=== PATIENT | male | born 1965 | race African-American/Black ===

== ENCOUNTER 2017-08-16 21:39 | Emergency (ER) | payer OTHER ==
--- OUTSIDE RECORDS SUMMARY | 2017-08-16 21:41 | XMS REPORT | Clinical Summary ---
:1965 Author Organization [facility] Address [address] [place] [id number] Phone Care Team Providers Name Role Phone Unavailable Primary Care Provider Unavailable Allergies No Known Allergies Current Medications Not on file Active Problems Not on file Family History Medical History Relation Name Comments Hypertension Father Heart disease Mother Hypertension Mother Diabetes Sister Relation Name Status Comments Father Mother Sister Social History Tobacco Use Types Packs/Day Years Used Date Current Some Day Smoker Alcohol Use Drinks/Week oz/Week Comments No Sex Assigned at Date Recorded Not on file Last Filed Vital Signs Not on file Plan of Treatment Not on file Results Not on fileafter 08/15/2016
--- OUTSIDE RECORDS SUMMARY | 2017-08-16 21:41 | XMS REPORT | Clinical Summary ---
:1965 Author Organization [facility] Address [address] [place] [address] Care Team Providers Name Role Phone Juan Klein MD Primary Care Provider Allergies Not on File Current Medications Not on file Active Problems Not on file Encounters Date Type Specialty Care Team Description 04/23/2017 Lab Lab Juan Klein MD Kidney replaced by transplant ( Primary Dx); Anemia of chronic renal failure, unspecified CKD stage; Hypermagnesemia; Proteinuria, unspecified type; Essential hypertension, malignant; Chronic kidney disease, stage III (moderate); Disorder of phosphorus metabolism 04/23/2017 Abstract Transplant Pat Ferrera RN 2017 Documentation Transplant Nae Posey Kidney Follow-up ( [facility] 20 year TRF ) 12/18/2016 Lab Lab Juan Klein MD Chronic kidney disease, stage III (moderate) (Primary Dx); Essential hypertension, malignant; Proteinuria; Disorder of phosphorus metabolism; Familial lipoprotein deficiency; Hyperkalemia; Kidney replaced by transplant after 08/15/2016 Social History Tobacco Use Types Packs/Day Years Used Date Never Assessed Sex Assigned at Date Recorded Not on file Last Filed Vital Signs Not on file Plan of Treatment Health Maintenance Due Date Last Done Comments COLONOSCOPY 02/28/2016 SHINGRIX VACCINE (#1) 02/28/2016 INFLUENZA VACCINE 11/11/2017 Results Urinalysis screen and microscopy, with reflex to culture (04/23/2017 9:26 AM) Only the most recent of2 resultswithin the time period is included. Component Value Ref Range Specimen site Clean catch Color, UA Straw Appearance, UA Clear Specific gravity, UA 1.023 1.001 - 1.035 pH, UA 6.0 5.0 - 8.5 Protein, UA 3+ (A) Negative Glucose, UA Negative Negative Ketones, UA Negative Negative Bilirubin, UA Negative Negative Blood, UA Moderate (A) Negative Nitrite, UA Negative Negative Urobilinogen, UA <2.0 <2.0 Leukocyte esterase, UA Negative Negative Epithelial cells, UA <1 /HPF WBC, UA 1 0 - 1 /HPF RBC, UA 23 (H) 0 - 1 /HPF Bacteria, UA Few None seen Yeast, UA Few (A) Yeast with pseudohyphae, UA None seen Specimen Performing Laboratory Urine [facility] OF [facility]OMIC MEDICINE [address] [place] [id number] Estimated GFR (04/23/2017 9:26 AM)Only the most recent of2 resultswithin the time period is included. Component Value Ref Range GFR Non Af Amer 79 mL/min/1.73 m2 GFR Af Amer >90 mL/min/1.73 m2 Comment: Chronic kidney disease: <60 mL/min/1.73m2 Kidney failure: <15 mL/min/1.73m2 The estimated GFR is calculated from the IDMS-traceable Modification of Diet in Renal Disease Equation. The accuracy of the calculation is poor when the creatinine is normal. Calculated values >90 mL/min/1.73m2 are not reported. This equation has not been validated in children (<18 years), women, the elderly (>70 years), or ethnic groups other than Caucasians and Americans. Specimen Performing Laboratory Plasma specimen [facility] [address] [address] Cyclosporine A level (04/23/2017 9:26 AM)Only the most recent of2 resultswithin the time period is included. Component Value Ref Range Cyclosporine <30 ng/mL Comment: Unless administered by continuous IV drip, collect a purple top tube just before the next dose. Therapeutic range of approximately 100-500 varies mainly with type of transplant, use of other immunosuppressive agents, and evidence of toxicity or rejection. Test performed using [employer] chemiluminescent microparticle immunoassay for Cyclosporine on the BRAILLE TEACHER i System. Specimen Performing Laboratory Blood [facility] OF PATHOLOG[facility] GENOMIC MEDICINE [address] [place] [id number] Protein, urine, random (04/23/2017 9:26 AM)Only the most recent of2 resultswithin the time period is included. Component Value Ref Range Protein, urine random 201 mg/dL Specimen Performing Laboratory Urine [facility] [address] [place] [address] Creatinine level, urine, random (04/23/2017 9:26 AM)Only the most recent of2 resultswithin the time period is included. Component Value Ref Range Creatinine, urine, random 158 mg/dL Specimen Performing Laboratory Urine [facility] GENOMIC [facility]ICINE [address] [place] [address] CBC with platelet and differential (04/23/2017 9:26 AM)Only the most recent of2 resultswithin the time period is included. Component Value Ref Range WBC 9.75 4.50 - 11.00 k/uL RBC 4.57 4.40 - 6.00 m/uL HGB 14.3 14.0 - 18.0 g/dL HCT 42.7 41.0 - 51.0 % MCV 93.4 82.0 - 100.0 fL MCH 31.3 27.0 - 34.0 pg MCHC 33.5 31.0 - 37.0 g/dL RDW - SD 41.2 37.0 - 55.0 fL MPV 9.0 8.8 - 13.2 fL Platelet count 240 150 - 400 k/uL Nucleated RBC 0.00 /100 WBC Neutrophils 58.6 39.0 - 69.0 % Lymphocytes 29.5 25.0 - 45.0 % Monocytes 7.8 0.0 - 10.0 % Eosinophils 3.2 0.0 - 5.0 % Basophils 0.7 0.0 - 1.0 % Immature granulocytes 0.2Comment: "Immature granulocytes" 0.0 - 1.0 % (promyelocytes, myelocytes, metamyelocytes) Specimen Performing Laboratory Blood [facility] PATH[facility] GENOM[facility] MEDICINE [address] [place] [id number] Urine culture (04/23/2017 9:26 AM)Only the most recent of2 resultswithin the time period is included. Component Value Ref Range Urine culture SEE COMMENTComment: Bacteriuria screen negative. Specimen Performing Laboratory [facility]OM[facility]INE [address] [place] [address] Uric acid level (04/23/2017 9:26 AM)Only the most recent of2 resultswithin the time period is included. Component Value Ref Range Uric acid 6.7 3.4 - 7.0 mg/dL Specimen Performing Laboratory Plasma specimen [facility] DEPART[facility] PATHOLOGY AND [address] [address] Phosphorus level (04/23/2017 9:26 AM)Only the most recent of2 resultswithin the time period is included. Component Value Ref Range Phosphorus 2.1 (L) 2.4 - 4.5 mg/dL Specimen Performing Laboratory Plasma specimen [facility] DEPART[facility] PATHOLOGY [address] [address] Magnesium level (04/23/2017 9:26 AM)Only the most recent of2 resultswithin the time period is included. Component Value Ref Range Magnesium 2.0 1.6 - 2.6 mg/dL Specimen Performing Laboratory Plasma specimen [facility] PATHOLOGY [address] [address] LDH (04/23/2017 9:26 AM)Only the most recent of2 resultswithin the time period is included. Component Value Ref Range LDH 163 87 - 225 U/L Specimen Performing Laboratory Plasma specimen [facility]PART[facility] PATHOLOGY [address] [address] Comprehensive metabolic panel (04/23/2017 9:26 AM)Only the most recent of2 resultswithin the time period is included. Component Value Ref Range Sodium 140 135 - 148 mEq/L Potassium 4.2 3.5 - 5.0 mEq/L Chloride 101 98 - 112 mEq/L CO2 28 24 - 31 mEq/L Anion gap 11 7 - 15 mEq/L Comment: Starting from July , anion gap calculation no longer incorporates potassium. Please note the change. BUN 17 6 - 20 mg/dL Creatinine 1.0 0.7 - 1.2 mg/dL Glucose 96 65 - 99 mg/dL Calcium 9.5 8.3 - 10.2 mg/dL Protein 7.2 6.3 - 8.3 g/dL Comment: 4.6-7.0 g/dL 1 week 4.4-7.6 g/dL 7 months-1year5.1-7.3 g/dL 1-2 years5.6-7.5 g/dL >3 years6.0-8.0 g/dL 18-150 6.3-8.3 g/dL Albumin 3.7 3.5 - 5.0 g/dL A/G ratio 1.1 0.7 - 3.8 Alkaline phosphatase 60 40 - 129 U/L AST 26 10 - 50 U/L ALT 25 5 - 50 U/L Total bilirubin <0.2 0.0 - 1.2 mg/dL Specimen Performing Laboratory Plasma specimen [facility] OF PATHOLOG[facility] GENOMIC MEDICINE [address] [place] [address] after 08/15/2016 Insurance Payer Benefit Plan / Group Subscriber ID Type Phone Address [employer] [facility] xxxxxxxxx [facility] Home: [id number] [phone] [address]
[2017-08-16 22:58] LABS: Protime INR 0.92
[2017-08-16 23:02] LABS: Absolute Monocytes 0.8 K/uL (0.1-1.3); Absolute Neutrophil 7.1 K/uL (1.8-8.0); Basophils % 0.7 % (0-1.3); Eosinophils % 3.7 % (0-4.4); Hematocrit 41.2 % (39.6-49.0); Lymphocytes % 26.1 % (15.3-44.8); MCH 31.3 pg (27.0-35.0); MCV 92.1 fL (80-100); MPV 7.8 fL (7.6-11.3); RBC Red Blood Cell Count 4.48 M/uL (4.33-5.43)
[2017-08-16 23:07] LABS: Bicarbonate 28 mEq/L (21-31); Glucose Level 101 mg/dL (65-120); Potassium 3.6 mEq/L (3.6-5.0); Sodium Level 141 mEq/L (135-145)
[2017-08-16 23:13] LABS: ALT/SGPT 17 IU/L (10-60); AST/SGOT 17 IU/L (10-42); Albumin 3.9 g/dL (3.2-5.5); Alkaline Phosphatase 63 IU/L (42-121); BUN Blood Urea Nitrogen 16 mg/dL (6-20); Bilirubin Direct < 0.1 mg/dL (0-0.2); Bilirubin Total 0.2 mg/dL (0.3-1.2); Creatine Phosphokinase 99 IU/L (22-269); Magnesium 1.8 mg/dL (1.8-2.5); Protein, Total 7.5 g/dL (6.0-8.3)
[2017-08-16 23:15] LABS: CKMB Creatine Kinase MB 1.8 ng/ml (0.3-4.0)
[2017-08-17] MEDS ORDERED: KETOROLAC 30 MG/ML INJ ONE (00:15)
[2017-08-17 01:35] LABS: Urine Blood 2+ (NEG); Urine Glucose NEGATIVE (NEG); Urine Protein 3+ (NEG); Urine Specific Gravity >1.030 (1.005-1.030); Urine pH 5.5 (5.0-7.0)
--- NOTE | 2017-08-17 02:04 | EDPHYS ---
Physician Documentation [facility] Name: Shoaib Freitas Jr Age: 52 yrs Sex: Male : 1965 Arrival Date: 08/16/2017 Time: 21:40 Bed 8 Private MD: ED Physician Santiago Key HPI: 08/16 22:13 This 52 yrs old Black Male presents to ER via Ambulatory with complaints of Chest Pain. ma2 22:13 The patient or guardian reports chest pain that is located primarily in the anterior ma2 chest wall, left. Onset: gradually, 2 week(s) ago. The pain does not radiate. Associated signs and symptoms: Pertinent negatives: abdominal pain, diaphoresis, lower extremity pain. Duration:. The patient has experienced similar episodes in the past. constant chest pain x 2 weeks left sided, had kidney transplant many years ago no other medical problem, smoker with no other health issue . Historical: - Allergies: 21:51 No Known Allergies; aj - Home Meds: 21:51 diltiazem HCl 240 mg Oral cpER 1 cap once daily for Hypertension [Active]; prednisone 5 aj mg Oral tab once daily [Active]; valsartan 40 mg Oral tab 1 tab once daily for Hypertension [Active]; - PMHx: 21:51 Hypertension; kidney transplant; aj - PSHx: 21:51 kidney transplant; aj - Immunization history:: Adult Immunizations up to date. - Social history:: Smoking status: Patient uses tobacco products, smokes one-half pack cigarettes per day, Smoking status: Patient uses Patient/guardian denies using alcohol, street drugs, IV drugs, The patient lives with family, . - Family history:: not pertinent. ROS: 22:13 Constitutional: Negative for fever, chills, and weight loss. ma2 22:13 Cardiovascular: Positive for chest pain. 22:13 All other systems are negative. Exam: 22:13 Constitutional: This is a well developed, well nourished patient who is awake, alert, ma2 and in no acute distress. Head/Face: Normocephalic, atraumatic. Cardiovascular: Regular rate and rhythm with a normal S1 and S2. No gallops, murmurs, or rubs. Normal PMI, no JVD. No pulse deficits. Respiratory: Lungs have equal breath sounds bilaterally, clear to auscultation and percussion. No rales, rhonchi or wheezes noted. No increased work of breathing, no retractions or nasal flaring. Abdomen/GI: Soft, non-tender, with normal bowel sounds. No distension or tympany. No guarding or rebound. No evidence of tenderness throughout. Psych: Awake, alert, with orientation to person, place and time. Behavior, mood, and affect are within normal limits. Vital Signs: 21:51 BP 140 / 94; Pulse 82; Resp 19; Temp 98.3; Pulse Ox 98% on R/A; Weight 93.89 kg; Height aj 5 ft. 11 in. (180.34 cm); 22:06 BP 129 / 86; Pulse 81; Resp 16; Temp 98.3; Pulse Ox 99% on R/A; ak1 23:59 BP 123 / 86; Pulse 68; Resp 16; Pulse Ox 99% on R/A; ak1 08/17 01:32 BP 121 / 97; Pulse 65; Resp 17 S; Pulse Ox 99% on R/A; mt 08/16 21:51 Body Mass Index 28.87 (93.89 kg, 180.34 cm) aj MDM: 08/16 22:13 Differential diagnosis: abnormal EKG, acute myocardial infarction, acute pericarditis, ma2 coronary artery disease costochondritis, gastroesophageal reflux disease (GERD), Meron-Harrington syndrome, stable angina, unstable angina. 22:16 Patient medically screened. [facility] 08/17 02:01 HEART Score: History: Slightly Suspicious (0), ECG: Normal (0), Age: > 45 and < 65 ma2 years (1), Risk Factors: 1 or 2 risk factors (1), Troponin: < or = 1 x Normal Limit (0), Total Score =. SHELLIE Risk Score: not applicable. Data reviewed: vital signs, nurses notes, EMS record, lab test result(s), EKG, radiologic studies. Counseling: I had a detailed discussion with the patient and/or guardian regarding: the historical points, exam findings, and any diagnostic results supporting the discharge/admit diagnosis, the presence of at least one elevated blood pressure reading (>120/80) during this emergency department visit, the need for outpatient follow up. Medical screen evaluation completed. EMTALA emergency medical condition absent. ED course: low risk CP, trop negative x 2 he will f.u with pcp in 1 day for further eval chest pain is atypical and been constant for 2 weeks . 08/16 22:11 Order name: Basic Metabolic Panel; Complete Time: 00:09 [facility] 08/16 22:11 Order name: BNP; Complete Time: 00:09 [facility] 08/16 22:11 Order name: CBC with Diff; Complete Time: 00:09 [facility] 08/16 22:11 Order name: Ckmb; Complete Time: 00:09 [facility] 08/16 22:11 Order name: CPK; Complete Time: 00:09 [facility] 08/16 22:11 Order name: LFT's; Complete Time: 00:09 [facility] 08/16 22:11 Order name: Magnesium; Complete Time: 00:09 [facility] 08/16 22:11 Order name: PT-INR; Complete Time: 00:09 [facility] 08/16 22:11 Order name: Ptt, Activated; Complete Time: 00:09 [facility] 08/16 22:11 Order name: Troponin (emerg Dept Use Only); Complete Time: 00:09 [facility] 08/16 22:11 Order name: XRAY Chest (1 view) [facility] 08/16 23:58 Order name: Urine Dipstick--Ancillary (enter results); Complete Time: 01:41 [facility] 08/17 00:04 Order name: Troponin (emerg Dept Use Only); Complete Time: 02:01 [facility] 08/16 22:11 Order name: EKG; Complete Time: 22:12 [facility] 08/16 22:11 Order name: Cardiac monitoring; Complete Time: 22:18 [facility] 08/16 22:11 Order name: EKG - Nurse/Tech; Complete Time: 22:18 [facility] 08/16 22:11 Order name: IV Saline Lock; Complete Time: 22:44 [facility] 08/16 22:11 Order name: Labs collected and sent; Complete Time: 22:44 [facility] 08/16 22:11 Order name: O2 Per Protocol; Complete Time: 22:20 [facility] 08/16 22:11 Order name: O2 Sat Monitoring; Complete Time: 22:20 [facility] 08/16 22:11 Order name: Urine Dipstick-Ancillary (obtain specimen); Complete Time: 23:52 ma2 Administered Medications: 00:19 Drug: TORadol 30 mg Route: IVP; Site: left hand; ak1 00:21 Follow up: Response: No adverse reaction ak1 Disposition: 08/17/17 02:02 Discharged to Home. Impression: Chest pain, unspecified. - Condition is Stable. - Discharge Instructions: Nonspecific Chest Pain. - Prescriptions for Tylenol- Codeine #3 300-30 mg Oral Tablet - take 2 tablet by ORAL route every 6 hours As needed; 30 tablet. - Medication Reconciliation Form, Thank You Letter, Antibiotic Education, Prescription Opioid Use form. - Follow up: Private Physician; When: Tomorrow; Reason: Continuance of care. - Problem is new. - Symptoms are unchanged. Signatures: Dispatcher [employer] EDManda Castillo RN Brenda Mckeon RN RN ak1 Santiago Key MD MD ma2 Corrections: (The following items were deleted from the chart) 02:21 02:02 08/17/2017 02:02 Discharged to Home. Impression: Chest pain, unspecified. ak1 Condition is Stable. Forms are Medication Reconciliation Form, Thank You Letter, Antibiotic Education, Prescription Opioid Use. Follow up: Private Physician; When: Tomorrow; Reason: Continuance of care. Problem is new. Symptoms are unchanged. ma2
--- NOTE | 2017-08-17 02:04 | ER ---
Nurse's Notes [facility] Name: Shoaib Freitas Jr Age: 52 yrs Sex: Male : 1965 Arrival Date: 08/16/2017 Time: 21:40 Bed 8 Private MD: Diagnosis: Chest pain, unspecified Presentation: 08/16 21:50 Presenting complaint: Patient states: Intermittent sternal chest pain for 2 weeks. aj Transition of care: patient was not received from another setting of care. Onset of symptoms was August 05, 2017. Initial Sepsis Screen: Does the patient meet any 2 criteria? No. Patient's initial sepsis screen is negative. Does the patient have a suspected source of infection? No. Patient's initial sepsis screen is negative. Care prior to arrival: None. 21:50 Method Of Arrival: Ambulatory aj 21:50 Acuity: COBY 3 aj Triage Assessment: 21:51 General: Appears in no apparent distress. comfortable, Behavior is calm, cooperative, aj appropriate for age. Pain: Complains of pain in chest. Neuro: Level of Consciousness is awake, alert, obeys commands, Oriented to person, place, time, situation, Appropriate for age. Cardiovascular: Reports chest pain, Capillary refill < 3 seconds in bilateral fingers Patient's skin is warm and dry. Chest pain episodes are intermittent. Respiratory: Airway is patent Respiratory effort is even, unlabored, Respiratory pattern is regular, symmetrical. Derm: Skin is intact, is healthy with good turgor, Skin is pink, warm \T\ dry. normal. Historical: - Allergies: 21:51 No Known Allergies; aj - Home Meds: 21:51 diltiazem HCl 240 mg Oral cpER 1 cap once daily for Hypertension [Active]; prednisone 5 aj mg Oral tab once daily [Active]; valsartan 40 mg Oral tab 1 tab once daily for Hypertension [Active]; - PMHx: 21:51 Hypertension; kidney transplant; aj - PSHx: 21:51 kidney transplant; aj - Immunization history:: Adult Immunizations up to date. - Social history:: Smoking status: Patient uses tobacco products, smokes one-half pack cigarettes per day, Smoking status: Patient uses Patient/guardian denies using alcohol, street drugs, IV drugs, The patient lives with family, . - Family history:: not pertinent. Screenin:06 Abuse screen: Denies threats or abuse. Denies injuries from another. Nutritional ak1 screening: No deficits noted. Tuberculosis screening: No symptoms or risk factors identified. Fall Risk None identified. Assessment: 22:05 Reassessment: Patient appears in no apparent distress at this time. Patient and/or ak1 family updated on plan of care and expected duration. Pain level reassessed. Patient is alert, oriented x 3, equal unlabored respirations, skin warm/dry/pink. General: Appears in no apparent distress. Behavior is calm, cooperative, pt on phone when walking to ER8. Pain: Complains of pain in back and chest Pain does not radiate. 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 Neuro: No deficits noted. Cardiovascular: Heart tones S1 S2 present Capillary refill < 3 seconds Patient's skin is warm and dry. 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 Respiratory: No deficits noted. GI: No signs and/or symptoms were reported involving the gastrointestinal system. : No signs and/or symptoms were reported regarding the genitourinary system. EENT: No signs and/or symptoms were reported regarding the EENT system. Derm: No signs and/or symptoms reported regarding the dermatologic system. 23:30 Reassessment: Patient appears in no apparent distress at this time. Patient and/or ak1 family updated on plan of care and expected duration. Pain level reassessed. Patient is alert, oriented x 3, equal unlabored respirations, skin warm/dry/pink. 08/17 01:00 Reassessment: Patient appears in no apparent distress at this time. No changes from ak1 previously documented assessment. Patient and/or family updated on plan of care and expected duration. Pain level reassessed. Patient is alert, oriented x 3, equal unlabored respirations, skin warm/dry/pink. 02:16 Reassessment: Patient appears in no apparent distress at this time. No changes from ak1 previously documented assessment. Patient and/or family updated on plan of care and expected duration. Pain level reassessed. Patient is alert, oriented x 3, equal unlabored respirations, skin warm/dry/pink. Vital Signs: 08/16 21:51 BP 140 / 94; Pulse 82; Resp 19; Temp 98.3; Pulse Ox 98% on R/A; Weight 93.89 kg; Height aj 5 ft. 11 in. (180.34 cm); 22:06 BP 129 / 86; Pulse 81; Resp 16; Temp 98.3; Pulse Ox 99% on R/A; ak1 23:59 BP 123 / 86; Pulse 68; Resp 16; Pulse Ox 99% on R/A; ak1 08/17 01:32 BP 121 / 97; Pulse 65; Resp 17 S; Pulse Ox 99% on R/A; mt 08/16 21:51 Body Mass Index 28.87 (93.89 kg, 180.34 cm) ED Course: 08/16 21:40 Patient arrived in ED. ds1 21:45 Santiago Key MD is Attending Physician. ma2 21:51 Triage completed. aj 21:51 Arm band placed on left wrist. Patient placed in an exam room. aj 22:04 Brenda Medina, RN is Primary Nurse. ak1 22:07 Patient has correct armband on for positive identification. Bed in low position. Call ak1 light in reach. Side rails up X 1. Adult w/ patient. library monitor on. Pulse ox on. NIBP on. 22:07 Patient maintains SpO2 saturation greater than 95% on room air. ak1 22:19 EKG done, by ED staff, reviewed by Santiago Key MD. cb2 22:45 Initial lab(s) drawn, by me, sent to lab. Inserted saline lock: 22 gauge in left hand, cb2 using aseptic technique. Blood collected. Missed attempt(s): 20 gauge in right antecubital area. Bleeding controlled, band aid applied, catheter tip intact. 22:46 XRAY Chest (1 view) In Process Unspecified. EDMS 08/17 00:23 Door closed. Lights dimmed. Warm blanket given. PO fluids given. ak1 02:17 No provider procedures requiring assistance completed. ak1 02:21 IV discontinued, intact, bleeding controlled, No redness/swelling at site. Pressure ak1 dressing applied. Administered Medications: 00:19 Drug: TORadol 30 mg Route: IVP; Site: left hand; ak1 00:21 Follow up: Response: No adverse reaction ak1 Outcome: 02:02 Discharge ordered by . ma2 02:17 Discharged to home ambulatory, with family. ak1 02:17 Condition: stable 02:17 Discharge instructions given to patient, Instructed on discharge instructions, follow up and referral plans. no drinking with medication, no driving heavy equipment, medication usage, Demonstrated understanding of instructions, follow-up care, medications, Prescriptions given X 1. 02:21 Patient left the ED. ak1 Signatures: Dispatcher [employer] Manda Hurtado, Holli Cohn RN1 Brenda Medina RN RN ak1 Raghavendra [place] Santiago Jimenez MD MD ma2
[2017-08-17 02:25] VITALS: TEMP 98.3
[2017-08-17 02:26] VITALS: O2SAT 99
[2017-08-17 02:28] VITALS: BP 121/97
--- NOTE | 2017-08-17 06:54 | EKG ---
Test Date: 2017-08-16 Test Time: 22:14:48 Operational Risk Consultant: SOFIA MEASUREMENT RESULTS: Intervals: Rate: 75 TX: 164 QRSD: 102 QT: 372 QTc: 415 [place]: P: 41 TX: 164 QRS: 12 T: 30 INTERPRETIVE STATEMENTS: Normal sinus rhythm Normal ECG Compared to ECG 06/04/2017 16:13:33 No significant changes Electronically Signed On 08-17-17 06:53:38 CDT by Snudar Roa
--- NOTE | 2017-08-17 08:02 | RAD REPORT ---
EXAM DESCRIPTION: [place] Single View08/16/2017 10:47 pm CLINICAL HISTORY: Chest pain COMPARISON: December 2016 FINDINGS: The lungs appear clear of acute infiltrate. The heart is borderline enlarged IMPRESSION: No acute abnormalities displayed
== END 2017-08-17 02:21 | disposition home or self-care (01) ==
LOC: ER 21:39
DX: R07.9 Chest pain, unspecified (principal); I10 Essential (primary) hypertension; F17.210 Nicotine dependence, cigarettes, uncomplicated; Z94.0 Kidney transplant status
CPT/HCPCS: 36415; 71045; 80048; 80076; 81003; 82550; 82553; 83735; 83880; 84484; 85025; 85610; 85730; 93005; 96374; 99285

== ENCOUNTER 2017-10-16 12:21 | Emergency (ER) | payer OTHER ==
--- OUTSIDE RECORDS SUMMARY | 2017-10-16 12:23 | XMS REPORT | Clinical Summary ---
:1965 Author Organization [facility] Address [address] [place] [id number] Phone Care Team Providers Name Role Phone [...] Not on file Results Not on fileafter 10/15/2016
--- OUTSIDE RECORDS SUMMARY | 2017-10-16 12:23 | XMS REPORT | Clinical Summary ---
:1965 Author Organization [facility] Address [address] [place] [address] Care Team Providers Name Role Phone Juan Klein MD Primary Care Provider Allergies Not on File Current Medications Not on file Active Problems Not on file Encounters Date Type Specialty Care Team Description 09/28/2017 Lab Juan Zuniga MD Kidney replaced by transplant ( Primary Dx); Anemia of chronic renal failure, unspecified CKD stage; Hypermagnesemia; Proteinuria, unspecified type; Essential hypertension, malignant; Chronic kidney disease, stage III (moderate); Disorder of phosphorus metabolism 04/23/2017 Lab Juan Zuniga MD Kidney replaced by transplant ( Primary Dx); Anemia of chronic renal failure, unspecified CKD stage; Hypermagnesemia; Proteinuria, unspecified type; Essential hypertension, malignant; Chronic kidney disease, stage III (moderate); Disorder of phosphorus metabolism 04/23/2017 Abstract Transplant Pat Ferrera RN 2017 Documentation Transplant [facility] Kidney Follow-up ( [facility] 20 year TRF ) 12/18/2016 Lab Juan Zuniga MD Chronic kidney disease, stage III (moderate) (Primary Dx); Essential hypertension, malignant; Proteinuria; Disorder of phosphorus metabolism; Familial lipoprotein deficiency; Hyperkalemia; Kidney replaced by transplant after 10/15/2016 Social History Tobacco Use Types Packs/Day Years Used Date Never Assessed Sex Assigned at Date Recorded Not on file Last Filed Vital Signs Not on file Plan of Treatment Health Maintenance Due Date Last Done Comments COLON CANCER SCREENING 02/28/2016 SHINGRIX VACCINE (#1) 02/28/2016 INFLUENZA VACCINE 11/11/2017 Procedures Procedure Name Priority Date/Time Associated Comments Diagnosis ESTIMATED GFR Routine 09/28/2017 8:05 Results for this AM CDT procedure are in the results section. FK506 LEVEL Routine 09/28/2017 8:05 Kidney replaced by Results for this AM CDT transplant procedure are in Anemia of chronic the results renal failure, section. unspecified CKD stage Hypermagnesemia Proteinuria, unspecified type Essential hypertension, malignant Chronic kidney disease, stage III (moderate) Disorder of phosphorus metabolism COMPREHENSIVE Routine 09/28/2017 8:05 Kidney replaced by Results for this METABOLIC PANEL AM CDT transplant procedure are in Anemia of chronic the results renal failure, section. unspecified CKD stage Hypermagnesemia Proteinuria, unspecified type Essential hypertension, malignant Chronic kidney disease, stage III (moderate) Disorder of phosphorus metabolism PROTEIN, URINE, RANDOM Routine 09/28/2017 8:05 Kidney replaced by Results for this AM CDT transplant procedure are in Anemia of chronic the results renal failure, section. unspecified CKD stage Hypermagnesemia Proteinuria, unspecified type Essential hypertension, malignant Chronic kidney disease, stage III (moderate) Disorder of phosphorus metabolism CREATININE LEVEL, Routine 09/28/2017 8:05 Kidney replaced by Results for this URINE, RANDOM AM CDT transplant procedure are in Anemia of chronic the results renal failure, section. unspecified CKD stage Hypermagnesemia Proteinuria, unspecified type Essential hypertension, malignant Chronic kidney disease, stage III (moderate) Disorder of phosphorus metabolism URINALYSIS SCREEN AND Routine 09/28/2017 8:05 Kidney replaced by Results for this MICROSCOPY, WITH AM CDT transplant procedure are in REFLEX TO CULTURE Anemia of chronic the results renal failure, section. unspecified CKD stage Hypermagnesemia Proteinuria, unspecified type Essential hypertension, malignant Chronic kidney disease, stage III (moderate) Disorder of phosphorus metabolism LDH Routine 09/28/2017 8:05 Kidney replaced by Results for this AM CDT transplant procedure are in Anemia of chronic the results renal failure, section. unspecified CKD stage Hypermagnesemia Proteinuria, unspecified type Essential hypertension, malignant Chronic kidney disease, stage III (moderate) Disorder of phosphorus metabolism URIC ACID LEVEL Routine 09/28/2017 8:05 Kidney replaced by Results for this AM CDT transplant procedure are in Anemia of chronic the results renal failure, section. unspecified CKD stage Hypermagnesemia Proteinuria, unspecified type Essential hypertension, malignant Chronic kidney disease, stage III (moderate) Disorder of phosphorus metabolism PHOSPHORUS LEVEL Routine 09/28/2017 8:05 Kidney replaced by Results for this AM CDT transplant procedure are in Anemia of chronic the results renal failure, section. unspecified CKD stage Hypermagnesemia Proteinuria, unspecified type Essential hypertension, malignant Chronic kidney disease, stage III (moderate) Disorder of phosphorus metabolism MAGNESIUM LEVEL Routine 09/28/2017 8:05 Kidney replaced by Results for this AM CDT transplant procedure are in Anemia of chronic the results renal failure, section. unspecified CKD stage Hypermagnesemia Proteinuria, unspecified type Essential hypertension, malignant Chronic kidney disease, stage III (moderate) Disorder of phosphorus metabolism HC COMPLETE BLD COUNT Routine 09/28/2017 8:05 Kidney replaced by Results for this W/AUTO DIFF AM CDT transplant procedure are in Anemia of chronic the results renal failure, section. unspecified CKD stage Hypermagnesemia Proteinuria, unspecified type Essential hypertension, malignant Chronic kidney disease, stage III (moderate) Disorder of phosphorus metabolism URINE CULTURE Routine 09/28/2017 8:05 Results for this AM CDT procedure are in the results section. ESTIMATED GFR Routine 04/23/2017 9:26 Results for this AM CAN CUTTER procedure are in the results section. CYCLOSPORINE A LEVEL Routine 04/23/2017 9:26 Kidney replaced by Results for this AM CAN CUTTER transplant procedure are in Anemia of chronic the results renal failure, section. unspecified CKD stage Hypermagnesemia Proteinuria, unspecified type Essential hypertension, malignant Chronic kidney disease, stage III (moderate) Disorder of phosphorus metabolism PROTEIN, URINE, RANDOM Routine 04/23/2017 9:26 Kidney replaced by Results for this AM CAN CUTTER transplant procedure are in Anemia of chronic the results renal failure, section. unspecified CKD stage Hypermagnesemia Proteinuria, unspecified type Essential hypertension, malignant Chronic kidney disease, stage III (moderate) Disorder of phosphorus metabolism CREATININE LEVEL, Routine 04/23/2017 9:26 Kidney replaced by Results for this URINE, RANDOM AM CAN CUTTER transplant procedure are in Anemia of chronic the results renal failure, section. unspecified CKD stage Hypermagnesemia Proteinuria, unspecified type Essential hypertension, malignant Chronic kidney disease, stage III (moderate) Disorder of phosphorus metabolism URINALYSIS SCREEN AND Routine 04/23/2017 9:26 Kidney replaced by Results for this MICROSCOPY, WITH AM CAN CUTTER transplant procedure are in REFLEX TO CULTURE Anemia of chronic the results renal failure, section. unspecified CKD stage Hypermagnesemia Proteinuria, unspecified type Essential hypertension, malignant Chronic kidney disease, stage III (moderate) Disorder of phosphorus metabolism LDH Routine 04/23/2017 9:26 Kidney replaced by Results for this AM CAN CUTTER transplant procedure are in Anemia of chronic the results renal failure, section. unspecified CKD stage Hypermagnesemia Proteinuria, unspecified type Essential hypertension, malignant Chronic kidney disease, stage III (moderate) Disorder of phosphorus metabolism URIC ACID LEVEL Routine 04/23/2017 9:26 Kidney replaced by Results for this AM CAN CUTTER transplant procedure are in Anemia of chronic the results renal failure, section. unspecified CKD stage Hypermagnesemia Proteinuria, unspecified type Essential hypertension, malignant Chronic kidney disease, stage III (moderate) Disorder of phosphorus metabolism PHOSPHORUS LEVEL Routine 04/23/2017 9:26 Kidney replaced by Results for this AM CAN CUTTER transplant procedure are in Anemia of chronic the results renal failure, section. unspecified CKD stage Hypermagnesemia Proteinuria, unspecified type Essential hypertension, malignant Chronic kidney disease, stage III (moderate) Disorder of phosphorus metabolism MAGNESIUM LEVEL Routine 04/23/2017 9:26 Kidney replaced by Results for this AM CAN CUTTER transplant procedure are in Anemia of chronic the results renal failure, section. unspecified CKD stage Hypermagnesemia Proteinuria, unspecified type Essential hypertension, malignant Chronic kidney disease, stage III (moderate) Disorder of phosphorus metabolism COMPREHENSIVE Routine 04/23/2017 9:26 Kidney replaced by Results for this METABOLIC PANEL AM CAN CUTTER transplant procedure are in Anemia of chronic the results renal failure, section. unspecified CKD stage Hypermagnesemia Proteinuria, unspecified type Essential hypertension, malignant Chronic kidney disease, stage III (moderate) Disorder of phosphorus metabolism HC COMPLETE BLD COUNT Routine 04/23/2017 9:26 Kidney replaced by Results for this W/AUTO DIFF AM CAN CUTTER transplant procedure are in Anemia of chronic the results renal failure, section. unspecified CKD stage Hypermagnesemia Proteinuria, unspecified type Essential hypertension, malignant Chronic kidney disease, stage III (moderate) Disorder of phosphorus metabolism URINE CULTURE Routine 04/23/2017 9:26 Results for this AM CAN CUTTER procedure are in the results section. ESTIMATED GFR Routine 12/18/2016 7:56 Results for this AM CDT procedure are in the results section. CYCLOSPORINE A LEVEL Routine 12/18/2016 7:56 Chronic kidney Results for this AM CDT disease, stage III procedure are in (moderate) the results Essential section. 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 hypertension, malignant Proteinuria Disorder of phosphorus metabolism Familial lipoprotein deficiency Hyperkalemia Kidney replaced by transplant URINALYSIS SCREEN AND Routine 12/18/2016 7:56 Chronic kidney Results for this MICROSCOPY, WITH AM CDT disease, stage III procedure are in REFLEX TO CULTURE (moderate) the results Essential section. hypertension, malignant Proteinuria Disorder of phosphorus metabolism Familial lipoprotein deficiency Hyperkalemia Kidney replaced by transplant LDH Routine 12/18/2016 7:56 Chronic kidney Results for this AM CDT disease, stage III procedure are in (moderate) the results Essential section. hypertension, malignant Proteinuria Disorder of phosphorus metabolism Familial lipoprotein deficiency Hyperkalemia Kidney replaced by transplant URIC ACID LEVEL Routine 12/18/2016 7:56 Chronic kidney Results for this AM CDT disease, stage III procedure are in (moderate) the results Essential section. hypertension, malignant Proteinuria Disorder of phosphorus metabolism Familial lipoprotein deficiency Hyperkalemia Kidney replaced by transplant PHOSPHORUS LEVEL Routine 12/18/2016 7:56 Chronic kidney Results for this AM CDT disease, stage III procedure are in (moderate) the results Essential section. hypertension, malignant Proteinuria Disorder of phosphorus metabolism Familial lipoprotein deficiency Hyperkalemia Kidney replaced by transplant MAGNESIUM LEVEL Routine 12/18/2016 7:56 Chronic kidney Results for this AM CDT disease, stage III procedure are in (moderate) the results Essential section. hypertension, malignant Proteinuria Disorder of phosphorus metabolism Familial lipoprotein deficiency Hyperkalemia Kidney replaced by transplant COMPREHENSIVE Routine 12/18/2016 7:56 Chronic kidney Results for this METABOLIC PANEL AM CDT disease, stage III procedure are in (moderate) the results Essential section. hypertension, malignant Proteinuria Disorder of phosphorus metabolism Familial lipoprotein deficiency Hyperkalemia Kidney replaced by transplant HC COMPLETE BLD COUNT Routine 12/18/2016 7:56 Chronic kidney Results for this W/AUTO DIFF AM CDT disease, stage III procedure are in (moderate) the results Essential section. hypertension, malignant Proteinuria Disorder of phosphorus metabolism Familial lipoprotein deficiency Hyperkalemia Kidney replaced by transplant URINE CULTURE Routine 12/18/2016 7:56 Results for this AM CDT procedure are in the results section. after 10/15/2016 Results Urinalysis screen and microscopy, with reflex to culture (09/28/2017 8:05 AM) Only the most recent of3 resultswithin the time period is included. Specimen site Clean catch [facility]OLOG[facility] GENOMIC MEDICINE Color, UA Yellow [facility] Appearance, UA Clear [facility] GENOMIC MEDICINE Specific gravity, UA 1.019 1.001 - 1.035 [facility] GENOMIC MEDICINE pH, UA 6.0 5.0 - 8.5 [facility] GENOMIC MEDICINE Protein, UA 3+ (A) Negative [facility] GENOM[facility] MEDICINE Glucose, UA Negative Negative [facility] GENOMIC MEDICINE Ketones, UA Negative Negative [facility]IC[facility] Bilirubin, UA Negative Negative [facility]IC[facility] Blood, UA Moderate (A) Negative [facility] Nitrite, UA Negative Negative [facility]IC[facility] Urobilinogen, UA 4.0 (A) <2.0 [facility]IC[facility] Leukocyte esterase, UA Negative Negative [facility] Epithelial cells, UA <1 /HPF [facility]IC[facility] WBC, UA 3 (H) 0 - 1 /HPF [facility]IC[facility] RBC, UA 61 (H) 0 - 5 /HPF [facility]OM[facility]IC[facility] Bacteria, UA Few None seen [facility]IC[facility] Yeast, UA Few (A) [facility] Yeast with pseudohyphae, UA None seen [facility]IC[facility] Hyaline casts, UA 3 /LPF [facility] GENOMIC MEDICINE Specimen Urine Performing Organization Address City/State/Zipcode Phone Number [facility] OF PATHOLOGY AND [address] [place] [address] [employer] [facility] Estimated GFR (09/28/2017 8:05 AM)Only the most recent of3 resultswithin the time period is included. GFR Non Af Amer 70 mL/min/1.73 m2 [facility] GENOMIC MEDICINE GFR Af Amer 85 mL/min/1.73 m2 [facility] DEPARTMENT OF Comment: PATHOLOGY AND GENOMIC Chronic kidney disease: <60 mL/min/1.73m2 MEDICINE Kidney failure: <15 mL/min/1.73m2 The estimated GFR is calculated from the IDMS-traceable Modification of Diet in Renal Disease Equation. The accuracy of the calculation is poor when the creatinine is normal. Calculated values >90 mL/min/1.73m2 are not reported. This equation has not been validated in children (<18 years), women, the elderly (>70 years), or ethnic groups other than Caucasians and Americans. Specimen Plasma specimen Performing Organization Address [facility] [place] Phone Number [facility] PATHOLOGY AND [address] [place] [address] FK506 level (09/28/2017 8:05 AM) FK506 level <2.0 ng/mL [facility] PATHOLOGY Comment: AND [employer] MEDICINE Therapeutic range 5-20 ng/mL for 12 hour trough. The range varies depending on the organ transplanted, time after transplantation and co-administered immunosuppressant therapies. Please use clinical judgment to interpret test result. Test performed using [employer] chemiluminescent microparticle immunoassay for Tacrolimus on the [employer] i System. Specimen Blood Performing Organization Address [facility] [place] Phone Number [facility] OF PATHOLOGY AND [address] [place] [address] Protein, urine, random (09/28/2017 8:05 AM)Only the most recent of3 resultswithin the time period is included. Protein, urine random 187 mg/dL [facility]PART[facility] OF PATHOLOGY AND [facility] MEDICINE Specimen Urine Performing Organization Address [facility] Phone Number [facility]Y AND [address] [place] [address] Creatinine level, urine, random (09/28/2017 8:05 AM)Only the most recent of3 resultswithin the time period is included. Creatinine, urine, random 184 mg/dL [facility] OF PATHOLOGY AND [facility] MEDICINE Specimen Urine Performing Organization Address [facility] [place] Phone Number [facility] OF PATHOLOGY AND [address] [place] [address] CBC with platelet and differential (09/28/2017 8:05 AM)Only the most recent of3 resultswithin the time period is included. WBC 9.46 4.50 - 11.00 k/uL [facility] GENOMIC MEDIC[facility] RBC 4.28 (L) 4.40 - 6.00 m/uL [facility] GENOMIC MEDICINE HGB 13.2 (L) 14.0 - 18.0 g/dL [facility] GENOMIC MEDICINE HCT 38.7 (L) 41.0 - 51.0 % [facility] GENOMIC MEDICINE MCV 90.4 82.0 - 100.0 fL [facility] GENOMIC MEDICINE MCH 30.8 27.0 - 34.0 pg [facility]OLOGY AND GENOMIC MEDICINE MCHC 34.1 31.0 - 37.0 g/dL [facility] PATHOLOGY AND GENOMIC MEDICINE RDW - SD 38.5 37.0 - 55.0 fL [facility]OLOGY AND GENOMIC MEDICINE MPV 9.3 8.8 - 13.2 fL [facility] AND GENOMIC MEDICINE Platelet count 267 150 - 400 k/uL [facility] AND GENOMIC MEDICINE Nucleated RBC 0.00 /100 WBC [facility]OLOGY AND GENOMIC MEDICINE Neutrophils 57.7 39.0 - 69.0 % [facility] GENOMIC MEDICINE Lymphocytes 29.1 25.0 - 45.0 % [facility]OLOGY [facility] GENOMIC MEDICINE Monocytes 7.8 0.0 - 10.0 % [facility] GENOMIC MEDICINE Eosinophils 4.2 0.0 - 5.0 % [facility] GENOMIC MEDICINE Basophils 1.0 0.0 - 1.0 % [facility] GENOMIC MEDICINE Immature granulocytes 0.2Comment: 0.0 - 1.0 % [facility] DEPART[facility] OF "Immature PATHOLOGY AND GENOMIC granulocytes" MEDICINE (promyelocytes, myelocytes, metamyelocytes) Specimen Blood Performing Organization Address City/[facility]/Zipcode Phone Number [facility]PARTMENT OF PATHOLOGY AND [address] [place] [phone] [employer] [facility] Urine culture (09/28/2017 8:05 AM)Only the most recent of3 resultswithin the time period is included. Urine culture SEE COMMENTComment: Bacteriuria [facility] DEPART[facility] OF PATHOLOGY screen negative. AND GENOMIC MEDICINE Performing Organization Address City/[facility]/Zipcode Phone Number [facility] DEPARTMENT OF PATHOLOGY AND [address] [place] [phone] GENOMIC MEDICINE Uric acid level (09/28/2017 8:05 AM)Only the most recent of3 resultswithin the time period is included. Uric acid 5.6 3.4 - 7.0 mg/dL [facility] OF PATHOLOGY AND GENOMIC MEDICINE Specimen Plasma specimen Performing Organization Address [facility] [place] Phone Number [facility] DEPARTMENT OF PATHOLOGY AND [address] [place] [address] GENOMIC MEDICINE Phosphorus level (09/28/2017 8:05 AM)Only the most recent of3 resultswithin the time period is included. Phosphorus 1.9 (L) 2.4 - 4.5 mg/dL [facility] OF PATHOLOGY AND GENOMIC MEDICINE Specimen Plasma specimen Performing Organization Address [facility] [place] Phone Number [facility] OF PATHOLOGY AND [address] [place] [address] Magnesium level (09/28/2017 8:05 AM)Only the most recent of3 resultswithin the time period is included. Magnesium 2.0 1.6 - 2.6 mg/dL [facility] OF PATHOLOGY AND GENOMIC MEDICINE Specimen Plasma specimen Performing Organization Address [facility] [place] Phone Number [facility] OF PATHOLOGY AND [address] [place] [address] MEDICINE LDH (09/28/2017 8:05 AM)Only the most recent of3 resultswithin the time period is included. LDH 185 87 - 225 U/L [facility] OF PATHOLOGY AND GENOMIC MEDICINE Specimen Plasma specimen Performing Organization Address [facility] [place] Phone Number [facility] OF PATHOLOGY AND [address] [place] [address] Comprehensive metabolic panel (09/28/2017 8:05 AM)Only the most recent of3 resultswithin the time period is included. Sodium 141 135 - 148 mEq/L [facility] PATHOLOGY AND GENOMIC MEDICINE Potassium 3.8 3.5 - 5.0 mEq/L [facility] PATHOLOGY AND GENOMIC MEDICINE Chloride 105 98 - 112 mEq/L [facility] OF PATHOLOGY AND GENOMIC MEDICINE CO2 27 24 - 31 mEq/L [facility] PATHOLOGY AND GENOMIC MEDICINE Anion gap 9@ANIO 7 - 15 mEq/L [facility] OF PATHOLOGY AND GENOMIC MEDICINE BUN 15 6 - 20 mg/dL [facility] PATHOLOGY AND GENOMIC MEDICINE Creatinine 1.1 0.7 - 1.2 mg/dL [facility] PATHOLOGY AND GENOMIC MEDICINE Glucose 94 65 - 99 mg/dL [facility] OF PATHOLOGY AND GENOMIC MEDICINE Calcium 10.2 8.3 - 10.2 mg/dL [facility] OF PATHOLOGY AND GENOMIC MEDICINE Protein 7.1 6.3 - 8.3 g/dL [facility] DEPARTMENT OF Comment: PATHOLOGY AND GENOMIC 4.6-7.0 g/dL MEDICINE 1 week 4.4-7.6 g/dL 7 months-1year5.1-7.3 g/dL 1-2 years5.6-7.5 g/dL >3 years6.0-8.0 g/dL 18-150 6.3-8.3 g/dL Albumin 3.3 (L) 3.5 - 5.0 g/dL [facility] OF PATHOLOGY AND GENOMIC MEDICINE A/G ratio 0.9 0.7 - 3.8 [facility] OF PATHOLOGY AND GENOMIC MEDICINE Alkaline phosphatase 63 40 - 129 U/L [facility] OF PATHOLOGY AND GENOMIC MEDICINE AST 20 10 - 50 U/L [facility] DEPARTMENT OF PATHOLOGY AND GENOMIC MEDICINE ALT 14 5 - 50 U/L [facility] OF PATHOLOGY AND GENOMIC MEDICINE Total bilirubin 0.4 0.0 - 1.2 mg/dL [facility] OF PATHOLOGY AND GENOMIC MEDICINE Specimen Plasma specimen Performing Organization Address City/[facility] Phone Number [facility]PART[facility] OF PATHOLOGY AND [address] [place] [address] Cyclosporine A level (04/23/2017 9:26 AM)Only the most recent of2 resultswithin the time period is included. Cyclosporine <30 ng/mL [facility]PARTMENT OF PATHOLOGY Comment: AND GENOMIC MEDICINE Unless administered by continuous IV drip, collect a purple top tube just before the next dose. Therapeutic range of approximately 100-500 varies mainly with type of transplant, use of other immunosuppressive agents, and evidence of toxicity or rejection. Test performed using [employer] chemiluminescent microparticle immunoassay for Cyclosporine on the [employer] i System. Specimen Blood Performing Organization Address City/State/Zipcode Phone Number [facility]PARTMENT OF PATHOLOGY AND [address] [id number] [employer] [facility] after 10/15/2016 Insurance Payer Benefit Plan / Group Subscriber ID Type Phone Address [facility] [employer] [facility] xxxxxxxxx O [phone] [facility] [address] [place] [address]
[2017-10-16] MEDS ORDERED: KETOROLAC 30 MG/ML INJ ONE (13:22)
[2017-10-16] MEDS ORDERED: HYDROCODONE/APAP 7.5/325 MG TAB ONE (13:40)
--- NOTE | 2017-10-16 13:51 | RAD REPORT ---
EXAM DESCRIPTION: RAD - Chest Single View - 10/16/2017 1:38 pm CLINICAL HISTORY: Back pain, smoking history, hypertension COMPARISON: August 16 TECHNIQUE: AP portable chest image was obtained 1334 hours . FINDINGS: No mass, consolidation or failure finding. Lung markings are similar to the comparison. He art and vasculature are normal. No measurable pleural effusion and no pneumothorax. No gross bony abn ormality seen. No acute aortic findings suspected. IMPRESSION: No acute cardiopulmonary process. No significant interval change.
--- NOTE | 2017-10-16 13:59 | EDPHYS ---
Physician Documentation [facility] Name: Shoaib Freitas Jr Age: 52 yrs Sex: Male : 1965 Arrival Date: 10/16/2017 Time: 12:24 Bed 26 Private MD: out of town, doctor ED Physician Sebas Stephenson HPI: 10/16 13:56 This 52 yrs old Black Male presents to ER via Ambulatory with complaints of Back Pain. jr8 13:56 The patient presents with pain that is acute. The symptoms are located in the left jr8 scapular area, right scapular area, left subscapular area, right subscapular area, left mid back and right mid back. Onset: The symptoms/episode began/occurred gradually, 1 week(s) ago. The pain does not radiate. Associated signs and symptoms: The patient has no apparent associated signs or symptoms. The problem was sustained from unknown cause. Modifying factors: The patient symptoms are alleviated by nothing, the patient symptoms are aggravated by movement. Severity of symptoms: At their worst the symptoms were mild, in the emergency department the symptoms are unchanged. The patient has not experienced similar symptoms in the past. The patient has not recently seen a physician. Stated that he does a lot of repetitive motion at work. Historical: - Allergies: 12:31 No Known Allergies; aj - Home Meds: 12:31 diltiazem HCl 240 mg Oral cpER 1 cap once daily for Hypertension [Active]; prednisone 5 aj mg Oral tab once daily [Active]; valsartan 40 mg Oral tab 1 tab once daily for Hypertension [Active]; - PMHx: 12:31 Hypertension; kidney transplant; aj - PSHx: 12:31 kidney transplant; aj - Immunization history:: Adult Immunizations up to date. - Social history:: Smoking status: Patient uses tobacco products, smokes one-half pack cigarettes per day. - Ebola Screening: : Patient negative for fever greater than or equal to 101.5 degrees Fahrenheit, and additional compatible Ebola Virus Disease symptoms Patient denies exposure to infectious person Patient denies travel to an Ebola-affected area in the 21 days before illness onset No symptoms or risks identified at this time. ROS: 13:56 Eyes: Negative for injury, pain, redness, and discharge, ENT: Negative for injury, jr8 pain, and discharge, Neck: Negative for injury, pain, and swelling, Cardiovascular: Negative for chest pain, palpitations, and edema, Respiratory: Negative for shortness of breath, cough, wheezing, and pleuritic chest pain, Abdomen/GI: Negative for abdominal pain, nausea, vomiting, diarrhea, and constipation, MS/Extremity: Negative for injury and deformity, Skin: Negative for injury, rash, and discoloration, Neuro: Negative for headache, weakness, numbness, tingling, and seizure. 13:56 Back: Positive for pain at rest, pain with movement, of the left scapular area, right scapular area, left subscapular area, right subscapular area, left mid back and right mid back. Exam: 13:56 Eyes: Pupils equal round and reactive to light, extra-ocular motions intact. Lids and jr8 lashes normal. Conjunctiva and sclera are non-icteric and not injected. Cornea within normal limits. Periorbital areas with no swelling, redness, or edema. ENT: Nares patent. No nasal discharge, no septal abnormalities noted. Tympanic membranes are normal and external auditory canals are clear. Oropharynx with no redness, swelling, or masses, exudates, or evidence of obstruction, uvula midline. Mucous membranes moist. Neck: Trachea midline, no thyromegaly or masses palpated, and no cervical lymphadenopathy. Supple, full range of motion without nuchal rigidity, or vertebral point tenderness. No Meningismus. Cardiovascular: Regular rate and rhythm with a normal S1 and S2. No gallops, murmurs, or rubs. Normal PMI, no JVD. No pulse deficits. Respiratory: Lungs have equal breath sounds bilaterally, clear to auscultation and percussion. No rales, rhonchi or wheezes noted. No increased work of breathing, no retractions or nasal flaring. Abdomen/GI: Soft, non-tender, with normal bowel sounds. No distension or tympany. No guarding or rebound. No evidence of tenderness throughout. Skin: Warm, dry with normal turgor. Normal color with no rashes, no lesions, and no evidence of cellulitis. MS/ Extremity: Pulses equal, no cyanosis. Neurovascular intact. Full, normal range of motion. Neuro: Awake and alert, GCS 15, oriented to person, place, time, and situation. Cranial nerves II-XII grossly intact. Motor strength 5/5 in all extremities. Sensory grossly intact. Cerebellar exam normal. Normal gait. 13:56 Back: pain, that is mild, of the left scapular area, right scapular area, left subscapular area, right subscapular area, left mid back and right mid back, ROM is painful, normal spinal alignment noted, vertebral tenderness, is not appreciated, muscle spasm, is appreciated in the left mid back and right mid back. Vital Signs: 12:31 BP 145 / 88; Pulse 68; Resp 20; Temp 98.4; Pulse Ox 99% on R/A; Weight 99.79 kg; Height aj 5 ft. 11 in. (180.34 cm); 13:40 BP 122 / 77; Pulse 74; Resp 16; Temp 98.3; Pulse Ox 99% on R/A; Pain 7/10; ch 12:31 Body Mass Index 30.68 (99.79 kg, 180.34 cm) aj MDM: 12:55 Patient medically screened. jr8 13:56 Data reviewed: vital signs, nurses notes, radiologic studies, plain films, and as a jr8 result, I will discharge patient. Data interpreted: Pulse oximetry: on room air is 99 %. Interpretation: normal. Counseling: I had a detailed discussion with the patient and/or guardian regarding: the historical points, exam findings, and any diagnostic results supporting the discharge/admit diagnosis, lab results, radiology results, the need for outpatient follow up, a family practitioner, to return to the emergency department if symptoms worsen or persist or if there are any questions or concerns that arise at home. 10/16 13:06 Order name: XRAY Chest (1 view); Complete Time: 13:56 jr8 Administered Medications: 13:36 Not Given (Physician Discretion): TORadol 60 mg IM once jr8 13:47 Drug: [place] (7.5 mg-325 mg) 1 tabs Route: PO; ch 14:07 Follow up: Response: No adverse reaction; Pain is decreased ch Disposition: 15:29 Co-signature as Attending Physician, Sebas Stephenson MD. rn Disposition: 10/16/17 13:59 Discharged to Home. Impression: Muscle spasm of back. - Condition is Stable. - Discharge Instructions: Back Exercises, [id number], Heat Therapy. - Prescriptions for Cyclobenzaprine 10 mg Oral Tablet - take 1 tablet by ORAL route every 8 hours As needed; 30 tablet. Tramadol 50 mg Oral Tablet - take 1 tablet by ORAL route every 8 hours as needed; 12 tablet. - Work release form, Medication Reconciliation Form, Thank You Letter, Antibiotic Education, Prescription Opioid Use form. - Follow up: Private Physician; When: 1 week; Reason: Recheck today's complaints, Continuance of care, Re-evaluation by your physician. - Problem is new. - Symptoms have improved. Signatures: Dispatcher [employer] EDMN Mihaela Panchal RN RN ch Myers, Amanda, RN RN aj Nieto, Roman, MD MD rn Roszak, Josh, PA PA jr8 Corrections: (The following items were deleted from the chart) 14:10 13:59 10/16/2017 13:59 Discharged to Home. Impression: Muscle spasm of back. Condition ch is Stable. Forms are Medication Reconciliation Form, Thank You Letter, Antibiotic Education, Prescription Opioid Use. Follow up: Private Physician; When: 1 week; Reason: Recheck today's complaints, Continuance of care, Re-evaluation by your physician. Problem is new. Symptoms have improved. jr8
--- NOTE | 2017-10-16 13:59 | ER ---
Nurse's Notes [facility] Name: Shoaib Freitas Jr Age: 52 yrs Sex: Male : 1965 Arrival Date: 10/16/2017 Time: 12:24 Bed 26 Private MD: out of town, doctor Diagnosis: Muscle spasm of back Presentation: 10/16 12:30 Presenting complaint: Patient states: Upper back pain for 1 month. Patient reports pain aj is worse at work. Transition of care: patient was not received from another setting of care. Onset of symptoms was September 17, 2017. Risk Assessment: Do you want to hurt yourself or someone else? Patient reports no desire to harm self or others. Initial Sepsis Screen: Does the patient meet any 2 criteria? No. Patient's initial sepsis screen is negative. Does the patient have a suspected source of infection? No. Patient's initial sepsis screen is negative. Care prior to arrival: None. 12:30 Method Of Arrival: Ambulatory aj 12:30 Acuity: COBY 4 aj Triage Assessment: 12:31 General: Appears in no apparent distress. comfortable, Behavior is calm, cooperative, aj appropriate for age. Pain: Complains of pain in left scapular area, right scapular area, left subscapular area and right subscapular area. Neuro: Level of Consciousness is awake, alert, obeys commands, Oriented to person, place, time, situation, Appropriate for age. Respiratory: Airway is compromised Respiratory effort is even, unlabored, Respiratory pattern is regular, symmetrical. Derm: Skin is intact, is healthy with good turgor, Skin is pink, warm \T\ dry. normal. Musculoskeletal: Circulation, motion, and sensation intact. Range of motion: Reports pain in left scapular area, right scapular area, left subscapular area and right subscapular area. Historical: - Allergies: 12:31 No Known Allergies; aj - Home Meds: 12:31 diltiazem HCl 240 mg Oral cpER 1 cap once daily for Hypertension [Active]; prednisone 5 aj mg Oral tab once daily [Active]; valsartan 40 mg Oral tab 1 tab once daily for Hypertension [Active]; - PMHx: 12:31 Hypertension; kidney transplant; aj - PSHx: 12:31 kidney transplant; aj - Immunization history:: Adult Immunizations up to date. - Social history:: Smoking status: Patient uses tobacco products, smokes one-half pack cigarettes per day. - Ebola Screening: : Patient negative for fever greater than or equal to 101.5 degrees Fahrenheit, and additional compatible Ebola Virus Disease symptoms Patient denies exposure to infectious person Patient denies travel to an Ebola-affected area in the 21 days before illness onset No symptoms or risks identified at this time. Screenin:40 Abuse screen: Denies threats or abuse. Denies injuries from another. Nutritional ch screening: No deficits noted. Tuberculosis screening: No symptoms or risk factors identified. Fall Risk None identified. Assessment: 13:40 General: Appears in no apparent distress. comfortable, Behavior is calm, cooperative, ch appropriate for age. Neuro: Level of Consciousness is awake, alert, obeys commands, Oriented to person, place, time, situation. Cardiovascular: Heart tones S1 S2 present. Respiratory: Airway is patent Respiratory effort is even, unlabored, Breath sounds are clear bilaterally. GI: No signs and/or symptoms were reported involving the gastrointestinal system. Derm: Skin is intact, Skin is dry, Skin is normal. 14:09 Reassessment: Patient appears in no apparent distress at this time. Patient and/or ch family updated on plan of care and expected duration. Pain level reassessed. Patient is alert, oriented x 3, equal unlabored respirations, skin warm/dry/pink. Vital Signs: 12:31 BP 145 / 88; Pulse 68; Resp 20; Temp 98.4; Pulse Ox 99% on R/A; Weight 99.79 kg; Height aj 5 ft. 11 in. (180.34 cm); 13:40 BP 122 / 77; Pulse 74; Resp 16; Temp 98.3; Pulse Ox 99% on R/A; Pain 7/10; ch 12:31 Body Mass Index 30.68 (99.79 kg, 180.34 cm) aj ED Course: 12:24 Patient arrived in ED. mr 12:24 out of town, doctor is Private Physician. mr 12:30 Triage completed. aj 12:31 Arm band placed on left wrist. Patient placed in waiting room, Patient notified of wait aj time. 12:55 Brenton Brothers PA is PHCP. jr8 12:55 Sebas Stephenson MD is Attending Physician. jr8 12:59 Mihaela Panchal, RN is Primary Nurse. 13:35 X-ray completed. Portable x-ray completed in exam room. Patient tolerated procedure jb2 well. 13:36 XRAY Chest (1 view) In Process Unspecified. EDMS 13:40 No apparent distress. ch 13:40 Patient has correct armband on for positive identification. Placed in gown. Bed in low ch position. Call light in reach. Side rails up X 1. Adult w/ patient. Pulse ox on. NIBP on. 13:40 No provider procedures requiring assistance completed. ch 14:09 Patient did not have IV access during this emergency room visit. ch Administered Medications: 13:36 Not Given (Physician Discretion): TORadol 60 mg IM once jr8 13:47 Drug: [place] (7.5 mg-325 mg) 1 tabs Route: PO; ch 14:07 Follow up: Response: No adverse reaction; Pain is decreased ch Outcome: 13:59 Discharge ordered by . jr8 14:09 Discharged to home ambulatory, with family. 14:09 Condition: stable 14:09 Discharge instructions given to patient, family, Instructed on discharge instructions, follow up and referral plans. medication usage, Demonstrated understanding of instructions, follow-up care, medications, Prescriptions given X 2. 14:10 Patient left the ED. Signatures: Dispatcher [employer] EDMS Mihaela Panchal RN RN ch Myers, Amanda, RN RN aj Rivera, Maria mr Kumar, Jason jb2 Brenton Brothers PA PA jr8
[2017-10-16 14:14] VITALS: O2SAT 99
[2017-10-16 14:15] VITALS: BP 122/77; TEMP 98.3
== END 2017-10-16 14:10 | disposition home or self-care (01) ==
LOC: ER 12:21
DX: M62.830 Muscle spasm of back (principal); I10 Essential (primary) hypertension; F17.210 Nicotine dependence, cigarettes, uncomplicated; Z94.0 Kidney transplant status
CPT/HCPCS: 71045; 99284

== ENCOUNTER 2017-11-07 07:07 | Emergency (ER) | payer OTHER ==
--- OUTSIDE RECORDS SUMMARY | 2017-11-07 07:09 | XMS REPORT | Clinical Summary ---
:1965 Author Organization [facility] Address [address] [place] [id number] Phone Care Team Providers Name Role Phone [...] Not on file Results Not on fileafter 11/06/2016
[2017-11-07 08:45] LABS: Absolute Monocytes 1.1 K/uL (0.1-1.3); Absolute Neutrophil 4.1 K/uL (1.8-8.0); Basophils % 1.1 % (0-1.3); Eosinophils % 3.6 % (0-4.4); Lymphocytes % 26.9 % (15.3-44.8); MCH 31.6 pg (27.0-35.0); MCV 92.3 fL (80-100); MPV 7.4 fL (7.6-11.3); Monocytes % 15.1 % (3.3-12.3); RBC Red Blood Cell Count 4.66 M/uL (4.33-5.43)
[2017-11-07 09:01] LABS: ALT/SGPT 23 U/L (12-78); AST/SGOT 17 U/L (15-37); Albumin 3.5 g/dL (3.4-5.0); Alkaline Phosphatase 75 U/L (45-117); BUN Blood Urea Nitrogen 25 mg/dL (7-18); Bicarbonate 31 mmol/L (21-32); Bilirubin Direct < 0.1 mg/dL (0-0.2); Bilirubin Total 0.3 mg/dL (0.2-1.0); Glucose Level 103 mg/dL (74-106); Magnesium 2.3 mg/dL (1.8-2.4); NT PRO-BNP 34 pg/mL (<125); Potassium 3.7 mmol/L (3.5-5.1); Protein, Total 7.7 g/dL (6.4-8.2); Sodium Level 142 mmol/L (136-145)
[2017-11-07 09:26] LABS: Protime INR 0.94
[2017-11-07 10:07] LABS: Blood Morphology Comment NOT SEEN (NOT SEEN); Platelet Estimate ADEQ; Urine White Blood Cell Casts OK
[2017-11-07] MEDS ORDERED: MORPHINE 4 MG/ML SYR ONE (10:30)
[2017-11-07] MEDS ORDERED: ONDANSETRON 4 MG/2 ML VIAL ONE (10:30)
--- NOTE | 2017-11-07 11:42 | RAD REPORT ---
EXAM DESCRIPTION: RAD - Chest Single View - 11/07/2017 8:58 am CLINICAL HISTORY: CHEST PAIN Chest pain. COMPARISON: Chest Single View dated 10/16/2017; Chest Single View dated 08/16/2017; Chest Single View da dirk 06/04/2017; Chest Single View dated 05/20/2016 FINDINGS: Portable technique limits examination quality. The lungs are grossly clear. The heart is normal in size. No displaced fractures. IMPRESSION: No acute intrathoracic process suspected.
--- NOTE | 2017-11-07 12:43 | ER ---
Nurse's Notes [facility] Name: Shoaib Freitas Jr Age: 52 yrs Sex: Male : 1965 Arrival Date: 11/07/2017 Time: 07:14 Bed 5 Private MD: Diagnosis: Chest pain, unspecified Presentation: 11/07 07:22 Presenting complaint: Patient states: abd pain, N/V x 3 days. Transition of care: ss patient was not received from another setting of care. Onset of symptoms was November 03, 2017. Risk Assessment: Do you want to hurt yourself or someone else? Patient reports no desire to harm self or others. Initial Sepsis Screen: Does the patient meet any 2 criteria? No. Patient's initial sepsis screen is negative. Does the patient have a suspected source of infection? No. Patient's initial sepsis screen is negative. Care prior to arrival: None. 07:22 Method Of Arrival: Ambulatory ss 07:22 Acuity: COBY 3 ss Historical: - Allergies: 07:24 No Known Allergies; ss - PMHx: 07:24 Hypertension; ss - PSHx: 07:24 kidney transplant; ss - Immunization history:: Adult Immunizations up to date. - Social history:: Smoking status: Patient uses tobacco products, smokes one-half pack cigarettes per day. - Ebola Screening: : Patient denies exposure to infectious person Patient denies travel to an Ebola-affected area in the 21 days before illness onset. Screenin:44 Abuse screen: Denies threats or abuse. Denies injuries from another. Nutritional jl7 screening: No deficits noted. Tuberculosis screening: No symptoms or risk factors identified. Fall Risk IV access (20 points). Total Pacheco Fall Scale indicates No Risk (0-24 pts). Assessment: 07:30 General: Appears in no apparent distress. uncomfortable, Behavior is calm, cooperative. jl7 Pain: Complains of pain in xyphoid area and mid-sternal area Pain does not radiate. Pain currently is 9 out of 10 on a pain scale. Quality of pain is described as "It's just pain." Pain began 2-3 days ago. Is continuous. Neuro: Level of Consciousness is awake, alert, obeys commands, Oriented to person, place, time, situation. Cardiovascular: Heart tones S1 S2 present Patient's skin is warm and dry. Respiratory: Airway is patent Respiratory effort is even, unlabored, Respiratory pattern is regular, symmetrical, Breath sounds are clear bilaterally. GI: Abdomen is round non-distended, Last BM at 07:20. Bowel sounds present X 4 quads. Abd is soft and non tender in right upper quadrant, left upper quadrant, right lower quadrant and left lower quadrant Abdomen is tender to palpation in epigastric area. : No signs and/or symptoms were reported regarding the genitourinary system. EENT: No signs and/or symptoms were reported regarding the EENT system. Derm: Skin is dry, Skin is normal, Skin temperature is warm. Musculoskeletal: No signs and/or symptoms reported regarding the musculoskeletal system. 08:30 Reassessment: No changes from previously documented assessment. Patient and/or family jl7 updated on plan of care and expected duration. Pain level reassessed. Patient is alert, oriented x 3, equal unlabored respirations, skin warm/dry/pink. 09:30 Reassessment: Patient and/or family updated on plan of care and expected duration. Pain jl7 level reassessed. Patient is alert, oriented x 3, equal unlabored respirations, skin warm/dry/pink. 10:30 Reassessment: Patient and/or family updated on plan of care and expected duration. Pain jl7 level reassessed. Patient is alert, oriented x 3, equal unlabored respirations, skin warm/dry/pink. 11:24 Reassessment: Patient appears in no apparent distress at this time. Patient and/or ph family updated on plan of care and expected duration. Pain level reassessed. Patient is alert, oriented x 3, equal unlabored respirations, skin warm/dry/pink. Pt resting quietly, awaiting results repeat cardiac enzymes, VSS. 12:30 Reassessment: Patient and/or family updated on plan of care and expected duration. Pain jl7 level reassessed. Patient is alert, oriented x 3, equal unlabored respirations, skin warm/dry/pink. Patient states feeling better. Vital Signs: 07:24 BP 130 / 92; Pulse 76; Resp 16; Temp 98.2(O); Pulse Ox 99% ; Height 5 ft. 11 in. ss (180.34 cm); Pain 8/10; 07:44 BP 130 / 92; Pulse 74; Resp 18 S; Pulse Ox 100% on R/A; Pain 9/10; jl7 09:34 BP 121 / 86; Pulse 69; Resp 16; Pulse Ox 98% on R/A; ph 11:25 BP 121 / 79; Pulse 71; Resp 16; Pulse Ox 99% on R/A; ph 12:00 BP 123 / 76; Pulse 68; Resp 18; Pulse Ox 99% ; jl7 13:00 BP 114 / 72; Pulse 68; Resp 16; Pulse Ox 100% ; jl7 ED Course: 07:14 Patient arrived in ED. jb7 07:17 Panfilo Peter MD is Attending Physician. kdr 07:23 Triage completed. ss 07:24 Arm band placed on right wrist. ss 07:28 Thalia Velasquez, PRINCESS is Primary Nurse. jl7 07:44 Patient has correct armband on for positive identification. Placed in gown. Bed in low jl7 position. Call light in reach. Side rails up X 1. case monitor on. Pulse ox on. NIBP on. Warm blanket given. 07:44 Patient maintains SpO2 saturation greater than 95% on room air. jl7 07:47 EKG done, by ED staff, reviewed by Panfilo Peter MD. em1 07:58 Missed attempt(s): 22 gauge in left antecubital area. jl7 08:00 Missed attempt(s): 22 gauge in left forearm. Bleeding controlled, band aid applied, jl7 catheter tip intact. 08:15 Missed attempt(s): 22 gauge in right forearm. Bleeding controlled, band aid applied, jl7 catheter tip intact. 08:22 X-ray completed. Portable x-ray completed in exam room. Patient tolerated procedure kw well. 08:25 Missed attempt(s): 22 gauge in right antecubital area. jl7 08:58 XRAY Chest (1 view) In Process Unspecified. EDMS 10:59 Inserted saline lock: 22 gauge in right antecubital area, using aseptic technique. ss Blood collected. 11:14 Troponin (emerg Dept Use Only): At 3 hours Sent. jl7 13:30 No provider procedures requiring assistance completed. IV discontinued, intact, jl7 bleeding controlled, No redness/swelling at site. Pressure dressing applied. Administered Medications: 10:55 Drug: Zofran 4 mg Route: IVP; Site: right antecubital; jl7 11:25 Follow up: Response: No adverse reaction jl7 10:58 Drug: morphine 4 mg Route: IVP; Site: right antecubital; jl7 11:28 Follow up: Response: No adverse reaction; Pain is decreased jl7 Outcome: 12:43 Discharge ordered by . kdr 13:30 Discharged to home ambulatory. jl7 13:30 Condition: stable 13:30 Discharge instructions given to patient, Instructed on discharge instructions, follow up and referral plans. medication usage, Demonstrated understanding of instructions, follow-up care, medications, Prescriptions given X 1. 14:07 Patient left the ED. jl7 Signatures: Dispatcher [employer] EDMS Panfilo Peter MD MD kdr Martinez, Eric em1 Tere Powell, RN RN Leni Nolan Patricia, RN RN ph Leal, Jahala, RN RN jl7 Cl Godoy7
--- NOTE | 2017-11-07 12:44 | EDPHYS ---
Physician Documentation [facility] Name: Shoaib Freitas Jr Age: 52 yrs Sex: Male : 1965 Arrival Date: 11/07/2017 Time: 07:14 Bed 5 Private MD: ED Physician Panfilo Peter HPI: 11/07 07:54 This 52 yrs old Black Male presents to ER via Ambulatory with complaints of kdr chest/.Abdominal Pain. 07:54 The patient or guardian reports chest pain that is located primarily in the substernal kdr area. Onset: gradually, 4 day(s) ago. The pain does not radiate. Associated signs and symptoms: Pertinent positives: nausea, Pertinent negatives: cough, diaphoresis, dizziness, headache, lower extremity pain, lower extremity swelling, lightheadedness, near syncope, palpitations, recent travel, shortness of breath, syncope, vomiting. The chest pain is described as aching, burning, a pressure. Duration: The patient or guardian reports multiple episodes, that are intermittent, that wax and wane, with no pattern, Returned this morning and worse today but similar to his last visit. Modifying factors: The symptoms are alleviated by nothing. the symptoms are aggravated by nothing. Severity of pain: At its worst the pain was severe a 9 / 10 in the emergency department the pain is a 9 / 10. The patient has experienced similar episodes in the past, several times. Historical: - Allergies: 07:24 No Known Allergies; ss - PMHx: 07:24 Hypertension; ss - PSHx: 07:24 kidney transplant; ss - Immunization history:: Adult Immunizations up to date. - Social history:: Smoking status: Patient uses tobacco products, smokes one-half pack cigarettes per day. - Ebola Screening: : Patient denies exposure to infectious person Patient denies travel to an Ebola-affected area in the 21 days before illness onset. ROS: 07:54 Constitutional: Negative for fever, chills, and weight loss, Eyes: Negative for injury, kdr pain, redness, and discharge, ENT: Negative for injury, pain, and discharge, Neck: Negative for injury, pain, and swelling, Respiratory: Negative for shortness of breath, cough, wheezing, and pleuritic chest pain, Abdomen/GI: Negative for abdominal pain, nausea, vomiting, diarrhea, and constipation, Back: Negative for injury and pain, : Negative for injury, bleeding, discharge, and swelling, MS/Extremity: Negative for injury and deformity, Skin: Negative for injury, rash, and discoloration, Neuro: Negative for headache, weakness, numbness, tingling, and seizure activity. Psych: Negative for depression, anxiety, suicide ideation, homicidal ideation, and hallucinations, Allergy/Immunology: Negative for hives, rash, and allergies, Endocrine: Negative for neck swelling, polydipsia, polyuria, polyphagia, and marked weight changes, Hematologic/Lymphatic: Negative for swollen nodes, abnormal bleeding, and unusual bruising. 07:54 Cardiovascular: Positive for chest pain, Negative for edema, orthopnea, palpitations, paroxysmal nocturnal dyspnea, acute changes. Exam: 07:54 Constitutional: This is a well developed, well nourished patient who is awake, alert, kdr and in no acute distress. Head/Face: Normocephalic, atraumatic. Eyes: Pupils equal round and reactive to light, extra-ocular motions intact. Lids and lashes normal. Conjunctiva and sclera are non-icteric and not injected. Cornea within normal limits. Periorbital areas with no swelling, redness, or edema. Neck: Trachea midline, no thyromegaly or masses palpated, and no cervical lymphadenopathy. Supple, full range of motion without nuchal rigidity, or vertebral point tenderness. No Meningismus. Chest/axilla: Normal chest wall appearance and motion. Nontender with no deformity. No lesions are appreciated. Cardiovascular: Regular rate and rhythm with a normal S1 and S2. No gallops, murmurs, or rubs. Normal PMI, no JVD. No pulse deficits. Respiratory: Lungs have equal breath sounds bilaterally, clear to auscultation and percussion. No rales, rhonchi or wheezes noted. No increased work of breathing, no retractions or nasal flaring. Abdomen/GI: Soft, non-tender, with normal bowel sounds. No distension or tympany. No guarding or rebound. No evidence of tenderness throughout. Back: No spinal tenderness. No costovertebral tenderness. Full range of motion. Skin: Warm, dry with normal turgor. Normal color with no rashes, no lesions, and no evidence of cellulitis. MS/ Extremity: Pulses equal, no cyanosis. Neurovascular intact. Full, normal range of motion. Neuro: Awake and alert, GCS 15, oriented to person, place, time, and situation. Cranial nerves II-XII grossly intact. Motor strength 5/5 in all extremities. Sensory grossly intact. Cerebellar exam normal. Normal gait. Psych: Awake, alert, with orientation to person, place and time. Behavior, mood, and affect are within normal limits. Vital Signs: 07:24 BP 130 / 92; Pulse 76; Resp 16; Temp 98.2(O); Pulse Ox 99% ; Height 5 ft. 11 in. ss (180.34 cm); Pain 8/10; 07:44 BP 130 / 92; Pulse 74; Resp 18 S; Pulse Ox 100% on R/A; Pain 9/10; jl7 09:34 BP 121 / 86; Pulse 69; Resp 16; Pulse Ox 98% on R/A; ph 11:25 BP 121 / 79; Pulse 71; Resp 16; Pulse Ox 99% on R/A; ph 12:00 BP 123 / 76; Pulse 68; Resp 18; Pulse Ox 99% ; jl7 13:00 BP 114 / 72; Pulse 68; Resp 16; Pulse Ox 100% ; jl7 MDM: 07:54 HEART Score: History: Slightly Suspicious (0), ECG: Normal (0), Age: > 45 and < 65 kdr years (1), Risk Factors: 1 or 2 risk factors (1), [Hypertension] Troponin: < or = 1 x Normal Limit (0), Total Score =. SHELLIE Risk Score: 1 - Recent [<24hrs] Severe Angina, TOTAL SCORE = 1. Data reviewed: vital signs, nurses notes, lab test result(s), EKG, radiologic studies. Counseling: I had a detailed discussion with the patient and/or guardian regarding: the historical points, exam findings, and any diagnostic results supporting the discharge/admit diagnosis, lab results, radiology results. 12:[address] [facility] 11/07 07:25 Order name: Basic Metabolic Panel; Complete Time: 09:49 [facility] 11/07 07:25 Order name: CBC with Diff; Complete Time: 12:26 kdr 11/07 07:25 Order name: LFT's; Complete Time: 09:49 [facility] 11/07 07:25 Order name: Magnesium; Complete Time: 09:49 [facility] 11/07 07:25 Order name: NT PRO-BNP; Complete Time: 09:49 kdr 11/07 07:25 Order name: PT-INR; Complete Time: 09:49 kdr 11/07 07:25 Order name: Ptt, Activated; Complete Time: 09:49 kdr 11/07 07:25 Order name: Troponin (emerg Dept Use Only); Complete Time: 09:49 kdr 11/07 07:25 Order name: XRAY Chest (1 view); Complete Time: 12:26 kdr 11/07 07:40 Order name: Lipase; Complete Time: 09:49 kdr 11/07 09:16 Order name: CBC Smear Scan; Complete Time: 12:26 EDMS 11/07 09:57 Order name: Troponin (emerg Dept Use Only): At 3 hours; Complete Time: 12:26 kdr 11/07 07:25 Order name: EKG; Complete Time: 07:25 kdr 11/07 07:25 Order name: Cardiac monitoring; Complete Time: 08:05 kdr 11/07 07:25 Order name: EKG - Nurse/Tech; Complete Time: 07:47 kdr 11/07 07:25 Order name: IV Saline Lock; Complete Time: 11:02 kdr 11/07 07:25 Order name: Labs collected and sent; Complete Time: 10:40 kdr 11/07 07:25 Order name: O2 Per Protocol; Complete Time: 08:05 kdr 11/07 07:25 Order name: O2 Sat Monitoring; Complete Time: 08:05 kdr Administered Medications: 10:55 Drug: Zofran 4 mg Route: IVP; Site: right antecubital; 7 11:25 Follow up: Response: No adverse reaction [facility] 10:58 Drug: morphine 4 mg Route: IVP; Site: right antecubital; 7 11:28 Follow up: Response: No adverse reaction; Pain is decreased jl7 Disposition: 11/07/17 12:43 Discharged to Home. Impression: Chest pain, unspecified. - Condition is Stable. - Discharge Instructions: Chest Wall Pain, [id number], Abdominal Pain, Adult, [id number], Nonspecific Chest Pain, [id number]. - Prescriptions for Tramadol 50 mg Oral Tablet - take 1 tablet by ORAL route every 8 hours as needed; 12 tablet. - Medication Reconciliation Form, Thank You Letter, Work release form, SBAR form form. - Follow up: Private Physician; When: 2 - 3 days; Reason: If symptoms return, Further diagnostic work-up, Recheck today's complaints, Continuance of care, Re-evaluation by your physician. - Problem is an acute exacerbation. - Symptoms have improved. Signatures: Dispatcher [employer] EDMS Panfilo Peter MD MD kdr Maeve Mcclendon, RECEPTION CLERK-C RECEPTION CLERK-Csnw Tere Powell RN RN ss Thalia Velasquez RN RN jl7 Corrections: (The following items were deleted from the chart) 14:07 12:43 11/07/2017 12:43 Discharged to Home. Impression: Chest pain, unspecified. jl7 Condition is Stable. Forms are Medication Reconciliation Form, Thank You Letter, Antibiotic Education, Prescription Opioid Use. Follow up: Private Physician; When: 2 - 3 days; Reason: If symptoms return, Further diagnostic work-up, Recheck today's complaints, Continuance of care, Re-evaluation by your physician. Problem is an acute exacerbation. Symptoms have improved. kdr
[2017-11-07 14:29] VITALS: TEMP 98.2
[2017-11-07 14:34] VITALS: BP 114/72; O2SAT 100
--- NOTE | 2017-11-08 09:35 | EKG ---
Test Date: 2017-11-07 Test Time: 07:22:50 [employer] Molder: TERRELL MEASUREMENT RESULTS: Intervals: Rate: 77 OK: 146 QRSD: 98 QT: 380 QTc: 430 Gail: P: 42 OK: 146 QRS: 11 T: 18 INTERPRETIVE STATEMENTS: Normal sinus rhythm Normal ECG Compared to ECG 08/16/2017 22:14:48 No significant changes Electronically Signed On 11-08-17 09:34:13 CDT by Karson Thomas
== END 2017-11-07 14:07 | disposition home or self-care (01) ==
LOC: ER 07:07
DX: R07.9 Chest pain, unspecified (principal); I10 Essential (primary) hypertension; F17.210 Nicotine dependence, cigarettes, uncomplicated
CPT/HCPCS: 36415; 71045; 80048; 80076; 83690; 83735; 83880; 84484 ×2; 85025; 85610; 85730; 93005; J2405; 96374; 96375; 99285

== ENCOUNTER 2017-12-04 14:44 | Inpatient (IN) | payer OTHER ==
--- OUTSIDE RECORDS SUMMARY | 2017-12-04 15:52 | XMS REPORT | Clinical Summary ---
:1965 Author Organization [facility] Address [address] [place] [address] Care Team Providers Name Role Phone Juan [...] Documentation Transplant Nae Posey Kidney Follow-up ( [facility] 20 year TRF ) 12/18/2016 Lab Juan Zuniga MD Chronic kidney disease, stage III (moderate) (Primary Dx); Essential hypertension, malignant; Proteinuria; Disorder of phosphorus metabolism; Familial lipoprotein deficiency; Hyperkalemia; Kidney replaced by transplant after 12/03/2016 Social History Tobacco Use Types Packs/Day Years [...] Routine 04/23/2017 9:26 Results for this AM CENTRIFUGE OPERATOR procedure are in the results section. CYCLOSPORINE A LEVEL Routine 04/23/2017 9:26 Kidney replaced by Results for this AM CENTRIFUGE OPERATOR transplant procedure are in Anemia of chronic the results renal failure, section. unspecified CKD stage Hypermagnesemia Proteinuria, unspecified type Essential hypertension, malignant Chronic kidney disease, stage III (moderate) Disorder of phosphorus metabolism PROTEIN, URINE, RANDOM Routine 04/23/2017 9:26 Kidney replaced by Results for this AM CENTRIFUGE OPERATOR transplant procedure are in Anemia of chronic the results renal failure, section. unspecified CKD stage Hypermagnesemia Proteinuria, unspecified type Essential hypertension, malignant Chronic kidney disease, stage III (moderate) Disorder of phosphorus metabolism CREATININE LEVEL, Routine 04/23/2017 9:26 Kidney replaced by Results for this URINE, RANDOM AM CENTRIFUGE OPERATOR transplant procedure are in Anemia of chronic the results renal failure, section. unspecified CKD stage Hypermagnesemia Proteinuria, unspecified type Essential hypertension, malignant Chronic kidney disease, stage III (moderate) Disorder of phosphorus metabolism URINALYSIS SCREEN AND Routine 04/23/2017 9:26 Kidney replaced by Results for this MICROSCOPY, WITH AM CENTRIFUGE OPERATOR transplant procedure are in REFLEX TO CULTURE Anemia of chronic the results renal failure, section. unspecified CKD stage Hypermagnesemia Proteinuria, unspecified type Essential hypertension, malignant Chronic kidney disease, stage III (moderate) Disorder of phosphorus metabolism LDH Routine 04/23/2017 9:26 Kidney replaced by Results for this AM CENTRIFUGE OPERATOR transplant procedure are in Anemia of chronic the results renal failure, section. unspecified CKD stage Hypermagnesemia Proteinuria, unspecified type Essential hypertension, malignant Chronic kidney disease, stage III (moderate) Disorder of phosphorus metabolism URIC ACID LEVEL Routine 04/23/2017 9:26 Kidney replaced by Results for this AM CENTRIFUGE OPERATOR transplant procedure are in Anemia of chronic the results renal failure, section. unspecified CKD stage Hypermagnesemia Proteinuria, unspecified type Essential hypertension, malignant Chronic kidney disease, stage III (moderate) Disorder of phosphorus metabolism PHOSPHORUS LEVEL Routine 04/23/2017 9:26 Kidney replaced by Results for this AM CENTRIFUGE OPERATOR transplant procedure are in Anemia of chronic the results renal failure, section. unspecified CKD stage Hypermagnesemia Proteinuria, unspecified type Essential hypertension, malignant Chronic kidney disease, stage III (moderate) Disorder of phosphorus metabolism MAGNESIUM LEVEL Routine 04/23/2017 9:26 Kidney replaced by Results for this AM CENTRIFUGE OPERATOR transplant procedure are in Anemia of chronic the results renal failure, section. unspecified CKD stage Hypermagnesemia Proteinuria, unspecified type Essential hypertension, malignant Chronic kidney disease, stage III (moderate) Disorder of phosphorus metabolism COMPREHENSIVE Routine 04/23/2017 9:26 Kidney replaced by Results for this METABOLIC PANEL AM CENTRIFUGE OPERATOR transplant procedure are in Anemia of chronic the results renal failure, section. unspecified CKD stage Hypermagnesemia Proteinuria, unspecified type Essential hypertension, malignant Chronic kidney disease, stage III (moderate) Disorder of phosphorus metabolism HC COMPLETE BLD COUNT Routine 04/23/2017 9:26 Kidney replaced by Results for this W/AUTO DIFF AM CENTRIFUGE OPERATOR transplant procedure are in Anemia of chronic the results renal failure, section. unspecified CKD stage Hypermagnesemia Proteinuria, unspecified type Essential hypertension, malignant Chronic kidney disease, stage III (moderate) Disorder of phosphorus metabolism URINE CULTURE Routine 04/23/2017 9:26 Results for this AM CENTRIFUGE OPERATOR procedure are in the results section. ESTIMATED [...] procedure are in the results section. after 12/03/2016 Results Urinalysis screen and microscopy, with reflex to culture (09/28/2017 8:05 AM) Only the most recent of3 resultswithin the time period is included. Specimen site Clean catch [facility] DEPARTMENT OF PATHOLOGY AND GENOMIC MEDICINE Color, UA Yellow [facility] DEPARTMENT OF PATHOLOGY AND GENOMIC MEDICINE Appearance, UA Clear [facility] DEPARTMENT OF PATHOLOGY AND GENOMIC MEDICINE Specific gravity, UA 1.019 1.001 - 1.035 [facility] DEPARTMENT OF PATHOLOGY AND GENOMIC MEDICINE pH, UA 6.0 5.0 - 8.5 [facility] DEPARTMENT OF PATHOLOGY AND GENOMIC MEDICINE Protein, UA 3+ (A) Negative [facility] DEPARTMENT OF PATHOLOGY AND GENOMIC MEDICINE Glucose, UA Negative Negative [facility] DEPARTMENT OF PATHOLOGY AND GENOMIC MEDICINE Ketones, UA Negative Negative [facility] DEPARTMENT OF PATHOLOGY AND GENOMIC MEDICINE Bilirubin, UA Negative Negative [facility] DEPARTMENT OF PATHOLOGY AND GENOMIC MEDICINE Blood, UA Moderate (A) Negative [facility] DEPARTMENT OF PATHOLOGY AND GENOMIC MEDICINE Nitrite, UA Negative Negative [facility] DEPARTMENT OF PATHOLOGY AND GENOMIC MEDICINE Urobilinogen, UA 4.0 (A) <2.0 [facility] DEPARTMENT OF PATHOLOGY AND GENOMIC MEDICINE Leukocyte esterase, UA Negative Negative [facility] DEPARTMENT OF PATHOLOGY AND GENOMIC MEDICINE Epithelial cells, UA <1 /HPF [facility] DEPARTMENT OF PATHOLOGY AND GENOMIC MEDICINE WBC, UA 3 (H) 0 - 1 /HPF [facility] DEPARTMENT OF PATHOLOGY AND GENOMIC MEDICINE RBC, UA 61 (H) 0 - 5 /HPF [facility] DEPARTMENT OF PATHOLOGY AND GENOMIC MEDICINE Bacteria, UA Few None seen [facility] DEPARTMENT OF PATHOLOGY AND GENOMIC MEDICINE Yeast, UA Few (A) [facility] DEPARTMENT OF PATHOLOGY AND GENOMIC MEDICINE Yeast with pseudohyphae, UA None seen [facility] DEPARTMENT OF PATHOLOGY AND GENOMIC MEDICINE Hyaline casts, UA 3 /LPF [facility] DEPARTMENT OF PATHOLOGY AND GENOMIC MEDICINE Specimen Urine Performing Organization Address City/State/Zipcode Phone Number [facility] DEPARTMENT OF PATHOLOGY AND [address] [place] [address] [employer] [facility] Estimated GFR (09/28/2017 8:05 AM)Only the most recent of3 resultswithin the time period is included. GFR Non Af Amer 70 mL/min/1.73 m2 [facility] DEPARTMENT OF PATHOLOGY AND GENOMIC MEDICINE GFR Af Amer 85 mL/min/1.73 m2 [facility] DEPARTMENT OF Comment: PATHOLOGY AND GENOMIC Chronic [...] Americans. Specimen Plasma specimen Performing Organization Address [facility] Phone Number [facility] DEPARTMENT OF PATHOLOGY AND [address] [place] [address] FK506 level (09/28/2017 8:05 AM) FK506 level <2.0 ng/mL [facility] DEPARTMENT OF PATHOLOGY Comment: AND [employer] MEDICINE Therapeutic range 5-20 ng/mL for 12 hour trough. The range varies depending on the organ transplanted, time after transplantation and co-administered immunosuppressant therapies. Please use clinical judgment to interpret test result. Test performed using [employer] Assistant chemiluminescent microparticle immunoassay for Tacrolimus on the [employer] TECH[employer] i System. Specimen Blood Performing Organization Address [facility] Phone Number [facility] DEPARTMENT OF PATHOLOGY AND [address] [place] [address] Protein, urine, random (09/28/2017 8:05 AM)Only the most recent of3 resultswithin the time period is included. Protein, urine random 187 mg/dL [facility] DEPARTMENT OF PATHOLOGY AND [facility] MEDICINE Specimen Urine Performing Organization Address [facility] Phone Number [facility] DEPARTMENT OF PATHOLOGY AND [address] [place] [address] Creatinine level, urine, random (09/28/2017 8:05 AM)Only the most recent of3 resultswithin the time period is included. Creatinine, urine, random 184 mg/dL [facility] DEPARTMENT OF PATHOLOGY AND [facility] MEDICINE Specimen Urine Performing Organization Address [facility] Phone Number [facility] DEPARTMENT OF PATHOLOGY AND [address] [place] [address] CBC with platelet and differential (09/28/2017 8:05 AM)Only the most recent of3 resultswithin the time period is included. WBC 9.46 4.50 - 11.00 k/uL [facility] DEPARTMENT OF PATHOLOGY AND GENOMIC MEDICINE RBC 4.28 (L) 4.40 - 6.00 m/uL [facility] DEPARTMENT OF PATHOLOGY AND GENOMIC MEDICINE HGB 13.2 (L) 14.0 - 18.0 g/dL [facility] DEPARTMENT OF PATHOLOGY AND GENOMIC MEDICINE HCT 38.7 (L) 41.0 - 51.0 % [facility] DEPARTMENT OF PATHOLOGY AND GENOMIC MEDICINE MCV 90.4 82.0 - 100.0 fL [facility] DEPARTMENT OF PATHOLOGY AND GENOMIC MEDICINE MCH 30.8 27.0 - 34.0 pg [facility] DEPARTMENT OF PATHOLOGY AND GENOMIC MEDICINE MCHC 34.1 31.0 - 37.0 g/dL [facility] DEPARTMENT OF PATHOLOGY AND GENOMIC MEDICINE RDW - SD 38.5 37.0 - 55.0 fL [facility] DEPARTMENT OF PATHOLOGY AND GENOMIC MEDICINE MPV 9.3 8.8 - 13.2 fL [facility] DEPARTMENT OF PATHOLOGY AND GENOMIC MEDICINE Platelet count 267 150 - 400 k/uL [facility] DEPARTMENT OF PATHOLOGY AND GENOMIC MEDICINE Nucleated RBC 0.00 /100 WBC [facility] DEPARTMENT OF PATHOLOGY AND GENOMIC MEDICINE Neutrophils 57.7 39.0 - 69.0 % [facility] DEPARTMENT OF PATHOLOGY AND GENOMIC MEDICINE Lymphocytes 29.1 25.0 - 45.0 % [facility] DEPARTMENT OF PATHOLOGY AND GENOMIC MEDICINE Monocytes 7.8 0.0 - 10.0 % [facility] DEPARTMENT OF PATHOLOGY AND GENOMIC MEDICINE Eosinophils 4.2 0.0 - 5.0 % [facility] DEPARTMENT OF PATHOLOGY AND GENOMIC MEDICINE Basophils 1.0 0.0 - 1.0 % [facility] DEPARTMENT OF PATHOLOGY AND GENOMIC MEDICINE Immature granulocytes 0.2Comment: 0.0 - 1.0 % [facility] DEPARTMENT OF "Immature PATHOLOGY AND GENOMIC granulocytes" MEDICINE (promyelocytes, myelocytes, metamyelocytes) Specimen Blood Performing Organization Address City/[facility]/Zipcode Phone Number [facility] DEPARTMENT OF PATHOLOGY AND [address] [place] [id number] [employer] [facility] Urine culture (09/28/2017 8:05 AM)Only the most recent of3 resultswithin the time period is included. Urine culture SEE COMMENTComment: Bacteriuria [facility] DEPARTMENT OF PATHOLOGY screen negative. AND GENOMIC MEDICINE Performing Organization Address City/[facility]/Zipcode Phone Number [facility] DEPARTMENT OF PATHOLOGY AND [address] [place] [phone] GENOMIC MEDICINE Uric acid level (09/28/2017 8:05 AM)Only the most recent of3 resultswithin the time period is included. Uric acid 5.6 3.4 - 7.0 mg/dL [facility] DEPARTMENT OF PATHOLOGY AND GENOMIC MEDICINE Specimen Plasma specimen Performing Organization Address [facility] Phone Number [facility] DEPARTMENT OF PATHOLOGY AND [address] [place] [address] GENOMIC MEDICINE Phosphorus level (09/28/2017 8:05 AM)Only the most recent of3 resultswithin the time period is included. Phosphorus 1.9 (L) 2.4 - 4.5 mg/dL [facility] DEPARTMENT OF PATHOLOGY AND GENOMIC MEDICINE Specimen Plasma specimen Performing Organization Address [facility] Phone Number [facility] DEPARTMENT OF PATHOLOGY AND [address] [place] [address] Magnesium level (09/28/2017 8:05 AM)Only the most recent of3 resultswithin the time period is included. Magnesium 2.0 1.6 - 2.6 mg/dL [facility] DEPARTMENT OF PATHOLOGY AND GENOMIC MEDICINE Specimen Plasma specimen Performing Organization Address [facility] Phone Number [facility] DEPARTMENT OF PATHOLOGY AND [address] [place] [address] MEDICINE LDH (09/28/2017 8:05 AM)Only the most recent of3 resultswithin the time period is included. LDH 185 87 - 225 U/L [facility] DEPARTMENT OF PATHOLOGY AND GENOMIC MEDICINE Specimen Plasma specimen Performing Organization Address [facility] Phone Number [facility] DEPARTMENT OF PATHOLOGY AND [address] [place] [address] Comprehensive metabolic panel (09/28/2017 8:05 AM)Only the most recent of3 resultswithin the time period is included. Sodium 141 135 - 148 mEq/L [facility] DEPARTMENT OF PATHOLOGY AND GENOMIC MEDICINE Potassium 3.8 3.5 - 5.0 mEq/L [facility] DEPARTMENT OF PATHOLOGY AND GENOMIC MEDICINE Chloride 105 98 - 112 mEq/L [facility] DEPARTMENT OF PATHOLOGY AND GENOMIC MEDICINE CO2 27 24 - 31 mEq/L [facility] DEPARTMENT OF PATHOLOGY AND GENOMIC MEDICINE Anion gap 9@ANIO 7 - 15 mEq/L [facility] DEPARTMENT OF PATHOLOGY AND GENOMIC MEDICINE BUN 15 6 - 20 mg/dL [facility] DEPARTMENT OF PATHOLOGY AND GENOMIC MEDICINE Creatinine 1.1 0.7 - 1.2 mg/dL [facility] DEPARTMENT OF PATHOLOGY AND GENOMIC MEDICINE Glucose 94 65 - 99 mg/dL [facility] DEPARTMENT OF PATHOLOGY AND GENOMIC MEDICINE Calcium 10.2 8.3 - 10.2 mg/dL [facility] DEPARTMENT OF PATHOLOGY AND GENOMIC MEDICINE Protein 7.1 6.3 - 8.3 g/dL [facility] DEPARTMENT OF Comment: PATHOLOGY AND GENOMIC 4.6-7.0 g/dL MEDICINE 1 week 4.4-7.6 g/dL 7 months-1year5.1-7.3 g/dL 1-2 years5.6-7.5 g/dL >3 years6.0-8.0 g/dL 18-150 6.3-8.3 g/dL Albumin 3.3 (L) 3.5 - 5.0 g/dL [facility] DEPARTMENT OF PATHOLOGY AND GENOMIC MEDICINE A/G ratio 0.9 0.7 - 3.8 [facility] DEPARTMENT OF PATHOLOGY AND GENOMIC MEDICINE Alkaline phosphatase 63 40 - 129 U/L [facility] DEPARTMENT OF PATHOLOGY AND GENOMIC MEDICINE AST 20 10 - 50 U/L [facility] DEPARTMENT OF PATHOLOGY AND GENOMIC MEDICINE ALT 14 5 - 50 U/L [facility] DEPARTMENT OF PATHOLOGY AND GENOMIC MEDICINE Total bilirubin 0.4 0.0 - 1.2 mg/dL [facility] DEPARTMENT OF PATHOLOGY AND GENOMIC MEDICINE Specimen Plasma specimen Performing Organization Address City/[facility] Phone Number [facility] DEPARTMENT OF PATHOLOGY AND [address] [place] [address] Cyclosporine A level (04/23/2017 9:26 AM)Only the most recent of2 resultswithin the time period is included. Cyclosporine <30 ng/mL [facility] DEPARTMENT OF PATHOLOGY Comment: AND [employer] MEDICINE Unless administered by continuous IV drip, collect a purple top tube just before the next dose. Therapeutic range of approximately 100-500 varies mainly with type of transplant, use of other immunosuppressive agents, and evidence of toxicity or rejection. Test performed using [employer] chemiluminescent microparticle immunoassay for Cyclosporine on the [employer] i System. Specimen Blood Performing Organization Address City/State/Zipcode Phone Number [facility] DEPARTMENT OF PATHOLOGY AND [address] [phone] [employer] [facility] after 12/03/2016 Insurance Payer Benefit Plan / Group Subscriber ID Type Phone Address [facility] [employer] [facility] xxxxxxxxx O [phone] [facility] [address] [place] [address]
--- OUTSIDE RECORDS SUMMARY | 2017-12-04 15:52 | XMS REPORT | Clinical Summary ---
:1965 Author Organization [facility] Address [address] [place] [phone] Phone Care Team Providers Name Role Phone [...] Not on file Results Not on fileafter 12/03/2016
[2017-12-04 15:53] LABS: Absolute Lymphocytes (CBC) 1.8 K/uL (0.7-4.9); Absolute Monocytes 0.7 K/uL (0.1-1.3); Absolute Neutrophil 10.7 K/uL (1.8-8.0); Basophils % 0.2 % (0-1.3); Eosinophils % 0.1 % (0-4.4); Hematocrit 37.8 % (39.6-49.0); Lymphocytes % 13.8 % (15.3-44.8); MCH 31.1 pg (27.0-35.0); MCV 92.2 fL (80-100); MPV 7.6 fL (7.6-11.3); Monocytes % 4.9 % (3.3-12.3)
[2017-12-04] MEDS ORDERED: ONDANSETRON 4 MG (ODT) TAB ONE (15:54)
[2017-12-04 15:57] LABS: Protime INR 0.95
--- NOTE | 2017-12-04 15:59 | RAD REPORT ---
EXAM DESCRIPTION: RAD - Chest Single View - 12/04/2017 3:53 pm CLINICAL HISTORY: N/V Chest pain. COMPARISON: Chest Single View dated 11/07/2017; Chest Single View dated 10/16/2017; Chest Single View d ated 08/16/2017; Chest Single View dated 06/04/2017 FINDINGS: Portable technique limits examination quality. The lungs are grossly clear. The heart is normal in size. No displaced fractures. IMPRESSION: No acute intrathoracic process suspected.
[2017-12-04 16:03] LABS: Albumin 3.7 g/dL (3.4-5.0); Bilirubin Direct 0.1 mg/dL (0-0.2); Bilirubin Total 0.4 mg/dL (0.2-1.0); Magnesium 2.2 mg/dL (1.8-2.4); Potassium 3.6 mmol/L (3.5-5.1); Protein, Total 8.1 g/dL (6.4-8.2)
[2017-12-04] MEDS ORDERED: PROMETHAZINE 25 MG/ML VIAL ONE (16:14)
[2017-12-04] MEDS ORDERED: MORPHINE 4 MG/ML SYR ONE ×2 (16:15→19:37)
[2017-12-04] MEDS ORDERED: PANTOPRAZOLE 40 MG INJ ONE (16:15)
[2017-12-04] MEDS ORDERED: NA CHLORIDE 0.9% 1,000 ML ONE ×2 (16:15→19:38)
[2017-12-04 16:17] LABS: Blood Morphology Comment NOT SEEN (NOT SEEN); Platelet Estimate ADEQ; Urine White Blood Cell Casts OK
[2017-12-04] MEDS ORDERED: NA CHLORIDE 0.9% 50 ML IV ONE (16:17)
--- NOTE | 2017-12-04 17:51 | RAD REPORT ---
EXAM DESCRIPTION: CT - Stone Protocol - 12/04/2017 4:23 pm CLINICAL HISTORY: Flank pain. N/V, mid back pain COMPARISON: Abdomen Pelvis Wo Contrast dated 09/06/2016 TECHNIQUE: Axial images were obtained without oral or IV contrast. Lack of contrast limits solid org an and vascular assessment. The [id number] spans the entirety of the system partially obscuring uppermost abdomen and lung bases. Coronal reformatted images were obtained and reviewed. All CT scans are performed using dose optimization technique as appropriate and may include automated exposure control or mA/KV adjustment according to patient size. FINDINGS: The lower lung billingsley are clear. Multiple stones are present in the gallbladder. Moderate inflammatory change is seen in the region of the gastric antrum with several enlarged lymph nodes in the perigastric fat, the largest measuring 1 0-11 mm. Lack of oral and contrast limits assessment in the region. Imaged portions of the liver and spleen show no suspicious findings on non-contrast imaging. The panc reas and adrenal glands are normal. No pathologic lymphadenopathy in the abdomen or pelvis. Both eek kidneys are highly atrophic. Left lower quadrant transplant kidney is noted there is subt le fat stranding surrounding the transplant kidney ureter as well as around the margin of the transpl ant kidney, however, this finding was also present on the comparative study. No bowel obstruction, free air, free fluid or abscess. Normal appendix noted. No significant bony abnormality. IMPRESSION: Perigastric inflammatory changes and lymphadenopathy noted in the region of the gastric antrum. The concern would be for a gastric malignancy in this location. Upper endoscopy is recommende d for further workup. Cholelithiasis. Left lower quadrant transplant kidney with mild perinephric and periureteric fat stranding could nick joaquina inflammation/infection, although a similar appearance was was present on the prior study as well . Urinalysis correlation may be of value.
--- NOTE | 2017-12-04 17:52 | RAD REPORT ---
EXAM DESCRIPTION: US - Abdomen Exam Limited - 12/04/2017 4:44 pm CLINICAL HISTORY: upper abdomen pain COMPARISON: Abdomen Exam Complete dated 09/16/2016 FINDINGS: The gallbladder demonstrates extensive shadowing gallstones. No pericholecystic fluid or g allbladder wall thickening. The common bile duct is upper limit of normal measuring 6 mm. The liver demonstrates no findings of intrahepatic biliary dilatation. IMPRESSION: Extensive cholelithiasis. Upper limit of normal CBD.
--- NOTE | 2017-12-04 18:29 | EDPHYS ---
Physician Documentation [facility] Name: Shoaib Freitas Jr Age: 52 yrs Sex: Male : 1965 Arrival Date: 12/04/2017 Time: 14:48 Bed 5 Private MD: ED Physician Sudeep Rodriguez HPI: 12/04 15:20 This 52 yrs old Black Male presents to ER via Wheelchair with complaints of Back Pain, cp Vomiting. 15:20 The patient presents with pain that is acute, with no known mechanism of injury. The cp symptoms are located in the mid back area. Onset: The symptoms/episode began/occurred this morning. 15:20 Associated signs and symptoms: Pertinent negatives: constipation, fever, weakness, cp diarrhea, GI bleed. 15:20 Severity of symptoms: in the emergency department the symptoms are unchanged, despite cp home interventions. Historical: - Allergies: 15:06 No Known Allergies; sv - Home Meds: 15:06 diltiazem HCl 240 mg Oral cpER 1 cap once daily for Hypertension [Active]; prednisone 5 sv mg Oral tab once daily [Active]; valsartan 40 mg Oral tab 1 tab once daily for Hypertension [Active]; - PMHx: 15:06 Hypertension; kidney transplant; sv - PSHx: 15:06 kidney transplant; sv - Immunization history:: Adult Immunizations up to date. - Social history:: Smoking status: Patient uses tobacco products, quit 2-3 weeks ago. - Ebola Screening: : No symptoms or risks identified at this time. ROS: 15:25 Constitutional: Positive for poor PO intake, Negative for body aches, chills, fever. cp 15:25 Eyes: Negative for injury, pain, redness, and discharge. cp 15:25 ENT: Negative for drainage from ear(s), ear pain, sore throat, difficulty swallowing, cp difficulty handling secretions. 15:25 Cardiovascular: Negative for chest pain, edema, palpitations. 15:25 Respiratory: Negative for cough, shortness of breath, wheezing. 15:25 Abdomen/GI: Positive for abdominal pain, nausea and vomiting, Negative for diarrhea, constipation, hematemesis, black/tarry stool, rectal bleeding. 15:25 Back: Positive for pain at rest, pain with movement, of the mid back area. 15:25 : Negative for urinary symptoms. 15:25 Skin: Negative for cellulitis, rash. 15:25 Neuro: Negative for altered mental status, dizziness, headache, loss of consciousness, syncope, near syncope, weakness. 15:25 All other systems are negative. Exam: 15:30 Constitutional: The patient appears in no acute distress, alert, awake, cp non-diaphoretic, well developed, well nourished, uncomfortable. 15:30 Head/Face: Normocephalic, atraumatic. Eyes: Pupils equal round and reactive to light, cp extra-ocular motions intact. Lids and lashes normal. Conjunctiva and sclera are non-icteric and not injected. Cornea within normal limits. Periorbital areas with no swelling, redness, or edema. ENT: Nares patent. No nasal discharge, no septal abnormalities noted. Tympanic membranes are normal and external auditory canals are clear. Oropharynx with no redness, swelling, or masses, exudates, or evidence of obstruction, uvula midline. Mucous membranes moist. Neck: Trachea midline, no thyromegaly or masses palpated, and no cervical lymphadenopathy. Supple, full range of motion without nuchal rigidity, or vertebral point tenderness. No Meningismus. Chest/axilla: Normal chest wall appearance and motion. Nontender with no deformity. No lesions are appreciated. 15:30 Cardiovascular: Rate: normal, Rhythm: regular, Edema: is not appreciated, JVD: is not appreciated. 15:30 Respiratory: the patient does not display signs of respiratory distress, Respirations: normal, no use of accessory muscles, no retractions, no splinting, no tachypnea, labored breathing, is not present, Breath sounds: are clear throughout, no decreased breath sounds, no stridor, no wheezing. 15:30 Abdomen/GI: Inspection: abdomen appears normal, Bowel sounds: active, all quadrants, Palpation: soft, in all quadrants, moderate abdominal tenderness, in the right upper quadrant and left upper quadrant, rebound tenderness, is not appreciated, voluntary guarding, is elicited in the right upper quadrant and left upper quadrant. 15:30 Back: pain, that is moderate, of the mid back area. 15:30 Skin: cellulitis, is not appreciated, no rash present. 15:30 Neuro: Orientation: to person, place \T\ time. Mentation: lucid, able to follow commands, Cerebellar function: is grossly normal, Motor: moves all fours, strength is normal, Sensation: no obvious gross deficits. 15:31 ECG was reviewed by the Attending Physician. Vital Signs: 15:06 BP 137 / 90; Pulse 72; Resp 18; Temp 99; Pulse Ox 97% ; Weight 90.72 kg; Height 5 ft. sv 11 in. (180.34 cm); Pain 8/10; 16:00 BP 127 / 87; Pulse 78; Resp 18; Pulse Ox 99% on R/A; ph 17:00 BP 139 / 86; Pulse 76; Resp 16; Pulse Ox 98% on R/A; ph 18:00 BP 118 / 87; Pulse 75; Resp 18; Pulse Ox 98% on R/A; ph 19:30 BP 143 / 89; Pulse 90; Resp 16; Pulse Ox 97% ; bp 21:00 BP 133 / 90; Pulse 70; Resp 14; Pulse Ox 95% ; bp 15:06 Body Mass Index 27.89 (90.72 kg, 180.34 cm) sv MDM: 15:10 Patient medically screened. cp 16:00 Differential diagnosis: Abdominal Aortic Aneurysm Cholelithiasis Peptic Ulcer cp Perforated Ulcer Ureterolithiasis. 18:25 Data reviewed: vital signs, nurses notes, lab test result(s), EKG, radiologic studies, cp CT scan, ultrasound. 18:27 Physician consultation: Sudeep Klein MD was called at 18:27, was contacted at 18:27, regarding consult, patient's condition, would like admission per Dr. Trisha Hammond MD. 12/04 15:19 Order name: Basic Metabolic Panel; Complete Time: 16:04 cp 12/04 17:28 Interpretation: Normal except: GFR 86. 12/04 15:19 Order name: CBC with Diff; Complete Time: 17:27 cp 12/04 17:28 Interpretation: Normal except: WBC 13.2; RBC 4.10; HGB 12.7; HCT 37.8; VIVIAN% 81.0; LYM% cp 13.8; NEUT A 10.7. 12/04 15:19 Order name: CPK; Complete Time: 16:04 cp 12/04 15:19 Order name: LFT's; Complete Time: 16:04 cp 12/04 17:28 Interpretation: Normal except: GLOB 4.4; A/G 0.8. 12/04 15:19 Order name: Magnesium; Complete Time: 16:04 cp 12/04 15:19 Order name: PT-INR; Complete Time: 16:04 cp 12/04 15:19 Order name: Ptt, Activated; Complete Time: 16:04 cp 12/04 15:19 Order name: Troponin (emerg Dept Use Only); Complete Time: 16:04 cp 12/04 15:19 Order name: Lipase; Complete Time: 16:04 cp 12/04 16:04 Interpretation: Abnormal: LIP 1384. cp 12/04 16:17 Order name: CBC Smear Scan; Complete Time: 17:27 EDMS 12/04 18:35 Order name: CBC with Automated Diff EDCA 12/04 18:35 Order name: CBC with Automated Diff EDCA 12/04 18:35 Order name: Comprehensive Metabolic Panel EDCA 12/04 18:35 Order name: Comprehensive Metabolic Panel EDCA 12/04 15:19 Order name: XRAY Chest (1 view); Complete Time: 16:04 cp 12/04 16:04 Order name: CT Stone Protocol; Complete Time: 18:08 cp 12/04 16:05 Order name: US Abdomen Limited; Complete Time: 18:08 cp 12/04 18:35 Order name: Blood Culture EDCA 12/04 18:38 Order name: Urinalysis W/Microscopic EDCA 12/04 15:19 Order name: EKG; Complete Time: 15:20 cp 12/04 15:19 Order name: Cardiac monitoring; Complete Time: 15:22 cp 12/04 15:19 Order name: EKG - Nurse/Tech; Complete Time: 15:22 cp 12/04 15:19 Order name: IV Saline Lock; Complete Time: 16:08 cp 12/04 15:19 Order name: Labs collected and sent; Complete Time: 16:08 cp 12/04 15:19 Order name: O2 Per Protocol; Complete Time: 15:22 cp 12/04 15:19 Order name: O2 Sat Monitoring; Complete Time: 15:23 cp 12/04 17:27 Order name: NPO; Complete Time: 19:00 cp 12/04 18:35 Order name: CONS Physician Consult EDCA 12/04 18:35 Order name: NPO EDMS EC:31 Rate is 73 beats/min. Rhythm is regular. MA interval is normal. QRS interval is normal. cp QT interval is normal. Interpreted by me. Reviewed by me. Administered Medications: 15:52 Drug: Zofran 4 mg Route: PO; ph 19:00 Follow up: Response: Pain is decreased bp 16:58 Drug: ProTONIX 40 mg Route: IVP; Site: right antecubital; ph 19:01 Follow up: Response: No adverse reaction bp 19:20 Follow up: Response: No adverse reaction ph 16:58 Drug: Phenergan 25 mg Route: IVP; Site: right antecubital; ph 19:01 Follow up: Response: Pain is decreased bp 19:20 Follow up: Response: No adverse reaction ph 16:58 Drug: morphine 2 mg Route: IVP; Site: right antecubital; ph 19:01 Follow up: Response: Pain is decreased bp 16:59 Drug: NS 0.9% 500 ml Route: IV; Rate: bolus; Site: right antecubital; ph 19:18 Follow up: Response: No adverse reaction; IV Status: Completed infusion ph 17:30 Drug: NS 0.9% 1000 ml Route: IV; Rate: 100 ml/hr; Site: right antecubital; ph 19:19 Follow up: Response: No adverse reaction; IV Status: Infusion continued upon admission ph 19:00 Drug: morphine 4 mg Route: IVP; Site: right antecubital; bp 19:45 Follow up: Response: Pain is decreased bp 19:00 Drug: Zofran 4 mg Route: IVP; Site: right antecubital; bp 19:45 Follow up: Response: Nausea is decreased bp 19:00 Drug: Rocephin - (cefTRIAXone) 1 grams Route: IVPB; Infused Over: 30 mins; Site: right bp antecubital; 19:30 Follow up: IV Status: Completed infusion; IV Intake: 50ml bp 19:00 Drug: metroNIDAZOLE 500 mg Volume: 100 ml; Route: IVPB; Infused Over: 30 mins; Site: bp right antecubital; 20:00 Follow up: IV Status: Completed infusion; IV Intake: 100ml bp 19:00 Drug: NS 0.9% 1000 ml Route: IV; Rate: 1 bolus; Site: right antecubital; bp 20:58 Follow up: IV Status: Completed infusion bp 19:49 Not Given (Duplicate Order): Zofran 4 mg IVP once; over 2 minutes bp Disposition: 12/05 08:35 Co-signature as Attending Physician, Sudeep Rodriguez MD I agree with the assessment and wa plan of care. Disposition: 12/04/17 18:29 Hospitalization ordered by Trisha Hammond for Inpatient Admission. Preliminary diagnosis are Cholelithiasis, Acute pancreatitis. - Bed requested for Telemetry/MedSurg (Inpatient). - Status is Inpatient Admission. bp - Condition is Stable. - Problem is new. - Symptoms have improved. UTI on Admission? No Signatures: Dispatcher [employer] EDMS Yana Mnan, RN RN Sara Dumont RN RN ph Anjelica, Vidal, PA PA Sudeep Ribeiro MD MD wa Peltier, Brian, RN RN Trista Cobos mb4 Corrections: (The following items were deleted from the chart) 12/04 18:56 18:29 Hospitalization Ordered by Trisha Hammond MD for Inpatient Admission. Preliminary mb4 diagnosis is Cholelithiasis; Acute pancreatitis. Bed requested for Telemetry/MedSurg (Inpatient). Status is Inpatient Admission. Condition is Stable. Problem is new. Symptoms have improved. UTI on Admission? No. cp 21:11 18:56 12/04/2017 18:29 Hospitalization Ordered by Trisha Hammond MD for Inpatient bp Admission. Preliminary diagnosis is Cholelithiasis; Acute pancreatitis. Bed requested for Telemetry/MedSurg (Inpatient). Status is Inpatient Admission. Condition is Stable. Problem is new. Symptoms have improved. UTI on Admission? No. mb4
--- NOTE | 2017-12-04 18:29 | ER ---
Nurse's Notes [facility] Name: Shoaib Freitas Jr Age: 52 yrs Sex: Male : 1965 Arrival Date: 12/04/2017 Time: 14:48 Bed 5 Private MD: Diagnosis: Cholelithiasis;Acute pancreatitis Presentation: 12/04 15:04 Presenting complaint: Patient states: upper back pain and vomiting since today. sv Transition of care: patient was not received from another setting of care. Onset of symptoms was December 04, 2017. Care prior to arrival: None. 15:04 Method Of Arrival: Wheelchair sv 15:04 Acuity: COBY 3 sv 15:54 Risk Assessment: Do you want to hurt yourself or someone else? Patient reports no ph desire to harm self or others. Initial Sepsis Screen: Does the patient meet any 2 criteria? No. Patient's initial sepsis screen is negative. Does the patient have a suspected source of infection? No. Patient's initial sepsis screen is negative. Historical: - Allergies: 15:06 No Known Allergies; sv - Home Meds: 15:06 diltiazem HCl 240 mg Oral cpER 1 cap once daily for Hypertension [Active]; prednisone 5 sv mg Oral tab once daily [Active]; valsartan 40 mg Oral tab 1 tab once daily for Hypertension [Active]; - PMHx: 15:06 Hypertension; kidney transplant; sv - PSHx: 15:06 kidney transplant; sv - Immunization history:: Adult Immunizations up to date. - Social history:: Smoking status: Patient uses tobacco products, quit 2-3 weeks ago. - Ebola Screening: : No symptoms or risks identified at this time. Screenin:52 Abuse screen: Denies threats or abuse. Denies injuries from another. Nutritional ph screening: No deficits noted. Tuberculosis screening: No symptoms or risk factors identified. Fall Risk None identified. Assessment: 15:15 General: Appears in no apparent distress. uncomfortable, ill, Behavior is calm, ph cooperative, appropriate for age, Denies fever. 15:15 Pain: Complains of pain in left scapular area, right scapular area, left subscapular ph area, right subscapular area and thoracic area. Neuro: Level of Consciousness is awake, alert, obeys commands, Oriented to person, place, time, situation. Cardiovascular: Reports nausea, vomiting, Denies chest pain, shortness of breath, Capillary refill < 3 seconds in bilateral fingers Patient's skin is warm and dry. Respiratory: Airway is patent Respiratory effort is even, unlabored, Respiratory pattern is regular, symmetrical. GI: Abdomen is flat, non-distended, Bowel sounds present X 4 quads. Abd is soft and non tender X 4 quads. Reports nausea, vomiting, since this morning Patient currently denies abdominal pain, diarrhea. : No signs and/or symptoms were reported regarding the genitourinary system. Derm: Skin is intact, is healthy with good turgor, Skin is pink, warm \T\ dry. Musculoskeletal: Circulation, motion, and sensation intact. Range of motion: intact in all extremities. 15:51 Reassessment: Patient appears in no apparent distress at this time. Patient and/or ph family updated on plan of care and expected duration. Pain level reassessed. Patient is alert, oriented x 3, equal unlabored respirations, skin warm/dry/pink. Pt actively vomiting at this time, unable to obtain peripheral IV, PO antiemetic administered, see MAR, will attempt US guided IV. 19:00 Reassessment: RECD REPORT FROM RAMIRO SÁNCHEZ. 52YO BM P/W BACK PAIN AND VOMITING, ADMIT IN bp PROCESS. VS STABLE ON MONITOR. Vital Signs: 15:06 BP 137 / 90; Pulse 72; Resp 18; Temp 99; Pulse Ox 97% ; Weight 90.72 kg; Height 5 ft. sv 11 in. (180.34 cm); Pain 8/10; 16:00 BP 127 / 87; Pulse 78; Resp 18; Pulse Ox 99% on R/A; ph 17:00 BP 139 / 86; Pulse 76; Resp 16; Pulse Ox 98% on R/A; ph 18:00 BP 118 / 87; Pulse 75; Resp 18; Pulse Ox 98% on R/A; ph 19:30 BP 143 / 89; Pulse 90; Resp 16; Pulse Ox 97% ; bp 21:00 BP 133 / 90; Pulse 70; Resp 14; Pulse Ox 95% ; bp 15:06 Body Mass Index 27.89 (90.72 kg, 180.34 cm) sv ED Course: 14:48 Patient arrived in ED. as 15:05 Triage completed. sv 15:06 Arm band placed on right wrist. sv 15:10 Vidal Dejesus PA is PHCP. cp 15:10 Sudeep Rodriguez MD is Attending Physician. cp 15:19 Sara Dumont, PRINCESS is Primary Nurse. ph 15:34 EKG done, by photo tech. reviewed by Vidal SALOMON. sm3 15:39 X-ray completed. Portable x-ray completed in exam room. Patient tolerated procedure mh1 well. 15:53 XRAY Chest (1 view) In Process Unspecified. EDMS 15:53 Patient has correct armband on for positive identification. Placed in gown. Bed in low ph position. Call light in reach. Side rails up X 1. Pulse ox on. NIBP on. Warm blanket given. Pillow given. 16:07 Accessed peripheral vein via ultrasound, utilizing dynamic ultrasound technique using la1 18G Sureflo IV catheter per hospital protocol. 16:22 CT completed. Patient tolerated procedure well. Patient moved to CT. Patient moved back mw3 from CT. 16:23 CT Stone Protocol In Process Unspecified. EDMS 16:44 US Abdomen Limited In Process Unspecified. EDMS 18:28 Trisha Hammond MD is Hospitalizing Provider. cp 20:52 No provider procedures requiring assistance completed. Patient admitted, IV remains in fc place. Administered Medications: 15:52 Drug: Zofran 4 mg Route: PO; ph 19:00 Follow up: Response: Pain is decreased bp 16:58 Drug: ProTONIX 40 mg Route: IVP; Site: right antecubital; ph 19:01 Follow up: Response: No adverse reaction bp 19:20 Follow up: Response: No adverse reaction ph 16:58 Drug: Phenergan 25 mg Route: IVP; Site: right antecubital; ph 19:01 Follow up: Response: Pain is decreased bp 19:20 Follow up: Response: No adverse reaction ph 16:58 Drug: morphine 2 mg Route: IVP; Site: right antecubital; ph 19:01 Follow up: Response: Pain is decreased bp 16:59 Drug: NS 0.9% 500 ml Route: IV; Rate: bolus; Site: right antecubital; ph 19:18 Follow up: Response: No adverse reaction; IV Status: Completed infusion ph 17:30 Drug: NS 0.9% 1000 ml Route: IV; Rate: 100 ml/hr; Site: right antecubital; ph 19:19 Follow up: Response: No adverse reaction; IV Status: Infusion continued upon admission ph 19:00 Drug: morphine 4 mg Route: IVP; Site: right antecubital; bp 19:45 Follow up: Response: Pain is decreased bp 19:00 Drug: Zofran 4 mg Route: IVP; Site: right antecubital; bp 19:45 Follow up: Response: Nausea is decreased bp 19:00 Drug: Rocephin - (cefTRIAXone) 1 grams Route: IVPB; Infused Over: 30 mins; Site: right bp antecubital; 19:30 Follow up: IV Status: Completed infusion; IV Intake: 50ml bp 19:00 Drug: metroNIDAZOLE 500 mg Volume: 100 ml; Route: IVPB; Infused Over: 30 mins; Site: bp right antecubital; 20:00 Follow up: IV Status: Completed infusion; IV Intake: 100ml bp 19:00 Drug: NS 0.9% 1000 ml Route: IV; Rate: 1 bolus; Site: right antecubital; bp 20:58 Follow up: IV Status: Completed infusion bp 19:49 Not Given (Duplicate Order): Zofran 4 mg IVP once; over 2 minutes bp Intake: 19:30 IV: 50ml; Total: 50ml. bp 20:00 IV: 100ml; Total: 150ml. bp Outcome: 18:29 Decision to Hospitalize by Provider. cp 20:52 Admitted to Tele accompanied by [facility], via stretcher, room 411, with chart, Other report fc called to Zabrina SÁNCHEZ 20:52 Condition: good 20:52 Discharge instructions given to patient, family, Instructed on the need for admit, Demonstrated understanding of instructions. 21:11 Patient left the ED. bp Signatures: Dispatcher [employer] EDMS Yana Mann RN RN sv Harvey, Martha 1 Mary Samayoa RN RN fc Martinez, Amelia as Attema, Lee RN RN Sara Wilson RN RN ph Vidal Dejesus PA PA cp Mic Cardozo RN RN bp Claudia Roe 3 Xiomara Ramirez mw3 Corrections: (The following items were deleted from the chart) 15:40 15:35 Patient moved to radiology via wheelchair. [place] [id number] 15:40 15:35 Note: PT REFUSED W/C FOR TRANSPORT, HE AMBULATED TO X RAY DEPT. [place] [id number] 15:35 X-ray completed. Patient tolerated procedure well. [place] [id number] 15:35 Patient moved back from radiology. [place] [id number]
[2017-12-04] MEDS ORDERED: ACETAMINOPHEN 500 MG TAB PO PRN (18:31)
[2017-12-04] MEDS ORDERED: ONDANSETRON 4 MG/2 ML VIAL IV PRN (18:31)
[2017-12-04] MEDS ORDERED: SODIUM CHLORIDE 0.9% 10ML INJ IV PRN (18:35)
[2017-12-04] MEDS: METRONIDAZOLE 500mg IVPB 500 MG/100 ML BAG IV SCH (19:00)
[2017-12-04] MEDS ORDERED: ONDANSETRON 4 MG/2 ML VIAL ONE (19:37)
[2017-12-04] MEDS ORDERED: CEFTRIAXONE/SWI 1gm 1 GM/10 ML SYR ONE (19:37)
[2017-12-04] MEDS ORDERED: METRONIDAZOLE 500mg IVPB 500 MG/100 ML BAG IV ONE (19:37)
--- NOTE | 2017-12-04 19:50 | P.HP ---
Certification for Inpatient Patient admitted to: Inpatient With expected LOS: >2 Midnights Practitioner: I am a practitioner with admitting privileges, knowledge of patient current condition, hospital course, and medical plan of care. Services: Services provided to patient in accordance with Admission requirements found in Title 42 Section 412.3 of the Code of Federal Regulations Patient History Date of Service: 12/04/17 Reason for admission: Acute pancreatitis History of Present Illness: Mr Freitas is a 52-year-old man with history of hypertension, kidney transplant , who came to the ER complaining of back pain associated with nausea vomiting. He symptoms started today, he denied any diarrhea, fever or chills. He has had this kind of pain in the past. In ER workup lab work remarkable for leukocytosis 13.2 K, lipase 1382. CT abdomen and pelvis shows cholelithiasis, Perigastric inflammatory changes and lymphadenopathy noted in the region of the gastric antrum. This is concerning for a gastric malignancy in this location. 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 - Family History Mother -: Hypertension, Diabetes Father -: Hypertension, Diabetes - Social History Smoking Status: Former smoker Alcohol use: Yes CD- Drugs: No Caffeine use: Yes Place of Residence: Home Review of Systems 10-point ROS is otherwise unremarkable Physical Examination - Physical Exam General: Alert, In no apparent distress HEENT: Atraumatic, PERRLA, Mucous membr. moist/pink, EOMI, Sclerae nonicteric Neck: Supple, 2+ carotid pulse no bruit, No LAD, Without JVD or thyroid abnormality Respiratory: Clear to auscultation bilaterally, Normal air movement Cardiovascular: Regular rate/rhythm, Normal S1 S2 Gastrointestinal: Normal bowel sounds, Tenderness (LUQ, and eigastrium) Musculoskeletal: No tenderness Integumentary: No rashes Neurological: Normal speech, Normal strength at 5/5 x4 extr, Normal tone, Normal affect Lymphatics: No axilla or inguinal lymphadenopathy - Studies Laboratory Data (last 24 hrs) 12/04/17 15:37: PT 11.2, INR 0.95, APTT 18.2 L 12/04/17 15:37: WBC 13.2 H, Hgb 12.7 L, Hct 37.8 L, Plt Count 343 12/04/17 15:37: Sodium 139, Potassium 3.6, BUN 11, Creatinine 1.10, Glucose 103 , Magnesium 2.2, Total Bilirubin 0.4, AST 19, ALT 31, Alkaline Phosphatase 67, Lipase 1384 H Assessment and Plan - Problems (Diagnosis) (1) Pyelonephritis of transplanted kidney Current Visit: Yes Status: Acute (2) History of renal transplantation Current Visit: No Status: Chronic (3) Pancreatitis Current Visit: Yes Status: Acute Qualifiers: Chronicity: acute Pancreatitis type: unspecified pancreatitis type Acute pancreatitis complication: no infection or necrosis Qualified Code(s): K85.90 - Acute pancreatitis without necrosis or infection, unspecified (4) Cholelithiasis Current Visit: No Status: Acute Qualifiers: Cholelithiasis location: gallbladder Cholecystitis acuity: unspecified acuity Biliary obstruction: without biliary obstruction - Plan 1. Acute pancreatitis: The patient has cholelithiasis, therefore stone pancreatitis is with differential diagnosis. However, CT abdomen and pelvis showed normal pancreas. The study also showed perigastric inflammatory signs with lymphadenopathy which are concerning for malignancy. More workup is needed. In the meantime continue empiric antibiotic treatment, IV fluid, bowel rest. Will consult GI specialist for evaluation recommendation. 2. History of kidney transplant: CT scan also shows mild perinephric and periureteric fat stranding that could indicate inflammation/infection, although a similar appearance was was present on the prior study as well. UA is still pending. He will receive empiric antibiotic treatment to treat potential infection. - Advance Directives Does patient have a Living Will: No Does patient have a Durable POA for Healthcare: No - Code Status/Comfort Care Code Status Assessed: Yes Code Status: Full Code
[2017-12-04 21:22] LABS: Urine Appearance CLEAR; Urine Bilirubin NEGATIVE (NEG); Urine Blood 3+ (NEG); Urine Color YELLOW; Urine Glucose NEGATIVE (NEG); Urine Protein 3+ (NEG); Urine Specific Gravity 1.025 (1.005-1.030); Urine pH 6.5 (5.0-7.0)
[2017-12-04 21:24] VITALS: BMI 26.8
[2017-12-04 21:33] LABS: Urine Bacteria <20 /HPF (NONE SEEN); Urine Culture Reflex Order NOT NEEDED; Urine RBC >50 /HPF (NONE SEEN)
[2017-12-04 21:34] LABS: Urine Mucus SLIGHT /HPF (NONE SEEN)
[2017-12-04] MEDS: CIPROFLOXACIN 400mg IV 400 MG/200 ML BAG IV SCH (21:46)
[2017-12-04] MEDS: D5.45NS W/KCL 20MEQ 1,000 ML IV SCH (21:46)
[2017-12-04] MEDS: PANTOPRAZOLE 40 MG INJ IVP SCH (21:46)
[2017-12-04] MEDS: D50W 25 GM/50 ML SYRINGE IV ONE ×2 (21:47→21:49)
[2017-12-04] MEDS: MORPHINE 4 MG/ML SYR IV PRN (23:20)
[2017-12-05] MEDS: METRONIDAZOLE 500mg IVPB 500 MG/100 ML BAG IV SCH ×3 (01:26→16:14)
[2017-12-05] MEDS: MORPHINE 4 MG/ML SYR IV PRN ×5 (03:32→20:10)
[2017-12-05] MEDS: D5.45NS W/KCL 20MEQ 1,000 ML IV SCH ×2 (05:15→15:00)
[2017-12-05 05:36] LABS: Absolute Lymphocytes (CBC) 3.5 K/uL (0.7-4.9); Absolute Monocytes 1.2 K/uL (0.1-1.3); Absolute Neutrophil 6.6 K/uL (1.8-8.0); Basophils % 0.2 % (0-1.3); Eosinophils % 1.2 % (0-4.4); Hematocrit 35.4 % (39.6-49.0); Lymphocytes % 30.8 % (15.3-44.8); MCH 32.9 pg (27.0-35.0); MCV 94.5 fL (80-100); MPV 8.3 fL (7.6-11.3); Monocytes % 10.4 % (3.3-12.3); RBC Red Blood Cell Count 3.75 M/uL (4.33-5.43)
[2017-12-05 05:55] LABS: Blood Morphology Comment NOT SEEN (NOT SEEN); Platelet Estimate ADEQ; Urine White Blood Cell Casts OK
[2017-12-05 06:12] LABS: ALT/SGPT 23 U/L (12-78); AST/SGOT 18 U/L (15-37); Alkaline Phosphatase 57 U/L (45-117); BUN Blood Urea Nitrogen 11 mg/dL (7-18); Bicarbonate 26 mmol/L (21-32); Bilirubin Total 0.3 mg/dL (0.2-1.0); Glucose Level 84 mg/dL (74-106); Potassium 3.7 mmol/L (3.5-5.1); Protein, Total 6.9 g/dL (6.4-8.2); Sodium Level 141 mmol/L (136-145)
[2017-12-05] MEDS ORDERED: KCL 20 MEQ/100 mL IVPB 20 MEQ/100 ML BAG IV SCH (07:00)
--- NOTE | 2017-12-05 08:33 | EKG ---
Test Date: 2017-12-04 Test Time: 15:28:07 Bag Worker: TAMMIE MEASUREMENT RESULTS: Intervals: Rate: 73 WV: 134 QRSD: 94 QT: 394 QTc: 434 [place]: P: 21 WV: 134 QRS: 13 T: 25 INTERPRETIVE STATEMENTS: Normal sinus rhythm Normal ECG Compared to ECG 11/07/2017 07:22:50 No significant changes Electronically Signed On 12-05-17 08:32:50 CDT by Karson Thomas
[2017-12-05] MEDS: CIPROFLOXACIN 400mg IV 400 MG/200 ML BAG IV SCH ×2 (08:54→20:11)
[2017-12-05] MEDS: PANTOPRAZOLE 40 MG INJ IVP SCH ×2 (08:55→20:10)
[2017-12-05] MEDS ORDERED: PROPOFOL 200 MG/20 ML VIAL IV ONE (13:29)
[2017-12-05] MEDS ORDERED: Ringers Lactate 1,000 ML IV ONE (13:33)
--- NOTE | 2017-12-05 14:34 | ENDO RPT ---
[address], [address] EGD PROCEDURE REPORT EXAM DATE: 12/05/2017 PATIENT NAME: Shoaib Freitas MR#: [id number] BIRTHDATE: 1965 ATTENDING: Sudeep Klein Dr STATUS: inpatient FOOD AND DRUG INSPECTOR: Cris Lyn RN and Alondra Posada RN INDICATIONS: The patient is a 52 yr old Male here for an EGD due to abdominal pain, nausea and vomiting, abnormal CT abdomen revealing possible gastric mass, and weight loss PROCEDURE PERFORMED: EGD with biopsy MEDICATIONS: Per Anesthesia. TOPICAL ANESTHETIC: none CONSENT: The patient understands the risks and benefits of the procedure and understands that these risks include, but are not limited to: sedation, allergic reaction, infection, perforation and/or bleeding. Alternative means of evaluation and treatment include, among others: physical exam, x-rays, and/or surgical intervention. The patient elects to proceed with this endoscopic procedure. DESCRIPTION OF PROCEDURE: During intra-op preparation period all mechanical medical equipment was checked for proper function. Hand hygiene and appropriate measures for infection prevention was taken. Procedure, possible complications, and alternatives including but not limited to the possibility of bleeding, perforation, tear, infection, sepsis, need for surgery, need for blood transfusion, and anesthesia related complications were explained to the patient. After the risks, benefits and alternatives of the procedure were thoroughly explained, Informed consent was verified, confirmed and timeout was successfully executed by the treatment team. The patient was placed in the left lateral position. The patient was anesthetized with topical anesthesia. Through the anesthetized oropharyngeal area, the scope was passed without any difficulty. The [id number] ([id number]) endoscope was introduced through the mouth and advanced to the descending duodenum. Retroflexed views revealed a small hiatal hernia. The gastroscope was then slowly withdrawn and removed. A Schatzki's ring was found in the lower esophagus. A small hiatal hernia was found A 2 mm ulcer was found in the antrum. Multiple biopsies were obtained and sent to pathology. A large 1 cm ulcer was found at the pylorus. ADVERSE EVENTS: There were no complications. IMPRESSIONS: 1. Schatzki's ring in the lower esophagus (no history of dysphagia) 2. Small hiatal hernia 3. 2 mm clean-based ulcer in the pre-pyloric antrum pyloric channel RECOMMENDATIONS: 1. await biopsy results 2. acid suppression therapy REPEAT EXAM: Return in 3 month(s) for EGD. Sudeep Klein Dr eSigned: Sudeep Klein Dr 12/05/2017 2:25 PM cc: CPT CODES: ICD9 CODES: PATIENT NAME: Shoaib Freitas MR#: [id number]
--- NOTE | 2017-12-05 18:09 | PN ---
Subjective: Currently, the patient is lying in bed. He looks comfortable. He is n.p.o. for EGD. H e is hungry. Have no chest pain, but he does have some upper abdominal pain and distention. No naus ea or vomiting this morning. Review of Systems: Otherwise, as below. Objective: Vital Signs: Blood pressure is 123/71, respiratory rate 17, pulse of 57, temperature 97. 2. General: The patient is alert, oriented x3. Does not look in any distress. HEENT: Atraumatic, normocephalic. PERRLA. Oral mucosa is moist. Neck: Supple. No JVD. No carotid bruits. Chest: Clear to auscultation. Good air entry. Heart: Regular rate and rhythm. S1, S2 normal. No gallop or murmur. Abdomen: Tender in the left upper quadrant and epigastric area. Active bowel sounds. No guarding o r rebound. Extremities: No clubbing. No cyanosis. No edema. No calf tenderness. Neurologic: Grossly intact. Cranial nerves exam 2 through 12 intact. Normal sensation. Normal ref lexes. Normal muscle strength. Laboratory Data: Labs showed CBC were normal except for white blood cells 11.4, hemoglobin 12.3, krista telet 258. Chemistry within normal including LFTs. Glucose slightly elevated at 161. UA was negati ve. So far, blood cultures, pending, negative. Assessment And Plan: 1.This is a 52-year-old gentleman admitted with a back pain, nausea, vomiting, and abdominal distent ion. Ultrasound consistent with cholelithiasis, evidence of pancreatitis on labs, CT, but a question able change in the gastric area with lymphadenopathy. The patient is going to have Esophagogastroduo denoscopy today and biopsy hopefully. Continue supportive care. We will resume diet after Esophagog astroduodenoscopy is done. The patient is empirically on Cipro and Flagyl at this point. 2.History of CT showed questionable perinephric and periureteric fat stranding concerning for infection inflammation. UA was done, was negative. The patient on empiric antibiotics. Contin ue. 3.Intractable nausea, vomiting, and pain. 4.No deep vein thrombosis prophylaxis as I am worried the patient may need . 5.Symptomatic treatment for pain. 6.Hypertension. Continue losartan. JAVI/ASHLEY Voice ID: [id number] Report ID: [id number]
--- NOTE | 2017-12-05 19:14 | CON ---
Date of Consultation: 12/05/2017 History Of Present Illness: The patient is a 52-year-old male, who presented to [facility] due to abdominal pain with nausea, vomiting. The patient states that he is in his usual state of health until approximately 2 to 3 days ago, started having some abdominal pain, radiating to his b ack and nausea, vomiting. He was found to have a white count elevated at 13.2, lipase of 1332. CT o f abdomen and pelvis revealed cholelithiasis, however, there was no pancreatitis noted. Surprisingly , the patient had perigastric inflammatory changes with lymphadenopathy in the region of the gastric antrum, suspicious for cancer. EGD recommended for evaluation. The patient denies any type of upper abdominal pain, but he did have nausea, vomiting, pain predominantly in the right and left lower pankaj drant. He has lost approximately 10 pounds over the past 3 weeks. The patient states he has been shaver ving this pain off and on over the past year with some nausea, vomiting, especially after he eats. Past Medical History: Significant for hypertension, end-stage renal disease, status post kidney mosley splant 17 years ago, tobacco abuse in the past. Social History: The patient is engaged for second , has 2 children. His daughter is alive an d well. Son 2 years ago in a drive-by shooting by accident. 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 Family History: Father is alive at 84 with diabetes, hypertension. Mother of congestive heart failure and chronic kidney disease. Sister of breast cancer 2 years ago in 2016. Review of Systems: The patient had left lower quadrant pain, nausea, vomiting of yellow bilious material, 10-pound weigh t loss over the past 3 weeks, some back pain, right and left lower quadrant pain. He denies any cl na, hematochezia, hematemesis, coffee-ground emesis, hematuria, dysuria, polydipsia, chest pain, shor tness of breath, seizure, syncope, depression, anxiety. Physical Examination: Vital Signs: The patient is 5 feet, 11 inches, 102 pounds, BMI 26.1 kg/m2. He has a temperature 97 degrees Fahrenheit, pulse 61, respirations 16, blood pressure 135/79, O2 saturation 100%. General: He is well-nourished, well-developed male, lying in bed, no acute distress. HEENT: Normocephalic, atraumatic. Anicteric. Pupils equal, round, and reactive to light. Extraocu lar movements are intact. Oropharynx is clear. Neck: Supple. No masses. Respirations: Clear to auscultation bilaterally. Cardiac: Regular rate and rhythm. No gallops or rubs. Abdomen: Positive bowel sounds. Soft, nontender, nondistended. No hepatosplenomegaly. Extremities: No clubbing, cyanosis, or edema. 2+ pulses. Neuro: Alert and oriented x3. Grossly nonfocal. 5/5 motor strength and light touch. Data: The patient has a white count 11.4, down from 13.2 yesterday; hemoglobin of 12.3; hematocrit 3 5.4; MCV of 95; platelet count 258; polys of 57, down from 81% yesterday; lymphocytes 31%; monocytes 10%; eosinophils 1%. PT of 11.2, INR of 1.0, PTT of 18.2. The patient has sodium 141, potassium 3.7 , chloride 109, bicarb 26, BUN of 11, creatinine of 1.0, glucose 84, calcium 9.1, total bilirubin of 0.3, AST of 18, ALT of 23, alkaline phosphatase 57, total protein 6.9, albumin 3.0. Lipase yesterday was 1384 with AST and ALT normal at 19 and 31 respectively, alkaline phosphatase normal yesterday at 67, total bilirubin normal yesterday at 0.4. UA revealed 2+ ketones, 3+ blood, greater than 50 rbc' s in the blood, less than 5 white blood cells, 4 squamous epithelial cells, less than 20 bacteria, 3+ protein. Report, ultrasound of abdomen reveals extensive cholelithiasis. Common bile duct is omaira l at 6 mm. No pericholecystic fluid. No gallbladder wall thickening. CT of the abdomen and pelvis was negative for pancreatitis, however, did show perigastric inflammatory changes and lymphadenopathy in the gastric antrum area indicative of possibly cancer of the gastric antrum. Also, there was jordan e left lower quadrant transplant kidney with mild perinephric and periureteric fat stranding may nick joaquina inflammation, infection of the genitourinary system, correlation with urinalysis recommended. Impression: 1.Possible gastric cancer. CT of the abdomen and pelvis revealed perigastric inflammatory changes a nd increased lymphadenopathy, nearby. The patient also has a 10-pound weight loss over the past 3 we eks. We will need to investigate with EGD. The patient also reports nausea, vomiting yellow fluid, but no fevers, chills. No melena, hematochezia, hematemesis, coffee-ground emesis. 2.Possible gallstone pancreatitis. The patient has multiple gallstones noted on ultrasound of abdom en and on CT. However, the patient has no pancreatitis noted on CT scan. His lipase being 1382, I b elieve. His abdominal pain is predominantly lower right and left lower quadrant and nausea and vomit ing. 3.Probable genitourinary infection with stranding around the kidneys noted on CT scan. UA is somewh at equivocal, however, no blood and white cells noted. Other as per above. Recommendation: 1.Proceed with EGD. 2.Check MRCP. 3.Monitor labs. 4.Continue IV fluids, IV antibiotics. WAN/ASHLEY Voice ID: [id number] Report ID: [id number]
[2017-12-06] MEDS: MORPHINE 4 MG/ML SYR IV PRN ×6 (00:12→22:55)
[2017-12-06] MEDS: METRONIDAZOLE 500mg IVPB 500 MG/100 ML BAG IV SCH ×3 (01:53→18:25)
[2017-12-06 05:56] LABS: Potassium 3.9 mmol/L (3.5-5.1)
[2017-12-06] MEDS ORDERED: POTASSIUM CL SA 10 MEQ TAB PO ONE (06:25)
[2017-12-06] MEDS: PANTOPRAZOLE 40 MG INJ IVP SCH ×2 (08:28→21:36)
[2017-12-06] MEDS: CIPROFLOXACIN 400mg IV 400 MG/200 ML BAG IV SCH ×2 (08:28→21:35)
[2017-12-06] MEDS: DILTIAZEM HCL 120 MG SR CAP PO SCH ×2 (08:28→21:38)
[2017-12-06] MEDS: predniSONE 5 MG TAB PO SCH (08:28)
[2017-12-06] MEDS: VALSARTAN 80 MG TAB PO SCH (08:29)
[2017-12-06] MEDS ORDERED: HOME MED 1 EA UNK (Diltiazem Hcl [Diltiazem 24hr Er] 240 MG) PO SCH (09:00)
[2017-12-06] MEDS ORDERED: VALSARTAN 40 MG TAB PO SCH (09:00)
--- NOTE | 2017-12-06 10:47 | P.PN ---
Subjective Date of Service: 12/06/17 Chief Complaint: N/V, wt loss, abn CT abd/pel, large ulcer, gallstone pancreatitis Subjective: Improving (Feels better. No abdominal pain / N / V. Wants to eat regular food.) Review of Systems 10-point ROS is otherwise unremarkable Gastrointestinal: Nausea (none today.) Physical Examination - Vital Signs Temperature: 97.4 F Blood Pressure: 117/69 Pulse: 59 Respirations: 18 Pulse Ox (%): 100 - Physical Exam General: Alert, In no apparent distress, Oriented x3, Cooperative HEENT: Atraumatic, Normocephalic, PERRLA, EOMI Neck: Supple Respiratory: Normal air movement Gastrointestinal: Soft and benign, No tenderness, No rebound, No guarding Neurological: Normal speech, Normal strength at 5/5 x4 extr Assessment And Plan - Current Problems (Diagnosis) (1) Gallstone pancreatitis Current Visit: Yes Status: Acute Comment: Normal amylase / lipase now. No abdominal pain. Now N/V resolved. Would benefit from lap sarahy to prevent recurrence of pancreatitis, but has marked perigastric inflammation from pyloric ulcer on CT. (2) Nausea & vomiting Current Visit: Yes Status: Acute (3) Ulcer of pyloric antrum Current Visit: Yes Status: Acute Comment: Should continue PPI bid for 3 months and then repeat EGD with biopsies of large ulcer if still present. (4) Abnormal CT of the abdomen Current Visit: Yes Status: Acute (5) Cholelithiasis Current Visit: No Status: Acute Qualifiers: Cholelithiasis location: gallbladder Cholecystitis acuity: unspecified acuity Biliary obstruction: without biliary obstruction - Plan REC: 1) continue PPI bid for 3 months and then repeat EGD with biopsies of large ulcer if still present 2) check gastrin level 3) check MRCP 4) surgery consult to assess possibility of lap sarahy for gallstone pancreatitis , in setting of perigastric inflammation noted on CT
--- NOTE | 2017-12-06 18:07 | PN ---
Subjective: Currently, the patient is lying in bed. He is hungry. He wants to eat. Have no chest pain, no abdominal pain. No nausea, no vomiting. He had EGD yesterday and he is waiting to be seen by the surgeon to decide if he is going to have cholecystectomy or not. Objective: Vital Signs: Blood pressure is 117/69, respiratory rate 18, pulse 59, temperature 97.4. General: The patient is alert and oriented x3. Does not look in any distress. HEENT: Atraumatic, normocephalic. PERRLA. Oral mucosa is moist. Neck: Supple. No JVD. No carotid bruits. Chest: Clear to auscultation. Good air entry. Heart: Regular rate and rhythm. S1, S2 normal. No gallop or murmur. Abdomen: Soft with minimal tenderness in the left epigastric area and left upper quadrant. There is no guarding or rebound. Extremities: No clubbing, cyanosis, or edema. No calf tenderness. Neurologic: Grossly intact. Laboratory Data: Today showed CBC with white blood cells 7.4, hemoglobin 12.3, platelet 258. Chemistry within normal. EGD done yesterday showed large gastric ulcer. Assessment And Plan: 1. Large gastric ulcer, status post EGD. The patient on PPI, continue. Pathology is still pending. 2. Questionable pancreatitis gallstone-induced most likely normal amylase and lipase. Surgical consult for GI to consider cholecystectomy pending. 3. Nausea, vomiting resolved. 4. Adenopathy on CT abd, I would be great if we can get biopsy form these nodes when the patient is getting cholecystectomy to make sure they are inflammatory and not malignant. 5. Hypertension. Continue losartan. Well controlled. 6. Symptomatic treatment for pain. 7. Continue empiric antibiotic with Flagyl and Cipro if pt is going to have surgery, otherwise we could DC JAVI/ASHLEY Voice ID: [id number] Report ID: [id number] MTDSharla
--- NOTE | 2017-12-06 21:07 | CON ---
Date of Consultation: 12/06/2017 History Of Present Illness: Mr. Freitas is a 52-year-old patient, seen by the medical service and a recruiting operations consultant service due to gastric tumor and pancreatitis. The patient has a history of kidne y trauma about 20 years ago with chronic abdominal pain. The patient found to have an initial GI eval uation, a possibility of gastric malignancy. At the same time, the patient found to have gallstones and a surgical consult was obtained. Past Medical History: Include renal transplant, hypertension. Social Habits: The patient drinks, he say occasionally. Family History: Includes hypertension and diabetes. Allergies: NONE. Review of Systems: Constitutional: Denies any fever. Gastrointestinal: The patient has on and off epigastric pain better right now. Currently nontender. Respiratory: Denies any shortness of breath. Genitourinary: Denies any dysuria, hematuria. The patient has history of kidney transplant. He cai s not remember his immunosuppressive medication. The patient is awake and alert. HEENT: Pupils anicteric. Neck: Supple. Chest: Clear. Abdomen: Soft and depressible. No guarding or rebound. No peritoneal signs. No Faulkner signs. Laboratory Data: Blood work shows WBC count of 11.4, hemoglobin of 12.3, INR 0.95. LFTs were in nor mal limits. Assessment: A 52-year-old patient with gastric tumor and on endoscopy apparently the patient also fo und a tumor, cannot rule out cancer with some inflammation and lymphadenopathy around the area. From the surgical standpoint, even though he has stones in that area, right now, does not seem to be the cause of that. MRCP is pending to see if there is any stone in the common bile duct. If that is the case, then ERCP might be done and then hold the gallbladder surgery until the stomach pathology is c larified since may need to be addressed first. in the meantime pending the GI clearance. If he gets discharged, I will encourage him to go to a med center, specifically renal transplant [facility] where they cannot just help him with a stomach cancer but also watch the kidneys during that. RAVI/ASHLEY Voice ID: [id number] Report ID: [id number]
[2017-12-07] MEDS: METRONIDAZOLE 500mg IVPB 500 MG/100 ML BAG IV SCH ×3 (00:36→16:37)
[2017-12-07] MEDS: MORPHINE 4 MG/ML SYR IV PRN ×3 (04:29→12:51)
[2017-12-07 07:27] LABS: BUN Blood Urea Nitrogen 10 mg/dL (7-18); Bicarbonate 29 mmol/L (21-32); Glucose Level 86 mg/dL (74-106); Magnesium 2.2 mg/dL (1.8-2.4); Potassium 3.7 mmol/L (3.5-5.1); Sodium Level 140 mmol/L (136-145)
--- NOTE | 2017-12-07 08:40 | RAD REPORT ---
EXAM DESCRIPTION: MRI - Cholangiogram - 12/07/2017 8:27 am CLINICAL HISTORY: Abdominal pain, multi stone cholelithiasis COMPARISON: Ultrasound December 04 TECHNIQUE: Axial and coronal T2 weighted images were obtained. Coronal static and reformatted T2 has te fat saturation sequences obtained. Maximum intensity projection 3D rotational images generated and reviewed. FINDINGS: Gallbladder is packed with variable sized gallstones. Gallbladder wall does not appear thi ckened or edematous on MR CT criteria. Pancreatic duct is not dilated. No intrahepatic or extrahepatic biliary tree dilatation identified. C ommon bile duct is 6-7 mm in size. No duct stone, stricture IMPRESSION: No duct stone or biliary tree dilatation. Gallbladder packed with multiple small gallstones.
[2017-12-07] MEDS: PANTOPRAZOLE 40 MG INJ IVP SCH ×2 (09:00→20:40)
[2017-12-07] MEDS: CIPROFLOXACIN 400mg IV 400 MG/200 ML BAG IV SCH ×2 (09:00→20:29)
[2017-12-07] MEDS: VALSARTAN 80 MG TAB PO SCH ×2 (09:00→10:56)
[2017-12-07] MEDS: DILTIAZEM HCL 120 MG SR CAP PO SCH ×3 (09:00→20:30)
[2017-12-07] MEDS: predniSONE 5 MG TAB PO SCH (10:57)
[2017-12-07] MEDS: HYDROCODONE/APAP 5/325 MG TAB PO PRN (17:44)
--- NOTE | 2017-12-07 21:19 | PN ---
Date of Progress Note: 12/07/2017 Subjective: The patient is seen and examined. Chart reviewed and case discussed with Dr. Cramer. The patient denies any abdominal pain, nausea, or vomiting. Review of Systems: Negative except as above. Medications: List reviewed. Physical Examination: Vital Signs: Temperature 97, heart rate 71, blood pressure 148/89, respirations 18, O2 of 100% on ro om air. General: Awake, alert, oriented x3, not in any acute distress. CV: S1, S2. No murmurs. Respiratory: Moving air well bilaterally. No wheezing. Gastrointestinal: Abdomen is soft, nontender, nondistended. Positive bowel sounds. Extremities: No clubbing, cyanosis, edema. No calf tenderness. Neurologic: Nonfocal. Laboratory Data: Sodium 140, potassium 3.7, chloride 106, CO2 of 29, BUN 10, creatinine 1, glucose 8 6, calcium 9.1, magnesium 2.2. WBC pending. Blood cultures, no growth to date. Endoscopy, surgical specimen, pathology pending. MRCP shows no duct stone or biliary tree dilatation. Gallbladder pack ed with multiple gallstones. Assessment: A 52-year-old male with: 1.Acute abdominal pain secondary to gastric ulcer. 2.Large gastric ulcer status post esophagogastroduodenoscopy, pathology pending. We will continue o n PPI. Will need to be discharged on PPI b.i.d. for at least 3 months and have repeat esophagogastro duodenoscopy. 3.Questionable gallstone pancreatitis. Dr. Cramer feels that cholecystectomy will be down the brissa e by his transplant doctors after his inflammation has improved. 4.Intractable nausea and vomiting, resolved. 5.Adenopathy. The patient needs a biopsy to rule out malignancy. We will discuss with Gastrointest inal and Interventional Radiology for possible lymph node biopsy. 6.Essential hypertension, stable. 7.Gastrointestinal and deep venous thrombosis prophylaxis. Plan: Continue antibiotic therapy. Plan lymph node biopsy. Otherwise, patient needs to follow up w ith his transplant doctors and have biopsy done through them at the [facility]. Follow up on gastrin level and path report. SA/MODL Voice ID: [id number] Report ID: [id number]
--- NOTE | 2017-12-07 22:43 | PN ---
Date of Progress Note: 12/07/2017 Diagnoses: Pancreatitis, cholelithiasis, gastric tumor. Subjective: A 52-year-old patient, comes to us with gastric tumor, cholelithiasis, and pancreatitis, common bile duct seems to be clear, judging by the MRCP. The patient is improving and no pain at th is moment. Review of Systems: Ten points otherwise unremarkable. Objective: General: The patient is awake, alert, in no distress. HEENT: Pupils are equal and reactive, anicteric. Neck: Supple. Chest: Clear. Abdomen: Soft and depressible. No guarding, rebound, or peritoneal signs. No Faulkner signs. Extremities: Good capillary refill. Blood Work: Shows WBC count of 11.4, that was from 2 days ago, and also today potassium 3.7, with cr eatinine is 1.0. Last time we checked the LFTs were normal. MRCP done 12/07/2017 shows no duct ston e or biliary tree dilatation, multiple gallstones. Assessment And Plan: This is a 52-year-old patient with multiple problems of pancreatitis, gallstone s, although no common bile duct stones, and also a gastric tumor. He has had endoscopy and biopsies were sent by the GI doctor. I believe, we have to address that issue first. Whenever that issue is addressed and the pancreatitis is addressed, then eventually we can do elective cholecystectomy for the gallstones. RAVI/ASHLEY Voice ID: [id number] Report ID: [id number]
[2017-12-08] MEDS: METRONIDAZOLE 500mg IVPB 500 MG/100 ML BAG IV SCH ×3 (00:37→18:16)
[2017-12-08] MEDS: HYDROCODONE/APAP 5/325 MG TAB PO PRN ×4 (00:37→18:21)
[2017-12-08 04:16] LABS: Absolute Lymphocytes (CBC) 2.6 K/uL (0.7-4.9); Absolute Monocytes 0.9 K/uL (0.1-1.3); Absolute Neutrophil 5.9 K/uL (1.8-8.0); Basophils % 0.6 % (0-1.3); Hematocrit 32.8 % (39.6-49.0); Lymphocytes % 26.1 % (15.3-44.8); MCH 31.2 pg (27.0-35.0); MCV 91.4 fL (80-100); MPV 7.8 fL (7.6-11.3); Monocytes % 9.3 % (3.3-12.3); RBC Red Blood Cell Count 3.59 M/uL (4.33-5.43)
[2017-12-08 04:38] LABS: Bilirubin Total 0.2 mg/dL (0.2-1.0); Potassium 3.8 mmol/L (3.5-5.1); Protein, Total 6.7 g/dL (6.4-8.2)
[2017-12-08] MEDS ORDERED: POTASSIUM CL SA 10 MEQ TAB PO ONE (09:00)
[2017-12-08] MEDS: PANTOPRAZOLE 40 MG INJ IVP SCH ×2 (09:50→21:30)
[2017-12-08] MEDS: VALSARTAN 80 MG TAB PO SCH (09:51)
[2017-12-08] MEDS: DILTIAZEM HCL 120 MG SR CAP PO SCH ×2 (09:51→21:30)
[2017-12-08] MEDS: predniSONE 5 MG TAB PO SCH (09:53)
[2017-12-08] MEDS: CIPROFLOXACIN 400mg IV 400 MG/200 ML BAG IV SCH ×2 (10:00→21:30)
--- NOTE | 2017-12-08 21:05 | PN ---
Date of Progress Note: 12/08/2017 History Of Present Illness: The patient was seen and examined. Chart was reviewed and case discusse d with RN and Dr. Cramer as well as Dr. Klein. Dr. Klein and Dr. Cramer recommend cholecystect sherwin, unable to be done at this facility. The patient is a transplant patient. We will initiate mosley sfer to a facility where his transplant team is available. Review of Systems: Negative except as above. Medications: List reviewed. Physical Examination: Vital Signs: Temperature 97.8, heart rate 73, blood pressure 119/82, respirations 18, O2 of 99% on r oom air. General: Awake, alert, oriented x3, not in acute distress. CV: S1, S2. No murmurs. Regular rate and rhythm. Peripheral pulses present. Respiratory: Moving air well bilaterally. No wheezing. Gastrointestinal: Abdomen is soft, nontender, nondistended. Positive bowel sounds. Extremities: No clubbing, cyanosis, edema. Neurologic: Nonfocal. Laboratory Data: Sodium 139, potassium 3.8, chloride 104, CO2 of 29, BUN 17, creatinine 1.2, glucose 101, calcium 8.9, albumin 3. Gastrin level pending. WBC 9.9, H and H of 11.2 and 32.8, platelets 3 06, neutrophils 60%. Blood cultures, Gram stain shows gram-positive cocci in clusters. No growth to date. Assessment: A 52-year-old male with: 1.Acute abdominal pain secondary to gastric ulcer. 2.Large gastric ulcer, status post esophagogastroduodenoscopy. Pathology specimen did not show any malignancy, shows [id number] chronic active gastritis. No Helicobacter pylori organisms iden tified. We will continue PPI b.i.d. Repeat EGD in 3 months. 3.Probable gallstone pancreatitis, resolved. 4.Cholecystitis. The patient recommended to have cholecystectomy; however, unable to be done at [facility] facility. Recommend transfer to a facility where patient has his transplant doctors. 5.Intractable nausea and vomiting, resolved. 6.Adenopathy. Unable to do CT-guided biopsy in the gastric region to obtain biopsy of the lymph nod es, may be due to gastritis; however, malignancy is a possibility. 7.Essential hypertension. 8.Gastrointestinal and deep venous thrombosis prophylaxis addressed. 9.Status post kidney transplant. Plan: We will attempt to transfer the patient. SA/MODL Voice ID: [id number] Report ID: [id number]
[2017-12-09] MEDS: HYDROCODONE/APAP 5/325 MG TAB PO PRN ×3 (00:02→12:24)
[2017-12-09] MEDS: METRONIDAZOLE 500mg IVPB 500 MG/100 ML BAG IV SCH ×2 (00:03→09:34)
[2017-12-09 09:16] VITALS: O2SAT 99
[2017-12-09] MEDS: DILTIAZEM HCL 120 MG SR CAP PO SCH (09:31)
[2017-12-09] MEDS: VALSARTAN 80 MG TAB PO SCH (09:32)
[2017-12-09] MEDS: predniSONE 5 MG TAB PO SCH (09:32)
[2017-12-09] MEDS: CIPROFLOXACIN 400mg IV 400 MG/200 ML BAG IV SCH (09:33)
[2017-12-09] MEDS: PANTOPRAZOLE 40 MG INJ IVP SCH (09:33)
[2017-12-09 13:07] VITALS: BP 116/76; TEMP 98
--- NOTE | 2017-12-10 06:14 | DS ---
Date of Discharge: 12/09/2017 Consultants: Dr. Klein with GI and Dr. Cramer with General Surgery. Procedures: On 12/08/2017, EGD with findings of small hiatal hernia, Schatzki ring in the lower esop hagus, 2 mm clean based ulcer in the prepyloric antrum. Admitting Diagnoses: 1.Acute pancreatitis. 2.Acute cholecystitis without biliary obstruction. 3.History of renal transplantation. 4.Essential hypertension. Discharge Diagnoses: 1.Acute abdominal pain secondary to gastric ulcer. 2.Large gastric ulcer. Pathology specimen negative for Helicobacter pylori and malignancy. 3.Gallstone pancreatitis, resolved. 4.Acute cholecystitis. 5.Intractable nausea and vomiting, resolved. 6.Gastric adenopathy. 7.Essential hypertension. 8.Status post kidney transplant. Hospital Course: The patient is a 52-year-old male with history of hypertension and transplanted kid linus, comes in with abdominal pain. He was found to have acute cholecystitis and acute pancreatitis s econdary to gallstone. The patient was seen by GI, Dr. Klein, and was taken for EGD. The patient w as found to have large gastric ulcer. Continued on IV PPI therapy. Pathology specimen did not show any Helicobacter pylori organisms. There was no malignancy identified. CT scan did show significant lymphadenopathy which was unable to be biopsied. Interventional Radiology was unable to use CT guid ance due to the colon being in the way and Dr. Cramer recommended surgical technician to do biopsy and further workup to rule out malignancy. The patient understands that this lymph node enlargement could be from a malignancy and needs to see a specialist. Dr. Jesús Dodge's office was contacted regarding the patient and the patient's permission, and the patient will be recommended to follow up there. Face sheet was faxed over to the facility for Dr. Dodge's office to contact the patient. Dr. Dodge's information was also given to the patient for followup purposes. The patient did well overall. He responded well to antibiotics and IV fluids. His pain was resolved. His labs improved. He was then cleared for discharge. Condition: Stable. Activity: No driving or operating heavy machinery while on narcotics. Followup: Follow up with primary care physician in 2 to 3 days. Follow up with [facility], Dr. Klein in 2 to 4 weeks. The patient will need repeat EGD in 3 months to reassess ulcer. Follow up with Dr. Amelie Dodge in [place] for gastric lymph node biopsy. Follow up with Dr. Cramer as recommended. R eturn to ER for worsening condition. Diet: [employer] diet. No fried or fatty foods. Medications: As per medication reconciliation list. Total time spent discharging the patient was 42 minutes. Physical Examination: General: Awake, alert, oriented, no acute distress. CV: S1, S2. No murmurs. Respiratory: Moving air well bilaterally. Abdomen: Soft, nontender, nondistended. Positive bowel sounds. Extremities: No clubbing, cyanosis, edema. Neurologic: Nonfocal. SA/MODL Voice ID: [id number] Report ID: [id number]
== END 2017-12-09 16:42 | disposition home or self-care (01) | DRG 383 ==
LOC: ER 14:44 → ERHOLD 18:40 → 4TH 20:01
PROVIDERS: ADMIT Family Medicine; ATTEND Family Medicine
PROC: 0DB78ZX Excision of Stomach, Pylorus, Via Natural or Artificial Opening Endoscopic, Diagnostic (ICD-10-PCS; principal; 2017-12-05 13:30)
DX: K25.9 Gastric ulcer, unspecified as acute or chronic, without hemorrhage or perforation (principal); K85.10 Biliary acute pancreatitis without necrosis or infection; Z94.0 Kidney transplant status; K80.00 Calculus of gallbladder with acute cholecystitis without obstruction; I10 Essential (primary) hypertension; R59.0 Localized enlarged lymph nodes; Z87.891 Personal history of nicotine dependence; K44.9 Diaphragmatic hernia without obstruction or gangrene; K22.2 Esophageal obstruction; Z79.52 Long term (current) use of systemic steroids
CPT/HCPCS: 36415; 71045; 74176; 74181; 76377; 76705; 80048; 80053; 80076; 81001; 82550; 82941; 82962; 83690; 83735; 84484; 85025; 85610; 85730; 87040; 87205; 88305; 88312; 93005; 94760; 96361; 96365; 96368; 96375; 99285; C9113; J0696; J0744; J2405; J2550; J7030; J7512

== ENCOUNTER 2018-01-13 08:11 | Emergency (ER) | payer OTHER ==
--- OUTSIDE RECORDS SUMMARY | 2018-01-13 08:13 | XMS REPORT | Clinical Summary ---
:1965 Author Organization [facility] Address [address] [place] [address] Care Team Providers Name Role Phone Juan Klein MD Primary Care Provider Allergies Not on File Current Medications Not on file Active Problems Not on file Encounters Date Type Specialty Care Team Description 01/11/2018 Lab Juan Zuniga MD Kidney replaced by transplant ( Primary Dx); Anemia of chronic renal failure, unspecified CKD stage; Hypermagnesemia; Proteinuria, unspecified type; Essential hypertension, malignant; Chronic kidney disease, stage III (moderate) (HCC); Disorder of phosphorus metabolism 12/08/2017 Intake Access N/A 09/28/2017 Juan Walker MD Kidney replaced by transplant ( Primary [...] Documentation Transplant [facility]ney Follow-up ( [facility] 20 year TRF ) after 01/12/2017 Social History Tobacco Use Types Packs/Day Years Used Date Never Assessed Sex Assigned at Date Recorded Not on file Last Filed Vital Signs Not on file Plan of Treatment Health Maintenance Due Date Last Done Comments COLON CANCER SCREENING 02/28/2016 SHINGRIX VACCINE (#1) 02/28/2016 INFLUENZA VACCINE 11/11/2017 Procedures Procedure Name Priority Date/Time Associated Comments Diagnosis ESTIMATED GFR Routine 01/11/2018 9:40 Results for this AM CDT procedure are in the results section. CYCLOSPORINE A LEVEL Routine 01/11/2018 9:40 Kidney replaced by Results for this AM CDT transplant procedure are in Anemia of chronic the results renal failure, section. unspecified CKD stage Hypermagnesemia Proteinuria, unspecified type Essential hypertension, malignant Chronic kidney disease, stage III (moderate) (HCC) Disorder of phosphorus metabolism COMPREHENSIVE Routine 01/11/2018 9:40 Kidney replaced by Results for this METABOLIC PANEL AM CDT transplant procedure are in Anemia of chronic the results renal failure, section. unspecified CKD stage Hypermagnesemia Proteinuria, unspecified type Essential hypertension, malignant Chronic kidney disease, stage III (moderate) (HCC) Disorder of phosphorus metabolism CREATININE LEVEL, Routine 01/11/2018 9:40 Kidney replaced by Results for this URINE, RANDOM AM CDT transplant procedure are in Anemia of chronic the results renal failure, section. unspecified CKD stage Hypermagnesemia Proteinuria, unspecified type Essential hypertension, malignant Chronic kidney disease, stage III (moderate) (HCC) Disorder of phosphorus metabolism PROTEIN, URINE, RANDOM Routine 01/11/2018 9:40 Kidney replaced by Results for this AM CDT transplant procedure are in Anemia of chronic the results renal failure, section. unspecified CKD stage Hypermagnesemia Proteinuria, unspecified type Essential hypertension, malignant Chronic kidney disease, stage III (moderate) (HCC) Disorder of phosphorus metabolism URINALYSIS SCREEN AND Routine 01/11/2018 9:40 Kidney replaced by Results for this MICROSCOPY, WITH AM CDT transplant procedure are in REFLEX TO CULTURE Anemia of chronic the results renal failure, section. unspecified CKD stage Hypermagnesemia Proteinuria, unspecified type Essential hypertension, malignant Chronic kidney disease, stage III (moderate) (HCC) Disorder of phosphorus metabolism LDH Routine 01/11/2018 9:40 Kidney replaced by Results for this AM CDT transplant procedure are in Anemia of chronic the results renal failure, section. unspecified CKD stage Hypermagnesemia Proteinuria, unspecified type Essential hypertension, malignant Chronic kidney disease, stage III (moderate) (HCC) Disorder of phosphorus metabolism URIC ACID LEVEL Routine 01/11/2018 9:40 Kidney replaced by Results for this AM CDT transplant procedure are in Anemia of chronic the results renal failure, section. unspecified CKD stage Hypermagnesemia Proteinuria, unspecified type Essential hypertension, malignant Chronic kidney disease, stage III (moderate) (HCC) Disorder of phosphorus metabolism PHOSPHORUS LEVEL Routine 01/11/2018 9:40 Kidney replaced by Results for this AM CDT transplant procedure are in Anemia of chronic the results renal failure, section. unspecified CKD stage Hypermagnesemia Proteinuria, unspecified type Essential hypertension, malignant Chronic kidney disease, stage III (moderate) (HCC) Disorder of phosphorus metabolism MAGNESIUM LEVEL Routine 01/11/2018 9:40 Kidney replaced by Results for this AM CDT transplant procedure are in Anemia of chronic the results renal failure, section. unspecified CKD stage Hypermagnesemia Proteinuria, unspecified type Essential hypertension, malignant Chronic kidney disease, stage III (moderate) (HCC) Disorder of phosphorus metabolism HC COMPLETE BLD COUNT Routine 01/11/2018 9:40 Kidney replaced by Results for this W/AUTO DIFF AM CDT transplant procedure are in Anemia of chronic the results renal failure, section. unspecified CKD stage Hypermagnesemia Proteinuria, unspecified type Essential hypertension, malignant Chronic kidney disease, stage III (moderate) (HCC) Disorder of phosphorus metabolism URINE CULTURE Routine 01/11/2018 9:40 Results for this AM CDT procedure are in the results section. ZZESTIMATED GFR Routine 09/28/2017 8:05 Results for this [...] CDT procedure are in the results section. ZZESTIMATED GFR Routine 04/23/2017 9:26 Results for this AM RADIATION SAFETY OFFICER procedure are in the results section. CYCLOSPORINE A LEVEL Routine 04/23/2017 9:26 Kidney replaced by Results for this AM RADIATION SAFETY OFFICER transplant procedure are in Anemia of chronic the results renal failure, section. unspecified CKD stage Hypermagnesemia Proteinuria, unspecified type Essential hypertension, malignant Chronic kidney disease, stage III (moderate) Disorder of phosphorus metabolism PROTEIN, URINE, RANDOM Routine 04/23/2017 9:26 Kidney replaced by Results for this AM RADIATION SAFETY OFFICER transplant procedure are in Anemia of chronic the results renal failure, section. unspecified CKD stage Hypermagnesemia Proteinuria, unspecified type Essential hypertension, malignant Chronic kidney disease, stage III (moderate) Disorder of phosphorus metabolism CREATININE LEVEL, Routine 04/23/2017 9:26 Kidney replaced by Results for this URINE, RANDOM AM RADIATION SAFETY OFFICER transplant procedure are in Anemia of chronic the results renal failure, section. unspecified CKD stage Hypermagnesemia Proteinuria, unspecified type Essential hypertension, malignant Chronic kidney disease, stage III (moderate) Disorder of phosphorus metabolism URINALYSIS SCREEN AND Routine 04/23/2017 9:26 Kidney replaced by Results for this MICROSCOPY, WITH AM RADIATION SAFETY OFFICER transplant procedure are in REFLEX TO CULTURE Anemia of chronic the results renal failure, section. unspecified CKD stage Hypermagnesemia Proteinuria, unspecified type Essential hypertension, malignant Chronic kidney disease, stage III (moderate) Disorder of phosphorus metabolism LDH Routine 04/23/2017 9:26 Kidney replaced by Results for this AM RADIATION SAFETY OFFICER transplant procedure are in Anemia of chronic the results renal failure, section. unspecified CKD stage Hypermagnesemia Proteinuria, unspecified type Essential hypertension, malignant Chronic kidney disease, stage III (moderate) Disorder of phosphorus metabolism URIC ACID LEVEL Routine 04/23/2017 9:26 Kidney replaced by Results for this AM RADIATION SAFETY OFFICER transplant procedure are in Anemia of chronic the results renal failure, section. unspecified CKD stage Hypermagnesemia Proteinuria, unspecified type Essential hypertension, malignant Chronic kidney disease, stage III (moderate) Disorder of phosphorus metabolism PHOSPHORUS LEVEL Routine 04/23/2017 9:26 Kidney replaced by Results for this AM RADIATION SAFETY OFFICER transplant procedure are in Anemia of chronic the results renal failure, section. unspecified CKD stage Hypermagnesemia Proteinuria, unspecified type Essential hypertension, malignant Chronic kidney disease, stage III (moderate) Disorder of phosphorus metabolism MAGNESIUM LEVEL Routine 04/23/2017 9:26 Kidney replaced by Results for this AM RADIATION SAFETY OFFICER transplant procedure are in Anemia of chronic the results renal failure, section. unspecified CKD stage Hypermagnesemia Proteinuria, unspecified type Essential hypertension, malignant Chronic kidney disease, stage III (moderate) Disorder of phosphorus metabolism COMPREHENSIVE Routine 04/23/2017 9:26 Kidney replaced by Results for this METABOLIC PANEL AM RADIATION SAFETY OFFICER transplant procedure are in Anemia of chronic the results renal failure, section. unspecified CKD stage Hypermagnesemia Proteinuria, unspecified type Essential hypertension, malignant Chronic kidney disease, stage III (moderate) Disorder of phosphorus metabolism HC COMPLETE BLD COUNT Routine 04/23/2017 9:26 Kidney replaced by Results for this W/AUTO DIFF AM RADIATION SAFETY OFFICER transplant procedure are in Anemia of chronic the results renal failure, section. unspecified CKD stage Hypermagnesemia Proteinuria, unspecified type Essential hypertension, malignant Chronic kidney disease, stage III (moderate) Disorder of phosphorus metabolism URINE CULTURE Routine 04/23/2017 9:26 Results for this AM RADIATION SAFETY OFFICER procedure are in the results section. after 01/12/2017 Results Urinalysis screen and microscopy, with reflex to culture (01/11/2018 9:40 AM) Only the most recent of3 resultswithin the time period is included. Specimen site Clean catch [facility] DEPARTMENT OF PATHOLOGY AND GENOMIC MEDICINE Color, UA Yellow [facility] DEPARTMENT OF PATHOLOGY AND GENOMIC MEDICINE Appearance, UA Clear [facility] DEPARTMENT OF PATHOLOGY AND GENOMIC MEDICINE Specific gravity, UA 1.019 1.001 - 1.035 [facility] DEPARTMENT OF PATHOLOGY AND GENOMIC MEDICINE pH, UA 6.0 5.0 - 8.5 [facility] DEPARTMENT OF PATHOLOGY AND GENOMIC MEDICINE Protein, UA 3+ (A) Negative [facility] DEPARTMENT OF PATHOLOGY AND GENOMIC MEDICINE Glucose, UA Negative Negative [facility] DEPARTMENT OF PATHOLOGY AND GENOMIC MEDICINE Ketones, UA Negative Negative [facility] DEPARTMENT OF PATHOLOGY AND GENOMIC MEDICINE Bilirubin, UA Negative Negative [facility] DEPARTMENT OF PATHOLOGY AND GENOMIC MEDICINE Blood, UA Moderate (A) Negative [facility] DEPARTMENT OF PATHOLOGY AND GENOMIC MEDICINE Nitrite, UA Negative Negative [facility] DEPARTMENT OF PATHOLOGY AND GENOMIC MEDICINE Urobilinogen, UA 2.0 (A) <2.0 [facility] DEPARTMENT OF PATHOLOGY AND GENOMIC MEDICINE Leukocyte esterase, UA Negative Negative [facility] DEPARTMENT OF PATHOLOGY AND GENOMIC MEDICINE WBC, UA <1 0 - 1 /HPF [facility] DEPARTMENT OF PATHOLOGY AND GENOMIC MEDICINE RBC, UA 55 (H) 0 - 5 /HPF [facility] DEPARTMENT OF PATHOLOGY AND GENOMIC MEDICINE Bacteria, UA Few None seen [facility] DEPARTMENT OF PATHOLOGY AND GENOMIC MEDICINE Yeast, UA None seen [facility] DEPARTMENT OF PATHOLOGY AND GENOMIC MEDICINE Yeast with pseudohyphae, UA None seen [facility] DEPARTMENT OF PATHOLOGY AND GENOMIC MEDICINE Hyaline casts, UA 5 /LPF [facility] DEPARTMENT OF PATHOLOGY AND GENOMIC MEDICINE Specimen Urine Performing Organization Address City/[facility] Phone [facility] DEPARTMENT OF PATHOLOGY AND [address] [place] [phone] GENOMIC [facility] Estimated GFR (01/11/2018 9:40 AM) Estimated GFR >=90 mL/min/1.73 m2 [facility] DEPARTMENT OF Comment: PATHOLOGY AND GENOMIC CatergoryUnitsInterpretation MEDICINE G1 >=90 Normal or high G2 60-89Mildly decreased [id number] to moderately decreased [id number] to severely decreased G4 15-29Severely decreased G5 <15Kidney failure The eGFR was calculated using the Chronic Kidney Disease Epidemiology Collaboration (CKD-EPI) equation. Interpretation is based on recommendations of the National Kidney Foundation-Kidney Disease Outcomes Quality Initiative (NKF-KDOQI) published in 2014. Specimen Plasma specimen Performing Organization Address City/[facility] Centercode Phone Number [facility] DEPARTMENT OF PATHOLOGY AND [address] [place] [phone] [employer] [facility] Cyclosporine A level (01/11/2018 9:40 AM)Only the most recent of2 resultswithin the time period is included. Cyclosporine <30 ng/mL [facility] DEPARTMENT OF PATHOLOGY Comment: AND [employer]) MEDICINE Unless administered by continuous IV drip, collect a purple top tube just before the next dose. Therapeutic range of approximately 100-500 varies mainly with type of transplant, use of other immunosuppressive agents, and evidence of toxicity or rejection. Test performed using [employer] Cardiac Nurse Practitioner chemiluminescent microparticle immunoassay for Cyclosporine on the [employer]ILLI[employer] TABLE REPAIR[employer] i System. Specimen Blood Performing Organization Address City/[facility]/Zipcode Phone Number [facility] DEPARTMENT OF PATHOLOGY AND [address] [place] [phone] [employer]) [facility] Protein, urine, random (01/11/2018 9:40 AM)Only the most recent of3 resultswithin the time period is included. Protein, urine random 200 mg/dL [facility] DEPARTMENT OF PATHOLOGY AND GENOMIC MEDICINE Specimen Urine Performing Organization Address City/[facility]/Zipcode Phone Number [facility] DEPARTMENT OF PATHOLOGY AND [address] [place] [phone] [employer] MEDICINE Creatinine level, urine, random (01/11/2018 9:40 AM)Only the most recent of3 resultswithin the time period is included. Creatinine, urine, random 216 mg/dL [facility] DEPARTMENT OF PATHOLOGY AND GENOMIC MEDICINE Specimen Urine Performing Organization Address City/State/Zipcode Phone Number [facility] DEPARTMENT OF PATHOLOGY AND [address] [place] [address] [facility] MEDICINE CBC with platelet and differential (01/11/2018 9:40 AM)Only the most recent of3 resultswithin the time period is included. WBC 8.62 4.50 - 11.00 k/uL [facility] DEPARTMENT OF PATHOLOGY AND GENOMIC MEDICINE RBC 4.12 (L) 4.40 - 6.00 m/uL [facility] DEPARTMENT OF PATHOLOGY AND GENOMIC MEDICINE HGB 12.7 (L) 14.0 - 18.0 g/dL [facility] DEPARTMENT OF PATHOLOGY AND GENOMIC MEDICINE HCT 37.5 (L) 41.0 - 51.0 % [facility] DEPARTMENT OF PATHOLOGY AND GENOMIC MEDICINE MCV 91.0 82.0 - 100.0 fL [facility] DEPARTMENT OF PATHOLOGY AND GENOMIC MEDICINE MCH 30.8 27.0 - 34.0 pg [facility] DEPARTMENT OF PATHOLOGY AND GENOMIC MEDICINE MCHC 33.9 31.0 - 37.0 g/dL [facility] DEPARTMENT OF PATHOLOGY AND GENOMIC MEDICINE RDW - SD 39.3 37.0 - 55.0 fL [facility] DEPARTMENT OF PATHOLOGY AND GENOMIC MEDICINE MPV 9.0 8.8 - 13.2 fL [facility] DEPARTMENT OF PATHOLOGY AND GENOMIC MEDICINE Platelet count 357 150 - 400 k/uL [facility] DEPARTMENT OF PATHOLOGY AND GENOMIC MEDICINE Nucleated RBC 0.00 /100 WBC [facility] DEPARTMENT OF PATHOLOGY AND GENOMIC MEDICINE Neutrophils 59.1 39.0 - 69.0 % [facility] DEPARTMENT OF PATHOLOGY AND GENOMIC MEDICINE Lymphocytes 29.8 25.0 - 45.0 % [facility] DEPARTMENT OF PATHOLOGY AND GENOMIC MEDICINE Monocytes 7.4 0.0 - 10.0 % [facility] DEPARTMENT OF PATHOLOGY AND GENOMIC MEDICINE Eosinophils 2.7 0.0 - 5.0 % [facility] DEPARTMENT OF PATHOLOGY AND GENOMIC MEDICINE Basophils 0.8 0.0 - 1.0 % [facility] DEPARTMENT OF PATHOLOGY AND GENOMIC MEDICINE Immature granulocytes 0.2Comment: 0.0 - 1.0 % [facility] DEPARTMENT OF "Immature PATHOLOGY AND GENOMIC granulocytes" MEDICINE (promyelocytes, myelocytes, metamyelocytes) Specimen Blood Performing Organization Address [facility] Phone Number [facility] DEPARTMENT OF PATHOLOGY AND [address] [place] [address] Urine culture (01/11/2018 9:40 AM)Only the most recent of3 resultswithin the time period is included. Urine culture SEE COMMENTComment: Bacteriuria [facility] DEPARTMENT OF PATHOLOGY screen negative. AND GENOMIC MEDICINE Performing Organization Address [facility] Phone Number [facility] DEPARTMENT OF PATHOLOGY AND [address] [place] [address] Uric acid level (01/11/2018 9:40 AM)Only the most recent of3 resultswithin the time period is included. Uric acid 5.7 3.4 - 7.0 mg/dL [facility] DEPARTMENT OF PATHOLOGY AND GENOMIC MEDICINE Specimen Plasma specimen Performing Organization Address [facility] Phone Number [facility] DEPARTMENT OF PATHOLOGY AND [address] [place] [address] Phosphorus level (01/11/2018 9:40 AM)Only the most recent of3 resultswithin the time period is included. Phosphorus 2.2 (L) 2.4 - 4.5 mg/dL [facility] DEPARTMENT OF PATHOLOGY AND GENOMIC MEDICINE Specimen Plasma specimen Performing Organization Address [facility] Number [facility] DEPARTMENT OF PATHOLOGY AND [address] [place] [address] Magnesium level (01/11/2018 9:40 AM)Only the most recent of3 resultswithin the time period is included. Magnesium 2.2 1.6 - 2.6 mg/dL [facility] DEPARTMENT OF PATHOLOGY AND GENOMIC MEDICINE Specimen Plasma specimen Performing Organization Address [facility] Phone Number [facility] DEPARTMENT OF PATHOLOGY AND [address] [place] [address] LDH (01/11/2018 9:40 AM)Only the most recent of3 resultswithin the time period is included. LDH 160 87 - 225 U/L [facility] DEPARTMENT OF PATHOLOGY AND GENOMIC MEDICINE Specimen Plasma specimen Performing Organization Address [facility] Phone Number [facility] DEPARTMENT OF PATHOLOGY AND [address] [place] [address] Comprehensive metabolic panel (01/11/2018 9:40 AM)Only the most recent of3 resultswithin the time period is included. Sodium 139 135 - 148 mEq/L [facility] DEPARTMENT OF PATHOLOGY AND GENOMIC MEDICINE Potassium 4.1 3.5 - 5.0 mEq/L [facility] DEPARTMENT OF PATHOLOGY AND GENOMIC MEDICINE Chloride 102 98 - 112 mEq/L [facility] DEPARTMENT OF PATHOLOGY AND GENOMIC MEDICINE CO2 26 24 - 31 mEq/L [facility] DEPARTMENT OF PATHOLOGY AND GENOMIC MEDICINE Anion gap 11@ANIO 7 - 15 mEq/L [facility] DEPARTMENT OF PATHOLOGY AND GENOMIC MEDICINE BUN 11 6 - 20 mg/dL [facility] DEPARTMENT OF PATHOLOGY AND GENOMIC MEDICINE Creatinine 1.00 0.70 - 1.20 mg/dL [facility] DEPARTMENT OF PATHOLOGY AND GENOMIC MEDICINE Glucose 93 65 - 99 mg/dL [facility] DEPARTMENT OF PATHOLOGY AND GENOMIC MEDICINE Calcium 9.7 8.3 - 10.2 mg/dL [facility] DEPARTMENT OF PATHOLOGY AND GENOMIC MEDICINE Protein 7.4 6.3 - 8.3 g/dL [facility] DEPARTMENT OF Comment: PATHOLOGY AND GENOMIC [place] 4.6-7.0 g/dL MEDICINE 1 week 4.4-7.6 g/dL 7 months-1year5.1-7.3 g/dL 1-2 years5.6-7.5 g/dL >3 years6.0-8.0 g/dL 18-150 6.3-8.3 g/dL Albumin 3.4 (L) 3.5 - 5.0 g/dL [facility] DEPARTMENT OF PATHOLOGY AND GENOMIC MEDICINE A/G ratio 0.8 0.7 - 3.8 [facility] DEPARTMENT OF PATHOLOGY AND GENOMIC MEDICINE Alkaline phosphatase 66 40 - 129 U/L [facility] DEPARTMENT OF PATHOLOGY AND GENOMIC MEDICINE AST 21 10 - 50 U/L [facility] DEPARTMENT OF PATHOLOGY AND GENOMIC MEDICINE ALT 18 5 - 50 U/L [facility] DEPARTMENT OF PATHOLOGY AND GENOMIC MEDICINE Total bilirubin 0.3 0.0 - 1.2 mg/dL [facility] DEPARTMENT OF PATHOLOGY AND GENOMIC MEDICINE Specimen Plasma specimen Performing Organization Address City/State/Zipcode Phone Number [facility] DEPARTMENT OF PATHOLOGY AND [address] [place] [address] [employer]) [facility] Estimated GFR (09/28/2017 8:05 AM)Only the most recent of2 resultswithin the time period is included. GFR Non Af Amer 70 mL/min/1.73 m2 [facility] DEPARTMENT OF PATHOLOGY AND GENOMIC MEDICINE GFR Af Amer 85 mL/min/1.73 m2 [facility] DEPARTMENT OF Comment: PATHOLOGY AND GENOMIC Chronic [...] Americans. Specimen Plasma specimen Performing Organization Address City/State/Zipcode Phone Number [facility] DEPARTMENT OF PATHOLOGY AND [address] [place] [address] [employer] FK506 level (09/28/2017 8:05 AM) FK506 level <2.0 ng/mL [facility] DEPARTMENT OF PATHOLOGY Comment: AND [employer]) MEDICINE Therapeutic range 5-20 ng/mL for 12 hour trough. The range varies depending on the organ transplanted, time after transplantation and co-administered immunosuppressant therapies. Please use clinical judgment to interpret test result. Test performed using [employer] Cardiac Nurse Practitioner chemiluminescent microparticle immunoassay for Tacrolimus on the [employer]ILLI[employer] TABLE REPAIRER i System. Specimen Blood Performing Organization Address City/[facility]/Zipcode Phone Number [facility] DEPARTMENT OF PATHOLOGY AND [address] [place] [address] [employer] after 01/12/2017 Insurance Payer Benefit Plan / Group Subscriber ID Type Phone Address MEDICARE MEDICARE PART A AND B xxxxxxxxxx Medicare [place], [place]
[2018-01-13] MEDS ORDERED: NA CHLORIDE 0.9% 1,000 ML ONE (09:38)
[2018-01-13 09:47] LABS: Urine Blood 3+ (NEG); Urine Glucose NEGATIVE (NEG); Urine Protein 3+ (NEG); Urine Specific Gravity >1.030 (1.005-1.030); Urine pH 5.5 (5.0-7.0)
--- NOTE | 2018-01-13 10:01 | RAD REPORT ---
EXAM DESCRIPTION: RAD - Chest Single View - 01/13/2018 9:38 am CLINICAL HISTORY: Abdominal pain, abdominal distention, cough COMPARISON: December 04 TECHNIQUE: AP portable chest image was obtained [id number] hours . FINDINGS: No mass, consolidation or failure. Lung markings are mildly prominent but not substantiall y different. A minimal interstitial edema or infiltrate could be masked by the mild underlying inters titial pattern. Heart and vasculature are normal. No measurable pleural effusion and no pneumothorax. No gross bony abnormality seen. No acute aortic findings suspected. IMPRESSION: No focal infiltrate, mass or failure. Mild prominence of the lung markings not substantially different from comparison.
[2018-01-13] MEDS ORDERED: ONDANSETRON 4 MG/2 ML VIAL ONE (10:16)
[2018-01-13 10:21] LABS: Hematocrit 40.1 % (39.6-49.0); MCV 90.4 fL (80-100); MPV 7.7 fL (7.6-11.3); RBC Red Blood Cell Count 4.44 M/uL (4.33-5.43)
[2018-01-13 10:24] LABS: Protime INR 0.93
--- NOTE | 2018-01-13 10:44 | RAD REPORT ---
EXAM DESCRIPTION: CT - Abdomen Pelvis Wo Contrast - 01/13/2018 10:35 am CLINICAL HISTORY: Abdominal pain with nausea for 3 days COMPARISON: November 2017 TECHNIQUE: Computed axial tomography of the abdomen and pelvis was obtained. IV was not requested. O ral contrast was given. Coronal reconstructions performed. All CT scans are performed using dose optimization technique as appropriate and may include automated exposure control or mA/KV adjustment according to patient size. FINDINGS: The evaluation of solid organs and vessels is limited secondary to the lack of contrast a dministration. The liver, spleen, pancreas, and adrenals appear grossly normal. Bilateral atrophic kidneys are present with a small left renal cyst. Transplant kidney is present wit hin the left lower abdomen/pelvis. Mild stranding is seen within the adjacent fat. Hydronephrosis is not present. The appendix is normal. There is no evidence of diverticulitis. Multiple gallstones are seen. The gallbladder wall is not thickened. Small right inguinal hernia contains fat The stranding adjacent to the distal stomach has resolved. Small perigastric lymph node is unchanged IMPRESSION: Cholelithiasis without evidence cholecystitis Stranding adjacent to the transplant kidney is a nonspecific finding but can associated with inflamma tion
--- NOTE | 2018-01-13 10:45 | EKG ---
Test Date: 2018-01-13 Test Time: 09:23:43 Primary Care Provider: JANE MEASUREMENT RESULTS: Intervals: Rate: 66 NC: 144 QRSD: 96 QT: 398 QTc: 417 [place]: P: 52 NC: 144 QRS: 45 T: 23 INTERPRETIVE STATEMENTS: Normal sinus rhythm Normal ECG Compared to ECG 12/04/2017 15:28:07 No significant changes Electronically Signed On 01-13-18 10:44:30 CDT by Karson Thomas
[2018-01-13 10:48] LABS: ALT/SGPT 22 U/L (12-78); AST/SGOT 18 U/L (15-37); Albumin 3.4 g/dL (3.4-5.0); Alkaline Phosphatase 71 U/L (45-117); BUN Blood Urea Nitrogen 11 mg/dL (7-18); Bicarbonate 27 mmol/L (21-32); Bilirubin Direct < 0.1 mg/dL (0-0.2); Bilirubin Total 0.3 mg/dL (0.2-1.0); Glucose Level 85 mg/dL (74-106); Lipase 195 U/L (73-393); Magnesium 2.3 mg/dL (1.8-2.4); NT PRO-BNP 61 pg/mL (<125); Potassium 4.1 mmol/L (3.5-5.1); Protein, Total 7.7 g/dL (6.4-8.2); Sodium Level 137 mmol/L (136-145); Troponin (Emerg Dept Use Only) < 0.02 ng/mL (0.0-0.045)
--- NOTE | 2018-01-13 11:10 | EDPHYS ---
Physician Documentation [facility] Name: Shoaib Freitas Jr Age: 52 yrs Sex: Male : 1965 Arrival Date: 01/13/2018 Time: 08:15 Bed 15 Private MD: out of town, doctor ED Physician Vidal Sandra HPI: 01/13 08:27 This 52 yrs old Black Male presents to ER via Ambulatory with complaints of Abdominal zachery Pain, Nausea. 08:27 The patient presents to the emergency department with nausea, that is mild. Onset: The zachery symptoms/episode began/occurred 3 day(s) ago. Possible causes: unknown. The symptoms are aggravated by nothing. The symptoms are alleviated by nothing. Associated signs and symptoms: The patient has no apparent associated signs or symptoms. Severity of symptoms: At their worst the symptoms were mild moderate. 08:28 The patient presents with abdominal pain in the lower abdomen. Onset: The zachery symptoms/episode began/occurred 3 day(s) ago. The symptoms do not radiate. Historical: - Allergies: 08:27 No Known Allergies; ss - Home Meds: 12:07 diltiazem HCl 240 mg Oral cpER 1 cap once daily for Hypertension [Active]; prednisone 5 bp mg Oral tab once daily [Active]; valsartan 40 mg Oral tab 1 tab once daily for Hypertension [Active]; - PMHx: 08:27 Hypertension; Pancreatitis; gall stones; ss - PSHx: 08:27 kidney transplant; ss - Immunization history:: Adult Immunizations up to date. - Social history:: Smoking status: Patient uses tobacco products, quit smoking three weeks ago. - Ebola Screening: : Patient denies exposure to infectious person Patient denies travel to an Ebola-affected area in the 21 days before illness onset. - Family history:: not pertinent. ROS: 08:28 Constitutional: Negative for fever, chills, and weight loss, Eyes: Negative for injury, zachery pain, redness, and discharge, ENT: Negative for injury, pain, and discharge, Neck: Negative for injury, pain, and swelling, Cardiovascular: Negative for chest pain, palpitations, and edema, Respiratory: Negative for shortness of breath, cough, wheezing, and pleuritic chest pain, Back: Negative for injury and pain, : Negative for injury, bleeding, discharge, and swelling, MS/Extremity: Negative for injury and deformity, Skin: Negative for injury, rash, and discoloration, Neuro: Negative for headache, weakness, numbness, tingling, and seizure, Psych: Negative for depression, anxiety, suicide ideation, homicidal ideation, and hallucinations, Allergy/Immunology: Negative for hives, rash, and allergies, Endocrine: Negative for neck swelling, polydipsia, polyuria, polyphagia, and marked weight changes, Hematologic/Lymphatic: Negative for swollen nodes, abnormal bleeding, and unusual bruising. 08:28 Abdomen/GI: Positive for abdominal pain, nausea, of the right lower quadrant and left lower quadrant. Exam: 08:28 Constitutional: This is a well developed, well nourished patient who is awake, alert, zachery and in no acute distress. Head/Face: Normocephalic, atraumatic. Eyes: Pupils equal round and reactive to light, extra-ocular motions intact. Lids and lashes normal. Conjunctiva and sclera are non-icteric and not injected. Cornea within normal limits. Periorbital areas with no swelling, redness, or edema. ENT: Nares patent. No nasal discharge, no septal abnormalities noted. Tympanic membranes are normal and external auditory canals are clear. Oropharynx with no redness, swelling, or masses, exudates, or evidence of obstruction, uvula midline. Mucous membranes moist. Neck: Trachea midline, no thyromegaly or masses palpated, and no cervical lymphadenopathy. Supple, full range of motion without nuchal rigidity, or vertebral point tenderness. No Meningismus. Chest/axilla: Normal chest wall appearance and motion. Nontender with no deformity. No lesions are appreciated. Cardiovascular: Regular rate and rhythm with a normal S1 and S2. No gallops, murmurs, or rubs. Normal PMI, no JVD. No pulse deficits. Respiratory: Lungs have equal breath sounds bilaterally, clear to auscultation and percussion. No rales, rhonchi or wheezes noted. No increased work of breathing, no retractions or nasal flaring. Back: No spinal tenderness. No costovertebral tenderness. Full range of motion. Male : Normal genitalia with no discharge or lesions. Skin: Warm, dry with normal turgor. Normal color with no rashes, no lesions, and no evidence of cellulitis. MS/ Extremity: Pulses equal, no cyanosis. Neurovascular intact. Full, normal range of motion. Neuro: Awake and alert, GCS 15, oriented to person, place, time, and situation. Cranial nerves II-XII grossly intact. Motor strength 5/5 in all extremities. Sensory grossly intact. Cerebellar exam normal. Normal gait. Psych: Awake, alert, with orientation to person, place and time. Behavior, mood, and affect are within normal limits. 08:28 Abdomen/GI: Inspection: abdomen appears normal, Bowel sounds: normal, Palpation: mild abdominal tenderness, in the suprapubic area, right lower quadrant and left lower quadrant. Vital Signs: 08:27 BP 130 / 88; Pulse 77; Resp 16; Temp 98.1; Pulse Ox 97% on R/A; Weight 88.9 kg; Height ss 5 ft. 11 in. (180.34 cm); Pain 8/10; 10:15 BP 120 / 83; Pulse 64; Resp 16; Pulse Ox 100% ; bp 11:05 BP 126 / 84; Pulse 66; Resp 14; Pulse Ox 99% ; bp 08:27 Body Mass Index 27.34 (88.90 kg, 180.34 cm) MDM: 08:17 Patient medically screened. zachery 08:29 Data reviewed: vital signs, nurses notes, lab test result(s), EKG, radiologic studies, [facility] CT scan, plain films. 01/13 08:27 Order name: Basic Metabolic Panel; Complete Time: 11:03 [facility] 01/13 08:27 Order name: CBC with Diff zachery 01/13 08:27 Order name: LFT's; Complete Time: 11:03 zachery 01/13 08:27 Order name: Magnesium; Complete Time: 11:03 zachery 01/13 08:27 Order name: NT PRO-BNP; Complete Time: 11:03 [facility] 01/13 08:27 Order name: PT-INR; Complete Time: 10:46 [facility] 01/13 08:27 Order name: Troponin (emerg Dept Use Only); Complete Time: 11:03 zachery 01/13 08:27 Order name: XRAY Chest (1 view); Complete Time: 10:37 [facility] 01/13 08:27 Order name: Lipase; Complete Time: 11:03 [facility] 01/13 08:27 Order name: CT Abd/Pelvis - Without Cont: no iv, oral only; Complete Time: 10:46 [facility] 01/13 08:27 Order name: Urine Culture [facility] 01/13 09:03 Order name: Urine Dipstick--Ancillary (enter results); Complete Time: 10:37 01/13 11:06 Order name: Manual Differential EDMS 01/13 08:27 Order name: EKG; Complete Time: 08:28 [facility] 01/13 08:27 Order name: Cardiac monitoring; Complete Time: 09:13 [facility] 01/13 08:27 Order name: EKG - Nurse/Tech; Complete Time: 09:22 [facility] 01/13 08:27 Order name: IV Saline Lock; Complete Time: 09:29 [facility] 01/13 08:27 Order name: Labs collected and sent; Complete Time: 10:27 [facility] 01/13 08:27 Order name: O2 Per Protocol; Complete Time: 09:13 [facility] 01/13 08:27 Order name: O2 Sat Monitoring; Complete Time: 09:13 [facility] 01/13 08:27 Order name: Urine Dipstick-Ancillary (obtain specimen); Complete Time: 09:13 [facility] 01/13 09:15 Order name: Labs - recollect needed; Complete Time: 09:22 01/13 09:44 Order name: Labs - recollect needed; Complete Time: 10:20 bd Administered Medications: 10:20 Drug: NS 0.9% 500 ml Route: IV; Rate: bolus; Site: left jugular; bp 11:42 Follow up: IV Status: Completed infusion; IV Intake: 500ml bp 10:20 Drug: NS 0.9% 1000 ml Route: IV; Rate: 125 ml/hr; Site: left jugular; bp 11:43 Follow up: IV Status: Completed infusion; IV Intake: 250ml bp 10:20 Drug: Zofran 4 mg Route: IVP; Site: left jugular; bp 10:31 Follow up: Response: Nausea is decreased bp 11:10 Drug: Rocephin - (cefTRIAXone) 1 grams Route: IVPB; Infused Over: 30 mins; Site: left bp jugular; 11:42 Follow up: IV Status: Completed infusion; IV Intake: 100ml bp Disposition: 01/13/18 11:09 Discharged to Home. Impression: Abdominal tenderness, Nausea, Cholelithiasis. - Condition is Stable. - Discharge Instructions: Abdominal Pain, Adult, Nausea, Adult, Cholelithiasis, Cholelithiasis, [id number], Abdominal Pain, Adult, [id number], Nausea, Adult, [id number]. - Prescriptions for Cipro 250 mg Oral Tablet - take 1 tablet by ORAL route every 12 hours; 10 tablet. Zofran 4 mg Oral Tablet - take 1 tablet by ORAL route every 12 hours As needed; 20 tablet. promethazine 25 mg Oral Tablet - take 1 tablet by ORAL route every 6 hours As needed; 12 tablet. - Medication Reconciliation Form, Thank You Letter, Antibiotic Education, Prescription Opioid Use form. - Follow up: Private Physician; When: 2 - 3 days; Reason: Recheck today's complaints, Continuance of care, Re-evaluation by your physician. - Problem is new. - Symptoms have improved. Signatures: Dispatcher [employer] EDMS Simona Dixon Corey, MD MD cha Smirch, Shelby RN RN ss Mic Cardozo RN RN bp Corrections: (The following items were deleted from the chart) 12:09 11:09 01/13/2018 11:09 Discharged to Home. Impression: Abdominal tenderness; Nausea; bp Cholelithiasis. Condition is Stable. Forms are Medication Reconciliation Form, Thank You Letter, Antibiotic Education, Prescription Opioid Use. Follow up: Private Physician; When: 2 - 3 days; Reason: Recheck today's complaints, Continuance of care, Re-evaluation by your physician. Problem is new. Symptoms have improved. zachery
--- NOTE | 2018-01-13 11:10 | ER ---
Nurse's Notes [facility] Name: Shoaib Freitas Jr Age: 52 yrs Sex: Male : 1965 Arrival Date: 01/13/2018 Time: 08:15 Bed 15 Private MD: out of town, doctor Diagnosis: Abdominal tenderness;Nausea;Cholelithiasis Presentation: 01/13 08:23 Presenting complaint: Patient states: ABD PAIN AND NAUSEA X 3 DAYS. Pt reports that ss these symptoms have been ongoing and was told that he needs his gallbladder out in three months. Transition of care: patient was not received from another setting of care. Onset of symptoms was January 10, 2018. Risk Assessment: Do you want to hurt yourself or someone else? Patient reports no desire to harm self or others. Initial Sepsis Screen: Does the patient meet any 2 criteria? No. Patient's initial sepsis screen is negative. Does the patient have a suspected source of infection? No. Patient's initial sepsis screen is negative. Care prior to arrival: None. 08:23 Method Of Arrival: Ambulatory ss 08:23 Acuity: COBY 3 ss Historical: - Allergies: 08:27 No Known Allergies; ss - Home Meds: 12:07 diltiazem HCl 240 mg Oral cpER 1 cap once daily for Hypertension [Active]; prednisone 5 bp mg Oral tab once daily [Active]; valsartan 40 mg Oral tab 1 tab once daily for Hypertension [Active]; - PMHx: 08:27 Hypertension; Pancreatitis; gall stones; ss - PSHx: 08:27 kidney transplant; ss - Immunization history:: Adult Immunizations up to date. - Social history:: Smoking status: Patient uses tobacco products, quit smoking three weeks ago. - Ebola Screening: : Patient denies exposure to infectious person Patient denies travel to an Ebola-affected area in the 21 days before illness onset. - Family history:: not pertinent. Screenin:30 Abuse screen: Denies threats or abuse. Denies injuries from another. Nutritional bp screening: No deficits noted. Tuberculosis screening: No symptoms or risk factors identified. Fall Risk None identified. Assessment: 08:30 General: Appears in no apparent distress. comfortable, Behavior is calm, cooperative, bp appropriate for age. Pain: Complains of pain in abdomen. Neuro: Level of Consciousness is awake, alert, obeys commands, Oriented to person, place, time, situation, Appropriate for age. Cardiovascular: Rhythm is sinus rhythm. Respiratory: Airway is patent Respiratory effort is even, unlabored, Respiratory pattern is regular, symmetrical. GI: Bowel sounds present X 4 quads. Abd is soft X 4 quads Abdomen is tender to palpation in right lower quadrant and left lower quadrant. GI: Reports nausea. : No signs and/or symptoms were reported regarding the genitourinary system. EENT: No deficits noted. Derm: No deficits noted. Musculoskeletal: Circulation, motion, and sensation intact. Range of motion: intact in all extremities. 09:00 Reassessment: PO CONTRAST COMPLETED, CT NOTIFIED. bp 10:15 Reassessment: PIV AND LABS OBTAINED, MD AWARE. CT PENDING. bp 11:23 Reassessment: D/C ON HOLD FOR IVF AND ABX INFUSION. bp 12:07 Reassessment: PT D/C HOME AMBULATORY WITH FAMILY, DX WITH CHOLELITHIASIS. bp Vital Signs: 08:27 BP 130 / 88; Pulse 77; Resp 16; Temp 98.1; Pulse Ox 97% on R/A; Weight 88.9 kg; Height ss 5 ft. 11 in. (180.34 cm); Pain 8/10; 10:15 BP 120 / 83; Pulse 64; Resp 16; Pulse Ox 100% ; bp 11:05 BP 126 / 84; Pulse 66; Resp 14; Pulse Ox 99% ; bp 08:27 Body Mass Index 27.34 (88.90 kg, 180.34 cm) ED Course: 08:15 Patient arrived in ED. mr 08:15 out of town, doctor is Private Physician. mr 08:16 Mic Cardozo, PRINCESS is Primary Nurse. bp 08:17 Vidal Sandra MD is Attending Physician. zachery 08:25 Triage completed. ss 08:27 Arm band placed on right wrist. ss 08:30 Patient has correct armband on for positive identification. Bed in low position. Call bp light in reach. Side rails up X2. Adult w/ patient. 08:40 Urine collected: clean catch specimen, cloudy. bp 08:47 Radiology exam delayed due to IV insertion attempt and/or patient not having ls3 appropriate IV at this time. 09:03 Note: finished contrast for cat scan at 0900. [email or web address] 09:29 Inserted saline lock: 24 gauge in left upper arm, using aseptic technique. bp 09:35 X-ray completed. Portable x-ray completed in exam room. Patient tolerated procedure ka well. 09:36 XRAY Chest (1 view) In Process Unspecified. EDMS 09:40 EKG done, by mri ct tech. reviewed by Vidal Sandra MD. at1 10:20 Inserted saline lock: 20 gauge in left EJ, using aseptic technique. Blood collected. IV bp discontinued, intact, bleeding controlled, No redness/swelling at site. Pressure dressing applied. 10:[address] vr 10:35 CT Abd/Pelvis - Without Cont: no iv, oral only In Process Unspecified. EDMS 10:35 CT completed. Patient tolerated procedure well. Patient moved back from CT. vr 12:05 No provider procedures requiring assistance completed. IV discontinued, intact, bp bleeding controlled, No redness/swelling at site. Pressure dressing applied. Administered Medications: 10:20 Drug: NS 0.9% 500 ml Route: IV; Rate: bolus; Site: left jugular; bp 11:42 Follow up: IV Status: Completed infusion; IV Intake: 500ml bp 10:20 Drug: NS 0.9% 1000 ml Route: IV; Rate: 125 ml/hr; Site: left jugular; bp 11:43 Follow up: IV Status: Completed infusion; IV Intake: 250ml bp 10:20 Drug: Zofran 4 mg Route: IVP; Site: left jugular; bp 10:31 Follow up: Response: Nausea is decreased bp 11:10 Drug: Rocephin - (cefTRIAXone) 1 grams Route: IVPB; Infused Over: 30 mins; Site: left bp jugular; 11:42 Follow up: IV Status: Completed infusion; IV Intake: 100ml bp Intake: 11:42 IV: 100ml; Total: 100ml. bp 11:42 IV: 500ml; Total: 600ml. bp 11:43 IV: 250ml; Total: 850ml. bp Outcome: 11:09 Discharge ordered by . zachery 12:08 Discharged to home ambulatory, with family. bp 12:08 Condition: stable 12:08 Discharge instructions given to patient, Instructed on discharge instructions, follow up and referral plans. medication usage, Demonstrated understanding of instructions, follow-up care, medications, Prescriptions given X 3. 12:09 Patient left the ED. bp Signatures: Dispatcher [employer] Vidal Washington MD MD zachery Pires, Eufemia mr Andre, Tere, RN RN ss Robert, Manda Conde, personnel monitor EKG Tat1 Chantale Church Brian, PRINCESS RN bp Heard, Violeta perez6 Brandon Burrell 3
[2018-01-13] MEDS ORDERED: CEFTRIAXONE 1000 MG/VIAL ONE (11:22)
[2018-01-13] MEDS ORDERED: NA CHLORIDE 0.9% 100 ML IV ONE (11:22)
[2018-01-13 12:09] LABS: Platelet Estimate ADEQ
[2018-01-13 12:10] LABS: Blood Morphology Comment NOT SEEN (NOT SEEN)
[2018-01-13 12:13] VITALS: TEMP 98.1
[2018-01-13 12:16] VITALS: BP 126/84; O2SAT 99
== END 2018-01-13 12:09 | disposition home or self-care (01) ==
LOC: ER 08:11
DX: K80.20 Calculus of gallbladder without cholecystitis without obstruction (principal); R11.0 Nausea; I10 Essential (primary) hypertension; Z72.0 Tobacco use; Z94.0 Kidney transplant status
CPT/HCPCS: 36415; 71045; 74176; 80048; 80076; 81003; 83690; 83735; 83880; 84484; 85025; 85610; 87086; 87088; 93005; J2405; J7030

== ENCOUNTER 2018-04-25 06:40 | Emergency (ER) | payer OTHER ==
--- OUTSIDE RECORDS SUMMARY | 2018-04-25 06:45 | XMS REPORT | Clinical Summary ---
:1965 Author Organization [facility] Address [address] [place] [address] Care Team Providers Name Role Phone Juan Klein MD Primary Care Provider Allergies No Known Allergies Medications Medication Sig Dispensed Refills Start Date End Date Status pantoprazole Take 40 mg by 0 Active (PROTONIX) 40 MG EC mouth 2 (two) tablet times a day. promethazine Take 50 mg by 0 Active (PHENERGAN) 50 MG mouth every 12 tablet (twelve) hours as needed for nausea or vomiting. diltiazem CD Take 240 mg by 0 Active (CardIZEM CD) 240 mouth daily. MG 24 hr capsule mycophenolate Take 500 mg by 0 Active (CELLCEPT) 500 mg mouth 2 (two) tablet times a day. valsartan (DIOVAN) Take 40 mg by 0 Active 40 MG tablet mouth daily. ciprofloxacin HCl Take 250 mg by 0 01/13/2018 (CIPRO) 250 MG mouth every 12 8 tablet (twelve) hours. For 5 days 01/13/18-01/18 traMADol (ULTRAM) Take 50 mg by 0 Discontinued 50 mg tablet mouth every 12 8 (twelve) hours as needed for moderate pain. cycloSPORINE Take 25 mg by 0 Discontinued modified (NEORAL) mouth 2 (two) 8 25 MG capsule times a day. cycloSPORINE Take 1 capsule 60 capsule 0 01/18/2018 modified (NEORAL) (100 mg total) 8 100 MG capsule by mouth 2 (two) times a day for 30 days. predniSONE Take 1 tablet 30 tablet 0 01/19/2018 (DELTASONE) 5 mg (5 mg total) 8 tablet by mouth daily for 30 days. traMADol (ULTRAM) Take 1 tablet 30 tablet 0 01/18/2018 50 mg tablet (50 mg total) 8 by mouth every 6 (six) hours as needed for moderate pain for up to 7 days. Active Problems Problem Noted Date Kidney transplant recipient 01/18/2018 Right upper quadrant abdominal pain 01/18/2018 Disorder of liver 01/16/2018 Cholelithiasis 01/15/2018 Encounters Date Type Specialty Care Team Description 01/16/2018 Anesthesia Event General Surgery Rica Dumont MD 01/16/2018 Surgery General Surgery Cindy Diamond LAPAROSCOPIC MD [place] CHOLECYSTECTOMY AND INTRAOPERATIVE CHOLANGIOGRAM 01/16/2018 Documentation Nephrology Daniela Chou MD 01/15/2018 - Hospital Encounter General Surgery Antonieta Mark-Hang Biliary calculus of other site without obstruction (Primary Dx); 01/19/2018 MD Raghavendra Calculus of gallbladder with acute cholecystitis without obstruction Lety Paez MD 01/11/2018 Lab Lab Juan Klein Kidney replaced by transplant (Primary Dx ); MD Satish Anemia of chronic renal failure, unspecified CKD stage; Hypermagnesemia; Proteinuria, unspecified type; Essential hypertension, malignant; Chronic kidney disease, stage III (moderate) (HCC); Disorder of phosphorus metabolism 12/08/2017 Intake Access N/A 09/28/2017 Lab Lab Juan Klein Kidney replaced by transplant (Primary Dx ); MD Satish Anemia of chronic renal failure, unspecified CKD stage; Hypermagnesemia; Proteinuria, unspecified type; Essential hypertension, malignant; Chronic kidney disease, stage III (moderate); Disorder of phosphorus metabolism after 04/24/2017 Social History Tobacco Use Types Packs/Day Years Used Date Former Smoker Smokeless Tobacco: Never Used Comments: "Quit 2-3 months ago" Alcohol Use Drinks/Week oz/Week Comments No Sex Assigned at Date Recorded Not on file Job Start Date Occupation Industry Not on file Not on file Not on file Travel History Travel Start Travel End No recent travel history available. Last Filed Vital Signs Vital Sign Reading Time Taken Blood Pressure 139/77 01/19/2018 7:20 AM CDT Pulse 79 01/19/2018 7:20 AM CDT Temperature 36.5 C (97.7 F) 01/19/2018 7:20 AM CDT Respiratory Rate 17 01/19/2018 7:20 AM CDT Oxygen Saturation 96% 01/19/2018 7:20 AM CDT Inhaled Oxygen Concentration - - Weight - - Height 180.3 cm (5' 11") 01/18/2018 11:00 AM CDT Body Mass Index - - Plan of Treatment Health Maintenance Due Date Last Done Comments COLON CANCER SCREENING 02/28/2016 SHINGLES VACCINES (1 of 2) 02/28/2016 INFLUENZA VACCINE 11/11/2017 Procedures Procedure Name Priority Date/Time Associated Comments Diagnosis ESTIMATED GFR Routine 01/19/2018 4:00 Results for this AM CDT procedure are in the results section. PHOSPHORUS LEVEL Routine 01/19/2018 4:00 Results for this AM CDT procedure are in the results section. MAGNESIUM LEVEL Routine 01/19/2018 4:00 Results for this AM CDT procedure are in the results section. BASIC METABOLIC PANEL Routine 01/19/2018 4:00 Results for this AM CDT procedure are in the results section. HC COMPLETE BLD COUNT Routine 01/18/2018 4:30 Results for this W/AUTO DIFF AM CDT procedure are in the results section. ESTIMATED GFR Routine 01/18/2018 4:00 Results for this AM CDT procedure are in the results section. BASIC METABOLIC PANEL Routine 01/18/2018 4:00 Results for this AM CDT procedure are in the results section. HC COMPLETE BLD COUNT Routine 01/17/2018 4:10 Results for this W/AUTO DIFF AM CDT procedure are in the results section. ESTIMATED GFR Routine 01/17/2018 4:00 Results for this AM CDT procedure are in the results section. BASIC METABOLIC PANEL Routine 01/17/2018 4:00 Results for this AM CDT procedure are in the results section. OR FL < 1 HOUR Routine 01/16/2018 3:20 Results for this PM CDT procedure are in the results section. ME AN ELECTIVE Routine 01/16/2018 2:08 ENDOTRACHEAL AIRWAY PM CDT Procedure Note - Ethan Beckman CRNA - 01/16/2018 2:08 PM CDT Airway Date/Time: 01/16/2018 1:41 AM Performed by: ETHAN BECKMAN Authorized by: RICA DUMONT Location: OR Urgency: Elective Performed by: resident/INFORMATION SERVICES ASSISTANT/AA Preoxygenated with 100% O2: Yes C-spine Precautions Maintained Throughout: Yes Mask Ventilation: Easy mask Final Airway Type: Endotracheal airway Final Endotracheal Airway: ETT Cuffed: Yes Technique Used: Direct laryngoscopy Devices/Methods Used in Placement: Intubating stylet Insertion Site: Oral Blade Type: Tariq Laryngoscope Blade/Videolaryngoscope Blade Size: 2 ETT Size (mm): 7.5 Cuff at minimum occlusion pressure: Yes Measured from: Lips ETT to Lips (cm): 22 Placement Verified by: CO2 detection, direct visualization and equal breath sounds Laryngoscopic view: Grade I - full view of glottis Rapid Sequence Induction (RSI): No Modified RSI: No Number of Attempts at Approach: 1 Patient has very bad teeth upper and lower. Teeth protection used for the intubation, post intubated patient teeth remain unchanged. CHOLECYSTECTOMY, 01/16/2018 Cholecystitis with LAPAROSCOPIC 10:00 AM CDT cholelithiasis Kidney transplant status, cadaveric Immunosuppression due to drug therapy GERD (gastroesophageal reflux disease) HTN (hypertension) SURGICAL PATHOLOGY Routine 01/16/2018 Results for REQUEST 8:46 AM CDT this procedure are in the results section. CYCLOSPORINE A LEVEL Routine 01/16/2018 Results for 6:00 AM CDT this procedure are in the results section. CBC WITH PLATELET Routine 01/16/2018 Results for AND DIFFERENTIAL 5:00 AM CDT this procedure are in the results section. ESTIMATED GFR Routine 01/16/2018 Results for 4:00 AM CDT this procedure are in the results section. COMPREHENSIVE Routine 01/16/2018 Results for METABOLIC PANEL 4:00 AM CDT this procedure are in the results section. PHOSPHORUS LEVEL Routine 01/16/2018 Results for 4:00 AM CDT this procedure are in the results section. MAGNESIUM LEVEL Routine 01/16/2018 Results for 4:00 AM CDT this procedure are in the results section. URINALYSIS, Routine 01/15/2018 Results for AUTOMATED WITH 6:50 PM CDT this MICROSCOPY procedure are in the results section. XR THORACIC SPINE 2 STAT 01/15/2018 Results for VW 6:08 PM CDT this procedure are in the results section. US RENAL STAT 01/15/2018 Results for 4:19 PM CDT this procedure are in the results section. US RENAL TRANSPLANT STAT 01/15/2018 Results for DOPPLER 4:12 PM CDT this procedure are in the results section. XR CHEST 1 VW STAT 01/15/2018 Results for PORTABLE 11:46 AM CDT this procedure are in the results section. LIPASE LEVEL Routine 01/15/2018 Results for 11:21 AM CDT this procedure are in the results section. ESTIMATED GFR Routine 01/15/2018 Results for 11:21 AM CDT this procedure are in the results section. B NATRIURETIC Routine 01/15/2018 Results for PEPTIDE 11:21 AM CDT this procedure are in the results section. TROPONIN Routine 01/15/2018 Results for 11:21 AM CDT this procedure are in the results section. COMPREHENSIVE Routine 01/15/2018 Results for METABOLIC PANEL 11:21 AM CDT this procedure are in the results section. PARTIAL Routine 01/15/2018 Results for THROMBOPLASTIN TIME 11:21 AM CDT this (PTT) procedure are in the results section. PROTHROMBIN TIME Routine 01/15/2018 Results for WITH INR 11:21 AM CDT this procedure are in the results section. HC COMPLETE BLD Routine 01/15/2018 Results for COUNT W/AUTO DIFF 11:21 AM CDT this procedure are in the results section. US GALLBLADDER STAT 01/15/2018 Results for 11:14 AM CDT this procedure are in the results section. ECG 12-LEAD STAT 01/15/2018 Results for 9:36 AM CDT this procedure are in the results section. ESTIMATED GFR Routine 01/11/2018 Results for 9:40 AM CDT this procedure are in the results section. CYCLOSPORINE A LEVEL Routine 01/11/2018 Kidney replaced by transplant Results for 9:40 AM CDT Anemia of chronic renal this failure, unspecified CKD stage procedure Hypermagnesemia are in the Proteinuria, unspecified type results Essential hypertension, section. malignant Chronic kidney disease, stage III (moderate) (HCC) Disorder of phosphorus metabolism COMPREHENSIVE Routine 01/11/2018 Kidney replaced by transplant Results for METABOLIC PANEL 9:40 AM CDT Anemia of chronic renal this failure, unspecified CKD stage procedure Hypermagnesemia are in the Proteinuria, unspecified type results Essential hypertension, section. malignant Chronic kidney disease, stage III (moderate) (HCC) Disorder of phosphorus metabolism CREATININE LEVEL, Routine 01/11/2018 Kidney replaced by transplant Results for URINE, RANDOM 9:40 AM CDT Anemia of chronic renal this failure, unspecified CKD stage procedure Hypermagnesemia are in the Proteinuria, unspecified type results Essential hypertension, section. malignant Chronic kidney disease, stage III (moderate) (HCC) Disorder of phosphorus metabolism PROTEIN, URINE, Routine 01/11/2018 Kidney replaced by transplant Results for RANDOM 9:40 AM CDT Anemia of chronic renal this failure, unspecified CKD stage procedure Hypermagnesemia are in the Proteinuria, unspecified type results Essential hypertension, section. malignant Chronic kidney disease, stage III (moderate) (HCC) Disorder of phosphorus metabolism URINALYSIS SCREEN Routine 01/11/2018 Kidney replaced by transplant Results for AND MICROSCOPY, WITH 9:40 AM CDT Anemia of chronic renal this REFLEX TO CULTURE failure, unspecified CKD stage procedure Hypermagnesemia are in the Proteinuria, unspecified type results Essential hypertension, section. malignant Chronic kidney disease, stage III (moderate) (HCC) Disorder of phosphorus metabolism LDH Routine 01/11/2018 Kidney replaced by transplant Results for 9:40 AM CDT Anemia of chronic renal this failure, unspecified CKD stage procedure Hypermagnesemia are in the Proteinuria, unspecified type results Essential hypertension, section. malignant Chronic kidney disease, stage III (moderate) (HCC) Disorder of phosphorus metabolism URIC ACID LEVEL Routine 01/11/2018 Kidney replaced by transplant Results for 9:40 AM CDT Anemia of chronic renal this failure, unspecified CKD stage procedure Hypermagnesemia are in the Proteinuria, unspecified type results Essential hypertension, section. malignant Chronic kidney disease, stage III (moderate) (HCC) Disorder of phosphorus metabolism PHOSPHORUS LEVEL Routine 01/11/2018 Kidney replaced by transplant Results for 9:40 AM CDT Anemia of chronic renal this failure, unspecified CKD stage procedure Hypermagnesemia are in the Proteinuria, unspecified type results Essential hypertension, section. malignant Chronic kidney disease, stage III (moderate) (HCC) Disorder of phosphorus metabolism MAGNESIUM LEVEL Routine 01/11/2018 Kidney replaced by transplant Results for 9:40 AM CDT Anemia of chronic renal this failure, unspecified CKD stage procedure Hypermagnesemia are in the Proteinuria, unspecified type results Essential hypertension, section. malignant Chronic kidney disease, stage III (moderate) (HCC) Disorder of phosphorus metabolism HC COMPLETE BLD Routine 01/11/2018 Kidney replaced by transplant Results for COUNT W/AUTO DIFF 9:40 AM CDT Anemia of chronic renal this failure, unspecified CKD stage procedure Hypermagnesemia are in the Proteinuria, unspecified type results Essential hypertension, section. malignant Chronic kidney disease, stage III (moderate) (HCC) Disorder of phosphorus metabolism URINE CULTURE Routine 01/11/2018 Results for 9:40 AM CDT this procedure are in the results section. ZZESTIMATED GFR Routine 09/28/2017 Results for 8:05 AM CDT this procedure are in the results section. FK506 LEVEL Routine 09/28/2017 Kidney replaced by transplant Results for 8:05 AM CDT Anemia of chronic renal this failure, unspecified CKD stage procedure Hypermagnesemia are in the Proteinuria, unspecified type results Essential hypertension, section. malignant Chronic kidney disease, stage III (moderate) Disorder of phosphorus metabolism COMPREHENSIVE Routine 09/28/2017 Kidney replaced by transplant Results for METABOLIC PANEL 8:05 AM CDT Anemia of chronic renal this failure, unspecified CKD stage procedure Hypermagnesemia are in the Proteinuria, unspecified type results Essential hypertension, section. malignant Chronic kidney disease, stage III (moderate) Disorder of phosphorus metabolism PROTEIN, URINE, Routine 09/28/2017 Kidney replaced by transplant Results for RANDOM 8:05 AM CDT Anemia of chronic renal this failure, unspecified CKD stage procedure Hypermagnesemia are in the Proteinuria, unspecified type results Essential hypertension, section. malignant Chronic kidney disease, stage III (moderate) Disorder of phosphorus metabolism CREATININE LEVEL, Routine 09/28/2017 Kidney replaced by transplant Results for URINE, RANDOM 8:05 AM CDT Anemia of chronic renal this failure, unspecified CKD stage procedure Hypermagnesemia are in the Proteinuria, unspecified type results Essential hypertension, section. malignant Chronic kidney disease, stage III (moderate) Disorder of phosphorus metabolism URINALYSIS SCREEN Routine 09/28/2017 Kidney replaced by transplant Results for AND MICROSCOPY, WITH 8:05 AM CDT Anemia of chronic renal this REFLEX TO CULTURE failure, unspecified CKD stage procedure Hypermagnesemia are in the Proteinuria, unspecified type results Essential hypertension, section. malignant Chronic kidney disease, stage III (moderate) Disorder of phosphorus metabolism LDH Routine 09/28/2017 Kidney replaced by transplant Results for 8:05 AM CDT Anemia of chronic renal this failure, unspecified CKD stage procedure Hypermagnesemia are in the Proteinuria, unspecified type results Essential hypertension, section. malignant Chronic kidney disease, stage III (moderate) Disorder of phosphorus metabolism URIC ACID LEVEL Routine 09/28/2017 Kidney replaced by transplant Results for 8:05 AM CDT Anemia of chronic renal this failure, unspecified CKD stage procedure Hypermagnesemia are in the Proteinuria, unspecified type results Essential hypertension, section. malignant Chronic kidney disease, stage III (moderate) Disorder of phosphorus metabolism PHOSPHORUS LEVEL Routine 09/28/2017 Kidney replaced by transplant Results for 8:05 AM CDT Anemia of chronic renal this failure, unspecified CKD stage procedure Hypermagnesemia are in the Proteinuria, unspecified type results Essential hypertension, section. malignant Chronic kidney disease, stage III (moderate) Disorder of phosphorus metabolism MAGNESIUM LEVEL Routine 09/28/2017 Kidney replaced by transplant Results for 8:05 AM CDT Anemia of chronic renal this failure, unspecified CKD stage procedure Hypermagnesemia are in the Proteinuria, unspecified type results Essential hypertension, section. malignant Chronic kidney disease, stage III (moderate) Disorder of phosphorus metabolism HC COMPLETE BLD Routine 09/28/2017 Kidney replaced by transplant Results for COUNT W/AUTO DIFF 8:05 AM CDT Anemia of chronic renal this failure, unspecified CKD stage procedure Hypermagnesemia are in the Proteinuria, unspecified type results Essential hypertension, section. malignant Chronic kidney disease, stage III (moderate) Disorder of phosphorus metabolism URINE CULTURE Routine 09/28/2017 Results for 8:05 AM CDT this procedure are in the results section. after 04/24/2017 Results Estimated GFR (01/19/2018 4:00 AM CDT)Only the most recent of6 resultswithin the time period is included. Estimated GFR >=90 mL/min/1.73 m2 [facility] DEPARTMENT OF Comment: PATHOLOGY AND GENOMIC CatergoryUnitsInterpretation MEDICINE G1 >=90 Normal or high G2 60-89Mildly decreased [id number] to moderately decreased P1d68-49Rwrmiickld to severely decreased G4 15-29Severely decreased G5 <15Kidney failure The eGFR was calculated using the Chronic Kidney Disease Epidemiology Collaboration (CKD-EPI) equation. Interpretation is based on recommendations of the National Kidney Foundation-Kidney Disease Outcomes Quality Initiative (NKF-KDOQI) published in 2014. Specimen Plasma specimen Performing Organization Address City/State/Zipcode Phone Number [facility] DEPARTMENT OF PATHOLOGY AND [address] [place] [address] [facility] Phosphorus level (01/19/2018 4:00 AM CDT)Only the most recent of4 resultswithin the time period is included. Phosphorus 3.0 2.4 - 4.5 mg/dL [facility] DEPARTMENT OF PATHOLOGY AND GENOMIC MEDICINE Specimen Plasma specimen Performing Organization Address City/[facility] Phone Number [facility] DEPARTMENT OF PATHOLOGY AND [address] [place] [address] Magnesium level (01/19/2018 4:00 AM CDT)Only the most recent of4 resultswithin the time period is included. Magnesium 1.6 1.6 - 2.6 mg/dL [facility] DEPARTMENT OF PATHOLOGY AND GENOMIC MEDICINE Specimen Plasma specimen Performing Organization Address City/[facility] Phone Number [facility] DEPARTMENT OF PATHOLOGY AND [address] [place] [address] Basic metabolic panel (01/19/2018 4:00 AM CDT)Only the most recent of3 resultswithin the time period is included. Sodium 137 135 - 148 mEq/L [facility] DEPARTMENT OF PATHOLOGY AND GENOMIC MEDICINE Potassium 3.8 3.5 - 5.0 mEq/L [facility] DEPARTMENT OF PATHOLOGY AND GENOMIC MEDICINE Chloride 101 98 - 112 mEq/L [facility] DEPARTMENT OF PATHOLOGY AND GENOMIC MEDICINE CO2 27 24 - 31 mEq/L [facility] DEPARTMENT OF PATHOLOGY AND GENOMIC MEDICINE Anion gap 9@ANIO 7 - 15 mEq/L [facility] DEPARTMENT OF PATHOLOGY AND GENOMIC MEDICINE BUN 14 6 - 20 mg/dL [facility] DEPARTMENT OF PATHOLOGY AND GENOMIC MEDICINE Creatinine 1.03 0.70 - 1.20 mg/dL [facility] DEPARTMENT OF PATHOLOGY AND GENOMIC MEDICINE Glucose 91 65 - 99 mg/dL [facility] DEPARTMENT OF PATHOLOGY AND GENOMIC MEDICINE Calcium 9.6 8.3 - 10.2 mg/dL [facility] DEPARTMENT OF PATHOLOGY AND GENOMIC MEDICINE Specimen Plasma specimen Performing Organization Address [facility] Phone Number [facility] DEPARTMENT OF PATHOLOGY AND [address] [place] [address] CBC with platelet and differential (01/18/2018 4:30 AM CDT)Only the most recent of6 resultswithin the time period is included. WBC 10.97 4.50 - 11.00 k/uL [facility] DEPARTMENT OF PATHOLOGY AND GENOMIC MEDICINE RBC 3.73 (L) 4.40 - 6.00 m/uL [facility] DEPARTMENT OF PATHOLOGY AND GENOMIC MEDICINE HGB 11.3 (L) 14.0 - 18.0 g/dL [facility] DEPARTMENT OF PATHOLOGY AND GENOMIC MEDICINE HCT 34.3 (L) 41.0 - 51.0 % [facility] DEPARTMENT OF PATHOLOGY AND GENOMIC MEDICINE MCV 92.0 82.0 - 100.0 fL [facility] DEPARTMENT OF PATHOLOGY AND GENOMIC MEDICINE MCH 30.3 27.0 - 34.0 pg [facility] DEPARTMENT OF PATHOLOGY AND GENOMIC MEDICINE MCHC 32.9 31.0 - 37.0 g/dL [facility] DEPARTMENT OF PATHOLOGY AND GENOMIC MEDICINE RDW - SD 39.8 37.0 - 55.0 fL [facility] DEPARTMENT OF PATHOLOGY AND GENOMIC MEDICINE MPV 9.2 8.8 - 13.2 fL [facility] DEPARTMENT OF PATHOLOGY AND GENOMIC MEDICINE Platelet count 260 150 - 400 k/uL [facility] DEPARTMENT OF PATHOLOGY AND GENOMIC MEDICINE Nucleated RBC 0.00 /100 WBC [facility] DEPARTMENT OF PATHOLOGY AND GENOMIC MEDICINE Neutrophils 65.1 39.0 - 69.0 % [facility] DEPARTMENT OF PATHOLOGY AND GENOMIC MEDICINE Lymphocytes 24.0 (L) 25.0 - 45.0 % [facility] DEPARTMENT OF PATHOLOGY AND GENOMIC MEDICINE Monocytes 9.4 0.0 - 10.0 % [facility] DEPARTMENT OF PATHOLOGY AND GENOMIC MEDICINE Eosinophils 0.7 0.0 - 5.0 % [facility] DEPARTMENT OF PATHOLOGY AND GENOMIC MEDICINE Basophils 0.5 0.0 - 1.0 % [facility] DEPARTMENT OF PATHOLOGY AND GENOMIC MEDICINE Immature granulocytes 0.3Comment: 0.0 - 1.0 % [facility] DEPARTMENT OF "Immature PATHOLOGY AND GENOMIC granulocytes" MEDICINE (promyelocytes, myelocytes, metamyelocytes) Specimen Blood Performing Organization Address City/State/Zipcode Phone Number [facility] DEPARTMENT OF PATHOLOGY AND [address] [place] [address] GENOMIC MEDICINE OR [place] < 1 Hour (01/16/2018 3:20 PM CDT) Narrative Performed At IMPRESSION: C-arm fluoroscopy under one hour was provided in the OR for RADIANT the referring physician. A radiologist was not present during the procedure. Refer to the Operative report issued by the performing provider for procedure details. Location: [id number] Procedure: CHOLANGIOGRAM Start: 1445 End: 1515 Fluoro Time: 9S Dose: 6.58 mGy Tech: [id number] Procedure Note Interface, Radiology Results Incoming - 01/18/2018 12:05 PM CDT IMPRESSION: C-arm fluoroscopy under one hour was provided in the OR for the referring physician. A radiologist was not present during the procedure. Refer to the Operative report issued by the performing provider for procedure details. Location: [id number] Procedure: CHOLANGIOGRAM Start: 1445 End: 1515 Fluoro Time: 9S Dose: 6.58 mGy Tech: [id number] Performing Organization Address City/[facility]/Zipcode Phone Number [facility] [address] [place] [phone] Surgical pathology request (01/16/2018 8:46 AM CDT) [facility] DEPARTMENT OF PATHOLOGY AND GENOMIC MEDICINE Surgical pathology report See link below for PDF [facility] DEPARTMENT OF Lab Report PATHOLOGY AND GENOMIC MEDICINE Result status This is Final Report [facility] DEPARTMENT OF for [id number] PATHOLOGY AND GENOMIC MEDICINE Performing Organization Address [facility] Phone Number [facility] DEPARTMENT OF PATHOLOGY AND [address] [place] [id number] [facility] Cyclosporine A level (01/16/2018 6:00 AM CDT)Only the most recent of2 resultswithin the time period is included. Cyclosporine 45 ng/mL [facility] DEPARTMENT OF PATHOLOGY Comment: AND [facility] Unless administered by continuous IV drip, collect a purple top tube just before the next dose. Therapeutic range of approximately 100-500 varies mainly with type of transplant, use of other immunosuppressive agents, and evidence of toxicity or rejection. Test performed using [employer] Desk Clerk chemiluminescent microparticle immunoassay for Cyclosporine on the FURNACE HAND i System. Specimen Blood Performing Organization Address [facility] Phone Number [facility] DEPARTMENT OF PATHOLOGY AND [address] [place] [id number] [facility] Comprehensive metabolic panel (01/16/2018 4:00 AM CDT)Only the most recent of4 resultswithin the time period is included. Sodium 137 135 - 148 mEq/L [facility] DEPARTMENT OF PATHOLOGY AND GENOMIC MEDICINE Potassium 4.0 3.5 - 5.0 mEq/L [facility] DEPARTMENT OF PATHOLOGY AND GENOMIC MEDICINE Chloride 101 98 - 112 mEq/L [facility] DEPARTMENT OF PATHOLOGY AND GENOMIC MEDICINE CO2 25 24 - 31 mEq/L [facility] DEPARTMENT OF PATHOLOGY AND GENOMIC MEDICINE Anion gap 11@ANIO 7 - 15 mEq/L [facility] DEPARTMENT OF PATHOLOGY AND GENOMIC MEDICINE BUN 18 6 - 20 mg/dL [facility] DEPARTMENT OF PATHOLOGY AND GENOMIC MEDICINE Creatinine 1.12 0.70 - 1.20 mg/dL [facility] DEPARTMENT OF PATHOLOGY AND GENOMIC MEDICINE Glucose 80 65 - 99 mg/dL [facility] DEPARTMENT OF PATHOLOGY AND GENOMIC MEDICINE Calcium 10.0 8.3 - 10.2 mg/dL [facility] DEPARTMENT OF PATHOLOGY AND GENOMIC MEDICINE Protein 7.2 6.3 - 8.3 g/dL [facility] DEPARTMENT OF Comment: PATHOLOGY AND GENOMIC 4.6-7.0 g/dL MEDICINE 1 week 4.4-7.6 g/dL 7 months-1year5.1-7.3 g/dL 1-2 years5.6-7.5 g/dL >3 years6.0-8.0 g/dL 18-150 6.3-8.3 g/dL Albumin 3.1 (L) 3.5 - 5.0 g/dL [facility] DEPARTMENT OF PATHOLOGY AND GENOMIC MEDICINE A/G ratio 0.8 0.7 - 3.8 [facility] DEPARTMENT OF PATHOLOGY AND GENOMIC MEDICINE Alkaline phosphatase 60 40 - 129 U/L [facility] DEPARTMENT OF PATHOLOGY AND GENOMIC MEDICINE AST 19 10 - 50 U/L [facility] DEPARTMENT OF PATHOLOGY AND GENOMIC MEDICINE ALT 13 5 - 50 U/L [facility] DEPARTMENT OF PATHOLOGY AND GENOMIC MEDICINE Total bilirubin 0.6 0.0 - 1.2 mg/dL [facility] DEPARTMENT OF PATHOLOGY AND GENOMIC MEDICINE Specimen Plasma specimen Performing Organization Address City/State/[facility] Phone Number [facility] DEPARTMENT OF PATHOLOGY AND [address] [place] [address] MEDICINE Urinalysis, automated with microscopy (01/15/2018 6:50 PM CDT) Color, UA Yellow [facility] DEPARTMENT OF PATHOLOGY AND GENOMIC MEDICINE Appearance, UA Clear [facility] DEPARTMENT OF PATHOLOGY AND GENOMIC MEDICINE Specific gravity, UA 1.028 1.001 - 1.035 [facility] DEPARTMENT OF PATHOLOGY AND GENOMIC MEDICINE pH, UA 5.0 5.0 - 8.5 [facility] DEPARTMENT OF PATHOLOGY AND GENOMIC MEDICINE Protein, UA 3+ (A) Negative [facility] DEPARTMENT OF PATHOLOGY AND GENOMIC MEDICINE Glucose, UA Negative Negative [facility] DEPARTMENT OF PATHOLOGY AND GENOMIC MEDICINE Ketones, UA 2+ (A) Negative [facility] DEPARTMENT OF PATHOLOGY AND GENOMIC MEDICINE Bilirubin, UA Negative Negative [facility] DEPARTMENT OF PATHOLOGY AND GENOMIC MEDICINE Blood, UA Large (A) Negative [facility] DEPARTMENT OF PATHOLOGY AND GENOMIC MEDICINE Nitrite, UA Negative Negative [facility] DEPARTMENT OF PATHOLOGY AND GENOMIC MEDICINE Urobilinogen, UA <2.0 <2.0 [facility] DEPARTMENT OF PATHOLOGY AND GENOMIC MEDICINE Leukocyte esterase, UA Negative Negative [facility] DEPARTMENT OF PATHOLOGY AND GENOMIC MEDICINE Epithelial cells, UA 1 /HPF [facility] DEPARTMENT OF PATHOLOGY AND GENOMIC MEDICINE WBC, UA 2 (H) 0 - 1 /HPF [facility] DEPARTMENT OF PATHOLOGY AND GENOMIC MEDICINE RBC, UA 2 0 - 5 /HPF [facility] DEPARTMENT OF PATHOLOGY AND GENOMIC MEDICINE Bacteria, UA Few None seen [facility] DEPARTMENT OF PATHOLOGY AND GENOMIC MEDICINE Hyaline casts, UA 7 /LPF [facility] DEPARTMENT OF PATHOLOGY AND GENOMIC MEDICINE Yeast, UA None seen [facility] DEPARTMENT OF PATHOLOGY AND GENOMIC MEDICINE Yeast with pseudohyphae, UA None seen [facility] DEPARTMENT OF PATHOLOGY AND GENOMIC MEDICINE Specimen Urine - Urine, catheter Performing Organization Address [facility] Phone Number [facility] DEPARTMENT OF PATHOLOGY AND [address] [place] [address] GENOMIC MEDICINE XR Thoracic Spine 2 Vw (01/15/2018 6:08 PM CDT) Narrative Performed At EXAMINATION:XR THORACIC SPINE 2 VW [facility] CLINICAL HISTORY:Mid-back T-spine paininitial exam, upper back pains COMPARISON:08/19/2014 thoracic radiograph FINDINGS: 2 views of the thoracic spine were obtained. Vertebral bodies are normal in height. No vertebral fracture. Degenerative changes. Alignment is normal. Soft tissues are normal. IMPRESSION: No acute osseous abnormality of the thoracic spine. [facility]-[id number] Procedure Note Hm Interface, Radiology Results Incoming - 01/15/2018 6:15 PM CDT EXAMINATION: XR THORACIC SPINE 2 VW CLINICAL HISTORY: Mid-back T-spine pain initial exam, upper back pains COMPARISON: 08/19/2014 thoracic radiograph FINDINGS: 2 views of the thoracic spine were obtained. Vertebral bodies are normal in height. No vertebral fracture. Degenerative changes. Alignment is normal. Soft tissues are normal. IMPRESSION: No acute osseous abnormality of the thoracic spine. [facility]-[id number] Performing Organization Address [facility] Phone Number [facility] [address] [place] [address] US Renal (01/15/2018 4:19 PM CDT) Narrative Performed At EXAMINATION:US RENAL, US RENAL TRANSPLANT DOPPLER [facility] CLINICAL HISTORY:Hematuriarenal parenchymal cause suspected, patient has hematuriawe need renal US of the kidney Tx to RO mass and also renal [facility] [place] kidneys to rule out mass TECHNIQUE: Sonographic images of both [place] kidneys and the left iliac fossa renal transplant were obtained as well has grayscale, color Doppler, and waveform analysis of the renal transplant vessels. COMPARISON:None. FINDINGS: Right kidney: The right kidney is severely atrophic and increased in echogenicity. There is no evidence of mass, calculi, or hydronephrosis. The right kidney measures 6.7 x 2.9 x 2.0 cm. Left kidney: The left kidney is severely atrophic and increased in echogenicity. There is a 1.3 x 1.5 x 1.2 cm cyst in the lower pole. There are no calculi. There is no evidence of hydronephrosis. The left kidney measures 7.8 x 3.3 x 2.5 cm. A left iliac fossa renal transplant is present and measures 13.3 x 6.2 x 6.9 cm. Renal echogenicity is normal. There is no evidence of mass, calculi, or hydronephrosis. Renal Doppler evaluation demonstrates normal systolic upstrokes with good end diastolic flow. Resistive indices are in the 0.53-0.71 range. Normal venous waveform is noted. The urinary bladder is unremarkable. IMPRESSION: Changes consistent with end-stage renal disease. Small cyst lower pole [place] left kidney. Unremarkable left iliac fossa renal transplant with normal renal Doppler examination. [facility]-[id number] Procedure Note [facility], Radiology Results Incoming - 01/15/2018 4:36 PM CDT EXAMINATION: US RENAL, US RENAL TRANSPLANT DOPPLER CLINICAL HISTORY: Hematuria renal parenchymal cause suspected, patient has hematuria we need renal US of the kidney Tx to RO mass and also renal [facility] [place] kidneys to rule out mass TECHNIQUE: Sonographic images of both [place] kidneys and the left iliac fossa renal transplant were obtained as well has grayscale, color Doppler, and waveform analysis of the renal transplant vessels. COMPARISON: None. FINDINGS: Right kidney: The right kidney is severely atrophic and increased in echogenicity. There is no evidence of mass, calculi, or hydronephrosis. The right kidney measures 6.7 x 2.9 x 2.0 cm. Left kidney: The left kidney is severely atrophic and increased in echogenicity. There is a 1.3 x 1.5 x 1.2 cm cyst in the lower pole. There are no calculi. There is no evidence of hydronephrosis. The left kidney measures 7.8 x 3.3 x 2.5 cm. A left iliac fossa renal transplant is present and measures 13.3 x 6.2 x 6.9 cm. Renal echogenicity is normal. There is no evidence of mass, calculi, or hydronephrosis. Renal Doppler evaluation demonstrates normal systolic upstrokes with good end diastolic flow. Resistive indices are in the 0.53-0.71 range. Normal venous waveform is noted. The urinary bladder is unremarkable. IMPRESSION: Changes consistent with end-stage renal disease. Small cyst lower pole [place] left kidney. Unremarkable left iliac fossa renal transplant with normal renal Doppler examination. [id number] Performing Organization Address City/State/Zipcode Phone Number [facility] [address] [place] [address] US Renal Transplant Doppler (01/15/2018 4:12 PM CDT) Narrative Performed At EXAMINATION:US RENAL, US RENAL TRANSPLANT DOPPLER [facility] CLINICAL HISTORY:Hematuriarenal parenchymal cause suspected, patient has hematuriawe need renal US of the kidney Tx to RO mass and also renal [facility] [place] kidneys to rule out mass TECHNIQUE: Sonographic images of both [place] kidneys and the left iliac fossa renal transplant were obtained as well has grayscale, color Doppler, and waveform analysis of the renal transplant vessels. COMPARISON:None. FINDINGS: Right kidney: The right kidney is severely atrophic and increased in echogenicity. There is no evidence of mass, calculi, or hydronephrosis. The right kidney measures 6.7 x 2.9 x 2.0 cm. Left kidney: The left kidney is severely atrophic and increased in echogenicity. There is a 1.3 x 1.5 x 1.2 cm cyst in the lower pole. There are no calculi. There is no evidence of hydronephrosis. The left kidney measures 7.8 x 3.3 x 2.5 cm. A left iliac fossa renal transplant is present and measures 13.3 x 6.2 x 6.9 cm. Renal echogenicity is normal. There is no evidence of mass, calculi, or hydronephrosis. Renal Doppler evaluation demonstrates normal systolic upstrokes with good end diastolic flow. Resistive indices are in the 0.53-0.71 range. Normal venous waveform is noted. The urinary bladder is unremarkable. IMPRESSION: Changes consistent with end-stage renal disease. Small cyst lower pole [place] left kidney. Unremarkable left iliac fossa renal transplant with normal renal Doppler examination. [facility]-[id number] Procedure Note Interface, Radiology Results Incoming - 01/15/2018 4:36 PM CDT EXAMINATION: US RENAL, US RENAL TRANSPLANT DOPPLER CLINICAL HISTORY: Hematuria renal parenchymal cause suspected, patient has hematuria we need renal US of the kidney Tx to RO mass and also renal [facility] [place] kidneys to rule out mass TECHNIQUE: Sonographic images of both [place] kidneys and the left iliac fossa renal transplant were obtained as well has grayscale, color Doppler, and waveform analysis of the renal transplant vessels. COMPARISON: None. FINDINGS: Right kidney: The right kidney is severely atrophic and increased in echogenicity. There is no evidence of mass, calculi, or hydronephrosis. The right kidney measures 6.7 x 2.9 x 2.0 cm. Left kidney: The left kidney is severely atrophic and increased in echogenicity. There is a 1.3 x 1.5 x 1.2 cm cyst in the lower pole. There are no calculi. There is no evidence of hydronephrosis. The left kidney measures 7.8 x 3.3 x 2.5 cm. A left iliac fossa renal transplant is present and measures 13.3 x 6.2 x 6.9 cm. Renal echogenicity is normal. There is no evidence of mass, calculi, or hydronephrosis. Renal Doppler evaluation demonstrates normal systolic upstrokes with good end diastolic flow. Resistive indices are in the 0.53-0.71 range. Normal venous waveform is noted. The urinary bladder is unremarkable. IMPRESSION: Changes consistent with end-stage renal disease. Small cyst lower pole [place] left kidney. Unremarkable left iliac fossa renal transplant with normal renal Doppler examination. [id number] Performing Organization Address City/State/Zipcode Phone Number [facility] [address] [place] [address] XR Chest 1 Vw Portable (01/15/2018 11:46 AM CDT) Narrative Performed At EXAMINATION:XR CHEST 1 VW PORTABLE [facility] CLINICAL HISTORY:Chest Pain COMPARISON:None. IMPRESSION: The lungs and pleural spaces are clear.The cardiomediastinal silhouette is within normal limits.There is no significant skeletal finding. [facility]-[id number] Procedure Note Interface, Radiology Results Incoming - 01/15/2018 11:52 AM CDT EXAMINATION: XR CHEST 1 VW PORTABLE CLINICAL HISTORY: Chest Pain COMPARISON: None. IMPRESSION: The lungs and pleural spaces are clear. The cardiomediastinal silhouette is within normal limits. There is no significant skeletal finding. [facility]-[id number] Performing Organization Address City/[facility]/Zipcode Phone Number [address] [address] Troponin (01/15/2018 11:21 AM CDT) Troponin <0.30 0.00 - 0.30 ng/mL [facility] DEPARTMENT OF PATHOLOGY Comment: AND [facility]ICINE 0.30 - 1.49 ng/mlMay indicate increased risk of acute coronary syndrome. >=1.5 ng/mlConsistent with acute myocardial infarction. The diagnostic value of a single normal or non-diagnostic result is questionable.Serial samples at 2-6 hour intervals are required to rule out acute myocardial injury. Specimen Plasma specimen Performing Organization Address [facility] Phone Number [facility] DEPARTMENT OF PATHOLOGY AND [address] [place] [phone] [facility] Partial thromboplastin time, activated (01/15/2018 11:21 AM CDT) PTT 28.1 23.0 - 36.0 sec [facility] DEPARTMENT OF PATHOLOGY Comment: AND [facility] PTT therapeutic range for unfractionated heparin is 61.0-112.0 seconds which corresponds to Anti-Xa 0.3-0.7 U/ml. Specimen Blood Performing Organization Address [facility] Phone Number [facility] DEPARTMENT OF PATHOLOGY AND [address] [place] [address] [facility] Prothrombin time with INR (01/15/2018 11:21 AM CDT) Prothrombin time 13.8 12.0 - 15.0 sec [facility] DEPARTMENT OF PATHOLOGY AND GENOMIC MEDICINE INR 1.0 [facility] DEPARTMENT OF Comment: PATHOLOGY AND GENOMIC The International Normalized Ratio (INR) is a therapeutic MEDICINE monitoring tool for patients who are stable on oral anticoagulant therapy. An INR of 2.0-3.0 is suggested for deep vein thrombosis/pulmonary embolism. Specimen Blood Performing Organization Address [facility] Phone Number [facility] DEPARTMENT OF PATHOLOGY AND [address] [place] [address] [facility] B natriuretic peptide (01/15/2018 11:21 AM CDT) BNP 4 0 - 100 pg/mL [facility] DEPARTMENT OF PATHOLOGY AND [facility] Specimen Blood Performing Organization Address [facility]/Zipcode Phone Number [facility] DEPARTMENT OF PATHOLOGY AND [address] [place], [place] [phone] [place] [address] MEDICINE Lipase level (01/15/2018 11:21 AM CDT) Lipase 25 13 - 60 U/L [facility] DEPARTMENT OF PATHOLOGY AND GENOMIC [facility] Specimen Plasma specimen Performing Organization Address [facility] Phone Number [facility] DEPARTMENT OF PATHOLOGY AND [address] [place], [place] [id number] [place] [address] US Gallbladder (01/15/2018 11:14 AM CDT) Narrative Performed At EXAMINATION:US GALLBLADDER [facility] CLINICAL HISTORY:Cholelithiasis COMPARISON:None. FINDINGS: Gallbladder: Gallbladder contains multiple stones. There is no wall thickening or pericholecystic fluid. CBD:5 mm , within normal limits. Portal vein: The portal vein demonstrates normal hepatopetal flow. The portal vein measures 7 mm. IMPRESSION: Cholelithiasis without sonographic evidence of cholecystitis. [facility]-[id number] Procedure Note Hm Interface, Radiology Results Incoming - 01/15/2018 11:22 AM CDT EXAMINATION: US GALLBLADDER CLINICAL HISTORY: Cholelithiasis COMPARISON: None. FINDINGS: Gallbladder: Gallbladder contains multiple stones. There is no wall thickening or pericholecystic fluid. CBD: 5 mm , within normal limits. Portal vein: The portal vein demonstrates normal hepatopetal flow. The portal vein measures 7 mm. IMPRESSION: Cholelithiasis without sonographic evidence of cholecystitis. [facility]-[id number] Performing Organization Address [facility] Phone Number [facility] [address] [place] [address] ECG 12 lead (01/15/2018 9:36 AM CDT) Ventricular rate 82 H MUSE Atrial rate 82 [facility] MUSE ME interval 142 [facility] MUSE QRSD interval 88 [facility] MUSE QT interval 368 [facility] MUSE QTC interval 429 [facility] MUSE P axis 1 75 [facility] MUSE QRS axis 1 34 HM MUSE T wave axis 56 [facility] MUSE EKG impression Normal sinus rhythm-Normal ECG-In automated [facility] MUSE comparison with ECG of 10-OCT-2013 18:49,-No significant change was found- Performing Organization Address [facility] Phone Number [facility] MUSE [address] [place] [address] Urinalysis screen and microscopy, with reflex to culture (01/11/2018 9:40 AM CDT)Only the most recent of2 resultswithin the time period is included. Specimen site Clean catch [facility] DEPARTMENT OF PATHOLOGY AND GENOMIC MEDICINE Color, UA Yellow [facility] DEPARTMENT OF PATHOLOGY AND GENOMIC MEDICINE Appearance, UA Clear [facility] DEPARTMENT OF PATHOLOGY AND GENOMIC MEDICINE Specific gravity, UA 1.019 1.001 - 1.035 [facility] DEPARTMENT OF PATHOLOGY AND GENOMIC MEDICINE pH, UA 6.0 5.0 - 8.5 [facility] DEPARTMENT OF PATHOLOGY AND GENOMIC MEDICINE Protein, UA 3+ (A) Negative [facility] DEPARTMENT OF PATHOLOGY AND GENOMIC MEDICINE Glucose, UA Negative Negative [facility] DEPARTMENT OF PATHOLOGY AND GENOMIC MEDICINE Ketones, UA Negative Negative [facility] DEPARTMENT OF PATHOLOGY AND GENOMIC MEDICINE Bilirubin, UA Negative Negative [facility] DEPARTMENT OF PATHOLOGY AND GENOMIC MEDICINE Blood, UA Moderate (A) Negative [facility] DEPARTMENT OF PATHOLOGY AND GENOMIC MEDICINE Nitrite, UA Negative Negative [facility] DEPARTMENT OF PATHOLOGY AND GENOMIC MEDICINE Urobilinogen, UA 2.0 (A) <2.0 [facility] DEPARTMENT OF PATHOLOGY AND GENOMIC MEDICINE Leukocyte esterase, UA Negative Negative [facility] DEPARTMENT OF PATHOLOGY AND GENOMIC MEDICINE WBC, UA <1 0 - 1 /HPF [facility] DEPARTMENT OF PATHOLOGY AND GENOMIC MEDICINE RBC, UA 55 (H) 0 - 5 /HPF [facility] DEPARTMENT OF PATHOLOGY AND GENOMIC MEDICINE Bacteria, UA Few None seen [facility] DEPARTMENT OF PATHOLOGY AND GENOMIC MEDICINE Yeast, UA None seen [facility] DEPARTMENT OF PATHOLOGY AND GENOMIC MEDICINE Yeast with pseudohyphae, UA None seen [facility] DEPARTMENT OF PATHOLOGY AND GENOMIC MEDICINE Hyaline casts, UA 5 /LPF [facility] DEPARTMENT OF PATHOLOGY AND GENOMIC MEDICINE Specimen Urine Performing Organization Address City/[facility] Phone Number [facility] DEPARTMENT OF PATHOLOGY AND [address] [place] [address] [facility] Protein, urine, random (01/11/2018 9:40 AM CDT)Only the most recent of2 resultswithin the time period is included. Protein, urine random 200 mg/dL [facility] DEPARTMENT OF PATHOLOGY AND GENOMIC MEDICINE Specimen Urine Performing Organization Address City/[facility] Phone Number [facility] DEPARTMENT PATHOLOGY AND [address] [place] [address] [facility] Creatinine level, urine, random (01/11/2018 9:40 AM CDT)Only the most recent of2 resultswithin the time period is included. Creatinine, urine, random 216 mg/dL [facility] DEPARTMENT OF PATHOLOGY AND GENOMIC MEDICINE Specimen Urine Performing Organization Address City/[facility] Phone Number [facility] DEPARTMENT OF PATHOLOGY AND [address] [place] [address] Urine culture (01/11/2018 9:40 AM CDT)Only the most recent of2 resultswithin the time period is included. Urine culture SEE COMMENTComment: Bacteriuria [facility] DEPARTMENT OF PATHOLOGY screen negative. AND GENOMIC MEDICINE Performing Organization Address [facility] Phone Number [facility] DEPARTMENT OF PATHOLOGY AND [address] [place] [address] Uric acid level (01/11/2018 9:40 AM CDT)Only the most recent of2 resultswithin the time period is included. Uric acid 5.7 3.4 - 7.0 mg/dL [facility] DEPARTMENT OF PATHOLOGY AND GENOMIC MEDICINE Specimen Plasma specimen Performing Organization Address [facility] Phone Number [facility] DEPARTMENT OF PATHOLOGY AND [address] [place] [address] MEDICINE LDH (01/11/2018 9:40 AM CDT)Only the most recent of2 resultswithin the time period is included. LDH 160 87 - 225 U/L [facility] DEPARTMENT OF PATHOLOGY AND GENOMIC MEDICINE Specimen Plasma specimen Performing Organization Address [facility] Phone Number [facility] DEPARTMENT OF PATHOLOGY AND [address] [place] [address] Estimated GFR (09/28/2017 8:05 AM CDT) GFR Non Af Amer 70 mL/min/1.73 m2 [facility] DEPARTMENT OF PATHOLOGY AND GENOMIC MEDICINE GFR Af Amer 85 mL/min/1.73 m2 [facility] DEPARTMENT OF Comment: PATHOLOGY AND [...] specimen Performing Organization Address City/State/Zipcode Phone Number [facility] DEPARTMENT OF PATHOLOGY AND [address] [place] [address] [employer] FK506 level (09/28/2017 8:05 AM CDT) FK506 level <2.0 ng/mL [facility] DEPARTMENT OF PATHOLOGY Comment: AND GENOMIC MEDICINE Therapeutic range 5-20 ng/mL for 12 hour trough. The range varies depending on the organ transplanted, time after transplantation and co-administered immunosuppressant therapies. Please use clinical judgment to interpret test result. Test performed using [employer] Floor Desk Clerk chemiluminescent microparticle immunoassay for Tacrolimus on the FURNACE HAND i System. Specimen Blood Performing Organization Address City/[facility] Phone Number [facility] DEPARTMENT OF PATHOLOGY AND [address] [place] [address] [employer] after 04/24/2017 Insurance Payer Benefit Plan / Group Subscriber ID Type Phone Address MEDICARE MEDICARE PART A AND B xxxxxxxxxx Medicare [place], [place]
--- OUTSIDE RECORDS SUMMARY | 2018-04-25 06:45 | XMS REPORT | Clinical Summary ---
:1965 Author Organization [facility] Address [address] [place] [id number] Care Team Providers Name Role Phone Terrence Green MD Primary Care Provider Allergies No Known Allergies Medications Not on file Active Problems Not [...] travel history available. Last Filed Vital Signs Not on file Plan of Treatment Not on file Results Not on fileafter 04/24/2017 Insurance Payer Benefit Plan / Group Subscriber ID Type Phone Address [employer] [facility]
[2018-04-25] MEDS ORDERED: DICYCLOMINE HCL 10 MG CAP ONE (07:50)
[2018-04-25] MEDS ORDERED: NA CHLORIDE 0.9% 500 ML ONE (07:51)
[2018-04-25] MEDS ORDERED: ONDANSETRON 4 MG/2 ML VIAL ONE (07:51)
[2018-04-25 08:25] LABS: Absolute Lymphocytes (CBC) 2.3 K/uL (0.7-4.9); Absolute Monocytes 0.7 K/uL (0.1-1.3); Absolute Neutrophil 4.8 K/uL (1.8-8.0); Basophils % 1.2 % (0-1.3); Eosinophils % 5.2 % (0-4.4); Hematocrit 39.7 % (39.6-49.0); Lymphocytes % 27.2 % (15.3-44.8); MPV 7.7 fL (7.6-11.3); Monocytes % 8.5 % (3.3-12.3); RBC Red Blood Cell Count 4.36 M/uL (4.33-5.43)
[2018-04-25 08:39] LABS: ALT/SGPT 22 U/L (12-78); AST/SGOT 15 U/L (15-37); Albumin 3.1 g/dL (3.4-5.0); Alkaline Phosphatase 79 U/L (45-117); BUN Blood Urea Nitrogen 16 mg/dL (7-18); Bicarbonate 26 mmol/L (21-32); Bilirubin Direct < 0.1 mg/dL (0-0.2); Bilirubin Total 0.3 mg/dL (0.2-1.0); Glucose Level 92 mg/dL (74-106); Lipase 201 U/L (73-393); Protein, Total 6.8 g/dL (6.4-8.2); Sodium Level 142 mmol/L (136-145)
--- NOTE | 2018-04-25 09:16 | RAD REPORT ---
EXAM DESCRIPTION: CT - Abdomen Pelvis Wo Contrast - 04/25/2018 8:50 am CLINICAL HISTORY: Abdominal pain. no contrast;Abd pain COMPARISON: Abdomen Pelvis Wo Contrast dated 01/13/2018; Stone Protocol dated 12/04/2017 TECHNIQUE: CT imaging of the abdomen and pelvis was performed without contrast. Solid organ, bowel a nd vascular assessment is limited due to lack of IV and oral contrast. All CT scans are performed using dose optimization technique as appropriate and may include automated exposure control or mA/KV adjustment according to patient size. FINDINGS: The lower lung [place] are clear.Cholecystectomy clips. The liver, spleen, pancreas, adrenal glands are within normal limits for a limited non-contrast exami nation.Atrophic [place] kidneys with a left lower quadrant transplant kidney noted. No bowel obstruction, free air, free fluid or abscess. Moderate stool is present in the colon. The ap pendix is normal. The osseous structures are within normal limits. IMPRESSION: No acute intra-abdominal or pelvic findings. A limited non-contrast examination was performed as detailed.
--- NOTE | 2018-04-25 09:26 | ER ---
Nurse's Notes [facility] Name: Shoaib Freitas Jr Age: 53 yrs Sex: Male : 1965 Arrival Date: 04/25/2018 Time: 06:43 Bed 15 Private MD: Diagnosis: Generalized abdominal pain Presentation: 04/25 06:49 Presenting complaint: Patient states: I have been having nausea, abdominal pain and jb4 back pain that has lasted a week. 06:49 Transition of care: patient was not received from another setting of care. Onset of jb4 symptoms was April 18, 2018. Risk Assessment: Do you want to hurt yourself or someone else? Patient reports no desire to harm self or others. Initial Sepsis Screen: Does the patient meet any 2 criteria? No. Patient's initial sepsis screen is negative. Does the patient have a suspected source of infection? No. Patient's initial sepsis screen is negative. Care prior to arrival: None. 06:49 Method Of Arrival: Ambulatory jb4 06:49 Acuity: COBY 3 jb4 Triage Assessment: 06:49 General: Appears in no apparent distress. comfortable, Behavior is calm, cooperative, jb4 appropriate for age. Pain: Complains of pain in back and abdomen Pain does not radiate. Pain currently is 7 out of 10 on a pain scale. GI: Abdomen is round non-distended, Abd is soft X 4 quads Abdomen is tender to palpation X 4 quads. Reports lower abdominal pain, upper abdominal pain, nausea. Historical: - Allergies: 06:49 No Known Allergies; jb4 - Home Meds: 06:49 diltiazem HCl 240 mg Oral cpER 1 cap once daily for Hypertension [Active]; prednisone 5 jb4 mg Oral tab once daily [Active]; valsartan 40 mg Oral tab 1 tab once daily for Hypertension [Active]; - PMHx: 06:49 Gall Stones; Hypertension; Pancreatitis; jb4 - PSHx: 06:49 kidney transplant; Cholecystectomy; jb4 - Immunization history:: Adult Immunizations up to date, Flu vaccine is not up to date. - Social history:: Smoking status: Patient/guardian denies using tobacco, but has a distant history of tobacco abuse, Patient uses alcohol. - Ebola Screening: : No symptoms or risks identified at this time. Screenin:00 Abuse screen: Denies threats or abuse. Nutritional screening: No deficits noted. rb1 Tuberculosis screening: No symptoms or risk factors identified. Fall Risk None identified. Assessment: 07:00 General: Appears in no apparent distress. comfortable, Behavior is calm, cooperative, rb1 Denies fever. Pain: Complains of pain in abdomen Pain radiates to back Pain currently is 7 out of 10 on a pain scale. Neuro: Level of Consciousness is awake, alert, obeys commands, Oriented to person, place, time, situation. Cardiovascular: Capillary refill < 3 seconds is brisk in bilateral fingers. Respiratory: Airway is patent Respiratory effort is even, unlabored, Respiratory pattern is regular, symmetrical. GI: Bowel sounds present X 4 quads. : No signs and/or symptoms were reported regarding the genitourinary system. Derm: Skin is dry, Skin is normal, Skin temperature is warm. Musculoskeletal: Range of motion: intact in all extremities. 08:00 Reassessment: Patient appears in no apparent distress at this time. No changes from rb1 previously documented assessment. at bedside. 09:00 Reassessment: Patient appears in no apparent distress at this time. Patient and/or rb1 family updated on plan of care and expected duration. Pain level reassessed. Patient is alert, oriented x 3, equal unlabored respirations, skin warm/dry/pink. Vital Signs: 06:49 BP 140 / 98; Pulse 77; Resp 18; Temp 99.7(O); Pulse Ox 100% on R/A; Weight 89.81 kg jb4 (R); Height 5 ft. 11 in. (180.34 cm) (R); 07:00 BP 134 / 85; Pulse 68; Resp 17; Temp 98.1(TE); Pulse Ox 100% on R/A; Weight 88.45 kg rb1 (R); Height 5 ft. 11 in. (180.34 cm) (R); Pain 7/10; 08:00 BP 119 / 84; Pulse 67; Resp 18; Pulse Ox 99% on R/A; rb1 09:00 BP 141 / 98; Pulse 65; Resp 17; Pulse Ox 100% on R/A; Pain 5/10; rb1 09:30 BP 144 / 98; Pulse 67; Resp 17; Pulse Ox 100% on R/A; rb1 07:00 Body Mass Index 27.20 (88.45 kg, 180.34 cm) [facility] ED Course: 06:43 Patient arrived in ED. es 06:49 Latesha Zhao FNP-C [facility]. kb 06:49 Sebas Stephenson MD is Attending Physician. kb 06:49 Arm band placed on right wrist. jb4 06:58 Lefty Silva, RN is Primary Nurse. jb4 07:00 Patient has correct armband on for positive identification. Bed in low position. Call rb1 light in reach. Side rails up X 1. Pulse ox on. NIBP on. 07:06 Triage completed. jb4 08:08 Missed attempt(s): 22 gauge in right hand. Bleeding controlled, band aid applied, dh3 catheter tip intact. 08:10 Initial lab(s) drawn, by me, sent to lab. Inserted saline lock: 24 gauge in left hand, dh3 using aseptic technique. Blood collected. 08:[address] via wheelchair. bq 08:48 CT completed. Patient tolerated procedure well. bq 08:50 Patient moved back from CT. bq 08:50 CT Abd/Pelvis - Without Cont In Process Unspecified. EDMS 09:46 No provider procedures requiring assistance completed. IV discontinued, intact, rb1 bleeding controlled, No redness/swelling at site. Pressure dressing applied. Administered Medications: 07:54 Drug: Bentyl 20 mg Route: PO; rb1 08:20 Follow up: Response: No adverse reaction rb1 08:13 Drug: NS 0.9% 500 ml Route: IV; Rate: bolus; Site: left hand; rb1 08:45 Follow up: IV Status: Completed infusion rb1 08:13 Drug: Zofran 4 mg Route: IVP; Site: left hand; rb1 08:30 Follow up: Response: No adverse reaction; Nausea is decreased rb1 Outcome: 09:25 Discharge ordered by . kb 09:46 Patient left the ED. rb1 09:46 Discharged to home ambulatory, with family. rb1 09:46 Condition: stable 09:46 Discharge instructions given to patient, Instructed on discharge instructions, follow up and referral plans. medication usage, Demonstrated understanding of instructions, follow-up care, medications, Prescriptions given X 2. Signatures: Dispatcher [employer] EDME Latesha Zhao FNP-C EXPENSE CLERK-CkDayanara Chase es Joeyilty, Daisy bq Valerie Shepherd RN RN rb1 Lefty Silva, RN RN jb4 Carine Johnson 3
--- NOTE | 2018-04-25 09:26 | EDPHYS ---
Physician Documentation [facility] Name: Shoaib Freitas Jr Age: 53 yrs Sex: Male : 1965 Arrival Date: 04/25/2018 Time: 06:43 Bed 15 Private MD: ED Physician Sebas Stephenson HPI: 04/25 06:58 This 53 yrs old Black Male presents to ER via Unassigned with complaints of Abdominal kb Pain, Nausea, Back Pain. 06:58 The patient presents with abdominal pain in the upper abdomen. Onset: The kb symptoms/episode began/occurred 1 week(s) ago. The symptoms do not radiate. Associated signs and symptoms: Pertinent positives: nausea, vomiting, and diarrhea. The symptoms are described as constant. Modifying factors: The symptoms are alleviated by nothing, the symptoms are aggravated by nothing. Severity of pain: At its worst the pain was mild moderate in the emergency department the pain is unchanged. The patient has not experienced similar symptoms in the past. The patient has not recently seen a physician. Pt reports abd pain that started a week ago. States he vomited twice over the week and had an episode of diarrhea 2 days ago. Reports intermittent back pain as well. . Historical: - Allergies: 06:49 No Known Allergies; jb4 - Home Meds: 06:49 diltiazem HCl 240 mg Oral cpER 1 cap once daily for Hypertension [Active]; prednisone 5 jb4 mg Oral tab once daily [Active]; valsartan 40 mg Oral tab 1 tab once daily for Hypertension [Active]; - PMHx: 06:49 Gall Stones; Hypertension; Pancreatitis; jb4 - PSHx: 06:49 kidney transplant; Cholecystectomy; jb4 - Immunization history:: Adult Immunizations up to date, Flu vaccine is not up to date. - Social history:: Smoking status: Patient/guardian denies using tobacco, but has a distant history of tobacco abuse, Patient uses alcohol. - Ebola Screening: : No symptoms or risks identified at this time. ROS: 06:58 Constitutional: Negative for fever, chills, and weight loss, ENT: Negative for injury, kb pain, and discharge, Neck: Negative for injury, pain, and swelling, Cardiovascular: Negative for chest pain, palpitations, and edema, Respiratory: Negative for shortness of breath, cough, wheezing, and pleuritic chest pain, Back: Negative for injury and pain, : Negative for injury, bleeding, discharge, and swelling, MS/Extremity: Negative for injury and deformity, Skin: Negative for injury, rash, and discoloration, Neuro: Negative for headache, weakness, numbness, tingling, and seizure. 06:58 Abdomen/GI: Positive for abdominal pain, nausea, vomiting, and diarrhea, Negative for constipation, abdominal cramps, abdominal distension, anorexia. Exam: 06:58 Constitutional: This is a well developed, well nourished patient who is awake, alert, kb and in no acute distress. Head/Face: Normocephalic, atraumatic. ENT: Nares patent. No nasal discharge, no septal abnormalities noted. Tympanic membranes are normal and external auditory canals are clear. Oropharynx with no redness, swelling, or masses, exudates, or evidence of obstruction, uvula midline. Mucous membranes moist. Neck: Trachea midline, no thyromegaly or masses palpated, and no cervical lymphadenopathy. Supple, full range of motion without nuchal rigidity, or vertebral point tenderness. No Meningismus. Chest/axilla: Normal chest wall appearance and motion. Nontender with no deformity. No lesions are appreciated. Cardiovascular: Regular rate and rhythm with a normal S1 and S2. No gallops, murmurs, or rubs. Normal PMI, no JVD. No pulse deficits. Respiratory: Lungs have equal breath sounds bilaterally, clear to auscultation and percussion. No rales, rhonchi or wheezes noted. No increased work of breathing, no retractions or nasal flaring. Skin: Warm, dry with normal turgor. Normal color with no rashes, no lesions, and no evidence of cellulitis. MS/ Extremity: Pulses equal, no cyanosis. Neurovascular intact. Full, normal range of motion. Neuro: Awake and alert, GCS 15, oriented to person, place, time, and situation. Cranial nerves II-XII grossly intact. Motor strength 5/5 in all extremities. Sensory grossly intact. Cerebellar exam normal. Normal gait. 06:58 Abdomen/GI: Inspection: abdomen appears normal, Bowel sounds: normal, in all quadrants, Palpation: soft, in all quadrants, mild abdominal tenderness, in all quadrants. Vital Signs: 06:49 BP 140 / 98; Pulse 77; Resp 18; Temp 99.7(O); Pulse Ox 100% on R/A; Weight 89.81 kg jb4 (R); Height 5 ft. 11 in. (180.34 cm) (R); 07:00 BP 134 / 85; Pulse 68; Resp 17; Temp 98.1(TE); Pulse Ox 100% on R/A; Weight 88.45 kg rb1 (R); Height 5 ft. 11 in. (180.34 cm) (R); Pain 7/10; 08:00 BP 119 / 84; Pulse 67; Resp 18; Pulse Ox 99% on R/A; rb1 09:00 BP 141 / 98; Pulse 65; Resp 17; Pulse Ox 100% on R/A; Pain 5/10; rb1 09:30 BP 144 / 98; Pulse 67; Resp 17; Pulse Ox 100% on R/A; rb1 07:00 Body Mass Index 27.20 (88.45 kg, 180.34 cm) rb1 MDM: 06:49 Patient medically screened. kb 07:03 Data reviewed: vital signs, nurses notes. Data interpreted: Pulse oximetry: on room air kb is 100 %. Interpretation: normal. 09:24 Counseling: I had a detailed discussion with the patient and/or guardian regarding: the kb historical points, exam findings, and any diagnostic results supporting the discharge/admit diagnosis, lab results, radiology results, the need for outpatient follow up, a family practitioner, to return to the emergency department if symptoms worsen or persist or if there are any questions or concerns that arise at home. 04/25 07:36 Order name: Basic Metabolic Panel; Complete Time: 08:48 kb 04/25 07:36 Order name: CBC with Diff; Complete Time: 08:34 kb 04/25 07:36 Order name: Hepatic Function; Complete Time: 08:48 kb 04/25 07:36 Order name: Lipase; Complete Time: 08:48 kb 04/25 08:35 Order name: CT Abd/Pelvis - Without Cont; Complete Time: 09:22 kb 04/25 07:36 Order name: IV Saline Lock; Complete Time: 08:14 kb 04/25 07:36 Order name: Labs collected and sent; Complete Time: 08:14 kb Administered Medications: 07:54 Drug: Bentyl 20 mg Route: PO; rb1 08:20 Follow up: Response: No adverse reaction rb1 08:13 Drug: NS 0.9% 500 ml Route: IV; Rate: bolus; Site: left hand; rb1 08:45 Follow up: IV Status: Completed infusion rb1 08:13 Drug: Zofran 4 mg Route: IVP; Site: left hand; rb1 08:30 Follow up: Response: No adverse reaction; Nausea is decreased rb1 Disposition: 04/26 01:27 Co-signature as Attending Physician, Sebas Stephenson MD. rn Disposition: 04/25/18 09:25 Discharged to Home. Impression: Generalized abdominal pain. - Condition is Stable. - Discharge Instructions: Abdominal Pain, Adult, [id number]. - Prescriptions for Bentyl 20 mg Oral Tablet - take 1 tablet by ORAL route every 6 hours As needed; 20 tablet. Zofran 4 mg Oral Tablet - take 1 tablet by ORAL route every 12 hours As needed; 20 tablet. - Medication Reconciliation Form, Thank You Letter, Antibiotic Education, Prescription Opioid Use, Work release form form. - Follow up: Emergency Department; When: As needed; Reason: Worsening of condition. Follow up: Private Physician; When: 2 - 3 days; Reason: Recheck today's complaints, Continuance of care, Re-evaluation by your physician. Signatures: Dispatcher [employer] EDHI Latesha Zhao, SYSTEMS SUPPORT SPECIALIST-C SYSTEMS SUPPORT SPECIALIST-Ckb Sebas Stephenson MD MD rn Valerie Shepherd RN RN Lefty Gomez RN RN jb4 Corrections: (The following items were deleted from the chart) 04/25 09:46 09:25 04/25/2018 09:25 Discharged to Home. Impression: Generalized abdominal pain. rb1 Condition is Stable. Forms are Medication Reconciliation Form, Thank You Letter, Antibiotic Education, Prescription Opioid Use. Follow up: Emergency Department; When: As needed; Reason: Worsening of condition. Follow up: Private Physician; When: 2 - 3 days; Reason: Recheck today's complaints, Continuance of care, Re-evaluation by your physician. kb
[2018-04-25 09:52] VITALS: TEMP 98.1
[2018-04-25 09:53] VITALS: BP 119/84; O2SAT 99
== END 2018-04-25 09:46 | disposition home or self-care (01) ==
LOC: ER 06:40
DX: R10.84 Generalized abdominal pain (principal); R11.2 Nausea with vomiting, unspecified; I10 Essential (primary) hypertension; Z94.0 Kidney transplant status
CPT/HCPCS: 36415; 74176; 80048; 80076; 83690; 85025; 96361; 96374; 99284; J2405

== ENCOUNTER 2018-05-23 14:07 | Emergency (ER) | payer OTHER ==
--- OUTSIDE RECORDS SUMMARY | 2018-05-23 14:49 | XMS REPORT | Clinical Summary ---
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 after 05/22/2017 Results Estimated GFR (01/19/2018 4:00 AM CDT)Only the most recent of6 resultswithin the time period is included. Estimated GFR >=90 mL/min/1.73 m2 [facility] DEPARTMENT OF Comment: PATHOLOGY AND GENOMIC CatergoryUnitsInterpretation MEDICINE G1 >=90 Normal or high G2 60-89Mildly decreased [id number] to moderately decreased W4b57-10Ibjgmttdwc to severely decreased G4 15-29Severely decreased G5 <15Kidney failure The eGFR was calculated using the Chronic Kidney Disease Epidemiology Collaboration (CKD-EPI) equation. Interpretation is based on recommendations of the National Kidney Foundation-Kidney Disease Outcomes Quality Initiative (NKF-KDOQI) published in 2014. Specimen Plasma specimen Performing Organization Address City/State/Zipcode Phone Number [facility] DEPARTMENT OF PATHOLOGY AND [address] [place] [address] [employer] MEDICINE Phosphorus level (01/19/2018 4:00 AM CDT)Only the most recent of4 resultswithin the time period is included. Phosphorus 3.0 2.4 - 4.5 mg/dL [facility] DEPARTMENT OF PATHOLOGY AND GENOMIC MEDICINE Specimen Plasma specimen Performing Organization Address City/[facility] Phone Number [facility] DEPARTMENT OF PATHOLOGY AND [address] [place] [address] Magnesium level (01/19/2018 4:00 AM CDT)Only the most recent of4 resultswithin the time period is included. Magnesium 1.6 1.6 - 2.6 mg/dL [facility] DEPARTMENT OF PATHOLOGY AND GENOMIC MEDICINE Specimen Plasma specimen Performing Organization Address City/[facility] Phone Number [facility] DEPARTMENT OF PATHOLOGY AND [address] [place] [address] Basic metabolic panel (01/19/2018 4:00 AM CDT)Only the most recent of3 resultswithin the time period is included. Sodium 137 135 - 148 mEq/L [facility] DEPARTMENT OF PATHOLOGY AND GENOMIC MEDICINE Potassium 3.8 3.5 - 5.0 mEq/L [facility] DEPARTMENT OF PATHOLOGY AND GENOMIC MEDICINE Chloride 101 98 - 112 mEq/L [facility] DEPARTMENT OF PATHOLOGY AND GENOMIC MEDICINE CO2 27 24 - 31 mEq/L [facility] DEPARTMENT OF PATHOLOGY AND GENOMIC MEDICINE Anion gap 9@ANIO 7 - 15 mEq/L [facility] DEPARTMENT OF PATHOLOGY AND GENOMIC MEDICINE BUN 14 6 - 20 mg/dL [facility] DEPARTMENT OF PATHOLOGY AND GENOMIC MEDICINE Creatinine 1.03 0.70 - 1.20 mg/dL [facility] DEPARTMENT OF PATHOLOGY AND GENOMIC MEDICINE Glucose 91 65 - 99 mg/dL [facility] DEPARTMENT OF PATHOLOGY AND GENOMIC MEDICINE Calcium 9.6 8.3 - 10.2 mg/dL [facility] DEPARTMENT OF PATHOLOGY AND GENOMIC MEDICINE Specimen Plasma specimen Performing Organization Address [facility] Phone Number [facility] DEPARTMENT OF PATHOLOGY AND [address] [place] [address] CBC with platelet and differential (01/18/2018 4:30 AM CDT)Only the most recent of6 resultswithin the time period is included. WBC 10.97 4.50 - 11.00 k/uL [facility] DEPARTMENT OF PATHOLOGY AND GENOMIC MEDICINE RBC 3.73 (L) 4.40 - 6.00 m/uL [facility] DEPARTMENT OF PATHOLOGY AND GENOMIC MEDICINE HGB 11.3 (L) 14.0 - 18.0 g/dL [facility] DEPARTMENT OF PATHOLOGY AND GENOMIC MEDICINE HCT 34.3 (L) 41.0 - 51.0 % [facility] DEPARTMENT OF PATHOLOGY AND GENOMIC MEDICINE MCV 92.0 82.0 - 100.0 fL [facility] DEPARTMENT OF PATHOLOGY AND GENOMIC MEDICINE MCH 30.3 27.0 - 34.0 pg [facility] DEPARTMENT OF PATHOLOGY AND GENOMIC MEDICINE MCHC 32.9 31.0 - 37.0 g/dL [facility] DEPARTMENT OF PATHOLOGY AND GENOMIC MEDICINE RDW - SD 39.8 37.0 - 55.0 fL [facility] DEPARTMENT OF PATHOLOGY AND GENOMIC MEDICINE MPV 9.2 8.8 - 13.2 fL [facility] DEPARTMENT OF PATHOLOGY AND GENOMIC MEDICINE Platelet count 260 150 - 400 k/uL [facility] DEPARTMENT OF PATHOLOGY AND GENOMIC MEDICINE Nucleated RBC 0.00 /100 WBC [facility] DEPARTMENT OF PATHOLOGY AND GENOMIC MEDICINE Neutrophils 65.1 39.0 - 69.0 % [facility] DEPARTMENT OF PATHOLOGY AND GENOMIC MEDICINE Lymphocytes 24.0 (L) 25.0 - 45.0 % [facility] DEPARTMENT OF PATHOLOGY AND GENOMIC MEDICINE Monocytes 9.4 0.0 - 10.0 % [facility] DEPARTMENT OF PATHOLOGY AND GENOMIC MEDICINE Eosinophils 0.7 0.0 - 5.0 % [facility] DEPARTMENT OF PATHOLOGY AND GENOMIC MEDICINE Basophils 0.5 0.0 - 1.0 % [facility] DEPARTMENT OF PATHOLOGY AND GENOMIC MEDICINE Immature granulocytes 0.3Comment: 0.0 - 1.0 % [facility] DEPARTMENT OF "Immature PATHOLOGY AND GENOMIC granulocytes" MEDICINE (promyelocytes, myelocytes, metamyelocytes) Specimen Blood Performing Organization Address City/State/Zipcode Phone Number [facility] DEPARTMENT OF PATHOLOGY AND [address] [place] [address] GENOMIC MEDICINE OR [place] < 1 Hour [...] mGy Tech: [id number] Performing Organization Address City/[facility]/Zipcode Phone Number [facility] [address] [place] [phone] Surgical pathology request (01/16/2018 8:46 AM CDT) [facility] DEPARTMENT OF PATHOLOGY AND GENOMIC MEDICINE Surgical pathology report See link below for PDF [facility] DEPARTMENT OF Lab Report PATHOLOGY AND GENOMIC MEDICINE Result status This is Final Report [facility] DEPARTMENT OF for [id number] PATHOLOGY AND GENOMIC MEDICINE Performing Organization Address [facility]comt Phone Number [facility] DEPARTMENT OF PATHOLOGY AND [address] [place] [phone] [employer] Cyclosporine A level (01/16/2018 6:00 AM CDT)Only the most recent of2 resultswithin the time period is included. Cyclosporine 45 ng/mL [facility] DEPARTMENT OF PATHOLOGY Comment: AND [employer] MEDICINE Unless administered by continuous IV drip, collect a purple top tube just before the next dose. Therapeutic range of approximately 100-500 varies mainly with type of transplant, use of other immunosuppressive agents, and evidence of toxicity or rejection. Test performed using [employer] chemiluminescent microparticle immunoassay for Cyclosporine on the CITY [employer]ESS[employer] i System. Specimen Blood Performing Organization Address [facility] Phone Number [facility] DEPARTMENT OF PATHOLOGY AND [address] [place] [phone] [employer] MEDICINE Comprehensive metabolic panel (01/16/2018 4:00 AM CDT)Only the most recent of4 resultswithin the time period is included. Sodium 137 135 - 148 mEq/L [facility] DEPARTMENT OF PATHOLOGY AND GENOMIC MEDICINE Potassium 4.0 3.5 - 5.0 mEq/L [facility] DEPARTMENT OF PATHOLOGY AND GENOMIC MEDICINE Chloride 101 98 - 112 mEq/L [facility] DEPARTMENT OF PATHOLOGY AND GENOMIC MEDICINE CO2 25 24 - 31 mEq/L [facility] DEPARTMENT OF PATHOLOGY AND GENOMIC MEDICINE Anion gap 11@ANIO 7 - 15 mEq/L [facility] DEPARTMENT OF PATHOLOGY AND GENOMIC MEDICINE BUN 18 6 - 20 mg/dL [facility] DEPARTMENT OF PATHOLOGY AND GENOMIC MEDICINE Creatinine 1.12 0.70 - 1.20 mg/dL [facility] DEPARTMENT OF PATHOLOGY AND GENOMIC MEDICINE Glucose 80 65 - 99 mg/dL [facility] DEPARTMENT OF PATHOLOGY AND GENOMIC MEDICINE Calcium 10.0 8.3 - 10.2 mg/dL [facility] DEPARTMENT OF PATHOLOGY AND GENOMIC MEDICINE Protein 7.2 6.3 - 8.3 g/dL [facility] DEPARTMENT OF Comment: PATHOLOGY AND GENOMIC 4.6-7.0 g/dL MEDICINE 1 week 4.4-7.6 g/dL 7 months-1year5.1-7.3 g/dL 1-2 years5.6-7.5 g/dL >3 years6.0-8.0 g/dL 18-150 6.3-8.3 g/dL Albumin 3.1 (L) 3.5 - 5.0 g/dL [facility] DEPARTMENT OF PATHOLOGY AND GENOMIC MEDICINE A/G ratio 0.8 0.7 - 3.8 [facility] DEPARTMENT OF PATHOLOGY AND GENOMIC MEDICINE Alkaline phosphatase 60 40 - 129 U/L [facility] DEPARTMENT OF PATHOLOGY AND GENOMIC MEDICINE AST 19 10 - 50 U/L [facility] DEPARTMENT OF PATHOLOGY AND GENOMIC MEDICINE ALT 13 5 - 50 U/L [facility] DEPARTMENT OF PATHOLOGY AND GENOMIC MEDICINE Total bilirubin 0.6 0.0 - 1.2 mg/dL [facility] DEPARTMENT OF PATHOLOGY AND GENOMIC MEDICINE Specimen Plasma specimen Performing Organization Address City/State/[facility] Phone Number [facility] DEPARTMENT OF PATHOLOGY AND [address] [place] [address] MEDICINE Urinalysis, automated with microscopy (01/15/2018 6:50 PM CDT) Color, UA Yellow [facility] DEPARTMENT OF PATHOLOGY AND GENOMIC MEDICINE Appearance, UA Clear [facility] DEPARTMENT OF PATHOLOGY AND GENOMIC MEDICINE Specific gravity, UA 1.028 1.001 - 1.035 [facility] DEPARTMENT OF PATHOLOGY AND GENOMIC MEDICINE pH, UA 5.0 5.0 - 8.5 [facility] DEPARTMENT OF PATHOLOGY AND GENOMIC MEDICINE Protein, UA 3+ (A) Negative [facility] DEPARTMENT OF PATHOLOGY AND GENOMIC MEDICINE Glucose, UA Negative Negative [facility] DEPARTMENT OF PATHOLOGY AND GENOMIC MEDICINE Ketones, UA 2+ (A) Negative [facility] DEPARTMENT OF PATHOLOGY AND GENOMIC MEDICINE Bilirubin, UA Negative Negative [facility] DEPARTMENT OF PATHOLOGY AND GENOMIC MEDICINE Blood, UA Large (A) Negative [facility] DEPARTMENT OF PATHOLOGY AND GENOMIC MEDICINE Nitrite, UA Negative Negative [facility] DEPARTMENT OF PATHOLOGY AND GENOMIC MEDICINE Urobilinogen, UA <2.0 <2.0 [facility] DEPARTMENT OF PATHOLOGY AND GENOMIC MEDICINE Leukocyte esterase, UA Negative Negative [facility] DEPARTMENT OF PATHOLOGY AND GENOMIC MEDICINE Epithelial cells, UA 1 /HPF [facility] DEPARTMENT OF PATHOLOGY AND GENOMIC MEDICINE WBC, UA 2 (H) 0 - 1 /HPF [facility] DEPARTMENT OF PATHOLOGY AND GENOMIC MEDICINE RBC, UA 2 0 - 5 /HPF [facility] DEPARTMENT OF PATHOLOGY AND GENOMIC MEDICINE Bacteria, UA Few None seen [facility] DEPARTMENT OF PATHOLOGY AND GENOMIC MEDICINE Hyaline casts, UA 7 /LPF [facility] DEPARTMENT OF PATHOLOGY AND GENOMIC MEDICINE Yeast, UA None seen [facility] DEPARTMENT OF PATHOLOGY AND GENOMIC MEDICINE Yeast with pseudohyphae, UA None seen [facility] DEPARTMENT OF PATHOLOGY AND GENOMIC MEDICINE Specimen Urine - Urine, catheter Performing Organization Address [facility] Centercode Phone Number [facility] DEPARTMENT OF PATHOLOGY AND [address] [place] [address] GENOMIC MEDICINE XR Thoracic Spine 2 Vw [...] acute osseous abnormality of the thoracic spine. [id number] Procedure Note Hm Interface, Radiology Results Incoming [...] acute osseous abnormality of the thoracic spine. [id number] Performing Organization Address [facility] Centercode Phone Number [facility] [address] [place] [address] [place] Renal (01/15/2018 4:19 PM CDT) Narrative Performed At EXAMINATION:US RENAL, US RENAL TRANSPLANT DOPPLER [facility] CLINICAL HISTORY:Hematuriarenal parenchymal cause suspected, patient has hematuriawe need renal US of the kidney Tx to RO mass and also renal [facility] [place] kidneys to rule out mass TECHNIQUE: Sonographic images of both [place] kidneys and the left iliac fossa renal [...] end-stage renal disease. Small cyst lower pole [place] left kidney. Unremarkable left iliac fossa renal transplant with normal renal Doppler examination. [id number] Procedure Note [facility], Radiology Results Incoming - 01/15/2018 4:36 PM CDT EXAMINATION: US RENAL, US RENAL TRANSPLANT DOPPLER CLINICAL HISTORY: Hematuria renal parenchymal cause suspected, patient has hematuria we need renal US of the kidney Tx to RO mass and also renal [facility] [place] kidneys to rule out mass TECHNIQUE: Sonographic images of both [place] kidneys and the left iliac fossa renal [...] end-stage renal disease. Small cyst lower pole [place] left kidney. Unremarkable left iliac fossa renal transplant with normal renal Doppler examination. [id number] Performing Organization Address City/State/Zipcode Phone Number [facility] [address] [place] [address] [place] Renal Transplant Doppler (01/15/2018 4:12 PM CDT) Narrative Performed At EXAMINATION:US RENAL, US RENAL TRANSPLANT DOPPLER [facility] CLINICAL HISTORY:Hematuriarenal parenchymal cause suspected, patient has hematuriawe need renal US of the kidney Tx to RO mass and also renal [facility] [place] kidneys to rule out mass TECHNIQUE: Sonographic images of both [place] kidneys and the left iliac fossa renal [...] end-stage renal disease. Small cyst lower pole [place] left kidney. Unremarkable left iliac fossa renal transplant with normal renal Doppler examination. [id number] Procedure Note Interface, Radiology Results Incoming - 01/15/2018 4:36 PM CDT EXAMINATION: US RENAL, US RENAL TRANSPLANT DOPPLER CLINICAL HISTORY: Hematuria renal parenchymal cause suspected, patient has hematuria we need renal US of the kidney Tx to RO mass and also renal [facility] [place] kidneys to rule out mass TECHNIQUE: Sonographic images of both [place] kidneys and the left iliac fossa renal [...] end-stage renal disease. Small cyst lower pole [place] left kidney. Unremarkable left iliac fossa renal transplant with normal renal Doppler examination. [id number] Performing Organization Address City/State/Zipcode Phone Number [facility] [address] [place] [address] XR Chest 1 Vw Portable (01/15/2018 11:46 AM CDT) Narrative Performed At EXAMINATION:XR CHEST 1 VW PORTABLE [facility] CLINICAL HISTORY:Chest Pain COMPARISON:None. IMPRESSION: The lungs and pleural spaces are clear.The cardiomediastinal silhouette is within normal limits.There is no significant skeletal finding. [id number] Procedure Note Interface, Radiology Results Incoming - 01/15/2018 11:52 AM CDT EXAMINATION: XR CHEST 1 VW PORTABLE CLINICAL HISTORY: Chest Pain COMPARISON: None. IMPRESSION: The lungs and pleural spaces are clear. The cardiomediastinal silhouette is within normal limits. There is no significant skeletal finding. [id number] Performing Organization Address City/[facility]/Zipcode Phone Number [address] [address] Troponin (01/15/2018 11:21 AM CDT) Troponin <0.30 0.00 - 0.30 ng/mL [facility] DEPARTMENT OF PATHOLOGY Comment: AND [employer] MEDICINE 0.30 - 1.49 ng/mlMay indicate increased risk of acute coronary syndrome. >=1.5 ng/mlConsistent with acute myocardial infarction. The diagnostic value of a single normal or non-diagnostic result is questionable.Serial samples at 2-6 hour intervals are required to rule out acute myocardial injury. Specimen Plasma specimen Performing Organization Address [facility] Phone Number [facility] DEPARTMENT OF PATHOLOGY AND [address] [place] [address] [facility] Partial thromboplastin time, activated (01/15/2018 11:21 AM CDT) PTT 28.1 23.0 - 36.0 sec [facility] DEPARTMENT OF PATHOLOGY Comment: AND [employer] [facility] PTT therapeutic range for unfractionated heparin is 61.0-112.0 seconds which corresponds to Anti-Xa 0.3-0.7 U/ml. Specimen Blood Performing Organization Address [facility] Phone Number [facility] DEPARTMENT OF PATHOLOGY AND [address] [place] [phone] [facility] Prothrombin time with INR (01/15/2018 11:21 AM CDT) Prothrombin time 13.8 12.0 - 15.0 sec [facility] DEPARTMENT OF PATHOLOGY AND GENOMIC MEDICINE INR 1.0 [facility] DEPARTMENT OF Comment: PATHOLOGY AND GENOMIC The International Normalized Ratio (INR) is a therapeutic MEDICINE monitoring tool for patients who are stable on oral anticoagulant therapy. An INR of 2.0-3.0 is suggested for deep vein thrombosis/pulmonary embolism. Specimen Blood Performing Organization Address [facility]t Phone Number [facility] DEPARTMENT OF PATHOLOGY AND [address] [place] [phone] [facility] B natriuretic peptide (01/15/2018 11:21 AM CDT) BNP 4 0 - 100 pg/mL [facility] DEPARTMENT OF PATHOLOGY AND [employer] MEDICINE Specimen Blood Performing Organization Address [facility]/Zipcode Phone Number [facility] DEPARTMENT OF PATHOLOGY AND [address], [place] [phone] [place] [address] MEDICINE Lipase level (01/15/2018 11:21 AM CDT) Lipase 25 13 - 60 U/L [facility] DEPARTMENT OF PATHOLOGY AND GENOMIC [facility] Specimen Plasma specimen Performing Organization Address [facility] Phone Number [facility] DEPARTMENT OF PATHOLOGY AND [address], [place] [phone] [place] [address] [place] Gallbladder (01/15/2018 11:14 AM CDT) Narrative Performed At EXAMINATION:US GALLBLADDER [facility] CLINICAL HISTORY:Cholelithiasis COMPARISON:None. FINDINGS: Gallbladder: Gallbladder contains multiple stones. There is no wall thickening or pericholecystic fluid. CBD:5 mm , within normal limits. Portal vein: The portal vein demonstrates normal hepatopetal flow. The portal vein measures 7 mm. IMPRESSION: Cholelithiasis without sonographic evidence of cholecystitis. [id number] Procedure Note Hm Interface, Radiology Results Incoming - 01/15/2018 11:22 AM CDT EXAMINATION: US GALLBLADDER CLINICAL HISTORY: Cholelithiasis COMPARISON: None. FINDINGS: Gallbladder: Gallbladder contains multiple stones. There is no wall thickening or pericholecystic fluid. CBD: 5 mm , within normal limits. Portal vein: The portal vein demonstrates normal hepatopetal flow. The portal vein measures 7 mm. IMPRESSION: Cholelithiasis without sonographic evidence of cholecystitis. [id number] Performing Organization Address [facility] Phone Number [facility] [address] [place] [address] ECG 12 lead (01/15/2018 9:36 AM CDT) Ventricular rate 82 H MUSE Atrial rate 82 [facility] M[facility] VT interval 142 [facility] M[facility] QRSD interval 88 [facility] M[facility] QT interval 368 [facility] QTC interval 429 [facility] M[facility] P axis 1 75 [facility] M[facility] QRS axis 1 34 [facility] MUSE T wave axis 56 [facility] M[facility] EKG impression Normal sinus rhythm-Normal ECG-In automated [facility] M[facility] comparison with ECG of 10-OCT-2013 18:49,-No significant change was found- Performing Organization Address [facility] Centercode Phone Number [facility] [address] [place] [address] Urinalysis screen and microscopy, with reflex to culture (01/11/2018 9:40 AM CDT)Only the most recent of2 resultswithin the time period is included. Specimen site Clean catch [facility] DEPARTMENT OF PATHOLOGY AND GENOMIC MEDICINE Color, UA Yellow [facility] DEPARTMENT OF PATHOLOGY AND GENOMIC MEDICINE Appearance, UA Clear [facility] DEPARTMENT OF PATHOLOGY AND GENOMIC MEDICINE Specific gravity, UA 1.019 1.001 - 1.035 [facility] DEPARTMENT OF PATHOLOGY AND GENOMIC MEDICINE pH, UA 6.0 5.0 - 8.5 [facility] DEPARTMENT OF PATHOLOGY AND GENOMIC MEDICINE Protein, UA 3+ (A) Negative [facility] DEPARTMENT OF PATHOLOGY AND GENOMIC MEDICINE Glucose, UA Negative Negative [facility] DEPARTMENT OF PATHOLOGY AND GENOMIC MEDICINE Ketones, UA Negative Negative [facility] DEPARTMENT OF PATHOLOGY AND GENOMIC MEDICINE Bilirubin, UA Negative Negative [facility] DEPARTMENT OF PATHOLOGY AND GENOMIC MEDICINE Blood, UA Moderate (A) Negative [facility] DEPARTMENT OF PATHOLOGY AND GENOMIC MEDICINE Nitrite, UA Negative Negative [facility] DEPARTMENT OF PATHOLOGY AND GENOMIC MEDICINE Urobilinogen, UA 2.0 (A) <2.0 [facility] DEPARTMENT OF PATHOLOGY AND GENOMIC MEDICINE Leukocyte esterase, UA Negative Negative [facility] DEPARTMENT OF PATHOLOGY AND GENOMIC MEDICINE WBC, UA <1 0 - 1 /HPF [facility] DEPARTMENT OF PATHOLOGY AND GENOMIC MEDICINE RBC, UA 55 (H) 0 - 5 /HPF [facility] DEPARTMENT OF PATHOLOGY AND GENOMIC MEDICINE Bacteria, UA Few None seen [facility] DEPARTMENT OF PATHOLOGY AND GENOMIC MEDICINE Yeast, UA None seen [facility] DEPARTMENT OF PATHOLOGY AND GENOMIC MEDICINE Yeast with pseudohyphae, UA None seen [facility] DEPARTMENT OF PATHOLOGY AND GENOMIC MEDICINE Hyaline casts, UA 5 /LPF [facility] DEPARTMENT OF PATHOLOGY AND GENOMIC MEDICINE Specimen Urine Performing Organization Address City/[facility] Centercode Phone Number [facility] DEPARTMENT OF PATHOLOGY AND [address] [place] [phone] [employer] MEDICINE Protein, urine, random (01/11/2018 9:40 AM CDT)Only the most recent of2 resultswithin the time period is included. Protein, urine random 200 mg/dL [facility] DEPARTMENT OF PATHOLOGY AND GENOMIC MEDICINE Specimen Urine Performing Organization Address City/[facility] Cent[facility]ode Phone Number [facility] DEPARTMENT PATHOLOGY AND [address] [place] [phone] [facility] Creatinine level, urine, random (01/11/2018 9:40 AM CDT)Only the most recent of2 resultswithin the time period is included. Creatinine, urine, random 216 mg/dL [facility] DEPARTMENT OF PATHOLOGY AND GENOMIC MEDICINE Specimen Urine Performing Organization Address City/[facility] Cent[facility]ode Phone Number [facility] DEPARTMENT OF PATHOLOGY AND [address] [place] [address] Urine culture (01/11/2018 9:40 AM CDT)Only the most recent of2 resultswithin the time period is included. Urine culture SEE COMMENTComment: Bacteriuria [facility] DEPARTMENT OF PATHOLOGY screen negative. AND GENOMIC MEDICINE Performing Organization Address [facility] Phone Number [facility] DEPARTMENT OF PATHOLOGY AND [address] [place] [address] Uric acid level (01/11/2018 9:40 AM CDT)Only the most recent of2 resultswithin the time period is included. Uric acid 5.7 3.4 - 7.0 mg/dL [facility] DEPARTMENT OF PATHOLOGY AND GENOMIC MEDICINE Specimen Plasma specimen Performing Organization Address [facility] Phone Number [facility] DEPARTMENT OF PATHOLOGY AND [address] [place] [address] MEDICINE LDH (01/11/2018 9:40 AM CDT)Only the most recent of2 resultswithin the time period is included. LDH 160 87 - 225 U/L [facility] DEPARTMENT OF PATHOLOGY AND GENOMIC MEDICINE Specimen Plasma specimen Performing Organization Address [facility] Phone Number [facility] DEPARTMENT OF PATHOLOGY AND [address] [place] [address] Estimated GFR (09/28/2017 8:05 AM CDT) GFR Non Af Amer 70 mL/min/1.73 m2 [facility] DEPARTMENT OF PATHOLOGY AND GENOMIC MEDICINE GFR Af Amer 85 mL/min/1.73 m2 [facility] DEPARTMENT OF Comment: PATHOLOGY AND GENOMIC Chronic [...] specimen Performing Organization Address City/State/Zipcode Phone Number [facility] DEPARTMENT OF PATHOLOGY AND [address] [place] [address] [employer] FK506 level (09/28/2017 8:05 AM CDT) FK506 level <2.0 ng/mL [facility] DEPARTMENT OF PATHOLOGY Comment: AND GENOMIC MEDICINE Therapeutic range 5-20 ng/mL for 12 hour trough. The range varies depending on the organ transplanted, time after transplantation and co-administered immunosuppressant therapies. Please use clinical judgment to interpret test result. Test performed using [employer] chemiluminescent microparticle immunoassay for Tacrolimus on the CITY ASSESSOR i System. Specimen Blood Performing Organization Address City[facility] Phone Number [facility] DEPARTMENT OF PATHOLOGY AND [address] [place] [address] [employer] after 05/22/2017 Insurance Payer Benefit Plan / Group Subscriber ID Type Phone Address MEDICARE MEDICARE PART A AND B xxxxxxxxxx Medicare [place], [place]
--- OUTSIDE RECORDS SUMMARY | 2018-05-23 14:49 | XMS REPORT | Clinical Summary ---
:1965 Author Organization [facility] Address [address] [place] [id number] Care Team Providers Name Role Phone Terrence [...] Not on file Results Not on fileafter 05/22/2017 Insurance Payer Benefit Plan / Group Subscriber ID Type Phone Address [employer] [facility]
--- NOTE | 2018-05-23 16:15 | RAD REPORT ---
EXAM DESCRIPTION: RAD - Chest Pa And Lat (2 Views) - 05/23/2018 3:53 pm CLINICAL HISTORY: Cough, abdominal pain COMPARISON: January 2018 TECHNIQUE: PA and lateral views of the chest were obtained. FINDINGS: The lungs are clear of a focal lung parenchymal process. Prominent interstitial pattern is similar to comparison. Heart size is normal and central vasculature is within normal limits. No p leural effusion or pneumothorax seen. No acute bony finding noted. No aortic abnormality. IMPRESSION: No acute cardiopulmonary process. Prominent interstitial pattern is similar to January 2018 comparison.
[2018-05-23 17:59] LABS: Absolute Lymphocytes (CBC) 2.8 K/uL (0.7-4.9); Absolute Monocytes 0.7 K/uL (0.1-1.3); Absolute Neutrophil 4.2 K/uL (1.8-8.0); Basophils % 0.9 % (0-1.3); Eosinophils % 5.3 % (0-4.4); Hematocrit 39.5 % (39.6-49.0); Lymphocytes % 34.1 % (15.3-44.8); MPV 7.4 fL (7.6-11.3); Monocytes % 8.4 % (3.3-12.3); RBC Red Blood Cell Count 4.26 M/uL (4.33-5.43)
[2018-05-23 18:00] LABS: Protime INR 0.96
[2018-05-23 18:17] LABS: ALT/SGPT 21 U/L (12-78); AST/SGOT 18 U/L (15-37); Albumin 3.4 g/dL (3.4-5.0); Alkaline Phosphatase 71 U/L (45-117); BUN Blood Urea Nitrogen 15 mg/dL (7-18); Bicarbonate 32 mmol/L (21-32); Bilirubin Direct 0.1 mg/dL (0-0.2); Bilirubin Total 0.5 mg/dL (0.2-1.0); Glucose Level 115 mg/dL (74-106); Magnesium 2.2 mg/dL (1.8-2.4); NT PRO-BNP 68 pg/mL (<125); Potassium 3.5 mmol/L (3.5-5.1); Protein, Total 6.9 g/dL (6.4-8.2); Sodium Level 140 mmol/L (136-145); Troponin (Emerg Dept Use Only) < 0.02 ng/mL (0.0-0.045)
[2018-05-23] MEDS ORDERED: TRAMADOL HCL 50 MG TAB ONE (18:57)
--- NOTE | 2018-05-23 19:56 | ER ---
Nurse's Notes [facility] Name: Shoaib Freitas Jr Age: 53 yrs Sex: Male : 1965 Arrival Date: 05/23/2018 Time: 14:10 Bed 24 Private MD: out of town, doctor Diagnosis: Chest pain, unspecified;Generalized abdominal pain Presentation: 05/23 14:33 Presenting complaint: Patient states: Upper abdominal pain, left upper chest pain, hb upper back pain, and nonproductive cough x 3 days. Transition of care: patient was not received from another setting of care. Onset of symptoms was May 20, 2018. Risk Assessment: Do you want to hurt yourself or someone else? Patient reports no desire to harm self or others. Care prior to arrival: None. 14:33 Method Of Arrival: Ambulatory hb 14:33 Acuity: COBY 3 hb 19:57 Initial Sepsis Screen: Does the patient meet any 2 criteria? No. Patient's initial la1 sepsis screen is negative. Does the patient have a suspected source of infection? No. Patient's initial sepsis screen is negative. Historical: - Allergies: 14:35 No Known Allergies; hb - PMHx: 18:10 Gall Stones; Hypertension; Pancreatitis; kidney transplant; history of dialysis; la1 - Immunization history:: Adult Immunizations up to date. - Social history:: Smoking status: Patient/guardian denies using tobacco. - Ebola Screening: : No symptoms or risks identified at this time. Screenin:09 Abuse screen: Denies threats or abuse. Abuse screen: Denies threats or abuse. la1 Nutritional screening: On. Tuberculosis screening: No symptoms or risk factors identified. Fall Risk None identified. Assessment: 18:09 General: Appears in no apparent distress. Behavior is calm, cooperative. Pain: la1 Complains of pain in left low back, right low back and chest. Neuro: Level of Consciousness is awake, alert, obeys commands, Oriented to person, place, time, situation. Cardiovascular: Capillary refill < 3 seconds Patient's skin is warm and dry. Respiratory: Airway is patent Respiratory effort is even, unlabored, Respiratory pattern is regular, symmetrical, Breath sounds are clear bilaterally. GI: Abdomen is round non-distended, Bowel sounds present X 4 quads. Abd is soft X 4 quads. : No signs and/or symptoms were reported regarding the genitourinary system. 19:19 Reassessment: Patient appears in no apparent distress at this time. No changes from la1 previously documented assessment. Patient and/or family updated on plan of care and expected duration. Pain level reassessed. Patient is alert, oriented x 3, equal unlabored respirations, skin warm/dry/pink. Vital Signs: 14:34 BP 138 / 100; Pulse 79; Resp 16; Temp 98.4; Pulse Ox 100% on R/A; Pain 8/10; hb 19:43 BP 145 / 98; Pulse 63; Resp 16; Temp 97.7; Pulse Ox 100% ; lt1 ED Course: 14:10 Patient arrived in ED. sb2 14:11 out of town, doctor is Private Physician. sb2 14:34 Triage completed. hb 14:34 Arm band placed on. hb 15:47 X-ray completed. Portable x-ray completed in exam room. Patient tolerated procedure sg4 well. 15:51 Chest Pa And Lat (2 Views) XRAY In Process Unspecified. EDMS 16:37 Ltaesha Zhao F[facility]-C [facility]. kb 16:37 Sebas Stephenson MD is Attending Physician. kb 16:57 Vincenzo Zapata RN is Primary Nurse. la1 18:10 Bed in low position. Call light in reach. la1 18:10 Inserted saline lock: 18 gauge in left antecubital area, using aseptic technique. Blood la1 collected. 19:56 No provider procedures requiring assistance completed. IV discontinued, intact, la1 bleeding controlled, No redness/swelling at site. Pressure dressing applied. Administered Medications: 18:51 Drug: traMADol 50 mg Route: PO; la1 19:21 Follow up: Response: No adverse reaction; Pain is decreased la1 Outcome: 19:56 Discharge ordered by . kb 19:57 Discharged to home ambulatory. la1 19:57 Condition: stable 19:57 Discharge instructions given to patient, Instructed on discharge instructions, follow up and referral plans. medication usage, Demonstrated understanding of instructions, follow-up care, medications. 20:20 Patient left the ED. la1 Signatures: Dispatcher [employer] EDDC Latesha Zhao FNP-C FNP-Vincnezo Gaston RN RN la1 Annie Mcintyre RN RN Deepali Jordan sb2 Clarisse Heard sg4 Petersen, Tamiko lt1
--- NOTE | 2018-05-23 19:56 | EDPHYS ---
Physician Documentation [facility] Name: Shoaib Freitas Jr Age: 53 yrs Sex: Male : 1965 Arrival Date: 05/23/2018 Time: 14:10 Bed 24 Private MD: out of town, doctor ED Physician Sebas Stephenson HPI: 05/23 18:00 This 53 yrs old Black Male presents to ER via Ambulatory with complaints of Painful kb Cough, Abdominal Pain. 18:00 The patient or guardian reports cough, that is intermittent, described as moderate, kb with no sputum. Onset: The symptoms/episode began/occurred 7 day(s) ago. Severity of symptoms: At their worst the symptoms were moderate, in the emergency department the symptoms are unchanged. Modifying factors: The symptoms are alleviated by nothing, the symptoms are aggravated by nothing. Associated signs and symptoms: Pertinent positives: chest pain, Pertinent negatives: diarrhea, ear ache, fever, nausea, rhinorrhea, sore throat, vomiting. The patient has not experienced similar symptoms in the past. The patient has not recently seen a physician. Pt reports abd pain, chest pain, back pain and cough since [place]ing from [place] 7 [place] ago. Historical: - Allergies: 14:35 No Known Allergies; hb - PMHx: 18:10 Gall Stones; Hypertension; Pancreatitis; kidney transplant; history of dialysis; la1 - Immunization history:: Adult Immunizations up to date. - Social history:: Smoking status: Patient/guardian denies using tobacco. - Ebola Screening: : No symptoms or risks identified at this time. ROS: 17:59 Constitutional: Negative for fever, chills, and weight loss, ENT: Negative for injury, kb pain, and discharge, Neck: Negative for injury, pain, and swelling, Back: Negative for injury and pain, : Negative for injury, bleeding, discharge, and swelling, MS/Extremity: Negative for injury and deformity, Skin: Negative for injury, rash, and discoloration, Neuro: Negative for headache, weakness, numbness, tingling, and seizure. 17:59 Cardiovascular: Positive for chest pain, Negative for edema, orthopnea, palpitations, paroxysmal nocturnal dyspnea. 17:59 Respiratory: Positive for cough, Negative for dyspnea on exertion, hemoptysis, orthopnea, pleurisy, shortness of breath, sputum production, wheezing. 17:59 Abdomen/GI: Positive for abdominal pain, Negative for nausea, vomiting, and diarrhea, constipation, abdominal cramps, abdominal distension, anorexia. Exam: 17:59 Constitutional: This is a well developed, well nourished patient who is awake, alert, kb and in no acute distress. Head/Face: Normocephalic, atraumatic. ENT: Nares patent. No nasal discharge, no septal abnormalities noted. Tympanic membranes are normal and external auditory canals are clear. Oropharynx with no redness, swelling, or masses, exudates, or evidence of obstruction, uvula midline. Mucous membranes moist. Neck: Trachea midline, no thyromegaly or masses palpated, and no cervical lymphadenopathy. Supple, full range of motion without nuchal rigidity, or vertebral point tenderness. No Meningismus. Chest/axilla: Normal chest wall appearance and motion. Nontender with no deformity. No lesions are appreciated. Cardiovascular: Regular rate and rhythm with a normal S1 and S2. No gallops, murmurs, or rubs. Normal PMI, no JVD. No pulse deficits. Respiratory: Lungs have equal breath sounds bilaterally, clear to auscultation and percussion. No rales, rhonchi or wheezes noted. No increased work of breathing, no retractions or nasal flaring. Abdomen/GI: Soft, non-tender, with normal bowel sounds. No distension or tympany. No guarding or rebound. No evidence of tenderness throughout. Skin: Warm, dry with normal turgor. Normal color with no rashes, no lesions, and no evidence of cellulitis. MS/ Extremity: Pulses equal, no cyanosis. Neurovascular intact. Full, normal range of motion. Neuro: Awake and alert, GCS 15, oriented to person, place, time, and situation. Cranial nerves II-XII grossly intact. Motor strength 5/5 in all extremities. Sensory grossly intact. Cerebellar exam normal. Normal gait. Vital Signs: 14:34 BP 138 / 100; Pulse 79; Resp 16; Temp 98.4; Pulse Ox 100% on R/A; Pain 8/10; hb 19:43 BP 145 / 98; Pulse 63; Resp 16; Temp 97.7; Pulse Ox 100% ; lt1 MDM: 16:37 Patient medically screened. kb 17:59 Data reviewed: vital signs, nurses notes. Data interpreted: Pulse oximetry: on room air kb is 100 %. Interpretation: normal. 19:55 Counseling: I had a detailed discussion with the patient and/or guardian regarding: the kb historical points, exam findings, and any diagnostic results supporting the discharge/admit diagnosis, lab results, radiology results, the need for outpatient follow up, a family practitioner, to return to the emergency department if symptoms worsen or persist or if there are any questions or concerns that arise at home. 05/23 16:54 Order name: Basic Metabolic Panel; Complete Time: 18:22 kb 05/23 16:54 Order name: CBC with Diff; Complete Time: 18:03 kb 05/23 16:54 Order name: LFT's; Complete Time: 18:22 kb 05/23 16:54 Order name: Magnesium; Complete Time: 18:22 kb 05/23 16:54 Order name: NT PRO-BNP; Complete Time: 18:22 kb 05/23 16:54 Order name: PT-INR; Complete Time: 18:03 kb 05/23 15:24 Order name: Chest Pa And Lat (2 Views) XRAY; Complete Time: 16:37 snw 05/23 15:24 Order name: EKG; Complete Time: 15:26 snw 05/23 15:24 Order name: EKG - Nurse/Tech; Complete Time: 18:11 snw 05/23 16:54 Order name: Troponin (emerg Dept Use Only); Complete Time: 18:22 kb 05/23 16:54 Order name: Cardiac monitoring; Complete Time: 18:11 kb 05/23 19:21 Order name: Troponin (emerg Dept Use Only); Complete Time: 19:55 la1 05/23 19:26 Order name: EKG; Complete Time: 19:27 kb 05/23 16:54 Order name: IV Saline Lock; Complete Time: 18:11 kb 05/23 16:54 Order name: Labs collected and sent; Complete Time: 18:11 kb 05/23 16:54 Order name: O2 Per Protocol; Complete Time: 18:11 kb 05/23 16:54 Order name: O2 Sat Monitoring; Complete Time: 18:11 kb 05/23 19:26 Order name: EKG - Nurse/Tech; Complete Time: 19:55 kb Administered Medications: 18:51 Drug: traMADol 50 mg Route: PO; la1 19:21 Follow up: Response: No adverse reaction; Pain is decreased la1 Disposition: 05/23/18 19:56 Discharged to Home. Impression: Chest pain, unspecified, Generalized abdominal pain. - Condition is Stable. - Discharge Instructions: Abdominal Pain, Adult, [id number], Nonspecific Chest Pain, [id number]. - Prescriptions for Tramadol 50 mg Oral Tablet - take 1 tablet by ORAL route every 8 hours as needed; 12 tablet. - Work release form, Medication Reconciliation Form, Thank You Letter, Antibiotic Education, Prescription Opioid Use form. - Follow up: Emergency Department; When: As needed; Reason: Worsening of condition. Follow up: Private Physician; When: 2 - 3 days; Reason: Recheck today's complaints, Continuance of care, Re-evaluation by your physician. Addendum: 05/25/2018 07:10 Co-signature as Attending Physician, Sebas Stephenson MD. r n Signatures: Dispatcher [employer] EDMS Latesha Zhao, TECHNICAL WRITING LEAD/MGR-C TECHNICAL WRITING LEAD/MGR-Ckb Maeve Mcclendon FNP-C TECHNICAL WRITING LEAD/MGR-Csnw Sebas Stephenson MD MD rn Attema, Lee, RN RN la1 Annie Mcintyre RN RN Corrections: (The following items were deleted from the chart) 05/23 20:20 19:56 05/23/2018 19:56 Discharged to Home. Impression: Chest pain, unspecified; la1 Generalized abdominal pain. Condition is Stable. Forms are Medication Reconciliation Form, Thank You Letter, Antibiotic Education, Prescription Opioid Use. Follow up: Emergency Department; When: As needed; Reason: Worsening of condition. Follow up: Private Physician; When: 2 - 3 days; Reason: Recheck today's complaints, Continuance of care, Re-evaluation by your physician. kb
[2018-05-23 20:43] VITALS: O2SAT 100
[2018-05-23 20:45] VITALS: BP 145/98; TEMP 97.7
--- NOTE | 2018-05-24 07:21 | EKG ---
Test Date: 2018-05-23 Test Time: 19:35:39 Power Superintendent: LMT MEASUREMENT RESULTS: Intervals: Rate: 64 MO: 142 QRSD: 110 QT: 408 QTc: 420 [place]: P: 43 MO: 142 QRS: 30 T: 37 INTERPRETIVE STATEMENTS: Normal sinus rhythm Normal ECG Compared to ECG 05/23/2018 16:42:43 No significant changes Electronically Signed On 05-24-18 07:20:38 SYNOPTIC METEOROLOGIST by Karson Thomas
--- NOTE | 2018-05-24 07:21 | EKG ---
Test Date: 2018-05-23 Test Time: 16:42:43 Ticket Collector: LAXMIT MEASUREMENT RESULTS: Intervals: Rate: 66 [place]: 146 QRSD: 114 QT: 412 QTc: 431 [place]: P: 37 [place]: 146 QRS: 43 T: 46 INTERPRETIVE STATEMENTS: Normal sinus rhythm Normal ECG Compared to ECG 01/13/2018 09:23:43 No significant changes Electronically Signed On 05-24-18 07:20:48 MARINE FITTER by Karson Thomas
== END 2018-05-23 20:20 | disposition home or self-care (01) ==
LOC: ER 14:07
DX: R07.9 Chest pain, unspecified (principal); R10.84 Generalized abdominal pain; Z94.0 Kidney transplant status
CPT/HCPCS: 36415; 71046; 80048; 80076; 83735; 83880; 84484; 85025; 85610; 93005; 99284

== ENCOUNTER 2018-09-15 03:42 | Emergency (ER) | payer OTHER ==
--- OUTSIDE RECORDS SUMMARY | 2018-09-15 03:46 | XMS REPORT | Clinical Summary ---
:1965 Author Organization [facility] Address [address] [place] [address] Care Team Providers Name Role Phone Juan [...] Encounters Date Type Specialty Care Team Description 07/19/2018 Lab Lab Usha Stone Kidney replaced by transplant (Primary Dx); MD Jean Paul Anemia of chronic renal failure, unspecified CKD stage; Hypermagnesemia; Proteinuria, unspecified type; Chronic kidney disease, stage III (moderate) (HCC); Disorder of phosphorus metabolism 07/12/2018 Lab Lab Usha Stone Canceled (Scheduling MD Jean Paul Error) 01/16/2018 Anesthesia Event General Surgery Dominick Dumont MD 01/16/2018 Surgery General Surgery Cindy Diamond MD CHOLECYSTECTOMY AND INTRAOPERATIVE CHOLANGIOGRAM 01/16/2018 Documentation Nephrology Daniela Chou MD 01/15/2018 - Hospital Encounter General Surgery Antonieta Mark-Te Biliary calculus of other site without obstruction [...] III (moderate); Disorder of phosphorus metabolism after 09/14/2017 Social History Tobacco Use Types Packs/Day Years [...] Comments COLON CANCER SCREENING 02/28/2016 SHINGLES VACCINES (#1) 02/28/2016 INFLUENZA VACCINE 11/11/2018 Procedures Procedure Name Priority Date/Time Associated Comments Diagnosis ESTIMATED GFR Routine 07/19/2018 9:00 Results for this AM CDT procedure are in the results section. CYCLOSPORINE LEVEL, Routine 07/19/2018 9:00 Kidney replaced by Results for this RANDOM AM CDT transplant procedure are in Anemia of chronic the results renal failure, section. unspecified CKD stage Hypermagnesemia Proteinuria, unspecified type Chronic kidney disease, stage III (moderate) (HCC) Disorder of phosphorus metabolism COMPREHENSIVE Routine 07/19/2018 9:00 Kidney replaced by Results for this METABOLIC PANEL AM CDT transplant procedure are in Anemia of chronic the results renal failure, section. unspecified CKD stage Hypermagnesemia Proteinuria, unspecified type Chronic kidney disease, stage III (moderate) (HCC) Disorder of phosphorus metabolism CREATININE LEVEL, Routine 07/19/2018 9:00 Kidney replaced by Results for this URINE, RANDOM AM CDT transplant procedure are in Anemia of chronic the results renal failure, section. unspecified CKD stage Hypermagnesemia Proteinuria, unspecified type Chronic kidney disease, stage III (moderate) (HCC) Disorder of phosphorus metabolism PROTEIN, URINE, RANDOM Routine 07/19/2018 9:00 Kidney replaced by Results for this AM CDT transplant procedure are in Anemia of chronic the results renal failure, section. unspecified CKD stage Hypermagnesemia Proteinuria, unspecified type Chronic kidney disease, stage III (moderate) (HCC) Disorder of phosphorus metabolism URINALYSIS SCREEN AND Routine 07/19/2018 9:00 Kidney replaced by Results for this MICROSCOPY, WITH AM CDT transplant procedure are in REFLEX TO CULTURE Anemia of chronic the results renal failure, section. unspecified CKD stage Hypermagnesemia Proteinuria, unspecified type Chronic kidney disease, stage III (moderate) (HCC) Disorder of phosphorus metabolism LDH Routine 07/19/2018 9:00 Kidney replaced by Results for this AM CDT transplant procedure are in Anemia of chronic the results renal failure, section. unspecified CKD stage Hypermagnesemia Proteinuria, unspecified type Chronic kidney disease, stage III (moderate) (HCC) Disorder of phosphorus metabolism URIC ACID LEVEL Routine 07/19/2018 9:00 Kidney replaced by Results for this AM CDT transplant procedure are in Anemia of chronic the results renal failure, section. unspecified CKD stage Hypermagnesemia Proteinuria, unspecified type Chronic kidney disease, stage III (moderate) (HCC) Disorder of phosphorus metabolism PHOSPHORUS LEVEL Routine 07/19/2018 9:00 Kidney replaced by Results for this AM CDT transplant procedure are in Anemia of chronic the results renal failure, section. unspecified CKD stage Hypermagnesemia Proteinuria, unspecified type Chronic kidney disease, stage III (moderate) (HCC) Disorder of phosphorus metabolism MAGNESIUM LEVEL Routine 07/19/2018 9:00 Kidney replaced by Results for this AM CDT transplant procedure are in Anemia of chronic the results renal failure, section. unspecified CKD stage Hypermagnesemia Proteinuria, unspecified type Chronic kidney disease, stage III (moderate) (HCC) Disorder of phosphorus metabolism HC COMPLETE BLD COUNT Routine 07/19/2018 9:00 Kidney replaced by Results for this W/AUTO DIFF AM CDT transplant procedure are in Anemia of chronic the results renal failure, section. unspecified CKD stage Hypermagnesemia Proteinuria, unspecified type Chronic kidney disease, stage III (moderate) (HCC) Disorder of phosphorus metabolism URINE CULTURE Routine 07/19/2018 9:00 Results for this AM CDT procedure are in the results section. ESTIMATED GFR Routine 01/19/2018 4:00 Results for [...] CDT procedure are in the results section. ND AN ELECTIVE Routine 01/16/2018 2:08 ENDOTRACHEAL AIRWAY PM CDT Procedure Note - Ethan Beckman CRNA - 01/16/2018 2:08 PM CDT Airway Date/Time: 01/16/2018 1:41 AM Performed by: ETHAN BECKMAN Authorized by: DOMINICK DUMONT Location: OR Urgency: Elective Performed by: resident/SPORTS MARKETING COORDINATOR/AA Preoxygenated with 100% O2: Yes C-spine Precautions [...] procedure are in the results section. CYCLOSPORINE LEVEL, Routine 01/16/2018 Results for RANDOM 6:00 AM CDT this procedure are in [...] procedure are in the results section. CYCLOSPORINE LEVEL, Routine 01/11/2018 Kidney replaced by transplant [...] procedure are in the results section. FK506 TACROLIMUS Routine 09/28/2017 Kidney replaced by transplant Results for LEVEL, RANDOM 8:05 AM CDT Anemia of chronic [...] procedure are in the results section. after 09/14/2017 Results Urinalysis screen and microscopy, with reflex to culture (07/19/2018 9:00 AM CDT)Only the most recent of3 resultswithin the time period is included. Specimen site Clean catch Color, UA Yellow Appearance, UA Clear Specific gravity, 1.021 1.001 - 1.035 [facility] pH, UA 5.0 5.0 - 8.5 Protein, UA 2+ (A) Negative Glucose, UA Negative Negative Ketones, UA Negative Negative Bilirubin, UA Negative Negative Blood, UA Moderate (A) Negative Nitrite, UA Negative Negative Urobilinogen, UA <2.0 <2.0 Leukocyte esterase, Negative Negative [facility] WBC, UA 1 0 - 1 /HPF RBC, UA 2 0 - 5 /HPF Bacteria, UA Few None seen Yeast, UA None seen Yeast with None seen [facility] pseudohyphae, [facility] Hyaline casts, UA 4 /LPF Specimen Urine Performing Organization Address City/State/Zipcode Phone Number [facility] DEPARTMENT OF PATHOLOGY AND [address] [place] [phone] [facility]OMIC MEDICINE [address] [address] Estimated GFR (07/19/2018 9:00 AM CDT)Only the most recent of7 resultswithin the time period is included. Estimated GFR 82 mL/min/1.73 [facility] Comment: m2 HOSPITAL CatergoryUnitsInterpretation G1 >=90 Normal or high G2 60-89Mildly decreased A6h12-50Hzxyql to moderately decreased G7g60-48Obcowfuzdt to severely decreased G4 15-29Severely decreased G5 <15Kidney failure The eGFR was calculated using the Chronic Kidney Disease Epidemiology Collaboration (CKD-EPI) equation. Interpretation is based on recommendations of the National Kidney Foundation-Kidney Disease Outcomes Quality Initiative (NKF-KDOQI) published in 2014. Specimen Plasma specimen Performing Organization Address City/[facility] Phone Number [facility] DEPARTMENT OF PATHOLOGY AND [address] [place] [phone] Cyclosporine level, random (07/19/2018 9:00 AM CDT)Only the most recent of3 resultswithin the time period is included. Cyclosporine 418 ng/mL [facility] Comment: HOSPITAL Unless administered by continuous IV drip, collect a purple top tube just before the next dose. Therapeutic range of approximately 100-500 varies mainly with type of transplant, use of other immunosuppressive agents, and evidence of toxicity or rejection. Test performed using [employer] chemiluminescent microparticle immunoassay for Cyclosporine on the MANUFACTURER AGENT i System. Specimen Blood Performing Organization Address [facility] Phone Number [facility] DEPARTMENT OF PATHOLOGY AND [address] [place] [phone] Protein, urine, random (07/19/2018 9:00 AM CDT)Only the most recent of3 resultswithin the time period is included. Protein, urine random 181 mg/dL Specimen Urine Performing Organization Address [facility] Phone Number [facility] DEPARTMENT OF PATHOLOGY AND [address] [place] [id number] [place] [phone] Creatinine level, urine, random (07/19/2018 9:00 AM CDT)Only the most recent of3 resultswithin the time period is included. Creatinine, urine, 197 mg/dL [facility] Specimen Urine Performing Organization Address [facility]/Zipcode Phone Number [facility] DEPARTMENT OF PATHOLOGY AND [address] [place] [phone] CBC with platelet and differential (07/19/2018 9:00 AM CDT)Only the most recent of7 resultswithin the time period is included. WBC 9.62 4.50 - 11.00 [facility] k/uL HOSPITAL RBC 4.42 4.40 - 6.00 [facility] m/uL HOSPITAL HGB 14.0 14.0 - 18.0 [facility] g/dL [facility] HCT 42.4 41.0 - 51.0 % MCV 95.9 82.0 - 100.0 [facility] MCH 31.7 27.0 - 34.0 pg MCHC 33.0 31.0 - 37.0 [facility] g/dL [facility] RDW - SD 41.3 37.0 - 55.0 fL MPV 9.3 8.8 - 13.2 fL Platelet count 284 150 - 400 k/uL Nucleated RBC 0.00 /100 WBC Neutrophils 57.6 39.0 - 69.0 % Lymphocytes 28.9 25.0 - 45.0 % Monocytes 8.9 0.0 - 10.0 % Eosinophils 3.4 0.0 - 5.0 % Basophils 0.8 0.0 - 1.0 % Immature granulocytes 0.4Comment: 0.0 - 1.0 % [facility] "[facility] granulocytes" (promyelocytes , myelocytes, metamyelocytes ) Specimen Blood Performing Organization Address City/[facility]ode Phone Number [facility] DEPARTMENT OF PATHOLOGY AND [address] [place] [phone] Urine culture (07/19/2018 9:00 AM CDT)Only the most recent of3 resultswithin the time period is included. Urine culture SEE COMMENTComment: [facility] Bacteriuria screen HOSPITAL negative. Specimen Performing Organization Address City/[facility]ode Phone Number [facility] DEPARTMENT OF PATHOLOGY AND [address] [place] [phone] Uric acid level (07/19/2018 9:00 AM CDT)Only the most recent of3 resultswithin the time period is included. Uric acid 6.1 3.4 - 7.0 mg/dL Specimen Plasma specimen Performing Organization Address City/[facility] Phone Number [facility] DEPARTMENT OF PATHOLOGY AND [address] [place] [phone] [place] [phone] Phosphorus level (07/19/2018 9:00 AM CDT)Only the most recent of5 resultswithin the time period is included. Phosphorus 2.1 (L) 2.4 - 4.5 mg/dL Specimen Plasma specimen Performing Organization Address City/[facility] Phone Number [facility] DEPARTMENT OF PATHOLOGY AND [address] [place] [phone] Magnesium level (07/19/2018 9:00 AM CDT)Only the most recent of5 resultswithin the time period is included. Magnesium 1.8 1.6 - 2.6 mg/dL Specimen Plasma specimen Performing Organization Address [facility] Phone Number [facility] DEPARTMENT OF PATHOLOGY AND [address] [place] [phone] LDH (07/19/2018 9:00 AM CDT)Only the most recent of3 resultswithin the time period is included. LDH 160 87 - 225 U/L Specimen Plasma specimen Performing Organization Address [facility] Phone Number [facility] DEPARTMENT OF PATHOLOGY AND [address] [place] [address] Comprehensive metabolic panel (07/19/2018 9:00 AM CDT)Only the most recent of5 resultswithin the time period is included. Sodium 138 135 - 148 [facility] mEq/L [facility] Potassium 4.3 3.5 - 5.0 [facility] mEq/L [facility] Chloride 103 98 - 112 mEq/L CO2 26 24 - 31 mEq/L Anion gap 9@ANIO 7 - 15 mEq/L BUN 15 6 - 20 mg/dL Creatinine 1.18 0.70 - 1.20 [facility] mg/dL [facility] Glucose 106 (H) 65 - 99 mg/dL Calcium 10.2 8.3 - 10.2 [facility] mg/dL HOSPITAL Protein 7.6 6.3 - 8.3 g/dL [facility] Comment: HOSPITAL [place] 4.6-7.0 g/dL 1 week 4.4-7.6 g/dL 7 months-1year5.1-7.3 g/dL 1-2 years5.6-7.5 g/dL >3 years6.0-8.0 g/dL 18-150 6.3-8.3 g/dL Albumin 3.6 3.5 - 5.0 g/dL A/G ratio 0.9 0.7 - 3.8 Alkaline phosphatase 84 40 - 129 U/L AST 21 10 - 50 U/L ALT 24 5 - 50 U/L Total bilirubin 0.5 0.0 - 1.2 [facility] mg/dL [facility] Specimen Plasma specimen Performing Organization Address City/[facility] Phone Number [facility] DEPARTMENT OF PATHOLOGY AND [address] [place] [address] Basic metabolic panel (01/19/2018 4:00 AM CDT)Only the most recent of3 resultswithin the time period is included. Sodium 137 135 - 148 mEq/L [facility] DEPARTMENT OF PATHOLOGY AND GENOMIC MEDICINE Potassium 3.8 3.5 - 5.0 mEq/L [facility] DEPARTMENT OF PATHOLOGY AND GENOMIC MEDICINE Chloride 101 98 - 112 mEq/L [facility] DEPARTMENT OF PATHOLOGY AND GENOMIC MEDICINE CO2 27 24 - 31 mEq/L [facility] DEPARTMENT OF PATHOLOGY AND GENOMIC MEDICINE Anion gap 9@ANIO 7 - 15 mEq/L [facility] DEPARTMENT OF PATHOLOGY AND GENOMIC MEDICINE BUN 14 6 - 20 mg/dL [facility] DEPARTMENT OF PATHOLOGY AND GENOMIC MEDICINE Creatinine 1.03 0.70 - 1.20 mg/dL [facility] DEPARTMENT OF PATHOLOGY AND GENOMIC MEDICINE Glucose 91 65 - 99 mg/dL [facility] DEPARTMENT OF PATHOLOGY AND GENOMIC MEDICINE Calcium 9.6 8.3 - 10.2 mg/dL [facility] DEPARTMENT OF PATHOLOGY AND GENOMIC MEDICINE Specimen Plasma specimen Performing Organization Address City/[facility] Phone Number [facility] DEPARTMENT OF PATHOLOGY AND [address] [place] [address] [place] < 1 Hour (01/16/2018 3:20 PM CDT) Specimen Narrative Performed At IMPRESSION: C-arm fluoroscopy under one hour was provided in the OR for [facility] the referring physician. A radiologist was not present during the procedure. Refer to the Operative report issued by the performing provider for procedure details. Location: D[facility]01 Procedure: CHOLANGIOGRAM Start: 1445 End: 1515 Fluoro Time: 9S Dose: 6.58 mGy Tech: [id number] Procedure Note Hm Interface, Radiology Results Incoming - 01/18/2018 12:05 [...] mGy Tech: [id number] Performing Organization Address City/[facility] [place] [address] Surgical pathology request (01/16/2018 8:46 AM CDT) [facility] DEPARTMENT OF PATHOLOGY AND GENOMIC MEDICINE Surgical pathology See link below [facility] DEPARTMENT OF report for PDF Lab PATHOLOGY AND Report GENOMIC MEDICINE Result status This is Final [facility] DEPARTMENT OF Report for PATHOLOGY AND [id number] GENOMIC MEDICINE Specimen Performing Organization Address City/[facility] Phone Number [facility] DEPARTMENT OF PATHOLOGY AND [address] [place] [address] GENOMIC MEDICINE Urinalysis, automated with microscopy (01/15/2018 6:50 PM CDT) Color, UA Yellow [facility] DEPARTMENT OF PATHOLOGY AND GENOMIC MEDICINE Appearance, UA Clear [facility] DEPARTMENT OF PATHOLOGY AND GENOMIC MEDICINE Specific gravity, UA 1.028 1.001 - 1.035 [facility] DEPARTMENT OF PATHOLOGY AND GENOMIC MEDICINE pH, UA 5.0 5.0 - 8.5 [facility] DEPARTMENT OF PATHOLOGY AND GENOMIC MEDICINE Protein, UA 3+ (A) Negative [facility] DEPARTMENT OF PATHOLOGY AND GENOMIC MEDICINE Glucose, UA Negative Negative [facility] DEPARTMENT OF PATHOLOGY AND GENOMIC MEDICINE Ketones, UA 2+ (A) Negative [facility] DEPARTMENT OF PATHOLOGY AND GENOMIC MEDICINE Bilirubin, UA Negative Negative [facility] DEPARTMENT OF PATHOLOGY AND GENOMIC MEDICINE Blood, UA Large (A) Negative [facility] DEPARTMENT OF PATHOLOGY AND GENOMIC MEDICINE Nitrite, UA Negative Negative [facility] DEPARTMENT OF PATHOLOGY AND GENOMIC MEDICINE Urobilinogen, UA <2.0 <2.0 [facility] DEPARTMENT OF PATHOLOGY AND GENOMIC MEDICINE Leukocyte esterase, Negative Negative [facility] DEPARTMENT OF UA PATHOLOGY AND GENOMIC MEDICINE Epithelial cells, UA 1 /HPF [facility] DEPARTMENT OF PATHOLOGY AND GENOMIC MEDICINE WBC, UA 2 (H) 0 - 1 /HPF [facility] DEPARTMENT OF PATHOLOGY AND GENOMIC MEDICINE RBC, UA 2 0 - 5 /HPF [facility] DEPARTMENT OF PATHOLOGY AND GENOMIC MEDICINE Bacteria, UA Few None seen [facility] DEPARTMENT OF PATHOLOGY AND GENOMIC MEDICINE Hyaline casts, UA 7 /LPF [facility] DEPARTMENT OF PATHOLOGY AND GENOMIC MEDICINE Yeast, UA None seen [facility] DEPARTMENT OF PATHOLOGY AND GENOMIC MEDICINE Yeast with None seen [facility] DEPARTMENT OF pseudohyphae, UA PATHOLOGY AND GENOMIC MEDICINE Specimen Urine - Urine, catheter Performing Organization Address [facility] Phone Number [facility] DEPARTMENT OF PATHOLOGY AND [address] [place] [phone] GENOMIC MEDICINE XR Thoracic Spine 2 Vw (01/15/2018 6:08 PM CDT) Specimen Narrative Performed At EXAMINATION:XR THORACIC SPINE 2 VW [facility] CLINICAL HISTORY:Mid-back T-spine paininitial exam, upper back pains COMPARISON:08/19/2014 thoracic radiograph FINDINGS: 2 views of the thoracic spine were obtained. Vertebral bodies are normal in height. No vertebral fracture. Degenerative changes. Alignment is normal. Soft tissues are normal. IMPRESSION: No acute osseous abnormality of the thoracic spine. [facility]-[id number] Procedure Note Hm Interface, Radiology Results Incoming [...] acute osseous abnormality of the thoracic spine. [facility]-[id number] Performing Organization Address [facility] Centercode Phone Number [facility] [address] [place] [address] US Renal (01/15/2018 4:19 PM CDT) Specimen Narrative Performed At EXAMINATION:US RENAL, US RENAL [facility] CLINICAL HISTORY:Hematuriarenal parenchymal cause suspected, patient has hematuriawe need renal US of the kidney Tx to RO mass and also renal [facility] [place] kidneys to rule out mass TECHNIQUE: Sonographic images of both [place] kidneys and the left iliac fossa renal [...] end-stage renal disease. Small cyst lower pole [place] left kidney. Unremarkable left iliac fossa renal transplant with normal renal Doppler examination. [facility]-[id number] Procedure Note Interface, Radiology Results Incoming - 01/15/2018 4:36 PM CDT EXAMINATION: US RENAL, US RENAL TRANSPLANT DOPPLER CLINICAL HISTORY: Hematuria renal parenchymal cause suspected, patient has hematuria we need renal US of the kidney Tx to RO mass and also renal [facility] [place] kidneys to rule out mass TECHNIQUE: Sonographic images of both [place] kidneys and the left iliac fossa renal [...] end-stage renal disease. Small cyst lower pole [place] left kidney. Unremarkable left iliac fossa renal transplant with normal renal Doppler examination. [facility]-[id number] Performing Organization Address City/State/Zipcode Phone Number [facility] [address] [place] [address] [place] Renal Transplant Doppler (01/15/2018 4:12 PM CDT) Specimen Narrative Performed At EXAMINATION:US RENAL, US RENAL TRANSPLANT DOPPLER [facility] CLINICAL HISTORY:Hematuriarenal parenchymal cause suspected, patient has hematuriawe need renal US of the kidney Tx to RO mass and also renal [facility] [place] kidneys to rule out mass TECHNIQUE: Sonographic images of both [place] kidneys and the left iliac fossa renal [...] end-stage renal disease. Small cyst lower pole [place] left kidney. Unremarkable left iliac fossa renal transplant with normal renal Doppler examination. [facility]-[id number] Procedure Note Hm Interface, Radiology Results Incoming - 01/15/2018 4:36 PM CDT EXAMINATION: US RENAL, US RENAL TRANSPLANT DOPPLER CLINICAL HISTORY: Hematuria renal parenchymal cause suspected, patient has hematuria we need renal US of the kidney Tx to RO mass and also renal [facility] [place] kidneys to rule out mass TECHNIQUE: Sonographic images of both [place] kidneys and the left iliac fossa renal [...] end-stage renal disease. Small cyst lower pole [place] left kidney. Unremarkable left iliac fossa renal transplant with normal renal Doppler examination. [facility]-[id number] Performing Organization Address City/State/Zipcode Phone Number [facility] [address] [place] [address] XR Chest 1 Vw Portable (01/15/2018 11:46 AM CDT) Specimen Narrative Performed At EXAMINATION:XR CHEST 1 VW PORTABLE [facility] CLINICAL HISTORY:Chest Pain COMPARISON:None. IMPRESSION: The lungs and pleural spaces are clear.The cardiomediastinal silhouette is within normal limits.There is no significant skeletal finding. [facility]-[id number] Procedure Note Hm Interface, Radiology Results Incoming - 01/15/2018 11:52 AM CDT EXAMINATION: XR CHEST 1 VW PORTABLE CLINICAL HISTORY: Chest Pain COMPARISON: None. IMPRESSION: The lungs and pleural spaces are clear. The cardiomediastinal silhouette is within normal limits. There is no significant skeletal finding. [facility]-[id number] Performing Organization Address City/State/Zipcode Phone Number [facility] [address] [place] [address] Troponin (01/15/2018 11:21 AM CDT) Pathologist [facility] Troponin <0.30 0.00 - 0.30 [facility] DEPARTMENT OF Comment: ng/mL PATHOLOGY AND 0.30 - 1.49 ng/mlMay indicate increased risk of acute GENOMIC MEDICINE coronary syndrome. >=1.5 ng/mlConsistent with acute myocardial infarction. The diagnostic value of a single normal or non-diagnostic result is questionable.Serial samples at 2-6 hour intervals are required to rule out acute myocardial injury. Specimen Plasma specimen Performing Organization Address [facility] Phone Number [facility] DEPARTMENT OF PATHOLOGY AND [address] [place] [phone] [facility] MEDICINE Partial thromboplastin time, activated (01/15/2018 11:21 AM CDT) Pathologist [facility] PTT 28.1 23.0 - 36.0 [facility] DEPARTMENT OF Comment: sec PATHOLOGY AND PTT therapeutic range for unfractionated heparin is GENOMIC MEDICINE 61.0-112.0 seconds which corresponds to Anti-Xa 0.3-0.7 U/ml. Specimen Blood Performing Organization Address [facility]ode Phone Number [facility] DEPARTMENT OF PATHOLOGY AND [address] [place] [phone] [facility] MEDICINE Prothrombin time with INR (01/15/2018 11:21 AM CDT) Pathologist [facility] Prothrombin time 13.8 12.0 - 15.0 [facility] DEPARTMENT OF sec PATHOLOGY AND GENOMIC MEDICINE INR 1.0 [facility] DEPARTMENT OF Comment: PATHOLOGY AND The International Normalized Ratio (INR) is a therapeutic GENOMIC MEDICINE monitoring tool for patients who are stable on oral anticoagulant therapy. An INR of 2.0-3.0 is suggested for deep vein thrombosis/pulmonary embolism. Specimen Blood Performing Organization Address City/[facility]/Zipcode Phone Number [facility] DEPARTMENT OF PATHOLOGY AND [address] [place] [address] B natriuretic peptide (01/15/2018 11:21 AM CDT) Pathologist [facility] BNP 4 0 - 100 pg/mL [facility] DEPARTMENT OF PATHOLOGY AND GENOMIC MEDICINE Specimen Blood Performing Organization Address [facility]ode Phone Number [facility] DEPARTMENT OF PATHOLOGY AND [address] [place] [address] Lipase level (01/15/2018 11:21 AM CDT) Lipase 25 13 - 60 U/L [facility] DEPARTMENT OF PATHOLOGY AND [facility] Specimen Plasma specimen Performing Organization Address [facility]one Phone Number [facility] DEPARTMENT OF PATHOLOGY AND [address] [place] [address] US Gallbladder (01/15/2018 11:14 AM CDT) Specimen Narrative Performed At EXAMINATION:US GALLBLADDER [facility] CLINICAL HISTORY:Cholelithiasis COMPARISON:None. FINDINGS: Gallbladder: Gallbladder contains multiple stones. There is no wall thickening or pericholecystic fluid. CBD:5 mm , within normal limits. Portal vein: The portal vein demonstrates normal hepatopetal flow. The portal vein measures 7 mm. IMPRESSION: Cholelithiasis without sonographic evidence of cholecystitis. [facility]-[id number] Procedure Note Interface, Radiology Results Incoming - 01/15/2018 11:22 AM CDT EXAMINATION: US GALLBLADDER CLINICAL HISTORY: Cholelithiasis COMPARISON: None. FINDINGS: Gallbladder: Gallbladder contains multiple stones. There is no wall thickening or pericholecystic fluid. CBD: 5 mm , within normal limits. Portal vein: The portal vein demonstrates normal hepatopetal flow. The portal vein measures 7 mm. IMPRESSION: Cholelithiasis without sonographic evidence of cholecystitis. [facility]-[id number] Performing Organization Address [facility]/Zipcode Phone Number [place] [phone] ECG 12 lead (01/15/2018 9:36 AM CDT) Ventricular rate 82 [facility] Atrial rate 82 [facility] ND interval 142 [facility] QRSD interval 88 [facility] QT interval 368 [facility] QTC interval 429 [facility] P axis 1 75 [facility] MUSE QRS axis 1 34 [facility] MUSE T wave axis 56 [facility] EKG impression Normal sinus [facility] M[facility] rhythm-Normal ECG-In automated comparison with ECG of 10-OCT-2013 18:49,-No significant change was found- Specimen Performing Organization Address City/[facility]ode Phone Number [facility] MUSE [address] [place] [phone] Estimated GFR (09/28/2017 8:05 AM CDT) GFR Non Af Amer 70 mL/min/1.73 [facility] DEPARTMENT OF m2 PATHOLOGY AND GENOMIC MEDICINE GFR Af Amer 85 mL/min/1.73 [facility] DEPARTMENT OF Comment: m2 PATHOLOGY AND Chronic kidney disease: <60 mL/min/1.73m2 GENOMIC MEDICINE Kidney failure: <15 mL/min/1.73m2 The estimated [...] Americans. Specimen Plasma specimen Performing Organization Address City/[facility]ode Phone Number [facility] DEPARTMENT OF PATHOLOGY AND [address] [place] [phone] GENOMIC MEDICINE FK506 level (09/28/2017 8:05 AM CDT) FK506 level <2.0 ng/mL [facility] DEPARTMENT OF Comment: PATHOLOGY AND Therapeutic range 5-20 ng/mL for 12 hour trough. The range GENOMIC MEDICINE varies depending on the organ transplanted, time after transplantation and co-administered immunosuppressant therapies. Please use clinical judgment to interpret test result. Test performed using [employer] chemiluminescent microparticle immunoassay for Tacrolimus on the [employer] i System. Specimen Blood Performing Organization Address City/State/Zipcode Phone Number [facility] DEPARTMENT OF PATHOLOGY AND [address] [place] [phone] GENOMIC MEDICINE after 09/14/2017 Insurance Payer Benefit Plan / Subscriber ID Effective Dates Phone Address Type Group MEDICARE MEDICARE PART A xxxxxxxxxxx 1993-Present [place], [place] Medicare AND B
--- OUTSIDE RECORDS SUMMARY | 2018-09-15 03:46 | XMS REPORT | Clinical Summary ---
:1965 Author Organization [facility] Address [address] [place] [id number] Care Team Providers Name Role Phone Terrence [...] Not on file Results Not on fileafter 09/14/2017 Insurance Payer Benefit Plan / Group Subscriber ID Type Phone Address [employer] [facility] x[facility]
[2018-09-15] MEDS ORDERED: FENTANYL CITR 100 MCG/2 ML ONE (04:16)
[2018-09-15] MEDS ORDERED: ONDANSETRON 4 MG/2 ML VIAL ONE (04:16)
[2018-09-15] MEDS ORDERED: NA CHLORIDE 0.9% 1,000 ML ONE (04:16)
[2018-09-15 04:41] LABS: Absolute Lymphocytes (CBC) 1.9 K/uL (0.7-4.9); Absolute Monocytes 0.6 K/uL (0.1-1.3); Absolute Neutrophil 5.6 K/uL (1.8-8.0); Basophils % 0.6 % (0-1.3); Eosinophils % 2.1 % (0-4.4); MPV 7.4 fL (7.6-11.3); Monocytes % 7.6 % (3.3-12.3); RBC Red Blood Cell Count 4.41 M/uL (4.33-5.43)
[2018-09-15 04:57] LABS: Albumin 3.5 g/dL (3.4-5.0); Bilirubin Direct 0.1 mg/dL (0-0.2); Bilirubin Total 0.5 mg/dL (0.2-1.0); Potassium 3.5 mmol/L (3.5-5.1); Protein, Total 7.5 g/dL (6.4-8.2)
--- NOTE | 2018-09-15 05:28 | ER ---
Nurse's Notes [facility] Name: Shoaib Freitas Jr Age: 53 yrs Sex: Male : 1965 Arrival Date: 09/15/2018 Time: 03:42 Bed 6 Private MD: Diagnosis: Vomiting;Generalized abdominal pain Presentation: 09/15 03:53 Presenting complaint: Patient states: he has been having abdominal pain for 2 to 3 days bb with vomiting which is getting worse tonight he was having trouble sleeping due to the pain, pt denies diarrhea and had a normal bowel movement last night. Transition of care: patient was not received from another setting of care. Onset of symptoms was September 12, 2018. Risk Assessment: Do you want to hurt yourself or someone else? Patient reports no desire to harm self or others. Initial Sepsis Screen: Does the patient meet any 2 criteria? No. Patient's initial sepsis screen is negative. Does the patient have a suspected source of infection? No. Patient's initial sepsis screen is negative. Care prior to arrival: None. 03:53 Method Of Arrival: Ambulatory bb 03:53 Acuity: COBY 3 bb Historical: - Allergies: 03:56 No Known Allergies; bb - Home Meds: 03:56 diltiazem HCl 240 mg Oral cpER 1 cap once daily for Hypertension [Active]; prednisone 5 bb mg Oral tab once daily [Active]; valsartan 40 mg Oral tab 1 tab once daily for Hypertension [Active]; - PMHx: 03:56 Gall Stones; history of dialysis; Hypertension; kidney transplant; Pancreatitis; kidney bb transplant; - PSHx: 03:56 Cholecystectomy; kidney transplant; bb - Immunization history:: Adult Immunizations up to date. - Social history:: Smoking status: Patient/guardian denies using tobacco. - Ebola Screening: : No symptoms or risks identified at this time. Screenin:26 Abuse screen: Denies threats or abuse. Denies injuries from another. Nutritional rr5 screening: No deficits noted. Tuberculosis screening: No symptoms or risk factors identified. Fall Risk IV access (20 points). Total Pacheco Fall Scale indicates No Risk (0-24 pts). Assessment: 04:00 General: Appears in no apparent distress. uncomfortable, Behavior is calm, cooperative, rr5 appropriate for age. Pain: Complains of pain in abdomen Pain does not radiate. Pain currently is 7 out of 10 on a pain scale. Quality of pain is described as aching, Pain began gradually, Is intermittent. 04:00 Neuro: Level of Consciousness is awake, alert, obeys commands, Oriented to person, rr5 place, time, situation, Appropriate for age. Cardiovascular: Capillary refill < 3 seconds Patient's skin is warm and dry. Respiratory: Airway is patent Respiratory effort is even, unlabored, Respiratory pattern is regular, symmetrical. GI: Abdomen is round Bowel sounds present X 4 quads. Abd is soft Reports lower abdominal pain, upper abdominal pain, nausea, vomiting. : No signs and/or symptoms were reported regarding the genitourinary system. EENT: No signs and/or symptoms were reported regarding the EENT system. Derm: No signs and/or symptoms reported regarding the dermatologic system. Musculoskeletal: Capillary refill < 3 seconds, Range of motion: intact in all extremities. 05:00 Reassessment: Patient appears in no apparent distress at this time. awaiting for urine rr5 specimen. Patient states symptoms have improved. 05:50 Reassessment: Patient appears in no apparent distress at this time. Patient is alert, rr5 oriented x 3, equal unlabored respirations, skin warm/dry/pink. discharge instruction given and explained without complaints made. Vital Signs: 03:56 BP 146 / 95; Pulse 92; Resp 18 S; Temp 98.3(O); Pulse Ox 99% on R/A; Weight 88.45 kg bb (R); Height 5 ft. 11 in. (180.34 cm) (R); Pain 7/10; 05:00 BP 129 / 82; Pulse 85; Resp 17; Pulse Ox 99% ; rr5 05:00 Pain 5/10; rr5 05:53 BP 129 / 84; Pulse 80; Resp 17; Temp 98.4; Pulse Ox 99% on R/A; rr5 05:53 Pain 5/10; rr5 03:56 Body Mass Index 27.20 (88.45 kg, 180.34 cm) ED Course: 03:42 Patient arrived in ED. am2 03:53 Edwin Acharya MD is Attending Physician. gs 03:55 Triage completed. bb 03:56 Arm band placed on Patient placed in an exam room, on a stretcher, on pulse oximetry. jackson Family accompanied patient. 03:58 Morgan Miguel, RN is Primary Nurse. rr5 04:00 Patient has correct armband on for positive identification. Placed in gown. Bed in low rr5 position. Call light in reach. Side rails up X2. Pulse ox on. NIBP on. 04:20 Initial lab(s) drawn, by me, sent to lab. Inserted saline lock: 20 gauge in right rr5 forearm, using aseptic technique. Blood collected. 05:20 Urine collected: clean catch specimen, clear, Amount Voided: 250mL. rr5 05:54 No provider procedures requiring assistance completed. IV discontinued, intact, rr5 bleeding controlled, No redness/swelling at site. Pressure dressing applied. Administered Medications: 04:20 Drug: NS 0.9% 1000 ml Route: IV; Rate: 1 bolus; Site: right forearm; rr5 05:50 Follow up: Response: No adverse reaction; IV Status: Completed infusion; IV Intake: rr5 1000ml 04:21 Drug: Zofran 4 mg Route: IVP; Site: right forearm; rr5 05:20 Follow up: Response: No adverse reaction rr5 04:23 Drug: fentaNYL (PF) 50 mcg Route: IVP; Site: right forearm; rr5 05:20 Follow up: Response: No adverse reaction rr5 Intake: 05:50 IV: 1000ml; Total: 1000ml. rr5 Outcome: 05:27 Discharge ordered by . 05:54 Discharged to home ambulatory. rr5 05:54 Condition: stable 05:54 Discharge instructions given to patient, Instructed on discharge instructions, follow up and referral plans. medication usage, Demonstrated understanding of instructions, follow-up care, medications, Prescriptions given X 1. 05:56 Patient left the ED. rr5 Signatures: Shikha Young RN RN Manda Esqueda am2 Edwin Acharya MD MD Morgan Miguel, RN RN rr5
--- NOTE | 2018-09-15 05:29 | EDPHYS ---
Physician Documentation [facility] Name: Shoaib Freitas Jr Age: 53 yrs Sex: Male : 1965 Arrival Date: 09/15/2018 Time: 03:42 Bed 6 Private MD: ED Physician Edwin Acharya HPI: 09/15 05:22 This 53 yrs old Black Male presents to ER via Ambulatory with complaints of Abdominal gs Pain, Back Pain. 05:23 The patient presents to the emergency department with vomiting. Onset: The gs symptoms/episode began/occurred gradually, 2 day(s) ago. Possible causes: unknown. The symptoms are aggravated by nothing. The symptoms are alleviated by nothing. Associated signs and symptoms: Pertinent negatives: anorexia, constipation, diarrhea. Severity of symptoms: At their worst the symptoms were moderate in the emergency department the symptoms have improved markedly. The patient has experienced similar episodes in the past, a few times. Historical: - Allergies: 03:56 No Known Allergies; bb - Home Meds: 03:56 diltiazem HCl 240 mg Oral cpER 1 cap once daily for Hypertension [Active]; prednisone 5 bb mg Oral tab once daily [Active]; valsartan 40 mg Oral tab 1 tab once daily for Hypertension [Active]; - PMHx: 03:56 Gall Stones; history of dialysis; Hypertension; kidney transplant; Pancreatitis; kidney bb transplant; - PSHx: 03:56 Cholecystectomy; kidney transplant; bb - Immunization history:: Adult Immunizations up to date. - Social history:: Smoking status: Patient/guardian denies using tobacco. - Ebola Screening: : No symptoms or risks identified at this time. ROS: 05:23 All other systems are negative. gs Exam: 05:23 Head/Face: Normocephalic, atraumatic. Eyes: Pupils equal round and reactive to light, gs extra-ocular motions intact. Lids and lashes normal. Conjunctiva and sclera are non-icteric and not injected. Cornea within normal limits. Periorbital areas with no swelling, redness, or edema. ENT: Nares patent. No nasal discharge, no septal abnormalities noted. Tympanic membranes are normal and external auditory canals are clear. Oropharynx with no redness, swelling, or masses, exudates, or evidence of obstruction, uvula midline. Mucous membranes moist. Neck: Trachea midline, no thyromegaly or masses palpated, and no cervical lymphadenopathy. Supple, full range of motion without nuchal rigidity, or vertebral point tenderness. No Meningismus. Chest/axilla: Normal chest wall appearance and motion. Nontender with no deformity. No lesions are appreciated. Cardiovascular: Regular rate and rhythm with a normal S1 and S2. No gallops, murmurs, or rubs. Normal PMI, no JVD. No pulse deficits. Respiratory: Lungs have equal breath sounds bilaterally, clear to auscultation and percussion. No rales, rhonchi or wheezes noted. No increased work of breathing, no retractions or nasal flaring. Abdomen/GI: Soft, non-tender, with normal bowel sounds. No distension or tympany. No guarding or rebound. No evidence of tenderness throughout. Back: No spinal tenderness. No costovertebral tenderness. Full range of motion. Skin: Warm, dry with normal turgor. Normal color with no rashes, no lesions, and no evidence of cellulitis. MS/ Extremity: Pulses equal, no cyanosis. Neurovascular intact. Full, normal range of motion. Neuro: Awake and alert, GCS 15, oriented to person, place, time, and situation. Cranial nerves II-XII grossly intact. Motor strength 5/5 in all extremities. Sensory grossly intact. Cerebellar exam normal. Normal gait. 05:23 Constitutional: The patient appears alert, awake. Vital Signs: 03:56 BP 146 / 95; Pulse 92; Resp 18 S; Temp 98.3(O); Pulse Ox 99% on R/A; Weight 88.45 kg bb (R); Height 5 ft. 11 in. (180.34 cm) (R); Pain 7/10; 05:00 BP 129 / 82; Pulse 85; Resp 17; Pulse Ox 99% ; rr5 05:00 Pain 5/10; rr5 05:53 BP 129 / 84; Pulse 80; Resp 17; Temp 98.4; Pulse Ox 99% on R/A; rr5 05:53 Pain 5/10; rr5 03:56 Body Mass Index 27.20 (88.45 kg, 180.34 cm) bb MDM: 03:55 Patient medically screened. 05:23 Differential diagnosis: gastritis, pancreatitis, gastroenteritis. Data reviewed: vital gs signs, nurses notes, old medical records, lab test result(s), radiologic studies. Counseling: I had a detailed discussion with the patient and/or guardian regarding: the historical points, exam findings, and any diagnostic results supporting the discharge/admit diagnosis, the need for outpatient follow up. Response to treatment: the patient's symptoms have markedly improved after treatment, the patient's condition has returned to base line, patient is well hydrated. and as a result, I will discharge patient. 09/15 03:57 Order name: Basic Metabolic Panel; Complete Time: 05:02 gs 09/15 03:57 Order name: CBC with Diff; Complete Time: 05:16 gs 09/15 03:57 Order name: Hepatic Function; Complete Time: 05:02 gs 09/15 03:57 Order name: Lipase; Complete Time: 05:02 gs 09/15 04:55 Order name: Urine Microscopic Only; Complete Time: 05:48 gs 09/15 03:57 Order name: IV Saline Lock; Complete Time: 04:24 gs 09/15 03:57 Order name: Labs collected and sent; Complete Time: 04:24 gs 09/15 04:55 Order name: Urine Dipstick-Ancillary (obtain specimen); Complete Time: 05:19 gs Administered Medications: 04:20 Drug: NS 0.9% 1000 ml Route: IV; Rate: 1 bolus; Site: right forearm; rr5 05:50 Follow up: Response: No adverse reaction; IV Status: Completed infusion; IV Intake: rr5 1000ml 04:21 Drug: Zofran 4 mg Route: IVP; Site: right forearm; rr5 05:20 Follow up: Response: No adverse reaction rr5 04:23 Drug: fentaNYL (PF) 50 mcg Route: IVP; Site: right forearm; rr5 05:20 Follow up: Response: No adverse reaction rr5 Disposition: 09/15/18 05:27 Discharged to Home. Impression: Vomiting, Generalized abdominal pain. - Condition is Stable. - Prescriptions for Zofran 4 mg Oral Tablet - take 1 tablet by ORAL route every 12 hours As needed; 6 tablet. - Medication Reconciliation Form, Thank You Letter, Antibiotic Education, Prescription Opioid Use form. - Follow up: Private Physician; When: 2 - 3 days; Reason: Re-evaluation by your physician. Signatures: Dispatcher [facility] Shikha Gray, RN RN bb Edwin Acharya MD MD gs Morgan Miguel RN RN rr5 Corrections: (The following items were deleted from the chart) 05:56 05:27 09/15/2018 05:27 Discharged to Home. Impression: Vomiting; Generalized abdominal rr5 pain. Condition is Stable. Forms are Medication Reconciliation Form, Thank You Letter, Antibiotic Education, Prescription Opioid Use. Follow up: Private Physician; When: 2 - 3 days; Reason: Re-evaluation by your physician. gs
[2018-09-15 05:47] LABS: Urine Bacteria <20 /HPF (NONE SEEN)
[2018-09-15 05:48] LABS: Urine Culture Reflex Order NOT NEEDED
[2018-09-15 06:02] VITALS: O2SAT 99
[2018-09-15 06:04] VITALS: BP 129/84; TEMP 98.4
== END 2018-09-15 05:56 | disposition home or self-care (01) ==
LOC: ER 03:42
DX: R11.10 Vomiting, unspecified (principal); I10 Essential (primary) hypertension; Z94.0 Kidney transplant status
CPT/HCPCS: 96361; 85025; 80048; 36415; 80076; 81015; 83690; 96375; 96374; 99284; J3010; J7030; J2405

== ENCOUNTER 2018-11-11 15:01 | Emergency (ER) | payer OTHER ==
--- OUTSIDE RECORDS SUMMARY | 2018-11-11 15:04 | XMS REPORT | Clinical Summary ---
:1965 Author Organization [facility] Address [address] [place] [address] Care Team Providers Name Role Phone Juan [...] of phosphorus metabolism 12/08/2017 Intake Access N/A after 11/10/2017 Social History Tobacco Use Types Packs/Day Years [...] Maintenance Due Date Last Done Comments COLONOSCOPY SCREENING 02/28/2016 SHINGLES VACCINES (#1) 02/28/2016 INFLUENZA [...] CDT procedure are in the results section. [place] AN ELECTIVE Routine 01/16/2018 2:08 ENDOTRACHEAL AIRWAY PM CDT Procedure Note - Ethan Beckman CRNA - 01/16/2018 2:08 PM CDT Airway Date/Time: 01/16/2018 1:41 AM Performed by: ETHAN BECKMAN Authorized by: DOMINICK DUMONT Location: OR Urgency: Elective Performed by: resident/SENIOR DEVOPS ENGINEER/AA Preoxygenated with 100% O2: Yes C-spine Precautions [...] procedure are in the results section. after 11/10/2017 Results Urinalysis screen and microscopy, with reflex to culture (07/19/2018 9:00 AM CDT)Only the most recent of2 resultswithin the time period is included. Specimen site Clean catch [facility] Color, UA Yellow [facility] Appearance, UA Clear [facility] Specific gravity, 1.021 1.001 - 1.035 [facility] pH, UA 5.0 5.0 - 8.5 [facility] Protein, UA 2+ (A) Negative [facility] Glucose, UA Negative Negative [facility] Ketones, UA Negative Negative [facility] Bilirubin, UA Negative Negative [facility] Blood, UA Moderate (A) Negative [facility] Nitrite, UA Negative Negative [facility] Urobilinogen, UA <2.0 <2.0 [facility] Leukocyte esterase, Negative Negative [facility] WBC, UA 1 0 - 1 /HPF [facility] RBC, UA 2 0 - 5 /HPF [facility] Bacteria, UA Few None seen [facility] Yeast, UA None seen [facility] Yeast with None seen [facility] pseudohyphae, [facility] Hyaline casts, UA 4 /LPF [facility] Specimen Urine Performing Organization Address City/State/Zipcode Phone Number [facility] DEPARTMENT OF PATHOLOGY AND [address] [place] [phone] [place] [phone] Estimated GFR (07/19/2018 9:00 AM CDT)Only the most recent of7 resultswithin the time period is included. Pathologist [facility] Estimated GFR 82 mL/min/1.73 [facility] Comment: [address] CatergoryUnitsInterpretation G1 >=90 Normal or high G2 60-89Mildly decreased [id number] to moderately decreased [id number] to severely decreased G4 15-29Severely decreased G5 <15Kidney failure The eGFR was calculated using the Chronic Kidney Disease Epidemiology Collaboration (CKD-EPI) equation. Interpretation is based on recommendations of the National Kidney Foundation-Kidney Disease Outcomes Quality Initiative (NKF-KDOQI) published in 2014. Specimen Plasma specimen Performing Organization Address City/State/Zipcode Phone Number [facility] DEPARTMENT OF PATHOLOGY AND [address] [place] [phone] Cyclosporine level, random (07/19/2018 9:00 AM CDT)Only the most recent of3 resultswithin the time period is included. [facility] Cyclosporine 418 ng/mL [facility] Comment: HOSPITAL Unless administered by continuous IV drip, collect a purple top tube just before the next dose. Therapeutic range of approximately 100-500 varies mainly with type of transplant, use of other immunosuppressive agents, and evidence of toxicity or rejection. Test performed using [employer] chemiluminescent microparticle immunoassay for Cyclosporine on the [employer] i System. Specimen Blood Performing Organization Address City/State/Zipcode Phone Number [facility] DEPARTMENT OF PATHOLOGY AND [address] [place] [address] Protein, urine, random (07/19/2018 9:00 AM CDT)Only the most recent of2 resultswithin the time period is included. Pathologist [facility] Protein, urine random 181 mg/dL [facility] Specimen Urine Performing Organization Address City/[facility] Phone Number [facility] DEPARTMENT OF PATHOLOGY AND [address] [place] [phone] [address] Creatinine level, urine, random (07/19/2018 9:00 AM CDT)Only the most recent of2 resultswithin the time period is included. Creatinine, urine, 197 mg/dL [facility] HOSPITAL Specimen Urine Performing Organization Address [facility] Phone Number [facility] DEPARTMENT OF PATHOLOGY AND [address] [place] [phone] [address] CBC with platelet and differential (07/19/2018 9:00 AM CDT)Only the most recent of6 resultswithin the time period is included. WBC 9.62 4.50 - 11.00 [facility] k/uL [facility] RBC 4.42 4.40 - 6.00 [facility] m/uL [facility] HGB 14.0 14.0 - 18.0 [facility] g/dL [facility] HCT 42.4 41.0 - 51.0 % [facility] MCV 95.9 82.0 - 100.0 [facility] MCH 31.7 27.0 - 34.0 pg [facility] MCHC 33.0 31.0 - 37.0 [facility] RDW - SD 41.3 37.0 - 55.0 fL [facility] MPV 9.3 8.8 - 13.2 fL [facility] Platelet count 284 150 - 400 k/uL [facility] Nucleated RBC 0.00 /100 WBC [facility] Neutrophils 57.6 39.0 - 69.0 % [facility] Lymphocytes 28.9 25.0 - 45.0 % [facility] Monocytes 8.9 0.0 - 10.0 % [facility] Eosinophils 3.4 0.0 - 5.0 % [facility] Basophils 0.8 0.0 - 1.0 % [facility] Immature granulocytes 0.4Comment: 0.0 - 1.0 % [facility] "Immature HOSPITAL granulocytes" (promyelocytes , myelocytes, metamyelocytes ) Specimen Blood Performing Organization Address [facility] Cent[facility]ode Phone Number [facility] DEPARTMENT OF PATHOLOGY AND [address] [place] [phone] [place] [phone] Urine culture (07/19/2018 9:00 AM CDT)Only the most recent of2 resultswithin the time period is included. Urine culture SEE COMMENTComment: [facility] Bacteriuria screen HOSPITAL negative. Specimen Performing Organization Address [facility] Cent[facility]ode Phone Number [facility] DEPARTMENT OF PATHOLOGY AND [address] [place] [address] Uric acid level (07/19/2018 9:00 AM CDT)Only the most recent of2 resultswithin the time period is included. Uric acid 6.1 3.4 - 7.0 mg/dL [facility] Specimen Plasma specimen Performing Organization Address [facility] Phone Number [facility] DEPARTMENT OF PATHOLOGY AND [address] [place] [address] Phosphorus level (07/19/2018 9:00 AM CDT)Only the most recent of4 resultswithin the time period is included. Phosphorus 2.1 (L) 2.4 - 4.5 mg/dL [facility] Specimen Plasma specimen Performing Organization Address [facility] Phone Number [facility] DEPARTMENT OF PATHOLOGY AND [address] [place] [address] Magnesium level (07/19/2018 9:00 AM CDT)Only the most recent of4 resultswithin the time period is included. Magnesium 1.8 1.6 - 2.6 mg/dL [facility] Specimen Plasma specimen Performing Organization Address [facility]ode Phone Number [facility] DEPARTMENT OF PATHOLOGY AND [address] [place] [phone] [place] [address] LDH (07/19/2018 9:00 AM CDT)Only the most recent of2 resultswithin the time period is included. LDH 160 87 - 225 U/L [facility] Specimen Plasma specimen Performing Organization Address City/State/Zipcode Phone Number [facility] DEPARTMENT OF PATHOLOGY AND [address] [place] [phone] [place] [address] Comprehensive metabolic panel (07/19/2018 9:00 AM CDT)Only the most recent of4 resultswithin the time period is included. Sodium 138 135 - 148 [facility] mEq/L [facility] Potassium 4.3 3.5 - 5.0 [facility] mEq/L [facility] Chloride 103 98 - 112 mEq/L [facility] CO2 26 24 - 31 mEq/L [facility] Anion gap 9@ANIO 7 - 15 mEq/L [facility] BUN 15 6 - 20 mg/dL [facility] Creatinine 1.18 0.70 - 1.20 [facility] mg/dL [facility] Glucose 106 (H) 65 - 99 mg/dL [facility] Calcium 10.2 8.3 - 10.2 [facility] mg/dL [facility] Protein 7.6 6.3 - 8.3 g/dL [facility] Comment: HOSPITAL [place] 4.6-7.0 g/dL 1 week 4.4-7.6 g/dL 7 months-1year5.1-7.3 g/dL 1-2 years5.6-7.5 g/dL >3 years6.0-8.0 g/dL 18-150 6.3-8.3 g/dL Albumin 3.6 3.5 - 5.0 g/dL [facility] A/G ratio 0.9 0.7 - 3.8 [facility] Alkaline phosphatase 84 40 - 129 U/L [facility] AST 21 10 - 50 U/L [facility] ALT 24 5 - 50 U/L [facility] Total bilirubin 0.5 0.0 - 1.2 [facility] mg/dL [facility] Specimen Plasma specimen Performing Organization Address City/State/Zipcode Phone Number [facility] DEPARTMENT OF PATHOLOGY AND [address] [place] [address] [address] Basic metabolic panel (01/19/2018 4:00 AM CDT)Only the most recent of3 resultswithin the time period is included. Sodium 137 135 - 148 mEq/L [facility] DEPARTMENT OF PATHOLOGY AND GENOMIC MEDICINE Potassium 3.8 3.5 - 5.0 mEq/L [facility] DEPARTMENT OF PATHOLOGY AND GENOMIC MEDICINE Chloride 101 98 - 112 mEq/L [facility] DEPARTMENT OF PATHOLOGY AND GENOMIC MEDICINE CO2 27 24 - 31 mEq/L [facility] DEPARTMENT OF PATHOLOGY AND GENOMIC MEDICINE Anion gap 9@ANIO 7 - 15 mEq/L [facility] DEPARTMENT OF PATHOLOGY AND GENOMIC MEDICINE BUN 14 6 - 20 mg/dL [facility] DEPARTMENT OF PATHOLOGY AND GENOMIC MEDICINE Creatinine 1.03 0.70 - 1.20 mg/dL [facility] DEPARTMENT OF PATHOLOGY AND GENOMIC MEDICINE Glucose 91 65 - 99 mg/dL [facility] DEPARTMENT OF PATHOLOGY AND GENOMIC MEDICINE Calcium 9.6 8.3 - 10.2 mg/dL [facility] DEPARTMENT OF PATHOLOGY AND GENOMIC MEDICINE Specimen Plasma specimen Performing Organization Address [facility] Phone Number [facility] DEPARTMENT OF PATHOLOGY AND [address] [place] [address] [facility] MEDICINE [place] < 1 Hour (01/16/2018 [...] mGy Tech: [id number] Performing Organization Address City/[facility] Phone Number [facility] [address] [place] [address] Surgical pathology request (01/16/2018 8:46 AM CDT) [facility] DEPARTMENT OF PATHOLOGY AND GENOMIC MEDICINE Surgical pathology See link below [facility] DEPARTMENT OF report for PDF Lab PATHOLOGY AND Report GENOMIC MEDICINE Result status This is Final [facility] DEPARTMENT OF Report for PATHOLOGY AND [id number] GENOMIC MEDICINE Specimen Performing Organization Address City/[facility] Phone Number [facility] DEPARTMENT OF PATHOLOGY AND [address] [place] [address] GENOMIC MEDICINE Urinalysis, automated with microscopy (01/15/2018 6:50 PM CDT) Color, UA Yellow [facility] DEPARTMENT OF PATHOLOGY AND GENOMIC MEDICINE Appearance, UA Clear [facility] DEPARTMENT OF PATHOLOGY AND GENOMIC MEDICINE Specific gravity, UA 1.028 1.001 - 1.035 [facility] DEPARTMENT OF PATHOLOGY AND GENOMIC MEDICINE pH, UA 5.0 5.0 - 8.5 [facility] DEPARTMENT OF PATHOLOGY AND GENOMIC MEDICINE Protein, UA 3+ (A) Negative [facility] DEPARTMENT OF PATHOLOGY AND GENOMIC MEDICINE Glucose, UA Negative Negative [facility] DEPARTMENT OF PATHOLOGY AND GENOMIC MEDICINE Ketones, UA 2+ (A) Negative [facility] DEPARTMENT OF PATHOLOGY AND GENOMIC MEDICINE Bilirubin, UA Negative Negative [facility] DEPARTMENT OF PATHOLOGY AND GENOMIC MEDICINE Blood, UA Large (A) Negative [facility] DEPARTMENT OF PATHOLOGY AND GENOMIC MEDICINE Nitrite, UA Negative Negative [facility] DEPARTMENT OF PATHOLOGY AND GENOMIC MEDICINE Urobilinogen, UA <2.0 <2.0 [facility] DEPARTMENT OF PATHOLOGY AND GENOMIC MEDICINE Leukocyte esterase, Negative Negative [facility] DEPARTMENT OF UA PATHOLOGY AND GENOMIC MEDICINE Epithelial cells, UA 1 /HPF [facility] DEPARTMENT OF PATHOLOGY AND GENOMIC MEDICINE WBC, UA 2 (H) 0 - 1 /HPF [facility] DEPARTMENT OF PATHOLOGY AND GENOMIC MEDICINE RBC, UA 2 0 - 5 /HPF [facility] DEPARTMENT OF PATHOLOGY AND GENOMIC MEDICINE Bacteria, UA Few None seen [facility] DEPARTMENT OF PATHOLOGY AND GENOMIC MEDICINE Hyaline casts, UA 7 /LPF [facility] DEPARTMENT OF PATHOLOGY AND GENOMIC MEDICINE Yeast, UA None seen [facility] DEPARTMENT OF PATHOLOGY AND GENOMIC MEDICINE Yeast with None seen [facility] DEPARTMENT OF pseudohyphae, UA PATHOLOGY AND GENOMIC MEDICINE Specimen Urine - Urine, catheter Performing Organization Address City/[facility]/Zipcode Phone Number [facility] DEPARTMENT OF PATHOLOGY AND [address] [place] [address] GENOMIC MEDICINE XR Thoracic Spine 2 Vw [...] acute osseous abnormality of the thoracic spine. [facility]-[id number] Procedure Note Hm Interface, Radiology Results Incoming [...] acute osseous abnormality of the thoracic spine. [facility]-[id number] Performing Organization Address City/State/Zipcode Phone Number [facility] [address] [place] [address] [place] Renal (01/15/2018 4:19 PM CDT) Specimen Narrative Performed At EXAMINATION:US RENAL, US RENAL TRANSPLANT DOPPLER [facility] CLINICAL HISTORY:Hematuriarenal parenchymal cause suspected, patient has hematuriawe need renal US of the kidney Tx to RO mass and also renal [facility] [place] kidneys to rule out mass TECHNIQUE: Sonographic images of both [place] kidneys and the left iliac fossa [...] end-stage renal disease. Small cyst lower pole [place] left kidney. Unremarkable left iliac fossa renal transplant with normal renal Doppler examination. [facility]-[id number] Procedure Note Hm Interface, Radiology Results Incoming - 01/15/2018 4:36 PM CDT EXAMINATION: US RENAL, US RENAL TRANSPLANT DOPPLER CLINICAL HISTORY: Hematuria renal parenchymal cause suspected, patient has hematuria we need renal US of the kidney Tx to RO mass and also renal [facility] [place] kidneys to rule out mass TECHNIQUE: Sonographic images of both [place] kidneys and the left iliac fossa [...] end-stage renal disease. Small cyst lower pole [place] left kidney. Unremarkable left iliac fossa renal transplant with normal renal Doppler examination. [facility]-[id number] Performing Organization Address City/State/Zipcode Phone Number [facility] [address] [place] [address] [place] Renal Transplant Doppler (01/15/2018 4:12 PM CDT) Specimen Narrative Performed At EXAMINATION:US RENAL, US [facility]NAL [facility]ICAL H[facility]:Hematuriarenal parenchymal cause suspected, patient has hematuriawe need renal US of the kidney Tx to RO mass and also renal [facility] [place] [facility] [place] kidneys to rule out mass TECHNIQUE: Sonographic images of both [place] kidneys and the left iliac fossa [...] end-stage renal disease. Small cyst lower pole [place] left kidney. Unremarkable left iliac fossa renal transplant with normal renal Doppler examination. [facility]-[id number] Procedure Note [facility], Radiology Results Incoming - 01/15/2018 4:36 PM CDT EXAMINATION: US RENAL, US RENAL TRANSPLANT DOPPLER CLINICAL HISTORY: Hematuria renal parenchymal cause suspected, patient has hematuria we need renal US of the kidney Tx to RO mass and also renal [facility] [place] kidneys to rule out mass TECHNIQUE: Sonographic images of both [place] kidneys and the left iliac fossa [...] end-stage renal disease. Small cyst lower pole [place] left kidney. Unremarkable left iliac fossa renal transplant with normal renal Doppler examination. [facility]-[id number] Performing Organization Address [facility] Phone Number [facility] [address] [place] [address] XR Chest 1 Vw Portable (01/15/2018 11:46 AM CDT) Specimen Narrative Performed At EXAMINATION:XR CHEST 1 VW PORTABLE [facility] CLINICAL HISTORY:Chest Pain COMPARISON:None. IMPRESSION: The lungs and pleural spaces are clear.The cardiomediastinal silhouette is within normal limits.There is no significant skeletal finding. [facility]-[id number] Procedure Note Interface, Radiology Results Incoming - 01/15/2018 11:52 AM CDT EXAMINATION: XR CHEST 1 VW PORTABLE CLINICAL HISTORY: Chest Pain COMPARISON: None. IMPRESSION: The lungs and pleural spaces are clear. The cardiomediastinal silhouette is within normal limits. There is no significant skeletal finding. [facility]-[id number] Performing Organization Address [facility] Phone Number [facility] [address] [place] [address] Troponin (01/15/2018 11:21 AM CDT) Troponin <0.30 0.00 - 0.30 [facility] DEPARTMENT OF Comment: ng/mL PATHOLOGY AND 0.30 - 1.49 ng/mlMay indicate increased risk of acute GENOMIC MEDICINE coronary syndrome. >=1.5 ng/mlConsistent with acute myocardial infarction. The diagnostic value of a single normal or non-diagnostic result is questionable.Serial samples at 2-6 hour intervals are required to rule out acute myocardial injury. Specimen Plasma specimen Performing Organization Address [facility]/Zipcode Phone Number [facility] DEPARTMENT OF PATHOLOGY AND [address] [place] [address] Partial thromboplastin time, activated (01/15/2018 11:21 AM CDT) Pathologist [facility] PTT 28.1 23.0 - 36.0 [facility] DEPARTMENT OF Comment: sec PATHOLOGY AND PTT therapeutic range for unfractionated heparin is [facility] 61.0-112.0 seconds which corresponds to Anti-Xa 0.3-0.7 U/ml. Specimen Blood Performing Organization Address [facility] Centercode Phone Number [facility] DEPARTMENT OF PATHOLOGY AND [address] [place] [address] Prothrombin time with INR (01/15/2018 11:21 AM CDT) [facility] Prothrombin time 13.8 12.0 - 15.0 [facility] DEPARTMENT OF sec PATHOLOGY AND [facility] MEDICINE INR 1.0 [facility] DEPARTMENT OF Comment: PATHOLOGY AND The International Normalized Ratio (INR) is a therapeutic GENOMIC MEDICINE monitoring tool for patients who are stable on oral anticoagulant therapy. An INR of 2.0-3.0 is suggested for deep vein thrombosis/pulmonary embolism. Specimen Blood Performing Organization Address [facility] Phone Number [facility] DEPARTMENT OF PATHOLOGY AND [address] [place] [address] B natriuretic peptide (01/15/2018 11:21 AM CDT) Pathologist [facility] BNP 4 0 - 100 pg/mL [facility] DEPARTMENT OF PATHOLOGY AND GENOMIC MEDICINE Specimen Blood Performing Organization Address [facility] Phone Number [facility] DEPARTMENT OF PATHOLOGY AND [address] [place] [address] Lipase level (01/15/2018 11:21 AM CDT) Lipase 25 13 - 60 U/L [facility] DEPARTMENT OF PATHOLOGY AND GENOMIC MEDICINE Specimen Plasma specimen Performing Organization Address [facility] Phone Number [facility] DEPARTMENT OF PATHOLOGY AND [address] [place] [address] [place] Gallbladder (01/15/2018 11:14 AM CDT) Specimen Narrative Performed At EXAMINATION:US GALLBLADDER [facility] CLINICAL HISTORY:Cholelithiasis COMPARISON:None. FINDINGS: Gallbladder: Gallbladder contains multiple stones. There is no wall thickening or pericholecystic fluid. CBD:5 mm , within normal limits. Portal vein: The portal vein demonstrates normal hepatopetal flow. The portal vein measures 7 mm. IMPRESSION: Cholelithiasis without sonographic evidence of cholecystitis. [facility]-[id number] Procedure Note Hm Interface, Radiology Results Incoming - 01/15/2018 11:22 AM CDT EXAMINATION: US GALLBLADDER CLINICAL HISTORY: Cholelithiasis COMPARISON: None. FINDINGS: Gallbladder: Gallbladder contains multiple stones. There is no wall thickening or pericholecystic fluid. CBD: 5 mm , within normal limits. Portal vein: The portal vein demonstrates normal hepatopetal flow. The portal vein measures 7 mm. IMPRESSION: Cholelithiasis without sonographic evidence of cholecystitis. [facility]-[id number] Performing Organization Address City/[facility] Phone Number [facility] [address] [place] [address] ECG 12 lead (01/15/2018 9:36 AM CDT) Ventricular rate 82 [facility] Atrial rate 82 [facility] [place] interval 142 [facility] QRSD interval 88 [facility] QT interval 368 [facility] QTC interval 429 [facility] P axis 1 75 [facility] QRS axis 1 34 [facility] T wave axis 56 [facility] EKG impression Normal sinus [facility] MUSE rhythm-Normal ECG-In automated comparison with ECG of 10-OCT-2013 18:49,-No significant change was found- Specimen Performing Organization Address City/[facility] Phone Number [facility] MUSE [address] [place] [address] after 11/10/2017 Insurance Payer Benefit Plan / Subscriber ID Effective Dates Phone Address Type Group MEDICARE MEDICARE PART A xxxxxxxxxxx 1993-Present [place], [place] Medicare AND B
--- OUTSIDE RECORDS SUMMARY | 2018-11-11 15:05 | XMS REPORT | Clinical Summary ---
:1965 Author Organization [facility] Address [address] [place] [address] Care Team Providers Name Role Phone Terrence [...] Not on file Results Not on fileafter 11/10/2017 Insurance Payer Benefit Plan / Group Subscriber ID Type Phone Address [employer] [facility]
--- NOTE | 2018-11-11 17:56 | ER ---
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 Transition of care: patient was not received from another setting of care. Onset of symptoms was October 2018. Risk Assessment: Do you want to hurt yourself or someone else? Patient reports no desire to harm self or others. Initial Sepsis Screen: Does the patient meet any 2 criteria? No. Patient's initial sepsis screen is negative. Does the patient have a suspected source of infection? No. Patient's initial sepsis screen is negative. Care prior to arrival: None. 15:11 Method Of Arrival: Ambulatory aa5 15:11 Acuity: COBY 5 aa5 Historical: - Allergies: 15:13 No Known Allergies; aa5 - PMHx: 15:13 Gall Stones; history of dialysis; Hypertension; Pancreatitis; aa5 - PSHx: 15:13 Cholecystectomy; kidney transplant; aa5 - Immunization history:: Adult Immunizations unknown. - Social history:: Smoking status: Patient/guardian denies using tobacco. - Ebola Screening: : No symptoms or risks identified at this time. Screenin:46 Abuse screen: Denies threats or abuse. Denies injuries from another. Nutritional ss screening: No deficits noted. Tuberculosis screening: Never had TB. Fall Risk None identified. Assessment: 17:15 General: Appears in no apparent distress. comfortable, Behavior is calm, cooperative. ss Pain: Denies pain. Neuro: Level of Consciousness is awake, alert, obeys commands, Oriented to person, place, time, situation. Cardiovascular: Capillary refill < 3 seconds is brisk in bilateral Patient's skin is warm and dry. Respiratory: Airway is patent Respiratory effort is even, unlabored, Respiratory pattern is regular, symmetrical. EENT: Oral mucosa is moist. Derm: Skin is intact, is healthy with good turgor, Skin is dry, Skin is pink, warm \\T\\ dry. normal. Derm: dry, flaking skin noted to bilateral hands. Patient reports this has been going on for 2 weeks. Musculoskeletal: Circulation, motion, and sensation intact. Range of motion: intact in all extremities, Swelling absent. 17:46 Reassessment: Awaiting for provider to see patient. Patient is content at this time. ss Warm blanket given for comfort, watching TV on his cellphone. Vital Signs: 15:14 BP 144 / 89; Pulse 78; Resp 16 S; Temp 98.5(O); Pulse Ox 97% on R/A; Pain 0/10; aa5 15:14 Weight 94.35 kg (M); aa5 ED Course: 15:03 Patient arrived in ED. as 15:11 Arm band placed on. aa5 15:12 Triage completed. aa5 17:46 Patient has correct armband on for positive identification. Bed in low position. Call ss light in reach. 17:46 No provider procedures requiring assistance completed. Patient did not have IV access ss during this emergency room visit. 17:50 Latesha Zhao FNP-C [facility]. kb 17:50 Panfilo Peter MD is Attending Physician. kb 18:09 Tere Powell, PRINCESS is Primary Nurse. ss Administered Medications: No medications were administered Outcome: 17:55 Discharge ordered by MD. kb 18:09 Discharged to home ambulatory. ss 18:09 Condition: good 18:09 Discharge instructions given to patient, Instructed on discharge instructions, follow up and referral plans. medication usage, Demonstrated understanding of instructions, follow-up care, medications, Prescriptions given X 1. 18:11 Patient left the ED. ss Signatures: Latesha Zhao FNP-C FNP-Ckb Martinez, Amelia as Calderon, Audri, RN RN [facility] Tere Powell, PRINCESS RN ss
--- NOTE | 2018-11-11 17:56 | EDPHYS ---
Physician Documentation [facility] Name: Shoaib Freitas Jr Age: 53 yrs Sex: Male : 1965 Arrival Date: 11/11/2018 Time: 15:03 Bed Treatment Private MD: ED Physician Panfilo Peter HPI: 11/12 02:37 This 53 yrs old Black Male presents to ER via Ambulatory with complaints of Rash. kb 02:37 The patient's rash thought to be caused by an unknown cause. The rash is located on the kb right hand and left hand. The rash can be described as crusted. 02:38 Onset: The symptoms/episode began/occurred 2 week(s) ago. Associated signs and kb symptoms: Pertinent positives: itching. Severity of symptoms: At their worst the symptoms were moderate in the emergency department the symptoms are unchanged. The patient has not experienced similar symptoms in the past. The patient has not recently seen a physician. Pt reports he developed a rash between all of his fingers about 2 weeks ago. Reports itching and skin peeling. Historical: - Allergies: 11/11 15:13 No Known Allergies; aa5 - PMHx: 15:13 Gall Stones; history of dialysis; Hypertension; Pancreatitis; aa5 - PSHx: 15:13 Cholecystectomy; kidney transplant; aa5 - Immunization history:: Adult Immunizations unknown. - Social history:: Smoking status: Patient/guardian denies using tobacco. - Ebola Screening: : No symptoms or risks identified at this time. ROS: 11/12 02:38 Constitutional: Negative for fever, chills, and weight loss, ENT: Negative for injury, kb pain, and discharge, Neck: Negative for injury, pain, and swelling, Cardiovascular: Negative for chest pain, palpitations, and edema, Respiratory: Negative for shortness of breath, cough, wheezing, and pleuritic chest pain, Abdomen/GI: Negative for abdominal pain, nausea, vomiting, diarrhea, and constipation, Back: Negative for injury and pain, MS/Extremity: Negative for injury and deformity, Neuro: Negative for headache, weakness, numbness, tingling, and seizure. Skin: Positive for rash, of the left hand and right hand. Exam: 02:38 Constitutional: This is a well developed, well nourished patient who is awake, alert, kb and in no acute distress. Head/Face: Normocephalic, atraumatic. ENT: Nares patent. No nasal discharge, no septal abnormalities noted. Tympanic membranes are normal and external auditory canals are clear. Oropharynx with no redness, swelling, or masses, exudates, or evidence of obstruction, uvula midline. Mucous membranes moist. Neck: Trachea midline, no thyromegaly or masses palpated, and no cervical lymphadenopathy. Supple, full range of motion without nuchal rigidity, or vertebral point tenderness. No Meningismus. Chest/axilla: Normal chest wall appearance and motion. Nontender with no deformity. No lesions are appreciated. Cardiovascular: Regular rate and rhythm with a normal S1 and S2. No gallops, murmurs, or rubs. Normal PMI, no JVD. No pulse deficits. Respiratory: Lungs have equal breath sounds bilaterally, clear to auscultation and percussion. No rales, rhonchi or wheezes noted. No increased work of breathing, no retractions or nasal flaring. Abdomen/GI: Soft, non-tender, with normal bowel sounds. No distension or tympany. No guarding or rebound. No evidence of tenderness throughout. MS/ Extremity: Pulses equal, no cyanosis. Neurovascular intact. Full, normal range of motion. Neuro: Awake and alert, GCS 15, oriented to person, place, time, and situation. Cranial nerves II-XII grossly intact. Motor strength 5/5 in all extremities. Sensory grossly intact. Cerebellar exam normal. Normal gait. 02:38 Skin: rash a moderate rash is noted, consistent with tinea manuum, on the left hand and right hand. Vital Signs: 11/11 15:14 BP 144 / 89; Pulse 78; Resp 16 S; Temp 98.5(O); Pulse Ox 97% on R/A; Pain 0/10; aa5 15:14 Weight 94.35 kg (M); aa5 MDM: 17:50 Patient medically screened. kb 11/12 02:38 Data reviewed: vital signs, nurses notes. Data interpreted: Pulse oximetry: on room air kb is 97 %. Interpretation: normal. Counseling: I had a detailed discussion with the patient and/or guardian regarding: the historical points, exam findings, and any diagnostic results supporting the discharge/admit diagnosis, the need for outpatient follow up, a family practitioner, to return to the emergency department if symptoms worsen or persist or if there are any questions or concerns that arise at home. Administered Medications: No medications were administered Disposition: 11/11/18 17:55 Discharged to Home. Impression: Tinea manuum. - Condition is Stable. - Discharge Instructions: Athlete's Foot, [id number]. - Prescriptions for Clotrimazole 1 % Topical Cream - Apply to affected area 1 application by TOPICAL route every 12 hours; 15 gram. - Medication Reconciliation Form, Thank You Letter, Antibiotic Education, Prescription Opioid Use form. - Follow up: Emergency Department; When: As needed; Reason: Worsening of condition. Follow up: Private Physician; When: 2 - 3 days; Reason: Recheck today's complaints, Continuance of care, Re-evaluation by your physician. Addendum: 11/15/2018 08:42 Co-signature as Attending Physician, Panfilo Peter MD I agree with the assessment and k dr plan of care. Signatures: Latesha Zhao, ASPHALT MIXING MACHINE OPERATOR-C ASPHALT MIXING MACHINE OPERATOR-Ckb Panfilo Peter MD MD [facility] Chantell Agrawal, RN RN aa5 Tere Powell RN RN ss Corrections: (The following items were deleted from the chart) 11/11 18:11 17:55 11/11/2018 17:55 Discharged to Home. Impression: Tinea manuum. Condition is ss Stable. Forms are Medication Reconciliation Form, Thank You Letter, Antibiotic Education, Prescription Opioid Use. Follow up: Emergency Department; When: As needed; Reason: Worsening of condition. Follow up: Private Physician; When: 2 - 3 days; Reason: Recheck today's complaints, Continuance of care, Re-evaluation by your physician. kb
[2018-11-11 19:00] VITALS: BP 144/89; TEMP 98.5; O2SAT 97
== END 2018-11-11 18:11 | disposition home or self-care (01) ==
LOC: ER 15:01
DX: B35.2 Tinea manuum (principal); I10 Essential (primary) hypertension; Z94.0 Kidney transplant status
CPT/HCPCS: 99282

== ENCOUNTER 2018-11-15 11:08 | Emergency (ER) | payer OTHER ==
--- OUTSIDE RECORDS SUMMARY | 2018-11-15 11:11 | XMS REPORT | Clinical Summary ---
:1965 Author Organization [facility] Address [address] [place] [address] Care Team Providers Name Role Phone Juan [...] phosphorus metabolism 12/08/2017 Intake Access N/A after 11/14/2017 Social History Tobacco Use Types Packs/Day Years [...] CDT procedure are in the results section. AR AN ELECTIVE Routine 01/16/2018 2:08 ENDOTRACHEAL AIRWAY PM CDT Procedure Note - Ethan Beckman CRNA - 01/16/2018 2:08 PM CDT Airway Date/Time: 01/16/2018 1:41 AM Performed by: ETHAN BECKMAN Authorized by: DOMINICK DUMONT Location: OR Urgency: Elective Performed by: resident/CUSHION PADDER/AA Preoxygenated with 100% O2: Yes C-spine Precautions [...] procedure are in the results section. after 11/14/2017 Results Urinalysis screen and microscopy, with reflex to culture (07/19/2018 9:00 AM CDT)Only the most recent of2 resultswithin the time period is included. Specimen site Clean catch [facility] Color, UA Yellow [facility] Appearance, UA Clear [facility] Specific gravity, 1.021 1.001 - 1.035 [facility] pH, UA 5.0 5.0 - 8.5 [facility] Protein, UA 2+ (A) Negative [facility] Glucose, UA Negative Negative [facility] Ketones, UA Negative Negative [facility] Bilirubin, UA Negative Negative [facility] Blood, UA Moderate (A) Negative [facility] Nitrite, UA Negative Negative [facility] Urobilinogen, UA <2.0 <2.0 [facility] Leukocyte esterase, Negative Negative [facility] WBC, UA 1 0 - 1 /HPF [facility] RBC, UA 2 0 - 5 /HPF [facility] Bacteria, UA Few None seen [facility] Yeast, UA None seen [facility] Yeast with None seen [facility] pseudohyphae, [facility] Hyaline casts, UA 4 /LPF [facility] Specimen Urine Performing Organization Address City/State/Zipcode Phone Number [facility]OLOG[facility] AND [address] [place] [phone] [place] [phone] Estimated GFR (07/19/2018 9:00 AM CDT)Only the most recent of7 resultswithin the time period is included. Pathologist [facility] Estimated GFR 82 mL/min/1.73 [facility] Comment: [address] CatergoryUnitsInterpretation G1 >=90 Normal or high G2 60-89Mildly decreased [id number] to moderately decreased [id number] to severely decreased G4 15-29Severely decreased G5 <15Kidney failure The eGFR was calculated using the Chronic Kidney Disease Epidemiology Collaboration (CKD-EPI) equation. Interpretation is based on recommendations of the National Kidney Foundation-Kidney Disease Outcomes Quality Initiative (NKF-KDOQI) published in 2014. Specimen Plasma specimen Performing Organization Address City/State/Zipcode Phone Number [facility]OLOG[facility] AND [address] [place] [address] Cyclosporine level, random (07/19/2018 9:00 AM CDT)Only the most recent of3 resultswithin the time period is included. [facility] Cyclosporine 418 ng/mL [facility] Comment: HOSPITAL Unless administered by continuous IV drip, collect a purple top tube just before the next dose. Therapeutic range of approximately 100-500 varies mainly with type of transplant, use of other immunosuppressive agents, and evidence of toxicity or rejection. Test performed using [employer] chemiluminescent microparticle immunoassay for Cyclosporine on the BIN PACKER i System. Specimen Blood Performing Organization Address City/State/Zipcode Phone Number [facility] PATHOLOGY AND [address] [place] [address] Protein, urine, random (07/19/2018 9:00 AM CDT)Only the most recent of2 resultswithin the time period is included. Pathologist [facility] Protein, urine random 181 mg/dL [facility] Specimen Urine Performing Organization Address City/[facility] Phone Number [facility]OLOG[facility] AND [address] [place] [phone] [address] Creatinine level, urine, random (07/19/2018 9:00 AM CDT)Only the most recent of2 resultswithin the time period is included. Creatinine, urine, 197 mg/dL [facility] HOSPITAL Specimen Urine Performing Organization Address [facility] Phone Number [facility] AND [address] [place] [phone] [address] CBC with platelet and differential (07/19/2018 9:00 AM CDT)Only the most recent of6 resultswithin the time period is included. WBC 9.62 4.50 - 11.00 [facility] k/uL [facility] RBC 4.42 4.40 - 6.00 [facility] m/uL [facility] HGB 14.0 14.0 - 18.0 [facility] g/dL [facility] HCT 42.4 41.0 - 51.0 % [facility] MCV 95.9 82.0 - 100.0 [facility] MCH 31.7 27.0 - 34.0 pg [facility] MCHC 33.0 31.0 - 37.0 [facility] RDW - SD 41.3 37.0 - 55.0 fL [facility] MPV 9.3 8.8 - 13.2 fL [facility] Platelet count 284 150 - 400 k/uL [facility] Nucleated RBC 0.00 /100 WBC [facility] Neutrophils 57.6 39.0 - 69.0 % [facility] Lymphocytes 28.9 25.0 - 45.0 % [facility] Monocytes 8.9 0.0 - 10.0 % [facility] Eosinophils 3.4 0.0 - 5.0 % [facility] Basophils 0.8 0.0 - 1.0 % [facility] Immature granulocytes 0.4Comment: 0.0 - 1.0 % [facility] "Immature HOSPITAL granulocytes" (promyelocytes , myelocytes, metamyelocytes ) Specimen Blood Performing Organization Address [facility] Phone Number [facility] AND [address] [place] [phone] [place] [phone] Urine culture (07/19/2018 9:00 AM CDT)Only the most recent of2 resultswithin the time period is included. Urine culture SEE COMMENTComment: [facility] Bacteriuria screen HOSPITAL negative. Specimen Performing Organization Address [facility] Phone Number [facility] AND [address] [place] [address] Uric acid level (07/19/2018 9:00 AM CDT)Only the most recent of2 resultswithin the time period is included. Uric acid 6.1 3.4 - 7.0 mg/dL [facility] Specimen Plasma specimen Performing Organization Address [facility] Phone Number [facility] AND [address] [place] [address] Phosphorus level (07/19/2018 9:00 AM CDT)Only the most recent of4 resultswithin the time period is included. Phosphorus 2.1 (L) 2.4 - 4.5 mg/dL [facility] Specimen Plasma specimen Performing Organization Address [facility] Phone Number [facility] AND [address] [place] [address] Magnesium level (07/19/2018 9:00 AM CDT)Only the most recent of4 resultswithin the time period is included. Magnesium 1.8 1.6 - 2.6 mg/dL [facility] Specimen Plasma specimen Performing Organization Address [facility] Phone Number [facility] AND [address] [place] [phone] [place] [address] LDH (07/19/2018 9:00 AM CDT)Only the most recent of2 resultswithin the time period is included. LDH 160 87 - 225 U/L [facility] Specimen Plasma specimen Performing Organization Address City/State/Zipcode Phone Number [facility]OLOGY AND [address] [place] [phone] [place] [address] Comprehensive metabolic panel (07/19/2018 9:00 AM CDT)Only the most recent of4 resultswithin the time period is included. Sodium 138 135 - 148 [facility] mEq/L [facility] Potassium 4.3 3.5 - 5.0 [facility] mEq/L [facility] Chloride 103 98 - 112 mEq/L [facility] CO2 26 24 - 31 mEq/L [facility] Anion gap 9@ANIO 7 - 15 mEq/L [facility] BUN 15 6 - 20 mg/dL [facility] Creatinine 1.18 0.70 - 1.20 [facility] mg/dL [facility] Glucose 106 (H) 65 - 99 mg/dL [facility] Calcium 10.2 8.3 - 10.2 [facility] mg/dL [facility] Protein 7.6 6.3 - 8.3 g/dL [facility] Comment: HOSPITAL [place] 4.6-7.0 g/dL 1 week 4.4-7.6 g/dL 7 months-1year5.1-7.3 g/dL 1-2 years5.6-7.5 g/dL >3 years6.0-8.0 g/dL 18-150 6.3-8.3 g/dL Albumin 3.6 3.5 - 5.0 g/dL [facility] A/G ratio 0.9 0.7 - 3.8 [facility] Alkaline phosphatase 84 40 - 129 U/L [facility] AST 21 10 - 50 U/L [facility] ALT 24 5 - 50 U/L [facility] Total bilirubin 0.5 0.0 - 1.2 [facility] mg/dL [facility] Specimen Plasma specimen Performing Organization Address City/State/Zipcode Phone Number [facility] PATHOLOGY AND [address] [place] [address] [address] Basic metabolic panel (01/19/2018 4:00 AM CDT)Only the most recent of3 resultswithin the time period is included. Sodium 137 135 - 148 mEq/L [facility]OLOGY AND [facility]IC [facility]ICINE Potassium 3.8 3.5 - 5.0 mEq/L [facility]OLOG[facility] Chloride 101 98 - 112 mEq/L [facility] CO2 27 24 - 31 mEq/L [facility] Anion gap 9@ANIO 7 - 15 mEq/L [facility]OLOG[facility] AND [facility] BUN 14 6 - 20 mg/dL [facility]IC[facility] Creatinine 1.03 0.70 - 1.20 mg/dL [facility]OLOG[facility]ICINE Glucose 91 65 - 99 mg/dL [facility]OLOGY AND [facility]ICINE Calcium 9.6 8.3 - 10.2 mg/dL [facility]OLOGY AND GENOMIC MEDICINE Specimen Plasma specimen Performing Organization Address [facility] Phone Number [facility]OLOGY AND [address] [place] [address] [facility] MEDICINE [place] < 1 Hour (01/16/2018 [...] mGy Tech: [id number] Performing Organization Address City/[facility] Phone Number [facility] [address] [place] [address] Surgical pathology request (01/16/2018 8:46 AM CDT) [facility] PATHOLOGY AND GENOMIC MEDICINE Surgical pathology See link below [facility] OF report for PDF Lab PATHOLOGY AND Report GENOMIC MEDICINE Result status This is Final [facility] Report for PATHOLOGY AND [id number] GENOMIC MEDICINE Specimen Performing Organization Address City/[facility] Phone Number [facility] OF PATHOLOGY AND [address] [place] [address] GENOMIC MEDICINE Urinalysis, automated with microscopy (01/15/2018 6:50 PM CDT) Color, UA Yellow [facility]OLOGY AND [facility] MEDICINE Appearance, UA Clear [facility] PATHOLOGY AND GENOMIC MEDICINE Specific gravity, UA 1.028 1.001 - 1.035 [facility]OLOG[facility]IC[facility] pH, UA 5.0 5.0 - 8.5 [facility] PATHOLOGY AND [facility]ICINE Protein, UA 3+ (A) Negative [facility] PATHOLOGY AND [facility] MEDICINE Glucose, UA Negative Negative [facility]OLOGY AND [facility]ICINE Ketones, UA 2+ (A) Negative [facility] PATHOLOGY AND [facility] MEDICINE Bilirubin, UA Negative Negative [facility] PATHOLOGY AND [facility] MEDICINE Blood, UA Large (A) Negative [facility] PATHOLOGY AND [facility] MEDICINE Nitrite, UA Negative Negative [facility] PATHOLOGY AND [facility] MEDICINE Urobilinogen, UA <2.0 <2.0 [facility] PATHOLOGY AND [facility]ICINE Leukocyte esterase, Negative Negative [facility] OF UA PATHOLOGY AND GENOMIC MEDICINE Epithelial cells, UA 1 /HPF [facility]OLOG[facility] AND [facility] MEDICINE WBC, UA 2 (H) 0 - 1 /HPF [facility] PATHOLOGY AND [facility]IC MEDICINE RBC, UA 2 0 - 5 /HPF [facility]OLOGY AND [facility] MEDICINE Bacteria, UA Few None seen [facility]OLOGY AND [facility] MEDICINE Hyaline casts, UA 7 /LPF [facility]OLOG[facility] AND [facility] MEDICINE Yeast, UA None seen [facility] PATHOLOGY AND GENOMIC MEDICINE Yeast with None seen [facility] OF pseudohyphae, [facility] PATHOLOGY AND GENOMIC MEDICINE Specimen Urine - Urine, catheter Performing Organization Address City/[facility]/Zipcode Phone Number [facility]PARTMENT OF PATHOLOGY AND [address] [place] [address] GENOMIC MEDICINE XR Thoracic Spine 2 Vw [...] acute osseous abnormality of the thoracic spine. [id number] Procedure Note Hm Interface, Radiology Results Incoming [...] acute osseous abnormality of the thoracic spine. [id number] Performing Organization Address City/State/Zipcode Phone Number [facility] [address] [place] [address] US Renal (01/15/2018 4:19 PM CDT) Specimen Narrative Performed At EXAMINATION:US RENAL, US RENAL TRANSPLANT DOPPLER [facility] CLINICAL HISTORY:Hematuriarenal parenchymal cause suspected, patient has hematuriawe need renal US of the kidney Tx to RO mass and also renal [facility] [place] kidneys to rule out mass TECHNIQUE: Sonographic images of both benton kidneys and the left iliac fossa renal [...] end-stage renal disease. Small cyst lower pole benton left kidney. Unremarkable left iliac fossa renal transplant with normal renal Doppler examination. [id number] Procedure Note Hm Interface, Radiology Results Incoming - 01/15/2018 4:36 PM CDT EXAMINATION: US RENAL, US RENAL TRANSPLANT DOPPLER CLINICAL HISTORY: Hematuria renal parenchymal cause suspected, patient has hematuria we need renal US of the kidney Tx to RO mass and also renal [facility] [place] kidneys to rule out mass TECHNIQUE: Sonographic images of both benton kidneys and the left iliac fossa renal [...] end-stage renal disease. Small cyst lower pole benton left kidney. Unremarkable left iliac fossa renal transplant with normal renal Doppler examination. [id number] Performing Organization Address City/State/Zipcode Phone Number [facility] [address] [place] [address] US Renal Transplant Doppler (01/15/2018 4:12 PM CDT) Specimen Narrative Performed At EXAMINATION:US RENAL, US [facility] CLINICAL HISTORY:Hematuriarenal parenchymal cause suspected, patient has hematuriawe need renal US of the kidney Tx to RO mass and also renal [facility] [place] kidneys to rule out mass TECHNIQUE: Sonographic images of both benton kidneys and the left iliac fossa renal [...] end-stage renal disease. Small cyst lower pole benton left kidney. Unremarkable left iliac fossa renal transplant with normal renal Doppler examination. [id number] Procedure Note [facility], Radiology Results Incoming - 01/15/2018 4:36 PM CDT EXAMINATION: US RENAL, US RENAL TRANSPLANT DOPPLER CLINICAL HISTORY: Hematuria renal parenchymal cause suspected, patient has hematuria we need renal US of the kidney Tx to RO mass and also renal [facility] [place] kidneys to rule out mass TECHNIQUE: Sonographic images of both benton kidneys and the left iliac fossa renal [...] end-stage renal disease. Small cyst lower pole benton left kidney. Unremarkable left iliac fossa renal transplant with normal renal Doppler examination. [id number] Performing Organization Address [facility] Phone Number [facility] [address] [place] [address] XR Chest 1 Vw Portable (01/15/2018 11:46 AM CDT) Specimen Narrative Performed At EXAMINATION:XR CHEST 1 VW PORTABLE [facility] CLINICAL HISTORY:Chest Pain COMPARISON:None. IMPRESSION: The lungs and pleural spaces are clear.The cardiomediastinal silhouette is within normal limits.There is no significant skeletal finding. [id number] Procedure Note Interface, Radiology Results Incoming - 01/15/2018 11:52 AM CDT EXAMINATION: XR CHEST 1 VW PORTABLE CLINICAL HISTORY: Chest Pain COMPARISON: None. IMPRESSION: The lungs and pleural spaces are clear. The cardiomediastinal silhouette is within normal limits. There is no significant skeletal finding. [id number] Performing Organization Address [facility] Phone Number [employer] [facility] [address] [place] [address] Troponin (01/15/2018 11:21 AM CDT) Troponin <0.30 0.00 - 0.30 [facility] Comment: ng/mL PATHOLOGY AND 0.30 - 1.49 ng/mlMay indicate increased risk of acute GENOMIC MEDICINE coronary syndrome. >=1.5 ng/mlConsistent with acute myocardial infarction. The diagnostic value of a single normal or non-diagnostic result is questionable.Serial samples at 2-6 hour intervals are required to rule out acute myocardial injury. Specimen Plasma specimen Performing Organization Address [facility]/Zipcode Phone Number [facility] PATHOLOGY AND [address] [place] [address] Partial thromboplastin time, activated (01/15/2018 11:21 AM CDT) Pathologist [facility] PTT 28.1 23.0 - 36.0 [facility] Comment: sec PATHOLOGY AND PTT therapeutic range for unfractionated heparin is [facility] 61.0-112.0 seconds which corresponds to Anti-Xa 0.3-0.7 U/ml. Specimen Blood Performing Organization Address [facility] Phone Number [facility]OLOGY AND [address] [place] [address] Prothrombin time with INR (01/15/2018 11:21 AM CDT) [facility] Prothrombin time 13.8 12.0 - 15.0 [facility] OF sec PATHOLOGY AND [facility] MEDICINE INR 1.0 [facility] Comment: PATHOLOGY AND The International Normalized Ratio (INR) is a therapeutic GENOMIC MEDICINE monitoring tool for patients who are stable on oral anticoagulant therapy. An INR of 2.0-3.0 is suggested for deep vein thrombosis/pulmonary embolism. Specimen Blood Performing Organization Address [facility] Phone Number [facility] PATHOLOGY AND [address] [place] [address] B natriuretic peptide (01/15/2018 11:21 AM CDT) Pathologist [facility] BNP 4 0 - 100 pg/mL [facility] PATHOLOGY AND GENOMIC MEDICINE Specimen Blood Performing Organization Address [facility] Phone Number [facility] OF PATHOLOGY AND [address] [place] [address] Lipase level (01/15/2018 11:21 AM CDT) Lipase 25 13 - 60 U/L [facility] OF PATHOLOGY AND GENOMIC MEDICINE Specimen Plasma specimen Performing Organization Address [facility] Phone Number [facility] PATHOLOGY AND [address] [place] [address] US Gallbladder (01/15/2018 11:14 AM CDT) Specimen Narrative Performed At EXAMINATION:US GALLBLADDER [facility] CLINICAL HISTORY:Cholelithiasis COMPARISON:None. FINDINGS: Gallbladder: Gallbladder contains multiple stones. There is no wall thickening or pericholecystic fluid. CBD:5 mm , within normal limits. Portal vein: The portal vein demonstrates normal hepatopetal flow. The portal vein measures 7 mm. IMPRESSION: Cholelithiasis without sonographic evidence of cholecystitis. [id number] Procedure Note Hm Interface, Radiology Results Incoming - 01/15/2018 11:22 AM CDT EXAMINATION: US GALLBLADDER CLINICAL HISTORY: Cholelithiasis COMPARISON: None. FINDINGS: Gallbladder: Gallbladder contains multiple stones. There is no wall thickening or pericholecystic fluid. CBD: 5 mm , within normal limits. Portal vein: The portal vein demonstrates normal hepatopetal flow. The portal vein measures 7 mm. IMPRESSION: Cholelithiasis without sonographic evidence of cholecystitis. [id number] Performing Organization Address City/[facility] Phone Number [facility] [address] [place] [address] ECG 12 lead (01/15/2018 9:36 AM CDT) Ventricular rate 82 [facility] Atrial rate 82 [facility] AR interval 142 [facility] QRSD interval 88 [facility] QT interval 368 [facility] QTC interval 429 [facility] P axis 1 75 [facility] QRS axis 1 34 [facility] T wave axis 56 [facility] EKG impression Normal sinus [facility] rhythm-Normal ECG-In automated comparison with ECG of 10-OCT-2013 18:49,-No significant change was found- Specimen Performing Organization Address City/[facility] Phone Number [facility] [address] [place] [address] after 11/14/2017 Insurance Payer Benefit Plan / Subscriber ID Effective Dates Phone Address Type Group MEDICARE MEDICARE PART A xxxxxxxxxxx 1993-Present [place], [place] Medicare AND B
--- OUTSIDE RECORDS SUMMARY | 2018-11-15 11:11 | XMS REPORT | Clinical Summary ---
:1965 Author Organization [facility] Address [address] [place] [address] Care Team Providers Name Role Phone Terrence [...] Not on file Results Not on fileafter 11/14/2017 Insurance Payer Benefit Plan / Group Subscriber ID Type Phone Address [employer] [facility]
[2018-11-15 11:52] LABS: Protime INR 0.96
[2018-11-15] MEDS ORDERED: ASPIRIN 81 MG CHEWABLE TABLET ONE (12:00)
[2018-11-15] MEDS ORDERED: MORPHINE 4 MG/ML SYR ONE (12:01)
[2018-11-15] MEDS ORDERED: ONDANSETRON 4 MG/2 ML VIAL ONE (12:01)
[2018-11-15 12:06] LABS: Absolute Lymphocytes (CBC) 2.4 K/uL (0.7-4.9); Basophils % 0.6 % (0-1.3); Hematocrit 36.5 % (39.6-49.0); Lymphocytes % 27.5 % (15.3-44.8); RBC Red Blood Cell Count 3.87 M/uL (4.33-5.43)
[2018-11-15 12:16] LABS: ALT/SGPT 28 U/L (12-78); AST/SGOT 21 U/L (15-37); Albumin 3.4 g/dL (3.4-5.0); Alkaline Phosphatase 72 U/L (45-117); BUN Blood Urea Nitrogen 14 mg/dL (7-18); Bicarbonate 25 mmol/L (21-32); Bilirubin Direct < 0.1 mg/dL (0-0.2); Bilirubin Total 0.4 mg/dL (0.2-1.0); Glucose Level 139 mg/dL (74-106); Magnesium 1.9 mg/dL (1.8-2.4); NT PRO-BNP 265 pg/mL (<125); Potassium 3.5 mmol/L (3.5-5.1); Protein, Total 7.1 g/dL (6.4-8.2); Sodium Level 141 mmol/L (136-145); Troponin (Emerg Dept Use Only) < 0.02 ng/mL (0.0-0.045)
--- NOTE | 2018-11-15 12:56 | RAD REPORT ---
EXAM DESCRIPTION: CT - Angio Aorta For Dissection - 11/15/2018 12:40 pm CLINICAL HISTORY: Stabbing chest pain in the upper back, vomiting, history kidney transplant and pr ior cholecystectomy COMPARISON: Chest films same date TECHNIQUE: Dynamically enhanced 3 mm thick images of the chest, abdomen, and upper pelvis were obtai geovany during administration of approximately 100mL Isovue 370 IV contrast. Sagittal and coronal reconst ruction images were generated using MIP and reviewed. Exam utilizes a protocol to evaluate entire cou rse of the aorta. All CT scans are performed using dose optimization technique as appropriate and may include automated exposure control or mA/KV adjustment according to patient size. FINDINGS: No dissection or aortic aneurysm seen. Ascending aorta is 3.0 centimeter in diameter. Aort a is 2.3 cm at the arch and 2.4 cm in the mid descending thoracic aorta. No periaortic fluid, mass or acute finding seen. Pulmonary arteries opacify normally. No cardiomegaly or pericardial effusion. No mass or infiltrate in the lung parenchyma. No pleural thickening, pleural effusion or pneumothorax . No abnormal mediastinal or hilar mass or lymphadenopathy seen. No chest wall mass or abnormal axillar y lymphadenopathy. Celiac and superior mesenteric arteries are normal. Contrast does opacify small [place] renal artery's . There is faint contrast opacification of the atrophic [place] kidneys. Renal artery supplying the le ft pelvic transplant kidney is fully opacified. Transplant kidney shows normal parenchymal opacificat ion. Inferior mesenteric artery is patent Solid abdominal viscera and bowel show no significant findi ngs. No mass or abnormal lymphadenopathy. No free air, free fluid or inflammatory stranding. No uri nary bladder abnormality. Prostate gland and seminal vesicles are normal range. Fat extends into the origin of the right inguinal canal. There is laxity along the left lateral abdom inal wall but no focal defect confirmed. Bony degenerative changes are present in the thoracic and lumbar spine. No compression fracture or pa thologic bone process. IMPRESSION: Negative CT scan of the aorta for acute or significant finding. No mass, lymphadenopathy or acute chest finding. No abnormality seen that would explain the patient's pain pattern. CT abdomen and pelvis imaging, as detailed above, also without acute or suspicious finding. No other significant findings on chest, abdomen and upper pelvis examination.
--- NOTE | 2018-11-15 13:02 | RAD REPORT ---
EXAM DESCRIPTION: [facility] Single View11/15/2018 12:09 pm CLINICAL HISTORY: Chest pain COMPARISON: May 2018 FINDINGS: The lungs appear clear of acute infiltrate. The heart is normal size IMPRESSION: No acute abnormalities displayed
--- NOTE | 2018-11-15 14:36 | ER ---
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 Transition of care: patient was not received from another setting of care. Onset of symptoms was November 15, 2018. Risk Assessment: Do you want to hurt yourself or someone else? Patient reports no desire to harm self or others. Initial Sepsis Screen: Does the patient meet any 2 criteria? No. Patient's initial sepsis screen is negative. Does the patient have a suspected source of infection? No. Patient's initial sepsis screen is negative. Care prior to arrival: None. 11:17 Method Of Arrival: Ambulatory 11:17 Acuity: COBY 3 hj Triage Assessment: 11:20 General: Appears in no apparent distress. uncomfortable, Behavior is calm, cooperative, hj appropriate for age. Pain: Complains of pain in chest Pain radiates to back Pain currently is 8 out of 10 on a pain scale. EENT: No signs and/or symptoms were reported regarding the EENT system. Neuro: Level of Consciousness is awake, alert, obeys commands, Oriented to person, place, time, situation, Appropriate for age. Cardiovascular: Reports chest pain. Respiratory: Airway is patent Respiratory effort is even, unlabored, Respiratory pattern is regular, symmetrical. GI: No signs and/or symptoms were reported involving the gastrointestinal system. : No signs and/or symptoms were reported regarding the genitourinary system. Derm: No signs and/or symptoms reported regarding the dermatologic system. Musculoskeletal: No signs and/or symptoms reported regarding the musculoskeletal system. Historical: - Allergies: 11:20 No Known Allergies; hj - Home Meds: 11:20 prednisone 5 mg Oral tab once daily [Active]; diltiazem HCl 240 mg Oral cpER 1 cap once hj daily for Hypertension [Active]; valsartan 40 mg Oral tab 1 tab once daily for Hypertension [Active]; - PMHx: 11:20 Gall Stones; history of dialysis; Hypertension; kidney transplant; Pancreatitis; hj - PSHx: 11:20 Cholecystectomy; kidney transplant; hj - Immunization history:: Adult Immunizations not up to date. - Social history:: Smoking status: Patient/guardian denies using tobacco, Patient/guardian denies using alcohol. - Ebola Screening: : Patient negative for fever greater than or equal to 101.5 degrees Fahrenheit, and additional compatible Ebola Virus Disease symptoms Patient denies exposure to infectious person Patient denies travel to an Ebola-affected area in the 21 days before illness onset. Screenin:20 Abuse screen: Denies threats or abuse. Denies injuries from another. Nutritional hj screening: No deficits noted. Tuberculosis screening: No symptoms or risk factors identified. Fall Risk None identified. Assessment: 11:22 Pain: Pain began aw week. hj 11:22 Reassessment: see triage for assessment;. hj 13:24 Reassessment: Patient and/or family updated on plan of care and expected duration. Pain hj level reassessed. Patient is alert, oriented x 3, equal unlabored respirations, skin warm/dry/pink. Patient states feeling better. Patient states symptoms have improved. 14:59 Reassessment: PT D/C HOME AMBULATORY, DX WITH NON-CARDIAC CP. bp Vital Signs: 11:22 BP 161 / 95; Pulse 87; Resp 18; Temp 98.9(TE); Pulse Ox 96% on R/A; Weight 94.35 kg; hj Height 5 ft. 11 in. (180.34 cm); Pain 8/10; 12:30 BP 160 / 92; Pulse 84; Resp 18; Pulse Ox 99% on R/A; hj 13:22 BP 155 / 90; Pulse 85; Resp 18; Pulse Ox 100% on R/A; hj 15:00 BP 140 / 93; Pulse 58; Resp 15; Temp 98; Pulse Ox 97% ; bp 11:22 Body Mass Index 29.01 (94.35 kg, 180.34 cm) ED Course: 11:12 Patient arrived in ED. mr 11:14 Johnie Mansfield, RN is Primary Nurse. hj 11:18 Triage completed. hj 11:21 Arm band placed on right wrist. hj 11:21 Patient has correct armband on for positive identification. Placed in gown. Bed in low hj position. Call light in reach. Side rails up X 1. delinquency counselor on. Pulse ox on. NIBP on. 11:22 Patient maintains SpO2 saturation greater than 95% on room air. hj 11:27 Panfilo Peter MD is Attending Physician. kdr 11:29 EKG done, by composite bond technician. reviewed by Sudeep Rodriguez MD. at1 11:35 Initial lab(s) drawn, by ok, sent to lab. Inserted saline lock: 22 gauge in right upper hj arm, using aseptic technique. Blood collected. 12:14 XRAY Chest (1 view) In Process Unspecified. EDMS 12:41 CT Aorta for Dissection In Process Unspecified. EDMS 12:55 Brenton Brothers PA is PHCP. jr8 13:53 Troponin (emerg Dept Use Only): Draw 2 hours after initial draw Sent. hj 14:35 Karson Thomas MD is Referral Physician. jr8 15:01 No provider procedures requiring assistance completed. IV discontinued, intact, bp bleeding controlled, No redness/swelling at site. Pressure dressing applied. Administered Medications: 11:50 Drug: morphine 4 mg Route: IVP; Site: right upper arm; hj 12:32 Follow up: Response: No adverse reaction; Pain is decreased hj 11:50 Drug: Zofran 4 mg Route: IVP; Site: right upper arm; hj 12:32 Follow up: Response: No adverse reaction hj 12:05 Not Given (Patient Refused; MD aware): Aspirin Chewable Tablet 324 mg PO once; 81 mg hj tablets x 4 14:45 Drug: TORadol - Ketorolac 15 mg Route: IVP; Site: right upper arm; hj 14:51 Follow up: Response: No adverse reaction hj Outcome: 14:36 Discharge ordered by . jr8 15:00 Discharged to home ambulatory. bp 15:00 Condition: stable 15:00 Discharge instructions given to patient, Instructed on discharge instructions, follow up and referral plans. medication usage, Demonstrated understanding of instructions, follow-up care, medications, Prescriptions given X 1. 15:01 Patient left the ED. bp Signatures: Dispatcher [employer] EDLA Panfilo Peter MD MD kdr Rivera, Eufemia mr Brenton Brothers PA PA jr8 Manda Espinal, cleaning attendant EKG Tat1 Johnie Mansfield, RN RN hj Mic Cardozo, RN RN bp
--- NOTE | 2018-11-15 14:37 | EDPHYS ---
Physician Documentation [facility] Name: Shoaib Freitas Jr Age: 53 yrs Sex: Male : 1965 Arrival Date: 11/15/2018 Time: 11:12 Bed 16 Private MD: ED Physician Panfilo Peter HPI: 11/15 12:28 This 53 yrs old Black Male presents to ER via Ambulatory with complaints of Chest Pain. kdr 12:28 The patient or guardian reports chest pain that is located primarily in the substernal kdr area, anterior chest wall, bilaterally. Onset: suddenly, 1 week(s) ago. The pain radiates to back. Associated signs and symptoms: Pertinent positives: nausea, Pertinent negatives: abdominal pain, cough, diaphoresis, dizziness, lower extremity pain, lower extremity swelling, lightheadedness, near syncope, palpitations, shortness of breath, syncope, vomiting. The chest pain is described as aching, sharp, stabbing. Duration: The patient or guardian reports multiple episodes, that are intermittent, that wax and wane, with no pattern. Modifying factors: The symptoms are alleviated by nothing. the symptoms are aggravated by nothing. Severity of pain: At its worst the pain was mild in the emergency department the pain has improved mildly. The patient has not experienced similar symptoms in the past. The patient has not recently seen a physician. Historical: - Allergies: 11:20 No Known Allergies; hj - Home Meds: 11:20 prednisone 5 mg Oral tab once daily [Active]; diltiazem HCl 240 mg Oral cpER 1 cap once hj daily for Hypertension [Active]; valsartan 40 mg Oral tab 1 tab once daily for Hypertension [Active]; - PMHx: 11:20 Gall Stones; history of dialysis; Hypertension; kidney transplant; Pancreatitis; hj - PSHx: 11:20 Cholecystectomy; kidney transplant; hj - Immunization history:: Adult Immunizations not up to date. - Social history:: Smoking status: Patient/guardian denies using tobacco, Patient/guardian denies using alcohol. - Ebola Screening: : Patient negative for fever greater than or equal to 101.5 degrees Fahrenheit, and additional compatible Ebola Virus Disease symptoms Patient denies exposure to infectious person Patient denies travel to an Ebola-affected area in the 21 days before illness onset. ROS: 12:28 Constitutional: Negative for fever, chills, and weight loss, Eyes: Negative for injury, kdr pain, redness, and discharge, ENT: Negative for injury, pain, and discharge, Neck: Negative for injury, pain, and swelling, Respiratory: Negative for shortness of breath, cough, wheezing, and pleuritic chest pain, Abdomen/GI: Negative for abdominal pain, nausea, vomiting, diarrhea, and constipation, Back: Negative for injury and pain, : Negative for injury, bleeding, discharge, and swelling, MS/Extremity: Negative for injury and deformity, Skin: Negative for injury, rash, and discoloration, Neuro: Negative for headache, weakness, numbness, tingling, and seizure activity. Psych: Negative for depression, anxiety, suicide ideation, homicidal ideation, and hallucinations, Allergy/Immunology: Negative for hives, rash, and allergies, Endocrine: Negative for neck swelling, polydipsia, polyuria, polyphagia, and marked weight changes, Hematologic/Lymphatic: Negative for swollen nodes, abnormal bleeding, and unusual bruising. 12:28 Cardiovascular: Positive for chest pain, of the anterior aspect of right upper chest, anterior aspect of left upper chest, mid-sternal area, right breast and left breast, Negative for edema, orthopnea, palpitations, paroxysmal nocturnal dyspnea, acute changes. Exam: 12:28 Constitutional: This is a well developed, well nourished patient who is awake, alert, kdr and in no acute distress. Head/Face: Normocephalic, atraumatic. Eyes: Pupils equal round and reactive to light, extra-ocular motions intact. Lids and lashes normal. Conjunctiva and sclera are non-icteric and not injected. Cornea within normal limits. Periorbital areas with no swelling, redness, or edema. Neck: Trachea midline, no thyromegaly or masses palpated, and no cervical lymphadenopathy. Supple, full range of motion without nuchal rigidity, or vertebral point tenderness. No Meningismus. Chest/axilla: Normal chest wall appearance and motion. Nontender with no deformity. No lesions are appreciated. Cardiovascular: Regular rate and rhythm with a normal S1 and S2. No gallops, murmurs, or rubs. Normal PMI, no JVD. No pulse deficits. Respiratory: Lungs have equal breath sounds bilaterally, clear to auscultation and percussion. No rales, rhonchi or wheezes noted. No increased work of breathing, no retractions or nasal flaring. Abdomen/GI: Soft, non-tender, with normal bowel sounds. No distension or tympany. No guarding or rebound. No evidence of tenderness throughout. Back: No spinal tenderness. No costovertebral tenderness. Full range of motion. Skin: Warm, dry with normal turgor. Normal color with no rashes, no lesions, and no evidence of cellulitis. MS/ Extremity: Pulses equal, no cyanosis. Neurovascular intact. Full, normal range of motion. Neuro: Awake and alert, GCS 15, oriented to person, place, time, and situation. Cranial nerves II-XII grossly intact. Motor strength 5/5 in all extremities. Sensory grossly intact. Cerebellar exam normal. Normal gait. Psych: Awake, alert, with orientation to person, place and time. Behavior, mood, and affect are within normal limits. Vital Signs: 11:22 BP 161 / 95; Pulse 87; Resp 18; Temp 98.9(TE); Pulse Ox 96% on R/A; Weight 94.35 kg; hj Height 5 ft. 11 in. (180.34 cm); Pain 8/10; 12:30 BP 160 / 92; Pulse 84; Resp 18; Pulse Ox 99% on R/A; hj 13:22 BP 155 / 90; Pulse 85; Resp 18; Pulse Ox 100% on R/A; hj 15:00 BP 140 / 93; Pulse 58; Resp 15; Temp 98; Pulse Ox 97% ; bp 11:22 Body Mass Index 29.01 (94.35 kg, 180.34 cm) MDM: 12:28 HEART Score: History: Slightly Suspicious (0), ECG: Normal (0), Age: > 45 and < 65 kdr years (1), Risk Factors: 1 or 2 risk factors (1), Troponin: < or = 1 x Normal Limit (0), Total Score = 2. The patient was not given aspirin in the Emergency Department. Aspirin not given, patient refused. SHELLIE Risk Score: TOTAL SCORE = 0. Data reviewed: vital signs, nurses notes, lab test result(s), EKG, radiologic studies. 12:56 Patient medically screened. jr8 14:01 Data interpreted: Pulse oximetry: on room air is 100 %. Interpretation: normal. jr8 Counseling: I had a detailed discussion with the patient and/or guardian regarding: the historical points, exam findings, and any diagnostic results supporting the discharge/admit diagnosis, lab results, radiology results, the need for outpatient follow up, a employment specialist/program manager, to return to the emergency department if symptoms worsen or persist or if there are any questions or concerns that arise at home. 14:35 ED course: Patient improving. Reexamined patient. Patient has identical reproducible jr8 back pain and chest pain upon palpation. Second trop negative. Pain less likely to be cardiac in nature. Will send home to f/u with Cardiology. If worse knows to come back. 11/15 11:28 Order name: Basic Metabolic Panel; Complete Time: 12:27 kdr 11/15 11:28 Order name: CBC with Diff; Complete Time: 12:27 kdr 11/15 11:28 Order name: LFT's; Complete Time: 12:27 kdr 11/15 11:28 Order name: Magnesium; Complete Time: 12:27 kdr 11/15 11:28 Order name: NT PRO-BNP; Complete Time: 12:27 kdr 11/15 11:28 Order name: PT-INR; Complete Time: 12:27 kdr 11/15 11:28 Order name: Troponin (emerg Dept Use Only); Complete Time: 12:27 kdr 11/15 11:28 Order name: XRAY Chest (1 view); Complete Time: 13:05 kdr 11/15 11:50 Order name: CT Aorta for Dissection; Complete Time: 13:05 kdr 11/15 12:28 Order name: Troponin (emerg Dept Use Only): Draw 2 hours after initial draw; Complete kdr Time: 14:35 11/15 11:28 Order name: EKG; Complete Time: 11:30 kdr 11/15 11:28 Order name: Cardiac monitoring; Complete Time: 11:38 kdr 11/15 11:28 Order name: EKG - Nurse/Tech; Complete Time: 11:38 kdr 11/15 11:28 Order name: IV Saline Lock; Complete Time: 11:38 kdr 11/15 11:28 Order name: Labs collected and sent; Complete Time: 11:38 kdr 11/15 11:28 Order name: O2 Per Protocol; Complete Time: 11:39 kdr 11/15 11:28 Order name: O2 Sat Monitoring; Complete Time: 11:39 kdr Administered Medications: 11:50 Drug: morphine 4 mg Route: IVP; Site: right upper arm; hj 12:32 Follow up: Response: No adverse reaction; Pain is decreased hj 11:50 Drug: Zofran 4 mg Route: IVP; Site: right upper arm; hj 12:32 Follow up: Response: No adverse reaction hj 12:05 Not Given (Patient Refused; MD aware): Aspirin Chewable Tablet 324 mg PO once; 81 mg hj tablets x 4 14:45 Drug: TORadol - Ketorolac 15 mg Route: IVP; Site: right upper arm; hj 14:51 Follow up: Response: No adverse reaction Disposition: 11/16 07:22 Co-signature as Attending Physician, Panfilo Peter MD I agree with the assessment and [facility] plan of care. Disposition: 11/15/18 14:36 Discharged to Home. Impression: Chest pain, unspecified. - Condition is Stable. - Discharge Instructions: Nonspecific Chest Pain. - Prescriptions for Tylenol- Codeine #3 300-30 mg Oral Tablet - take 2 tablets by ORAL route every 6 hours As needed; 12 tablet. - Medication Reconciliation Form, Thank You Letter, Antibiotic Education, Prescription Opioid Use form. - Follow up: Karson Thomas MD; When: 1 - 2 days; Reason: Recheck today's complaints, Continuance of care, Re-evaluation by your physician. - Problem is new. - Symptoms have improved. Signatures: Dispatcher [employer] EDMS Panfilo Peter MD MD [facility] Brenton Brothers PA PA jr8 Johnie Mansfield RN RN Mic Cardozo RN RN bp Corrections: (The following items were deleted from the chart) 11/15 14:47 14:35 ED course: Patient currently without chest pain. Second trop negative. Will send jr8 home to f/u with Cardiology. If worse knows to come back . jr8 15:01 14:36 11/15/2018 14:36 Discharged to Home. Impression: Chest pain, unspecified. bp Condition is Stable. Forms are Medication Reconciliation Form, Thank You Letter, Antibiotic Education, Prescription Opioid Use. Follow up: Karson Thomas; When: 1 - 2 days; Reason: Recheck today's complaints, Continuance of care, Re-evaluation by your physician. Problem is new. Symptoms have improved. jr8
[2018-11-15] MEDS ORDERED: KETOROLAC 30 MG/ML INJ ONE (14:50)
[2018-11-15 15:49] VITALS: BP 140/93; TEMP 98; O2SAT 97
--- NOTE | 2018-11-16 07:38 | EKG ---
Test Date: 2018-11-15 Test Time: 11:21:03 Tin Assorter: JANE MEASUREMENT RESULTS: Intervals: Rate: 83 OH: 154 QRSD: 102 QT: 364 QTc: 427 [place]: P: 58 OH: 154 QRS: 26 T: 41 INTERPRETIVE STATEMENTS: Normal sinus rhythm Normal ECG Compared to ECG 05/23/2018 19:35:39 No significant changes Electronically Signed On 11-16-18 07:37:28 CDT by Karson Thomas
== END 2018-11-15 15:01 | disposition home or self-care (01) ==
LOC: ER 11:08
DX: R07.9 Chest pain, unspecified (principal); I10 Essential (primary) hypertension; Z94.0 Kidney transplant status
CPT/HCPCS: 93005; 85025; 80048; 36415; 83735; 85610; 80076; 84484 ×2; 83880; 71275; 74175; 71045; 96375; 96374; 99285; Q9967; J2405

== ENCOUNTER 2018-11-26 16:29 | Inpatient (IN) | payer OTHER ==
--- OUTSIDE RECORDS SUMMARY | 2018-11-26 16:32 | XMS REPORT | Clinical Summary ---
:1965 Author Organization [facility] Address [address] [place] [id number] Care Team Providers Name Role Phone Terrence [...] Not on file Results Not on fileafter 11/25/2017 Insurance Payer Benefit Plan / Group Subscriber ID Type Phone Address [employer] [facility] xxxxxxxxx
--- OUTSIDE RECORDS SUMMARY | 2018-11-26 16:32 | XMS REPORT | Clinical Summary ---
:1965 Author Organization [facility] Address [address] [place] [address] Care Team Providers Name Role Phone Juan [...] phosphorus metabolism 12/08/2017 Intake Access N/A after 11/25/2017 Social History Tobacco Use Types Packs/Day Years [...] CDT procedure are in the results section. 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 after 11/25/2017 Results Urinalysis screen and microscopy, with reflex to culture (07/19/2018 9:00 AM CDT)Only the most recent of2 resultswithin the time period is included. Specimen site Clean catch [facility] Color, UA Yellow [facility] Appearance, UA Clear [facility] Specific gravity, 1.021 1.001 - 1.035 [facility] pH, UA 5.0 5.0 - 8.5 [facility] Protein, UA 2+ (A) Negative [facility] Glucose, UA Negative Negative [facility] Ketones, UA Negative Negative [facility] Bilirubin, UA Negative Negative [facility] Blood, UA Moderate (A) Negative [facility] Nitrite, UA Negative Negative [facility] Urobilinogen, UA <2.0 <2.0 [facility] Leukocyte esterase, Negative Negative [facility] WBC, UA 1 0 - 1 /HPF [facility] RBC, UA 2 0 - 5 /HPF [facility] Bacteria, UA Few None seen [facility] Yeast, UA None seen [facility] Yeast with None seen [facility] pseudohyphae, [facility] Hyaline casts, UA 4 /LPF [facility] Specimen Urine Performing Organization Address City/State/Zipcode Phone Number [facility] DEPARTMENT OF PATHOLOGY AND [address] [place] [phone] [place] [phone] Estimated GFR (07/19/2018 9:00 AM CDT)Only the most recent of7 resultswithin the time period is included. Pathologist [facility] Estimated GFR 82 mL/min/1.73 [facility] Comment: [address] CatergoryUnitsInterpretation G1 >=90 Normal or high G2 60-89Mildly decreased [id number] to moderately decreased R1b75-92Dtflmgdtic to severely decreased G4 15-29Severely decreased G5 <15Kidney failure The eGFR was calculated using the Chronic Kidney Disease Epidemiology Collaboration (CKD-EPI) equation. Interpretation is based on recommendations of the National Kidney Foundation-Kidney Disease Outcomes Quality Initiative (NKF-KDOQI) published in 2014. Specimen Plasma specimen Performing Organization Address City/State/Zipcode Phone Number [facility] DEPARTMENT OF PATHOLOGY AND [address] [place] [phone] Cyclosporine level, random (07/19/2018 9:00 AM CDT)Only the most recent of3 resultswithin the time period is included. [facility] Cyclosporine 418 ng/mL [facility] Comment: HOSPITAL Unless administered by continuous IV drip, collect a purple top tube just before the next dose. Therapeutic range of approximately 100-500 varies mainly with type of transplant, use of other immunosuppressive agents, and evidence of toxicity or rejection. Test performed using [employer] Technician chemiluminescent microparticle immunoassay for Cyclosporine on the EXPLORATION MANAGER i System. Specimen Blood Performing Organization Address City/State/Zipcode Phone Number [facility] DEPARTMENT OF PATHOLOGY AND [address] [place] [phone] Protein, urine, random (07/19/2018 9:00 AM CDT)Only the most recent of2 resultswithin the time period is included. Pathologist [facility] Protein, urine random 181 mg/dL [facility] Specimen Urine Performing Organization Address City/[facility] Phone Number [facility] DEPARTMENT OF PATHOLOGY AND [address] [place] [address] [address] Creatinine level, urine, random (07/19/2018 9:00 AM CDT)Only the most recent of2 resultswithin the time period is included. Creatinine, urine, 197 mg/dL [facility] Specimen Urine Performing Organization Address [facility] Cent[facility] Phone Number [facility] DEPARTMENT OF PATHOLOGY AND [address] [place] [address] [address] CBC with platelet and differential (07/19/2018 9:00 AM CDT)Only the most recent of6 resultswithin the time period is included. WBC 9.62 4.50 - 11.00 [facility] k/uL [facility] RBC 4.42 4.40 - 6.00 [facility] m/uL [facility] HGB 14.0 14.0 - 18.0 [facility] g/dL [facility] HCT 42.4 41.0 - 51.0 % [facility] MCV 95.9 82.0 - 100.0 [facility] MCH 31.7 27.0 - 34.0 pg [facility] MCHC 33.0 31.0 - 37.0 [facility] - SD 41.3 37.0 - 55.0 fL [facility] MPV 9.3 8.8 - 13.2 fL [facility] Platelet count 284 150 - 400 k/uL [facility] Nucleated RBC 0.00 /100 WBC [facility] Neutrophils 57.6 39.0 - 69.0 % [facility] Lymphocytes 28.9 25.0 - 45.0 % [facility] Monocytes 8.9 0.0 - 10.0 % [facility] Eosinophils 3.4 0.0 - 5.0 % [facility] Basophils 0.8 0.0 - 1.0 % [facility] Immature granulocytes 0.4Comment: 0.0 - 1.0 % [facility] "Immature HOSPITAL granulocytes" (promyelocytes , myelocytes, metamyelocytes ) Specimen Blood Performing Organization Address [facility] Centercode Phone Number [facility] DEPARTMENT OF PATHOLOGY AND [address] [place] [phone] [place] [phone] Urine culture (07/19/2018 9:00 AM CDT)Only the most recent of2 resultswithin the time period is included. Urine culture SEE COMMENTComment: [facility] Bacteriuria screen HOSPITAL negative. Specimen Performing Organization Address [facility] Centercode Phone Number [facility] DEPARTMENT OF PATHOLOGY AND [address] [place] [phone] Uric acid level (07/19/2018 9:00 AM CDT)Only the most recent of2 resultswithin the time period is included. Uric acid 6.1 3.4 - 7.0 mg/dL [facility] Specimen Plasma specimen Performing Organization Address [facility] Phone Number [facility] DEPARTMENT OF PATHOLOGY AND [address] [place] [phone] Phosphorus level (07/19/2018 9:00 AM CDT)Only the most recent of4 resultswithin the time period is included. Phosphorus 2.1 (L) 2.4 - 4.5 mg/dL [facility] Specimen Plasma specimen Performing Organization Address [facility] Phone Number [facility] DEPARTMENT OF PATHOLOGY AND [address] [place] [phone] Magnesium level (07/19/2018 9:00 AM CDT)Only the most recent of4 resultswithin the time period is included. Magnesium 1.8 1.6 - 2.6 mg/dL [facility] Specimen Plasma specimen Performing Organization Address [facility] Centercode Phone Number [facility] DEPARTMENT OF PATHOLOGY AND [address] [place] [phone] [place] [phone] LDH (07/19/2018 9:00 AM CDT)Only the most recent of2 resultswithin the time period is included. LDH 160 87 - 225 U/L [facility] Specimen Plasma specimen Performing Organization Address City/State/Zipcode Phone Number [facility] DEPARTMENT OF PATHOLOGY AND [address] [place] [phone] [place] [phone] Comprehensive metabolic panel (07/19/2018 9:00 AM CDT)Only the most recent of4 resultswithin the time period is included. Sodium 138 135 - 148 [facility] mEq/L [facility] Potassium 4.3 3.5 - 5.0 [facility] mEq/L [facility] Chloride 103 98 - 112 mEq/L [facility] CO2 26 24 - 31 mEq/L [facility] Anion gap 9@ANIO 7 - 15 mEq/L [facility] BUN 15 6 - 20 mg/dL [facility] Creatinine 1.18 0.70 - 1.20 [facility] mg/dL [facility] Glucose 106 (H) 65 - 99 mg/dL [facility] Calcium 10.2 8.3 - 10.2 [facility] mg/dL [facility] Protein 7.6 6.3 - 8.3 g/dL [facility] Comment: HOSPITAL [place] 4.6-7.0 g/dL 1 week 4.4-7.6 g/dL 7 months-1year5.1-7.3 g/dL 1-2 years5.6-7.5 g/dL >3 years6.0-8.0 g/dL 18-150 6.3-8.3 g/dL Albumin 3.6 3.5 - 5.0 g/dL [facility] A/G ratio 0.9 0.7 - 3.8 [facility] Alkaline phosphatase 84 40 - 129 U/L [facility] AST 21 10 - 50 U/L [facility] ALT 24 5 - 50 U/L [facility] Total bilirubin 0.5 0.0 - 1.2 [facility] mg/dL [facility] Specimen Plasma specimen Performing Organization Address City/State/Zipcode Phone Number [facility] DEPARTMENT OF PATHOLOGY AND [address] [place] [address] [address] Basic metabolic panel (01/19/2018 4:00 AM CDT)Only the most recent of3 resultswithin the time period is included. Sodium 137 135 - 148 mEq/L [facility] DEPARTMENT OF PATHOLOGY AND GENOMIC MEDICINE Potassium 3.8 3.5 - 5.0 mEq/L [facility] DEPARTMENT OF PATHOLOGY AND GENOMIC MEDICINE Chloride 101 98 - 112 mEq/L [facility] DEPARTMENT OF PATHOLOGY AND GENOMIC MEDICINE CO2 27 24 - 31 mEq/L [facility] DEPARTMENT OF PATHOLOGY AND GENOMIC MEDICINE Anion gap 9@ANIO 7 - 15 mEq/L [facility] DEPARTMENT OF PATHOLOGY AND GENOMIC MEDICINE BUN 14 6 - 20 mg/dL [facility] DEPARTMENT OF PATHOLOGY AND GENOMIC MEDICINE Creatinine 1.03 0.70 - 1.20 mg/dL [facility] DEPARTMENT OF PATHOLOGY AND GENOMIC MEDICINE Glucose 91 65 - 99 mg/dL [facility] DEPARTMENT OF PATHOLOGY AND GENOMIC MEDICINE Calcium 9.6 8.3 - 10.2 mg/dL [facility] DEPARTMENT OF PATHOLOGY AND GENOMIC MEDICINE Specimen Plasma specimen Performing Organization Address [facility] Phone Number [facility] DEPARTMENT OF PATHOLOGY AND [address] [place] [phone] [facility] MEDICINE [place] < 1 Hour (01/16/2018 [...] mGy Tech: [id number] Performing Organization Address City/[facility] Phone Number [facility] [address] [place] [address] Surgical pathology request (01/16/2018 8:46 AM CDT) [facility] DEPARTMENT OF PATHOLOGY AND GENOMIC MEDICINE Surgical pathology See link below [facility] DEPARTMENT OF report for PDF Lab PATHOLOGY AND Report GENOMIC MEDICINE Result status This is Final [facility] DEPARTMENT OF Report for PATHOLOGY AND [id number] GENOMIC MEDICINE Specimen Performing Organization Address City/[facility] Phone Number [facility] DEPARTMENT OF PATHOLOGY AND [address] [place] [address] GENOMIC MEDICINE Urinalysis, automated with microscopy (01/15/2018 6:50 PM CDT) Color, UA Yellow [facility] DEPARTMENT OF PATHOLOGY AND GENOMIC MEDICINE Appearance, UA Clear [facility] DEPARTMENT OF PATHOLOGY AND GENOMIC MEDICINE Specific gravity, UA 1.028 1.001 - 1.035 [facility] DEPARTMENT OF PATHOLOGY AND GENOMIC MEDICINE pH, UA 5.0 5.0 - 8.5 [facility] DEPARTMENT OF PATHOLOGY AND GENOMIC MEDICINE Protein, UA 3+ (A) Negative [facility] DEPARTMENT OF PATHOLOGY AND GENOMIC MEDICINE Glucose, UA Negative Negative [facility] DEPARTMENT OF PATHOLOGY AND GENOMIC MEDICINE Ketones, UA 2+ (A) Negative [facility] DEPARTMENT OF PATHOLOGY AND GENOMIC MEDICINE Bilirubin, UA Negative Negative [facility] DEPARTMENT OF PATHOLOGY AND GENOMIC MEDICINE Blood, UA Large (A) Negative [facility] DEPARTMENT OF PATHOLOGY AND GENOMIC MEDICINE Nitrite, UA Negative Negative [facility] DEPARTMENT OF PATHOLOGY AND GENOMIC MEDICINE Urobilinogen, UA <2.0 <2.0 [facility] DEPARTMENT OF PATHOLOGY AND GENOMIC MEDICINE Leukocyte esterase, Negative Negative [facility] DEPARTMENT OF UA PATHOLOGY AND GENOMIC MEDICINE Epithelial cells, UA 1 /HPF [facility] DEPARTMENT OF PATHOLOGY AND GENOMIC MEDICINE WBC, UA 2 (H) 0 - 1 /HPF [facility] DEPARTMENT OF PATHOLOGY AND GENOMIC MEDICINE RBC, UA 2 0 - 5 /HPF [facility] DEPARTMENT OF PATHOLOGY AND GENOMIC MEDICINE Bacteria, UA Few None seen [facility] DEPARTMENT OF PATHOLOGY AND GENOMIC MEDICINE Hyaline casts, UA 7 /LPF [facility] DEPARTMENT OF PATHOLOGY AND GENOMIC MEDICINE Yeast, UA None seen [facility] DEPARTMENT OF PATHOLOGY AND GENOMIC MEDICINE Yeast with None seen [facility] DEPARTMENT OF pseudohyphae, UA PATHOLOGY AND GENOMIC MEDICINE Specimen Urine - Urine, catheter Performing Organization Address City/[facility]/Zipcode Phone Number [facility] DEPARTMENT OF PATHOLOGY AND [address] [place] [address] GENOMIC MEDICINE XR Thoracic Spine 2 Vw [...] acute osseous abnormality of the thoracic spine. [facility]-[id number] Procedure Note Hm Interface, Radiology Results Incoming [...] acute osseous abnormality of the thoracic spine. [facility]-[id number] Performing Organization Address City/State/Zipcode Phone Number [facility] [address] [place] [address] [place] Renal (01/15/2018 4:19 PM CDT) Specimen Narrative Performed At EXAMINATION:US RENAL, US RENAL TRANSPLANT DOPPLER [facility] CLINICAL HISTORY:Hematuriarenal parenchymal cause suspected, patient has hematuriawe need renal US of the kidney Tx to RO mass and also renal [facility] [place] [place] kidneys to rule out mass TECHNIQUE: Sonographic images of both [place] kidneys and the left iliac fossa renal [...] end-stage renal disease. Small cyst lower pole [place] left kidney. Unremarkable left iliac fossa renal transplant with normal renal Doppler examination. [facility]-[id number] Procedure Note Hm Interface, Radiology Results Incoming - 01/15/2018 4:36 PM CDT EXAMINATION: US RENAL, US RENAL TRANSPLANT DOPPLER CLINICAL HISTORY: Hematuria renal parenchymal cause suspected, patient has hematuria we need renal US of the kidney Tx to RO mass and also renal [facility] [place] [place] kidneys to rule out mass TECHNIQUE: Sonographic images of both [place] kidneys and the left iliac fossa renal [...] end-stage renal disease. Small cyst lower pole [place] left kidney. Unremarkable left iliac fossa renal transplant with normal renal Doppler examination. [facility]-[id number] Performing Organization Address City/State/Zipcode Phone Number [facility] [address] [place] [address] [place] Renal Transplant Doppler (01/15/2018 4:12 PM CDT) Specimen Narrative Performed At EXAMINATION:US RENAL, US RENAL TRANSPLANT DOPPLER [facility] CLINICAL HISTORY:Hematuriarenal parenchymal cause suspected, patient has hematuriawe need renal US of the kidney Tx to RO mass and also renal [facility] [place] kidneys to rule out mass TECHNIQUE: Sonographic images of both [place] kidneys and the left iliac fossa renal [...] end-stage renal disease. Small cyst lower pole [place] left kidney. Unremarkable left iliac fossa renal transplant with normal renal Doppler examination. [facility]-[id number] Procedure Note [facility], Radiology Results Incoming - 01/15/2018 4:36 PM CDT EXAMINATION: US RENAL, US RENAL TRANSPLANT DOPPLER CLINICAL HISTORY: Hematuria renal parenchymal cause suspected, patient has hematuria we need renal US of the kidney Tx to RO mass and also renal [facility] [place] kidneys to rule out mass TECHNIQUE: Sonographic images of both [place] kidneys and the left iliac fossa renal [...] end-stage renal disease. Small cyst lower pole [place] left kidney. Unremarkable left iliac fossa renal transplant with normal renal Doppler examination. [id number] Performing Organization Address [facility] Phone Number [facility] [address] [place] [address] XR Chest 1 Vw Portable (01/15/2018 11:46 AM CDT) Specimen Narrative Performed At EXAMINATION:XR CHEST 1 VW PORTABLE [facility] CLINICAL HISTORY:Chest Pain COMPARISON:None. IMPRESSION: The lungs and pleural spaces are clear.The cardiomediastinal silhouette is within normal limits.There is no significant skeletal finding. [facility]-[id number] Procedure Note Interface, Radiology Results Incoming - 01/15/2018 11:52 AM CDT EXAMINATION: XR CHEST 1 VW PORTABLE CLINICAL HISTORY: Chest Pain COMPARISON: None. IMPRESSION: The lungs and pleural spaces are clear. The cardiomediastinal silhouette is within normal limits. There is no significant skeletal finding. [facility]-[id number] Performing Organization Address [facility] Phone Number [facility] [address] [place] [address] Troponin (01/15/2018 11:21 AM CDT) Troponin <0.30 0.00 - 0.30 [facility] DEPARTMENT OF Comment: ng/mL PATHOLOGY AND 0.30 - 1.49 ng/mlMay indicate increased risk of acute GENOMIC MEDICINE coronary syndrome. >=1.5 ng/mlConsistent with acute myocardial infarction. The diagnostic value of a single normal or non-diagnostic result is questionable.Serial samples at 2-6 hour intervals are required to rule out acute myocardial injury. Specimen Plasma specimen Performing Organization Address [facility]/Zipcode Phone Number [facility] DEPARTMENT OF PATHOLOGY AND [address] [place] [address] Partial thromboplastin time, activated (01/15/2018 11:21 AM CDT) Pathologist [facility] PTT 28.1 23.0 - 36.0 [facility] DEPARTMENT OF Comment: sec PATHOLOGY AND PTT therapeutic range for unfractionated heparin is [facility] 61.0-112.0 seconds which corresponds to Anti-Xa 0.3-0.7 U/ml. Specimen Blood Performing Organization Address [facility] Centercode Phone Number [facility] DEPARTMENT OF PATHOLOGY AND [address] [place] [address] Prothrombin time with INR (01/15/2018 11:21 AM CDT) [facility] Prothrombin time 13.8 12.0 - 15.0 [facility] DEPARTMENT OF sec PATHOLOGY AND [facility] MEDICINE INR 1.0 [facility] DEPARTMENT OF Comment: PATHOLOGY AND The International Normalized Ratio (INR) is a therapeutic GENOMIC MEDICINE monitoring tool for patients who are stable on oral anticoagulant therapy. An INR of 2.0-3.0 is suggested for deep vein thrombosis/pulmonary embolism. Specimen Blood Performing Organization Address [facility] Phone Number [facility] DEPARTMENT OF PATHOLOGY AND [address] [place] [address] B natriuretic peptide (01/15/2018 11:21 AM CDT) Pathologist [facility] BNP 4 0 - 100 pg/mL [facility] DEPARTMENT OF PATHOLOGY AND GENOMIC MEDICINE Specimen Blood Performing Organization Address [facility] Phone Number [facility] DEPARTMENT OF PATHOLOGY AND [address] [place] [address] Lipase level (01/15/2018 11:21 AM CDT) Lipase 25 13 - 60 U/L [facility] DEPARTMENT OF PATHOLOGY AND GENOMIC MEDICINE Specimen Plasma specimen Performing Organization Address [facility] Cent[facility]ode Phone Number [facility] DEPARTMENT OF PATHOLOGY AND [address] [place] [address] [place] Gallbladder (01/15/2018 11:14 AM CDT) Specimen Narrative Performed At EXAMINATION:US GALLBLADDER [facility] CLINICAL HISTORY:Cholelithiasis COMPARISON:None. FINDINGS: Gallbladder: Gallbladder contains multiple stones. There is no wall thickening or pericholecystic fluid. CBD:5 mm , within normal limits. Portal vein: The portal vein demonstrates normal hepatopetal flow. The portal vein measures 7 mm. IMPRESSION: Cholelithiasis without sonographic evidence of cholecystitis. [facility]-[id number] Procedure Note Hm Interface, Radiology Results Incoming - 01/15/2018 11:22 AM CDT EXAMINATION: US GALLBLADDER CLINICAL HISTORY: Cholelithiasis COMPARISON: None. FINDINGS: Gallbladder: Gallbladder contains multiple stones. There is no wall thickening or pericholecystic fluid. CBD: 5 mm , within normal limits. Portal vein: The portal vein demonstrates normal hepatopetal flow. The portal vein measures 7 mm. IMPRESSION: Cholelithiasis without sonographic evidence of cholecystitis. [facility]-[id number] Performing Organization Address City/[facility] Phone Number [facility] [address] [place] [address] ECG 12 lead (01/15/2018 9:36 AM CDT) Ventricular rate 82 [facility] Atrial rate 82 [facility] OK interval 142 [facility] QRSD interval 88 [facility] QT interval 368 [facility] QTC interval 429 [facility] P axis 1 75 [facility] QRS axis 1 34 [facility] T wave axis 56 [facility] MUSE EKG impression Normal sinus [facility] MUSE rhythm-Normal ECG-In automated comparison with ECG of 10-OCT-2013 18:49,-No significant change was found- Specimen Performing Organization Address [facility] Phone Number [facility] [id number] [place] [address] after 11/25/2017 Insurance Payer Benefit Plan / Subscriber ID Effective Dates Phone Address Type Group MEDICARE MEDICARE PART A xxxxxxxxxxx 1993-Present [place], [place] Medicare AND B
--- NOTE | 2018-11-26 17:14 | RAD REPORT ---
EXAM DESCRIPTION: US - Extremity Venous Uni Ltd - 11/26/2018 5:03 pm CLINICAL HISTORY: Pain;Swelling Leg swelling and edema. COMPARISON: Extremity Venous Uni Ltd dated 05/20/2016 FINDINGS: Right lower extremity venous system was interrogated with Doppler technique. Normal flow, compressibility and augmentation was noted. There is no DVT present. IMPRESSION: No evidence of right lower extremity deep venous thrombosis.
[2018-11-26] MEDS ORDERED: NA CHLORIDE 0.9% 2,000 ML ONE (17:17)
[2018-11-26] MEDS ORDERED: FENTANYL CITR 100 MCG/2 ML ONE (17:17)
[2018-11-26 17:49] LABS: Absolute Lymphocytes (CBC) 1.9 K/uL (0.7-4.9); Basophils % 0.6 % (0-1.3); Lymphocytes % 15.6 % (15.3-44.8); MPV 7.8 fL (7.6-11.3); RBC Red Blood Cell Count 3.75 M/uL (4.33-5.43)
[2018-11-26 17:56] LABS: Protime INR 1.01
[2018-11-26 18:04] LABS: Potassium 3.5 mmol/L (3.5-5.1)
--- NOTE | 2018-11-26 18:33 | ER ---
Nurse's Notes [facility] Name: Shoaib Freitas Jr Age: 53 yrs Sex: Male : 1965 Arrival Date: 11/26/2018 Time: 16:31 Bed 20 Private MD: Diagnosis: Cellulitis of the right lower leg Presentation: 11/26 16:34 Presenting complaint: Patient states: Right leg redness and swelling for 2-3 days. la1 Transition of care: patient was not received from another setting of care. Onset of symptoms was November 26, 2018. Risk Assessment: Do you want to hurt yourself or someone else? Patient reports no desire to harm self or others. Initial Sepsis Screen: Does the patient meet any 2 criteria? No. Patient's initial sepsis screen is negative. Does the patient have a suspected source of infection? No. Patient's initial sepsis screen is negative. Care prior to arrival: None. 16:34 Method Of Arrival: Ambulatory la1 16:34 Acuity: COBY 3 la1 Historical: - Allergies: 16:35 No Known Allergies; la1 - PMHx: 16:35 Gall Stones; history of dialysis; Hypertension; kidney transplant; Pancreatitis; la1 - Immunization history:: Adult Immunizations up to date. - Social history:: Smoking status: Patient/guardian denies using tobacco. - Ebola Screening: : No symptoms or risks identified at this time. Screenin:40 Abuse screen: Denies threats or abuse. Nutritional screening: No deficits noted. em Tuberculosis screening: No symptoms or risk factors identified. Fall Risk None identified. Assessment: 16:40 General: Appears in no apparent distress. comfortable, Behavior is calm, cooperative, em Denies fever. Pain: Complains of pain in right leg Pain currently is 7 out of 10 on a pain scale. Neuro: Level of Consciousness is awake, alert, obeys commands, Oriented to person, place, time, situation. Cardiovascular: Capillary refill < 3 seconds Patient's skin is warm and dry. Respiratory: Airway is patent Respiratory effort is even, unlabored, Respiratory pattern is regular, symmetrical, Denies shortness of breath. Derm: Skin is intact, is healthy with good turgor, Skin is pink, warm \T\ dry. redness noted to right macias and calf. Musculoskeletal: Capillary refill < 3 seconds, Range of motion: intact in all extremities, Swelling present in right calf and right macias. 17:49 Reassessment: Patient appears in no apparent distress at this time. Patient and/or em family updated on plan of care and expected duration. Pain level reassessed. Patient is alert, oriented x 3, equal unlabored respirations, skin warm/dry/pink. 18:49 Reassessment: attempted to give report, manager critical care unit reports nurses are doing rounds but em will call ER as soon as they are available. 19:08 General: Appears in no apparent distress. comfortable, Behavior is calm, cooperative, rr5 appropriate for age. Pain: Complains of pain in right leg Pain does not radiate. Pain Quality of pain is described as aching, Pain began gradually, Is intermittent. Neuro: Level of Consciousness is awake, alert, obeys commands, Oriented to person, place, time, situation, Appropriate for age. Cardiovascular: Capillary refill < 3 seconds Patient's skin is warm and dry. Respiratory: Airway is patent Respiratory effort is even, unlabored, Respiratory pattern is regular, symmetrical. GI: No signs and/or symptoms were reported involving the gastrointestinal system. : No signs and/or symptoms were reported regarding the genitourinary system. EENT: No signs and/or symptoms were reported regarding the EENT system. Derm: Skin is intact, Skin is pink, warm \T\ dry. Musculoskeletal: Circulation, motion, and sensation intact. Capillary refill < 3 seconds, Swelling present in right leg. 19:50 Reassessment: complaints of upset stomach. ED provider with order made and carried out. rr5 pain score 8/10. 20:00 Reassessment: Patient appears in no apparent distress at this time. Patient is alert, rr5 oriented x 3, equal unlabored respirations, skin warm/dry/pink. transfer to medical surgical department. Vital Signs: 16:35 BP 123 / 79; Pulse 99; Resp 16; Temp 99.6; Pulse Ox 98% on R/A; Weight 93.89 kg; Height la1 5 ft. 11 in. (180.34 cm); 17:49 BP 138 / 76; Pulse 81; Resp 18; Pulse Ox 100% on R/A; Pain 7/10; em 18:47 BP 135 / 78; Pulse 75; Resp 18; Temp 99.0(O); Pulse Ox 100% on R/A; Pain 7/10; em 19:05 BP 151 / 80; Pulse 73; Resp 19; Temp 98.8; Pulse Ox 99% on R/A; rr5 19:46 BP 136 / 76; Pulse 73; Resp 18; Temp 98.7; Pulse Ox 99% ; rr5 16:35 Body Mass Index 28.87 (93.89 kg, 180.34 cm) la1 ED Course: 16:31 Patient arrived in ED. as 16:35 Triage completed. la1 16:35 Arm band placed on right wrist. la1 16:38 Frankie Gonzalez LVN is Primary Nurse. em 16:38 Vidal Dejesus PA is PHCP. cp 16:38 Sebas Stephenson MD is Attending Physician. cp 16:40 Patient has correct armband on for positive identification. Placed in gown. Bed in low em position. 17:03 US Extremity Venous Unilateral Ltd In Process Unspecified. EDMS 17:35 Inserted saline lock: 22 gauge in left antecubital area, using aseptic technique. Blood em collected. 17:35 Initial lab(s) drawn, by me, sent to lab. First set of blood cultures drawn by me. em 17:43 EKG done, by collections technician. reviewed by Vidal SALOMON. 3 18:06 PHCP role handed off by Vidal Dejesus PA [facility] 18:06 Nestor Hilliard PA is PHCP. [facility] 18:32 Mushtaq Linares MD is Hospitalizing Provider. [facility] 20:05 No provider procedures requiring assistance completed. rr5 20:05 Patient admitted, IV remains in place. intact, No redness/swelling at site. rr5 Administered Medications: 17:40 Drug: fentaNYL (PF) 25 mcg Route: IVP; Site: left antecubital; iw 17:41 Drug: NS 0.9% 1000 ml Route: IV; Rate: 1000 ml/hr; Site: left antecubital; em 19:50 Follow up: Response: No adverse reaction; IV Status: Completed infusion; IV Intake: rr5 1000ml 18:45 Drug: Zosyn 3.375 grams Route: IVPB; Infused Over: 60 mins; Site: left antecubital; em 19:50 Follow up: Response: No adverse reaction; IV Status: Completed infusion; IV Intake: rr5 100ml 19:50 Drug: vancoMYCIN 1 grams Route: IVPB; Infused Over: 2 hrs; Site: left antecubital; rr5 20:06 Follow up: Response: Other; IV Status: Infusion continued upon admission; administered rr5 at admission 20:00 Drug: Pepcid 20 mg Route: IVP; Site: left antecubital; rr5 20:07 Follow up: Response: Other; administered on admission rr5 Intake: 19:50 IV: 1000ml; Total: 1000ml. rr5 19:50 IV: 100ml; Total: 1100ml. rr5 Outcome: 18:32 Decision to Hospitalize by Provider. advid 20:05 Admitted to Med/surg accompanied by tech, via stretcher, room 205, with chart, Report rr5 called to [place] 20:05 Condition: stable 20:05 Instructed on the need for admit. rr5 20:08 Patient left the ED. rr5 Signatures: Dispatcher [employer] EDMS Nestor Hilliard PA PA [facility] Frankie Gonzalez, HOSE BUILDER HOSE BUILDER Angelina Saldana as Arely Borrego, Vincenzo Garcia RN, RN RN la1 Vidal Dejesus PA PA Claudia Salinas 3 Morgan Miguel, RN RN rr5 Corrections: (The following items were deleted from the chart) 16:35 16:35 BP 123 / 79; Pulse 99bpm; Resp 16bpm; Pulse Ox 98% RA; Temp 99.6F; 93.89 kg; la1 Height 5 ft. 11 in.; BMI: 28.8; la1
[2018-11-26] MEDS ORDERED: PIPER/TAZO/NS 3.375gm 3.375 GM/100 ML BAG ONE (18:34)
--- NOTE | 2018-11-26 18:34 | EDPHYS ---
Physician Documentation [facility] Name: Shoaib Freitas Jr Age: 53 yrs Sex: Male : 1965 Arrival Date: 11/26/2018 Time: 16:31 Bed 20 Private MD: ED Physician Sebas Stephenson HPI: 11/26 16:46 This 53 yrs old Black Male presents to ER via Ambulatory with complaints of Leg cp Swelling. 16:46 The patient presents with pain, that is acute, swelling, tenderness. The complaints cp affect the right lower leg. Onset: The symptoms/episode began/occurred 2 day(s) ago. Historical: - Allergies: 16:35 No Known Allergies; la1 - PMHx: 16:35 Gall Stones; history of dialysis; Hypertension; kidney transplant; Pancreatitis; la1 - Immunization history:: Adult Immunizations up to date. - Social history:: Smoking status: Patient/guardian denies using tobacco. - Ebola Screening: : No symptoms or risks identified at this time. ROS: 17:00 Constitutional: Negative for body aches, chills, fever, poor PO intake. cp 17:00 Eyes: Negative for injury, pain, redness, and discharge. cp 17:00 ENT: Negative for drainage from ear(s), ear pain, sore throat, difficulty swallowing, difficulty handling secretions. 17:00 Cardiovascular: Negative for chest pain, palpitations. 17:00 Respiratory: Negative for cough, shortness of breath, wheezing. 17:00 Abdomen/GI: Negative for abdominal pain, nausea, vomiting, and diarrhea. 17:00 MS/extremity: Positive for pain, swelling, tenderness, warmth, of the right lower leg, Negative for injury or acute deformity, decreased range of motion. 17:00 Neuro: Negative for altered mental status, headache, weakness. 17:00 All other systems are negative. Exam: 17:05 Constitutional: The patient appears in no acute distress, alert, awake, cp non-diaphoretic, non-toxic, well developed, well nourished, afebrile 17:05 Head/Face: Normocephalic, atraumatic. cp 17:05 Eyes: Periorbital structures: appear normal, Conjunctiva: normal, no exudate, no injection, Sclera: no appreciated abnormality, Lids and lashes: appear normal, bilaterally. 17:05 ENT: External ear(s): are unremarkable, Nose: is normal, Mouth: Lips: moist, Oral mucosa: pink and intact, moist, Posterior pharynx: is normal, airway is patent, no erythema, no exudate. 17:05 Neck: ROM/movement: is normal, is supple, without pain, no range of motions limitations, no nuchal rigidity. 17:05 Chest/axilla: Inspection: normal, Palpation: is normal, no crepitus, no tenderness. 17:05 Cardiovascular: Rate: normal, Rhythm: regular, JVD: is not appreciated. 17:05 Respiratory: the patient does not display signs of respiratory distress, Respirations: normal, no use of accessory muscles, no retractions, no splinting, no tachypnea, labored breathing, is not present, Breath sounds: are clear throughout, no decreased breath sounds, no stridor, no wheezing. 17:05 Abdomen/GI: Exam negative for discomfort, distension, guarding, Inspection: abdomen appears normal. 17:05 Back: pain, is absent, ROM is normal. 17:05 Musculoskeletal/extremity: Exam is negative for decreased range of motion, deformity, injury. 17:05 Skin: cellulitis, that is moderate, on the right lower leg. 17:05 Neuro: Orientation: to person, place \T\ time. Mentation: is normal. 17:38 ECG was reviewed by the Attending Physician. cp Vital Signs: 16:35 BP 123 / 79; Pulse 99; Resp 16; Temp 99.6; Pulse Ox 98% on R/A; Weight 93.89 kg; Height la1 5 ft. 11 in. (180.34 cm); 17:49 BP 138 / 76; Pulse 81; Resp 18; Pulse Ox 100% on R/A; Pain 7/10; em 18:47 BP 135 / 78; Pulse 75; Resp 18; Temp 99.0(O); Pulse Ox 100% on R/A; Pain 7/10; em 19:05 BP 151 / 80; Pulse 73; Resp 19; Temp 98.8; Pulse Ox 99% on R/A; rr5 19:46 BP 136 / 76; Pulse 73; Resp 18; Temp 98.7; Pulse Ox 99% ; rr5 16:35 Body Mass Index 28.87 (93.89 kg, 180.34 cm) la1 MDM: 16:43 Patient medically screened. 18:30 Data reviewed: vital signs, nurses notes. Counseling: I had a detailed discussion with david the patient and/or guardian regarding: the historical points, exam findings, and any diagnostic results supporting the discharge/admit diagnosis, lab results, radiology results, the need for outpatient follow up, to return to the emergency department if symptoms worsen or persist or if there are any questions or concerns that arise at home. ED course: I discussed the patient with Dr. Linares whom accepted admission. Patient admitted due to being immunocompromised. . 11/26 17:08 Order name: Basic Metabolic Panel 11/26 17:08 Order name: Blood Culture Adult (2) 11/26 17:08 Order name: CBC with Diff; Complete Time: 17:54 11/26 17:54 Interpretation: Normal except: WBC 12.5; RBC 3.75; HGB 12.0; HCT 36.0; NEUT A 9.2. 11/26 17:08 Order name: Lactate; Complete Time: 18:09 11/26 17:08 Order name: Procalcitonin; Complete Time: 18:17 11/26 17:08 Order name: Protime (+inr); Complete Time: 18:07 11/26 17:08 Order name: Ptt, Activated; Complete Time: 18:07 11/26 17:10 Order name: Basic Metabolic Panel; Complete Time: 18:07 EDUT 11/26 17:10 Order name: Blood Culture EDUT 11/26 17:13 Order name: CRP; Complete Time: 18:09 11/26 17:13 Order name: Sed Rate; Complete Time: 18:16 11/26 17:13 Order name: Urine Microscopic Only 11/26 18:43 Order name: Basic Metabolic Panel [facility] 11/26 18:43 Order name: Basic Metabolic Panel EDUT 11/26 16:45 Order name: US Extremity Venous Unilateral Ltd; Complete Time: 17:16 11/26 17:16 Interpretation: Report reviewed. 11/26 17:08 Order name: Accucheck; Complete Time: 17:14 11/26 17:08 Order name: Cardiac monitoring; Complete Time: 17:14 11/26 17:08 Order name: EKG - Nurse/Tech; Complete Time: 17:15 cp 11/26 17:08 Order name: IV Saline Lock - Large Bore; Complete Time: 17:15 cp 11/26 17:21 Order name: EKG Electrocardiogram; Complete Time: 17:43 EDMS 11/26 18:43 Order name: CONS Pharmacy Consult EDUT 11/26 18:43 Order name: Clear Liquid EDUT 11/26 18:43 Order name: CBC with Automated Diff EDUT 11/26 20:00 Order name: Urine Dipstick--Ancillary (enter results) mw2 11/26 17:08 Order name: Labs collected and sent; Complete Time: 17:15 cp 11/26 17:08 Order name: O2 Per Protocol; Complete Time: 17:14 cp 11/26 17:08 Order name: O2 Sat Monitoring; Complete Time: 17:14 cp EC:38 Rate is 82 beats/min. Rhythm is regular. TX interval is normal. QRS interval is normal. cp QT interval is normal. T waves are Flattened in lead III. Interpreted by me. Reviewed by me. Administered Medications: 17:40 Drug: fentaNYL (PF) 25 mcg Route: IVP; Site: left antecubital; iw 17:41 Drug: NS 0.9% 1000 ml Route: IV; Rate: 1000 ml/hr; Site: left antecubital; em 19:50 Follow up: Response: No adverse reaction; IV Status: Completed infusion; IV Intake: rr5 1000ml 18:45 Drug: Zosyn 3.375 grams Route: IVPB; Infused Over: 60 mins; Site: left antecubital; em 19:50 Follow up: Response: No adverse reaction; IV Status: Completed infusion; IV Intake: rr5 100ml 19:50 Drug: vancoMYCIN 1 grams Route: IVPB; Infused Over: 2 hrs; Site: left antecubital; rr5 20:06 Follow up: Response: Other; IV Status: Infusion continued upon admission; administered rr5 at admission 20:00 Drug: Pepcid 20 mg Route: IVP; Site: left antecubital; rr5 20:07 Follow up: Response: Other; administered on admission rr5 Disposition: 11/26/18 18:32 Hospitalization ordered by Mushtaq Linares for Inpatient Admission. Preliminary diagnosis is Cellulitis of the right lower leg. - Bed requested for Telemetry/MedSurg (Inpatient). - Status is Inpatient Admission. rr5 - Condition is Stable. - Problem is new. - Symptoms are unchanged. UTI on Admission? No Addendum: 11/29/2018 07:19 Co-signature as Attending Physician, Sebas Stephenson MD. r n Signatures: Dispatcher [employer] EDUT Kaye Aguilera RN RN dw Mickail, Joel, PA PA félix Gonzalez, Frankie, GENERAL HANDLING SUPERVISOR GENERAL HANDLING SUPERVISOR em Arely Borrego RN RN iw Nieto, Roman, MD MD rn Attema, Lee, RN RN la1 Vidal Dejesus PA PA cp Roque, Raymond, RN RN rr5 Corrections: (The following items were deleted from the chart) 11/26 18:42 18:32 Hospitalization Ordered by Mushtaq Linares MD for Inpatient Admission. Preliminary dw diagnosis is Cellulitis of the right lower leg. Bed requested for Telemetry/MedSurg (Inpatient). Status is Inpatient Admission. Condition is Stable. Problem is new. Symptoms are unchanged. UTI on Admission? No. [facility] 20:08 18:42 11/26/2018 18:32 Hospitalization Ordered by Mushtaq Linares MD for Inpatient rr5 Admission. Preliminary diagnosis is Cellulitis of the right lower leg. Bed requested for Telemetry/MedSurg (Inpatient). Status is Inpatient Admission. Condition is Stable. Problem is new. Symptoms are unchanged. UTI on Admission? No. dw
[2018-11-26] MEDS ORDERED: ACETAMINOPHEN 500 MG TAB PO PRN (18:36)
[2018-11-26] MEDS ORDERED: ONDANSETRON 4 MG/2 ML VIAL IV PRN (18:36)
[2018-11-26] MEDS ORDERED: VANCOMYCIN/NS 1 gm 1 GM/250 ML BAG IVPB SCH (18:45)
[2018-11-26] MEDS: NA CHLORIDE 0.9% 1,000 ML IV SCH (19:00)
[2018-11-26] MEDS ORDERED: FAMOTIDINE 20 MG/2 ML VIAL IV ONE (19:50)
[2018-11-26 20:07] LABS: Urine Blood 2+ (NEG); Urine Glucose NEGATIVE (NEG); Urine Protein 3+ (NEG); Urine Specific Gravity >1.030 (1.005-1.030); Urine pH 5.5 (5.0-7.0)
[2018-11-26 20:15] LABS: Urine Bacteria <20 /HPF (NONE SEEN); Urine Culture Reflex Order NOT NEEDED
[2018-11-26] MEDS: VANCOMYCIN 1.75 GM in NA CHLORIDE 0.9% 500 ML IVPB SCH (20:30)
[2018-11-26 20:41] VITALS: BMI 32.3
[2018-11-26] MEDS: HYDROCODONE/APAP 5/325 MG TAB PO PRN (21:08)
[2018-11-26] MEDS ORDERED: PIPERACIL/TAZO 3.375 GM VIAL IV ONE (23:39)
[2018-11-26] MEDS ORDERED: NA CHLORIDE 0.9% 100 ML ONE (23:44)
[2018-11-27] MEDS: HYDROCODONE/APAP 5/325 MG TAB PO PRN ×6 (00:43→22:12)
[2018-11-27] MEDS ORDERED: PIPER/TAZO/NS 3.375gm 3.375 GM/100 ML BAG IVPB SCH (01:00)
[2018-11-27] MEDS: NA CHLORIDE 0.9% 1,000 ML IV SCH ×2 (01:51→05:00)
[2018-11-27 06:04] LABS: Absolute Lymphocytes (CBC) 1.5 K/uL (0.7-4.9); Basophils % 0.5 % (0-1.3); Hematocrit 32.8 % (39.6-49.0); Lymphocytes % 21.4 % (15.3-44.8); MPV 7.7 fL (7.6-11.3)
[2018-11-27 06:20] LABS: Potassium 3.6 mmol/L (3.5-5.1)
[2018-11-27] MEDS: PIPER/TAZO/NS 3.375gm 3.375 GM/100 ML BAG IVPB SCH ×2 (09:06→18:06)
--- NOTE | 2018-11-27 09:06 | P.HP ---
Certification for Inpatient Patient admitted to: Observation With expected LOS: <2 Midnights Patient will require the following post-hospital care: None Practitioner: I am a practitioner with admitting privileges, knowledge of patient current condition, hospital course, and medical plan of care. Services: Services provided to patient in accordance with Admission requirements found in Title 42 Section 412.3 of the Code of Federal Regulations Patient History Date of Service: 11/26/18 Reason for admission: Right lower extremity cellulitis History of Present Illness: Patient is a 53-year-old gentleman who came to hospital with cellulitis of the right lower extremity. He noticed some pain in the right leg for the last couple of days. He started having some erythema and edema which generally worsen. Came to the ER for further evaluation. In the emergency room he was started on antibiotics. He will be admitted for observation of his right lower extremity cellulitis. Allergies No Known Allergies Allergy (Verified 11/26/18 20:44) Home Medications: Mycophenolate Mofetil [Cellcept] 500 mg PO DAILY 11/26/18 cycloSPORINE [Sandimmune] 25 mg PO BID 11/26/18 cycloSPORINE [Sandimmune] 100 mg PO BID 11/26/18 dilTIAZem HCl [Diltiazem 24Hr ER (LA)] 240 mg PO DAILY 11/26/18 - Past Medical/Surgical History Has patient received pneumonia vaccine in the past: No Diabetic: No -: History of renal transplant-17 years ago -: Hypertension -: Tobacco abuse -: pancreatitis -: kidney transplant 17 yrs ago -: cholecystectomy Psychosocial/ Personal History: He is engaged, has 2 children, 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 - Family History Mother Medical History: Hypertension, Diabetes Father Medical History: Hypertension, Diabetes - Social History Smoking Status: Never smoker Alcohol use: Yes CD- Drugs: No Caffeine use: Yes Place of Residence: Home Review of Systems 10-point ROS is otherwise unremarkable Physical Examination - Vital Signs Temperature: 97.7 F Blood Pressure: 136/74 Pulse: 68 Respirations: 18 Pulse Ox (%): 96 - Physical Exam General: Alert, In no apparent distress, Oriented x3 HEENT: Atraumatic, PERRLA, Mucous membr. moist/pink, EOMI, Sclerae nonicteric Neck: Supple, 2+ carotid pulse no bruit, No LAD, Without JVD or thyroid abnormality Respiratory: Clear to auscultation bilaterally, Normal air movement Cardiovascular: Regular rate/rhythm, Normal S1 S2, No murmurs Gastrointestinal: Normal bowel sounds, No tenderness Musculoskeletal: No clubbing, No swelling, No tenderness Integumentary: Tenderness/swelling, Erythema, Warmth Neurological: Normal gait, Normal speech, Normal strength at 5/5 x4 extr, Normal tone, Sensation intact, Cranial nerves 3-12 intact, Normal affect Lymphatics: No axilla or inguinal lymphadenopathy - Studies Laboratory Data (last 24 hrs) 11/26/18 17:35: PT 11.9, INR 1.01, APTT 30.8 11/26/18 17:35: WBC 12.5 H D, Hgb 12.0 L, Hct 36.0 L, Plt Count 243 11/26/18 17:35: Sodium 140, Potassium 3.5, BUN 21 H, Creatinine 1.41 H, Glucose 113 H Assessment & Plan - Problems (Diagnosis) (1) Cellulitis of leg, right Onset Date: 12/03/15 Current Visit: No Status: Acute (2) Hypertension Onset Date: 12/03/15 Current Visit: No Status: Chronic Qualifiers: Hypertension type: essential hypertension (3) Tobacco abuse Current Visit: No Status: Chronic - Plan 1. Continue with IV antibiotic 2. Gentle IV hydration 3. Monitor CBC 4. Strict blood sugar monitoring 5. Pain control 6. GI and DVT prophylaxis Discharge Plan: Home Plan to discharge in: 48 Hours - Advance Directives Does patient have a Living Will: No Does patient have a Durable POA for Healthcare: No - Code Status/Comfort Care Code Status Assessed: Yes Code Status: Full Code Critical Care: No Time Spent Managing PTS Care (In Minutes): 45
--- NOTE | 2018-11-27 09:09 | EKG ---
Test Date: 2018-11-26 Test Time: 17:29:46 Material Manager: TAMMIE MEASUREMENT RESULTS: Intervals: Rate: 82 DE: 148 QRSD: 96 QT: 372 QTc: 434 [place]: P: 49 DE: 148 QRS: 21 T: 15 INTERPRETIVE STATEMENTS: Normal sinus rhythm Normal ECG Compared to ECG 11/15/2018 11:21:03 No significant changes Electronically Signed On 11-27-18 09:07:52 CDT by Sundar Roa
--- NOTE | 2018-11-27 09:59 | P.PN ---
Subjective Date of Service: 11/27/18 Chief Complaint: Read leg cellulitis Subjective: Improving (Patient is improving admitted with right-sided cellulitis is still has difficulty ambulating complaining of discomfort) Review of Systems General: Weakness Musculoskeletal: As per HPI, Unremarkable Physical Examination - Vital Signs Temperature: 97.7 F Blood Pressure: 136/74 Pulse: 68 Respirations: 18 Pulse Ox (%): 96 - Physical Exam General: Alert, In no apparent distress, Oriented x3 Neck: Supple Respiratory: Clear to auscultation bilaterally Cardiovascular: No edema, Normal S1 S2 Integumentary: Other (Patient has an 80 of cellulitis in his right lower extremity you he seems to be improving) - Studies Laboratory Data (last 24 hrs) 11/26/18 17:35: PT 11.9, INR 1.01, APTT 30.8 11/26/18 17:35: WBC 12.5 H D, Hgb 12.0 L, Hct 36.0 L, Plt Count 243 11/26/18 17:35: Sodium 140, Potassium 3.5, BUN 21 H, Creatinine 1.41 H, Glucose 113 H Assessment & Plan - Problems (Diagnosis) (1) Cellulitis of right lower extremity Onset Date: 05/21/16 Current Visit: No Status: Acute Plan: Patient is 53 years of age admitted with right leg cellulitis is on IV antibiotics laboratory data all reviewed cultures are pending history of kidney transplant vital signs stable white count declining the of cellulitis is improving possible discharge tomorrow Discharge Plan: Home Plan to discharge in: 24 Hours
[2018-11-27] MEDS: VANCOMYCIN 1.75 GM in NA CHLORIDE 0.9% 500 ML IVPB SCH (14:10)
[2018-11-27] MEDS: DILTIAZEM HCL 120 MG SR CAP PO SCH (14:12)
[2018-11-27] MEDS: CYCLOSPORINE 25 MG PO SCH (21:00)
[2018-11-27] MEDS: CYCLOSPORINE 100 MG PO SCH (21:00)
[2018-11-28] MEDS: PIPER/TAZO/NS 3.375gm 3.375 GM/100 ML BAG IVPB SCH ×2 (02:22→08:51)
[2018-11-28] MEDS: HYDROCODONE/APAP 5/325 MG TAB PO PRN ×3 (05:34→13:41)
[2018-11-28 06:19] LABS: Absolute Lymphocytes (CBC) 2.5 K/uL (0.7-4.9); Hematocrit 29.7 % (39.6-49.0); Lymphocytes % 31.7 % (15.3-44.8); MPV 8.3 fL (7.6-11.3); RBC Red Blood Cell Count 3.02 M/uL (4.33-5.43)
[2018-11-28] MEDS: VANCOMYCIN 1.75 GM in NA CHLORIDE 0.9% 500 ML IVPB SCH (06:20)
[2018-11-28 06:32] LABS: Potassium 4.2 mmol/L (3.5-5.1)
[2018-11-28 07:58] VITALS: O2SAT 97
[2018-11-28] MEDS: DILTIAZEM HCL 120 MG SR CAP PO SCH (08:50)
[2018-11-28] MEDS ORDERED: HOME MED 1 EA UNK (Mycophenolate Mofetil [Cellcept] 500 MG) PO SCH (09:00)
[2018-11-28] MEDS ORDERED: DILTIAZEM HCL 240 MG PO SCH (09:00)
[2018-11-28] MEDS: CYCLOSPORINE 25 MG PO SCH (09:00)
[2018-11-28] MEDS: CYCLOSPORINE 100 MG PO SCH (09:00)
[2018-11-28 09:45] LABS: Blood Morphology Comment NOT SEEN (NOT SEEN); Platelet Estimate ADEQ; Urine White Blood Cell Casts OK
[2018-11-28 10:25] VITALS: BP 136/74; TEMP 97.7
--- NOTE | 2018-11-28 10:30 | P.DS ---
Admission Date: 11/26/18 (Hospitalist) Discharge Date: 11/28/18 Disposition: ROUTINE DISCHARGE Discharge Condition: FAIR Reason for Admission: Read leg cellulitis - Problems (1) Cellulitis of right lower extremity Onset Date: 05/21/16 Current Visit: No Status: Acute Brief History of Present Illness: Patient is 53 years of age a renal transplant admitted with a cellulitis Hospital Course: Was treated with IV Zosyn did well at the time of discharge patient was ambulating still complaining of pain is taking some pain medications he was able to ambulate vital signs all stable alert oriented cooperative chest clear abdomen soft cellulitis appeared to be decreasing cultures so far negative patient to be discharged home on levofloxacin for wide narcotics due to potential interaction to follow up with his primary care physician in a week Vital Signs/Physical Exam: Temp Pulse Resp BP Pulse Ox 97.7 F 68 18 136/74 96 11/28/18 10:25 11/28/18 10:25 11/28/18 10:25 11/28/18 10:25 11/28/18 10:25 Laboratory Data at Discharge: WBC 7.8 K/uL (4.3-10.9) 11/28/18 05:26 Hgb 10.3 g/dL (13.6-17.9) L 11/28/18 05:26 Hct 29.7 % (39.6-49.0) L 11/28/18 05:26 Plt Count 260 K/uL (152-406) 11/28/18 05:26 PT 11.9 SECONDS (9.5-12.5) 11/26/18 17:35 INR 1.01 11/26/18 17:35 APTT 30.8 SECONDS (24.3-36.9) 11/26/18 17:35 Sodium 142 mmol/L (136-145) 11/28/18 05:26 Potassium 4.2 mmol/L (3.5-5.1) 11/28/18 05:26 BUN 12 mg/dL (7-18) 11/28/18 05:26 Creatinine 1.19 mg/dL (0.55-1.3) 11/28/18 05:26 Glucose 90 mg/dL (74-106) 11/28/18 05:26 Home Medications: Mycophenolate Mofetil [Cellcept] 500 mg PO DAILY 11/26/18 cycloSPORINE [Sandimmune] 25 mg PO BID 11/26/18 cycloSPORINE [Sandimmune] 100 mg PO BID 11/26/18 dilTIAZem HCl [Diltiazem 24Hr ER (LA)] 240 mg PO DAILY 11/26/18 Levofloxacin [Levaquin] 500 mg PO DAILY #7 tablet 11/28/18 New Medications: Levofloxacin [Levaquin] 500 mg PO DAILY #7 tablet Patient Discharge Instructions: Patient to use [id number] Tylenol due to interaction with all narcotics with his kidney medications Diet: Regular Activity: Ad miguel angel
== END 2018-11-28 13:42 | disposition home or self-care (01) | DRG 603 ==
LOC: ER 16:29 → ERHOLD 18:34 → 2ND 19:50
PROVIDERS: ADMIT Family Medicine; ATTEND Hospitalist
DX: L03.115 Cellulitis of right lower limb (principal); Z94.0 Kidney transplant status; I10 Essential (primary) hypertension; F17.210 Nicotine dependence, cigarettes, uncomplicated
CPT/HCPCS: 36415; 80048; 81003; 81015; 83605; 84145; 85025; 85610; 85652; 85730; 86140; 87040; 93005; 93971; 96361; 96365; 96367; 96375; 99285; J2405; J2543; J3010; J7030

== ENCOUNTER 2018-12-08 13:33 | Emergency (ER) | payer OTHER ==
--- OUTSIDE RECORDS SUMMARY | 2018-12-08 13:47 | XMS REPORT | Clinical Summary ---
:1965 Author Organization [facility] Address [address] [place] [id number] Care Team Providers Name Role Phone Terrence [...] Not on file Results Not on fileafter 12/07/2017 Insurance Payer Benefit Plan / Group Subscriber ID Type Phone Address [employer] [facility]
--- OUTSIDE RECORDS SUMMARY | 2018-12-08 13:47 | XMS REPORT | Clinical Summary ---
:1965 Author Organization [facility] Address [address] [place] [address] Care Team Providers Name Role Phone Juan Klein MD Primary Care Provider Allergies No Known Allergies Medications Medication Sig Dispensed Refills Start Date End Date Status pantoprazole Take 40 mg by 0 Active (PROTONIX) 40 MG mouth 2 (two) EC tablet times a day. promethazine Take 50 mg by 0 Active (PHENERGAN) 50 MG mouth every tablet 12 (twelve) hours as needed for nausea or vomiting. diltiazem CD Take 240 mg 0 Active (CardIZEM CD) 240 by mouth MG 24 hr capsule daily. mycophenolate Take 500 mg 0 Active (CELLCEPT) 500 mg by mouth 2 tablet (two) times a day. valsartan (DIOVAN) Take 40 mg by 0 Active 40 MG tablet mouth daily. ciprofloxacin HCl Take 250 mg 0 01/13/2018 (CIPRO) 250 MG by mouth 8 tablet every 12 (twelve) hours. For 5 days 01/13/18- 11/28 traMADol (ULTRAM) Take 50 mg by 0 Discontinued 50 mg tablet mouth every 8 (Stop Taking at 12 (twelve) Discharge) hours as needed for moderate pain. cycloSPORINE Take 25 mg by 0 Discontinued modified (NEORAL) mouth 2 (two) 8 25 MG capsule times a day. cycloSPORINE Take 1 60 capsule 0 01/18/2018 modified (NEORAL) capsule (100 8 100 MG capsule mg total) by mouth 2 (two) times a day [...] phosphorus metabolism 12/08/2017 Intake Access N/A after 12/07/2017 Social History Tobacco Use Types Packs/Day Years [...] Vital Signs Vital Sign Reading Time Taken Comments Blood Pressure 139/77 01/19/2018 7:20 AM CDT [...] CDT procedure are in the results section. IA AN ELECTIVE Routine 01/16/2018 2:08 ENDOTRACHEAL AIRWAY PM CDT Procedure Note - Jaylin Beckman CRNA - 01/16/2018 2:08 PM CDT Airway Date/Time: 01/16/2018 1:41 AM Performed by: JAYLIN BECKMAN Authorized by: DOMINICK DUMONT Location: OR Urgency: Elective Performed by: resident/LUSTER REPAIRER/AA Preoxygenated with 100% O2: Yes C-spine Precautions [...] remain unchanged. CHOLECYSTECTOMY, 01/16/2018 Cholecystitis with LAPAROSCOPIC 1:33 PM CDT cholelithiasis Kidney transplant status, cadaveric Immunosuppression [...] procedure are in the results section. after 12/07/2017 Results Urinalysis screen and microscopy, with reflex to culture (07/19/2018 9:00 AM CDT)Only the most recent of2 resultswithin the time period is included. Specimen site Clean catch [facility] Color, UA Yellow [facility] Appearance, UA Clear [facility] Specific gravity, 1.021 1.001 - 1.035 [facility] pH, UA 5.0 5.0 - 8.5 [facility] Protein, UA 2+ (A) Negative [facility] Glucose, UA Negative Negative [facility] Ketones, UA Negative Negative [facility] Bilirubin, UA Negative Negative [facility] Blood, UA Moderate (A) Negative [facility] Nitrite, UA Negative Negative [facility] Urobilinogen, UA <2.0 <2.0 [facility] Leukocyte esterase, Negative Negative [facility] WBC, UA 1 0 - 1 /HPF [facility] RBC, UA 2 0 - 5 /HPF [facility] Bacteria, UA Few None seen [facility] Yeast, UA None seen [facility] Yeast with None seen [facility] pseudohyphae, [facility] Hyaline casts, UA 4 /LPF [facility] Specimen Urine Performing Organization Address City/State/Zipcode Phone Number [facility] DEPARTMENT OF PATHOLOGY AND [address] [place] [phone] [place] [address] Estimated GFR (07/19/2018 9:00 AM CDT)Only the most recent of7 resultswithin the time period is included. Pathologist [facility] Estimated GFR 82 mL/min/1.73 [facility] Comment: [address] CatergoryUnitsInterpretation G1 >=90 Normal or high G2 60-89Mildly decreased M2z83-22Uydmow to moderately decreased [id number] to severely decreased G4 15-29Severely decreased G5 <15Kidney failure The eGFR was calculated using the Chronic Kidney Disease Epidemiology Collaboration (CKD-EPI) equation. Interpretation is based on recommendations of the National Kidney Foundation-Kidney Disease Outcomes Quality Initiative (NKF-KDOQI) published in 2014. Specimen Plasma specimen Performing Organization Address City/[facility]/Zipcode Phone Number [facility] DEPARTMENT OF PATHOLOGY AND [address] [place] [address] Cyclosporine level, random (07/19/2018 9:00 AM CDT)Only the most recent of3 resultswithin the time period is included. [facility] Cyclosporine 418 ng/mL [facility] Comment: HOSPITAL Unless administered by continuous IV drip, collect a purple top tube just before the next dose. Therapeutic range of approximately 100-500 varies mainly with type of transplant, use of other immunosuppressive agents, and evidence of toxicity or rejection. Test performed using [employer] chemiluminescent microparticle immunoassay for Cyclosporine on the [employer] i System. Specimen Blood Performing Organization Address City/State/Zipcode Phone Number [facility] DEPARTMENT OF PATHOLOGY AND [address] [place] [address] Protein, urine, random (07/19/2018 9:00 AM CDT)Only the most recent of2 resultswithin the time period is included. Pathologist [facility] Protein, urine random 181 mg/dL [facility] Specimen Urine Performing Organization Address City/[facility]/Zipcode Phone Number [facility] DEPARTMENT OF PATHOLOGY AND [address] [place] [address] [place] [id number] [place] [address] Creatinine level, urine, random (07/19/2018 9:00 AM CDT)Only the most recent of2 resultswithin the time period is included. Creatinine, urine, 197 mg/dL [facility] Specimen Urine Performing Organization Address City/[facility]/Zipcode Phone Number [facility] DEPARTMENT OF PATHOLOGY AND [address] [place] [address] [address] CBC with platelet and differential (07/19/2018 9:00 AM CDT)Only the most recent of6 resultswithin the time period is included. WBC 9.62 4.50 - 11.00 [facility] k/uL HOSPITAL RBC 4.42 4.40 - 6.00 [facility] m/[facility] HGB 14.0 14.0 - 18.0 [facility] g/dL [facility] HCT 42.4 41.0 - 51.0 % [facility] MCV 95.9 82.0 - 100.0 [facility] MCH 31.7 27.0 - 34.0 pg [facility] MCHC 33.0 31.0 - 37.0 [facility] gdL [facility] RDW - SD 41.3 37.0 - 55.0 fL [facility] MPV 9.3 8.8 - 13.2 fL [facility] Platelet count 284 150 - 400 k/uL [facility] Nucleated RBC 0.00 /100 WBC [facility] Neutrophils 57.6 39.0 - 69.0 % [facility] Lymphocytes 28.9 25.0 - 45.0 % [facility] Monocytes 8.9 0.0 - 10.0 % [facility] Eosinophils 3.4 0.0 - 5.0 % [facility] Basophils 0.8 0.0 - 1.0 % [facility] Immature granulocytes 0.4Comment: 0.0 - 1.0 % [facility] "Immature HOSPITAL granulocytes" (promyelocytes , myelocytes, metamyelocytes ) Specimen Blood Performing Organization Address [facility] Facility[facility] Phone Number [facility] DEPARTMENT OF PATHOLOGY AND [address] [place] [phone] [place] [phone] Urine culture (07/19/2018 9:00 AM CDT)Only the most recent of2 resultswithin the time period is included. Urine culture SEE COMMENTComment: [facility] Bacteriuria screen HOSPITAL negative. Specimen Performing Organization Address [facility] Facility[facility] Phone Number [facility] DEPARTMENT OF PATHOLOGY AND [address] [place] [phone] [place] [address] Uric acid level (07/19/2018 9:00 AM CDT)Only the most recent of2 resultswithin the time period is included. Uric acid 6.1 3.4 - 7.0 mg/dL [facility] Specimen Plasma specimen Performing Organization Address [facility] Phone Number [facility] DEPARTMENT OF PATHOLOGY AND [address] [place] [address] Phosphorus level (07/19/2018 9:00 AM CDT)Only the most recent of4 resultswithin the time period is included. Phosphorus 2.1 (L) 2.4 - 4.5 mg/dL [facility] Specimen Plasma specimen Performing Organization Address [facility] Phone Number [facility] DEPARTMENT OF PATHOLOGY AND [address] [place] [phone] [place] [address] Magnesium level (07/19/2018 9:00 AM CDT)Only the most recent of4 resultswithin the time period is included. Magnesium 1.8 1.6 - 2.6 mg/dL [facility] Specimen Plasma specimen Performing Organization Address [facility] Facility[facility] Phone Number [facility] DEPARTMENT OF PATHOLOGY AND [address] [place] [phone] [place] [address] LDH (07/19/2018 9:00 AM CDT)Only the most recent of2 resultswithin the time period is included. LDH 160 87 - 225 U/L [facility] Specimen Plasma specimen Performing Organization Address City/[facility]/Zipcode Phone Number [facility] DEPARTMENT OF PATHOLOGY AND [address] [place] [phone] [place] [address] Comprehensive metabolic panel (07/19/2018 9:00 AM CDT)Only the most recent of4 resultswithin the time period is included. Sodium 138 135 - 148 [facility] mEq/L [facility] Potassium 4.3 3.5 - 5.0 [facility] mEq/L [facility] Chloride 103 98 - 112 mEq/L [facility] CO2 26 24 - 31 mEq/L [facility] Anion gap 9@ANIO 7 - 15 mEq/L [facility] BUN 15 6 - 20 mg/dL [facility] Creatinine 1.18 0.70 - 1.20 [facility] mg/dL [facility] Glucose 106 (H) 65 - 99 mg/dL [facility] Calcium 10.2 8.3 - 10.2 [facility] mg/dL [facility] Protein 7.6 6.3 - 8.3 g/dL [facility] Comment: HOSPITAL [place] 4.6-7.0 g/dL 1 week 4.4-7.6 g/dL 7 months-1year5.1-7.3 g/dL 1-2 years5.6-7.5 g/dL >3 years6.0-8.0 g/dL 18-150 6.3-8.3 g/dL Albumin 3.6 3.5 - 5.0 g/dL [facility] A/G ratio 0.9 0.7 - 3.8 [facility] Alkaline phosphatase 84 40 - 129 U/L [facility] AST 21 10 - 50 U/L [facility] ALT 24 5 - 50 U/L [facility] Total bilirubin 0.5 0.0 - 1.2 [facility] mg/dL [facility] Specimen Plasma specimen Performing Organization Address City/[facility]/Zipcode Phone Number [facility] DEPARTMENT OF PATHOLOGY AND [address] [place] [address] [address] Basic metabolic panel (01/19/2018 4:00 AM CDT)Only the most recent of3 resultswithin the time period is included. Sodium 137 135 - 148 mEq/L [facility] DEPARTMENT OF PATHOLOGY AND GENOMIC MEDICINE Potassium 3.8 3.5 - 5.0 mEq/L [facility] DEPARTMENT OF PATHOLOGY AND GENOMIC MEDICINE Chloride 101 98 - 112 mEq/L [facility] DEPARTMENT OF PATHOLOGY AND GENOMIC MEDICINE CO2 27 24 - 31 mEq/L [facility] DEPARTMENT OF PATHOLOGY AND GENOMIC MEDICINE Anion gap 9@ANIO 7 - 15 mEq/L [facility] DEPARTMENT OF PATHOLOGY AND GENOMIC MEDICINE BUN 14 6 - 20 mg/dL [facility] DEPARTMENT OF PATHOLOGY AND GENOMIC MEDICINE Creatinine 1.03 0.70 - 1.20 mg/dL [facility] DEPARTMENT OF PATHOLOGY AND GENOMIC MEDICINE Glucose 91 65 - 99 mg/dL [facility] DEPARTMENT OF PATHOLOGY AND GENOMIC MEDICINE Calcium 9.6 8.3 - 10.2 mg/dL [facility] DEPARTMENT OF PATHOLOGY AND GENOMIC MEDICINE Specimen Plasma specimen Performing Organization Address City/[facility] Phone Number [facility] DEPARTMENT PATHOLOGY AND [address] [place] [address] [employer] MEDICINE [place] < 1 Hour (01/16/2018 [...] mGy Tech: [id number] Performing Organization Address City/[facility] Facility[facility] Phone Number [facility] [address] [place] [address] Surgical pathology request (01/16/2018 8:46 AM CDT) [facility] DEPARTMENT OF PATHOLOGY AND GENOMIC MEDICINE Surgical pathology See link below [facility] DEPARTMENT OF report for PDF Lab PATHOLOGY AND Report GENOMIC MEDICINE Result status This is Final [facility] DEPARTMENT OF Report for PATHOLOGY AND [id number] GENOMIC MEDICINE Specimen Performing Organization Address City/[facility] Facility[facility]d Phone Number [facility] DEPARTMENT OF PATHOLOGY AND [address] [place] [phone] GENOMIC MEDICINE Urinalysis, automated with microscopy (01/15/2018 6:50 PM CDT) Color, UA Yellow [facility] DEPARTMENT OF PATHOLOGY AND GENOMIC MEDICINE Appearance, UA Clear [facility] DEPARTMENT OF PATHOLOGY AND GENOMIC MEDICINE Specific gravity, UA 1.028 1.001 - 1.035 [facility] DEPARTMENT OF PATHOLOGY AND GENOMIC MEDICINE pH, UA 5.0 5.0 - 8.5 [facility] DEPARTMENT OF PATHOLOGY AND GENOMIC MEDICINE Protein, UA 3+ (A) Negative [facility] DEPARTMENT OF PATHOLOGY AND GENOMIC MEDICINE Glucose, UA Negative Negative [facility] DEPARTMENT OF PATHOLOGY AND GENOMIC MEDICINE Ketones, UA 2+ (A) Negative [facility] DEPARTMENT OF PATHOLOGY AND GENOMIC MEDICINE Bilirubin, UA Negative Negative [facility] DEPARTMENT OF PATHOLOGY AND GENOMIC MEDICINE Blood, UA Large (A) Negative [facility] DEPARTMENT OF PATHOLOGY AND GENOMIC MEDICINE Nitrite, UA Negative Negative [facility] DEPARTMENT OF PATHOLOGY AND GENOMIC MEDICINE Urobilinogen, UA <2.0 <2.0 [facility] DEPARTMENT OF PATHOLOGY AND GENOMIC MEDICINE Leukocyte esterase, Negative Negative [facility] DEPARTMENT OF UA PATHOLOGY AND GENOMIC MEDICINE Epithelial cells, UA 1 /HPF [facility] DEPARTMENT OF PATHOLOGY AND GENOMIC MEDICINE WBC, UA 2 (H) 0 - 1 /HPF [facility] DEPARTMENT OF PATHOLOGY AND GENOMIC MEDICINE RBC, UA 2 0 - 5 /HPF [facility] DEPARTMENT OF PATHOLOGY AND GENOMIC MEDICINE Bacteria, UA Few None seen [facility] DEPARTMENT OF PATHOLOGY AND GENOMIC MEDICINE Hyaline casts, UA 7 /LPF [facility] DEPARTMENT OF PATHOLOGY AND GENOMIC MEDICINE Yeast, UA None seen [facility] DEPARTMENT OF PATHOLOGY AND GENOMIC MEDICINE Yeast with None seen [facility] DEPARTMENT OF pseudohyphae, UA PATHOLOGY AND GENOMIC MEDICINE Specimen Urine - Urine, catheter Performing Organization Address City/[facility] Phone Number [facility] DEPARTMENT OF PATHOLOGY AND [address] [place] [address] GENOMIC MEDICINE XR Thoracic Spine 2 Vw [...] acute osseous abnormality of the thoracic spine. [facility]-[id number] Procedure Note Hm Interface, Radiology Results Incoming [...] acute osseous abnormality of the thoracic spine. [facility]-[id number] Performing Organization Address City/State/Zipcode Phone Number [facility] [address] [place] [address] US Renal (01/15/2018 4:19 PM CDT) Specimen Narrative Performed At EXAMINATION:US RENAL, US RENAL TRANSPLANT DOPPLER [facility] CLINICAL HISTORY:Hematuriarenal parenchymal cause suspected, patient has hematuriawe need renal US of the kidney Tx to RO mass and also renal [facility] [place] kidneys to rule out mass TECHNIQUE: Sonographic images of both [place] kidneys and the left iliac fossa renal [...] end-stage renal disease. Small cyst lower pole [place] left kidney. Unremarkable left iliac fossa renal transplant with normal renal Doppler examination. [facility]-[id number] Procedure Note Hm Interface, Radiology Results Incoming - 01/15/2018 4:36 PM CDT EXAMINATION: US RENAL, US RENAL TRANSPLANT DOPPLER CLINICAL HISTORY: Hematuria renal parenchymal cause suspected, patient has hematuria we need renal US of the kidney Tx to RO mass and also renal [facility] [place] kidneys to rule out mass TECHNIQUE: Sonographic images of both [place] kidneys and the left iliac fossa renal [...] end-stage renal disease. Small cyst lower pole [place] left kidney. Unremarkable left iliac fossa renal transplant with normal renal Doppler examination. [facility]-[id number] Performing Organization Address City/State/Zipcode Phone Number [facility] [address] [place] [address] US Renal Transplant Doppler (01/15/2018 4:12 PM CDT) Specimen Narrative Performed At EXAMINATION:US RENAL, US RENAL TRANSPLANT DOPPLER [facility] CLINICAL HISTORY:Hematuriarenal parenchymal cause suspected, patient has hematuriawe need renal US of the kidney Tx to RO mass and also renal [place] kidneys to rule out mass TECHNIQUE: Sonographic images of both [place] kidneys and the left iliac fossa renal [...] end-stage renal disease. Small cyst lower pole [place] left kidney. Unremarkable left iliac fossa renal transplant with normal renal Doppler examination. [facility]-[id number] Procedure Note [facility], Radiology Results Incoming - 01/15/2018 4:36 PM CDT EXAMINATION: US RENAL, US RENAL TRANSPLANT DOPPLER CLINICAL HISTORY: Hematuria renal parenchymal cause suspected, patient has hematuria we need renal US of the kidney Tx to RO mass and also renal [place] kidneys to rule out mass TECHNIQUE: Sonographic images of both [place] kidneys and the left iliac fossa renal [...] end-stage renal disease. Small cyst lower pole [place] left kidney. Unremarkable left iliac fossa renal transplant with normal renal Doppler examination. [facility]-[id number] Performing Organization Address [facility] Facility[facility] Phone Number [facility] [address] [place] [address] XR Chest 1 Vw Portable (01/15/2018 11:46 AM CDT) Specimen Narrative Performed At EXAMINATION:XR CHEST 1 VW PORTABLE [facility] CLINICAL HISTORY:Chest Pain COMPARISON:None. IMPRESSION: The lungs and pleural spaces are clear.The cardiomediastinal silhouette is within normal limits.There is no significant skeletal finding. [facility]-[id number] Procedure Note Hm Interface, Radiology Results Incoming - 01/15/2018 11:52 AM CDT EXAMINATION: XR CHEST 1 VW PORTABLE CLINICAL HISTORY: Chest Pain COMPARISON: None. IMPRESSION: The lungs and pleural spaces are clear. The cardiomediastinal silhouette is within normal limits. There is no significant skeletal finding. [facility]-[id number] Performing Organization Address [facility] Phone Number [facility] [address] [place] [address] Troponin (01/15/2018 11:21 AM CDT) Troponin <0.30 0.00 - 0.30 [facility] DEPARTMENT OF Comment: ng/mL PATHOLOGY AND 0.30 - 1.49 ng/mlMay indicate increased risk of acute GENOMIC MEDICINE coronary syndrome. >=1.5 ng/mlConsistent with acute myocardial infarction. The diagnostic value of a single normal or non-diagnostic result is questionable.Serial samples at 2-6 hour intervals are required to rule out acute myocardial injury. Specimen Plasma specimen Performing Organization Address [facility] Facility[facility] Phone Number [facility] DEPARTMENT OF PATHOLOGY AND [address] [place] [address] Partial thromboplastin time, activated (01/15/2018 11:21 AM CDT) PTT 28.1 23.0 - 36.0 [facility] DEPARTMENT OF Comment: sec PATHOLOGY AND PTT therapeutic range for unfractionated heparin is [facility] 61.0-112.0 seconds which corresponds to Anti-Xa 0.3-0.7 U/ml. Specimen Blood Performing Organization Address City/[facility]/Zipcode Phone Number [facility] DEPARTMENT OF PATHOLOGY AND [address] [place] [address] Prothrombin time with INR (01/15/2018 11:21 AM CDT) Pathologist [facility] Prothrombin time 13.8 12.0 - 15.0 [facility] DEPARTMENT OF sec PATHOLOGY AND [facility] INR 1.0 [facility] DEPARTMENT OF Comment: PATHOLOGY AND The International Normalized Ratio (INR) is a therapeutic [facility] monitoring tool for patients who are stable on oral anticoagulant therapy. An INR of 2.0-3.0 is suggested for deep vein thrombosis/pulmonary embolism. Specimen Blood Performing Organization Address City/[facility] Phone Number [facility] DEPARTMENT OF PATHOLOGY AND [address] [place] [address] B natriuretic peptide (01/15/2018 11:21 AM CDT) BNP 4 0 - 100 pg/mL [facility] DEPARTMENT OF PATHOLOGY AND GENOMIC MEDICINE Specimen Blood Performing Organization Address [facility] Phone Number [facility] DEPARTMENT OF PATHOLOGY AND [address] [place] [address] Lipase level (01/15/2018 11:21 AM CDT) Lipase 25 13 - 60 U/L [facility] DEPARTMENT OF PATHOLOGY AND GENOMIC MEDICINE Specimen Plasma specimen Performing Organization Address City/[facility]/Zipcode Phone Number [facility] DEPARTMENT OF PATHOLOGY AND [address] [place] [address] US Gallbladder (01/15/2018 11:14 AM CDT) Specimen Narrative Performed At EXAMINATION:US GALLBLADDER [facility] CLINICAL HISTORY:Cholelithiasis COMPARISON:None. FINDINGS: Gallbladder: Gallbladder contains multiple stones. There is no wall thickening or pericholecystic fluid. CBD:5 mm , within normal limits. Portal vein: The portal vein demonstrates normal hepatopetal flow. The portal vein measures 7 mm. IMPRESSION: Cholelithiasis without sonographic evidence of cholecystitis. [facility]-[id number] Procedure Note Hm Interface, Radiology Results Incoming - 01/15/2018 11:22 AM CDT EXAMINATION: US GALLBLADDER CLINICAL HISTORY: Cholelithiasis COMPARISON: None. FINDINGS: Gallbladder: Gallbladder contains multiple stones. There is no wall thickening or pericholecystic fluid. CBD: 5 mm , within normal limits. Portal vein: The portal vein demonstrates normal hepatopetal flow. The portal vein measures 7 mm. IMPRESSION: Cholelithiasis without sonographic evidence of cholecystitis. [facility]-[id number] Performing Organization Address [facility] Phone Number [facility] [address] [place] [id number] ECG 12 lead (01/15/2018 9:36 AM CDT) Ventricular rate 82 [facility] Atrial rate 82 [facility] IA interval 142 [facility] QRSD interval 88 [facility] QT interval 368 [facility] QTC interval 429 [facility] P axis 1 75 [facility] QRS axis 1 34 [facility] T wave axis 56 [facility] EKG impression Normal sinus [facility] MUSE rhythm-Normal ECG-In automated comparison with ECG of 10-OCT-2013 18:49,-No significant change was found- Specimen Performing Organization Address City/[facility] Phone Number [facility] [address] [place] [address] after 12/07/2017 Insurance Payer Benefit Plan / Subscriber ID Effective Dates Phone Address Type Group MEDICARE MEDICARE PART A xxxxxxxxxxx 1993-Present [place], [place] Medicare [place] ([place] [address]
[2018-12-08] MEDS ORDERED: HYDROCODONE/APAP 7.5/325 MG TAB ONE (14:26)
--- NOTE | 2018-12-08 14:33 | ER ---
Nurse's Notes [facility] Name: Shoaib Freitas Jr Age: 53 yrs Sex: Male : 1965 Arrival Date: 12/08/2018 Time: 13:35 Bed 13 Private MD: Diagnosis: Cellulitis of right lower limb Presentation: 12/08 13:38 Presenting complaint: Patient states: "I was seen here for leg cellulitis about 2 weeks aa5 ago and I finished the antibiotics and it's not better". Transition of care: patient was not received from another setting of care. Onset of symptoms was November 2018. Risk Assessment: Do you want to hurt yourself or someone else? Patient reports no desire to harm self or others. Initial Sepsis Screen: Does the patient meet any 2 criteria? No. Patient's initial sepsis screen is negative. Does the patient have a suspected source of infection? No. Patient's initial sepsis screen is negative. Care prior to arrival: None. 13:38 Acuity: COBY 3 aa5 13:38 Method Of Arrival: Ambulatory aa5 Historical: - Allergies: 13:40 No Known Allergies; aa5 - PMHx: 13:40 Gall Stones; history of dialysis; Hypertension; kidney transplant; Pancreatitis; aa5 - PSHx: 13:40 Cholecystectomy; Kidney transplant; aa5 - Immunization history:: Adult Immunizations unknown. - Social history:: Smoking status: Patient/guardian denies using tobacco. - Ebola Screening: : No symptoms or risks identified at this time. Screenin:47 Abuse screen: Denies threats or abuse. Denies injuries from another. Nutritional hb screening: No deficits noted. Tuberculosis screening: No symptoms or risk factors identified. Fall Risk None identified. Assessment: 14:00 General: Appears in no apparent distress. Behavior is calm, cooperative. Pain: Pain hb currently is 8 out of 10 on a pain scale. Neuro: Level of Consciousness is awake, alert, obeys commands, Oriented to person, place, time, situation. Cardiovascular: Capillary refill < 3 seconds Patient's skin is warm and dry. Respiratory: Airway is patent Respiratory effort is even, unlabored, Respiratory pattern is regular, symmetrical. GI: No signs and/or symptoms were reported involving the gastrointestinal system. : No signs and/or symptoms were reported regarding the genitourinary system. EENT: No signs and/or symptoms were reported regarding the EENT system. Derm: mild redness and swelling noted to right macias and calf. Musculoskeletal: No signs and/or symptoms reported regarding the musculoskeletal system. 15:00 Reassessment: Patient appears in no apparent distress at this time. Patient and/or hb family updated on plan of care and expected duration. Pain level reassessed. Patient is alert, oriented x 3, equal unlabored respirations, skin warm/dry/pink. Vital Signs: 13:41 BP 139 / 88; Pulse 86; Resp 16 S; Temp 98.6(O); Pulse Ox 97% on R/A; Weight 93.89 kg aa5 (R); Height 5 ft. 11 in. (180.34 cm) (R); Pain 8/10; 13:41 Body Mass Index 28.87 (93.89 kg, 180.34 cm) aa5 ED Course: 13:35 Patient arrived in ED. aa5 13:38 Arm band placed on. aa5 13:39 Triage completed. aa5 13:42 Maeve Mcclendon FNP-C is [facility]. snw 13:42 Santiago Key MD is Attending Physician. snw 13:43 Annie Mcintyre, RN is Primary Nurse. hb 13:47 Patient has correct armband on for positive identification. Bed in low position. Call hb light in reach. Side rails up X 1. 15:04 No provider procedures requiring assistance completed. Patient did not have IV access hb during this emergency room visit. Administered Medications: 14:29 Drug: [place] (7.5 mg-325 mg) 1 tabs Route: PO; hb 15:15 Follow up: Response: No adverse reaction; RASS: Alert and Calm (0) hb Outcome: 14:32 Discharge ordered by . snw 15:04 Discharged to home ambulatory. hb 15:04 Condition: stable 15:04 Discharge instructions given to patient, Instructed on discharge instructions, follow up and referral plans. medication usage, Demonstrated understanding of instructions, follow-up care, medications, Prescriptions given X 1. 15:05 Patient left the ED. hb Signatures: Maeve Mcclendon FNP-C FNP-Chantell Leblanc RN RN [facility] Annie Mcintyre RN RN hb Corrections: (The following items were deleted from the chart) 13:42 13:41 BP 139 / 88; Pulse 86bpm; Resp 16bpm; Spontaneous; Pulse Ox 97% RA; Temp 98.6F aa5 Oral; aa5
--- NOTE | 2018-12-08 14:33 | EDPHYS ---
Physician Documentation [facility] Name: Shoaib Freitas Jr Age: 53 yrs Sex: Male : 1965 Arrival Date: 12/08/2018 Time: 13:35 Bed 13 Private MD: ED Physician Santiago Key HPI: 12/08 15:01 This 53 yrs old Black Male presents to ER via Ambulatory with complaints of Leg snw Swelling. 15:01 The patient presents with pain, swelling. The complaints affect the lateral aspect of snw right calf and right macias. Onset: The symptoms/episode began/occurred 2 week(s) ago, and improved and then post working all day, area became more tender and swollen. Associated signs and symptoms: The patient has no apparent associated signs or symptoms. Severity of symptoms: At their worst the symptoms were moderate. The patient has experienced similar episodes in the past. as noted, hospitalized for cellulitis, rec'd Vanc. Outpt rx for levaquin finished. area had improved but worsened post standing all day at work. Historical: - Allergies: 13:40 No Known Allergies; aa5 - PMHx: 13:40 Gall Stones; history of dialysis; Hypertension; kidney transplant; Pancreatitis; aa5 - PSHx: 13:40 Cholecystectomy; Kidney transplant; aa5 - Immunization history:: Adult Immunizations unknown. - Social history:: Smoking status: Patient/guardian denies using tobacco. - Ebola Screening: : No symptoms or risks identified at this time. ROS: 15:00 Constitutional: Negative for fever, chills, and weight loss, Eyes: Negative for injury, snw pain, redness, and discharge, ENT: Negative for injury, pain, and discharge, Neck: Negative for injury, pain, and swelling, Cardiovascular: Negative for chest pain, palpitations, and edema, Respiratory: Negative for shortness of breath, cough, wheezing, and pleuritic chest pain, Abdomen/GI: Negative for abdominal pain, nausea, vomiting, diarrhea, and constipation, Back: Negative for injury and pain, : Negative for injury, bleeding, discharge, and swelling, Skin: Negative for injury, rash, and discoloration, Neuro: Negative for headache, weakness, numbness, tingling, and seizure. 15:00 MS/extremity: Positive for swelling, tenderness, warmth, of the right macias and lateral aspect of right calf. Exam: 14:58 Constitutional: This is a well developed, well nourished patient who is awake, alert, snw and in no acute distress. Head/Face: Normocephalic, atraumatic. Eyes: Pupils equal round and reactive to light, extra-ocular motions intact. Lids and lashes normal. Conjunctiva and sclera are non-icteric and not injected. Cornea within normal limits. Periorbital areas with no swelling, redness, or edema. ENT: Nares patent. No nasal discharge, no septal abnormalities noted. Tympanic membranes are normal and external auditory canals are clear. Oropharynx with no redness, swelling, or masses, exudates, or evidence of obstruction, uvula midline. Mucous membranes moist. Neck: Trachea midline, no thyromegaly or masses palpated, and no cervical lymphadenopathy. Supple, full range of motion without nuchal rigidity, or vertebral point tenderness. No Meningismus. Chest/axilla: Normal chest wall appearance and motion. Nontender with no deformity. No lesions are appreciated. Cardiovascular: Regular rate and rhythm with a normal S1 and S2. No gallops, murmurs, or rubs. Normal PMI, no JVD. No pulse deficits. Respiratory: Lungs have equal breath sounds bilaterally, clear to auscultation and percussion. No rales, rhonchi or wheezes noted. No increased work of breathing, no retractions or nasal flaring. Abdomen/GI: Soft, non-tender, with normal bowel sounds. No distension or tympany. No guarding or rebound. No evidence of tenderness throughout. Back: No spinal tenderness. No costovertebral tenderness. Full range of motion. Neuro: Awake and alert, GCS 15, oriented to person, place, time, and situation. Cranial nerves II-XII grossly intact. Motor strength 5/5 in all extremities. Sensory grossly intact. Cerebellar exam normal. Normal gait. Psych: Awake, alert, with orientation to person, place and time. Behavior, mood, and affect are within normal limits. 14:58 Skin: Appearance: normal except for affected area, swelling, noted on the lateral aspect of right calf and right macias, that are moderate, cellulitis, that is mild, well demarcated, on the lateral aspect of right calf and right macias. Vital Signs: 13:41 BP 139 / 88; Pulse 86; Resp 16 S; Temp 98.6(O); Pulse Ox 97% on R/A; Weight 93.89 kg aa5 (R); Height 5 ft. 11 in. (180.34 cm) (R); Pain 8/10; 13:41 Body Mass Index 28.87 (93.89 kg, 180.34 cm) aa5 MDM: 13:44 Patient medically screened. snw 14:59 Data reviewed: vital signs, nurses notes. Data interpreted: Pulse oximetry: on room air snw is 97 %. Interpretation: normal. Counseling: I had a detailed discussion with the patient and/or guardian regarding: the historical points, exam findings, and any diagnostic results supporting the discharge/admit diagnosis, the presence of at least one elevated blood pressure reading (>120/80) during this emergency department visit, the need for outpatient follow up, for definitive care, to return to the emergency department if symptoms worsen or persist or if there are any questions or concerns that arise at home. Special discussion: I have referred the patient to see his PCP for further evaluation of high blood pressure. I discussed in detail with the patient the higher chance of wound infection based on his presenting history. Based on the history and exam findings, there is no indication for further emergent testing or inpatient evaluation. I discussed with the patient/guardian the need to see the primary care provider for further evaluation of the symptoms. Administered Medications: 14:29 Drug: [place] (7.5 mg-325 mg) 1 tabs Route: PO; hb 15:15 Follow up: Response: No adverse reaction; RASS: Alert and Calm (0) hb Disposition: 12/08/18 14:32 Discharged to Home. Impression: Cellulitis of right lower limb. - Condition is Stable. - Discharge Instructions: Cellulitis, Adult, Heat Therapy. - Prescriptions for Doxycycline Hyclate 100 mg Oral Tablet - take 1 tablet by ORAL route every 12 hours; 20 tablet. - Medication Reconciliation Form, Thank You Letter, Antibiotic Education, Prescription Opioid Use, Work release form form. - Follow up: Private Physician; When: 2 - 3 days; Reason: Recheck today's complaints, Continuance of care, Re-evaluation by your physician. Follow up: Emergency Department; When: As needed; Reason: Worsening of condition. - Notes: Elevate lower extremity as much and as often as possible Signatures: Maeve Mcclendon, CULVERT INSTALLER-C CULVERT INSTALLER-Csnw Chantell Agrawal, RN RN aa5 Annie Mcintyre, RN RN Corrections: (The following items were deleted from the chart) 15:05 14:32 12/08/2018 14:32 Discharged to Home. Impression: Cellulitis of right lower limb. hb Condition is Stable. Forms are Medication Reconciliation Form, Thank You Letter, Antibiotic Education, Prescription Opioid Use. Follow up: Private Physician; When: 2 - 3 days; Reason: Recheck today's complaints, Continuance of care, Re-evaluation by your physician. Follow up: Emergency Department; When: As needed; Reason: Worsening of condition. snw
[2018-12-08 15:52] VITALS: BP 139/88; TEMP 98.6; O2SAT 97
== END 2018-12-08 15:05 | disposition home or self-care (01) ==
LOC: ER 13:33
DX: L03.115 Cellulitis of right lower limb (principal); I10 Essential (primary) hypertension; Z94.0 Kidney transplant status
CPT/HCPCS: 99283

== ENCOUNTER 2019-02-03 08:38 | Emergency (ER) | payer OTHER ==
[2019-02-03] MEDS ORDERED: CEPHALEXIN 250 MG CAP ONE (09:17)
--- NOTE | 2019-02-03 09:18 | EDPHYS ---
Physician Documentation [facility] Name: Shoaib Freitas Jr Age: 53 yrs Sex: Male : 1965 Arrival Date: 02/03/2019 Time: 08:40 Bed 16 Private MD: Jerome Yu ED Physician Panfilo Peter HPI: 02/03 09:12 This 53 yrs old Black Male presents to ER via Ambulatory with complaints of Hand kdr Problem. 09:12 The patient or guardian reports Tenderness, swelling and rash/scaling of skin with an kdr open wound on the palm of the left hand. 09:31 The complaints affect the left hand diffusely, right hand diffusely. Context: The kdr problem was sustained at home, resulted from Likely moist hands - he states it has been going on for months. Onset: The symptoms/episode began/occurred gradually, 2 month(s) ago. Modifying factors: The symptoms are alleviated by nothing, the symptoms are aggravated by The wound on his palm is made worse by movement of his hand. Severity of symptoms: At their worst the symptoms were mild, in the emergency department the symptoms are unchanged. The patient has not experienced similar symptoms in the past. The patient has not recently seen a physician. Historical: - Allergies: 08:44 No Known Allergies; rb1 - Home Meds: 08:44 diltiazem HCl 240 mg Oral cpER 1 cap once daily for Hypertension [Active]; prednisone 5 rb1 mg Oral tab once daily [Active]; valsartan 40 mg Oral tab 1 tab once daily for Hypertension [Active]; - PMHx: 08:44 Gall Stones; history of dialysis; Hypertension; kidney transplant; Pancreatitis; rb1 - PSHx: 08:44 Cholecystectomy; Kidney transplant; rb1 - Immunization history:: Adult Immunizations up to date. - Social history:: Smoking status: Patient/guardian denies using tobacco. - Ebola Screening: : Patient negative for fever greater than or equal to 101.5 degrees Fahrenheit, and additional compatible Ebola Virus Disease symptoms. ROS: 09:31 Constitutional: Negative for fever, chills, and weight loss, Eyes: Negative for injury, kdr pain, redness, and discharge, Neck: Negative for injury, pain, and swelling, Cardiovascular: Negative for chest pain, palpitations, and edema, Respiratory: Negative for shortness of breath, cough, wheezing, and pleuritic chest pain, Abdomen/GI: Negative for abdominal pain, nausea, vomiting, diarrhea, and constipation, Back: Negative for injury and pain, : Negative for injury, bleeding, discharge, and swelling, MS/Extremity: Negative for injury and deformity, Neuro: Negative for headache, weakness, numbness, tingling, and seizure activity. Psych: Negative for depression, anxiety, suicide ideation, homicidal ideation, and hallucinations, Allergy/Immunology: Negative for hives, rash, and allergies, Endocrine: Negative for neck swelling, polydipsia, polyuria, polyphagia, and marked weight changes, Hematologic/Lymphatic: Negative for swollen nodes, abnormal bleeding, and unusual bruising. 09:31 Skin: Positive for cellulitis, rash, diffusely, Over both hands. open wound to palm of left hand with surrounding erythema. Exam: 09:31 Constitutional: This is a well developed, well nourished patient who is awake, alert, kdr and in no acute distress. 09:31 Musculoskeletal/extremity: Both hands have a minor to mild desquamation diffusely. There is an open wound on the palm of the left hand. He is otherwise stable and without problem. Vital Signs: 08:44 BP 142 / 80; Pulse 92; Resp 17; Temp 97.8(TE); Pulse Ox 96% on R/A; Weight 103.42 kg rb1 (R); Height 5 ft. 11 in. (180.34 cm) (R); Pain 7/10; 09:26 BP 136 / 80; Pulse 82; Resp 19; Pulse Ox 99% on R/A; rb1 08:44 Body Mass Index 31.80 (103.42 kg, 180.34 cm) rb1 MDM: 09:16 Patient medically screened. kdr 09:31 Data reviewed: vital signs, nurses notes, lab test result(s), radiologic studies. kdr Counseling: I had a detailed discussion with the patient and/or guardian regarding: the historical points, exam findings, and any diagnostic results supporting the discharge/admit diagnosis, the need for outpatient follow up. Administered Medications: 09:20 Drug: KeFLEX 500 mg Route: PO; rb1 09:40 Follow up: Response: No adverse reaction rb1 09:25 Drug: Tylenol 1000 mg Route: PO; rb1 09:40 Follow up: Response: No adverse reaction rb1 Disposition: 02/03/19 09:16 Discharged to Home. Impression: Cellulitis of left upper limb - Hand, Bilateral Hand Fungal Infection. - Condition is Stable. - Discharge Instructions: Cellulitis, Adult, [facility]nd[facility]. - Prescriptions for Clotrimazole 1 % Topical Cream - Apply to affected area 1 application by TOPICAL route every 12 hours for 7 days Apply to both hands twice a day; 15 gram. Keflex 500 mg Oral Capsule - take 1 capsule by ORAL route every 6 hours for 10 days; 40 capsule. Tramadol 50 mg Oral Tablet - take 1 tablet by ORAL route every 8 hours as needed; 12 tablet. - Medication Reconciliation Form, Thank You Letter, Antibiotic Education, Work release form form. - Follow up: Jerome Yu MD; When: 2 - 3 days; Reason: If symptoms return, Further diagnostic work-up, Recheck today's complaints, Continuance of care, Re-evaluation by your physician. - Problem is new. - Symptoms have improved. - Notes: Keep your hands dry as much as possible and avoid weaing ruberized gloves as much as possible until hands are completely healed. Signatures: Panfilo Peter MD MD kdr Valerie Shepherd RN RN rb1 Corrections: (The following items were deleted from the chart) 09:42 09:16 02/03/2019 09:16 Discharged to Home. Impression: Cellulitis of left upper limb - rb1 Hand; Bilateral Hand Fungal Infection. Condition is Stable. Forms are Medication Reconciliation Form, Thank You Letter, Antibiotic Education, Prescription Opioid Use. Follow up: Jerome Yu; When: 2 - 3 days; Reason: If symptoms return, Further diagnostic work-up, Recheck today's complaints, Continuance of care, Re-evaluation by your physician. Problem is new. Symptoms have improved. kdr
--- NOTE | 2019-02-03 09:18 | ER ---
Nurse's Notes [facility] Name: Shoaib Freitas Jr Age: 53 yrs Sex: Male : 1965 Arrival Date: 02/03/2019 Time: 08:40 Bed 16 Private MD: Jerome Yu Diagnosis: Cellulitis of left upper limb-Hand;Bilateral Hand Fungal Infection Presentation: 02/03 08:44 Onset of symptoms is unknown. rb1 08:51 Presenting complaint: Patient states: Hands are swollen, itching, hurting and peeling. 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 Transition of care: patient was not received from another setting of care. Risk Assessment: Do you want to hurt yourself or someone else? Patient reports no desire to harm self or others. Initial Sepsis Screen: Does the patient meet any 2 criteria? No. Patient's initial sepsis screen is negative. Does the patient have a suspected source of infection? No. Patient's initial sepsis screen is negative. Care prior to arrival: None. 08:51 Method Of Arrival: Ambulatory [facility] 08:51 Acuity: COBY 4 rb1 Triage Assessment: 08:44 General: Appears in no apparent distress. comfortable, Behavior is calm, cooperative, rb1 Denies fever, feeling ill. Pain: Complains of pain in right hand and left hand Pain currently is 7 out of 10 on a pain scale. Neuro: Level of Consciousness is awake, alert, obeys commands, Oriented to person, place, time, situation. Cardiovascular: Capillary refill < 3 seconds is brisk in bilateral fingers. Respiratory: Airway is patent Respiratory effort is even, unlabored, Respiratory pattern is regular, symmetrical. GI: No signs and/or symptoms were reported involving the gastrointestinal system. : No signs and/or symptoms were reported regarding the genitourinary system. Derm: bilateral hands are swollen, peeling, itching, and hurting. Musculoskeletal: Range of motion: intact in all extremities. Historical: - Allergies: 08:44 No Known Allergies; rb1 - Home Meds: 08:44 diltiazem HCl 240 mg Oral cpER 1 cap once daily for Hypertension [Active]; prednisone 5 rb1 mg Oral tab once daily [Active]; valsartan 40 mg Oral tab 1 tab once daily for Hypertension [Active]; - PMHx: 08:44 Gall Stones; history of dialysis; Hypertension; kidney transplant; Pancreatitis; rb1 - PSHx: 08:44 Cholecystectomy; Kidney transplant; rb1 - Immunization history:: Adult Immunizations up to date. - Social history:: Smoking status: Patient/guardian denies using tobacco. - Ebola Screening: : Patient negative for fever greater than or equal to 101.5 degrees Fahrenheit, and additional compatible Ebola Virus Disease symptoms. Screenin:44 Abuse screen: Denies threats or abuse. Nutritional screening: No deficits noted. rb1 Tuberculosis screening: No symptoms or risk factors identified. Fall Risk None identified. Assessment: 08:44 General: See triage assessment. rb1 08:44 General: Pt. reports this has been going on for months. rb1 09:26 Reassessment: Patient appears in no apparent distress at this time. No changes from rb1 previously documented assessment. Vital Signs: 08:44 BP 142 / 80; Pulse 92; Resp 17; Temp 97.8(TE); Pulse Ox 96% on R/A; Weight 103.42 kg rb1 (R); Height 5 ft. 11 in. (180.34 cm) (R); Pain 7/10; 09:26 BP 136 / 80; Pulse 82; Resp 19; Pulse Ox 99% on R/A; rb1 08:44 Body Mass Index 31.80 (103.42 kg, 180.34 cm) rb1 ED Course: 08:40 Patient arrived in ED. ag5 08:41 Jerome Yu MD is Private Physician. ag5 08:44 Valerie Shepherd, RN is Primary Nurse. rb1 08:44 Panfilo Peter MD is Attending Physician. kdr 08:44 Arm band placed on right wrist. rb1 08:44 Patient has correct armband on for positive identification. Bed in low position. Call rb1 light in reach. Side rails up X 1. Pulse ox on. NIBP on. 08:52 Triage completed. rb1 09:14 Jerome Yu MD is Referral Physician. kdr 09:42 No provider procedures requiring assistance completed. Patient did not have IV access rb1 during this emergency room visit. Administered Medications: 09:20 Drug: KeFLEX 500 mg Route: PO; rb1 09:40 Follow up: Response: No adverse reaction rb1 09:25 Drug: Tylenol 1000 mg Route: PO; rb1 09:40 Follow up: Response: No adverse reaction rb1 Outcome: 09:16 Discharge ordered by . kdr 09:42 Patient left the ED. rb1 09:42 Discharged to home ambulatory. rb1 09:42 Condition: stable 09:42 Discharge instructions given to patient, Instructed on discharge instructions, follow up and referral plans. medication usage, Demonstrated understanding of instructions, follow-up care, medications, Prescriptions given X 3. Signatures: Panfilo Peter MD MD kdr Valerie Shepherd RN RN rb1 [place] Russell ag5 Corrections: (The following items were deleted from the chart) 08:57 08:51 Presenting complaint: Patient states: Hands are swollen, itching, hurting and rb1 peeling. rb1
[2019-02-03] MEDS ORDERED: ACETAMINOPHEN 500 MG TAB ONE (09:22)
[2019-02-03 09:59] VITALS: TEMP 97.8
[2019-02-03 10:00] VITALS: BP 136/80; O2SAT 99
== END 2019-02-03 09:42 | disposition home or self-care (01) ==
LOC: ER 08:38
DX: L03.114 Cellulitis of left upper limb (principal); L03.113 Cellulitis of right upper limb; B35.2 Tinea manuum; I10 Essential (primary) hypertension; Z94.0 Kidney transplant status
CPT/HCPCS: 99283

== ENCOUNTER 2019-03-16 13:29 | Emergency (ER) | payer OTHER ==
[2019-03-16] MEDS ORDERED: ONDANSETRON 4 MG (ODT) TAB ONE ×2 (14:40→14:48)
[2019-03-16] MEDS ORDERED: HYDROCODONE/APAP 10/325 TAB ONE (14:40)
--- NOTE | 2019-03-16 14:58 | RAD REPORT ---
EXAM DESCRIPTION: CT - Abdomen Pelvis Wo Contrast - 03/16/2019 2:42 pm CLINICAL HISTORY: Abdominal pain diarrhea COMPARISON: November 2018 TECHNIQUE: Computed axial tomography of the abdomen and pelvis was obtained. IV and oral contrast we re not requested. All CT scans are performed using dose optimization technique as appropriate and may include automated exposure control or mA/KV adjustment according to patient size. FINDINGS: The evaluation of solid organs, vessels and bowel is limited secondary to the lack of con trast administration. The liver, spleen, pancreas, and adrenals appear grossly normal. [place] kidneys are very small. A transplant kidney is present within the left pelvis/lower abdomen. T here is no hydronephrosis. A renal calculus is not seen. . Mild stranding is present within the perir enal fat The appendix is normal. There is no evidence of diverticulitis. IMPRESSION: Mild stranding within the perirenal fat adjacent to the transplant kidney. This is a non specific finding but can indicate inflammation
[2019-03-16 15:14] LABS: Absolute Lymphocytes (CBC) 2.3 K/uL (0.7-4.9); Basophils % 0.7 % (0-1.3); Hematocrit 37.8 % (39.6-49.0); Lymphocytes % 25.7 % (15.3-44.8); MPV 7.6 fL (7.6-11.3); RBC Red Blood Cell Count 4.05 M/uL (4.33-5.43)
[2019-03-16 15:46] LABS: Urine Blood 2+ (NEG); Urine Glucose NEGATIVE (NEG); Urine Protein 3+ (NEG); Urine Specific Gravity >1.030 (1.005-1.030); Urine pH 5.5 (5.0-7.0)
[2019-03-16 15:47] LABS: Urine Bacteria <20 /HPF (NONE SEEN); Urine Culture Reflex Order NOT NEEDED
[2019-03-16 16:09] LABS: Albumin 3.7 g/dL (3.4-5.0); Bilirubin Total 0.4 mg/dL (0.2-1.0); Potassium 3.8 mmol/L (3.5-5.1); Protein, Total 7.3 g/dL (6.4-8.2)
--- NOTE | 2019-03-16 16:32 | EDPHYS ---
Physician Documentation [facility] Name: Shoaib Freitas Jr Age: 54 yrs Sex: Male : 1965 Arrival Date: 03/16/2019 Time: 13:32 Bed 20 Private MD: Jerome Yu ED Physician Charles Cobian HPI: 03/16 16:03 This 54 yrs old Black Male presents to ER via Ambulatory with complaints of Back Pain, ps1 Abdominal Pain. 16:03 patient works at [employer] and has encountered sick people in the community. He states ps1 that he has had nonspecific back pain and GI upset with diarrhea with epigastric cramping. He has a history of renal transplant 25 years ago 2/2 hypertension. On cellcept. No medications other than tylenol. Onset was 2 days ago. . Historical: - Allergies: 13:37 No Known Allergies; hb - Home Meds: 13:37 diltiazem HCl 240 mg Oral cpER 1 cap once daily for Hypertension [Active]; prednisone 5 hb mg Oral tab once daily [Active]; valsartan 40 mg Oral tab 1 tab once daily for Hypertension [Active]; - PMHx: 13:37 history of dialysis; Gall Stones; Hypertension; kidney transplant; Pancreatitis; hb - PSHx: 13:37 Cholecystectomy; Kidney transplant; hb - Immunization history:: Adult Immunizations up to date. - Social history:: Smoking status: Patient/guardian denies using tobacco. - Ebola Screening: : No symptoms or risks identified at this time. ROS: 16:05 Constitutional: Negative for fever, chills, and weight loss, Eyes: Negative for injury, ps1 pain, redness, and discharge, Cardiovascular: Negative for chest pain, palpitations, and edema, Respiratory: Negative for shortness of breath, cough, wheezing, and pleuritic chest pain, MS/Extremity: Negative for injury and deformity, Skin: Negative for injury, rash, and discoloration, Neuro: Negative for headache, weakness, numbness, tingling, and seizure. 16:05 Abdomen/GI: Positive for abdominal pain. 16:05 Abdomen/GI: Positive for diarrhea. 16:05 Back: Positive for of the left subscapular area and right subscapular area. Exam: 16:05 Constitutional: This is a well developed, well nourished patient who is awake, alert, ps1 and in no acute distress. Head/Face: Normocephalic, atraumatic. Eyes: Pupils equal round and reactive to light, extra-ocular motions intact. Lids and lashes normal. Conjunctiva and sclera are non-icteric and not injected. Chest/axilla: Normal chest wall appearance and motion. Nontender with no deformity. No lesions are appreciated. Cardiovascular: Regular rate and rhythm. No gallops, murmurs, or rubs. Normal PMI, no JVD. No pulse deficits. Respiratory: Lungs have equal breath sounds bilaterally, clear to auscultation and percussion. No rales, rhonchi or wheezes noted. No increased work of breathing, no retractions or nasal flaring. Skin: Warm, dry with normal turgor. Normal color with no rashes, no lesions, and no evidence of cellulitis. 16:05 Abdomen/GI: Inspection: abdomen appears normal, scar(s), are noted in the left lower quadrant, Bowel sounds: normal, Palpation: abdomen is soft and non-tender. Vital Signs: 13:37 BP 153 / 97; Pulse 75; Resp 16; Temp 98.5; Pulse Ox 97% on R/A; Weight 93.89 kg; Height hb 5 ft. 11 in. (180.34 cm); Pain 7/10; 15:54 BP 156 / 99; Pulse 70; Resp 16; Pulse Ox 100% ; bp 17:17 BP 150 / 93; Pulse 64; Resp 17; Temp 98.5; Pulse Ox 98% ; bp 13:37 Body Mass Index 28.87 (93.89 kg, 180.34 cm) hb MDM: 14:26 Patient medically screened. ps1 16:05 Data reviewed: vital signs, nurses notes, lab test result(s), radiologic studies, and ps1 as a result, I will discharge patient. Counseling: I had a detailed discussion with the patient and/or guardian regarding: the historical points, exam findings, and any diagnostic results supporting the discharge/admit diagnosis, lab results, radiology results, the need for outpatient follow up, to return to the emergency department if symptoms worsen or persist or if there are any questions or concerns that arise at home. 03/16 14:28 Order name: CBC with Diff; Complete Time: 15:26 ps1 03/16 14:28 Order name: CMP; Complete Time: 16:32 ps1 03/16 14:28 Order name: Flu; Complete Time: 16:32 ps1 03/16 14:28 Order name: CT Abd/Pelvis - Without Contrast; Complete Time: 15:06 ps1 03/16 14:56 Order name: Urine Microscopic Only; Complete Time: 16:03 dh3 03/16 15:00 Order name: Urine Dipstick--Ancillary (enter results); Complete Time: 16:03 bd 03/16 14:28 Order name: Urine Dipstick-Ancillary (obtain specimen); Complete Time: 14:50 ps1 Administered Medications: 14:49 Drug: [place] 10 mg-325 mg 1 tabs Route: PO; bp 15:55 Follow up: Response: Pain is decreased bp 14:49 Drug: Zofran 4 mg Route: PO; bp 15:55 Follow up: Response: Nausea is decreased bp Disposition: 03/16/19 16:31 Discharged to Home. Impression: Epigastric pain, Thoracic back pain, Microscopic hematuria. - Condition is Stable. - Prescriptions for Bentyl 10 mg Oral Capsule - take 1 capsule by ORAL route every 6 hours As needed; 40 capsule. Carafate 1 gram Oral Tablet - take 1 tablet by ORAL route 1-2 times daily take on an empty stomach, beginning on waking and last dose at bedtime; 100 tablet. Zofran 4 mg Oral Tablet - take 1 tablet by ORAL route every 12 hours As needed; 20 tablet. - Work release form, Medication Reconciliation Form, Thank You Letter, Antibiotic Education, Prescription Opioid Use form. - Follow up: Jerome Yu MD; When: As needed; Reason: Further diagnostic work-up, Recheck today's complaints, Continuance of care, Re-evaluation by your physician. Follow up: Emergency Department; When: As needed; Reason: Worsening of condition. - Problem is new. - Symptoms are unchanged. Signatures: Dispatcher [employer] EDUT Tere Powell RN RN ss Baxter, Heather, RN RN hb Peltier, Brian, RN RN Charles Reddy MD MD ps1 Corrections: (The following items were deleted from the chart) 16:20 16:03 patient works at [employer] and has encountered sick people in the community. He ps1 states that he has had nonspecific back pain and GI upset with diarrhea. He has a history of renal transplant 25 years ago 2/2 hypertension. On cellcept. No medications other than tylenol. Onset was 2 days ago. . ps1 16:31 16:31 03/16/2019 16:31 Discharged to Home. Impression: Epigastric pain; Thoracic back ps1 pain. Condition is Stable. Forms are Medication Reconciliation Form, Thank You Letter, Antibiotic Education, Prescription Opioid Use. Follow up: Jerome Yu; When: As needed; Reason: Further diagnostic work-up, Recheck today's complaints, Continuance of care, Re-evaluation by your physician. Follow up: Emergency Department; When: As needed; Reason: Worsening of condition. ps1 16:33 16:31 03/16/2019 16:31 Discharged to Home. Impression: Epigastric pain; Thoracic back ps1 pain. Condition is Stable. Forms are Medication Reconciliation Form, Thank You Letter, Antibiotic Education, Prescription Opioid Use. Follow up: Jerome Yu; When: As needed; Reason: Further diagnostic work-up, Recheck today's complaints, Continuance of care, Re-evaluation by your physician. Follow up: Emergency Department; When: As needed; Reason: Worsening of condition. Problem is new. Symptoms are unchanged. ps1 17:15 16:33 03/16/2019 16:31 Discharged to Home. Impression: Epigastric pain; Thoracic back ss pain; Microscopic hematuria. Condition is Stable. Prescriptions for Bentyl 10 mg Oral Capsule - take 1 capsule by ORAL route every 6 hours As needed; 40 capsule, Carafate 1 gram Oral Tablet - take 1 tablet by ORAL route 1-2 times daily take on an empty stomach, beginning on waking and last dose at bedtime; 100 tablet, Zofran 4 mg Oral Tablet - take 1 tablet by ORAL route every 12 hours As needed; 20 tablet. and Forms are Medication Reconciliation Form, Thank You Letter, Antibiotic Education, Prescription Opioid Use. Follow up: Jerome Yu; When: As needed; Reason: Further diagnostic work-up, Recheck today's complaints, Continuance of care, Re-evaluation by your physician. Follow up: Emergency Department; When: As needed; Reason: Worsening of condition. Problem is new. Symptoms are unchanged. ps1
--- NOTE | 2019-03-16 16:32 | ER ---
Nurse's Notes [facility] Name: Shoaib Freitas Jr Age: 54 yrs Sex: Male : 1965 Arrival Date: 03/16/2019 Time: 13:32 Bed 20 Private MD: Jerome Yu Diagnosis: Epigastric pain;Thoracic back pain;Microscopic hematuria Presentation: 03/16 13:35 Presenting complaint: Epigastric pain that radiates to mid back and nausea z 3 days, hb diarrhea since this morning. Denies fever. Transition of care: patient was not received from another setting of care. Onset of symptoms was March 13, 2019. Risk Assessment: Do you want to hurt yourself or someone else? Patient reports no desire to harm self or others. Initial Sepsis Screen: Does the patient meet any 2 criteria? No. Patient's initial sepsis screen is negative. Does the patient have a suspected source of infection? No. Patient's initial sepsis screen is negative. Care prior to arrival: None. 13:35 Method Of Arrival: Ambulatory hb 13:35 Acuity: COBY 3 hb Triage Assessment: 13:50 General: Appears in no apparent distress. comfortable, Behavior is calm, cooperative, bp appropriate for age. Pain: Complains of pain in abdomen. EENT: No deficits noted. Neuro: No deficits noted. Cardiovascular: No deficits noted. Respiratory: No deficits noted. GI: Reports upper abdominal pain, nausea. : No signs and/or symptoms were reported regarding the genitourinary system. Derm: No deficits noted. Musculoskeletal: Circulation, motion, and sensation intact. Range of motion: intact in all extremities. Historical: - Allergies: 13:37 No Known Allergies; hb - Home Meds: 13:37 diltiazem HCl 240 mg Oral cpER 1 cap once daily for Hypertension [Active]; prednisone 5 hb mg Oral tab once daily [Active]; valsartan 40 mg Oral tab 1 tab once daily for Hypertension [Active]; - PMHx: 13:37 history of dialysis; Gall Stones; Hypertension; kidney transplant; Pancreatitis; hb - PSHx: 13:37 Cholecystectomy; Kidney transplant; hb - Immunization history:: Adult Immunizations up to date. - Social history:: Smoking status: Patient/guardian denies using tobacco. - Ebola Screening: : No symptoms or risks identified at this time. Screenin:32 Abuse screen: Denies threats or abuse. Denies injuries from another. Nutritional bp screening: No deficits noted. Tuberculosis screening: No symptoms or risk factors identified. Fall Risk None identified. Assessment: 13:50 General: SEE TRIAGE NOTE. Neuro: Level of Consciousness is awake, alert, obeys bp commands, Oriented to person, place, time, situation, Appropriate for age. 15:03 Reassessment: PIV DEFERRED. LAB SPECIMEN OBTAINED BY PHLEBOTOMY. bp 17:19 Reassessment: PT D/C HOME AMBULATORY WITH FAMILY, DX WITH EPIGASTRIC PAIN. bp Vital Signs: 13:37 BP 153 / 97; Pulse 75; Resp 16; Temp 98.5; Pulse Ox 97% on R/A; Weight 93.89 kg; Height hb 5 ft. 11 in. (180.34 cm); Pain 7/10; 15:54 BP 156 / 99; Pulse 70; Resp 16; Pulse Ox 100% ; bp 17:17 BP 150 / 93; Pulse 64; Resp 17; Temp 98.5; Pulse Ox 98% ; bp 13:37 Body Mass Index 28.87 (93.89 kg, 180.34 cm) hb ED Course: 13:32 Patient arrived in ED. mr 13:33 Jerome Yu MD is Private Physician. mr 13:36 Triage completed. hb 13:37 Arm band placed on. hb 14:13 Mic Cardozo, RN is Primary Nurse. bp 14:14 Charles Cobian MD is Attending Physician. ps1 14:32 Patient has correct armband on for positive identification. Bed in low position. Call bp light in reach. Side rails up X2. 14:42 CT Abd/Pelvis - Without Contrast In Process Unspecified. EDMS 14:56 Urine collected: clean catch specimen, clear. dh3 16:30 Jerome Yu MD is Referral Physician. ps1 17:13 No provider procedures requiring assistance completed. Patient did not have IV access ss during this emergency room visit. Administered Medications: 14:49 Drug: [place] 10 mg-325 mg 1 tabs Route: PO; bp 15:55 Follow up: Response: Pain is decreased bp 14:49 Drug: Zofran 4 mg Route: PO; bp 15:55 Follow up: Response: Nausea is decreased bp Outcome: 16:31 Discharge ordered by . ps1 17:13 Discharged to home ambulatory, with family. ss 17:13 Condition: good 17:13 Discharge instructions given to patient, family, Instructed on discharge instructions, follow up and referral plans. medication usage, Demonstrated understanding of instructions, follow-up care, medications, Prescriptions given X 3. 17:15 Patient left the ED. ss Signatures: Dispatcher [employer] EDWI Eufemia Pires mr Tere Powell RN RN ss Annie Mcintyre RN RN Carine Johnson [facility] Mic Cardozo RN RN bp Singer, Phillip, MD MD ps1
[2019-03-16 18:32] VITALS: TEMP 98.5
[2019-03-16 18:34] VITALS: BP 156/99; O2SAT 100
== END 2019-03-16 17:15 | disposition home or self-care (01) ==
LOC: ER 13:29
DX: M54.6 Pain in thoracic spine (principal); R31.29 Other microscopic hematuria; I10 Essential (primary) hypertension
CPT/HCPCS: 36415; 74176; 80053; 81003; 81015; 85025; 87804; 99284

== ENCOUNTER 2019-03-29 07:33 | Emergency (ER) | payer OTHER ==
--- NOTE | 2019-03-29 08:57 | RAD REPORT ---
EXAM DESCRIPTION: CT - Abdomen Pelvis Wo Contrast - 03/29/2019 8:42 am CLINICAL HISTORY: Abdominal pain COMPARISON: March 16, 2019 TECHNIQUE: Computed axial tomography of the abdomen and pelvis was obtained. IV and oral contrast we re not requested. All CT scans are performed using dose optimization technique as appropriate and may include automated exposure control or mA/KV adjustment according to patient size. FINDINGS: The evaluation of solid organs, vessels and bowel is limited secondary to the lack of con trast administration. Stranding is present adjacent to proximal duodenum/pancreatic neck. Remainder of the pancreas is unre markable Cholecystectomy The liver, spleen, and adrenals appear grossly normal. [place] kidneys are very small. Transplant kidney within the left pelvis/ lower abdomen. Perirenal str anding is again demonstrated. No hydronephrosis. No renal calculus. The appendix is normal. There is no evidence of diverticulitis. IMPRESSION: Stranding adjacent to the proximal duodenum/pancreatic neck may indicate duodenitis or p ancreatitis Stranding adjacent to the transplant kidney is nonspecific but can indicate inflammation
--- NOTE | 2019-03-29 09:10 | RAD REPORT ---
EXAM DESCRIPTION: [place] Single View03/29/2019 8:25 am CLINICAL HISTORY: Abdominal pain COMPARISON: November 2018 FINDINGS: The lungs appear clear of acute infiltrate. The heart is normal size IMPRESSION: No acute abnormalities displayed
[2019-03-29 09:21] LABS: Absolute Lymphocytes (CBC) 1.9 K/uL (0.7-4.9); Basophils % 0.5 % (0-1.3); Hematocrit 41.2 % (39.6-49.0); Lymphocytes % 17.7 % (15.3-44.8); MPV 7.9 fL (7.6-11.3); RBC Red Blood Cell Count 4.26 M/uL (4.33-5.43)
[2019-03-29 09:22] LABS: Albumin 3.7 g/dL (3.4-5.0); Bilirubin Direct 0.1 mg/dL (0-0.2); Bilirubin Total 0.4 mg/dL (0.2-1.0); Potassium 4.3 mmol/L (3.5-5.1)
[2019-03-29] MEDS ORDERED: ONDANSETRON 4 MG (ODT) TAB ONE (09:30)
[2019-03-29] MEDS ORDERED: HYDROCODONE/APAP 10/325 TAB ONE (09:30)
[2019-03-29] MEDS ORDERED: PANTOPRAZOLE 40MG TABLET PO ONE (09:31)
--- NOTE | 2019-03-29 09:31 | EDPHYS ---
Physician Documentation [facility] Name: Shoaib Freitas Jr Age: 54 yrs Sex: Male : 1965 Arrival Date: 03/29/2019 Time: 07:34 Bed 24 Private MD: Jerome Yu ED Physician Santiago Key HPI: 03/29 08:48 This 54 yrs old Black Male presents to ER via Ambulatory with complaints of Abdominal kb Pain, Back Pain. 08:48 The patient presents with abdominal pain that is diffuse. Onset: The symptoms/episode kb began/occurred 2 week(s) ago. The symptoms do not radiate. Associated signs and symptoms: Pertinent positives: nausea. The symptoms are described as constant. Modifying factors: The symptoms are alleviated by nothing, the symptoms are aggravated by nothing. Severity of pain: At its worst the pain was moderate in the emergency department the pain is unchanged. The patient has not experienced similar symptoms in the past. The patient has been recently seen at the [facility] Emergency Department, a couple of weeks ago, for similar complaints. Pt reports nausea, abd pain and upper back pain for 2 weeks. Was seen for this at the beginning of onset and told there was nothing wrong, but to come back if the symptoms got worse and they have. Historical: - Allergies: 07:45 No Known Allergies; em - PMHx: 07:45 Gall Stones; history of dialysis; Hypertension; kidney transplant; Pancreatitis; em - PSHx: 07:45 Kidney transplant; Cholecystectomy; em - Immunization history:: Last tetanus immunization: not immunized. - Social history:: Smoking status: Patient/guardian denies using tobacco. - Ebola Screening: : Patient negative for fever greater than or equal to 101.5 degrees Fahrenheit, and additional compatible Ebola Virus Disease symptoms Patient denies exposure to infectious person Patient denies travel to an Ebola-affected area in the 21 days before illness onset No symptoms or risks identified at this time. ROS: 08:47 Constitutional: Negative for fever, chills, and weight loss, ENT: Negative for injury, kb pain, and discharge, Neck: Negative for injury, pain, and swelling, Cardiovascular: Negative for chest pain, palpitations, and edema, Respiratory: Negative for shortness of breath, cough, wheezing, and pleuritic chest pain, : Negative for injury, bleeding, discharge, and swelling, MS/Extremity: Negative for injury and deformity, Skin: Negative for injury, rash, and discoloration, Neuro: Negative for headache, weakness, numbness, tingling, and seizure. 08:47 Abdomen/GI: Positive for abdominal pain, nausea. 08:47 Back: Positive for pain at rest, pain with movement, of the left trapezius, right trapezius, left scapular area, right scapular area, left subscapular area, right subscapular area and thoracic area. Exam: 08:47 Constitutional: This is a well developed, well nourished patient who is awake, alert, kb and in no acute distress. Head/Face: Normocephalic, atraumatic. ENT: Nares patent. No nasal discharge, no septal abnormalities noted. Tympanic membranes are normal and external auditory canals are clear. Oropharynx with no redness, swelling, or masses, exudates, or evidence of obstruction, uvula midline. Mucous membranes moist. Neck: Trachea midline, no thyromegaly or masses palpated, and no cervical lymphadenopathy. Supple, full range of motion without nuchal rigidity, or vertebral point tenderness. No Meningismus. Chest/axilla: Normal chest wall appearance and motion. Nontender with no deformity. No lesions are appreciated. Cardiovascular: Regular rate and rhythm with a normal S1 and S2. No gallops, murmurs, or rubs. Normal PMI, no JVD. No pulse deficits. Respiratory: Lungs have equal breath sounds bilaterally, clear to auscultation and percussion. No rales, rhonchi or wheezes noted. No increased work of breathing, no retractions or nasal flaring. Skin: Warm, dry with normal turgor. Normal color with no rashes, no lesions, and no evidence of cellulitis. MS/ Extremity: Pulses equal, no cyanosis. Neurovascular intact. Full, normal range of motion. Neuro: Awake and alert, GCS 15, oriented to person, place, time, and situation. Cranial nerves II-XII grossly intact. Motor strength 5/5 in all extremities. Sensory grossly intact. Cerebellar exam normal. Normal gait. 08:47 Abdomen/GI: Inspection: abdomen appears normal, Bowel sounds: normal, in all quadrants, Palpation: soft, in all quadrants, moderate abdominal tenderness, in all quadrants. 08:47 Back: pain, that is moderate, of the left trapezius, right trapezius, left scapular area, right scapular area, left subscapular area, right subscapular area and thoracic area, ROM is normal, painless, normal spinal alignment noted. Vital Signs: 07:45 BP 131 / 85; Pulse 87; Resp 18; Temp 97.9; Pulse Ox 100% on R/A; Weight 94.35 kg; em Height 5 ft. 11 in. (180.34 cm); Pain 8/10; 09:22 BP 142 / 95; Pulse 75; Resp 18; Pulse Ox 97% on R/A; Pain 8/10; em 07:45 Body Mass Index 29.01 (94.35 kg, 180.34 cm) em MDM: 07:42 Patient medically screened. kb 08:47 Data reviewed: vital signs, nurses notes. Data interpreted: Pulse oximetry: on room air kb is 100 %. Interpretation: normal. 09:30 Counseling: I had a detailed discussion with the patient and/or guardian regarding: the kb historical points, exam findings, and any diagnostic results supporting the discharge/admit diagnosis, lab results, radiology results, the need for outpatient follow up, a mangle tender, to return to the emergency department if symptoms worsen or persist or if there are any questions or concerns that arise at home. 03/29 07:49 Order name: Basic Metabolic Panel 03/29 07:49 Order name: CBC with Diff 03/29 07:49 Order name: Hepatic Function 03/29 07:49 Order name: Lipase 03/29 09:23 Order name: Basic Metabolic Panel; Complete Time: 09:24 EDMS 03/29 09:23 Order name: Liver (Hepatic) Function; Complete Time: 09:24 EDMS 03/29 07:49 Order name: Chest Single View XRAY 03/29 07:49 Order name: CT Abd/Pelvis - Without Contrast 03/29 08:58 Order name: CT; Complete Time: 08:58 EDMS 03/29 09:11 Order name: RAD; Complete Time: 09:12 EDMS 03/29 09:23 Order name: Lipase; Complete Time: 09:24 EDMS 03/29 09:27 Order name: CBC with Automated Diff; Complete Time: 09:59 EDMS 03/29 09:58 Order name: Manual Differential; Complete Time: 09:59 EDMA 03/29 07:49 Order name: Labs collected and sent; Complete Time: 08:43 kb Administered Medications: 09:32 Drug: Zofran 4 mg Route: PO; em 09:45 Follow up: Response: No adverse reaction; Nausea is decreased em 09:49 Drug: ProTONIX 40 mg Route: PO; em 09:55 Follow up: Response: Medication administered at discharge. em 09:49 Drug: [place] 10 mg-325 mg 1 tabs Route: PO; em 09:56 Follow up: Response: Medication administered at discharge. em 09:49 Drug: Cipro 500 mg Route: PO; em 09:56 Follow up: Response: Medication administered at discharge. em 09:49 Drug: Flagyl 500 mg Route: PO; em 09:56 Follow up: Response: Medication administered at discharge. em Disposition: 17:22 Co-signature as Attending Physician, Santiago Key MD. ma2 Disposition: 03/29/19 09:30 Discharged to Home. Impression: Duodenitis. - Condition is Stable. - Discharge Instructions: Duodenitis. - Prescriptions for Cipro 500 mg Oral Tablet - take 1 tablet by ORAL route every 12 hours for 10 days; 20 tablet. Flagyl 500 mg Oral Tablet - take 1 tablet by ORAL route every 8 hours for 10 days; 30 tablet. Protonix 40 mg Oral Tablet - take 1 tablet by ORAL route once daily; 30 tablet. Zofran 4 mg Oral Tablet - take 1 tablet by ORAL route every 6 hours As needed; 20 tablet. Tramadol 50 mg Oral Tablet - take 1 tablet by ORAL route every 8 hours as needed; 12 tablet. - Medication Reconciliation Form, Thank You Letter, Antibiotic Education, Prescription Opioid Use, Work release form, Family Work Release form. - Follow up: Emergency Department; When: As needed; Reason: Worsening of condition. Follow up: Private Physician; When: 2 - 3 days; Reason: Recheck today's complaints, Continuance of care, Re-evaluation by your physician. Signatures: Dispatcher [employer] EDMA Latesha Zhao, TANMAY FILTER TANK TENDER HELPER HEAD-Frankie Calvert, GLASS FORMING ENGINEER GLASS FORMING ENGINEER em Santiago Key MD MD ma2 Corrections: (The following items were deleted from the chart) 09:50 07:49 IV Saline Lock ordered. kb em 10:09 09:30 03/29/2019 09:30 Discharged to Home. Impression: Duodenitis. Condition is Stable. em Forms are Medication Reconciliation Form, Thank You Letter, Antibiotic Education, Prescription Opioid Use. Follow up: Emergency Department; When: As needed; Reason: Worsening of condition. Follow up: Private Physician; When: 2 - 3 days; Reason: Recheck today's complaints, Continuance of care, Re-evaluation by your physician. kb
--- NOTE | 2019-03-29 09:31 | ER ---
Nurse's Notes [facility] Name: Shoaib Freitas Jr Age: 54 yrs Sex: Male : 1965 Arrival Date: 03/29/2019 Time: 07:34 Bed 24 Private MD: Jerome Yu Diagnosis: Duodenitis Presentation: 03/29 07:42 Presenting complaint: Patient states: reports abdominal pain for 2 weeks, nausea and em diarrhea, was here about 2 weeks ago and told to come back if her didn't get better, denies fever, also reports mid/upper back pain, rates pain 8/10. Transition of care: patient was not received from another setting of care. Onset of symptoms was March 16, 2019. Risk Assessment: Do you want to hurt yourself or someone else? Patient reports no desire to harm self or others. Initial Sepsis Screen: Does the patient meet any 2 criteria? No. Patient's initial sepsis screen is negative. Does the patient have a suspected source of infection? No. Patient's initial sepsis screen is negative. Care prior to arrival: None. 07:42 Method Of Arrival: Ambulatory em 07:47 Acuity: COBY 3 ss Historical: - Allergies: 07:45 No Known Allergies; em - PMHx: 07:45 Gall Stones; history of dialysis; Hypertension; kidney transplant; Pancreatitis; em - PSHx: 07:45 Kidney transplant; Cholecystectomy; em - Immunization history:: Last tetanus immunization: not immunized. - Social history:: Smoking status: Patient/guardian denies using tobacco. - Ebola Screening: : Patient negative for fever greater than or equal to 101.5 degrees Fahrenheit, and additional compatible Ebola Virus Disease symptoms Patient denies exposure to infectious person Patient denies travel to an Ebola-affected area in the 21 days before illness onset No symptoms or risks identified at this time. Screenin:46 Abuse screen: Denies threats or abuse. Nutritional screening: No deficits noted. em Tuberculosis screening: No symptoms or risk factors identified. Fall Risk None identified. Assessment: 07:48 General: Appears in no apparent distress. comfortable, Behavior is calm, cooperative, em appropriate for age, Denies fever. Pain: Complains of pain in thoracic area, lumbar area and abdomen Pain currently is 8 out of 10 on a pain scale. Neuro: Level of Consciousness is awake, alert, obeys commands, Oriented to person, place, time, situation, Appropriate for age. Cardiovascular: Capillary refill < 3 seconds Patient's skin is warm and dry. Respiratory: Airway is patent Respiratory effort is even, unlabored, Respiratory pattern is regular, symmetrical. GI: Abdomen is flat, Bowel sounds present X 4 quads. Abd is soft X 4 quads Reports diarrhea, nausea, Patient currently denies vomiting. Derm: Skin is intact, is healthy with good turgor, Skin is pink, warm \T\ dry. Musculoskeletal: Capillary refill < 3 seconds, Range of motion: intact in all extremities. 07:50 General: The previous assessment is accurate. Call light remains within reach.. ss 08:15 Reassessment: unable to obtain at IV at this time, charge nurse provider notified. em 09:20 Reassessment: request something for nausea and pain, provider notified. em Vital Signs: 07:45 BP 131 / 85; Pulse 87; Resp 18; Temp 97.9; Pulse Ox 100% on R/A; Weight 94.35 kg; em Height 5 ft. 11 in. (180.34 cm); Pain 8/10; 09:22 BP 142 / 95; Pulse 75; Resp 18; Pulse Ox 97% on R/A; Pain 8/10; em 07:45 Body Mass Index 29.01 (94.35 kg, 180.34 cm) em ED Course: 07:34 Patient arrived in ED. am2 07:34 Jerome Yu MD is Private Physician. am2 07:42 Frankie Gonzalez LVN is Primary Nurse. em 07:42 Latesha Zhao FNP-C is [facility]. kb 07:42 Phoenix Mandujano MD is Attending Physician. kb 07:43 Santiago Key MD is Attending Physician. kb 07:45 Arm band placed on. em 07:46 Patient has correct armband on for positive identification. Placed in gown. Bed in low em position. Call light in reach. Side rails up X2. Pulse ox on. NIBP on. 07:47 Triage completed. ss 07:56 Missed attempt(s): 22 gauge in right antecubital area. kj1 08:17 Missed attempt(s): 22 gauge in left antecubital area. Bleeding controlled, band aid em applied, catheter tip intact. 10:08 No provider procedures requiring assistance completed. Patient did not have IV access em during this emergency room visit. Administered Medications: 09:32 Drug: Zofran 4 mg Route: PO; em 09:45 Follow up: Response: No adverse reaction; Nausea is decreased em 09:49 Drug: ProTONIX 40 mg Route: PO; em 09:55 Follow up: Response: Medication administered at discharge. em 09:49 Drug: [place] 10 mg-325 mg 1 tabs Route: PO; em 09:56 Follow up: Response: Medication administered at discharge. em 09:49 Drug: Cipro 500 mg Route: PO; em 09:56 Follow up: Response: Medication administered at discharge. em 09:49 Drug: Flagyl 500 mg Route: PO; em 09:56 Follow up: Response: Medication administered at discharge. em Outcome: 09:30 Discharge ordered by . kb 10:08 Discharged to home ambulatory, with family. em 10:08 Condition: good 10:08 Discharge instructions given to patient, family, Instructed on discharge instructions, follow up and referral plans. medication usage, Demonstrated understanding of instructions, follow-up care, medications, Prescriptions given X 5 10:09 Patient left the ED. em Signatures: Latesha Zhao, TANMAY HEEL BLACKER-Frankie Calvert, MAIL CLERK MAIL CLERK em Tere Powell RN RN Manda Jett am2 Belkys Zhao kj1 Corrections: (The following items were deleted from the chart) 07:50 07:48 GI: Abdomen is flat, Bowel sounds present X 4 quads. Abd is soft X 4 quads em em
[2019-03-29] MEDS ORDERED: CIPROFLOXACIN HCL 500 MG TAB ONE (09:32)
[2019-03-29] MEDS ORDERED: metroNIDAZOLE 500 MG TABLET ONE (09:32)
[2019-03-29 09:58] LABS: Blood Morphology Comment NOT SEEN (NOT SEEN); Platelet Estimate ADEQ
[2019-03-29 10:38] VITALS: TEMP 97.9
[2019-03-29 10:39] VITALS: BP 142/95; O2SAT 97
== END 2019-03-29 10:09 | disposition home or self-care (01) ==
LOC: ER 07:33
DX: K29.80 Duodenitis without bleeding (principal); I10 Essential (primary) hypertension; Z94.0 Kidney transplant status
CPT/HCPCS: 36415; 71045; 74176; 80048; 80076; 83690; 85025; 99283

== ENCOUNTER 2019-05-31 12:49 | Emergency (ER) | payer OTHER ==
[2019-05-31] MEDS ORDERED: NA CHLORIDE 0.9% 1,000 ML ONE (14:06)
[2019-05-31] MEDS ORDERED: MORPHINE 4 MG/ML SYR ONE (14:06)
[2019-05-31] MEDS ORDERED: ONDANSETRON 4 MG/2 ML VIAL ONE (14:06)
[2019-05-31 14:32] LABS: Absolute Lymphocytes (CBC) 1.5 K/uL (0.7-4.9); Basophils % 0.6 % (0-1.3); Hematocrit 41.4 % (39.6-49.0); Lymphocytes % 22.8 % (15.3-44.8); MPV 7.3 fL (7.6-11.3); RBC Red Blood Cell Count 4.34 M/uL (4.33-5.43)
[2019-05-31 14:49] LABS: ALT/SGPT 74 U/L (12-78); AST/SGOT 38 U/L (15-37); Albumin 3.2 g/dL (3.4-5.0); Alkaline Phosphatase 88 U/L (45-117); BUN Blood Urea Nitrogen 19 mg/dL (7-18); Bicarbonate 26 mmol/L (21-32); Bilirubin Direct < 0.1 mg/dL (0-0.2); Bilirubin Total 0.3 mg/dL (0.2-1.0); Glucose Level 118 mg/dL (74-106); Lipase 167 U/L (73-393); Potassium 3.8 mmol/L (3.5-5.1); Protein, Total 7.1 g/dL (6.4-8.2); Sodium Level 139 mmol/L (136-145)
--- NOTE | 2019-05-31 15:24 | EKG ---
Test Date: 2019-05-31 Test Time: 13:22:58 Landing Gear Mechanic: ISMAEL MEASUREMENT RESULTS: Intervals: Rate: 86 DC: 128 QRSD: 94 QT: 368 QTc: 440 [place]: P: 49 DC: 128 QRS: 15 T: -14 INTERPRETIVE STATEMENTS: Sinus rhythm with occasional premature ventricular complexes Possible Inferior infarct, age undetermined Abnormal ECG Compared to ECG 11/26/2018 17:29:46 Ventricular premature complex(es) now present Myocardial infarct finding now present Electronically Signed On 05-31-19 15:23:56 PRINCIPAL LAW CLERK by Sundar Roa
--- NOTE | 2019-05-31 15:40 | RAD REPORT ---
EXAM DESCRIPTION: CT - Abdomen Pelvis W Contrast - 05/31/2019 3:16 pm CLINICAL HISTORY: ABD PAIN COMPARISON: No comparisons TECHNIQUE: Biphasic, helical CT imaging of the abdomen and pelvis was performed following 100 ml non -ionic IV contrast. No oral contrast was given. All CT scans are performed using dose optimization technique as appropriate and may include automated exposure control or mA/KV adjustment according to patient size. FINDINGS: No suspicious findings in the lung bases. Liver attenuation is borderline to mildly fatty infiltrated. No focal liver lesion. Spleen and pancre as show no suspicious findings cholecystectomy clips are present. No biliary tree dilatation beyond n ormal for post cholecystectomy status. [place] kidneys are severely atrophic. No acute component seen. Patient has transplanted kidney in the left lower abdomen and upper pelvis. Transplant kidney enhances normally. No pyelonephritis. No hydr onephrosis or obstructing calculus. There is a mild amount of congestion or edema in the perinephric fat. No renal vein thrombus. No arterial abnormality evident. No bladder abnormalities. No adrenal ab normalities. No prostate gland or seminal vesicle abnormalities. Stomach is filled with fluid but not dilated. No gastric wall thickening or mass. Multiple distended to borderline dilated small bowel loops from proximal jejunum to proximal ileum. There is a smooth tr ansition at the proximal to mid ileum level. No obstructing mass. No appendicitis findings. No acute colon process seen. Diverticulosis is minimal. No free air, free fluid or pneumatosis. No other areas of stranding or edema in the fatty tissues. N o mass or bulky lymphadenopathy. Small fat only right inguinal hernia present. No suspicious bony findings. IMPRESSION: Multiple distended to borderline dilated small bowel loops from proximal jejunum to prox imal ileum. No abrupt transition or obstructing mass. This is favored to be a prominent enteritis. St omach is not distended. Transplant kidney enhances normally. No pyelonephritis, obstructing process or acute renal parenchyma l process. There is a nonspecific congestion or edema in the perinephric fat. Borderline to mildly fatty infiltrated liver. Gallbladder is absent.
--- NOTE | 2019-05-31 16:07 | EDPHYS ---
Physician Documentation [facility] Name: Shoaib Freitas Jr Age: 54 yrs Sex: Male : 1965 Arrival Date: 05/31/2019 Time: 12:52 Bed 26 Private MD: ED Physician Sebas Stephenson HPI: 05/31 14:38 This 54 yrs old Black Male presents to ER via Ambulatory with complaints of Pain All rn Over, Dizziness, diarrhea. 14:38 The patient presents with dizziness, lightheadedness. Onset: The symptoms/episode rn began/occurred today. Context: occurred at home, occurred while the patient was standing. Modifying factors: The symptoms are alleviated by nothing, the symptoms are aggravated by standing up. Severity of symptoms: At their worst the symptoms were mild in the emergency department the symptoms are unchanged. The patient has not experienced similar symptoms in the past. The patient has not recently seen a physician. Reports 3 days of non-bloody diarrhea, no fever/chills. + intermittent upper and left sided abd pain. reports generalized weakness worse with standing. No syncope. Reports had short episode of chest pain but wasn't sure if from nausea/reflux. No current chest pain. . Historical: - Allergies: 13:17 No Known Allergies; ca1 - Home Meds: 13:17 diltiazem HCl 240 mg Oral cpER 1 cap once daily for Hypertension [Active]; prednisone 5 ca1 mg Oral tab once daily [Active]; valsartan 40 mg Oral tab 1 tab once daily for Hypertension [Active]; - PMHx: 13:17 Gall Stones; history of dialysis; Hypertension; kidney transplant; Pancreatitis; ca1 - PSHx: 13:17 Kidney transplant; Cholecystectomy; ca1 - Immunization history:: Adult Immunizations not up to date, Flu vaccine is not up to date. - Coronavirus screen:: The patient has NOT traveled to [place] in the past 14 days. The patient has NOT had contact with known/suspected case of Coronavirus?. - Social history:: Smoking status: Patient/guardian denies using tobacco, Stopped _ months ago 6. - Family history:: not pertinent. - Ebola Screening: : Patient negative for fever greater than or equal to 101.5 degrees Fahrenheit, and additional compatible Ebola Virus Disease symptoms Patient denies exposure to infectious person Patient denies travel to an Ebola-affected area in the 21 days before illness onset No symptoms or risks identified at this time. - Hospitalizations: : No recent hospitalization is reported. ROS: 14:40 Constitutional: Negative for fever, chills, and weight loss, Eyes: Negative for injury, rn pain, redness, and discharge, Neck: Negative for injury, pain, and swelling, Cardiovascular: Negative for palpitations, and edema, Respiratory: Negative for shortness of breath, cough, wheezing, and pleuritic chest pain, Abdomen/GI: Negative for vomiting, and constipation, MS/Extremity: Negative for injury and deformity, Skin: Negative for injury, rash, and discoloration, Neuro: Negative for headache, numbness, tingling, and seizure. Exam: 14:40 Constitutional: This is a well developed, well nourished patient who is awake, alert, rn and in no acute distress. Sitting upright with legs crossed Head/Face: Normocephalic, atraumatic. ENT: MMM Cardiovascular: Regular rate and rhythm. No pulse deficits. Respiratory: No increased work of breathing, no retractions or nasal flaring. Abdomen/GI: soft, mild epigastric and LLQ tenderness, no rebound MS/ Extremity: Pulses equal, no cyanosis. Neurovascular intact. Full, normal range of motion. Equal circumference. Neuro: Awake and alert, GCS 15, oriented to person, place, time, and situation. Cranial nerves II-XII grossly intact. Motor strength 5/5 in all extremities. Sensory grossly intact. Vital Signs: 13:17 BP 109 / 78; Pulse 85; Resp 16 S; Temp 98.7(O); Pulse Ox 97% on R/A; Weight 101.6 kg ca1 (R); Height 5 ft. 11 in. (180.34 cm) (R); Pain 8/10; 14:30 BP 136 / 70; Pulse 72; Resp 14; Temp 98.4(O); Pulse Ox 98% on R/A; Pain 3/10; ls4 16:06 BP 139 / 99; Pulse 71; Resp 18; Temp 98.4; Pulse Ox 98% on R/A; Pain 3/10; ls4 13:17 Body Mass Index 31.24 (101.60 kg, 180.34 cm) ca1 MDM: 13:41 Patient medically screened. rn 16:05 Differential diagnosis: hypovolemia, idiopathic dizziness, ileus, enteritis, colitis. rn Data reviewed: vital signs, nurses notes, lab test result(s), radiologic studies, CT scan, and as a result, I will discharge patient. Counseling: I had a detailed discussion with the patient and/or guardian regarding: the historical points, exam findings, and any diagnostic results supporting the discharge/admit diagnosis, lab results, radiology results, the need for further work-up and treatment in the hospital. 16:06 Response to treatment: the patient's symptoms have mildly improved after treatment, and rn as a result, I will discharge patient. Special discussion: Based on the patient's Hx, exam, and Dx evaluation, there is no indication for emergent surgery or inpatient Tx. It is understood by the patient/guardian that if the Sx's persist or worsen they need to return immediately for re-evaluation. I discussed with the patient/guardian in detail that at this point there is no indication for admission to the hospital. It is understood, however, that if the symptoms persist or worsen the patient needs to return immediately for re-evaluation. 05/31 13:53 Order name: CBC with Diff rn 05/31 13:54 Order name: Flu rn 05/31 13:54 Order name: CT Abd/Pelvis - IV Contrast Only 05/31 14:40 Order name: CBC with Automated Diff; Complete Time: 16:02 [facility] 05/31 14:46 Order name: Influenza Screen (A [facility] 05/31 14:51 Order name: Basic Metabolic Panel; Complete Time: 16: [facility] 05/31 14:51 Order name: Liver (Hepatic) Function; Complete Time: 16: [facility] 05/31 14:51 Order name: Lipase; Complete Time: 16:02 [facility] 05/31 14:51 Order name: Creatinine (Radiology Only); Complete Time: 16:02 [facility] 05/31 16:27 Order name: CT; Complete Time: 16:29 [facility] 05/31 13:53 Order name: IV Saline Lock; Complete Time: 14:17 rn 05/31 13:53 Order name: Labs collected and sent; Complete Time: 14:17 rn 05/31 13:53 Order name: EKG; Complete Time: 14:31 rn 05/31 13:53 Order name: EKG - Nurse/Tech; Complete Time: 14:18 rn Administered Medications: 14:17 Drug: morphine 4 mg Route: IVP; Site: left forearm; ls4 16:04 Follow up: Response: No adverse reaction; Marked relief of symptoms ls4 14:17 Drug: Zofran 4 mg Route: IVP; Site: left forearm; ls4 16:04 Follow up: Response: No adverse reaction; Marked relief of symptoms ls4 14:17 Drug: NS 0.9% 1000 ml Route: IV; Rate: 1000 ml; Site: left forearm; ls4 16:03 Follow up: IV Status: Completed infusion; IV Intake: 1000ml ls4 16:16 Drug: LoMOTIL 2 tabs Route: PO; ls4 16:37 Follow up: Response: No adverse reaction ls4 Disposition: 05/31/19 16:06 Discharged to Home. Impression: Diarrhea, unspecified, Enteritis. - Condition is Stable. - Discharge Instructions: Diarrhea, Adult, Viral Gastroenteritis, Adult. - Prescriptions for Zofran ODT 4 mg Oral tablet,disintegrating - place 1 tablet by TRANSLINGUAL route every 8 hours As needed; 20 tablet. Ultram 50 mg Oral Tablet - take 1 tablet by ORAL route every 6 hours As needed; 15 tablet. - Medication Reconciliation Form, Thank You Letter, Antibiotic Education, Prescription Opioid Use form. - Follow up: Private Physician; When: As needed; Reason: Recheck today's complaints, Re-evaluation by your physician. - Problem is new. - Symptoms have improved. Signatures: Dispatcher [employer] EDMS Sebas Stephenson MD MD rn Stewart, Lisa, RN RN 4 Rose Armando RN RN ca1 Corrections: (The following items were deleted from the chart) 16:39 16:06 05/31/2019 16:06 Discharged to Home. Impression: Diarrhea, unspecified; ls4 Enteritis. Condition is Stable. Discharge Instructions: Diarrhea, Adult, Viral Gastroenteritis, Adult. Prescriptions for Zofran ODT 4 mg Oral tablet,disintegrating - place 1 tablet by TRANSLINGUAL route every 8 hours As needed; 20 tablet. and Forms are Medication Reconciliation Form, Thank You Letter, Antibiotic Education, Prescription Opioid Use. Follow up: Private Physician; When: As needed; Reason: Recheck today's complaints, Re-evaluation by your physician. Problem is new. Symptoms have improved. rn
--- NOTE | 2019-05-31 16:07 | ER ---
Nurse's Notes [facility] Name: Shoaib Freitas Jr Age: 54 yrs Sex: Male : 1965 Arrival Date: 05/31/2019 Time: 12:52 Bed 26 Private MD: Diagnosis: Diarrhea, unspecified;Enteritis Presentation: 05/31 13:14 Presenting complaint: Patient states: Pain all over for about 2 days. Diarrhea since ca1 yesterday. Denies fever and congestion. Cough since yesterday, reports nausea. Chest pain x 3 days, dizziness yesterday. Transition of care: patient was not received from another setting of care. Onset of symptoms was May 31, 2019. Risk Assessment: Do you want to hurt yourself or someone else? Patient reports no desire to harm self or others. Initial Sepsis Screen: Does the patient meet any 2 criteria? No. Patient's initial sepsis screen is negative. Does the patient have a suspected source of infection? No. Patient's initial sepsis screen is negative. Care prior to arrival: None. 13:14 Method Of Arrival: Ambulatory ca1 13:14 Acuity: COBY 3 ca1 Triage Assessment: 13:25 General: Appears in no apparent distress. comfortable, Behavior is calm, cooperative, ca1 appropriate for age. Cardiovascular: Rhythm is sinus rhythm. 14:47 Pain: Complains of pain in "all over". Neuro: No deficits noted. Respiratory: No ls4 deficits noted. GI: No deficits noted. : No deficits noted. Derm: No deficits noted. Musculoskeletal: No deficits noted. Historical: - Allergies: 13:17 No Known Allergies; ca1 - Home Meds: 13:17 diltiazem HCl 240 mg Oral cpER 1 cap once daily for Hypertension [Active]; prednisone 5 ca1 mg Oral tab once daily [Active]; valsartan 40 mg Oral tab 1 tab once daily for Hypertension [Active]; - PMHx: 13:17 Gall Stones; history of dialysis; Hypertension; kidney transplant; Pancreatitis; ca1 - PSHx: 13:17 Kidney transplant; Cholecystectomy; ca1 - Immunization history:: Adult Immunizations not up to date, Flu vaccine is not up to date. - Coronavirus screen:: The patient has NOT traveled to [place] in the past 14 days. The patient has NOT had contact with known/suspected case of Coronavirus?. - Social history:: Smoking status: Patient/guardian denies using tobacco, Stopped _ months ago 6. - Family history:: not pertinent. - Ebola Screening: : Patient negative for fever greater than or equal to 101.5 degrees Fahrenheit, and additional compatible Ebola Virus Disease symptoms Patient denies exposure to infectious person Patient denies travel to an Ebola-affected area in the 21 days before illness onset No symptoms or risks identified at this time. - Hospitalizations: : No recent hospitalization is reported. Screenin:47 Abuse screen: Denies threats or abuse. Denies injuries from another. Nutritional ls4 screening: No deficits noted. Tuberculosis screening: No symptoms or risk factors identified. Fall Risk None identified. Assessment: 14:00 Reassessment: Patient appears in no apparent distress at this time. Patient and/or ls4 family updated on plan of care and expected duration. Pain level reassessed. Patient is alert, oriented x 3, equal unlabored respirations, skin warm/dry/pink. 15:00 Reassessment: Patient appears in no apparent distress at this time. Patient and/or ls4 family updated on plan of care and expected duration. Pain level reassessed. Patient is alert, oriented x 3, equal unlabored respirations, skin warm/dry/pink. 16:08 General: Appears in no apparent distress. Behavior is calm, cooperative. Neuro: No ls4 deficits noted. Cardiovascular: No deficits noted. Respiratory: No deficits noted. GI: Bowel sounds present X 4 quads. Abd is soft and non tender X 4 quads. : No deficits noted. Derm: No deficits noted. Musculoskeletal: No deficits noted. Vital Signs: 13:17 BP 109 / 78; Pulse 85; Resp 16 S; Temp 98.7(O); Pulse Ox 97% on R/A; Weight 101.6 kg ca1 (R); Height 5 ft. 11 in. (180.34 cm) (R); Pain 8/10; 14:30 BP 136 / 70; Pulse 72; Resp 14; Temp 98.4(O); Pulse Ox 98% on R/A; Pain 3/10; ls4 16:06 BP 139 / 99; Pulse 71; Resp 18; Temp 98.4; Pulse Ox 98% on R/A; Pain 3/10; ls4 13:17 Body Mass Index 31.24 (101.60 kg, 180.34 cm) ca1 ED Course: 12:52 Patient arrived in ED. rg4 13:16 Triage completed. ca1 13:17 Arm band placed on right wrist. ca1 13:24 EKG completed in triage. Results shown to MD. ca1 13:41 Sebas Stephenson MD is Attending Physician. rn 13:55 Dolores Mas, RN is Primary Nurse. ls4 14:15 No provider procedures requiring assistance completed. Inserted saline lock: 20 gauge ls4 in left forearm, using aseptic technique. Blood collected. 14:15 Initial lab(s) drawn, by me, sent to lab. EKG done, by ED staff, reviewed by Sebas Stephenson MD Flu and/or RSV swab sent to lab. Patient maintains SpO2 saturation greater than 95% on room air. 14:47 Patient has correct armband on for positive identification. surveillance system monitor on. Pulse ls4 ox on. NIBP on. Verbal reassurance given. 16:38 IV discontinued, intact, bleeding controlled, No redness/swelling at site. Pressure ls4 dressing applied. Administered Medications: 14:17 Drug: morphine 4 mg Route: IVP; Site: left forearm; ls4 16:04 Follow up: Response: No adverse reaction; Marked relief of symptoms ls4 14:17 Drug: Zofran 4 mg Route: IVP; Site: left forearm; ls4 16:04 Follow up: Response: No adverse reaction; Marked relief of symptoms ls4 14:17 Drug: NS 0.9% 1000 ml Route: IV; Rate: 1000 ml; Site: left forearm; ls4 16:03 Follow up: IV Status: Completed infusion; IV Intake: 1000ml ls4 16:16 Drug: LoMOTIL 2 tabs Route: PO; ls4 16:37 Follow up: Response: No adverse reaction ls4 Intake: 16:03 IV: 1000ml; Total: 1000ml. ls4 Outcome: 16:06 Discharge ordered by . rn 16:38 Discharged to home ambulatory, with family. ls4 16:38 Condition: stable 16:38 Discharge instructions given to patient, family, Instructed on discharge instructions, follow up and referral plans. medication usage, safety practices, Demonstrated understanding of instructions, follow-up care, medications, Prescriptions given X 1. 16:39 Patient left the ED. ls4 Signatures: Sebas Stephenson MD MD rn Garcia, Rubi rg4 Dolores Mas RN RN ls4 Rose Armando RN RN ca1 Corrections: (The following items were deleted from the chart) 13:14 Presenting complaint: Patient states: Pain all over for about 2 days. ca1 Constipation since yesterday. Denies fever and congestion. Cough since yesterday, reports nausea. ca1 13:20 13:14 Presenting complaint: Patient states: Pain all over for about 2 days. ca1 Constipation since yesterday. Denies fever and congestion. Cough since yesterday, reports nausea. Chest pain x 3 days, dizziness yesterday. ca1 06/01 01:45 05/31 16:38 Reassessment: Patient appears in no apparent distress at this time. Patient ls4 and/or family updated on plan of care and expected duration. Pain level reassessed. Patient is alert, oriented x 3, equal unlabored respirations, skin warm/dry/pink. ls4
[2019-05-31] MEDS ORDERED: DIPHENOX/ATROP SULF 1 TAB PO ONE (16:15)
[2019-05-31 16:49] VITALS: BP 139/99; TEMP 98.4; O2SAT 98
== END 2019-05-31 16:39 | disposition home or self-care (01) ==
LOC: ER 12:49
DX: K52.9 Noninfective gastroenteritis and colitis, unspecified (principal); I10 Essential (primary) hypertension; Z94.0 Kidney transplant status
CPT/HCPCS: 96361; 93005; 85025; 80048; 36415; 80076; 83690; 87804 ×2; 74177; 96375; 96374; 99285; J7030; J2405

== ENCOUNTER 2019-06-24 13:26 | Emergency (ER) | payer OTHER ==
[2019-06-24] MEDS ORDERED: MORPHINE 4 MG/ML SYR ONE (14:08)
[2019-06-24] MEDS ORDERED: NA CHLORIDE 0.9% 500 ML ONE (14:08)
[2019-06-24] MEDS ORDERED: PROMETHAZINE INJ 25 MG/ML AMP ONE (14:08)
--- NOTE | 2019-06-24 14:37 | RAD REPORT ---
EXAM DESCRIPTION: RAD - Chest Single View - 06/24/2019 2:27 pm CLINICAL HISTORY: CHEST PAIN COMPARISON: Portable chest March 2019 TECHNIQUE: AP portable chest image was obtained 06/24/2019 2:27 pm . FINDINGS: Lungs are clear. Heart and vasculature are normal. No measurable pleural effusion and no p neumothorax. No acute bony abnormality seen. No acute aortic findings suspected. IMPRESSION: No acute cardiopulmonary process. No significant change from comparison.
[2019-06-24 14:45] LABS: Absolute Lymphocytes (CBC) 2.4 K/uL (0.7-4.9); Basophils % 0.4 % (0-1.3); Hematocrit 45.4 % (39.6-49.0); Lymphocytes % 18.3 % (15.3-44.8); MPV 7.5 fL (7.6-11.3)
[2019-06-24 14:51] LABS: Protime INR 0.96
[2019-06-24 15:05] LABS: ALT/SGPT 37 U/L (12-78); AST/SGOT 20 U/L (15-37); Albumin 3.9 g/dL (3.4-5.0); Alkaline Phosphatase 75 U/L (45-117); BUN Blood Urea Nitrogen 13 mg/dL (7-18); Bicarbonate 26 mmol/L (21-32); Bilirubin Direct < 0.1 mg/dL (0-0.2); Bilirubin Total 0.5 mg/dL (0.2-1.0); Glucose Level 105 mg/dL (74-106); Lipase 198 U/L (73-393); Magnesium 2.2 mg/dL (1.8-2.4); NT PRO-BNP 195 pg/mL (<125); Potassium 3.7 mmol/L (3.5-5.1); Protein, Total 8.3 g/dL (6.4-8.2); Sodium Level 138 mmol/L (136-145); Troponin (Emerg Dept Use Only) < 0.02 ng/mL (0.0-0.045)
--- NOTE | 2019-06-24 16:02 | RAD REPORT ---
EXAM DESCRIPTION: CT - Abdomen Pelvis W Contrast - 06/24/2019 3:41 pm CLINICAL HISTORY: Abdominal pain COMPARISON: May 2019 TECHNIQUE: Computed axial tomography of the abdomen pelvis was obtained. 100 cc Isovue-300 was admin istered intravenously. Oral contrast was not requested which limits evaluation of bowel. All CT scans are performed using dose optimization technique as appropriate and may include automated exposure control or mA/KV adjustment according to patient size. FINDINGS: [place] kidneys are small. Transplant kidney left lower quadrant/left pelvis. No hydronephr osis. Stranding within the perirenal fat. Cholecystectomy Liver, spleen, pancreas and adrenals are unremarkable No ascites. Normal appendix Small right inguinal hernia contains fat IMPRESSION: Stranding adjacent to the transplant kidney is nonspecific but can indicate inflammation
--- NOTE | 2019-06-24 16:27 | EDPHYS ---
Physician Documentation [facility] Name: Shoaib Freitas Jr Age: 54 yrs Sex: Male : 1965 Arrival Date: 06/24/2019 Time: 13:29 Bed 8 Private MD: ED Physician Panfilo Peter HPI: 06/23 15:26 This 54 yrs old Black Male presents to ER via Ambulatory with complaints of Chest Pain, la1 Back Pain, Abdominal Pain. 15:26 Onset: The symptoms/episode began/occurred 3 day(s) ago. Associated signs and symptoms: la1 Pertinent positives: vomiting. Modifying factors: The patient symptoms are alleviated by nothing, the patient symptoms are aggravated by nothing. The patient has experienced similar episodes in the past. Historical: - Allergies: 14:46 No Known Allergies; sv - PMHx: 14:46 Gall Stones; history of dialysis; Hypertension; kidney transplant; Pancreatitis; sv - PSHx: 14:46 Kidney transplant; Cholecystectomy; sv - Immunization history:: Adult Immunizations unknown. - Social history:: Smoking status: unknown. ROS: 15:28 Constitutional: Negative for fever, chills, and weight loss, Eyes: Negative for injury, la1 pain, redness, and discharge, ENT: Negative for injury, pain, and discharge, Neck: Negative for injury, pain, and swelling, Cardiovascular: Negative for chest pain, palpitations, and edema, Respiratory: Negative for shortness of breath, cough, wheezing, and pleuritic chest pain. 15:28 Back: Negative for injury and pain, : Negative for injury, bleeding, discharge, and swelling, MS/Extremity: Negative for injury and deformity, Skin: Negative for injury, rash, and discoloration, Neuro: Negative for headache, weakness, numbness, tingling, and seizure. 15:28 Abdomen/GI: Positive for abdominal pain, nausea and vomiting. Exam: 15:28 Constitutional: This is a well developed, well nourished patient who is awake, alert, la1 and in no acute distress. Head/Face: Normocephalic, atraumatic. Eyes: Pupils equal round and reactive to light, extra-ocular motions intact ENT: Mucous membranes moist. Neck: Trachea midline Cardiovascular: Regular rate and rhythm with a normal S1 and S2. No gallops, murmurs, or rubs. Normal PMI, no JVD. No pulse deficits. Respiratory: Lungs have equal breath sounds bilaterally, clear to auscultation 15:28 Male : Normal genitalia with no discharge or lesions. MS/ Extremity: Pulses equal, no cyanosis. Neurovascular intact. Full, normal range of motion. 15:28 Abdomen/GI: Inspection: obese Bowel sounds: normal, in all quadrants, Palpation: soft, in all quadrants, mild abdominal tenderness, in the right upper quadrant and left upper quadrant, Indicators: McBurney's point is not tender, Faulkner's sign is negative, Rovsing's sign is negative, Obturator sign is negative, Psoas sign is negative. Vital Signs: 13:41 BP 133 / 94; Pulse 76; Resp 18; Temp 98.3; Pulse Ox 98% on R/A; Weight 101.6 kg; Height dm5 5 ft. 11 in. (180.34 cm) (R); 14:33 BP 141 / 98; Pulse 75; Resp 18; Pulse Ox 98% ; sv 16:16 BP 148 / 95; Pulse 65; Resp 18; Pulse Ox 99% ; sv 13:41 Body Mass Index 31.24 (101.60 kg, 180.34 cm) dm5 MDM: 13:52 Patient medically screened. la1 16:24 Data reviewed: vital signs, nurses notes, lab test result(s), radiologic studies, I la1 have discussed the patient's presentation/case with the attending Emergency Department Physician; and as a result, I will discharge patient. Data interpreted: Pulse oximetry: on is 100 %. Interpretation: normal. Counseling: I had a detailed discussion with the patient and/or guardian regarding: the historical points, exam findings, and any diagnostic results supporting the discharge/admit diagnosis, lab results, radiology results, the need for outpatient follow up, a family practitioner, to return to the emergency department if symptoms worsen or persist or if there are any questions or concerns that arise at home. Medication response: Phenergan partially relieved the patient's nausea. Response to treatment: the patient's symptoms have mildly improved after treatment, patient is well hydrated. and as a result, I will discharge patient. Special discussion: Based on the patient's Hx, exam, and Dx evaluation, there is no indication for emergent surgery or inpatient Tx. It is understood by the patient/guardian that if the Sx's persist or worsen they need to return immediately for re-evaluation. 06/23 13:59 Order name: Basic Metabolic Panel; Complete Time: 15:22 06/23 13:59 Order name: CBC with Diff; Complete Time: 15:22 06/23 13:59 Order name: LFT's; Complete Time: 15:22 06/23 13:59 Order name: Magnesium; Complete Time: 15:22 06/23 13:59 Order name: NT PRO-BNP; Complete Time: 15:22 06/23 13:59 Order name: PT-INR; Complete Time: 15:22 06/23 13:59 Order name: Troponin (emerg Dept Use Only); Complete Time: 15:22 06/23 13:59 Order name: XRAY Chest (1 view); Complete Time: 15:22 06/23 13:59 Order name: Lipase; Complete Time: 15:22 06/23 13:59 Order name: Flu; Complete Time: 15:22 06/23 13:59 Order name: CT Abd/Pelvis - IV Contrast Only 06/23 13:59 Order name: EKG; Complete Time: 14:02 06/23 13:59 Order name: Cardiac monitoring; Complete Time: 15:31 06/23 13:59 Order name: EKG - Nurse/Tech; Complete Time: 15:49 06/23 13:59 Order name: IV Saline Lock; Complete Time: 15:32 06/23 13:59 Order name: Labs collected and sent; Complete Time: 15:32 06/23 13:59 Order name: O2 Per Protocol; Complete Time: 15:32 06/23 13:59 Order name: O2 Sat Monitoring; Complete Time: 15:32 la1 EC:28 Rate is 72 beats/min. Rhythm is regular. QRS [place] is Normal. MD interval is normal at la1 142 msec. QRS interval is normal. QT interval is normal. No Q waves. T waves are Normal. No ST changes noted. Clinical impression: Normal ECG. Interpreted by me. Reviewed by me. Administered Medications: 14:30 Drug: NS 0.9% 500 ml Route: IV; Rate: bolus; Site: left upper arm; jl7 15:10 Follow up: Response: No adverse reaction; IV Status: Completed infusion; IV Intake: jl7 500ml 14:31 Drug: Phenergan 12.5 mg Route: IVP; Site: left upper arm; jl7 15:00 Follow up: Response: No adverse reaction; Nausea is decreased jl7 14:35 Drug: morphine 4 mg Route: IVP; Site: left upper arm; jl7 15:00 Follow up: Response: No adverse reaction; Pain is decreased jl7 16:40 Not Given (Other Intervention Used): Zofran (Ondansetron) 4 mg IVP once; over 2 minutes jl7 16:40 Drug: Zofran (Ondansetron) 4 mg Route: PO; jl7 16:40 Follow up: Response: Medication administered at discharge. jl7 Disposition: 18:05 Co-signature as Attending Physician, Panfilo Peter MD I agree with the assessment and kdr plan of care. Disposition: 06/24/19 16:25 Discharged to Home. Impression: Abdominal and pelvic pain, Nausea and vomiting. - Condition is Stable. - Discharge Instructions: Abdominal Pain, Adult, Nausea and Vomiting, Adult. - Prescriptions for Bentyl 20 mg Oral Tablet - take 1 tablet by ORAL route every 6 hours As needed; 20 tablet. Zofran 4 mg Oral Tablet - take 1 tablet by ORAL route every 12 hours As needed; 6 tablet. Tramadol 50 mg Oral Tablet - take 1 tablet by ORAL route every 8 hours as needed; 12 tablet. - Medication Reconciliation Form, Thank You Letter, Prescription Opioid Use form. - Follow up: Private Physician; When: 2 - 3 days; Reason: Recheck today's complaints, Re-evaluation by your physician. - Problem is new. - Symptoms have improved. Signatures: Dispatcher [employer] EDMS Briseida Davies RN RN dm5 Yana Mann RN RN sv Rittger, Kevin, MD MD kdr Attema, Lee, SEAN-C TABLE SETTER-Cla1 Thalia Velasquez RN RN jl7 Corrections: (The following items were deleted from the chart) 16:13 16:12 Urine Dipstick-Ancillary ordered. dm5 dm5 16:42 16:25 06/24/2019 16:25 Discharged to Home. Impression: Abdominal and pelvic pain; jl7 Nausea and vomiting. Condition is Stable. Forms are Medication Reconciliation Form, Thank You Letter, Antibiotic Education, Prescription Opioid Use. Follow up: Private Physician; When: 2 - 3 days; Reason: Recheck today's complaints, Re-evaluation by your physician. Problem is new. Symptoms have improved. la1
--- NOTE | 2019-06-24 16:27 | ER ---
Nurse's Notes [facility] Name: Shoaib Freitas Jr Age: 54 yrs Sex: Male : 1965 Arrival Date: 06/24/2019 Time: 13:29 Bed 8 Private MD: Diagnosis: Abdominal and pelvic pain;Nausea and vomiting Presentation: 06/23 13:41 Chief complaint: Patient states: chest pain, abd pain and back pain for 1 week, threw dm5 up stomach acid since last night and this morning. 3-4 times in the last 24 hours. Coronavirus screen: The patient has NOT traveled to a country currently being monitored by the [facility] within the last 14 days. Proceed with normal triage procedures. The patient has NOT had contact with any known and/or suspected case of coronavirus. Proceed with normal triage procedures. Ebola Screen: Patient negative for fever greater than or equal to 101.5 degrees Fahrenheit, and additional compatible Ebola Virus Disease symptoms Patient denies exposure to infectious person. Patient denies travel to an Ebola-affected area in the 21 days before illness onset. No symptoms or risks identified at this time. Initial Sepsis Screen: Does the patient meet any 2 criteria? No. Patient's initial sepsis screen is negative. Does the patient have a suspected source of infection? No. Patient's initial sepsis screen is negative. Risk Assessment: Do you want to hurt yourself or someone else? Patient reports no desire to harm self or others. 13:41 Method Of Arrival: Ambulatory dm5 13:41 Acuity: COBY 3 dm5 Historical: - Allergies: 14:46 No Known Allergies; sv - PMHx: 14:46 Gall Stones; history of dialysis; Hypertension; kidney transplant; Pancreatitis; sv - PSHx: 14:46 Kidney transplant; Cholecystectomy; sv - Immunization history:: Adult Immunizations unknown. - Social history:: Smoking status: unknown. Screenin:35 Abuse screen: Denies threats or abuse. Denies injuries from another. Nutritional jl7 screening: No deficits noted. Tuberculosis screening: No symptoms or risk factors identified. Fall Risk IV access (20 points). Assessment: 14:20 General: Appears in no apparent distress. uncomfortable, ill, Behavior is cooperative, jl7 anxious. Pain: Complains of pain in left upper quadrant and right upper quadrant Pain does not radiate. Pain currently is 8 out of 10 on a pain scale. Quality of pain is described as Pain began 1 day ago. Is continuous. Neuro: Level of Consciousness is awake, alert, obeys commands, Oriented to person, place, time, situation. Cardiovascular: Patient's skin is warm and dry. Respiratory: Airway is patent Respiratory effort is even, unlabored, Respiratory pattern is regular, symmetrical. GI: Abdomen is round non-distended, Reports nausea, vomiting. Derm: Skin is pink, warm \T\ dry. 15:30 Reassessment: Patient appears in no apparent distress at this time. No changes from jl7 previously documented assessment. Patient and/or family updated on plan of care and expected duration. Pain level reassessed. Patient is alert, oriented x 3, equal unlabored respirations, skin warm/dry/pink. Vital Signs: 13:41 BP 133 / 94; Pulse 76; Resp 18; Temp 98.3; Pulse Ox 98% on R/A; Weight 101.6 kg; Height dm5 5 ft. 11 in. (180.34 cm) (R); 14:33 BP 141 / 98; Pulse 75; Resp 18; Pulse Ox 98% ; sv 16:16 BP 148 / 95; Pulse 65; Resp 18; Pulse Ox 99% ; sv 13:41 Body Mass Index 31.24 (101.60 kg, 180.34 cm) dm5 ED Course: 13:29 Patient arrived in ED. mr 13:44 Triage completed. dm5 13:52 Vincenzo Zapata FNP-C is [facility]. la1 13:52 Panfilo Peter MD is Attending Physician. la1 13:58 Thalia Velasquez RN is Primary Nurse. jl7 14:20 Patient has correct armband on for positive identification. sorting supervisor on. Pulse jl7 ox on. NIBP on. Warm blanket given. 14:25 Missed attempt(s): 22 gauge in right antecubital area. Bleeding controlled, band aid jl7 applied, catheter tip intact. Patient maintains SpO2 saturation greater than 95% on room air. 14:28 XRAY Chest (1 view) In Process Unspecified. EDMS 14:30 Initial lab(s) drawn, by me, by EMS personnel. Inserted saline lock: 22 gauge in left jl7 upper arm, using aseptic technique. Blood collected. 15:03 EKG done, by farm equipment service technician. reviewed by Vincenzo DONATO. tc 15:35 Arm band placed on right wrist. jl7 15:43 CT Abd/Pelvis - IV Contrast Only In Process Unspecified. EDMS 16:42 No provider procedures requiring assistance completed. IV discontinued, intact, jl7 bleeding controlled, Pressure dressing applied, IV was infiltrated when CT contrast was infused, pts left upper arm is swollen, pt denies pain. Administered Medications: 14:30 Drug: NS 0.9% 500 ml Route: IV; Rate: bolus; Site: left upper arm; jl7 15:10 Follow up: Response: No adverse reaction; IV Status: Completed infusion; IV Intake: jl7 500ml 14:31 Drug: Phenergan 12.5 mg Route: IVP; Site: left upper arm; jl7 15:00 Follow up: Response: No adverse reaction; Nausea is decreased jl7 14:35 Drug: morphine 4 mg Route: IVP; Site: left upper arm; jl7 15:00 Follow up: Response: No adverse reaction; Pain is decreased jl7 16:40 Not Given (Other Intervention Used): Zofran (Ondansetron) 4 mg IVP once; over 2 minutes jl7 16:40 Drug: Zofran (Ondansetron) 4 mg Route: PO; jl7 16:40 Follow up: Response: Medication administered at discharge. jl7 Intake: 15:10 IV: 500ml; Total: 500ml. jl7 Outcome: 16:25 Discharge ordered by . la1 16:42 Discharged to home ambulatory. jl7 16:42 Condition: stable 16:42 Discharge instructions given to patient, Instructed on discharge instructions, follow up and referral plans. medication usage, Demonstrated understanding of instructions, follow-up care, medications, Prescriptions given X 3. 16:42 Patient left the ED. jl7 Signatures: Dispatcher [employer] EDMS Briseida Davies, RN RN Yana Morton, RN PRINCESS Pires, Ligia Medina, mechanic helper EKG Ttc Vincenzo Zapata, BRONZE PLATER-C BRONZE PLATER-Cla1 Thalia Velasquez, RN PRINCESS jl7
[2019-06-24] MEDS ORDERED: ONDANSETRON 4 MG/2 ML VIAL ONE (16:34)
[2019-06-24] MEDS ORDERED: ONDANSETRON 4 MG (ODT) TAB ONE (16:40)
[2019-06-24 16:56] VITALS: TEMP 98.3
[2019-06-24 16:59] VITALS: BP 148/95; O2SAT 99
--- NOTE | 2019-06-25 08:29 | EKG ---
Test Date: 2019-06-24 Test Time: 14:55:40 Customer Relations Representative: TRACIE MEASUREMENT RESULTS: Intervals: Rate: 72 MT: 142 QRSD: 94 QT: 386 QTc: 422 [place]: P: 21 MT: 142 QRS: 3 T: 35 INTERPRETIVE STATEMENTS: Normal sinus rhythm Normal ECG Compared to ECG 05/31/2019 13:22:58 Ventricular premature complex(es) no longer present Myocardial infarct finding no longer present Electronically Signed On 06-25-19 08:27:53 CDT by Sundar Roa
== END 2019-06-24 16:42 | disposition home or self-care (01) ==
LOC: ER 13:26
DX: R11.2 Nausea with vomiting, unspecified (principal); I10 Essential (primary) hypertension; Z94.0 Kidney transplant status
CPT/HCPCS: 96361; 93005; 85025; 80048; 36415; 83735; 85610; 80076; 84484; 83690; 83880; 87804 ×2; 74177; 71045; 96375; 96374; 99285; Q9967; J2550; J7040; J2405

== ENCOUNTER 2019-07-27 19:16 | Emergency (ER) | payer OTHER ==
[2019-07-27] MEDS ORDERED: HYDROCODONE/APAP 7.5/325 MG TAB ONE (19:44)
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
--- NOTE | 2019-07-27 20:11 | ER ---
Nurse's Notes [facility] Name: Shoaib Freitas Jr Age: 54 yrs Sex: Male : 1965 Arrival Date: 07/27/2019 Time: 19:17 Bed 13 Private MD: Diagnosis: Contusion of right hand;Kidney transplant status Presentation: 07/26 19:25 Chief complaint: Patient states: Punched a wall 3 days ago. Right hand pain and ll1 swelling since. Coronavirus screen: Proceed with normal triage. Patient denies a cough. Patient denies shortness of breath or difficulty breathing. Patient denies measured and/or subjective temperature greater than 100.4F prior to today's visit. Patient denies travel on a cruise ship or to a country the [facility] currently lists as an affected area. Patient denies contact with known and/or suspected case of COVID-19. Ebola Screen: Patient denies travel to an Ebola-affected area in the 21 days before illness onset. Initial Sepsis Screen: Does the patient meet any 2 criteria? No. Patient's initial sepsis screen is negative. Risk Assessment: Do you want to hurt yourself or someone else? Patient reports no desire to harm self or others. Onset of symptoms was July 24, 2019. 19:25 Method Of Arrival: Ambulatory ll1 19:25 Acuity: COBY 4 ll1 Historical: - Allergies: 19:27 No Known Allergies; ll1 - PMHx: 19:27 Gall Stones; Hypertension; kidney transplant; history of dialysis; Pancreatitis; ll1 - PSHx: 19:27 Cholecystectomy; ll1 - Immunization history:: Flu vaccine is not up to date. - Social history:: Smoking status: Patient/guardian denies using tobacco, the patient reports quitting approximately 2 years ago, Patient uses alcohol, weekly. admits to "couple of beers" a day. Patient/guardian denies using street drugs. - Family history:: not pertinent. Screenin:28 Abuse screen: Denies threats or abuse. Nutritional screening: No deficits noted. jb4 Tuberculosis screening: No symptoms or risk factors identified. Fall Risk None identified. Assessment: 19:28 General: Appears in no apparent distress. comfortable, Behavior is calm, cooperative, jb4 appropriate for age. Pain: Complains of pain in right hand Pain does not radiate. Pain currently is 9 out of 10 on a pain scale. Pain began 2-3 days ago. Neuro: Level of Consciousness is awake, alert, obeys commands, Oriented to person, place, time, situation. Cardiovascular: Patient's skin is warm and dry. Respiratory: Airway is patent Respiratory effort is even, unlabored, Respiratory pattern is regular, symmetrical. GI: No signs and/or symptoms were reported involving the gastrointestinal system. : No signs and/or symptoms were reported regarding the genitourinary system. EENT: No signs and/or symptoms were reported regarding the EENT system. Derm: Skin is intact, Skin is dry, Skin is normal, Skin temperature is warm. Musculoskeletal: Circulation, motion, and sensation intact. Range of motion: intact in MCP of right thumb limited in MCP of right index finger, MCP of right middle finger, MCP of right ring finger and MCP of right little finger. 20:40 Reassessment: Patient appears in no apparent distress at this time. Patient and/or jb4 family updated on plan of care and expected duration. Pain level reassessed. Patient is alert, oriented x 3, equal unlabored respirations, skin warm/dry/pink. PT verbalized understanding of d/c and follow up instructions. Denies questions or concerns. Ambulated out of ED with steady gait. Patient states feeling better. Vital Signs: 19:25 BP 168 / 96; Pulse 89; Resp 18; Temp 98.7; Pulse Ox 96% ; Pain 9/10; ll1 20:30 BP 151 / 96; Pulse 86; Resp 16; Pulse Ox 100% on R/A; jb4 ED Course: 19:17 Patient arrived in ED. cl3 19:19 Vidal Sandra MD is Attending Physician. [facility] 19:21 Lefty Silva, RN is Primary Nurse. jb4 19:26 Triage completed. ll1 19:28 Arm band placed on Patient placed in an exam room, on a stretcher. ll1 19:28 Patient has correct armband on for positive identification. Bed in low position. Call jb4 light in reach. Side rails up X 1. Pulse ox on. NIBP on. 19:48 Hand Right 3 View XRAY In Process Unspecified. EDMS 20:09 Darek Harris MD is Referral Physician. [email or web address] 20:34 Velcro wrist splint applied to right wrist. jp3 20:40 No provider procedures requiring assistance completed. Patient did not have IV access jb4 during this emergency room visit. Administered Medications: 19:42 Drug: Prather (7.5 mg-325 mg) 1 tabs {Note: rass score 0.} Route: PO; jb4 20:30 Follow up: Response: No adverse reaction; Pain is decreased; RASS: Alert and Calm (0) jb4 Outcome: 20:10 Discharge ordered by MD. bingham 20:40 Discharged to home ambulatory, with family. jb4 20:40 Condition: stable 20:40 Discharge instructions given to patient, Instructed on discharge instructions, follow up and referral plans. medication usage, Demonstrated understanding of instructions, follow-up care, medications, Prescriptions given X 1. 20:41 Patient left the ED. jb4 Signatures: Dispatcher [employer] EDMS Vidal Sandra MD MD cha Bryson, James, RN RN jb4 Padilla Hall jp3 Grecia Ruiz3 Paxton Ruiz RN RN ll1
[2019-07-27 20:47] VITALS: BP 168/96; TEMP 98.7; O2SAT 96
--- NOTE | 2019-07-27 20:53 | RAD REPORT ---
EXAM DESCRIPTION: RAD - Hand Right 3 View - 07/27/2019 7:47 pm CLINICAL HISTORY: Pain;Swelling COMPARISON: No comparisons FINDINGS: Moderate soft tissue swelling is seen along the dorsum of the hand. No acute fracture or d islocation evident.
== END 2019-07-27 20:41 | disposition home or self-care (01) ==
LOC: ER 19:16
DX: S60.221A Contusion of right hand, initial encounter (principal); W22.8XXA Striking against or struck by other objects, initial encounter; Z94.0 Kidney transplant status; Z87.891 Personal history of nicotine dependence
CPT/HCPCS: 99284

== ENCOUNTER 2019-08-30 16:12 | Emergency (ER) | payer OTHER ==
--- OUTSIDE RECORDS SUMMARY | 2019-08-30 16:15 | XMS REPORT | Clinical Summary ---
:1965 Author Organization [facility] Address [address] [place] [address] Care Team Providers Name Role Phone Satish Klein MD Primary Care Provider Allergies No Known Allergies Medications Medication Sig Dispensed Refills Start Date End Date Status pantoprazole (PROTONIX) Take 40 mg by 0 Active 40 MG EC tablet mouth 2 (two) times a day. promethazine (PHENERGAN) Take 50 mg by 0 Active 50 MG tablet mouth every 12 (twelve) hours as needed for nausea or vomiting. diltiazem CD (CardIZEM Take 240 mg by 0 Active CD) 240 MG 24 hr capsule mouth daily. mycophenolate (CELLCEPT) Take 500 mg by 0 Active 500 mg tablet mouth 2 (two) times a day. valsartan (DIOVAN) 40 MG Take 40 mg by 0 Active tablet mouth daily. Active Problems Problem Noted Date Kidney transplant recipient 01/18/2018 Right upper quadrant abdominal pain 01/18/2018 Disorder of liver 01/16/2018 Cholelithiasis 01/15/2018 Encounters Date Type Specialty Care Team Description 07/04/2019 Lab Lab Usha Stone MD [facility] transplant status (Primary Dx); Anemia in chron ic kidney disease (CODE); Hypermagnesemia ; Proteinuria, un specified; Essential (prim francisco) hypertension; Chronic kidney disease, stage 3 (moderate) (HCC); Disorder of mariela sphorus metabolism, unspecified 07/04/2019 Travel 03/02/2019 Lab Lab Juan Klein MD Kidney replaced by transplant (Primary Dx); Essential hyper tension, malignant; Proteinuria, un specified type; Anemia of chron ic renal failure, unspecified CKD stage; Disorder of mariela sphorus metabolism; Hypermagnesemia ; Chronic kidney disease, stage III (moderate) (HCC) 02/21/2019 Lab Lab Juan Klein MD Kidney replaced by transplant (Primary Dx); Anemia of chron ic renal failure, unspecified CKD stage; Hypermagnesemia ; Proteinuria, un specified type; Essential hyper tension, malignant; Chronic kidney disease, stage III (moderate) (HCC); Disorder of mariela sphorus metabolism after 08/29/2018 Social History Tobacco Use Types Packs/Day Years [...] 02/28/2016 SHINGLES VACCINES (#1) 02/28/2016 INFLUENZA VACCINE 11/12/2019 Procedures Procedure Name Priority Date/Time Associated Comments Diagnosis ESTIMATED GFR Routine 07/04/2019 9:01 Results fo r this AM CDT procedure are i n the results section. CYCLOSPORINE LEVEL, Routine 07/04/2019 9:01 Kidney transplant Results for this RANDOM AM CDT status procedure are in Anemia in chronic the result s kidney disease section. (CODE) Hypermagnesemia Proteinuria, unspecified Essential (primary) hypertension Chronic kidney disease, stage 3 (moderate) (HCC) Disorder of phosphorus metabolism, unspecified COMPREHENSIVE Routine 07/04/2019 9:01 Kidney transplant Resul ts for this METABOLIC PANEL AM CDT status procedure are in Anemia in chronic the result s kidney disease section. (CODE) Hypermagnesemia Proteinuria, unspecified Essential (primary) hypertension Chronic kidney disease, stage 3 (moderate) (HCC) Disorder of phosphorus metabolism, unspecified LDH Routine 07/04/2019 9:01 Kidney transplant Result s for this AM CDT status procedure are in Anemia in chronic the result s kidney disease section. (CODE) Hypermagnesemia Proteinuria, unspecified Essential (primary) hypertension Chronic kidney disease, stage 3 (moderate) (HCC) Disorder of phosphorus metabolism, unspecified URIC ACID LEVEL Routine 07/04/2019 9:01 Kidney transplant Res ults for this AM CDT status procedure are in Anemia in chronic the result s kidney disease section. (CODE) Hypermagnesemia Proteinuria, unspecified Essential (primary) hypertension Chronic kidney disease, stage 3 (moderate) (HCC) Disorder of phosphorus metabolism, unspecified PHOSPHORUS LEVEL Routine 07/04/2019 9:01 Kidney transplant Re sults for this AM CDT status procedure are in Anemia in chronic the result s kidney disease section. (CODE) Hypermagnesemia Proteinuria, unspecified Essential (primary) hypertension Chronic kidney disease, stage 3 (moderate) (HCC) Disorder of phosphorus metabolism, unspecified MAGNESIUM LEVEL Routine 07/04/2019 9:01 Kidney transplant Res ults for this AM CDT status procedure are in Anemia in chronic the result s kidney disease section. (CODE) Hypermagnesemia Proteinuria, unspecified Essential (primary) hypertension Chronic kidney disease, stage 3 (moderate) (HCC) Disorder of phosphorus metabolism, unspecified HC COMPLETE BLD COUNT Routine 07/04/2019 9:01 Kidney transpla nt Results for this W/AUTO DIFF AM CDT status procedure are in Anemia in chronic the result s kidney disease section. (CODE) Hypermagnesemia Proteinuria, unspecified Essential (primary) hypertension Chronic kidney disease, stage 3 (moderate) (HCC) Disorder of phosphorus metabolism, unspecified CREATININE LEVEL, Routine 07/04/2019 8:56 Kidney transplant R esults for this URINE, RANDOM AM CDT status procedure are in Anemia in chronic the result s kidney disease section. (CODE) Hypermagnesemia Proteinuria, unspecified Essential (primary) hypertension Chronic kidney disease, stage 3 (moderate) (HCC) Disorder of phosphorus metabolism, unspecified PROTEIN, URINE, RANDOM Routine 07/04/2019 8:56 Kidney transpl ant Results for this AM CDT status procedure are in Anemia in chronic the result s kidney disease section. (CODE) Hypermagnesemia Proteinuria, unspecified Essential (primary) hypertension Chronic kidney disease, stage 3 (moderate) (HCC) Disorder of phosphorus metabolism, unspecified URINALYSIS SCREEN AND Routine 07/04/2019 8:56 Kidney transpla nt Results for this MICROSCOPY, WITH AM CDT status procedure are in REFLEX TO CULTURE Anemia in chronic the r esults kidney disease section. (CODE) Hypermagnesemia Proteinuria, unspecified Essential (primary) hypertension Chronic kidney disease, stage 3 (moderate) (HCC) Disorder of phosphorus metabolism, unspecified URINE CULTURE Routine 07/04/2019 8:56 Results fo r this AM CDT procedure are i n the results section. CYCLOSPORINE LEVEL, Routine 03/02/2019 8:54 Resu lts for this RANDOM AM BI DEVELOPER procedure are i n the results section. ESTIMATED GFR Routine 03/02/2019 8:54 Results fo r this AM BI DEVELOPER procedure are i n the results section. [id number] TACROLIMUS Routine 03/02/2019 8:54 Kidney replaced by R esults for this LEVEL, RANDOM AM BI DEVELOPER transplant procedure are in Essential the results hypertension, section. malignant Proteinuria, unspecified type Anemia of chronic renal failure, unspecified CKD stage Disorder of phosphorus metabolism Hypermagnesemia Chronic kidney disease, stage III (moderate) (HCC) PROTEIN, URINE, RANDOM Routine 03/02/2019 8:54 Kidney replace d by Results for this AM BI DEVELOPER transplant procedure are in Essential the results hypertension, section. malignant Proteinuria, unspecified type Anemia of chronic renal failure, unspecified CKD stage Disorder of phosphorus metabolism Hypermagnesemia Chronic kidney disease, stage III (moderate) (HCC) CREATININE LEVEL, Routine 03/02/2019 8:54 Kidney replaced by Results for this URINE, RANDOM AM BI DEVELOPER transplant procedure are in Essential the results hypertension, section. malignant Proteinuria, unspecified type Anemia of chronic renal failure, unspecified CKD stage Disorder of phosphorus metabolism Hypermagnesemia Chronic kidney disease, stage III (moderate) (HCC) URINALYSIS SCREEN AND Routine 03/02/2019 8:54 Kidney replaced by Results for this MICROSCOPY, WITH AM BI DEVELOPER transplant procedure are in REFLEX TO CULTURE Essential the result s hypertension, section. malignant Proteinuria, unspecified type Anemia of chronic renal failure, unspecified CKD stage Disorder of phosphorus metabolism Hypermagnesemia Chronic kidney disease, stage III (moderate) (HCC) LDH Routine 03/02/2019 8:54 Kidney replaced by Resul ts for this AM BI DEVELOPER transplant procedure are in Essential the results hypertension, section. malignant Proteinuria, unspecified type Anemia of chronic renal failure, unspecified CKD stage Disorder of phosphorus metabolism Hypermagnesemia Chronic kidney disease, stage III (moderate) (HCC) URIC ACID LEVEL Routine 03/02/2019 8:54 Kidney replaced by Re sults for this AM BI DEVELOPER transplant procedure are in Essential the results hypertension, section. malignant Proteinuria, unspecified type Anemia of chronic renal failure, unspecified CKD stage Disorder of phosphorus metabolism Hypermagnesemia Chronic kidney disease, stage III (moderate) (HCC) PHOSPHORUS LEVEL Routine 03/02/2019 8:54 Kidney replaced by R esults for this AM BI DEVELOPER transplant procedure are in Essential the results hypertension, section. malignant Proteinuria, unspecified type Anemia of chronic renal failure, unspecified CKD stage Disorder of phosphorus metabolism Hypermagnesemia Chronic kidney disease, stage III (moderate) (HCC) MAGNESIUM LEVEL Routine 03/02/2019 8:54 Kidney replaced by Re sults for this AM BI DEVELOPER transplant procedure are in Essential the results hypertension, section. malignant Proteinuria, unspecified type Anemia of chronic renal failure, unspecified CKD stage Disorder of phosphorus metabolism Hypermagnesemia Chronic kidney disease, stage III (moderate) (HCC) HC COMPLETE BLD COUNT Routine 03/02/2019 8:54 Kidney replaced by Results for this W/AUTO DIFF AM BI DEVELOPER transplant procedure are in Essential the results hypertension, section. malignant Proteinuria, unspecified type Anemia of chronic renal failure, unspecified CKD stage Disorder of phosphorus metabolism Hypermagnesemia Chronic kidney disease, stage III (moderate) (HCC) COMPREHENSIVE Routine 03/02/2019 8:54 Kidney replaced by Resu lts for this METABOLIC PANEL AM BI DEVELOPER transplant procedure are in Essential the results hypertension, section. malignant Proteinuria, unspecified type Anemia of chronic renal failure, unspecified CKD stage Disorder of phosphorus metabolism Hypermagnesemia Chronic kidney disease, stage III (moderate) (HCC) URINE CULTURE Routine 03/02/2019 8:54 Results fo r this AM BI DEVELOPER procedure are i n the results section. ESTIMATED GFR Routine 02/21/2019 7:56 Results fo r this AM BI DEVELOPER procedure are i n the results section. CYCLOSPORINE LEVEL, Routine 02/21/2019 7:56 Kidney replaced b y Results for this RANDOM AM BI DEVELOPER transplant procedure are in Anemia of chronic the result s renal failure, section. unspecified CKD stage Hypermagnesemia Proteinuria, unspecified type Essential hypertension, malignant Chronic kidney disease, stage III (moderate) (HCC) Disorder of phosphorus metabolism COMPREHENSIVE Routine 02/21/2019 7:56 Kidney replaced by Resu lts for this METABOLIC PANEL AM BI DEVELOPER transplant procedure are in Anemia of chronic the result s renal failure, section. unspecified CKD stage Hypermagnesemia Proteinuria, unspecified type Essential hypertension, malignant Chronic kidney disease, stage III (moderate) (HCC) Disorder of phosphorus metabolism PROTEIN, URINE, RANDOM Routine 02/21/2019 7:56 Kidney replace d by Results for this AM BI DEVELOPER transplant procedure are in Anemia of chronic the result s renal failure, section. unspecified CKD stage Hypermagnesemia Proteinuria, unspecified type Essential hypertension, malignant Chronic kidney disease, stage III (moderate) (HCC) Disorder of phosphorus metabolism CREATININE LEVEL, Routine 02/21/2019 7:56 Kidney replaced by Results for this URINE, RANDOM AM BI DEVELOPER transplant procedure are in Anemia of chronic the result s renal failure, section. unspecified CKD stage Hypermagnesemia Proteinuria, unspecified type Essential hypertension, malignant Chronic kidney disease, stage III (moderate) (HCC) Disorder of phosphorus metabolism URINALYSIS SCREEN AND Routine 02/21/2019 7:56 Kidney replaced by Results for this MICROSCOPY, WITH AM BI DEVELOPER transplant procedure are in REFLEX TO CULTURE Anemia of chronic the r esults renal failure, section. unspecified CKD stage Hypermagnesemia Proteinuria, unspecified type Essential hypertension, malignant Chronic kidney disease, stage III (moderate) (HCC) Disorder of phosphorus metabolism LDH Routine 02/21/2019 7:56 Kidney replaced by Resul ts for this AM BI DEVELOPER transplant procedure are in Anemia of chronic the result s renal failure, section. unspecified CKD stage Hypermagnesemia Proteinuria, unspecified type Essential hypertension, malignant Chronic kidney disease, stage III (moderate) (HCC) Disorder of phosphorus metabolism URIC ACID LEVEL Routine 02/21/2019 7:56 Kidney replaced by Re sults for this AM BI DEVELOPER transplant procedure are in Anemia of chronic the result s renal failure, section. unspecified CKD stage Hypermagnesemia Proteinuria, unspecified type Essential hypertension, malignant Chronic kidney disease, stage III (moderate) (HCC) Disorder of phosphorus metabolism PHOSPHORUS LEVEL Routine 02/21/2019 7:56 Kidney replaced by R esults for this AM BI DEVELOPER transplant procedure are in Anemia of chronic the result s renal failure, section. unspecified CKD stage Hypermagnesemia Proteinuria, unspecified type Essential hypertension, malignant Chronic kidney disease, stage III (moderate) (HCC) Disorder of phosphorus metabolism MAGNESIUM LEVEL Routine 02/21/2019 7:56 Kidney replaced by Re sults for this AM BI DEVELOPER transplant procedure are in Anemia of chronic the result s renal failure, section. unspecified CKD stage Hypermagnesemia Proteinuria, unspecified type Essential hypertension, malignant Chronic kidney disease, stage III (moderate) (HCC) Disorder of phosphorus metabolism HC COMPLETE BLD COUNT Routine 02/21/2019 7:56 Kidney replaced by Results for this W/AUTO DIFF AM BI DEVELOPER transplant procedure are in Anemia of chronic the result s renal failure, section. unspecified CKD stage Hypermagnesemia Proteinuria, unspecified type Essential hypertension, malignant Chronic kidney disease, stage III (moderate) (HCC) Disorder of phosphorus metabolism URINE CULTURE Routine 02/21/2019 7:56 Results fo r this AM BI DEVELOPER procedure are i n the results section. after 08/29/2018 Results Estimated GFR (07/04/2019 9:01 AM CDT)Only the most recent of3 resultswithin the time period is included. Pathologist [facility] Estimated GFR 71 mL/min/1.73 [facility] Comment: m2 HOSPITAL Catergory Units Interpretation G1 >=90 Normal or high G2 60-89 Mildly decreased G3a 45-59 Mildly to moderately decreas ed G3b 30-44 Moderately to severely decre ased G4 15-29 Severely decreased G5 <15 Kidney failure The eGFR was calculated using the Chronic Kidney Disea se Epidemiology Collaboration (CKD-EPI) equation. Interpretation is based on recommendations of the National Kidney Foundation-Kidney Disease Outcomes Cade lity Initiative (NKF-KDOQI) published in 2014. Specimen Performing Organization Address City/[facility]/Zipcode Phone Number [facility] DEPARTMENT OF PATHOLOGY AND [address] [place] [phone] Cyclosporine level, random (07/04/2019 9:01 AM CDT)Only the most recent of3 resultswithin the time period is included. [facility] [address] Cyclosporine 140 ng/mL [facility] Comment: HOSPITAL Unless administered by continuous IV drip, collect a p urple top tube just before the next dose. Therapeutic range of approximately 100-500 varies mainly with type of trans plant, use of other immunosuppressive agents, and evidence of toxicity or rejection. Test performed using [employer] [facility] chemiluminescent microparticle immunoassay for Cyclosporine on the [employer] i System. Specimen Blood Performing Organization Address City/State/Zipcode Phone Number [facility] DEPARTMENT OF PATHOLOGY AND [address] [place] [address] [phone] [address] CBC with platelet and differential (07/04/2019 9:01 AM CDT)Only the most recent of3 resultswithin the time period is included. [facility] [address] WBC 7.79 4.50 - 11.00 [facility] RBC 4.73 4.40 - 6.00 [facility] HGB 15.8 14.0 - 18.0 [facility] g/dL HOSPITAL HCT 45.4 41.0 - 51.0 % [facility] MCV 96.0 82.0 - 100.0 [facility] MCH 33.4 27.0 - 34.0 pg [facility] MCHC 34.8 31.0 - 37.0 [facility] g/dL [facility] RDW - SD 39.6 37.0 - 55.0 fL [facility] MPV 9.3 8.8 - 13.2 fL [facility] Platelet count 283 150 - 400 k/uL [facility] Nucleated RBC 0.00 /100 WBC [facility] Neutrophils 60.4 39.0 - 69.0 % [facility] Lymphocytes 27.1 25.0 - 45.0 % [facility] Monocytes 10.4 (H) 0.0 - 10.0 % [facility] Eosinophils 1.0 0.0 - 5.0 % [facility] Basophils 0.6 0.0 - 1.0 % [facility] Immature granulocytes 0.5Comment: 0.0 - 1.0 % [facility] granulocytes" (promyelocytes , myelocytes, metamyelocytes ) Specimen Blood Performing Organization Address City/[facility]ode Phone Number [facility] DEPARTMENT OF PATHOLOGY AND [address] [place] [address] [phone] [address] Uric acid level (07/04/2019 9:01 AM CDT)Only the most recent of3 resultswithin the time period is included. Pathologist Sig nature Uric acid 5.8 3.4 - 7.0 mg/dL [facility] Specimen Blood Performing Organization Address City/[facility] Cent[facility]ode Phone Number [facility] DEPARTMENT OF PATHOLOGY AND [address] [place] [address] [phone] [address] Phosphorus level (07/04/2019 9:01 AM CDT)Only the most recent of3 resultswithin the time period is included. Pathologist Sig nature Phosphorus 2.0 (L) 2.4 - 4.5 mg/dL [facility] Specimen Blood Performing Organization Address City/[facility] Centercode Phone Number [facility] DEPARTMENT OF PATHOLOGY AND [address] [place] [address] [phone] [address] Magnesium level (07/04/2019 9:01 AM CDT)Only the most recent of3 resultswithin the time period is included. Pathologist Sig nature Magnesium 2.1 1.6 - 2.6 mg/dL [facility] L Specimen Blood Performing Organization Address City/[facility]ercode Phone Number [facility] DEPARTMENT OF PATHOLOGY AND [address] [place] [address] [phone] [address] LDH (07/04/2019 9:01 AM CDT)Only the most recent of3 resultswithin the time period is included. Pathologist Sig nature LDH 167 87 - 225 U/L [facility] Specimen Blood Performing Organization Address [facility] Centercode Phone Number [facility] DEPARTMENT OF PATHOLOGY AND [address] [place] [address] [phone] [address] Comprehensive metabolic panel (07/04/2019 9:01 AM CDT)Only the most recent of3 resultswithin the time period is included. Sodium 136 135 - 148 [facility] mEq/L [facility] Potassium 4.3 3.5 - 5.0 [facility] mEq/L [facility] Chloride 99 98 - 112 [facility] mEq/L [facility] CO2 24 24 - 31 mEq/L [facility] Anion gap 13@ANIO 7 - 15 mEq/L [facility] BUN 18 6 - 20 mg/dL [facility] Creatinine 1.31 (H) 0.70 - 1.20 [facility] mg/dL HOSPITAL Glucose 108 (H) 65 - 99 mg/dL [facility] Calcium 10.5 (H) 8.3 - 10.2 [facility] mg/dL HOSPITAL Protein 8.2 6.3 - 8.3 [facility] Comment: g/dL [facility] [place] 4.6-7.0 g/dL 1 week 4.4-7.6 g/dL 7 months-1year 5.1-7.3 g/dL 1-2 years 5.6-7.5 g/dL >3 years 6.0-8.0 g/dL 18-150 6.3-8.3 g/dL Albumin 3.8 3.5 - 5.0 [facility] g/dL HOSPITAL A/G ratio 0.9 0.7 - 3.8 [facility] Alkaline phosphatase 73 40 - 129 U/L [facility] AST 20 10 - 50 U/L [facility] ALT 29 5 - 50 U/L [facility] Total bilirubin 0.6 0.0 - 1.2 [facility] mg/dL HOSPITAL Specimen Blood Performing Organization Address City/[facility] Centercode Phone Number [facility] DEPARTMENT OF PATHOLOGY AND [address] [place] [phone] [facility] [address] [address] Urinalysis screen and microscopy, with reflex to culture (07/04/2019 8:56 AM CDT)Only the most recent of3 resultswithin the time period is included. Specimen site Clean catch [facility] Color, UA Dark Yellow [facility] Appearance, UA Clear [facility] Specific gravity, UA 1.027 1.001 - 1.035 [facility] pH, UA 5.0 5.0 - 8.5 [facility] Protein, UA 3+ (A) Negative [facility] Glucose, UA Negative Negative [facility] Ketones, UA Negative Negative [facility] Bilirubin, UA Negative Negative [facility] Blood, UA Moderate (A) Negative [facility] Nitrite, UA Negative Negative [facility] Urobilinogen, UA 4.0 (A) <2.0 [facility] Leukocyte esterase, Negative Negative [facility] Epithelial cells, UA <1 /HPF [facility] WBC, UA 2 (H) 0 - 1 /HPF [facility] RBC, UA 9 (H) 0 - 5 /HPF [facility] Bacteria, UA None seen None seen [facility] Yeast, UA None seen [facility] Yeast with None seen [facility] pseudohyphae, [facility] Hyaline casts, UA 3 /LPF [facility] Specimen Urine Performing Organization Address [facility] Centercode Phone Number [facility] DEPARTMENT OF PATHOLOGY AND [address] [place], [place] [phone] [facility] [address] [address] Protein, urine, random (07/04/2019 8:56 AM CDT)Only the most recent of3 results within the time period is included. Pathologist Sig nature Protein, urine random 373 mg/dL [facility] Specimen Urine Performing Organization Address City/State/[facility] Centercode Phone Number [facility] DEPARTMENT OF PATHOLOGY AND [address] [place] [address] [place] [phone] Creatinine level, urine, random (07/04/2019 8:56 AM CDT)Only the most recent of 3 resultswithin the time period is included. Pathologist Sig nature Creatinine, urine, 298 mg/dL [facility] Specimen Urine Performing Organization Address City/[facility] Phone Number [facility] DEPARTMENT OF PATHOLOGY AND [address] [place] [phone] Urine culture (07/04/2019 8:56 AM CDT)Only the most recent of3 resultswithin the time period is included. Pathologist Sig nature Urine culture SEE COMMENTComment: [facility] Bacteriuria screen HOSPITAL negative. Specimen Performing Organization Address City/[facility] Phone Number [facility] DEPARTMENT OF PATHOLOGY AND [address] [place] [phone] [id number] Tacrolimus level, random (03/02/2019 8:54 AM BI DEVELOPER) FK506 level <2.0 ng/mL [facility] Comment: HOSPITAL Therapeutic range 5-20 ng/mL for 12 hour trough. The r caleb varies depending on the organ transplanted, time after transplantation and co-administered immunosuppressant therapies. Please use clinical judgment to interpret test result. Test performed using [facility] chemiluminescent microparticle immunoassay for Tacrolimus on the [employer] i System. Specimen Blood Performing Organization Address City/State/Zipcode Phone Number [facility] DEPARTMENT OF PATHOLOGY AND [address] [place] [phone] after 08/29/2018 Insurance Payer Benefit Plan / Subscriber ID Effective Dates Phone Addre ss Type Group MEDICARE MEDICARE PART A xxxxxxxxxxx 1993-Present [facility] [place] AND B
--- OUTSIDE RECORDS SUMMARY | 2019-08-30 16:15 | XMS REPORT | Clinical Summary ---
:1965 Author Organization [facility] Address [address] [place] [address] Care Team Providers Name Role Phone Akin Green MD Primary Care Provider Unavailable Allergies No Known Allergies Medications Not on [...] Not on file Results Not on fileafter 08/29/2018 Insurance Payer Benefit Plan / Group Subscriber ID Type Phone [facility] [employer] [facility]
--- OUTSIDE RECORDS SUMMARY | 2019-08-30 16:16 | XMS REPORT ---
:1965 Author Organization [facility] t Address [address] [place] [address] Care Team Providers Name Role Phone Ernie ALVAREZ M. Primary Care Physician Jean Paul Fabian MD Attending Clinician Satish Klein MD Attending Clinician Payers Payer Name Policy Policy Number Effective Expiration Source Type Date Date MEDICAREMEDICARE PART xxxxxxxxxxx 1993 Victorino Arredondo AND 00:00:00 [place] Problems Condition Condition Condition Status Onset Resolution Last Treating Co mments Source Name Details Category Date Date Treatment Clinician Date Kidney Kidney Disease Active 2017-04 [place] transplant transplant 0-08 [place] recipient recipient 00:00: st 00 Right Right Disease Active 2017-04 [place] upper upper 0-08 [facility] quadrant quadrant 00:00: st abdominal abdominal 00 pain pain Disorder Disorder Disease Active 2017-04 [place] of liver of liver 0-06 Method i 00:00: st 00 Cholelithi Cholelithi Disease Active 2017-04 [place] asis asis 0-05 [facility] 00:00: st 00 Allergies, Adverse Reactions, Alerts This patient has no known allergies or adverse reactions. Social History Social Habit Start Date Stop Date Quantity Comments Source Sex Assigned At [facility] ethodist Alcohol intake 2018-01-18 2018-01-18 Current [facility] thodist 00:00:00 00:00:00 non-drinker of alcohol (finding) Tobacco Comment 2018-01-15 2018-01-15 "Quit 2-3 months Tiffany yee Amish 00:00:00 00:00:00 ago" Smoking Status Start Date Stop Date Source Former smoker 2018-01-18 00:00:00 2018-01-18 00:00:00 Kavon Trivedi Medications Ordered Filled Start Stop Current Ordering Indication Dosage Frequency Signature Comments Components Source Medication Medication Date Date Medication? Clinician (SIG) Name Name pantoprazol 2017-04 Yes 40mg Q.5D Take 40 mg Jacobson e 0-09 by mouth 2 [facility] (PROTONIX) 15:18: (two) st 40 MG EC 37 times a tablet day. promethazin 2017-04 Yes 50mg Q12H Take 50 mg [place]son e 0-09 by mouth [facility] (PHENERGAN) 15:18: every 12 st 50 MG 37 (twelve) tablet hours as needed for nausea or vomiting. diltiazem 2017-04 Yes 240mg QD Take 240 Tiffany ston CD 0-09 mg by [facility] (CardIZEM 15:18: mouth st CD) 240 MG 37 daily. 24 hr capsule mycophenola 2017-04 Yes 500mg Q.5D Take 500 [place] te 0-09 mg by [facility] (CELLCEPT) 15:18: mouth 2 st 500 mg 37 (two) tablet times a day. valsartan 2017-04 Yes 40mg QD Take 40 mg [place] (DIOVAN) 40 0-09 by mouth Meth jose e MG tablet 15:18: daily. st 37 Procedures Procedure Date / Time Performed Performing Clinician [facility] e COMPLETE BLD COUNT 2019-07-04 14:01:00 Usha Fabian W/AUTO DIFF MAGNESIUM LEVEL 2019-07-04 14:01:00 Usha Fabian PHOSPHORUS LEVEL 2019-07-04 14:01:00 Usha Fabian URIC ACID LEVEL 2019-07-04 14:01:00 Usha Fabian LDH 2019-07-04 14:01:00 Usha Fabian COMPREHENSIVE METABOLIC 2019-07-04 14:01:00 Usha Fabian PANEL CYCLOSPORINE LEVEL, 2019-07-04 14:01:00 Usha Fabian RANDOM ESTIMATED GFR 2019-07-04 14:01:00 Usha Fabian URINE CULTURE 2019-07-04 13:56:00 Usha Fabian URINALYSIS SCREEN AND 2019-07-04 13:56:00 Usha Fabian MICROSCOPY, WITH REFLEX TO CULTURE PROTEIN, URINE, RANDOM 2019-07-04 13:56:00 Usha Fabian CREATININE LEVEL, URINE, 2019-07-04 13:56:00 Usha Fabian Amish RANDOM URINE CULTURE 2019-03-02 14:54:00 Juan Klein De thodist COMPREHENSIVE METABOLIC 2019-03-02 14:54:00 Juan Kleinist PANEL HC COMPLETE BLD COUNT 2019-03-02 14:54:00 Juan Klein W/AUTO DIFF MAGNESIUM LEVEL 2019-03-02 14:54:00 Juan Klein De thodist PHOSPHORUS LEVEL 2019-03-02 14:54:00 Juan Klein ethodist URIC ACID LEVEL 2019-03-02 14:54:00 Juan Klein De thodist LDH 2019-03-02 14:54:00 Juan Klein De thodist URINALYSIS SCREEN AND 2019-03-02 14:54:00 Juan Klein MICROSCOPY, WITH REFLEX TO CULTURE CREATININE LEVEL, URINE, 2019-03-02 14:54:00 Juan Klein RANDOM PROTEIN, URINE, RANDOM 2019-03-02 14:54:00 Juan Klein FK506 TACROLIMUS LEVEL, 2019-03-02 14:54:00 Juan Klein Amish RANDOM ESTIMATED GFR 2019-03-02 14:54:00 Juan Klein De thodist CYCLOSPORINE LEVEL, 2019-03-02 14:54:00 Juan Klein Amish RANDOM URINE CULTURE 2019-02-21 13:56:00 Juan Klein De thodist HC COMPLETE BLD COUNT 2019-02-21 13:56:00 Juan Kleinist W/AUTO DIFF MAGNESIUM LEVEL 2019-02-21 13:56:00 Juan Klein De thodist PHOSPHORUS LEVEL 2019-02-21 13:56:00 Juan Klein ethodist URIC ACID LEVEL 2019-02-21 13:56:00 Juan Klein De thodist LDH 2019-02-21 13:56:00 Juan Klein De thodist URINALYSIS SCREEN AND 2019-02-21 13:56:00 Juan Klein Amish MICROSCOPY, WITH REFLEX TO CULTURE CREATININE LEVEL, URINE, 2019-02-21 13:56:00 Juan Klein [place] RANDOM PROTEIN, URINE, RANDOM 2019-02-21 13:56:00 Juan Klein Amish COMPREHENSIVE METABOLIC 2019-02-21 13:56:00 Juan Klein Amish PANEL CYCLOSPORINE LEVEL, 2019-02-21 13:56:00 Juan Klein Amish RANDOM ESTIMATED GFR 2019-02-21 13:56:00 [facility] Planned Activity Planned Date Details Comments Source Future Scheduled 2019-11-12 INFLUENZA VACCINE [place] [facility] Test 00:00:00 [code = INFLUENZA VACCINE] Future Scheduled 2016-02-28 COLONOSCOPY SCREENING [place] [facility] Test 00:00:00 [code = COLONOSCOPY SCREENING] Future Scheduled 2016-02-28 SHINGLES VACCINES [place] [facility] Test 00:00:00 (#1) [code = SHINGLES VACCINES (#1)] Encounters Start End Encounter Admission Attending Care Care Encounter Source Date/Time Date/Time Type Type Clinicians Facility Department ID 2019-07-04 2019-07-04 Outpatient Usha FABIAN [facility] [id number] [place] 00:00:00 00:00:[address] Results Test Description Test Time Test Comments Results Result Comments Source Cyclosporine level, random 2019-07-04 18:56:52 Test Item Value Reference Range Interpretation Comme nts Cyclosporine (test code = 140 ng/mL Un less administered by continuous IV drip, 33851-1) collect a purpl e top tube just before the next dose. Ther apeutic range of approximately 1 00-500 varies mainly with type of transpl ant,use of other immunosuppressi ve agents, and evidence of toxicity or rej ection. Test performed using [employer] t chemiluminescen tmicroparticle immunoassay for Cyclosporin e on the SERVICE DESK ANALYST i System. [facility]avon [facility] [id number] 16:43:07 Test Item Value Reference Range Interpretation Comments Sodium (test code = 136 135- 148 mEq/L 2951-2) Potassium (test code = 4.3 3.5- 5.0 mEq/L 2823-3) Chloride (test code = 99 98- 112 mEq/L 2075-0) CO2 (test code = 2027-9) 24 24- 31 mEq/L Anion gap (test code = 13@ANIO 7- 15 mEq/L 55504-3) BUN (test code = 3094-0) 18 mg/dL 6-20 Creatinine (test code = 1.31 mg/dL 0.7-1.2 H 2160-0) Glucose (test code = 108 mg/dL 65-99 H 2345-7) Calcium (test code = 10.5 mg/dL 8.3-10.2 H 32788-1) Protein (test code = 8.2 g/dL 6.3-8.3 -[place] n 2885-2) 4.6-7.0 g/dL1 week 4.4-7 .6 g/dL7 months-1y ear 5.1-7 .3 g/dL1-2 years 5.6-7 .5 g/dL>3 years 6.0-8 .0 g/gA81-591 6.3-8 .3 g/dL Albumin (test code = 3.8 g/dL 3.5-5 1751-7) A/G ratio (test code = 0.9 0.7-3.8 1759-0) Alkaline phosphatase 73 U/L 40-129 (test code = 6768-6) AST (test code = 1920-8) 20 U/L 10-50 ALT (test code = 1742-6) 29 U/L 5-50 Total bilirubin (test 0.6 mg/dL 0-1.2 code = 1974-2) Lab Interpretation (test Abnormal code = 62907-6) Kavon [id number] 16:43:07 Test Item Value Reference Range Interpretation Comments LDH (test code = 07935-0) 167 U/L 87-225 [facility] [id number] 16:43:07 Test Item Value Reference Range Interpretation Comments Magnesium (test code = 97047-2) 2.1 mg/dL 1.6-2.6 Jacobson MethodistPhosphorus [id number] 16:43:07 Test Item Value Reference Range Interpretation Comments Phosphorus (test code = 2777-1) 2.0 mg/dL 2.4-4.5 L Lab Interpretation (test code = Abnormal 37845-1) [place] MethodistUric acid [id number] 16:43:07 Test Item Value Reference Range Interpretation Comments Uric acid (test code = 3084-1) 5.8 mg/dL 3.4-7 Jacobson MethodistEstimated [id number] 16:43:07 Test Item Value Reference Range Interpretation Comments Estimated GFR (test 71 mL/min/1.73 m2 Caterg ory Units code = 5488) InterpretationG 1 >=90 Normal or highG2 60-89 Mildly lkmelunmaX9h 45-59 Mildly to mode rately hqtvukgwiI5u 30-44 Moderately to severely decreasedG4 15-29 Severely decre asedG5 <15 Kidn ey failureThe eGFR was calculated maryuri g the Chronic Kidney Disease Epidemiology Co llaboration (CKD-EPI) equat ion. Interpretation is based on recommendations of the National Kidney Foundation-Kidn ey Disease Outcomes Qualit y Initiative (NKF-KDOQI) pub lished in 2014. Jacobson MethodistProtein, urine, [id number] 16:11:54 Test Item Value Reference Range Interpretation Comments Protein, urine random (test code = 373 mg/dL 2888-6) [place] MethodistCreatinine level, urine, [id number] 16:00:13 Test Item Value Reference Range Interpretation Comments Creatinine, urine, random (test 298 mg/dL code = 42807-0) Jacobson MethodistUrine [id number] 15:16:27 Test Item Value Reference Range Interpretation Comments Urine culture (test SEE COMMENT Bacteriu deandre screen code = 3849350) negative. Jacobson MethodistUrinalysis screen and microscopy, with reflex to culture 2019-07-04 15:16:25 Test Item Value Reference Range Interpretation Comments Specimen site (test code = Clean catch 3457579) Color, UA (test code = 5778-6) Dark Yellow Appearance, UA (test code = Clear 5767-9) Specific gravity, UA (test code = 1.027 1.001-1.035 5811-5) pH, UA (test code = 5803-2) 5.0 5.0-8.5 Protein, UA (test code = 82942-6) 3+ Negative A Glucose, UA (test code = 93215-2) Negative Negative Ketones, UA (test code = 2514-8) Negative Negative Bilirubin, UA (test code = Negative Negative 5770-3) Blood, UA (test code = 5794-3) Moderate Negative A Nitrite, UA (test code = 5802-4) Negative Negative Urobilinogen, UA (test code = 4.0 <2.0 A 07875-0) Leukocyte esterase, UA (test code Negative Negative = 5799-2) Epithelial cells, UA (test code = <1 /HPF 5787-7) WBC, UA (test code = 5821-4) 2 0- 1 /HPF H RBC, UA (test code = 38557-7) 9 0- 5 /HPF H Bacteria, UA (test code = None seen None seen 35020-4) Yeast, UA (test code = 64843-6) None seen Yeast with pseudohyphae, UA (test None seen code = 68976-8) Hyaline casts, UA (test code = 3 /LPF 5796-8) Lab Interpretation (test code = Abnormal 05154-8) [facility] with platelet and [id number] 15:02:15 Test Item Value Reference Range Interpretation Comments WBC (test code = 01257-1) 7.79 4.50- 11.00 k/uL RBC (test code = 93005-7) 4.73 m/uL 4.4-6 HGB (test code = 718-7) 15.8 g/dL 14-18 HCT (test code = 4544-3) 45.4 % 41-51 MCV (test code = 787-2) 96.0 fL 82-100 MCH (test code = 785-6) 33.4 pg 27-34 MCHC (test code = 786-4) 34.8 g/dL 31-37 RDW - SD (test code = 39.6 fL 37-55 85304-5) MPV (test code = 92921-3) 9.3 fL 8.8-13.2 Platelet count (test code 283 150- 400 k/uL = 22609-6) Nucleated RBC (test code 0.00 /100 WBC = 11931-9) Neutrophils (test code = 60.4 % 39-69 35082-6) Lymphocytes (test code = 27.1 % 25-45 95127-2) Monocytes (test code = 10.4 % 0-10 H 58971-9) Eosinophils (test code = 1.0 % 0-5 67024-7) Basophils (test code = 0.6 % 0-1 51064-0) Immature granulocytes 0.5 % 0-1 "Immat ure (test code = 01178-9) granul ocytes" (promyelocytes, myelocytes, metamyelocytes) Lab Interpretation (test Abnormal code = 04470-3) Kavon TrivediFK506 Tacrolimus level, [id number] 21:50:23 Test Item Value Reference Range Interpretation Comments FK506 level (test <2.0 ng/mL Therapeuti c range 5-20 ng/mL code = 28244-1) for 12 hour trough. The range varies dependin g on the organ transplanted, t geovanny after transplantation and co-administered immunosuppressa nt therapies. Please use clin ical judgment to interpret te st result.Test performed using [facility] Supervisor chemi luminescent microparticle i mmunoassay for Tacrolimus on t [employer] SERVICE DESK ANALYST i System. Kavon Trivedi
[2019-08-30] MEDS ORDERED: HYDROCODONE/APAP 7.5/325 MG TAB ONE (16:58)
[2019-08-30 17:25] LABS: Basophils % 0.8 % (0-1.3); Hematocrit 36.9 % (39.6-49.0); Lymphocytes % 20.7 % (15.3-44.8); MPV 7.6 fL (7.6-11.3); RBC Red Blood Cell Count 3.88 M/uL (4.33-5.43)
[2019-08-30 17:27] LABS: Protime INR 0.96
[2019-08-30 17:44] LABS: Potassium 3.5 mmol/L (3.5-5.1)
--- NOTE | 2019-08-30 19:57 | EDPHYS ---
Physician Documentation [facility] Name: Shoaib Freitas Jr Age: 54 yrs Sex: Male : 1965 Arrival Date: 08/30/2019 Time: 16:14 Bed 17 Private MD: ED Physician Panfilo Peter HPI: 08/29 16:50 This 54 yrs old Black Male presents to ER via Ambulatory with complaints of Leg Pain, cp Leg Swelling. 16:50 The patient presents with pain, that is acute, swelling, tenderness. The complaints cp affect the lateral aspect of right anterior lower leg. 16:50 Onset: The symptoms/episode began/occurred 3 day(s) ago. Associated signs and symptoms: cp Pertinent positives: swelling, warmth, erythema, Pertinent negatives fever, injury. Historical: - Allergies: 19:23 No Known Allergies; tw2 - Home Meds: 16:45 diltiazem HCl 240 mg Oral cpER 1 cap once daily for Hypertension [Active]; prednisone 5 ph mg Oral tab once daily [Active]; valsartan 40 mg Oral tab 1 tab once daily for Hypertension [Active]; - PMHx: 16:45 Gall Stones; history of dialysis; Hypertension; kidney transplant; Pancreatitis; ph - PSHx: 16:45 Cholecystectomy; ph - Immunization history:: Adult Immunizations. - Social history:: Smoking status: . ROS: 16:55 Constitutional: Negative for body aches, chills, fever, poor PO intake. cp 16:55 Eyes: Negative for injury, pain, redness, and discharge. cp 16:55 ENT: Negative for ear pain, sore throat, difficulty swallowing, difficulty handling secretions. 16:55 Cardiovascular: Negative for chest pain, palpitations. 16:55 Respiratory: Negative for cough, shortness of breath, wheezing. 16:55 Abdomen/GI: Negative for abdominal pain, nausea, vomiting, and diarrhea. 16:55 MS/extremity: Positive for pain, swelling, tenderness, of the right lower leg, Negative for injury or acute deformity. 16:55 Neuro: Negative for altered mental status, headache, weakness. 16:55 All other systems are negative. Exam: 17:05 Constitutional: The patient appears in no acute distress, alert, awake, non-toxic, well cp developed, well nourished. 17:05 Head/Face: Normocephalic, atraumatic. cp 17:05 Chest/axilla: Inspection: normal. 17:05 Cardiovascular: Rate: normal. 17:05 Respiratory: the patient does not display signs of respiratory distress, Respirations: normal. 17:05 Musculoskeletal/extremity: Extremities: grossly normal except: noted in the lateral aspect of right anterior lower leg: erythema, pain, swelling, tenderness, Perfusion: the extremity is normally perfused throughout, Sensation intact. 17:05 Skin: intact with no open wounds noted. Vital Signs: 16:42 BP 130 / 75; Pulse 92; Resp 18; Temp 98.6; Pulse Ox 97% on R/A; Weight 99.79 kg; Height ph 5 ft. 11 in. (180.34 cm); 18:00 BP 124 / 79; Pulse 76; Resp 17; Pulse Ox 100% on R/A; tw2 19:00 BP 139 / 84; Pulse 73; Resp 17; Pulse Ox 100% on R/A; tw2 20:00 BP 138 / 78; Pulse 70; Resp 18; Pulse Ox 99% on R/A; ea 16:42 Body Mass Index 30.68 (99.79 kg, 180.34 cm) ph MDM: 16:38 Patient medically screened. cp 19:54 Data reviewed: vital signs, nurses notes, lab test result(s). ED course: [facility] cp reports US of right leg negative for DVT. 08/29 16:46 Order name: CBC with Diff; Complete Time: 18:18 08/29 18:18 Interpretation: Normal except: RBC 3.88; HGB 12.7; HCT 36.9. 08/29 16:46 Order name: BMP; Complete Time: 18:18 08/29 18:18 Interpretation: Normal except: CL 110; GLUC 142; BUN 21; CRE 1.46; GFR 61. 08/29 16:46 Order name: US Extremity Venous Unilateral Ltd 08/29 16:46 Order name: PT-INR; Complete Time: 18:18 08/29 16:47 Order name: IV; Complete Time: 17:29 cp Administered Medications: 16:54 Drug: Hydrocodone-Acetaminophen (7.5 mg-325 mg) 1 tabs Route: PO; tw2 19:00 Follow up: Response: No adverse reaction ea 20:05 Drug: Rocephin 1 grams Route: IV; Rate: calculated rate; Site: right hand; ea 20:24 Follow up: Response: Medication administered at discharge. ea 20:24 Follow up: Response: No adverse reaction ea 20:24 Follow up: IV Status: Completed infusion ea 20:20 Drug: Doxycycline 100 mg Route: PO; ea 20: Follow up: Response: No adverse reaction ea 20:20 Drug: Bactrim (160 mg-800 mg (DS) 1 tablet Route: PO; ea 20: Follow up: Response: No adverse reaction; Medication administered at discharge. ea Disposition: 08/30 07:56 Co-signature as Attending Physician, Panfilo Peter MD I agree with the assessment and kdr plan of care. Disposition: 08/30/19 19:56 Discharged to Home. Impression: Cellulitis of right lower limb. - Condition is Stable. - Discharge Instructions: Cellulitis, Adult. - Prescriptions for Doxycycline Hyclate 100 mg Oral Tablet - take 1 tablet by ORAL route every 12 hours; 20 tablet. Bactrim DS 800- 160 mg Oral Tablet - take 1 tablet by ORAL route every 12 hours for 10 days; 20 tablet. Tylenol- Codeine #3 300-30 mg Oral Tablet - take 2 tablets by ORAL route every 8 hours As needed; 15 tablet. - Medication Reconciliation Form, Thank You Letter, Antibiotic Education, Prescription Opioid Use, Work release form, Family Work Release form. - Follow up: Private Physician; When: 1 - 2 days; Reason: Recheck today's complaints. - Problem is new. - Symptoms have improved. Signatures: Dispatcher [employer] EDPanfilo Robledo MD MD [facility] Sara Dumotn RN RN ph Vidal Dejesus PA PA cp Maia Hough RN RN 2 Anni Rivas RN RN ea Corrections: (The following items were deleted from the chart) 08/29 20:25 19:56 08/30/2019 19:56 Discharged to Home. Impression: Cellulitis of right lower limb. ea Condition is Stable. Forms are Medication Reconciliation Form, Thank You Letter, Antibiotic Education, Prescription Opioid Use. Follow up: Private Physician; When: 1 - 2 days; Reason: Recheck today's complaints. Problem is new. Symptoms have improved. cp
--- NOTE | 2019-08-30 19:57 | ER ---
Nurse's Notes [facility] Name: Shoaib Freitas Jr Age: 54 yrs Sex: Male : 1965 Arrival Date: 08/30/2019 Time: 16:14 Bed 17 Private MD: Diagnosis: Cellulitis of right lower limb Presentation: 08/29 16:42 Chief complaint: Patient states: R leg pain and swelling x 2-3 days, states, " I think ph I have cellulitis again." Denies fever, N/V, redness and swelling noted to R lower leg. Coronavirus screen: Patient denies a cough. Patient denies shortness of breath or difficulty breathing. Patient denies measured and/or subjective temperature greater than 100.4F prior to today's visit. Patient denies travel on a cruise ship or to a country the [facility] currently lists as an affected area. Patient denies contact with known and/or suspected case of COVID-19. Ebola Screen: No symptoms or risks identified at this time. Initial Sepsis Screen: Does the patient meet any 2 criteria? No. Patient's initial sepsis screen is negative. Does the patient have a suspected source of infection? No. Patient's initial sepsis screen is negative. Risk Assessment: Do you want to hurt yourself or someone else? Patient reports no desire to harm self or others. Onset of symptoms was August 30, 2019. 16:42 Method Of Arrival: Ambulatory ph 16:42 Acuity: COBY 3 ph Historical: - Allergies: 19:23 No Known Allergies; tw2 - Home Meds: 16:45 diltiazem HCl 240 mg Oral cpER 1 cap once daily for Hypertension [Active]; prednisone 5 ph mg Oral tab once daily [Active]; valsartan 40 mg Oral tab 1 tab once daily for Hypertension [Active]; - PMHx: 16:45 Gall Stones; history of dialysis; Hypertension; kidney transplant; Pancreatitis; ph - PSHx: 16:45 Cholecystectomy; ph - Immunization history:: Adult Immunizations. - Social history:: Smoking status: . Screenin:22 Abuse screen: Denies threats or abuse. Nutritional screening: No deficits noted. tw2 Tuberculosis screening: No symptoms or risk factors identified. Fall Risk None identified. Assessment: 16:45 General: Appears in no apparent distress. well groomed, Behavior is calm, cooperative, tw2 appropriate for age. Pain: Complains of pain in lateral aspect of right calf and right macias. Neuro: Level of Consciousness is awake, alert, obeys commands, Oriented to person, place, time, situation. Cardiovascular: Heart tones S1 S2 Patient's skin is warm and dry. Respiratory: Airway is patent Respiratory effort is even, unlabored, Respiratory pattern is regular, symmetrical, Breath sounds are clear bilaterally. GI: No signs and/or symptoms were reported involving the gastrointestinal system. Abdomen is round non-distended, Bowel sounds present X 4 quads. : No signs and/or symptoms were reported regarding the genitourinary system. EENT: No signs and/or symptoms were reported regarding the EENT system. Derm: redness noted to right lower extremity, pt reports increased redness and swelling for 2 days or so, pt states "but i have been working and i know i need to get it checked out". 18:00 Reassessment: Patient appears in no apparent distress at this time. No changes from tw2 previously documented assessment. Patient and/or family updated on plan of care and expected duration. Pain level reassessed. Patient is alert, oriented x 3, equal unlabored respirations, skin warm/dry/pink. 19:00 Reassessment: Patient appears in no apparent distress at this time. No changes from tw2 previously documented assessment. Patient and/or family updated on plan of care and expected duration. Pain level reassessed. Patient is alert, oriented x 3, equal unlabored respirations, skin warm/dry/pink. 20:21 Reassessment: Patient and/or family updated on plan of care and expected duration. Pain ea level reassessed. Patient is alert, oriented x 3, equal unlabored respirations, skin warm/dry/pink. Discharge instruction given to patient, verbalized the understanding of instruction. Pt left ED ambulatory tolerating well. Vital Signs: 16:42 BP 130 / 75; Pulse 92; Resp 18; Temp 98.6; Pulse Ox 97% on R/A; Weight 99.79 kg; Height ph 5 ft. 11 in. (180.34 cm); 18:00 BP 124 / 79; Pulse 76; Resp 17; Pulse Ox 100% on R/A; tw2 19:00 BP 139 / 84; Pulse 73; Resp 17; Pulse Ox 100% on R/A; tw2 20:00 BP 138 / 78; Pulse 70; Resp 18; Pulse Ox 99% on R/A; ea 16:42 Body Mass Index 30.68 (99.79 kg, 180.34 cm) ph ED Course: 16:14 Patient arrived in ED. ds1 16:35 Vidal Dejesus PA is PHCP. cp 16:35 Panfilo Peter MD is Attending Physician. cp 16:35 Bed in low position. Call light in reach. Pulse ox on. NIBP on. tw2 16:44 Triage completed. ph 16:45 Arm band placed on Patient placed in an exam room. ph 16:49 Maia Hough RN is Primary Nurse. tw2 17:15 Missed attempt(s): 20 gauge in right wrist. Bleeding controlled, band aid applied, jp3 catheter tip intact. 17:20 Initial lab(s) drawn, by ak, sent to lab. Inserted saline lock: 22 gauge ,using aseptic jp3 technique. Right palmar thumb. Patient maintains SpO2 saturation greater than 95% on room air. 19:00 Report given to PRINCESS Dominguez. tw2 20:22 No provider procedures requiring assistance completed. IV discontinued, intact, ea bleeding controlled, No redness/swelling at site. Pressure dressing applied. 20:55 US Extremity Venous Unilateral Ltd In Process Unspecified. EDMS Administered Medications: 16:54 Drug: Hydrocodone-Acetaminophen (7.5 mg-325 mg) 1 tabs Route: PO; tw2 19:00 Follow up: Response: No adverse reaction ea 20:05 Drug: Rocephin 1 grams Route: IV; Rate: calculated rate; Site: right hand; ea 20:24 Follow up: Response: Medication administered at discharge. ea 20:24 Follow up: Response: No adverse reaction ea 20:24 Follow up: IV Status: Completed infusion ea 20:20 Drug: Doxycycline 100 mg Route: PO; ea 20:23 Follow up: Response: No adverse reaction ea 20:20 Drug: Bactrim (160 mg-800 mg (DS) 1 tablet Route: PO; ea 20:23 Follow up: Response: No adverse reaction; Medication administered at discharge. ea Outcome: 19:56 Discharge ordered by . cp 20:22 Discharged to home ambulatory. ea 20:22 Condition: stable 20:22 Discharge instructions given to patient, Instructed on discharge instructions, follow up and referral plans. medication usage, Demonstrated understanding of instructions, follow-up care, medications, Prescriptions given X 3. 20:25 Patient left the ED. ea Signatures: Dispatcher [employer] [facility] Holli Sherman ds1 Sara Dumont, RN RN Vidal Parmar PA PA cp Wise, Tara RN RN tw2 Anni Rivas RN RN ea Padilla Hall jp3 Corrections: (The following items were deleted from the chart) 20:23 20:20 Rocephin 1 grams IV at calculated rate in right hand ea ea
[2019-08-30] MEDS ORDERED: DOXYCYCLINE 100 MG CAP PO ONE (20:15)
[2019-08-30] MEDS ORDERED: CEFTRIAXONE/SWI 1gm 1 GM/10 ML SYR ONE (20:15)
[2019-08-30] MEDS ORDERED: SMZ./TMP. 800/160 MG TABLET ONE (20:15)
--- NOTE | 2019-08-30 21:52 | RAD REPORT ---
EXAM DESCRIPTION: US - Extremity Venous Uni Ltd - 08/30/2019 8:54 pm CLINICAL HISTORY: PAIN Leg swelling and edema. COMPARISON: Extremity Venous Uni Ltd dated 11/26/2018 FINDINGS: Right lower extremity venous system was interrogated with Doppler technique. Normal flow, compressibility and augmentation was noted. There is no DVT present. IMPRESSION: No evidence of right lower extremity deep venous thrombosis.
== END 2019-08-30 20:25 | disposition home or self-care (01) ==
LOC: ER 16:12
DX: L03.115 Cellulitis of right lower limb (principal); I10 Essential (primary) hypertension; Z94.0 Kidney transplant status
CPT/HCPCS: 96365; 85025; 80048; 36415; 85610; 93971; 99284; J0696

== ENCOUNTER 2019-09-09 14:45 | Observation (INO) | payer OTHER ==
--- OUTSIDE RECORDS SUMMARY | 2019-09-09 14:49 | XMS REPORT | Clinical Summary ---
:1965 Author Organization [facility] Address [address] [place] [address] Care Team Providers Name Role Phone Satish [...] Description 07/04/2019 Lab Lab Usha Stone MD [facility] transplant status (Primary Dx); Anemia in chron [...] (HCC); Disorder of mariela sphorus metabolism after 09/08/2018 Social History Tobacco Use Types Packs/Day Years [...] 8:54 Resu lts for this RANDOM AM RESISTANCE WELDER procedure are i n the results section. ESTIMATED GFR Routine 03/02/2019 8:54 Results fo r this AM RESISTANCE WELDER procedure are i n the results section. [id number] TACROLIMUS Routine 03/02/2019 8:54 Kidney replaced by R esults for this LEVEL, RANDOM AM RESISTANCE WELDER transplant procedure are in Essential the results hypertension, section. malignant Proteinuria, unspecified type Anemia of chronic renal failure, unspecified CKD stage Disorder of phosphorus metabolism Hypermagnesemia Chronic kidney disease, stage III (moderate) (HCC) PROTEIN, URINE, RANDOM Routine 03/02/2019 8:54 Kidney replace d by Results for this AM RESISTANCE WELDER transplant procedure are in Essential the results hypertension, section. malignant Proteinuria, unspecified type Anemia of chronic renal failure, unspecified CKD stage Disorder of phosphorus metabolism Hypermagnesemia Chronic kidney disease, stage III (moderate) (HCC) CREATININE LEVEL, Routine 03/02/2019 8:54 Kidney replaced by Results for this URINE, RANDOM AM RESISTANCE WELDER transplant procedure are in Essential the results hypertension, section. malignant Proteinuria, unspecified type Anemia of chronic renal failure, unspecified CKD stage Disorder of phosphorus metabolism Hypermagnesemia Chronic kidney disease, stage III (moderate) (HCC) URINALYSIS SCREEN AND Routine 03/02/2019 8:54 Kidney replaced by Results for this MICROSCOPY, WITH AM RESISTANCE WELDER transplant procedure are in REFLEX TO CULTURE Essential the result s hypertension, section. malignant Proteinuria, unspecified type Anemia of chronic renal failure, unspecified CKD stage Disorder of phosphorus metabolism Hypermagnesemia Chronic kidney disease, stage III (moderate) (HCC) LDH Routine 03/02/2019 8:54 Kidney replaced by Resul ts for this AM RESISTANCE WELDER transplant procedure are in Essential the results hypertension, section. malignant Proteinuria, unspecified type Anemia of chronic renal failure, unspecified CKD stage Disorder of phosphorus metabolism Hypermagnesemia Chronic kidney disease, stage III (moderate) (HCC) URIC ACID LEVEL Routine 03/02/2019 8:54 Kidney replaced by Re sults for this AM RESISTANCE WELDER transplant procedure are in Essential the results hypertension, section. malignant Proteinuria, unspecified type Anemia of chronic renal failure, unspecified CKD stage Disorder of phosphorus metabolism Hypermagnesemia Chronic kidney disease, stage III (moderate) (HCC) PHOSPHORUS LEVEL Routine 03/02/2019 8:54 Kidney replaced by R esults for this AM RESISTANCE WELDER transplant procedure are in Essential the results hypertension, section. malignant Proteinuria, unspecified type Anemia of chronic renal failure, unspecified CKD stage Disorder of phosphorus metabolism Hypermagnesemia Chronic kidney disease, stage III (moderate) (HCC) MAGNESIUM LEVEL Routine 03/02/2019 8:54 Kidney replaced by Re sults for this AM RESISTANCE WELDER transplant procedure are in Essential the results hypertension, section. malignant Proteinuria, unspecified type Anemia of chronic renal failure, unspecified CKD stage Disorder of phosphorus metabolism Hypermagnesemia Chronic kidney disease, stage III (moderate) (HCC) HC COMPLETE BLD COUNT Routine 03/02/2019 8:54 Kidney replaced by Results for this W/AUTO DIFF AM RESISTANCE WELDER transplant procedure are in Essential the results hypertension, section. malignant Proteinuria, unspecified type Anemia of chronic renal failure, unspecified CKD stage Disorder of phosphorus metabolism Hypermagnesemia Chronic kidney disease, stage III (moderate) (HCC) COMPREHENSIVE Routine 03/02/2019 8:54 Kidney replaced by Resu lts for this METABOLIC PANEL AM RESISTANCE WELDER transplant procedure are in Essential the results hypertension, section. malignant Proteinuria, unspecified type Anemia of chronic renal failure, unspecified CKD stage Disorder of phosphorus metabolism Hypermagnesemia Chronic kidney disease, stage III (moderate) (HCC) URINE CULTURE Routine 03/02/2019 8:54 Results fo r this AM RESISTANCE WELDER procedure are i n the results section. ESTIMATED GFR Routine 02/21/2019 7:56 Results fo r this AM RESISTANCE WELDER procedure are i n the results section. CYCLOSPORINE LEVEL, Routine 02/21/2019 7:56 Kidney replaced b y Results for this RANDOM AM RESISTANCE WELDER transplant procedure are in Anemia of chronic the result s renal failure, section. unspecified CKD stage Hypermagnesemia Proteinuria, unspecified type Essential hypertension, malignant Chronic kidney disease, stage III (moderate) (HCC) Disorder of phosphorus metabolism COMPREHENSIVE Routine 02/21/2019 7:56 Kidney replaced by Resu lts for this METABOLIC PANEL AM RESISTANCE WELDER transplant procedure are in Anemia of chronic the result s renal failure, section. unspecified CKD stage Hypermagnesemia Proteinuria, unspecified type Essential hypertension, malignant Chronic kidney disease, stage III (moderate) (HCC) Disorder of phosphorus metabolism PROTEIN, URINE, RANDOM Routine 02/21/2019 7:56 Kidney replace d by Results for this AM RESISTANCE WELDER transplant procedure are in Anemia of chronic the result s renal failure, section. unspecified CKD stage Hypermagnesemia Proteinuria, unspecified type Essential hypertension, malignant Chronic kidney disease, stage III (moderate) (HCC) Disorder of phosphorus metabolism CREATININE LEVEL, Routine 02/21/2019 7:56 Kidney replaced by Results for this URINE, RANDOM AM RESISTANCE WELDER transplant procedure are in Anemia of chronic the result s renal failure, section. unspecified CKD stage Hypermagnesemia Proteinuria, unspecified type Essential hypertension, malignant Chronic kidney disease, stage III (moderate) (HCC) Disorder of phosphorus metabolism URINALYSIS SCREEN AND Routine 02/21/2019 7:56 Kidney replaced by Results for this MICROSCOPY, WITH AM RESISTANCE WELDER transplant procedure are in REFLEX TO CULTURE Anemia of chronic the r esults renal failure, section. unspecified CKD stage Hypermagnesemia Proteinuria, unspecified type Essential hypertension, malignant Chronic kidney disease, stage III (moderate) (HCC) Disorder of phosphorus metabolism LDH Routine 02/21/2019 7:56 Kidney replaced by Resul ts for this AM RESISTANCE WELDER transplant procedure are in Anemia of chronic the result s renal failure, section. unspecified CKD stage Hypermagnesemia Proteinuria, unspecified type Essential hypertension, malignant Chronic kidney disease, stage III (moderate) (HCC) Disorder of phosphorus metabolism URIC ACID LEVEL Routine 02/21/2019 7:56 Kidney replaced by Re sults for this AM RESISTANCE WELDER transplant procedure are in Anemia of chronic the result s renal failure, section. unspecified CKD stage Hypermagnesemia Proteinuria, unspecified type Essential hypertension, malignant Chronic kidney disease, stage III (moderate) (HCC) Disorder of phosphorus metabolism PHOSPHORUS LEVEL Routine 02/21/2019 7:56 Kidney replaced by R esults for this AM RESISTANCE WELDER transplant procedure are in Anemia of chronic the result s renal failure, section. unspecified CKD stage Hypermagnesemia Proteinuria, unspecified type Essential hypertension, malignant Chronic kidney disease, stage III (moderate) (HCC) Disorder of phosphorus metabolism MAGNESIUM LEVEL Routine 02/21/2019 7:56 Kidney replaced by Re sults for this AM RESISTANCE WELDER transplant procedure are in Anemia of chronic the result s renal failure, section. unspecified CKD stage Hypermagnesemia Proteinuria, unspecified type Essential hypertension, malignant Chronic kidney disease, stage III (moderate) (HCC) Disorder of phosphorus metabolism HC COMPLETE BLD COUNT Routine 02/21/2019 7:56 Kidney replaced by Results for this W/AUTO DIFF AM RESISTANCE WELDER transplant procedure are in Anemia of chronic the result s renal failure, section. unspecified CKD stage Hypermagnesemia Proteinuria, unspecified type Essential hypertension, malignant Chronic kidney disease, stage III (moderate) (HCC) Disorder of phosphorus metabolism URINE CULTURE Routine 02/21/2019 7:56 Results fo r this AM RESISTANCE WELDER procedure are i n the results section. after 09/08/2018 Results Estimated GFR (07/04/2019 9:01 AM CDT)Only the most recent of3 resultswithin the time period is included. Pathologist [facility] Estimated GFR 71 mL/min/1.73 [facility] Comment: m2 HOSPITAL Catergory Units Interpretation G1 [...] published in 2014. Specimen Performing Organization Address City/[facility]/Zipcode Phone Number [facility] DEPARTMENT OF PATHOLOGY AND [address] [place] [phone] Cyclosporine level, random (07/04/2019 9:01 AM CDT)Only the most recent of3 resultswithin the time period is included. [facility] Cyclosporine 140 ng/mL [facility] Comment: HOSPITAL Unless administered by continuous IV drip, collect a p urple top tube just before the next dose. Therapeutic range of approximately 100-500 varies mainly with type of trans plant, use of other immunosuppressive agents, and evidence of toxicity or rejection. Test performed using [employer] chemiluminescent microparticle immunoassay for Cyclosporine on the [employer] System. Specimen Blood Performing Organization Address City/State/Zipcode Phone Number [facility] DEPARTMENT OF PATHOLOGY AND [address] [place], [place] [phone] [address] [address] CBC with platelet and differential (07/04/2019 9:01 AM CDT)Only the most recent of3 resultswithin the time period is included. [facility] WBC 7.79 4.50 - 11.00 [facility] RBC 4.73 4.40 - 6.00 [facility] HGB 15.8 14.0 - 18.0 [facility] g/dL HOSPITAL HCT 45.4 41.0 - 51.0 % [facility] MCV 96.0 82.0 - 100.0 [facility] MCH 33.4 27.0 - 34.0 pg [facility] MCHC 34.8 31.0 - 37.0 [facility] g/dL [facility] RDW - SD 39.6 37.0 - 55.0 fL [facility] MPV 9.3 8.8 - 13.2 fL [facility] Platelet count 283 150 - 400 k/uL [facility] Nucleated RBC 0.00 /100 WBC [facility] Neutrophils 60.4 39.0 - 69.0 % [facility] Lymphocytes 27.1 25.0 - 45.0 % [facility] Monocytes 10.4 (H) 0.0 - 10.0 % [facility] Eosinophils 1.0 0.0 - 5.0 % [facility] Basophils 0.6 0.0 - 1.0 % [facility] Immature granulocytes 0.5Comment: 0.0 - 1.0 % [facility] granulocytes" (promyelocytes , myelocytes, metamyelocytes ) Specimen Blood Performing Organization Address City/[facility] Phone Number [facility] DEPARTMENT OF PATHOLOGY AND [address] [place] [address] [phone] [address] Uric acid level (07/04/2019 9:01 AM CDT)Only the most recent of3 resultswithin the time period is included. Pathologist Sig nature Uric acid 5.8 3.4 - 7.0 mg/dL [facility] Specimen Blood Performing Organization Address City/[facility] Phone Number [facility] DEPARTMENT OF PATHOLOGY AND [address] [place] [address] [phone] [address] Phosphorus level (07/04/2019 9:01 AM CDT)Only the most recent of3 resultswithin the time period is included. Pathologist Sig nature Phosphorus 2.0 (L) 2.4 - 4.5 mg/dL [facility] Specimen Blood Performing Organization Address City/[facility] Phone Number [facility] DEPARTMENT OF PATHOLOGY AND [address] [place] [address] [phone] [address] Magnesium level (07/04/2019 9:01 AM CDT)Only the most recent of3 resultswithin the time period is included. Pathologist Sig nature Magnesium 2.1 1.6 - 2.6 mg/dL [facility] L Specimen Blood Performing Organization Address City/[facility] Phone Number [facility] DEPARTMENT OF PATHOLOGY AND [address] [place] [address] [phone] [address] LDH (07/04/2019 9:01 AM CDT)Only the most recent of3 resultswithin the time period is included. Pathologist Sig nature LDH 167 87 - 225 U/L [facility] Specimen Blood Performing Organization Address [facility] Phone Number [facility] DEPARTMENT OF PATHOLOGY AND [address] [place] [address] [phone] [address] Comprehensive metabolic panel (07/04/2019 9:01 AM CDT)Only the most recent of3 resultswithin the time period is included. Sodium 136 135 - 148 [facility] mEq/L [facility] Potassium 4.3 3.5 - 5.0 [facility] mEq/L [facility] Chloride 99 98 - 112 [facility] mEq/L [facility] CO2 24 24 - 31 mEq/L [facility] Anion gap 13@ANIO 7 - 15 mEq/L [facility] BUN 18 6 - 20 mg/dL [facility] Creatinine 1.31 (H) 0.70 - 1.20 [facility] mg/dL HOSPITAL Glucose 108 (H) 65 - 99 mg/dL [facility] Calcium 10.5 (H) 8.3 - 10.2 [facility] mg/dL HOSPITAL Protein 8.2 6.3 - 8.3 [facility] Comment: g/dL [facility] [place] 4.6-7.0 g/dL 1 week 4.4-7.6 g/dL 7 months-1year 5.1-7.3 g/dL 1-2 years 5.6-7.5 g/dL >3 years 6.0-8.0 g/dL 18-150 6.3-8.3 g/dL Albumin 3.8 3.5 - 5.0 [facility] g/dL HOSPITAL A/G ratio 0.9 0.7 - 3.8 [facility] Alkaline phosphatase 73 40 - 129 U/L [facility] AST 20 10 - 50 U/L [facility] ALT 29 5 - 50 U/L [facility] Total bilirubin 0.6 0.0 - 1.2 [facility] mg/dL HOSPITAL Specimen Blood Performing Organization Address City/[facility] Phone Number [facility] DEPARTMENT OF PATHOLOGY AND [address] [place] [phone] [facility] MEDICINE [address] [address] Urinalysis screen and microscopy, with reflex to culture (07/04/2019 8:56 AM CDT)Only the most recent of3 resultswithin the time period is included. Specimen site Clean catch [facility] Color, UA Dark Yellow [facility] Appearance, UA Clear [facility] Specific gravity, UA 1.027 1.001 - 1.035 [facility] pH, UA 5.0 5.0 - 8.5 [facility] Protein, UA 3+ (A) Negative [facility] Glucose, UA Negative Negative [facility] Ketones, UA Negative Negative [facility] Bilirubin, UA Negative Negative [facility] Blood, UA Moderate (A) Negative [facility] Nitrite, UA Negative Negative [facility] Urobilinogen, UA 4.0 (A) <2.0 [facility] Leukocyte esterase, Negative Negative [facility] Epithelial cells, UA <1 /HPF [facility] WBC, UA 2 (H) 0 - 1 /HPF [facility] RBC, UA 9 (H) 0 - 5 /HPF [facility] Bacteria, UA None seen None seen [facility] Yeast, UA None seen [facility] Yeast with None seen [facility] pseudohyphae, [facility] Hyaline casts, UA 3 /LPF [facility] Specimen Urine Performing Organization Address [facility] Phone Number [facility] DEPARTMENT OF PATHOLOGY AND [address], [place] [phone] [facility] MEDICINE [address] [address] Protein, urine, random (07/04/2019 8:56 AM CDT)Only the most recent of3 results within the time period is included. Pathologist Sig nature Protein, urine random 373 mg/dL [facility] Specimen Urine Performing Organization Address City/State/[facility]code Phone Number [facility] DEPARTMENT OF PATHOLOGY AND [address] [place] [address] [place] [phone] Creatinine level, urine, random (07/04/2019 8:56 AM CDT)Only the most recent of 3 resultswithin the time period is included. Pathologist Sig nature Creatinine, urine, 298 mg/dL [facility] Specimen Urine Performing Organization Address City/[facility] Phone Number [facility] DEPARTMENT OF PATHOLOGY AND [address] [place] [phone] Urine culture (07/04/2019 8:56 AM CDT)Only the most recent of3 resultswithin the time period is included. Pathologist Sig nature Urine culture SEE COMMENTComment: [facility] Bacteriuria screen HOSPITAL negative. Specimen Performing Organization Address City/[facility] Phone Number [facility] DEPARTMENT OF PATHOLOGY AND [address] [place] [phone] [id number] Tacrolimus level, random (03/02/2019 8:54 AM RESISTANCE WELDER) FK506 level <2.0 ng/mL [facility] Comment: HOSPITAL Therapeutic range 5-20 ng/mL for 12 hour trough. The r caleb varies depending on the organ transplanted, time after transplantation and co-administered immunosuppressant therapies. Please use clinical judgment to interpret test result. Test performed using [employer] chemiluminescent microparticle immunoassay for Tacrolimus on the [employer] i System. Specimen Blood Performing Organization Address City/State/Zipcode Phone Number [facility] DEPARTMENT OF PATHOLOGY AND [address] [place] [phone] after 09/08/2018 Insurance Payer Benefit Plan / Subscriber ID Effective Dates Phone Addre ss Type Group MEDICARE MEDICARE PART A xxxxxxxxxxx 1993-Present [facility] [place] AND B
--- OUTSIDE RECORDS SUMMARY | 2019-09-09 14:49 | XMS REPORT | Clinical Summary ---
:1965 Author Organization [facility] Address [address] [place] [address] Care Team Providers Name Role Phone Akin [...] Not on file Results Not on fileafter 09/08/2018 Insurance Payer Benefit Plan / Group Subscriber ID Type Phone [facility] [employer] [facility]IC[facility] xxxxxxxxx
--- OUTSIDE RECORDS SUMMARY | 2019-09-09 14:50 | XMS REPORT ---
:1965 Author Organization [facility] t Address [facility] [place] [address] Care Team Providers Name Role Phone Ernie ALVAREZ M. Primary Care Physician Jean Paul Fabian MD Attending Clinician Ernie ALVAREZ MGeorgina Attending Clinician Payers Payer Name Policy Policy Number Effective Expiration Source Type Date Date MEDICAREMEDICARE PART xxxxxxxxxxx 1993 Victorino Arredondo AND 00:00:00 [place] Condition Condition Condition Status Onset Resolution Last Treating Co mments Source Name Details Category Date Date Treatment Clinician Date Kidney Kidney Disease Active 2017-04 [place] transplant transplant 0-08 Me thodi recipient recipient 00:00: st 00 Right Right Disease Active 2017-04 [place] upper upper 0-08 [facility] quadrant quadrant 00:00: st abdominal abdominal 00 pain pain Disorder Disorder Disease Active 2017-04 [place] liver of liver 0-06 Method i 00:00: st 00 Cholelithi Cholelithi Disease Active 2017-04 [place] asis asis 0-05 Method[facility] 00:00: st 00 Allergies, Adverse Reactions, Alerts This patient has no known allergies or adverse reactions. Social History Social Habit Start Date Stop Date Quantity Comments Source Sex Assigned At [facility] ethodist Alcohol intake 2018-01-18 2018-01-18 Current [facility] thodist 00:00:00 00:00:00 non-drinker of alcohol (finding) Tobacco Comment 2018-01-15 2018-01-15 "Quit 2-3 months Tiffany yee Muslim 00:00:00 00:00:00 ago" Smoking Status Start Date Stop Date Source Former smoker 2018-01-18 00:00:00 2018-01-18 00:00:00 Kavon Trivedi Medications Ordered Filled Start Stop Current Ordering Indication Dosage Frequency Signature Comments Components Source Medication Medication Date Date Medication? Clinician (SIG) Name Name pantoprazol 2017-04 Yes 40mg Q.5D Take 40 mg Jacobson e 0-09 by mouth 2 [facility] (PROTONIX) 10:18: (two) st 40 MG EC 37 times a tablet day. promethazin 2017-04 Yes 50mg Q12H Take 50 mg Jacobson e 0-09 by mouth [facility] (PHENERGAN) 10:18: every 12 st 50 MG 37 (twelve) tablet hours as needed for nausea or vomiting. diltiazem 2017-04 Yes 240mg QD Take 240 Tiffany ston CD 0-09 mg by [facility] (CardIZEM 10:18: mouth st CD) 240 MG 37 daily. 24 hr capsule mycophenola 2017-04 Yes 500mg Q.5D Take 500 [place] 0-09 mg by [facility] (CELLCEPT) 10:18: mouth 2 st 500 mg 37 (two) tablet times a day. valsartan 2017-04 Yes 40mg QD Take 40 mg [place] (DIOVAN) 40 0-09 by mouth Meth jose e MG tablet 10:18: daily. st 37 Procedures Procedure Date / Time Performed Performing Clinician [facility] e COMPLETE BLD COUNT 2019-07-04 09:01:00 Usha Fabian W/AUTO DIFF MAGNESIUM LEVEL 2019-07-04 09:01:00 Usha Fabian PHOSPHORUS LEVEL 2019-07-04 09:01:00 Usha Fabian URIC ACID LEVEL 2019-07-04 09:01:00 Usha Fabian LDH 2019-07-04 09:01:00 Usha Fabian COMPREHENSIVE METABOLIC 2019-07-04 09:01:00 Usha Fabian PANEL CYCLOSPORINE LEVEL, 2019-07-04 09:01:00 Usha Fabian RANDOM ESTIMATED GFR 2019-07-04 09:01:00 Usha Fabian URINE CULTURE 2019-07-04 08:56:00 Usha Fabian URINALYSIS SCREEN AND 2019-07-04 08:56:00 Usha Fabian MICROSCOPY, WITH REFLEX TO CULTURE PROTEIN, URINE, RANDOM 2019-07-04 08:56:00 Usha Fabian CREATININE LEVEL, URINE, 2019-07-04 08:56:00 Usha Fabian Muslim RANDOM URINE CULTURE 2019-03-02 08:54:00 Juan [facility] COMPREHENSIVE METABOLIC 2019-03-02 08:54:00 Juan Klein PANEL HC COMPLETE BLD COUNT 2019-03-02 08:54:00 Juan Klein Muslim W/AUTO DIFF MAGNESIUM LEVEL 2019-03-02 08:54:00 Juan Klein [facility] PHOSPHORUS LEVEL 2019-03-02 08:54:00 Juan Klein ethodist URIC ACID LEVEL 2019-03-02 08:54:00 Juan Klein [facility] LDH 2019-03-02 08:54:00 Juan Klein [facility] URINALYSIS SCREEN AND 2019-03-02 08:54:00 Juan Klein MICROSCOPY, WITH REFLEX TO CULTURE CREATININE LEVEL, URINE, 2019-03-02 08:54:00 Juan Klein RANDOM PROTEIN, URINE, RANDOM 2019-03-02 08:54:00 Juan Klein [id number] TACROLIMUS LEVEL, 2019-03-02 08:54:00 Juan Kleinist RANDOM ESTIMATED GFR 2019-03-02 08:54:00 Juan Klein [facility] CYCLOSPORINE LEVEL, 2019-03-02 08:54:00 Juan Klein Muslim RANDOM URINE CULTURE 2019-02-21 07:56:00 Juan Klein [facility] HC COMPLETE BLD COUNT 2019-02-21 07:56:00 Juan Klein Muslim W/AUTO DIFF MAGNESIUM LEVEL 2019-02-21 07:56:00 Juan Klein [facility] PHOSPHORUS LEVEL 2019-02-21 07:56:00 Juan Klein ethodist URIC ACID LEVEL 2019-02-21 07:56:00 Juan Klein [facility]odist LDH 2019-02-21 07:56:00 Juan Klein [facility] URINALYSIS SCREEN AND 2019-02-21 07:56:00 Juan Klein Muslim MICROSCOPY, WITH REFLEX TO CULTURE CREATININE LEVEL, URINE, 2019-02-21 07:56:00 Juan Klein [place] Muslim RANDOM PROTEIN, URINE, RANDOM 2019-02-21 07:56:00 Juan Klein Muslim COMPREHENSIVE METABOLIC 2019-02-21 07:56:00 Juan Klein Muslim PANEL CYCLOSPORINE LEVEL, 2019-02-21 07:56:00 Juan Klein Muslim RANDOM ESTIMATED GFR 2019-02-21 07:56:00 Juan Klein [facility]odist Plan of Care Planned Activity Planned Date Details Comments Source Future Scheduled 2019-11-12 INFLUENZA VACCINE [place] [facility] 00:00:00 [code = INFLUENZA VACCINE] Future Scheduled 2016-02-28 COLONOSCOPY SCREENING [place] [facility] Test 00:00:00 [code = COLONOSCOPY SCREENING] Future Scheduled 2016-02-28 SHINGLES VACCINES [place] [facility] Test 00:00:00 (#1) [code = SHINGLES VACCINES (#1)] Encounters Start End Encounter Admission Attending Care Care Encounter Source Date/Time Date/Time Type Type Clinicians Facility Department ID 2019-07-04 2019-07-04 Outpatient Usha FABIAN [facility] [id number] [place] 00:00:00 00:00:[address] Results Test Description Test Time Test Comments Results Result Comments Source Cyclosporine level, random 2019-07-04 13:56:52 Test Item Value Reference Range Interpretation Comme nts Cyclosporine (test code = 140 ng/mL Un less administered by continuous IV drip, 37660-7) collect a purpl e top tube just before the next dose. Ther apeutic range of approximately 1 00-500 varies mainly with type of transpl ant,use of other immunosuppressi ve agents, and evidence of toxicity or rej ection. Test performed using [employer] t chemiluminescen tmicroparticle immunoassay for Cyclosporin e on the CLOTH CUTTING MACHINE OPERATOR i System. Kavon [facility]Com[facility] metabolic [id number] 11:43:07 Test Item Value Reference Range Interpretation Comments Sodium (test code = 136 135- 148 mEq/L 2951-2) Potassium (test code = 4.3 3.5- 5.0 mEq/L 2823-3) Chloride (test code = 99 98- 112 mEq/L 2075-0) CO2 (test code = 8-9) 24 24- 31 mEq/L Anion gap (test code = 13@ANIO 7- 15 mEq/L 21219-8) BUN (test code = 3094-0) 18 mg/dL 6-20 Creatinine (test code = 1.31 mg/dL 0.7-1.2 H 2160-0) Glucose (test code = 108 mg/dL 65-99 H 2345-7) Calcium (test code = 10.5 mg/dL 8.3-10.2 H 42536-5) Protein (test code = 8.2 g/dL 6.3-8.3 -[place] n 2885-2) 4.6-7.0 g/dL1 week 4.4-7 .6 g/dL7 months-1y ear 5.1-7 .3 g/dL1-2 years 5.6-7 .5 g/dL>3 years 6.0-8 .0 g/aR04-947 6.3-8 .3 g/dL Albumin (test code = 3.8 g/dL 3.5-5 1751-7) A/G ratio (test code = 0.9 0.7-3.8 1759-0) Alkaline phosphatase 73 U/L 40-129 (test code = 6768-6) AST (test code = 1920-8) 20 U/L 10-50 ALT (test code = 1742-6) 29 U/L 5-50 Total bilirubin (test 0.6 mg/dL 0-1.2 code = 1974-2) Lab Interpretation (test Abnormal code = 94548-8) Kavon [id number] 11:43:07 Test Item Value Reference Range Interpretation Comments LDH (test code = 56267-1) 167 U/L 87-225 Kavon MethodistMagnesium [id number] 11:43:07 Test Item Value Reference Range Interpretation Comments Magnesium (test code = 93491-4) 2.1 mg/dL 1.6-2.6 Jacobson MethodistPhosphorus [id number] 11:43:07 Test Item Value Reference Range Interpretation Comments Phosphorus (test code = 2777-1) 2.0 mg/dL 2.4-4.5 L Lab Interpretation (test code = Abnormal 95722-0) Jacobson MethodistUric acid [id number] 11:43:07 Test Item Value Reference Range Interpretation Comments Uric acid (test code = 3084-1) 5.8 mg/dL 3.4-7 Kavon MethodistEstimated [id number] 11:43:07 Test Item Value Reference Range Interpretation Comments Estimated GFR (test 71 mL/min/1.73 m2 Caterg orOpenRent Units code = 5488) InterpretationG 1 >=90 Normal or highG2 60-89 Mildly zxtxcheanU5f 45-59 Mildly to mode rately xtptdjbgcV9u 30-44 Moderately to severely decreasedG4 15-29 Severely decre asedG5 <15 Kidn ey failureThe eGFR was calculated maryuri varela the Chronic Kidney Disease Epidemiology Co llaboration (CKD-EPI) equat ion. Interpretation is based on recommendations of the National Kidney Foundation-Kidn ey Disease Outcomes Qualit y Initiative (NKF-KDOQI) pub lished in 2014. Jacobson MethodistProtein, urine, [id number] 11:11:54 Test Item Value Reference Range Interpretation Comments Protein, urine random (test code = 373 mg/dL 2888-6) Jacobson MethodistCreatinine level, urine, [id number] 11:00:13 Test Item Value Reference Range Interpretation Comments Creatinine, urine, random (test 298 mg/dL code = 11576-2) Jacobson MethodistUrine [id number] 10:16:27 Test Item Value Reference Range Interpretation Comments Urine culture (test SEE COMMENT Bacteriu deandre screen code = 4113097) negative. Jacobson MethodistUrinalysis screen and microscopy, with reflex to culture 2019-07-04 10:16:25 Test Item Value Reference Range Interpretation Comments Specimen site (test code = Clean catch 8946423) Color, UA (test code = 5778-6) Dark Yellow Appearance, UA (test code = Clear 5767-9) Specific gravity, UA (test code = 1.027 1.001-1.035 5811-5) pH, UA (test code = 5803-2) 5.0 5.0-8.5 Protein, UA (test code = 98950-3) 3+ Negative A Glucose, UA (test code = 21781-5) Negative Negative Ketones, UA (test code = 2514-8) Negative Negative Bilirubin, UA (test code = Negative Negative 5770-3) Blood, UA (test code = 5794-3) Moderate Negative A Nitrite, UA (test code = 5802-4) Negative Negative Urobilinogen, UA (test code = 4.0 <2.0 A 34055-0) Leukocyte esterase, UA (test code Negative Negative = 5799-2) Epithelial cells, UA (test code = <1 /HPF 5787-7) WBC, UA (test code = 5821-4) 2 0- 1 /HPF H RBC, UA (test code = 59104-9) 9 0- 5 /HPF H Bacteria, UA (test code = None seen None seen 62129-5) Yeast, UA (test code = 72094-7) None seen Yeast with pseudohyphae, UA (test None seen code = 38650-0) Hyaline casts, UA (test code = 3 /LPF 5796-8) Lab Interpretation (test code = Abnormal 88795-9) [facility] with platelet and [id number] 10:02:15 Test Item Value Reference Range Interpretation Comments WBC (test code = 13621-1) 7.79 4.50- 11.00 k/uL RBC (test code = 69473-3) 4.73 m/uL 4.4-6 HGB (test code = 718-7) 15.8 g/dL 14-18 HCT (test code = 4544-3) 45.4 % 41-51 MCV (test code = 787-2) 96.0 fL 82-100 MCH (test code = 785-6) 33.4 pg 27-34 MCHC (test code = 786-4) 34.8 g/dL 31-37 RDW - SD (test code = 39.6 fL 37-55 54787-9) MPV (test code = 07080-5) 9.3 fL 8.8-13.2 Platelet count (test code 283 150- 400 k/uL = 02843-1) Nucleated RBC (test code 0.00 /100 WBC = 18830-2) Neutrophils (test code = 60.4 % 39-69 04849-9) Lymphocytes (test code = 27.1 % 25-45 61189-4) Monocytes (test code = 10.4 % 0-10 H 77949-3) Eosinophils (test code = 1.0 % 0-5 89539-2) Basophils (test code = 0.6 % 0-1 52324-7) Immature granulocytes 0.5 % 0-1 "Immat ure (test code = 97069-3) granul ocytes" (promyelocytes, myelocytes, metamyelocytes) Lab Interpretation (test Abnormal code = 48714-3) Kavon TrivediFK506 Tacrolimus level, [id number] 15:50:23 Test Item Value Reference Range Interpretation Comments FK506 level (test <2.0 ng/mL Therapeuti c range 5-20 ng/mL code = 58618-6) for 12 hour trough. The range varies dependin g on the organ transplanted, t geovanny after transplantation and co-administered immunosuppressa nt therapies. Please use clin ical judgment to interpret te st result.Test performed using [employer] chemi luminescent microparticle i mmunoassay for Tacrolimus on t Wrnch CLOTH CUTTING MACHINE OPERATOR i System. Kavon Trivedi
[2019-09-09] MEDS ORDERED: HYDROCODONE/APAP 10/325 TAB ONE (16:48)
[2019-09-09] MEDS ORDERED: ENOXAPARIN 100 MG/ML SYR SQ ONE (18:07)
[2019-09-09] MEDS ORDERED: MORPHINE 2 MG/ML SYR ONE (18:07)
[2019-09-09] MEDS ORDERED: ONDANSETRON 4 MG/2 ML VIAL ONE (18:07)
--- NOTE | 2019-09-09 18:21 | RAD REPORT ---
EXAM DESCRIPTION: [facility] 5:59 pm CLINICAL HISTORY: left leg pain and swelling. COMPARISON: None. FINDINGS: Echogenic material is present within the left popliteal vein. The vein is partially compre ssible with diminished blood flow compatible with acute thrombus Left common femoral, superficial femoral, l and posterior tibial veins are compressible and demonstr ate augmentation. Doppler demonstrates good flow. IMPRESSION: Acute thrombus within the left popliteal vein
[2019-09-09 18:34] LABS: Absolute Lymphocytes (CBC) 3.1 K/uL (0.7-4.9); Hematocrit 37.7 % (39.6-49.0); Lymphocytes % 26.8 % (15.3-44.8); MPV 7.3 fL (7.6-11.3); RBC Red Blood Cell Count 3.95 M/uL (4.33-5.43)
[2019-09-09 18:35] LABS: Protime INR 0.97
--- NOTE | 2019-09-09 18:41 | P.HP ---
Certification for Inpatient Patient admitted to: Observation With expected LOS: <2 Midnights Patient will require the following post-hospital care: None Practitioner: I am a practitioner with admitting privileges, knowledge of patient current condition, hospital course, and medical plan of care. Services: Services provided to patient in accordance with Admission requirements found in Title 42 Section 412.3 of the Code of Federal Regulations Patient History Date of Service: 09/10/19 Reason for admission: Pain and swelling in the left lower extremity History of Present Illness: 54-year-old male with a past medical history of kidney transplant on anti rejection medications came to ER with swelling of left lower extremity which started a few days ago and was progressively worsening. Denies any chest pain or shortness of breath, no fever or chills Denies any recent travel Allergies No Known Allergies Allergy (Verified 09/09/19 21:27) Home medications list reviewed: Yes Home Medications: Mycophenolate Mofetil [Cellcept] 500 mg PO DAILY 11/26/18 cycloSPORINE [Sandimmune] 25 mg PO BID 11/26/18 cycloSPORINE [Sandimmune] 100 mg PO BID 11/26/18 dilTIAZem HCl [Diltiazem 24Hr ER (LA)] 240 mg PO DAILY 11/26/18 Levofloxacin [Levaquin] 500 mg PO DAILY #7 tablet 11/28/18 - Past Medical/Surgical History Diabetic: No Past Medical History: Reviewed- Non-Contributory -: History of renal transplant-17 years ago -: Hypertension -: Tobacco abuse -: pancreatitis Past Surgical History: Reviewed- Non-Contributory -: kidney transplant 17 yrs ago -: cholecystectomy Psychosocial/ Personal History: He is engaged, has 2 children, 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 [employer] - Family History Mother -: Hypertension, Diabetes Father -: Hypertension, Diabetes - Social History Smoking Status: Current some day smoker Alcohol use: Yes CD- Drugs: No Caffeine use: Yes Review of Systems 10-point ROS is otherwise unremarkable Physical Examination - Vital Signs Temperature: 98.6 F Blood Pressure: 134/93 Pulse: 88 Respirations: 18 - Physical Exam General: Alert, In no apparent distress, Oriented x3 HEENT: Atraumatic, Normocephalic Neck: Supple Respiratory: Clear to auscultation bilaterally, Normal air movement Cardiovascular: Normal pulses, Regular rate/rhythm Capillary refill: <2 Seconds Gastrointestinal: Soft and benign, W/out hepatosplenomegaly Musculoskeletal: No clubbing, Swelling, Erythema, Tenderness, Warmth, Other (L eft lower extremity swelling +, tenderness present) Integumentary: Tenderness/swelling, Erythema Neurological: Normal speech, Normal strength at 5/5 x4 extr Lymphatics: No axilla or inguinal lymphadenopathy Rectal: Deferred - Studies Imagings Data: : Acute thrombus within the left popliteal vein Assessment and Plan - Problems (Diagnosis) (1) Acute deep vein thrombosis of left popliteal vein Current Visit: Yes Status: Acute (2) History of renal transplantation Current Visit: No Status: Chronic (3) Hypertension Onset Date: 12/03/15 Current Visit: No Status: Chronic Qualifiers: (4) Tobacco abuse Current Visit: No Status: Chronic - Advance Directives Does patient have a Living Will: No Does patient have a Durable POA for Healthcare: No Physician Review Additional Text: Acute thrombosis of left popliteal vein H/o Right Leg Cellulitis history for kidney transplant Hypertension Smoking Plan monitor under telemetry Ultrasound showed: Acute thrombus within the left popliteal vein Will start on Lovenox After getting a renal parameters Discussed in detail with the patient regarding treatment modalities available Tried to arrange to kidney transplant Center at [phone] Will retry in a.m. Continue home medications and titrate as needed Pain control GI/DVT prophylaxis Advised smoking cessation Time Spent Managing Pts Care (In Minutes): 40
[2019-09-09] MEDS ORDERED: ACETAMINOPHEN 500 MG TAB PO PRN (18:44)
[2019-09-09] MEDS ORDERED: ONDANSETRON 4 MG/2 ML VIAL IV PRN (18:44)
--- NOTE | 2019-09-09 18:45 | RAD REPORT ---
EXAM DESCRIPTION: [place] Single View09/09/2019 6:18 pm CLINICAL HISTORY: Cough COMPARISON: June 2019 FINDINGS: The lungs appear clear of acute infiltrate. The heart is normal size IMPRESSION: No acute abnormalities displayed
[2019-09-09 18:58] LABS: ALT/SGPT 40 U/L (12-78); AST/SGOT 29 U/L (15-37); Albumin 3.3 g/dL (3.4-5.0); Alkaline Phosphatase 85 U/L (45-117); BUN Blood Urea Nitrogen 21 mg/dL (7-18); Bicarbonate 24 mmol/L (21-32); Bilirubin Direct < 0.1 mg/dL (0-0.2); Bilirubin Total 0.3 mg/dL (0.2-1.0); Glucose Level 99 mg/dL (74-106); NT PRO-BNP 44 pg/mL (<125); Potassium 4.4 mmol/L (3.5-5.1); Protein, Total 7.9 g/dL (6.4-8.2); Sodium Level 140 mmol/L (136-145); Troponin (Emerg Dept Use Only) < 0.02 ng/mL (0.0-0.045)
[2019-09-09] MEDS: CYCLOSPORINE 25 MG PO SCH (21:00)
[2019-09-09] MEDS: ENOXAPARIN 100 MG/ML SYR SQ SCH (21:00)
[2019-09-09] MEDS: CYCLOSPORINE 100 MG PO SCH (21:00)
[2019-09-09 22:31] VITALS: BMI 31.5
[2019-09-09] MEDS: MORPHINE 2 MG/ML SYR IV PRN (22:32)
[2019-09-09 22:36] LABS: Urine Appearance CLEAR; Urine Bilirubin NEGATIVE (NEG); Urine Blood 2+ (NEG); Urine Color YELLOW; Urine Glucose NEGATIVE (NEG); Urine Protein 3+ (NEG); Urine Specific Gravity 1.025 (1.005-1.030); Urine Urobilinogen 0.2 mg/dL (0.2-1.0)
[2019-09-09 22:44] LABS: Urine Microscopic Reflex ORDER UMIC
[2019-09-09 23:03] LABS: Urine Bacteria <20 /HPF (NONE SEEN); Urine Culture Reflex Order NOT NEEDED
[2019-09-10] MEDS: HYDROCODONE/APAP 7.5/325 MG TAB PO PRN ×4 (00:10→20:29)
[2019-09-10] MEDS: MORPHINE 2 MG/ML SYR IV PRN ×3 (04:33→17:34)
[2019-09-10 06:15] LABS: Albumin 2.9 g/dL (3.4-5.0); Bilirubin Total 0.4 mg/dL (0.2-1.0); Magnesium 2.1 mg/dL (1.8-2.4); Phosphorus 2.8 mg/dL (2.5-4.9); Potassium 4.3 mmol/L (3.5-5.1); Protein, Total 7.4 g/dL (6.4-8.2)
[2019-09-10 06:34] LABS: Absolute Lymphocytes (CBC) 2.8 K/uL (0.7-4.9); Basophils % 1.2 % (0-1.3); Hematocrit 35.1 % (39.6-49.0); Lymphocytes % 35.8 % (15.3-44.8); MPV 7.9 fL (7.6-11.3)
[2019-09-10] MEDS: CYCLOSPORINE 100 MG PO SCH (08:27)
[2019-09-10] MEDS: CYCLOSPORINE 25 MG PO SCH (08:27)
[2019-09-10] MEDS: ENOXAPARIN 100 MG/ML SYR SQ SCH ×2 (08:27→20:28)
[2019-09-10] MEDS: DILTIAZEM HCL 120 MG SR CAP PO SCH (08:28)
[2019-09-10] MEDS ORDERED: HOME MED 1 EA UNK (Mycophenolate Mofetil [Cellcept] 500 MG) PO SCH (09:00)
--- NOTE | 2019-09-10 10:40 | P.PN ---
Subjective Date of Service: 09/10/19 Chief Complaint: Pain and swelling in the left lower extremity Subjective: No new changes, Improving Review of Systems 10-point ROS is otherwise unremarkable Physical Examination - Vital Signs Temperature: 97.3 F Blood Pressure: 139/78 Pulse: 73 Respirations: 20 Pulse Ox (%): 97 - Physical Exam General: Alert, In no apparent distress HEENT: Atraumatic, Normocephalic Neck: Supple Respiratory: Clear to auscultation bilaterally, Normal air movement Cardiovascular: Normal pulses, Regular rate/rhythm, Normal S1 S2 Capillary refill: <2 Seconds Gastrointestinal: Soft and benign, W/out hepatosplenomegaly Musculoskeletal: Swelling, Erythema, Tenderness, Warmth Integumentary: Erythema Neurological: Normal speech, Normal strength at 5/5 x4 extr Lymphatics: No axilla or inguinal lymphadenopathy Rectal: Deferred - Studies Laboratory Data (last 24 hrs) 09/09/19 18:20: PT 11.5, INR 0.97 09/09/19 18:20: WBC 11.5 H D, Hgb 12.6 L, Hct 37.7 L, Plt Count 365 D 09/09/19 18:20: Sodium 140, Potassium 4.4, BUN 21 H, Creatinine 1.36 H, Glucose 99, Magnesium 2.0, Total Bilirubin 0.3, AST 29, ALT 40, Alkaline Phosphatase 85 Laboratory Last Values WBC 11.5 K/uL (4.3-10.9) H D 09/09/19 18:20 RBC 3.95 M/uL (4.33-5.43) L 09/09/19 18:20 Hgb 12.6 g/dL (13.6-17.9) L 09/09/19 18:20 Hct 37.7 % (39.6-49.0) L 09/09/19 18:20 MCV 95.6 fL (80-100) 09/09/19 18:20 MCH 32.0 pg (27.0-35.0) 09/09/19 18:20 MCHC 33.5 g/dL (32.0-36.0) 09/09/19 18:20 RDW 12.4 % (12.1-15.2) 09/09/19 18:20 Plt Count 365 K/uL (152-406) D 09/09/19 18:20 MPV 7.3 fL (7.6-11.3) L 09/09/19 18:20 Neutrophils % 62.1 % (41.7-73.7) 09/09/19 18:20 Lymphocytes % 26.8 % (15.3-44.8) 09/09/19 18:20 Monocytes % 7.6 % (3.3-12.3) 09/09/19 18:20 Eosinophils % 2.5 % (0-4.4) 09/09/19 18:20 Basophils % 1.0 % (0-1.3) 09/09/19 18:20 Absolute Neutrophils 7.1 K/uL (1.8-8.0) 09/09/19 18:20 Absolute Lymphocytes 3.1 K/uL (0.7-4.9) 09/09/19 18:20 Absolute Monocytes 0.9 K/uL (0.1-1.3) 09/09/19 18:20 Absolute Eosinophils 0.3 K/uL (0-0.5) 09/09/19 18:20 Absolute Basophils 0.1 K/uL (0-0.5) 09/09/19 18:20 PT 11.5 SECONDS (9.5-12.5) 09/09/19 18:20 INR 0.97 09/09/19 18:20 Sodium 140 mmol/L (136-145) 09/09/19 18:20 Potassium 4.4 mmol/L (3.5-5.1) 09/09/19 18:20 Chloride 110 mmol/L (98-107) H 09/09/19 18:20 Carbon Dioxide 24 mmol/L (21-32) 09/09/19 18:20 BUN 21 mg/dL (7-18) H 09/09/19 18:20 Creatinine 1.36 mg/dL (0.55-1.3) H 09/09/19 18:20 Estimated GFR 66 mL/min (=/>90) L 09/09/19 18:20 Glucose 99 mg/dL (74-106) 09/09/19 18:20 Calcium 9.6 mg/dL (8.5-10.1) 09/09/19 18:20 Magnesium 2.0 mg/dL (1.8-2.4) 09/09/19 18:20 Total Bilirubin 0.3 mg/dL (0.2-1.0) 09/09/19 18:20 Direct Bilirubin < 0.1 mg/dL (0-0.2) 09/09/19 18:20 AST 29 U/L (15-37) 09/09/19 18:20 ALT 40 U/L (12-78) 09/09/19 18:20 Alkaline Phosphatase 85 U/L (45-117) 09/09/19 18:20 Rapid Troponin I < 0.02 ng/mL (0.0-0.045) 09/09/19 18:20 NT-Pro-B Natriuret Pep 44 pg/mL (<125) 09/09/19 18:20 Serum Total Protein 7.9 g/dL (6.4-8.2) 09/09/19 18:20 Albumin 3.3 g/dL (3.4-5.0) L 09/09/19 18:20 Globulin 4.6 g/dL (2.3-3.5) H 09/09/19 18:20 Albumin/Globulin Ratio 0.7 (1.1-1.8) L 09/09/19 18:20 TSH 1.320 uIU/mL (0.360-3.740) 09/09/19 18:20 Assessment & Plan - Problems (Diagnosis) (1) Acute deep vein thrombosis of left popliteal vein Current Visit: Yes Status: Acute (2) History of renal transplantation Current Visit: No Status: Chronic (3) Hypertension Onset Date: 12/03/15 Current Visit: No Status: Chronic Qualifiers: (4) Tobacco abuse Current Visit: No Status: Chronic Physician Review Additional Text: Acute thrombosis of left popliteal vein Hematuria history for kidney transplant Hypertension Smoking Recent history of right leg cellulitis Plan monitor under telemetry Ultrasound showed: Acute thrombus within the left popliteal vein Will start on Lovenox After getting a renal parameters Discussed in detail with the patient regarding treatment modalities available Continue home medications and titrate as needed Nephrology consult Monitor closely for any gross hematuria Pain control GI/DVT prophylaxis Advised smoking cessation Disposition Possible Dc in a.m. on anticoagulation Time Spent Managing Pts Care (In Minutes): 35
--- NOTE | 2019-09-10 12:54 | EKG ---
Test Date: 2019-09-09 Test Time: 18:18:21 Evaporator Operator: TERRELL MEASUREMENT RESULTS: Intervals: Rate: 84 W[place]: 152 QRSD: 100 QT: 370 QTc: 437 [place]: P: 26 WY: 152 QRS: 13 T: 68 INTERPRETIVE STATEMENTS: Sinus rhythm with occasional premature ventricular complexes Otherwise normal ECG Electronically Signed On 09-10-19 12:54:14 CDT by Sundar Roa
--- NOTE | 2019-09-10 14:50 | P.CNS ---
Date of Consult: 09/10/19 Reason for Consult: AUDIE , kidney transplant Chief Complaint: Pain and swelling in the left lower extremity History of Present Illness: A 54 Y/o man with PMHx HTN, Kidney transplant ~20yrs ago from donor on cellcept and closporine , steroid free, proteinuria on valsartan pt presentd for Lt leg swelling pt had rt leg cellulitis , started on ABx ~7-10 day , yesterday noticed rt leg swelling and pain r was 1.3 and improved to 1.0 , pt noticed to have microscopic hematuria , has similar incident in the past and resolved as per pt , he laso stated he had persistent proteinuria denied NSAID inrtake denied chest pain, palpitation ,nauseas vomiting or diarrhea A/P AUDIE on CKD with chronic proteinuria due to ARB and dehydration resolved cont to hold valsartan Kidney transplant cr improved now , near normal will resume home dose of cyclosprone and cellcept acute DVT can be started on cumadin vs Eliquis HTN controlled can resume valsartan as an OP microscopic hematuria W/U can be done as no OP to 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 with 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 duplicating unit , might need CT abd/pelvis with contrast if persisit Discussed with Pt and at bedside total time spent 50min Allergies No Known Allergies Allergy (Verified 09/09/19 21:27) Home Medications: Mycophenolate Mofetil [Cellcept] 500 mg PO DAILY 11/26/18 cycloSPORINE [Sandimmune] 25 mg PO BID 11/26/18 cycloSPORINE [Sandimmune] 100 mg PO BID 11/26/18 dilTIAZem HCl [Diltiazem 24Hr ER (LA)] 240 mg PO DAILY 11/26/18 Levofloxacin [Levaquin] 500 mg PO DAILY #7 tablet 11/28/18 - Past Medical/Surgical History Diabetic: No -: History of renal transplant-17 years ago -: Hypertension -: Tobacco abuse -: pancreatitis -: kidney transplant 17 yrs ago -: cholecystectomy Psychosocial/ Personal History: He is engaged, has 2 children, 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 [employer] - Family History Mother Medical History: Hypertension, Diabetes Father Medical History: Hypertension, Diabetes - Social History Smoking Status: Unknown if ever smoked Alcohol use: Yes CD- Drugs: No Caffeine use: Yes Place of Residence: Home Physical Examination Temp Pulse Resp BP Pulse Ox 97.3 F 74 18 129/81 96 09/10/19 12:00 09/10/19 12:00 09/10/19 13:46 09/10/19 12:00 09/10/19 13:46 General: In no apparent distress, Oriented x3 HEENT: Atraumatic, Normocephalic Neck: Supple, Without JVD or thyroid abnormality Respiratory: Clear to auscultation bilaterally, Normal air movement Cardiovascular: No edema, Regular rate/rhythm, Normal S1 S2, No gallops, No rubs Gastrointestinal: Normal bowel sounds, Soft and benign Musculoskeletal: Other (Lt leg swelling ) Laboratory Data (last 24 hrs) 09/09/19 18:20: PT 11.5, INR 0.97 09/09/19 18:20: WBC 11.5 H D, Hgb 12.6 L, Hct 37.7 L, Plt Count 365 D 09/09/19 18:20: Sodium 140, Potassium 4.4, BUN 21 H, Creatinine 1.36 H, Glucose 99, Magnesium 2.0, Total Bilirubin 0.3, AST 29, ALT 40, Alkaline Phosphatase 85
[2019-09-10] MEDS: HOME MED 1 EA UNK (Mycophenolate Mofetil [Cellcept] 500 MG) PO SCH (20:30)
[2019-09-11] MEDS: HYDROCODONE/APAP 7.5/325 MG TAB PO PRN ×2 (05:04→12:08)
[2019-09-11] MEDS: HOME MED 1 EA UNK (Mycophenolate Mofetil [Cellcept] 500 MG) PO SCH (08:06)
[2019-09-11] MEDS: ENOXAPARIN 100 MG/ML SYR SQ SCH (08:07)
[2019-09-11] MEDS: DILTIAZEM HCL 120 MG SR CAP PO SCH (08:07)
[2019-09-11] MEDS: MORPHINE 2 MG/ML SYR IV PRN (08:08)
[2019-09-11] MEDS ORDERED: CYCLOSPORINE 100 MG PO SCH (09:00)
[2019-09-11] MEDS ORDERED: CYCLOSPORINE 25 MG PO SCH (09:00)
[2019-09-11 09:45] VITALS: TEMP 97.4
[2019-09-11 09:48] VITALS: O2SAT 94
--- NOTE | 2019-09-11 10:47 | P.PN ---
Subjective Date of Service: 09/11/19 Chief Complaint: Pain and swelling in the left lower extremity Subjective A 54 Y/o man with PMHx HTN, Kidney transplant ~20yrs ago from donor on cellcept and closporine , steroid free, proteinuria on valsartan pt presentd for Lt leg swelling pt had rt leg cellulitis , started on ABx ~7-10 day , yesterday noticed rt leg swelling and pain r was 1.3 and improved to 1.0 , pt noticed to have microscopic hematuria , has similar incident in the past and resolved as per pt , he laso stated he had persistent proteinuria today no overnight events stable VS cleared for discharge from nephrology point of view to follow with his medical assistant per diem in 1-2 wks Physical exam general: AAOX3, NAD Neck; Supple, No elevated JVD hear: RRR, normal S1,2 no murmur or rub Chest: CTAB, no rlaes or wheezes Abdomen: Soft , Nt Extremities Lt leg swelling with mild tenderness A/P AUDIE on CKD with chronic proteinuria due to ARB and dehydration resolved cont to hold valsartan , can resume after discharge Kidney transplant cr improved now , near normal will resume home dose of cyclosprone and cellcept acute DVT plan to start on Eliquis HTN controlled can resume valsartan as an OP microscopic hematuria W/U can be done as no OP to follow with his transplant medical assistant per diem , might need CT abd/pelvis with contrast if persisit Discussed with Pt and at bedside total time spent 35min Physical Examination - Vital Signs Temperature: 97.4 F Blood Pressure: 135/75 Pulse: 70 Respirations: 20 Pulse Ox (%): 96
[2019-09-11 13:48] VITALS: BP 130/71
--- NOTE | 2019-09-11 23:06 | DS ---
Date of Discharge: 09/11/2019 Consultants: Dr. Resendiz with Nephrology. Admitting Diagnoses: 1.Acute deep venous thrombosis of the left popliteal vein. 2.Status post renal transplant. 3.Essential hypertension. 4.Nicotine dependence. Cigarette smoking. 5.Acute kidney injury. 6.Obesity, BMI 31.5. Discharge Diagnoses: 1.Acute deep venous thrombosis in the left popliteal vein, improving. 2.Acute kidney injury, creatinine back to normal. 3.Status post renal transplant. Patient to follow up with his Transplant Team in [place]. 4.Essential hypertension, stable. 5.Nicotine dependence with cigarette smoking, counseled. 6.Obesity, BMI of 31. Hospital Course: Patient is a 54-year-old male with past medical history of hypertension, kidney tra nsplant, comes in with left lower extremity swelling for several days. No shortness of breath, fever , or chills. Patient was found to have acute DVT in the left popliteal vein. Patient is a kidney tr ansplant patient, is on immunosuppressants. Patient had minimally elevated white blood cell count, w hich improved. He did have some hematuria as well. His kidney function was elevated at 1.36. Patie nt usually follows with Dr. Klein at the Transplant Center in [place], the #[phone], unable t o be reach due to the weekend. Overall, patient did well. He was started on IV fluids, started on a nticoagulation with Lovenox. Patient will then be switched to Eliquis for oral anticoagulation. His pain and swelling improved. He was able to ambulate without any difficulty. Patient's kidney funct ion improved and he was then cleared for discharge. Patient is to follow up with primary care physic merry in 2-3 days. He does not have one, needs to establish care with PCP. He is to follow up with [facility] primary field contact person, with the Transplant Team, Dr. Klein in [place] in 2 weeks. He is to [facility] care with a forestry technical officer in 2-4 weeks for hypercoagulable workup and to manage his DVT and retur n to ER for worsening condition. Diet: Heart healthy. Activity: As tolerated. Patient understands the risks and benefits of oral anticoagulation, understand there is risk of bleed ing, but the benefits are to prevent this blood clot from spreading further and he voiced understandi ng. Patient needs to be on a minimum of 4-6 months of anticoagulation. May need longer anticoagulat ion depending on his hypercoagulable workup, which can be done once the acute phase of this DVT has r esolved as an outpatient by either his PCP or Hematology. Physical Examination: General: Awake, alert, oriented x3. Obese male, no acute distress. CV: S1, S2. No murmurs. Respiratory: Moving air well bilaterally. No wheezing. Gastrointestinal: Abdomen is soft, nontender, nondistended. Positive bowel sounds. Extremities: No clubbing, cyanosis. Patient has edema of the left lower extremity. Neurologic: Nonfocal. SA/MODL Voice ID: [id number] Report ID: [id number]
--- NOTE | 2019-09-12 17:14 | EDPHYS ---
Physician Documentation [facility] Name: Shoaib Freitas Jr Age: 54 yrs Sex: Male : 1965 Arrival Date: 09/09/2019 Time: 14:47 Bed 7 Private MD: SUNDAR Physician Vidal Sandra HPI: 09/08 16:04 This 54 yrs old Black Male presents to ER via Ambulatory with complaints of Leg Pain, zachery Leg Swelling. 16:04 The patient presents with decreased range of motion, pain, swelling, tenderness. The zachery complaints affect the posterior aspect of left knee. Context: The problem was sustained at an unknown site. Onset: The symptoms/episode began/occurred 3 day(s) ago. Modifying factors: The symptoms are alleviated by elevating leg, the symptoms are aggravated by movement, weight bearing. Associated signs and symptoms: The patient has no apparent associated signs or symptoms. Severity of symptoms: At their worst the symptoms were mild, moderate, in the emergency department the symptoms are unchanged. The patient has not experienced similar symptoms in the past. Historical: - Allergies: 15:04 No Known Allergies; ph - Home Meds: 20:13 diltiazem HCl 240 mg Oral cpER 1 cap once daily for Hypertension [Active]; prednisone 5 lp1 mg Oral tab once daily [Active]; valsartan 40 mg Oral tab 1 tab once daily for Hypertension [Active]; - PMHx: 15:04 Gall Stones; history of dialysis; Hypertension; kidney transplant; Pancreatitis; ph - PSHx: 15:04 Cholecystectomy; ph - Immunization history:: Adult Immunizations unknown. - Social history:: Smoking status: Patient denies any tobacco usage or history of. - Family history:: not pertinent. ROS: 16:04 Constitutional: Negative for fever, chills, and weight loss, Eyes: Negative for injury, zachery pain, redness, and discharge, ENT: Negative for injury, pain, and discharge, Neck: Negative for injury, pain, and swelling, Cardiovascular: Negative for chest pain, palpitations, and edema, Respiratory: Negative for shortness of breath, cough, wheezing, and pleuritic chest pain, Abdomen/GI: Negative for abdominal pain, nausea, vomiting, diarrhea, and constipation, Back: Negative for injury and pain, : Negative for injury, bleeding, discharge, and swelling, Skin: Negative for injury, rash, and discoloration, Neuro: Negative for headache, weakness, numbness, tingling, and seizure, Psych: Negative for depression, anxiety, suicide ideation, homicidal ideation, and hallucinations, Allergy/Immunology: Negative for hives, rash, and allergies, Endocrine: Negative for neck swelling, polydipsia, polyuria, polyphagia, and marked weight changes, Hematologic/Lymphatic: Negative for swollen nodes, abnormal bleeding, and unusual bruising. 16:04 MS/extremity: Positive for decreased range of motion, pain, swelling, of the posterior aspect of left knee. Exam: 16:04 Constitutional: This is a well developed, well nourished patient who is awake, alert, zachery and in no acute distress. Head/Face: Normocephalic, atraumatic. Eyes: Pupils equal round and reactive to light, extra-ocular motions intact. Lids and lashes normal. Conjunctiva and sclera are non-icteric and not injected. Cornea within normal limits. Periorbital areas with no swelling, redness, or edema. ENT: Nares patent. No nasal discharge, no septal abnormalities noted. Tympanic membranes are normal and external auditory canals are clear. Oropharynx with no redness, swelling, or masses, exudates, or evidence of obstruction, uvula midline. Mucous membranes moist. Neck: Trachea midline, no thyromegaly or masses palpated, and no cervical lymphadenopathy. Supple, full range of motion without nuchal rigidity, or vertebral point tenderness. No Meningismus. Chest/axilla: Normal chest wall appearance and motion. Nontender with no deformity. No lesions are appreciated. Cardiovascular: Regular rate and rhythm with a normal S1 and S2. No gallops, murmurs, or rubs. Normal PMI, no JVD. No pulse deficits. Respiratory: Lungs have equal breath sounds bilaterally, clear to auscultation and percussion. No rales, rhonchi or wheezes noted. No increased work of breathing, no retractions or nasal flaring. Abdomen/GI: Soft, non-tender, with normal bowel sounds. No distension or tympany. No guarding or rebound. No evidence of tenderness throughout. Back: No spinal tenderness. No costovertebral tenderness. Full range of motion. Male : Normal genitalia with no discharge or lesions. Skin: Warm, dry with normal turgor. Normal color with no rashes, no lesions, and no evidence of cellulitis. Neuro: Awake and alert, GCS 15, oriented to person, place, time, and situation. Cranial nerves II-XII grossly intact. Motor strength 5/5 in all extremities. Sensory grossly intact. Cerebellar exam normal. Normal gait. Psych: Awake, alert, with orientation to person, place and time. Behavior, mood, and affect are within normal limits. 16:04 Musculoskeletal/extremity: Extremities: noted in the posterior aspect of left knee: decreased ROM, pain, swelling, tenderness, ROM: limited active range of motion due to pain, limited passive range of motion due to pain, Circulation is intact in all extremities. Sensation intact. Compartment Syndrome exam of affected extremity: is normal. Weight bearing: able to fully bear weight, DVT Exam: negative Homans' sign noted on exam, no appreciated bluish discoloration, no erythema, no increased warmth, pain, swelling, tenderness. 18:30 ECG was reviewed by the Attending Physician. [facility] Vital Signs: 15:02 BP 134 / 93; Pulse 95; Resp 18; Temp 98.6; Pulse Ox 98% on R/A; Weight 101.6 kg; Height ph 5 ft. 11 in. (180.34 cm); Pain 8/10; 16:00 BP 126 / 81; Pulse 90; Resp 17; Pulse Ox 98% ; bp 18:00 BP 136 / 87; Pulse 85; Resp 16; Pulse Ox 98% ; bp 20:00 BP 153 / 90; Pulse 81; Resp 18; Temp 98.2; Pulse Ox 97% on R/A; lp1 20:29 BP 139 / 87; Pulse 81; Resp 18; Pulse Ox 99% on R/A; lp1 15:02 Body Mass Index 31.24 (101.60 kg, 180.34 cm) ph MDM: 14:59 Patient medically screened. [facility] 16:07 Data reviewed: vital signs, nurses notes, radiologic studies, doppler. [facility] 16:07 Differential diagnosis: dislocation, closed fracture. Data interpreted: Cardiac [facility] monitor: rate is 95 beats/min, rhythm is normal sinus rhythm, regular, Pulse oximetry: on room air is 98 %. Counseling: I had a detailed discussion with the patient and/or guardian regarding: the historical points, exam findings, and any diagnostic results supporting the discharge/admit diagnosis, radiology results. 16:35 Medication response: norco, good relief. zachery 17:30 Test interpretation: by ED physician or midlevel provider: ECG, plain radiologic zachery studies. ED course: dr justin to admit, left popliteal dvt, no cp , no sob. 09/08 17:28 Order name: Basic Metabolic Panel; Complete Time: 19:01 [facility] 09/08 17:28 Order name: CBC with Diff; Complete Time: 18:44 [facility] 09/08 17:28 Order name: LFT's; Complete Time: 19:01 [facility] 09/08 17:28 Order name: Magnesium; Complete Time: 19:01 [facility] 09/08 17:28 Order name: NT PRO-BNP; Complete Time: 19:01 [facility] 09/08 17:28 Order name: PT-INR; Complete Time: 18:44 [facility] 09/08 17:28 Order name: Troponin (emerg Dept Use Only); Complete Time: 19:01 [facility] 09/08 18:47 Order name: Thyroid Stimulating Hormone [facility] 09/08 18:47 Order name: CBC with Automated Diff ED[facility] 09/08 18:47 Order name: CBC with Automated Diff [facility] 09/08 18:47 Order name: Comprehensive Metabolic Panel [facility] 09/08 18:47 Order name: Comprehensive Metabolic Panel [facility] 09/08 18:47 Order name: Lipid Profile [facility] 09/08 18:47 Order name: Lipid Profile [facility] 09/08 16:04 Order name: US Extremity Venous Unilateral Ltd; Complete Time: 18:28 [facility] 09/08 17:28 Order name: XRAY Chest (1 view); Complete Time: 18:52 [facility] 09/08 17:28 Order name: EKG; Complete Time: 17:29 zachery 09/08 17:28 Order name: Cardiac monitoring; Complete Time: 17:28 [facility] 09/08 17:28 Order name: EKG - Nurse/Tech; Complete Time: 18:41 [place] 09/08 17:28 Order name: IV Saline Lock; Complete Time: 18:41 [facility] 09/08 18:47 Order name: Heart Healthy EDMS 09/08 18:47 Order name: Magnesium [facility] 09/08 18:47 Order name: Magnesium [facility] 09/08 18:47 Order name: Phosphorus [facility] 09/08 18:47 Order name: Phosphorus [facility] 09/08 18:50 Order name: Urinalysis ED[facility] 09/08 17: Order name: Labs collected and sent; Complete Time: 18:41 [facility] 09/08 17: Order name: O2 Per Protocol; Complete Time: : [facility] 09/08 17: Order name: O2 Sat Monitoring; Complete Time: : [facility] EC:30 Rate is 84 beats/min. Rhythm is regular. QRS [place] is Normal. [place] interval is normal. QRS zachery interval is normal. QT interval is normal. No Q waves. T waves are Normal. No ST changes noted. Clinical impression: Normal ECG and No evidence of ischemia. Interpreted by me. Reviewed by me. Administered Medications: 16:30 Drug: [place] 10 mg-325 mg 1 tabs Route: PO; bp 18:00 Drug: morphine 2 mg Route: IVP; Site: right upper arm; bp 19:45 Follow up: Response: No adverse reaction lp1 18:00 Drug: Zofran (Ondansetron) 4 mg Route: IVP; Site: right upper arm; bp 19:45 Follow up: Response: No adverse reaction lp1 20:00 Drug: Lovenox 100 mg Route: Sub-Q; Site: right lower abdomen; lp1 20:37 Follow up: Response: No adverse reaction lp1 Disposition: 09/09/19 17:34 Hospitalization ordered by Collins Justin for Observation. Preliminary diagnosis are Acute embolism and thrombosis of other specified deep vein of left lower extremity, Kidney transplant status, Unspecified kidney failure - insufficency. - Bed requested for Telemetry/MedSurg (observation). - Status is Observation. lp1 - Condition is Stable. - Problem is new. - Symptoms are unchanged. Signatures: Dispatcher [employer] [facility] Vidal Sandra MD MD cha Pena, Laura, RN RN lp1 Sara Dumont RN RN Vale Muhammad, PRINCESS RN Mic Cardozo RN RN bp Corrections: (The following items were deleted from the chart) 19:04 17:34 Hospitalization Ordered by Collins Justin MD for Observation. Preliminary zachery diagnosis is Acute embolism and thrombosis of other specified deep vein of left lower extremity; Kidney transplant status. Bed requested for Telemetry/MedSurg (observation). Status is Observation. Condition is Stable. Problem is new. Symptoms are unchanged. zachery 19:54 19:04 09/09/2019 17:34 Hospitalization Ordered by Collins Justin MD for Observation. cg Preliminary diagnosis is Acute embolism and thrombosis of other specified deep vein of left lower extremity; Kidney transplant status; Unspecified kidney failure - insufficency. Bed requested for Telemetry/MedSurg (observation). Status is Observation. Condition is Stable. Problem is new. Symptoms are unchanged. zachery 21:13 19:54 09/09/2019 17:34 Hospitalization Ordered by Collins Justin MD for Observation. lp1 Preliminary diagnosis is Acute embolism and thrombosis of other specified deep vein of left lower extremity; Kidney transplant status; Unspecified kidney failure - insufficency. Bed requested for Telemetry/MedSurg (observation). Status is Observation. Condition is Stable. Problem is new. Symptoms are unchanged. cg
--- NOTE | 2019-09-12 17:14 | ER ---
Nurse's Notes [facility] Name: Shoaib Freitas Jr Age: 54 yrs Sex: Male : 1965 Arrival Date: 09/09/2019 Time: 14:47 Bed 7 Private MD: Diagnosis: Acute embolism and thrombosis of other specified deep vein of left lower extremity;Kidney transplant status;Unspecified kidney failure-insufficency Presentation: 09/08 15:02 Chief complaint: Patient states: Area of swelling and pain to posterior L knee, small ph nodule palpable, denies fever or SOB. Coronavirus screen: Patient denies a cough. Patient denies shortness of breath or difficulty breathing. Patient denies measured and/or subjective temperature greater than 100.4F prior to today's visit. Patient denies travel on a cruise ship or to a country the [facility] currently lists as an affected area. Patient denies contact with known and/or suspected case of COVID-19. Ebola Screen: No symptoms or risks identified at this time. Initial Sepsis Screen: Does the patient meet any 2 criteria? No. Patient's initial sepsis screen is negative. Does the patient have a suspected source of infection? No. Patient's initial sepsis screen is negative. Risk Assessment: Do you want to hurt yourself or someone else? Patient reports no desire to harm self or others. Onset of symptoms was September 09, 2019. 15:02 Method Of Arrival: Ambulatory ph 15:02 Acuity: COBY 4 ph Triage Assessment: 15:10 General: Appears in no apparent distress. comfortable, Behavior is cooperative, bp appropriate for age, anxious. Pain: Complains of pain in posterior aspect of left knee. EENT: No deficits noted. Neuro: No deficits noted. Cardiovascular: No deficits noted. Respiratory: No deficits noted. GI: No signs and/or symptoms were reported involving the gastrointestinal system. : No signs and/or symptoms were reported regarding the genitourinary system. Derm: No deficits noted. Musculoskeletal: Reports pain in posterior aspect of left knee. Historical: - Allergies: 15:04 No Known Allergies; ph - Home Meds: 20:13 diltiazem HCl 240 mg Oral cpER 1 cap once daily for Hypertension [Active]; prednisone 5 lp1 mg Oral tab once daily [Active]; valsartan 40 mg Oral tab 1 tab once daily for Hypertension [Active]; - PMHx: 15:04 Gall Stones; history of dialysis; Hypertension; kidney transplant; Pancreatitis; ph - PSHx: 15:04 Cholecystectomy; ph - Immunization history:: Adult Immunizations unknown. - Social history:: Smoking status: Patient denies any tobacco usage or history of. - Family history:: not pertinent. Screenin:10 Abuse screen: Denies threats or abuse. Denies injuries from another. Nutritional bp screening: No deficits noted. Tuberculosis screening: No symptoms or risk factors identified. Fall Risk None identified. Assessment: 15:10 General: SEE TRIAGE NOTE. bp 16:00 Reassessment: ERP AT B/S FOR PT EVAL. bp 16:30 Reassessment: U/S PENDING. bp 18:00 Reassessment: ADMIT IN PROCESS. LOVENOX ON HOLD PENDING KIDNEY FX RESULTS. bp 20:00 Reassessment: Patient appears in no apparent distress at this time. Patient and/or lp1 family updated on plan of care and expected duration. Pain level reassessed. Patient is alert, oriented x 3, equal unlabored respirations, skin warm/dry/pink. Patient aware of pending admission; given sandwich, chips and grape juice at this time. 20:20 Reassessment: Attempted to call report at this time, nurse unavailable. lp1 20:35 Reassessment: Nurse unavailable for report. lp1 Vital Signs: 15:02 BP 134 / 93; Pulse 95; Resp 18; Temp 98.6; Pulse Ox 98% on R/A; Weight 101.6 kg; Height ph 5 ft. 11 in. (180.34 cm); Pain 8/10; 16:00 BP 126 / 81; Pulse 90; Resp 17; Pulse Ox 98% ; bp 18:00 BP 136 / 87; Pulse 85; Resp 16; Pulse Ox 98% ; bp 20:00 BP 153 / 90; Pulse 81; Resp 18; Temp 98.2; Pulse Ox 97% on R/A; lp1 20:29 BP 139 / 87; Pulse 81; Resp 18; Pulse Ox 99% on R/A; lp1 15:02 Body Mass Index 31.24 (101.60 kg, 180.34 cm) ED Course: 14:47 Patient arrived in ED. ag5 14:59 Vidal Sandra MD is Attending Physician. zachery 15:03 Triage completed. ph 15:04 Arm band placed on Patient placed in an exam room, on a stretcher. ph 15:09 Thalia Velasquez, RN is Primary Nurse. jl7 15:10 Patient has correct armband on for positive identification. Bed in low position. Call bp light in reach. Side rails up X2. 17:32 Collins Ramírez MD is Hospitalizing Provider. zachery 17:48 Missed attempt(s): 24 gauge in right hand. Bleeding controlled, band aid applied, ph catheter tip intact. 17:57 US Extremity Venous Unilateral Ltd In Process Unspecified. EDMS 18:00 Inserted saline lock: 22 gauge in right upper arm, using aseptic technique. Blood bp collected. 18:20 XRAY Chest (1 view) In Process Unspecified. EDMS 18:45 EKG done, by ED staff, reviewed by Vidal Sandra MD. em1 20:00 No provider procedures requiring assistance completed. Patient admitted, IV remains in lp1 place. Administered Medications: 16:30 Drug: [place] 10 mg-325 mg 1 tabs Route: PO; bp 18:00 Drug: morphine 2 mg Route: IVP; Site: right upper arm; bp 19:45 Follow up: Response: No adverse reaction lp1 18:00 Drug: Zofran (Ondansetron) 4 mg Route: IVP; Site: right upper arm; bp 19:45 Follow up: Response: No adverse reaction lp1 20:00 Drug: Lovenox 100 mg Route: Sub-Q; Site: right lower abdomen; lp1 20:37 Follow up: Response: No adverse reaction lp1 Outcome: 17:34 Decision to Hospitalize by Provider. zachery 20:00 Condition: stable lp1 20:00 Instructed on the need for admit. 21:01 Admitted to Med/surg via wheelchair, room 222, with chart, Report called to PRINCESS Randle lp1 21:13 Patient left the ED. lp1 Signatures: Dispatcher [employer] EDNC Vidal Sandra MD MD cha Martinez, Eric em1 Genesis Hernández, RN RN lp1 Sara Duomnt RN RN ph Thalia Velasquez, RN RN jl7 Mic Cardozo RN RN Jay Russell ag5 Corrections: (The following items were deleted from the chart) 15:05 15:02 Acuity: COBY 3 ph ph
== END 2019-09-11 13:58 | disposition home or self-care (01) ==
LOC: ER 14:45 → ERHOLD 18:44 → 2ND 21:02
PROVIDERS: ADMIT Family Medicine; ATTEND Family Medicine
DX: I82.432 Acute embolism and thrombosis of left popliteal vein (principal); N17.9 Acute kidney failure, unspecified; I12.9 Hypertensive chronic kidney disease with stage 1 through stage 4 chronic kidney disease, or unspecified chronic kidney disease; N18.9 Chronic kidney disease, unspecified; E86.0 Dehydration; R31.29 Other microscopic hematuria; E66.9 Obesity, unspecified; F17.210 Nicotine dependence, cigarettes, uncomplicated; Z68.31 Body mass index [BMI] 31.0-31.9, adult; Z94.0 Kidney transplant status
CPT/HCPCS: 93005; 85025 ×2; 80048; 36415 ×2; 83735 ×2; 84100; 85610; 80061; 80076; 84443; 84484; 80053; 83880; 71045; 93971; 94760 ×4; 96375; 96372; 96374; 99285; J1650 ×4; J2270 ×6; J2405 ×2; G0378 ×4; 81003; 81015

== ENCOUNTER 2019-09-16 15:30 | Inpatient (IN) | payer OTHER ==
--- OUTSIDE RECORDS SUMMARY | 2019-09-16 15:34 | XMS REPORT | Clinical Summary ---
:1965 Author Organization [facility] Address [address] [place] [address] Care Team Providers Name Role Phone Akin [...] Not on file Results Not on fileafter 09/15/2018 Insurance Payer Benefit Plan / Group Subscriber ID Type Phone [facility] [employer] [facility]
--- OUTSIDE RECORDS SUMMARY | 2019-09-16 15:34 | XMS REPORT | Continuity of Care Document ---
:1965 Author Organization [facility] t Address [address] [place] [address] Care Team Providers Name Role Phone Akin Green MD Primary Care Physician Unavailable Chase ALVAREZ Attending Clinician Satish Klein MD Attending Clinician Payers Payer Name Policy Policy Number Effective Expiration Source Type Date Date MEDICAREMEDICARE PART xxxxxxxxxxx 1993 Victorino Arredondo AND 00:00:00 [facility] Bxxxxxxxxxxx/04/[place] [facility] Condition Condition Condition Status Onset Resolution Last Treating Co mments Source Name Details Category Date Date Treatment Clinician Date Kidney Kidney Disease Active 2017-04 [place] transplant transplant 0-08 [place] [facility] recipient recipient 00:00: st 00 Right Right Disease Active 2017-04 [place] upper upper 0-08 [facility] quadrant quadrant 00:00: st abdominal abdominal 00 pain pain 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 Family History Family Member Diagnosis Comments Start Date Stop Date Source Natural father Hypertension [facility] Natural mother Heart disease [facility] Natural mother Hypertension [facility] Natural sister Diabetes [facility] Social History Social Habit Start Date Stop Date Quantity Comments Source Sex Assigned At [facility] Alcohol intake 2018-01-18 2018-01-18 [facility] non-drinker of alcohol (finding) Tobacco Comment 2018-01-15 2018-01-15 "Quit 2-3 months Tiffany Trivedi 00:00:00 00:00:00 ago" Smoking Status Start Date Stop Date Source Former smoker 2018-01-18 00:00:00 2018-01-18 00:00:00 Kavon Trivedi Current some day 2016-03-26 00:00:00 [facility] smoker Center Medications Ordered Filled Start Stop Current Ordering [...] / Time Performed Performing Clinician [facility] e COMPLETE BLD COUNT 2019-07-04 09:01:00 Jean Paul Fabian on [facility] W/AUTO DIFF MAGNESIUM LEVEL 2019-07-04 09:01:00 Jean Paul Fabian [facility] PHOSPHORUS LEVEL 2019-07-04 09:01:00 Jean Paul Fabian [facility] URIC ACID LEVEL 2019-07-04 09:01:00 Jean Paul Fabian [facility] LDH 2019-07-04 09:01:00 Jean Paul Fabian [facility] COMPREHENSIVE METABOLIC 2019-07-04 09:01:00 Chase, Jean Paul Tiffany ston [facility] PANEL CYCLOSPORINE LEVEL, 2019-07-04 09:01:00 ChaseJean Paul Kavon [facility] RANDOM ESTIMATED GFR 2019-07-04 09:01:00 Chase Jean Pauljanet Jacobson [facility] URINE CULTURE 2019-07-04 08:56:00 Chase Jean Paul Kavon [facility] URINALYSIS SCREEN AND 2019-07-04 08:56:00 Jean Paul Fabian [facility] MICROSCOPY, WITH REFLEX TO CULTURE PROTEIN, URINE, RANDOM 2019-07-04 08:56:00 Jean Paul Fabian [facility] CREATININE LEVEL, URINE, 2019-07-04 08:56:00 Jean Paul Fabian [facility] RANDOM URINE CULTURE 2019-03-02 08:54:00 Juan Klein [facility] COMPREHENSIVE METABOLIC 2019-03-02 08:54:00 Juan Klein [facility] PANEL HC COMPLETE BLD COUNT 2019-03-02 08:54:00 Juan Klein [facility] W/AUTO DIFF MAGNESIUM LEVEL 2019-03-02 08:54:00 Juan Klein [facility] PHOSPHORUS LEVEL 2019-03-02 08:54:00 Juan Klein [facility] URIC ACID LEVEL 2019-03-02 08:54:00 Juan Klein [facility] LDH 2019-03-02 08:54:00 Juan Klein [facility] URINALYSIS SCREEN AND 2019-03-02 08:54:00 Juan Klein [facility] MICROSCOPY, WITH REFLEX TO CULTURE CREATININE LEVEL, URINE, 2019-03-02 08:54:00 Juan Klein [facility] RANDOM PROTEIN, URINE, RANDOM 2019-03-02 08:54:00 Juan Klein [facility] [id number] TACROLIMUS LEVEL, 2019-03-02 08:54:00 Juan Klein [facility] RANDOM ESTIMATED GFR 2019-03-02 08:54:00 Juan Klein [facility] CYCLOSPORINE LEVEL, 2019-03-02 08:54:00 Juan Klein [facility] RANDOM URINE CULTURE 2019-02-21 07:56:00 Juan Klein [facility] HC COMPLETE BLD COUNT 2019-02-21 07:56:00 Juan Klein W/AUTO DIFF MAGNESIUM LEVEL 2019-02-21 07:56:00 Juan Klein [facility] PHOSPHORUS LEVEL 2019-02-21 07:56:00 Juan Klein [facility]ist URIC ACID LEVEL 2019-02-21 07:56:00 Juan Klein [facility] LDH 2019-02-21 07:56:00 Juan Klein [facility] URINALYSIS SCREEN AND 2019-02-21 07:56:00 Juan Klein [facility] MICROSCOPY, WITH REFLEX TO CULTURE CREATININE LEVEL, URINE, 2019-02-21 07:56:00 Juan Klein [facility] RANDOM PROTEIN, URINE, RANDOM 2019-02-21 07:56:00 Juan Klein [facility] COMPREHENSIVE METABOLIC 2019-02-21 07:56:00 Juan Klein PANEL CYCLOSPORINE LEVEL, 2019-02-21 07:56:00 Juan Klein [facility] RANDOM ESTIMATED GFR 2019-02-21 07:56:00 Juan Klein [facility] Plan of Care Planned Activity Planned Date Details Comments Source Future Scheduled 2019-11-12 INFLUENZA VACCINE [place] [facility] Test 00:00:00 [code = INFLUENZA VACCINE] Future Scheduled 2016-02-28 COLONOSCOPY SCREENING Victorino stinson [facility] Test 00:00:00 [code = COLONOSCOPY SCREENING] Future Scheduled 2016-02-28 SHINGLES VACCINES [place] [facility] Test 00:00:00 (#1) [code = SHINGLES VACCINES (#1)] Encounters Start End Encounter Admission Attending Care Care Encounter Source Date/Time Date/Time Type Type Clinicians Facility Department ID 2019-07-04 2019-07-04 Outpatient Usha FABIAN [facility] [id number] [place] 00:00:00 00:00:[address] Results Test Description Test Time Test Comments Results Result Comments Source Cyclosporine level, random 2019-07-04 13:56:52 Test Item Value Reference Range Interpretation Comme nts Cyclosporine (test code = 140 ng/mL Un less administered by continuous IV drip, 21319-5) collect a purpl e top tube just before the next dose. Ther apeutic range of approximately 1 00-500 varies mainly with type of transpl ant,use of other immunosuppressi ve agents, and evidence of toxicity or rej ection. Test performed using [employer] t chemiluminescen tmicroparticle immunoassay for Cyclosporin e on the AIRCRAFT POWERTRAIN REPAIRER i System. [place] [facility] [id number] 11:43:07 Test Item Value Reference Range Interpretation Comments Sodium (test code = 136 135- 148 mEq/L 2951-2) Potassium (test code = 4.3 3.5- 5.0 mEq/L 2823-3) Chloride (test code = 99 98- 112 mEq/L 2075-0) CO2 (test code = 2027-9) 24 24- 31 mEq/L Anion gap (test code = 13@ANIO 7- 15 mEq/L 75185-7) BUN (test code = 3094-0) 18 mg/dL 6-20 Creatinine (test code = 1.31 mg/dL 0.7-1.2 H 2160-0) Glucose (test code = 108 mg/dL 65-99 H 2345-7) Calcium (test code = 10.5 mg/dL 8.3-10.2 H 96865-1) Protein (test code = 8.2 g/dL 6.3-8.3 -[place] n 2885-2) 4.6-7.0 g/dL1 week 4.4-7 .6 g/dL7 months-1y ear 5.1-7 .3 g/dL1-2 years 5.6-7 .5 g/dL>3 years 6.0-8 .0 g/mW88-971 6.3-8 .3 g/dL Albumin (test code = 3.8 g/dL 3.5-5 1751-7) A/G ratio (test code = 0.9 0.7-3.8 1759-0) Alkaline phosphatase 73 U/L 40-129 (test code = 6768-6) AST (test code = 1920-8) 20 U/L 10-50 ALT (test code = 1742-6) 29 U/L 5-50 Total bilirubin (test 0.6 mg/dL 0-1.2 code = 1974-2) Lab Interpretation (test Abnormal code = 94171-0) Kavon [id number] 11:43:07 Test Item Value Reference Range Interpretation Comments LDH (test code = 89093-6) 167 U/L 87-225 Kavon MethodistMagnesium [id number] 11:43:07 Test Item Value Reference Range Interpretation Comments Magnesium (test code = 61343-3) 2.1 mg/dL 1.6-2.6 Jacobson MethodistPhosphorus [id number] 11:43:07 Test Item Value Reference Range Interpretation Comments Phosphorus (test code = 2777-1) 2.0 mg/dL 2.4-4.5 L Lab Interpretation (test code = Abnormal 48359-7) Jacobson MethodistUric acid [id number] 11:43:07 Test Item Value Reference Range Interpretation Comments Uric acid (test code = 3084-1) 5.8 mg/dL 3.4-7 Jacobson MethodistEstimated [id number] 11:43:07 Test Item Value Reference Range Interpretation Comments Estimated GFR (test 71 mL/min/1.73 m2 Caterg ory Units code = 5488) InterpretationG 1 >=90 Normal or highG2 60-89 Mildly ibozfiaazE2c 45-59 Mildly to mode rately ecalnkyldA1t 30-44 Moderately to severely decreasedG4 15-29 Severely decre asedG5 <15 Kidn ey failureThe eGFR was calculated maryuri varela the Chronic Kidney Disease Epidemiology Co llaboration (CKD-EPI) equat ion. Interpretation is based on recommendations of the National Kidney Foundation-Kidn ey Disease Outcomes Qualit y Initiative (NKF-KDOQI) pub lished in 2014. Kavon MethodistProtein, urine, [id number] 11:11:54 Test Item Value Reference Range Interpretation Comments Protein, urine random (test code = 373 mg/dL 2888-6) Jacobson MethodistCreatinine level, urine, [id number] 11:00:13 Test Item Value Reference Range Interpretation Comments Creatinine, urine, random (test 298 mg/dL code = 32128-8) Jacobson MethodistUrine [id number] 10:16:27 Test Item Value Reference Range Interpretation Comments Urine culture (test SEE COMMENT Bacteriu deandre screen code = 4966206) negative. Kavon MethodistUrinalysis screen and microscopy, with reflex to culture 2019-07-04 10:16:25 Test Item Value Reference Range Interpretation Comments Specimen site (test code = Clean catch 2640618) Color, UA (test code = 5778-6) Dark Yellow Appearance, UA (test code = Clear 5767-9) Specific gravity, UA (test code = 1.027 1.001-1.035 5811-5) pH, UA (test code = 5803-2) 5.0 5.0-8.5 Protein, UA (test code = 42255-0) 3+ Negative A Glucose, UA (test code = 42266-3) Negative Negative Ketones, UA (test code = 2514-8) Negative Negative Bilirubin, UA (test code = Negative Negative 5770-3) Blood, UA (test code = 5794-3) Moderate Negative A Nitrite, UA (test code = 5802-4) Negative Negative Urobilinogen, UA (test code = 4.0 <2.0 A 35304-3) Leukocyte esterase, UA (test code Negative Negative = 5799-2) Epithelial cells, UA (test code = <1 /HPF 5787-7) WBC, UA (test code = 5821-4) 2 0- 1 /HPF H RBC, UA (test code = 52287-7) 9 0- 5 /HPF H Bacteria, UA (test code = None seen None seen 22542-6) Yeast, UA (test code = 69926-6) None seen Yeast with pseudohyphae, UA (test None seen code = 49473-6) Hyaline casts, UA (test code = 3 /LPF 5796-8) Lab Interpretation (test code = Abnormal 31448-4) [place] MethodistCBC with platelet and [id number] 10:02:15 Test Item Value Reference Range Interpretation Comments WBC (test code = 93777-2) 7.79 4.50- 11.00 k/uL RBC (test code = 29767-4) 4.73 m/uL 4.4-6 HGB (test code = 718-7) 15.8 g/dL 14-18 HCT (test code = 4544-3) 45.4 % 41-51 MCV (test code = 787-2) 96.0 fL 82-100 MCH (test code = 785-6) 33.4 pg 27-34 MCHC (test code = 786-4) 34.8 g/dL 31-37 RDW - SD (test code = 39.6 fL 37-55 52284-7) MPV (test code = 00587-5) 9.3 fL 8.8-13.2 Platelet count (test code 283 150- 400 k/uL = 57220-7) Nucleated RBC (test code 0.00 /100 WBC = 12980-1) Neutrophils (test code = 60.4 % 39-69 83565-6) Lymphocytes (test code = 27.1 % 25-45 31533-6) Monocytes (test code = 10.4 % 0-10 H 56953-5) Eosinophils (test code = 1.0 % 0-5 27216-7) Basophils (test code = 0.6 % 0-1 84271-9) Immature granulocytes 0.5 % 0-1 "Immat ure (test code = 23209-6) granul ocytes" (promyelocytes, myelocytes, metamyelocytes) Lab Interpretation (test Abnormal code = 79503-6) Kavon TrivediFK506 Tacrolimus level, [id number] 15:50:23 Test Item Value Reference Range Interpretation Comments FK506 level (test <2.0 ng/mL Therapeuti c range 5-20 ng/mL code = 37665-3) for 12 hour trough. The range varies dependin g on the organ transplanted, t geovanny after transplantation and co-administered immunosuppressa nt therapies. Please use clin ical judgment to interpret te st result.Test performed using [employer] chemi luminescent microparticle i mmunoassay for Tacrolimus on t [employer] AIR[employer]FT P[employer]TR[employer] REPAIRER i System. Kavon Trivedi
--- OUTSIDE RECORDS SUMMARY | 2019-09-16 15:34 | XMS REPORT | Clinical Summary ---
:1965 Author Organization [facility] Address [address] [place] [address] Care Team Providers Name Role Phone Satish [...] Specialty Care Team Description 07/04/2019 Lab Lab Jean Paul Stone MD Kidney transplant status (Primary Dx); Anemia in chron [...] (HCC); Disorder of mariela sphorus metabolism after 09/15/2018 Social History Tobacco Use Types Packs/Day Years [...] 8:54 Resu lts for this RANDOM AM [employer] procedure are i n the results section. ESTIMATED GFR Routine 03/02/2019 8:54 Results fo r this AM [employer] procedure are i n the results section. [id number] TACROLIMUS Routine 03/02/2019 8:54 Kidney replaced by R esults for this LEVEL, RANDOM [employer] transplant procedure are in Essential the results hypertension, section. malignant Proteinuria, unspecified type Anemia of chronic renal failure, unspecified CKD stage Disorder of phosphorus metabolism Hypermagnesemia Chronic kidney disease, stage III (moderate) (HCC) PROTEIN, URINE, RANDOM Routine 03/02/2019 8:54 Kidney replace d by Results for this [employer] transplant procedure are in Essential the results hypertension, section. malignant Proteinuria, unspecified type Anemia of chronic renal failure, unspecified CKD stage Disorder of phosphorus metabolism Hypermagnesemia Chronic kidney disease, stage III (moderate) (HCC) CREATININE LEVEL, Routine 03/02/2019 8:54 Kidney replaced by Results for this URINE, RANDOM [facility] [employer] transplant procedure are in Essential the results hypertension, section. malignant Proteinuria, unspecified type Anemia of chronic renal failure, unspecified CKD stage Disorder of phosphorus metabolism Hypermagnesemia Chronic kidney disease, stage III (moderate) (HCC) URINALYSIS SCREEN AND Routine 03/02/2019 8:54 Kidney replaced by Results for this MICROSCOPY, WITH AM [employer] transplant procedure are in REFLEX TO CULTURE Essential the result s hypertension, section. malignant Proteinuria, unspecified type Anemia of chronic renal failure, unspecified CKD stage Disorder of phosphorus metabolism Hypermagnesemia Chronic kidney disease, stage III (moderate) (HCC) LDH Routine 03/02/2019 8:54 Kidney replaced by Resul ts for this [employer] transplant procedure are in Essential the results hypertension, section. malignant Proteinuria, unspecified type Anemia of chronic renal failure, unspecified CKD stage Disorder of phosphorus metabolism Hypermagnesemia Chronic kidney disease, stage III (moderate) (HCC) URIC ACID LEVEL Routine 03/02/2019 8:54 Kidney replaced by Re sults for this [employer] transplant procedure are in Essential the results hypertension, section. malignant Proteinuria, unspecified type Anemia of chronic renal failure, unspecified CKD stage Disorder of phosphorus metabolism Hypermagnesemia Chronic kidney disease, stage III (moderate) (HCC) PHOSPHORUS LEVEL Routine 03/02/2019 8:54 Kidney replaced by R esults for this [facility] [employer] transplant procedure are in Essential the results hypertension, section. malignant Proteinuria, unspecified type Anemia of chronic renal failure, unspecified CKD stage Disorder of phosphorus metabolism Hypermagnesemia Chronic kidney disease, stage III (moderate) (HCC) MAGNESIUM LEVEL Routine 03/02/2019 8:54 Kidney replaced by Re sults for this [employer] transplant procedure are in Essential the results hypertension, section. malignant Proteinuria, unspecified type Anemia of chronic renal failure, unspecified CKD stage Disorder of phosphorus metabolism Hypermagnesemia Chronic kidney disease, stage III (moderate) (HCC) HC COMPLETE BLD COUNT Routine 03/02/2019 8:54 Kidney replaced by Results for this W/AUTO DIFF [employer] transplant procedure are in Essential the results hypertension, section. malignant Proteinuria, unspecified type Anemia of chronic renal failure, unspecified CKD stage Disorder of phosphorus metabolism Hypermagnesemia Chronic kidney disease, stage III (moderate) (HCC) COMPREHENSIVE Routine 03/02/2019 8:54 Kidney replaced by Resu lts for this METABOLIC PANEL [employer] transplant procedure are in Essential the results hypertension, section. malignant Proteinuria, unspecified type Anemia of chronic renal failure, unspecified CKD stage Disorder of phosphorus metabolism Hypermagnesemia Chronic kidney disease, stage III (moderate) (HCC) URINE CULTURE Routine 03/02/2019 8:54 Results fo r this [employer] procedure are i n the results section. ESTIMATED GFR Routine 02/21/2019 7:56 Results fo r this [employer] procedure are i n the results section. CYCLOSPORINE LEVEL, Routine 02/21/2019 7:56 Kidney replaced b y Results for this RANDOM [employer] transplant procedure are in Anemia of chronic the result s renal failure, section. unspecified CKD stage Hypermagnesemia Proteinuria, unspecified type Essential hypertension, malignant Chronic kidney disease, stage III (moderate) (HCC) Disorder of phosphorus metabolism COMPREHENSIVE Routine 02/21/2019 7:56 Kidney replaced by Resu lts for this METABOLIC PANEL [employer] transplant procedure are in Anemia of chronic the result s renal failure, section. unspecified CKD stage Hypermagnesemia Proteinuria, unspecified type Essential hypertension, malignant Chronic kidney disease, stage III (moderate) (HCC) Disorder of phosphorus metabolism PROTEIN, URINE, RANDOM Routine 02/21/2019 7:56 Kidney replace d by Results for this [employer] transplant procedure are in Anemia of chronic the result s renal failure, section. unspecified CKD stage Hypermagnesemia Proteinuria, unspecified type Essential hypertension, malignant Chronic kidney disease, stage III (moderate) (HCC) Disorder of phosphorus metabolism CREATININE LEVEL, Routine 02/21/2019 7:56 Kidney replaced by Results for this URINE, RANDOM [employer] transplant procedure are in Anemia of chronic the result s renal failure, section. unspecified CKD stage Hypermagnesemia Proteinuria, unspecified type Essential hypertension, malignant Chronic kidney disease, stage III (moderate) (HCC) Disorder of phosphorus metabolism URINALYSIS SCREEN AND Routine 02/21/2019 7:56 Kidney replaced by Results for this MICROSCOPY, WITH [employer] transplant procedure are in REFLEX TO CULTURE Anemia of chronic the r esults renal failure, section. unspecified CKD stage Hypermagnesemia Proteinuria, unspecified type Essential hypertension, malignant Chronic kidney disease, stage III (moderate) (HCC) Disorder of phosphorus metabolism LDH Routine 02/21/2019 7:56 Kidney replaced by Resul ts for this [employer] transplant procedure are in Anemia of chronic the result s renal failure, section. unspecified CKD stage Hypermagnesemia Proteinuria, unspecified type Essential hypertension, malignant Chronic kidney disease, stage III (moderate) (HCC) Disorder of phosphorus metabolism URIC ACID LEVEL Routine 02/21/2019 7:56 Kidney replaced by Re sults for this [employer]ATE transplant procedure are in Anemia of chronic the result s renal failure, section. unspecified CKD stage Hypermagnesemia Proteinuria, unspecified type Essential hypertension, malignant Chronic kidney disease, stage III (moderate) (HCC) Disorder of phosphorus metabolism PHOSPHORUS LEVEL Routine 02/21/2019 7:56 Kidney replaced by R esults for this [employer]IATE transplant procedure are in Anemia of chronic the result s renal failure, section. unspecified CKD stage Hypermagnesemia Proteinuria, unspecified type Essential hypertension, malignant Chronic kidney disease, stage III (moderate) (HCC) Disorder of phosphorus metabolism MAGNESIUM LEVEL Routine 02/21/2019 7:56 Kidney replaced by Re sults for this AM [employer]IATE transplant procedure are in Anemia of chronic the result s renal failure, section. unspecified CKD stage Hypermagnesemia Proteinuria, unspecified type Essential hypertension, malignant Chronic kidney disease, stage III (moderate) (HCC) Disorder of phosphorus metabolism HC COMPLETE BLD COUNT Routine 02/21/2019 7:56 Kidney replaced by Results for this W/AUTO DIFF AM [employer] transplant procedure are in Anemia of chronic the result s renal failure, section. unspecified CKD stage Hypermagnesemia Proteinuria, unspecified type Essential hypertension, malignant Chronic kidney disease, stage III (moderate) (HCC) Disorder of phosphorus metabolism URINE CULTURE Routine 02/21/2019 7:56 Results fo r this [employer] procedure are i n the results section. after 09/15/2018 Results Estimated GFR (07/04/2019 9:01 AM CDT)Only the most recent of3 resultswithin the time period is included. Pathologist [facility] Estimated GFR 71 mL/min/1.73 [facility] Comment: m2 HOSPITAL Catergory Units Interpretation G1 [...] published in 2014. Specimen Performing Organization Address City/[facility]/Zipcode Phone Number [facility] DEPARTMENT OF PATHOLOGY AND [address] [place] [phone] Cyclosporine level, random (07/04/2019 9:01 AM CDT)Only the most recent of3 resultswithin the time period is included. Pathologist [facility] Cyclosporine 140 ng/mL [facility] Comment: HOSPITAL Unless administered by continuous IV drip, collect a p urple top tube just before the next dose. Therapeutic range of approximately 100-500 varies mainly with type of trans plant, use of other immunosuppressive agents, and evidence of toxicity or rejection. Test performed using [employer] Test Analyst chemiluminescent microparticle immunoassay for Cyclosporine on the P21 i System. Specimen Blood Performing Organization Address City/State/Zipcode Phone Number [facility] DEPARTMENT OF PATHOLOGY AND [address] [place] [address] [address] CBC with platelet and differential (07/04/2019 9:01 AM CDT)Only the most recent of3 resultswithin the time period is included. Pathologist [facility] WBC 7.79 4.50 - 11.00 [facility] RBC 4.73 4.40 - 6.00 [facility] HGB 15.8 14.0 - 18.0 [facility] g/dL HOSPITAL HCT 45.4 41.0 - 51.0 % [facility] MCV 96.0 82.0 - 100.0 [facility] MCH 33.4 27.0 - 34.0 pg [facility] MCHC 34.8 31.0 - 37.0 [facility] g/dL [facility] RDW - SD 39.6 37.0 - 55.0 fL [facility] MPV 9.3 8.8 - 13.2 fL [facility] Platelet count 283 150 - 400 k/uL [facility] Nucleated RBC 0.00 /100 WBC [facility] Neutrophils 60.4 39.0 - 69.0 % [facility] Lymphocytes 27.1 25.0 - 45.0 % [facility] Monocytes 10.4 (H) 0.0 - 10.0 % [facility] Eosinophils 1.0 0.0 - 5.0 % [facility] Basophils 0.6 0.0 - 1.0 % [facility] Immature granulocytes 0.5Comment: 0.0 - 1.0 % [facility] "[facility] granulocytes" (promyelocytes , myelocytes, metamyelocytes ) Specimen Blood Performing Organization Address City/[facility] Phone Number [facility] DEPARTMENT OF PATHOLOGY AND [address] [place] [address] [phone] [address] Uric acid level (07/04/2019 9:01 AM CDT)Only the most recent of3 resultswithin the time period is included. Pathologist [facility] Uric acid 5.8 3.4 - 7.0 mg/dL [facility] Specimen Blood Performing Organization Address City/[facility] Hospital[facility] Phone Number [facility] DEPARTMENT OF PATHOLOGY AND [address] [place] [address] [phone] [address] Phosphorus level (07/04/2019 9:01 AM CDT)Only the most recent of3 resultswithin the time period is included. Pathologist Sig nature Phosphorus 2.0 (L) 2.4 - 4.5 mg/dL [facility] Specimen Blood Performing Organization Address City/[facility] Phone Number [facility] DEPARTMENT OF PATHOLOGY AND [address] [place] [address] [phone] [address] Magnesium level (07/04/2019 9:01 AM CDT)Only the most recent of3 resultswithin the time period is included. Pathologist Sig nature Magnesium 2.1 1.6 - 2.6 mg/dL [facility] L Specimen Blood Performing Organization Address City/[facility] Phone Number [facility] DEPARTMENT OF PATHOLOGY AND [address] [place] [address] [address] LDH (07/04/2019 9:01 AM CDT)Only the most recent of3 resultswithin the time period is included. Pathologist Sig nature LDH 167 87 - 225 U/L [facility] Specimen Blood Performing Organization Address City/[facility] Phone Number [facility] DEPARTMENT OF PATHOLOGY AND [address] [place], [place] [phone] [address] [address] Comprehensive metabolic panel (07/04/2019 9:01 AM CDT)Only the most recent of3 resultswithin the time period is included. Sodium 136 135 - 148 [facility] mEq/L [facility] Potassium 4.3 3.5 - 5.0 [facility] mEq/L [facility] Chloride 99 98 - 112 [facility] mEq/L [facility] CO2 24 24 - 31 mEq/L [facility] Anion gap 13@ANIO 7 - 15 mEq/L [facility] BUN 18 6 - 20 mg/dL [facility] Creatinine 1.31 (H) 0.70 - 1.20 [facility] mg/dL [facility] Glucose 108 (H) 65 - 99 mg/dL [facility] Calcium 10.5 (H) 8.3 - 10.2 [facility] mg/dL HOSPITAL Protein 8.2 6.3 - 8.3 [facility] Comment: g/dL HOSPITAL - 4.6-7.0 g/dL 1 week 4.4-7.6 g/dL 7 months-1year 5.1-7.3 g/dL 1-2 years 5.6-7.5 g/dL >3 years 6.0-8.0 g/dL 18-150 6.3-8.3 g/dL Albumin 3.8 3.5 - 5.0 [facility] g/dL HOSPITAL A/G ratio 0.9 0.7 - 3.8 [facility] Alkaline phosphatase 73 40 - 129 U/L [facility] AST 20 10 - 50 U/L [facility] ALT 29 5 - 50 U/L [facility] Total bilirubin 0.6 0.0 - 1.2 [facility] mg/dL HOSPITAL Specimen Blood Performing Organization Address City/[facility] Phone Number [facility] DEPARTMENT OF PATHOLOGY AND [address] [place] [address] [phone] [address] Urinalysis screen and microscopy, with reflex to culture (07/04/2019 8:56 AM CDT)Only the most recent of3 resultswithin the time period is included. Specimen site Clean catch [facility] Color, UA Dark Yellow [facility] Appearance, UA Clear [facility] Specific gravity, UA 1.027 1.001 - 1.035 [facility] pH, UA 5.0 5.0 - 8.5 [facility] Protein, UA 3+ (A) Negative [facility] Glucose, UA Negative Negative [facility] Ketones, UA Negative Negative [facility] Bilirubin, UA Negative Negative [facility] Blood, UA Moderate (A) Negative [facility] Nitrite, UA Negative Negative [facility] Urobilinogen, UA 4.0 (A) <2.0 [facility] Leukocyte esterase, Negative Negative [facility] Epithelial cells, UA <1 /HPF [facility] WBC, UA 2 (H) 0 - 1 /HPF [facility] RBC, UA 9 (H) 0 - 5 /HPF [facility] Bacteria, UA None seen None seen [facility] Yeast, UA None seen [facility] Yeast with None seen [facility] pseudohyphae, [facility] Hyaline casts, UA 3 /LPF [facility] Specimen Urine Performing Organization Address City/[facility] Hospital[facility] Phone Number [facility] DEPARTMENT OF PATHOLOGY AND [address] [place] [address] [phone] [address] Protein, urine, random (07/04/2019 8:56 AM CDT)Only the most recent of3 results within the time period is included. Pathologist Sig nature Protein, urine random 373 mg/dL [facility] Specimen Urine Performing Organization Address City/[facility] Hospitalcode Phone Number [facility] DEPARTMENT OF PATHOLOGY AND [address] [place] [address] [place] [phone] Creatinine level, urine, random (07/04/2019 8:56 AM CDT)Only the most recent of 3 resultswithin the time period is included. Pathologist Sig nature Creatinine, urine, 298 mg/dL [facility] Specimen Urine Performing Organization Address City/[facility] Hospital[facility] Phone Number [facility] DEPARTMENT OF PATHOLOGY AND [address] [place] [address] Urine culture (07/04/2019 8:56 AM CDT)Only the most recent of3 resultswithin the time period is included. Pathologist Sig nature Urine culture SEE COMMENTComment: [facility] Bacteriuria screen HOSPITAL negative. Specimen Performing Organization Address City/[facility] Hospitalcode Phone Number [facility] DEPARTMENT OF PATHOLOGY AND [address] [place] [phone] [id number] Tacrolimus level, random (03/02/2019 8:54 AM [employer]IOR [employer]OCIATE) FK506 level <2.0 ng/mL [facility] Comment: HOSPITAL Therapeutic range 5-20 ng/mL for 12 hour trough. The r caleb varies depending on the organ transplanted, time after transplantation and co-administered immunosuppressant therapies. Please use clinical judgment to interpret test result. Test performed using [employer] Test Analyst chemiluminescent microparticle immunoassay for Tacrolimus on the [employer] i System. Specimen Blood Performing Organization Address City/State/Zipcode Phone Number [facility] DEPARTMENT OF PATHOLOGY AND [address] [place] [address] after 09/15/2018 Insurance Payer Benefit Plan / Subscriber ID Effective Dates Phone Addre ss Type Group MEDICARE MEDICARE PART A xxxxxxxxxxx 1993-Present [facility] [place] [place] Medicare AND B
[2019-09-16] MEDS ORDERED: CODEINE 30MG/APAP 300MG TAB ONE (16:37)
--- NOTE | 2019-09-16 17:05 | RAD REPORT ---
[facility]48 pm CLINICAL HISTORY: left leg pain and swelling. COMPARISON: September 09, 2019 FINDINGS: Echogenic material persists throughout the left popliteal vein. Flow within the popliteal vein is not seen. The vein is not compressible. Left common femoral, superficial femoral, and posterior tibial veins are compressible and demonstrat e augmentation. Doppler demonstrates good flow. IMPRESSION: Persistence of thrombus throughout the left popliteal vein .
[2019-09-16 17:42] LABS: Absolute Lymphocytes (CBC) 3.1 K/uL (0.7-4.9); Basophils % 0.9 % (0-1.3); Hematocrit 39.8 % (39.6-49.0); Lymphocytes % 32.1 % (15.3-44.8); MPV 7.2 fL (7.6-11.3)
[2019-09-16 18:24] LABS: Albumin 3.5 g/dL (3.4-5.0); Bilirubin Total 0.2 mg/dL (0.2-1.0); Potassium 4.3 mmol/L (3.5-5.1); Protein, Total 8.3 g/dL (6.4-8.2)
--- NOTE | 2019-09-16 19:06 | EDPHYS ---
Physician Documentation [facility] Name: Shoaib Freitas Jr Age: 54 yrs Sex: Male : 1965 Arrival Date: 09/16/2019 Time: 15:33 Bed 15 Private MD: ED Physician Sebas Stephenson HPI: 09/15 16:17 This 54 yrs old Black Male presents to ER via Ambulatory with complaints of Leg Pain. jmm 16:17 The patient presents with pain. Onset: The symptoms/episode began/occurred gradually, 1 jmm week(s) ago. Modifying factors: The symptoms are alleviated by nothing. the symptoms are aggravated by nothing. Associated signs and symptoms: Pertinent negatives. This is a 54 year old male with a history of kidney transplant, htn that presents to the ED with complaints of left lower leg pain. Patient was diagnosed with a DVT 1 week ago and is currently taking eliquis as directed. Patient states the pain has migrated to his calf, denies chest pain or shortness of breath. . Historical: - Allergies: 15:48 No Known Allergies; ll1 - PMHx: 15:48 history of dialysis; Hypertension; kidney transplant; Pancreatitis; Gall Stones; ll1 - PSHx: 15:48 Cholecystectomy; ll1 - Immunization history:: Adult Immunizations up to date. - Social history:: Smoking status: Patient/guardian denies using tobacco, the patient reports quitting approximately 3 years ago, Patient uses alcohol, only on a social basis. Patient/guardian denies using alcohol, street drugs, tobacco products. ROS: 16:17 Constitutional: Negative for fever, chills, and weight loss, Cardiovascular: Negative jmm for chest pain, palpitations, and edema, Respiratory: Negative for shortness of breath, cough, wheezing, and pleuritic chest pain. 16:17 MS/extremity: Positive for swelling, tenderness. 16:17 All other systems are negative. Exam: 16:17 Constitutional: This is a well developed, well nourished patient who is awake, alert, jmm and in no acute distress. Head/Face: atraumatic. Eyes: EOMI, no conjunctival erythema appreciated ENT: Moist Mucus Membranes Neck: Trachea midline, Supple Chest/axilla: Normal chest wall appearance and motion. Cardiovascular: Regular rate and rhythm. No edema appreciated Respiratory: Normal respirations, no respiratory distress appreciated Back: Normal ROM Skin: General appearance color normal 16:17 Musculoskeletal/extremity: ROM: intact in all extremities, left calf ttp, no obvious swelling, compartments are soft, full dorsalis pulse, NVI. 16:17 Skin: Appearance: Color: normal in color. 16:17 Neuro: Orientation: Mentation: is normal, Memory: is normal. 16:17 Psych: Behavior/mood is pleasant, cooperative. Vital Signs: 15:46 BP 127 / 91; Temp 98.3; Pain 8/10; ll1 15:49 Pulse 85; Resp 18; Pulse Ox 97% ; ll1 17:09 Weight 103.2 kg; vc 19:00 BP 134 / 96; Pulse 80; Resp 19; Pulse Ox 98% on R/A; vc 20:00 BP 141 / 95; Pulse 79; Resp 19; Temp 97.8(TE); Pulse Ox 99% on R/A; vc MDM: 16:05 Patient medically screened. [facility] 19:03 Data reviewed: vital signs, nurses notes. Counseling: I had a detailed discussion with david the patient and/or guardian regarding: the historical points, exam findings, and any diagnostic results supporting the discharge/admit diagnosis, lab results, radiology results, the need for further work-up and treatment in the hospital. ED course: I discussed the patient with Dr. Traore whom accepted admission. . 09/15 16:05 Order name: CBC with Diff; Complete Time: 17:54 [facility] 09/15 16:05 Order name: CMP; Complete Time: 18:40 [facility] 09/15 19:29 Order name: Comprehensive Metabolic Panel [facility] 09/15 19:29 Order name: Comprehensive Metabolic Panel [facility] 09/15 19:29 Order name: Protime (+INR) [facility] 09/15 19:29 Order name: Protime (+INR) [facility] 09/15 16:16 Order name: US Extremity Venous Unilateral Ltd; Complete Time: 17:08 [facility] 09/15 19:29 Order name: PTT, Activated Partial Thromb [facility] 09/15 19:29 Order name: PTT, Activated Partial Thromb [facility] 09/15 19:30 Order name: CONS Pharmacy Consult [facility] 09/15 19:30 Order name: CBC with Automated Diff [facility] 09/15 19:30 Order name: CBC with Automated Diff [facility] 09/15 16:05 Order name: Saline Lock [facility] 09/15 19:30 Order name: NPO EDMS Administered Medications: 16:55 Drug: Tylenol #3 (300 mg-30 mg) 1 tablet Route: PO; vc 17:01 CANCELLED (hold for now): Lovenox 1 mg/kg Sub-Q once [facility] Disposition: 09/16 07:09 Co-signature as Attending Physician, Sebas Stephenson MD. rn Disposition: 09/16/19 19:05 Hospitalization ordered by Santiago Malloy for Observation. Preliminary diagnosis is DVT - Failed Outpatient Therapy. - Bed requested for Telemetry/MedSurg (observation). - Status is Observation. vc - Condition is Stable. - Problem is an acute exacerbation. - Symptoms have worsened. Signatures: Dispatcher [employer] EDMS Nicki Puente RN RN Nestor Carpio PA PA [facility] Sebas Stepehnson MD MD rn Calcote, Vanessa, RN RN vc Lewis, Lynsay, RN RN ll1 Corrections: (The following items were deleted from the chart) 09/15 17:01 16:55 Lovenox 1 mg/kg Sub-Q once ordered. [facility] 19:59 19:05 Hospitalization Ordered by Santiago Malloy MD for Observation. Preliminary diagnosis is DVT - Failed Outpatient Therapy. Bed requested for Telemetry/MedSurg (observation). Status is Observation. Condition is Stable. Problem is an acute exacerbation. Symptoms have worsened. [facility] 21:32 19:59 09/16/2019 19:05 Hospitalization Ordered by Santiago Malloy MD for Observation. vc Preliminary diagnosis is DVT - Failed Outpatient Therapy. Bed requested for Telemetry/MedSurg (observation). Status is Observation. Condition is Stable. Problem is an acute exacerbation. Symptoms have worsened. mw
--- NOTE | 2019-09-16 19:06 | ER ---
Nurse's Notes [facility] Name: Shoaib Freitas Jr Age: 54 yrs Sex: Male : 1965 Arrival Date: 09/16/2019 Time: 15:33 Bed 15 Private MD: Diagnosis: DVT - Failed Outpatient Therapy Presentation: 09/15 15:46 Chief complaint: Patient states: Left leg pain continues since admission here last ll1 week. No SOB or CP. Coronavirus screen: Proceed with normal triage. Patient denies a cough. Patient denies shortness of breath or difficulty breathing. Patient denies measured and/or subjective temperature greater than 100.4F prior to today's visit. Patient denies travel on a cruise ship or to a country the [facility] currently lists as an affected area. Patient denies contact with known and/or suspected case of COVID-19. Ebola Screen: Patient denies travel to an Ebola-affected area in the 21 days before illness onset. Risk Assessment: Do you want to hurt yourself or someone else? Patient reports no desire to harm self or others. Onset of symptoms was September 05, 2019. 15:46 Method Of Arrival: Ambulatory ll1 15:46 Acuity: COBY 3 ll1 16:00 Initial Sepsis Screen: Does the patient meet any 2 criteria? No. Patient's initial vc sepsis screen is negative. Does the patient have a suspected source of infection? No. Patient's initial sepsis screen is negative. Triage Assessment: 16:00 General: Appears in no apparent distress. uncomfortable, Behavior is calm, cooperative, vc appropriate for age. Pain: Complains of pain in left leg. 20:20 Pain:. vc Historical: - Allergies: 15:48 No Known Allergies; ll1 - PMHx: 15:48 history of dialysis; Hypertension; kidney transplant; Pancreatitis; Gall Stones; ll1 - PSHx: 15:48 Cholecystectomy; ll1 - Immunization history:: Adult Immunizations up to date. - Social history:: Smoking status: Patient/guardian denies using tobacco, the patient reports quitting approximately 3 years ago, Patient uses alcohol, only on a social basis. Patient/guardian denies using alcohol, street drugs, tobacco products. Screenin:00 Abuse screen: Denies threats or abuse. Nutritional screening: No deficits noted. vc Tuberculosis screening: No symptoms or risk factors identified. Fall Risk None identified. Assessment: 16:00 General: Appears in no apparent distress. uncomfortable, Behavior is calm, cooperative, vc appropriate for age. Pain: Complains of pain in left leg Pain radiates to left calf Pain currently is 6 out of 10 on a pain scale. Neuro: Level of Consciousness is awake, alert, obeys commands, Oriented to person, place, time, situation. Cardiovascular: Capillary refill < 3 seconds Patient's skin is warm and dry. Respiratory: Airway is patent Respiratory effort is even, unlabored, Respiratory pattern is regular, symmetrical. GI: No signs and/or symptoms were reported involving the gastrointestinal system. : No signs and/or symptoms were reported regarding the genitourinary system. Derm: Patient has scars to bilateral arms where dialysis shunts were removed. 16:30 Reassessment: Ultrasound at bedside. vc 16:53 Reassessment: Patient states he is a hard stick, warm pack applied after first missed vc attempt. Will try again in a few minutes. 17:00 Reassessment: Patient appears in no apparent distress at this time. Patient and/or vc family updated on plan of care and expected duration. Pain level reassessed. Patient is alert, oriented x 3, equal unlabored respirations, skin warm/dry/pink. 18:00 Reassessment: Patient appears in no apparent distress at this time. Patient and/or vc family updated on plan of care and expected duration. Pain level reassessed. Patient is alert, oriented x 3, equal unlabored respirations, skin warm/dry/pink. 19:00 Reassessment: Patient appears in no apparent distress at this time. Patient and/or vc family updated on plan of care and expected duration. Pain level reassessed. Patient is alert, oriented x 3, equal unlabored respirations, skin warm/dry/pink. 20:00 Reassessment: Patient appears in no apparent distress at this time. No changes from vc previously documented assessment. 21:00 Reassessment: Patient appears in no apparent distress at this time. Patient and/or vc family updated on plan of care and expected duration. Pain level reassessed. Patient states symptoms have improved. Cardiovascular: Capillary refill < 3 seconds Patient's skin is warm and dry. Respiratory: Respiratory effort is even, unlabored, Respiratory pattern is regular, symmetrical. Vital Signs: 15:46 BP 127 / 91; Temp 98.3; Pain 8/10; ll1 15:49 Pulse 85; Resp 18; Pulse Ox 97% ; ll1 17:09 Weight 103.2 kg; vc 19:00 BP 134 / 96; Pulse 80; Resp 19; Pulse Ox 98% on R/A; vc 20:00 BP 141 / 95; Pulse 79; Resp 19; Temp 97.8(TE); Pulse Ox 99% on R/A; vc ED Course: 15:33 Patient arrived in ED. fj1 15:48 Triage completed. ll1 15:49 Arm band placed on Patient placed in an exam room, on a stretcher. ll1 15:53 Nestor Hilliard PA is PHCP. [facility] 15:54 Sebas Stephenson MD is Attending Physician. jmm 16:25 Osiris Iqbal, PRINCESS is Primary Nurse. vc 16:49 US Extremity Venous Unilateral Ltd In Process Unspecified. EDMS 18:[address] Juan Klein at [phone] for Nestor SALOMON/ Dr. Swartz is eb election assistant and should be returning the page per answering service. 18:[address] Swartz with Nestor SALOMON for patient consultation. eb 19:04 Santiago Malloy MD is Hospitalizing Provider. [facility] 21:30 No provider procedures requiring assistance completed. Patient admitted, IV remains in vc place. Administered Medications: 16:55 Drug: Tylenol #3 (300 mg-30 mg) 1 tablet Route: PO; vc 17:01 CANCELLED (hold for now): Lovenox 1 mg/kg Sub-Q once [facility] Outcome: 19:05 Decision to Hospitalize by Provider. jmm 21:30 Admitted to Med/surg accompanied by tech, via wheelchair, room 225. vc 21:30 Condition: good 21:30 Instructed on the need for admit. vc 21:32 Patient left the ED. vc Signatures: Dispatcher [employer] EDMS Nestor Hilliard PA PA jmm Botello, Elizabeth eb Calcote, Vanessa, RN RN vc Jerome Olea fj1 Paxton Ruiz RN RN ll1 Corrections: (The following items were deleted from the chart) 20:24 20:00 BP 133 / 71; Pulse 79bpm; Resp 19bpm; Pulse Ox 100% 2 lpm Nasal Cannula; Temp vc 97.8F Temporal; vc
[2019-09-16] MEDS ORDERED: ONDANSETRON 4 MG/2 ML VIAL IV PRN (19:27)
[2019-09-16] MEDS ORDERED: ACETAMINOPHEN 500 MG TAB PO PRN (19:27)
[2019-09-16] MEDS ORDERED: MORPHINE 2 MG/ML SYR IV PRN (19:27)
[2019-09-16 21:06] VITALS: BMI 31.8
[2019-09-16 21:46] VITALS: O2SAT 99
[2019-09-16] MEDS: NA CHLORIDE 0.9% 1,000 ML IV SCH (21:54)
[2019-09-17] MEDS ORDERED: FENTANYL CITR 100 MCG/2 ML IV ONE (04:53)
[2019-09-17] MEDS ORDERED: MORPHINE 2 MG/ML SYR IV PRN (04:54)
[2019-09-17] MEDS ORDERED: APIXABAN 5 MG TABLET PO SCH ×3 (06:00→09:00)
[2019-09-17 06:26] LABS: Absolute Lymphocytes (CBC) 2.8 K/uL (0.7-4.9); Basophils % 0.9 % (0-1.3); Hematocrit 36.4 % (39.6-49.0); Lymphocytes % 31.5 % (15.3-44.8); MPV 7.7 fL (7.6-11.3); RBC Red Blood Cell Count 3.88 M/uL (4.33-5.43)
[2019-09-17 06:38] LABS: Protime INR 1.03
[2019-09-17 06:56] LABS: Albumin 2.9 g/dL (3.4-5.0); Bilirubin Total 0.3 mg/dL (0.2-1.0); Potassium 4.1 mmol/L (3.5-5.1)
[2019-09-17] MEDS ORDERED: HYDROMORPHONE HCL 1 MG/ML INJ IV PRN (07:20)
[2019-09-17] MEDS: levoFLOXacin 500 MG TAB PO SCH (07:38)
[2019-09-17] MEDS: DILTIAZEM HCL 120 MG SR CAP PO SCH (09:00)
[2019-09-17] MEDS: CYCLOSPORINE 25 MG PO SCH ×3 (09:00→19:49)
[2019-09-17] MEDS: CYCLOSPORINE 100 MG PO SCH ×3 (09:00→19:48)
[2019-09-17] MEDS: TRAMADOL HCL 50 MG TAB PO PRN ×3 (09:17→21:26)
[2019-09-17] MEDS: NA CHLORIDE 0.9% 1,000 ML IV SCH ×2 (10:36→11:00)
--- NOTE | 2019-09-17 11:43 | CON ---
Date of Consultation: 09/17/2019 Reason For Consultation: Acute kidney injury on kidney transplant. History Of Present Illness: This is a pleasant 54-year-old gentleman, well known to me from the [facility] ious admission with significant past medical history of hypertension, hyperlipidemia, chronic kidney disease stage 5 status post kidney transplant back in 1999, the transplant was -donor kidney transplant without any rejection. The patient maintained on good antirejection medication, followup downtown with the transplant team. No recent change in his medication. Patient recently admitted to the hospital with DVT on the left leg, treated and recovered. Patient was discharged on Eliquis. A pparently, patient came back complaining from pain and tenderness on the same site with increased swe lling. Primary workup showed thrombosis throughout the left popliteal vein. Patient, according to alan im, has been taking his anticoagulation. No recent change in his medication. Upon arrival to the [facility], patient found to have elevation in BUN and creatinine. Creatinine was 1.2 with GFR of 72. H is baseline creatinine patient around 1 with normal GFR. Past Medical History: Includes: 1.DVT. 2.Hypertension. 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 4.Hematuria. Social History: Active smoker. Active alcohol. Denies drug abuse. Family History: Positive for hypertension and diabetes. Surgical History: Includes kidney transplant. Home Medications: Include: 1.Diltiazem. 2.Cyclosporine 125 b.i.d. 3.CellCept 500 b.i.d. 4.Eliquis 5 mg b.i.d. Current Medications In The Hospital: Include tramadol, diltiazem. Review of Systems: Head and Neck: No red eye. No ear pain. GI: Epigastric pain. Has nausea, no vomiting. : No polyuria, no dysuria, no hematuria. Pararescue Manager: Not applicable. Respiratory: No shortness of breath. Cardiovascular: No chest pain. Endocrine: No polydipsia. Skin: No rash. Neuro: No neuropathy. Musculoskeletal: Has leg pain. Has leg swelling. Physical Examination: General: When I saw the patient, patient lying in bed, comfortable. Vital Signs: Blood pressure 149/83, pulse of 63, afebrile. Chest: Clear to auscultation. Heart: S1, S2. Regular. Abdomen: Soft, nontender. Extremities: Trace edema, more prominent on the left leg. Neuro: Alert and oriented x3. No focal. Laboratory Data: Upon admission yesterday, sodium 139, potassium 4.3, bicarb 26, BUN 16, creatinine 1.2, GFR of 72, calcium 9.7. Albumin is 3.5. Current lab data right now, sodium 140, potassium 4.1, bicarb 27, BUN 14, creatinine 1.2, GFR of 83, calcium 8.7, albumin is 2.9. TSH 1.3. Urinalysis: S pecific gravity of 1.025, +3 protein. Patient had proteinuria before significant, 1.8. Assessment And Plan: 1.Chronic kidney disease stage 5 secondary to hypertensive nephrosclerosis, status post kidney trans plant with acute kidney injury secondary to prerenal, looked to me start to be normal volume. I am g oing to go ahead and decrease intravenous fluid to 50 per hour. We will consider DC by tomorrow. We will resume immunosuppressive medication. 2.Leg edema secondary to deep vein thrombosis. Resume Eliquis. We will send for TSH and protein cr eatinine. Continue intravenous fluid. 3.Cellulitis given the fact that he is on immunosuppressive with Prograf. We rather choose differen t antibiotic. I will place the patient on Bactrim/Augmentin. 4.Hypertension, controlled, optimal. Continue current medication. 5.Deep vein thrombosis. Resume Eliquis. 6.Proteinuria with the presence of transplant and being on Prograf. I going to send for PC ratio an d possible has focal segmental glomerulosclerosis secondary to Prograf. Given the stabilized kidney function, I do not think any further workup is going to be needed. We will follow up with the transp lant team. NAOMI/ASHLEY Voice ID: [id number] Report ID: [id number]
[2019-09-17] MEDS: CODEINE 30MG/APAP 300MG TAB PO PRN ×2 (13:41→19:47)
[2019-09-17 14:21] LABS: Urine Protein/Creatinine Ratio 2.04 ratio (<0.15)
[2019-09-17] MEDS ORDERED: ENOXAPARIN 100 MG/ML SYR SQ SCH (21:00)
[2019-09-18] MEDS: CODEINE 30MG/APAP 300MG TAB PO PRN (01:36)
[2019-09-18] MEDS ORDERED: ENOXAPARIN 100 MG/ML SYR SQ SCH (05:00)
[2019-09-18] MEDS ORDERED: PANTOPRAZOLE 40MG TABLET PO ONE (05:09)
[2019-09-18] MEDS ORDERED: MAGNES/ALUMIN/SIMET 30ML UCUP PO ONE (05:10)
[2019-09-18] MEDS: NA CHLORIDE 0.9% 1,000 ML IV SCH (05:22)
[2019-09-18] MEDS: TRAMADOL HCL 50 MG TAB PO PRN ×2 (05:22→11:56)
[2019-09-18 06:17] LABS: Phosphorus 2.7 mg/dL (2.5-4.9); Potassium 4.2 mmol/L (3.5-5.1); Thyroid Stimulating Hormone 1.33 uIU/mL (0.360-3.740)
[2019-09-18] MEDS: levoFLOXacin 500 MG TAB PO SCH (09:18)
[2019-09-18] MEDS: CYCLOSPORINE 100 MG PO SCH (09:20)
[2019-09-18] MEDS: DILTIAZEM HCL 120 MG SR CAP PO SCH (09:23)
[2019-09-18] MEDS: CYCLOSPORINE 25 MG PO SCH (09:26)
--- NOTE | 2019-09-18 11:38 | PN ---
Date of Progress Note: 09/18/2019 Patient was admitted with acute kidney injury, on kidney transplant. Patient was on the dehydration side. Patient was started on IV hydration. Kidney function back to baseline. Patient resumed his i mmunosuppressive medication. Physical Examination: Vital Signs: Blood pressure 139/72, pulse of 70, afebrile. Patient had good urine output. Chest: Clear to auscultation. Heart: S1, S2. Regular. Abdomen: Soft, nontender. Extremities: Trace edema, more prominent on the left side. Laboratory Data: WBC 8.8, H and H 12.3/36.4, platelets 312. Sodium 137, potassium 4.2, bicarb 27, B UN 15, creatinine 1.1, calcium 9, phosphorus 2.7. Serum protein electrophoresis still pending. TSH 1.3, PC ratio of 2. Current Medications: The patient on include diltiazem, Levaquin, Lovenox, pantoprazole, tramadol, Ce llCept 500 daily, cyclosporine 125 b.i.d. Assessment And Plan: 1.Chronic kidney disease stage 5/end-stage renal disease, status post transplant with acute kidney i njury secondary to prerenal, recovered, resolved. I am going to go ahead and discontinue IV fluid. 2.Hypertension, controlled optimal with presence of significant proteinuria. I am going to go ahead and decrease diltiazem and start the patient on low dose of angiotensin converting enzyme inhibitor and we will follow up serum protein electrophoresis. 3.Cellulitis. We will discontinue Levaquin. We will place the patient on Augmentin to avoid the in teraction with the immunosuppressive medication. 4.Deep vein thrombosis. Continue current anticoagulation. We will follow up with the Primary. 5.Edema secondary to deep vein thrombosis/proteinuria/calcium channel pamella. Decrease diltiazem. Discontinue intravenous fluid. Start the patient on lisinopril and we will follow up the patient. NAOMI/ASHLEY Voice ID: [id number] Report ID: [id number]
[2019-09-18 12:43] VITALS: BP 129/82; TEMP 97.1
[2019-09-18] MEDS ORDERED: AMOX/K CLAV 875 MG TAB PO SCH (21:00)
[2019-09-19] MEDS ORDERED: DILTIAZEM HCL 120 MG SR CAP PO SCH (09:00)
[2019-09-19] MEDS ORDERED: lisinopriL 5 MG TAB PO SCH (09:00)
--- NOTE | 2019-09-20 13:18 | P.HP ---
Certification for Inpatient Patient admitted to: Inpatient With expected LOS: >2 Midnights Patient will require the following post-hospital care: None Practitioner: I am a practitioner with admitting privileges, knowledge of patient current condition, hospital course, and medical plan of care. Services: Services provided to patient in accordance with Admission requirements found in Title 42 Section 412.3 of the Code of Federal Regulations Patient History Date of Service: 09/16/19 Reason for admission: Left popliteal DVT with Thrombophlebitis History of Present Illness: Patient is a 54-year-old gentleman with a history of renal transplant who came into the hospital with pain in the left lower extremity. She was recently diagnosed with a left popliteal DVT and was having more severe pain even after treatment. His workup revealed thrombophlebitis. Patient will be admitted to the hospital for further treatment. Allergies No Known Allergies Allergy (Verified 09/09/19 21:27) Home Medications: Mycophenolate Mofetil [Cellcept] 500 mg PO DAILY 11/26/18 cycloSPORINE [Sandimmune] 25 mg PO BID 11/26/18 cycloSPORINE [Sandimmune] 100 mg PO BID 11/26/18 dilTIAZem HCl [Diltiazem 24Hr ER (LA)] 240 mg PO DAILY 11/26/18 Levofloxacin [Levaquin] 500 mg PO DAILY #7 tablet 11/28/18 Codeine/APAP [Tylenol #3*] 1 tab PO Q6HP PRN #12 tab 09/11/19 Apixaban [Eliquis] 5 mg PO BID 09/16/19 Amox/Clavulanate [Augmentin 875-125 Tab*] 875 mg PO BID #10 tab 09/18/19 Pantoprazole [Protonix Tab] 40 mg PO DAILY #30 tab 09/18/19 predniSONE [Prednisone*] 20 mg PO DAILY #5 tab 09/18/19 traMADol HCL [Ultram*] 50 mg PO BID #60 tab 09/18/19 - Past Medical/Surgical History Has patient received pneumonia vaccine in the past: No Diabetic: No -: History of renal transplant-17 years ago -: Hypertension -: Tobacco abuse -: pancreatitis -: kidney transplant 17 yrs ago -: cholecystectomy Psychosocial/ Personal History: He is engaged, has 2 children, 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 - Family History Mother Medical History: Hypertension, Diabetes Father Medical History: Hypertension, Diabetes - Social History Smoking Status: Former smoker Alcohol use: Yes CD- Drugs: No Caffeine use: Yes Place of Residence: Home Review of Systems 10-point ROS is otherwise unremarkable Physical Examination - Vital Signs Temperature: 97.1 F Blood Pressure: 129/82 Pulse: 68 Respirations: 16 Pulse Ox (%): 97 - Physical Exam General: Alert, In no apparent distress, Oriented x3 HEENT: Atraumatic, PERRLA, Mucous membr. moist/pink, EOMI, Sclerae nonicteric Neck: Supple, 2+ carotid pulse no bruit, No LAD, Without JVD or thyroid abnormality Respiratory: Clear to auscultation bilaterally, Normal air movement Cardiovascular: Regular rate/rhythm, Normal S1 S2, No murmurs Gastrointestinal: Normal bowel sounds, Soft and benign, Non-distended, No tenderness Musculoskeletal: No clubbing, No swelling, No tenderness Integumentary: Tenderness/swelling, Erythema, Warmth Neurological: Normal gait, Normal speech, Normal strength at 5/5 x4 extr, Normal tone, Sensation intact, Cranial nerves 3-12 intact, Normal affect Lymphatics: No axilla or inguinal lymphadenopathy Assessment & Plan - Problems (Diagnosis) (1) Deep venous thrombosis of left popliteal vein Status: Acute (2) Thrombophlebitis Status: Acute (3) Cellulitis of leg, right Onset Date: 12/03/15 Status: Acute (4) History of renal transplantation Status: Chronic (5) Hypertension Onset Date: 12/03/15 Status: Chronic Qualifiers: - Plan Plan: 1. Hematology consultation 2. Anticoagulation 3. Pain control 4. Antiinflammatory 5. Antibiotics 6. Continue suppressants 7. Monitor levels closely. Monitor and follow-up with the transplant team 8. GI and DVT prophylaxis Discharge Plan: Home Plan to discharge in: Greater than 2 days - Advance Directives Does patient have a Living Will: No Does patient have a Durable POA for Healthcare: No - Code Status/Comfort Care Code Status Assessed: Yes Code Status: Full Code Critical Care: No Time Spent Managing PTS Care (In Minutes): 45
--- NOTE | 2019-09-20 13:20 | P.PN ---
Subjective Date of Service: 09/17/19 Patient's pain is better. Awaiting hematology recommendation. Currently on Lovenox and will decide what they recommend at discharge. Physical Examination - Vital Signs Temperature: 97.1 F Blood Pressure: 129/82 Pulse: 68 Respirations: 16 Pulse Ox (%): 97 Assessment & Plan - Problems (Diagnosis) (1) Deep venous thrombosis of left popliteal vein Status: Acute (2) Thrombophlebitis Status: Acute (3) Cellulitis of leg, right Onset Date: 12/03/15 Status: Acute (4) History of renal transplantation Status: Chronic (5) Hypertension Onset Date: 12/03/15 Status: Chronic Qualifiers: - Plan Plan: 1. Hematology consultation pending 2. Continue with anticoagulation 3. Pain control 4. Antiinflammatory 5. Antibiotics 6. Continue immunosuppressants 7. Monitor levels closely. Monitor and follow-up with the transplant team 8. GI and DVT prophylaxis Discharge Plan: Home Plan to discharge in: 48 Hours - Advance Directives Does patient have a Living Will: No Does patient have a Durable POA for Healthcare: No - Code Status/Comfort Care Code Status: Full Code Critical Care: No Time Spent Managing PTS Care (In Minutes): 40
--- NOTE | 2019-09-20 13:21 | P.DS ---
Discharge Date: 09/18/19 Disposition: ROUTINE DISCHARGE Discharge Condition: GOOD Reason for Admission: Left popliteal DVT with Thrombophlebitis - Problems (1) Deep venous thrombosis of left popliteal vein Status: Acute (2) Thrombophlebitis Status: Acute (3) Cellulitis of leg, right Onset Date: 12/03/15 Status: Acute (4) History of renal transplantation Status: Chronic (5) Hypertension Onset Date: 12/03/15 Status: Chronic Qualifiers: Brief History of Present Illness: Patient is a 54-year-old gentleman with a history of renal transplant who came into the hospital with pain in the left lower extremity. She was recently diagnosed with a left popliteal DVT and was having more severe pain even after treatment. His workup revealed thrombophlebitis. Patient will be admitted to the hospital for further treatment. Hospital Course: Patient had done well during hospital stay. Pain is controlled. Continue anticoagulation. Continue pain control. Continue with antibiotics. Outpatient follow up with transplant team as well as hematology oncology. Patient will also follow with our local clerical adjudicator. Vital Signs/Physical Exam: Temp Pulse Resp BP Pulse Ox 97.1 F 68 16 129/82 97 09/20/19 13:20 09/20/19 13:20 09/20/19 13:20 09/20/19 13:20 09/20/19 13:20 General: Alert, In no apparent distress, Oriented x3 Laboratory Data at Discharge: WBC 8.8 K/uL (4.3-10.9) 09/17/19 06:01 Hgb 12.3 g/dL (13.6-17.9) L 09/17/19 06:01 Hct 36.4 % (39.6-49.0) L 09/17/19 06:01 Plt Count 312 K/uL (152-406) 09/17/19 06:01 PT 12.1 SECONDS (9.5-12.5) 09/17/19 06:01 INR 1.03 09/17/19 06:01 APTT 33.6 SECONDS (24.3-36.9) 09/17/19 06:01 Sodium 137 mmol/L (136-145) 09/18/19 05:16 Potassium 4.2 mmol/L (3.5-5.1) 09/18/19 05:16 BUN 15 mg/dL (7-18) 09/18/19 05:16 Creatinine 1.18 mg/dL (0.55-1.3) 09/18/19 05:16 Glucose 105 mg/dL (74-106) 09/18/19 05:16 Phosphorus 2.7 mg/dL (2.5-4.9) 09/18/19 05:16 Total Bilirubin 0.3 mg/dL (0.2-1.0) 09/17/19 06:01 AST 25 U/L (15-37) 09/17/19 06:01 ALT 54 U/L (12-78) 09/17/19 06:01 Alkaline Phosphatase 74 U/L (45-117) 09/17/19 06:01 Home Medications: Mycophenolate Mofetil [Cellcept] 500 mg PO DAILY 11/26/18 cycloSPORINE [Sandimmune] 25 mg PO BID 11/26/18 cycloSPORINE [Sandimmune] 100 mg PO BID 11/26/18 dilTIAZem HCl [Diltiazem 24Hr ER (LA)] 240 mg PO DAILY 11/26/18 Levofloxacin [Levaquin] 500 mg PO DAILY #7 tablet 11/28/18 Codeine/APAP [Tylenol #3*] 1 tab PO Q6HP PRN #12 tab 09/11/19 Apixaban [Eliquis] 5 mg PO BID 09/16/19 Amox/Clavulanate [Augmentin 875-125 Tab*] 875 mg PO BID #10 tab 09/18/19 Pantoprazole [Protonix Tab] 40 mg PO DAILY #30 tab 09/18/19 predniSONE [Prednisone*] 20 mg PO DAILY #5 tab 09/18/19 traMADol HCL [Ultram*] 50 mg PO BID #60 tab 09/18/19 New Medications: Amox/Clavulanate [Augmentin 875-125 Tab*] 875 mg PO BID #10 tab predniSONE [Prednisone*] 20 mg PO DAILY #5 tab Pantoprazole [Protonix Tab] 40 mg PO DAILY #30 tab traMADol HCL [Ultram*] 50 mg PO BID #60 tab Patient Discharge Instructions: OK TO DC IV AND DC HOME. Please call in tramadol for patient. FOLLOW-UP WITH PRIMARY CARE PROVIDER IN 1-2 WEEKS. Follow-up with Hematology, Dr. Champion, this week. FOLLOW-UP WITH Transplant team in 1 week. RETURN TO THE ER IF symptoms worsens. CALL DR. BAIG AT [phone] IF ANY QUESTIONS REGARDING HOSPITAL STAY. PLEASE CALL THE FLOOR AT [phone] IF ANY MEDICATION OR NURSING QUESTIONS. Diet: Regular Activity: Fall precautions Followup: Aysha Kamara MD [ACTIVE - CAN ADMIT] - Time spent managing pt's care (in minutes): 20
[2019-09-20 21:54] LABS: Albumin, (SPE) 3.1 g/dL (3.8-4.8); Alpha-1-Globulins 0.3 g/dL (0.2-0.3); Alpha-2-Globulins 0.7 g/dL (0.5-0.9); Gamma Globulins 1.3 g/dL (0.8-1.7); INTERPRETATION REPORT
== END 2019-09-18 15:28 | disposition home or self-care (01) | DRG 299 ==
LOC: ER 15:30 → ERHOLD 19:32 → 2ND 20:36
PROVIDERS: ADMIT Hospitalist; ATTEND Hospitalist
DX: I82.432 Acute embolism and thrombosis of left popliteal vein (principal); N18.6 End stage renal disease; L03.115 Cellulitis of right lower limb; T86.12 Kidney transplant failure; N17.9 Acute kidney failure, unspecified; I12.0 Hypertensive chronic kidney disease with stage 5 chronic kidney disease or end stage renal disease; R60.9 Edema, unspecified; F17.200 Nicotine dependence, unspecified, uncomplicated; Z79.01 Long term (current) use of anticoagulants; Z79.52 Long term (current) use of systemic steroids; Z79.899 Other long term (current) drug therapy; Z90.49 Acquired absence of other specified parts of digestive tract; Z87.81 Personal history of (healed) traumatic fracture; Z79.891 Long term (current) use of opiate analgesic
CPT/HCPCS: 36415; 80053; 80069; 82570; 84156; 84165; 84443; 85025; 85610; 85730; 93971; 99285; J1650; J2270; J3010; J7030; U0002

== ENCOUNTER 2019-11-23 17:10 | Emergency (ER) | payer OTHER ==
--- OUTSIDE RECORDS SUMMARY | 2019-11-23 17:13 | XMS REPORT | Continuity of Care Document ---
:1965 Author Organization [facility] t Address [address] [place] [address] Care Team Providers Name Role Phone Peter ALVAREZ, Akin Primary Care Physician Unavailable Chase ALVAREZ Attending Clinician Satish Klein MD Attending Clinician Payers Payer Name Policy Policy Number Effective Expiration Source Type Date Date [employer] MEDICARE xxxxxxxxx ISA Donald [facility] CARE[facility] - [facility] MAPSxxxxxxxxx [place] MEDICAREMEDICARE PART xxxxxxxxxxx 1993 Victorino Arredondo AND 00:00:00 [place] B[place]xxx[place] Problems Condition Condition Condition Status Onset Resolution Last Treating Co mments Source Name Details Category Date Date Treatment Clinician Date Kidney Kidney Disease Active 2017-04 [facility] 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 Family History Family Member Diagnosis Comments Start Date Stop Date Source Natural father Hypertension [facility] Natural mother Heart disease [facility] Natural mother Hypertension [facility] Natural sister Diabetes [facility] Social History Social Habit Start Date Stop Date Quantity Comments Source Sex Assigned At [facility] M ethodist Alcohol intake 2018-01-18 2018-01-18 Current [facility] 00:00:00 00:00:00 non-drinker of alcohol (finding) Tobacco Comment 2018-01-15 2018-01-15 "Quit 2-3 months Tiffany ston Alevism 00:00:00 00:00:00 ago" Smoking Status Start Date Stop Date Source Former smoker 2018-01-18 00:00:00 2018-01-18 00:00:00 Kavon Trivedi Current some day 2016-03-26 00:00:00 [facility] smoker Center Medications Ordered Filled [...] st 37 Procedures Procedure Date / Time Performing Clinician Source Performed SARS-COV2/RT-PCR ([facility] & 2019-09-16 21:40:00 [facility] RE[facility]) [facility] HC COMPLETE BLD COUNT 2019-07-04 09:01:00 Jean Paul Fabian on Alevism W/AUTO DIFF MAGNESIUM LEVEL 2019-07-04 09:01:00 Jean Paul Fabian Met [facility]odist PHOSPHORUS LEVEL 2019-07-04 09:01:00 Riky Fabianhen [facility] URIC ACID LEVEL 2019-07-04 09:01:00 ChaseJean Paul Met hodist LDH 2019-07-04 09:01:00 ChaseJean Paul Met hodist COMPREHENSIVE METABOLIC 2019-07-04 09:01:00 Jean Paul Fabian [facility] PANEL CYCLOSPORINE LEVEL, 2019-07-04 09:01:00 ChaseJean Paul Kavon Alevism RANDOM ESTIMATED GFR 2019-07-04 09:01:00 ChaseJean Paul [facility] URINE CULTURE 2019-07-04 08:56:00 ChaseJean Paul Met [facility]odist URINALYSIS SCREEN AND 2019-07-04 08:56:00 Jean Paul Fabian on Alevism MICROSCOPY, WITH REFLEX TO CULTURE PROTEIN, URINE, RANDOM 2019-07-04 08:56:00 Jean Paul Fabian [facility] CREATININE LEVEL, URINE, 2019-07-04 08:56:00 Jean Paul Fabian Alevism RANDOM URINE CULTURE 2019-03-02 08:54:00 Juan Klein Ga [facility]odist COMPREHENSIVE METABOLIC 2019-03-02 08:54:00 Juan Klein [facility] PANEL HC COMPLETE BLD COUNT 2019-03-02 08:54:00 Juan Klein [facility]ism W/AUTO DIFF MAGNESIUM LEVEL 2019-03-02 08:54:00 Juan Klein Ga [facility]odist PHOSPHORUS LEVEL 2019-03-02 08:54:00 Juan Klein ethodist URIC ACID LEVEL 2019-03-02 08:54:00 Juan Klein Ga thodist LDH 2019-03-02 08:54:00 Juan Klein Ga [facility]odist URINALYSIS SCREEN AND 2019-03-02 08:54:00 Juan Klein Alevism MICROSCOPY, WITH REFLEX TO CULTURE CREATININE LEVEL, URINE, 2019-03-02 08:54:00 Juan Klein Alevism RANDOM PROTEIN, URINE, RANDOM 2019-03-02 08:54:00 Juan Klein Alevism [id number] TACROLIMUS LEVEL, 2019-03-02 08:54:00 Juan Klein Alevism RANDOM ESTIMATED GFR 2019-03-02 08:54:00 Juan Klein Ga thodist CYCLOSPORINE LEVEL, 2019-03-02 08:54:00 Juan Klein Alevism RANDOM URINE CULTURE 2019-02-21 07:56:00 Juan Klein Ga thodist HC COMPLETE BLD COUNT 2019-02-21 07:56:00 Juan Klein Alevism W/AUTO DIFF MAGNESIUM LEVEL 2019-02-21 07:56:00 Juan Klein Ga thodist PHOSPHORUS LEVEL 2019-02-21 07:56:00 Juan Klein ethodist URIC ACID LEVEL 2019-02-21 07:56:00 Juan Klein Ga thodist LDH 2019-02-21 07:56:00 Juan Klein Ga thodist URINALYSIS SCREEN AND 2019-02-21 07:56:00 Juan Klein Alevism MICROSCOPY, WITH REFLEX TO CULTURE CREATININE LEVEL, URINE, 2019-02-21 07:56:00 Juan Klein Alevism RANDOM PROTEIN, URINE, RANDOM 2019-02-21 07:56:00 Juan Klein [facility] COMPREHENSIVE METABOLIC 2019-02-21 07:56:00 Juan Klein PANEL CYCLOSPORINE LEVEL, 2019-02-21 07:56:00 Juan Klein Alevism RANDOM ESTIMATED GFR 2019-02-21 07:56:00 Juan Klein Ga thodist Plan of Care Planned Activity Planned Date Details Comments Source Future Scheduled 2019-12-13 INFLUENZA VACCINE Lito n Alevism Test 00:00:00 [code = INFLUENZA VACCINE] Future Scheduled 2016-02-28 COLONOSCOPY SCREENING Victorino stinson [facility] Test 00:00:00 [code = COLONOSCOPY SCREENING] Future Scheduled 2016-02-28 SHINGLES VACCINES Lito n Alevism Test 00:00:00 (#1) [code = SHINGLES VACCINES (#1)] Encounters Start End Encounter Admission Attending Care Care Encounter Source Date/Time Date/Time Type Type Clinicians Facility Department ID 2019-07-04 2019-07-04 Outpatient Usha FABIAN [facility] [id number] [place] 00:00:00 00:00:[address] Results Test Description Test Time Test Comments Results Result Comments Source SARS-CoV2/RT-PCR ([facility] & Ref Labs) 2019-09-17 04:32:00 Test Item Value Reference Range Interpretation Comme nts SARS-COV2/RT-PCR (test code = Not Detected Not Detected, Negative 97305-3) [facility]-COV-2 [facility] (test code = 09732-0) CATRACHO (test code = CATRACHO) Negative results do not preclude SARS-CoV-2 infection and should not be used as the sole basis for patient management decisions. Negative results must be combined with clinical observations, patient history, and epidemiological information. A false negative result may occur if a specimen is improperly collected, transported or handled. The limit of detection for this assay is 250 copies/mL. This SARS CoV-2 test is a rapid, real-time RT-PCR test intended for the qualitative detection of nucleic acid from SARS-CoV-2 in a nasopharyngeal swab specimen collected from individuals suspected of COVID-19 by their healthcare provider. This test has not been Food and Drug Administration (FDA) cleared or approved and has been authorized by FDA under an Emergency Use Authorization (EUA). This EUA will be effective until the declaration that circumstances exist justifying the authorization of the emergency use of in vitro diagnostic tests for detection and/or diagnosis of COVID-19 is terminated under Section 564(b)(2) of the Act or the EUA is revoked under Section 564(g) of the Act. Fact Sheet for Healthcare Providers:https://www.[employer]/Documents/Xpert%20Xpress %20SARS%20CoV-2/Fact%20Sheets /302-2162%10FLGE-NSV-3%20HEAL THCARE%20PROVIDERS%20FACT%20S HEET.pdf Fact Sheet for Healthcare Patients:https://www.[employer]/Documents/Xpert%20Xpress% 20SARS%20CoV-2/Fact%20Sheets/ 3023801%00PBDT-VOO-7%20PATIE NT%20FACT%20SHEET.pdf Performing Laboratory:[facility] [place] [address] [facility] REF LABS)2019-09-17 04:32:00 Test Item Value Reference Range Interpretation Comments SARS-COV2/RT-PCR (test Not Detected Not Detected, Negative code = 1500122) SARS-COV-2 PERFORMING LAB [facility] (test code = 8500885) Negative results do not preclude SARS-CoV-2 infection and should not be used as the sole basis for patient management decisions. Negative results must be combined with clinical observations, patient history, and epidemiological information. A false negative result may occur if a specimen is improperly collected, transported or handled.The limit of detection for this assay is 250 copies/mL.This SARS CoV-2 test is a rapid, real-time RT-PCR test intended for the qualitative detection of nucleic acid from SARS-CoV-2 in a nasopharyngeal swab specimen collected from individuals suspected of COVID-19 by their healthcare provider.This test has not been Food and Drug Administration (FDA) cleared or approved and has been authorized by FDA under an Emergency Use Authorization (EUA). This EUA will be effective until the declaration that circumstances exist justifying the authorization of the emergency use of in vitro diagnostic tests for detection and/or diagnosis of COVID-19 is terminated under Section 564(b)(2) of the Act or the EUA is revoked under Section 564(g) of the Act.Fact Sheet for Healthcare Pro viders:https://www.[employer]/Documents/Xpert%20Xpress%20SARS%20CoV-2/Fact%20Sh eets/3023802%10HXRY-SGB-4%20HEALTHCARE%20PROVIDERS%20FACT%20SHEET.pdfFact Sheet for Healthcare Patients:https://www.[employer] id.[employer]/Documents/Xpert%20Xpress%20SARS%20CoV-2/Fact%20Sheets/3023801%20SARS-COV -2%20PATIENT%20FACT%20SHEET.pdfPerforming Laboratory:[facility], [place] [address]Yerzygktezzv level, [id number] 13:56:52 Test Item Value Reference Interpretation Comments Range Cyclosporine 140 ng/mL Unless administ ered by (test code = continuous IV d [place], [place] [address]-1) purple top tube just before the next dose. Ther apeutic range of approximately 1 00-500 varies mainly with typ e of transplant,use of other immunosuppressi ve agents, and evidence of tox icity or rejection. Test performed using [employer] t chemiluminescen tmicroparticle immunoassay for Cyclosporine on the [employer] i System. [facility] [id number] 11:43:07 Test Item Value Reference Range Interpretation Comments Sodium (test code = 136 135- 148 mEq/L 2951-2) Potassium (test code = 4.3 3.5- 5.0 mEq/L 2823-3) Chloride (test code = 99 98- 112 mEq/L 2075-0) CO2 (test code = 2027-9) 24 24- 31 mEq/L Anion gap (test code = 13@ANIO 7- 15 mEq/L 86438-7) BUN (test code = 3094-0) 18 mg/dL 6-20 Creatinine (test code = 1.31 mg/dL 0.7-1.2 H 2160-0) Glucose (test code = 108 mg/dL 65-99 H 2345-7) Calcium (test code = 10.5 mg/dL 8.3-10.2 H 90785-6) Protein (test code = 8.2 g/dL 6.3-8.3 -[place] n 2885-2) 4.6-7.0 g/dL1 week 4.4-7 .6 g/dL7 months-1y ear 5.1-7 .3 g/dL1-2 years 5.6-7 .5 g/dL>3 years 6.0-8 .0 g/mX10-963 6.3-8 .3 g/dL Albumin (test code = 3.8 g/dL 3.5-5 1751-7) A/G ratio (test code = 0.9 0.7-3.8 1759-0) Alkaline phosphatase 73 U/L 40-129 (test code = 6768-6) AST (test code = 1920-8) 20 U/L 10-50 ALT (test code = 1742-6) 29 U/L 5-50 Total bilirubin (test 0.6 mg/dL 0-1.2 code = 1975-2) Lab Interpretation (test Abnormal code = 76896-1) Kavon [id number] 11:43:07 Test Item Value Reference Range Interpretation Comments LDH (test code = 04894-2) 167 U/L 87-225 [facility] [id number] 11:43:07 Test Item Value Reference Range Interpretation Comments Magnesium (test code = 62234-8) 2.1 mg/dL 1.6-2.6 [facility] MethodistPhosphorus [id number] 11:43:07 Test Item Value Reference Range Interpretation Comments Phosphorus (test code = 2777-1) 2.0 mg/dL 2.4-4.5 L Lab Interpretation (test code = Abnormal 55267-9) Kavon MethodistUric acid [id number] 11:43:07 Test Item Value Reference Range Interpretation Comments Uric acid (test code = 3084-1) 5.8 mg/dL 3.4-7 [facility] MethodistEstimated [id number] 11:43:07 Test Item Value Reference Range Interpretation Comments Estimated GFR (test 71 mL/min/1.73 m2 [facility] code = 5488) InterpretationG 1 >=90 Normal or highG2 60-89 Mildly zrhsfphgkX7l 45-59 Mildly to mode rately tilcbgscjB9t 30-44 Moderately to severely decreasedG4 15-29 Severely decre asedG5 <15 Kidn ey failureThe eGFR was calculated maryuri g the Chronic Kidney Disease Epidemiology Co llaboration (CKD-EPI) equat ion. Interpretation is based on recommendations of the National Kidney Foundation-Kidn ey Disease Outcomes Qualit y Initiative (NKF-KDOQI) pub lished in 2014. [facility] MethodistProtein, urine, [id number] 11:11:54 Test Item Value Reference Range Interpretation Comments Protein, urine random (test code = 373 mg/dL 2888-6) [facility] MethodistCreatinine level, urine, [id number] 11:00:13 Test Item Value Reference Range Interpretation Comments Creatinine, urine, random (test 298 mg/dL code = 78707-8) [facility] MethodistUrine [id number] 10:16:27 Test Item Value Reference Range Interpretation Comments Urine culture (test SEE COMMENT Bacteriu deandre screen code = 4358318) negative. [facility] MethodistUrinalysis screen and microscopy, with reflex to culture 2019-07-04 10:16:25 Test Item Value Reference Range Interpretation Comments Specimen site (test code = Clean catch 4878334) Color, UA (test code = 5778-6) Dark Yellow Appearance, UA (test code = Clear 5767-9) Specific gravity, UA (test code = 1.027 1.001-1.035 5811-5) pH, UA (test code = 5803-2) 5.0 5.0-8.5 Protein, UA (test code = 57064-8) 3+ Negative A Glucose, UA (test code = 17044-3) Negative Negative Ketones, UA (test code = 2514-8) Negative Negative Bilirubin, UA (test code = Negative Negative 5770-3) Blood, UA (test code = 5794-3) Moderate Negative A Nitrite, UA (test code = 5802-4) Negative Negative Urobilinogen, UA (test code = 4.0 <2.0 A 91885-4) Leukocyte esterase, UA (test code Negative Negative = 5799-2) Epithelial cells, UA (test code = <1 /HPF 5787-7) WBC, UA (test code = 5821-4) 2 0- 1 /HPF H RBC, UA (test code = 19988-5) 9 0- 5 /HPF H Bacteria, UA (test code = None seen None seen 82482-8) Yeast, UA (test code = 49753-2) None seen Yeast with pseudohyphae, UA (test None seen code = 33117-9) Hyaline casts, UA (test code = 3 /LPF 5796-8) Lab Interpretation (test code = Abnormal 36983-8) [facility] MethodistCBC with platelet and wjyqsfdbguhg0336-71-78 10:02:15 Test Item Value Reference Range Interpretation Comments WBC (test code = 87400-7) 7.79 4.50- 11.00 k/uL RBC (test code = 24230-3) 4.73 m/uL 4.4-6 HGB (test code = 718-7) 15.8 g/dL 14-18 HCT (test code = 4544-3) 45.4 % 41-51 MCV (test code = 787-2) 96.0 fL 82-100 MCH (test code = 785-6) 33.4 pg 27-34 MCHC (test code = 786-4) 34.8 g/dL 31-37 RDW - SD (test code = 39.6 fL 37-55 55003-5) MPV (test code = 13865-6) 9.3 fL 8.8-13.2 Platelet count (test code 283 150- 400 k/uL = 58400-1) Nucleated RBC (test code 0.00 /100 WBC = 74912-2) Neutrophils (test code = 60.4 % 39-69 83283-5) Lymphocytes (test code = 27.1 % 25-45 92761-8) Monocytes (test code = 10.4 % 0-10 H 74744-5) Eosinophils (test code = 1.0 % 0-5 43538-9) Basophils (test code = 0.6 % 0-1 32041-7) Immature granulocytes 0.5 % 0-1 "Immat ure (test code = 79471-1) granul ocytes" (promyelocytes, myelocytes, metamyelocytes) Lab Interpretation (test Abnormal code = 71548-9) Kavon TrivediFK506 Tacrolimus level, [id number] 15:50:23 Test Item Value Reference Range Interpretation Comments FK506 level (test <2.0 ng/mL Therapeuti c range 5-20 ng/mL code = 99006-1) for 12 hour trough. The range varies dependin g on the organ transplanted, t geovanny after transplantation and co-administered immunosuppressa nt therapies. Please use clin ical judgment to interpret te st result.Test performed using [employer] chemi luminescent microparticle i mmunoassay for Tacrolimus on t he [employer] i System. Kavon Trivedi
--- OUTSIDE RECORDS SUMMARY | 2019-11-23 17:13 | XMS REPORT | Clinical Summary ---
:1965 Author Organization [facility] Address [address] [place] [address] Care Team Providers Name Role Phone Satish [...] (HCC); Disorder of mariela sphorus metabolism after 11/22/2018 Social History Tobacco Use Types Packs/Day Years [...] 02/28/2016 SHINGLES VACCINES (#1) 02/28/2016 INFLUENZA VACCINE 12/13/2019 Procedures Procedure Name Priority Date/Time Associated Comments [...] 8:54 Resu lts for this RANDOM AM MC KAY MACHINE OPERATOR procedure are i n the results section. ESTIMATED GFR Routine 03/02/2019 8:54 Results fo r this AM MC KAY MACHINE OPERATOR procedure are i n the results section. FK506 TACROLIMUS Routine 03/02/2019 8:54 Kidney replaced by R esults for this LEVEL, RANDOM AM MC KAY MACHINE OPERATOR transplant procedure are in Essential the results hypertension, section. malignant Proteinuria, unspecified type Anemia of chronic renal failure, unspecified CKD stage Disorder of phosphorus metabolism Hypermagnesemia Chronic kidney disease, stage III (moderate) (HCC) PROTEIN, URINE, RANDOM Routine 03/02/2019 8:54 Kidney replace d by Results for this AM MC KAY MACHINE OPERATOR transplant procedure are in Essential the results hypertension, section. malignant Proteinuria, unspecified type Anemia of chronic renal failure, unspecified CKD stage Disorder of phosphorus metabolism Hypermagnesemia Chronic kidney disease, stage III (moderate) (HCC) CREATININE LEVEL, Routine 03/02/2019 8:54 Kidney replaced by Results for this URINE, RANDOM AM MC KAY MACHINE OPERATOR transplant procedure are in Essential the results hypertension, section. malignant Proteinuria, unspecified type Anemia of chronic renal failure, unspecified CKD stage Disorder of phosphorus metabolism Hypermagnesemia Chronic kidney disease, stage III (moderate) (HCC) URINALYSIS SCREEN AND Routine 03/02/2019 8:54 Kidney replaced by Results for this MICROSCOPY, WITH AM MC KAY MACHINE OPERATOR transplant procedure are in REFLEX TO CULTURE Essential the result s hypertension, section. malignant Proteinuria, unspecified type Anemia of chronic renal failure, unspecified CKD stage Disorder of phosphorus metabolism Hypermagnesemia Chronic kidney disease, stage III (moderate) (HCC) LDH Routine 03/02/2019 8:54 Kidney replaced by Resul ts for this AM MC KAY MACHINE OPERATOR transplant procedure are in Essential the results hypertension, section. malignant Proteinuria, unspecified type Anemia of chronic renal failure, unspecified CKD stage Disorder of phosphorus metabolism Hypermagnesemia Chronic kidney disease, stage III (moderate) (HCC) URIC ACID LEVEL Routine 03/02/2019 8:54 Kidney replaced by Re sults for this AM MC KAY MACHINE OPERATOR transplant procedure are in Essential the results hypertension, section. malignant Proteinuria, unspecified type Anemia of chronic renal failure, unspecified CKD stage Disorder of phosphorus metabolism Hypermagnesemia Chronic kidney disease, stage III (moderate) (HCC) PHOSPHORUS LEVEL Routine 03/02/2019 8:54 Kidney replaced by R esults for this AM MC KAY MACHINE OPERATOR transplant procedure are in Essential the results hypertension, section. malignant Proteinuria, unspecified type Anemia of chronic renal failure, unspecified CKD stage Disorder of phosphorus metabolism Hypermagnesemia Chronic kidney disease, stage III (moderate) (HCC) MAGNESIUM LEVEL Routine 03/02/2019 8:54 Kidney replaced by Re sults for this AM MC KAY MACHINE OPERATOR transplant procedure are in Essential the results hypertension, section. malignant Proteinuria, unspecified type Anemia of chronic renal failure, unspecified CKD stage Disorder of phosphorus metabolism Hypermagnesemia Chronic kidney disease, stage III (moderate) (HCC) HC COMPLETE BLD COUNT Routine 03/02/2019 8:54 Kidney replaced by Results for this W/AUTO DIFF AM MC KAY MACHINE OPERATOR transplant procedure are in Essential the results hypertension, section. malignant Proteinuria, unspecified type Anemia of chronic renal failure, unspecified CKD stage Disorder of phosphorus metabolism Hypermagnesemia Chronic kidney disease, stage III (moderate) (HCC) COMPREHENSIVE Routine 03/02/2019 8:54 Kidney replaced by Resu lts for this METABOLIC PANEL AM MC KAY MACHINE OPERATOR transplant procedure are in Essential the results hypertension, section. malignant Proteinuria, unspecified type Anemia of chronic renal failure, unspecified CKD stage Disorder of phosphorus metabolism Hypermagnesemia Chronic kidney disease, stage III (moderate) (HCC) URINE CULTURE Routine 03/02/2019 8:54 Results fo r this AM MC KAY MACHINE OPERATOR procedure are i n the results section. ESTIMATED GFR Routine 02/21/2019 7:56 Results fo r this AM MC KAY MACHINE OPERATOR procedure are i n the results section. CYCLOSPORINE LEVEL, Routine 02/21/2019 7:56 Kidney replaced b y Results for this RANDOM AM MC KAY MACHINE OPERATOR transplant procedure are in Anemia of chronic the result s renal failure, section. unspecified CKD stage Hypermagnesemia Proteinuria, unspecified type Essential hypertension, malignant Chronic kidney disease, stage III (moderate) (HCC) Disorder of phosphorus metabolism COMPREHENSIVE Routine 02/21/2019 7:56 Kidney replaced by Resu lts for this METABOLIC PANEL AM MC KAY MACHINE OPERATOR transplant procedure are in Anemia of chronic the result s renal failure, section. unspecified CKD stage Hypermagnesemia Proteinuria, unspecified type Essential hypertension, malignant Chronic kidney disease, stage III (moderate) (HCC) Disorder of phosphorus metabolism PROTEIN, URINE, RANDOM Routine 02/21/2019 7:56 Kidney replace d by Results for this AM MC KAY MACHINE OPERATOR transplant procedure are in Anemia of chronic the result s renal failure, section. unspecified CKD stage Hypermagnesemia Proteinuria, unspecified type Essential hypertension, malignant Chronic kidney disease, stage III (moderate) (HCC) Disorder of phosphorus metabolism CREATININE LEVEL, Routine 02/21/2019 7:56 Kidney replaced by Results for this URINE, RANDOM AM MC KAY MACHINE OPERATOR transplant procedure are in Anemia of chronic the result s renal failure, section. unspecified CKD stage Hypermagnesemia Proteinuria, unspecified type Essential hypertension, malignant Chronic kidney disease, stage III (moderate) (HCC) Disorder of phosphorus metabolism URINALYSIS SCREEN AND Routine 02/21/2019 7:56 Kidney replaced by Results for this MICROSCOPY, WITH AM MC KAY MACHINE OPERATOR transplant procedure are in REFLEX TO CULTURE Anemia of chronic the r esults renal failure, section. unspecified CKD stage Hypermagnesemia Proteinuria, unspecified type Essential hypertension, malignant Chronic kidney disease, stage III (moderate) (HCC) Disorder of phosphorus metabolism LDH Routine 02/21/2019 7:56 Kidney replaced by Resul ts for this AM MC KAY MACHINE OPERATOR transplant procedure are in Anemia of chronic the result s renal failure, section. unspecified CKD stage Hypermagnesemia Proteinuria, unspecified type Essential hypertension, malignant Chronic kidney disease, stage III (moderate) (HCC) Disorder of phosphorus metabolism URIC ACID LEVEL Routine 02/21/2019 7:56 Kidney replaced by Re sults for this AM MC KAY MACHINE OPERATOR transplant procedure are in Anemia of chronic the result s renal failure, section. unspecified CKD stage Hypermagnesemia Proteinuria, unspecified type Essential hypertension, malignant Chronic kidney disease, stage III (moderate) (HCC) Disorder of phosphorus metabolism PHOSPHORUS LEVEL Routine 02/21/2019 7:56 Kidney replaced by R esults for this AM MC KAY MACHINE OPERATOR transplant procedure are in Anemia of chronic the result s renal failure, section. unspecified CKD stage Hypermagnesemia Proteinuria, unspecified type Essential hypertension, malignant Chronic kidney disease, stage III (moderate) (HCC) Disorder of phosphorus metabolism MAGNESIUM LEVEL Routine 02/21/2019 7:56 Kidney replaced by Re sults for this AM MC KAY MACHINE OPERATOR transplant procedure are in Anemia of chronic the result s renal failure, section. unspecified CKD stage Hypermagnesemia Proteinuria, unspecified type Essential hypertension, malignant Chronic kidney disease, stage III (moderate) (HCC) Disorder of phosphorus metabolism HC COMPLETE BLD COUNT Routine 02/21/2019 7:56 Kidney replaced by Results for this W/AUTO DIFF AM MC KAY MACHINE OPERATOR transplant procedure are in Anemia of chronic the result s renal failure, section. unspecified CKD stage Hypermagnesemia Proteinuria, unspecified type Essential hypertension, malignant Chronic kidney disease, stage III (moderate) (HCC) Disorder of phosphorus metabolism URINE CULTURE Routine 02/21/2019 7:56 Results fo r this AM MC KAY MACHINE OPERATOR procedure are i n the results section. after 11/22/2018 Results Estimated GFR (07/04/2019 9:01 AM CDT)Only the most recent of3 resultswithin the time period is included. Pathologist [facility] Estimated GFR 71 mL/min/1.73 [facility] Comment: m2 HOSPITAL Catergory Units Interpretation G1 [...] published in 2014. Specimen Performing Organization Address City/[facility]/Zipcode Phone Number [facility] DEPARTMENT OF PATHOLOGY AND [address] [place] [phone] Cyclosporine level, random (07/04/2019 9:01 AM CDT)Only the most recent of3 resultswithin the time period is included. Pathologist [facility] Cyclosporine 140 ng/mL [facility] Comment: HOSPITAL Unless administered by continuous IV drip, collect a p urple top tube just before the next dose. Therapeutic range of approximately 100-500 varies mainly with type of trans plant, use of other immunosuppressive agents, and evidence of toxicity or rejection. Test performed using [employer] chemiluminescent microparticle immunoassay for Cyclosporine on the [employer] i System. Specimen Blood Performing Organization Address City/State/Zipcode Phone Number [facility] DEPARTMENT OF PATHOLOGY AND [address] [place] [address] [address] CBC with platelet and differential (07/04/2019 9:01 AM CDT)Only the most recent of3 resultswithin the time period is included. Pathologist [facility] WBC 7.79 4.50 - 11.00 [facility] RBC 4.73 4.40 - [address].00 [facility] HGB 15.8 14.0 - 18.0 [facility] g/dL HOSPITAL HCT 45.4 41.0 - 51.0 % [facility] MCV 96.0 82.0 - 100.0 [facility] MCH 33.4 27.0 - 34.0 pg [facility] MCHC 34.8 31.0 - 37.0 [facility] g/dL [facility] RDW - SD 39.6 37.0 - 55.0 fL [facility] MPV 9.3 8.8 - 13.2 fL [facility] Platelet count 283 150 - 400 k/uL [facility] Nucleated RBC 0.00 /100 WBC [facility] Neutrophils 60.4 39.0 - 69.0 % [facility] Lymphocytes 27.1 25.0 - 45.0 % [facility] Monocytes 10.4 (H) 0.0 - 10.0 % [facility] Eosinophils 1.0 0.0 - 5.0 % [facility] Basophils 0.6 0.0 - 1.0 % [facility] Immature granulocytes 0.5Comment: 0.0 - 1.0 % [facility] "[facility] granulocytes" (promyelocytes , myelocytes, metamyelocytes ) Specimen Blood Performing Organization Address City/[facility] Phone Number [facility] DEPARTMENT OF PATHOLOGY AND [address] [place] [phone] [address] Uric acid level (07/04/2019 9:01 AM CDT)Only the most recent of3 resultswithin the time period is included. Pathologist Sig nature Uric acid 5.8 3.4 - 7.0 mg/dL [facility] Specimen Blood Performing Organization Address City/[facility] Phone Number [facility] DEPARTMENT OF PATHOLOGY AND [address] [place] [address] [phone] [address] Phosphorus level (07/04/2019 9:01 AM CDT)Only the most recent of3 resultswithin the time period is included. Pathologist Sig nature Phosphorus 2.0 (L) 2.4 - 4.5 mg/dL [facility] Specimen Blood Performing Organization Address City/[facility] Phone Number [facility] DEPARTMENT OF PATHOLOGY AND [address] [place] [address] [phone] [address] Magnesium level (07/04/2019 9:01 AM CDT)Only the most recent of3 resultswithin the time period is included. Pathologist Sig nature Magnesium 2.1 1.6 - 2.6 mg/dL [facility] L Specimen Blood Performing Organization Address City/[facility] Phone Number [facility] DEPARTMENT OF PATHOLOGY AND [address] [place] [address] [address] LDH (07/04/2019 9:01 AM CDT)Only the most recent of3 resultswithin the time period is included. Pathologist Sig nature LDH 167 87 - 225 U/L [facility] Specimen Blood Performing Organization Address City/[facility] Phone Number [facility] DEPARTMENT OF PATHOLOGY AND [address] [place], [place] [phone] [address] [address] Comprehensive metabolic panel (07/04/2019 9:01 AM CDT)Only the most recent of3 resultswithin the time period is included. Sodium 136 135 - 148 [facility] mEq/L [facility] Potassium 4.3 3.5 - 5.0 [facility] mEq/L [facility] Chloride 99 98 - 112 [facility] mEq/L [facility] CO2 24 24 - 31 mEq/L [facility] Anion gap 13@ANIO 7 - 15 mEq/L [facility] BUN 18 6 - 20 mg/dL [facility] Creatinine 1.31 (H) 0.70 - 1.20 [facility] mg/dL [facility] Glucose 108 (H) 65 - 99 mg/dL [facility] Calcium 10.5 (H) 8.3 - 10.2 [facility] mg/dL HOSPITAL Protein 8.2 6.3 - 8.3 [facility] Comment: g/dL [facility] - [place] 4.6-7.0 g/dL 1 week 4.4-7.6 g/dL 7 months-1year 5.1-7.3 g/dL 1-2 years 5.6-7.5 g/dL >3 years 6.0-8.0 g/dL 18-150 6.3-8.3 g/dL Albumin 3.8 3.5 - 5.0 [facility] g/dL HOSPITAL A/G ratio 0.9 0.7 - 3.8 [facility] Alkaline phosphatase 73 40 - 129 U/L [facility] AST 20 10 - 50 U/L [facility] ALT 29 5 - 50 U/L [facility] Total bilirubin 0.6 0.0 - 1.2 [facility] mg/dL HOSPITAL Specimen Blood Performing Organization Address City/[facility] Phone Number [facility] DEPARTMENT OF PATHOLOGY AND [address] [place] [address] [phone] [address] Urinalysis screen and microscopy, with reflex to culture (07/04/2019 8:56 AM CDT)Only the most recent of3 resultswithin the time period is included. Specimen site Clean catch [facility] Color, UA Dark Yellow [facility] Appearance, UA Clear [facility] Specific gravity, UA 1.027 1.001 - 1.035 [facility] pH, UA 5.0 5.0 - 8.5 [facility] Protein, UA 3+ (A) Negative [facility] Glucose, UA Negative Negative [facility] Ketones, UA Negative Negative [facility] Bilirubin, UA Negative Negative [facility] Blood, UA Moderate (A) Negative [facility] Nitrite, UA Negative Negative [facility] Urobilinogen, UA 4.0 (A) <2.0 [facility] Leukocyte esterase, Negative Negative [facility] Epithelial cells, UA <1 /HPF [facility] WBC, UA 2 (H) 0 - 1 /HPF [facility] RBC, UA 9 (H) 0 - 5 /HPF [facility] Bacteria, UA None seen None seen [facility] Yeast, UA None seen [facility] Yeast with None seen [facility] pseudohyphae, [facility] Hyaline casts, UA 3 /LPF [facility] Specimen Urine Performing Organization Address City/[facility] Phone Number [facility] DEPARTMENT OF PATHOLOGY AND [address] [place] [address] [phone] [address] Protein, urine, random (07/04/2019 8:56 AM CDT)Only the most recent of3 results within the time period is included. Pathologist Sig nature Protein, urine random 373 mg/dL [facility] Specimen Urine Performing Organization Address City/[facility] Phone Number [facility] DEPARTMENT OF PATHOLOGY AND [address] [place] [address] [place] [phone] Creatinine level, urine, random (07/04/2019 8:56 AM CDT)Only the most recent of 3 resultswithin the time period is included. Pathologist Sig nature Creatinine, urine, 298 mg/dL [facility] Specimen Urine Performing Organization Address City/[facility] Phone Number [facility] DEPARTMENT OF PATHOLOGY AND [address] [place] [phone] Urine culture (07/04/2019 8:56 AM CDT)Only the most recent of3 resultswithin the time period is included. Pathologist Sig nature Urine culture SEE COMMENTComment: [facility] Bacteriuria screen HOSPITAL negative. Specimen Performing Organization Address City/[facility] Phone Number [facility] DEPARTMENT OF PATHOLOGY AND [address] [place] [phone] [id number] Tacrolimus level, random (03/02/2019 8:54 AM MC KAY MACHINE OPERATOR) FK506 level <2.0 ng/mL [facility] Comment: HOSPITAL Therapeutic range 5-20 ng/mL for 12 hour trough. The r caleb varies depending on the organ transplanted, time after transplantation and co-administered immunosuppressant therapies. Please use clinical judgment to interpret test result. Test performed using [employer] chemiluminescent microparticle immunoassay for Tacrolimus on the [employer] i System. Specimen Blood Performing Organization Address City/State/Zipcode Phone Number [facility] DEPARTMENT OF PATHOLOGY AND [address] [place] [phone] after 11/22/2018 Insurance Payer Benefit Plan / Subscriber ID Effective Dates Phone Addre ss Type Group MEDICARE MEDICARE PART A xxxxxxxxxxx 1993-Present [facility] [place] Medicare AND B
--- OUTSIDE RECORDS SUMMARY | 2019-11-23 17:13 | XMS REPORT | Clinical Summary ---
:1965 Author Organization [facility] Address [address] [place] [address] Care Team Providers Name Role Phone Akin Green MD Primary Care Provider Unavailable Allergies No Known Allergies Medications Not on file Active Problems Not on file Encounters Date Type Specialty Care Team Description 09/17/2019 Lab Requisition Lab after 11/22/2018 Family History Medical History Relation Name Comments [...] file Plan of Treatment Not on file Procedures Procedure Name Priority Date/Time Associated Diagnosis Comme nts SARS-COV2/RT-PCR Routine 09/16/2019 9:40 PM Resu lts for this ([facility]) CDT procedure are in the results section. after 11/22/2018 Results SARS-CoV2/RT-PCR ([facility]) (09/16/2019 9:40 PM CDT) SARS-COV2/RT-PCR Not Detected Not Detected, Negative [facility] SARS-COV-2 PERFORMING LAB [facility] Specimen Other Narrative Performed At Negative results do not preclude SARS-CoV-2 [facility] infection and should not be used as [...] of the Act. Fact Sheet for Healthcare Providers: https://www.Nveloped/Documents/Xpert%20Xpre ss%20SARS%20CoV-2/Fact%20Sheets/3023802%20SAR S-COV-2%20HEALTHCARE%20PROVIDERS%20FACT%20SHEE T.pdf Fact Sheet for Healthcare Patients: https://www.Nveloped/Documents/Xpert%20Xpre ss%20SARS%20CoV-2/Fact%20Sheets/3023801%20SAR S-COV-2%20PATIENT%20FACT%20SHEET.pdf Performing Laboratory: [address] [place] [address] Performing Organization Address City/State/Zipcode Phone Number [address] [address] CENTER after 11/22/2018 Insurance Payer Benefit Plan / Group Subscriber ID Type Phone A ddress [employer] [facility] [employer] xxxxxxxxx
--- NOTE | 2019-11-23 19:15 | RAD REPORT ---
EXAM DESCRIPTION: CTSpine Lumbar Wo Con11/23/2019 7:00 pm CLINICAL HISTORY: Back pain/radiculopathy COMPARISON: None TECHNIQUE: Computed axial tomography lumbar spine was obtained with coronal and sagittal reconstruct ion. All CT scans are performed using dose optimization technique as appropriate and may include automated exposure control or mA/KV adjustment according to patient size. FINDINGS: No fracture. No dislocation No bony destructive lesion is noted. Right lateral calcified disc herniation T12-L1 results in marked narrowing of the right neural forami na Mild to moderate spondylosis involves remainder of the lumbar spine. No high-grade central stenosis IMPRESSION: Negative for a lumbar fracture. Right lateral calcified disc herniation T12-L1 results in marked right foraminal stenosis If clinically indicated MRI can be obtained for further evaluation as it is more sensitive in detecti ng spinal canal/foraminal pathology
[2019-11-23] MEDS ORDERED: methocarbamoL 500 MG TAB ONE (19:31)
[2019-11-23] MEDS ORDERED: ONDANSETRON 4 MG (ODT) TAB ONE (19:31)
--- NOTE | 2019-11-23 19:33 | RAD REPORT ---
EXAM DESCRIPTION: CTThoracic Spine W/o Cont11/23/2019 7:00 pm CLINICAL HISTORY: Back pain with radiculopathy COMPARISON: None TECHNIQUE: Computed axial tomography of thoracic spine was obtained with coronal and sagittal recons truction. All CT scans are performed using dose optimization technique as appropriate and may include automated exposure control or mA/KV adjustment according to patient size. FINDINGS: No fracture is seen. No dislocation Mild soft tissue surrounds right aspect of the T8 vertebral body. No bony destructive lesion is seen. Prominent anterolateral osteophytes extend off of several mid to lower thoracic vertebral bodies. IMPRESSION: Negative for a thoracic fracture Mild soft tissue surrounds the right aspect of the T8 vertebral body. This can be associated with inf lammation/infection. MRI of the thoracic spine recommended
[2019-11-23 21:13] LABS: Urine Blood 2+ (NEG); Urine Glucose NEGATIVE (NEG); Urine Protein 3+ (NEG); Urine Specific Gravity >1.030 (1.005-1.030); Urine pH 5.5 (5.0-7.0)
--- NOTE | 2019-11-23 22:30 | EDPHYS ---
Physician Documentation [facility] Name: Shoaib Freitas Jr Age: 54 yrs Sex: Male : 1965 Arrival Date: 11/23/2019 Time: 17:13 Bed 23 Private MD: ED Physician Panfilo Peter HPI: 11/22 18:21 This 54 yrs old Black Male presents to ER via Ambulatory with complaints of Back Pain. kdr 18:21 The patient presents with pain that is acute, with no known mechanism of injury. The kdr symptoms are located in the low back, left trapezius, right trapezius, left scapular area, right scapular area, left subscapular area, right subscapular area, thoracic area, low back area, mid back area and right mid back. Onset: The symptoms/episode began/occurred gradually, 1 week(s) ago. The pain does not radiate. Associated signs and symptoms: The patient has no apparent associated signs or symptoms, Pertinent negatives: constipation, dysuria, headache, hematuria, incontinence, nausea, numbness, tingling, urinary retention, vomiting, weakness. The problem was sustained from unknown cause. Modifying factors: The patient symptoms are alleviated by Laying on left side, the patient symptoms are aggravated by any movement, movement. Severity of symptoms: At their worst the symptoms were mild, in the emergency department the symptoms are unchanged. The patient has not experienced similar symptoms in the past. The patient has not recently seen a physician. The patient denies any specific injury or cause. Historical: - Allergies: 17:53 No Known Allergies; ks7 - Home Meds: 17:53 valsartan 40 mg Oral tab 1 tab once daily for Hypertension [Active]; prednisone 5 mg ks7 Oral tab once daily [Active]; diltiazem HCl 240 mg Oral cpER 1 cap once daily for Hypertension [Active]; - PMHx: 17:53 Gall Stones; history of dialysis; Hypertension; kidney transplant; Pancreatitis; ks7 - PSHx: 17:53 Kidney transplant; ks7 - Immunization history:: Adult Immunizations up to date. - Social history:: Smoking status: Patient reports the use of cigarette tobacco products, Patient/guardian denies using tobacco, the patient reports quitting approximately 20 years ago. ROS: 18:21 Constitutional: Negative for fever, chills, and weight loss, Eyes: Negative for injury, kdr pain, redness, and discharge, ENT: Negative for injury, pain, and discharge, Neck: Negative for injury, pain, and swelling, Cardiovascular: Negative for chest pain, palpitations, and edema, Respiratory: Negative for shortness of breath, cough, wheezing, and pleuritic chest pain, Abdomen/GI: Negative for abdominal pain, nausea, vomiting, diarrhea, and constipation, : Negative for injury, bleeding, discharge, and swelling, MS/Extremity: Negative for injury and deformity, Skin: Negative for injury, rash, and discoloration, Neuro: Negative for headache, weakness, numbness, tingling, and seizure activity. Psych: Negative for depression, anxiety, suicide ideation, homicidal ideation, and hallucinations, Allergy/Immunology: Negative for hives, rash, and allergies, Endocrine: Negative for neck swelling, polydipsia, polyuria, polyphagia, and marked weight changes, Hematologic/Lymphatic: Negative for swollen nodes, abnormal bleeding, and unusual bruising. 18:21 Back: Positive for pain at rest, pain with movement, of the left scapular area, right scapular area, left subscapular area, right subscapular area, thoracic area, low back area and mid back area. Exam: 18:21 Constitutional: This is a well developed, well nourished patient who is awake, alert, kdr and in no acute distress. Head/Face: Normocephalic, atraumatic. Eyes: Pupils equal round and reactive to light, extra-ocular motions intact. Lids and lashes normal. Conjunctiva and sclera are non-icteric and not injected. Cornea within normal limits. Periorbital areas with no swelling, redness, or edema. Neck: Trachea midline, no thyromegaly or masses palpated, and no cervical lymphadenopathy. Supple, full range of motion without nuchal rigidity, or vertebral point tenderness. No Meningismus. Chest/axilla: Normal chest wall appearance and motion. Nontender with no deformity. No lesions are appreciated. Cardiovascular: Regular rate and rhythm with a normal S1 and S2. No gallops, murmurs, or rubs. Normal PMI, no JVD. No pulse deficits. Respiratory: Lungs have equal breath sounds bilaterally, clear to auscultation and percussion. No rales, rhonchi or wheezes noted. No increased work of breathing, no retractions or nasal flaring. Abdomen/GI: Soft, non-tender, with normal bowel sounds. No distension or tympany. No guarding or rebound. No evidence of tenderness throughout. Skin: Warm, dry with normal turgor. Normal color with no rashes, no lesions, and no evidence of cellulitis. MS/ Extremity: Pulses equal, no cyanosis. Neurovascular intact. Full, normal range of motion. Neuro: Awake and alert, GCS 15, oriented to person, place, time, and situation. Cranial nerves II-XII grossly intact. Motor strength 5/5 in all extremities. Sensory grossly intact. Cerebellar exam normal. Normal gait. Psych: Awake, alert, with orientation to person, place and time. Behavior, mood, and affect are within normal limits. 18:21 Back: pain, that is mild, that is moderate, of the left scapular area, right scapular area, left subscapular area, right subscapular area, thoracic area, low back area and mid back area, ROM is painful, with all movement, normal spinal alignment noted, CVA tenderness, is absent, vertebral tenderness, is appreciated at thoracic spine and lumbar spine, Straight leg raises: pain bilaterally. Vital Signs: 17:49 BP 149 / 96; Pulse 81; Resp 18; Temp 99.1(O); Pulse Ox 98% on R/A; Weight 104.33 kg; ks7 Height 5 ft. 11 in. (180.34 cm); Pain 8/10; 19:28 BP 155 / 90; Pulse 74; Resp 18; Temp 99(O); Pulse Ox 100% on R/A; Pain 8/10; ks7 20:28 Pulse Ox 2% ; Pain 0/10; ks7 20:28 BP 163 / 95; Pulse 69; Resp 18; Temp 99(O); Pulse Ox 100% on R/A; Pain 6/10; ks7 20:30 Pulse Ox 100% ; Pain 2/10; ks7 21:15 BP 157 / 88; Pulse 90; Resp 18; Pulse Ox 100% on R/A; Pain 5/10; ks7 22:30 BP 150 / 83; Pulse 76; Resp 18; Temp 98.2(O); Pulse Ox 100% on R/A; Pain 4/10; ks7 17:49 Body Mass Index 32.08 (104.33 kg, 180.34 cm) ks7 MDM: 22:30 Patient medically screened. tw4 11/23 07:22 Data reviewed: vital signs, nurses notes, radiologic studies. Counseling: I had a kdr detailed discussion with the patient and/or guardian regarding: the historical points, exam findings, and any diagnostic results supporting the discharge/admit diagnosis, radiology results, the need for outpatient follow up. 11/22 19:15 Order name: Urine Dipstick--Ancillary (enter results) ar5 11/22 19:16 Order name: Urine Dipstick-Ancillary; Complete Time: 22:28 EDMS 11/22 18:16 Order name: CT Lumbar Spine Wo Con; Complete Time: 22:28 kdr 11/22 18:16 Order name: CT Thoracic Spine Wo Cont; Complete Time: 22:28 kdr 11/22 18:16 Order name: Urine Dipstick-Ancillary (obtain specimen); Complete Time: 19:14 kdr Administered Medications: 11/22 19:14 CANCELLED (VORB: MD change to PO/ODT): Zofran (Ondansetron) 4 mg IVP once; over 2 ks7 minutes 19:14 CANCELLED (VORB: MD change to PO): Robaxin 1 grams IVPB once over 1 hrs; (mix in NS 100 ks7 mL) 19:15 CANCELLED (VORB: MD change to IM): morphine 4 mg IVP once; RASS on ADMIN: Combtv4, Very ks7 Agttd3, Agttd2, Rstlss1, AlertClm0, Drwsy-1, Lt Sdtn-2, Mod Sdtn-3, Dp Sdtn-4, UnArsble-5 19:27 Drug: Robaxin 500 mg Route: PO; ks7 19:27 Drug: Robaxin 500 mg Route: PO; ks7 20:30 Follow up: Pulse Ox 100% ; Pain 2/10 Adult ks7 19:27 Drug: Ondansetron (Zofran) 4 mg Route: PO; ks7 19:28 Drug: morphine 4 mg Route: IM; Site: left deltoid; ks7 20:28 Follow up: Pulse Ox 2% ; Pain 0/10 Adult ks7 Disposition: 11/23 07:23 Co-signature as Attending Physician, Panfilo Peter MD I agree with the assessment and [facility] plan of care. Disposition: 11/23/19 22:30 Discharged to Home. Impression: Sprain of ligaments of thoracic spine. - Condition is Stable. - Discharge Instructions: Thoracic Strain, Form - Return To Work. - Prescriptions for Ibuprofen 800 mg Oral Tablet - take 1 tablet by ORAL route every 8 hours As needed take with food; 30 tablet. Tramadol 50 mg Oral Tablet - take 1 tablet by ORAL route every 8 hours as needed; 12 tablet. - Medication Reconciliation Form, Thank You Letter, Antibiotic Education, Prescription Opioid Use, Work release form form. - Follow up: Private Physician; When: Upon discharge from the Emergency Department; Reason: Recheck today's complaints, Continuance of care, Re-evaluation by your physician. - Problem is new. - Symptoms have improved. Signatures: Dispatcher [employer] EDMS Panfilo Peter MD MD [facility] [place] Mandujano MD MD tw4 Maria Gar RN RN ks7 Corrections: (The following items were deleted from the chart) 11/22 19:14 18:16 Zofran (Ondansetron) 4 mg IVP once; over 2 minutes [place]. [place] [id number] 19:14 18:16 Robaxin 1 grams IVPB once over 1 hrs; (mix in NS 100 mL) [place]. [place] [id number] 19:14 19:07 Zofran (Ondansetron) 4 mg IVP once; over 2 minutes [place]. [place] [id number] 19:14 19:08 Robaxin 1 grams IVPB once over 1 hrs; (mix in NS 100 mL) [place]. [place] [id number] 19:15 18:16 morphine 4 mg IVP once; RASS on ADMIN: Combtv4, Very Agttd3, Agttd2, Rstlss1, ks7 AlertClm0, Drwsy-1, Lt Sdtn-2, Mod Sdtn-3, Dp Sdtn-4, UnArsble-5 ordered. [facility] 19:15 19:14 morphine 4 mg IVP once; RASS on ADMIN: Combtv4, Very Agttd3, Agttd2, Rstlss1, ks7 AlertClm0, Drwsy-1, Lt Sdtn-2, Mod Sdtn-3, Dp Sdtn-4, UnArsble-5 ordered. ks7 22:39 22:30 11/23/2019 22:30 Discharged to Home. Impression: Sprain of ligaments of thoracic ks7 spine. Condition is Stable. Forms are Medication Reconciliation Form, Thank You Letter, Antibiotic Education, Prescription Opioid Use. Follow up: Private Physician; When: Upon discharge from the Emergency Department; Reason: Recheck today's complaints, Continuance of care, Re-evaluation by your physician. Problem is new. Symptoms have improved. tw4
--- NOTE | 2019-11-23 22:30 | ER ---
Nurse's Notes [facility] Name: Shoaib Freitas Jr Age: 54 yrs Sex: Male : 1965 Arrival Date: 11/23/2019 Time: 17:13 Bed 23 Private MD: Diagnosis: Sprain of ligaments of thoracic spine Presentation: 11/22 17:49 Chief complaint: Patient states: Back pain x 1 week. Pt states he woke up with an ks7 aching back. pt denies injury. 8/10 sharp aching pain. Denies fever, n/v/d. Coronavirus screen: Client denies travel out of the [place] in the last 14 days. At this time, the client does not indicate any symptoms associated with coronavirus-19. The client reports previous COVID testing was negative. Date of collection: November 18, 2019. Ebola Screen: Patient negative for fever greater than or equal to 101.5 degrees Fahrenheit, and additional compatible Ebola Virus Disease symptoms Patient denies exposure to infectious person. Patient denies travel to an Ebola-affected area in the 21 days before illness onset. Initial Sepsis Screen: Does the patient meet any 2 criteria? No. Patient's initial sepsis screen is negative. Does the patient have a suspected source of infection? No. Patient's initial sepsis screen is negative. Risk Assessment: Do you want to hurt yourself or someone else? Patient reports no desire to harm self or others. Onset of symptoms was November 16, 2019. 17:49 Method Of Arrival: Ambulatory ks7 17:49 Acuity: COBY 4 ks7 Triage Assessment: 17:53 General: Appears in no apparent distress. uncomfortable, Behavior is calm, cooperative. ks7 Pain: Complains of pain in back Pain currently is 8 out of 10 on a pain scale. Quality of pain is described as aching, Pain began 1 week ago Is continuous. 17:53 Musculoskeletal: Reports pain in back. ks7 Historical: - Allergies: 17:53 No Known Allergies; ks7 - Home Meds: 17:53 valsartan 40 mg Oral tab 1 tab once daily for Hypertension [Active]; prednisone 5 mg ks7 Oral tab once daily [Active]; diltiazem HCl 240 mg Oral cpER 1 cap once daily for Hypertension [Active]; - PMHx: 17:53 Gall Stones; history of dialysis; Hypertension; kidney transplant; Pancreatitis; ks7 - PSHx: 17:53 Kidney transplant; ks7 - Immunization history:: Adult Immunizations up to date. - Social history:: Smoking status: Patient reports the use of cigarette tobacco products, Patient/guardian denies using tobacco, the patient reports quitting approximately 20 years ago. Screenin:10 Abuse screen: Denies threats or abuse. Denies injuries from another. Nutritional ks7 screening: No deficits noted. Tuberculosis screening: No symptoms or risk factors identified. Fall Risk None identified. Assessment: 18:10 General: Appears in no apparent distress. uncomfortable, Behavior is calm, cooperative. ks7 Neuro: Level of Consciousness is awake, alert, obeys commands, Oriented to person, place, time, situation, Rn Recovery are equal bilaterally Moves all extremities. Gait is steady, Speech is normal, Facial symmetry appears normal. Musculoskeletal: Reports pain in back since 1 week. 19:07 Reassessment: spoke with Dr. Forbes. Pt veins are near impossible to put an IV in. will ks7 change to IM an PO meds. 20:29 Reassessment: Patient and/or family updated on plan of care and expected duration. Pain ks7 level reassessed. Patient states feeling better. Pain: Complains of pain in back Pain currently is 6 out of 10 on a pain scale. Alleviated by medications, rest. 22:24 Reassessment: Patient and/or family updated on plan of care and expected duration. Pain ks7 level reassessed. Patient is alert, oriented x 3, equal unlabored respirations, skin warm/dry/pink. pt ate sandwich, chips and diet soda. feeling better. Vital Signs: 17:49 BP 149 / 96; Pulse 81; Resp 18; Temp 99.1(O); Pulse Ox 98% on R/A; Weight 104.33 kg; ks7 Height 5 ft. 11 in. (180.34 cm); Pain 8/10; 19:28 BP 155 / 90; Pulse 74; Resp 18; Temp 99(O); Pulse Ox 100% on R/A; Pain 8/10; ks7 20:28 Pulse Ox 2% ; Pain 0/10; ks7 20:28 BP 163 / 95; Pulse 69; Resp 18; Temp 99(O); Pulse Ox 100% on R/A; Pain 6/10; ks7 20:30 Pulse Ox 100% ; Pain 2/10; ks7 21:15 BP 157 / 88; Pulse 90; Resp 18; Pulse Ox 100% on R/A; Pain 5/10; ks7 22:30 BP 150 / 83; Pulse 76; Resp 18; Temp 98.2(O); Pulse Ox 100% on R/A; Pain 4/10; ks7 17:49 Body Mass Index 32.08 (104.33 kg, 180.34 cm) ks7 ED Course: 17:13 Patient arrived in ED. as 17:42 Panfilo Peter MD is Attending Physician. kdr 17:52 Triage completed. ks7 17:53 Arm band placed on right wrist. ks7 18:09 Maria Gar, PRINCESS is Primary Nurse. ks7 18:09 ED physician to see patient. at bedside assessing pt. ks7 18:10 Patient has correct armband on for positive identification. Bed in low position. Call ks7 light in reach. Side rails up X2. 18:10 No provider procedures requiring assistance completed. Patient did not have IV access ks7 during this emergency room visit. 18:47 Missed attempt(s): 20 gauge in right antecubital area. 22 gauge in right forearm. pt ks7 hard stick will ask another RN to try. 19:00 CT Lumbar Spine Wo Con In Process Unspecified. EDMS 19:00 CT Thoracic Spine Wo Cont In Process Unspecified. EDMS 19:15 Patient moved back from CT. ks7 19:28 No apparent distress. Resting quietly. ks7 21:15 pt ambulated to bathroom independently. steady on feet. ks7 22:30 ED physician to see patient. discussed dc instructions, test results. ks7 Administered Medications: 19:14 CANCELLED (VORB: MD change to PO/ODT): Zofran (Ondansetron) 4 mg IVP once; over 2 ks7 minutes 19:14 CANCELLED (VORB: MD change to PO): Robaxin 1 grams IVPB once over 1 hrs; (mix in NS 100 ks7 mL) 19:15 CANCELLED (VORB: MD change to IM): morphine 4 mg IVP once; RASS on ADMIN: Combtv4, Very ks7 Agttd3, Agttd2, Rstlss1, AlertClm0, Drwsy-1, Lt Sdtn-2, Mod Sdtn-3, Dp Sdtn-4, UnArsble-5 19:27 Drug: Robaxin 500 mg Route: PO; ks7 19:27 Drug: Robaxin 500 mg Route: PO; ks7 20:30 Follow up: Pulse Ox 100% ; Pain 2/10 Adult ks7 19:27 Drug: Ondansetron (Zofran) 4 mg Route: PO; ks7 19:28 Drug: morphine 4 mg Route: IM; Site: left deltoid; ks7 20:28 Follow up: Pulse Ox 2% ; Pain 0/10 Adult ks7 Outcome: 22:30 Discharge ordered by . tw4 22:39 Discharged to home ambulatory. ks7 22:39 Condition: good 22:39 Discharge instructions given to patient, Instructed on discharge instructions, follow up and referral plans. medication usage, Demonstrated understanding of instructions, follow-up care, medications, Prescriptions given X 2. 22:39 Patient left the ED. ks7 Signatures: Dispatcher [employer] EDMS Panfilo Peter MD MD kdr Martinez, Amelia as Wadley, Terrence, MD MD tw4 Maria Gar, RN RN ks7
[2019-11-23 22:46] VITALS: O2SAT 100
[2019-11-23 22:51] VITALS: BP 150/83; TEMP 98.2
== END 2019-11-23 22:39 | disposition home or self-care (01) ==
LOC: ER 17:10
DX: S23.3XXA Sprain of ligaments of thoracic spine, initial encounter (principal); F17.210 Nicotine dependence, cigarettes, uncomplicated; I10 Essential (primary) hypertension; Z94.0 Kidney transplant status
CPT/HCPCS: 72128; 72131; 81003; 96372; 99284

== ENCOUNTER 2020-01-08 20:53 | Observation (INO) | payer OTHER ==
--- OUTSIDE RECORDS SUMMARY | 2020-01-08 20:56 | XMS REPORT | Clinical Summary ---
:1965 Author Organization [facility] Address [address] [place] [address] Care Team Providers Name Role Phone Satish Klein MD Primary Care Provider Allergies No Known Active Allergies Medications Medication Sig Dispensed Refills Start [...] (HCC); Disorder of mariela sphorus metabolism after 01/07/2019 Social History Tobacco Use Types Packs/Day Years [...] 8:54 Resu lts for this RANDOM AM PHYSICIAN ALLERGIST IMMUNOLOGIST procedure are i n the results section. ESTIMATED GFR Routine 03/02/2019 8:54 Results fo r this AM PHYSICIAN ALLERGIST IMMUNOLOGIST procedure are i n the results section. [id number] TACROLIMUS Routine 03/02/2019 8:54 Kidney replaced by R esults for this LEVEL, RANDOM AM PHYSICIAN ALLERGIST IMMUNOLOGIST transplant procedure are in Essential the results hypertension, section. malignant Proteinuria, unspecified type Anemia of chronic renal failure, unspecified CKD stage Disorder of phosphorus metabolism Hypermagnesemia Chronic kidney disease, stage III (moderate) (HCC) PROTEIN, URINE, RANDOM Routine 03/02/2019 8:54 Kidney replace d by Results for this AM PHYSICIAN ALLERGIST IMMUNOLOGIST transplant procedure are in Essential the results hypertension, section. malignant Proteinuria, unspecified type Anemia of chronic renal failure, unspecified CKD stage Disorder of phosphorus metabolism Hypermagnesemia Chronic kidney disease, stage III (moderate) (HCC) CREATININE LEVEL, Routine 03/02/2019 8:54 Kidney replaced by Results for this URINE, RANDOM AM PHYSICIAN ALLERGIST IMMUNOLOGIST transplant procedure are in Essential the results hypertension, section. malignant Proteinuria, unspecified type Anemia of chronic renal failure, unspecified CKD stage Disorder of phosphorus metabolism Hypermagnesemia Chronic kidney disease, stage III (moderate) (HCC) URINALYSIS SCREEN AND Routine 03/02/2019 8:54 Kidney replaced by Results for this MICROSCOPY, WITH AM PHYSICIAN ALLERGIST IMMUNOLOGIST transplant procedure are in REFLEX TO CULTURE Essential the result s hypertension, section. malignant Proteinuria, unspecified type Anemia of chronic renal failure, unspecified CKD stage Disorder of phosphorus metabolism Hypermagnesemia Chronic kidney disease, stage III (moderate) (HCC) LDH Routine 03/02/2019 8:54 Kidney replaced by Resul ts for this AM PHYSICIAN ALLERGIST IMMUNOLOGIST transplant procedure are in Essential the results hypertension, section. malignant Proteinuria, unspecified type Anemia of chronic renal failure, unspecified CKD stage Disorder of phosphorus metabolism Hypermagnesemia Chronic kidney disease, stage III (moderate) (HCC) URIC ACID LEVEL Routine 03/02/2019 8:54 Kidney replaced by Re sults for this AM PHYSICIAN ALLERGIST IMMUNOLOGIST transplant procedure are in Essential the results hypertension, section. malignant Proteinuria, unspecified type Anemia of chronic renal failure, unspecified CKD stage Disorder of phosphorus metabolism Hypermagnesemia Chronic kidney disease, stage III (moderate) (HCC) PHOSPHORUS LEVEL Routine 03/02/2019 8:54 Kidney replaced by R esults for this AM PHYSICIAN ALLERGIST IMMUNOLOGIST transplant procedure are in Essential the results hypertension, section. malignant Proteinuria, unspecified type Anemia of chronic renal failure, unspecified CKD stage Disorder of phosphorus metabolism Hypermagnesemia Chronic kidney disease, stage III (moderate) (HCC) MAGNESIUM LEVEL Routine 03/02/2019 8:54 Kidney replaced by Re sults for this AM PHYSICIAN ALLERGIST IMMUNOLOGIST transplant procedure are in Essential the results hypertension, section. malignant Proteinuria, unspecified type Anemia of chronic renal failure, unspecified CKD stage Disorder of phosphorus metabolism Hypermagnesemia Chronic kidney disease, stage III (moderate) (HCC) HC COMPLETE BLD COUNT Routine 03/02/2019 8:54 Kidney replaced by Results for this W/AUTO DIFF AM PHYSICIAN ALLERGIST IMMUNOLOGIST transplant procedure are in Essential the results hypertension, section. malignant Proteinuria, unspecified type Anemia of chronic renal failure, unspecified CKD stage Disorder of phosphorus metabolism Hypermagnesemia Chronic kidney disease, stage III (moderate) (HCC) COMPREHENSIVE Routine 03/02/2019 8:54 Kidney replaced by Resu lts for this METABOLIC PANEL AM PHYSICIAN ALLERGIST IMMUNOLOGIST transplant procedure are in Essential the results hypertension, section. malignant Proteinuria, unspecified type Anemia of chronic renal failure, unspecified CKD stage Disorder of phosphorus metabolism Hypermagnesemia Chronic kidney disease, stage III (moderate) (HCC) URINE CULTURE Routine 03/02/2019 8:54 Results fo r this AM PHYSICIAN ALLERGIST IMMUNOLOGIST procedure are i n the results section. ESTIMATED GFR Routine 02/21/2019 7:56 Results fo r this AM PHYSICIAN ALLERGIST IMMUNOLOGIST procedure are i n the results section. CYCLOSPORINE LEVEL, Routine 02/21/2019 7:56 Kidney replaced b y Results for this RANDOM AM PHYSICIAN ALLERGIST IMMUNOLOGIST transplant procedure are in Anemia of chronic the result s renal failure, section. unspecified CKD stage Hypermagnesemia Proteinuria, unspecified type Essential hypertension, malignant Chronic kidney disease, stage III (moderate) (HCC) Disorder of phosphorus metabolism COMPREHENSIVE Routine 02/21/2019 7:56 Kidney replaced by Resu lts for this METABOLIC PANEL AM PHYSICIAN ALLERGIST IMMUNOLOGIST transplant procedure are in Anemia of chronic the result s renal failure, section. unspecified CKD stage Hypermagnesemia Proteinuria, unspecified type Essential hypertension, malignant Chronic kidney disease, stage III (moderate) (HCC) Disorder of phosphorus metabolism PROTEIN, URINE, RANDOM Routine 02/21/2019 7:56 Kidney replace d by Results for this AM PHYSICIAN ALLERGIST IMMUNOLOGIST transplant procedure are in Anemia of chronic the result s renal failure, section. unspecified CKD stage Hypermagnesemia Proteinuria, unspecified type Essential hypertension, malignant Chronic kidney disease, stage III (moderate) (HCC) Disorder of phosphorus metabolism CREATININE LEVEL, Routine 02/21/2019 7:56 Kidney replaced by Results for this URINE, RANDOM AM PHYSICIAN ALLERGIST IMMUNOLOGIST transplant procedure are in Anemia of chronic the result s renal failure, section. unspecified CKD stage Hypermagnesemia Proteinuria, unspecified type Essential hypertension, malignant Chronic kidney disease, stage III (moderate) (HCC) Disorder of phosphorus metabolism URINALYSIS SCREEN AND Routine 02/21/2019 7:56 Kidney replaced by Results for this MICROSCOPY, WITH AM PHYSICIAN ALLERGIST IMMUNOLOGIST transplant procedure are in REFLEX TO CULTURE Anemia of chronic the r esults renal failure, section. unspecified CKD stage Hypermagnesemia Proteinuria, unspecified type Essential hypertension, malignant Chronic kidney disease, stage III (moderate) (HCC) Disorder of phosphorus metabolism LDH Routine 02/21/2019 7:56 Kidney replaced by Resul ts for this AM PHYSICIAN ALLERGIST IMMUNOLOGIST transplant procedure are in Anemia of chronic the result s renal failure, section. unspecified CKD stage Hypermagnesemia Proteinuria, unspecified type Essential hypertension, malignant Chronic kidney disease, stage III (moderate) (HCC) Disorder of phosphorus metabolism URIC ACID LEVEL Routine 02/21/2019 7:56 Kidney replaced by Re sults for this AM PHYSICIAN ALLERGIST IMMUNOLOGIST transplant procedure are in Anemia of chronic the result s renal failure, section. unspecified CKD stage Hypermagnesemia Proteinuria, unspecified type Essential hypertension, malignant Chronic kidney disease, stage III (moderate) (HCC) Disorder of phosphorus metabolism PHOSPHORUS LEVEL Routine 02/21/2019 7:56 Kidney replaced by R esults for this AM PHYSICIAN ALLERGIST IMMUNOLOGIST transplant procedure are in Anemia of chronic the result s renal failure, section. unspecified CKD stage Hypermagnesemia Proteinuria, unspecified type Essential hypertension, malignant Chronic kidney disease, stage III (moderate) (HCC) Disorder of phosphorus metabolism MAGNESIUM LEVEL Routine 02/21/2019 7:56 Kidney replaced by Re sults for this AM PHYSICIAN ALLERGIST IMMUNOLOGIST transplant procedure are in Anemia of chronic the result s renal failure, section. unspecified CKD stage Hypermagnesemia Proteinuria, unspecified type Essential hypertension, malignant Chronic kidney disease, stage III (moderate) (HCC) Disorder of phosphorus metabolism HC COMPLETE BLD COUNT Routine 02/21/2019 7:56 Kidney replaced by Results for this W/AUTO DIFF AM PHYSICIAN ALLERGIST IMMUNOLOGIST transplant procedure are in Anemia of chronic the result s renal failure, section. unspecified CKD stage Hypermagnesemia Proteinuria, unspecified type Essential hypertension, malignant Chronic kidney disease, stage III (moderate) (HCC) Disorder of phosphorus metabolism URINE CULTURE Routine 02/21/2019 7:56 Results fo r this AM PHYSICIAN ALLERGIST IMMUNOLOGIST procedure are i n the results section. after 01/07/2019 Results Estimated GFR (07/04/2019 9:01 AM CDT)Only the most recent of3 resultswithin the time period is included. Pathologist [facility] [place] Estimated GFR 71 mL/min/1.73 [facility] Comment: m2 HOSPITAL Catergory Units Interpretation G1 [...] published in 2014. Specimen Performing Organization Address City/[facility] Phon e Number [facility] DEPARTMENT OF PATHOLOGY AND [address] [place] [phone] Cyclosporine level, random (07/04/2019 9:01 AM CDT)Only the most recent of3 resultswithin the time period is included. Pathologist [facility] [place] Cyclosporine 140 ng/mL [facility] Comment: HOSPITAL Unless administered by continuous IV drip, collect a p urple top tube just before the next dose. Therapeutic range of approximately 100-500 varies mainly with type of trans plant, use of other immunosuppressive agents, and evidence of toxicity or rejection. Test performed using [employer] Mechanic chemiluminescent microparticle immunoassay for Cyclosporine on the [employer] i System. Specimen Blood Performing Organization Address City/[facility] Phon e Number [facility] DEPARTMENT OF PATHOLOGY AND [address] [place] [phone] CBC with platelet and differential (07/04/2019 9:01 AM CDT)Only the most recent of3 resultswithin the time period is included. Pathologist [facility] [place] WBC 7.79 4.50 - 11.00 [facility] k/[facility] RBC 4.73 4.40 - 6.00 [facility] m/[facility] HGB 15.8 14.0 - 18.0 [facility] g/dL [facility] HCT 45.4 41.0 - 51.0 % [facility] MCV 96.0 82.0 - 100.0 [facility] MCH 33.4 27.0 - 34.0 pg [facility] MCHC 34.8 31.0 - 37.0 [facility] g/dL HOSPITAL RDW - SD 39.6 37.0 - 55.0 fL [facility] MPV 9.3 8.8 - 13.2 fL [facility] Platelet count 283 150 - 400 k/uL [facility] Nucleated RBC 0.00 /100 WBC [facility] Neutrophils 60.4 39.0 - 69.0 % [facility] Lymphocytes 27.1 25.0 - 45.0 % [facility] Monocytes 10.4 (H) 0.0 - 10.0 % [facility] Eosinophils 1.0 0.0 - 5.0 % [facility] Basophils 0.6 0.0 - 1.0 % [facility] Immature granulocytes 0.5Comment: 0.0 - 1.0 % [facility] "[facility] HOSPITAL granulocytes" (promyelocytes , myelocytes, metamyelocytes ) Specimen Blood Performing Organization Address City/[facility] Phon e Number [facility] DEPARTMENT OF PATHOLOGY AND [address] [place] [address] [phone] [address] Uric acid level (07/04/2019 9:01 AM CDT)Only the most recent of3 resultswithin the time period is included. Pathologist Sig nature Uric acid 5.8 3.4 - 7.0 mg/dL [facility] L Specimen Blood Performing Organization Address City/[facility] Phon e Number [facility] DEPARTMENT OF PATHOLOGY AND [address] [place] [address] [phone] [address] Phosphorus level (07/04/2019 9:01 AM CDT)Only the most recent of3 resultswithin the time period is included. Pathologist Sig nature Phosphorus 2.0 (L) 2.4 - 4.5 mg/dL [facility] L Specimen Blood Performing Organization Address City/[facility]/ZIP [place] Phon e Number [facility] DEPARTMENT OF PATHOLOGY AND [address] [place] [address] [phone] [address] Magnesium level (07/04/2019 9:01 AM CDT)Only the most recent of3 resultswithin the time period is included. Pathologist Sig nature Magnesium 2.1 1.6 - 2.6 mg/dL [facility] L Specimen Blood Performing Organization Address City/[facility] Phon e Number [facility] DEPARTMENT OF PATHOLOGY AND [address] [place] [address] [address] LDH (07/04/2019 9:01 AM CDT)Only the most recent of3 resultswithin the time period is included. Pathologist Sig nature LDH 167 87 - 225 U/L [facility] Specimen Blood Performing Organization Address City/[facility] Phon e Number [facility] DEPARTMENT OF PATHOLOGY AND [address] [place] [address] [phone] [address] Comprehensive metabolic panel (07/04/2019 9:01 AM CDT)Only the most recent of3 resultswithin the time period is included. Sodium 136 135 - 148 [facility] mEq/L [facility] Potassium 4.3 3.5 - 5.0 [facility] mEq/L [facility] Chloride 99 98 - 112 [facility] mEq/L [facility] CO2 24 24 - 31 mEq/L [facility] Anion gap 13@ANIO 7 - 15 mEq/L [facility] BUN 18 6 - 20 mg/dL [facility] Creatinine 1.31 (H) 0.70 - 1.20 [facility] mg/dL HOSPITAL Glucose 108 (H) 65 - 99 mg/dL [facility] Calcium 10.5 (H) 8.3 - 10.2 [facility] mg/dL [facility] Protein 8.2 6.3 - 8.3 [facility] Comment: g/dL HOSPITAL - 4.6-7.0 g/dL 1 week 4.4-7.6 g/dL 7 months-1year 5.1-7.3 g/dL 1-2 years 5.6-7.5 g/dL >3 years 6.0-8.0 g/dL 18-150 6.3-8.3 g/dL Albumin 3.8 3.5 - 5.0 [facility] g/dL HOSPITAL A/G ratio 0.9 0.7 - 3.8 [facility] Alkaline phosphatase 73 40 - 129 U/L [facility] AST 20 10 - 50 U/L [facility] ALT 29 5 - 50 U/L [facility] Total bilirubin 0.6 0.0 - 1.2 [facility] mg/dL HOSPITAL Specimen Blood Performing Organization Address [facility] Phon e Number [facility] DEPARTMENT OF PATHOLOGY AND [address] [place] [address] [phone] [address] Urinalysis screen and microscopy, with reflex to culture (07/04/2019 8:56 AM CDT)Only the most recent of3 resultswithin the time period is included. Specimen site Clean catch [facility] Color, UA Dark Yellow [facility] Appearance, UA Clear [facility] Specific gravity, UA 1.027 1.001 - 1.035 [facility] pH, UA 5.0 5.0 - 8.5 [facility] Protein, UA 3+ (A) Negative [facility] Glucose, UA Negative Negative [facility] Ketones, UA Negative Negative [facility] Bilirubin, UA Negative Negative [facility] Blood, UA Moderate (A) Negative [facility] Nitrite, UA Negative Negative [facility] Urobilinogen, UA 4.0 (A) <2.0 [facility] Leukocyte esterase, Negative Negative [facility] Epithelial cells, UA <1 /HPF [facility] WBC, UA 2 (H) 0 - 1 /HPF [facility] RBC, UA 9 (H) 0 - 5 /HPF [facility] Bacteria, UA None seen None seen [facility] Yeast, UA None seen [facility] Yeast with None seen [facility] pseudohyphae, HOSPITAL Hyaline casts, UA 3 /LPF [facility] Specimen Urine Performing Organization Address City/[facility] Phon e Number [facility] DEPARTMENT OF PATHOLOGY AND [address] [place] [address] [phone] [address] Protein, urine, random (07/04/2019 8:56 AM CDT)Only the most recent of3 results within the time period is included. Pathologist Sig nature Protein, urine random 373 mg/dL [facility] Specimen Urine Performing Organization Address [facility] Phon e Number [facility] DEPARTMENT OF PATHOLOGY AND [address] [place] [address] [phone] [address] Creatinine level, urine, random (07/04/2019 8:56 AM CDT)Only the most recent of 3 resultswithin the time period is included. Pathologist Sig nature Creatinine, urine, 298 mg/dL [facility] HOSPITAL Specimen Urine Performing Organization Address [facility] Phon e Number [facility] DEPARTMENT OF PATHOLOGY AND [address] [place] [address] [phone] [address] Urine culture (07/04/2019 8:56 AM CDT)Only the most recent of3 resultswithin the time period is included. Pathologist Sig nature Urine culture SEE COMMENTComment: [facility] Bacteriuria screen HOSPITAL negative. Specimen Performing Organization Address [facility] Phon e Number [facility] DEPARTMENT OF PATHOLOGY AND [address] [place] [address] [phone] [address] [id number] Tacrolimus level, random (03/02/2019 8:54 AM PHYSICIAN ALLERGIST IMMUNOLOGIST) FK506 level <2.0 ng/mL [facility] Comment: HOSPITAL Therapeutic range 5-20 ng/mL for 12 hour trough. The r caleb varies depending on the organ transplanted, time after transplantation and co-administered immunosuppressant therapies. Please use clinical judgment to interpret test result. Test performed using [employer] chemiluminescent microparticle immunoassay for Tacrolimus on the [employer] i System. Specimen Blood Performing Organization Address [facility] Phon e Number [facility] DEPARTMENT OF PATHOLOGY AND [address] [place] [phone] after 01/07/2019 Insurance Payer Benefit Plan / Subscriber ID Effective Dates Phone Addre ss Type Group MEDICARE MEDICARE PART A [id number] 1993-Present [place], [place] Medicare AND B
--- OUTSIDE RECORDS SUMMARY | 2020-01-08 20:56 | XMS REPORT | Clinical Summary ---
:1965 Author Organization [facility] Address [address] [place] [address] Care Team Providers Name Role Phone Akin Green MD Primary Care Provider Unavailable Allergies No Known Allergies Medications Not on file Active Problems Not on file Encounters Date Type Specialty Care Team Description 09/17/2019 Lab Requisition Lab after 01/07/2019 Family History Medical History Relation Name Comments [...] procedure are in the results section. after 01/07/2019 Results SARS-CoV2/RT-PCR ([facility]) (09/16/2019 9:40 PM CDT) SARS-COV2/RT-PCR Not Detected Not Detected, Negative [facility] SARS-COV-2 PERFORMING LAB [facility] Specimen Other Narrative Performed At Negative results do not preclude SARS-CoV-2 [facility] infection and should not be used as [...] the Act. Fact Sheet for Healthcare Providers: https://www.LoSo/Documents/Xpert%20Xpre ss%20SARS%20CoV-2/Fact%20Sheets/3023802%20SAR S-COV-2%20HEALTHCARE%20PROVIDERS%20FACT%20SHEE T.pdf Fact Sheet for Healthcare Patients: https://www.LoSo/Documents/Xpert%20Xpre ss%20SARS%20CoV-2/Fact%20Sheets/3023801%20SAR S-COV-2%20PATIENT%20FACT%20SHEET.pdf Performing Laboratory: [address] [place] [address] Performing Organization Address City/State/Zipcode Phone Number [address] [address] CENTER after 01/07/2019 Insurance Payer Benefit Plan / Group Subscriber ID Type Phone A ddress [employer] [facility] [employer] xxxxxxxxx
--- OUTSIDE RECORDS SUMMARY | 2020-01-08 20:57 | XMS REPORT | Continuity of Care Document ---
:1965 Author Organization [facility] t Address [address] [place] [address] Care Team Providers Name Role Phone Akin Green MD Primary Care Physician Unavailable Chase ALVAREZ Attending Clinician Satish Klein MD Attending Clinician Payers Payer Name Policy Type Policy Number Effective Expiration Source Date Date [employer] MEDICARE xxxxxxxxx ISA Donald [facility] CAREAMERIGROUP - [facility] MAPSxxxxxxxxx [place] MEDICAREMEDICARE PART [id number] 1993 Victorino stinson A AND 00:00:00 Confucianist [id number] [address] Problems Condition Condition Condition Status Onset Resolution Last Treating Co mments Source Name Details Category Date Date Treatment Clinician Date Kidney Kidney Disease Active 2017-04 [place] transplant transplant 0-08 Me thodi recipient recipient 00:00: st 00 Right Right Disease Active 2017-04 [place] upper upper 0-08 Methodi quadrant quadrant 00:00: st abdominal abdominal 00 pain pain Disorder 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 Family History Family Member Diagnosis Comments Start Date Stop Date Source Natural father Hypertension [facility] Natural mother Heart disease [facility] Natural mother Hypertension [facility] Natural sister Diabetes [facility] Social History Social Habit Start Date Stop Date Quantity Comments Source Sex Assigned At Kavon Prescott ethodist Tobacco use and 2018-01-18 2018-01-18 Never used Kavon Prescott ethodist exposure 00:00:00 00:00:00 Alcohol intake 2018-01-18 2018-01-18 Current Kavon Ortiz thodist 00:00:00 00:00:00 non-drinker of alcohol (finding) Tobacco Comment 2018-01-15 2018-01-15 "Quit 2-3 months Tiffany ston Confucianist 00:00:00 00:00:00 ago" Smoking Status Start Date Stop Date Source Former smoker 2018-01-18 00:00:00 2018-01-18 00:00:00 Kavon Trivedi Current some day 2016-03-26 00:00:00 [facility] smoker Center Medications Ordered Filled [...] / Time Performing Clinician Source Performed SARS-COV2/RT-PCR ([facility] & 2019-09-16 21:40:00 [facility] LABS) [facility] Center HC COMPLETE BLD COUNT 2019-07-04 09:01:00 Jean Paul Stone on Confucianist W/AUTO DIFF MAGNESIUM LEVEL 2019-07-04 09:01:00 Jean Paul Stone hodist PHOSPHORUS LEVEL 2019-07-04 09:01:00 ChaseJean Paul jain Me thodist URIC ACID LEVEL 2019-07-04 09:01:00 Jean Paul Stone Met hodist LDH 2019-07-04 09:01:00 Jean Paul Stone Met hodist COMPREHENSIVE METABOLIC 2019-07-04 09:01:00 Jean Paul Stone Confucianist PANEL CYCLOSPORINE LEVEL, 2019-07-04 09:01:00 ChaseJean Paul Kavon Confucianist RANDOM ESTIMATED GFR 2019-07-04 09:01:00 ChaseJean Paul jain Met hodist URINE CULTURE 2019-07-04 08:56:00 ChaseJean Paul Met hodist URINALYSIS SCREEN AND 2019-07-04 08:56:00 Jean Paul Stone on Confucianist MICROSCOPY, WITH REFLEX TO CULTURE PROTEIN, URINE, RANDOM 2019-07-04 08:56:00 Jean Paul Stone Confucianist CREATININE LEVEL, URINE, 2019-07-04 08:56:00 Jean Paul Stone Confucianist RANDOM URINE CULTURE 2019-03-02 08:54:00 Juan Klein Nm thodist COMPREHENSIVE METABOLIC 2019-03-02 08:54:00 Juan Klein Confucianist PANEL HC COMPLETE BLD COUNT 2019-03-02 08:54:00 Juan Klein Confucianist W/AUTO DIFF MAGNESIUM LEVEL 2019-03-02 08:54:00 Juan Klein Nm thodist PHOSPHORUS LEVEL 2019-03-02 08:54:00 Juan Klein M ethodist URIC ACID LEVEL 2019-03-02 08:54:00 Juan Klein Me thodist LDH 2019-03-02 08:54:00 Juan Klein Me thodist URINALYSIS SCREEN AND 2019-03-02 08:54:00 Juan Klein Confucianist MICROSCOPY, WITH REFLEX TO CULTURE CREATININE LEVEL, URINE, 2019-03-02 08:54:00 Juan Klein Confucianist RANDOM PROTEIN, URINE, RANDOM 2019-03-02 08:54:00 Juan Klein Confucianist [id number] TACROLIMUS LEVEL, 2019-03-02 08:54:00 Juan Klein Confucianist RANDOM ESTIMATED GFR 2019-03-02 08:54:00 Juan Klein Nm thodist CYCLOSPORINE LEVEL, 2019-03-02 08:54:00 Juan Klein Confucianist RANDOM URINE CULTURE 2019-02-21 07:56:00 Juan Klein Nm thodist HC COMPLETE BLD COUNT 2019-02-21 07:56:00 Juan Klein W/AUTO DIFF MAGNESIUM LEVEL 2019-02-21 07:56:00 Juan Klein Nm thodist PHOSPHORUS LEVEL 2019-02-21 07:56:00 Juan Klein ethodist URIC ACID LEVEL 2019-02-21 07:56:00 Juan Klein Nm thodist LDH 2019-02-21 07:56:00 Juan Klein Nm thodist URINALYSIS SCREEN AND 2019-02-21 07:56:00 Juan Klein MICROSCOPY, WITH REFLEX TO CULTURE CREATININE LEVEL, URINE, 2019-02-21 07:56:00 Juan Klein Confucianist RANDOM PROTEIN, URINE, RANDOM 2019-02-21 07:56:00 Juan Klein COMPREHENSIVE METABOLIC 2019-02-21 07:56:00 Juan Klein PANEL CYCLOSPORINE LEVEL, 2019-02-21 07:56:00 Juan Klein Confucianist RANDOM ESTIMATED GFR 2019-02-21 07:56:00 Juan Klein Nm thodist Plan of Care Planned Activity Planned Date Details Comments Source Future Scheduled 2019-11-12 INFLUENZA VACCINE Lito n Confucianist Test 00:00:00 [code = INFLUENZA VACCINE] Future Scheduled 2016-02-28 COLONOSCOPY SCREENING Victorino stinson Confucianist Test 00:00:00 [code = COLONOSCOPY SCREENING] Future Scheduled 2016-02-28 SHINGLES VACCINES Lito n Confucianist Test 00:00:00 (#1) [code = SHINGLES VACCINES (#1)] Encounters Start End Encounter Admission Attending Care Care Encounter Source Date/Time Date/Time Type Type Clinicians Facility Department ID 2019-07-04 2019-07-04 Outpatient [facility] [id number] [place] 00:00:00 00:00:[address] Results Test Description Test Time Test Comments Results Result Comments Source SARS-CoV2/RT-PCR ([facility] & Ref Labs) 2019-09-17 04:32:00 Test Item Value Reference Range Interpretation Comme nts SARS-COV2/RT-PCR (test code = Not Detected Not Detected, Negative 45416-8) SARS-COV-2 PERFORMING LAB [facility] (test code = 22238-1) CATR[place]O (test code = CATRACHO) Negative results [...] of the Act. Fact Sheet for Healthcare Providers:https://www.[employer]/Documents/Xpert%20Xpress %20SARS%20CoV-2/Fact%20Sheets /302-8802%30SKGB-KQK-2%20HEAL THCARE%20PROVIDERS%20FACT%20S HEET.pdf Fact Sheet for Healthcare Patients:https://www.[employer]/Documents/Xpert%20Xpress% 20SARS%20CoV-2/Fact%20Sheets/ 3023801%44FYKG-YBF-6%20PATIE NT%20FACT%20SHEET.pdf Performing Laboratory:[facility] [place] [address] [facility] REF LABS)2019-09-17 04:32:00 Test Item Value Reference Range Interpretation Comments SARS-COV2/RT-PCR (test Not Detected Not Detected, Negative code = 9395283) SARS-COV-2 PERFORMING LAB [facility] (test code = 7263142) Negative results do not preclude SARS-CoV-2 infection [...] of the Act.Fact Sheet for Healthcare Pro viders:https://www.[employer].com/Documents/Xpert%20Xpress%20SARS%20CoV-2/Fact%20Sh eets/302-6052%51UTLI-XTY-2%20HEALTHCARE%20PROVIDERS%20FACT%20SHEET.pdfFact Sheet for Healthcare Patients:https://www.[employer].com/Documents/Xpert%20Xpress%20SARS%20CoV-2/Fact%20Sheets/3023801%20SARS-COV -2%20PATIENT%20FACT%20SHEET.pdfPerforming Laboratory:[facility], [place] [address]Ejogndiisdld level, [id number] 13:56:52 Test Item Value Reference Interpretation Comments Range Cyclosporine 140 ng/mL Unless administ ered by (test code = continuous IV d [place], [place] [address]-1) purple top tube just before the next dose. Ther apeutic range of approximately 1 00-500 varies mainly with typ e of transplant,use of other immunosuppressi ve agents, and evidence of tox icity or rejection. Test performed using [employer] t chemiluminescen tmicroparticle immunoassay for Cyclosporine on the LOGGER ALL ROUND i System. [place] [facility] [id number] 11:43:07 Test Item Value Reference Range Interpretation Comments Sodium (test code = 136 135- 148 mEq/L 2951-2) Potassium (test code = 4.3 3.5- 5.0 mEq/L 2823-3) Chloride (test code = 99 98- 112 mEq/L 2075-0) CO2 (test code = 8-9) 24 24- 31 mEq/L Anion gap (test code = 13@ANIO 7- 15 mEq/L 74296-2) BUN (test code = 3094-0) 18 mg/dL 6-20 Creatinine (test code = 1.31 mg/dL 0.7-1.2 H 2160-0) Glucose (test code = 108 mg/dL 65-99 H 2345-7) Calcium (test code = 10.5 mg/dL 8.3-10.2 H 01716-0) Protein (test code = 8.2 g/dL 6.3-8.3 -[place] n 2885-2) 4.6-7.0 g/dL1 week 4.4-7 .6 g/dL7 months-1y ear 5.1-7 .3 g/dL1-2 years 5.6-7 .5 g/dL>3 years 6.0-8 .0 g/rF69-905 6.3-8 .3 g/dL Albumin (test code = 3.8 g/dL 3.5-5 1751-7) A/G ratio (test code = 0.9 0.7-3.8 1759-0) Alkaline phosphatase 73 U/L 40-129 (test code = 6768-6) AST (test code = 1920-8) 20 U/L 10-50 ALT (test code = 1742-6) 29 U/L 5-50 Total bilirubin (test 0.6 mg/dL 0-1.2 code = 1975-2) Lab Interpretation (test Abnormal code = 51253-4) Kavon [id number] 11:43:07 Test Item Value Reference Range Interpretation Comments LDH (test code = 56704-4) 167 U/L 87-225 [facility] MethodistMagnesium [id number] 11:43:07 Test Item Value Reference Range Interpretation Comments Magnesium (test code = 43309-0) 2.1 mg/dL 1.6-2.6 [facility] MethodistPhosphorus [id number] 11:43:07 Test Item Value Reference Range Interpretation Comments Phosphorus (test code = 2777-1) 2.0 mg/dL 2.4-4.5 L Lab Interpretation (test code = Abnormal 98212-2) [facility] MethodistUric acid [id number] 11:43:07 Test Item Value Reference Range Interpretation Comments Uric acid (test code = 3084-1) 5.8 mg/dL 3.4-7 [facility] MethodistEstimated [id number] 11:43:07 Test Item Value Reference Range Interpretation Comments Estimated GFR (test 71 mL/min/1.73 m2 [facility] Units code = 5488) InterpretationG 1 >=90 Normal or highG2 60-89 Mildly tvyfhcmmqI6m 45-59 Mildly to mode rately hxrofwhqoM1q 30-44 Moderately to severely decreasedG4 15-29 Severely decre asedG5 <15 Kidn ey failureThe eGFR was calculated maryuri varela the Chronic Kidney Disease Epidemiology Co llaboration (CKD-EPI) equat ion. Interpretation is based on recommendations of the National Kidney Foundation-Kidn ey Disease Outcomes Qualit y Initiative (NKF-KDOQI) pub lished in 2014. Kavon MethodistProtein, urine, [id number] 11:11:54 Test Item Value Reference Range Interpretation Comments Protein, urine random (test code = 373 mg/dL 2888-6) [facility] MethodistCreatinine level, urine, [id number] 11:00:13 Test Item Value Reference Range Interpretation Comments Creatinine, urine, random (test 298 mg/dL code = 84814-6) [facility] MethodistUrine [id number] 10:16:27 Test Item Value Reference Range Interpretation Comments Urine culture (test SEE COMMENT Bacteriu deandre screen code = 9924411) negative. Kavon MethodistUrinalysis screen and microscopy, with reflex to culture 2019-07-04 10:16:25 Test Item Value Reference Range Interpretation Comments Specimen site (test code = Clean catch 8204212) Color, UA (test code = 5778-6) Dark Yellow Appearance, UA (test code = Clear 5767-9) Specific gravity, UA (test code = 1.027 1.001-1.035 5811-5) pH, UA (test code = 5803-2) 5.0 5.0-8.5 Protein, UA (test code = 95601-7) 3+ Negative A Glucose, UA (test code = 06406-9) Negative Negative Ketones, UA (test code = 2514-8) Negative Negative Bilirubin, UA (test code = Negative Negative 5770-3) Blood, UA (test code = 5794-3) Moderate Negative A Nitrite, UA (test code = 5802-4) Negative Negative Urobilinogen, UA (test code = 4.0 <2.0 A 56038-8) Leukocyte esterase, UA (test code Negative Negative = 5799-2) Epithelial cells, UA (test code = <1 /HPF 5787-7) WBC, UA (test code = 5821-4) 2 0- 1 /HPF H RBC, UA (test code = 23390-8) 9 0- 5 /HPF H Bacteria, UA (test code = None seen None seen 38222-3) Yeast, UA (test code = 80629-5) None seen Yeast with pseudohyphae, UA (test None seen code = 80060-0) Hyaline casts, UA (test code = 3 /LPF 5796-8) Lab Interpretation (test code = Abnormal 89916-9) Kavon MethodistCBC with platelet and [id number] 10:02:15 Test Item Value Reference Range Interpretation Comments WBC (test code = 67669-6) 7.79 4.50- 11.00 k/uL RBC (test code = 00052-2) 4.73 m/uL 4.4-6 HGB (test code = 718-7) 15.8 g/dL 14-18 HCT (test code = 4544-3) 45.4 % 41-51 MCV (test code = 787-2) 96.0 fL 82-100 MCH (test code = 785-6) 33.4 pg 27-34 MCHC (test code = 786-4) 34.8 g/dL 31-37 RDW - SD (test code = 39.6 fL 37-55 32236-1) MPV (test code = 04310-5) 9.3 fL 8.8-13.2 Platelet count (test code 283 150- 400 k/uL = 56114-8) Nucleated RBC (test code 0.00 /100 WBC = 50570-1) Neutrophils (test code = 60.4 % 39-69 75966-1) Lymphocytes (test code = 27.1 % 25-45 72789-7) Monocytes (test code = 10.4 % 0-10 H 40491-4) Eosinophils (test code = 1.0 % 0-5 52405-3) Basophils (test code = 0.6 % 0-1 42739-7) Immature granulocytes 0.5 % 0-1 "Immat ure (test code = 73551-4) granul ocytes" (promyelocytes, myelocytes, metamyelocytes) Lab Interpretation (test Abnormal code = 06345-5) Kavon TrivediFK506 Tacrolimus level, [id number] 15:50:23 Test Item Value Reference Range Interpretation Comments FK506 level (test <2.0 ng/mL Therapeuti c range 5-20 ng/mL code = 18020-3) for 12 hour trough. The range varies dependin g on the organ transplanted, t geovanny after transplantation and co-administered immunosuppressa nt therapies. Please use clin ical judgment to interpret te st result.Test performed using [facility] chemi luminescent microparticle i mmunoassay for Tacrolimus on t he LOGGER ALL ROUND i System. Kavon Tirvedi
[2020-01-08 22:24] LABS: Protime INR 0.91
[2020-01-08 22:25] LABS: Absolute Lymphocytes (CBC) 2.2 K/uL (0.7-4.9); Basophils % 0.8 % (0-1.3); Hematocrit 40.7 % (39.6-49.0); Lymphocytes % 26.1 % (15.3-44.8); MPV 7.8 fL (7.6-11.3); RBC Red Blood Cell Count 4.38 M/uL (4.33-5.43)
[2020-01-08 22:50] LABS: ALT/SGPT 52 U/L (12-78); AST/SGOT 29 U/L (15-37); Albumin 3.3 g/dL (3.4-5.0); Alkaline Phosphatase 88 U/L (45-117); BUN Blood Urea Nitrogen 19 mg/dL (7-18); Bicarbonate 25 mmol/L (21-32); Bilirubin Direct < 0.1 mg/dL (0-0.2); Bilirubin Total 0.3 mg/dL (0.2-1.0); Glucose Level 109 mg/dL (74-106); Magnesium 2.1 mg/dL (1.8-2.4); NT PRO-BNP 106 pg/mL (<125); Potassium 3.8 mmol/L (3.5-5.1); Protein, Total 7.3 g/dL (6.4-8.2); Sodium Level 142 mmol/L (136-145); Troponin (Emerg Dept Use Only) < 0.02 ng/mL (0.0-0.045)
[2020-01-08] MEDS ORDERED: FENTANYL CITR 100 MCG/2 ML ONE (22:57)
--- NOTE | 2020-01-09 01:10 | ER ---
Nurse's Notes [facility] Name: Shoaib Freitas Jr Age: 54 yrs Sex: Male : 1965 Arrival Date: 01/08/2020 Time: 20:54 Bed 17 Private MD: Diagnosis: Chest pain, unspecified;Volume depletion;Patient's other noncompliance with medication regimen-did not refill eliquis Presentation: 01/07 21:00 Chief complaint: Patient states: Int. CP for 2 days. RLE pain and swelling for 3 days. ll1 No cough or fever. Coronavirus screen: Client denies travel out of the [place] in the last 14 days. At this time, the client does not indicate any symptoms associated with coronavirus-19. Ebola Screen: Patient denies travel to an Ebola-affected area in the 21 days before illness onset. Initial Sepsis Screen: Does the patient meet any 2 criteria? HR > 90 bpm. No. Patient's initial sepsis screen is negative. Risk Assessment: Do you want to hurt yourself or someone else? Patient reports no desire to harm self or others. Onset of symptoms was January 07, 2020. 21:00 Method Of Arrival: Ambulatory ll1 21:00 Acuity: COBY 3 ll1 Historical: - Allergies: 21:03 No Known Allergies; ll1 - PMHx: 21:03 Pancreatitis; kidney transplant; Hypertension; history of dialysis; Gall Stones; ll1 - PSHx: 21:03 Kidney transplant; ll1 - Immunization history:: Flu vaccine is not up to date. - Social history:: Smoking status: Patient/guardian denies using tobacco, the patient reports quitting approximately 2 years ago. Screenin:50 Abuse screen: Denies threats or abuse. Nutritional screening: No deficits noted. jb4 Tuberculosis screening: No symptoms or risk factors identified. Fall Risk None identified. Assessment: 21:50 General: Appears in no apparent distress. uncomfortable, Behavior is calm, cooperative, jb4 appropriate for age. Pain: Complains of pain in anterior aspect of left upper chest, right leg and left leg Pain does not radiate. Pain currently is 6 out of 10 on a pain scale. Quality of pain is described as pressure, stabbing, Pain began 2-3 days ago. Is continuous. Neuro: Level of Consciousness is awake, alert, obeys commands, Oriented to person, place, time, situation. Cardiovascular: Patient's skin is warm and dry. Pulses are 3+ in right dorsalis pedis artery and left dorsalis pedis artery. Respiratory: Airway is patent Respiratory effort is even, unlabored, Respiratory pattern is regular, symmetrical. GI: No signs and/or symptoms were reported involving the gastrointestinal system. : No signs and/or symptoms were reported regarding the genitourinary system. EENT: No signs and/or symptoms were reported regarding the EENT system. Derm: Skin is intact, Skin is dry, Skin is normal, Skin temperature is warm. Musculoskeletal: Circulation, motion, and sensation intact. Range of motion: intact in all extremities. 23:00 Reassessment: Patient appears in no apparent distress at this time. Patient and/or jb4 family updated on plan of care and expected duration. Pain level reassessed. Patient is alert, oriented x 3, equal unlabored respirations, skin warm/dry/pink. Patient states feeling better. 01/08 00:00 Reassessment: Patient appears in no apparent distress at this time. Patient and/or jb4 family updated on plan of care and expected duration. Pain level reassessed. Patient is alert, oriented x 3, equal unlabored respirations, skin warm/dry/pink. 00:29 Reassessment: PT given a bottle of water per request. jb4 01:00 Reassessment: Patient and/or family updated on plan of care and expected duration. Pain jb4 level reassessed. Patient is alert, oriented x 3, equal unlabored respirations, skin warm/dry/pink. Pt reports sudden increase in chest pain while having recollect labs drawn. Repeat EKG performed, provider notified. 02:09 Reassessment: Patient appears in no apparent distress at this time. Patient and/or jb4 family updated on plan of care and expected duration. Pain level reassessed. Patient is alert, oriented x 3, equal unlabored respirations, skin warm/dry/pink. Vital Signs: 01/07 21:00 BP 144 / 103; Pulse 95; Resp 18; Temp 98.2; Pulse Ox 98% ; Weight 104.33 kg; Height 5 ll1 ft. 11 in. (180.34 cm); Pain 6/10; 22:00 BP 151 / 94; Pulse 87; Resp 16; Pulse Ox 95% on R/A; Pain 6/10; jb4 23:00 BP 152 / 98; Pulse 85; Resp 16; Pulse Ox 96% on R/A; jb4 01/08 00:00 BP 129 / 74; Pulse 81; Resp 16; Pulse Ox 94% on R/A; jb4 01:00 BP 123 / 81; Pulse 76; Resp 20; Pulse Ox 97% on R/A; jb4 02:00 BP 146 / 81; Pulse 70; Resp 16; Pulse Ox 100% on R/A; jb4 01/07 21:00 Body Mass Index 32.08 (104.33 kg, 180.34 cm) ll1 ED Course: 01/07 20:54 Patient arrived in ED. cl3 21:02 Triage completed. ll1 21:03 Arm band placed on. ll1 21:15 EKG done, by ED staff. jp3 21:47 Lefty Silva, RN is Primary Nurse. jb4 22:00 Initial lab(s) drawn, by me, sent to lab. Inserted saline lock: 20 gauge in right hand, jp3 using aseptic technique. Blood collected. Patient maintains SpO2 saturation greater than 95% on room air. 22:05 Bed in low position. Call light in reach. Side rails up X 1. Warm blanket given. Verbal jp3 reassurance given. compliance monitor on. Pulse ox on. NIBP on. 22:38 Maeve Mccormack FNP-C is [facility]. snw 22:38 Abdi Del Angel MD is Attending Physician. snw 01/08 00:40 EKG done, by ED staff, reviewed by Maeve DONATO. jb4 00:50 Lab(s) recollected, by me, sent to lab. jb4 01:00 EKG done, by ED staff, reviewed by Maeve DONATO. jb4 01:06 Justin Godwin is Hospitalizing Provider. snw 02:08 No provider procedures requiring assistance completed. Patient admitted, IV remains in jb4 place. Administered Medications: 01/07 22:49 Drug: fentaNYL (PF) 50 mcg {Note: Rass score 0.} Route: IVP; Site: right hand; jb4 23:20 Follow up: Response: No adverse reaction; Pain is decreased; RASS: Alert and Calm (0) 4 01/08 01:12 Drug: NS 0.9% 1000 ml Route: IV; Rate: 1 bolus; Site: right hand; jb4 02:30 Follow up: Response: No adverse reaction; IV Status: Infusion continued upon admission jb4 01:23 Not Given (Patient Refused): Aspirin Chewable Tablet 324 mg PO once; 81 mg tablets x 4 jb4 Outcome: 01:09 Decision to Hospitalize by Provider. snw 02:08 Admitted to Tele accompanied by nurse, via wheelchair, room 431, with chart, Report jb4 called to PRINCESS Gerber 02:08 Condition: stable 02:08 Discharge instructions given to patient, Instructed on the need for admit, Demonstrated understanding of instructions. 02:31 Patient left the ED. jb4 Signatures: Maeve Mccormack, CONCRETE POURER-C CONCRETE POURER-Csnw Lefty Silva, RN RN jb4 Padilla Hall jp3 Grecia Ruiz cl3 Paxton Ruiz RN RN ll1
--- NOTE | 2020-01-09 01:11 | EDPHYS ---
Physician Documentation [facility] Name: Shoaib Freitas Jr Age: 54 yrs Sex: Male : 1965 Arrival Date: 01/08/2020 Time: 20:54 Bed 17 Private MD: ED Physician Abdi Del Angel HPI: 01/07 23:04 This 54 yrs old Black Male presents to ER via Ambulatory with complaints of Chest Pain. snw 23:04 Onset: The symptoms/episode began/occurred acutely, 2 day(s) ago, and became snw persistent. Associated signs and symptoms: Pertinent positives: chest pain, Pertinent negatives: congestion, cough, fever, vomiting. Modifying factors: The patient symptoms are alleviated by nothing, the patient symptoms are aggravated by "at work". It is unknown whether or not the patient has had similar symptoms in the past. It is unknown whether or not the patient has recently seen a physician. 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 Historical: - Allergies: 21:03 No Known Allergies; ll1 - PMHx: 21:03 Pancreatitis; kidney transplant; Hypertension; history of dialysis; Gall Stones; ll1 - PSHx: 21:03 Kidney transplant; ll1 - Immunization history:: Flu vaccine is not up to date. - Social history:: Smoking status: Patient/guardian denies using tobacco, the patient reports quitting approximately 2 years ago. ROS: 23:04 Constitutional: Negative for fever, chills, and weight loss, Eyes: Negative for injury, snw pain, redness, and discharge, ENT: Negative for injury, pain, and discharge, Neck: Negative for injury, pain, and swelling, Respiratory: Negative for shortness of breath, cough, wheezing, and pleuritic chest pain, Abdomen/GI: Negative for abdominal pain, nausea, vomiting, diarrhea, and constipation, Back: Negative for injury and pain, : Negative for injury, bleeding, discharge, and swelling, MS/Extremity: Negative for injury and deformity, Skin: Negative for injury, rash, and discoloration, Neuro: Negative for headache, weakness, numbness, tingling, and seizure, Psych: Negative for depression, anxiety, suicide ideation, homicidal ideation, and hallucinations. 23:04 Cardiovascular: Positive for chest pain, palpitations. Exam: 23:04 Constitutional: This is a well developed, well nourished patient who is awake, alert, snw and in no acute distress. Head/Face: Normocephalic, atraumatic. Eyes: Pupils equal round and reactive to light, extra-ocular motions intact. Lids and lashes normal. Conjunctiva and sclera are non-icteric and not injected. Cornea within normal limits. Periorbital areas with no swelling, redness, or edema. ENT: Nares patent. No nasal discharge, no septal abnormalities noted. Tympanic membranes are normal and external auditory canals are clear. Oropharynx with no redness, swelling, or masses, exudates, or evidence of obstruction, uvula midline. Mucous membranes moist. Neck: Trachea midline, no thyromegaly or masses palpated, and no cervical lymphadenopathy. Supple, full range of motion without nuchal rigidity, or vertebral point tenderness. No Meningismus. Chest/axilla: Normal chest wall appearance and motion. Nontender with no deformity. No lesions are appreciated. Cardiovascular: Irregular, tachycardic rate and rhythm with a normal S1 and S2. No gallops, murmurs, or rubs. Normal PMI, no JVD. No pulse deficits. Respiratory: Lungs have equal breath sounds bilaterally, clear to auscultation and percussion. No rales, rhonchi or wheezes noted. No increased work of breathing, no retractions or nasal flaring. Abdomen/GI: Mildly taunt, non-tender, with normal bowel sounds. No distension or tympany. No guarding or rebound. No evidence of tenderness throughout. Back: No spinal tenderness. No costovertebral tenderness. Full range of motion. Skin: Warm, dry with normal turgor. Normal color with no rashes, no lesions, and no evidence of cellulitis. MS/ Extremity: Pulses equal, no cyanosis. Neurovascular intact. Full, normal range of motion. Neuro: Awake and alert, GCS 15, oriented to person, place, time, and situation. Cranial nerves II-XII grossly intact. Motor strength 5/5 in all extremities. Sensory grossly intact. Cerebellar exam normal. Normal gait. Psych: Awake, alert, with orientation to person, place and time. Behavior, mood, and affect are within normal limits. Vital Signs: 21:00 BP 144 / 103; Pulse 95; Resp 18; Temp 98.2; Pulse Ox 98% ; Weight 104.33 kg; Height 5 ll1 ft. 11 in. (180.34 cm); Pain 6/10; 22:00 BP 151 / 94; Pulse 87; Resp 16; Pulse Ox 95% on R/A; Pain 6/10; jb4 23:00 BP 152 / 98; Pulse 85; Resp 16; Pulse Ox 96% on R/A; jb4 01/08 00:00 BP 129 / 74; Pulse 81; Resp 16; Pulse Ox 94% on R/A; jb4 01:00 BP 123 / 81; Pulse 76; Resp 20; Pulse Ox 97% on R/A; jb4 02:00 BP 146 / 81; Pulse 70; Resp 16; Pulse Ox 100% on R/A; jb4 01/07 21:00 Body Mass Index 32.08 (104.33 kg, 180.34 cm) ll1 MDM: 01/07 22:47 Patient medically screened. snw 01/08 01:05 Data reviewed: vital signs, nurses notes. Data interpreted: Pulse oximetry: on room air snw is 94 %. Interpretation: acceptable. Counseling: I had a detailed discussion with the patient and/or guardian regarding: the historical points, exam findings, and any diagnostic results supporting the discharge/admit diagnosis, lab results, radiology results, the need for further work-up and treatment in the hospital. Physician consultation: Silas SALOMON was called at 01:05, was contacted at 01:05, regarding admission, to the telemetry unit. in the emergency department to see patient at 01:06. 01:09 Response to treatment: lead II, III, and avf with changes, creatinine higher than snw baseline. Pt not on Eliquis at this time. Will admit for obs and start on anticoagulants. 01/07 21:47 Order name: Basic Metabolic Panel 01/07 21:47 Order name: CBC with Diff 01/07 21:47 Order name: LFT's 01/07 21:47 Order name: Magnesium 01/07 21:47 Order name: NT PRO-BNP 01/07 21:47 Order name: PT-INR 01/07 21:47 Order name: Troponin (emerg Dept Use Only) 01/07 22:28 Order name: CBC with Automated Diff; Complete Time: 22:39 EDMS 01/07 22:47 Order name: Protime (+INR); Complete Time: 22:48 EDMS 01/07 22:50 Order name: Basic Metabolic Panel; Complete Time: 22:53 EDMS 01/07 22:50 Order name: Liver (Hepatic) Function; Complete Time: 22:53 EDMS 01/07 22:50 Order name: Troponin (Emerg Dept Use Only); Complete Time: 22:53 EDMS 01/07 22:50 Order name: NT PRO-BNP; Complete Time: 22:53 EDMS 01/07 22:50 Order name: Magnesium; Complete Time: 22:53 EDMS 01/07 21:47 Order name: XRAY Chest (1 view) 01/07 21:47 Order name: EKG; Complete Time: 21:48 01/07 21:47 Order name: Cardiac monitoring; Complete Time: 21:50 01/07 21:47 Order name: EKG - Nurse/Tech; Complete Time: 21:50 01/07 21:47 Order name: IV Saline Lock; Complete Time: 22:06 01/07 21:47 Order name: Labs collected and sent; Complete Time: 22:06 01/07 21:47 Order name: O2 Per Protocol; Complete Time: 21:50 01/07 21:47 Order name: O2 Sat Monitoring; Complete Time: 21:50 01/08 00:34 Order name: Repeat Cardiac Enzymes at: 0045; Complete Time: 00:58 w 01/08 00:34 Order name: EKG - Nurse/Tech; Complete Time: 00:58 [facility] 01/08 01:01 Order name: Troponin (emerg Dept Use Only) [facility] 01/08 01:44 Order name: COVID-19 [facility] 01/08 01:50 Order name: Troponin (Emerg Dept Use Only); Complete Time: 03:48 EDMS Administered Medications: 01/07 22:49 Drug: fentaNYL (PF) 50 mcg {Note: Rass score 0.} Route: IVP; Site: right hand; 4 23:20 Follow up: Response: No adverse reaction; Pain is decreased; RASS: Alert and Calm (0) [facility] 01/08 01:12 Drug: NS 0.9% 1000 ml Route: IV; Rate: 1 bolus; Site: right hand; jb4 02:30 Follow up: Response: No adverse reaction; IV Status: Infusion continued upon admission jb4 01:23 Not Given (Patient Refused): Aspirin Chewable Tablet 324 mg PO once; 81 mg tablets x 4 jb4 Disposition: 03:47 Co-signature as Attending Physician, Abdi Del Angel MD. pksay Disposition: 01/09/20 01:09 Hospitalization ordered by Justin Godwin for Observation. Preliminary diagnosis are Chest pain, unspecified, Volume depletion, Patient's other noncompliance with medication regimen - did not refill eliquis. - Bed requested for Telemetry/MedSurg (observation). - Status is Observation. jb4 - Condition is Stable. - Problem is new. - Symptoms are unchanged. Signatures: Dispatcher [employer] EDRI Nicki Puente RN Abdi Viramontes MD MD pkl Maeve Mccormack, METHODS EXAMINER-C METHODS EXAMINER-Csnw Shikha Young RN RN bb Lefty Silva RN RN jbPaxton Duncan RN RN ll1 Corrections: (The following items were deleted from the chart) 01:48 01:09 Hospitalization Ordered by Justin Godwin for Observation. Preliminary diagnosis mw is Chest pain, unspecified; Volume depletion; Patient's other noncompliance with medication regimen - did not refill eliquis. Bed requested for Telemetry/MedSurg (observation). Status is Observation. Condition is Stable. Problem is new. Symptoms are unchanged. snw 02:31 01:48 01/09/2020 01:09 Hospitalization Ordered by Justin Godwin for Observation. jb4 Preliminary diagnosis is Chest pain, unspecified; Volume depletion; Patient's other noncompliance with medication regimen - did not refill eliquis. Bed requested for Telemetry/MedSurg (observation). Status is Observation. Condition is Stable. Problem is new. Symptoms are unchanged. mw
[2020-01-09] MEDS ORDERED: NA CHLORIDE 0.9% 1,000 ML ONE (01:23)
[2020-01-09] MEDS ORDERED: ASPIRIN 81 MG CHEWABLE TABLET ONE (01:33)
--- NOTE | 2020-01-09 02:02 | P.HP ---
Certification for Inpatient Patient admitted to: Observation With expected LOS: <2 Midnights Patient will require the following post-hospital care: None Practitioner: I am a practitioner with admitting privileges, knowledge of patient current condition, hospital course, and medical plan of care. Services: Services provided to patient in accordance with Admission requirements found in Title 42 Section 412.3 of the Code of Federal Regulations <Silas Lindquist - Last Filed: 01/09/20 01:51> Patient History Date of Service: 01/09/20 Reason for admission: Chest pain History of Present Illness: 54-year-old male with a past medical history of kidney transplant 24 years ago, essential hypertension and history of dialysis but not currently on dialysis presents to the emergency room complaining of chest pain. States that this chest pain started 2 days ago and has become persistent. Patient denies any cough, dyspnea on exertion, fever, nausea vomiting. Patient sees his configuration technician every 6 months due to his kidney transplant. Patient also was diagnosed with a left leg DVT 2 months ago. He was started on Eliquis and states he ran out of medication. Not currently taking anticoagulation. In the emergency room patient is alert and oriented x3. He is calm and in no distress. Vitals are stable at blood pressure 123/81, pulse rate of 76, respiratory rate of 16 and O2 saturations of 97% on room air. His temperature was 98.2 on arrival. Blood work shows a creatinine elevated at 1.6. Patient's baseline was 1.18 on 09/18/2019 but has had creatinine is high is 1.46 on 08/30/2019. Chest x-ray with no acute cardiopulmonary process. Troponin was negative at <0.02 x1. Will continue trending troponins. Subtle EKG changes on leads II and III. Patient was given aspirin in the ED. Describes the chest pain as persistent. In the center of the chest. Patient will be placed in observation and further evaluated. 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 - Family History Mother -: Hypertension, Diabetes Father -: Hypertension, Diabetes - Social History Alcohol use: Yes CD- Drugs: No Caffeine use: Yes <Silas Lindquist - Last Filed: 01/09/20 01:51> Date of Service: 01/09/20 <luiz arteaga - Last Filed: 01/09/20 16:42> Allergies No Known Allergies Allergy (Verified 09/09/19 21:27) Home Medications: Mycophenolate Mofetil [Cellcept] 500 mg PO DAILY 11/26/18 cycloSPORINE [Sandimmune] 100 mg PO BID 11/26/18 dilTIAZem HCl [Diltiazem 24Hr ER (LA)] 240 mg PO DAILY 11/26/18 Apixaban [Eliquis] 5 mg PO BID #60 01/09/20 Review of Systems General: As per HPI Eyes: Unremarkable ENT: Unremarkable Respiratory: Unremarkable Cardiovascular: Chest Pain, As per HPI Gastrointestinal: Unremarkable Genitourinary: Unremarkable Musculoskeletal: Unremarkable Integumentary: Unremarkable Neurological: Unremarkable Lymphatics: Unremarkable <Silas Lindquist - Last Filed: 01/09/20 01:51> Physical Examination - Vital Signs Temperature: 98.2 F Blood Pressure: 123/81 Pulse: 76 Respirations: 16 Pulse Ox (%): 97 (RA) - Physical Exam General: Alert, In no apparent distress, Oriented x3 HEENT: Atraumatic, Normocephalic, PERRLA, Mucous membr. moist/pink Neck: Supple, No Thyromegaly, Other (Trachea midline) Respiratory: Clear to auscultation bilaterally, Normal air movement Cardiovascular: No edema, Normal pulses Capillary refill: <2 Seconds Gastrointestinal: Normal bowel sounds, Soft and benign, Non-distended Musculoskeletal: No clubbing, No swelling, No contractures, No erythema Integumentary: No rashes, No breakdown, No significant lesion, No tenderness/swelling Neurological: Normal gait, Normal speech, Normal strength at 5/5 x4 extr, Normal tone - Studies Laboratory Data (last 24 hrs) 01/08/20 22:00: PT 10.8, INR 0.91 01/08/20 22:00: WBC 8.6, Hgb 13.9, Hct 40.7, Plt Count 271 01/08/20 22:00: Sodium 142, Potassium 3.8, BUN 19 H, Creatinine 1.63 H, Glucose 109 H, Magnesium 2.1, Total Bilirubin 0.3, AST 29, ALT 52, Alkaline Phosphatase 88 <Silas Lindquist - Last Filed: 01/09/20 01:51> - Studies Laboratory Data (last 24 hrs) 01/08/20 22:00: PT 10.8, INR 0.91 01/08/20 22:00: WBC 8.6, Hgb 13.9, Hct 40.7, Plt Count 271 01/08/20 22:00: Sodium 142, Potassium 3.8, BUN 19 H, Creatinine 1.63 H, Glucose 109 H, Magnesium 2.1, Total Bilirubin 0.3, AST 29, ALT 52, Alkaline Phosphatase 88 Microbiology Data (last 24 hrs): 01/09/20 01:45 Nasopharnyx Coronavirus COVID-19 PCR - Final <hawaluiz steward - Last Filed: 01/09/20 16:42> Assessment and Plan - Plan Impression: Chest pain with possible subtle changes on EKG leads II/III: Acute kidney injury: History of kidney transplant 24 years ago: Essential hypertension: History of DVT left leg: Plan: Chest pain with possible subtle changes on EKG leads II/III: Continue telemetry. Patient given aspirin in the ED. Will order echocardiogram for a.m.. Troponin negative x1. Continue to trend troponins q.d. 6 hr. Cardiology consulted. Acute kidney injury: Creatinine of 1.6 on admission. Baseline was 1.18 on 09/18/2019. Creatinine was 1.46 on 08/30/2019. Continue gentle IV hydration. Monitor renal function. History of kidney transplant 24 years ago: Patient is compliant with his rejection medications. Sees his Interventional Pain Physician every 6 months. Essential hypertension: Will resume all medications once verified. States he is compliant with his blood pressure medications. History of DVT left leg: Patient was diagnosed with a DVT of left leg in November of this year. He was started on Eliquis. Patient states he ran out of medication and has not continued his Eliquis. Complaining of right leg pain. Will order ultrasound bilateral for re-evaluation. Discharge Plan: Home Plan to discharge in: 48 Hours - Advance Directives Does patient have a Living Will: No Does patient have a Durable POA for Healthcare: No - Code Status/Comfort Care Code Status Assessed: Yes Time Spent Managing Pts Care (In Minutes): 55 <Silas Lindquist - Last Filed: 01/09/20 01:51> - Problems (Diagnosis) (1) Chest pain Current Visit: Yes Status: Acute (2) History of DVT (deep vein thrombosis) Current Visit: Yes Status: Acute (3) History of renal transplantation Current Visit: No Status: Chronic Physician Review: Patient Assessed, Agree with Above Assessment and Plan Physician Review Additional Text: Chest pain. History of DVT. Plan: Trend troponin Cardiology consult Bessye Kevyn. Check venous Doppler of lower extremities. <luiz arteaga - Last Filed: 01/09/20 16:42>
[2020-01-09 02:49] VITALS: BMI 33.3
[2020-01-09] MEDS: MORPHINE 2 MG/ML SYR IV PRN ×6 (02:58→23:55)
--- NOTE | 2020-01-09 07:26 | RAD REPORT ---
EXAM DESCRIPTION: RAD - Chest Single View - 01/08/2020 10:26 pm CLINICAL HISTORY: CHEST PAIN COMPARISON: September 08 TECHNIQUE: AP portable chest image was obtained 01/08/2020 10:26 pm . FINDINGS: No focal mass or consolidation. Low lung volumes accentuate interstitial pattern. Clear ch caleb from comparison is not identified. Heart and vasculature are normal. No measurable pleural effus ion and no pneumothorax. No acute bony abnormality seen. No acute aortic findings suspected. IMPRESSION: Mild, chronic interstitial opacification potentially masking early edema or infiltrate. No focal mass or consolidation.
[2020-01-09] MEDS ORDERED: NA CHLORIDE 0.9% 500 ML IV ONE (07:37)
--- NOTE | 2020-01-09 08:33 | RAD REPORT ---
EXAM DESCRIPTION: US - Extrem Venous W Compress Last - 01/09/2020 8:23 am CLINICAL HISTORY: History of DVT, right leg pain COMPARISON: None. DVT study September 16, 2019 TECHNIQUE: Real-time sonographic evaluation of the bilateral lower extremity deep venous systems was performed. FINDINGS: Normal compressibility, flow augmentation, phasic flow and spontaneous flow are identified in the right lower extremity common femoral, superficial femoral, popliteal and posterior tibial vei ns. No intraluminal filling defects seen. Normal compressibility flow augmentation and spontaneous flow identified in the left common femoral a nd superficial femoral veins. Again noted is the old thrombus within the left popliteal vein. No prop agation of new thrombus. IMPRESSION: No DVT in the right lower extremity. No acute left leg DVT. 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
[2020-01-09] MEDS ORDERED: HEPARIN 5000 UNIT/ML 1 ML VIAL SQ SCH (09:00)
[2020-01-09] MEDS: CYCLOSPORINE 100 MG PO SCH ×2 (09:00→21:00)
[2020-01-09] MEDS: ASPIRIN EC 81 MG TAB PO SCH (09:00)
[2020-01-09] MEDS: HOME MED 1 EA UNK (Mycophenolate Mofetil [Cellcept] 500 MG) PO SCH (09:00)
[2020-01-09] MEDS: DILTIAZEM HCL 120 MG SR CAP PO SCH (09:06)
[2020-01-09] MEDS: NA CHLORIDE 0.9% 1,000 ML IV SCH ×2 (09:07→16:00)
[2020-01-09] MEDS: APIXABAN 5 MG TABLET PO SCH ×2 (09:07→19:53)
--- NOTE | 2020-01-09 11:17 | ECHO ---
HEIGHT: 5 ft 11 in WEIGHT: 239 lb 0 oz DATE OF STUDY: 01/09/[address]: Silas Lindquist 2-DIMENSIONAL: YES M.MODE: YES DOPPLER: YES COLOR FLOW: YES TDS: NO PORTABLE: NO DEFINITY: NO BUBBLE STUDY: NO DIAGNOSIS: CHEST PAIN CARDIAC HISTORY: CATHERIZATION: NO SURGERY: NO PROSTHETIC VALVE: NO PACEMAKER: NO MEASUREMENTS (cm) DIASTOLIC (NORMALS) SYSTOLIC (NORMALS) IVSd 1.1 (0.6-1.2) LA Diam 3.3 (1.9-4.0) LVEF 53% LVIDd 4.1 (3.5-5.7) LVIDs 3.0 (2.0-3.5) %FS 27% LVPWd 1.2 (0.6-1.2) Ao Diam 3.0 (2.0-3.7) 2 DIMENSIONAL ASSESSMENT: RIGHT ATRIUM: NORMAL LEFT ATRIUM: NORMAL RIGHT VENTRICLE: NORMAL LEFT VENTRICLE: NORMAL TRICUSPID VALVE: NORMAL MITRAL VALVE: NORMAL PULMONIC VALVE: NORMAL AORTIC VALVE: NORMAL PERICARDIAL EFFUSION: NONE AORTIC ROOT: NORMAL LEFT VENTRICULAR WALL MOTION: NORMAL DOPPLER/COLOR FLOW: NORMAL COMMENTS: NORMAL LEFT VENTRICULAR EJECTION FRACTION 55-60%. NORMAL WALL MOTION. TECHNOLOGIST: Usha YOUSIF
[2020-01-09 14:16] LABS: Potassium 3.5 mmol/L (3.5-5.1)
--- NOTE | 2020-01-09 14:40 | CON ---
Date of Consultation: 01/09/2020 Reason For Consultation: Chest pain. History Of Present Illness: This is a 54-year-old male with history of DVT, supposed to be on Eliqui s for that; however, he ran out of the medications, currently not anticoagulated. He has history of hypertension, presented to the emergency room with 2 days' history of chest pain that is constant, wo rsens at time and not related to exertion along with shortness of breath. Denies having any cough. No fever. No nausea, vomiting, or diarrhea. Evaluation by bedside, the patient is comfortable. No complaints. Past Medical History: As outlined above in HPI. Medications: Refer to reconciliation sheet for detailed list. Allergies: NO KNOWN DRUG ALLERGIES. Social History: Does not drink or use any drugs. He is a smoker. Family History: No premature coronary artery disease or cancer. Review of Systems: All systems reviewed and they were negative except what mentioned in the HPI. Physical Examination: Vital Signs: Temperature is 97.9, pulse 70, breathing 16, blood pressure is 142/80, saturating 95% o n room air. General: Pleasant, a middle-aged male, in no distress. Head and Neck: Pupils are equal and reactive to light. Intact eye movements. No JVD. No cervical lymphadenopathy. Neck is supple. Thyroid is not enlarged. Lungs: Clear to auscultation bilaterally. No rhonchi, rales, or crackles. No accessory muscle use. Heart: Regular rate and rhythm. No extra sounds. Abdomen: Soft, nontender. Bowel sounds positive. No organomegaly. No masses or hernia. No rigidi ty or rebound. Extremities: No edema, clubbing, or cyanosis. Intact pulses. Skin: No rashes. Neurologic: Alert, awake, oriented x3. No acute focal deficits appreciated. Investigations: Troponin 2 sets were negative and creatinine is 1.63. Assessment And Recommendations: I looked at the echocardiogram. His ejection fraction is normal and totally normal echo. Cardiac enzymes are negative. The cardiac etiology of chest pain is unlikely. Recommend stress test as an outpatient; however, with a history of DVT and the presence of shortnes s of breath and chest pain that is atypical for cardiac disease, recommend V/Q scan to look for pulmo nary embolus and recommend to restart anticoagulation as the patient recently diagnosed with DVT. V/ Q scan to be obtained due to the elevated creatinine and from Cardiology standpoint, the patient can be followed in the office in 2-3 weeks postdischarge and arrange for exercise stress test. /ASHLEY Voice ID: [id number] Report ID: [id number]
--- NOTE | 2020-01-09 16:29 | P.DS ---
Admission Date: 01/09/20 Discharge Date: 01/09/20 Disposition: ROUTINE DISCHARGE Discharge Condition: FAIR Reason for Admission: Chest pain Consultations: Cardiology-Dr. Arroyo. - Problems (1) Chest pain Current Visit: Yes Status: Acute (2) History of DVT (deep vein thrombosis) Current Visit: Yes Status: Acute (3) History of renal transplantation Current Visit: No Status: Chronic Vital Signs/Physical Exam: Temp Pulse Resp BP Pulse Ox 97.9 F 70 16 142/80 H 95 01/09/20 12:00 01/09/20 12:00 01/09/20 12:00 01/09/20 12:00 01/09/20 12:00 Laboratory Data at Discharge: WBC 8.6 K/uL (4.3-10.9) 01/08/20 22:00 Hgb 13.9 g/dL (13.6-17.9) 01/08/20 22:00 Hct 40.7 % (39.6-49.0) 01/08/20 22:00 Plt Count 271 K/uL (152-406) 01/08/20 22:00 PT 10.8 SECONDS (9.5-12.5) 01/08/20 22:00 INR 0.91 01/08/20 22:00 Sodium 142 mmol/L (136-145) 01/09/20 13:17 Potassium 3.5 mmol/L (3.5-5.1) 01/09/20 13:17 BUN 17 mg/dL (7-18) 01/09/20 13:17 Creatinine 1.25 mg/dL (0.55-1.3) 01/09/20 13:17 Glucose 139 mg/dL (74-106) H 01/09/20 13:17 Magnesium 2.1 mg/dL (1.8-2.4) 01/08/20 22:00 Total Bilirubin 0.3 mg/dL (0.2-1.0) 01/08/20 22:00 AST 29 U/L (15-37) 01/08/20 22:00 ALT 52 U/L (12-78) 01/08/20 22:00 Alkaline Phosphatase 88 U/L (45-117) 01/08/20 22:00 Troponin I < 0.02 ng/mL (0.0-0.045) 01/09/20 13:17 Triglycerides 256 mg/dL (<150) H 01/09/20 06:37 Cholesterol 188 mg/dL (<200) 01/09/20 06:37 HDL Cholesterol 44 mg/dL (40-60) 01/09/20 06:37 Cholesterol/HDL Ratio 4.27 01/09/20 06:37 Home Medications: Mycophenolate Mofetil [Cellcept] 500 mg PO DAILY 11/26/18 cycloSPORINE [Sandimmune] 100 mg PO BID 11/26/18 dilTIAZem HCl [Diltiazem 24Hr ER (LA)] 240 mg PO DAILY 11/26/18 Apixaban [Eliquis] 5 mg PO BID #60 01/09/20 New Medications: Apixaban [Eliquis] 5 mg PO BID #60 Diet: AHA Activity: Ad miguel angel Followup: Sumit Arroyo MD [ACTIVE - CAN ADMIT] - (Within 2 weeks.)
--- NOTE | 2020-01-09 16:49 | P.PN ---
Date of Service: 01/09/20 Patient reports persistent mild chest pain. Troponin trended negative. Echocardiogram unremarkable. Patient hydrated with IV normal saline to treat AUDIE. Serum creatinine has improved with IV fluid. Considering CTA thorax tomorrow if creatinine remain normal otherwise will obtain a V/Q scan to assess for PE given history of DVT. Eliquis resumed. Patient started on aspirin. Cardiology input appreciated. Dr. Arroyo recommend outpatient stress test. Continue renal transplant medications.
[2020-01-09] MEDS ORDERED: ACETAMINOPHEN 325 MG TABLET PO PRN (23:30)
[2020-01-10] MEDS: MORPHINE 2 MG/ML SYR IV PRN ×2 (04:05→08:24)
[2020-01-10 06:00] VITALS: O2SAT 98
[2020-01-10] MEDS: DILTIAZEM HCL 120 MG SR CAP PO SCH (08:24)
[2020-01-10] MEDS: APIXABAN 5 MG TABLET PO SCH (08:25)
[2020-01-10] MEDS: ASPIRIN EC 81 MG TAB PO SCH (08:25)
--- NOTE | 2020-01-10 08:48 | RAD REPORT ---
EXAM DESCRIPTION: NM - Vent Perfusion VQ Scan - 01/10/2020 7:45 am CLINICAL HISTORY: Chest pain COMPARISON: January 08, 2020 chest x-ray TECHNIQUE: 20.3 Mci [id number] was administered by inhalation. First breath, equilibrium, and washout images of the lungs obtained 7.3 millicuries Technetium-99 MAA was administered intravenously. Anterior, posterior, lateral and ob lique views of the lungs were taken. FINDINGS: The lungs demonstrate relatively homogeneous radiotracer activity on ventilation and perfu mich sequences. No mismatched segmental or lobar perfusion defects are seen. IMPRESSION: No evidence of a pulmonary embolus
[2020-01-10] MEDS: CYCLOSPORINE 100 MG PO SCH (09:00)
[2020-01-10] MEDS: HOME MED 1 EA UNK (Mycophenolate Mofetil [Cellcept] 500 MG) PO SCH (09:00)
[2020-01-10 10:25] VITALS: BP 143/92; TEMP 97.9
--- NOTE | 2020-01-10 10:53 | P.DS ---
Admission Date: 01/09/20 Discharge Date: 01/10/20 Disposition: ROUTINE DISCHARGE Discharge Condition: FAIR Reason for Admission: Chest pain Consultations: Cardiology - Dr. Arroyo / Janina Procedures: CXR 01/07: Mild, chronic interstitial opacification potentially masking early edema or infiltrate. No focal mass or consolidation. b/l venous U/S 01/08: IMPRESSION: No DVT in the right lower extremity. No acute left leg DVT. 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 TTE 01/08: NORMAL LEFT VENTRICULAR EJECTION FRACTION 55-60%. NORMAL WALL MOTION. VQ Scan 01/09: The lungs demonstrate relatively homogeneous radiotracer activity on ventilation and perfusion sequences. No mismatched segmental or lobar perfusion defects are seen. Problem List Chest pain Acute kidney injury History of kidney transplant 24 years ago Essential hypertension History of DVT left leg Brief History of Present Illness: 54-year-old male, PMH: kidney transplant 24 years ago, essential hypertension and history of dialysis but not currently on dialysis presented to the ED complaining of chest pain. States that this chest pain started 2 days ago and has become persistent. Patient denies any cough, dyspnea on exertion, fever, nausea vomiting. Patient also was diagnosed with a left leg DVT 2 months ago. He was started on Eliquis and states he ran out of medication. Not currently taking anticoagulation. Hospital Course: Patient was admitted for further evaluation/management of his chest pain and AUDIE. His AUDIE improved (Cr from 1.63 -> 1.25) with gentle IVF hydration on admission. His chest pain was felt to be a non-cardiac etiology. His troponins remained negative x5, echocardiogram was normal, cardiology was consulted and recommended outpatient stress testing in 2-3 weeks. Given his h/o DVT and off anticoagulation he did undergo VQ scan which was negative for PE. He was discharged home to f/u with cardiology and given a new prescription for Eliquis since he reportedly ran out. Vital Signs/Physical Exam: Temp Pulse Resp BP Pulse Ox 97.9 F 79 18 143/92 H 98 01/10/20 08:00 01/10/20 08:00 01/10/20 08:00 01/10/20 08:00 01/10/20 08:00 General: Alert, In no apparent distress HEENT: Mucous membr. moist/pink Neck: No LAD Respiratory: Clear to auscultation bilaterally Cardiovascular: No edema, Regular rate/rhythm, Normal S1 S2 Gastrointestinal: Soft and benign, Non-distended, No tenderness Musculoskeletal: No swelling Integumentary: No rashes Neurological: Normal speech, Normal affect Laboratory Data at Discharge: WBC 8.6 K/uL (4.3-10.9) 01/08/20 22:00 Hgb 13.9 g/dL (13.6-17.9) 01/08/20 22:00 Hct 40.7 % (39.6-49.0) 01/08/20 22:00 Plt Count 271 K/uL (152-406) 01/08/20 22:00 PT 10.8 SECONDS (9.5-12.5) 01/08/20 22:00 INR 0.91 01/08/20 22:00 Sodium 142 mmol/L (136-145) 01/09/20 13:17 Potassium 3.5 mmol/L (3.5-5.1) 01/09/20 13:17 BUN 17 mg/dL (7-18) 01/09/20 13:17 Creatinine 1.25 mg/dL (0.55-1.3) 01/09/20 13:17 Glucose 139 mg/dL (74-106) H 01/09/20 13:17 Magnesium 2.1 mg/dL (1.8-2.4) 01/08/20 22:00 Total Bilirubin 0.3 mg/dL (0.2-1.0) 01/08/20 22:00 AST 29 U/L (15-37) 01/08/20 22:00 ALT 52 U/L (12-78) 01/08/20 22:00 Alkaline Phosphatase 88 U/L (45-117) 01/08/20 22:00 Troponin I < 0.02 ng/mL (0.0-0.045) 01/10/20 00:32 Triglycerides 256 mg/dL (<150) H 01/09/20 06:37 Cholesterol 188 mg/dL (<200) 01/09/20 06:37 HDL Cholesterol 44 mg/dL (40-60) 01/09/20 06:37 Cholesterol/HDL Ratio 4.27 01/09/20 06:37 Home Medications: Mycophenolate Mofetil [Cellcept] 500 mg PO DAILY 11/26/18 cycloSPORINE [Sandimmune] 100 mg PO BID 11/26/18 dilTIAZem HCl [Diltiazem 24Hr ER (LA)] 240 mg PO DAILY 11/26/18 Apixaban [Eliquis] 5 mg PO BID #60 01/09/20 New Medications: Apixaban [Eliquis] 5 mg PO BID #60 Patient Discharge Instructions: Follow up with Cardiology (Dr. Arroyo) in 2-3 weeks for outpatient stress test. Follow up with PCP within 1 week Diet: AHA Activity: Ad miguel angel Followup: Sumit Arroyo MD [ACTIVE - CAN ADMIT] - (Within 2 weeks.) Time spent managing pt's care (in minutes): 35
--- NOTE | 2020-01-11 05:38 | PN ---
Date of Progress Note: 01/10/2020 Subjective: Mr. Freitas was seen by Dr. Arroyo on 01/09/2020 because of hypertension, recent DVT. P aron is on Eliquis. A V/Q scan was suggested by Dr. Arroyo because of elevated D-dimer and elevate d creatinine, avoiding CT angiogram. I am not so sure this has been done yet. I will discuss the ca se further with Dr. Godwin and Dr. Stephenson. From a cardiovascular standpoint, he has ruled out for gab cardial infarction and, whenever he goes home, I think patient needs to be set up for an outpatient s tress test. He should continue his Eliquis at home on his present regimen. BURKE/MODL Voice ID: [id number] Report ID: [id number]
== END 2020-01-10 11:31 | disposition home or self-care (01) ==
LOC: ER 20:53 → ERHOLD 01-09 01:50 → 4TH 01-09 01:55
PROVIDERS: ADMIT Hospitalist; ATTEND Hospitalist
DX: R07.9 Chest pain, unspecified (principal); M79.604 Pain in right leg; Z86.718 Personal history of other venous thrombosis and embolism; Z20.828 Contact with and (suspected) exposure to other viral communicable diseases; I10 Essential (primary) hypertension; Z79.01 Long term (current) use of anticoagulants; R79.1 Abnormal coagulation profile; Z94.0 Kidney transplant status; N17.9 Acute kidney failure, unspecified; F17.200 Nicotine dependence, unspecified, uncomplicated; Z91.14 Patient's other noncompliance with medication regimen
CPT/HCPCS: 96361; 93005 ×3; 93306; 85025; 80048 ×2; 36415 ×2; 83735; 85610; 80061; 80076; 84484 ×6; 83880; 71045; 93970; 78582; 96374; 99285; U0002; J3010; J2270 ×8; J7040; J7030; A9558; A9540; G0378 ×3

== ENCOUNTER 2020-02-02 07:48 | Emergency (ER) | payer OTHER ==
--- OUTSIDE RECORDS SUMMARY | 2020-02-02 08:24 | XMS REPORT | Clinical Summary ---
:1965 Author Organization [facility] Address [address] [place] [address] Care Team Providers Name Role Phone Satish [...] Encounters Date Type Specialty Care Team Description 01/30/2020 Lab Lab Juan Klein MD Kidney transplant status (Primary Dx); Essential (prim francisco) hypertension; Proteinuria, un specified; Anemia in chron ic kidney disease (CODE); Chronic kidney disease; Disorder of mariela sphorus metabolism, unspecified; Hypermagnesemia 01/30/2020 Travel 01/23/2020 Lab Lab Juan Klein MD Cancel ed (Scheduling Error) 01/23/2020 Travel 01/09/2020 Lab Lab Juan Klein MD Cancel ed (Scheduling Error) 01/09/2020 Travel 07/04/2019 Lab Lab Jean Paul Stone MD Kidney transplant status (Primary Dx); Anemia in chron ic kidney disease (CODE); Hypermagnesemia ; Proteinuria, un specified; Essential (prim francisco) hypertension; Chronic kidney disease, stage 3 (moderate) (HCC); Disorder of mariela sphorus metabolism, unspecified 07/04/2019 Travel 03/02/2019 Lab Juan Zuniga MD Kidney replaced by transplant (Primary Dx); Essential hyper tension, malignant; Proteinuria, un specified type; Anemia of chron ic renal failure, unspecified CKD stage; Disorder of mariela sphorus metabolism; Hypermagnesemia ; Chronic kidney disease, stage III (moderate) (HCC) 02/21/2019 Lab Juan Zuniga MD Kidney replaced by transplant (Primary Dx); Anemia of chron ic renal failure, unspecified CKD stage; Hypermagnesemia ; Proteinuria, un specified type; Essential hyper tension, malignant; Chronic kidney disease, stage III (moderate) (HCC); Disorder of mariela sphorus metabolism after 02/01/2019 Surgical History Surgery Date Site/Laterality Comments TRANSPLANTATION RENAL 04/13/1997 - 04/12/1998 CHOLECYSTECTOMY, 01/16/2018 Abdomen/N/A Procedure: LAPA ROSCOPIC LAPAROSCOPIC CHOLECYSTECTOMY AND INTRAOPERATIVE CHOLANGIOGRAM; Surgeon: Cindy heard MD; Location: [facility]; Service: General ; Laterality: N/A; Medical History Medical History Date Comments Hypertension Social History Tobacco Use Types Packs/Day Years Used Date Former Smoker Smokeless Tobacco: Never Used Comments: "Quit 2-3 months ago" Alcohol Use Drinks/Week oz/Week Comments No Sex Assigned at Date Recorded Not on file COVID-19 Exposure Response Date Recorded In the last month, have you been in contact with No / Unsure 01/30/2020 4:42 AM CDT someone who 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 Last Filed Vital Signs Not on file Plan of Treatment Health Maintenance Due Date Last Done Comments COLONOSCOPY SCREENING 02/28/2016 SHINGLES VACCINES (#1) 02/28/2016 INFLUENZA VACCINE 11/12/2019 Procedures Procedure Name Priority Date/Time Associated Comments Diagnosis ESTIMATED GFR Routine 01/30/2020 7:52 Results fo r this AM CDT procedure are i n the results section. CYCLOSPORINE LEVEL, Routine 01/30/2020 7:52 Kidney transplant Results for this RANDOM AM CDT status procedure are in Essential (primary) the resu lts hypertension section. Proteinuria, unspecified Anemia in chronic kidney disease (CODE) Chronic kidney disease Disorder of phosphorus metabolism, unspecified Hypermagnesemia PROTEIN, URINE, RANDOM Routine 01/30/2020 7:52 Kidney transpl ant Results for this AM CDT status procedure are in Essential (primary) the resu lts hypertension section. Proteinuria, unspecified Anemia in chronic kidney disease (CODE) Chronic kidney disease Disorder of phosphorus metabolism, unspecified Hypermagnesemia CREATININE LEVEL, Routine 01/30/2020 7:52 Kidney transplant R esults for this URINE, RANDOM AM CDT status procedure are in Essential (primary) the resu lts hypertension section. Proteinuria, unspecified Anemia in chronic kidney disease (CODE) Chronic kidney disease Disorder of phosphorus metabolism, unspecified Hypermagnesemia URINALYSIS SCREEN AND Routine 01/30/2020 7:52 Kidney transpla nt Results for this MICROSCOPY, WITH AM CDT status procedure are in REFLEX TO CULTURE Essential (primary) the results hypertension section. Proteinuria, unspecified Anemia in chronic kidney disease (CODE) Chronic kidney disease Disorder of phosphorus metabolism, unspecified Hypermagnesemia LDH Routine 01/30/2020 7:52 Kidney transplant Result s for this AM CDT status procedure are in Essential (primary) the resu lts hypertension section. Proteinuria, unspecified Anemia in chronic kidney disease (CODE) Chronic kidney disease Disorder of phosphorus metabolism, unspecified Hypermagnesemia URIC ACID LEVEL Routine 01/30/2020 7:52 Kidney transplant Res ults for this AM CDT status procedure are in Essential (primary) the resu lts hypertension section. Proteinuria, unspecified Anemia in chronic kidney disease (CODE) Chronic kidney disease Disorder of phosphorus metabolism, unspecified Hypermagnesemia PHOSPHORUS LEVEL Routine 01/30/2020 7:52 Kidney transplant Re sults for this AM CDT status procedure are in Essential (primary) the resu lts hypertension section. Proteinuria, unspecified Anemia in chronic kidney disease (CODE) Chronic kidney disease Disorder of phosphorus metabolism, unspecified Hypermagnesemia MAGNESIUM LEVEL Routine 01/30/2020 7:52 Kidney transplant Res ults for this AM CDT status procedure are in Essential (primary) the resu lts hypertension section. Proteinuria, unspecified Anemia in chronic kidney disease (CODE) Chronic kidney disease Disorder of phosphorus metabolism, unspecified Hypermagnesemia HC COMPLETE BLD COUNT Routine 01/30/2020 7:52 Kidney transpla nt Results for this W/AUTO DIFF AM CDT status procedure are in Essential (primary) the resu lts hypertension section. Proteinuria, unspecified Anemia in chronic kidney disease (CODE) Chronic kidney disease Disorder of phosphorus metabolism, unspecified Hypermagnesemia COMPREHENSIVE Routine 01/30/2020 7:52 Kidney transplant Resul ts for this METABOLIC PANEL AM CDT status procedure are in Essential (primary) the resu lts hypertension section. Proteinuria, unspecified Anemia in chronic kidney disease (CODE) Chronic kidney disease Disorder of phosphorus metabolism, unspecified Hypermagnesemia URINE CULTURE Routine 01/30/2020 7:52 Results fo r this AM CDT procedure are i n the results section. ESTIMATED GFR Routine 07/04/2019 9:01 Results fo [...] 8:54 Resu lts for this RANDOM AM [employer] procedure are i n the results section. ESTIMATED GFR Routine 03/02/2019 8:54 Results fo r this AM [employer] procedure are i n the results section. [id number] TACROLIMUS Routine 03/02/2019 8:54 Kidney replaced by R esults for this LEVEL, RANDOM AM [employer] transplant procedure are in Essential the results hypertension, section. malignant Proteinuria, unspecified type Anemia of chronic renal failure, unspecified CKD stage Disorder of phosphorus metabolism Hypermagnesemia Chronic kidney disease, stage III (moderate) (HCC) PROTEIN, URINE, RANDOM Routine 03/02/2019 8:54 Kidney replace d by Results for this AM [employer] transplant procedure are in Essential the results hypertension, section. malignant Proteinuria, unspecified type Anemia of chronic renal failure, unspecified CKD stage Disorder of phosphorus metabolism Hypermagnesemia Chronic kidney disease, stage III (moderate) (HCC) CREATININE LEVEL, Routine 03/02/2019 8:54 Kidney replaced by Results for this URINE, RANDOM AM [employer] transplant procedure are in Essential the results hypertension, section. malignant Proteinuria, unspecified type Anemia of chronic renal failure, unspecified CKD stage Disorder of phosphorus metabolism Hypermagnesemia Chronic kidney disease, stage III (moderate) (HCC) URINALYSIS SCREEN AND Routine 03/02/2019 8:54 Kidney replaced by Results for this MICROSCOPY, WITH AM [employer] transplant procedure are in REFLEX TO CULTURE Essential the result s hypertension, section. malignant Proteinuria, unspecified type Anemia of chronic renal failure, unspecified CKD stage Disorder of phosphorus metabolism Hypermagnesemia Chronic kidney disease, stage III (moderate) (HCC) LDH Routine 03/02/2019 8:54 Kidney replaced by Resul ts for this AM [employer] transplant procedure are in Essential the results hypertension, section. malignant Proteinuria, unspecified type Anemia of chronic renal failure, unspecified CKD stage Disorder of phosphorus metabolism Hypermagnesemia Chronic kidney disease, stage III (moderate) (HCC) URIC ACID LEVEL Routine 03/02/2019 8:54 Kidney replaced by Re sults for this AM [employer] transplant procedure are in Essential the results hypertension, section. malignant Proteinuria, unspecified type Anemia of chronic renal failure, unspecified CKD stage Disorder of phosphorus metabolism Hypermagnesemia Chronic kidney disease, stage III (moderate) (HCC) PHOSPHORUS LEVEL Routine 03/02/2019 8:54 Kidney replaced by R esults for this AM [employer] transplant procedure are in Essential the results hypertension, section. malignant Proteinuria, unspecified type Anemia of chronic renal failure, unspecified CKD stage Disorder of phosphorus metabolism Hypermagnesemia Chronic kidney disease, stage III (moderate) (HCC) MAGNESIUM LEVEL Routine 03/02/2019 8:54 Kidney replaced by Re sults for this AM [employer] transplant procedure are in Essential the results hypertension, section. malignant Proteinuria, unspecified type Anemia of chronic renal failure, unspecified CKD stage Disorder of phosphorus metabolism Hypermagnesemia Chronic kidney disease, stage III (moderate) (HCC) HC COMPLETE BLD COUNT Routine 03/02/2019 8:54 Kidney replaced by Results for this W/AUTO DIFF AM [employer] transplant procedure are in Essential the results hypertension, section. malignant Proteinuria, unspecified type Anemia of chronic renal failure, unspecified CKD stage Disorder of phosphorus metabolism Hypermagnesemia Chronic kidney disease, stage III (moderate) (HCC) COMPREHENSIVE Routine 03/02/2019 8:54 Kidney replaced by Resu lts for this METABOLIC PANEL AM [employer] transplant procedure are in Essential the results hypertension, section. malignant Proteinuria, unspecified type Anemia of chronic renal failure, unspecified CKD stage Disorder of phosphorus metabolism Hypermagnesemia Chronic kidney disease, stage III (moderate) (HCC) URINE CULTURE Routine 03/02/2019 8:54 Results fo r this AM [employer] procedure are i n the results section. ESTIMATED GFR Routine 02/21/2019 7:56 Results fo r this AM [employer] procedure are i n the results section. CYCLOSPORINE LEVEL, Routine 02/21/2019 7:56 Kidney replaced b y Results for this RANDOM AM [employer] transplant procedure are in Anemia of chronic the result s renal failure, section. unspecified CKD stage Hypermagnesemia Proteinuria, unspecified type Essential hypertension, malignant Chronic kidney disease, stage III (moderate) (HCC) Disorder of phosphorus metabolism COMPREHENSIVE Routine 02/21/2019 7:56 Kidney replaced by Resu lts for this METABOLIC PANEL AM [employer] transplant procedure are in Anemia of chronic the result s renal failure, section. unspecified CKD stage Hypermagnesemia Proteinuria, unspecified type Essential hypertension, malignant Chronic kidney disease, stage III (moderate) (HCC) Disorder of phosphorus metabolism PROTEIN, URINE, RANDOM Routine 02/21/2019 7:56 Kidney replace d by Results for this AM [employer] transplant procedure are in Anemia of chronic the result s renal failure, section. unspecified CKD stage Hypermagnesemia Proteinuria, unspecified type Essential hypertension, malignant Chronic kidney disease, stage III (moderate) (HCC) Disorder of phosphorus metabolism CREATININE LEVEL, Routine 02/21/2019 7:56 Kidney replaced by Results for this URINE, RANDOM AM [employer] transplant procedure are in Anemia of chronic the result s renal failure, section. unspecified CKD stage Hypermagnesemia Proteinuria, unspecified type Essential hypertension, malignant Chronic kidney disease, stage III (moderate) (HCC) Disorder of phosphorus metabolism URINALYSIS SCREEN AND Routine 02/21/2019 7:56 Kidney replaced by Results for this MICROSCOPY, WITH AM [employer] transplant procedure are in REFLEX TO CULTURE Anemia of chronic the r esults renal failure, section. unspecified CKD stage Hypermagnesemia Proteinuria, unspecified type Essential hypertension, malignant Chronic kidney disease, stage III (moderate) (HCC) Disorder of phosphorus metabolism LDH Routine 02/21/2019 7:56 Kidney replaced by Resul ts for this AM [employer] transplant procedure are in Anemia of chronic the result s renal failure, section. unspecified CKD stage Hypermagnesemia Proteinuria, unspecified type Essential hypertension, malignant Chronic kidney disease, stage III (moderate) (HCC) Disorder of phosphorus metabolism URIC ACID LEVEL Routine 02/21/2019 7:56 Kidney replaced by Re sults for this AM [employer] transplant procedure are in Anemia of chronic the result s renal failure, section. unspecified CKD stage Hypermagnesemia Proteinuria, unspecified type Essential hypertension, malignant Chronic kidney disease, stage III (moderate) (HCC) Disorder of phosphorus metabolism PHOSPHORUS LEVEL Routine 02/21/2019 7:56 Kidney replaced by R esults for this AM [employer] transplant procedure are in Anemia of chronic the result s renal failure, section. unspecified CKD stage Hypermagnesemia Proteinuria, unspecified type Essential hypertension, malignant Chronic kidney disease, stage III (moderate) (HCC) Disorder of phosphorus metabolism MAGNESIUM LEVEL Routine 02/21/2019 7:56 Kidney replaced by Re sults for this AM [employer] transplant procedure are in Anemia of chronic the result s renal failure, section. unspecified CKD stage Hypermagnesemia Proteinuria, unspecified type Essential hypertension, malignant Chronic kidney disease, stage III (moderate) (HCC) Disorder of phosphorus metabolism HC COMPLETE BLD COUNT Routine 02/21/2019 7:56 Kidney replaced by Results for this W/AUTO DIFF AM [employer] transplant procedure are in Anemia of chronic the result s renal failure, section. unspecified CKD stage Hypermagnesemia Proteinuria, unspecified type Essential hypertension, malignant Chronic kidney disease, stage III (moderate) (HCC) Disorder of phosphorus metabolism URINE CULTURE Routine 02/21/2019 7:56 Results fo r this AM [employer] procedure are i n the results section. after 02/01/2019 Results Urinalysis screen and microscopy, with reflex to culture (01/30/2020 7:52 AM CDT)Only the most recent of4 resultswithin the time period is included. Specimen site Clean catch [facility] Color, UA Yellow [facility] Appearance, UA Clear [facility] Specific gravity, UA 1.023 1.001 - 1.035 [facility] pH, UA 5.0 5.0 - 8.5 [facility] Protein, UA 3+ (A) Negative [facility] Glucose, UA Negative Negative [facility] Ketones, UA Negative Negative [facility] Bilirubin, UA Negative Negative [facility] Blood, UA Moderate (A) Negative [facility] Nitrite, UA Negative Negative [facility] Urobilinogen, UA <2.0 <2.0 [facility] Leukocyte esterase, Negative Negative [facility] Epithelial cells, UA <1 /HPF [facility] WBC, UA 1 0 - 1 /HPF [facility] RBC, UA 7 (H) 0 - 5 /HPF [facility] Bacteria, UA None seen None seen [facility] Yeast, UA None seen [facility] Yeast with None seen [facility] pseudohyphae, HOSPITAL Specimen Urine Performing Organization Address City/[facility] Phon e Number [facility] DEPARTMENT OF PATHOLOGY AND [address] [place], [place] [phone] [address] [address] Estimated GFR (01/30/2020 7:52 AM CDT)Only the most recent of4 resultswithin the time period is included. Estimated GFR 64 mL/min/1.73 [facility] Comment: m2 HOSPITAL Catergory Units Interpretation G1 [...] published in 2014. Specimen Performing Organization Address City/[facility] Phon e Number [facility] DEPARTMENT OF PATHOLOGY AND [address] [place] [address] [phone] [address] Cyclosporine level, random (01/30/2020 7:52 AM CDT)Only the most recent of4 resultswithin the time period is included. Cyclosporine 47 ng/mL [facility] Comment: HOSPITAL Unless administered by continuous IV drip, collect a p urple top tube just before the next dose. Therapeutic range of approximately 100-500 varies mainly with type of trans plant, use of other immunosuppressive agents, and evidence of toxicity or rejection. Test performed using [employer] chemiluminescent microparticle immunoassay for Cyclosporine on the [employer] System. Specimen Blood Performing Organization Address [facility] Phon e Number [facility] DEPARTMENT OF PATHOLOGY AND [address] [place] [phone] Protein, urine, random (01/30/2020 7:52 AM CDT)Only the most recent of4 results within the time period is included. Pathologist Sig nature Protein, urine random 299 mg/dL [facility] Specimen Urine Performing Organization Address [facility] Phon e Number [facility] DEPARTMENT OF PATHOLOGY AND [address] [place] [address] [phone] [address] Creatinine level, urine, random (01/30/2020 7:52 AM CDT)Only the most recent of 4 resultswithin the time period is included. Pathologist Sig nature Creatinine, urine, 200 mg/dL [facility] Specimen Urine Performing Organization Address [facility] Phon e Number [facility] DEPARTMENT OF PATHOLOGY AND [address] [place] [phone] CBC with platelet and differential (01/30/2020 7:52 AM CDT)Only the most recent of4 resultswithin the time period is included. WBC 7.55 4.50 - 11.00 [facility] RBC 4.90 4.40 - 6.00 [facility] HGB 15.7 14.0 - 18.0 [facility] g/dL [facility] HCT 46.5 41.0 - 51.0 % [facility] MCV 94.9 82.0 - 100.0 [facility] MCH 32.0 27.0 - 34.0 pg [facility] MCHC 33.8 31.0 - 37.0 [facility] g/dL [facility] RDW - SD 41.5 37.0 - 55.0 fL [facility] MPV 9.2 8.8 - 13.2 fL [facility] Platelet count 284 150 - 400 k/uL [facility] Nucleated RBC 0.00 /100 WBC [facility] Neutrophils 56.9 39.0 - 69.0 % [facility] Lymphocytes 29.7 25.0 - 45.0 % [facility] Monocytes 9.3 0.0 - 10.0 % [facility] Eosinophils 2.9 0.0 - 5.0 % [facility] Basophils 0.9 0.0 - 1.0 % [facility] Immature granulocytes 0.3Comment: 0.0 - 1.0 % [facility] "[facility] granulocytes" (promyelocytes , myelocytes, metamyelocytes ) Specimen Blood Performing Organization Address City/[facility] Phon e Number [facility] DEPARTMENT OF PATHOLOGY AND [address] [place] [phone] Urine culture (01/30/2020 7:52 AM CDT)Only the most recent of4 resultswithin the time period is included. Pathologist Sig nature Urine culture SEE COMMENTComment: [facility] Bacteriuria screen [facility] negative. Specimen Performing Organization Address City/[facility] Phon e Number [facility] DEPARTMENT OF PATHOLOGY AND [address] [place] [address] [phone] [address] Uric acid level (01/30/2020 7:52 AM CDT)Only the most recent of4 resultswithin the time period is included. Pathologist Sig nature Uric acid 8.4 (H) 3.4 - 7.0 mg/dL [facility] L Specimen Blood Performing Organization Address City/[facility] Phon e Number [facility] DEPARTMENT OF PATHOLOGY AND [address] [place] [address] [phone] [address] Phosphorus level (01/30/2020 7:52 AM CDT)Only the most recent of4 resultswithin the time period is included. Pathologist Sig nature Phosphorus 2.4 2.4 - 4.5 mg/dL [facility] Specimen Blood Performing Organization Address City/[facility] Phon e Number [facility] DEPARTMENT OF PATHOLOGY AND [address] [place] [address] [phone] [address] Magnesium level (01/30/2020 7:52 AM CDT)Only the most recent of4 resultswithin the time period is included. Pathologist Sig nature Magnesium 2.1 1.6 - 2.6 mg/dL [facility] Specimen Blood Performing Organization Address [facility] Phon e Number [facility] DEPARTMENT OF PATHOLOGY AND [address] [place] [address] [phone] [phone] LDH (01/30/2020 7:52 AM CDT)Only the most recent of4 resultswithin the time period is included. Pathologist Sig nature LDH 209 87 - 225 U/L [facility] Specimen Blood Performing Organization Address [facility] Phon e Number [facility] DEPARTMENT OF PATHOLOGY AND [address] [place] [address] [phone] Comprehensive metabolic panel (01/30/2020 7:52 AM CDT)Only the most recent of4 resultswithin the time period is included. Sodium 139 135 - 148 [facility] mEq/L [facility] Potassium 4.5 3.5 - 5.0 [facility] mEq/L [facility] Chloride 103 98 - 112 [facility] mEq/L [facility] CO2 23 (L) 24 - 31 mEq/L [facility] Anion gap 13@ANIO 7 - 15 mEq/L [facility] BUN 26 (H) 6 - 20 mg/dL [facility] Creatinine 1.42 (H) 0.70 - 1.20 [facility] mg/dL [facility] Glucose 109 (H) 65 - 99 mg/dL [facility] Calcium 10.5 (H) 8.3 - 10.2 [facility] mg/dL HOSPITAL Protein 8.0 6.3 - 8.3 [facility] Comment: g/dL HOSPITAL - 4.6-7.0 g/dL 1 week 4.4-7.6 g/dL 7 months-1year 5.1-7.3 g/dL 1-2 years 5.6-7.5 g/dL >3 years 6.0-8.0 g/dL 18-150 6.3-8.3 g/dL Albumin 3.6 3.5 - 5.0 [facility] g/dL [facility] A/G ratio 0.8 0.7 - 3.8 [facility] Alkaline phosphatase 76 40 - 129 U/L [facility] AST 29 10 - 50 U/L [facility] ALT 36 5 - 50 U/L [facility] Total bilirubin 0.3 0.0 - 1.2 [facility] mg/dL HOSPITAL Specimen Blood Performing Organization Address City/[facility] Phon e Number [facility] DEPARTMENT OF PATHOLOGY AND [address] [place] [address] [phone] [address] [id number] Tacrolimus level, random (03/02/2019 8:54 AM SKEIN YARD DRIER) FK506 level <2.0 ng/mL [facility] Comment: HOSPITAL Therapeutic range 5-20 ng/mL for 12 hour trough. The r caleb varies depending on the organ transplanted, time after transplantation and co-administered immunosuppressant therapies. Please use clinical judgment to interpret test result. Test performed using Henriquez Junior Java Developer chemiluminescent microparticle immunoassay for Tacrolimus on the [employer] ECT i System. Specimen Blood Performing Organization Address City/[facility] Phon e Number [facility] DEPARTMENT OF PATHOLOGY AND [address] [place] [address] [phone] [address] after 02/01/2019 Insurance Payer Benefit Plan / Subscriber ID Effective Dates Phone Addre ss Type Group MEDICARE MEDICARE PART A [id number] 1993-Present [facility] [place], [place] Medicare AND B
--- OUTSIDE RECORDS SUMMARY | 2020-02-02 08:24 | XMS REPORT | Clinical Summary ---
:1965 Author Organization [facility] Address [address] [place] [address] Care Team Providers Name Role Phone Akin Green MD Primary Care Provider Allergies No Known Allergies Medications Not on file Active Problems Not on file Encounters Date Type Specialty Care Team Description 09/17/2019 Lab Requisition Lab after 02/01/2019 Family History Medical History Relation Name Comments [...] 09/16/2019 9:40 PM Resu lts for this ([facility]) CDT procedure are in the results section. after 02/01/2019 Results SARS-CoV2/RT-PCR ([facility]) (09/16/2019 9:40 PM CDT) SARS-COV2/RT-PCR Not Detected Not Detected, [facility] Negative [facility] SARS-COV-2 [facility] PERFORMING LAB [facility] Specimen Other - Nasopharyngeal wall structure (b sue structure) Narrative Performed At Negative results do not preclude SARS-CoV-2 [facility] infection and should not be used as [...] the Act. Fact Sheet for Healthcare Providers: https://www.Applicasa/Documents/Xpert%20Xpre ss%20SARS%20CoV-2/Fact%20Sheets/3023802%20SAR S-COV-2%20HEALTHCARE%20PROVIDERS%20FACT%20SHEE T.pdf Fact Sheet for Healthcare Patients: https://www.Applicasa/Documents/Xpert%20Xpre ss%20SARS%20CoV-2/Fact%20Sheets/3023801%20SAR S-COV-2%20PATIENT%20FACT%20SHEET.pdf Performing Laboratory: [address] [place] [address] Performing Organization Address City/State/Zipcode Phone Number [address] [address] CENTER after 02/01/2019 Insurance Payer Benefit Plan / Subscriber ID Effective Dates Phone Addre ss Type Group [employer] [place] [id number] 2016-Prese MEDICARE MCD CARE nt
--- OUTSIDE RECORDS SUMMARY | 2020-02-02 08:25 | XMS REPORT | Continuity of Care Document ---
:1965 Author Organization [facility] t Address [address] [place] [address] Care Team Providers Name Role Phone Akin Green MD Primary Care Physician Satish Klein MD Attending Clinician Chase ALVAREZ Attending Clinician Payers Payer Name Policy Type Policy Effective Date Expiration Date Sour ce Number MEDICAREMEDICARE PART [id number] 1993 Victorino Arredondo AND 00:00:00 [employer] [id number] 1993[place] [facility] [employer] MEDICARE [id number] 2016 ISA Donald [facility] CAREAMERIGROUP 00:00:00 - [facility] [id number]/ [address] ter 16-Present Problems Condition Condition Condition Status Onset Resolution Last Treating Co mments Source Name Details Category Date Date Treatment Clinician Date Kidney Kidney Disease Active 2017-04 [place] transplant transplant 0-08 Me thodi recipient recipient 00:00: st 00 Right Right Disease Active 2017-04 [place] upper upper 0-08 Methodi quadrant quadrant 00:00: [...] Date Stop Date Source Natural father Hypertension [facility] Natural mother Heart disease [facility] Natural mother Hypertension [facility] Natural sister Diabetes [facility] Social History Social Habit Start Date Stop Date Quantity Comments Source Sex Assigned At [place] Genie ethodist Exposure to Not sure [facility] Metho dist SARS-CoV-2 (event) Tobacco use and 2018-01-18 2018-01-18 Never used Kavon Prescott ethodist exposure 00:00:00 00:00:00 Alcohol intake 2018-01-18 2018-01-18 Current [facility] thodist 00:00:00 00:00:00 non-drinker of alcohol (finding) Tobacco Comment 2018-01-15 2018-01-15 "Quit 2-3 months Tiffany ston [facility] 00:00:00 00:00:00 ago" Smoking Status Start Date Stop Date Source Former smoker 2018-01-18 00:00:00 2018-01-18 00:00:00 Kavon Trivedi Current some day 2016-03-26 00:00:00 [facility] sm[facility] Center Medications Ordered Filled Start Stop [...] Date / Time Performing Clinician Source Performed URINE CULTURE 2020-01-30 07:52:00 Juan Klein [facility] thodist COMPREHENSIVE METABOLIC 2020-01-30 07:52:00 Juan Klein [facility] PANEL HC COMPLETE BLD COUNT 2020-01-30 07:52:00 Juan Klein [facility] W/AUTO DIFF MAGNESIUM LEVEL 2020-01-30 07:52:00 Juan Klein Me thodist PHOSPHORUS LEVEL 2020-01-30 07:52:00 Juan Klein M ethodist URIC ACID LEVEL 2020-01-30 07:52:00 Juan Klein Me thodist LDH 2020-01-30 07:52:00 Juan Klein In thodist URINALYSIS SCREEN AND 2020-01-30 07:52:00 Juan Klein [facility] MICROSCOPY, WITH REFLEX TO CULTURE CREATININE LEVEL, URINE, 2020-01-30 07:52:00 Juan Klein [facility] RANDOM PROTEIN, URINE, RANDOM 2020-01-30 07:52:00 Juan Klein [facility] CYCLOSPORINE LEVEL, 2020-01-30 07:52:00 Juan Klein n Judaism RANDOM ESTIMATED GFR 2020-01-30 07:52:00 Juan Klein Me thodist SARS-COV2/RT-PCR ([facility] & 2019-09-16 21:40:00 [facility] HC COMPLETE BLD COUNT 2019-07-04 09:01:00 Jean Paul Fabian on Judaism W/AUTO DIFF MAGNESIUM LEVEL 2019-07-04 09:01:00 Jean Paul Fabian Met hodist PHOSPHORUS LEVEL 2019-07-04 09:01:00 Jean Paul Fabian Me thodist URIC ACID LEVEL 2019-07-04 09:01:00 Jean Paul Fabian Met hodist LDH 2019-07-04 09:01:00 Jean Paul Fabian Met hodist COMPREHENSIVE METABOLIC 2019-07-04 09:01:00 Jean Paul Fabian [facility] PANEL CYCLOSPORINE LEVEL, 2019-07-04 09:01:00 Jean Paul Fabian [facility] RANDOM ESTIMATED GFR 2019-07-04 09:01:00 Jean Paul Fabian Met hodist URINE CULTURE 2019-07-04 08:56:00 Jean Paul Fabian hodist URINALYSIS SCREEN AND 2019-07-04 08:56:00 Jean Paul Fabian [facility] MICROSCOPY, WITH REFLEX TO CULTURE PROTEIN, URINE, RANDOM 2019-07-04 08:56:00 Jean Paul Fabian [facility] CREATININE LEVEL, URINE, 2019-07-04 08:56:00 Jean Paul Fabian [facility] RANDOM URINE CULTURE 2019-03-02 08:54:00 Juan Klein In thodist COMPREHENSIVE METABOLIC 2019-03-02 08:54:00 Juan Klein [facility] PANEL HC COMPLETE BLD COUNT 2019-03-02 08:54:00 Juan Klein Judaism W/AUTO DIFF MAGNESIUM LEVEL 2019-03-02 08:54:00 Juan Klein In thodist PHOSPHORUS LEVEL 2019-03-02 08:54:00 Juan Klein ethodist URIC ACID LEVEL 2019-03-02 08:54:00 Juan Klein In thodist LDH 2019-03-02 08:54:00 Juan Klein In thodist URINALYSIS SCREEN AND 2019-03-02 08:54:00 Juan Klein [facility] MICROSCOPY, WITH REFLEX TO CULTURE CREATININE LEVEL, URINE, 2019-03-02 08:54:00 Juan Klein Judaism RANDOM PROTEIN, URINE, RANDOM 2019-03-02 08:54:00 Juan Klein Judaism FK506 TACROLIMUS LEVEL, 2019-03-02 08:54:00 Juan Klein Judaism RANDOM ESTIMATED GFR 2019-03-02 08:54:00 Juan Klein In thodist CYCLOSPORINE LEVEL, 2019-03-02 08:54:00 Juan Klein Judaism RANDOM URINE CULTURE 2019-02-21 07:56:00 Juan Klein Me thodist HC COMPLETE BLD COUNT 2019-02-21 07:56:00 Juan Klein Judaism W/AUTO DIFF MAGNESIUM LEVEL 2019-02-21 07:56:00 Juan Klein Me thodist PHOSPHORUS LEVEL 2019-02-21 07:56:00 Juan Klein ethodist URIC ACID LEVEL 2019-02-21 07:56:00 Juan Klein In thodist LDH 2019-02-21 07:56:00 Juan Klein In thodist URINALYSIS SCREEN AND 2019-02-21 07:56:00 Juan Klein [facility] MICROSCOPY, WITH REFLEX TO CULTURE CREATININE LEVEL, URINE, 2019-02-21 07:56:00 Juan Kleinston Judaism RANDOM PROTEIN, URINE, RANDOM 2019-02-21 07:56:00 Juan Klein [facility] COMPREHENSIVE METABOLIC 2019-02-21 07:56:00 Juan Klein Judaism PANEL CYCLOSPORINE LEVEL, 2019-02-21 07:56:00 Juan Klein n Judaism RANDOM ESTIMATED GFR 2019-02-21 07:56:00 Juan Klein In thodist Plan of Care Planned Activity Planned Date Details Comments Source Future Scheduled 2019-11-12 INFLUENZA VACCINE [place] [facility] 00:00:00 [code = INFLUENZA VACCINE] Future Scheduled 2016-02-28 COLONOSCOPY SCREENING [place] [facility] 00:00:00 [code = COLONOSCOPY SCREENING] Future Scheduled 2016-02-28 SHINGLES VACCINES [place] [facility] 00:00:00 (#1) [code = SHINGLES VACCINES (#1)] Encounters Start End Encounter Admission Attending Care Care Encounter Source Date/Time Date/Time Type Type Clinicians Facility Department ID 2020-01-30 2020-01-30 Outpatient [facility] [id number] [place] 00:00:00 00:00:[address] 2020-01-23 2020-01-23 Outpatient [facility] [id number] [place] 00:00:00 00:00:[address] 2020-01-09 2020-01-09 Outpatient [facility] [id number] [place] 00:00:00 00:00:[address] 2019-07-04 2019-07-04 Outpatient Usha FABIAN [facility] 002 [id number] [place] 00:00:00 00:00:[address] Results Test Description Test Time Test Comments Results Result Comments Source Cyclosporine level, random 2020-01-30 11:30:53 Test Item Value Reference Range Interpretation Comme nts Cyclosporine (test code = 47 ng/mL Un less administered by continuous IV drip, 19560-4) collect a purpl e top tube just before the next dose. Ther apeutic range of approximately 1 00-500 varies mainly with type of transpl ant,use of other immunosuppressi ve agents, and evidence of toxicity or rej ection. Test performed using [employer] t chemiluminescen tmicroparticle immunoassay for Cyclosporin e on the DIRECTOR OF PLANNING i System. [place] [facility] [id number] 09:50:08 Test Item Value Reference Range Interpretation Comments Sodium (test code = 139 135- 148 mEq/L 2951-2) Potassium (test code = 4.5 3.5- 5.0 mEq/L 2823-3) Chloride (test code = 103 98- 112 mEq/L 5-0) CO2 (test code = 2027-9) 23 24- 31 mEq/L L Anion gap (test code = 13@ANIO 7- 15 mEq/L 73296-4) BUN (test code = 3094-0) 26 mg/dL 6-20 H Creatinine (test code = 1.42 mg/dL 0.7-1.2 H 2160-0) Glucose (test code = 109 mg/dL 65-99 H 2345-7) Calcium (test code = 10.5 mg/dL 8.3-10.2 H 92619-6) Protein (test code = 8.0 g/dL 6.3-8.3 -[place] n 2885-2) 4.6-7.0 g/dL1 week 4.4-7 .6 g/dL7 months-1y ear 5.1-7 .3 g/dL1-2 years 5.6-7 .5 g/dL>3 years 6.0-8 .0 g/yA19-538 6.3-8 .3 g/dL Albumin (test code = 3.6 g/dL 3.5-5 1751-7) A/G ratio (test code = 0.8 0.7-3.8 1759-0) Alkaline phosphatase 76 U/L 40-129 (test code = 6768-6) AST (test code = 1920-8) 29 U/L 10-50 ALT (test code = 1742-6) 36 U/L 5-50 Total bilirubin (test 0.3 mg/dL 0-1.2 code = 1975-2) Lab Interpretation (test Abnormal code = 71223-0) Kavon [id number] 09:50:08 Test Item Value Reference Range Interpretation Comments LDH (test code = 17854-2) 209 U/L 87-225 [facility] MethodistMagnesium [id number] 09:50:08 Test Item Value Reference Range Interpretation Comments Magnesium (test code = 25096-0) 2.1 mg/dL 1.6-2.6 Jacobson MethodistUric acid [id number] 09:50:08 Test Item Value Reference Range Interpretation Comments Uric acid (test code = 3084-1) 8.4 mg/dL 3.4-7 H Lab Interpretation (test code = Abnormal 39606-5) Jacob[facility] MethodistEstimated [id number] 09:50:08 Test Item Value Reference Range Interpretation Comments Estimated GFR (test 64 mL/min/1.73 m2 [facility] Units code = 5488) InterpretationG 1 >=90 Normal or highG2 60-89 Mildly dsxpqoyyiF1f 45-59 Mildly to mode rately mmqksjauyE0j 30-44 Moderately to severely decreasedG4 15-29 Severely decre asedG5 <15 Kidn ey failureThe eGFR was calculated maryuri varela the Chronic Kidney Disease Epidemiology Co llaboration (CKD-EPI) equat ion. Interpretation is based on recommendations of the National Kidney Foundation-Kidn ey Disease Outcomes Qualit y Initiative (NKF-KDOQI) pub lished in 2014. [facility] MethodistPhosphorus [id number] 09:50:04 Test Item Value Reference Range Interpretation Comments Phosphorus (test code = 2777-1) 2.4 mg/dL 2.4-4.5 Kavon TrivediProtein, urine, [id number] 09:01:38 Test Item Value Reference Range Interpretation Comments Protein, urine random (test code = 299 mg/dL 2888-6) Kavon JavieristUrinalysis screen and microscopy, with reflex to culture 2020-01-30 08:55:13 Test Item Value Reference Range Interpretation Comments Specimen site (test code = Clean catch 6378232) Color, UA (test code = 5778-6) Yellow Appearance, UA (test code = Clear 5767-9) Specific gravity, UA (test code = 1.023 1.001-1.035 5811-5) pH, UA (test code = 5803-2) 5.0 5.0-8.5 Protein, UA (test code = 43999-7) 3+ Negative A Glucose, UA (test code = 85152-3) Negative Negative Ketones, UA (test code = 2514-8) Negative Negative Bilirubin, UA (test code = Negative Negative 5770-3) Blood, UA (test code = 5794-3) Moderate Negative A Nitrite, UA (test code = 5802-4) Negative Negative Urobilinogen, UA (test code = <2.0 <2.0 93111-3) Leukocyte esterase, UA (test code Negative Negative = 5799-2) Epithelial cells, UA (test code = <1 /HPF 5787-7) WBC, UA (test code = 5821-4) 1 0- 1 /HPF RBC, UA (test code = 55257-2) 7 0- 5 /HPF H Bacteria, UA (test code = None seen None seen 03107-9) Yeast, UA (test code = 25333-9) None seen Yeast with pseudohyphae, UA (test None seen code = 23922-1) Lab Interpretation (test code = Abnormal 67410-6) Kavon MethodistCreatinine level, urine, [id number] 08:50:30 Test Item Value Reference Range Interpretation Comments Creatinine, urine, random (test 200 mg/dL code = 43474-1) [facility] MethodistUrine [id number] 08:34:03 Test Item Value Reference Range Interpretation Comments Urine culture (test SEE COMMENT Bacteriu deandre screen code = 9141729) negative. Kavon MethodistCBC with platelet and [id number] 08:22:46 Test Item Value Reference Range Interpretation Comments WBC (test code = 7.55 4.50- 11.00 k/uL 75441-3) RBC (test code = 4.90 m/uL 4.4-6 83898-8) HGB (test code = 718-7) 15.7 g/dL 14-18 HCT (test code = 4544-3) 46.5 % 41-51 MCV (test code = 787-2) 94.9 fL 82-100 MCH (test code = 785-6) 32.0 pg 27-34 MCHC (test code = 786-4) 33.8 g/dL 31-37 RDW - SD (test code = 41.5 fL 37-55 36741-8) MPV (test code = 9.2 fL 8.8-13.2 05437-3) Platelet count (test 284 150- 400 k/uL code = 02263-1) Nucleated RBC (test code 0.00 /100 WBC = 31501-6) Neutrophils (test code = 56.9 % 39-69 09291-6) Lymphocytes (test code = 29.7 % 25-45 36217-5) Monocytes (test code = 9.3 % 0-10 52520-2) Eosinophils (test code = 2.9 % 0-5 70569-8) Basophils (test code = 0.9 % 0-1 81462-8) Immature granulocytes 0.3 % 0-1 "Immat ure (test code = 89711-3) granul ocytes" (promyelocytes, myelocytes, metamyelocytes) [facility])2019-09-17 04:32:00 Test Item Value Reference Range Interpretation Comments SARS-COV2/RT-PCR Not Detected Not Detected, (test code = Negative 87714-5) SARS-COV-2 [facility] PERFORMING LAB (test code = 21097-1) CATRACHO (test code = Negative results do not CATRACHO) preclude SARS-CoV-2 infection and should not be [...] of the Act. Fact Sheet for Healthcare Providers:https://www.Roundarch/Documents/Xper t%20Xpress%20SARS%20CoV- 2/Fact%20Sheets/3023802 %30AZBC-WMZ-4%20HEALTHCA RE%20PROVIDERS%20FACT%20 SHEET.pdf Fact Sheet for Healthcare Patients:https://www.Seamless Receipts/Documents/Xpert %20Xpress%20SARS%20CoV-2 /Fact%20Sheets/3023801% 56IMSV-UHX-9%20PATIENT%2 0FACT%20SHEET.pdf Performing Laboratory:[facility] [place], [place] [address]mihaela [place], [place] [address] [place], [place] [address]ARS-COV2/RT-PCR ([facility])2019-09-17 04:32:00 Test Item Value Reference Range Interpretation Comments SARS-COV2/RT-PCR (test Not Detected Not Detected, Negative code = 2439570) SARS-COV-2 PERFORMING LAB [facility] (test code = 2174657) Negative results do not preclude SARS-CoV-2 infection [...] of the Act.Fact Sheet for Healthcare Pro viders:https://www.Qualnetics/Documents/Xpert%20Xpress%20SARS%20CoV-2/Fact%20Sh eets/302-3802%12ORVW-GMO-1%20HEALTHCARE%20PROVIDERS%20FACT%20SHEET.pdfFact Sheet for Healthcare Patients:https://www.Who [employer] My Car/Documents/Xpert%20Xpress%20SARS%20CoV-2/Fact%20Sheets/302-3801%20SARS-COV -2%20PATIENT%20FACT%20SHEET.pdfPerforming Laboratory:[facility], [place] [address] Tacrolimus level, [id number] 15:50:23 Test Item Value Reference Range Interpretation Comments FK506 level (test <2.0 ng/mL Therapeuti c range 5-20 ng/mL code = 21421-9) for 12 hour trough. The range varies dependin g on the organ transplanted, t geovanny after transplantation and co-administered immunosuppressa nt therapies. Please use clin ical judgment to interpret te st result.Test performed using Henriquez [employer] Machine Operator chemi luminescent microparticle i mmunoassay for Tacrolimus on t [employer] DIRECTOR OF PLANNING i System. Kavon Trivedi
[2020-02-02 08:27] LABS: Absolute Lymphocytes (CBC) 1.6 K/uL (0.7-4.9); Basophils % 0.7 % (0-1.3); Hematocrit 42.3 % (39.6-49.0); Lymphocytes % 19.6 % (15.3-44.8); MPV 7.7 fL (7.6-11.3); RBC Red Blood Cell Count 4.45 M/uL (4.33-5.43)
[2020-02-02] MEDS ORDERED: MORPHINE 4 MG/ML SYR ONE (08:35)
[2020-02-02] MEDS ORDERED: ONDANSETRON 4 MG/2 ML VIAL ONE (08:35)
[2020-02-02 08:45] LABS: Albumin 3.5 g/dL (3.4-5.0); Bilirubin Direct 0.1 mg/dL (0-0.2); Bilirubin Total 0.4 mg/dL (0.2-1.0); Potassium 3.9 mmol/L (3.5-5.1); Protein, Total 7.9 g/dL (6.4-8.2)
--- NOTE | 2020-02-02 09:39 | RAD REPORT ---
EXAM DESCRIPTION: CT - Abdomen Pelvis W Contrast - 02/02/2020 9:22 am CLINICAL HISTORY: Abdominal pain COMPARISON: June 2019 TECHNIQUE: Computed axial tomography of the abdomen pelvis was obtained. IV contrast was administere d but the contrast extravasated from the tubing and did not enter the vein. The patient had limited i ntravenous access and apparently 5 attempts were made so no additional attempts were made after the e xtravasation. There is limited evaluation of solid organs secondary to the lack of IV contrast. All CT scans are performed using dose optimization technique as appropriate and may include automated exposure control or mA/KV adjustment according to patient size. FINDINGS: [place] kidneys are small. Transplant kidney left lower abdomen/upper pelvis. No hydronephr osis. Mild stranding within the perirenal fat has diminished since the prior exam Cholecystectomy Liver, spleen, pancreas and adrenals appear grossly normal Small right inguinal hernia contains fat IMPRESSION: Mild stranding within the perirenal fat of the transplant kidney has diminished since [facility] 2019 No acute abnormality displayed
--- NOTE | 2020-02-02 09:50 | RAD REPORT ---
EXAM DESCRIPTION: RAD - Knee Right 3 View - 02/02/2020 9:27 am CLINICAL HISTORY: Right knee pain FINDINGS: No fracture or dislocation is seen. Chondrocalcinosis is present Mild narrowing of medial and lateral compartments
--- NOTE | 2020-02-02 10:42 | EDPHYS ---
Physician Documentation [facility] Name: Shoaib Freitas Jr Age: 54 yrs Sex: Male : 1965 Arrival Date: 02/02/2020 Time: 07:51 Bed 17 Private MD: David Neely ED Physician Panfilo Peter HPI: 02/01 10:46 This 54 yrs old Black Male presents to ER via Ambulatory with complaints of Abdominal kdr Pain, Knee Pain. 10:46 The patient presents with abdominal pain in the upper abdomen. Onset: The kdr symptoms/episode began/occurred gradually, 3 day(s) ago. The symptoms do not radiate. Associated signs and symptoms: Pertinent positives: nausea, Right knee pain. The symptoms are described as achy, crampy, intermittent, vague, waxing/waning. Modifying factors: The symptoms are alleviated by nothing, the symptoms are aggravated by pressure, touching the area. Severity of pain: At its worst the pain was mild in the emergency department the pain is unchanged. The patient has experienced similar episodes in the past, multiple times. The patient has not recently seen a physician. Historical: - Allergies: 08:00 No Known Allergies; bp - Home Meds: 08:00 diltiazem HCl 240 mg Oral cpER 1 cap once daily for Hypertension [Active]; prednisone 5 bp mg Oral tab once daily [Active]; valsartan 40 mg Oral tab 1 tab once daily for Hypertension [Active]; - PMHx: 08:00 Gall Stones; history of dialysis; Hypertension; kidney transplant; Pancreatitis; bp - Immunization history:: Adult Immunizations up to date. - Social history:: Smoking status: Patient denies any tobacco usage or history of. ROS: 10:46 Constitutional: Negative for fever, chills, and weight loss, Eyes: Negative for injury, kdr pain, redness, and discharge, ENT: Negative for injury, pain, and discharge, Neck: Negative for injury, pain, and swelling, Cardiovascular: Negative for chest pain, palpitations, and edema, Respiratory: Negative for shortness of breath, cough, wheezing, and pleuritic chest pain, Back: Negative for injury and pain, : Negative for injury, bleeding, discharge, and swelling, Skin: Negative for injury, rash, and discoloration, Neuro: Negative for headache, weakness, numbness, tingling, and seizure activity. Psych: Negative for depression, anxiety, suicide ideation, homicidal ideation, and hallucinations, Allergy/Immunology: Negative for hives, rash, and allergies, Endocrine: Negative for neck swelling, polydipsia, polyuria, polyphagia, and marked weight changes, Hematologic/Lymphatic: Negative for swollen nodes, abnormal bleeding, and unusual bruising. 10:46 Abdomen/GI: Positive for abdominal pain, nausea, Negative for diarrhea, constipation, abdominal cramps, abdominal distension, anorexia, black/tarry stool, rectal pain, rectal bleeding, bowel incontinence. Exam: 10:46 Constitutional: This is a well developed, well nourished patient who is awake, alert, kdr and in no acute distress. Head/Face: Normocephalic, atraumatic. Eyes: Pupils equal round and reactive to light, extra-ocular motions intact. Lids and lashes normal. Conjunctiva and sclera are non-icteric and not injected. Cornea within normal limits. Periorbital areas with no swelling, redness, or edema. Neck: Trachea midline, no thyromegaly or masses palpated, and no cervical lymphadenopathy. Supple, full range of motion without nuchal rigidity, or vertebral point tenderness. No Meningismus. Chest/axilla: Normal chest wall appearance and motion. Nontender with no deformity. No lesions are appreciated. Cardiovascular: Regular rate and rhythm with a normal S1 and S2. No gallops, murmurs, or rubs. Normal PMI, no JVD. No pulse deficits. Respiratory: Lungs have equal breath sounds bilaterally, clear to auscultation and percussion. No rales, rhonchi or wheezes noted. No increased work of breathing, no retractions or nasal flaring. Abdomen/GI: Soft, non-tender, with normal bowel sounds. No distension or tympany. No guarding or rebound. No evidence of tenderness throughout. Back: No spinal tenderness. No costovertebral tenderness. Full range of motion. Skin: Warm, dry with normal turgor. Normal color with no rashes, no lesions, and no evidence of cellulitis. MS/ Extremity: Pulses equal, no cyanosis. Neurovascular intact. Full, normal range of motion. Neuro: Awake and alert, GCS 15, oriented to person, place, time, and situation. Cranial nerves II-XII grossly intact. Motor strength 5/5 in all extremities. Sensory grossly intact. Cerebellar exam normal. Normal gait. Psych: Awake, alert, with orientation to person, place and time. Behavior, mood, and affect are within normal limits. 10:46 Abdomen/GI: Inspection: obese Palpation: soft, mild abdominal tenderness, in all quadrants. Vital Signs: 07:58 BP 131 / 85; Pulse 86; Resp 16; Temp 97.9; Pulse Ox 95% ; bp 09:36 Pulse 72; Resp 16; Pulse Ox 94% ; bp 10:30 BP 131 / 89; Pulse 74; Resp 17; Pulse Ox 95% ; bp 11:07 BP 135 / 91; Pulse 69; Resp 17; Temp 97.9; Pulse Ox 97% ; bp MDM: 10:41 Patient medically screened. kdr 10:46 Data reviewed: vital signs, lab test result(s), radiologic studies. kdr 02/01 08:02 Order name: Basic Metabolic Panel; Complete Time: 10:12 bp 02/01 08:02 Order name: CBC with Diff; Complete Time: 10:12 bp 02/01 08:02 Order name: Hepatic Function; Complete Time: 10:12 bp 02/01 08:02 Order name: Lipase; Complete Time: 10:12 bp 02/01 08:18 Order name: Glucose, Ancillary Testing; Complete Time: 10:12 EDMS 02/01 10:21 Order name: CREATININE WHOLE BLOOD; Complete Time: 10:26 EDMS 02/01 08:02 Order name: IV Saline Lock; Complete Time: 08:02 bp 02/01 08:02 Order name: Labs collected and sent; Complete Time: 08:02 bp 02/01 08:07 Order name: CT Abd/Pelvis - IV Contrast Only; Complete Time: 10:12 kdr 02/01 08:08 Order name: Knee Right 3 View XRAY; Complete Time: 10:12 kdr 02/01 08:08 Order name: Mateo wrap-joint: Right knee; Complete Time: 09:41 kdr Administered Medications: 08:20 Drug: morphine 4 mg Route: IVP; Site: right antecubital; bp 09:41 Follow up: Response: Pain is decreased bp 08:20 Drug: Zofran (Ondansetron) 4 mg Route: IVP; Site: right antecubital; bp 09:41 Follow up: Response: Nausea is decreased bp Disposition: 02/02/20 10:41 Discharged to Home. Impression: Abdominal and pelvic pain, Pain in right knee, Sprain of other specified parts of right knee. - Condition is Stable. - Discharge Instructions: Musculoskeletal Pain, Abdominal Pain, Adult, Fkvi-ly-Sauo, Knee Pain, Honw-vz-Bbxb, Joint Pain, Amby-se-Vlit, Heat Therapy, Bsdq-ys-Wofl. - Prescriptions for Tramadol 50 mg Oral Tablet - take 1 tablet by ORAL route every 8 hours as needed; 20 tablet. - Medication Reconciliation Form, Thank You Letter, Prescription Opioid Use, Work release form form. - Follow up: David Neely MD; When: 2 - 3 days; Reason: If symptoms return, Further diagnostic work-up, Recheck today's complaints, Continuance of care, Re-evaluation by your physician. - Problem is new. - Symptoms have improved. Signatures: Dispatcher [employer] EDMS Panfilo Peetr MD MD kdr Mic Cardozo, RN RN bp Corrections: (The following items were deleted from the chart) 11:09 10:41 02/02/2020 10:41 Discharged to Home. Impression: Abdominal and pelvic pain; Pain bp in right knee; Sprain of other specified parts of right knee. Condition is Stable. Forms are Medication Reconciliation Form, Thank You Letter, Antibiotic Education, Prescription Opioid Use. Follow up: David Neely; When: 2 - 3 days; Reason: If symptoms return, Further diagnostic work-up, Recheck today's complaints, Continuance of care, Re-evaluation by your physician. Problem is new. Symptoms have improved. kdr
--- NOTE | 2020-02-02 10:42 | ER ---
Nurse's Notes [facility] Name: Shoaib Freitas Jr Age: 54 yrs Sex: Male : 1965 Arrival Date: 02/02/2020 Time: 07:51 Bed 17 Private MD: David Neely Diagnosis: Abdominal and pelvic pain;Pain in right knee;Sprain of other specified parts of right knee Presentation: 02/01 07:58 Chief complaint: Patient states: EPIGASTRIC PAIN AND REFLUX x3 DAYS. Coronavirus bp screen: At this time, the client does not indicate any symptoms associated with coronavirus-19. Ebola Screen: No symptoms or risks identified at this time. Initial Sepsis Screen: Does the patient meet any 2 criteria? No. Patient's initial sepsis screen is negative. Does the patient have a suspected source of infection? No. Patient's initial sepsis screen is negative. Risk Assessment: Do you want to hurt yourself or someone else? Patient reports no desire to harm self or others. Onset of symptoms is unknown. 07:58 Method Of Arrival: Ambulatory bp 07:58 Acuity: COBY 3 bp Triage Assessment: 08:00 General: Appears in no apparent distress. comfortable, Behavior is calm, cooperative, bp appropriate for age. Pain: Complains of pain in abdomen. EENT: No deficits noted. Neuro: No deficits noted. Cardiovascular: No deficits noted. Respiratory: No deficits noted. GI: Reports REFLUX. : No signs and/or symptoms were reported regarding the genitourinary system. Derm: No deficits noted. Musculoskeletal: No deficits noted. Historical: - Allergies: 08:00 No Known Allergies; bp - Home Meds: 08:00 diltiazem HCl 240 mg Oral cpER 1 cap once daily for Hypertension [Active]; prednisone 5 bp mg Oral tab once daily [Active]; valsartan 40 mg Oral tab 1 tab once daily for Hypertension [Active]; - PMHx: 08:00 Gall Stones; history of dialysis; Hypertension; kidney transplant; Pancreatitis; bp - Immunization history:: Adult Immunizations up to date. - Social history:: Smoking status: Patient denies any tobacco usage or history of. Screenin:01 Abuse screen: Denies threats or abuse. Denies injuries from another. Nutritional bp screening: No deficits noted. Tuberculosis screening: No symptoms or risk factors identified. Fall Risk None identified. Assessment: 08:01 General: SEE TRIAGE NOTE. bp 08:25 Reassessment: PT TO CT WITH MERCHANT PATROLLER. bp 09:30 Reassessment: Patient appears in no apparent distress at this time. Patient and/or bp family updated on plan of care and expected duration. Pain level reassessed. Patient is alert, oriented x 3, equal unlabored respirations, skin warm/dry/pink. 11:06 Reassessment: PT D/C HOME AMBULATORY, DX WITH ABDOMINAL PAIN AND R KNEE SPRAIN. bp Vital Signs: 07:58 BP 131 / 85; Pulse 86; Resp 16; Temp 97.9; Pulse Ox 95% ; bp 09:36 Pulse 72; Resp 16; Pulse Ox 94% ; bp 10:30 BP 131 / 89; Pulse 74; Resp 17; Pulse Ox 95% ; bp 11:07 BP 135 / 91; Pulse 69; Resp 17; Temp 97.9; Pulse Ox 97% ; bp ED Course: 07:51 Patient arrived in ED. ag5 07:51 David Neely MD is Private Physician. ag5 07:54 Mic Cardozo, PRINCESS is Primary Nurse. bp 07:58 Panfilo Peter MD is Attending Physician. kdr 07:59 Triage completed. bp 08:00 Arm band placed on. bp 08:01 Patient has correct armband on for positive identification. Placed in gown. Bed in low bp position. Call light in reach. Side rails up X2. 08:05 Inserted saline lock: 22 gauge in right antecubital area, using aseptic technique. bp Blood collected. 08:28 CT Abd/Pelvis - IV Contrast Only Sent. bp 09:17 CT Abd/Pelvis - IV Contrast Only In Process Unspecified. EDMS 09:23 Knee Right 3 View XRAY In Process Unspecified. EDMS 10:21 Mateo wrap to right knee. mh5 10:40 David Neely MD is Referral Physician. kdr 11:07 No provider procedures requiring assistance completed. IV discontinued, intact, bp bleeding controlled, No redness/swelling at site. Pressure dressing applied. Administered Medications: 08:20 Drug: morphine 4 mg Route: IVP; Site: right antecubital; bp 09:41 Follow up: Response: Pain is decreased bp 08:20 Drug: Zofran (Ondansetron) 4 mg Route: IVP; Site: right antecubital; bp 09:41 Follow up: Response: Nausea is decreased bp Outcome: 10:41 Discharge ordered by . kdr 11:07 Discharged to home ambulatory. bp 11:07 Condition: stable 11:07 Discharge instructions given to patient, Instructed on discharge instructions, follow up and referral plans. medication usage, Demonstrated understanding of instructions, follow-up care, medications, Prescriptions given X 1. 11:09 Patient left the ED. bp Signatures: Dispatcher [employer] EDMS Panfilo Peter MD MD [facility] Aleksandra Cramer 5 Mic Cardozo, PRINCESS RN bp Jay Russell 5 Corrections: (The following items were deleted from the chart) 08:03 07:58 Temp 97.9F; bp bp
[2020-02-02 11:16] VITALS: TEMP 97.9
[2020-02-02 11:21] VITALS: BP 135/91; O2SAT 97
== END 2020-02-02 11:09 | disposition home or self-care (01) ==
LOC: ER 07:48
DX: S83.8X1A Sprain of other specified parts of right knee, initial encounter (principal); M25.561 Pain in right knee; I10 Essential (primary) hypertension; Z94.0 Kidney transplant status
CPT/HCPCS: 85025; 80048; 36415; 82565; 82947; 80076; 83690; 74177; 73562; 96375; 96374; 99284; Q9967; J2405

== ENCOUNTER 2020-04-08 15:51 | Emergency (ER) | payer OTHER ==
--- OUTSIDE RECORDS SUMMARY | 2020-04-08 15:53 | XMS REPORT | Clinical Summary ---
:1965 Author Organization [facility] Address [address] [place] [address] Care Team Providers Name Role Phone Satish [...] of mariela sphorus metabolism, unspecified 07/04/2019 Travel after 04/08/2019 Surgical History Surgery Date Site/Laterality Comments TRANSPLANTATION RENAL 04/13/1997 - 04/12/1998 CHOLECYSTECTOMY, 01/16/2018 Abdomen/N/A Procedure: LAPA ROSCOPIC LAPAROSCOPIC CHOLECYSTECTOMY AND INTRAOPERATIVE CHOLANGIOGRAM; Surgeon: Cindy heard MD; Location: [facility] OR; Service: General ; Laterality: N/A; Medical History Medical History Date Comments Hypertension Social History Tobacco Use Types Packs/Day Years Used Date Former Smoker Smokeless Tobacco: Never Used Comments: "Quit 2-3 months ago" Alcohol Use Drinks/Week oz/Week Comments No Sex Assigned at Date Recorded Not on file Last Filed Vital Signs Not on file Plan of Treatment Health Maintenance Due Date Last Done Comments COVID-19 VACCINE (#1) 1982 COLONOSCOPY SCREENING 02/28/2016 SHINGLES VACCINES (#1) 02/28/2016 [...] are i n the results section. after 04/08/2019 Results Urinalysis screen and microscopy, with reflex to culture (01/30/2020 7:52 AM CDT)Only the most recent of2 resultswithin the time period is included. Specimen site Clean catch [facility] Color, UA Yellow [facility] Appearance, UA Clear [facility] Specific gravity, UA 1.023 1.001 - 1.035 [facility] pH, UA 5.0 5.0 - 8.5 [facility] Protein, UA 3+ (A) Negative [facility] Glucose, UA Negative Negative [facility] Ketones, UA Negative Negative [facility] Bilirubin, UA Negative Negative [facility] Blood, UA Moderate (A) Negative [facility] Nitrite, UA Negative Negative [facility] Urobilinogen, UA <2.0 <2.0 [facility] Leukocyte esterase, Negative Negative [facility] Epithelial cells, UA <1 /HPF [facility] WBC, UA 1 0 - 1 /HPF [facility] RBC, UA 7 (H) 0 - 5 /HPF [facility] Bacteria, UA None seen None seen [facility] Yeast, UA None seen [facility] Yeast with None seen [facility] pseudohyphae, HOSPITAL Specimen Urine Performing Organization Address City/[facility] Phon e Number [facility] DEPARTMENT OF PATHOLOGY AND [address] [place] [address] [address] Estimated GFR (01/30/2020 7:52 AM CDT)Only the most recent of2 resultswithin the time period is included. Estimated GFR 64 mL/min/1.73 [facility] Comment: HOSPITAL Catergory Units Interpretation G1 >=90 Normal [...] published in 2014. Specimen Performing Organization Address City/[facility] Phon e Number [facility] DEPARTMENT OF PATHOLOGY AND [address] [place] [phone] Cyclosporine level, random (01/30/2020 7:52 AM CDT)Only the most recent of2 resultswithin the time period is included. Cyclosporine 47 ng/mL [facility] Comment: HOSPITAL Unless administered by continuous IV drip, collect a p urple top tube just before the next dose. Therapeutic range of approximately 100-500 varies mainly with type of trans plant, use of other immunosuppressive agents, and evidence of toxicity or rejection. Test performed using [employer] chemiluminescent microparticle immunoassay for Cyclosporine on the [employer] i System. Specimen Blood Performing Organization Address City/[facility] Phon e Number [facility] DEPARTMENT OF PATHOLOGY AND [address] [place] [address] [address] Protein, urine, random (01/30/2020 7:52 AM CDT)Only the most recent of2 results within the time period is included. Pathologist Sig nature Protein, urine random 299 mg/dL [facility] Specimen Urine Performing Organization Address City/[facility] Phon e Number [facility] DEPARTMENT OF PATHOLOGY AND [address] [place], [place] [address] [facility] [address] [place] [address] Creatinine level, urine, random (01/30/2020 7:52 AM CDT)Only the most recent of 2 resultswithin the time period is included. Pathologist Sig nature Creatinine, urine, 200 mg/dL [facility] HOSPITAL Specimen Urine Performing Organization Address [facility] Phon e Number [facility] DEPARTMENT OF PATHOLOGY AND [address] [place], [place] [address] [facility] [address] [place] [address] CBC with platelet and differential (01/30/2020 7:52 AM CDT)Only the most recent of2 resultswithin the time period is included. WBC 7.55 4.50 - 11.00 [facility] k/uL HOSPITAL RBC 4.90 4.40 - 6.00 [facility] m/[facility] HGB 15.7 14.0 - 18.0 [facility] HCT 46.5 41.0 - 51.0 % [facility] MCV 94.9 82.0 - 100.0 [facility] MCH 32.0 27.0 - 34.0 pg [facility] MCHC 33.8 31.0 - 37.0 [facility] RDW - SD 41.5 37.0 - 55.0 fL [facility] MPV 9.2 8.8 - 13.2 fL [facility] Platelet count 284 150 - 400 k/uL [facility] Nucleated RBC 0.00 /100 WBC [facility] Neutrophils 56.9 39.0 - 69.0 % [facility] Lymphocytes 29.7 25.0 - 45.0 % [facility] Monocytes 9.3 0.0 - 10.0 % [facility] Eosinophils 2.9 0.0 - 5.0 % [facility] Basophils 0.9 0.0 - 1.0 % [facility] Immature granulocytes 0.3Comment: 0.0 - 1.0 % [facility] "Immature HOSPITAL granulocytes" (promyelocytes , myelocytes, metamyelocytes ) Specimen Blood Performing Organization Address [facility] Phon e Number [facility] DEPARTMENT OF PATHOLOGY AND [address] [place] [address] [place] [phone] Urine culture (01/30/2020 7:52 AM CDT)Only the most recent of2 resultswithin the time period is included. Pathologist Sig nature Urine culture SEE COMMENTComment: [facility] Bacteriuria screen HOSPITAL negative. Specimen Performing Organization Address [facility] Phon e Number [facility] DEPARTMENT OF PATHOLOGY AND [address] [place] [phone] Uric acid level (01/30/2020 7:52 AM CDT)Only the most recent of2 resultswithin the time period is included. Pathologist Sig nature Uric acid 8.4 (H) 3.4 - 7.0 mg/dL [facility] Specimen Blood Performing Organization Address [facility] Phon e Number [facility] DEPARTMENT OF PATHOLOGY AND [address] [place], [place] [address] [address] [address] Phosphorus level (01/30/2020 7:52 AM CDT)Only the most recent of2 resultswithin the time period is included. Pathologist Sig nature Phosphorus 2.4 2.4 - 4.5 mg/dL [facility] Specimen Blood Performing Organization Address [facility] Phon e Number [facility] DEPARTMENT OF PATHOLOGY AND [address] [place] [phone] Magnesium level (01/30/2020 7:52 AM CDT)Only the most recent of2 resultswithin the time period is included. Pathologist Sig nature Magnesium 2.1 1.6 - 2.6 mg/dL [facility] L Specimen Blood Performing Organization Address City/[facility] Phon e Number [facility] DEPARTMENT OF PATHOLOGY AND [address] [place] [address] [address] [address] LDH (01/30/2020 7:52 AM CDT)Only the most recent of2 resultswithin the time period is included. Pathologist Sig nature LDH 209 87 - 225 U/L [facility] Specimen Blood Performing Organization Address City/[facility] Phon e Number [facility] DEPARTMENT OF PATHOLOGY AND [address] [place] [address] [address] [address] Comprehensive metabolic panel (01/30/2020 7:52 AM CDT)Only the most recent of2 resultswithin the time period is included. Sodium 139 135 - 148 [facility] mEq/L [facility] Potassium 4.5 3.5 - 5.0 [facility] mEq/L [facility] Chloride 103 98 - 112 [facility] mEq/L [facility] CO2 23 (L) 24 - 31 mEq/L [facility] Anion gap 13@ANIO 7 - 15 mEq/L [facility] BUN 26 (H) 6 - 20 mg/dL [facility] Creatinine 1.42 (H) 0.70 - 1.20 [facility] mg/dL HOSPITAL Glucose 109 (H) 65 - 99 mg/dL [facility] Calcium 10.5 (H) 8.3 - 10.2 [facility] mg/dL [facility] Protein 8.0 6.3 - 8.3 [facility] Comment: g/dL HOSPITAL - 4.6-7.0 g/dL 1 week 4.4-7.6 g/dL 7 months-1year 5.1-7.3 g/dL 1-2 years 5.6-7.5 g/dL >3 years 6.0-8.0 g/dL 18-150 6.3-8.3 g/dL Albumin 3.6 3.5 - 5.0 [facility] g/dL HOSPITAL A/G ratio 0.8 0.7 - 3.8 [facility] Alkaline phosphatase 76 40 - 129 U/L [facility] AST 29 10 - 50 U/L [facility] ALT 36 5 - 50 U/L [facility] Total bilirubin 0.3 0.0 - 1.2 [facility] mg/dL HOSPITAL Specimen Blood Performing Organization Address City/[facility] Phon e Number [facility] DEPARTMENT OF PATHOLOGY AND [address] [place] [address] [phone] [place] [address] after 04/08/2019 Insurance Payer Benefit Plan / Subscriber ID Effective Dates Phone Addre ss Type Group MEDICARE MEDICARE PART A [id number] 1993-Present [facility] [place] Medicare AND B
--- OUTSIDE RECORDS SUMMARY | 2020-04-08 15:54 | XMS REPORT | Continuity of Care Document ---
:1965 Author Organization [facility] t Address [address] [place] [address] Care Team Providers Name Role Phone Peter ALVAREZ, Akin Primary Care Physician Félix SÁNCHEZ, D Attending Clinician Unavailable Only, Test Attending Clinician Unavailable Carole ALVAREZ, M. Attending Clinician Chase ALVAREZ Attending Clinician Payers Payer Name Policy Type Policy Effective Date Expiration Date Sour ce Number MEDICAREMEDICARE PART [id number] 1993 Victorino Arredondo AND 00:00:00 Confucianism [id number]/[id number][place] MEDIC[facility] [id number] 2016 ISA Donald [facility] CAREAMERIGROUP 00:00:00 - [facility] pamella [id number]/ [address] ter 16-Present Problems Condition Condition Condition Status Onset Resolution Last Treating Co mments Source Name Details Category Date Date Treatment Clinician Date Kidney Kidney Disease Active 2017-04 [place] 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 Family History Family Member Diagnosis Comments Start Date Stop Date Source Natural father Hypertension [facility] Natural mother Heart disease [facility] Natural mother Hypertension [facility] Natural sister Diabetes [facility] Social History Social Habit Start Date Stop Date Quantity Comments Source Sex Assigned At [facility] ethodist Tobacco use and 2018-01-18 2018-01-18 Never used [facility] ethodist exposure 00:00:00 00:00:00 Alcohol intake 2018-01-18 2018-01-18 Current [facility] thodist 00:00:00 00:00:00 non-drinker of alcohol (finding) Tobacco Comment 2018-01-15 2018-01-15 "Quit 2-3 months Tiffany ston Confucianism 00:00:00 00:00:00 ago" Smoking Status Start Date Stop Date Source Former smoker 2018-01-18 00:00:00 2018-01-18 00:00:00 [place] [facility] Current some day 2016-03-26 00:00:00 [facility] Medications Ordered Filled Start Stop Current Ordering [...] Performed URINE CULTURE 2020-01-30 07:52:00 Juan Klein Me thodist COMPREHENSIVE METABOLIC 2020-01-30 07:52:00 Juan Klein Confucianism PANEL HC COMPLETE BLD COUNT 2020-01-30 07:52:00 Juan Klein Confucianism W/AUTO DIFF MAGNESIUM LEVEL 2020-01-30 07:52:00 Juan Klein Tx thodist PHOSPHORUS LEVEL 2020-01-30 07:52:00 Juan Klein M ethodist URIC ACID LEVEL 2020-01-30 07:52:00 Juan Klein Me thodist LDH 2020-01-30 07:52:00 Juan Klein Tx thodist URINALYSIS SCREEN AND 2020-01-30 07:52:00 Juan Klein Confucianism MICROSCOPY, WITH REFLEX TO CULTURE CREATININE LEVEL, URINE, 2020-01-30 07:52:00 Juan Klein Confucianism RANDOM PROTEIN, URINE, RANDOM 2020-01-30 07:52:00 Juan Klein Confucianism CYCLOSPORINE LEVEL, 2020-01-30 07:52:00 Juan Klein Confucianism RANDOM ESTIMATED GFR 2020-01-30 07:52:00 Juan Klein Me thodist SARS-COV2/RT-PCR ([facility] & 2019-09-16 21:40:00 [facility] HC COMPLETE BLD COUNT 2019-07-04 09:01:00 Jean Paul Fabian on Confucianism W/AUTO DIFF MAGNESIUM LEVEL 2019-07-04 09:01:00 Jean Paul Fabian Met hodist PHOSPHORUS LEVEL 2019-07-04 09:01:00 Jean Paul Fabain Me thodist URIC ACID LEVEL 2019-07-04 09:01:00 Jean Paul Fabian Met hodist LDH 2019-07-04 09:01:00 Jean Paul Fabian Met hodist COMPREHENSIVE METABOLIC 2019-07-04 09:01:00 Jean Paul Fabian Confucianism PANEL CYCLOSPORINE LEVEL, 2019-07-04 09:01:00 Chase, Jean Paul Jacobson Confucianism RANDOM ESTIMATED GFR 2019-07-04 09:01:00 Jean Paul Fabian Met hodist URINE CULTURE 2019-07-04 08:56:00 Jean Paul Fabian Met hodist URINALYSIS SCREEN AND 2019-07-04 08:56:00 Jean Paul Fabian on Confucianism MICROSCOPY, WITH REFLEX TO CULTURE PROTEIN, URINE, RANDOM 2019-07-04 08:56:00 Jean Paul Fabian Confucianism CREATININE LEVEL, URINE, 2019-07-04 08:56:00 Jean Paul Fabian Confucianism RANDOM Plan of Care Planned Activity Planned Date Details Comments Source Future Scheduled 2019-11-12 INFLUENZA VACCINE [place] [facility] 00:00:00 [code = INFLUENZA VACCINE] Future Scheduled 2016-02-28 COLONOSCOPY SCREENING [place] [facility] 00:00:00 [code = COLONOSCOPY SCREENING] Future Scheduled 2016-02-28 SHINGLES VACCINES [place] [facility] 00:00:00 (#1) [code = SHINGLES VACCINES (#1)] Future Scheduled 1982 COVID-19 VACCINE (#1) [place] [facility] Test 00:00:00 [code = COVID-19 VACCINE (#1)] Encounters Start End Encounter Admission Attending Care Care Encounter Source Date/Time Date/Time Type Type Clinicians Facility Department ID 2020-03-18 2020-03-18 Telephone WINSTON Heard [id number] 00:00:00 00:00:00 Gabriela TARIQ [id number] [facility] [id number] 2020-03-16 2020-03-16 Laboratory Only, [facility] [id number] 15:00:29 15:15:29 Only Test [place] [id number] [place] [id number] [place] [id number] 2020-01-30 2020-01-30 Outpatient [facility] [id number] [place] 00:00:00 00:00:[address] 2020-01-23 2020-01-23 Outpatient [facility] [id number] [place] 00:00:00 00:00:[address] 2020-01-09 2020-01-09 Outpatient CAROLE [facility] [id number] [place] 00:00:00 00:00:[address] 2019-07-04 2019-07-04 Outpatient Usha FABIAN [facility] [id number] [place] 00:00:00 00:00:[address] Results Test Description Test Time Test Comments Results Result Comments Source Cyclosporine level, random 2020-01-30 11:30:53 Test Item Value Reference Range Interpretation Comme nts Cyclosporine (test code = 47 ng/mL Un less administered by continuous IV drip, 97671-1) collect a purpl e top tube just before the next dose. Ther apeutic range of approximately 1 00-500 varies mainly with type of transpl ant,use of other immunosuppressi ve agents, and evidence of toxicity or rej ection. Test performed using [employer] t chemiluminescen tmicroparticle immunoassay for Cyclosporin e on the DIGITAL MARKETING MANAGER i System. [place] [facility] [id number] 09:50:08 Test Item Value Reference Range Interpretation Comments Sodium (test code = 139 135- 148 mEq/L 2951-2) Potassium (test code = 4.5 3.5- 5.0 mEq/L 2823-3) Chloride (test code = 103 98- 112 mEq/L 2075-0) CO2 (test code = 2027-9) 23 24- 31 mEq/L L Anion gap (test code = 13@ANIO 7- 15 mEq/L 14417-6) BUN (test code = 3094-0) 26 mg/dL 6-20 H Creatinine (test code = 1.42 mg/dL 0.7-1.2 H 2160-0) Glucose (test code = 109 mg/dL 65-99 H 2345-7) Calcium (test code = 10.5 mg/dL 8.3-10.2 H 48314-3) Protein (test code = 8.0 g/dL 6.3-8.3 -[place] 2885-2) 4.6-7.0 g/dL1 week 4.4-7 .6 g/dL7 months-1y ear 5.1-7 .3 g/dL1-2 years 5.6-7 .5 g/dL>3 years 6.0-8 .0 g/cP52-526 6.3-8 .3 g/dL Albumin (test code = 3.6 g/dL 3.5-5 1751-7) A/G ratio (test code = 0.8 0.7-3.8 1759-0) Alkaline phosphatase 76 U/L 40-129 (test code = 6768-6) AST (test code = 1920-8) 29 U/L 10-50 ALT (test code = 1742-6) 36 U/L 5-50 Total bilirubin (test 0.3 mg/dL 0-1.2 code = 1975-2) Lab Interpretation (test Abnormal code = 16944-0) Jacobson [id number] 09:50:08 Test Item Value Reference Range Interpretation Comments LDH (test code = 95213-6) 209 U/L 87-225 [place] MethodistMagnesium [id number] 09:50:08 Test Item Value Reference Range Interpretation Comments Magnesium (test code = 31003-8) 2.1 mg/dL 1.6-2.6 [place] MethodistUric acid [id number] 09:50:08 Test Item Value Reference Range Interpretation Comments Uric acid (test code = 3084-1) 8.4 mg/dL 3.4-7 H Lab Interpretation (test code = Abnormal 74479-5) [place] MethodistEstimated [id number] 09:50:08 Test Item Value Reference Range Interpretation Comments Estimated GFR (test 64 mL/min/1.73 m2 [facility] Units code = 5488) InterpretationG 1 >=90 Normal or highG2 60-89 Mildly wlorywgeuT8d 45-59 Mildly to mode rately ozzeqojytZ2r 30-44 Moderately to severely decreasedG4 15-29 Severely decre asedG5 <15 Kidn ey failureThe eGFR was calculated maryuri varela the Chronic Kidney Disease Epidemiology Co llaboration (CKD-EPI) equat ion. Interpretation is based on recommendations of the National Kidney Foundation-Kidn ey Disease Outcomes Qualit y Initiative (NKF-KDOQI) pub lished in 2014. Jacobson MethodistPhosphorus [id number] 09:50:04 Test Item Value Reference Range Interpretation Comments Phosphorus (test code = 2777-1) 2.4 mg/dL 2.4-4.5 Kavon MethodistProtein, urine, [id number] 09:01:38 Test Item Value Reference Range Interpretation Comments Protein, urine random (test code = 299 mg/dL 2888-6) [facility]on MethodistUrinalysis screen and microscopy, with reflex to culture 2020-01-30 08:55:13 Test Item Value Reference Range Interpretation Comments Specimen site (test code = Clean catch 6825448) Color, UA (test code = 5778-6) Yellow Appearance, UA (test code = Clear 5767-9) Specific gravity, UA (test code = 1.023 1.001-1.035 5811-5) pH, UA (test code = 5803-2) 5.0 5.0-8.5 Protein, UA (test code = 89327-1) 3+ Negative A Glucose, UA (test code = 02262-4) Negative Negative Ketones, UA (test code = 2514-8) Negative Negative Bilirubin, UA (test code = Negative Negative 5770-3) Blood, UA (test code = 5794-3) Moderate Negative A Nitrite, UA (test code = 5802-4) Negative Negative Urobilinogen, UA (test code = <2.0 <2.0 66625-1) Leukocyte esterase, UA (test code Negative Negative = 5799-2) Epithelial cells, UA (test code = <1 /HPF 5787-7) WBC, UA (test code = 5821-4) 1 0- 1 /HPF RBC, UA (test code = 07393-3) 7 0- 5 /HPF H Bacteria, UA (test code = None seen None seen 73648-7) Yeast, UA (test code = 09594-1) None seen Yeast with pseudohyphae, UA (test None seen code = 64107-3) Lab Interpretation (test code = Abnormal 38365-0) [facility] MethodistCreatinine level, urine, [id number] 08:50:30 Test Item Value Reference Range Interpretation Comments Creatinine, urine, random (test 200 mg/dL code = 82197-3) [facility] MethodistUrine [id number] 08:34:03 Test Item Value Reference Range Interpretation Comments Urine culture (test SEE COMMENT Bacteriu deandre screen code = 7634741) negative. Jacobson MethodistCBC with platelet and oxyvaacfbqgj9402-33-69 08:22:46 Test Item Value Reference Range Interpretation Comments WBC (test code = 7.55 4.50- 11.00 k/uL 62283-6) RBC (test code = 4.90 m/uL 4.4-6 43612-4) HGB (test code = 718-7) 15.7 g/dL 14-18 HCT (test code = 4544-3) 46.5 % 41-51 MCV (test code = 787-2) 94.9 fL 82-100 MCH (test code = 785-6) 32.0 pg 27-34 MCHC (test code = 786-4) 33.8 g/dL 31-37 RDW - SD (test code = 41.5 fL 37-55 57208-9) MPV (test code = 9.2 fL 8.8-13.2 76402-3) Platelet count (test 284 150- 400 k/uL code = 28353-5) Nucleated RBC (test code 0.00 /100 WBC = 82603-8) Neutrophils (test code = 56.9 % 39-69 57855-6) Lymphocytes (test code = 29.7 % 25-45 43913-2) Monocytes (test code = 9.3 % 0-10 22269-1) Eosinophils (test code = 2.9 % 0-5 68077-2) Basophils (test code = 0.9 % 0-1 38471-0) Immature granulocytes 0.3 % 0-1 "Immat ure (test code = 00639-6) granul ocytes" (promyelocytes, myelocytes, metamyelocytes) [facility])2019-09-17 04:32:00 Test Item Value Reference Range Interpretation Comments SARS-COV2/RT-PCR Not Detected Not Detected, (test code = Negative 20152-4) SARS-COV-2 [facility] PERFORMING LAB (test code = 68374-3) CATRACHO (test code = Negative results do [...] of the Act. Fact Sheet for Healthcare Providers:https://www.[employer]/Documents/Xper t%20Xpress%20SARS%20CoV- 2/Fact%20Sheets/3023802 %73BBPN-GYB-6%20HEALTHCA RE%20PROVIDERS%20FACT%20 SHEET.pdf Fact Sheet for Healthcare Patients:https://www.[employer].Pricing Assistant/Documents/Xpert %20Xpress%20SARS%20CoV-2 /Fact%20Sheets/3023801% 79DYQA-JXZ-2%20PATIENT%2 0FACT%20SHEET.pdf Performing Laboratory:[facility], [place] [address] [place], [place] [address]ARS-COV2/RT-PCR ([facility]F [facility])2019-09-17 04:32:00 Test Item Value Reference Range Interpretation Comments SARS-COV2/RT-PCR (test Not Detected Not Detected, Negative code = 0806538) SARS-COV-2 PERFORMING LAB [facility] (test code = 3794630) Negative results do not preclude SARS-CoV-2 infection [...] of the Act.Fact Sheet for Healthcare Pro viders:https://www.[employer]/Documents/Xpert%20Xpress%20SARS%20CoV-2/Fact%20Sh eets/3023802%22GGAF-YMD-3%20HEALTHCARE%20PROVIDERS%20FACT%20SHEET.pdfFact Sheet for Healthcare Patients:https://www.[employer]/Documents/Xpert%20Xpress%20SARS%20CoV-2/Fact%20Sheets/3023801%20SARS-COV -2%20PATIENT%20FACT%20SHEET.pdfPerforming Laboratory:[facility] [place] [address]
--- OUTSIDE RECORDS SUMMARY | 2020-04-08 15:54 | XMS REPORT | Summary of Care ---
:1965 Author Organization [facility] Address [address] [place] [address] Care Team Providers Name Role Phone Pcp, Patient Does Not Have A Primary Care Provider +1-000-00 0-0000 Reason for Visit Reason Comments Results Encounter Details Date Type Department Care Team Description 03/18/2020 Telephone [facility] Gabriela Heard, RN Results [address] [phone] [place] [address] Allergies Not on Filedocumented as of this encounter (statuses as of 03/18/2020) Medications Not on filedocumented as of this encounter (statuses as of 03/18/2020) Active Problems Not on filedocumented as of this encounter (statuses as of 03/18/2020) Social History Tobacco Use Types Packs/Day Years Used Date Never Assessed Sex Assigned at Date Recorded Not on file COVID-19 Exposure Response Date Recorded In the last month, have you been in contact with No / Unsure 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 documented as of this encounter Last Filed Vital Signs Not on filedocumented in this encounter Miscellaneous Notes Telephone Encounter - Gabriela Heard, RN - 03/18/2020 11:48 PM CSTPatient received COVID19 result through successful text message. [facility] [place] Gabriela Heard, MSN, RN-BC INE CLOTHING REPLACER documented in this encounter Plan of Treatment Health Maintenance Due Date Last Done Comments Depression Screening 1978 DTaP,Tdap,and Td Vaccines (1 - 1985 Tdap) COLON CANCER SCREENING ANNUAL 02/28/2016 FIT/FOBT COLON CANCER SCREENING FIT DNA 02/28/2016 EVERY 3 YEARS COLON CANCER SCREENING 02/28/2016 SIGMOIDOSCOPY EVERY 5 YEARS COLONOSCOPY 02/28/2016 Colorectal Cancer Screening 02/28/2016 Zoster Recombinant Vaccine 02/28/2016 (SHINGRIX) (1 of 2) INFLUENZA VACCINE (#1) 2019 PNEUMOCOCCAL 0-64 YEARS COMBINED Aged Out No longer eligible based on SERIES patient's age to complete this topic documented as of this encounter Results Not on filedocumented in this encounter Insurance Payer Benefit Plan / Subscriber ID Effective Dates Phone Addre ss Type Group MEDICARE MEDICARE PART [id number] 1992-Ad [phone] Medicare A & B t 2 [id number] [place] [id number] documented as of this encounter
--- OUTSIDE RECORDS SUMMARY | 2020-04-08 15:54 | XMS REPORT | Summary of Care ---
:1965 Author Organization [facility] Address [address] [place] [address] Care Team Providers Name Role Phone Pcp, Patient Does Not Have A Primary Care Provider +1-000-00 0-0000 Reason for Visit Reason Comments LAB WORK Encounter Details Date Type Department Care Team Description 03/16/[address] [facility] Tay Hsu MD 301 [facility] [id number] [place] [address] COVID-19 (Primary Dx) Phlebotomy Only, [facility] Test Lab-[address] [address] Allergies Not on Filedocumented as of this encounter (statuses as of 03/16/2020) Medications Not on filedocumented as of this encounter (statuses as of 03/16/2020) Active Problems Not on filedocumented as of this encounter (statuses as of 03/16/2020) Social History Tobacco Use Types Packs/Day Years Used Date Never Assessed Sex Assigned at Date Recorded Not on file COVID-19 Exposure Response Date Recorded In the last month, have you been in contact with No / Unsure 03/16/2020 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 documented as of this encounter Last Filed Vital Signs Not on filedocumented in this encounter Nursing Notes Dolores Maynard - 03/16/2020 3:15 PM CSTCovid swab collected. documented in this encounter Plan of Treatment Name Type Priority Associated Diagnoses Date/Ti me COVID-19 (MOLECULAR LAB Routine COVID-19 03/16/20 20 3:21 PM ELECTRICAL CALIBRATOR TESTING NUCLEIC ACID AMPLIFICATION) Name Type Priority Associated Diagnoses Order S ryanne COVID-19 (MOLECULAR LAB Routine COVID-19 Expected : 03/16/2020, TESTING Expires: 021 NUCLEIC ACID AMPLIFICATION) Health Maintenance Due Date Last Done Comments [...] Results Not on filedocumented in this encounter Visit Diagnoses Diagnosis COVID-19 - Primary documented in this encounter Insurance Payer Benefit Plan / Subscriber ID Effective Dates Phone Addre ss Type Group MEDICARE MEDICARE PART [id number] 1992-Ad [phone] Medicare A & B t 2 [id number] [place] [id number] documented as of this encounter
--- OUTSIDE RECORDS SUMMARY | 2020-04-08 15:54 | XMS REPORT | Clinical Summary ---
:1965 Author Organization [facility] Address [address] [place] [address] Care Team Providers Name Role Phone Akin Green MD Primary Care Provider Allergies No Known Allergies Medications Not on file Active Problems Not on file Encounters Date Type Specialty Care Team Description 09/17/2019 Lab Requisition Lab after 04/08/2019 Family History Medical History Relation Name Comments [...] 09/16/2019 9:40 PM Resu lts for this ([facility]) CDT procedure are in the results section. after 04/08/2019 Results SARS-CoV2/RT-PCR ([facility]) (09/16/2019 9:40 PM CDT) SARS-COV2/RT-PCR Not Detected Not Detected, [facility] Negative [facility] SARS-COV-2 [facility] PERFORMING LAB [facility] Specimen Other - Nasopharyngeal wall structure (b sue structure) Narrative Performed At Negative results do not preclude SARS-CoV-2 [facility] infection and should not be used as [...] the Act. Fact Sheet for Healthcare Providers: https://www.[employer]/Documents/Xpert%20Xpre ss%20SARS%20CoV-2/Fact%20Sheets/3023802%20SAR S-COV-2%20HEALTHCARE%20PROVIDERS%20FACT%20SHEE T.pdf Fact Sheet for Healthcare Patients: https://www.[employer]/Documents/Xpert%20Xpre ss%20SARS%20CoV-2/Fact%20Sheets/3023801%20SAR S-COV-2%20PATIENT%20FACT%20SHEET.pdf Performing Laboratory: [address] [place] [address] Performing Organization Address City/State/Zipcode Phone Number [address] [address] CENTER after 04/08/2019 Insurance Payer Benefit Plan / Subscriber ID Effective Dates Phone Addre ss Type Group [employer] [place] [id number] 2016-Prese MEDICARE MCD CARE nt
[2020-04-08] MEDS ORDERED: MAGNES/ALUMIN/SIMET 30ML UCUP ONE (20:29)
[2020-04-08] MEDS ORDERED: LIDOCAINE VISCOUS 2% SOLN 15 ML UDC ONE (20:29)
[2020-04-08] MEDS ORDERED: KETOROLAC 30 MG/ML INJ ONE (20:56)
[2020-04-08 21:06] LABS: Absolute Lymphocytes (CBC) 2.5 K/uL (0.7-4.9); Basophils % 0.6 % (0-1.3); Hematocrit 44.3 % (39.6-49.0); MPV 7.5 fL (7.6-11.3); RBC Red Blood Cell Count 4.71 M/uL (4.33-5.43)
[2020-04-08] MEDS ORDERED: MORPHINE 4 MG/ML SYR ONE (21:14)
[2020-04-08] MEDS ORDERED: ONDANSETRON 4 MG/2 ML VIAL ONE (21:14)
[2020-04-08 21:18] LABS: ALT/SGPT 43 U/L (12-78); AST/SGOT 25 U/L (15-37); Albumin 3.8 g/dL (3.4-5.0); Alkaline Phosphatase 87 U/L (45-117); BUN Blood Urea Nitrogen 13 mg/dL (7-18); Bicarbonate 26 mmol/L (21-32); Bilirubin Direct < 0.1 mg/dL (0-0.2); Bilirubin Total 0.4 mg/dL (0.2-1.0); Glucose Level 106 mg/dL (74-106); Lipase 143 U/L (73-393); Potassium 3.6 mmol/L (3.5-5.1); Protein, Total 8.5 g/dL (6.4-8.2); Sodium Level 139 mmol/L (136-145)
--- NOTE | 2020-04-08 21:30 | EDPHYS ---
Physician Documentation [facility] Name: Shoaib Freitas Jr Age: 55 yrs Sex: Male : 1965 Arrival Date: 04/08/2020 Time: 15:51 Bed 5 Private MD: David Neely ED Physician Phoenix Mandujano HPI: 04/08 21:24 This 55 yrs old Black Male presents to ER via Ambulatory with complaints of Abdominal tw4 Pain, Knee Pain. 21:24 The patient presents with decreased range of motion, an injury. The complaints affect tw4 the lateral aspect of left knee, posterior aspect of left knee, medial aspect of left knee and left knee. Context: The problem was sustained at home, resulted from a penetrating injury, twisting of the extremity. Onset: The symptoms/episode began/occurred yesterday. Modifying factors: The symptoms are alleviated by remaining still, the symptoms are aggravated by movement, weight bearing, bending knee. Associated signs and symptoms: The patient has no apparent associated signs or symptoms. The patient presents with abdominal pain. Onset: The symptoms/episode began/occurred 3 day(s) ago. Treatment prior to arrival includes: no previous treatment. The symptoms do not radiate. The symptoms are described as intermittent, sharp. Modifying factors: The symptoms are alleviated by nothing, the symptoms are aggravated by. The patient has not experienced similar symptoms in the past. Historical: - Allergies: 16:06 No Known Allergies; ca1 - PMHx: 16:06 Gall Stones; history of dialysis; Hypertension; Pancreatitis; kidney transplant; ca1 - PSHx: 16:06 Cholecystectomy; Kidney Tranplant; ca1 - Immunization history:: Adult Immunizations up to date, Flu vaccine is up to date. - Social history:: Smoking status: Patient/guardian denies using tobacco, the patient reports quitting approximately 1 years ago. ROS: 21:24 Constitutional: Negative for fever, chills, and weight loss, Eyes: Negative for injury, tw4 pain, redness, and discharge, Cardiovascular: Negative for chest pain, palpitations, and edema, Respiratory: Negative for shortness of breath, cough, wheezing, and pleuritic chest pain, Abdomen/GI: Negative for abdominal pain, nausea, vomiting, diarrhea, and constipation, Back: Negative for injury and pain, MS/Extremity: Negative for injury and deformity, Skin: Negative for injury, rash, and discoloration. Exam: 21:24 Constitutional: This is a well developed, well nourished patient who is awake, alert, tw4 and in no acute distress. Head/Face: Normocephalic, atraumatic. Chest/axilla: Normal chest wall appearance and motion. Nontender with no deformity. No lesions are appreciated. Cardiovascular: Regular rate and rhythm with a normal S1 and S2. No gallops, murmurs, or rubs. Normal PMI, no JVD. No pulse deficits. Respiratory: Lungs have equal breath sounds bilaterally, clear to auscultation and percussion. No rales, rhonchi or wheezes noted. No increased work of breathing, no retractions or nasal flaring. Abdomen/GI: Soft, non-tender, with normal bowel sounds. No distension or tympany. No guarding or rebound. No evidence of tenderness throughout. Back: No spinal tenderness. No costovertebral tenderness. Full range of motion. MS/ Extremity: Pulses equal, no cyanosis. Neurovascular intact. Full, normal range of motion. Neuro: Awake and alert, GCS 15, oriented to person, place, time, and situation. Cranial nerves II-XII grossly intact. Motor strength 5/5 in all extremities. Sensory grossly intact. Cerebellar exam normal. Normal gait. Vital Signs: 16:02 BP 158 / 101; Pulse 86; Resp 16 S; Temp 99.2(TE); Pulse Ox 98% on R/A; Weight 48.53 kg ca1 (R); Height 5 ft. 11 in. (180.34 cm) (R); Pain 8/10; 21:44 BP 142 / 62; Pulse 80; Resp 18; Pulse Ox 98% on R/A; ea 16:02 Body Mass Index 14.92 (48.53 kg, 180.34 cm) ca1 MDM: 19:40 Patient medically screened. tw4 21:24 Differential diagnosis: dislocation. Data reviewed: vital signs, nurses notes. Data tw4 interpreted: Pulse oximetry: Interpretation: normal. Counseling: I had a detailed discussion with the patient and/or guardian regarding: the historical points, exam findings, and any diagnostic results supporting the discharge/admit diagnosis. Medication response: morphine markedly relieved the patient's pain. Symptoms have improved. Response to treatment: There is no appreciated change of the patient's symptoms at this time. Special discussion: I discussed with the patient/guardian in detail that at this point there is no indication for admission to the hospital. It is understood, however, that if the symptoms persist or worsen the patient needs to return immediately for re-evaluation. 04/08 19:42 Order name: Basic Metabolic Panel; Complete Time: 21:23 tw4 04/08 21:24 Interpretation: Normal except: CRE 1.39; GFR 65. tw4 04/08 19:42 Order name: CBC with Diff; Complete Time: 21:23 tw4 04/08 21:24 Interpretation: Normal except: MPV 7.5. tw4 04/08 19:42 Order name: Hepatic Function; Complete Time: 21:23 tw4 04/08 21:24 Interpretation: Normal except: A/G 0.8; GLOB 4.7; TP 8.5. tw4 04/08 19:42 Order name: Lipase; Complete Time: 21:23 tw4 04/08 21:24 Interpretation: Within normal limits: LIP 143. tw4 04/08 20:24 Order name: Abdomen 1 View (KUB) XRAY tw4 04/08 20:33 Order name: XRAY Knee RIGHT 3 view 04/08 19:42 Order name: IV Saline Lock; Complete Time: 21:10 tw4 04/08 19:42 Order name: Labs collected and sent; Complete Time: 21:10 tw4 Administered Medications: 20:34 Drug: GI Cocktail without - (Maalox Suspension 30 ml, Lidocaine Liquid 2 % 15 ea ml) Route: PO; 21:45 Follow up: Response: No adverse reaction ea 20:56 Not Given (Other Intervention Used): TORadol 60 mg IM once ea 21:05 Drug: Zofran (Ondansetron) 4 mg Route: IVP; Site: right forearm; ea 21:45 Follow up: Response: No adverse reaction ea 21:10 Drug: morphine 4 mg {Note: rass 0.} Route: IVP; Site: right forearm; ea 21:45 Follow up: Response: No adverse reaction ea Disposition: 04/08/20 21:29 Discharged to Home. Impression: Gastritis, unspecified, Sprain of other specified parts of left knee. - Condition is Stable. - Discharge Instructions: Gastritis, Adult, [id number], Knee Sprain, [id number]. - Prescriptions for Bentyl 20 mg Oral Tablet - take 1 tablet by ORAL route every 6 hours As needed; 20 tablet. Carafate 1 gram Oral Tablet - take 1 tablet by ORAL route 4 times per day take on an empty stomach, beginning on waking and last dose at bedtime; 100 tablet. Tylenol- Codeine #3 300-30 mg Oral Tablet - take 2 tablet by ORAL route every 6 hours As needed; 6 tablet. - Work release form, Medication Reconciliation Form, Thank You Letter, Antibiotic Education, Prescription Opioid Use form. - Follow up: David Neely MD; When: Upon discharge from the Emergency Department; Reason: Recheck today's complaints, Continuance of care, Re-evaluation by your physician. - Problem is new. - Symptoms have improved. Signatures: Dispatcher [employer] EDMS Anni Rivas RN RN ea Wadley, Terrence, MD MD tw4 Rose Armando RN RN ca1 Corrections: (The following items were deleted from the chart) 21:30 21:29 04/08/2020 21:29 Discharged to Home. Impression: Gastritis, unspecified. tw4 Condition is Stable. Forms are Medication Reconciliation Form, Thank You Letter, Antibiotic Education, Prescription Opioid Use. Follow up: David Neely; When: Upon discharge from the Emergency Department; Reason: Recheck today's complaints, Continuance of care, Re-evaluation by your physician. Problem is new. Symptoms have improved. tw4 21:53 21:30 04/08/2020 21:29 Discharged to Home. Impression: Gastritis, unspecified; Sprain ea of other specified parts of left knee. Condition is Stable. Discharge Instructions: Gastritis, Adult, [id number]-[id number]-[id number]. Prescriptions for Bentyl 20 mg Oral Tablet - take 1 tablet by ORAL route every 6 hours As needed; 20 tablet, Carafate 1 gram Oral Tablet - take 1 tablet by ORAL route 4 times per day take on an empty stomach, beginning on waking and last dose at bedtime; 100 tablet. and Forms are Medication Reconciliation Form, Thank You Letter, Antibiotic Education, Prescription Opioid Use. Follow up: David Neely; When: Upon discharge from the Emergency Department; Reason: Recheck today's complaints, Continuance of care, Re-evaluation by your physician. Problem is new. Symptoms have improved. tw4
--- NOTE | 2020-04-08 21:30 | ER ---
Nurse's Notes [facility] Name: Shoaib Freitas Jr Age: 55 yrs Sex: Male : 1965 Arrival Date: 04/08/2020 Time: 15:51 Bed 5 Private MD: David Neely Diagnosis: Gastritis, unspecified;Sprain of other specified parts of left knee Presentation: 04/08 16:02 Chief complaint: Patient states: Upper abdominal pain x 2 - 3 days. Reports nausea. ca1 Denies V/D. Twisted R knee yesterday playing basketball. Coronavirus screen: Client denies travel out of the [place] in the last 14 days. nausea, Client presents with at least one sign or symptom that may indicate coronavirus-19. Standard/surgical mask placed on the client. Provider contacted for isolation considerations. Ebola Screen: Patient negative for fever greater than or equal to 101.5 degrees Fahrenheit, and additional compatible Ebola Virus Disease symptoms Patient denies exposure to infectious person. Patient denies travel to an Ebola-affected area in the 21 days before illness onset. No symptoms or risks identified at this time. Initial Sepsis Screen: Does the patient meet any 2 criteria? No. Patient's initial sepsis screen is negative. Does the patient have a suspected source of infection? No. Patient's initial sepsis screen is negative. Risk Assessment: Do you want to hurt yourself or someone else? Patient reports no desire to harm self or others. 16:02 Method Of Arrival: Ambulatory ca1 16:02 Acuity: COBY 3 ca1 16:02 Onset of symptoms was April 08, 2020. ca1 Historical: - Allergies: 16:06 No Known Allergies; ca1 - PMHx: 16:06 Gall Stones; history of dialysis; Hypertension; Pancreatitis; kidney transplant; ca1 - PSHx: 16:06 Cholecystectomy; Kidney Tranplant; ca1 - Immunization history:: Adult Immunizations up to date, Flu vaccine is up to date. - Social history:: Smoking status: Patient/guardian denies using tobacco, the patient reports quitting approximately 1 years ago. Screenin:03 Abuse screen: Denies threats or abuse. Nutritional screening: No deficits noted. ea Tuberculosis screening: No symptoms or risk factors identified. Fall Risk IV access (20 points). Assessment: 19:37 Reassessment: Seen Dr. Mandujano in triage at this time. ca1 20:40 General: Appears in no apparent distress. Behavior is calm, cooperative, appropriate ea for age. Pain: Complains of pain in abdomen and right knee. Neuro: Level of Consciousness is awake, alert, obeys commands, Oriented to person, place, time, situation. Cardiovascular: Patient's skin is warm and dry. Respiratory: Airway is patent Respiratory effort is even, unlabored, Respiratory pattern is regular, symmetrical. GI: Bowel sounds present X 4 quads. Abd is soft and non tender X 4 quads. Derm: Skin is intact, Skin is pink, warm \T\ dry. 21:02 Reassessment: Patient and/or family updated on plan of care and expected duration. Pain ea level reassessed. Patient is alert, oriented x 3, equal unlabored respirations, skin warm/dry/pink. 21:44 Reassessment: Patient and/or family updated on plan of care and expected duration. Pain ea level reassessed. Patient is alert, oriented x 3, equal unlabored respirations, skin warm/dry/pink. 21:49 Reassessment: Patient and/or family updated on plan of care and expected duration. Pain ea level reassessed. Patient is alert, oriented x 3, equal unlabored respirations, skin warm/dry/pink. Discharge instruction given to patient, verbalized the understanding of instruction. Family waiting in lobby to transport pt home, pt left ED ambulatory tolerating well. Vital Signs: 16:02 BP 158 / 101; Pulse 86; Resp 16 S; Temp 99.2(TE); Pulse Ox 98% on R/A; Weight 48.53 kg ca1 (R); Height 5 ft. 11 in. (180.34 cm) (R); Pain 8/10; 21:44 BP 142 / 62; Pulse 80; Resp 18; Pulse Ox 98% on R/A; ea 16:02 Body Mass Index 14.92 (48.53 kg, 180.34 cm) ca1 ED Course: 15:51 Patient arrived in ED. ag5 15:52 David Neely MD is Private Physician. ag5 16:05 Triage completed. ca1 16:06 Arm band placed on right wrist. ca1 19:40 Phoenix Mandujano MD is Attending Physician. tw4 19:55 Rivas, Anni, RN is Primary Nurse. ea 21:00 Inserted saline lock: 24 gauge in right forearm, using aseptic technique. Blood ea collected. per [facility] safety [facility]. 21:03 Patient has correct armband on for positive identification. Bed in low position. Call ea light in reach. Side rails up X 1. 21:28 David Neely MD is Referral Physician. tw4 21:33 Abdomen 1 View (KUB) XRAY In Process Unspecified. EDMS 21:34 XRAY Knee RIGHT 3 view In Process Unspecified. EDMS 21:48 IV discontinued, intact, bleeding controlled, No redness/swelling at site. Pressure ea dressing applied. 21:50 No provider procedures requiring assistance completed. ea Administered Medications: 20:34 Drug: GI Cocktail without - (Maalox Suspension 30 ml, Lidocaine Liquid 2 % 15 ea ml) Route: PO; 21:45 Follow up: Response: No adverse reaction ea 20:56 Not Given (Other Intervention Used): TORadol 60 mg IM once ea 21:05 Drug: Zofran (Ondansetron) 4 mg Route: IVP; Site: right forearm; ea 21:45 Follow up: Response: No adverse reaction ea 21:10 Drug: morphine 4 mg {Note: rass 0.} Route: IVP; Site: right forearm; ea 21:45 Follow up: Response: No adverse reaction ea Outcome: 21:29 Discharge ordered by . tw4 21:51 Discharged to home ambulatory, with family. ea 21:51 Condition: stable 21:51 Discharge instructions given to patient, Instructed on discharge instructions, follow up and referral plans. medication usage, Demonstrated understanding of instructions, follow-up care, medications, Prescriptions given X 3. 21:53 Patient left the ED. ea Signatures: Dispatcher [employer] EDAnni Taylor, RN Phoenix Tidwell ea, MD MD tw4 Rose Armando RN RN ca1 Gaskin, Ajare banner
[2020-04-08 21:58] VITALS: TEMP 99.2; O2SAT 98
[2020-04-08 21:59] VITALS: BP 142/62
--- NOTE | 2020-04-09 08:20 | RAD REPORT ---
EXAM DESCRIPTION: RAD - Abdomen 1 View (KUB) - 04/08/2020 9:33 pm CLINICAL HISTORY: ABD PAIN Pain COMPARISON: No comparisons FINDINGS: The bowel gas pattern is non-obstructive. No evidence of free air or pneumatosis. No suspi cious calcifications. No significant bony findings. Cholecystectomy clips. IMPRESSION: Negative examination.
--- NOTE | 2020-04-09 08:21 | RAD REPORT ---
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 Mild meniscal chondrocalcinosis. No acute fracture seen. No significant joint effusion. Consider MRI follow-up examination to evaluat e for internal derangement.
== END 2020-04-08 21:53 | disposition home or self-care (01) ==
LOC: ER 15:51
DX: S83.8X2A Sprain of other specified parts of left knee, initial encounter (principal); K29.70 Gastritis, unspecified, without bleeding; I10 Essential (primary) hypertension; X50.1XXA Overexertion from prolonged static or awkward postures, initial encounter; Y93.9 Activity, unspecified; Y92.009 Unspecified place in unspecified non-institutional (private) residence as the place of occurrence of the external cause; Z94.0 Kidney transplant status
CPT/HCPCS: 85025; 80048; 36415; 80076; 83690; 74018; 73562; J2405; 96374; 96375; 99284

== ENCOUNTER 2020-04-20 14:56 | Emergency (ER) | payer OTHER ==
--- OUTSIDE RECORDS SUMMARY | 2020-04-20 14:58 | XMS REPORT | Clinical Summary ---
:1965 Author Organization [facility] [address] [place] [address] Care Team Providers Name Role Phone Akin Green MD Primary Care Provider Allergies No Known Allergies Medications Not on file Active Problems Not on file Encounters Date Type Specialty Care Team Description 09/17/2019 Lab Requisition Lab after 04/20/2019 Family History Medical History Relation Name Comments [...] procedure are in the results section. after 04/20/2019 Results SARS-CoV2/RT-PCR ([facility]) (09/16/2019 9:40 PM CDT) SARS-COV2/RT-PCR Not Detected Not Detected, [facility] Negative [facility] SARS-COV-2 [facility] PERFORMING LAB [facility] Specimen Other - Nasopharyngeal wall structure (b sue structure) Narrative Performed At Negative results do not preclude SARS-CoV-2 [facility] infection and should not be used as [...] the Act. Fact Sheet for Healthcare Providers: https://www.Live[employer]id/Documents/Xpert%20Xpre ss%20SARS%20CoV-2/Fact%20Sheets/3023802%20SAR S-COV-2%20HEALTHCARE%20PROVIDERS%20FACT%20SHEE T.pdf Fact Sheet for Healthcare Patients: https://www.Live[employer]/Documents/Xpert%20Xpre ss%20SARS%20CoV-2/Fact%20Sheets/3023801%20SAR S-COV-2%20PATIENT%20FACT%20SHEET.pdf Performing Laboratory: [address] [place] [address] Performing Organization Address City/State/Zipcode Phone Number [address] [phone] CENTER after 04/20/2019 Insurance Payer Benefit Plan / Subscriber ID Effective Dates Phone Addre ss Type Group [employer] [id number] 2016-Prese MEDICARE MCD CARE nt
--- OUTSIDE RECORDS SUMMARY | 2020-04-20 14:58 | XMS REPORT | Clinical Summary ---
:1965 Author Organization [facility] Address [address] [place] [address] Care Team Providers Name Role Phone Satish [...] mariela sphorus metabolism, unspecified 07/04/2019 Travel after 04/20/2019 Surgical History Surgery Date Site/Laterality Comments TRANSPLANTATION RENAL 04/13/1997 - 04/12/1998 CHOLECYSTECTOMY, 01/16/2018 Abdomen/N/A Procedure: LAPA ROSCOPIC LAPAROSCOPIC CHOLECYSTECTOMY AND INTRAOPERATIVE CHOLANGIOGRAM; Surgeon: Cindy heard MD; Location: [facility] OR; Service: General ; Laterality: N/A; Medical [...] are i n the results section. after 04/20/2019 Results Urinalysis screen and microscopy, with reflex to culture (01/30/2020 7:52 AM CDT)Only the most recent of2 resultswithin the time period is included. Specimen site Clean catch [facility] Color, UA Yellow [facility] Appearance, UA Clear [facility] Specific gravity, UA 1.023 1.001 - 1.035 [facility] pH, UA 5.0 5.0 - 8.5 [facility] Protein, UA 3+ (A) Negative [facility] Glucose, UA Negative Negative [facility] Ketones, UA Negative Negative [facility] Bilirubin, UA Negative Negative [facility] Blood, UA Moderate (A) Negative [facility] Nitrite, UA Negative Negative [facility] Urobilinogen, UA <2.0 <2.0 [facility] Leukocyte esterase, Negative Negative [facility] Epithelial cells, UA <1 /HPF [facility] WBC, UA 1 0 - 1 /HPF [facility] RBC, UA 7 (H) 0 - 5 /HPF [facility] Bacteria, UA None seen None seen [facility] Yeast, UA None seen [facility] Yeast with None seen [facility] pseudohyphae, [facility] Specimen Urine Performing Organization Address [facility] Phon e Number [facility] AND [address] [place] [address] [address] Estimated GFR (01/30/2020 7:52 AM CDT)Only the most recent of2 resultswithin the time period is included. Estimated GFR 64 mL/min/1.73 [facility] Comment: HOSPITAL Catergory Units Interpretation G1 [...] published in 2014. Specimen Performing Organization Address City/[facility] Phon e Number [facility] AND [address] [place] [address] Cyclosporine level, random (01/30/2020 7:52 AM CDT)Only the most recent of2 resultswithin the time period is included. Cyclosporine 47 ng/mL [facility] Comment: HOSPITAL Unless administered by continuous IV drip, collect a p urple top tube just before the next dose. Therapeutic range of approximately 100-500 varies mainly with type of trans plant, use of other immunosuppressive agents, and evidence of toxicity or rejection. Test performed using [employer] chemiluminescent microparticle immunoassay for Cyclosporine on the [employer] i System. Specimen Blood Performing Organization Address [facility] Phon e Number [facility] AND [address] [place] [address] [address] Protein, urine, random (01/30/2020 7:52 AM CDT)Only the most recent of2 results within the time period is included. Pathologist Sig nature Protein, urine random 299 mg/dL [facility] Specimen Urine Performing Organization Address City/[facility] Phon e Number [facility] DE[facility]Y AND [address] [place], [place] [address] [facility] [address] [place] [address] Creatinine level, urine, random (01/30/2020 7:52 AM CDT)Only the most recent of 2 resultswithin the time period is included. Pathologist Sig nature Creatinine, urine, 200 mg/dL [facility] Specimen Urine Performing Organization Address [facility] Phon e Number [facility] DEPART[facility]OLOGY AND [address] [place], [place] [address] [facility] [address] [place] [address] CBC with platelet and differential (01/30/2020 7:52 AM CDT)Only the most recent of2 resultswithin the time period is included. WBC 7.55 4.50 - 11.00 [facility] k/uL HOSPITAL RBC 4.90 4.40 - 6.00 [facility] m/uL [facility] HGB 15.7 14.0 - 18.0 [facility]/dL [facility] HCT 46.5 41.0 - 51.0 % [facility] MCV 94.9 82.0 - 100.0 [facility] MCH 32.0 27.0 - 34.0 pg [facility] MCHC 33.8 31.0 - 37.0 [facility] - SD 41.5 37.0 - 55.0 fL [facility] MPV 9.2 8.8 - 13.2 fL [facility] Platelet count 284 150 - 400 k/uL [facility] Nucleated RBC 0.00 /100 WBC [facility] Neutrophils 56.9 39.0 - 69.0 % [facility] Lymphocytes 29.7 25.0 - 45.0 % [facility] Monocytes 9.3 0.0 - 10.0 % [facility] Eosinophils 2.9 0.0 - 5.0 % [facility] Basophils 0.9 0.0 - 1.0 % [facility] Immature granulocytes 0.3Comment: 0.0 - 1.0 % [facility] "Immature HOSPITAL granulocytes" (promyelocytes , myelocytes, metamyelocytes ) Specimen Blood Performing Organization Address [facility] Phon e Number [facility] AND [address] [place] [address] [place] [address] Urine culture (01/30/2020 7:52 AM CDT)Only the most recent of2 resultswithin the time period is included. Pathologist Sig nature Urine culture SEE COMMENTComment: [facility] Bacteriuria screen HOSPITAL negative. Specimen Performing Organization Address [facility] Phon e Number [facility] AND [address] [place] [address] [place] [address] Uric acid level (01/30/2020 7:52 AM CDT)Only the most recent of2 resultswithin the time period is included. Pathologist Sig nature Uric acid 8.4 (H) 3.4 - 7.0 mg/dL [facility] Specimen Blood Performing Organization Address [facility] Phon e Number [facility] AND [address] [place] [address] [address] [address] Phosphorus level (01/30/2020 7:52 AM CDT)Only the most recent of2 resultswithin the time period is included. Pathologist Sig nature Phosphorus 2.4 2.4 - 4.5 mg/dL [facility] Specimen Blood Performing Organization Address [facility] Phon e Number [facility] AND [address] [place] [address] [place] [address] Magnesium level (01/30/2020 7:52 AM CDT)Only the most recent of2 resultswithin the time period is included. Pathologist Sig nature Magnesium 2.1 1.6 - 2.6 mg/dL [facility] L Specimen Blood Performing Organization Address City/[facility] Phon e Number [facility] AND [address] [place] [address] [address] [address] LDH (01/30/2020 7:52 AM CDT)Only the most recent of2 resultswithin the time period is included. Pathologist Sig nature LDH 209 87 - 225 U/L [facility] Specimen Blood Performing Organization Address City/[facility] Phon e Number [facility] AND [address] [place] [address] [address] [address] Comprehensive metabolic panel (01/30/2020 7:52 AM CDT)Only the most recent of2 resultswithin the time period is included. Sodium 139 135 - 148 [facility] mEq/L [facility] Potassium 4.5 3.5 - 5.0 [facility] mEq/L [facility] Chloride 103 98 - 112 [facility] mEq/L [facility] CO2 23 (L) 24 - 31 mEq/L [facility] Anion gap 13@ANIO 7 - 15 mEq/L [facility] BUN 26 (H) 6 - 20 mg/dL [facility] Creatinine 1.42 (H) 0.70 - 1.20 [facility] mg/dL HOSPITAL Glucose 109 (H) 65 - 99 mg/dL [facility] Calcium 10.5 (H) 8.3 - 10.2 [facility] mg/dL [facility] Protein 8.0 6.3 - 8.3 [facility] Comment: g/dL HOSPITAL - 4.6-7.0 g/dL 1 week 4.4-7.6 g/dL 7 months-1year 5.1-7.3 g/dL 1-2 years 5.6-7.5 g/dL >3 years 6.0-8.0 g/dL 18-150 6.3-8.3 g/dL Albumin 3.6 3.5 - 5.0 [facility] g/dL HOSPITAL A/G ratio 0.8 0.7 - 3.8 [facility] Alkaline phosphatase 76 40 - 129 U/L [facility] AST 29 10 - 50 U/L [facility] ALT 36 5 - 50 U/L [facility] Total bilirubin 0.3 0.0 - 1.2 [facility] mg/dL HOSPITAL Specimen Blood Performing Organization Address [facility] Phon e Number [facility] AND [address] [place] [address] [address] [place] [address] after 04/20/2019 Insurance Payer Benefit Plan / Subscriber ID Effective Dates Phone Addre ss Type Group MEDICARE MEDICARE PART A [id number] 1993-Present [facility] [place], [place] Medicare AND B
--- OUTSIDE RECORDS SUMMARY | 2020-04-20 14:59 | XMS REPORT | Continuity of Care Document ---
:1965 Author Organization [facility] t Address [address] [place] [address] Care Team Providers Name Role Phone Peter LAVAREZ, Akin Primary Care Physician Félix SÁNCHEZ, D Attending Clinician Unavailable Only, Test Attending Clinician Unavailable Carole ALVAREZ, M. Attending Clinician Chase ALVAREZ Attending Clinician Payers Payer Name Policy Type Policy Effective Date Expiration Date Sour ce Number MEDICAREMEDICARE PART [id number] 1993 Victorino Arredondo AND 00:00:00 Amish [id number] 1993[place]IC[facility] [id number] 2016 ISA Donald [facility] CAREAMERIGROUP 00:00:00 - [facility] pamella [id number]/ [address]onna ter 16-Present Problems Condition Condition Condition Status Onset Resolution Last Treating Co mments Source Name Details Category Date Date Treatment Clinician Date Kidney Kidney Disease Active 2017-04 [place] transplant transplant 0-08 Me thodi recipient recipient 00:00: st 00 Right Right Disease Active 2017-04 [place] upper upper 0-08 Methodi quadrant quadrant 00:00: [...] Date Stop Date Source Natural father Hypertension [facility] Natural mother Heart disease [facility] Natural mother Hypertension [facility] Natural sister Diabetes [facility] Social History Social Habit Start Date Stop Date Quantity Comments Source Sex Assigned At [facility] ethodist Tobacco use and 2018-01-18 2018-01-18 Never used [facility] ethodist exposure 00:00:00 00:00:00 Alcohol intake 2018-01-18 2018-01-18 Current [facility] thodist 00:00:00 00:00:00 non-drinker of alcohol (finding) Tobacco Comment 2018-01-15 2018-01-15 "Quit 2-3 months Tiffany ston [facility]ish 00:00:00 00:00:00 ago" Smoking Status Start Date Stop Date Source Former smoker 2018-01-18 00:00:00 2018-01-18 00:00:00 [place] Amish Current some day 2016-03-26 00:00:00 [facility] Medications Ordered Filled Start Stop Current [...] thodist COMPREHENSIVE METABOLIC 2020-01-30 07:52:00 Juan Klein [facility]ish PANEL HC COMPLETE BLD COUNT 2020-01-30 07:52:00 Juan Klein [facility]ish W/AUTO DIFF MAGNESIUM LEVEL 2020-01-30 07:52:00 Juan Klein Me thodist PHOSPHORUS LEVEL 2020-01-30 07:52:00 Juan Klein M ethodist URIC ACID LEVEL 2020-01-30 07:52:00 Juna Klein Me thodist LDH 2020-01-30 07:52:00 Juan Klein Ks thodist URINALYSIS SCREEN AND 2020-01-30 07:52:00 Juan Klein [facility] MICROSCOPY, WITH REFLEX TO CULTURE CREATININE LEVEL, URINE, 2020-01-30 07:52:00 Juan Klein Amish RANDOM PROTEIN, URINE, RANDOM 2020-01-30 07:52:00 Juan Klein [facility]ish CYCLOSPORINE LEVEL, 2020-01-30 07:52:00 Juan Klein Amish RANDOM ESTIMATED GFR 2020-01-30 07:52:00 Juan Klein Me thodist SARS-COV2/RT-PCR ([facility] & 2019-09-16 21:40:00 [facility] HC COMPLETE BLD COUNT 2019-07-04 09:01:00 Jean Paul Fabian on [facility]ish W/AUTO DIFF MAGNESIUM LEVEL 2019-07-04 09:01:00 Jean Paul Fabian Met hodist PHOSPHORUS LEVEL 2019-07-04 09:01:00 Jean Paul Fabian Me thodist URIC ACID LEVEL 2019-07-04 09:01:00 Jean Paul Fabian Met hodist LDH 2019-07-04 09:01:00 Jean Paul Fabian Met hodist COMPREHENSIVE METABOLIC 2019-07-04 09:01:00 Jean Paul Fabian Amish PANEL CYCLOSPORINE LEVEL, 2019-07-04 09:01:00 Jean Paul Fabian Amish RANDOM ESTIMATED GFR 2019-07-04 09:01:00 Jean Paul Fabian Met hodist URINE CULTURE 2019-07-04 08:56:00 Jean Paul Fabian Met hodist URINALYSIS SCREEN AND 2019-07-04 08:56:00 Jean Paul Fabian on [facility]ish MICROSCOPY, WITH REFLEX TO CULTURE PROTEIN, URINE, RANDOM 2019-07-04 08:56:00 Jean Paul Fabian [facility]ish CREATININE LEVEL, URINE, 2019-07-04 08:56:00 Jean Paul Fabian Amish RANDOM Plan of Care Planned Activity Planned Date Details Comments Source Future Scheduled 2019-11-12 INFLUENZA VACCINE [place] [facility] 00:00:00 [code = INFLUENZA VACCINE] Future Scheduled 2016-02-28 COLONOSCOPY SCREENING [place] [facility] 00:00:00 [code = COLONOSCOPY SCREENING] Future Scheduled 2016-02-28 SHINGLES VACCINES [place] [facility] 00:00:00 (#1) [code = SHINGLES VACCINES (#1)] Future Scheduled 1982 COVID-19 VACCINE (#1) [place] [facility] 00:00:00 [code = COVID-19 VACCINE (#1)] Encounters Start End Encounter Admission Attending Care Care Encounter Source Date/Time Date/Time Type Type Clinicians Facility Department ID 2020-03-18 2020-03-18 Telephone WINSTON Heard [id number] 00:00:00 00:00:00 Gabriela TARIQ [id number] [facility] [id number] 2020-03-16 2020-03-16 Laboratory Only, [facility] [id number] 15:00:29 15:15:29 Only Test [place] [id number] [place] [id number] [place] [id number] 2020-01-30 2020-01-30 [facility] [id number] [place] 00:00:00 00:00:[address] 2020-01-23 2020-01-23 [facility] [id number] [place] 00:00:00 00:00:[address] 2020-01-09 2020-01-09 Outpatient [facility] [id number] [place] 00:00:00 00:00:[address] 2019-07-04 2019-07-04 Outpatient Usha FABIAN [facility] [id number] [place] 00:00:00 00:00:[address] Results Test Description Test Time Test Comments Results Result Comments Source Cyclosporine level, random 2020-01-30 11:30:53 Test Item Value Reference Range Interpretation Comme nts Cyclosporine (test code = 47 ng/mL Un less administered by continuous IV drip, 69227-1) collect a purpl e top tube just before the next dose. Ther apeutic range of approximately 1 00-500 varies mainly with type of transpl ant,use of other immunosuppressi ve agents, and evidence of toxicity or rej ection. Test performed using Exacter t chemiluminescen tmicroparticle immunoassay for Cyclosporin e on the [employer] i System. [place] MethodistComprehensive metabolic [id number] 09:50:08 Test Item Value Reference Range Interpretation Comments Sodium (test code = 139 135- 148 mEq/L 2951-2) Potassium (test code = 4.5 3.5- 5.0 mEq/L 2823-3) Chloride (test code = 103 98- 112 mEq/L 2075-0) CO2 (test code = 2027-9) 23 24- 31 mEq/L L Anion gap (test code = 13@ANIO 7- 15 mEq/L 47748-0) BUN (test code = 3094-0) 26 mg/dL 6-20 H Creatinine (test code = 1.42 mg/dL 0.7-1.2 H 2160-0) Glucose (test code = 109 mg/dL 65-99 H 2345-7) Calcium (test code = 10.5 mg/dL 8.3-10.2 H 25678-8) Protein (test code = 8.0 g/dL 6.3-8.3 -[place] n 2885-2) 4.6-7.0 g/dL1 week 4.4-7 .6 g/dL7 months-1y ear 5.1-7 .3 g/dL1-2 years 5.6-7 .5 g/dL>3 years 6.0-8 .0 g/jH83-843 6.3-8 .3 g/dL Albumin (test code = 3.6 g/dL 3.5-5 1751-7) A/G ratio (test code = 0.8 0.7-3.8 1759-0) Alkaline phosphatase 76 U/L 40-129 (test code = 6768-6) AST (test code = 1920-8) 29 U/L 10-50 ALT (test code = 1742-6) 36 U/L 5-50 Total bilirubin (test 0.3 mg/dL 0-1.2 code = 1974-2) Lab Interpretation (test Abnormal code = 09206-2) [place] [id number] 09:50:08 Test Item Value Reference Range Interpretation Comments LDH (test code = 66953-6) 209 U/L 87-225 [place] MethodistMagnesium [id number] 09:50:08 Test Item Value Reference Range Interpretation Comments Magnesium (test code = 27196-8) 2.1 mg/dL 1.6-2.6 [place] MethodistUric acid [id number] 09:50:08 Test Item Value Reference Range Interpretation Comments Uric acid (test code = 3084-1) 8.4 mg/dL 3.4-7 H Lab Interpretation (test code = Abnormal 06465-4) [place] MethodistEstimated [id number] 09:50:08 Test Item Value Reference Range Interpretation Comments Estimated GFR (test 64 mL/min/1.73 m2 [facility] Units code = 5488) InterpretationG 1 >=90 Normal or highG2 60-89 Mildly qlmhocqrcB3a 45-59 Mildly to mode rately ousimudtmT7i 30-44 Moderately to severely decreasedG4 15-29 Severely decre asedG5 <15 Kidn ey failureThe eGFR was calculated maryuri varela the Chronic Kidney Disease Epidemiology Co llaboration (CKD-EPI) equat ion. Interpretation is based on recommendations of the National Kidney Foundation-Kidn ey Disease Outcomes Qualit y Initiative (NKF-KDOQI) pub lished in 2014. [place] MethodistPhosphorus [id number] 09:50:04 Test Item Value Reference Range Interpretation Comments Phosphorus (test code = 2777-1) 2.4 mg/dL 2.4-4.5 [facility] MethodistProtein, urine, [id number] 09:01:38 Test Item Value Reference Range Interpretation Comments Protein, urine random (test code = 299 mg/dL 2888-6) [facility] MethodistUrinalysis screen and microscopy, with reflex to culture 2020-01-30 08:55:13 Test Item Value Reference Range Interpretation Comments Specimen site (test code = Clean catch 7082362) Color, UA (test code = 5778-6) Yellow Appearance, UA (test code = Clear 5767-9) Specific gravity, UA (test code = 1.023 1.001-1.035 5811-5) pH, UA (test code = 5803-2) 5.0 5.0-8.5 Protein, UA (test code = 48581-2) 3+ Negative A Glucose, UA (test code = 27490-5) Negative Negative Ketones, UA (test code = 2514-8) Negative Negative Bilirubin, UA (test code = Negative Negative 5770-3) Blood, UA (test code = 5794-3) Moderate Negative A Nitrite, UA (test code = 5802-4) Negative Negative Urobilinogen, UA (test code = <2.0 <2.0 21362-5) Leukocyte esterase, UA (test code Negative Negative = 5799-2) Epithelial cells, UA (test code = <1 /HPF 5787-7) WBC, UA (test code = 5821-4) 1 0- 1 /HPF RBC, UA (test code = 27777-6) 7 0- 5 /HPF H Bacteria, UA (test code = None seen None seen 16307-3) Yeast, UA (test code = 09777-4) None seen Yeast with pseudohyphae, UA (test None seen code = 86971-9) Lab Interpretation (test code = Abnormal 10126-6) [facility] MethodistCreatinine level, urine, [id number] 08:50:30 Test Item Value Reference Range Interpretation Comments Creatinine, urine, random (test 200 mg/dL code = 95555-2) [facility] JavieristUrine [id number] 08:34:03 Test Item Value Reference Range Interpretation Comments Urine culture (test SEE COMMENT Bacteriu deandre screen code = 2083501) negative. [place] MethodistCBC with platelet and [id number] 08:22:46 Test Item Value Reference Range Interpretation Comments WBC (test code = 7.55 4.50- 11.00 k/uL 39942-6) RBC (test code = 4.90 m/uL 4.4-6 73210-1) HGB (test code = 718-7) 15.7 g/dL 14-18 HCT (test code = 4544-3) 46.5 % 41-51 MCV (test code = 787-2) 94.9 fL 82-100 MCH (test code = 785-6) 32.0 pg 27-34 MCHC (test code = 786-4) 33.8 g/dL 31-37 RDW - SD (test code = 41.5 fL 37-55 37341-5) MPV (test code = 9.2 fL 8.8-13.2 45065-6) Platelet count (test 284 150- 400 k/uL code = 70475-3) Nucleated RBC (test code 0.00 /100 WBC = 21975-1) Neutrophils (test code = 56.9 % 39-69 57601-4) Lymphocytes (test code = 29.7 % 25-45 55476-6) Monocytes (test code = 9.3 % 0-10 34994-4) Eosinophils (test code = 2.9 % 0-5 45562-9) Basophils (test code = 0.9 % 0-1 10220-3) Immature granulocytes 0.3 % 0-1 "Immat ure (test code = 92707-4) granul ocytes" (promyelocytes, myelocytes, metamyelocytes) [facility])2019-09-17 04:32:00 Test Item Value Reference Range Interpretation Comments SARS-COV2/RT-PCR Not Detected Not Detected, (test code = Negative 21263-4) SARS-COV-2 [facility] PERFORMING LAB (test code = 14447-1) CATRACHO (test code = Negative results do [...] of the Act. Fact Sheet for Healthcare Providers:https://www.ControlCircle/Documents/Xper t%20Xpress%20SARS%20CoV- 2/Fact%20Sheets/302-3802 %42TCYC-JNV-5%20HEALTHCA RE%20PROVIDERS%20FACT%20 SHEET.pdf Fact Sheet for Healthcare Patients:https://www.Percentil/Documents/Xpert %20Xpress%20SARS%20CoV-2 /Fact%20Sheets/3023801% 29SQNT-DAM-4%20PATIENT%2 0FACT%20SHEET.pdf Performing Laboratory:[facility], [place] [address] [place], [place] [address]ARS-COV2/RT-PCR ([facility] REF [facility])2019-09-17 04:32:00 Test Item Value Reference Range Interpretation Comments SARS-COV2/RT-PCR (test Not Detected Not Detected, Negative code = 2303054) SARS-COV-2 PERFORMING LAB [facility] (test code = 6313406) Negative results do not preclude SARS-CoV-2 infection [...] of the Act.Fact Sheet for Healthcare Pro viders:https://www.Float: [place]/Documents/Xpert%20Xpress%20SARS%20CoV-2/Fact%20Sh eets/3023802%44TJCW-GBP-6%20HEALTHCARE%20PROVIDERS%20FACT%20SHEET.pdfFact Sheet for Healthcare Patients:https://www.[employer]/Documents/Xpert%20Xpress%20SARS%20CoV-2/Fact%20Sheets/3023801%20SARS-COV -2%20PATIENT%20FACT%20SHEET.pdfPerforming Laboratory:[facility] [place] [address]
[2020-04-20] MEDS ORDERED: HYDROCODONE/APAP 5/325 MG TAB ONE (20:53)
[2020-04-20 22:08] LABS: Absolute Lymphocytes (CBC) 2.2 K/uL (0.7-4.9); Basophils % 0.8 % (0-1.3); Hematocrit 36.6 % (39.6-49.0); Lymphocytes % 24.3 % (15.3-44.8); MPV 7.4 fL (7.6-11.3); RBC Red Blood Cell Count 3.96 M/uL (4.33-5.43)
[2020-04-20 22:26] LABS: Albumin 3.3 g/dL (3.4-5.0); Bilirubin Direct 0.1 mg/dL (0-0.2); Bilirubin Total 0.3 mg/dL (0.2-1.0); Potassium 4.1 mmol/L (3.5-5.1); Protein, Total 7.5 g/dL (6.4-8.2)
[2020-04-20 22:32] LABS: Urine Blood 2+ (NEG); Urine Glucose NEGATIVE (NEG); Urine Protein 3+ (NEG); Urine Specific Gravity >1.030 (1.005-1.030)
--- NOTE | 2020-04-20 22:49 | EDPHYS ---
Physician Documentation [facility] Name: Shoaib Freitas Jr Age: 55 yrs Sex: Male : 1965 Arrival Date: 04/20/2020 Time: 14:56 Bed 14 Private MD: SUNDAR Physician Cristi Lofton HPI: 04/20 21:00 This 55 yrs old Black Male presents to ER via Ambulatory with complaints of Leg mh7 Swelling, Leg Pain. 21:00 The patient presents with pain, that is acute, swelling. The complaints affect the mh7 right leg. Context: The problem was sustained at work, resulted from an unknown cause, the patient can fully bear weight, the patient is able to ambulate, with mild difficulty, Problem is a result from a previous injury: No. Onset: The symptoms/episode began/occurred 3 day(s) ago. Modifying factors: The symptoms are alleviated by nothing. the symptoms are aggravated by weight bearing. Associated signs and symptoms: Pertinent positives: calf tenderness, swelling, Pertinent negatives fever, nausea, numbness, rash, tingling, vomiting, weakness. Treatment prior to arrival includes: no previous treatment. Severity of symptoms: At their worst the symptoms were moderate, 2 day(s) ago, in the emergency department the symptoms are unchanged. 22:50 Pain started while just standing up at work. Denies any injuries or falls.. mh7 Historical: - Allergies: 15:24 No Known Allergies; ss - PMHx: 15:24 Gall Stones; history of dialysis; Hypertension; kidney transplant; Pancreatitis; ss - PSHx: 15:24 Cholecystectomy; Kidney Tranplant; ss - Immunization history:: Adult Immunizations up to date. - Social history:: Smoking status: Patient/guardian denies using tobacco, the patient reports quitting approximately 2 years ago. ROS: 21:00 Constitutional: Negative for fever, chills, and weight loss, Eyes: Negative for injury, mh7 pain, redness, and discharge, ENT: Negative for injury, pain, and discharge, Neck: Negative for injury, pain, and swelling, Cardiovascular: Negative for chest pain, palpitations, and edema, Respiratory: Negative for shortness of breath, cough, wheezing, and pleuritic chest pain, Abdomen/GI: Negative for abdominal pain, nausea, vomiting, diarrhea, and constipation, Back: Negative for injury and pain, : Negative for injury, bleeding, discharge, and swelling, Skin: Negative for injury, rash, and discoloration, Neuro: Negative for headache, weakness, numbness, tingling, and seizure, Psych: Negative for depression, anxiety, suicide ideation, homicidal ideation, and hallucinations, Allergy/Immunology: Negative for hives, rash, and allergies, Endocrine: Negative for neck swelling, polydipsia, polyuria, polyphagia, and marked weight changes, Hematologic/Lymphatic: Negative for swollen nodes, abnormal bleeding, and unusual bruising. Exam: 21:00 Constitutional: This is a well developed, well nourished patient who is awake, alert, mh7 and in no acute distress. Head/Face: Normocephalic, atraumatic. Eyes: Pupils equal round and reactive to light, extra-ocular motions intact. Lids and lashes normal. Conjunctiva and sclera are non-icteric and not injected. Cornea within normal limits. Periorbital areas with no swelling, redness, or edema. Neck: Trachea midline, no thyromegaly or masses palpated, and no cervical lymphadenopathy. Supple, full range of motion without nuchal rigidity, or vertebral point tenderness. No Meningismus. Chest/axilla: Normal chest wall appearance and motion. Nontender with no deformity. No lesions are appreciated. Cardiovascular: Regular rate and rhythm with a normal S1 and S2. No gallops, murmurs, or rubs. Normal PMI, no JVD. No pulse deficits. Respiratory: Lungs have equal breath sounds bilaterally, clear to auscultation and percussion. No rales, rhonchi or wheezes noted. No increased work of breathing, no retractions or nasal flaring. Abdomen/GI: Soft, non-tender, with normal bowel sounds. No distension or tympany. No guarding or rebound. No evidence of tenderness throughout. Back: No spinal tenderness. No costovertebral tenderness. Full range of motion. 21:00 Neuro: Awake and alert, GCS 15, oriented to person, place, time, and situation. Cranial nerves II-XII grossly intact. Motor strength 5/5 in all extremities. Sensory grossly intact. Cerebellar exam normal. Normal gait. Psych: Awake, alert, with orientation to person, place and time. Behavior, mood, and affect are within normal limits. 21:00 Musculoskeletal/extremity: Extremities: grossly normal except: noted in the right leg: swelling, tenderness, ROM: intact in all extremities, Circulation is intact in all extremities. Pulses: are normal with no appreciated deficits, Perfusion: the patient is normally perfused throughout, Perfusion: the extremity is normally perfused throughout, Calf tenderness, that is mild, of the right lower extremity, Edema, is not appreciated, Sensation intact. Compartment Syndrome exam of affected extremity: is normal. no numbness, no tingling, no sensation deficit, no palor, no weak pulses, Joints: All joints appear normal with full range of motion. Weight bearing: able to fully bear weight, without difficulty, Tendon exam: specific tendon testing normal through active and passive range of motion DVT Exam: negative Homans' sign noted on exam, no appreciated bluish discoloration, pain, that is mild, of the right leg, swelling, that is mild, of the right leg, tenderness, that is mild, of the right leg, erythema, that is mild, of the right leg, increased warmth, that is mild, of the right leg, Calves: are tender, on right, are not equal in size: right is larger than left, mild. 21:00 Skin: cellulitis, that is mild, well demarcated, on the right leg, induration, is not appreciated, no rash present. Vital Signs: 15:22 Resp 16; Weight 104.33 kg; Height 5 ft. 11 in. (180.34 cm); Pain 8/10; ss 15:25 BP 137 / 94; Pulse 90; Temp 98.8(TE); Pulse Ox 99% on R/A; ss 20:30 BP 156 / 94; Pulse 79; Resp 18; Pulse Ox 99% on R/A; zb 21:00 BP 137 / 85; Pulse 74; Resp 16; Pulse Ox 99% on R/A; zb 22:30 BP 135 / 86; Pulse 79; Resp 16; Pulse Ox 98% on R/A; zb 15:22 Body Mass Index 32.08 (104.33 kg, 180.34 cm) ss MDM: 22:45 Differential diagnosis: DVT, cellulitis. Data reviewed: vital signs, nurses notes, lab [facility] test result(s), CBC, electrolytes, urinalysis, radiologic studies, ultrasound. Data interpreted: Pulse oximetry: on room air is 99 %. Interpretation: normal. Counseling: I had a detailed discussion with the patient and/or guardian regarding: the historical points, exam findings, and any diagnostic results supporting the discharge/admit diagnosis, the presence of at least one elevated blood pressure reading (>120/80) during this emergency department visit, lab results, radiology results, the need for outpatient follow up, to return to the emergency department if symptoms worsen or persist or if there are any questions or concerns that arise at home. Response to treatment: the patient's symptoms have markedly improved after treatment. 22:49 Patient medically screened. [facility] 04/20 20:30 Order name: CBC with Diff; Complete Time: 22:12 [facility] 04/20 20:30 Order name: Basic Metabolic Panel; Complete Time: 22:37 [facility] 04/20 20:30 Order name: LFT's; Complete Time: 22:37 [facility] 04/20 20:30 Order name: CPK; Complete Time: 22:37 [facility] 04/20 20:30 Order name: Blood Culture Adult (2) [facility] 04/20 22:20 Order name: Urine Dipstick--Ancillary (enter results); Complete Time: 22:37 tt3 04/20 17:51 Order name: US Extremity Venous Unilateral Ltd kb 04/20 20:31 Order name: Saline Lock; Complete Time: 22:14 [facility] 04/20 20:31 Order name: Urine Dipstick-Ancillary (obtain specimen); Complete Time: 22:19 [facility] Administered Medications: 20:45 Drug: [place] 5 mg-325 mg 1 tabs Route: PO; 22:45 Not Given (Patient Refused): Clindamycin 600 mg IVPB once over 30 mins; (mix in 50 mL) [facility] 22:45 Drug: KeFLEX 500 mg Route: PO; 22:45 Follow up: Response: Medication administered at discharge. 22:46 Drug: Bactrim (160 mg-800 mg (DS) 1 tablet Route: PO; 22:46 Follow up: Response: Medication administered at discharge. zb Disposition: 04/20/20 22:49 Discharged to Home. Impression: Cellulitis-Right Lower Extremity. - Condition is Stable. - Discharge Instructions: Cellulitis, Adult, Xhag-el-Dccm. - Prescriptions for Keflex 500 mg Oral Capsule - take 1 capsule by ORAL route every 6 hours for 10 days; 40 capsule. Bactrim DS 800- 160 mg Oral Tablet - take 1 tablet by ORAL route every 12 hours for 10 days; 20 tablet. - Medication Reconciliation Form, Thank You Letter, Antibiotic Education, Prescription Opioid Use, Work release form form. - Follow up: Private Physician; When: 1 - 2 days; Reason: Worsening of condition, Recheck today's complaints, Continuance of care, Re-evaluation by your physician. - Problem is new. - Symptoms have improved. Signatures: Dispatcher [employer] EDMS Tere Powell, RN RN ss Edilia Dunlap Maurice, MD MD 7 Leslie Chase RN RN zb Corrections: (The following items were deleted from the chart) 23:07 22:49 04/20/2020 22:49 Discharged to Home. Impression: Cellulitis-Right Lower zb Extremity. Condition is Stable. Forms are Medication Reconciliation Form, Thank You Letter, Antibiotic Education, Prescription Opioid Use. Follow up: Private Physician; When: 1 - 2 days; Reason: Worsening of condition, Recheck today's complaints, Continuance of care, Re-evaluation by your physician. Problem is new. Symptoms have improved. mh7
--- NOTE | 2020-04-20 22:49 | ER ---
Nurse's Notes [facility] Name: Shoaib Freitas Jr Age: 55 yrs Sex: Male : 1965 Arrival Date: 04/20/2020 Time: 14:56 Bed 14 Private MD: Diagnosis: Cellulitis-Right Lower Extremity Presentation: 04/20 15:22 Chief complaint: Patient states: R leg swelling that began 3 days ago. Coronavirus ss screen: Client denies travel out of the [place] in the last 14 days. Ebola Screen: Patient denies exposure to infectious person. Patient denies travel to an Ebola-affected area in the 21 days before illness onset. Initial Sepsis Screen: Does the patient meet any 2 criteria? No. Patient's initial sepsis screen is negative. Does the patient have a suspected source of infection? No. Patient's initial sepsis screen is negative. Risk Assessment: Do you want to hurt yourself or someone else? Patient reports no desire to harm self or others. Onset of symptoms was April 17, 2020. 15:22 Method Of Arrival: Ambulatory ss 15:22 Acuity: COBY 3 ss Historical: - Allergies: 15:24 No Known Allergies; ss - PMHx: 15:24 Gall Stones; history of dialysis; Hypertension; kidney transplant; Pancreatitis; ss - PSHx: 15:24 Cholecystectomy; Kidney Tranplant; ss - Immunization history:: Adult Immunizations up to date. - Social history:: Smoking status: Patient/guardian denies using tobacco, the patient reports quitting approximately 2 years ago. Screenin:34 Abuse screen: Denies threats or abuse. Denies injuries from another. Nutritional zb screening: No deficits noted. Tuberculosis screening: No symptoms or risk factors identified. Fall Risk None identified. Assessment: 20:32 General: Appears in no apparent distress. comfortable, Behavior is calm, cooperative, zb appropriate for age. Pain: Complains of pain in lateral aspect of right calf, right calf, medial aspect of right calf and right macias Pain does not radiate. Pain currently is 10 out of 10 on a pain scale. Is continuous, Aggravated by increased activity, weight bearing. Neuro: Level of Consciousness is awake, alert, obeys commands, Oriented to person, place, time, situation. Cardiovascular: Patient's skin is warm and dry. Respiratory: Airway is patent Respiratory effort is even, unlabored, Respiratory pattern is regular, symmetrical, Breath sounds are clear bilaterally. GI: No signs and/or symptoms were reported involving the gastrointestinal system. : No signs and/or symptoms were reported regarding the genitourinary system. EENT: No signs and/or symptoms were reported regarding the EENT system. Derm: Skin is intact, is healthy with good turgor, Skin is dry, Skin is normal, RLE redness and swelling present. Musculoskeletal: Circulation, motion, and sensation intact. Capillary refill < 3 seconds, fingers. Range of motion: intact in all extremities, Swelling present in RLE Reports pain in RLE Denies. 21:30 Reassessment: Patient appears in no apparent distress at this time. Patient and/or zb family updated on plan of care and expected duration. Pain level reassessed. Patient is alert/active/playful, equal unlabored respirations, skin warm/dry/pink. pt resting quietly. no c/o at this time. pain decreased to 5/10. Patient states feeling better. Patient states symptoms have improved. 22:30 Reassessment: Patient appears in no apparent distress at this time. Patient and/or zb family updated on plan of care and expected duration. Pain level reassessed. Patient is alert/active/playful, equal unlabored respirations, skin warm/dry/pink. pt resting at this time. lights dimmed awating lab results. Vital Signs: 15:22 Resp 16; Weight 104.33 kg; Height 5 ft. 11 in. (180.34 cm); Pain 8/10; ss 15:25 BP 137 / 94; Pulse 90; Temp 98.8(TE); Pulse Ox 99% on R/A; ss 20:30 BP 156 / 94; Pulse 79; Resp 18; Pulse Ox 99% on R/A; zb 21:00 BP 137 / 85; Pulse 74; Resp 16; Pulse Ox 99% on R/A; zb 22:30 BP 135 / 86; Pulse 79; Resp 16; Pulse Ox 98% on R/A; zb 15:22 Body Mass Index 32.08 (104.33 kg, 180.34 cm) ED Course: 14:56 Patient arrived in ED. bp1 15:24 Triage completed. ss 15:24 Arm band placed on right wrist. ss 20:16 Cristi Lofton MD is Attending Physician. [facility] 20:23 Leslie Chase, PRINCESS is Primary Nurse. zb 20:35 Patient has correct armband on for positive identification. Bed in low position. Call zb light in reach. Side rails up X 1. Pulse ox on. NIBP on. Door closed. Noise minimized. 21:30 US Extremity Venous Unilateral Ltd In Process Unspecified. EDMS 22:00 Initial lab(s) drawn, by me, sent to lab. Inserted saline lock: 20 gauge in right rv antecubital area, using aseptic technique. Blood collected. 23:05 No provider procedures requiring assistance completed. IV discontinued, intact, zb bleeding controlled, No redness/swelling at site. Pressure dressing applied. Administered Medications: 20:45 Drug: [place] 5 mg-325 mg 1 tabs Route: PO; zb 22:45 Not Given (Patient Refused): Clindamycin 600 mg IVPB once over 30 mins; (mix in 50 mL) [facility] 22:45 Drug: KeFLEX 500 mg Route: PO; 22:45 Follow up: Response: Medication administered at discharge. zb 22:46 Drug: Bactrim (160 mg-800 mg (DS) 1 tablet Route: PO; 22:46 Follow up: Response: Medication administered at discharge. zb Outcome: 22:49 Discharge ordered by . [facility] 23:05 Discharged to home ambulatory. zb 23:05 Condition: stable 23:05 Discharge instructions given to patient, Instructed on discharge instructions, follow up and referral plans. medication usage, Demonstrated understanding of instructions, follow-up care, medications, Prescriptions given X 2. 23:07 Patient left the ED. zb Signatures: Dispatcher [employer] EDMA Tere Powell RN RN Edilia Dunlap Matthew Mejia RN RN Ashli Montenegro [facility] Cristi Lofton MD MD [facility] Leslie Chase RN RN z
[2020-04-20] MEDS ORDERED: CEPHALEXIN 250 MG CAP ONE (23:00)
[2020-04-20] MEDS ORDERED: SMZ./TMP. 800/160 MG TABLET ONE (23:00)
--- NOTE | 2020-04-21 14:14 | RAD REPORT ---
EXAM DESCRIPTION: US - Extremity Venous Uni Ltd - 04/20/2020 9:30 pm CLINICAL HISTORY: SWELLING, leg pain Preliminary findings provided at the time of the study. COMPARISON: None. TECHNIQUE: Real-time sonographic evaluation of the right lower extremity deep venous systems was per formed. FINDINGS: Normal compressibility, flow augmentation, phasic flow and spontaneous flow are identified in the right lower extremity common femoral, superficial femoral, popliteal and posterior tibial vei ns. No intraluminal filling defects seen. IMPRESSION: No DVT in the right lower extremity.
== END 2020-04-20 23:07 | disposition home or self-care (01) ==
LOC: ER 14:56
DX: L03.115 Cellulitis of right lower limb (principal)
CPT/HCPCS: 36415; 80048; 80076; 81003; 82550; 85025; 87040; 93971; 99284

== ENCOUNTER 2020-06-23 17:28 | Emergency (ER) | payer OTHER ==
--- OUTSIDE RECORDS SUMMARY | 2020-06-23 17:32 | XMS REPORT | Continuity of Care Document ---
:1965 Author Organization [facility] t Address [address] [place] [address] Care Team Providers Name Role Phone Peter ALVAREZ, Akin Primary Care Physician EMILY Attending Clinician Unavailable Sharla Heard RN Attending Clinician Unavailable Only, Test Attending Clinician Unavailable CAROLE Attending Clinician Unavailable CAREN Attending Clinician Unavailable Payers Payer Name Policy Type Policy Effective Date Expiration Date Sour ce Number [employer] [id number] 2016 [facility] [employer] 00:00:00 [id number] er 016-Present Problems This patient has no known problems. Allergies, Adverse Reactions, Alerts This patient has no known allergies or adverse reactions. Family History Family Member Diagnosis Comments Start Date Stop Date Source Natural father Hypertension [facility] Natural mother Heart disease [facility] Natural mother Hypertension [facility] Natural sister Diabetes [facility] Social History Social Habit Start Date Stop Date Quantity Comments Source Sex Assigned At [facility] Alcohol intake 2016-03-26 2016-03-[address] [facility] 00:00:00 00:00:00 non-drinker of Medical Ce nter alcohol (finding) Smoking Status Start Date Stop Date Source Current some day smoker 2016-03-26 00:00:00 [facility] Medications This patient has no known medications. Procedures Procedure Date / Time Performed Performing Clinician Sourc e SARS-COV2/RT-PCR ([facility] 2019-09-16 21:40:00 [facility] Encounters Start End Encounter Admission Attending Care Care Encounter Source Date/Time Date/Time Type Type Clinicians Facility Department ID 2020-06-06 2020-06-06 Outpatient EMILY [facility] [id number] [place] 00:00:00 00:00:00 PHILIPP [address] 2020-03-18 2020-03-18 Telephone WINSTON Heard [id number] 00:00:00 00:00:00 Gabriela TARIQ [id number] [facility] [id number] 2020-03-16 2020-03-16 Laboratory Only, [facility] [id number] 15:00:29 15:15:29 Only Test [place] [id number] [place] [id number] [place] [id number] 2020-01-30 2020-01-30 [facility] [id number] [place] 00:00:00 00:00:00 [facility]ERRI [address] 2020-01-23 2020-01-23 [facility] [id number] [place] 00:00:00 00:00:00 SHERRI [address] 2020-01-09 2020-01-09 [facility] [id number] [place] 00:00:00 00:00:00 SHERRI [address] 2019-07-04 2019-07-04 Outpatient Usha [facility]ABIAN [facility] [id number] [place] 00:00:00 00:00:[address] Results Test Description Test Time Test Comments Results Result Comments Source SARS-CoV2/RT-PCR ([facility] Ref Labs) 2019-09-17 04:32:00 Test Item Value Reference Range Interpretation Comme nts SARS-COV2/RT-PCR (test code = Not Detected Not Detected, Negative 14378-6) SARS-COV-2 PERFORMING LAB [facility] (test code = 26746-6) CATRACHO (test code = CATRACHO) Negative results [...] of the Act. Fact Sheet for Healthcare Providers:https://www.[employer]Documents/Xpert%20Xpress %20SARS%20CoV-2/Fact%20Sheets /302-3802%26ADRO-PRK-9%20HEAL THCARE%20PROVIDERS%20FACT%20S HEET.pdf Fact Sheet for Healthcare Patients:https://www.[employer]/Documents/Xpert%20Xpress% 20SARS%20CoV-2/Fact%20Sheets/ 302-3801%92MZWU-PBP-2%20PATIE NT%20FACT%20SHEET.pdf Performing Laboratory:[facility], [place] [address] [place], [place] [address]ARS-COV2/RT-PCR ([facility])2019-09-17 04:32:00 Test Item Value Reference Range Interpretation Comments SARS-COV2/RT-PCR (test Not Detected Not Detected, Negative code = 6058368) SARS-COV-2 PERFORMING LAB [facility] (test code = 9566275) Negative results do not preclude SARS-CoV-2 infection [...] of the Act.Fact Sheet for Healthcare Pro viders:https://www.[employer]/Documents/Xpert%20Xpress%20SARS%20CoV-2/Fact%20Sh eets/3023802%92FKGO-BKT-0%20HEALTHCARE%20PROVIDERS%20FACT%20SHEET.pdfFact Sheet for Healthcare Patients:https://www.[employer]/Documents/Xpert%20Xpress%20SARS%20CoV-2/Fact%20Sheets/3023801%20SARS-COV -2%20PATIENT%20FACT%20SHEET.pdfPerforming Laboratory:[facility] [place] [address]
[2020-06-23 19:37] LABS: Urine Bacteria <20 /HPF (NONE SEEN)
[2020-06-23 19:38] LABS: Urine Blood 2+ (NEG); Urine Glucose NEGATIVE (NEG); Urine Protein 3+ (NEG); Urine Specific Gravity >1.030 (1.005-1.030); Urine pH 5.5 (5.0-7.0)
--- NOTE | 2020-06-23 19:38 | RAD REPORT ---
EXAM DESCRIPTION: RAD - Chest Single View - 06/23/2020 6:53 pm CLINICAL HISTORY: lower extremity edema Chest pain. COMPARISON: Abdomen 1 View (KUB) dated 04/08/2020; Chest Single View dated 01/08/2020; Chest Single V iew dated 09/09/2019; Chest Single View dated 06/24/2019 FINDINGS: Portable technique limits examination quality. Mild interstitial pulmonary edema noted. The heart is moderately enlarged in size. No displaced fract ures. IMPRESSION: Mild CHF.
[2020-06-23] MEDS ORDERED: ONDANSETRON 4 MG/2 ML VIAL ONE (19:44)
[2020-06-23] MEDS ORDERED: MORPHINE 4 MG/ML SYR ONE (19:44)
[2020-06-23] MEDS ORDERED: NA CHLORIDE 0.9% 500 ML ONE (19:44)
--- NOTE | 2020-06-23 19:55 | RAD REPORT ---
EXAM DESCRIPTION: CT - Stone Protocol - 06/23/2020 7:46 pm CLINICAL HISTORY: Flank pain. left flank pain COMPARISON: <Comparisons> TECHNIQUE: Axial images were obtained without oral or IV contrast. Lack of contrast limits solid org an and vascular assessment. The adkki-hn-svit spans the entirety of the system partially obscuring uppermost abdomen and lung bases. Coronal reformatted images were obtained and reviewed. All CT scans are performed using dose optimization technique as appropriate and may include automated exposure control or mA/KV adjustment according to patient size. FINDINGS: The lower lung billings[place] are clear. Cholecystectomy clips. Imaged portions of the liver and spleen show no suspicious findings on non-contrast imaging. The panc reas and adrenal glands are normal. No pathologic lymphadenopathy in the abdomen or pelvis. Left lower quadrant transplant kidney is noted without significant abnormality. Both [place] kidneys a re markedly atrophic. No bowel obstruction, free air, free fluid or abscess. Normal appendix noted.Small fat containing rig ht inguinal hernia. No significant bony abnormality. IMPRESSION: No acute abnormality is suspected.
[2020-06-23 20:09] LABS: ALT/SGPT 41 U/L (12-78); AST/SGOT 27 U/L (15-37); Albumin 3.1 g/dL (3.4-5.0); Alkaline Phosphatase 85 U/L (45-117); BUN Blood Urea Nitrogen 19 mg/dL (7-18); Bicarbonate 26 mmol/L (21-32); Bilirubin Direct < 0.1 mg/dL (0-0.2); Bilirubin Total 0.2 mg/dL (0.2-1.0); Glucose Level 103 mg/dL (74-106); Magnesium 2.1 mg/dL (1.8-2.4); NT PRO-BNP 243 pg/mL (<125); Potassium 4.2 mmol/L (3.5-5.1); Protein, Total 6.8 g/dL (6.4-8.2); Sodium Level 141 mmol/L (136-145); Troponin (Emerg Dept Use Only) < 0.02 ng/mL (0.0-0.045)
--- NOTE | 2020-06-23 20:24 | RAD REPORT ---
EXAM DESCRIPTION: US - Extrem Venous W Compress Last - 06/23/2020 8:11 pm CLINICAL HISTORY: SWELLING Bilateral leg edema and swelling. COMPARISON: Extremity Venous Uni Ltd dated 04/20/2020 TECHNIQUE: Real-time sonographic interrogation of the left and right lower extremity deep venous sys tems was performed. FINDINGS: No evidence right lower extremity deep venous thrombosis. There is thrombus present in the left popliteal vein. Elsewhere on the left no additional DVT seen. IMPRESSION: Positive for left popliteal vein DVT.
[2020-06-23 20:41] LABS: Absolute Lymphocytes (CBC) 2.5 K/uL (0.7-4.9); Basophils % 0.9 % (0-1.3); Hematocrit 37.7 % (39.6-49.0); RBC Red Blood Cell Count 3.98 M/uL (4.33-5.43)
[2020-06-23 20:53] LABS: Protime INR 0.89
[2020-06-23] MEDS ORDERED: FUROSEMIDE 20 MG/ 2ML VIAL ONE (21:09)
--- NOTE | 2020-06-23 21:17 | EDPHYS ---
Physician Documentation [facility] Name: Shoaib Freitas Jr Age: 55 yrs Sex: Male : 1965 Arrival Date: 06/23/2020 Time: 17:32 Bed 26 Private MD: ED Physician Sebas Stephenson HPI: 06/23 18:45 This 55 yrs old Black Male presents to ER via Ambulatory with complaints of Swelling. cp 18:45 Patient c/o general swelling of face, hands and lower extremities. Patient reports pain cp to left lower extremity and left flank area. 18:45 Onset: The symptoms/episode began/occurred 1 week(s) ago. cp 18:45 Severity of symptoms: in the emergency department the symptoms are unchanged despite cp home interventions. Historical: - Allergies: 17:57 No Known Allergies; ll1 - PMHx: 17:57 Gall Stones; history of dialysis; Hypertension; kidney transplant; Pancreatitis; ll1 - PSHx: 17:57 Cholecystectomy; Kidney Tranplant; ll1 - Immunization history:: Flu vaccine is not up to date. - Social history:: Smoking status: Patient reports the use of cigarette tobacco products, denies chronic smoking, but will smoke occasionally. ROS: 18:50 Constitutional: Negative for body aches, chills, fever, poor PO intake. cp 18:50 Eyes: Negative for injury, pain, redness, and discharge. cp 18:50 Neck: Negative for pain with movement, pain at rest, stiffness. 18:50 Cardiovascular: Positive for edema, Negative for chest pain, palpitations. 18:50 Respiratory: Negative for cough, dyspnea on exertion, shortness of breath, wheezing. 18:50 Abdomen/GI: Negative for nausea, vomiting, and diarrhea, constipation, black/tarry stool, rectal bleeding. 18:50 Back: Positive for flank pain, on the left. 18:50 : Negative for urinary symptoms. 18:50 Skin: Negative for rash. 18:50 Neuro: Negative for altered mental status, dizziness, headache, syncope, weakness. 18:50 All other systems are negative. Exam: 18:55 Constitutional: The patient appears in no acute distress, alert, awake, cp non-diaphoretic, non-toxic, well developed, well nourished. 18:55 Head/Face: Normocephalic, atraumatic. cp 18:55 Eyes: Periorbital structures: appear normal, Conjunctiva: normal, no exudate, no injection, Sclera: no appreciated abnormality, Lids and lashes: appear normal, bilaterally. 18:55 ENT: External ear(s): are unremarkable, Nose: is normal, Mouth: Lips: moist, Oral mucosa: moist, Posterior pharynx: Airway: no evidence of obstruction, patent. 18:55 Neck: ROM/movement: is normal, is supple, without pain, no range of motions limitations. 18:55 Chest/axilla: Inspection: normal, Palpation: is normal, no crepitus, no tenderness. 18:55 Cardiovascular: Rate: normal, Rhythm: regular, Edema: ankle edema, that is mild, JVD: is not appreciated. 18:55 Respiratory: the patient does not display signs of respiratory distress, Respirations: normal, no use of accessory muscles, no retractions, labored breathing, is not present, Breath sounds: are clear throughout, no decreased breath sounds, no stridor, no wheezing. 18:55 Abdomen/GI: Inspection: obese Bowel sounds: active, all quadrants, Palpation: soft, in all quadrants, moderate abdominal tenderness, in the anterior aspect of left lateral abdomen and posterior aspect of left lateral abdomen, rebound tenderness, is not appreciated, voluntary guarding, is not appreciated, involuntary guarding, is not appreciated. 18:55 Back: vertebral tenderness, is not appreciated. 18:55 Musculoskeletal/extremity: DVT Exam: swelling, that is mild, of the right leg, of the left leg, tenderness, that is mild, of the left leg. 18:55 Skin: cellulitis, is not appreciated, no rash present. 19:20 ECG was reviewed by the Attending Physician. cp Vital Signs: 17:55 BP 157 / 97; Pulse 81; Resp 17; Temp 98.5; Pulse Ox 99% ; Weight 106.59 kg; Height 5 ll1 ft. 11 in. (180.34 cm); Pain 8/10; 18:44 BP 143 / 94; Pulse 79; Resp 18; Pulse Ox 98% on R/A; vg1 20:17 BP 138 / 86; Pulse 71; Resp 20; Pulse Ox 98% on R/A; vg1 21:00 BP 152 / 90; Pulse 78; Resp 20; Pulse Ox 100% on R/A; vg1 17:55 Body Mass Index 32.78 (106.59 kg, 180.34 cm) ll1 MDM: 18:35 Patient medically screened. cp 21:15 Data reviewed: vital signs, nurses notes, lab test result(s), EKG, radiologic studies, cp CT scan, plain films, ultrasound, I have discussed the patient's presentation/case with the attending Emergency Department Physician; and as a result, I will discharge patient. 21:15 Differential diagnosis: URI, bronchitis, pneumonia UTI, DVT pulmonary embolism, CHF, cp dependent edema. Test interpretation: by ED physician or midlevel provider: ECG, plain radiologic studies. 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 Response to treatment: VSS. Symptoms improved. Patient w/o signs of respiratory distress, oxygen sats 98-100% on room air, and as a result, I will discharge patient. 06/23 18:40 Order name: Basic Metabolic Panel cp 03 18:40 Order name: CBC with Diff cp 06/23 18:40 Order name: LFT's cp 06/23 18:40 Order name: Magnesium cp 06/23 18:40 Order name: NT PRO-BNP; Complete Time: 20:13 cp 06/23 18:40 Order name: PT-INR cp 06/23 18:40 Order name: US Extremity Venous W Compression Last cp 06/23 18:40 Order name: Troponin (emerg Dept Use Only); Complete Time: 20:13 cp 06/23 18:40 Order name: Urine Microscopic Only; Complete Time: 20:09 cp 06/23 20:40 Interpretation: Normal except: URBC 5-10. cp 06/23 18:40 Order name: Basic Metabolic Panel; Complete Time: 20:13 EDMS 06/23 20:13 Interpretation: Normal except: CL 111; BUN 19; CRE 1.34; GFR 67. cp 06/23 18:40 Order name: CBC with Automated Diff; Complete Time: 20:52 EDMS 06/23 18:40 Order name: Liver (Hepatic) Function; Complete Time: 20:13 EDMS 06/23 20:14 Interpretation: Normal except: ALB 3.1; GLOB 3.7; A/G 0.8. cp 06/23 18:40 Order name: Magnesium; Complete Time: 20:13 EDMS 06/23 19:25 Order name: Urine Dipstick--Ancillary (enter results); Complete Time: 20:09 mw2 06/23 18:40 Order name: XRAY Chest (1 view); Complete Time: 20:09 cp 06/23 18:40 Order name: EKG; Complete Time: 18:40 cp 06/23 18:40 Order name: Cardiac monitoring; Complete Time: 19:25 cp 06/23 18:40 Order name: EKG - Nurse/Tech; Complete Time: 19:25 cp 06/23 18:40 Order name: IV Saline Lock; Complete Time: 21:21 cp 06/23 18:40 Order name: Labs collected and sent; Complete Time: 21:21 cp 06/23 18:40 Order name: O2 Per Protocol; Complete Time: 18:42 cp 06/23 18:40 Order name: O2 Sat Monitoring; Complete Time: 18:42 cp 06/23 18:40 Order name: Urine Dipstick-Ancillary (obtain specimen); Complete Time: 19:25 cp 06/23 18:40 Order name: CT Stone Protocol; Complete Time: 20:09 cp 06/23 20:25 Order name: US; Complete Time: 20:39 EDMS 06/23 20:40 Interpretation: Report reviewed. 06/23 19:58 Order name: Labs - recollect needed: cbc, blue top; Complete Time: 20:52 mw2 EC:20 Rate is 75 beats/min. Rhythm is regular. CA interval is normal. QRS interval is normal. cp QT interval is normal. T waves are Inverted in lead aVR. Interpreted by me. Reviewed by me. Administered Medications: 21:01 Not Given (Per provider): NS 0.9% 500 ml IV at bolus once vg1 21:01 Drug: Lasix 20 mg Route: IVP; Site: right antecubital; vg1 21:31 Follow up: Response: No adverse reaction vg1 21:02 Drug: morphine 4 mg Route: IVP; Site: right antecubital; vg1 21:30 Follow up: Response: No adverse reaction; Pain is decreased vg1 21:02 Drug: Zofran (Ondansetron) 4 mg Route: IVP; Site: right antecubital; vg1 21:31 Follow up: Response: No adverse reaction vg1 21:31 Drug: Xarelto 15 mg Route: PO; vg1 :31 Follow up: Response: Medication administered at discharge. 1 Disposition: 22:26 Co-signature as Attending Physician, Sebas Stephenson MD. rn Disposition: 06/23/20 21:17 Discharged to Home. Impression: Edema, not elsewhere classified, Acute embolism and thrombosis of unspecified deep veins of lower extremity - left. - Condition is Stable. - Discharge Instructions: Deep Vein Thrombosis, Cooking with Less Salt, Peripheral Edema. - Prescriptions for Xarelto 15 mg Oral Tablet - take 1 tablet by ORAL route 2 times per day for 21 days; 41 tablet. - Medication Reconciliation Form, Thank You Letter, Antibiotic Education, Prescription Opioid Use form. - Follow up: Private Physician; When: 2 - 3 days; Reason: Recheck today's complaints. - Problem is new. - Symptoms have improved. Signatures: Dispatcher [employer] EDMS Sebas Stephenson MD MD rn Vidal Dejesus PA PA cp David Weinberg mw2 Ammy Heard RN RN vg1 Paxton Ruiz RN RN ll1 Corrections: (The following items were deleted from the chart) 21:53 21:17 06/23/2020 21:17 Discharged to Home. Impression: Edema, not elsewhere classified; vg1 Acute embolism and thrombosis of unspecified deep veins of lower extremity - left. Condition is Stable. Forms are Medication Reconciliation Form, Thank You Letter, Antibiotic Education, Prescription Opioid Use. Follow up: Private Physician; When: 2 - 3 days; Reason: Recheck today's complaints. Problem is new. Symptoms have improved. cp
--- NOTE | 2020-06-23 21:17 | ER ---
Nurse's Notes [facility] Name: Shoaib Freitas Jr Age: 55 yrs Sex: Male : 1965 Arrival Date: 06/23/2020 Time: 17:32 Bed 26 Private MD: Diagnosis: Edema, not elsewhere classified;Acute embolism and thrombosis of unspecified deep veins of lower extremity-left Presentation: 06/23 17:55 Chief complaint: Patient states: L leg, both arms, and facial swelling for over a week. ll1 SOB sometimes. Coronavirus screen: Client denies travel out of the [place] in the last 14 days. At this time, the client does not indicate any symptoms associated with coronavirus-19. Ebola Screen: Patient denies travel to an Ebola-affected area in the 21 days before illness onset. Initial Sepsis Screen: Does the patient meet any 2 criteria? No. Patient's initial sepsis screen is negative. Does the patient have a suspected source of infection? Yes: Other: swelling all over. Risk Assessment: Do you want to hurt yourself or someone else? Patient reports no desire to harm self or others. Onset of symptoms was June 17, 2020. 17:55 Method Of Arrival: Ambulatory ll1 17:55 Acuity: COBY 3 ll1 Historical: - Allergies: 17:57 No Known Allergies; ll1 - PMHx: 17:57 Gall Stones; history of dialysis; Hypertension; kidney transplant; Pancreatitis; ll1 - PSHx: 17:57 Cholecystectomy; Kidney Tranplant; ll1 - Immunization history:: Flu vaccine is not up to date. - Social history:: Smoking status: Patient reports the use of cigarette tobacco products, denies chronic smoking, but will smoke occasionally. Screenin:44 Abuse screen: Denies threats or abuse. Nutritional screening: No deficits noted. vg1 Tuberculosis screening: No symptoms or risk factors identified. Fall Risk No fall in past 12 months (0 pts). No secondary diagnosis (0 pts). IV access (20 points). Ambulatory Aid- None/Bed Rest/Nurse Assist (0 pts). Gait- Normal/Bed Rest/Wheelchair (0 pts) Mental Status- Oriented to own ability (0 pts). Total Pacheco Fall Scale indicates No Risk (0-24 pts). Assessment: 18:42 General: Appears in no apparent distress. comfortable, Behavior is calm, cooperative. vg1 Pain: Complains of pain in left upper quadrant Pain currently is 8 out of 10 on a pain scale. Neuro: Level of Consciousness is awake, alert, obeys commands, Oriented to person, place, time, situation. Cardiovascular: Heart tones S1 S2 Patient's skin is warm and dry. Cardiovascular: swelling in OJ hands and OJ lower extremities. Respiratory: Airway is patent Respiratory effort is even, unlabored, Breath sounds are clear bilaterally. GI: Reports diarrhea, Patient currently denies nausea, vomiting. GI: Abdomen is distended, Bowel sounds hypoactive in right upper quadrant, left upper quadrant, right lower quadrant and left lower quadrant. : No signs and/or symptoms were reported regarding the genitourinary system. EENT: No signs and/or symptoms were reported regarding the EENT system. Derm: Skin is intact, Skin is pink, warm \T\ dry. Musculoskeletal: Circulation, motion, and sensation intact. 20:17 Reassessment: Patient appears in no apparent distress at this time. No changes from vg1 previously documented assessment. Patient and/or family updated on plan of care and expected duration. Pain level reassessed. Patient is alert, oriented x 3, equal unlabored respirations, skin warm/dry/pink. 21:52 Reassessment: Patient appears in no apparent distress at this time. Patient and/or vg1 family updated on plan of care and expected duration. Pain level reassessed. Patient is alert, oriented x 3, equal unlabored respirations, skin warm/dry/pink. Vital Signs: 17:55 BP 157 / 97; Pulse 81; Resp 17; Temp 98.5; Pulse Ox 99% ; Weight 106.59 kg; Height 5 ll1 ft. 11 in. (180.34 cm); Pain 8/10; 18:44 BP 143 / 94; Pulse 79; Resp 18; Pulse Ox 98% on R/A; vg1 20:17 BP 138 / 86; Pulse 71; Resp 20; Pulse Ox 98% on R/A; vg1 21:00 BP 152 / 90; Pulse 78; Resp 20; Pulse Ox 100% on R/A; vg1 17:55 Body Mass Index 32.78 (106.59 kg, 180.34 cm) ll1 ED Course: 17:32 Patient arrived in ED. mr 17:56 Triage completed. ll1 17:57 Arm band placed on. ll1 18:23 Vidal Dejesus PA is PHCP. cp 18:23 Phoenix Mandujano MD is Attending Physician. cp 18:30 Ammy Heard, RN is Primary Nurse. vg1 18:45 Patient has correct armband on for positive identification. Bed in low position. Call vg1 light in reach. Side rails up X 1. 18:52 XRAY Chest (1 view) In Process Unspecified. EDMS 19:46 CT Stone Protocol In Process Unspecified. EDMS 20:10 Sebas Stephenson MD is Attending Physician. cp 20:12 Ultrasound completed. Patient tolerated well. Notified DEMO COORDINATOR/PA page. sg3 20:50 Inserted saline lock: 18 gauge antecubital area, using aseptic technique. oe 21:53 No provider procedures requiring assistance completed. IV discontinued, intact, vg1 bleeding controlled, No redness/swelling at site. Pressure dressing applied. Administered Medications: 21:01 Not Given (Per provider): NS 0.9% 500 ml IV at bolus once vg1 21:01 Drug: Lasix 20 mg Route: IVP; Site: right antecubital; vg1 21:31 Follow up: Response: No adverse reaction vg1 21:02 Drug: morphine 4 mg Route: IVP; Site: right antecubital; vg1 21:30 Follow up: Response: No adverse reaction; Pain is decreased vg1 21:02 Drug: Zofran (Ondansetron) 4 mg Route: IVP; Site: right antecubital; vg1 21:31 Follow up: Response: No adverse reaction vg1 21:31 Drug: Xarelto 15 mg Route: PO; vg1 21:31 Follow up: Response: Medication administered at discharge. vg1 Outcome: 21:17 Discharge ordered by . cp 21:53 Discharged to home ambulatory. vg1 21:53 Condition: stable 21:53 Discharge instructions given to patient, Instructed on discharge instructions, follow up and referral plans. medication usage, Demonstrated understanding of instructions, follow-up care, medications, Prescriptions given X 1. 21:53 Patient left the ED. vg1 Signatures: Dispatcher [employer] [facility] Eufemia Pires mr Vidal Dejesus PA PA cp Layo Hall oe Tracy Christensen sg3 Ammy Heard, RN RN vg1 Paxton Ruiz, RN RN ll1
[2020-06-23] MEDS ORDERED: RIVAROXABAN 10 MG TABLET ONE (21:41)
[2020-06-23 22:36] VITALS: TEMP 98.5
[2020-06-23 22:39] VITALS: BP 152/90; O2SAT 100
--- NOTE | 2020-06-24 10:22 | EKG ---
Test Date: 2020-06-23 Test Time: 19:13:23 [employer] Rn: ADAM MEASUREMENT RESULTS: Intervals: Rate: 75 MI: 154 QRSD: 100 QT: 388 QTc: 433 [place]: P: 40 MI: 154 QRS: 4 T: 42 INTERPRETIVE STATEMENTS: Normal sinus rhythm Normal ECG Compared to ECG 01/09/2020 00:55:40 Left ventricular hypertrophy no longer present Myocardial infarct finding no longer present Electronically Signed On 06-24-20 10:21:23 CDT by Sundar Roa
== END 2020-06-23 21:53 | disposition home or self-care (01) ==
LOC: ER 17:28
DX: I82.4Z2 Acute embolism and thrombosis of unspecified deep veins of left distal lower extremity (principal); I10 Essential (primary) hypertension; F17.210 Nicotine dependence, cigarettes, uncomplicated; Z94.0 Kidney transplant status
CPT/HCPCS: 93005; 85025; 80048; 36415; 83735; 85610; 80076; 84484; 83880; 76377; 74176; 71045; 93970; J1940; J7040; J2405; 81003; 81015; 96374; 96375; 99284

== ENCOUNTER 2020-08-26 08:02 | Emergency (ER) | payer OTHER ==
--- OUTSIDE RECORDS SUMMARY | 2020-08-26 08:06 | XMS REPORT | Continuity of Care Document ---
:1965 Author Organization [facility] t Address [address] [place] [address] Dr. Ng [address] [place] [address] Care Team Providers Name Role Phone Akin Green MD Primary Care Physician Satish Perdomo MD Attending Clinician Félix RN, D Attending Clinician Unavailable Only, Test Attending Clinician Unavailable Carole ALVAREZ, MGeorgina Attending Clinician CAREN Attending Clinician Unavailable Payers Payer Name Policy Policy Effective Expiration Source Type Number Date Date MEDICAREMEDICARE PART A [id number] 1993 Lori azul AND 2 00:00:00 [facility] [id number] [place] [place] [id number] 2016 [facility] MEDICAREAMERIVANTAGE 00:00:00 - Me dical [id number] Center 16-Present Problems Condition Condition Condition Status Onset Resolution Last Treating Co mments Source Name Details Category Date Date Treatment Clinician Date Kidney Kidney Disease Active 2017-04 [place] transplant transplant 0-08 Me thodi recipient recipient 00:00: st 00 Right Right Disease Active 2017-04 [place] upper upper 0-08 Methodi quadrant quadrant 00:00: [...] Date Stop Date Source Natural father Hypertension [facility] Natural mother Heart disease [facility] Natural mother Hypertension [facility] Natural sister Diabetes [facility] Social History Social Habit Start Date Stop Date Quantity Comments Source Exposure to Not sure [place] Metho dist SARS-CoV-2 (event) Tobacco use and 2018-01-18 2018-01-18 Never used [facility] ethodist exposure 00:00:00 00:00:00 Alcohol intake 2018-01-18 2018-01-18 Current [facility] thodist 00:00:00 00:00:00 non-drinker of alcohol (finding) Tobacco Comment 2018-01-15 2018-01-15 "Quit 2-3 months Tiffany ston [facility] 00:00:00 00:00:00 ago" Sex [birth year] [facility] ethodist 00:00:00 00:00:00 Smoking Status Start Date Stop Date Source Former smoker 2018-01-18 00:00:00 2018-01-18 00:00:00 [place] [facility] Current some day 2016-03-26 00:00:00 [facility] Center Medications Ordered Filled Start [...] 37 (two) tablet times a day. valsartan 2017- Yes 40mg QD Take 40 mg Victorino stinson (DIOVAN) 40 0-09 by mouth Meth jose e MG tablet 10:18: daily. st 37 Procedures Procedure Date / Time Performing Clinician Source Performed URINE CULTURE 2020-06-06 09:13:00 Philipp Perdomo [place] thodist COMPREHENSIVE METABOLIC 2020-06-06 09:13:00 Philipp Perdomo [facility] PANEL HC COMPLETE BLD COUNT 2020-06-06 09:13:00 Philipp Perdomo W/AUTO DIFF MAGNESIUM LEVEL 2020-06-06 09:13:00 Philipp Perdomo Nj thodist PHOSPHORUS LEVEL 2020-06-06 09:13:00 Philipp Perdomo ethodist URIC ACID LEVEL 2020-06-06 09:13:00 Philipp Perdomo N[facility] thodist LDH 2020-06-06 09:13:00 Philipp Perdomo N[facility] thodist URINALYSIS SCREEN AND 2020-06-06 09:13:00 Philipp Perdomo MICROSCOPY, WITH REFLEX TO CULTURE CREATININE LEVEL, URINE, 2020-06-06 09:13:00 Philipp Perdomo RANDOM CYCLOSPORINE LEVEL, 2020-06-06 09:13:00 Philipp Perdomo RANDOM PROTEIN, URINE, RANDOM 2020-06-06 09:13:00 Philipp Perdomo [facility] ESTIMATED GFR 2020-06-06 09:13:00 Philipp Perdomo N[facility] thodist HC COMPLETE BLD COUNT 2020-01-30 07:52:00 Juan Klein W/AUTO DIFF MAGNESIUM LEVEL 2020-01-30 07:52:00 Juan Klein Nj thodist PHOSPHORUS LEVEL 2020-01-30 07:52:00 Juan Klein ethodist URIC ACID LEVEL 2020-01-30 07:52:00 Juan Klein Nj thodist LDH 2020-01-30 07:52:00 Juan Klein Nj thodist URINALYSIS SCREEN AND 2020-01-30 07:52:00 Juan Klein MICROSCOPY, WITH REFLEX TO CULTURE CREATININE LEVEL, URINE, 2020-01-30 07:52:00 Juan Klein RANDOM PROTEIN, URINE, RANDOM 2020-01-30 07:52:00 Juan Klein CYCLOSPORINE LEVEL, 2020-01-30 07:52:00 Juan Klein RANDOM ESTIMATED GFR 2020-01-30 07:52:00 Juan Klein Nj thodist URINE CULTURE 2020-01-30 07:52:00 Juan Klein Nj thodist COMPREHENSIVE METABOLIC 2020-01-30 07:52:00 Juan Klein PANEL SARS-COV2/RT-PCR ([facility] & 2019-09-16 21:40:00 [facility] Plan of Care Planned Activity Planned Date Details Comments Source Future Scheduled 2020-11-11 INFLUENZA VACCINE Lito n [facility] Test 00:00:00 [code = INFLUENZA VACCINE] Future Scheduled 2016-02-28 COLONOSCOPY SCREENING Ho milad [facility] Test 00:00:00 [code = COLONOSCOPY SCREENING] Future Scheduled 2016-02-28 SHINGLES VACCINES Lito n [facility] Test 00:00:00 (#1) [code = SHINGLES VACCINES (#1)] Future Scheduled 1984-02-28 Hepatitis C screening [place] [facility] Test 00:00:00 (procedure) [code = 124216454] Future Scheduled 1982 COVID-19 VACCINE (1) Tiffany yee [facility] Test 00:00:00 [code = COVID-19 VACCINE (1)] Encounters Start End Encounter Admission Attending Care Care Encounter Source Date/Time Date/Time Type Type Clinicians Facility Department ID 2020-06-06 2020-06-06 Outpatient EMILY [facility] [id number] [place] 00:00:00 00:00:00 PHIL[address]P [address] 2020-03-18 2020-03-18 Telephone WINSTON Heard [id number] 00:00:00 00:00:00 Gabriela TARIQ [id number] [facility] [id number] 2020-03-16 2020-03-16 Laboratory Only, [facility] [id number] 15:00:29 15:15:29 Only Test [place] [id number] Danny [id number] [place] [id number] 2020-01-30 2020-01-30 Outpatient CAROLE, [facility] [id number] [place] 00:00:00 00:00:[address] 2020-01-23 2020-01-23 Outpatient CAROLE, [facility] [id number] [place] 00:00:00 00:00:[address] 2020-01-09 2020-01-09 Outpatient CAROLE, [facility] [id number] [place] 00:00:00 00:00:[address] 2019-07-04 2019-07-04 Outpatient CAREN GonzálezGeorgina [facility] [id number] [place] 00:00:00 00:00:[address] Results Test Description Test Time Test Comments Results Result Comments Source Protein, urine, random 2020-06-06 10:51:27 Test Item Value Reference Range Interpretation Comme nts Protein, urine random (test code = 2888-6) 285 mg/dL [place] MethodistCreatinine level, urine, [id number] 10:40:15 Test Item Value Reference Range Interpretation Comments Creatinine, urine, random (test 239 mg/dL code = 32951-0) [place] MethodistUrine [id number] 09:57:52 Test Item Value Reference Range Interpretation Comments Urine culture (test SEE COMMENT Bacteriu deandre screen code = 2931292) negative. [place] MethodistUrinalysis screen and microscopy, with reflex to culture 2020-06-06 09:57:46 Test Item Value Reference Range Interpretation Comments Specimen site (test Clean catch code = 5229799) Color, UA (test code = Yellow 5778-6) Appearance, UA (test Hazy code = 5767-9) Specific gravity, UA 1.022 1.001-1.035 (test code = 5811-5) pH, UA (test code = 5.0 5.0-8.5 5803-2) Protein, UA (test code 3+ Negative A = 70922-2) Glucose, UA (test code Negative Negative = 61116-1) Ketones, UA (test code Negative Negative = 2514-8) Bilirubin, UA (test Negative Negative code = 5770-3) Blood, UA (test code = Small Negative A 5794-3) Nitrite, UA (test code Negative Negative = 5802-4) Urobilinogen, UA (test <2.0 <2.0 code = 56863-3) Leukocyte esterase, UA Negative Negative (test code = 5799-2) Epithelial cells, UA <1 See_Comment [Autom ated (test code = 5787-7) message ] The system which generated this result transmitted reference range : /HPF. The refer ence range was not u sed to interpret th is result as normal/abnormal . WBC, UA (test code = <1 See_Comment [Autom ated 5821-4) message] The sy stem which generated this result transmitted reference range : 0 - 1 /HPF. The reference range was not used to interpret this result as normal/abnormal . RBC, UA (test code = 5 See_Comment [Autom ated 92587-5) message] The sy stem which generated this result transmitted reference range : 0 - 5 /HPF. The reference range was not used to interpret this result as normal/abnormal . Bacteria, UA (test code Few None seen = 16258-4) Yeast, UA (test code = None seen 46166-7) Yeast with None seen pseudohyphae, UA (test code = 86525-6) Hyaline casts, UA (test 7 See_Comment [Au tomated code = 5796-8) message] The system which generated this result transmitted reference range : /LPF. The refer ence range was not u sed to interpret th is result as normal/abnormal . Lab Interpretation Abnormal (test code = 79325-2) Kavon SotoARS-CoV2/RT-PCR ([facility])2019-09-17 04:32:00 Test Item Value Reference Range Interpretation Comments SARS-COV2/RT-PCR Not Detected Not Detected, (test code = Negative 20099-8) SARS-COV-2 [facility] PERFORMING LAB (test code = 19235-2) [place] (test code = Negative results do [...] of the Act. Fact Sheet for Healthcare Providers:https://www.Atlassian/Documents/Xper t%20Xpress%20SARS%20CoV- 2/Fact%20Sheets/302-3802 %02QVND-PLZ-9%20HEALTHCA RE%20PROVIDERS%20FACT%20 SHEET.pdf Fact Sheet for Healthcare Patients:https://www.VISUAL NACERT/Documents/Xpert %20Xpress%20SARS%20CoV-2 /Fact%20Sheets/302-3801% 95CMAU-NLX-1%20PATIENT%2 0FACT%20SHEET.pdf Performing Laboratory:[facility], [place] [address] [place], [place] [address]ARS-COV2/RT-PCR ([facility])2019-09-17 04:32:00 Test Item Value Reference Range Interpretation Comments SARS-COV2/RT-PCR (test Not Detected Not Detected, Negative code = 5577244) SARS-COV-2 PERFORMING LAB [facility] (test code = 6214030) Negative results do not preclude SARS-CoV-2 infection [...] of the Act.Fact Sheet for Healthcare Pro viders:https://www.[employer]/Documents/Xpert%20Xpress%20SARS%20CoV-2/Fact%20Sh eets/3023802%59ENGP-KXE-9%20HEALTHCARE%20PROVIDERS%20FACT%20SHEET.pdfFact Sheet for Healthcare Patients:https://www.Feifei.com.[employer]/Documents/Xpert%20Xpress%20SARS%20CoV-2/Fact%20Sheets/3023801%20SARS-COV -2%20PATIENT%20FACT%20SHEET.pdfPerforming Laboratory:[facility] [place] [address]
--- NOTE | 2020-08-26 08:31 | EDPHYS ---
Physician Documentation [facility] Name: Shoaib Freitas Jr Age: 55 yrs Sex: Male : 1965 Arrival Date: 08/26/2020 Time: 08:04 Bed 6 Private MD: ED Physician Santiago Key HPI: 08/26 08:28 This 55 yrs old Black Male presents to ER via Ambulatory with complaints of right cheek ma2 swelling, dental pain. 08:28 The patient presents with lost tooth/teeth, pain. Onset: The symptoms/episode ma2 began/occurred gradually, 2 day(s) ago. Associated signs and symptoms: Pertinent negatives: fever, pain, swelling. Severity of symptoms: At their worst the symptoms were moderate, in the emergency department the symptoms are unchanged. The patient has experienced similar episodes in the past. Historical: - Allergies: 08:18 No Known Allergies; aa5 - PMHx: 08:18 Gall Stones; history of dialysis; Hypertension; kidney transplant; Pancreatitis; aa5 - PSHx: 08:18 Cholecystectomy; Kidney Tranplant; aa5 - Immunization history:: Adult Immunizations up to date. - Social history:: Patient/guardian denies using alcohol, street drugs, The patient lives with family, Smoking status: Patient reports the use of cigarette tobacco products, denies chronic smoking, but will smoke occasionally. - Family history:: not pertinent. ROS: 08:28 Constitutional: Negative for fever, chills, and weight loss. ma2 08:28 All other systems are negative. Exam: 08:28 Constitutional: This is a well developed, well nourished patient who is awake, alert, ma2 and in no acute distress. Head/Face: Normocephalic, atraumatic. Eyes: Pupils equal round and reactive to light, extra-ocular motions intact. Lids and lashes normal. Conjunctiva and sclera are non-icteric and not injected. Cornea within normal limits. Periorbital areas with no swelling, redness, or edema. ENT: dental infection right upper 2nd molar with dental caries Nares patent. No nasal discharge, no septal abnormalities noted. Tympanic membranes are normal and external auditory canals are clear. Oropharynx with no redness, swelling, or masses, exudates, or evidence of obstruction, uvula midline. Mucous membranes moist. Neck: Trachea midline, no thyromegaly or masses palpated, and no cervical lymphadenopathy. Supple, full range of motion without nuchal rigidity, or vertebral point tenderness. No Meningismus. Chest/axilla: Normal chest wall appearance and motion. Nontender with no deformity. No lesions are appreciated. Cardiovascular: Regular rate and rhythm with a normal S1 and S2. No gallops, murmurs, or rubs. Normal PMI, no JVD. No pulse deficits. Respiratory: Lungs have equal breath sounds bilaterally, clear to auscultation and percussion. No rales, rhonchi or wheezes noted. No increased work of breathing, no retractions or nasal flaring. Abdomen/GI: Soft, non-tender, with normal bowel sounds. No distension or tympany. No guarding or rebound. No evidence of tenderness throughout. Vital Signs: 08:06 BP 134 / 97; Pulse 86; Resp 16 S; Temp 97.9(O); Pulse Ox 98% on R/A; Weight 99.79 kg aa5 (R); Height 5 ft. 11 in. (180.34 cm) (R); Pain 9/10; 08:06 Body Mass Index 30.68 (99.79 kg, 180.34 cm) aa5 MDM: 08:18 Patient medically screened. ma2 08:28 Differential diagnosis: dental caries, gingivitis, pericoronitis, aphthous ulcers, ma2 gingivostomatitis. Data reviewed: vital signs, nurses notes. Counseling: I had a detailed discussion with the patient and/or guardian regarding: the historical points, exam findings, and any diagnostic results supporting the discharge/admit diagnosis, the presence of at least one elevated blood pressure reading (>120/80) during this emergency department visit, the need for outpatient follow up. Response to treatment: the patient's symptoms have markedly improved after treatment. Administered Medications: 08:40 Drug: [place] (HYDROcodone-acetaminophen) 10 mg-325 mg 1 tabs Route: PO; bp 09:21 Follow up: Response: No adverse reaction bp 08:40 Drug: Augmentin (Amoxicillin-Clavulanate) 875 mg Route: PO; bp 09:22 Follow up: Response: No adverse reaction bp Disposition: 08/26/20 08:30 Discharged to Home. Impression: Dental caries. - Condition is Stable. - Discharge Instructions: Dental Pain, Dental Abscess, [id number]. - Prescriptions for Augmentin 875- 125 mg Oral Tablet - take 1 tablet by ORAL route every 12 hours for 10 days; 20 tablet. Tramadol 50 mg Oral Tablet - take 1 tablet by ORAL route every 8 hours as needed; 12 tablet. - Medication Reconciliation Form, Thank You Letter, Antibiotic Education, Prescription Opioid Use form. - Follow up: Private Physician; When: Tomorrow; Reason: If symptoms return, Continuance of care. Signatures: Chantell Agrawal, RN RN aa5 Mic Cardozo RN RN bp Santiago Key MD MD ma2 Corrections: (The following items were deleted from the chart) 09:22 08:30 08/26/2020 08:30 Discharged to Home. Impression: Dental caries. Condition is bp Stable. Discharge Instructions: Dental Abscess, Mcxm-rp-[id number]. Prescriptions for Augmentin 875-125 mg Oral Tablet - take 1 tablet by ORAL route every 12 hours for 10 days; 20 tablet, Tramadol 50 mg Oral Tablet - take 1 tablet by ORAL route every 8 hours as needed; 12 tablet. and Forms are Medication Reconciliation Form, Thank You Letter, Antibiotic Education, Prescription Opioid Use. Follow up: Private Physician; When: Tomorrow; Reason: If symptoms return, Continuance of care. ma2
--- NOTE | 2020-08-26 08:31 | ER ---
Nurse's Notes [facility] Name: Shoaib Freitas Jr Age: 55 yrs Sex: Male : 1965 Arrival Date: 08/26/2020 Time: 08:04 Bed 6 Private MD: Diagnosis: Dental caries Presentation: 08/26 08:06 Chief complaint: Patient states: right upper toothache that began 2 days ago, swelling aa5 to right cheek began today. 08:06 Method Of Arrival: Ambulatory aa5 08:06 Coronavirus screen: At this time, the client does not indicate any symptoms associated aa5 with coronavirus-19. Ebola Screen: Patient negative for fever greater than or equal to 101.5 degrees Fahrenheit, and additional compatible Ebola Virus Disease symptoms. Initial Sepsis Screen: Does the patient meet any 2 criteria? No. Patient's initial sepsis screen is negative. Does the patient have a suspected source of infection? No. Patient's initial sepsis screen is negative. Risk Assessment: Do you want to hurt yourself or someone else? Patient reports no desire to harm self or others. Onset of symptoms was August 2020. 08:06 Acuity: COBY 5 aa5 Triage Assessment: 08:15 General: Appears in no apparent distress. uncomfortable, Behavior is cooperative, bp appropriate for age, anxious. Pain: Complains of pain in right cheek and right jaw. EENT: Reports R DENTAL ABSCESS. Neuro: No deficits noted. Cardiovascular: No deficits noted. Respiratory: No deficits noted. GI: No signs and/or symptoms were reported involving the gastrointestinal system. : No signs and/or symptoms were reported regarding the genitourinary system. Derm: No deficits noted. Musculoskeletal: No deficits noted. Historical: - Allergies: 08:18 No Known Allergies; aa5 - PMHx: 08:18 Gall Stones; history of dialysis; Hypertension; kidney transplant; Pancreatitis; aa5 - PSHx: 08:18 Cholecystectomy; Kidney Tranplant; aa5 - Immunization history:: Adult Immunizations up to date. - Social history:: Patient/guardian denies using alcohol, street drugs, The patient lives with family, Smoking status: Patient reports the use of cigarette tobacco products, denies chronic smoking, but will smoke occasionally. - Family history:: not pertinent. Screenin:18 Abuse screen: Denies threats or abuse. Denies injuries from another. Nutritional bp screening: No deficits noted. Tuberculosis screening: No symptoms or risk factors identified. Fall Risk None identified. Assessment: 08:15 General: SEE TRIAGE NOTE. bp 09:18 Reassessment: PT D/C HOME AMBULATORY, DX WITH DENTAL CARIES. bp Vital Signs: 08:06 BP 134 / 97; Pulse 86; Resp 16 S; Temp 97.9(O); Pulse Ox 98% on R/A; Weight 99.79 kg aa5 (R); Height 5 ft. 11 in. (180.34 cm) (R); Pain 9/10; 08:06 Body Mass Index 30.68 (99.79 kg, 180.34 cm) aa5 ED Course: 08:04 Patient arrived in ED. am2 08:06 Arm band placed on Patient placed in an exam room, on a stretcher. aa5 08:16 Triage completed. aa5 08:18 Santiago Key MD is Attending Physician. ma2 08:28 Mic Cardozo, RN is Primary Nurse. bp 09:18 Patient has correct armband on for positive identification. Bed in low position. Call bp light in reach. Side rails up X2. 09:18 No provider procedures requiring assistance completed. Patient did not have IV access bp during this emergency room visit. Administered Medications: 08:40 Drug: [place] (HYDROcodone-acetaminophen) 10 mg-325 mg 1 tabs Route: PO; bp 09:21 Follow up: Response: No adverse reaction bp 08:40 Drug: Augmentin (Amoxicillin-Clavulanate) 875 mg Route: PO; bp 09:22 Follow up: Response: No adverse reaction bp Outcome: 08:30 Discharge ordered by . ma2 09:18 Discharged to home ambulatory. bp 09:18 Condition: stable 09:18 Discharge instructions given to patient, Instructed on Prescriptions given X 2. 09:22 Patient left the ED. bp Signatures: Chantell Agrawal RN RN aa5 Manda Finnegan 2 Mic Cardozo, PRINCESS RN Santiago Key MD MD ma2
[2020-08-26] MEDS ORDERED: HYDROCODONE/APAP 10/325 TAB ONE (08:53)
[2020-08-26] MEDS ORDERED: AMOX/K CLAV 875 MG TAB ONE (08:53)
== END 2020-08-26 09:22 | disposition home or self-care (01) ==
LOC: ER 08:02
DX: K02.9 Dental caries, unspecified (principal); I10 Essential (primary) hypertension; F17.210 Nicotine dependence, cigarettes, uncomplicated; Z94.0 Kidney transplant status
CPT/HCPCS: 99283

== ENCOUNTER 2020-10-25 14:17 | Emergency (ER) | payer OTHER ==
--- OUTSIDE RECORDS SUMMARY | 2020-10-25 14:20 | XMS REPORT | Continuity of Care Document ---
:1965 Author Organization [facility] t Address [address] [place] [address] Dr. Ng [address] [place] [address] Care Team Providers Name Role Phone Akin Green MD Primary Care Physician Carole ALVAREZ MGeorgina Attending Clinician Leanne ALVAREZ MGeorgina Attending Clinician Félix RN, D Attending Clinician Unavailable Only, Test Attending Clinician Unavailable CAREN Attending Clinician Unavailable Payers Payer Name Policy Type Policy Effective Date Expiration Date Sour ce Number MEDICAREMEDICARE PART [id number] 1993 Victorino quinonezemi Maria Elena AND 00:00:00 [facility] [id number] [address] Condition Condition Condition Status Onset Resolution Last Treating Co mments Source Name Details Category Date Date Treatment Clinician Date Kidney Kidney Disease Active 2017-04 [place] transplant transplant 0-08 Me thodi recipient recipient 00:00: st 00 Right Right Disease Active 2017-04 [place] upper upper 0-08 [facility] quadrant quadrant 00:00: st abdominal abdominal 00 pain pain Disorder Disorder Disease Active 2017-04 [place] liver of liver 0-06 [facility] i 00:00: st 00 Cholelithi Cholelithi Disease Active 2017-04 [place] [facility] asis 0-05 [facility] 00:00: st 00 Allergies, Adverse Reactions, Alerts This patient has no known allergies or adverse reactions. Family History Family Member Diagnosis Comments Start Date Stop Date Source Natural father Hypertension [facility] Natural mother Heart disease [facility] Natural mother Hypertension [facility] Natural sister Diabetes [facility] Social History Social Habit Start Date Stop Date Quantity Comments Source Tobacco use and 2018-01-18 2018-01-18 Never used Kavon Prescott [facility]ist exposure 00:00:00 00:00:00 Alcohol intake 2018-01-18 2018-01-18 Current Kavon Ortiz thodist 00:00:00 00:00:00 non-drinker of alcohol (finding) Tobacco Comment 2018-01-15 2018-01-15 "Quit 2-3 months Tiffany ston [facility] 00:00:00 00:00:00 ago" Sex [birth year] At [birth year] Kavon Prescott [facility] 00:00:00 00:00:00 Smoking Status Start Date Stop Date Source Former smoker 2018-01-18 00:00:00 2018-01-18 00:00:00 [place] [facility] Current some day 2016-03-26 00:00:00 [facility] smoker Center Medications Ordered Filled Start [...] Procedure Date / Time Performed Performing Clinician Sour e COMPLETE BLD COUNT 2020-09-13 10:29:00 Juan Klein [facility] W/AUTO DIFF MAGNESIUM LEVEL 2020-09-13 10:29:00 Juan Klein Me [facility] PHOSPHORUS LEVEL 2020-09-13 10:29:00 Juan Klein [facility]ist URIC ACID LEVEL 2020-09-13 10:29:00 Juan Klein [facility] LDH 2020-09-13 10:29:00 Juan Klein [facility] URINALYSIS SCREEN AND 2020-09-13 10:29:00 Juan Klein [facility] MICROSCOPY, WITH REFLEX TO CULTURE CREATININE LEVEL, URINE, 2020-09-13 10:29:00 Juan Klein [facility] RANDOM PROTEIN, URINE, RANDOM 2020-09-13 10:29:00 Juan Klein [facility] COMPREHENSIVE METABOLIC 2020-09-13 10:29:00 Juan Klein [facility] PANEL CYCLOSPORINE LEVEL, 2020-09-13 10:29:00 Juan Klein [facility] RANDOM PARATHYROID HORMONE 2020-09-13 10:29:00 Juan Klein [facility] VITAMIN D 25 HYDROXY 2020-09-13 10:29:00 Juan Klein on [facility] LEVEL ESTIMATED GFR 2020-09-13 10:29:00 Juan Klein [facility] SMEAR REVIEW 2020-09-13 10:29:00 Juan Klein [facility] URINE CULTURE 2020-09-13 10:29:00 Juan Klein [facility] PHOSPHORUS LEVEL 2020-09-03 08:21:00 Juan Klein ethodist URIC ACID LEVEL 2020-09-03 08:21:00 Juan Klein [facility] LDH 2020-09-03 08:21:00 Juan Klein [facility] URINALYSIS SCREEN AND 2020-09-03 08:21:00 Juan Klein [facility] MICROSCOPY, WITH REFLEX TO CULTURE CREATININE LEVEL, URINE, 2020-09-03 08:21:00 Juan Klein RANDOM PROTEIN, URINE, RANDOM 2020-09-03 08:21:00 Juan Klein stotyree [facility] COMPREHENSIVE METABOLIC 2020-09-03 08:21:00 Juan Klein [facility] PANEL CYCLOSPORINE LEVEL, 2020-09-03 08:21:00 Juan Klein [facility] RANDOM PARATHYROID HORMONE 2020-09-03 08:21:00 Juan Klein [facility] VITAMIN D 25 HYDROXY 2020-09-03 08:21:00 Juan Klein on [facility] LEVEL ESTIMATED GFR 2020-09-03 08:21:00 Juan Klein [facility] URINE CULTURE 2020-09-03 08:21:00 Juan Klein [facility] HC COMPLETE BLD COUNT 2020-09-03 08:21:00 Juan Klein [facility] W/AUTO DIFF MAGNESIUM LEVEL 2020-09-03 08:21:00 Juan Klein [facility] URINE CULTURE 2020-06-06 09:13:00 Philipp Perdomo [facility] COMPREHENSIVE METABOLIC 2020-06-06 09:13:00 Philipp Perdomo [facility] PANEL HC COMPLETE BLD COUNT 2020-06-06 09:13:00 Philipp Perdomo W/AUTO DIFF MAGNESIUM LEVEL 2020-06-06 09:13:00 Philipp Perdomo [facility] PHOSPHORUS LEVEL 2020-06-06 09:13:00 Philipp Perdomo ethodist URIC ACID LEVEL 2020-06-06 09:13:00 Philipp Perdomo [facility] LDH 2020-06-06 09:13:00 Philipp Perdomo [facility] URINALYSIS SCREEN AND 2020-06-06 09:13:00 Philipp Perdomo [facility] MICROSCOPY, WITH REFLEX TO CULTURE CREATININE LEVEL, URINE, 2020-06-06 09:13:00 Philipp Perdomo RANDOM CYCLOSPORINE LEVEL, 2020-06-06 09:13:00 Philipp Perdomo RANDOM PROTEIN, URINE, RANDOM 2020-06-06 09:13:00 Philipp Perdomo ESTIMATED GFR 2020-06-06 09:13:00 Philipp Perdomo [facility] URINE CULTURE 2020-01-30 07:52:00 Juan Klein [facility] COMPREHENSIVE METABOLIC 2020-01-30 07:52:00 Juan Klein PANEL HC COMPLETE BLD COUNT 2020-01-30 07:52:00 Juan Klein W/AUTO DIFF MAGNESIUM LEVEL 2020-01-30 07:52:00 Juan Klein [facility] PHOSPHORUS LEVEL 2020-01-30 07:52:00 Juan Klein ethodist URIC ACID LEVEL 2020-01-30 07:52:00 Juan Klein [facility] LDH 2020-01-30 07:52:00 Juan Klein [facility] URINALYSIS SCREEN AND 2020-01-30 07:52:00 Juan Klein MICROSCOPY, WITH REFLEX TO CULTURE CREATININE LEVEL, URINE, 2020-01-30 07:52:00 Juan Klein RANDOM PROTEIN, URINE, RANDOM 2020-01-30 07:52:00 Juan Klein CYCLOSPORINE LEVEL, 2020-01-30 07:52:00 Juan Klein [facility] RANDOM ESTIMATED GFR 2020-01-30 07:52:00 Juan Klein [facility] Plan of Care Planned Activity Planned Date Details Comments Source Future Scheduled 2020-11-11 INFLUENZA VACCINE Linnette n [facility] Test 00:00:00 [code = INFLUENZA VACCINE] Future Scheduled 2016-02-28 COLONOSCOPY SCREENING Victorino stinson [facility] Test 00:00:00 [code = COLONOSCOPY SCREENING] Future Scheduled 2016-02-28 SHINGLES VACCINES Linnette clements [facility] Test 00:00:00 (#1) [code = SHINGLES VACCINES (#1)] Future Scheduled 1984-02-28 Hepatitis C screening Victorino stinson [facility] Test 00:00:00 (procedure) [code = 965060351] Future Scheduled 1978 COVID-19 VACCINE (1) Tiffany yee [facility] Test 00:00:00 [code = COVID-19 VACCINE (1)] Encounters Start End Encounter Admission Attending Care Care Encounter Source Date/Time Date/Time Type Type Clinicians Facility Department ID 2020-09-13 2020-09-13 Outpatient [facility] [id number] [place] 00:00:00 00:00:00 262 [facility] 2020-09-03 2020-09-03 Outpatient [facility] [id number] [place] 00:00:00 00:00:00 144 [facility] 2020-06-06 2020-06-06 Outpatient [facility] [id number] [place] 00:00:00 00:00:[address] 2020-03-18 2020-03-18 Telephone WINSTON Heard [id number] 00:00:00 00:00:00 Gabriela TARIQ [id number] [facility] [id number] 2020-03-16 2020-03-16 Laboratory Only, [facility] [id number] 15:00:29 15:15:29 Only Test [place] [id number] [place] [id number] [place] [id number] 2020-01-30 2020-01-30 Outpatient [facility] [id number] [place] 00:00:00 00:00:00 056 [facility] 2020-01-23 2020-01-23 Outpatient [facility] [id number] [place] 00:00:00 00:00:00 872 [facility] 2020-01-09 2020-01-09 Outpatient [facility] [id number] [place] 00:00:00 00:00:[address] 2019-07-04 2019-07-04 Outpatient Usha [facility] [id number] [place] 00:00:00 00:00:[address] Results Test Description Test Time Test Comments Results Result Comments Source Protein, urine, random 2020-09-13 13:51:53 Test Item Value Reference Range Interpretation Comme nts Protein, urine random (test code = 2888-6) 249 mg/dL [place] MethodistCreatinine level, urine, [id number] 13:40:39 Test Item Value Reference Range Interpretation Comments Creatinine, urine, random (test 208 mg/dL code = 27327-4) [place] MethodistUrinalysis screen and microscopy, with reflex to culture 2020-09-13 12:37:30 Test Item Value Reference Range Interpretation Comments Specimen site (test Clean catch code = 4092891) Color, UA (test code = Yellow 5778-6) Appearance, UA (test Hazy code = 5767-9) Specific gravity, UA 1.019 1.001-1.035 (test code = 5811-5) pH, UA (test code = 5.0 5.0-8.5 5803-2) Protein, UA (test code 3+ Negative A = 81310-1) Glucose, UA (test code Negative Negative = 75922-2) Ketones, UA (test code Negative Negative = 2514-8) Bilirubin, UA (test Negative Negative code = 5770-3) Blood, UA (test code = Moderate Negative A 5794-3) Nitrite, UA (test code Negative Negative = 5802-4) Urobilinogen, UA (test <2.0 <2.0 code = 58909-3) Leukocyte esterase, UA Negative Negative (test code = 5799-2) WBC, UA (test code = 1 See_Comment [Autom ated 5821-4) message] The sy stem which generated this result transmitted reference range : 0 - 1 /HPF. The reference range was not used to interpret this result as normal/abnormal . RBC, UA (test code = 10 See_Comment H [Autom ated 88344-9) message] The sy stem which generated this result transmitted reference range : 0 - 5 /HPF. The reference range was not used to interpret this result as normal/abnormal . Bacteria, UA (test code None seen None seen = 52373-2) Yeast, UA (test code = None seen 11099-6) Yeast with None seen pseudohyphae, UA (test code = 57655-6) Lab Interpretation Abnormal (test code = 37557-4) [place] MethodistUrine [id number] 12:26:36 Test Item Value Reference Range Interpretation Comments Urine culture (test SEE COMMENT Bacteriu deandre screen code = 0568179) negative. Kavon SotoARS-COV2/RT-PCR ([facility])2019-09-17 04:32:00 Test Item Value Reference Range Interpretation Comments SARS-COV2/RT-PCR (test Not Detected Not Detected, Negative code = 5193094) SARS-COV-2 PERFORMING LAB [facility] (test code = 5734069) Negative results do not preclude SARS-CoV-2 infection [...] of the Act.Fact Sheet for Healthcare Pro viders:https://www.[employer].com/Documents/Xpert%20Xpress%20SARS%20CoV-2/Fact%20Sh eets/365-4032%36PSGG-LPR-1%20HEALTHCARE%20PROVIDERS%20FACT%20SHEET.pdfFact Sheet for Healthcare Patients:https://www.Soko id[employer]/Documents/Xpert%20Xpress%20SARS%20CoV-2/Fact%20Sheets/302-2311%20SARS-COV -2%20PATIENT%20FACT%20SHEET.pdfPerforming Laboratory:[facility] [place] [address]
--- NOTE | 2020-10-25 18:32 | RAD REPORT ---
EXAM DESCRIPTION: RAD - Chest Single View - 10/25/2020 6:22 pm CLINICAL HISTORY: lower extremity edema COMPARISON: June 23 TECHNIQUE: AP portable chest image was obtained 10/25/2020 6:22 pm . FINDINGS: No peripheral mass or consolidation. Interstitial pattern is prominent matching the prior study. Heart size is prominent similar or decreased from the comparison. Mild prominence of the vascu lature noted. No measurable pleural effusion and no pneumothorax. No acute bony abnormality seen. No acute aortic findings suspected. IMPRESSION: No focal mass or consolidation. Heart, vasculature and lung markings are not outside of normal range. A mild failure or volume overlo ad would still be possible.
[2020-10-25] MEDS ORDERED: HYDROCODONE/APAP 7.5/325 MG TAB ONE (19:19)
[2020-10-25 19:24] LABS: ALT/SGPT 61 U/L (12-78); AST/SGOT 36 U/L (15-37); Albumin 3.7 g/dL (3.4-5.0); Alkaline Phosphatase 83 U/L (45-117); BUN Blood Urea Nitrogen 20 mg/dL (7-18); Bicarbonate 28 mmol/L (21-32); Bilirubin Direct < 0.1 mg/dL (0-0.2); Bilirubin Total 0.3 mg/dL (0.2-1.0); Glucose Level 115 mg/dL (74-106); Magnesium 2.3 mg/dL (1.8-2.4); NT PRO-BNP 71 pg/mL (<125); Protein, Total 7.8 g/dL (6.4-8.2); Sodium Level 141 mmol/L (136-145)
[2020-10-25 20:12] LABS: Basophils % 0.9 % (0-1.3); MPV 7.9 fL (7.6-11.3); RBC Red Blood Cell Count 4.39 M/uL (4.33-5.43)
[2020-10-25 20:21] LABS: Protime INR 0.92
--- NOTE | 2020-10-25 20:38 | RAD REPORT ---
EXAM DESCRIPTION: CT - Chest Abd Pelvis Wo Con - 10/25/2020 7:47 pm CLINICAL HISTORY: fall, back pain COMPARISON: Chest Abd Pelvis Wo Con dated 12/21/2016 TECHNIQUE: Axial 5 millimeter thick images of the chest, abdomen and pelvis were obtained without IV contrast. Oral contrast was administered. All CT scans are performed using dose optimization technique as appropriate and may include automated exposure control or mA/KV adjustment according to patient size. FINDINGS: The lungs are clear of mass and infiltrate. No pneumothorax, pulmonary contusion or pleur al effusion. No chest wall mass or abnormal axillary lymphadenopathy seen. Mediastinal and hilar re gions show no mass or lymphadenopathy. No significant cardiac finding. No displaced or nondisplaced rib fractures identifiable. No acute thoracic vertebral body abnormality seen. The liver, spleen and pancreas show no significant findings for non contrast imaging. Gallbladder an d biliary tree are normal. Markedly atrophic [place] kidneys are present. Left pelvic transplant kidney is present. No hydronephr osis or obstructing calculus. There is some mild stranding in the fat adjacent to the transplant kidn ey. There was mild congestion or edema in the fat on the 2017 study as well. . No adrenal abnormaliti es. No urinary bladder abnormalities. No dilated bowel loops or focal ball bowel wall thickening. No free air, free fluid or inflammatory stranding. No hernia, mass or bulky lymphadenopathy. Lumbar and pelvic degenerative changes are present. No fracture or acute finding seen. IMPRESSION: CT chest imaging shows no traumatic injury or other significant finding. CT abdomen and pelvis show no traumatic injury or other significant finding.The stranding in the fat adjacent to the transplant kidney is not substantially different from 2017.
[2020-10-25] MEDS ORDERED: FUROSEMIDE 20 MG/ 2ML VIAL ONE (21:08)
--- NOTE | 2020-10-25 22:04 | RAD REPORT ---
EXAM DESCRIPTION: US - Extrem Venous W Compress Last - 10/25/2020 9:44 pm CLINICAL HISTORY: SWELLING COMPARISON: None. TECHNIQUE: Real-time sonographic evaluation of the right lower extremity deep venous systems was per formed. FINDINGS: Normal compressibility, flow augmentation, phasic flow and spontaneous flow are identified in the right lower extremity common femoral, superficial femoral, popliteal and posterior tibial vei ns. No intraluminal filling defects seen. Left common femoral superficial femoral vein show good compression and augmentation. Hyperechoic mate rial is present in the left popliteal vein. This is believed to be remnant thrombus from the June ex . No acute popliteal deep venous thrombosis suspected. IMPRESSION: No DVT in the right lower extremity. Old remnant thrombus persists in the left popliteal vein. No left-side acute DVT.
--- NOTE | 2020-10-25 22:20 | ER ---
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 Pt also aa5 reports "I am also all swollen". Coronavirus screen: At this time, the client does not indicate any symptoms associated with coronavirus-19. Ebola Screen: Patient negative for fever greater than or equal to 101.5 degrees Fahrenheit, and additional compatible Ebola Virus Disease symptoms. Initial Sepsis Screen: Does the patient meet any 2 criteria? No. Patient's initial sepsis screen is negative. Does the patient have a suspected source of infection? No. Patient's initial sepsis screen is negative. Risk Assessment: Do you want to hurt yourself or someone else? Patient reports no desire to harm self or others. Onset of symptoms was October 2020. 14:29 Method Of Arrival: Wheelchair aa5 14:29 Acuity: COBY 3 aa5 Historical: - Allergies: 14:31 No Known Allergies; aa5 - PMHx: 14:31 Gall Stones; history of dialysis; Hypertension; kidney transplant; Pancreatitis; aa5 - Immunization history:: Adult Immunizations unknown, Client reports receiving the 2nd dose of the Covid vaccine, Flu vaccine is up to date. - Social history:: Smoking status: Patient/guardian denies using tobacco. Screenin:34 Abuse screen: Denies threats or abuse. Nutritional screening: No deficits noted. rb3 Tuberculosis screening: No symptoms or risk factors identified. Fall Risk None identified. Assessment: 17:34 General: Appears in no apparent distress. Behavior is calm, cooperative. Pain: rb3 Complains of pain in left low back Pain radiates to mid back Pain currently is 9 out of 10 on a pain scale. Neuro: Level of Consciousness is awake, alert, obeys commands, Oriented to person, place, time, situation. Cardiovascular: Patient's skin is warm and dry. Respiratory: Airway is patent Respiratory effort is even, unlabored, Respiratory pattern is regular, symmetrical. GI: No signs and/or symptoms were reported involving the gastrointestinal system. : No signs and/or symptoms were reported regarding the genitourinary system. Musculoskeletal: Range of motion: intact in all extremities. 19:00 Reassessment: Patient appears in no apparent distress at this time. Patient and/or jb4 family updated on plan of care and expected duration. Pain level reassessed. Patient is alert, oriented x 3, equal unlabored respirations, skin warm/dry/pink. 20:00 Reassessment: Patient appears in no apparent distress at this time. Patient and/or jb4 family updated on plan of care and expected duration. Pain level reassessed. Patient is alert, oriented x 3, equal unlabored respirations, skin warm/dry/pink. 21:30 Reassessment: Patient appears in no apparent distress at this time. Patient and/or jb4 family updated on plan of care and expected duration. Pain level reassessed. Patient is alert, oriented x 3, equal unlabored respirations, skin warm/dry/pink. 22:50 Reassessment: Patient appears in no apparent distress at this time. Patient and/or jb4 family updated on plan of care and expected duration. Pain level reassessed. Patient is alert, oriented x 3, equal unlabored respirations, skin warm/dry/pink. Vital Signs: 14:30 BP 149 / 88; Pulse 88; Resp 20 S; Temp 98.6(TE); Pulse Ox 99% on R/A; aa5 20:00 BP 141 / 85; Pulse 69; Resp 16; Pulse Ox 98% on R/A; jb4 21:30 BP 129 / 83; Pulse 76; Resp 15; Pulse Ox 98% on R/A; jb4 22:00 BP 130 / 73; Pulse 73; Resp 18; Pulse Ox 98% on R/A; jb4 ED Course: 14:20 Patient arrived in ED. mr 14:26 Arm band placed on. aa5 14:30 Triage completed. aa5 17:25 Missed attempt(s): 20 gauge in right antecubital area. Bleeding controlled, band aid rb3 applied, catheter tip intact. 17:34 Patient has correct armband on for positive identification. Bed in low position. Call rb3 light in reach. Side rails up X 1. Pulse ox on. NIBP on. 17:35 Valerie Shepherd, RN is Primary Nurse. rb3 17:43 Vidal Dejesus PA is PHCP. cp 17:43 Panfilo Peter MD is Attending Physician. cp 18:22 XRAY Chest (1 view) In Process Unspecified. EDMS 18:52 Inserted saline lock: 20 gauge in right forearm, using aseptic technique. ,using rb3 aseptic technique. IV inserted by PRINCESS Charlton Blood collected. 19:47 CT Chest Abdomen Pelvis W/O Contrast In Process Unspecified. EDMS 21:44 US Extremity Venous W Compression Last In Process Unspecified. EDMS 22:18 David Neely MD is Referral Physician. cp 22:51 No provider procedures requiring assistance completed. IV discontinued, intact, jb4 bleeding controlled, No redness/swelling at site. Pressure dressing applied. Administered Medications: 19:02 Drug: Hydrocodone-Acetaminophen (7.5 mg-325 mg) 1 tabs Route: PO; rb3 22:50 Follow up: Response: No adverse reaction jb4 20:55 Drug: Lasix (furosemide) 20 mg Route: IVP; Site: right forearm; jb4 22:49 Drug: Eliquis (apixaban) 5 mg Route: PO; jb4 22:50 Follow up: Response: Medication administered at discharge. jb4 Outcome: 22:19 Discharge ordered by MD. cp 22:51 Discharged to home ambulatory, with family. jb4 22:51 Condition: stable 22:51 Discharge instructions given to patient, Instructed on discharge instructions, follow up and referral plans. medication usage, Demonstrated understanding of instructions, follow-up care, medications, Prescriptions given X 3. 22:51 Patient left the ED. jb4 Signatures: Dispatcher [employer] [facility] Eufemia PiresChantell RN RN aa5 Vidal Dejesus PA PA cp Bryson, James, RN RN jb4 Valerie Shepherd, RN RN rb3
--- NOTE | 2020-10-25 22:21 | EDPHYS ---
Physician Documentation [facility] Name: Shoaib Freitas Jr Age: 55 yrs Sex: Male : 1965 Arrival Date: 10/25/2020 Time: 14:20 Bed 20 Private MD: ED Physician Panfilo Peter HPI: 10/25 18:00 This 55 yrs old Black Male presents to ER via Wheelchair with complaints of Back Pain. cp 18:00 The patient presents with pain that is acute. The symptoms are located in the left cp subscapular area, right subscapular area, left low back, left mid back, right mid back and right low back. Onset: The symptoms/episode began/occurred yesterday. The problem was sustained during a fall, while playing softball. 18:00 Associated signs and symptoms: Pertinent positives: swelling of lower lower cp extremities, Pertinent negatives: abdominal pain, chest pain, constipation, fever, numbness. 21:44 Patient reports discontinuing prescribed Eliquis. cp Historical: - Allergies: 14:31 No Known Allergies; aa5 - PMHx: 14:31 Gall Stones; history of dialysis; Hypertension; kidney transplant; Pancreatitis; aa5 - Immunization history:: Adult Immunizations unknown, Client reports receiving the 2nd dose of the Covid vaccine, Flu vaccine is up to date. - Social history:: Smoking status: Patient/guardian denies using tobacco. ROS: 18:05 Constitutional: Negative for body aches, chills, fever, poor PO intake. cp 18:05 Eyes: Negative for injury, pain, redness, and discharge. cp 18:05 ENT: Negative for ear pain, sore throat, difficulty swallowing, difficulty handling secretions. 18:05 Cardiovascular: Positive for edema, Negative for chest pain, palpitations. 18:05 Respiratory: Negative for cough, shortness of breath, wheezing. 18:05 Abdomen/GI: Negative for abdominal pain, nausea, vomiting, and diarrhea, constipation, bowel incontinence. 18:05 Back: Positive for pain at rest, pain with movement, of the left subscapular area, right subscapular area, low back area and mid back area. 18:05 : Negative for urinary symptoms, difficulty urinating, bladder incontinence, testicular pain 18:05 Neuro: Negative for altered mental status, dizziness, headache, loss of consciousness, syncope, weakness. 18:05 All other systems are negative. Exam: 18:10 Constitutional: The patient appears in no acute distress, alert, awake, cp non-diaphoretic, non-toxic, well developed, well nourished, uncomfortable. 18:10 Head/Face: Normocephalic, atraumatic. cp 18:10 Eyes: Periorbital structures: appear normal, Conjunctiva: normal, no exudate, no injection, Sclera: no appreciated abnormality, Lids and lashes: appear normal, bilaterally. 18:10 ENT: External ear(s): are unremarkable, Nose: is normal, Mouth: Lips: moist, Oral mucosa: moist, Posterior pharynx: Airway: no evidence of obstruction, patent. 18:10 Neck: C-spine: vertebral tenderness, is not appreciated, crepitus, is not appreciated, ROM/movement: is normal, is supple, without pain, no range of motions limitations. 18:10 Chest/axilla: Inspection: normal, Palpation: is normal, no crepitus, no tenderness. 18:10 Cardiovascular: Rate: normal, Rhythm: regular, Edema: ankle edema, that is mild, JVD: is not appreciated. 18:10 Respiratory: the patient does not display signs of respiratory distress, Respirations: normal, no use of accessory muscles, no retractions, labored breathing, is not present, Breath sounds: are clear throughout, no decreased breath sounds, no stridor, no wheezing. 18:10 Abdomen/GI: Inspection: abdomen appears normal, Bowel sounds: active, all quadrants, Palpation: abdomen is soft and non-tender, in all quadrants. 18:10 Back: pain, that is moderate, of the left subscapular area, right subscapular area, low back area and mid back area, ROM is painful, with all movement. 18:10 Skin: cellulitis, is not appreciated, no rash present. 18:10 Neuro: Orientation: to person, place \T\ time. Mentation: is normal, Motor: moves all fours, strength is normal, Sensation: is normal, Gait: is steady, Deep tendon reflexes are 2+ (normal) in the right patellar, right Achilles, left patellar and left Achilles. 20:15 ECG was reviewed by the Attending Physician. cp Vital Signs: 14:30 BP 149 / 88; Pulse 88; Resp 20 S; Temp 98.6(TE); Pulse Ox 99% on R/A; aa5 20:00 BP 141 / 85; Pulse 69; Resp 16; Pulse Ox 98% on R/A; jb4 21:30 BP 129 / 83; Pulse 76; Resp 15; Pulse Ox 98% on R/A; jb4 22:00 BP 130 / 73; Pulse 73; Resp 18; Pulse Ox 98% on R/A; jb4 MDM: 17:48 Patient medically screened. cp 18:00 Differential diagnosis: chronic back pain, Fracture ruptured disc, vertebral fracture, cp CHF, DVT, pulmonary edema. 22:19 Data reviewed: vital signs, nurses notes, lab test result(s), EKG, radiologic studies, cp plain films, ultrasound. 22:19 Test interpretation: by ED physician or midlevel provider: ECG, plain radiologic cp studies. Counseling: I had a detailed discussion with the patient and/or guardian regarding: the historical points, exam findings, and any diagnostic results supporting the discharge/admit diagnosis, lab results, radiology results, the need for outpatient follow up, an director of healthcare systems, to return to the emergency department if symptoms worsen or persist or if there are any questions or concerns that arise at home. Response to treatment: the patient's symptoms have markedly improved after treatment, VSS. Pain improved. Patient instructed on need to resume Eliquis. Will discharge to home for continued monitoring. 10/25 17:49 Order name: Basic Metabolic Panel; Complete Time: 20:25 cp 10/25 20:25 Interpretation: Normal except: GLUC 115; BUN 20; CRE 1.78; GFR 49. cp 10/25 17:49 Order name: CBC with Diff; Complete Time: 20:25 cp 10/25 17:49 Order name: LFT's; Complete Time: 20:25 cp 10/25 20:26 Interpretation: Normal except: GLOB 4.1; A/G 0.9. cp 10/25 17:49 Order name: Magnesium; Complete Time: 20:25 cp 10/25 17:49 Order name: NT PRO-BNP; Complete Time: 20:25 cp 10/25 17:49 Order name: PT-INR; Complete Time: 21:19 cp 10/25 17:49 Order name: XRAY Chest (1 view); Complete Time: 18:37 cp 10/25 18:38 Interpretation: Report review. 10/25 17:49 Order name: EKG; Complete Time: 17:50 cp 10/25 17:49 Order name: Cardiac monitoring; Complete Time: 20:06 cp 10/25 19:08 Order name: CT Chest Abdomen Pelvis W/O Contrast; Complete Time: 21:19 cp 10/25 21:19 Interpretation: Report reviewed. 10/25 20:28 Order name: US Extremity Venous W Compression Last; Complete Time: 22:16 cp 10/25 17:49 Order name: EKG - Nurse/Tech; Complete Time: 20:06 cp 10/25 17:49 Order name: IV Saline Lock; Complete Time: 19:02 cp 10/25 17:49 Order name: Labs collected and sent; Complete Time: 19:02 cp 10/25 17:49 Order name: O2 Per Protocol; Complete Time: 19:02 cp 10/25 17:49 Order name: O2 Sat Monitoring; Complete Time: 19:02 cp EC:15 Rate is 72 beats/min. Rhythm is regular. OK interval is normal. QRS interval is normal. cp QT interval is normal. T waves are Inverted in lead aVR. Interpreted by me. Reviewed by me. Administered Medications: 19:02 Drug: Hydrocodone-Acetaminophen (7.5 mg-325 mg) 1 tabs Route: PO; rb3 22:50 Follow up: Response: No adverse reaction jb4 20:55 Drug: Lasix (furosemide) 20 mg Route: IVP; Site: right forearm; jb4 22:49 Drug: Eliquis (apixaban) 5 mg Route: PO; jb4 22:50 Follow up: Response: Medication administered at discharge. jb4 Disposition: 10/26 07:28 Co-signature as Attending Physician, Panfilo Peter MD I agree with the assessment and kdr plan of care. Disposition Summary: 10/25/20 22:19 Discharge Ordered Location: Home cp Problem: new cp Symptoms: have improved cp Condition: Stable cp Diagnosis - Dorsalgia, unspecified cp - Fall on same level from slipping, tripping and stumbling without subsequent cp striking against object - Chronic embolism and thrombosis of other specified deep vein of left lower extremitycp Followup: cp - With: David Neely MD - When: 2 - 3 days - Reason: Recheck today's complaints Discharge Instructions: - Discharge Summary Sheet cp - Acute Back Pain, Adult cp - Deep Vein Thrombosis cp - Musculoskeletal Pain cp Forms: - Medication Reconciliation Form cp - Thank You Letter cp - Antibiotic Education cp - Prescription Opioid Use cp Prescriptions: - Eliquis 5 mg Oral tablet - take 1 tablet by ORAL route 2 times per day; 60 tablet; Refills: 0, Product cp Selection Permitted - Lidoderm 5 % Topical adhesive patch,medicated - apply 1 patch by TRANSDERMAL route once daily As needed; 1 box; Refills: 0, cp Product Selection Permitted - Cyclobenzaprine 10 mg Oral Tablet - take 1 tablet by ORAL route every 8 hours As needed; 30 tablet; Refills: 0, cp Product Selection Permitted Signatures: Dispatcher [employer] EDPanfilo Robledo MD MD kdr Calderon, Audri, RN RN aa5 Vidal Dejesus PA PA Lefty Vizcaino, RN RN jb4 Valerie Shepherd RN RN rb3
[2020-10-25] MEDS ORDERED: APIXABAN 5 MG TABLET ONE (23:01)
[2020-10-25 23:03] VITALS: TEMP 98.6
[2020-10-25 23:05] VITALS: O2SAT 98
[2020-10-25 23:09] VITALS: BP 130/73
--- NOTE | 2020-10-26 11:43 | EKG ---
Test Date: 2020-10-25 Test Time: 20:08:16 [employer]: PRAVEEN MEASUREMENT RESULTS: Intervals: Rate: 72 SC: 164 QRSD: 96 QT: 402 QTc: 440 [place]: P: 31 SC: 164 QRS: 12 T: 62 INTERPRETIVE STATEMENTS: Normal sinus rhythm Normal ECG Compared to ECG 06/23/2020 19:13:23 No significant changes Electronically Signed On 10-26-20 11:42:04 CDT by Sundar Roa
== END 2020-10-25 22:51 | disposition home or self-care (01) ==
LOC: ER 14:17
DX: M54.9 Dorsalgia, unspecified (principal); I82.592 Chronic embolism and thrombosis of other specified deep vein of left lower extremity; W01.10XA Fall on same level from slipping, tripping and stumbling with subsequent striking against unspecified object, initial encounter; Y93.64 Activity, baseball; Z79.01 Long term (current) use of anticoagulants; Z94.0 Kidney transplant status; I10 Essential (primary) hypertension
CPT/HCPCS: 93005; 85025; 80048; 36415; 83735; 85610; 80076; 83880; 71250; 74176; 71045; 93970; 96374; 99284; J1940

== ENCOUNTER 2020-12-21 09:12 | Emergency (ER) | payer OTHER ==
--- OUTSIDE RECORDS SUMMARY | 2020-12-21 09:15 | XMS REPORT | Continuity of Care Document ---
:1965 Author Organization [facility] t Address [address] [place] [address] Care Team Providers Name Role Phone Akin Green MD Primary Care Physician Carole ALVAREZ, MGeorgina Attending Clinician Leanne ALVAREZ MGeorgina Attending Clinician Félix RN, D Attending Clinician Unavailable Only, Test Attending Clinician Unavailable CAREN Attending Clinician Unavailable Payers Payer Name Policy Type Policy Number Effective Date Expiration Date S ource Problems Condition Condition Condition Status Onset Resolution Last Treating Co mments Source Name Details Category Date Date Treatment Clinician Date Kidney Kidney Disease Active 2017-04 [facility] transplant transplant 0-08 st recipient recipient 00:00: [facility]osp [facility] 00 l Right Right Disease Active 2017-04 [facility] upper upper 0-08 st quadrant quadrant 00:00: Hospit a abdominal abdominal 00 l pain pain Disorder Disorder Disease Active 2017-04 [facility] di of liver of liver 0-06 st 00:00: Hospita 00 l Cholelithi Cholelithi Disease Active 2017-04 M ethodi asis asis 0-05 st 00:00: Hospita 00 l Allergies, Adverse Reactions, Alerts This patient has no known allergies or adverse reactions. Family History Family Member Diagnosis Comments Start Date Stop Date Source Natural father Hypertension [facility] Natural mother Heart disease [facility] Natural mother Hypertension [facility] Natural sister Diabetes [facility] Social History Social Habit Start Date Stop Date Quantity Comments Source Exposure to Not sure [facility] SARS-CoV-2 [facility] (event) Tobacco use and 2018-01-18 2018-01-18 Never used [facility] exposure 00:00:00 00:00:00 Hospital Alcohol intake 2018-01-18 2018-01-18 Current [facility] 00:00:00 00:00:00 non-drinker of Hospital alcohol (finding) Tobacco Comment 2018-01-15 2018-01-15 "Quit 2-3 months Met hodist 00:00:00 00:00:00 ago" Hospital Sex Assigned At [birth year] [facility] 00:00:00 00:00:00 Hospital Smoking Status Start Date Stop Date Source Former smoker 2018-01-18 00:00:00 2018-01-18 00:00:00 [facility] Current some 2016-03-26 00:00:00 [facility] smoker Center Medications Ordered Filled Start Stop Current Ordering Indication Dosage Frequency Signature Comments Components Source Medication Medication Date Date Medication? Clinician (SIG) Name Name pantoprazol 2017-04 Yes 40mg Q.5D Take 40 mg Methodi e 0-[address] (PROTONIX) 15:18: (two) Hospit a 40 MG EC 37 times a l tablet day. promethazin 2017-04 Yes 50mg Q12H Take 50 mg Methodi e 0-[address] (PHENERGAN) 15:18: every 12 Ho spita 50 MG 37 (twelve) l tablet hours as needed for nausea or vomiting. diltiazem 2017-04 Yes 240mg QD Take 240 Met hodi CD 0-[address] (CardIZEM 15:18: mouth Hospita CD) 240 MG 37 daily. l 24 hr capsule mycophenola 2017-04 Yes 500mg Q.5D Take 500 M ethodi te 0-[address] (CELLCEPT) 15:18: mouth 2 Hosp yonny 500 mg 37 (two) l tablet times a day. valsartan 2017-04 Yes 40mg QD Take 40 mg Me thodi (DIOVAN) 40 0-[address] MG tablet 15:18: daily. Hospit a 37 l Procedures Procedure Date / Time Performing Clinician Source Performed HC COMPLETE BLD COUNT 2020-11-26 14:11:00 Juan Klein [facility] W/AUTO DIFF MAGNESIUM LEVEL 2020-11-26 14:11:00 uJan Klein MGeorgina [facility] PHOSPHORUS LEVEL 2020-11-26 14:11:00 Juan Klein [facility] URIC ACID LEVEL 2020-11-26 14:11:00 Juan Klein MGeorgina [facility] LDH 2020-11-26 14:11:00 Juan Klein MGeorgina [facility] URINALYSIS SCREEN AND 2020-11-26 14:11:00 Juan Klein [facility] MICROSCOPY, WITH REFLEX TO CULTURE CREATININE LEVEL, URINE, 2020-11-26 14:11:00 Juan Klein [facility] RANDOM PROTEIN, URINE, RANDOM 2020-11-26 14:11:00 Juan Klein [facility] CYCLOSPORINE LEVEL, 2020-11-26 14:11:00 Juan Klein [facility] RANDOM PARATHYROID HORMONE 2020-11-26 14:11:00 Juan Klein [facility] VITAMIN D 25 HYDROXY 2020-11-26 14:11:00 Juan Klein [facility] LEVEL COMPREHENSIVE METABOLIC 2020-11-26 14:11:00 Juan Klein [facility] PANEL ESTIMATED GFR 2020-11-26 14:11:00 CaroleJuan [facility] URINE CULTURE 2020-11-26 14:11:00 CaroleJuan MGeorgina [facility] HC COMPLETE BLD COUNT 2020-09-13 15:29:00 Juan Klein [facility] W/AUTO DIFF MAGNESIUM LEVEL 2020-09-13 15:29:00 Juan Klein [facility] PHOSPHORUS LEVEL 2020-09-13 15:29:00 Juan Klein [facility] URIC ACID LEVEL 2020-09-13 15:29:00 Juan Klein MGeorgina [facility] LDH 2020-09-13 15:29:00 CaroleJuan [facility] URINALYSIS SCREEN AND 2020-09-13 15:29:00 Juan Klein MGeorgina [facility] MICROSCOPY, WITH REFLEX TO CULTURE CREATININE LEVEL, URINE, 2020-09-13 15:29:00 Juan Klein [facility] RANDOM PROTEIN, URINE, RANDOM 2020-09-13 15:29:00 Juan Klein [facility] METABOLIC 2020-09-13 15:29:00 Juan Klein [facility] PANEL CYCLOSPORINE LEVEL, 2020-09-13 15:29:00 Juan Klein [facility] RANDOM PARATHYROID HORMONE 2020-09-13 15:29:00 Juan Klein [facility] VITAMIN D 25 HYDROXY 2020-09-13 15:29:00 Juan Klein [facility] LEVEL ESTIMATED GFR 2020-09-13 15:29:00 Juan Klein MGeorgina [facility] SMEAR REVIEW 2020-09-13 15:29:00 Juan Klein MGeorgina [facility] URINE CULTURE 2020-09-13 15:29:00 Juan Klein MGeorgina [facility] HC COMPLETE BLD COUNT 2020-09-03 13:21:00 Juan Klein [facility] W/AUTO DIFF MAGNESIUM LEVEL 2020-09-03 13:21:00 Juan Klein MGeorgina [facility] PHOSPHORUS LEVEL 2020-09-03 13:21:00 Jaun Klein MGeorgina [facility] URIC ACID LEVEL 2020-09-03 13:21:00 Juan Klein MGeorgina [facility] LDH 2020-09-03 13:21:00 Juan Klein [facility] URINALYSIS SCREEN AND 2020-09-03 13:21:00 Juan Klein [facility] MICROSCOPY, WITH REFLEX TO CULTURE CREATININE LEVEL, URINE, 2020-09-03 13:21:00 Juan Klein [facility] RANDOM PROTEIN, URINE, RANDOM 2020-09-03 13:21:00 Juan Klein [facility] METABOLIC 2020-09-03 13:21:00 Juan Klein [facility] PANEL CYCLOSPORINE LEVEL, 2020-09-03 13:21:00 Juan Klein [facility] RANDOM PARATHYROID HORMONE 2020-09-03 13:21:00 Juan Klein [facility] VITAMIN D 25 HYDROXY 2020-09-03 13:21:00 Juan Klein [facility] LEVEL ESTIMATED GFR 2020-09-03 13:21:00 [facility] URINE CULTURE 2020-09-03 13:21:00 [facility] COMPREHENSIVE METABOLIC 2020-06-06 15:13:00 [facility] PANEL HC COMPLETE BLD COUNT 2020-06-06 15:13:00 [facility] W/AUTO DIFF MAGNESIUM LEVEL 2020-06-06 15:13:00 [facility] PHOSPHORUS LEVEL 2020-06-06 15:13:00 [facility] URIC ACID LEVEL 2020-06-06 15:13:00 [facility] LDH 2020-06-06 15:13:00 [facility] URINALYSIS SCREEN AND 2020-06-06 15:13:00 [facility] MICROSCOPY, WITH REFLEX TO CULTURE CREATININE LEVEL, URINE, 2020-06-06 15:13:00 [facility] RANDOM CYCLOSPORINE LEVEL, 2020-06-06 15:13:00 [facility] RANDOM PROTEIN, URINE, RANDOM 2020-06-06 15:13:00 [facility] ESTIMATED GFR 2020-06-06 15:13:00 [facility] URINE CULTURE 2020-06-06 15:13:00 [facility] ESTIMATED GFR 2020-01-30 12:52:00 [facility] URINE CULTURE 2020-01-30 12:52:00 [facility] COMPREHENSIVE METABOLIC 2020-01-30 12:52:00 [facility] PANEL HC COMPLETE BLD COUNT 2020-01-30 12:52:00 [facility] W/AUTO DIFF MAGNESIUM LEVEL 2020-01-30 12:52:00 [facility] PHOSPHORUS LEVEL 2020-01-30 12:52:00 [facility] URIC ACID LEVEL 2020-01-30 12:52:00 [facility] LDH 2020-01-30 12:52:00 Juan Klein [facility] URINALYSIS SCREEN AND 2020-01-30 12:52:00 Juan Klein [facility] MICROSCOPY, WITH REFLEX TO CULTURE CREATININE LEVEL, URINE, 2020-01-30 12:52:00 Juan Klein [facility] RANDOM PROTEIN, URINE, RANDOM 2020-01-30 12:52:00 Juan Klein [facility] CYCLOSPORINE LEVEL, 2020-01-30 12:52:00 Juan Klein [facility] RANDOM Plan of Care Planned Activity Planned Date Details Comments Source Future Scheduled Test COVID-19 VACCINE (1) [facility] [code = COVID-19 VACCINE (1)] Future Scheduled Test Hepatitis C screening [facility] (procedure) [code = 041426028] Future Scheduled Test COLONOSCOPY SCREENING [facility] [code = COLONOSCOPY SCREENING] Future Scheduled Test SHINGLES VACCINES (#1) [facility] [code = SHINGLES VACCINES (#1)] Future Scheduled Test INFLUENZA VACCINE [code [facility] = INFLUENZA VACCINE] Encounters Start End Encounter Admission Attending Care Care Encounter Source Date/Time Date/Time Type Type Clinicians Facility Department ID 2020-11-26 2020-11-26 Lab Carole, 1.2.840.1 [id number] [facility] 08:48:26 08:53:26 Juan Covarrubias 28003.1.[address] 3.430.2.7 Hospit a .3.281421 l .8 2020-11-26 2020-11-26 Outpatient CAROLE [facility] [id number] [place] 00:00:00 00:00:[address] 2020-11-26 2020-11-26 Travel 1.2.840.1 1.2.445.612 [id number] [facility] 00:00:00 00:00:[address] 3.430.2.7 0.2.7.3.698 Ho spita .3.510826 084.8 l .8 2020-11-15 2020-11-15 Travel 1.2.840.1 1.2.966.805 8954 [id number] [facility] 00:00:00 00:00:[address] 3.430.2.7 0.2.7.3.698 Ho spita .3.380214 084.8 l .8 2020-09-13 2020-09-13 Lab Carole, 1.2.840.1 [id number] [facility] 10:07:34 10:12:34 Juan Covarrubias [address]30.1.[address] 3.430.2.7 Hospit a .3.959152 l .8 2020-09-13 2020-09-13 Travel 1.2.840.1 1.2.995.529 [id number] [id number] [facility] 00:00:00 00:00:[address] 3.430.2.7 0.2.7.3.698 Ho spita .3.780610 084.8 l .8 2020-09-13 2020-09-13 [facility] [id number] [place] 00:00:00 00:00:[address] 2020-09-03 2020-09-03 Lab Carole, 1.2.840.1 [id number] Methodi 07:58:11 08:03:11 Juan Covarrubias [address]195.1.[address] 3.430.2.7 Hospit a .3.606104 l .8 2020-09-03 2020-09-03 Travel 1.2.840.1 1.2.077.112 3034 [id number] Method[facility] 00:00:00 00:00:[address] 3.430.2.7 0.2.7.3.698 Ho spita .3.791468 084.8 l .8 2020-09-03 2020-09-03 [facility] [id number] [place] 00:00:00 00:00:[address] 2020-08-29 2020-08-29 Travel 1.2.840.1 1.2.285.207 9640 [id number] [facility] 00:00:00 00:00:[address] 3.430.2.7 0.2.7.3.698 Ho spita .3.016404 084.8 l .8 2020-08-13 2020-08-13 Travel 1.2.840.1 1.2.493.843 9615 [id number] [facility] 00:00:00 00:00:[address] 3.430.2.7 0.2.7.3.698 Ho spita .3.860314 084.8 l .8 2020-07-30 2020-07-30 Travel 1.2.840.1 1.2.843.372 6049 [id number] [facility] 00:00:00 00:00:[address] 3.430.2.7 0.2.7.3.698 Ho spita .3.813646 084.8 l .8 2020-06-07 2020-06-07 Lab Leanne 1.2.840.1 [id number] [facility] 07:23:50 07:28:50 Philipp Covarrubias 75643.1.[address] 3.430.2.7 Hospit a .3.735609 l .8 2020-06-06 2020-06-06 [facility] LEANNE [facility] [id number] [place] 00:00:00 00:00:[address] 2020-06-06 2020-06-06 Travel 1.2.840.1 1.2.981.566 5907 [id number] Methodi 00:00:00 00:00:[address] 3.430.2.7 0.2.7.3.698 Ho spita .3.426073 084.8 l .8 2020-03-18 2020-03-18 Telephone WINSTON Heard 1.2.562.003 [id number] 00:00:00 00:00:00 Gabriela TARIQ 350.1.13.10 [facility] 4.2.7.2.686 [id number] 019 2020-03-16 2020-03-16 Laboratory Only, [facility] 1.2.840.114 7 [id number] 15:00:29 15:15:29 Only Test Karsten 350.1.13.10 [place] 4.2.7.2.686 [place] [id number] 353 2020-01-30 2020-01-30 Lab Carole, 1.2.840.1 [id number] [id number] [facility] 04:42:28 04:47:28 Juan [address]arrubias [address]245.1.[address] 3.430.2.7 Hospit a .3.751894 l .8 2020-01-30 2020-01-30 [facility] [id number] [place] 00:00:00 00:00:[address] 2020-01-30 2020-01-30 Travel 1.2.840.1 1.2.469.422 0350 [id number] [facility] 00:00:00 00:00:[address] 3.430.2.7 0.2.7.3.698 Ho spita .3.416816 084.8 l .8 2020-01-23 2020-01-23 Lab Carole, 1.2.840.1 [id number] 2100 [id number] [facility] 04:55:00 05:00:00 Juan Covarrubias [address]807.1.[address] 3.430.2.7 Hospit a .3.022972 l .8 2020-01-23 2020-01-23 [facility] [id number] [place] 00:00:00 00:00:[address] 2020-01-23 2020-01-23 Travel 1.2.840.1 1.2.508.257 0609 [id number] [facility] 00:00:00 00:00:[address] 3.430.2.7 0.2.7.3.698 Ho spita .3.742631 084.8 l .8 2020-01-09 2020-01-09 Lab Carole, 1.2.840.1 [id number] 2099 [id number] [facility] 05:05:00 05:10:00 Juan Covarrubias 21462.1.[address] 3.430.2.7 Hospit a .3.251807 l .8 2020-01-09 2020-01-09 Outpatient CAROLE, [facility] [id number] [place] 00:00:00 00:00:[address] 2020-01-09 2020-01-09 Travel 1.2.840.1 1.2.530.628 3088 [id number] [facility] 00:00:00 00:00:[address] 3.430.2.7 0.2.7.3.698 Ho spita .3.110616 084.8 l .8 2019-07-04 2019-07-04 Outpatient Usha FABIAN [facility] [id number] [place] 00:00:00 00:00:[address] Results Test Description Test Time Test Comments Results Result Comments Source Protein, urine, random 2020-11-26 21:24:19 Test Item Value Reference Range Interpretation Comme nts Protein, urine random (test code = 2888-6) 484 mg/dL [facility], [facility], [id number] 16:47:21 Test Item Value Reference Range Interpretation Comments Creatinine, urine, random (test 201 mg/dL code = 69844-6) [facility] and microscopy, with reflex to culture 2020-11-26 15:18:17 Test Item Value Reference Range Interpretation Comments Specimen site (test Clean catch code = 6736517) Color, UA (test code = Yellow 5778-6) Appearance, UA (test Clear code = 5767-9) Specific gravity, UA 1.001-1.035 (test code = 5811-5) pH, UA (test code = 5.0-8.5 5803-2) Protein, UA (test code 3+ Negative A = 73324-8) Glucose, UA (test code 1+ Negative A = 83546-7) Ketones, UA (test code Negative Negative = 2514-8) Bilirubin, UA (test Negative Negative code = 5770-3) Blood, UA (test code = Moderate Negative A 5794-3) Nitrite, UA (test code Negative Negative = 5802-4) Urobilinogen, UA (test <2.0 <2.0 code = 62990-7) Leukocyte esterase, UA Negative Negative (test code = 5799-2) WBC, UA (test code = See_Comment [Autom ated 5821-4) message] The sy stem which generated this result transmitted reference range : 0 - 1 /HPF. The reference range was not used to interpret this result as normal/abnormal . RBC, UA (test code = See_Comment H [Autom ated 77434-9) message] The sy stem which generated this result transmitted reference range : 0 - 5 /HPF. The reference range was not used to interpret this result as normal/abnormal . Bacteria, UA (test code None seen None seen = 71536-9) Yeast, UA (test code = None seen 46954-2) Yeast with None seen pseudohyphae, UA (test code = 85252-5) Hyaline casts, UA (test See_Comment [Au tomated code = 5796-8) message] The system which generated this result transmitted reference range : /LPF. The refer ence range was not u sed to interpret th is result as normal/abnormal . Lab Interpretation Abnormal (test code = 28103-4) [facility] [id number] 14:41:27 Test Item Value Reference Range Interpretation Comments Urine culture (test SEE COMMENT Bacteriu deandre screen code = 0985726) negative. [facility]2019-09-17 04:32:00 Test Item Value Reference Range Interpretation Comments SARS-COV2/RT-PCR (test Not Detected Not Detected, Negative code = 0637509) SARS-COV-[address] [facility] (test code = 1573249) Negative results do not preclude SARS-CoV-2 infection [...] of the Act.Fact Sheet for Healthcare Pro viders:https://www.Worklight/Documents/Xpert%20Xpress%20SARS%20CoV-2/Fact%20Sh eets/3023802%61XTSI-FAJ-3%20HEALTHCARE%20PROVIDERS%20FACT%20SHEET.pdfFact Sheet for Healthcare Patients:https://www.Cherry Bugs/Documents/Xpert%20Xpress%20SARS%20CoV-2/Fact%20Sheets/3023801%20SARS-COV -2%20PATIENT%20FACT%20SHEET.pdfPerforming Laboratory:[facility] [place] [address]
--- NOTE | 2020-12-21 12:22 | RAD REPORT ---
EXAM DESCRIPTION: RAD - Foot Left 3 View - 12/21/2020 12:15 pm CLINICAL HISTORY: PAIN COMPARISON: No comparisons FINDINGS: No acute fracture. No malalignment. Mild midfoot degenerative changes. Enthesopathic theodore es at the calcaneus may be from prior Achilles tendon injury. Calcaneal spurring. Mild spurring along the anterior aspect of the tibia. IMPRESSION: No acute osseous abnormality involving the left foot.
[2020-12-21] MEDS ORDERED: HYDROCODONE/APAP 7.5/325 MG TAB ONE (13:47)
--- NOTE | 2020-12-21 13:50 | RAD REPORT ---
EXAM DESCRIPTION: US - Extremity Venous Uni Ltd - 12/21/2020 1:36 pm CLINICAL HISTORY: PAINin left leg with history of left leg DVT COMPARISON: DVT study October 2020 TECHNIQUE: Real-time sonographic evaluation of the right lower extremity deep venous systems was per formed. FINDINGS: Normal compressibility, flow augmentation, phasic flow and spontaneous flow are identified in the left lower extremity common femoral, superficial femoral, and posterior tibial veins. No intr aluminal filling defects seen in these vessels. In the left popliteal vein there is echogenic material present filling most of the lumen. Vessel does not compress and Doppler evaluation shows poor blood flow through this region. Patient has a history of left lower extremity deep venous thrombosis in findings are similar to the October 2020 study. IMPRESSION: Chronic left popliteal vein deep venous thrombosis. No acute deep venous thrombosis. No evidence of propagation of the left popliteal vein finding.
--- NOTE | 2020-12-21 14:02 | ER ---
Nurse's Notes [facility] Name: Shoaib Freitas Jr Age: 55 yrs Sex: Male : 1965 Arrival Date: 12/21/2020 Time: 09:16 Bed DX1 Private MD: Diagnosis: Achilles tendinitis, left leg;Chronic embolism and thrombosis of other specified deep vein of left lower extremity Presentation: 12/21 09:35 Chief complaint: Patient states: Pain to heel of L foot that began 1 month ago. ss Coronavirus screen: Client denies travel out of the [place] in the last 14 days. Ebola Screen: Patient denies exposure to infectious person. Patient denies travel to an Ebola-affected area in the 21 days before illness onset. Initial Sepsis Screen: Does the patient meet any 2 criteria? No. Patient's initial sepsis screen is negative. Does the patient have a suspected source of infection? No. Patient's initial sepsis screen is negative. Risk Assessment: Do you want to hurt yourself or someone else? Patient reports no desire to harm self or others. Onset of symptoms was November 2020. 09:35 Method Of Arrival: Ambulatory ss 09:35 Acuity: COBY 4 ss Historical: - Allergies: 09:36 No Known Allergies; ss - PMHx: 09:36 Gall Stones; history of dialysis; Hypertension; kidney transplant; Pancreatitis; ss - Immunization history:: Client reports receiving the 2nd dose of the Covid vaccine. - Social history:: Smoking status: Patient denies any tobacco usage or history of. Screenin:03 Abuse screen: Denies threats or abuse. Denies injuries from another. Nutritional ss screening: No deficits noted. Tuberculosis screening: Never had TB. Fall Risk None identified. Assessment: 12:00 General: Appears in no apparent distress. comfortable, Behavior is calm, cooperative, ss Pt is laughing and joking with ED staff. . Neuro: Level of Consciousness is awake, alert, obeys commands, Oriented to person, place, time, situation. Respiratory: Airway is patent Respiratory effort is even, unlabored, Respiratory pattern is regular, symmetrical. Derm: Skin is intact, is healthy with good turgor, Skin is dry, Skin is pink, warm \T\ dry. normal. Vital Signs: 09:35 BP 124 / 92; Pulse 80; Resp 18; Temp 98.0(TE); Pulse Ox 94% on R/A; Weight 108.86 kg; ss Height 5 ft. 11 in. (180.34 cm); Pain 8/10; 09:35 Body Mass Index 33.47 (108.86 kg, 180.34 cm) ED Course: 09:16 Patient arrived in ED. ds1 09:36 Triage completed. ss 09:36 Arm band placed on right wrist. ss 12:00 Patient has correct armband on for positive identification. Bed in low position. Call ss light in reach. 12:15 Foot Left 3 View XRAY In Process Unspecified. EDMS 12:21 Vidal Dejesus PA is PHCP. cp 12:21 Panfilo Peter MD is Attending Physician. cp 12:46 Tere Powell, PRINCESS is Primary Nurse. ss 13:25 US Extremity Venous Unilateral Ltd In Process Unspecified. EDMS 13:59 Brian Gomez MD is Referral Physician. cp 14:25 No provider procedures requiring assistance completed. Patient did not have IV access ss during this emergency room visit. Administered Medications: 13:51 Drug: Hydrocodone-Acetaminophen (7.5 mg-325 mg) 1 tabs Route: PO; ss 14:03 Follow up: Response: No adverse reaction; Medication administered at discharge. Outcome: 14:02 Discharge ordered by . cp 14:25 Discharged to home ambulatory. ss 14:25 Condition: good 14:25 Discharge instructions given to patient, family, Instructed on discharge instructions, follow up and referral plans. Demonstrated understanding of instructions, follow-up care, medications, Prescriptions given X 1. 14:26 Patient left the ED. ss Signatures: Dispatcher [employer] EDVT Holli Sherman ds1 Tere Powell, RN RN ss Vidal Deejsus PA PA cp
--- NOTE | 2020-12-21 14:03 | EDPHYS ---
Physician Documentation [facility] Name: Shoaib Freitas Jr Age: 55 yrs Sex: Male : 1965 Arrival Date: 12/21/2020 Time: 09:16 Bed DX1 Private MD: ED Physician Panfilo Peter HPI: 12/21 12:30 This 55 yrs old Black Male presents to ER via Ambulatory with complaints of Foot Pain - cp Heel Pain. 12:30 The patient presents with pain. The complaints affect the left heel. Onset: The cp symptoms/episode began/occurred 1 month(s) ago. 12:30 Context: resulted from an unknown cause, the patient can fully bear weight, the patient cp is able to ambulate, with moderate difficulty, Problem is a result from a previous injury: No. 12:30 Associated signs and symptoms: Pertinent positives: Achilles tenderness, Pertinent cp negatives fever, numbness, warmth. Treatment prior to arrival includes: no previous treatment. Historical: - Allergies: 09:36 No Known Allergies; ss - PMHx: 09:36 Gall Stones; history of dialysis; Hypertension; kidney transplant; Pancreatitis; ss - Immunization history:: Client reports receiving the 2nd dose of the Covid vaccine. - Social history:: Smoking status: Patient denies any tobacco usage or history of. ROS: 12:35 MS/extremity: Positive for pain, swelling, tenderness, of the left heel. cp 12:35 Constitutional: Negative for body aches, chills, fever. cp 12:35 Cardiovascular: Negative for chest pain, edema. cp 12:35 Respiratory: Negative for cough, shortness of breath. 12:35 Skin: Negative for cellulitis, rash. 12:35 Neuro: Negative for numbness. 12:35 All other systems are negative. Exam: 12:40 Constitutional: The patient appears in no acute distress, alert, awake, non-toxic, well cp developed, well nourished. 12:40 Head/Face: Normocephalic, atraumatic. cp 12:40 Chest/axilla: Inspection: normal. 12:40 Cardiovascular: Rate: normal. 12:40 Respiratory: the patient does not display signs of respiratory distress, Respirations: normal, no use of accessory muscles, no retractions. 12:40 Back: pain, is absent. 12:40 Musculoskeletal/extremity: Extremities: grossly normal except: noted in the posterior aspect of left heel: pain, swelling, tenderness, There is no evidence of erythema, Perfusion: the extremity is normally perfused throughout, tenderness of distal achilles. 12:40 Skin: cellulitis, is not appreciated, no rash present. Vital Signs: 09:35 BP 124 / 92; Pulse 80; Resp 18; Temp 98.0(TE); Pulse Ox 94% on R/A; Weight 108.86 kg; ss Height 5 ft. 11 in. (180.34 cm); Pain 8/10; 09:35 Body Mass Index 33.47 (108.86 kg, 180.34 cm) ss MDM: 12:26 Patient medically screened. cp 13:00 Differential diagnosis: tendonitis, cellulitis, abscess. cp 14:01 Data reviewed: vital signs, nurses notes, radiologic studies, plain films, ultrasound. cp 14:01 Test interpretation: by ED physician or midlevel provider: plain radiologic studies. cp Counseling: I had a detailed discussion with the patient and/or guardian regarding: the historical points, exam findings, and any diagnostic results supporting the discharge/admit diagnosis, radiology results, the need for outpatient follow up, a orthopedic surgeon, to return to the emergency department if symptoms worsen or persist or if there are any questions or concerns that arise at home. Response to treatment: the patient's symptoms have mildly improved after treatment, and as a result, I will discharge patient. 12/21 10:12 Order name: Foot Left 3 View XRAY; Complete Time: 12:30 iw 12/21 12:34 Order name: US Extremity Venous Unilateral Ltd; Complete Time: 13:54 cp 12/21 13:31 Order name: Walking boot; Complete Time: 14:03 cp Administered Medications: 13:51 Drug: Hydrocodone-Acetaminophen (7.5 mg-325 mg) 1 tabs Route: PO; ss 14:03 Follow up: Response: No adverse reaction; Medication administered at discharge. Disposition: 14:15 Chart complete. cp 22:04 Co-signature as Attending Physician, Panfilo Peter MD I agree with the assessment and kdr plan of care. Disposition Summary: 12/21/20 14:02 Discharge Ordered Location: Home cp Problem: new cp Symptoms: have improved cp Condition: Stable cp Diagnosis - Achilles tendinitis, left leg cp - Chronic embolism and thrombosis of other specified deep vein of left lower extremitycp Followup: cp - With: Brian Gomez MD - When: 1 week - Reason: Recheck today's complaints Discharge Instructions: - Discharge Summary Sheet cp - Achilles Tendinitis cp - Deep Vein Thrombosis cp Forms: - Medication Reconciliation Form cp - Thank You Letter cp - Antibiotic Education cp - Prescription Opioid Use cp Prescriptions: - Tramadol 50 mg Oral Tablet - take 1 tablet by ORAL route every 8 hours as needed; 12 tablet; Refills: 0, cp Product Selection Permitted Signatures: Dispatcher [employer] EDPanfilo Robledo MD MD kdr Smirch, Shelby, RN RN ss Vidal Dejesus PA PA cp
[2020-12-21 14:31] VITALS: BP 124/92; TEMP 98; O2SAT 94
== END 2020-12-21 14:26 | disposition home or self-care (01) ==
LOC: ER 09:12
DX: M76.62 Achilles tendinitis, left leg (principal); I82.592 Chronic embolism and thrombosis of other specified deep vein of left lower extremity; I10 Essential (primary) hypertension; Z94.0 Kidney transplant status
CPT/HCPCS: 93971; 99283

== ENCOUNTER 2021-03-13 08:14 | Inpatient (IN) | payer OTHER ==
--- OUTSIDE RECORDS SUMMARY | 2021-03-13 08:18 | XMS REPORT | Continuity of Care Document ---
:1965 Author Organization [facility] t Address [address] [place] [address] [address]. [address] [place] [address] Care Team Providers Name Role Phone Akin Green MD Primary Care Physician CAROLE Attending Clinician Unavailable LEANNE Attending Clinician Unavailable Félix SÁNCHEZ, Sharla Attending Clinician Unavailable Only, Test Attending Clinician Unavailable Shadi ALVAREZ, Maria Elena Attending Clinician Maria Elena [facility] Attending Clinician Unavailable Payers Payer Name Policy [...] Hospita 00 l Allergies, Adverse Reactions, Alerts Allergy Allergy Status Severity Reaction(s) Onset Inactive Treating Comm ents Source Name Type Date Date Clinician NO KNOWN Drug Active Univers ALLERGIE [facility] Family History Family Member Diagnosis Comments Start Date Stop Date Source Natural father Hypertension [facility] Natural mother Heart disease [facility] Natural mother Hypertension [facility] Natural sister Diabetes [facility] Social History Social Habit Start Date Stop Date Quantity Comments Source Exposure to Not sure [facility] SARS-CoV-2 (event) Sex Assigned At [facility] Tobacco use and 2018-01-18 2018-01-18 Never used [facility] exposure 00:00:00 00:00:00 Alcohol intake 2018-01-18 2018-01-18 Current [facility] 00:00:00 00:00:00 non-drinker of alcohol (finding) Tobacco Comment 2018-01-15 2018-01-15 "Quit 2-[address] [facility] 00:00:00 00:00:00 ago" Smoking Status Start Date Stop Date Source Unknown if ever smoked General acute hospital Former smoker 2018-01-18 00:00:00 2018-01-18 00:00:00 [facility] Current some 2016-03-26 00:00:00 [facility] smoker Center Medications Ordered Filled [...] Time Performing Clinician Source Performed URINE CULTURE 2020-11-26 14:11:00 Juan Klein [facility] COMPLETE BLD COUNT 2020-11-26 14:11:00 Juan Klein [facility] W/AUTO DIFF MAGNESIUM LEVEL 2020-11-26 14:11:00 Juan Klein [facility] PHOSPHORUS LEVEL 2020-11-26 14:11:00 Juan Klein [facility] URIC ACID LEVEL 2020-11-26 14:11:00 Juan Klein [facility] LDH 2020-11-26 14:11:00 Juan Klein [facility] URINALYSIS SCREEN AND 2020-11-26 14:11:00 Juan Klein [facility] MICROSCOPY, WITH REFLEX TO CULTURE CREATININE LEVEL, URINE, 2020-11-26 14:11:00 Juan Klein [facility] RANDOM PROTEIN, URINE, RANDOM 2020-11-26 14:11:[address] [facility] CYCLOSPORINE LEVEL, 2020-11-26 14:11:00 Juan Klein [facility] RANDOM PARATHYROID HORMONE 2020-11-26 14:11:00 Juan Klein [facility] VITAMIN D 25 HYDROXY 2020-11-26 14:11:00 Juan Klein [facility] LEVEL COMPREHENSIVE METABOLIC 2020-11-26 14:11:00 Juan Klein [facility] PANEL ESTIMATED GFR 2020-11-26 14:11:00 Juan Klein [facility] URINE CULTURE 2020-09-13 15:29:00 Juan Klein [facility] HC COMPLETE BLD COUNT 2020-09-13 15:29:00 Juan Klein [facility] W/AUTO DIFF MAGNESIUM LEVEL 2020-09-13 15:29:00 Juan Klein [facility]Georg[facility] PHOSPHORUS LEVEL 2020-09-13 15:29:00 Juan Klein [facility] URIC ACID LEVEL 2020-09-13 15:29:00 Juan Klein MGeorgina [facility] LDH 2020-09-13 15:29:00 Juan Klein [facility]Geog[facility] URINALYSIS SCREEN AND 2020-09-13 15:29:00 Juan Klein [facility] MICROSCOPY, WITH REFLEX TO CULTURE CREATININE LEVEL, URINE, 2020-09-13 15:29:00 Juan Klein [facility] RANDOM PROTEIN, URINE, RANDOM 2020-09-13 15:29:[address] [facility] COMPREHENSIVE METABOLIC 2020-09-13 15:29:00 Juan Klein [facility] PANEL CYCLOSPORINE LEVEL, 2020-09-13 15:29:00 Juan Klein [facility] RANDOM PARATHYROID HORMONE 2020-09-13 15:29:00 Juan Klein [facility] VITAMIN D 25 HYDROXY 2020-09-13 15:29:00 Juan Klein [facility] LEVEL ESTIMATED GFR 2020-09-13 15:29:00 Juan Klein MGeorgina [facility] SMEAR REVIEW 2020-09-13 15:29:00 Juan Klein [facility] URINE CULTURE 2020-09-03 13:21:00 Juan Klein [facility] HC COMPLETE BLD COUNT 2020-09-03 13:21:00 Juan Klein [facility] W/AUTO DIFF MAGNESIUM LEVEL 2020-09-03 13:21:00 Juan Klein [facility]ina [facility] PHOSPHORUS LEVEL 2020-09-03 13:21:00 [facility] URIC ACID LEVEL 2020-09-03 13:21:00 Juan Klein [facility] LDH 2020-09-03 13:21:00 CaroleJuan [facility] URINALYSIS SCREEN AND 2020-09-03 13:21:00 Juan Klein [facility] MICROSCOPY, WITH REFLEX TO CULTURE CREATININE LEVEL, URINE, 2020-09-03 13:21:00 Juan Klein [facility] RANDOM PROTEIN, URINE, RANDOM 2020-09-03 13:21:00 [facility] Klein [facility] METABOLIC 2020-09-03 13:21:00 Juan Klein [facility] PANEL CYCLOSPORINE LEVEL, 2020-09-03 13:21:00 Juan Klein [facility] RANDOM PARATHYROID HORMONE 2020-09-03 13:21:00 Juan Klein [facility] VITAMIN D 25 HYDROXY 2020-09-03 13:21:00 Amber Kleinan [facility] LEVEL ESTIMATED GFR 2020-09-03 13:21:00 [facility] URINE CULTURE 2020-06-06 15:13:00 [facility] COMPREHENSIVE METABOLIC 2020-06-06 15:13:00 [facility] PANEL HC COMPLETE BLD COUNT 2020-06-06 15:13:00 [facility] W/AUTO DIFF MAGNESIUM LEVEL 2020-06-06 15:13:00 [facility] PHOSPHORUS LEVEL 2020-06-06 15:13:00 [facility] URIC ACID LEVEL 2020-06-06 15:13:00 [facility] LDH 2020-06-06 15:13:00 [facility] URINALYSIS SCREEN AND 2020-06-06 15:13:00 [facility] MICROSCOPY, WITH REFLEX TO CULTURE CREATININE LEVEL, URINE, 2020-06-06 15:13:00 [facility] RANDOM CYCLOSPORINE LEVEL, 2020-06-06 15:13:00 [facility] RANDOM PROTEIN, URINE, RANDOM 2020-06-06 15:13:00 [facility] ESTIMATED GFR 2020-06-06 15:13:00 [facility] URINE CULTURE 2020-01-30 12:52:00 [facility] COMPREHENSIVE METABOLIC 2020-01-30 12:52:00 [facility] PANEL HC COMPLETE BLD COUNT 2020-01-30 12:52:00 [facility] W/AUTO DIFF MAGNESIUM LEVEL 2020-01-30 12:52:00 [facility] PHOSPHORUS LEVEL 2020-01-30 12:52:00 [facility] URIC ACID LEVEL 2020-01-30 12:52:00 [facility] LDH 2020-01-30 12:52:00 [facility] URINALYSIS SCREEN AND 2020-01-30 12:52:00 Juan Klein [facility] MICROSCOPY, WITH REFLEX TO CULTURE CREATININE LEVEL, URINE, 2020-01-30 12:52:00 Juan Klein [facility] RANDOM PROTEIN, URINE, RANDOM 2020-01-30 12:52:[address] [facility] CYCLOSPORINE LEVEL, 2020-01-30 12:52:00 Juan Klein [facility] RANDOM ESTIMATED GFR 2020-01-30 12:52:00 CaroleJuan MGeorgina [facility] Plan of Care Planned Activity Planned Date Details Comments Source Future Scheduled Test COVID-19 VACCINE (1) [facility] [code = COVID-19 VACCINE (1)] Future Scheduled Test Hepatitis C screening [facility] (procedure) [code = 336546646] Future Scheduled Test COLONOSCOPY SCREENING [facility] [code = COLONOSCOPY SCREENING] Future Scheduled Test SHINGLES VACCINES (#1) [facility] [code = SHINGLES VACCINES (#1)] Future Scheduled Test INFLUENZA VACCINE [code [facility] = INFLUENZA VACCINE] Encounters Start End Encounter Admission Attending Care Care Encounter Source Date/Time Date/Time Type Type Clinicians Facility Department ID 2021-03-11 2021-03-11 Outpatient CAROLE, [facility] [id number] [place] 00:00:00 00:00:[address] 2021-02-28 2021-02-28 Outpatient LEANNE, [facility] [id number] [place] 00:00:00 00:00:[address] 2020-11-26 2020-11-26 Lab Carole, 1.2.840.1 [id number] [facility] 08:48:26 08:53:26 [address].1.[address] 3.430.2.7 Hospit a .3.132384 l .8 2020-11-26 2020-11-26 Travel 1.2.840.1 1.2.777.317 4051 [id number] [facility] 00:00:00 00:00:[address] 3.430.2.7 0.2.7.3.698 Ho spita .3.998185 084.8 l .8 2020-11-15 2020-11-15 Travel 1.2.840.1 1.2.341.855 5124 [id number] [facility] 00:00:00 00:00:[address] 3.430.2.7 0.2.7.3.698 Ho spita .3.158114 084.8 l .8 2020-09-13 2020-09-13 Lab Carole, 1.2.840.1 [id number] 2099 [id number] [facility] 10:07:34 10:12:34 Juan Covarrubias [address]82.1.[address] 3.430.2.7 Hospit a .3.783966 l .8 2020-09-13 2020-09-13 Travel 1.2.840.1 1.2.491.928 2781 [id number] [facility] 00:00:00 00:00:[address] 3.430.2.7 0.2.7.3.698 Ho spita .3.513830 084.8 l .8 2020-09-03 2020-09-03 Sol Klein, 1.2.840.1 [id number] [facility] 07:58:11 08:03:11 Juan [address]ubias [address]15.1.[address] 3.430.2.7 Hospit a .3.032335 l .8 2020-09-03 2020-09-03 Travel 1.2.840.1 1.2.076.524 5186 [id number] [facility] 00:00:00 00:00:[address] 3.430.2.7 0.2.7.3.698 Ho spita .3.721630 084.8 l .8 2020-08-29 2020-08-29 Travel 1.2.840.1 1.2.638.912 5150 [id number] [facility] 00:00:00 00:00:[address] 3.430.2.7 0.2.7.3.698 Ho spita .3.120072 084.8 l .8 2020-08-13 2020-08-13 Travel 1.2.840.1 1.2.181.816 7742 [id number] [facility] 00:00:00 00:00:[address] 3.430.2.7 0.2.7.3.698 Ho spita .3.434914 084.8 l .8 2020-07-30 2020-07-30 Travel 1.2.840.1 1.2.026.145 2756 [id number] [facility] 00:00:00 00:00:[address] 3.430.2.7 0.2.7.3.698 Ho spita .3.487619 084.8 l .8 2020-06-07 2020-06-07 Lab Leanne, 1.2.840.1 [id number] [facility] 07:23:50 07:28:50 Philipp Covarrubias 37035.1.[address] 3.430.2.7 Hospit a .3.364355 l .8 2020-06-06 2020-06-06 Travel 1.2.840.1 1.2.049.720 3955 [id number] [facility] 00:00:00 00:00:[address] 3.430.2.7 0.2.7.3.698 Ho spita .3.760046 084.8 l .8 2020-03-18 2020-03-18 Telephone WINSTON Heard 1.2.208.128 [id number] [id number] Univers 00:00:00 00:00:00 Gabriela TARIQ 350.1.13.[address] [facility] 4.2.7.2.686 Devon as [id number] [address] 2020-03-18 2020-03-18 Telephone WINSTON Heard 1.2.844.155 [id number] 00:00:00 00:00:00 Gabriela TARIQ 350.1.13.10 [facility] 4.2.7.2.686 [id number] 019 2020-03-16 2020-03-16 Laboratory Only, [facility] Test [facility] 1.2.840. 114 [id number] Univers 15:00:29 15:15:29 Only [facility] [id number] [address] 2020-03-16 2020-03-16 Laboratory Only, [facility] 1.2.840.114 [id number] 15:00:29 15:15:29 Only Test Karsten 350.1.13.10 [place] 4.2.7.2.686 [place] [id number] 2020-03-16 2020-03-16 Outpatient Livia HSU, [facility] [id number] Univers 15:15:00 15:15:00 [facility] 2020-01-30 2020-01-30 Lab Carole, 1.2.840.1 [id number] Methodi 04:42:28 04:47:28 Juan Covarrubias [address]387.1.[address] 3.430.2.7 Hospit a .3.940218 l .8 2020-01-30 2020-01-30 Travel 1.2.840.1 1.2.797.074 0019 [id number] [facility]i 00:00:00 00:00:[address] 3.430.2.7 0.2.7.3.698 Ho spita .3.122974 084.8 l .8 2020-01-23 2020-01-23 Lab Carole, 1.2.840.1 [id number] 2100 [id number] [facility] 04:55:00 05:00:00 Juan Covarrubias [address]87.1.[address] 3.430.2.7 Hospit a .3.107771 l .8 2020-01-23 2020-01-23 Travel 1.2.840.1 1.2.344.382 8928 [id number] [facility] 00:00:00 00:00:[address] 3.430.2.7 0.2.7.3.698 Ho spita .3.211113 084.8 l .8 2020-01-09 2020-01-09 Lab Carole, 1.2.840.1 [id number] 2099 [id number] [facility] 05:05:00 05:10:00 Juan Covarrubias 24151.1.[address] 3.430.2.7 Hospit a .3.315631 l .8 2020-01-09 2020-01-09 Travel 1.2.840.1 1.2.405.858 7189 [id number] [facility]i 00:00:00 00:00:[address] 3.430.2.7 0.2.7.3.698 Ho spita .3.171868 084.8 l .8 Results Test Description Test Time Test Comments Results Result Comments Source Protein, urine, random 2020-11-26 21:24:19 Test Item Value Reference Range Interpretation Comme nts Protein, urine random (test code = 2888-6) 484 mg[facility]dL [facility], [id number] 16:47:21 Test Item Value Reference Range Interpretation Comments Creatinine, urine, random (test 201 mg/dL code = 83796-0) [facility], with reflex to culture 2020-11-26 15:18:17 Test Item Value Reference Range Interpretation Comments Specimen site (test Clean catch code = 3356146) Color, UA (test code = Yellow 5778-6) Appearance, UA (test Clear code = 5767-9) Specific gravity, UA 1.001-1.035 (test code = 5811-5) pH, UA (test code = 5.0-8.5 5803-2) Protein, UA (test code 3+ Negative A = 96830-2) Glucose, UA (test code 1+ Negative A = 93099-7) Ketones, UA (test code Negative Negative = 2514-8) Bilirubin, UA (test Negative Negative code = 5770-3) Blood, UA (test code = Moderate Negative A 5794-3) Nitrite, UA (test code Negative Negative = 5802-4) Urobilinogen, UA (test <2.0 <2.0 code = 39953-1) Leukocyte esterase, UA Negative Negative (test code = 5799-2) WBC, UA (test code = See_Comment [Autom ated 5821-4) message] The sy stem which generated this result transmitted reference range : 0 - 1 /HPF. The reference range was not used to interpret this result as normal/abnormal . RBC, UA (test code = See_Comment H [Autom ated 59118-9) message] The sy stem which generated this result transmitted reference range : 0 - 5 /HPF. The reference range was not used to interpret this result as normal/abnormal . Bacteria, UA (test code None seen None seen = 52767-4) Yeast, UA (test code = None seen 90196-7) Yeast with None seen pseudohyphae, UA (test code = 09483-3) Hyaline casts, UA (test See_Comment [Au tomated code = 5796-8) message] The system which generated this result transmitted reference range : /LPF. The refer ence range was not u sed to interpret th is result as normal/abnormal . Lab Interpretation Abnormal (test code = 57646-2) [facility] nppqmic0060-11-26 14:41:27 Test Item Value Reference Range Interpretation Comments Urine culture (test SEE COMMENT Bacteriu deandre screen code = 4496098) negative. [facility])2019-09-17 04:32:00 Test Item Value Reference Range Interpretation Comments SARS-COV2/RT-PCR (test Not Detected Not Detected, Negative code = 7039837) SARS-COV-2 PERFORMING LAB [facility] (test code = 4880441) Negative results do not preclude SARS-CoV-2 infection [...] of the Act.Fact Sheet for Healthcare Pro viders:https://www.[employer]/Documents/Xpert%20Xpress%20SARS%20CoV-2/Fact%20Sh eets/3023802%32ZJSA-ZGM-0%20HEALTHCARE%20PROVIDERS%20FACT%20SHEET.pdfFact Sheet for Healthcare Patients:https://www.[employer]/Documents/Xpert%20Xpress%20SARS%20CoV-2/Fact%20Sheets/3023801%20SARS-COV -2%20PATIENT%20FACT%20SHEET.pdfPerforming Laboratory:[facility] [place] [address]
[2021-03-13] MEDS ORDERED: NA CHLORIDE 0.9% 1,000 ML ONE ×2 (08:37→10:21)
--- NOTE | 2021-03-13 08:55 | RAD REPORT ---
EXAM DESCRIPTION: CT - Head Brain Wo Cont - 03/13/2021 8:48 am CLINICAL HISTORY: SYNCOPE COMPARISON: Head Brain Wo Cont dated 02/28/2017 TECHNIQUE: All CT scans are performed using dose optimization technique as appropriate and may inclu de automated exposure control or mA/KV adjustment according to patient size. FINDINGS: No intracranial hemorrhage, hydrocephalus or extra-axial fluid collection.Mild chronic sma ll vessel ischemic changes. The paranasal sinuses and mastoids are clear. The calvarium is intact. IMPRESSION: No acute intracranial abnormality.
--- NOTE | 2021-03-13 09:00 | RAD REPORT ---
EXAM DESCRIPTION: CTStone Protocol - 03/13/2021 8:48 am CLINICAL HISTORY: ABD PAIN COMPARISON: Stone Protocol dated 06/23/2020; Abdomen Pelvis W Contrast dated 02/02/2020; Abdomen Pelvis W Contrast dated 06/24/2019; Abdomen Pelvis W Contrast dated 05/31/2019 TECHNIQUE: CT of the abdomen and pelvis was performed. All CT scans are performed using dose optimization technique as appropriate and may include automated exposure control or mA/KV adjustment according to patient size. FINDINGS: Lower chest: No acute abnormality. Liver: Hepatomegaly with steatosis. Biliary: Cholecystectomy. Stomach: No significant focal abnormality. Duodenum: No significant focal abnormality. Pancreas: No significant abnormality. Spleen: No significant abnormality. Adrenal: No suspicious lesions. Kidney/ureter: No hydronephrosis. No renal calculi. Severely atrophic [place] kidneys. Left iliac kaitlin a renal transplant kidney. Mild nonspecific left renal transplant perinephric stranding is unchanged. No hydronephrosis in the transplant kidney. Retroperitoneum: No retroperitoneal adenopathy. Vascular: No aneurysm. Bowel: No significant focal abnormality. Normal appendix. Peritoneum: No ascites or free air. Bladder: Grossly unremarkable. Reproductive: No adnexal masses. Bones: No acute fracture. Other: n/a IMPRESSION: No acute intra-abdominal or pelvic finding. Left iliac fossa renal transplant. No hydron ephrosis.
--- NOTE | 2021-03-13 09:06 | RAD REPORT ---
EXAM DESCRIPTION: RAD - Chest Single View - 03/13/2021 8:59 am CLINICAL HISTORY: COUGH COMPARISON: Chest Single View dated 10/25/2020; Chest Single View dated 06/23/2020; Abdomen 1 View (KU B) dated 04/08/2020; Chest Single View dated 01/08/2020 FINDINGS: Lines: None. Lungs: No evidence of edema or pneumonia. Pleural: No significant pleural effusions or pneumothorax. Cardiac: The heart size is within normal limits. Bones: No acute fractures. Other: IMPRESSION: No acute cardiopulmonary disease.
[2021-03-13 09:25] LABS: Absolute Lymphocytes (CBC) 1.3 K/uL (0.7-4.9); Basophils % 0.8 % (0-1.3); Hematocrit 41.3 % (39.6-49.0); MPV 7.9 fL (7.6-11.3); RBC Red Blood Cell Count 4.37 M/uL (4.33-5.43)
[2021-03-13 09:29] LABS: Protime INR 0.91
[2021-03-13] MEDS ORDERED: FENTANYL CITR 100 MCG/2 ML ONE ×2 (09:29→11:51)
[2021-03-13] MEDS ORDERED: ONDANSETRON 4 MG/2 ML VIAL ONE ×2 (09:30→11:51)
[2021-03-13 09:57] LABS: ALT/SGPT 50 U/L (12-78); AST/SGOT 28 U/L (15-37); Albumin 3.1 g/dL (3.4-5.0); Alkaline Phosphatase 119 U/L (45-117); BUN Blood Urea Nitrogen 27 mg/dL (7-18); Bicarbonate 23 mmol/L (21-32); Bilirubin Direct 0.2 mg/dL (0-0.2); Bilirubin Total 0.6 mg/dL (0.2-1.0); NT PRO-BNP 67 pg/mL (<125); Potassium 4.5 mmol/L (3.5-5.1); Protein, Total 7.5 g/dL (6.4-8.2); Sodium Level 130 mmol/L (136-145); Troponin (Emerg Dept Use Only) < 0.02 ng/mL (0.0-0.045)
[2021-03-13 09:59] LABS: Urine Blood 1+ (Negative); Urine Glucose 2+ (Negative); Urine Protein 2+ (Negative)
[2021-03-13 10:02] LABS: Glucose Level 673 mg/dL (74-106)
--- NOTE | 2021-03-13 10:13 | EDPHYS ---
Physician Documentation [facility] Name: Shoaib Freitas Jr Age: 56 yrs Sex: Male : 1965 Arrival Date: 03/13/2021 Time: 08:15 Bed 5 Private MD: ED Physician Vidal Sandra HPI: 03/13 08:35 This 56 yrs old Black Male presents to ER via Ambulatory with complaints of Passed Out zachery Prior To Arrival. 08:35 The patient has experienced syncope, became unresponsive, collapsed, lost zachery consciousness. Onset: The symptoms/episode began/occurred just prior to arrival. Duration: This was a single episode, that lasted 10 second(s). Context: the episode(s) was witnessed, by co-worker(s). Associated injury: The patient did not suffer any apparent associated injury. Associated signs and symptoms: The patient has no apparent associated signs or symptoms. Current symptoms: Currently, the patient is not experiencing any symptoms, the patient feels back to baseline. The patient has not experienced similar symptoms in the past. Historical: - Allergies: 08:26 No Known Allergies; tw2 - Home Meds: 08:26 CellCept Oral [Active]; tw2 08:26 diltiazem HCl 240 mg Oral cpER 1 cap once daily for Hypertension [Active]; prednisone 5 ss mg Oral tab once daily [Active]; valsartan 40 mg Oral tab 1 tab once daily for Hypertension [Active]; - PMHx: 08:26 Gall Stones; history of dialysis; Hypertension; kidney transplant; Pancreatitis; tw2 - Immunization history:: Adult Immunizations. - Family history:: not pertinent. - Social history:: Smoking status: . ROS: 08:35 Constitutional: Negative for fever, chills, and weight loss, Eyes: Negative for injury, zachery pain, redness, and discharge, ENT: Negative for injury, pain, and discharge, Neck: Negative for injury, pain, and swelling, Cardiovascular: Negative for chest pain, palpitations, and edema, Respiratory: Negative for shortness of breath, cough, wheezing, and pleuritic chest pain, Abdomen/GI: Negative for abdominal pain, nausea, vomiting, diarrhea, and constipation, Back: Negative for injury and pain, : Negative for injury, bleeding, discharge, and swelling, MS/Extremity: Negative for injury and deformity, Skin: Negative for injury, rash, and discoloration, Psych: Negative for depression, anxiety, suicide ideation, homicidal ideation, and hallucinations, Allergy/Immunology: Negative for hives, rash, and allergies, Endocrine: Negative for neck swelling, polydipsia, polyuria, polyphagia, and marked weight changes, Hematologic/Lymphatic: Negative for swollen nodes, abnormal bleeding, and unusual bruising. 08:35 Neuro: Positive for syncope. Exam: 08:35 Constitutional: This is a well developed, well nourished patient who is awake, alert, zachery and in no acute distress. Head/Face: Normocephalic, atraumatic. Eyes: Pupils equal round and reactive to light, extra-ocular motions intact. Lids and lashes normal. Conjunctiva and sclera are non-icteric and not injected. Cornea within normal limits. Periorbital areas with no swelling, redness, or edema. ENT: Nares patent. No nasal discharge, no septal abnormalities noted. Tympanic membranes are normal and external auditory canals are clear. Oropharynx with no redness, swelling, or masses, exudates, or evidence of obstruction, uvula midline. Mucous membranes moist. Neck: Trachea midline, no thyromegaly or masses palpated, and no cervical lymphadenopathy. Supple, full range of motion without nuchal rigidity, or vertebral point tenderness. No Meningismus. Chest/axilla: Normal chest wall appearance and motion. Nontender with no deformity. No lesions are appreciated. Cardiovascular: Regular rate and rhythm with a normal S1 and S2. No gallops, murmurs, or rubs. Normal PMI, no JVD. No pulse deficits. Respiratory: Lungs have equal breath sounds bilaterally, clear to auscultation and percussion. No rales, rhonchi or wheezes noted. No increased work of breathing, no retractions or nasal flaring. Abdomen/GI: Soft, non-tender, with normal bowel sounds. No distension or tympany. No guarding or rebound. No evidence of tenderness throughout. Back: No spinal tenderness. No costovertebral tenderness. Full range of motion. Skin: Warm, dry with normal turgor. Normal color with no rashes, no lesions, and no evidence of cellulitis. MS/ Extremity: Pulses equal, no cyanosis. Neurovascular intact. Full, normal range of motion. Neuro: Awake and alert, GCS 15, oriented to person, place, time, and situation. Cranial nerves II-XII grossly intact. Motor strength 5/5 in all extremities. Sensory grossly intact. Cerebellar exam normal. Normal gait. Psych: Awake, alert, with orientation to person, place and time. Behavior, mood, and affect are within normal limits. 08:35 Musculoskeletal/extremity: DVT Exam: No signs of deep vein thrombosis. no pain, no swelling, no tenderness, negative Homans' sign noted on exam, no appreciated bluish discoloration, no erythema, no increased warmth. 08:39 ECG was reviewed by the Attending Physician. zachery 11:29 ECG was reviewed by the Attending Physician. [facility] Vital Signs: 08:26 BP 120 / 66; Pulse 95; Resp 16; Temp 98.1(TE); Pulse Ox 98% on R/A; Weight 117.93 kg; ss Height 5 ft. 11 in. (180.34 cm); 10:53 BP 167 / 67; Pulse 86; Resp 17; Pulse Ox 98% ; tw2 11:29 BP 131 / 80; Pulse 71; Resp 22; Pulse Ox 97% on 2 lpm NC; tw2 12:30 BP 122 / 75; Pulse 75; Resp 17; Pulse Ox 99% on R/A; tw2 08:26 Body Mass Index 36.26 (117.93 kg, 180.34 cm) ss MDM: 08:21 Patient medically screened. zachery 08:40 Differential Diagnosis: cardiac arrhythmia, cerebrovascular accident, idiopathic zachery syncope, seizure, vasovagal episode. Data reviewed: vital signs, nurses notes, lab test result(s), EKG, radiologic studies, CT scan, plain films. Data interpreted: monitoring specialist: rate is 95 beats/min, rhythm is normal sinus rhythm, regular, Pulse oximetry: on room air is 98 %. Test interpretation: by ED physician or midlevel provider: ECG, plain radiologic studies. 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 03/13 08:28 Order name: Basic Metabolic Panel; Complete Time: 10:07 zachery 03/13 08:28 Order name: CBC with Diff; Complete Time: 09:44 [facility] 03/13 08:28 Order name: LFT's; Complete Time: 10:07 [facility] 03/13 08:28 Order name: Magnesium; Complete Time: 10:07 [facility] 03/13 08:28 Order name: NT PRO-BNP; Complete Time: 10:07 [facility] 03/13 08:28 Order name: PT-INR; Complete Time: 09:44 [facility] 03/13 08:28 Order name: Troponin (emerg Dept Use Only); Complete Time: 10:07 [facility] 03/13 09:59 Order name: Urine Dipstick-Ancillary; Complete Time: 10:07 [facility] 03/13 11:25 Order name: Glucose, Ancillary Testing [facility] 03/13 11:36 Order name: SARS-COV-2 RT PCR (Document "Date of Onset" if Symptomatic) 03/13 12:48 Order name: Basic Metabolic Panel [facility] 03/13 12:48 Order name: Basic Metabolic Panel [facility] 03/13 12:48 Order name: Troponin I [facility] 03/13 08:28 Order name: XRAY Chest (1 view); Complete Time: 09:27 [facility] 03/13 08:28 Order name: CT Head Brain wo Cont; Complete Time: 09:27 [facility] 03/13 08:28 Order name: CT Stone Protocol; Complete Time: 09:27 [facility] 03/13 09:28 Order name: US Extremity Venous W Compression Last; Complete Time: 11:12 [facility] 03/13 12:48 Order name: Echo with Doppler [facility] 03/13 12:48 Order name: EEG Request [facility] 03/13 12:49 Order name: Carotid Artery Bilateral [facility] 03/13 08:28 Order name: EKG; Complete Time: 08:28 [facility] 03/13 08:28 Order name: Cardiac monitoring; Complete Time: 08:29 [facility] 03/13 08:28 Order name: EKG - Nurse/Tech; Complete Time: 08:29 [facility] 03/13 08:28 Order name: IV Saline Lock; Complete Time: 09:17 [facility] 03/13 08:28 Order name: Labs collected and sent; Complete Time: 09:16 [facility] 03/13 08:28 Order name: O2 Per Protocol; Complete Time: 08:29 [facility] 03/13 08:28 Order name: O2 Sat Monitoring; Complete Time: 08:29 [facility] 03/13 11:11 Order name: Blood Glucose Level; Complete Time: 12:46 zachery 03/13 12:48 Order name: CONS Physician Consult [facility] 03/13 12:48 Order name: Heart Healthy [facility] EC:39 Rate is 93 beats/min. Rhythm is regular. QRS Chisholm is Normal. MN interval is normal. QRS zachery interval is normal. QT interval is normal. No Q waves. T waves are Normal. No ST changes noted. Clinical impression: NSR w/ Non-specific ST/T Changes and No evidence of ischemia. Interpreted by me. Reviewed by me. 11:29 Rate is 66 beats/min. Rhythm is regular. QRS Chisholm is Normal. MN interval is normal. QRS zachery interval is normal. QT interval is normal. No Q waves. T waves are Normal. Clinical impression: NSR w/ Non-specific ST/T Changes and No evidence of ischemia. Interpreted by me. Reviewed by me. Administered Medications: 09:16 Drug: NS 0.9% 1000 ml {Note: on palmar side.} Route: IV; Rate: 125 ml/hr; Site: right tw2 forearm; 14:30 Follow up: IV Status: Infusion continued upon admission tw2 09:34 Drug: Zofran (Ondansetron) 4 mg Route: IVP; Site: right forearm; tw2 12:20 Follow up: Response: No adverse reaction tw2 09:36 Drug: fentaNYL (PF) 50 mcg {Note: RASS 0.} Route: IVP; Site: right forearm; tw2 10:30 Follow up: Response: No adverse reaction; Pain is decreased; RASS: Alert and Calm (0) tw2 10:32 Drug: Insulin Regular Human 10 units {Co-Signature: tw2 (Maia Hough RN).} Route: IVP; bp Site: right forearm; 12:20 Follow up: Response: No adverse reaction tw2 10:34 Drug: LanTUS (insulin glargine) 35 units Route: Sub-Q; Site: left upper arm; bp 12:19 Follow up: Response: No adverse reaction; Blood sugar is lowered tw2 10:35 Drug: NS 0.9% 1000 ml Route: IV; Rate: 1 bolus; Site: right forearm; tw2 12:20 Follow up: Response: No adverse reaction; IV Status: Completed infusion; IV Intake: tw2 1000ml 12:17 Drug: Zofran (Ondansetron) 4 mg Route: IVP; Site: right forearm; tw2 13:30 Follow up: Response: No adverse reaction tw2 12:19 Drug: fentaNYL (PF) 25 mcg {Note: RASS 0.} Route: IVP; Site: right forearm; tw2 13:30 Follow up: Response: No adverse reaction; Pain is decreased; RASS: Alert and Calm (0) tw2 12:20 Drug: Potassium Effervescent Tablet 25 mEq Route: PO; tw2 12:47 Follow up: Response: No adverse reaction tw2 Point of Care Testing: Blood Glucose: 11:15 Blood Glucose: 345 mg/dL; tw2 Ranges: Critical Glucose Levels:Adult <50 mg/dl or >400 mg/dl <40 mg/dl or >180 mg/dl Disposition Summary: 03/13/21 10:12 Hospitalization Ordered Hospitalization Status: Observation zachery Provider: Santiago Malloy cha Location: Telemetry/MedSurg (observation) zachery Condition: Stable zachery Problem: new zachery Symptoms: have improved zachery Bed/Room Type: Standard zachery Room Assignment: 216(03/13/21 13:24) bd Diagnosis - Type 1 diabetes mellitus with hyperglycemia zachery - Acute kidney failure, unspecified - on chronic zachery - Kidney transplant status zachery - Obesity, unspecified zachery - Syncope Near zachery Discharge Instructions: - Discharge Summary Sheet zachery - Near-Syncope zachery - Obesity, Adult zachery - Syncope zachery - Weakness zachery - Syncope, Kfeh-un-Vqer zachery - Weakness, Tahr-iv-Palf zachery - Obesity, Adult, [id number] zachery Forms: - Work release form tw2 - Family Work Release tw2 - Medication Reconciliation Form zachery - SBAR form zachery Signatures: Dispatcher [employer] Simona Elizabeth Corey, MD MD cha Smirch, Shelby, RN RN ss Wise, Tara, RN RN tw2 Mic Cardozo RN RN bp Tara Wise RN tw2 Corrections: (The following items were deleted from the chart) 13:24 10:12 zachery bd
--- NOTE | 2021-03-13 10:13 | ER ---
Nurse's Notes [facility] Name: Shoaib Freitas Jr Age: 56 yrs Sex: Male : 1965 Arrival Date: 03/13/2021 Time: 08:15 Bed 5 Private MD: Diagnosis: Type 1 diabetes mellitus with hyperglycemia;Acute kidney failure, unspecified-on chronic;Kidney transplant status;Obesity, unspecified;Syncope Near Presentation: 03/13 08:22 Note provider at bedside at this time. tw2 08:28 Chief complaint: Patient states: Syncopal episode while at work. Pt reports he was ss coughing just prior to passing out, but does not recall feeling bad this morning. Coronavirus screen: Client denies travel out of the [place] in the last 14 days. Client presents with at least one sign or symptom that may indicate coronavirus-19. Standard/surgical mask placed on the client. Ebola Screen: Patient denies exposure to infectious person. Patient denies travel to an Ebola-affected area in the 21 days before illness onset. Initial Sepsis Screen: Does the patient meet any 2 criteria? No. Patient's initial sepsis screen is negative. Does the patient have a suspected source of infection? No. Patient's initial sepsis screen is negative. Risk Assessment: Do you want to hurt yourself or someone else? Patient reports no desire to harm self or others. Onset of symptoms was March 13, 2021. 08:28 Method Of Arrival: Ambulatory ss 08:28 Acuity: COBY 3 ss Historical: - Allergies: 08: No Known Allergies; tw2 - Home Meds: 08: CellCept Oral [Active]; tw2 08:26 diltiazem HCl 240 mg Oral cpER 1 cap once daily for Hypertension [Active]; prednisone 5 ss mg Oral tab once daily [Active]; valsartan 40 mg Oral tab 1 tab once daily for Hypertension [Active]; - PMHx: 08:26 Gall Stones; history of dialysis; Hypertension; kidney transplant; Pancreatitis; tw2 - Immunization history:: Adult Immunizations. - Family history:: not pertinent. - Social history:: Smoking status: . Screenin:27 Abuse screen: Denies threats or abuse. Nutritional screening: No deficits noted. tw2 Tuberculosis screening: No symptoms or risk factors identified. Fall Risk None identified. Assessment: 08:26 General: Appears in no apparent distress. obese, well groomed, Behavior is calm, tw2 cooperative, appropriate for age. Pain: Complains of pain in LEFT heel. Neuro: Level of Consciousness is awake, alert, obeys commands, Oriented to person, place, time, situation. Cardiovascular: Patient's skin is warm and dry. Respiratory: Airway is patent Respiratory effort is even, unlabored, Respiratory pattern is regular, symmetrical. GI: No signs and/or symptoms were reported involving the gastrointestinal system. Abdomen is round non-distended. : No signs and/or symptoms were reported regarding the genitourinary system. EENT: No signs and/or symptoms were reported regarding the EENT system. Derm: No signs and/or symptoms reported regarding the dermatologic system. Musculoskeletal: Circulation, motion, and sensation intact. Range of motion: intact in all extremities. 08:54 Reassessment: pt in CT at this time. tw2 11:15 Reassessment: pt c/o dizziness and feeling "hot", provider notified. tw2 11:25 Reassessment: provider at bedside. pt found to be diaphoretic. repeat ekg performed. pt tw2 placed on 02 at 2L nc. will continue to monitor. 12:30 Reassessment: Patient appears in no apparent distress at this time. Patient and/or tw2 family updated on plan of care and expected duration. Pain level reassessed. Patient is alert, oriented x 3, equal unlabored respirations, skin warm/dry/pink. Patient states feeling better. Patient states symptoms have improved. 13:06 Reassessment: pt transported to US at this time via w/c. nad. tw2 13:54 Reassessment: report given to PRINCESS Cochran. tw2 Vital Signs: 08:26 BP 120 / 66; Pulse 95; Resp 16; Temp 98.1(TE); Pulse Ox 98% on R/A; Weight 117.93 kg; ss Height 5 ft. 11 in. (180.34 cm); 10:53 BP 167 / 67; Pulse 86; Resp 17; Pulse Ox 98% ; tw2 11:29 BP 131 / 80; Pulse 71; Resp 22; Pulse Ox 97% on 2 lpm NC; tw2 12:30 BP 122 / 75; Pulse 75; Resp 17; Pulse Ox 99% on R/A; tw2 08:26 Body Mass Index 36.26 (117.93 kg, 180.34 cm) ED Course: 08:15 Patient arrived in ED. as 08:20 Vidal Sandra MD is Attending Physician. zachery 08:22 Maia Hough, RN is Primary Nurse. tw2 08:26 Arm band placed on right wrist. ss 08:27 Bed in low position. Call light in reach. Adult w/ patient. cardiac monitor on. Pulse tw2 ox on. NIBP on. 08:32 Triage completed. ss 08:48 CT Head Brain wo Cont In Process Unspecified. EDMS 08:48 CT Stone Protocol In Process Unspecified. EDMS 08:59 XRAY Chest (1 view) In Process Unspecified. EDMS 09:07 Inserted saline lock: 22 gauge in right forearm, using aseptic technique. Blood tw2 collected. Missed attempt(s): 22 gauge in right antecubital area. by Kaleigh Strong. Bleeding controlled, band aid applied, catheter tip intact. 09:16 Missed attempt(s): 20 gauge in left forearm. jg9 09:17 Missed attempt(s): 22 gauge in left upper arm. jg9 10:09 Santiago Malloy MD is Hospitalizing Provider. zachery 10:11 US Extremity Venous W Compression Last In Process Unspecified. EDMS 13:52 No provider procedures requiring assistance completed. Patient admitted, IV remains in tw2 place. Administered Medications: 09:16 Drug: NS 0.9% 1000 ml {Note: on palmar side.} Route: IV; Rate: 125 ml/hr; Site: right tw2 forearm; 14:30 Follow up: IV Status: Infusion continued upon admission tw2 09:34 Drug: Zofran (Ondansetron) 4 mg Route: IVP; Site: right forearm; tw2 12:20 Follow up: Response: No adverse reaction tw2 09:36 Drug: fentaNYL (PF) 50 mcg {Note: RASS 0.} Route: IVP; Site: right forearm; tw2 10:30 Follow up: Response: No adverse reaction; Pain is decreased; RASS: Alert and Calm (0) tw2 10:32 Drug: Insulin Regular Human 10 units {Co-Signature: tw2 (Maia Hough RN).} Route: IVP; bp Site: right forearm; 12:20 Follow up: Response: No adverse reaction tw2 10:34 Drug: LanTUS (insulin glargine) 35 units Route: Sub-Q; Site: left upper arm; bp 12:19 Follow up: Response: No adverse reaction; Blood sugar is lowered tw2 10:35 Drug: NS 0.9% 1000 ml Route: IV; Rate: 1 bolus; Site: right forearm; tw2 12:20 Follow up: Response: No adverse reaction; IV Status: Completed infusion; IV Intake: tw2 1000ml 12:17 Drug: Zofran (Ondansetron) 4 mg Route: IVP; Site: right forearm; tw2 13:30 Follow up: Response: No adverse reaction tw2 12:19 Drug: fentaNYL (PF) 25 mcg {Note: RASS 0.} Route: IVP; Site: right forearm; tw2 13:30 Follow up: Response: No adverse reaction; Pain is decreased; RASS: Alert and Calm (0) tw2 12:20 Drug: Potassium Effervescent Tablet 25 mEq Route: PO; tw2 12:47 Follow up: Response: No adverse reaction tw2 Point of Care Testing: Blood Glucose: 11:15 Blood Glucose: 345 mg/dL; tw2 Ranges: Intake: 12:20 IV: 1000ml; Total: 1000ml. tw2 Output: 13:04 Urine: 450ml (Voided); Total: 450ml. tw2 Outcome: 09:37 Discharged to home ambulatory. tw2 10:12 Decision to Hospitalize by Provider. zachery 13:53 Condition: stable tw2 13:53 Instructed on the need for admit. 13:54 Instructed on the need for admit. tw2 14:38 Patient left the ED. tw2 Signatures: Dispatcher [employer] EDMS Vidal Sandra MD MD cha Martinez, Amelia as Smirch, Shelby, RN RN ss Wise, Tara, RN RN tw2 Mic Cardozo RN RN bp Gilmore, Jennifer jg9 Maia Hough RN tw2 Corrections: (The following items were deleted from the chart) 12:26 11:29 Pulse 71bpm; Resp 22bpm; Pulse Ox 97% 2 lpm Nasal Cannula; tw2 tw2
[2021-03-13] MEDS ORDERED: INSULIN GLARGINE 100 UNIT/ML SQ ONE ×2 (10:19→10:32)
[2021-03-13] MEDS ORDERED: INSULIN -REGULAR HUMAN 50 UNIT/0.5 ML ML ONE (10:20)
--- NOTE | 2021-03-13 10:38 | RAD REPORT ---
EXAM DESCRIPTION: US - Extrem Venous W Compress Last - 03/13/2021 10:14 am CLINICAL HISTORY: Pain COMPARISON: 12/21/2020, 10/25/2020 TECHNIQUE: Real-time sonographic evaluation of the bilateral lower extremity deep venous systems was performed. FINDINGS: Normal compressibility, flow augmentation, phasic flow and spontaneous flow is identified the right lower extremity. Incomplete compressibility with intraluminal filling defect in the left popliteal vein similar to the previous ultrasound. The remaining left lower extremity vessels are compressible and demonstrate nor mal waveforms. IMPRESSION: Chronic left popliteal vein thrombosis.
[2021-03-13] MEDS ORDERED: POTASSIUM 25 MEQ EFFERV TAB ONE (11:51)
[2021-03-13] MEDS ORDERED: ACETAMINOPHEN 500 MG TAB PO PRN (12:45)
--- NOTE | 2021-03-13 14:04 | RAD REPORT ---
EXAM DESCRIPTION: USCarotid Artery [id number]/1/2021 1:54 pm CLINICAL HISTORY: syncope COMPARISON: None FINDINGS: The velocity of the right internal carotid artery equals 79 cm/sec. The velocity of the left internal carotid artery equals 76 cm/sec. Plaque within the carotid arteries is not noted. Internal carotid/common carotid ratio is normal The vertebral arteries demonstrate antegrade flow IMPRESSION: Unremarkable exam NASCET criteria used. Mild 0-49% stenosis Moderate 50-69% stenosis Severe 70-99% stenosis
[2021-03-13] MEDS ORDERED: GLUCAGON 1 MG/VIAL IM PRN (15:51)
[2021-03-13] MEDS ORDERED: D50W 25 GM/50 ML SYRINGE IV PRN (15:51)
--- NOTE | 2021-03-13 16:13 | P.HP ---
Certification for Inpatient Patient admitted to: Inpatient With expected LOS: >2 Midnights Practitioner: I am a practitioner with admitting privileges, knowledge of patient current condition, hospital course, and medical plan of care. Services: Services provided to patient in accordance with Admission requirements found in Title 42 Section 412.3 of the Code of Federal Regulations Patient History Date of Service: 03/13/21 Primary Care Provider: Chin Reason for admission: diabetes History of Present Illness: Patient was at work when he had a syncopal episode. He was brought to the ER. found to have an elevated sugar in the 600. The patient has been having some elevated glucose in Jan. The pt has been having nocturia and increased thirst. The patient also has an elevated creatine. His creatine was 1.57 a month ago. The patient is currently feeling well. 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 - Family History Mother -: Hypertension, Diabetes Father -: Hypertension, Diabetes - Social History Alcohol use: Yes CD- Drugs: No Caffeine use: Yes Review of Systems 10-point ROS is otherwise unremarkable Cardiovascular: Other (syncope) Physical Examination - Vital Signs Temperature: 98.1 F Blood Pressure: 122/75 Pulse: 75 Respirations: 17 - Physical Exam General: Alert, In no apparent distress HEENT: Atraumatic, PERRLA, Mucous membr. moist/pink, EOMI, Sclerae nonicteric Neck: Supple, 2+ carotid pulse no bruit, No LAD, Without JVD or thyroid abnormality Respiratory: Clear to auscultation bilaterally, Normal air movement Cardiovascular: Regular rate/rhythm, Normal S1 S2 Gastrointestinal: Normal bowel sounds, No tenderness Musculoskeletal: No tenderness Integumentary: No rashes Neurological: Normal gait, Normal speech, Normal strength at 5/5 x4 extr, Normal tone, Normal affect Lymphatics: No axilla or inguinal lymphadenopathy - Studies Laboratory Data (last 24 hrs) 03/13/21 09:07: PT 10.5, INR 0.91 03/13/21 09:07: WBC 7.60, Hgb 13.7, Hct 41.3, Plt Count 243 03/13/21 09:07: Sodium 130 L, Potassium 4.5, BUN 27 H, Creatinine 2.36 H, Glucose 673 H*, Magnesium 2.0, Total Bilirubin 0.6, AST 28, ALT 50, Alkaline Phosphatase 119 H Assessment and Plan - Problems (Diagnosis) (1) Diabetes 1.5, managed as type 2 Current Visit: Yes Status: Acute Plan: new onset. will start the patieint on insulin and fluids. Consider [facility]. as an out patient (2) Acute on chronic renal failure Current Visit: Yes Status: Acute Plan: Will consult Dr. Doll and start the patient on fluids. Qualifiers: Chronic kidney disease stage: stage 3 (moderate) (3) Status post kidney transplant Onset Date: 12/03/15 Current Visit: No Status: Acute Plan: restart cellcept and cyclsporin (4) Hypertension Onset Date: 12/03/15 Current Visit: No Status: Chronic Plan: normal on spirnolactone. Will continue in the am Qualifiers: Hypertension type: primary hypertension Qualified Code(s): I10 - Essential (primary) hypertension Discharge Plan: Home Plan to discharge in: 24 Hours - Advance Directives Does patient have a Living Will: No Does patient have a Durable POA for Healthcare: No - Code Status/Comfort Care Code Status Assessed: No Code Status: Full Code Physician Review: Patient Assessed, Agree with Above Assessment and Plan Critical Care: No Time Spent Managing Pts Care (In Minutes): 45
[2021-03-13] MEDS: INSULIN -REGULAR HUMAN 50 UNIT/0.5 ML ML SQ SCH ×2 (16:30→19:21)
[2021-03-13] MEDS ORDERED: ENOXAPARIN 40 MG/0.4 ML SQ SCH (17:00)
[2021-03-13 17:01] VITALS: BMI 36.2
[2021-03-13] MEDS: MORPHINE 4 MG/ML SYR IV PRN ×2 (19:23→23:22)
[2021-03-13] MEDS: APIXABAN 5 MG TABLET PO SCH (20:18)
[2021-03-13] MEDS: MYCOPHENOLATE 500 MG PO SCH (20:18)
[2021-03-13] MEDS: METOPROLOL TAR 50 MG TAB PO SCH (20:18)
[2021-03-13] MEDS ORDERED: CYCLOSPORINE 125 MG PO SCH (21:00)
--- NOTE | 2021-03-13 22:09 | P.CNS ---
Date of Consult: 03/13/21 Reason for Consult: AUDIE/CKD Requesting Physician: David Neely Primary Care Provider: Chin Chief Complaint: diabetes History of Present Illness: Patient was at work when he had a syncopal episode. He was brought to the ER. found to have an elevated sugar in the 600. The patient has been having some elevated glucose in Jan. The pt has been having nocturia and increased thirst. The patient also has an elevated creatine. His creatine was 1.57 a month ago. The patient is currently feeling well. 08:35 This 56 yrs old Black Male presents to ER via Ambulatory with complaints of Passed Out zachery Prior To Arrival. 08:35 The patient has experienced syncope, became unresponsive, collapsed, lost zachery consciousness. Onset: The symptoms/episode began/occurred just prior to arrival. Duration: This was a single episode, that lasted 10 second(s). Context: the episode(s) was witnessed, by co-worker(s). Associated injury: The patient did not suffer any apparent associated injury. Associated signs and symptoms: The patient has no apparent associated signs or symptoms. Current symptoms: Currently, the patient is not experiencing any symptoms, the patient feels back to baseline. The patient has not experienced similar symptoms in the past. Allergies No Known Allergies Allergy (Verified 09/09/19 21:27) Home Medications: Valsartan/Hydrochlorothiazide [Valsartan-Hctz 80-12.5 mg Tab] 80 mg PO DAILY 03/13/21 cycloSPORINE [Cyclosporine] 100 mg PO BID 03/13/21 dilTIAZem HCL [Diltiazem 24Hr ER (Xr)] 240 mg PO DAILY 03/13/21 mycophenolate mofetiL [Mycophenolate Mofetil] 1,000 mg PO BID 03/13/21 predniSONE [Prednisone*] 5 mg PO DAILY 03/13/21 - Past Medical/Surgical History Diabetic: No -: History of renal transplant-17 years ago -: Hypertension -: Tobacco abuse -: pancreatitis -: kidney transplant 17 yrs ago -: cholecystectomy Psychosocial/ Personal History: He is engaged, has 2 children, 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 - Family History Mother Medical History: Hypertension, Diabetes Father Medical History: Hypertension, Diabetes - Social History Smoking Status: Current some day smoker Alcohol use: Yes CD- Drugs: No Caffeine use: Yes Review of Systems 10-point ROS is otherwise unremarkable Physical Examination Temp Pulse Resp BP Pulse Ox 98.1 F 86 17 153/67 H 96 03/13/21 16:23 03/13/21 20:18 03/13/21 16:23 03/13/21 20:18 03/13/21 16:00 General: Oriented x3, Cooperative HEENT: Atraumatic Neck: Supple Respiratory: Clear to auscultation bilaterally Cardiovascular: No edema, Regular rate/rhythm Gastrointestinal: Soft and benign, Non-distended Musculoskeletal: No clubbing, No contractures Integumentary: No rashes, No cyanosis Neurological: Normal speech Laboratory Data (last 24 hrs) 03/13/21 09:07: PT 10.5, INR 0.91 03/13/21 09:07: WBC 7.60, Hgb 13.7, Hct 41.3, Plt Count 243 03/13/21 09:07: Sodium 130 L, Potassium 4.5, BUN 27 H, Creatinine 2.36 H, Glucose 673 H*, Magnesium 2.0, Total Bilirubin 0.6, AST 28, ALT 50, Alkaline Phosphatase 119 H Imagings Data: EXAM DESCRIPTION: CT - Head Brain Wo Cont - 03/13/2021 8:48 am CLINICAL HISTORY: SYNCOPE COMPARISON: Head Brain Wo Cont dated 02/28/2017 TECHNIQUE: All CT scans are performed using dose optimization technique as appropriate and may include automated exposure control or mA/KV adjustment according to patient size. FINDINGS: No intracranial hemorrhage, hydrocephalus or extra-axial fluid collection.Mild chronic small vessel ischemic changes. The paranasal sinuses and mastoids are clear. The calvarium is intact. IMPRESSION: No acute intracranial abnormality. EXAM DESCRIPTION: US - Extrem Venous W Compress Last - 03/13/2021 10:14 am CLINICAL HISTORY: Pain COMPARISON: 12/21/2020, 10/25/2020 TECHNIQUE: Real-time sonographic evaluation of the bilateral lower extremity deep venous systems was performed. FINDINGS: Normal compressibility, flow augmentation, phasic flow and spontaneous flow is identified the right lower extremity. Incomplete compressibility with intraluminal filling defect in the left popliteal vein similar to the previous ultrasound. The remaining left lower extremity vessels are compressible and demonstrate normal waveforms. IMPRESSION: Chronic left popliteal vein thrombosis. EXAM DESCRIPTION: RAD - Chest Single View - 03/13/2021 8:59 am CLINICAL HISTORY: COUGH COMPARISON: Chest Single View dated 10/25/2020; Chest Single View dated 06/23/2020; Abdomen 1 View (KUB) dated 04/08/2020; Chest Single View dated 01/08/2020 FINDINGS: Lines: None. Lungs: No evidence of edema or pneumonia. Pleural: No significant pleural effusions or pneumothorax. Cardiac: The heart size is within normal limits. Bones: No acute fractures. Other: IMPRESSION: No acute cardiopulmonary disease. EXAM DESCRIPTION: CTStone Protocol - 03/13/2021 8:48 am CLINICAL HISTORY: ABD PAIN COMPARISON: Stone Protocol dated 06/23/2020; Abdomen Pelvis W Contrast dated 02/02/2020; Abdomen Pelvis W Contrast dated 06/24/2019; Abdomen Pelvis W Contrast dated 05/31/2019 TECHNIQUE: CT of the abdomen and pelvis was performed. All CT scans are performed using dose optimization technique as appropriate and may include automated exposure control or mA/KV adjustment according to patient size. FINDINGS: Lower chest: No acute abnormality. Liver: Hepatomegaly with steatosis. Biliary: Cholecystectomy. Stomach: No significant focal abnormality. Duodenum: No significant focal abnormality. Pancreas: No significant abnormality. Spleen: No significant abnormality. Adrenal: No suspicious lesions. Kidney/ureter: No hydronephrosis. No renal calculi. Severely atrophic [place] kidneys. Left iliac fossa renal transplant kidney. Mild nonspecific left renal transplant perinephric stranding is unchanged. No hydronephrosis in the transplant kidney. Retroperitoneum: No retroperitoneal adenopathy. Vascular: No aneurysm. Bowel: No significant focal abnormality. Normal appendix. Peritoneum: No ascites or free air. Bladder: Grossly unremarkable. Reproductive: No adnexal masses. Bones: No acute fracture. Other: n/a IMPRESSION: No acute intra-abdominal or pelvic finding. Left iliac fossa renal transplant. No hydronephrosis. EXAM DESCRIPTION: USCarotid Artery Ozqivrswh70/1/2021 1:54 pm CLINICAL HISTORY: syncope COMPARISON: None FINDINGS: The velocity of the right internal carotid artery equals 79 cm/sec. The velocity of the left internal carotid artery equals 76 cm/sec. Plaque within the carotid arteries is not noted. Internal carotid/common carotid ratio is normal The vertebral arteries demonstrate antegrade flow IMPRESSION: Unremarkable exam Conclusions/Impression: AUDIE in the setting hypovolemia & IV contrast CKD III with proteinuria -No NSAIDs -Continue IVF Renal Tx Immunosuppression -Continue Cellcept -Continue Cyclosporine Hyponatremia -Correct hyperglycemia HTN with CKD -Continue Metoprolol DM II with CKD -Continue Lantus -RISS Fatty Liver -No sugar diet Thank you kindly for the consultation. Case reviewed with Dr. Neely
[2021-03-14] MEDS: MORPHINE 4 MG/ML SYR IV PRN ×3 (04:22→14:11)
[2021-03-14 05:48] LABS: Absolute Lymphocytes (CBC) 2.3 K/uL (0.7-4.9); Basophils % 0.4 % (0-1.3); Hematocrit 37.9 % (39.6-49.0); Lymphocytes % 22.8 % (15.3-44.8); MPV 7.8 fL (7.6-11.3); RBC Red Blood Cell Count 3.93 M/uL (4.33-5.43)
[2021-03-14 06:28] LABS: BUN Blood Urea Nitrogen 26 mg/dL (7-18); Bicarbonate 26 mmol/L (21-32); Glucose Level 273 mg/dL (74-106); HDL Cholesterol 33 mg/dL (40-60); Magnesium 2.1 mg/dL (1.8-2.4); Phosphorus 2.7 mg/dL (2.5-4.9); Potassium 4.1 mmol/L (3.5-5.1); Sodium Level 135 mmol/L (136-145); Troponin I < 0.02 ng/mL (0.0-0.045); Uric Acid 6.7 mg/dL (3.5-7.2)
[2021-03-14 06:41] LABS: LDL, Direct 114 mg/dL (100-129)
[2021-03-14] MEDS: APIXABAN 5 MG TABLET PO SCH ×2 (08:15→21:14)
[2021-03-14] MEDS: MYCOPHENOLATE 500 MG PO SCH ×2 (08:15→21:14)
[2021-03-14] MEDS: INSULIN -REGULAR HUMAN 50 UNIT/0.5 ML ML SQ SCH ×4 (08:15→21:15)
[2021-03-14] MEDS: PANTOPRAZOLE 40MG TABLET PO SCH (08:15)
[2021-03-14] MEDS: INSULIN GLARGINE 100 UNIT/ML SQ SCH (08:15)
[2021-03-14] MEDS: DILTIAZEM HCL 120 MG SR CAP PO SCH (08:15)
[2021-03-14] MEDS: METOPROLOL TAR 50 MG TAB PO SCH ×2 (08:15→21:13)
[2021-03-14] MEDS: ASPIRIN EC 81 MG TAB PO SCH (08:48)
[2021-03-14] MEDS ORDERED: ENOXAPARIN 40 MG/0.4 ML SQ SCH (09:00)
--- NOTE | 2021-03-14 10:43 | P.PN ---
Subjective Date of Service: 03/14/21 Primary Care Provider: Chin Chief Complaint: diabetes Subjective: Improving Review of Systems 10-point ROS is otherwise unremarkable Physical Examination - Vital Signs Temperature: 97.1 F Blood Pressure: 167/67 Pulse: 85 Respirations: 17 Pulse Ox (%): 94 - Physical Exam General: Alert, In no apparent distress HEENT: Atraumatic, PERRLA, EOMI Neck: Supple, JVD not distended Respiratory: Clear to auscultation bilaterally, Normal air movement Cardiovascular: Regular rate/rhythm, Normal S1 S2 Gastrointestinal: Normal bowel sounds, No tenderness Musculoskeletal: No tenderness Integumentary: No rashes Neurological: Normal speech, Normal tone, Normal affect Lymphatics: No axilla or inguinal lymphadenopathy Assessment & Plan - Problems (Diagnosis) (1) Diabetes 1.5, managed as type 2 Current Visit: Yes Status: Acute Plan: new onset. will start the patieint on insulin and fluids. Consider [facility]. as an out patient 03/14 Patient is on chronic prednisone due to his renal transplant (2) Acute on chronic renal failure Current Visit: Yes Status: Acute Plan: Will consult Dr. Doll and start the patient on fluids. Qualifiers: Chronic kidney disease stage: stage 3 (moderate) (3) Status post kidney transplant Onset Date: 12/03/15 Current Visit: No Status: Acute Plan: restart cellcept and cyclsporin (4) Hypertension Onset Date: 12/03/15 Current Visit: No Status: Chronic Plan: normal on spirnolactone. Will continue in the am Qualifiers: Hypertension type: primary hypertension Qualified Code(s): I10 - Essential (primary) hypertension Discharge Plan: Home Plan to discharge in: 24 Hours - Code Status/Comfort Care Code Status Assessed: No Physician Review: Patient Assessed, Agree with Above Assessment and Plan Critical Care: No Time Spent Managing Pts Care (In Minutes): 20
--- NOTE | 2021-03-14 12:42 | CON ---
Date of Consultation: 03/14/2021 Reason For Consultation: Elevated BUN and creatinine, fluid management, end-stage renal disease stat us post transplant. History Of Present Illness: This is a pleasant 56-year-old gentleman with significant past medical h istory of hypertension, hyperlipidemia, chronic kidney disease stage 5 status post transplant disease donor in 1999 without any rejection. Follow up with Dr. Klein in [place], maintained anti-reject ion medication. The patient was maintained on cyclosporine 100 b.i.d. 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 No other changes in his medication. The patient denied taking any nonsteroidal. Apparently , the patient was in his regular state of health. While he was walking, he was coughing. After coug melissa, the patient passed out. For that reason, the patient was brought to the hospital. Upon arriva l to the hospital, the patient was found to have elevated BUN and creatinine. For that reason, we shaver ve been consulted. The patient was also found to have hyperglycemia, blood sugar above 600. The pat ient's baseline creatinine around 1.5 usually. As I mentioned, the patient visited with his primary hydroelectric plant operator recently and cyclosporine has been increased. Back in October, creatinine 1.7. GFR at [facility] t time is 49. Past Medical History: Includes: 1.DVT. 2.Hypertension. 3.Chronic kidney disease stage 5 status post disease donor kidney transplant back in 1999, maintaine d on cyclosporine, follow up with [facility]. 4.Hematuria. 5.Pancreatitis. Past Surgical History: Includes: 1.Kidney transplant. 2.Cholecystectomy. Family History: Positive for diabetes and hypertension. Social History: Active alcohol. Denied drugs abuse. Denied smoking. Review of Systems: Head and Neck: No red eye. No ear pain. GI: No nausea. No vomiting. : No polyuria. No dysuria. No hematuria. [place]: Not applicable. Respiratory: Has cough. Cardiovascular: Has syncope. Musculoskeletal: Low back pain. Neuro: Has syncope. Endocrine: No polydipsia. Skin: No rash. Physical Examination: General: When I saw the patient, the patient lying in bed comfortable, not in any distress. Vital Signs: Blood pressure of 167/67, pulse of 85 afebrile. Chest: Clear to auscultation. Heart: S1, S2 regular. Abdomen: Soft, nontender. Kidney transplant on place. No tenderness. No guarding. No inflammatio n around it. Extremities: No edema. Neurologic: No focality. Laboratory Data: For the patient back in October; creatinine 1.7, GFR 49. Upon admission, sodium 130, potassium 4.5, bicarb 23, BUN 27, creatinine 2.3, glucose 673, corrected sodium is 135. Calcium of 9 , albumin 3.1, corrected calcium 9.8. Today lab data; sodium 135, potassium 4.1, bicarb 26, BUN 26, creatinine down to 1.9, GFR of 44, uric acid 6.5. Calcium 9.1 phosphorus 2.7, magnesium 2.1. Trigly ceride 733. TSH 0.8. Urinalysis +2 protein. Current Medications: The patient on include Eliquis, aspirin, atorvastatin, diltiazem 240 daily, met oprolol 25 b.i.d., Tylenol, pantoprazole. Normal saline at 100 per hour. Assessment And Plan: 1.Acute kidney injury on transplanted kidney, secondary to prerenal, on the recovery phase. I am go ing to continue current hydration. I am going to resume cyclosporine and we will monitor the patient . I agree with aggressive insulin given the glucose diuresis, worsening of the kidney function, and we will monitor. Please avoid any ZUNILDA inhibitor or ARB for the time being. 2.Hyponatremia secondary to hyperglycemia with depletional hyponatremia secondary to glucose diuresi s. a.I am going to continue on IV hydration. I agree with current aggressive control for the diabetes. 3.Kidney transplant, chronic kidney disease stage 5 with acute kidney injury as above. Resume cyclo sporine. Continue IV fluid. 4.Hypertension, controlled, optimal. Keep holding any ZUNILDA inhibitor or ARB. I agree with beta-bloc ker and calcium channel pamella. 5.Diabetes as by primary. NAOMI/MODL Voice ID: [id number] Report ID: [id number]
[2021-03-14] MEDS: HYDROCODONE/APAP 7.5/325 MG TAB PO PRN ×2 (17:22→23:43)
[2021-03-14] MEDS: NA CHLORIDE 0.9% 1,000 ML IV SCH (17:23)
[2021-03-14] MEDS ORDERED: HOME MED 1 EA UNK (Mycophenolate Mofetil [Mycophenolate Mofetil] 500 MG Tablet) PO SCH (21:00)
[2021-03-14] MEDS ORDERED: ATORVASTATIN 40 MG TAB PO SCH (21:00)
[2021-03-14] MEDS: DOCUSATE NA 100 MG CAP PO SCH (21:13)
--- NOTE | 2021-03-14 21:26 | P.PN ---
Date of Service: 03/14/21 Vital Signs Temp Pulse Resp BP Pulse Ox 97.9 F 75 18 113/51 L 94 03/14/21 16:00 03/14/21 16:00 03/14/21 18:22 03/14/21 16:00 03/14/21 16:00 Medications Acetaminophen (Acetaminophen 500 Mg Tab) 500 mg PO Q4H PRN PRN Reason: TEMP > 100.4' F OR MILD PAIN Last Admin: 03/13/21 16:46 Dose: 500 mg Documented by: Hydrocodone Bitart/Acetaminophen (Hydrocodone/Apap 7.5/325 Mg Tab) 1 tab PO Q6H PRN PRN Reason: Pain scale 5-7 (Moderate) Last Admin: 03/14/21 17:22 Dose: 1 tab Documented by: Apixaban (Apixaban 5 Mg Tablet) 5 mg PO BID [facility] Last Admin: 03/14/21 21:14 Dose: 5 mg Documented by: Aspirin (Aspirin Ec 81 Mg Tab) 81 mg PO DAILY [facility] Last Admin: 03/14/21 08:48 Dose: Not Given Documented by: Atorvastatin Calcium (Atorvastatin 40 Mg Tab) 40 mg PO BEDTIME [facility] Last Admin: 03/14/21 21:14 Dose: 40 mg Documented by: Dextrose (D50w 25 Gm/50 Ml Syringe) 12.5 gm IV PRN PRN; Protocol PRN Reason: HYPOGLYCEMIA Diltiazem HCl (Diltiazem Hcl 120 Mg Sr Cap) 240 mg PO DAILY [facility] Last Admin: 03/14/21 08:15 Dose: 240 mg Documented by: Docusate Sodium (Docusate Na 100 Mg Cap) 100 mg PO BID [facility] Last Admin: 03/14/21 21:13 Dose: 100 mg Documented by: Glucagon (Glucagon 1 Mg/Vial) 1 mg IM 1X PRN; Protocol PRN Reason: HYPOGLYCEMIA Home Med (Home Med (Mycophenolate 500 Mg Tablets)) 2 ea PO BID [facility] Last Admin: 03/14/21 21:14 Dose: 2 ea Documented by: Home Med (Home Med (Cyclosporine 125 Mg)) 1 ea PO BID [facility] Sodium Chloride (Ns 1000 Ml Ivbag) 1,000 mls @ 100 mls/hr IV .Q10H [facility] Last Admin: 03/14/21 17:23 Dose: 1,000 mls Documented by: Insulin Glargine (Insulin Glargine 100 Unit/Ml) 20 unit SQ DAILY [facility] Last Admin: 03/14/21 08:15 Dose: 20 unit Documented by: Insulin Human Regular (Insulin -Regular Human 50 Unit/0.5 Ml Ml) 0 unit SQ [facility]; Protocol Last Admin: 03/14/21 21:15 Dose: 9 unit Documented by: Metoprolol Tartrate (Metoprolol Tar 50 Mg Tab) 25 mg PO BID [facility] Last Admin: 03/14/21 21:13 Dose: 25 mg Documented by: Pantoprazole Sodium (Pantoprazole 40mg Tablet) 40 mg PO ACB [facility]; Protocol Last Admin: 03/14/21 08:15 Dose: 40 mg Documented by: Sodium Chloride (Flush Normal Saline 10 Ml) 10 ml IV BID [facility] Last Admin: 03/14/21 21:00 Dose: 10 ml Documented by: Lab Results (last 24 hrs) 03/13/21 09:07: Hemoglobin A1c 8.0 H Assessment/ Plan: Nephrology No dyspnea No chest pain No acute events overnight Vitals, medications, blood work and imaging reviewed in the chart General: Oriented x3, Cooperative HEENT: Atraumatic Neck: Supple Respiratory: Clear to auscultation bilaterally Cardiovascular: Traceedema, Regular rate/rhythm Gastrointestinal: Soft and benign, Non-distended Musculoskeletal: No clubbing, No contractures Integumentary: No rashes, No cyanosis Neurological: Normal speech Laboratory Data (last 24 hrs) 03/13/21 09:07: PT 10.5, INR 0.91 03/13/21 09:07: WBC 7.60, Hgb 13.7, Hct 41.3, Plt Count 243 03/13/21 09:07: Sodium 130 L, Potassium 4.5, BUN 27 H, Creatinine 2.36 H, Glucose 673 H*, Magnesium 2.0, Total Bilirubin 0.6, AST 28, ALT 50, Alkaline Phosphatase 119 H Imagings Data: EXAM DESCRIPTION: CT - Head Brain Wo Cont - 03/13/2021 8:48 am CLINICAL HISTORY: SYNCOPE COMPARISON: Head Brain Wo Cont dated 02/28/2017 TECHNIQUE: All CT scans are performed using dose optimization technique as appropriate and may include automated exposure control or mA/KV adjustment according to patient size. FINDINGS: No intracranial hemorrhage, hydrocephalus or extra-axial fluid collection.Mild chronic small vessel ischemic changes. The paranasal sinuses and mastoids are clear. The calvarium is intact. IMPRESSION: No acute intracranial abnormality. EXAM DESCRIPTION: US - Extrem Venous W Compress Last - 03/13/2021 10:14 am CLINICAL HISTORY: Pain COMPARISON: 12/21/2020, 10/25/2020 TECHNIQUE: Real-time sonographic evaluation of the bilateral lower extremity deep venous systems was performed. FINDINGS: Normal compressibility, flow augmentation, phasic flow and spontaneous flow is identified the right lower extremity. Incomplete compressibility with intraluminal filling defect in the left popliteal vein similar to the previous ultrasound. The remaining left lower extremity vessels are compressible and demonstrate normal waveforms. IMPRESSION: Chronic left popliteal vein thrombosis. EXAM DESCRIPTION: RAD - Chest Single View - 03/13/2021 8:59 am CLINICAL HISTORY: COUGH COMPARISON: Chest Single View dated 10/25/2020; Chest Single View dated 06/23/2020; Abdomen 1 View (KUB) dated 04/08/2020; Chest Single View dated 01/08/2020 FINDINGS: Lines: None. Lungs: No evidence of edema or pneumonia. Pleural: No significant pleural effusions or pneumothorax. Cardiac: The heart size is within normal limits. Bones: No acute fractures. Other: IMPRESSION: No acute cardiopulmonary disease. EXAM DESCRIPTION: CTStone Protocol - 03/13/2021 8:48 am CLINICAL HISTORY: ABD PAIN COMPARISON: Stone Protocol dated 06/23/2020; Abdomen Pelvis W Contrast dated 02/02/2020; Abdomen Pelvis W Contrast dated 06/24/2019; Abdomen Pelvis W Contrast dated 05/31/2019 TECHNIQUE: CT of the abdomen and pelvis was performed. All CT scans are performed using dose optimization technique as appropriate and may include automated exposure control or mA/KV adjustment according to patient size. FINDINGS: Lower chest: No acute abnormality. Liver: Hepatomegaly with steatosis. Biliary: Cholecystectomy. Stomach: No significant focal abnormality. Duodenum: No significant focal abnormality. Pancreas: No significant abnormality. Spleen: No significant abnormality. Adrenal: No suspicious lesions. Kidney/ureter: No hydronephrosis. No renal calculi. Severely atrophic seneca kidneys. Left iliac fossa renal transplant kidney. Mild nonspecific left renal transplant perinephric stranding is unchanged. No hydronephrosis in the transplant kidney. Retroperitoneum: No retroperitoneal adenopathy. Vascular: No aneurysm. Bowel: No significant focal abnormality. Normal appendix. Peritoneum: No ascites or free air. Bladder: Grossly unremarkable. Reproductive: No adnexal masses. Bones: No acute fracture. Other: n/a IMPRESSION: No acute intra-abdominal or pelvic finding. Left iliac fossa renal transplant. No hydronephrosis. EXAM DESCRIPTION: USCarotid Artery Gbkhxjkiy88/1/2021 1:54 pm CLINICAL HISTORY: syncope COMPARISON: None FINDINGS: The velocity of the right internal carotid artery equals 79 cm/sec. The velocity of the left internal carotid artery equals 76 cm/sec. Plaque within the carotid arteries is not noted. Internal carotid/common carotid ratio is normal The vertebral arteries demonstrate antegrade flow IMPRESSION: Unremarkable exam Conclusions/Impression: AUDIE in the setting hypovolemia & IV contrast CKD III with proteinuria -No NSAIDs -Continue IVF Renal Tx Immunosuppression -Continue Cellcept -Continue Cyclosporine Hyponatremia -Correct hyperglycemia HTN with CKD -Continue Metoprolol DM II with CKD -Continue Lantus -RISS Fatty Liver -No sugar diet Case reviewed with Dr. Neely; he reports that Dr. Alcantara has seen the patient in the past.
[2021-03-15] MEDS: NA CHLORIDE 0.9% 1,000 ML IV SCH (03:59)
[2021-03-15 06:21] LABS: Urine Appearance CLEAR (Clear); Urine Bilirubin NEGATIVE (Negative); Urine Blood 1+ (Negative); Urine Color YELLOW (Yellow); Urine Glucose 2+ (Negative); Urine Protein 3+ (Negative); Urine pH 5.5 (5.0-7.0)
[2021-03-15 06:28] LABS: UR PROTEIN 184.1 mg/dL (<11.9); Urine Protein/Creatinine Ratio 1.42 ratio (<0.15)
[2021-03-15 06:42] LABS: Urine Bacteria <20 /HPF (NONE SEEN); Urine Mucus 1+ /HPF (NONE SEEN)
[2021-03-15] MEDS: PANTOPRAZOLE 40MG TABLET PO SCH (09:00)
[2021-03-15] MEDS: METOPROLOL TAR 50 MG TAB PO SCH (09:00)
[2021-03-15] MEDS: INSULIN GLARGINE 100 UNIT/ML SQ SCH (09:00)
[2021-03-15] MEDS: ASPIRIN EC 81 MG TAB PO SCH (09:00)
[2021-03-15] MEDS: APIXABAN 5 MG TABLET PO SCH (09:00)
[2021-03-15] MEDS: MYCOPHENOLATE 500 MG PO SCH (09:00)
[2021-03-15] MEDS: DOCUSATE NA 100 MG CAP PO SCH (09:00)
[2021-03-15] MEDS: DILTIAZEM HCL 120 MG SR CAP PO SCH (09:00)
[2021-03-15] MEDS: INSULIN -REGULAR HUMAN 50 UNIT/0.5 ML ML SQ SCH ×2 (09:00→12:08)
[2021-03-15 09:15] LABS: Albumin 2.9 g/dL (3.4-5.0); Phosphorus 2.3 mg/dL (2.5-4.9); Potassium 4.3 mmol/L (3.5-5.1)
[2021-03-15] MEDS: HYDROCODONE/APAP 7.5/325 MG TAB PO PRN (09:18)
--- NOTE | 2021-03-15 10:05 | P.PN ---
Subjective Date of Service: 03/15/21 Primary Care Provider: Chin Chief Complaint: diabetes Physical Examination - Vital Signs Temperature: 97.9 F Blood Pressure: 117/89 Pulse: 77 Respirations: 18 Pulse Ox (%): 98 Assessment And Plan - Plan 1. Acute kidney injury on transplanted kidney, secondary to prerenal, on the recovery phase. I am going to continue current hydration. I am going to resume cyclosporine and we will monitor the patient. I agree with aggressive insulin given the glucose diuresis, worsening of the kidney function, and we will monitor. Please avoid any ZUNILDA inhibitor or ARB for the time being. 2. Hyponatremia secondary to hyperglycemia with depletional hyponatremia secondary to glucose diuresis. a. I am going to continue on IV hydration. I agree with current aggressive control for the diabetes. 3. Kidney transplant, chronic kidney disease stage 5 with acute kidney injury as above. Resume cyclosporine. Continue IV fluid. 4. Hypertension, controlled, optimal. Keep holding any ZUNILDA inhibitor or ARB. I agree with beta-pamella and calcium channel pamella. 5. Diabetes as by primary. Physician Review: Patient Assessed, Agree with Above Assessment and Plan
--- NOTE | 2021-03-15 12:10 | P.DS ---
Admission Date: 03/14/21 Discharge Date: 03/15/21 Primary Care Provider: Chin Disposition: ROUTINE DISCHARGE Discharge Condition: GOOD Reason for Admission: diabetes - Problems (1) Diabetes 1.5, managed as type 2 Current Visit: Yes Status: Acute (2) Acute on chronic renal failure Current Visit: Yes Status: Acute Qualifiers: Chronic kidney disease stage: stage 3 (moderate) (3) Status post kidney transplant Onset Date: 12/03/15 Current Visit: No Status: Acute (4) Hypertension Onset Date: 12/03/15 Current Visit: No Status: Chronic Qualifiers: Hypertension type: primary hypertension Qualified Code(s): I10 - Essential (primary) hypertension Brief History of Present Illness: Patient was at work when he had a syncopal episode. He was brought to the ER. found to have an elevated sugar in the 600. The patient has been having some elevated glucose in Jan. The pt has been having nocturia and increased thirst. The patient also has an elevated creatine. His creatine was 1.57 a month ago. The patient is currently feeling well. Hospital Course: will discharge the patient on lantus and Farxiga. Have him follow up in a week to retest his creatine. Will work on controlling his sugars and cholesterol and refering to diabetic education Vital Signs/Physical Exam: Temp Pulse Resp BP Pulse Ox 97.9 F 77 18 117/89 98 03/15/21 10:05 03/15/21 10:05 03/15/21 10:05 03/15/21 10:05 03/15/21 10:05 General: Alert, In no apparent distress HEENT: Atraumatic, PERRLA, EOMI Neck: Supple, JVD not distended Respiratory: Clear to auscultation bilaterally, Normal air movement Cardiovascular: Regular rate/rhythm, Normal S1 S2 Gastrointestinal: Normal bowel sounds, No tenderness Musculoskeletal: No tenderness Integumentary: No rashes Neurological: Normal speech, Normal tone, Normal affect Lymphatics: No axilla or inguinal lymphadenopathy Laboratory Data at Discharge: WBC 9.90 K/uL (4.3-10.9) D 03/14/21 05:17 Hgb 13.0 g/dL (13.6-17.9) L 03/14/21 05:17 Hct 37.9 % (39.6-49.0) L 03/14/21 05:17 Plt Count 247 K/uL (152-406) 03/14/21 05:17 PT 10.5 SECONDS (9.5-12.5) 03/13/21 09:07 INR 0.91 03/13/21 09:07 Sodium 137 mmol/L (136-145) 03/15/21 08:37 Potassium 4.3 mmol/L (3.5-5.1) 03/15/21 08:37 BUN 21 mg/dL (7-18) H 03/15/21 08:37 Creatinine 1.54 mg/dL (0.55-1.3) H 03/15/21 08:37 Glucose 237 mg/dL (74-106) H 03/15/21 08:37 Uric Acid 6.7 mg/dL (3.5-7.2) 03/14/21 05:17 Phosphorus 2.3 mg/dL (2.5-4.9) L 03/15/21 08:37 Magnesium 2.1 mg/dL (1.8-2.4) 03/14/21 05:17 Total Bilirubin 0.6 mg/dL (0.2-1.0) 03/13/21 09:07 AST 28 U/L (15-37) 03/13/21 09:07 ALT 50 U/L (12-78) 03/13/21 09:07 Alkaline Phosphatase 119 U/L (45-117) H 03/13/21 09:07 Troponin I < 0.02 ng/mL (0.0-0.045) 03/14/21 05:17 Triglycerides 733 mg/dL (<150) H 03/14/21 05:17 Cholesterol 245 mg/dL (<200) H 03/14/21 05:17 LDL Cholesterol Direct 114 mg/dL (100-129) 03/14/21 05:17 HDL Cholesterol 33 mg/dL (40-60) L 03/14/21 05:17 Cholesterol/HDL Ratio 7.42 03/14/21 05:17 Home Medications: Valsartan/Hydrochlorothiazide [Valsartan-Hctz 80-12.5 mg Tab] 80 mg PO DAILY 03/13/21 cycloSPORINE [Cyclosporine] 100 mg PO BID 03/13/21 dilTIAZem HCL [Diltiazem 24Hr ER (Xr)] 240 mg PO DAILY 03/13/21 mycophenolate mofetiL [Mycophenolate Mofetil] 1,000 mg PO BID 03/13/21 predniSONE [Prednisone*] 5 mg PO DAILY 03/13/21 Atorvastatin Calcium [Lipitor] 40 mg PO BEDTIME tab 03/15/21 Dapagliflozin Propanediol [Farxiga] 10 mg PO DAILY 90 Days #90 tab 03/15/21 Insulin Glargine,Hum.rec.anlog [Semglee] 20 unit SQ DAILY 30 Days #600 ml 03/15/21 New Medications: Dapagliflozin Propanediol [Farxiga] 10 mg PO DAILY 90 Days #90 tab Insulin Glargine,Hum.rec.anlog [Semglee] 20 unit SQ DAILY 30 Days #600 ml Diet: ADA Activity: Ad miguel angel Followup: David Neely MD [Primary Care Provider] - 1 Week Time spent managing pt's care (in minutes): 30
[2021-03-15 12:51] VITALS: BP 157/93; TEMP 97.5
[2021-03-15 13:31] VITALS: O2SAT 100
== END 2021-03-15 14:09 | disposition home or self-care (01) | DRG 638 ==
LOC: ER 08:14 → ERHOLD 12:45 → 2ND 14:06 → OBSVTOIN 03-14 22:07
PROVIDERS: ADMIT Internal Medicine; ATTEND Internal Medicine
DX: E11.65 Type 2 diabetes mellitus with hyperglycemia (principal); N17.9 Acute kidney failure, unspecified; Z94.0 Kidney transplant status; E87.1 Hypo-osmolality and hyponatremia; I12.9 Hypertensive chronic kidney disease with stage 1 through stage 4 chronic kidney disease, or unspecified chronic kidney disease; N18.30 Chronic kidney disease, stage 3 unspecified; E11.22 Type 2 diabetes mellitus with diabetic chronic kidney disease; F17.200 Nicotine dependence, unspecified, uncomplicated; K76.0 Fatty (change of) liver, not elsewhere classified; E78.5 Hyperlipidemia, unspecified; E86.0 Dehydration; E66.9 Obesity, unspecified; Z68.36 Body mass index [BMI] 36.0-36.9, adult; Z79.52 Long term (current) use of systemic steroids; Z79.899 Other long term (current) drug therapy; Z79.01 Long term (current) use of anticoagulants; Z90.49 Acquired absence of other specified parts of digestive tract; Z86.718 Personal history of other venous thrombosis and embolism; Z79.4 Long term (current) use of insulin; Z20.822 Contact with and (suspected) exposure to COVID-19
CPT/HCPCS: 36415; 70450; 71045; 74176; 76377; 80048; 80061; 80069; 80076; 81001; 81003; 82570; 82652; 82947; 83036; 83735; 83880; 83970; 84100; 84156; 84443; 84484; 84550; 85025; 85610; 93005; 93880; 93970; 96361; 96372; 96374; 96375; 99284; G0378; J2405; J3010; J7030; U0003

== ENCOUNTER 2021-05-13 11:34 | Emergency (ER) | payer OTHER ==
--- OUTSIDE RECORDS SUMMARY | 2021-05-13 11:38 | XMS REPORT | Continuity of Care Document ---
:1965 Author Organization [facility] t Address [address] [place] [address] Care Team Providers Name Role Phone Genie Klein MD. Primary Care Physician CAROLE Attending Clinician Unavailable LEANNE Attending Clinician Unavailable Félix SÁNCHEZ, D Attending Clinician Unavailable Only, Test Attending Clinician Unavailable Shadi ALVAREZ, A Attending Clinician Maria Elena HSU Attending Clinician [...] Date Date Clinician NO KNOWN Drug Active [facility] ALLERGIE Class ity of [facility] Family History Family Member Diagnosis Comments Start Date Stop Date Source Natural father Hypertension [facility] Natural mother Heart disease [facility] Natural mother Hypertension [facility] Natural sister Diabetes [facility] Social History Social Habit Start Date Stop Date Quantity Comments Source Sex Assigned At [facility] y of [facility] Exposure to [facility] sure [facility] SARS-CoV-2 (event) Tobacco use and 2018-01-18 2018-01-18 Never used [facility] exposure 00:00:00 00:00:00 Alcohol intake 2018-01-18 2018-01-18 Current [facility] 00:00:00 00:00:00 non-drinker of alcohol (finding) Tobacco Comment 2018-01-15 2018-01-15 "Quit 2-3 months Met [facility] 00:00:00 00:00:00 ago" Smoking Status Start Date Stop Date Source Unknown if ever smoked [facility] Former smoker 2018-01-18 00:00:00 2018-01-18 00:00:00 [facility] Current 2016-03-26 00:00:00 [facility] sm[facility] Center Medications Ordered Filled Start [...] Performed URINE CULTURE 2020-11-26 14:11:00 Juan Klein [facility] HC COMPLETE BLD COUNT 2020-11-26 14:11:00 Juan Klein [facility] W/AUTO DIFF MAGNESIUM LEVEL 2020-11-26 14:11:00 Juan Klein MGeorgina [facility] PHOSPHORUS LEVEL 2020-11-26 14:11:00 Juan Klein [facility] URIC ACID LEVEL 2020-11-26 14:11:00 Juan Klein [facility] LDH 2020-11-26 14:11:00 Juan Klein MGeorgina [facility] URINALYSIS SCREEN AND 2020-11-26 14:11:00 Juan Klein MGeorgina [facility] MICROSCOPY, WITH REFLEX TO CULTURE CREATININE LEVEL, URINE, 2020-11-26 14:11:00 Juan Klein [facility] RANDOM PROTEIN, URINE, RANDOM 2020-11-26 14:11:00 Juan Klein [facility] CYCLOSPORINE LEVEL, 2020-11-26 14:11:00 Juan Klein [facility] RANDOM PARATHYROID HORMONE 2020-11-26 14:11:00 Juan Klein [facility] VITAMIN D 25 HYDROXY 2020-11-26 14:11:00 Juan Klein [facility] LEVEL COMPREHENSIVE METABOLIC 2020-11-26 14:11:00 Juan Klein [facility] PANEL ESTIMATED GFR 2020-11-26 14:11:00 Juan Klein [facility] URINE CULTURE 2020-09-13 15:29:00 Juan Klein [facility] HC COMPLETE BLD COUNT 2020-09-13 15:29:00 Juan Klein [facility] W/AUTO DIFF MAGNESIUM LEVEL 2020-09-13 15:29:00 Juan Klein MGeorgina [facility] PHOSPHORUS LEVEL 2020-09-13 15:29:00 Juan Klein [facility] URIC ACID LEVEL 2020-09-13 15:29:00 Juan Klein [facility] LDH 2020-09-13 15:29:00 Juan Klein MGeorgina [facility] URINALYSIS SCREEN AND 2020-09-13 15:29:00 Juan Klein [facility] MICROSCOPY, WITH REFLEX TO CULTURE CREATININE LEVEL, URINE, 2020-09-13 15:29:00 Juan Klein [facility] RANDOM PROTEIN, URINE, RANDOM 2020-09-13 15:29:00 Juan Klein [facility] COMPREHENSIVE METABOLIC 2020-09-13 15:29:00 Juan Klein [facility] PANEL CYCLOSPORINE LEVEL, 2020-09-13 15:29:00 Juan Klein [facility] RANDOM PARATHYROID HORMONE 2020-09-13 15:29:00 Juan Klein [facility] VITAMIN D 25 HYDROXY 2020-09-13 15:29:00 Juan Klein [facility] LEVEL ESTIMATED GFR 2020-09-13 15:29:00 Juan Klein MGeorgina [facility] SMEAR REVIEW 2020-09-13 15:29:00 Juan Klein MGeorgina [facility] URINE CULTURE 2020-09-03 13:21:00 Juan Klein MGeorgina [facility] HC COMPLETE BLD COUNT 2020-09-03 13:21:00 Juan Klein [facility] W/AUTO DIFF MAGNESIUM LEVEL 2020-09-03 13:21:00 Juan Klein MGeorgina [facility] PHOSPHORUS LEVEL 2020-09-03 13:21:00 [facility] URIC ACID LEVEL 2020-09-03 13:21:00 Juan Klein MGeorgina [facility] LDH 2020-09-03 13:21:00 Juan Klein MGeorgina [facility] URINALYSIS SCREEN AND 2020-09-03 13:21:00 Juan Klein MGeorgina [facility] MICROSCOPY, WITH REFLEX TO CULTURE CREATININE LEVEL, URINE, 2020-09-03 13:21:00 Juan Klein [facility] RANDOM PROTEIN, URINE, RANDOM 2020-09-03 13:21:00 Juan Klein [facility] METABOLIC 2020-09-03 13:21:00 Juan Klein [facility] PANEL CYCLOSPORINE LEVEL, 2020-09-03 13:21:00 Juan Klein [facility] RANDOM PARATHYROID HORMONE 2020-09-03 13:21:00 Juan Klein [facility] VITAMIN D 25 HYDROXY 2020-09-03 13:21:00 [facility]FR 2020-09-03 13:21:00 [facility] URINE CULTURE 2020-06-06 15:13:00 [facility] COMPREHENSIVE METABOLIC 2020-06-06 15:13:00 [facility] PANEL HC COMPLETE BLD COUNT 2020-06-06 15:13:00 [facility] W/AUTO DIFF MAGNESIUM LEVEL 2020-06-06 15:13:00 [facility] PHOSPHORUS LEVEL 2020-06-06 15:13:00 [facility] URIC ACID LEVEL 2020-06-06 15:13:00 [facility] LDH 2020-06-06 15:13:00 [facility] URINALYSIS SCREEN AND 2020-06-06 15:13:00 [facility] MICROSCOPY, WITH REFLEX TO CULTURE CREATININE LEVEL, URINE, 2020-06-06 15:13:00 [facility] RANDOM CYCLOSPORINE LEVEL, 2020-06-06 15:13:00 [facility] RANDOM PROTEIN, URINE, RANDOM 2020-06-06 15:13:00 [facility] ESTIMATED GFR 2020-06-06 15:13:00 [facility] URINE CULTURE 2020-01-30 12:52:00 [facility] COMPREHENSIVE METABOLIC 2020-01-30 12:52:00 [facility] PANEL HC COMPLETE BLD COUNT 2020-01-30 12:52:00 [facility] W/AUTO DIFF MAGNESIUM LEVEL 2020-01-30 12:52:00 [facility] PHOSPHORUS LEVEL 2020-01-30 12:52:00 [facility] URIC ACID LEVEL 2020-01-30 12:52:00 [facility] LDH 2020-01-30 12:52:00 [facility] URINALYSIS SCREEN AND 2020-01-30 12:52:00 Juan Klein [facility] MICROSCOPY, WITH REFLEX TO CULTURE CREATININE LEVEL, URINE, 2020-01-30 12:52:00 Juan Klein [facility] RANDOM PROTEIN, URINE, RANDOM 2020-01-30 12:52:00 Juan Klein [facility] CYCLOSPORINE LEVEL, 2020-01-30 12:52:00 Juan Klein [facility] RANDOM ESTIMATED GFR 2020-01-30 12:52:00 Juan Klein [facility] Plan of Care Planned Activity Planned Date Details Comments Source Future Scheduled Test COVID-19 VACCINE (1) [facility] [code = COVID-19 VACCINE (1)] Future Scheduled Test Hepatitis C screening [facility] (procedure) [code = 937123893] Future Scheduled Test COLONOSCOPY SCREENING [facility] [code = COLONOSCOPY SCREENING] Future Scheduled Test SHINGLES VACCINES (#1) [facility] [code = SHINGLES VACCINES (#1)] Future Scheduled Test INFLUENZA VACCINE [code [facility] = INFLUENZA VACCINE] Encounters Start End Encounter Admission Attending Care Care Encounter Source Date/Time Date/Time Type Type Clinicians Facility Department ID 2021-04-15 2021-04-15 [id number] [place] 00:00:00 00:00:[address] 2021-03-18 2021-03-18 [facility] [id number] [place] 00:00:00 00:00:[address] 2021-03-11 2021-03-11 [facility] [id number] [place] 00:00:00 00:00:[address] 2021-02-28 2021-02-28 [facility] [id number] [place] 00:00:00 00:00:[address] 2020-11-26 2020-11-26 Lab Carole, 1.2.840.1 [id number] [id number] Methodi 08:48:26 08:53:26 Juan Cov[address]ubias [address]29.1.[address] 3.430.2.7 Hospit a .3.689973 l .8 2020-11-26 2020-11-26 Travel 1.2.840.1 1.2.152.980 5095 [id number] [facility] 00:00:00 00:00:[address] 3.430.2.7 0.2.7.3.698 Ho spita .3.393165 084.8 l .8 2020-11-15 2020-11-15 Travel 1.2.840.1 1.2.844.367 4994 [id number] [facility] 00:00:00 00:00:[address] 3.430.2.7 0.2.7.3.698 Ho spita .3.105837 084.8 l .8 2020-09-13 2020-09-13 Lab Carole, 1.2.840.1 [id number] [facility] 10:07:34 10:12:34 Juan Covarrubias [address]672.1.[address] 3.430.2.7 Hospit a .3.046179 l .8 2020-09-13 2020-09-13 Travel 1.2.840.1 1.2.832.070 1797 [id number] [facility] 00:00:00 00:00:[address] 3.430.2.7 0.2.7.3.698 Ho spita .3.198669 084.8 l .8 2020-09-03 2020-09-03 Lab Carole, 1.2.840.1 [id number] [facility] 07:58:11 08:03:11 Juan [address]ias [address]12.1.[address] 3.430.2.7 Hospit a .3.328435 l .8 2020-09-03 2020-09-03 Travel 1.2.840.1 1.2.436.987 1143 [id number] [facility]i 00:00:00 00:00:[address] 3.430.2.7 0.2.7.3.698 Ho spita .3.591960 084.8 l .8 2020-08-29 2020-08-29 Travel 1.2.840.1 1.2.587.406 6962 007289 [facility]i 00:00:00 00:00:[address] 3.430.2.7 0.2.7.3.698 Ho spita .3.524989 084.8 l .8 2020-08-13 2020-08-13 Travel 1.2.840.1 1.2.372.634 9029 809900 [facility]i 00:00:00 00:00:[address] 3.430.2.7 0.2.7.3.698 Ho spita .3.870938 084.8 l .8 2020-07-30 2020-07-30 Travel 1.2.840.1 1.2.853.044 9742 [id number] [facility]i 00:00:00 00:00:[address] 3.430.2.7 0.2.7.3.698 Ho spita .3.280596 084.8 l .8 2020-06-07 2020-06-07 Lab Leanne, 1.2.840.1 [id number] 0716 Methodi 07:23:50 07:28:50 Philipp PrescottGeorgina 86538.1.[address] 3.430.2.7 Hospit a .3.981378 l .8 2020-06-06 2020-06-06 Travel 1.2.840.1 1.2.710.630 4073 [id number] [facility] 00:00:00 00:00:[address] 3.430.2.7 0.2.7.3.698 Ho spita .3.184834 084.8 l .8 2020-03-18 2020-03-18 WINSTON Salazar 1.2.731.436 [id number] 00:00:00 00:00:00 Gabriela TARIQ 350.1.13.10 [facility] 4.2.7.2.686 [id number] 019 2020-03-18 2020-03-18 Telephone WINSTON Heard 1.2.722.996 [id number] [facility] 00:00:00 00:00:00 Gabriela TARIQ 350.1.13.10 i ty [facility] 4.2.7.2.686 [place] as [id number] [address] 2020-03-16 2020-03-16 Laboratory Only, [facility] 1.2.840.114 [id number] 15:00:29 15:15:29 Only Test Karsten 350.1.13.10 [place] 4.2.7.2.686 [place] [id number] [facility] 2020-03-16 2020-03-16 Laboratory Only, [facility] Test [facility] 1.2.840. 114 [id number] Univers 15:00:29 15:15:29 Only Tay Hsu 350.1.13.10 ity [facility] 4.2.7.2.686 [place] [facility] [id number] [address] 2020-03-16 2020-03-16 Outpatient R SHADI [facility] [id number] Univers 15:15:00 15:15:00 TAY gant [facility] 2020-01-30 2020-01-30 Sol Klein, 1.2.840.1 [id number] 2100 [id number] Methodi 04:42:28 04:47:28 Juan Covarrubias [address]10.1.[address] 3.430.2.7 Hospit a .3.910327 l .8 2020-01-30 2020-01-30 Travel 1.2.840.1 1.2.161.248 5140 [id number] [facility] 00:00:00 00:00:[address] 3.430.2.7 0.2.7.3.698 Ho spita .3.412449 084.8 l .8 2020-01-23 2020-01-23 Lab Carole, 1.2.840.1 [id number] 2100 [id number] Methodi 04:55:00 05:00:00 Juan Covarrubias [address]46.1.[address] 3.430.2.7 Hospit a .3.747847 l .8 2020-01-23 2020-01-23 Travel 1.2.840.1 1.2.619.600 0627 [id number] Methodi 00:00:00 00:00:[address] 3.430.2.7 0.2.7.3.698 Ho spita .3.750706 084.8 l .8 2020-01-09 2020-01-09 Lab Carole, 1.2.840.1 [id number] 2099 [id number] Methodi 05:05:00 05:10:00 Juan Covarrubias [address]164.1.[address] 3.430.2.7 Hospit a .3.991367 l .8 2020-01-09 2020-01-09 Travel 1.2.840.1 1.2.736.409 4699 [id number] Methodi 00:00:00 00:00:[address] 3.430.2.7 0.2.7.3.698 Ho spita .3.757523 084.8 l .8 Results Test Description Test Time Test Comments Results Result Comments Source Protein, urine, random 2020-11-26 21:24:19 Test Item Value Reference Range Interpretation Comme nts Protein, urine random (test code = 2888-6) 484 [facility], [id number] 16:47:21 Test Item Value Reference Range Interpretation Comments Creatinine, urine, random (test 201 mg/dL code = 20073-6) [facility], with reflex to culture 2020-11-26 15:18:17 Test Item Value Reference Range Interpretation Comments Specimen site (test Clean catch code = 5000326) Color, UA (test code = Yellow 5778-6) Appearance, UA (test Clear code = 5767-9) Specific gravity, UA 1.001-1.035 (test code = 5811-5) pH, UA (test code = 5.0-8.5 5803-2) Protein, UA (test code 3+ Negative A = 38001-3) Glucose, UA (test code 1+ Negative A = 87146-0) Ketones, UA (test code Negative Negative = 2514-8) Bilirubin, UA (test Negative Negative code = 5770-3) Blood, UA (test code = Moderate Negative A 5794-3) Nitrite, UA (test code Negative Negative = 5802-4) Urobilinogen, UA (test <2.0 <2.0 code = 89058-3) Leukocyte esterase, UA Negative Negative (test code = 5799-2) WBC, UA (test code = See_Comment [Autom ated 5821-4) message] The sy stem which generated this result transmitted reference range : 0 - 1 /HPF. The reference range was not used to interpret this result as normal/abnormal . RBC, UA (test code = See_Comment H [Autom ated 36588-5) message] The sy stem which generated this result transmitted reference range : 0 - 5 /HPF. The reference range was not used to interpret this result as normal/abnormal . Bacteria, UA (test code None seen None seen = 29572-9) Yeast, UA (test code = None seen 46987-3) Yeast with None seen pseudohyphae, UA (test code = 49009-5) Hyaline casts, UA (test See_Comment [Au tomated code = 5796-8) message] The system which generated this result transmitted reference range : /LPF. The refer ence range was not u sed to interpret th is result as normal/abnormal . Lab Interpretation Abnormal (test code = 00255-4) [facility] [id number] 14:41:27 Test Item Value Reference Range Interpretation Comments Urine culture (test SEE COMMENT Bacteriu deandre screen code = 3968359) negative. [facility])2019-09-17 04:32:00 Test Item Value Reference Range Interpretation Comments SARS-COV2/RT-PCR (test Not Detected Not Detected, Negative code = 5067740) SARS-COV-2 [facility] (test code = 3991108) Negative results do not preclude SARS-CoV-2 infection [...] of the Act.Fact Sheet for Healthcare Pro viders:https://www.[employer].AmVac/Documents/Xpert%20Xpress%20SARS%20CoV-2/Fact%20Sh eets/3023802%71TDEY-BBD-5%20HEALTHCARE%20PROVIDERS%20FACT%20SHEET.pdfFact Sheet for Healthcare Patients:https://www.[employer]/Documents/Xpert%20Xpress%20SARS%20CoV-2/Fact%20Sheets/3023801%20SARS-COV -2%20PATIENT%20FACT%20SHEET.pdfPerforming Laboratory:[facility] [place] [address]
--- NOTE | 2021-05-13 13:30 | ER ---
Nurse's Notes [facility] Name: Shoaib Freitas Jr Age: 56 yrs Sex: Male : 1965 Arrival Date: 05/13/2021 Time: 11:35 Bed Waiting Private MD: Diagnosis: Assessment: 05/13 13:28 Reassessment: called from [facility] multiple times since registering to triage, no answer. ss Unable to locate patient. ED Course: :35 Patient arrived in ED. as Administered Medications: No medications were administered Outcome: 13:28 Eloped from waiting room, before seeing physician ss 13:30 Patient left the ED. ss Signatures: Angelina Cramer Shelby, RN RN ss
== END 2021-05-13 13:30 | disposition left against medical advice (07) ==
LOC: ER 11:34
DX: Z53.21 Procedure and treatment not carried out due to patient leaving prior to being seen by health care provider (principal)

== ENCOUNTER 2021-07-07 14:40 | Observation (INO) | payer OTHER ==
--- OUTSIDE RECORDS SUMMARY | 2021-07-07 14:43 | XMS REPORT | Continuity of Care Document ---
:1965 Author Organization [facility] t Address [address] [place] [address] Care Team Providers Name Role Phone Ernie ALVAREZ, Alberto Primary Care Physician Ernie ALVAREZ, Alberto Attending Clinician Satish Perdomo MD Attending Clinician Félix SÁNCHEZ, D Attending Clinician Unavailable Only, [...] Active [facility] it[facility] of [facility] Family History Family Member Diagnosis Comments Start Date Stop Date Source Natural father Hypertension [facility] Natural mother Heart disease [facility] Natural mother Hypertension [facility] Natural sister Diabetes [facility] Social History Social Habit Start Date Stop Date Quantity Comments Source Sex Assigned At [facility] to [facility] sure [facility] SARS-[facility]2 (event) Alcohol intake 2018-01-18 2018-01-18 Current [facility] 00:00:00 00:00:00 non-drinker of alcohol (finding) Tobacco use and 2018-01-15 2018-01-15 Smokeless tobacco [facility] exposure 00:00:00 00:00:00 non-user Tobacco Comment 2018-01-15 2018-01-15 "Quit 2-3 months [facility] 00:00:00 00:00:00 ago" Smoking Status Start Date Stop Date Source Unknown if ever smoked [facility] Ex-smoker 2018-01-15 00:00:00 2018-01-15 00:00:00 [facility] Current some 2016-03-26 00:00:00 [facility] smoker [facility] Medications Ordered Filled Start Stop Current Ordering Indication Dosage Frequency Signature Comments Components Source Medication Medication Date Date Medication? Clinician (SIG) Name Name pantoprazol 2017-04 Yes 40mg Q.5D Take 40 mg Methodi e 0-[address] (PROTONIX) 10:18: (two) Hospit a 40 MG EC 37 times a l tablet day. promethazin 2017-04 Yes 50mg Q12H Take 50 mg Methodi e 0-[address] (PHENERGAN) 10:18: every 12 Ho spita 50 MG 37 (twelve) l tablet hours as needed for nausea or vomiting. diltiazem 2017-04 Yes 240mg QD Take 240 Met hodi CD 0-[address] (CardIZEM 10:18: mouth Hospita CD) 240 MG 37 daily. l 24 hr capsule mycophenola 2017-04 Yes 500mg Q.5D Take 500 M ethodi te 0-[address] (CELLCEPT) 10:18: mouth 2 Hosp yonny 500 mg 37 (two) l tablet times a day. valsartan 2017-04 Yes 40mg QD Take 40 mg Me thodi (DIOVAN) 40 0-[address] MG tablet 10:18: daily. Hospit a 37 l Procedures Procedure Date / Time Performing Clinician Source Performed URINE CULTURE 2021-04-15 14:00:00 [facility] HC COMPLETE BLD COUNT 2021-04-15 14:00:00 [facility] W/AUTO DIFF MAGNESIUM LEVEL 2021-04-15 14:00:00 [facility] PHOSPHORUS LEVEL 2021-04-15 14:00:00 [facility] URIC ACID LEVEL 2021-04-15 [facility] LDH 2021-04-15 14:00:00 [facility] URINALYSIS SCREEN AND 2021-04-15 14:00:00 [facility] MICROSCOPY, WITH REFLEX TO CULTURE PROTEIN, URINE, RANDOM 2021-04-15 14:00:00 [facility] CREATININE LEVEL, URINE, 2021-04-15 14:00:00 [facility] RANDOM CYCLOSPORINE LEVEL, 2021-04-15 14:00:00 [facility] RANDOM COMPREHENSIVE METABOLIC 2021-04-15 14:00:00 [facility] PANEL ESTIMATED GFR 2021-04-15 14:00:00 [facility] URINE CULTURE 2021-03-18 14:23:00 [facility] HC COMPLETE BLD COUNT 2021-03-18 14:23:00 [facility] W/AUTO DIFF MAGNESIUM LEVEL 2021-03-18 14:23:00 [facility] PHOSPHORUS LEVEL 2021-03-18 14:23:00 [facility] URIC ACID LEVEL 2021-03-18 14:23:00 [facility] LDH 2021-03-18 14:23:00 [facility] CREATININE LEVEL, URINE, 2021-03-18 14:23:00 [facility] RANDOM URINALYSIS SCREEN AND 2021-03-18 14:23:00 [facility] MICROSCOPY, WITH REFLEX TO CULTURE PROTEIN, URINE, RANDOM 2021-03-18 14:23:00 [facility] METABOLIC 2021-03-18 14:23:00 [facility] PANEL CYCLOSPORINE LEVEL, 2021-03-18 14:23:00 [facility] RANDOM ESTIMATED GFR 2021-03-18 14:23:00 [facility] HC COMPLETE BLD COUNT 2021-03-11 15:30:00 [facility] W/AUTO DIFF MAGNESIUM LEVEL 2021-03-11 15:30:00 [facility] PHOSPHORUS LEVEL 2021-03-11 15:30:00 [facility] URIC ACID LEVEL 2021-03-11 15:30:00 [facility] LDH 2021-03-11 15:30:00 [facility] COMPREHENSIVE METABOLIC 2021-03-11 15:30:00 [facility] PANEL CYCLOSPORINE LEVEL, 2021-03-11 15:30:00 [facility] RANDOM ESTIMATED GFR 2021-03-11 15:30:00 [facility] URINE CULTURE 2021-03-11 15:15:00 [facility] URINALYSIS SCREEN AND 2021-03-11 15:15:00 [facility] MICROSCOPY, WITH REFLEX TO CULTURE PROTEIN, URINE, RANDOM 2021-03-11 15:15:00 [facility] CREATININE LEVEL, URINE, 2021-03-11 15:15:00 [facility] RANDOM URINE CULTURE 2021-02-28 15:08:00 [facility] HC COMPLETE BLD COUNT 2021-02-28 15:08:00 [facility] W/AUTO DIFF MAGNESIUM LEVEL 2021-02-28 15:08:00 [facility] PHOSPHORUS LEVEL 2021-02-28 15:08:00 [facility] URIC ACID LEVEL 2021-02-28 15:08:00 [facility] LDH 2021-02-28 15:08:00 [facility] URINALYSIS SCREEN AND 2021-02-28 15:08:00 [facility] MICROSCOPY, WITH REFLEX TO CULTURE PROTEIN, URINE, RANDOM 2021-02-28 15:08:00 [facility] CREATININE LEVEL, URINE, 2021-02-28 15:08:00 [facility] RANDOM COMPREHENSIVE METABOLIC 2021-02-28 15:08:00 [facility] PANEL [id number] TACROLIMUS LEVEL, 2021-02-28 15:08:00 [facility] RANDOM CYCLOSPORINE LEVEL, 2021-02-28 15:08:00 [facility] RANDOM ESTIMATED GFR 2021-02-28 15:08:00 [facility] URINE CULTURE 2020-11-26 14:11:00 [facility] HC COMPLETE BLD COUNT 2020-11-26 14:11:00 [facility] W/AUTO DIFF MAGNESIUM LEVEL 2020-11-26 14:11:00 [facility] PHOSPHORUS LEVEL 2020-11-26 14:11:00 [facility] URIC ACID LEVEL 2020-11-26 14:11:00 [facility] LDH 2020-11-26 14:11:00 [facility] URINALYSIS SCREEN AND 2020-11-26 14:11:00 [facility] MICROSCOPY, WITH REFLEX TO CULTURE CREATININE LEVEL, URINE, 2020-11-26 14:11:00 [facility] RANDOM PROTEIN, URINE, RANDOM 2020-11-26 14:11:00 [facility] CYCLOSPORINE LEVEL, 2020-11-26 14:11:00 [facility] RANDOM PARATHYROID HORMONE 2020-11-26 14:11:00 [facility] HY[facility]OXY 2020-11-26 14:11[facility] METABOLIC 2020-11-26 14:11:00 [facility] PANEL ESTIMATED GFR 2020-11-26 14:11:00 Juan Klein [facility] URINE CULTURE 2020-09-13 15:29:00 Juan Klein [facility] HC COMPLETE BLD COUNT 2020-09-13 15:29:00 [facility] W/AUTO DIFF MAGNESIUM LEVEL 2020-09-13 15:29:00 Ernie [facility] PHOSPHORUS LEVEL 2020-09-13 15:29[facility]00 [facility] 2020-09-13 15:29:00 Juan Klein [facility] LDH 2020-09-13 15:29:00 Juan Klein [facility] URINALYSIS SCREEN AND 2020-09-13 15:29:00 [facility] MICROSCOPY, WITH REFLEX TO CULTURE CREATININE LEVEL, URINE, 2020-09-13 15:29:00 [facility] RANDOM PROTEIN, URINE, RANDOM 2020-09-13 15:29:00 [facility] COMPREHENSIVE METABOLIC 2020-09-13 15:29:00 [facility] PANEL CYCLOSPORINE LEVEL, 2020-09-13 15:29:[address] [facility] RANDOM PARATHYROID HORMONE 2020-09-13 15:29:00 [facility] 25 HYDROXY 2020-09-13 15:29:00 Juan Klein [facility] LEVEL ESTIMATED GFR 2020-09-13 15:29:00 [facility] SMEAR REVIEW 2020-09-13 15:29:00 Juan Klein [facility] URINE CULTURE 2020-09-03 13:21:00 [facility] COMPLETE BLD COUNT 2020-09-03 13:21:00 [facility] W/AUTO DIFF MAGNESIUM LEVEL 2020-09-03 13:21:00 [facility] PHOSPHORUS LEVEL 2020-09-03 13:21:00 [facility] URIC ACID LEVEL 2020-09-03 13:21:00 [facility] LDH 2020-09-03 13:21:00 [facility] URINALYSIS SCREEN AND 2020-09-03 13:21:00 [facility] MICROSCOPY, WITH REFLEX TO CULTURE CREATININE LEVEL, URINE, 2020-09-03 13:21:00 [facility] RANDOM PROTEIN, URINE, RANDOM 2020-09-03 13:21:00 [facility] COMPREHENSIVE METABOLIC 2020-09-03 13:21:00 [facility] PANEL CYCLOSPORINE LEVEL, 2020-09-03 13:21:00 [facility] RANDOM PARATHYROID HORMONE 2020-09-03 13:21:00 [facility] VITAMIN D 25 HYDROXY 2020-09-03 13:21:00 [facility] LEVEL ESTIMATED GFR 2020-09-03 13:21:00 [facility] URINE CULTURE 2020-06-06 15:13:00 [facility] COMPREHENSIVE METABOLIC 2020-06-06 15:13:00 [facility] PANEL HC COMPLETE BLD COUNT 2020-06-06 15:13:00 [facility] W/AUTO DIFF MAGNESIUM LEVEL 2020-06-06 15:13:00 [facility] PHOSPHORUS LEVEL 2020-06-06 15:13:00 [facility] URIC ACID LEVEL 2020-06-06 15:13:00 [facility] LDH 2020-06-06 15:13:00 [facility] URINALYSIS SCREEN AND 2020-06-06 15:13:00 Leanne, [facility] MICROSCOPY, WITH REFLEX TO CULTURE CREATININE LEVEL, URINE, 2020-06-06 15:13:00 [facility] Micheal [facility] RANDOM CYCLOSPORINE LEVEL, 2020-06-06 15:13:00 [facility] RANDOM PROTEIN, URINE, RANDOM 2020-06-06 15:13:00 [facility] ESTIMATED GFR 2020-06-06 15:13:00 [facility] Plan of Care Planned Activity Planned Date Details Comments Source Future Scheduled 2021-04-15 Hepatitis C screening [facility] Test 08:27:26 (procedure) [code = 624778836] Future Scheduled 2021-04-15 COLONOSCOPY SCREENING [facility] Test 08:27:26 [code = COLONOSCOPY SCREENING] Future Scheduled 2021-04-15 SHINGLES VACCINES Method [facility] Test 08:27:26 (#1) [code = SHINGLES VACCINES (#1)] Future Scheduled 2021-04-15 COVID-19 VACCINE (2 - [facility] Test 08:27:26 Moderna risk 4-dose series) [code = COVID-19 VACCINE (2 - Moderna risk 4-dose series)] Future Scheduled 2021-04-15 INFLUENZA VACCINE Method [facility] Test 08:27:26 [code = INFLUENZA VACCINE] Encounters Start End Encounter Admission Attending Care Care Encounter Source Date/Time Date/Time Type Type Clinicians Facility Department ID 2021-04-16 2021-04-16 Lab Ernie, 1.2.840.1 [id number] Methodi 07:27:44 07:32:44 Juan Dom[address]205.1.[address] 3.430.2.7 Hospit a .3.659245 l .8 2021-04-15 2021-04-15 Travel 1.2.840.1 1.2.912.954 [id number] [id number] Methodi 00:00:00 00:00:[address] 3.430.2.7 0.2.7.3.698 Ho spita .3.043517 084.8 l .8 2021-03-18 2021-03-18 Lab Ernie, 1.2.840.1 [id number] [id number] Methodi 08:59:20 09:04:20 Juan Dominguez 54033.1.[address] 3.430.2.7 Hospit a .3.412170 l .8 2021-03-18 2021-03-18 Travel 1.2.840.1 1.2.009.370 9069 [id number] Methodi 00:00:00 00:00:[address] 3.430.2.7 0.2.7.3.698 Ho spita .3.541395 084.8 l .8 2021-03-11 2021-03-11 Lab Ernie, 1.2.840.1 [id number] 2099 [id number] Methodi 08:59:28 09:04:28 Juan Dominguez 23709.1.[address] 3.430.2.7 Hospit a .3.625152 l .8 2021-03-11 2021-03-11 Travel 1.2.840.1 1.2.300.735 7234 [id number] Methodi 00:00:00 00:00:[address] 3.430.2.7 0.2.7.3.698 Ho spita .3.623152 084.8 l .8 2021-03-01 2021-03-01 Lab Leanne, 1.2.840.1 [id number] Methodi 08:39:40 08:44:40 Micheal Covarrubias [address]84.1.[address] 3.430.2.7 Hospit a .3.326639 l .8 2021-02-28 2021-02-28 Travel 1.2.840.1 1.2.290.937 3950 [id number] Methodi 00:00:00 00:00:[address] 3.430.2.7 0.2.7.3.698 Ho spita .3.039225 084.8 l .8 2021-02-25 2021-02-25 Travel 1.2.840.1 1.2.204.585 0899 [id number] Methodi 00:00:00 00:00:[address] 3.430.2.7 0.2.7.3.698 Ho spita .3.019462 084.8 l .8 2020-11-26 2020-11-26 Lab Ernie, 1.2.840.1 [id number] Methodi 08:48:26 08:53:26 Juan Dominguez 24366.1.[address] 3.430.2.7 Hospit a .3.868258 l .8 2020-11-26 2020-11-26 Travel 1.2.840.1 1.2.952.973 8648 [id number] Methodi 00:00:00 00:00:[address] 3.430.2.7 0.2.7.3.698 Ho spita .3.864991 084.8 l .8 2020-11-15 2020-11-15 Travel 1.2.840.1 1.2.367.077 0644 [id number] Methodi 00:00:00 00:00:[address] 3.430.2.7 0.2.7.3.698 Ho spita .3.963643 084.8 l .8 2020-09-13 2020-09-13 Lab Ernie, 1.2.840.1 [id number] Methodi 10:07:34 10:12:34 Juan Dominguez 81002.1.[address] 3.430.2.7 Hospit a .3.458195 l .8 2020-09-13 2020-09-13 Travel 1.2.840.1 1.2.946.367 9319 [id number] Methodi 00:00:00 00:00:[address] 3.430.2.7 0.2.7.3.698 Ho spita .3.441524 084.8 l .8 2020-09-03 2020-09-03 Lab Ernie, 1.2.840.1 [id number] Methodi 07:58:11 08:03:11 Juan Dominguez 27802.1.[address] 3.430.2.7 Hospit a .3.792948 l .8 2020-09-03 2020-09-03 Travel 1.2.840.1 1.2.324.692 9008 [id number] Methodi 00:00:00 00:00:[address] 3.430.2.7 0.2.7.3.698 Ho spita .3.890125 084.8 l .8 2020-08-29 2020-08-29 Travel 1.2.840.1 1.2.923.473 1308 [id number] Methodi 00:00:00 00:00:[address] 3.430.2.7 0.2.7.3.698 Ho spita .3.139752 084.8 l .8 2020-08-13 2020-08-13 Travel 1.2.840.1 1.2.029.863 4572 122093 Methodi 00:00:00 00:00:[address] 3.430.2.7 0.2.7.3.698 Ho spita .3.967173 084.8 l .8 2020-07-30 2020-07-30 Travel 1.2.840.1 1.2.250.871 3273 [id number] Methodi 00:00:00 00:00:[address] 3.430.2.7 0.2.7.3.698 Ho spita .3.324802 084.8 l .8 2020-06-07 2020-06-07 Lab Leanne, 1.2.840.1 [id number] 5022 Methodi 07:23:50 07:28:50 Micheal Covarrubias 73064.1.[address] 3.430.2.7 Hospit a .3.895345 l .8 2020-06-06 2020-06-06 Travel 1.2.840.1 1.2.653.270 3949 [id number] Methodi 00:00:00 00:00:[address] 3.430.2.7 0.2.7.3.698 Ho spita .3.636557 084.8 l .8 2020-03-18 2020-03-18 Telephone WINSTON Heard 1.2.370.006 4627 8754 [facility] 00:00:00 00:00:00 Gabriela TARIQ 350.1.13.10 [facility] 4.2.7.2.686 [place] [id number] [address] 2020-03-18 2020-03-18 Telephone WINSTON Heard 1.2.593.220 0042 8754 00:00:00 00:00:00 Gabriela TARIQ 350.1.13.10 [facility] 42.7.2.686 [id number] 019 2020-03-16 2020-03-16 Laboratory Only, [facility] 1.2.840.114 7 [id number] 15:00:29 15:15:29 Only Test [place] 350.1.13.10 [place] 4.2.7.2.686 [place] [id number] 353 2020-03-16 2020-03-16 Laboratory Only, [facility] Test [facility] 1.2.840. 114 [id number] Univers 15:00:29 15:15:29 Only [facility] 350.1.13.10 [facility] 4.2.7.2.686 [facility] [id number] [address] 2020-03-16 2020-03-16 Outpatient R SHADI [facility] [id number] Univers 15:15:00 15:15:00 TAY gant [facility] Results Test Description Test Time Test Comments Results Result Comments Source Creatinine level, urine, random 2021-04-15 17:11:47 Test Item Value Reference Range Interpretation Comme nts Creatinine, urine (mg/dL) (test code = 92159-2) 121 mg/dL [facility], [id number] 17:11:47 Test Item Value Reference Range Interpretation Comments Protein, urine random (test code = 161 mg/dL 2888-6) [facility] [id number] 15:53:04 Test Item Value Reference Range Interpretation Comments Urine culture (test SEE COMMENT Bacteriu deandre screen code = 9837705) negative. [facility] and microscopy, with reflex to culture 2021-04-15 15:53:03 Test Item Value Reference Range Interpretation Comments Specimen site (test Clean catch code = 5428755) Color, UA (test code = Straw 5778-6) Appearance, UA (test Clear code = 5767-9) Specific gravity, UA 1.001-1.035 (test code = 5811-5) pH, UA (test code = 5.0-8.5 5803-2) Protein, UA (test code 2+ Negative A = 33532-8) Glucose, UA (test code 3+ Negative A = 29151-9) Ketones, UA (test code Negative Negative = 2514-8) Bilirubin, UA (test Negative Negative code = 5770-3) Blood, UA (test code = Moderate Negative A 5794-3) Nitrite, UA (test code Negative Negative = 5802-4) Urobilinogen, UA (test <2.0 <2.0 code = 32655-6) Leukocyte esterase, UA Negative Negative (test code = 5799-2) WBC, UA (test code = See_Comment [Autom ated 5821-4) message] The sy stem which generated this result transmitted reference range : 0 - 1 /HPF. The reference range was not used to interpret this result as normal/abnormal . RBC, UA (test code = See_Comment [Autom ated 99712-2) message] The sy stem which generated this result transmitted reference range : 0 - 5 /HPF. The reference range was not used to interpret this result as normal/abnormal . Bacteria, UA (test code None seen None seen = 43336-2) Yeast, UA (test code = None seen 17149-2) Yeast with None seen pseudohyphae, UA (test code = 45902-0) Lab Interpretation Abnormal (test code = 61201-2) [facility]2019-09-17 04:32:00 Test Item Value Reference Range Interpretation Comments SARS-COV2/RT-PCR (test Not Detected Not Detected, Negative code = 8513362) SARS-COV-[address] [facility] (test code = 9546750) Negative results do not preclude SARS-CoV-2 infection [...] of the Act.Fact Sheet for Healthcare Pro viders:https://www.Car Throttle.EcoSwarm/Documents/Xpert%20Xpress%20SARS%20CoV-2/Fact%20Sh eets/3023802%47CTZD-GKG-2%20HEALTHCARE%20PROVIDERS%20FACT%20SHEET.pdfFact Sheet for Healthcare Patients:https://www.Digabit id.EcoSwarm/Documents/Xpert%20Xpress%20SARS%20CoV-2/Fact%20Sheets/3023801%20SARS-COV -2%20PATIENT%20FACT%20SHEET.pdfPerforming Laboratory:[facility] [place] [address]
[2021-07-07] MEDS ORDERED: FENTANYL CITR 100 MCG/2 ML ONE (15:59)
[2021-07-07 16:01] LABS: Absolute Lymphocytes (CBC) 2.2 K/uL (0.7-4.9); Hematocrit 39.1 % (39.6-49.0); Lymphocytes % 24.5 % (15.3-44.8); MPV 7.4 fL (7.6-11.3); RBC Red Blood Cell Count 4.32 M/uL (4.33-5.43)
[2021-07-07 16:08] LABS: Protime INR 1.39
[2021-07-07 16:20] LABS: Albumin 3.5 g/dL (3.4-5.0); Bilirubin Direct 0.2 mg/dL (0-0.2); Bilirubin Total 0.3 mg/dL (0.2-1.0); Magnesium 1.9 mg/dL (1.8-2.4); Potassium 4.1 mmol/L (3.5-5.1); Protein, Total 7.6 g/dL (6.4-8.2); Troponin High Sensitivity 16.6 pg/mL (<58.9)
[2021-07-07 16:45] LABS: SARS-COV-2 RT PCR NEGATIVE (NEGATIVE)
--- NOTE | 2021-07-07 17:14 | RAD REPORT ---
EXAM DESCRIPTION: Juancho Single View07/07/2021 3:41 pm CLINICAL HISTORY: cough COMPARISON: 2020 FINDINGS: The lungs appear clear of acute infiltrate. The heart is normal size IMPRESSION: No acute abnormalities displayed
[2021-07-07] MEDS ORDERED: NA CHLORIDE 0.9% 500 ML ONE (18:09)
--- NOTE | 2021-07-07 18:50 | RAD REPORT ---
EXAM DESCRIPTION: CT - Stone Protocol - 07/07/2021 6:37 pm CLINICAL HISTORY: Abdominal pain. Back pain COMPARISON: 2020 TECHNIQUE: Computed axial tomography of the abdomen pelvis was obtained without oral or IV contrast. Lack of IV and oral contrast limits evaluation of solid organs, bowel, and vessels. Coronal reformat dirk images were obtained and reviewed. All CT scans are performed using dose optimization technique as appropriate and may include automated exposure control or mA/KV adjustment according to patient size. FINDINGS: Very small [place] kidneys. Transplant kidney left lower abdomen/pelvis. No hydronephrosis. Mild stranding within the perienal fat. A ureteral calculus is not seen. A bladder calculus The liver, spleen, pancreas and adrenals appear grossly normal Cholecystectomy. There is no evidence of diverticulitis. The appendix appears normal Small inguinal hernias contain fat IMPRESSION: Negative for a genitourinary calculus Mild stranding adjacent to the transplant kidney is a nonspecific finding but can indicate renal infl ammation
--- NOTE | 2021-07-07 18:57 | EDPHYS ---
Physician Documentation [facility] Name: Shoaib Freitas Jr Age: 56 yrs Sex: Male : 1965 Arrival Date: 07/07/2021 Time: 14:42 Bed 20 Private MD: ED Physician Vidal Sandra HPI: 07/07 15:35 This 56 yrs old Black Male presents to ER via Ambulatory with complaints of Back Pain, cp Heel Pain, Sore Throat. 15:35 The patient presents with pain that is acute, with no known mechanism of injury. The cp symptoms are located in the left scapular area, right scapular area, left subscapular area and right subscapular area. 15:35 Onset: The symptoms/episode began/occurred 1 week(s) ago. cp 15:35 The pain does not radiate. Associated signs and symptoms: Pertinent positives: left cp heel pain, Pertinent negatives: abdominal pain, chest pain, constipation, fever, headache, incontinence, numbness. The problem was sustained from unknown cause. Modifying factors: the patient symptoms are aggravated by movement. Severity of symptoms: in the emergency department the symptoms are unchanged, despite home interventions. Historical: - Allergies: 14:50 No Known Allergies; ab2 - Home Meds: 19:58 CellCept Oral [Active]; diltiazem HCl 240 mg Oral cpER 1 cap once daily for kd3 Hypertension [Active]; prednisone 5 mg Oral tab once daily [Active]; valsartan 40 mg Oral tab 1 tab once daily for Hypertension [Active]; - PMHx: 14:50 Gall Stones; history of dialysis; Hypertension; kidney transplant; Pancreatitis; ab2 - PSHx: 14:50 Kidney Transplant; ab2 - Immunization history:: Adult Immunizations up to date. - Social history:: Smoking status: Patient denies any tobacco usage or history of. ROS: 15:40 Constitutional: Negative for body aches, chills, fever, poor PO intake. cp 15:40 Eyes: Negative for injury, pain, redness, and discharge. cp 15:40 ENT: Negative for drainage from ear(s), ear pain, sore throat, difficulty swallowing, difficulty handling secretions. 15:40 Neck: Negative for stiffness. 15:40 Cardiovascular: Negative for chest pain, edema, palpitations. 15:40 Respiratory: Negative for cough, shortness of breath, wheezing. 15:40 Abdomen/GI: Negative for abdominal pain, nausea, vomiting, and diarrhea, constipation. 15:40 Back: Positive for pain at rest, pain with movement, of the left scapular area, right scapular area, left subscapular area and right subscapular area, Negative for injury or acute deformity. 15:40 : Negative for urinary symptoms. 15:40 MS/extremity: Positive for pain, of the left heel, Negative for injury or acute deformity, paresthesias. 15:40 Skin: Negative for cellulitis, rash. 15:40 Neuro: Negative for altered mental status, headache, numbness, weakness. 15:40 All other systems are negative. Exam: 15:45 ECG was reviewed by the Attending Physician. cp 15:48 Constitutional: The patient appears in no acute distress, alert, awake, cp non-diaphoretic, non-toxic, well developed, well nourished. 15:48 Constitutional: This is a well developed, well nourished patient who is awake, alert, cp and in no acute distress. 15:48 Eyes: Periorbital structures: appear normal, Conjunctiva: normal, no exudate, no injection, Sclera: no appreciated abnormality, Lids and lashes: appear normal, bilaterally. 15:48 ENT: External ear(s): are unremarkable, Nose: is normal, Mouth: Lips: moist, Oral mucosa: pink and intact, moist, Posterior pharynx: Airway: no evidence of obstruction, patent. 15:48 Neck: ROM/movement: is normal, is supple, without pain, no range of motions limitations, no nuchal rigidity. 15:48 Chest/axilla: Inspection: normal, Palpation: is normal, no crepitus, no tenderness. 15:48 Cardiovascular: Rate: normal, Rhythm: regular, Edema: is not appreciated, JVD: is not appreciated. 15:48 Respiratory: the patient does not display signs of respiratory distress, Respirations: normal, no use of accessory muscles, no retractions, labored breathing, is not present, Breath sounds: are clear throughout, no decreased breath sounds, no stridor, no wheezing. 15:48 Abdomen/GI: Inspection: abdomen appears normal, Palpation: abdomen is soft and non-tender, in all quadrants. 15:48 Back: pain, that is moderate, of the left scapular area, right scapular area, left subscapular area and right subscapular area, ROM is painful, with all movement. 15:48 Musculoskeletal/extremity: Extremities: grossly normal except: noted in the left heel: tenderness, There is no evidence of erythema, swelling. 15:48 Skin: cellulitis, is not appreciated, no rash present. 15:48 Neuro: Orientation: to person, place \\T\\ time. Mentation: is normal, Motor: moves all fours, strength is normal, Sensation: is normal. Vital Signs: 15:16 BP 139 / 93; Pulse 83; Resp 18 S; Pulse Ox 96% on R/A; jd3 16:35 BP 129 / 79; Pulse 84; Resp 18 S; Pulse Ox 95% on R/A; jd3 17:45 BP 137 / 80; Pulse 83; Resp 18 S; Pulse Ox 96% on R/A; jd3 18:55 Pulse 86; Resp 17 S; Pulse Ox 97% on R/A; jd3 20:12 Temp 98.7; kd3 MDM: 15:15 Patient medically screened. zachery 16:00 Differential diagnosis: Fracture Pyelonephritis Renal Infarction Ureterolithiasis cp vertebral fracture. 18:30 Physician consultation: David Neely MD was called at 17:45, was contacted at 18:30, regarding admission, to the telemetry unit. patient's condition, wants nephrology consult. 19:00 Data reviewed: vital signs, nurses notes, lab test result(s), EKG, radiologic studies, cp CT scan, plain films, I have discussed the patient's presentation/case with the attending Emergency Department Physician;. 19:00 Test interpretation: by ED physician or midlevel provider: ECG, plain radiologic cp studies. 07/07 15:28 Order name: Basic Metabolic Panel; Complete Time: 16:58 cp 07/07 16:58 Interpretation: Normal except: GLUC 221; BUN 23; CRE 2.25; GFR 37. cp 07/07 15:28 Order name: CBC with Diff; Complete Time: 16:58 cp 07/07 16:59 Interpretation: Normal except: RBC 4.32; HGB 13.4; HCT 39.1; MPV 7.4. cp 07/07 15:28 Order name: LFT's; Complete Time: 16:58 cp 07/07 16:59 Interpretation: Normal except: GLOB 4.1; A/G 0.9. cp 07/07 15:28 Order name: Magnesium; Complete Time: 16:58 cp 07/07 15:28 Order name: NT PRO-BNP; Complete Time: 16:58 cp 07/07 15:28 Order name: PT-INR; Complete Time: 16:58 cp 07/07 16:59 Interpretation: Normal except: PT 15.4. cp 07/07 15:28 Order name: Troponin HS; Complete Time: 16:58 cp 07/07 16:59 Interpretation: Troponin HS 16.6; Reviewed. cp 07/07 15:28 Order name: COVID-19/FLU A+B (Document "Date of Onset" if Symptomatic); Complete Time: cp 16:58 07/07 16:59 Interpretation: Reviewed. cp 07/07 15:58 Order name: Strep; Complete Time: 18:46 cp 07/07 18:04 Order name: Throat Culture EDIL 07/07 18:55 Order name: Urine Microscopic Only; Complete Time: 19:51 cp 07/07 19:17 Order name: Urine Dipstick-Ancillary; Complete Time: 19:51 EDMS 07/07 19:54 Order name: Basic Metabolic Panel EDMS 07/07 19:54 Order name: Basic Metabolic Panel EDIL 07/07 15:28 Order name: XRAY Chest (1 view); Complete Time: 17:32 cp 07/07 17:32 Interpretation: Report reviewed. 07/07 15:28 Order name: EKG; Complete Time: 15:29 cp 07/07 15:28 Order name: Cardiac monitoring; Complete Time: 15:29 cp 07/07 15:28 Order name: EKG - Nurse/Tech; Complete Time: 15:40 cp 07/07 15:28 Order name: IV Saline Lock; Complete Time: 15:54 cp 07/07 17:55 Order name: CT Stone Protocol; Complete Time: 18:53 cp 07/07 19:54 Order name: CBC with Automated Diff EDMS 07/07 19:54 Order name: CBC with Automated Diff EDMS 07/07 19:54 Order name: Lipase EDMS 07/07 19:54 Order name: Lipase EDMS 07/07 19:54 Order name: Liver (Hepatic) Function EDMS 07/07 19:54 Order name: Liver (Hepatic) Function EDIL 07/07 15:28 Order name: Labs collected and sent; Complete Time: 15:54 cp 07/07 15:28 Order name: O2 Per Protocol; Complete Time: 15:29 cp 07/07 15:28 Order name: O2 Sat Monitoring; Complete Time: 15:29 07/07 18:55 Order name: Urine Dipstick-Ancillary (obtain specimen); Complete Time: 19:17 cp EC:45 Rate is 80 beats/min. Rhythm is regular. MO interval is normal. QRS interval is normal. cp QT interval is normal. T waves are Inverted in lead aVR. Interpreted by me. Reviewed by me. Administered Medications: 16:00 Drug: fentaNYL (PF) 25 mcg Route: IVP; Site: right antecubital; jd3 16:36 Follow up: Response: No adverse reaction; RASS: Alert and Calm (0) jd3 18:19 Drug: NS 0.9% 500 ml Route: IV; Rate: bolus; Site: right antecubital; jd3 19:57 Drug: Rocephin - (cefTRIAXone) 1 grams Route: IVPB; Infused Over: 30 mins; Site: right kd3 antecubital; 21:01 Follow up: Rate change 10 ml; IV Status: Completed infusion kd3 19:58 Drug: NS 0.9% 1000 ml Route: IV; Rate: 100 ml/hr; Site: right antecubital; kd3 Disposition Summary: 07/07/21 18:57 Hospitalization Ordered Hospitalization Status: Observation cp Provider: David Neely cp Location: Telemetry/MedSurg (observation) cp Condition: Stable cp Problem: an acute exacerbation cp Symptoms: have improved cp Bed/Room Type: Standard cp Room Assignment: 217(07/07/21 19:55) Diagnosis - Other acute kidney failure cp Forms: - Medication Reconciliation Form cp - SBAR form cp Addendum: 07/10/2021 07:17 Co-signature as Attending Physician, Vidal Sandra MD I agree with the assessment and c shaver plan of care. Signatures: Dispatcher [employer] EDIL Nicki Puente RN RN mw Anderson, Corey, MD MD cha Page, Corey, PA PA cp Davies, Jonathon, RN RN jTamie Fay RN RN kd3 Huber Cameron ab2 Corrections: (The following items were deleted from the chart) 07/07 19:55 18:57 cp mw
--- NOTE | 2021-07-07 18:57 | ER ---
Nurse's Notes [facility] Name: Shoaib Freitas Jr Age: 56 yrs Sex: Male : 1965 Arrival Date: 07/07/2021 Time: 14:42 Bed 20 Private MD: Diagnosis: Other acute kidney failure Presentation: 07/07 14:47 Chief complaint: Patient states: "My upper back and my heel on the left foot hurts for ab2 about a week." Pt denies any known injury or trauma. Coronavirus screen: Vaccine status: Patient reports receiving the 2nd dose of the covid vaccine. Client denies travel out of the [place] in the last 14 days. At this time, the client does not indicate any symptoms associated with coronavirus-19. Ebola Screen: Patient negative for fever greater than or equal to 101.5 degrees Fahrenheit, and additional compatible Ebola Virus Disease symptoms Patient denies exposure to infectious person. Patient denies travel to an Ebola-affected area in the 21 days before illness onset. No symptoms or risks identified at this time. Initial Sepsis Screen: Does the patient have a suspected source of infection? No. Patient's initial sepsis screen is negative. Initial Sepsis Screen: Does the patient meet any 2 criteria? No. Patient's initial sepsis screen is negative. Risk Assessment: Do you want to hurt yourself or someone else? Patient reports no desire to harm self or others. Onset of symptoms is unknown. 14:47 Method Of Arrival: Ambulatory ab2 14:47 Acuity: COBY 4 ab2 15:31 Acuity: COBY 3 jd3 Triage Assessment: 14:51 General: Appears in no apparent distress. uncomfortable, Behavior is calm, cooperative, ab2 appropriate for age. Pain: Complains of pain in back and left foot. Musculoskeletal: Reports pain in back and left foot. Historical: - Allergies: 14:50 No Known Allergies; ab2 - Home Meds: 19:58 CellCept Oral [Active]; diltiazem HCl 240 mg Oral cpER 1 cap once daily for kd3 Hypertension [Active]; prednisone 5 mg Oral tab once daily [Active]; valsartan 40 mg Oral tab 1 tab once daily for Hypertension [Active]; - PMHx: 14:50 Gall Stones; history of dialysis; Hypertension; kidney transplant; Pancreatitis; ab2 - PSHx: 14:50 Kidney Transplant; ab2 - Immunization history:: Adult Immunizations up to date. - Social history:: Smoking status: Patient denies any tobacco usage or history of. Screenin:17 Abuse screen: Denies threats or abuse. Nutritional screening: No deficits noted. jd3 Tuberculosis screening: No symptoms or risk factors identified. Fall Risk Ambulatory Aid- None/Bed Rest/Nurse Assist (0 pts). Gait- Normal/Bed Rest/Wheelchair (0 pts) Mental Status- Oriented to own ability (0 pts). Total Pacheco Fall Scale indicates No Risk (0-24 pts). Assessment: 15:14 General: Appears in no apparent distress. comfortable, Behavior is calm, cooperative, jd3 appropriate for age, Reports general body aches. Pain: Complains of pain in back and left Achilles Quality of pain is described as sharp. Neuro: Level of Consciousness is awake, alert, obeys commands, Oriented to person, place, time, situation. Cardiovascular: Denies chest pain, Capillary refill < 3 seconds Patient's skin is warm and dry. Respiratory: Reports cough that is persistent persistent over a month Airway is patent Respiratory effort is even, unlabored, Respiratory pattern is regular, symmetrical, Denies shortness of breath. GI: No signs and/or symptoms were reported involving the gastrointestinal system. : No signs and/or symptoms were reported regarding the genitourinary system. EENT: No signs and/or symptoms were reported regarding the EENT system. Derm: Skin is intact, Skin is dry, Skin is normal, Skin temperature is warm. Musculoskeletal: Circulation, motion, and sensation intact. Range of motion: intact in all extremities. 16:35 Reassessment: Patient appears in no apparent distress at this time. No changes from jd3 previously documented assessment. Patient and/or family updated on plan of care and expected duration. Pain level reassessed. Patient is alert, oriented x 3, equal unlabored respirations, skin warm/dry/pink. 17:44 Reassessment: Patient appears in no apparent distress at this time. No changes from jd3 previously documented assessment. Patient and/or family updated on plan of care and expected duration. Pain level reassessed. Patient is alert, oriented x 3, equal unlabored respirations, skin warm/dry/pink. pt reported pain medication helped only a little. provider notified. 18:55 Reassessment: Patient appears in no apparent distress at this time. Patient and/or jd3 family updated on plan of care and expected duration. Pain level reassessed. Patient is alert, oriented x 3, equal unlabored respirations, skin warm/dry/pink. awaiting CT results. pt reports no change from previous assessment. Vital Signs: 15:16 BP 139 / 93; Pulse 83; Resp 18 S; Pulse Ox 96% on R/A; jd3 16:35 BP 129 / 79; Pulse 84; Resp 18 S; Pulse Ox 95% on R/A; jd3 17:45 BP 137 / 80; Pulse 83; Resp 18 S; Pulse Ox 96% on R/A; jd3 18:55 Pulse 86; Resp 17 S; Pulse Ox 97% on R/A; jd3 20:12 Temp 98.7; kd3 ED Course: 14:42 Patient arrived in ED. ds1 14:48 Triage completed. ab2 14:50 Arm band placed on right wrist. ab2 15:11 Corwin Piña RN is Primary Nurse. jd3 15:15 Vidal Dejesus PA is PHCP. cp 15:15 Vidal Sandra MD is Attending Physician. cp 15:17 Patient has correct armband on for positive identification. Bed in low position. Call jd3 light in reach. Side rails up X 1. Pulse ox on. NIBP on. 15:43 XRAY Chest (1 view) In Process Unspecified. EDMS 15:54 Inserted saline lock: 22 gauge in right antecubital area, using aseptic technique. jd3 Blood collected. 18:38 CT Stone Protocol In Process Unspecified. EDMS 18:56 David Neely MD is Hospitalizing Provider. cp 19:16 Primary Nurse role handed off by Corwin Piña RN mw2 19:16 Tamie Kraft RN is Primary Nurse. kd3 19:19 Urine Microscopic Only Sent. kd3 21:00 No provider procedures requiring assistance completed. Patient admitted, IV remains in kd3 place. Administered Medications: 16:00 Drug: fentaNYL (PF) 25 mcg Route: IVP; Site: right antecubital; jd3 16:36 Follow up: Response: No adverse reaction; RASS: Alert and Calm (0) jd3 18:19 Drug: NS 0.9% 500 ml Route: IV; Rate: bolus; Site: right antecubital; jd3 19:57 Drug: Rocephin - (cefTRIAXone) 1 grams Route: IVPB; Infused Over: 30 mins; Site: right kd3 antecubital; 21:01 Follow up: Rate change 10 ml; IV Status: Completed infusion kd3 19:58 Drug: NS 0.9% 1000 ml Route: IV; Rate: 100 ml/hr; Site: right antecubital; kd3 Outcome: 18:57 Decision to Hospitalize by Provider. cp 21:00 Admitted to Med/surg accompanied by tech, room 217, Report called to halley gates kd3 21:00 Condition: stable 21:00 Discharge instructions given to patient, family, Instructed on discharge instructions. 21:06 Patient left the ED. kd3 Signatures: Dispatcher [employer] EDKY Holli Sherman ds1 Vidal Dejesus PA PA cp Davies, Jonathon, RN RN jd3 David Weinberg 2 Tamie Kraft RN RN kd3 Huber Cameron ab2
[2021-07-07 19:17] LABS: Urine Blood 1+ (Negative); Urine Glucose 3+ (Negative); Urine Protein 2+ (Negative); Urine pH 6.5 (5.0-7.0)
[2021-07-07 19:39] LABS: Urine Bacteria <20 /HPF (NONE SEEN); Urine RBC <5 /HPF (NONE SEEN)
[2021-07-07] MEDS ORDERED: CEFTRIAXONE 1000 MG/VIAL ONE (19:49)
[2021-07-07] MEDS ORDERED: NA CHLORIDE 0.9% 1,000 ML ONE (19:49)
[2021-07-07] MEDS ORDERED: ONDANSETRON 4 MG/2 ML VIAL IV PRN (19:50)
[2021-07-07] MEDS ORDERED: ACETAMINOPHEN 500 MG TAB PO PRN (19:50)
[2021-07-07] MEDS: TRAMADOL HCL 50 MG TAB PO PRN (23:22)
[2021-07-07] MEDS: NA CHLORIDE 0.9% 1,000 ML IV SCH (23:24)
[2021-07-08 04:11] LABS: Absolute Lymphocytes (CBC) 2.6 K/uL (0.7-4.9); Hematocrit 36.9 % (39.6-49.0); Lymphocytes % 29.1 % (15.3-44.8); MPV 7.4 fL (7.6-11.3)
[2021-07-08 04:24] LABS: ALT/SGPT 34 U/L (12-78); AST/SGOT 18 U/L (15-37); Albumin 3.3 g/dL (3.4-5.0); Alkaline Phosphatase 75 U/L (45-117); BUN Blood Urea Nitrogen 24 mg/dL (7-18); Bicarbonate 23 mmol/L (21-32); Bilirubin Total 0.3 mg/dL (0.2-1.0); Glucose Level 172 mg/dL (74-106); Lipase 192 U/L (73-393); Protein, Total 7.1 g/dL (6.4-8.2); Sodium Level 136 mmol/L (136-145)
[2021-07-08 04:25] LABS: Bilirubin Direct < 0.1 mg/dL (0-0.2)
[2021-07-08 05:51] VITALS: BMI 36.6
[2021-07-08] MEDS: NA CHLORIDE 0.9% 1,000 ML IV SCH ×2 (06:30→16:40)
[2021-07-08] MEDS ORDERED: LORATADINE 10 MG TAB PO PRN (08:10)
[2021-07-08] MEDS ORDERED: D50W 25 GM/50 ML SYRINGE IV PRN (08:10)
[2021-07-08] MEDS ORDERED: GLUCAGON 1 MG/VIAL IM PRN (08:10)
--- NOTE | 2021-07-08 08:10 | P.HP ---
Certification for Inpatient Patient admitted to: Observation With expected LOS: <2 Midnights Patient will require the following post-hospital care: None Practitioner: I am a practitioner with admitting privileges, knowledge of patient current condition, hospital course, and medical plan of care. Services: Services provided to patient in accordance with Admission requirements found in Title 42 Section 412.3 of the Code of Federal Regulations Patient History Date of Service: 07/08/21 Primary Care Provider: Chin Reason for admission: acute on chronic renal failure Allergies No Known Allergies Allergy (Verified 09/09/19 21:27) Home Medications: dilTIAZem HCL [Diltiazem 24Hr ER (Xr)] 240 mg PO DAILY 03/13/21 mycophenolate mofetiL [Mycophenolate Mofetil] 1,000 mg PO BID 03/13/21 predniSONE [Prednisone*] 5 mg PO DAILY 03/13/21 Dapagliflozin Propanediol [Farxiga] 10 mg PO DAILY 90 Days #90 tab 03/15/21 Atorvastatin Calcium 20 mg PO BEDTIME 07/07/21 Valsartan 40 mg PO DAILY 07/07/21 - Past Medical/Surgical History Has patient received pneumonia vaccine in the past: No Diabetic: No -: History of renal transplant-17 years ago -: Hypertension -: Tobacco abuse -: pancreatitis -: kidney transplant 17 yrs ago -: cholecystectomy Psychosocial/ Personal History: He is engaged, has 2 children, 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 - Family History Mother -: Hypertension, Diabetes Father -: Hypertension, Diabetes - Social History Smoking Status: Smoker current status UNK Alcohol use: Yes CD- Drugs: No Caffeine use: Yes Place of Residence: Home Review of Systems 10-point ROS is otherwise unremarkable ENT: Nose Congestion Respiratory: Cough Physical Examination - Vital Signs Temperature: 97.9 F Blood Pressure: 156/81 Pulse: 75 Respirations: 18 Pulse Ox (%): 97 - Physical Exam General: Alert, In no apparent distress HEENT: Atraumatic, PERRLA, Mucous membr. moist/pink, EOMI, Sclerae nonicteric Neck: Supple, 2+ carotid pulse no bruit, No LAD, Without JVD or thyroid abnormality Respiratory: Clear to auscultation bilaterally, Normal air movement Cardiovascular: Regular rate/rhythm, Normal S1 S2 Gastrointestinal: Normal bowel sounds, No tenderness Musculoskeletal: No tenderness Integumentary: No rashes Neurological: Normal gait, Normal speech, Normal strength at 5/5 x4 extr, Normal tone, Normal affect Lymphatics: No axilla or inguinal lymphadenopathy - Studies Laboratory Data (last 24 hrs) 07/07/21 15:50: PT 15.4 H, INR 1.39 07/07/21 15:50: WBC 9.0, Hgb 13.4 L, Hct 39.1 L, Plt Count 256 07/07/21 15:50: Sodium 138, Potassium 4.1, BUN 23 H, Creatinine 2.25 H, Glucose 221 H, Magnesium 1.9, Total Bilirubin 0.3, AST 19, ALT 40, Alkaline Phosphatase 84 Microbiology Data (last 24 hrs): 07/07/21 17:41 Throat Group A Streptococcus Rapid Screen - Final Assessment and Plan - Problems (Diagnosis) (1) Acute on chronic renal failure Current Visit: No Status: Acute Plan: patient has improved with fluids. will have Dr. Alanis see the patient. Possible discharge today or tomorrow Qualifiers: Chronic kidney disease stage: stage 3 (moderate) (2) Diabetes 1.5, managed as type 2 Current Visit: No Status: Chronic Plan: will restart the patients farxiga. Will put him on a sliding scale (3) Status post kidney transplant Onset Date: 12/03/15 Current Visit: No Status: Chronic Plan: he is almost to his baseline creatine of 1.45 (4) Hypertension Onset Date: 12/03/15 Current Visit: No Status: Chronic Plan: restart home diovan. Will adjust as necessary Qualifiers: Discharge Plan: Home Plan to discharge in: 24 Hours - Advance Directives Does patient have a Living Will: No Does patient have a Durable POA for Healthcare: No - Code Status/Comfort Care Code Status Assessed: Yes Code Status: Full Code Critical Care: No Time Spent Managing Pts Care (In Minutes): 45
[2021-07-08] MEDS: TRAMADOL HCL 50 MG TAB PO PRN ×2 (08:11→16:33)
[2021-07-08] MEDS: predniSONE 5 MG TAB PO SCH (08:11)
[2021-07-08] MEDS: RIVAROXABAN 10 MG TABLET PO SCH (08:11)
[2021-07-08] MEDS: DILTIAZEM HCL 120 MG SR CAP PO SCH (08:12)
[2021-07-08] MEDS: VALSARTAN 40 MG TAB PO SCH (08:13)
[2021-07-08] MEDS ORDERED: FLUTICASONE 50MCG NASAL SPRAY NAS SCH (09:00)
[2021-07-08] MEDS: Dapagliflozin Propanediol [Farxiga] 10 MG Tablet PO SCH (09:00)
[2021-07-08] MEDS: Mycophenolate Mofetil [Mycophenolate Mofetil] 500 MG Tablet PO SCH ×2 (09:00→20:21)
--- NOTE | 2021-07-08 09:27 | EKG ---
Test Date: 2021-07-07 Test Time: 15:39:56 Central Supply Manager: KAITLYNN MEASUREMENT RESULTS: Intervals: Rate: 80 ME: 160 QRSD: 94 QT: 374 QTc: 431 [place]: P: 60 ME: 160 QRS: 17 T: 22 INTERPRETIVE STATEMENTS: Normal sinus rhythm Cannot rule out Anterior infarct, age undetermined Abnormal ECG Compared to ECG 03/13/2021 11:22:47 No significant changes Electronically Signed On 07-08-21 09:25:46 CDT by Sundar Roa
[2021-07-08] MEDS: INSULIN -REGULAR HUMAN 50 UNIT/0.5 ML ML SQ SCH ×3 (11:30→20:20)
[2021-07-08] MEDS ORDERED: ATORVASTATIN 20 MG TAB PO SCH (21:00)
[2021-07-09] MEDS: TRAMADOL HCL 50 MG TAB PO PRN ×2 (01:03→08:36)
[2021-07-09] MEDS: NA CHLORIDE 0.9% 1,000 ML IV SCH ×2 (04:28→12:00)
[2021-07-09] MEDS: INSULIN -REGULAR HUMAN 50 UNIT/0.5 ML ML SQ SCH ×2 (07:30→11:48)
[2021-07-09] MEDS: VALSARTAN 40 MG TAB PO SCH (07:52)
[2021-07-09] MEDS: RIVAROXABAN 10 MG TABLET PO SCH (07:53)
[2021-07-09] MEDS: DILTIAZEM HCL 120 MG SR CAP PO SCH (07:53)
[2021-07-09] MEDS: predniSONE 5 MG TAB PO SCH (07:54)
[2021-07-09] MEDS: Dapagliflozin Propanediol [Farxiga] 10 MG Tablet PO SCH (07:55)
[2021-07-09] MEDS: Mycophenolate Mofetil [Mycophenolate Mofetil] 500 MG Tablet PO SCH (07:55)
[2021-07-09 12:02] VITALS: BP 137/89; TEMP 97.6
[2021-07-09 13:24] VITALS: O2SAT 92
--- NOTE | 2021-07-09 18:06 | CON ---
Date of Consultation: 07/09/2021 Consulting Physician: David Neely M.D. Reason For Consultation: Elevated BUN and creatinine, kidney transplant. History Of Present Illness: This is a pleasant 56-year-old gentleman with significant past medical history of hypertension; hyperlipidemia; end-stage renal disease, status post kidney transplant, donor transplant back in 1999 without any rejection. Follow up with Dr. Klein in [place]. Maintained on anti-rejection medication including cyclosporine 100 b.i.d., mycophenolate 1000 b.i.d.. The patient's last visit with Dr. Espinal was 2 months ago. Has appointment next month. The patient also on prednisone 5 mg. Patient apparently came to the hospital complaining from cough, nonproductive with some shortness of breath, found to have elevation in creatinine 2.1. For that reason, we have been consulted. Over the night, we started the patient on IV fluid. Kidney function has been improved significantly down to 1.6. Patient's baseline creatinine around 1.5-1.7. The patient denies any nonsteroidal. No recent change in his medication. Past Medical History: 1. DVT. 2. Hypertension. 3. Chronic kidney disease, end-stage renal disease, status post kidney transplant back in 1999 without any rejection. Maintained on cyclosporine 100 b.i.d., mycophenolate 1000 b.i.d., prednisone 5 mg daily. 4. Pancreatitis. Past Surgical History: Include: 1. Kidney transplant. 2. Cholecystectomy. Family History: Positive for hypertension and diabetes. Social History: Active alcohol. Denied drugs abuse. Denied smoking. Review of Systems: Head and Neck: No red eye. No ear pain. GI: Decreased intake. : No polyuria, no dysuria, no hematuria. Pathology Technologist: Not applicable. Respiratory: Has cough. Cardiovascular: No chest pain. No leg swelling. Endocrine: No polydipsia. Skin: No rash. Neuro: Generalized weakness. Musculoskeletal: Leg pain. Physical Examination: General: When I saw the patient; the patient is lying in bed, comfortable without any distress. Vital Signs: Blood pressure of 137/89, pulse of 81, afebrile. Chest: Clear to auscultation. Heart: S1, S2. Systolic murmur. Abdomen: Soft, nontender. Extremities: No edema. Neuro: Alert, oriented x3. Nonfocal. Kidney transplant: No erythema. No tenderness on the lower quadrant. No guarding or rebound. Laboratory Data: Upon presentation to the hospital, creatinine 2.2, GFR of 37. Today's lab data; sodium 137, potassium 4, bicarb 22, BUN 21, creatinine 1.6, GFR of 53, blood sugar still elevated at 260, calcium 8.8. Current Medications: The patient on include diltiazem, atorvastatin, valsartan 40, Tylenol, prednisone 5 mg, IV fluid. Mycophenolate. Cyclosporine. Assessment And Plan: 1. End-stage renal disease, status post kidney transplant with acute kidney injury secondary to prerenal, back to baseline. Okay to resume his home medication including valsartan, cyclosporine, and mycophenolate at home doses with the prednisone. Patient cleared from the renal standpoint for discharge planning. 2. Acute kidney injury secondary to prerenal, on kidney transplant as above. 3. Immunosuppressive regimen. The patient to resume prednisone 5 mg, mycophenolate 1000 b.i.d., cyclosporine 100 b.i.d. as home medications. 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 4. Hypertension, controlled optimal. Continue valsartan. 5. Acute kidney injury secondary to prerenal, recovered, currently normal volume. Discontinue IV fluid. Resume valsartan. Resume immunosuppressive medication. 6. Cough, as by primary. The patient cleared from the renal standpoint for discharge planning. CT of the abdomen did not show any obstruction. No stranding on the kidney. Time spent examining the patient, reviewing the data, discussing with the patient [id number], discussing the case with the pricing/signage team member including nursing, discussing the case with the primary care Dr. Neely, 65 minutes. CHENTE Voice ID: [id number] Report ID: [id number] LASHELL
[2021-07-10] MEDS ORDERED: RIVAROXABAN 20 MG TABLET PO SCH (09:00)
--- NOTE | 2021-07-10 10:16 | P.DS ---
Admission Date: 07/07/21 Discharge Date: 07/09/21 Primary Care Provider: Chin Disposition: ROUTINE DISCHARGE Discharge Condition: GOOD Reason for Admission: acute on chronic renal failure - Problems (1) Acute on chronic renal failure Status: Acute Qualifiers: Chronic kidney disease stage: stage 3 (moderate) (2) Diabetes 1.5, managed as type 2 Status: Chronic (3) Status post kidney transplant Onset Date: 12/03/15 Status: Chronic (4) Hypertension Onset Date: 12/03/15 Status: Chronic Qualifiers: Brief History of Present Illness: Patient presented with a few days of cough and fever. Was found to have an elevated creatine of 2.25. His baseline is 1.45 Hospital Course: patient is her for acute on chronic renal failure. We put him on fluids. Was seen by Dr Alanis. His creatine improved to 1.64. 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 Vital Signs/Physical Exam: Temp Pulse Resp BP Pulse Ox 97.6 F 81 18 137/89 92 07/09/21 12:00 07/09/21 12:00 07/09/21 12:00 07/09/21 12:00 07/09/21 12:00 General: Alert, In no apparent distress HEENT: Atraumatic, PERRLA, EOMI Neck: Supple, JVD not distended Respiratory: Clear to auscultation bilaterally, Normal air movement Cardiovascular: Regular rate/rhythm, Normal S1 S2 Gastrointestinal: Normal bowel sounds, No tenderness Musculoskeletal: No tenderness Integumentary: No rashes Neurological: Normal speech, Normal tone, Normal affect Lymphatics: No axilla or inguinal lymphadenopathy Laboratory Data at Discharge: WBC 9.0 K/uL (4.3-10.9) 07/08/21 03:44 Hgb 13.0 g/dL (13.6-17.9) L 07/08/21 03:44 Hct 36.9 % (39.6-49.0) L 07/08/21 03:44 Plt Count 244 K/uL (152-406) 07/08/21 03:44 PT 15.4 SECONDS (9.5-12.5) H 07/07/21 15:50 INR 1.39 07/07/21 15:50 Sodium 137 mmol/L (136-145) 07/09/21 09:30 Potassium 4.0 mmol/L (3.5-5.1) 07/09/21 09:30 BUN 21 mg/dL (7-18) H 07/09/21 09:30 Creatinine 1.64 mg/dL (0.55-1.3) H 07/09/21 09:30 Glucose 262 mg/dL (74-106) H 07/09/21 09:30 Magnesium 1.9 mg/dL (1.8-2.4) 07/07/21 15:50 Total Bilirubin 0.3 mg/dL (0.2-1.0) 07/08/21 03:44 AST 18 U/L (15-37) 07/08/21 03:44 ALT 34 U/L (12-78) 07/08/21 03:44 Alkaline Phosphatase 75 U/L (45-117) 07/08/21 03:44 Lipase 192 U/L (73-393) 07/08/21 03:44 Home Medications: dilTIAZem HCL [Diltiazem 24Hr ER (Xr)] 240 mg PO DAILY 03/13/21 mycophenolate mofetiL [Mycophenolate Mofetil] 1,000 mg PO BID 03/13/21 predniSONE [Prednisone*] 5 mg PO DAILY 03/13/21 Dapagliflozin Propanediol [Farxiga] 10 mg PO DAILY 90 Days #90 tab 03/15/21 Atorvastatin Calcium 20 mg PO BEDTIME 07/07/21 Valsartan 40 mg PO DAILY 07/07/21 Cyclosporine 100 mg PO BID 07/08/21 Diet: Renal Activity: Ad miguel angel Followup: David Neely MD [Primary Care Provider] - 1 Week (call to schedule an appointment) Time spent managing pt's care (in minutes): 30
== END 2021-07-09 13:25 | disposition home or self-care (01) ==
LOC: ER 14:40 → ERHOLD 19:55 → 2ND 20:41
PROVIDERS: ADMIT Internal Medicine; ATTEND Internal Medicine
DX: T86.19 Other complication of kidney transplant (principal); N17.9 Acute kidney failure, unspecified; N18.6 End stage renal disease; Z79.899 Other long term (current) drug therapy; E78.5 Hyperlipidemia, unspecified; I12.0 Hypertensive chronic kidney disease with stage 5 chronic kidney disease or end stage renal disease; Z20.822 Contact with and (suspected) exposure to COVID-19
CPT/HCPCS: 96365; 93005; 87070; 85025 ×2; 80048 ×3; 36415 ×2; 83735; 85610; 82947 ×5; 80076 ×2; 87081; 84484; 83690; 83880; 0240U; 76377; 74176; 71045; 96375; 99285; J3010; J7040; J7030 ×4; G0378 ×3; 81003; 81015; J7512

== ENCOUNTER 2021-08-07 14:16 | Emergency (ER) | payer OTHER ==
--- OUTSIDE RECORDS SUMMARY | 2021-08-07 14:20 | XMS REPORT | Continuity of Care Document ---
:1965 Author Organization [facility] t Address [address] [place] [address] Dr. [address] [place] [address] Care Team Providers Name Role Phone Peter ALVAREZ, Akin Primary Care Physician Alberto Klein MD Attending Clinician Satish Perdomo MD Attending Clinician Félix RN, [...] Active [employer] [facility] Class it[facility] of [facility] Family History Family Member Diagnosis Comments Start Date Stop Date Source Natural father Hypertension [facility] Natural mother Heart disease [facility] Natural mother Hypertension [facility] Natural sister Diabetes [facility] Social History Social Habit Start Date Stop Date Quantity Comments Source Exposure to Not sure [facility] pital SARS-CoV-2 (event) Sex Assigned At [facility] y of [facility] Alcohol intake 2018-01-18 2018-01-18 Current [facility] 00:00:00 00:00:00 non-drinker of alcohol (finding) Tobacco use and 2018-01-15 2018-01-15 Smokeless tobacco [facility] exposure 00:00:00 00:00:00 non-user Tobacco Comment 2018-01-15 2018-01-15 "Quit 2-3 months Met [facility] 00:00:00 00:00:00 ago" Smoking Status Start Date Stop Date Source Unknown if ever smoked [facility] Ex-smoker 2018-01-15 00:00:00 2018-01-15 00:00:00 [facility] Current some day 2016-03-26 00:00:00 [facility] smoker Center Medications Ordered Filled [...] Clinician Source Performed URINE CULTURE 2021-04-15 14:00:00 [facility] HC COMPLETE BLD COUNT 2021-04-15 14:00:00 [facility] W/AUTO DIFF MAGNESIUM LEVEL 2021-04-15 14:00:00 [facility] PHOSPHORUS LEVEL 2021-04-15 14:00:00 [facility] URIC ACID LEVEL 2021-04-15 14:00:00 [facility] LDH 2021-04-15 14:00:00 [facility] URINALYSIS SCREEN AND 2021-04-15 14:00:00 [facility] MICROSCOPY, WITH REFLEX TO CULTURE PROTEIN, URINE, RANDOM 2021-04-15 14:00:00 [facility] CREATININE LEVEL, URINE, 2021-04-15 14:00:00 [facility] RANDOM CYCLOSPORINE LEVEL, 2021-04-15 14:00:00 [facility] RANDOM COMPREHENSIVE METABOLIC 2021-04-15 14:00:00 [facility] PANEL ESTIMATED GFR 2021-04-15 14:00:00 [facility] URINE CULTURE 2021-03-18 14:23:00 [facility] HC COMPLETE BLD COUNT 2021-03-18 14:23:00 [facility] W/AUTO DIFF MAGNESIUM LEVEL 2021-03-18 14:23:00 [facility] PHOSPHORUS LEVEL 2021-03-18 14:23:00 [facility] URIC ACID LEVEL 2021-03-18 14:23:00 [facility] LDH 2021-03-18 14:23:00 [facility] CREATININE LEVEL, URINE, 2021-03-18 14:23:00 [facility] RANDOM URINALYSIS SCREEN AND 2021-03-18 14:23:00 [facility] MICROSCOPY, WITH REFLEX TO CULTURE PROTEIN, URINE, RANDOM 2021-03-18 14:23:00 [facility] COMPREHENSIVE METABOLIC 2021-03-18 14:23:00 [facility] PANEL CYCLOSPORINE LEVEL, 2021-03-18 14:23:00 [facility] RANDOM ESTIMATED GFR 2021-03-18 14:23:00 [facility] HC COMPLETE BLD COUNT 2021-03-11 15:30:00 [facility] W/AUTO DIFF MAGNESIUM LEVEL 2021-03-11 15:30:00 [facility] PHOSPHORUS LEVEL 2021-03-11 15:30:00 [facility] URIC ACID LEVEL 2021-03-11 15:30:00 [facility] LDH 2021-03-11 15:30:00 [facility] COMPREHENSIVE METABOLIC 2021-03-11 15:30:00 [facility] PANEL CYCLOSPORINE LEVEL, 2021-03-11 15:30:00 [facility] RANDOM ESTIMATED GFR 2021-03-11 15:30:00 [facility] URINE CULTURE 2021-03-11 15:15:00 [facility] URINALYSIS SCREEN AND 2021-03-11 15:15:00 [facility] MICROSCOPY, WITH REFLEX TO CULTURE PROTEIN, URINE, RANDOM 2021-03-11 15:15:00 [facility] CREATININE LEVEL, URINE, 2021-03-11 15:15:00 [facility] RANDOM URINE CULTURE 2021-02-28 15:08:00 [facility] HC COMPLETE BLD COUNT 2021-02-28 15:08:00 [facility] W/AUTO DIFF MAGNESIUM LEVEL 2021-02-28 15:08:00 [facility] PHOSPHORUS LEVEL 2021-02-28 15:08:00 [facility] URIC ACID LEVEL 2021-02-28 15:08:00 [facility] LDH 2021-02-28 15:08:00 [facility] URINALYSIS SCREEN AND 2021-02-28 15:08:00 [facility] MICROSCOPY, WITH REFLEX TO CULTURE PROTEIN, URINE, RANDOM 2021-02-28 15:08:00 [facility] CREATININE LEVEL, URINE, 2021-02-28 15:08:00 [facility] RANDOM COMPREHENSIVE METABOLIC 2021-02-28 15:08:00 [facility] PANEL FK506 TACROLIMUS LEVEL, 2021-02-28 15:08:00 [facility] RANDOM CYCLOSPORINE LEVEL, 2021-02-28 15:08:00 [facility] RANDOM ESTIMATED GFR 2021-02-28 15:08:00 [facility] URINE CULTURE 2020-11-26 14:11:00 [facility] HC COMPLETE BLD COUNT 2020-11-26 14:11:00 [facility] W/AUTO DIFF MAGNESIUM LEVEL 2020-11-26 14:11:00 [facility] PHOSPHORUS LEVEL 2020-11-26 14:11:00 [facility] URIC ACID LEVEL 2020-11-26 14:11:00 [facility] LDH 2020-11-26 14:11:00 [facility] URINALYSIS SCREEN AND 2020-11-26 14:11:00 [facility] MICROSCOPY, WITH REFLEX TO CULTURE CREATININE LEVEL, URINE, 2020-11-26 14:11:00 [facility] RANDOM PROTEIN, URINE, RANDOM 2020-11-26 14:11:00 [facility] CYCLOSPORINE LEVEL, 2020-11-26 14:11:00 [facility] RANDOM PARATHYROID HORMONE 2020-11-26 14:11:00 [facility] VITAM[facility] D 25 HYDROXY 2020-11-26 14:11:00 [facility] COMPREHENSIVE METABOLIC 2020-11-26 14:11:00 [facility] PANEL ESTIMATED GFR 2020-11-26 [facility]:11[facility] 2020-09-13 15:29[facility] 2020-09-13 15:29:00 [facility] W/AUTO DIFF MAGNESIUM LEVEL 2020-09-13 15:29:00 [facility] PHOSPHORUS LEVEL 2020-09-13 15:29:00 Ernie [facility] URIC ACID LEVEL 2020-09-13 15:29:[facility] 2020-09-13 15:29[facility]EN AND 2020-09-13 15:29:00 [facility] MICROSCOPY, WITH REFLEX TO CULTURE CREATININE LEVEL, URINE, 2020-09-13 15:29:00 [facility] RANDOM PROTEIN, URINE, RANDOM 2020-09-13 15:29:00 [facility] METABOLIC 2020-09-13 15:29:00 [facility] PANEL CYCLOSPORINE LEVEL, 2020-09-13 15:29:00 [facility] PARATHYROID HORMONE 2020-09-13 15:29:00 [facility] HYDROXY 2020-09-13 15:29:00 Juan Klein [facility] LEVEL ESTIMATED GFR 2020-09-13 15:29:00 [facility] SMEAR REVIEW 2020-09-13 15:29:00 [facility] URINE CULTURE 2020-09-03 13:21:00 [facility] HC COMPLETE BLD COUNT 2020-09-03 13:21:00 [facility] W/AUTO DIFF MAGNESIUM LEVEL 2020-09-03 13:21:00 [facility] PHOSPHORUS LEVEL 2020-09-03 13:21:00 [facility] URIC ACID LEVEL 2020-09-03 13:21:00 [facility] LDH 2020-09-03 13:21:00 [facility] URINALYSIS SCREEN AND 2020-09-03 13:21:00 [facility] MICROSCOPY, WITH REFLEX TO CULTURE CREATININE LEVEL, URINE, 2020-09-03 13:21:00 [facility] RANDOM PROTEIN, URINE, RANDOM 2020-09-03 13:21:00 [facility] COMPREHENSIVE METABOLIC 2020-09-03 13:21:00 [facility] PANEL CYCLOSPORINE LEVEL, 2020-09-03 13:21:00 [facility] RANDOM PARATHYROID HORMONE 2020-09-03 13:21:00 [facility] VITAMIN D 25 HYDROXY 2020-09-03 13:21:00 [facility] LEVEL ESTIMATED GFR 2020-09-03 13:21:00 [facility] URINE CULTURE 2020-06-06 15:13:00 [facility] COMPREHENSIVE METABOLIC 2020-06-06 15:13:00 [facility] PANEL HC COMPLETE BLD COUNT 2020-06-06 15:13:00 [facility] W/AUTO DIFF MAGNESIUM LEVEL 2020-06-06 15:13:00 [facility] PHOSPHORUS LEVEL 2020-06-06 15:13:00 [facility] URIC ACID LEVEL 2020-06-06 15:13:00 [facility] LDH 2020-06-06 15:13:00 [facility] URINALYSIS SCREEN AND 2020-06-06 15:13:00 [facility] MICROSCOPY, WITH REFLEX TO CULTURE CREATININE LEVEL, URINE, 2020-06-06 15:13:00 [facility] RANDOM CYCLOSPORINE LEVEL, 2020-06-06 15:13:00 [facility] RANDOM PROTEIN, URINE, RANDOM 2020-06-06 15:13:00 [facility] ESTIMATED GFR 2020-06-06 15:13:00 [facility] Plan of Care Planned Activity Planned Date Details Comments Source Future Scheduled 2021-04-15 Hepatitis C screening [facility] Test 08:27:26 (procedure) [code = 138757219] Future Scheduled 2021-04-15 COLONOSCOPY SCREENING [facility] Test 08:27:26 [code = COLONOSCOPY SCREENING] Future Scheduled 2021-04-15 SHINGLES VACCINES [facility] Test 08:27:26 (#1) [code = SHINGLES VACCINES (#1)] Future Scheduled 2021-04-15 COVID-19 VACCINE (2 - [facility] Test 08:27:26 Moderna risk 4-dose series) [code = COVID-19 VACCINE (2 - Moderna risk 4-dose series)] Future Scheduled 2021-04-15 INFLUENZA VACCINE [facility] Test 08:27:26 [code = INFLUENZA VACCINE] Encounters Start End Encounter Admission Attending Care Care Encounter Source Date/Time Date/Time Type Type Clinicians Facility Department ID 2021-04-16 2021-04-16 Lab Ernie, 1.2.840.1 [id number] [id number] Methodi 07:27:44 07:32:[address] 3.430.2.7 Hospit a .3.491501 l .8 2021-04-15 2021-04-15 Travel 1.2.840.1 1.2.262.635 9874 [id number] Methodi 00:00:00 00:00:[address] 3.430.2.7 0.2.7.3.698 Ho spita .3.951353 084.8 l .8 2021-03-18 2021-03-18 Lab Ernie, 1.2.840.1 [id number] [id number] Methodi 08:59:20 09:04:20 Juan [address]87[address]1.[address] 3.430.2.7 Hospit a .3.735413 l .8 2021-03-18 2021-03-18 Travel 1.2.840.1 1.2.989.336 6995 [id number] Methodi 00:00:00 00:00:[address] 3.430.2.7 0.2.7.3.698 Ho spita .3.024843 084.8 l .8 2021-03-11 2021-03-11 Lab Ernie, 1.2.840.1 [id number] [id number] Methodi 08:59:28 09:04:28 Juan Dominguez 31430.1.[address] 3.430.2.7 Hospit a .3.369601 l .8 2021-03-11 2021-03-11 Travel 1.2.840.1 1.2.922.805 8109 [id number] Methodi 00:00:00 00:00:[address] 3.430.2.7 0.2.7.3.698 Ho spita .3.762649 084.8 l .8 2021-03-01 2021-03-01 Lab Leanne, 1.2.840.1 [id number] Methodi 08:39:40 08:44:40 Micheal Covarrubias [address]802.1.[address] 3.430.2.7 Hospit a .3.275406 l .8 2021-02-28 2021-02-28 Travel 1.2.840.1 1.2.278.294 2803 [id number] Methodi 00:00:00 00:00:[address] 3.430.2.7 0.2.7.3.698 Ho spita .3.562647 084.8 l .8 2021-02-25 2021-02-25 Travel 1.2.840.1 1.2.185.669 5229 122617 Methodi 00:00:00 00:00:[address] 3.430.2.7 0.2.7.3.698 Ho spita .3.439651 084.8 l .8 2020-11-26 2020-11-26 Lab Ernie, 1.2.840.1 [id number] Methodi 08:48:26 08:53:26 Juan Dominguez 23259.1.[address] 3.430.2.7 Hospit a .3.584984 l .8 2020-11-26 2020-11-26 Travel 1.2.840.1 1.2.228.762 2944 [id number] Methodi 00:00:00 00:00:[address] 3.430.2.7 0.2.7.3.698 Ho spita .3.304123 084.8 l .8 2020-11-15 2020-11-15 Travel 1.2.840.1 1.2.407.416 7726 336230 Methodi 00:00:00 00:00:[address] 3.430.2.7 0.2.7.3.698 Ho spita .3.865984 084.8 l .8 2020-09-13 2020-09-13 Lab Ernie, 1.2.840.1 [id number] Methodi 10:07:34 10:12:34 Juan Dominguez 82466.1.[address] 3.430.2.7 Hospit a .3.712965 l .8 2020-09-13 2020-09-13 Travel 1.2.840.1 1.2.060.628 7036 [id number] Methodi 00:00:00 00:00:[address] 3.430.2.7 0.2.7.3.698 Ho spita .3.351587 084.8 l .8 2020-09-03 2020-09-03 Lab Ernie 1.2.840.1 [id number] Methodi 07:58:11 08:03:11 Juan Dominguez 62318.1.[address] 3.430.2.7 Hospit a .3.127892 l .8 2020-09-03 2020-09-03 Travel 1.2.840.1 1.2.239.538 1682 311507 Methodi 00:00:00 00:00:[address] 3.430.2.7 0.2.7.3.698 Ho spita .3.829434 084.8 l .8 2020-08-29 2020-08-29 Travel 1.2.840.1 1.2.667.873 1797 777562 Methodi 00:00:00 00:00:[address] 3.430.2.7 0.2.7.3.698 Ho spita .3.334829 084.8 l .8 2020-08-13 2020-08-13 Travel 1.2.840.1 1.2.326.012 3906 620907 Methodi 00:00:00 00:00:[address] 3.430.2.7 0.2.7.3.698 Ho spita .3.701641 084.8 l .8 2020-07-30 2020-07-30 Travel 1.2.840.1 1.2.997.440 7721 322111 Methodi 00:00:00 00:00:[address] 3.430.2.7 0.2.7.3.698 Ho spita .3.013343 084.8 l .8 2020-06-07 2020-06-07 Lab Leanne 1.2.840.1 [id number] 8897 Methodi 07:23:50 07:28:50 Micheal Covarrubias [address] 3.430.2.7 Hospit a .3.532737 l .8 2020-06-06 2020-06-06 Travel 1.2.840.1 1.2.249.292 7856 582582 Methodi 00:00:00 00:00:[address] 3.430.2.7 0.2.7.3.698 Ho spita .3.017834 084.8 l .8 2020-03-18 2020-03-18 Telephone WINSTON Heard 1.2.588.062 9356 8754 [facility] 00:00:00 00:00:00 Gabriela TARIQ 350.1.13.10 i [facility] 4.2.7.2.686 Devon [id number] [address] 2020-03-18 2020-03-18 Telephone WINSTON Heard 1.2.935.551 1589 8754 00:00:00 00:00:00 Gabriela TARIQ 350.1.13.10 [facility] 4.2.7.2.686 [id number] 019 2020-03-16 2020-03-16 Laboratory Only, [facility] Test [facility] 1.2.840. 114 [id number] Univers 15:00:29 15:15:29 Only Tay Hsu 350.1.13.10 [facility] 4.2.7.2.686 [facility] [id number] [address] 2020-03-16 2020-03-16 Laboratory Only, [facility] 1.2.840.114 7 [id number] 15:00:29 15:15:29 Only Test Kathleen 350.1.13.10 [place] 4.2.7.2.686 [place] [id number] 353 2020-03-16 2020-03-16 Outpatient R [facility] [id number] Univers 15:15:00 15:15:00 [facility] Results Test Description Test Time Test Comments Results Result Comments Source Creatinine level, urine, random 2021-04-15 17:11:47 Test Item Value Reference Range Interpretation Comme nts Creatinine, urine (mg/dL) (test code = 21409-2) 121 mg/dL [facility], [id number] 17:11:47 Test Item Value Reference Range Interpretation Comments Protein, urine random (test code = 161 mg/dL 2888-6) [facility] [id number] 15:53:04 Test Item Value Reference Range Interpretation Comments Urine culture (test SEE COMMENT Bacteriu deandre screen code = 6161706) negative. [facility] and microscopy, with reflex to culture 2021-04-15 15:53:03 Test Item Value Reference Range Interpretation Comments Specimen site (test Clean catch code = 8584653) Color, UA (test code = Straw 5778-6) Appearance, UA (test Clear code = 5767-9) Specific gravity, UA 1.001-1.035 (test code = 5811-5) pH, UA (test code = 5.0-8.5 5803-2) Protein, UA (test code 2+ Negative A = 34754-3) Glucose, UA (test code 3+ Negative A = 97997-4) Ketones, UA (test code Negative Negative = 2514-8) Bilirubin, UA (test Negative Negative code = 5770-3) Blood, UA (test code = Moderate Negative A 5794-3) Nitrite, UA (test code Negative Negative = 5802-4) Urobilinogen, UA (test <2.0 <2.0 code = 60914-8) Leukocyte esterase, UA Negative Negative (test code = 5799-2) WBC, UA (test code = See_Comment [Autom ated 5821-4) message] The sy stem which generated this result transmitted reference range : 0 - 1 /HPF. The reference range was not used to interpret this result as normal/abnormal . RBC, UA (test code = See_Comment [Autom ated 63688-4) message] The sy stem which generated this result transmitted reference range : 0 - 5 /HPF. The reference range was not used to interpret this result as normal/abnormal . Bacteria, UA (test code None seen None seen = 37534-2) Yeast, UA (test code = None seen 01628-3) Yeast with None seen pseudohyphae, UA (test code = 55849-8) Lab Interpretation Abnormal (test code = 44455-6) [facility]2019-09-17 04:32:00 Test Item Value Reference Range Interpretation Comments SARS-COV2/RT-PCR (test Not Detected Not Detected, Negative code = 6651161) SARS-COV-[address] [facility] (test code = 9562009) Negative results do not preclude SARS-CoV-2 infection [...] of the Act.Fact Sheet for Healthcare Pro viders:https://www.Dotspin.appiris/Documents/Xpert%20Xpress%20SARS%20CoV-2/Fact%20Sh eets/302-4412%26WTVI-GXX-3%20HEALTHCARE%20PROVIDERS%20FACT%20SHEET.pdfFact Sheet for Healthcare Patients:https://www.Bubble & Balm id.appiris/Documents/Xpert%20Xpress%20SARS%20CoV-2/Fact%20Sheets/302-1421%20SARS-COV -2%20PATIENT%20FACT%20SHEET.pdfPerforming Laboratory:[facility] [place] [address]
[2021-08-07 15:22] LABS: Urine Blood 2+ (Negative); Urine Glucose 2+ (Negative); Urine Protein 3+ (Negative); Urine Specific Gravity >=1.030 (1.005-1.030); Urine pH 5.5 (5.0-7.0)
[2021-08-07] MEDS ORDERED: ONDANSETRON 4 MG/2 ML VIAL ONE ×2 (15:27→18:14)
[2021-08-07] MEDS ORDERED: MORPHINE 4 MG/ML SYR ONE (15:27)
[2021-08-07] MEDS ORDERED: NA CHLORIDE 0.9% 500 ML ONE (15:28)
[2021-08-07] MEDS ORDERED: FAMOTIDINE 20 MG/2 ML VIAL IV ONE (15:28)
[2021-08-07 15:39] LABS: Absolute Lymphocytes (CBC) 1.9 K/uL (0.7-4.9); Hematocrit 38.1 % (39.6-49.0); Lymphocytes % 20.7 % (15.3-44.8); MPV 7.6 fL (7.6-11.3); RBC Red Blood Cell Count 3.98 M/uL (4.33-5.43)
[2021-08-07 15:56] LABS: Urine Bacteria <20 /HPF (NONE SEEN)
[2021-08-07 16:20] LABS: Albumin 3.7 g/dL (3.4-5.0); Bilirubin Total 0.4 mg/dL (0.2-1.0); Potassium 3.8 mmol/L (3.5-5.1); Protein, Total 7.7 g/dL (6.4-8.2)
--- NOTE | 2021-08-07 17:26 | RAD REPORT ---
EXAM DESCRIPTION: CTAbdomen Pelvis Wo Contrast - 08/07/2021 5:10 pm CLINICAL HISTORY: abdomen pain COMPARISON: [facility] Protocol dated 07/07/2021; Abdomen Pelvis Wo Contrast dated 05/15/2021; [facility] Sonya col dated 03/13/2021; [facility] Protocol dated 06/23/2020 TECHNIQUE: CT of the abdomen and pelvis was performed. All CT scans are performed using dose optimization technique as appropriate and may include automated exposure control or mA/KV adjustment according to patient size. FINDINGS: Lower chest: No acute abnormality. Liver: No acute abnormality or suspicious lesions. Biliary: Cholecystectomy. Extrahepatic biliary duct dilatation is unchanged. Stomach: No significant focal abnormality. Duodenum: No significant focal abnormality. Pancreas: No significant abnormality. Spleen: No significant abnormality. Adrenal: No suspicious lesions. Kidney/ureter: No hydronephrosis. Atrophic [place] kidneys. Left iliac fossa renal transplant. Left lo wer pole renal cyst. Mild left periureteric stranding. Retroperitoneum: No retroperitoneal adenopathy. Vascular: No aneurysm. Bowel: No significant focal abnormality. Normal appendix. Peritoneum: No ascites or free air. Bladder: Grossly unremarkable. Reproductive: No adnexal masses. Bones: No acute fracture. L3 sclerotic focus likely a bone island. Other: n/a IMPRESSION: No acute intra-abdominal or pelvic finding. Mild nonspecific stranding around the transp lant kidney is unchanged. No hydronephrosis.
--- NOTE | 2021-08-07 18:07 | EDPHYS ---
Physician Documentation [facility] Name: Shoaib Freitas Jr Age: 56 yrs Sex: Male : 1965 Arrival Date: 08/07/2021 Time: 14:19 Bed 19 Private MD: ED Physician Panfilo Peter HPI: 08/07 15:00 This 56 yrs old Black Male presents to ER via Ambulatory with complaints of Back Pain, cp Foot Pain. 15:00 The patient presents with abdominal pain in the upper abdomen, in the lower abdomen, cp abdominal distention in the upper abdomen, in the lower abdomen. Onset: The symptoms/episode began/occurred 3 day(s) ago. Associated signs and symptoms: Pertinent positives: nausea, Pertinent negatives: chest pain, constipation, dysuria, fever, diarrhea. 15:00 The symptoms are described as achy, crampy. cp 15:03 The patient presents with pain that is chronic, with no known mechanism of injury. cp 15:03 The symptoms are located in the low back. The pain does not radiate. Associated signs cp and symptoms: Pertinent positives: chronic pain to left Achilles area, Pertinent negatives: headache, hematuria, incontinence, numbness, urinary retention. The symptoms do not radiate. The symptoms are described as achy. Historical: - Allergies: 14:19 No Known Allergies; ll1 - PMHx: 14:19 history of dialysis; Hypertension; kidney transplant; Pancreatitis; Gall Stones; ll1 - PSHx: 14:19 kidney transplant; ll1 - Immunization history:: Client reports receiving the 2nd dose of the Covid vaccine. - Social history:: Smoking status: Patient/guardian denies using tobacco, the patient reports quitting approximately 3 years ago. ROS: 15:10 Constitutional: Negative for body aches, chills, fever, poor PO intake. cp 15:10 Eyes: Negative for injury, pain, redness, and discharge. cp 15:10 ENT: Negative for drainage from ear(s), ear pain, sore throat, difficulty swallowing, difficulty handling secretions. 15:10 Neck: Negative for pain with movement, pain at rest, stiffness, tenderness, bony tenderness. 15:10 Cardiovascular: Negative for chest pain, edema, palpitations. 15:10 Respiratory: Negative for cough, shortness of breath, wheezing. 15:10 Abdomen/GI: Positive for abdominal pain, nausea, Negative for vomiting, diarrhea, constipation, anorexia, black/tarry stool, rectal bleeding, bowel incontinence. 15:10 Back: Positive for pain at rest, pain with movement, of the low back area and mid back area. 15:10 : Negative for urinary symptoms, bladder incontinence, testicular pain 15:10 MS/extremity: Positive for pain, of the left Achilles, Negative for paresthesias. 15:10 Neuro: Negative for altered mental status, dizziness, headache, weakness. 15:10 All other systems are negative. Exam: 15:15 Constitutional: The patient appears in no acute distress, alert, awake, cp non-diaphoretic, non-toxic, well developed, well nourished, obese. 15:15 Head/Face: Normocephalic, atraumatic. cp 15:15 Eyes: Periorbital structures: appear normal, Conjunctiva: normal, no exudate, no injection, Sclera: no appreciated abnormality, Lids and lashes: appear normal, bilaterally. 15:15 ENT: External ear(s): are unremarkable, Nose: is normal, Mouth: Lips: moist, Oral mucosa: moist, Posterior pharynx: Airway: no evidence of obstruction, patent. 15:15 Neck: ROM/movement: is normal, is supple, without pain, no range of motions limitations. 15:15 Chest/axilla: Inspection: normal. 15:15 Cardiovascular: Rate: normal, Rhythm: regular, Edema: is not appreciated, JVD: is not appreciated. 15:15 Respiratory: the patient does not display signs of respiratory distress, Respirations: normal, no use of accessory muscles, no retractions, labored breathing, is not present, Breath sounds: are clear throughout, no decreased breath sounds, no stridor, no wheezing. 15:15 Abdomen/GI: Inspection: obese Bowel sounds: active, all quadrants, Palpation: soft, in all quadrants, moderate abdominal tenderness, in the abdomen diffusely, rebound tenderness, is not appreciated, involuntary guarding, is not appreciated. 15:15 Back: pain, that is moderate, of the low back area and mid back area, ROM is painful, with all movement, Straight leg raises: of both lower extremities does not illicit pain. 15:15 Neuro: Orientation: to person, place \T\ time. Mentation: is normal, Motor: moves all fours, strength is normal, Sensation: is normal. Vital Signs: 14:22 BP 154 / 96; Pulse 89; Resp 18; Temp 97.9; Pulse Ox 97% ; Weight 113.4 kg; Height 5 ft. ll1 11 in. (180.34 cm); Pain 8/10; 16:00 BP 136 / 84; Pulse 82; Resp 17; Temp 97.6(O); Pulse Ox 100% ; Pain 5/10; ll1 18:18 BP 127 / 80; Pulse 80; Resp 17; Pulse Ox 98% ; Pain 0/10; ll1 14:22 Body Mass Index 34.87 (113.40 kg, 180.34 cm) ll1 MDM: 14:35 Patient medically screened. cp 16:00 Differential diagnosis: chronic back pain, Cholelithiasis, diverticulitis, gastritis, cp non-specific abd pain, pancreatitis, Pyelonephritis, Ureterolithiasis, urinary tract infection. 18:07 Data reviewed: vital signs, nurses notes, lab test result(s), radiologic studies, CT cp scan. 18:07 Counseling: I had a detailed discussion with the patient and/or guardian regarding: the cp historical points, exam findings, and any diagnostic results supporting the discharge/admit diagnosis, lab results, radiology results, the need for outpatient follow up, a family practitioner, to return to the emergency department if symptoms worsen or persist or if there are any questions or concerns that arise at home. Response to treatment: the patient's symptoms have markedly improved after treatment, and as a result, I will discharge patient. Special discussion: Based on the patient's Hx, exam, and Dx evaluation, there is no indication for emergent surgery or inpatient Tx. It is understood by the patient/guardian that if the Sx's persist or worsen they need to return immediately for re-evaluation. 08/07 14:51 Order name: CBC with Diff; Complete Time: 16:25 cp 08/07 16:25 Interpretation: Normal except: RBC 3.98; HCT 38.1. cp 08/07 14:51 Order name: CMP; Complete Time: 17:41 cp 08/07 16:25 Interpretation: Normal except: GLUC 113; BUN 27; CRE 1.87; GFR 46; GLOB 4.0; A/G 0.9. cp 08/07 14:51 Order name: Lipase; Complete Time: 17:41 cp 08/07 14:51 Order name: Urine Microscopic Only; Complete Time: 16:25 cp 08/07 15:22 Order name: Urine Dipstick-Ancillary; Complete Time: 16:25 EDMS 08/07 17:02 Order name: Abdomen ; Complete Time: 17:41 EDMS 08/07 17:42 Interpretation: Report reviewed. cp 08/07 14:51 Order name: IV Saline Lock; Complete Time: 15:13 cp 08/07 14:51 Order name: Labs collected and sent; Complete Time: 15:13 cp 08/07 14:51 Order name: Urine Dipstick-Ancillary (obtain specimen) cp Administered Medications: 15:30 Drug: Pepcid (famotidine) 20 mg Route: IVP; Site: right forearm; ll1 15:30 Drug: Zofran (Ondansetron) 4 mg Route: IVP; Site: right forearm; ll1 15:30 Drug: morphine 4 mg Route: IVP; Site: right forearm; ll1 16:00 Follow up: Response: Pain is decreased ll1 15:30 Drug: NS 0.9% 500 ml Route: IV; Rate: bolus; Site: right forearm; ll1 18:16 Follow up: Response: No change in condition ll1 18:15 Drug: Lidoderm Patch 5 % (700 mg/patch) 1 patches Route: Topical; Site: affected area; ll1 18:17 Follow up: Response: No adverse reaction ll1 18:15 Drug: Flexeril (cyclobenzaprine) 10 mg Route: PO; ll1 18:17 Follow up: Response: No adverse reaction ll1 18:15 Drug: Zofran (Ondansetron) 4 mg Route: IVP; Site: right forearm; ll1 18:17 Follow up: Response: No adverse reaction ll1 Disposition Summary: 08/07/21 18:07 Discharge Ordered Location: Home cp Problem: new cp Symptoms: have improved cp Condition: Stable cp Diagnosis - Low back pain cp - Abdominal pain, unspecified cp - Pain in left foot cp Followup: cp - With: David Neely MD - When: 2 - 3 days - Reason: Recheck today's complaints Discharge Instructions: - Form - Excuse from Work, School, or Physical Activity ds4 - Discharge Summary Sheet cp - Abdominal Pain, Adult cp - Chronic Back Pain cp - Heat Therapy cp - Back Exercises cp - Foot Pain cp Forms: - Medication Reconciliation Form cp - Thank You Letter cp - Antibiotic Education cp - Work release form ds4 - Prescription Opioid Use cp Prescriptions: - Lidoderm 5 % Topical adhesive patch,medicated - apply 1 patch by TRANSDERMAL route once daily; 1 box; Refills: 0, Product cp Selection Permitted - Cyclobenzaprine 10 mg Oral Tablet - take 1 tablet by ORAL route every 8 hours As needed; 20 tablet; Refills: 0, cp Product Selection Permitted - Zofran 4 mg Oral Tablet - take 1 tablet by ORAL route every 12 hours As needed; 20 tablet; Refills: 0, cp Product Selection Permitted Addendum: 08/11/2021 07:26 Co-signature as Attending Physician, Panfilo Peter MD I agree with the assessment and k dr plan of care. Signatures: Dispatcher [employer] [facility] Panfilo Peter MD MD [facility] Vidal Dejesus PA PA cp Paxton Ruiz RN RN ll1 Corrections: (The following items were deleted from the chart) 08/07 17:02 16:55 CT-ABD ordered. [facility] 08/08 12:10 08/07 18:10 Data reviewed: vital signs, nurses notes, cp cp
--- NOTE | 2021-08-07 18:07 | ER ---
Nurse's Notes [facility] Name: Shoaib Freitas Jr Age: 56 yrs Sex: Male : 1965 Arrival Date: 08/07/2021 Time: 14:19 Bed 19 Private MD: Diagnosis: Low back pain;Abdominal pain, unspecified;Pain in left foot Presentation: 08/07 14:20 Ebola Screen: Patient denies travel to an Ebola-affected area in the 21 days before ll1 illness onset. Risk Assessment: Do you want to hurt yourself or someone else? Patient reports no desire to harm self or others. 14:20 Method Of Arrival: Ambulatory ll1 14:22 Chief complaint: Patient states: Abdominal pain with nausea for 3 days. Chronic back ll1 and L foot pain. Coronavirus screen: Vaccine status: Patient reports receiving the 2nd dose of the covid vaccine. Client denies travel out of the [place] in the last 14 days. At this time, the client does not indicate any symptoms associated with coronavirus-19. Initial Sepsis Screen: Does the patient meet any 2 criteria? No. Patient's initial sepsis screen is negative. Does the patient have a suspected source of infection? No. Patient's initial sepsis screen is negative. Onset of symptoms was August 05, 2021. 14:22 Acuity: COBY 3 ll1 Triage Assessment: 14:24 General: Appears uncomfortable, Behavior is cooperative, appropriate for age. Pain: ll1 Complains of pain in back Quality of pain is described as aching. Neuro: No deficits noted. GI: Reports lower abdominal pain, upper abdominal pain, nausea. Musculoskeletal: Circulation, motion, and sensation intact. Capillary refill < 3 seconds, Reports pain in low back and L foot. Historical: - Allergies: 14:19 No Known Allergies; ll1 - PMHx: 14:19 history of dialysis; Hypertension; kidney transplant; Pancreatitis; Gall Stones; ll1 - PSHx: 14:19 kidney transplant; ll1 - Immunization history:: Client reports receiving the 2nd dose of the Covid vaccine. - Social history:: Smoking status: Patient/guardian denies using tobacco, the patient reports quitting approximately 3 years ago. Screenin:00 Abuse screen: Denies threats or abuse. ll1 15:00 Nutritional screening: No deficits noted. Tuberculosis screening: No symptoms or risk ll1 factors identified. Fall Risk None identified. Assessment: 14:30 General: Appears in no apparent distress. comfortable, Behavior is calm, cooperative. ll1 14:30 Pain: Complains of pain in left Achilles. Neuro: No deficits noted. GI: Bowel sounds ll1 present X 4 quads. Abd is soft and non tender X 4 quads. Abd is soft. 16:36 Reassessment: No changes from previously documented assessment. Patient and/or family ll1 updated on plan of care and expected duration. Pain level reassessed. Patient is alert, oriented x 3, equal unlabored respirations, skin warm/dry/pink. Patient states feeling better. Pain: Complains of pain in left Achilles Pain currently is 3 out of 10 on a pain scale. 17:30 Reassessment: Patient and/or family updated on plan of care and expected duration. Pain ll1 level reassessed. Patient is alert, oriented x 3, equal unlabored respirations, skin warm/dry/pink. stated that he is still slightly nauseated but no longer having pain. Patient states feeling better. Vital Signs: 14:22 BP 154 / 96; Pulse 89; Resp 18; Temp 97.9; Pulse Ox 97% ; Weight 113.4 kg; Height 5 ft. ll1 11 in. (180.34 cm); Pain 8/10; 16:00 BP 136 / 84; Pulse 82; Resp 17; Temp 97.6(O); Pulse Ox 100% ; Pain 5/10; ll1 18:18 BP 127 / 80; Pulse 80; Resp 17; Pulse Ox 98% ; Pain 0/10; ll1 14:22 Body Mass Index 34.87 (113.40 kg, 180.34 cm) ll1 ED Course: 14:19 Patient arrived in ED. ds1 14:19 Arm band placed on. ll1 14:24 Triage completed. ll1 14:24 Patient placed in an exam room, on a stretcher. ll1 14:29 Vidal Dejesus PA is PHCP. cp 14:29 Panfilo Peter MD is Attending Physician. cp 14:37 Paxton Ruiz RN is Primary Nurse. ll1 15:00 Call light in reach. Side rails up X 1. ll1 15:00 Inserted saline lock: 24 gauge in right forearm, using aseptic technique. Blood ll1 collected. 17:12 Abdomen In Process Unspecified. EDMS 18:06 David Neely MD is Referral Physician. cp 18:18 No provider procedures requiring assistance completed. ll1 18:19 IV discontinued, intact, bleeding controlled, No redness/swelling at site. Pressure ll1 dressing applied. Administered Medications: 15:30 Drug: Pepcid (famotidine) 20 mg Route: IVP; Site: right forearm; ll1 15:30 Drug: Zofran (Ondansetron) 4 mg Route: IVP; Site: right forearm; ll1 15:30 Drug: morphine 4 mg Route: IVP; Site: right forearm; ll1 16:00 Follow up: Response: Pain is decreased ll1 15:30 Drug: NS 0.9% 500 ml Route: IV; Rate: bolus; Site: right forearm; ll1 18:16 Follow up: Response: No change in condition ll1 18:15 Drug: Lidoderm Patch 5 % (700 mg/patch) 1 patches Route: Topical; Site: affected area; ll1 18:17 Follow up: Response: No adverse reaction ll1 18:15 Drug: Flexeril (cyclobenzaprine) 10 mg Route: PO; ll1 18:17 Follow up: Response: No adverse reaction ll1 18:15 Drug: Zofran (Ondansetron) 4 mg Route: IVP; Site: right forearm; ll1 18:17 Follow up: Response: No adverse reaction ll1 Outcome: 18:07 Discharge ordered by MD. cp 18:19 Discharged to home ambulatory. ll1 18:19 Condition: stable 18:19 Discharge instructions given to patient, Instructed on discharge instructions, follow up and referral plans. Demonstrated understanding of instructions, follow-up care, medications. 18:39 Patient left the ED. ll1 Signatures: Dispatcher [employer] [facility] Holli Sherman ds1 Vidal Dejesus PA PA cp Lewis, Lynsay, RN RN ll1 Corrections: (The following items were deleted from the chart) 18:19 16:31 Admitted to Med/surg accompanied by nurse, via wheelchair, room 212, ll1 ll1 18:19 16:31 Condition: stable ll1 ll1 18:19 16:31 Instructed on the need for admit, ll1 ll1
[2021-08-07] MEDS ORDERED: CYCLOBENZAPRINE 10 MG TAB ONE (18:14)
[2021-08-07] MEDS ORDERED: LIDOCAINE 4% PATCH ONE (18:14)
[2021-08-07 18:50] VITALS: TEMP 97.6
[2021-08-07 18:52] VITALS: BP 127/80; O2SAT 98
== END 2021-08-07 18:39 | disposition home or self-care (01) ==
LOC: ER 14:16
DX: M54.50 Low back pain, unspecified (principal); R10.9 Unspecified abdominal pain; M79.672 Pain in left foot; I10 Essential (primary) hypertension; Z94.0 Kidney transplant status
CPT/HCPCS: 85025; 36415; 83690; 80053; 74176; 96375; 96374; 99284; J7040; J2405 ×2; J3490; 81003; 81015

== ENCOUNTER 2021-09-22 16:58 | Emergency (ER) | payer OTHER ==
--- OUTSIDE RECORDS SUMMARY | 2021-09-22 17:01 | XMS REPORT | Continuity of Care Document ---
:1965 Author Organization [facility] t Address [address] [place] [address] Care Team Providers Name Role Phone Akin Green MD Primary Care Physician CAROLE Attending Clinician Unavailable Satish Perdomo MD Attending Clinician Félix RN, D Attending Clinician Unavailable Only, Test Attending Clinician Unavailable Shadi ALVAREZ, Maria Elena Attending Clinician Maria Elena [facility] Attending Clinician Unavailable CAREN Attending Clinician Unavailable [...] Active Univers [facility] of [facility] Family History Family Member Diagnosis Comments Start Date Stop Date Source Natural mother Hypertension [facility] Natural mother Heart disease [facility] Natural sister Diabetes [facility] Natural father Hypertension [facility] Social History Social Habit Start Date Stop Date Quantity Comments Source [facility] SARS-CoV-2 (event) Alcohol intake 2018-01-18 2018-01-18 [facility] 00:00:00 00:00:00 non-drinker of alcohol (finding) Tobacco use and 2018-01-15 2018-01-15 Smokeless tobacco [facility] exposure 00:00:00 00:00:00 non-user Tobacco Comment 2018-01-15 2018-01-15 "Quit 2-3 months Met [facility] 00:00:00 00:00:00 ago" Smoking Status Start Date Stop Date Source Unknown if ever smoked [facility] Ex-smoker 2018-01-15 00:00:00 2018-01-15 00:00:00 [facility] Current some day 2016-03-26 00:00:00 [facility] smoker Center Medications Ordered Filled Start [...] tablet 15:18: daily. Hospit a 37 l pantoprazol 2017-04 Yes 40mg Q.5D Take 40 [...] Clinician Source Performed URINE CULTURE 2021-04-15 14:00:00 [facility] HC COMPLETE BLD COUNT 2021-04-15 14:00:00 [facility] W/AUTO DIFF MAGNESIUM LEVEL 2021-04-15 14:00:00 [facility] PHOSPHORUS LEVEL 2021-04-15 14:00:00 [facility] URIC ACID LEVEL 2021-04-15 14:00:00 [facility] LDH 2021-04-15 14:00:00 [facility] URINALYSIS SCREEN AND 2021-04-15 14:00:00 [facility] MICROSCOPY, WITH REFLEX TO CULTURE PROTEIN, URINE, RANDOM 2021-04-15 14:00:00 [facility] CREATININE LEVEL, URINE, 2021-04-15 14:00:00 [facility] RANDOM CYCLOSPORINE LEVEL, 2021-04-15 14:00:00 [facility] RANDOM COMPREHENSIVE METABOLIC 2021-04-15 14:00:00 [facility] PANEL ESTIMATED GFR 2021-04-15 14:00:00 Juan Klein [facility] URINE CULTURE 2021-03-18 14:23:00 [facility] COMPLETE BLD COUNT 2021-03-18 14:23:00 [facility] W/AUTO DIFF MAGNESIUM LEVEL 2021-03-18 14:23:00 [facility] PHOSPHORUS L[facility]EL 2021-03-18 14:23:00 [facility]ID [facility]EVEL 2021-03-18 14:23:00 Juan Klein [facility] LDH 2021-03-18 14:23:00 Carole [facility] CREATININE LEVEL, URINE, 2021-03-18 14:23:00 Carole [facility] RANDOM URINALYSIS SCREEN AND 2021-03-18 14:23:00 [facility] MICROSCOPY, WITH REFLEX TO CULTURE PROTEIN, URINE, RANDOM 2021-03-18 14:23:00 Carole [facility] COMPREHENSIVE METABOLIC 2021-03-18 14:23:00 Juan Klein [facility] PANEL CYCLOSPORINE LEVEL, 2021-03-18 14:23:00 Juan Klein [facility] RANDOM ESTIMATED GFR 2021-03-18 14:23:00 Juan Klein [facility] HC COMPLETE BLD COUNT 2021-03-11 15:30:00 [facility] W/AUTO DIFF MAGNESIUM LEVEL 2021-03-11 15:30:00 Juan Klein [facility] PHOSPHORUS LEVEL 2021-03-11 15:30:00 Carole [facility] URIC ACID LEVEL 2021-03-11 15:30:00 Juan Klein [facility] LDH 2021-03-11 15:30:00 Juan Klein [facility] COMPREHENSIVE METABOLIC 2021-03-11 15:30:00 Carole [facility] PANEL CYCLOSPORINE LEVEL, 2021-03-11 15:30:00 Juan Klein [facility] RANDOM ESTIMATED GFR 2021-03-11 15:30:00 [facility] URINE CULTURE 2021-03-11 15:15:00 [facility] URINALYSIS SCREEN AND 2021-03-11 15:15:00 [facility] MICROSCOPY, WITH REFLEX TO CULTURE PROTEIN, URINE, RANDOM 2021-03-11 15:15:00 [facility] CREATININE LEVEL, URINE, 2021-03-11 15:15:00 [facility] RANDOM URINE CULTURE 2021-02-28 15:08:00 [facility] HC COMPLETE BLD COUNT 2021-02-28 15:08:00 [facility] W/AUTO DIFF MAGNESIUM LEVEL 2021-02-28 15:08:00 [facility] PHOSPHORUS LEVEL 2021-02-28 15:08:00 [facility] URIC ACID LEVEL 2021-02-28 15:08:00 [facility] LDH 2021-02-28 15:08:00 [facility] URINALYSIS SCREEN AND 2021-02-28 15:08:00 [facility] MICROSCOPY, WITH REFLEX TO CULTURE PROTEIN, URINE, RANDOM 2021-02-28 15:08:00 [facility] CREATININE LEVEL, URINE, 2021-02-28 15:08:00 [facility] RANDOM COMPREHENSIVE METABOLIC 2021-02-28 15:08:[address] [facility] PANEL [id number] TACROLIMUS LEVEL, 2021-02-28 15:08:[address] [facility] RANDOM CYCLOSPORINE LEVEL, 2021-02-28 15:08:00 [facility] RANDOM ESTIMATED GFR 2021-02-28 15:08:00 [facility] URINE CULTURE 2020-11-26 14:11:00 [facility] HC COMPLETE BLD COUNT 2020-11-26 14:11:00 [facility] W/AUTO DIFF MAGNESIUM LEVEL 2020-11-26 14:11:00 Juan Klein [facility] PHOSPHORUS LEVEL 2020-11-26 14:11:00 Carole [facility] URIC ACID LEVEL 2020-11-26 14:11:00 Juan Klein [facility] LDH 2020-11-26 14:11:00 Juan Klein [facility] URINALYSIS SCREEN AND 2020-11-26 14:11:00 Carole [facility] MICROSCOPY, WITH REFLEX TO CULTURE CREATININE LEVEL, URINE, 2020-11-26 14:11:00 [facility] RANDOM PROTEIN, URINE, RANDOM 2020-11-26 14:11:00 Carole [facility] CYCLOSPORINE LEVEL, 2020-11-26 14:11:00 Juan Klein [facility] RANDOM PARATHYROID HORMONE 2020-11-26 14:11:00 [facility] VIT[facility] D 25 HYDROXY 2020-11-26 14:11:00 Juan Klein [facility] LEVEL COMPREHENSIVE METABOLIC 2020-11-26 14:11:00 Juan Klein Viviana [facility] PANEL ESTIMATED GFR 2020-11-26 14:11:00 Juan Klein [facility] URINE CULTURE 2020-09-13 15:29:00 Juan Klein [facility] HC COMPLETE BLD COUNT 2020-09-13 15:29[facility]O DIFF MAGNESIUM LEVEL 2020-09-13 15:29:00 Juan Klein [facility] PHOSPHORUS LEVEL 2020-09-13 15:29:[facility] 2020-09-13 15:29:00 Juan Klein [facility] LDH 2020-09-13 15:29:00 Juan Klein [facility] URINALYSIS SCREEN AND 2020-09-13 15:29:00 Carole [facility] MICROSCOPY, WITH REFLEX TO CULTURE CREATININE LEVEL, URINE, 2020-09-13 15:29:00 [facility] PROTEIN, URINE, RANDOM 2020-09-13 15:29:00 [facility] COMPREHENSIVE METABOLIC 2020-09-13 15:29:00 [facility] CYCLOSPORINE LEVEL, 2020-09-13 15:29:00 Juan Klein [facility] RANDOM PARATHYROID HORMONE 2020-09-13 15:29:00 [facility] D 25 HYDROXY 2020-09-13 15:29:00 Juan Klein [facility] LEVEL ESTIMATED GFR 2020-09-13 15:29:00 [facility] SMEAR REVIEW 2020-09-13 15:29:00 Carole [facility] URINE CULTURE 2020-09-03 13:21:00 Carole [facility] HC COMPLETE BLD COUNT 2020-09-03 13:21:[facility] DIFF MAGNESIUM LEVEL 2020-09-03 13:21:00 Carole [facility] PHOSPHORUS LEVEL 2020-09-03 13:21:00 [facility] URIC ACID LEVEL 2020-09-03 13:21:00 Carole [facility] LDH 2020-09-03 13:21:00 [facility] URINALYSIS SCREEN AND 2020-09-03 13:21:00 Carole [facility] MICROSCOPY, WITH REFLEX TO CULTURE CREATININE LEVEL, URINE, 2020-09-03 13:21:00 Carole [facility] RANDOM PROTEIN, URINE, RANDOM 2020-09-03 13:21:00 [facility] COMPREHENSIVE METABOLIC 2020-09-03 13:21:00 Juan Klein [facility] PANEL CYCLOSPORINE LEVEL, 2020-09-03 13:21:00 Carole [facility] RANDOM PARATHYROID HORMONE 2020-09-03 13:21:00 Carole [facility] VITAMIN D 25 HYDROXY 2020-09-03 13:21:00 [facility] LEVEL ESTIMATED GFR 2020-09-03 13:21:00 [facility] URINE CULTURE 2020-06-06 15:13:00 [facility] COMPREHENSIVE METABOLIC 2020-06-06 15:13:[address] [facility] PANEL HC COMPLETE BLD COUNT 2020-06-06 15:13:00 [facility] W/AUTO DIFF MAGNESIUM LEVEL 2020-06-06 15:13:00 [facility] PHOSPHORUS LEVEL 2020-06-06 15:13:00 [facility] URIC ACID LEVEL 2020-06-06 15:13:00 [facility] LDH 2020-06-06 15:13:00 [facility] URINALYSIS SCREEN AND 2020-06-06 15:13:00 [facility] MICROSCOPY, WITH REFLEX TO CULTURE CREATININE LEVEL, URINE, 2020-06-06 15:13:00 [facility] RANDOM CYCLOSPORINE LEVEL, 2020-06-06 15:13:00 [facility] RANDOM PROTEIN, URINE, RANDOM 2020-06-06 15:13:00 [facility] ESTIMATED GFR 2020-06-06 15:13:00 [facility] URINE CULTURE 2020-01-30 12:52:00 [facility] COMPREHENSIVE METABOLIC 2020-01-30 12:52:00 [facility] PANEL HC COMPLETE BLD COUNT 2020-01-30 12:52:00 [facility] W/AUTO DIFF MAGNESIUM LEVEL 2020-01-30 12:52:00 [facility] PHOSPHORUS LEVEL 2020-01-30 12:52:00 [facility] URIC ACID LEVEL 2020-01-30 12:52:00 [facility] LDH 2020-01-30 12:52:00 [facility] URIN[facility]YSIS SCREEN AND 2020-01-30 12:52:00 Juan Klein [facility] MICROSCOPY, WITH REFLEX TO CULTURE CREATININE LEVEL, URINE, 2020-01-30 12:52:00 Juan Klein [facility] RANDOM PROTEIN, URINE, RANDOM 2020-01-30 12:52:00 Juan Klein [facility] CYCLOSPORINE LEVEL, 2020-01-30 12:52:00 Juan Klein [facility] RANDOM ESTIMATED GFR 2020-01-30 12:52:00 CaroleJuan [facility] Plan of Care Planned Activity Planned Date Details Comments Source Future Scheduled 2021-04-15 Hepatitis C screening [facility] Test 08:27:26 (procedure) [code = 363255675] Future Scheduled 2021-04-15 COLONOSCOPY SCREENING [facility] Test 08:27:26 [code = COLONOSCOPY SCREENING] Future Scheduled 2021-04-[address] [facility] Hospital Test 08:27:26 (#1) [code = SHINGLES VACCINES (#1)] Future Scheduled 2021-04-15 COVID-19 VACCINE (2 - [facility] Hospital Test 08:27:26 Moderna risk 4-dose series) [code = COVID-19 VACCINE (2 - Moderna risk 4-dose series)] Future Scheduled 2021-04-15 INFLUENZA VACCINE Method is Hospital Test 08:27:26 [code = INFLUENZA VACCINE] Future Scheduled COVID-19 VACCINE (1) Met [facility] Test [code = COVID-19 VACCINE (1)] Future Scheduled Hepatitis C screening [facility] Test (procedure) [code = 932600000] Future Scheduled COLONOSCOPY SCREENING [facility] Test [code = COLONOSCOPY SCREENING] Future Scheduled SHINGLES VACCINES [facility] Test (#1) [code = SHINGLES VACCINES (#1)] Future Scheduled INFLUENZA VACCINE [facility] Test [code = INFLUENZA VACCINE] Encounters Start End Encounter Admission Attending Care Care Encounter Source Date/Time Date/Time Type Type Clinicians Facility Department ID 2021-09-05 2021-09-05 Outpatient CAROLE [facility] [id number] [place] 00:00:00 00:00:00 JUAN Delgado [facility] 2021-04-16 2021-04-16 Lab Carole, 1.2.840.1 [id number] [id number] Methodi 07:27:44 07:32:44 Juan Dominguez 40758.1.[address] 3.430.2.7 Hospit a .3.178044 l .8 2021-04-15 2021-04-15 Travel 1.2.840.1 1.2.339.340 3549 [id number] Methodi 00:00:00 00:00:[address] 3.430.2.7 0.2.7.3.698 Ho spita .3.704648 084.8 l .8 2021-03-18 2021-03-18 Lab Carole, 1.2.840.1 [id number] Methodi 08:59:20 09:04:20 Juan Dominguez 13085.1.[address] 3.430.2.7 Hospit a .3.141742 l .8 2021-03-18 2021-03-18 Travel 1.2.840.1 1.2.651.383 4592 [id number] Methodi 00:00:00 00:00:[address] 3.430.2.7 0.2.7.3.698 Ho spita .3.896474 084.8 l .8 2021-03-11 2021-03-11 Lab Carole, 1.2.840.1 [id number] 2099 [id number] Methodi 08:59:28 09:04:28 Juan Dominguez 25627.1.[address] 3.430.2.7 Hospit a .3.304207 l .8 2021-03-11 2021-03-11 Travel 1.2.840.1 1.2.702.102 2772 [id number] Methodi 00:00:00 00:00:[address] 3.430.2.7 0.2.7.3.698 Ho spita .3.529971 084.8 l .8 2021-03-01 2021-03-01 Lab Leanne, 1.2.840.1 [id number] Methodi 08:39:40 08:44:40 Micheal Covarrubias [address]36.1.[address] 3.430.2.7 Hospit a .3.799684 l .8 2021-02-28 2021-02-28 Travel 1.2.840.1 1.2.398.711 8666 [id number] Methodi 00:00:00 00:00:[address] 3.430.2.7 0.2.7.3.698 Ho spita .3.884415 084.8 l .8 2021-02-25 2021-02-25 Travel 1.2.840.1 1.2.271.268 3847 [id number] Methodi 00:00:00 00:00:[address] 3.430.2.7 0.2.7.3.698 Ho spita .3.306783 084.8 l .8 2020-11-26 2020-11-26 Lab Carole, 1.2.840.1 [id number] 2099 [id number] Methodi 08:48:26 08:53:26 Juan Dominguez 51893.1.[address] 3.430.2.7 Hospit a .3.337046 l .8 2020-11-26 2020-11-26 Travel 1.2.840.1 1.2.689.571 0538 [id number] Methodi 00:00:00 00:00:[address] 3.430.2.7 0.2.7.3.698 Ho spita .3.251675 084.8 l .8 2020-11-15 2020-11-15 Travel 1.2.840.1 1.2.244.712 1840 [id number] Methodi 00:00:00 00:00:[address] 3.430.2.7 0.2.7.3.698 Ho spita .3.131931 084.8 l .8 2020-09-13 2020-09-13 Lab Carole, 1.2.840.1 [id number] Methodi 10:07:34 10:12:34 Juan Dominguez 22767.1.[address] 3.430.2.7 Hospit a .3.449770 l .8 2020-09-13 2020-09-13 Travel 1.2.840.1 1.2.352.348 7407 [id number] Methodi 00:00:00 00:00:[address] 3.430.2.7 0.2.7.3.698 Ho spita .3.304155 084.8 l .8 2020-09-03 2020-09-03 Lab Carole, 1.2.840.1 [id number] Methodi 07:58:11 08:03:11 Juan Dominguez 30584.1.[address] 3.430.2.7 Hospit a .3.429149 l .8 2020-09-03 2020-09-03 Travel 1.2.840.1 1.2.073.040 1036 [id number] Methodi 00:00:00 00:00:[address] 3.430.2.7 0.2.7.3.698 Ho spita .3.204812 084.8 l .8 2020-08-29 2020-08-29 Travel 1.2.840.1 1.2.422.745 2832 [id number] Methodi 00:00:00 00:00:[address] 3.430.2.7 0.2.7.3.698 Ho spita .3.130523 084.8 l .8 2020-08-13 2020-08-13 Travel 1.2.840.1 1.2.186.993 4289 626112 Methodi 00:00:00 00:00:[address] 3.430.2.7 0.2.7.3.698 Ho spita .3.758742 084.8 l .8 2020-07-30 2020-07-30 Travel 1.2.840.1 1.2.764.187 2497 [id number] Methodi 00:00:00 00:00:[address] 3.430.2.7 0.2.7.3.698 Ho spita .3.156210 084.8 l .8 2020-06-07 2020-06-07 Lab Leanne, 1.2.840.1 [id number] 6473 Methodi 07:23:50 07:28:50 Micheal Covarrubias 34826.1.[address] 3.430.2.7 Hospit a .3.312242 l .8 2020-06-06 2020-06-06 Travel 1.2.840.1 1.2.025.397 9968 [id number] Methodi 00:00:00 00:00:[address] 3.430.2.7 0.2.7.3.698 Ho spita .3.678469 084.8 l .8 2020-03-18 2020-03-18 Telephone WINSTON Heard 1.2.029.462 6179 [id number] [facility] 00:00:00 00:00:00 Gabriela TARIQ 350.1.13.10 [facility] 4.2.7.2.686 Devon as [id number] [address] 2020-03-18 2020-03-18 Telephone WINSTON Heard 1.2.381.403 [id number] [id number] 00:00:00 00:00:00 Gabriela TARIQ 350.1.13.10 [facility] 4.2.7.2.686 [id number] 019 2020-03-16 2020-03-16 Laboratory Only, Adc Test [facility] 1.2.840. 114 [id number] [facility] 15:00:29 15:15:29 Only Tay Hsu 350.1.13.10 [facility] 4.2.7.2.686 [facility] [id number] [place] [address] [place] 2020-03-16 2020-03-16 Laboratory Only, [facility] 1.2.840.114 [id number] 15:00:29 15:15:29 Only Test Karsten 350.1.13.10 Lov[place] 4.2.7.2.686 [place] [id number] 353 2020-03-16 2020-03-16 Chani HSU, [facility] [id number] 15:15:00 15:15:[address] [facility] 2020-01-30 2020-01-30 Lab Carole, 1.2.840.1 [id number] 2100 [id number] Methodi 04:42:28 04:47:28 Juan Covarrubias 50740.1.[address] 3.430.2.7 Hospit a .3.007734 l .8 2020-01-30 2020-01-30 Travel 1.2.840.1 1.2.596.434 7383 [id number] Methodi 00:00:00 00:00:[address] 3.430.2.7 0.2.7.3.698 Ho spita .3.581741 084.8 l .8 2020-01-23 2020-01-23 Lab Carole, 1.2.840.1 [id number] 2100 [id number] Methodi 04:55:00 05:00:00 Juan Covarrubias 34587.1.[address] 3.430.2.7 Hospit a .3.767767 l .8 2020-01-23 2020-01-23 Travel 1.2.840.1 1.2.072.085 0708 [id number] Methodi 00:00:00 00:00:[address] 3.430.2.7 0.2.7.3.698 Ho spita .3.194998 084.8 l .8 2020-01-09 2020-01-09 Lab Carole, 1.2.840.1 [id number] 2100 [id number] Methodi 05:05:00 05:10:00 Juan Covarrubias 24021.1.[address] 3.430.2.7 Hospit a .3.994277 l .8 2020-01-09 2020-01-09 Travel 1.2.840.1 1.2.459.014 8927 [id number] Methodi 00:00:00 00:00:[address] 3.430.2.7 0.2.7.3.698 Ho spita .3.908634 084.8 l .8 2019-07-04 2019-07-04 Outpatient Usha FABIAN [facility] [id number] [place] 00:00:00 00:00:[address] Results Test Description Test Time Test Comments Results Result Comments Source Creatinine level, urine, random 2021-04-15 17:11:47 Test Item Value Reference Range Interpretation Comme nts Creatinine, urine (mg/dL) (test code = 36973-7) 121 mg/dL [facility], [id number] 17:11:47 Test Item Value Reference Range Interpretation Comments Protein, urine random (test code = 161 mg/dL 2888-6) [facility] [id number] 15:53:04 Test Item Value Reference Range Interpretation Comments Urine culture (test SEE COMMENT Bacteriu deandre screen code = 7720599) negative. [facility] screen and microscopy, with reflex to culture 2021-04-15 15:53:03 Test Item Value Reference Range Interpretation Comments Specimen site (test Clean catch code = 2981788) Color, UA (test code = Straw 5778-6) Appearance, UA (test Clear code = 5767-9) Specific gravity, UA 1.001-1.035 (test code = 5811-5) pH, UA (test code = 5.0-8.5 5803-2) Protein, UA (test code 2+ Negative A = 77706-0) Glucose, UA (test code 3+ Negative A = 21823-8) Ketones, UA (test code Negative Negative = 2514-8) Bilirubin, UA (test Negative Negative code = 5770-3) Blood, UA (test code = Moderate Negative A 5794-3) Nitrite, UA (test code Negative Negative = 5802-4) Urobilinogen, UA (test <2.0 <2.0 code = 69529-0) Leukocyte esterase, UA Negative Negative (test code = 5799-2) WBC, UA (test code = See_Comment [Autom ated 5821-4) message] The sy stem which generated this result transmitted reference range : 0 - 1 /HPF. The reference range was not used to interpret this result as normal/abnormal . RBC, UA (test code = See_Comment [Autom ated 67877-0) message] The sy stem which generated this result transmitted reference range : 0 - 5 /HPF. The reference range was not used to interpret this result as normal/abnormal . Bacteria, UA (test code None seen None seen = 12222-4) Yeast, UA (test code = None seen 19214-2) Yeast with None seen pseudohyphae, UA (test code = 74990-4) Lab Interpretation Abnormal (test code = 00820-9) [facility], [id number] 21:24:19 Test Item Value Reference Range Interpretation Comments Protein, urine random (test code = 484 mg/dL 2888-6) [facility], urine, [id number] 16:47:21 Test Item Value Reference Range Interpretation Comments Creatinine, urine, random (test 201 mg/dL code = 06676-7) [facility] screen and microscopy, with reflex to culture 2020-11-26 15:18:17 Test Item Value Reference Range Interpretation Comments Specimen site (test Clean catch code = 0119452) Color, UA (test code = Yellow 5778-6) Appearance, UA (test Clear code = 5767-9) Specific gravity, UA 1.001-1.035 (test code = 5811-5) pH, UA (test code = 5.0-8.5 5803-2) Protein, UA (test code 3+ Negative A = 57892-9) Glucose, UA (test code 1+ Negative A = 26753-6) Ketones, UA (test code Negative Negative = 2514-8) Bilirubin, UA (test Negative Negative code = 5770-3) Blood, UA (test code = Moderate Negative A 5794-3) Nitrite, UA (test code Negative Negative = 5802-4) Urobilinogen, UA (test <2.0 <2.0 code = 75271-2) Leukocyte esterase, UA Negative Negative (test code = 5799-2) WBC, UA (test code = See_Comment [Autom ated 5821-4) message] The sy stem which generated this result transmitted reference range : 0 - 1 /HPF. The reference range was not used to interpret this result as normal/abnormal . RBC, UA (test code = See_Comment H [Autom ated 58482-9) message] The sy stem which generated this result transmitted reference range : 0 - 5 /HPF. The reference range was not used to interpret this result as normal/abnormal . Bacteria, UA (test code None seen None seen = 26645-3) Yeast, UA (test code = None seen 15147-2) Yeast with None seen pseudohyphae, UA (test code = 68814-1) Hyaline casts, UA (test See_Comment [Au tomated code = 5796-8) message] The system which generated this result transmitted reference range : /LPF. The refer ence range was not u sed to interpret th is result as normal/abnormal . Lab Interpretation Abnormal (test code = 09884-0) [facility] [id number] 14:41[facility]27 Test Item Value Reference Range Interpretation Comments Urine culture (test SEE COMMENT Bacteriu deandre screen code = 6882849) negative. [facility]2019-09-17 04:32:00 Test Item Value Reference Range Interpretation Comments SARS-COV2/RT-PCR (test Not Detected Not Detected, Negative code = 8412847) SARS-COV-[address] [facility] (test code = 8442456) Negative results do not preclude SARS-CoV-2 infection [...] of the Act.Fact Sheet for Healthcare Pro viders:[email or web address] eets/[email or web address]-CGB-2%20HEALTHCARE%20PROVIDERS%20FACT%20SHEET.pdfFact Sheet for Healthcare Patients:https://[email or web address]/Documents/Xpert%20Xpress%20SARS%20CoV-2/Fact%20Sheets/3023801%20SARS-COV -2%20PATIENT%20FACT%20SHEET.pdfPerforming Laboratory:[facility] [place] [place] [address]
--- NOTE | 2021-09-22 18:18 | RAD REPORT ---
EXAM DESCRIPTION: CT - Head Brain Wo Cont - 09/22/2021 6:01 pm CLINICAL HISTORY: Syncope COMPARISON: 2020 TECHNIQUE: Computed axial tomography of the head was obtained. IV contrast was not requested. All CT scans are performed using dose optimization technique as appropriate and may include automated exposure control or mA/KV adjustment according to patient size. FINDINGS: An intracranial bleed is not seen . The ventricles are normal in caliber. No extra-axial fluid collection is noted. Mild low-density areas within periventricular, deep and subcortical white matter likely represent isc hemic changes secondary to small vessel disease. Fluid within the sinuses/ mastoids is not seen. IMPRESSION: No acute intracranial abnormality is seen. If patient's symptoms persist MRI of the bra in would be recommended.
--- NOTE | 2021-09-22 18:19 | RAD REPORT ---
EXAM DESCRIPTION: RAD - Lumbar Spine 3 Views - 09/22/2021 6:10 pm CLINICAL HISTORY: Back pain FINDINGS: No fracture or dislocation is seen. Mild to moderate spondylosis involves lumbar spine mainly consisting of osteophytes. Osteoarthritis i nvolves the facet joints of lower lumbar spine
[2021-09-22] MEDS ORDERED: ACETAMINOPHEN 500 MG TAB ONE (18:25)
[2021-09-22] MEDS ORDERED: ONDANSETRON 4 MG (ODT) TAB ONE (18:26)
--- NOTE | 2021-09-22 18:30 | ER ---
Nurse's Notes [facility] Name: Shoaib Freitas Jr Age: 56 yrs Sex: Male : 1965 Arrival Date: 09/22/2021 Time: 16:59 Bed 4 Private MD: Diagnosis: VASOVAGAL SYNCOPE Presentation: 09/22 17:03 Coronavirus screen: At this time, the client does not indicate any symptoms associated jl7 with coronavirus-19. Ebola Screen: No symptoms or risks identified at this time. Risk Assessment: Do you want to hurt yourself or someone else? Patient reports no desire to harm self or others. Onset of symptoms was September 22, 2021 at 16:10. 17:03 Chief complaint: EMS states: Pt was sitting down eating peanuts and began to cough, vg1 stood up and then fell back and hit head against wall, pt had LOC for about 1 minute; pt states dizziness and nausea. Pt is on Xarelto, BG 125. Care prior to arrival: None. Mechanism of Injury: Fall from standing position. Trauma event details: Injury occurred in the [facility]. 17:03 Acuity: COBY 2 vg1 17:03 Method Of Arrival: EMS: [facility] vg1 17:17 Initial Sepsis Screen: Does the patient meet any 2 criteria? Yes Does the patient have vg1 a suspected source of infection? No. Patient's initial sepsis screen is negative. Trauma Activation: Physician: ED Physician; Name: YAZMIN; Notified At: ; Arrived At: Physician: General Surgeon; Name: ; Notified At: ; Arrived At: Physician: Radiology; Name: ; Notified At: ; Arrived At: Physician: Respiratory; Name: ; Notified At: ; Arrived At: Physician: Lab; Name: ; Notified At: ; Arrived At: Historical: - Allergies: 17:04 No Known Allergies; jl7 - PMHx: 17:04 Gall Stones; history of dialysis; Hypertension; kidney transplant; Pancreatitis; jl7 - PSHx: 17:04 kidney transplant; jl7 - Immunization history: Last tetanus immunization: unknown. - Social history:: Smoking status: Patient/guardian denies using tobacco, the patient reports quitting approximately 2 years ago. Screenin:07 Abuse screen: Denies threats or abuse. Nutritional screening: No deficits noted. vg1 Tuberculosis screening: No symptoms or risk factors identified. 17:09 Fall Risk No fall in past 12 months (0 pts). No secondary diagnosis (0 pts). No IV (0 vg1 pts). Ambulatory Aid- None/Bed Rest/Nurse Assist (0 pts). Gait- Normal/Bed Rest/Wheelchair (0 pts) Mental Status- Oriented to own ability (0 pts). Total Pacheco Fall Scale indicates No Risk (0-24 pts). Primary Survey: 17:03 NO uncontrolled hemorrhage observed. A: The client is awake and alert. The airway is vg1 patent. Breathing/Chest: Spontaneous respiratory effort, equal unlabored respirations, breath sounds clear bilaterally, regular pattern, symmetrical chest rise and fall. Circulation: No external hemorrhage present. Regular and strong central pulse, skin warm/dry/normal color. Disability Client is alert. Exposure/Environment: A warming method has been applied: A warm blanket has been provided to the patient. 17:30 Reassessment Alertness and Airway: Awake and alert. The airway is patent. Breathing: jl7 Spontaneous respiratory effort, equal unlabored respirations, breath sounds clear bilaterally, regular pattern with symmetrical chest rise and fall. Respiratory effort Spontaneous Unlabored Breath sounds Clear Respiratory pattern Regular Chest inspection Symmetrical Circulation: No external hemorrhage noted. Regular and strong central pulse, skin warm/dry/normal color. Disability: Alert. Secondary Survey: 17:03 HEENT: Head No injury/deformity. Gastrointestinal: No deficits noted. : No deficits vg1 noted. Musculoskeletal: No deficits noted. Assessment: 17:03 General: Appears in no apparent distress. comfortable, Behavior is calm, cooperative. vg1 Pain: Complains of pain in head and back Pain currently is 7 out of 10 on a pain scale. Neuro: Archibald Agitation-Sedation Scale (RASS): 0 - Alert and Calm Level of Consciousness is awake, alert, obeys commands, Oriented to person, place, time, situation. EENT: No signs and/or symptoms were reported regarding the EENT system. Cardiovascular: Patient's skin is warm and dry. Respiratory: Airway is patent Respiratory effort is even, unlabored. GI: Abdomen is round non-distended, Reports nausea. : No signs and/or symptoms were reported regarding the genitourinary system. Derm: Skin is intact, is healthy with good turgor. Musculoskeletal: Circulation, motion, and sensation intact. 18:00 Reassessment: Patient appears in no apparent distress at this time. No changes from vg1 previously documented assessment. Patient and/or family updated on plan of care and expected duration. Pain level reassessed. Patient is alert, oriented x 3, equal unlabored respirations, skin warm/dry/pink. Vital Signs: 17:03 BP 128 / 73; Pulse 84; Resp 16; Pulse Ox 98% on R/A; Weight 113.4 kg; Height 5 ft. 11 vg1 in. (180.34 cm); Pain 7/10; 17:03 Temp 98.4; jl7 17:29 BP 107 / 64; Pulse 84; Resp 15 S; Pulse Ox 95% on R/A; jl7 18:24 BP 127 / 74; Pulse 78; Resp 16; Pulse Ox 99% on R/A; vg1 17:03 Body Mass Index 34.87 (113.40 kg, 180.34 cm) vg1 [place] Coma Score: 17:07 Eye Response: spontaneous(4). Verbal Response: oriented(5). Motor Response: obeys vg1 commands(6). Total: 15. 17:29 Eye Response: spontaneous(4). Verbal Response: oriented(5). Motor Response: obeys jl7 commands(6). Total: 15. 18:24 Eye Response: spontaneous(4). Verbal Response: oriented(5). Motor Response: obeys vg1 commands(6). Total: 15. Trauma Score (Adult): 17:07 Eye Response: spontaneous(1); Verbal Response: oriented(1); Motor Response: obeys vg1 commands(2); Systolic BP: > 89 mm Hg(4); Respiratory Rate: 10 to 29 per min(4); Sonido Score: 15; Trauma Score: 12 ED Course: 16:59 Patient arrived in ED. eb 17:01 Marjan Pittman PA is PHCP. en 17:01 Panfilo Peter MD is Attending Physician. en 17:03 Thalia Velasquez RN is Primary Nurse. jl7 17:05 Triage completed. vg1 17:07 Patient has correct armband on for positive identification. Bed in low position. Call vg1 light in reach. Side rails up X2. 17:07 Patient maintains SpO2 saturation greater than 95% on room air. vg1 17:08 Patient placed. vg1 17:08 Arm band placed on. vg1 17:09 No provider procedures requiring assistance completed. vg1 17:17 Thermoregulation: warm blanket given to patient. vg1 18:03 CT Head Brain wo Cont In Process Unspecified. EDMS 18:12 Lumbar Spine (3 Views) XRAY In Process Unspecified. EDMS 18:41 Patient did not have IV access during this emergency room visit. jl7 Administered Medications: 18:23 Drug: Zofran (Ondansetron) 4 mg Route: PO; vg1 18:41 Follow up: Response: No adverse reaction jl7 18:24 Drug: Tylenol 1000 mg Route: PO; vg1 18:41 Follow up: Response: No adverse reaction jl7 Medication: 18:42 VIS not applicable for this client. jl7 Intake: 18:38 PO: 0ml; IV: 0ml; Tubes: 0ml (); Total: 0ml. jl7 Output: 18:38 Urine: 0ml; Gastric: 0ml; Stool: 0; EBL: 0ml; Drainage: 0ml; Other: 0; Total: 0ml. jl7 Outcome: 18:29 Discharge ordered by MD. en 18:41 Discharged to home ambulatory, with family. jl7 18:41 Condition: stable 18:41 Discharge instructions given to patient, Instructed on discharge instructions, follow up and referral plans. Demonstrated understanding of instructions, follow-up care. 18:42 Patient's length of stay was not longer than 2 hours. jl7 18:42 Patient left the ED. jl7 Signatures: Dispatcher [employer] EDMS Thalia Velasquez RN RN jl7 Marjan Aleman Victoria RN RN vg1 Marjan Pittman PA PA en Corrections: (The following items were deleted from the chart) 17:07 17:03 Chief complaint: EMS states: Pt was sitting down eating peanuts and began to vg1 cough, stood up and then fell back and hit head against wall, pt had LOC for about 1 minute; pt states dizziness and nausea. Pt is on Xarelto vg1
--- NOTE | 2021-09-22 18:30 | EDPHYS ---
Physician Documentation [facility] Name: Shaoib Freitas Jr Age: 56 yrs Sex: Male : 1965 Arrival Date: 09/22/2021 Time: 16:59 Bed 4 Private MD: ED Physician Panfilo Peter HPI: 09/22 17:33 This 56 yrs old Black Male presents to ER via EMS with complaints of Fall Injury. en 17:33 56-year-old male with history of hypertension, DVT on Eliquis presents to ED after en choking on a peanut, coughing so hard that he passed out. reports that he was choking on a peanut and coughing. He threw his head backhanded on the wall and passed out. She called EMS. He has been ANO x3 since waking up shortly after falling. He denied preceding shortness of breath, difficulty breathing, palpitations, lightheadedness or dizziness. Upon arrival to the ED, he reports low back pain and mild occipital headache. No numbness, tingling or weakness. No altered mental status.. Historical: - Allergies: 17:04 No Known Allergies; jl7 - PMHx: 17:04 Gall Stones; history of dialysis; Hypertension; kidney transplant; Pancreatitis; jl7 - PSHx: 17:04 kidney transplant; jl7 - Immunization history: Last tetanus immunization: unknown. - Social history:: Smoking status: Patient/guardian denies using tobacco, the patient reports quitting approximately 2 years ago. ROS: 17:33 Constitutional: Negative for fever, chills, and weight loss. en 17:33 Eyes: Negative for blurry vision, visual disturbance. 17:33 Neck: Negative for injury or acute deformity, pain with movement, pain at rest. 17:33 Cardiovascular: Negative for chest pain, orthopnea, palpitations. 17:33 Respiratory: Positive for Cough secondary to choking on a peanut., Negative for shortness of breath, wheezing. 17:33 Abdomen/GI: Negative for nausea and vomiting. 17:33 Back: Positive for pain with movement, Low back pain with movement.. 17:33 All other systems are negative. Exam: 17:33 Constitutional: This is a well developed, well nourished patient who is awake, alert, en and in no acute distress. 17:33 Constitutional: The patient appears in no acute distress, alert, awake. 17:33 Head/face: Exam is negative for acute changes, obvious evidence of injury or deformity. 17:33 Eyes: Pupils: no acute changes, equal, round, and reactive to light and accomodation, Extraocular movements: intact throughout, Conjunctiva: normal, no exudate, no injection, no subconjunctival hemorrhage 17:33 ENT: TM's: are normal, no dullness, no erythema, no fluid levels, no hemotympanum, Mouth: Lips: moist, Oral mucosa: pink and intact, moist, Posterior pharynx: is normal, no erythema, no exudate, no swelling, normal tonsil apperance, normal sized tonsils, Airway: patent. 17:33 Neck: ROM/movement: limited range of motion, is not appreciated. 17:33 Chest/axilla: Exam negative for acute changes, Inspection: normal. 17:33 Cardiovascular: Rate: normal, Rhythm: regular, Pulses: no pulse deficits are appreciated, Heart sounds: normal, no murmur, no rub, no gallop. 17:33 Respiratory: the patient does not display signs of respiratory distress. 17:33 Respiratory: Respirations: normal, Breath sounds: are clear throughout, no rales, rhonchi, no stridor, no wheezing. 17:33 Abdomen/GI: Inspection: abdomen appears normal, Bowel sounds: normal, active, all quadrants, Palpation: soft, in all quadrants. 17:33 Back: vertebral tenderness, is not appreciated. 17:33 Skin: no rash present. 17:33 Neuro: Orientation: is normal, to person, place \T\ time. Mentation: appropriate for stated age. 17:33 Psych: Behavior/mood is pleasant, cooperative, Affect is calm. Vital Signs: 17:03 BP 128 / 73; Pulse 84; Resp 16; Pulse Ox 98% on R/A; Weight 113.4 kg; Height 5 ft. 11 vg1 in. (180.34 cm); Pain 7/10; 17:03 Temp 98.4; jl7 17:29 BP 107 / 64; Pulse 84; Resp 15 S; Pulse Ox 95% on R/A; jl7 18:24 BP 127 / 74; Pulse 78; Resp 16; Pulse Ox 99% on R/A; vg1 17:03 Body Mass Index 34.87 (113.40 kg, 180.34 cm) vg1 Sonido Coma Score: 17:07 Eye Response: spontaneous(4). Verbal Response: oriented(5). Motor Response: obeys vg1 commands(6). Total: 15. 17:29 Eye Response: spontaneous(4). Verbal Response: oriented(5). Motor Response: obeys jl7 commands(6). Total: 15. 18:24 Eye Response: spontaneous(4). Verbal Response: oriented(5). Motor Response: obeys vg1 commands(6). Total: 15. Trauma Score (Adult): 17:07 Eye Response: spontaneous(1); Verbal Response: oriented(1); Motor Response: obeys vg1 commands(2); Systolic BP: > 89 mm Hg(4); Respiratory Rate: 10 to 29 per min(4); Sonido Score: 15; Trauma Score: 12 MDM: 17:10 Patient medically screened. en 17:33 Differential diagnosis: closed head injury, contusion, vasovagal syncope. Data en reviewed: vital signs, nurses notes, EKG, radiologic studies, and as a result, I will. 18:27 Data reviewed: EKG, Normal sinus rhythm at 70 bpm. No STEMI left axis deviation. ED en course: Reviewed imaging with patient. No intracranial injury and no fracture to the lumbar spine. Patient with vasovagal syncopal episode after coughing. Will DC home in stable condition asymptomatic. 09/22 17:16 Order name: CT Head Brain wo Cont; Complete Time: 18:27 en 09/22 17:16 Order name: Lumbar Spine (3 Views) XRAY; Complete Time: 18:27 en 09/22 17:38 Order name: EKG - Nurse/Tech; Complete Time: 18:07 en Administered Medications: 18:23 Drug: Zofran (Ondansetron) 4 mg Route: PO; vg1 18:41 Follow up: Response: No adverse reaction jl7 18:24 Drug: Tylenol 1000 mg Route: PO; vg1 18:41 Follow up: Response: No adverse reaction jl7 Disposition: 18:46 Co-signature as Attending Physician, Panfilo Peter MD I agree with the assessment and kdr plan of care. Disposition Summary: 09/22/21 18:29 Discharge Ordered Location: Home en Problem: new en Symptoms: have improved en Condition: Stable en Diagnosis - VASOVAGAL SYNCOPE en Followup: en - With: Private Physician - When: As needed - Reason: Forms: - Medication Reconciliation Form en - Thank You Letter en - Antibiotic Education en - Prescription Opioid Use en Signatures: Dispatcher [employer] EDMS Panfilo Peter MD MD kdr Leal, Jahala RN RN jl7 Ammy Heard RN RN vg1 Marjan Pittman PA PA en
[2021-09-22 18:51] VITALS: TEMP 98.4
[2021-09-22 18:54] VITALS: BP 127/74; O2SAT 99
--- NOTE | 2021-09-23 13:34 | EKG ---
Test Date: 2021-09-22 Test Time: 17:45:02 Network Developer: DEYANIRA MEASUREMENT RESULTS: Intervals: Rate: 78 WV: 156 QRSD: 102 QT: 378 QTc: 430 Donaldson: P: 49 WV: 156 QRS: -1 T: 34 INTERPRETIVE STATEMENTS: Normal sinus rhythm Inferior infarct, age undetermined Abnormal ECG Compared to ECG 07/07/2021 15:39:56 No significant changes Electronically Signed On 09-23-21 13:33:26 CDT by Sumit Arroyo
== END 2021-09-22 18:42 | disposition home or self-care (01) ==
LOC: ER 16:58
DX: R55 Syncope and collapse (principal); I10 Essential (primary) hypertension; Z94.0 Kidney transplant status; Z86.718 Personal history of other venous thrombosis and embolism; Z79.01 Long term (current) use of anticoagulants
CPT/HCPCS: 70450; 72100; 93005; 99284

== ENCOUNTER 2022-04-22 23:37 | Emergency (ER) | payer MEDICARE, OTHER ==
--- OUTSIDE RECORDS SUMMARY | 2022-04-22 23:40 | XMS REPORT | Continuity of Care Document ---
:1965 Author Organization [facility] t Address [address] [place] [address] Care Team Providers Name Role Phone Peter ALVAREZ, Terrence Gerardo Primary Care Physician [phone] Ernie ALVAREZ, Juan Dominguez Attending Clinician Micheal Perdomo MD Attending Clinician Gabriela Heard RN Attending Clinician Unavailable Only, Adc Test Attending Clinician Unavailable Tay Hsu MD Attending Clinician TAY HSU Attending Clinician Unavailable Usha FABIAN Attending Clinician Unavailable Payers Payer Name Policy Type Policy Number Effective Date Expiration Date [facility] [id number] 2022 (MEDICARE 00:00:00 REPLACEMENT HMO) Problems Condition Condition Condition Status Onset Resolution [...] Date Date Clinician NO KNOWN Drug Active [facility] ALLERGIE Class ity [facility] Family History Family Member Diagnosis Comments Start Date Stop Date Source Natural father Hypertension [facility] Natural mother Heart disease [facility] Natural mother Hypertension [facility] Natural sister Diabetes [facility] Social History Social Habit Start Date Stop Date Quantity Comments Source History of Current smoker [facility] Exposure to Not sure [facility] SARS-CoV-2 [facility] (event) Alcohol intake 2018-01-18 2018-01-18 Current [facility] 00:00:00 00:00:00 non-drinker of Hospital alcohol (finding) Tobacco use and 2018-01-15 2018-01-15 Smokeless tobacco [facility] exposure 00:00:00 00:00:00 non-user Hospital Tobacco Comment 2018-01-15 2018-01-15 "Quit 2-3 months [facility] 00:00:00 00:00:00 ago" Hospital Sex Assigned At [birth year] [facility] 00:00[facility] 00[facility]:00 Hospital Smoking Status Start Date Stop Date Source Unknown if ever smoked [facility] Ex-smoker 2018-01-15 00:00:00 2018-01-15 00:00:00 [facility] Current some 2016-03-26 00:00:00 [facility] smoker Center Medications Ordered Filled Start Stop [...] 37 daily. l 24 hr capsule mycophenola 2018-1 Yes 500mg Q.5D Take 500 M ethodi [...] tablet 10:18: daily. Hospit a 37 l pantoprazol 2017-04 [...] tablet 10:18: daily. Hospit a 37 l pantoprazol 2017-04 [...] Time Performing Clinician Source Performed URINE CULTURE 2022-01-30 14:44:00 [facility] HC COMPLETE BLD COUNT 2022-01-30 14:44:00 [facility] W/AUTO DIFF MAGNESIUM LEVEL 2022-01-30 14:44:00 [facility] PHOSPHORUS LEVEL 2022-01-30 14:44:00 [facility] URIC ACID LEVEL 2022-01-30 14:44:00 [facility] LDH 2022-01-30 14:44:00 [facility] URINALYSIS SCREEN AND 2022-01-30 14:44:00 [facility] MICROSCOPY, WITH REFLEX TO CULTURE PROTEIN, URINE, RANDOM 2022-01-30 14:44:00 [facility] CREATININE LEVEL, URINE, 2022-01-30 14:44:00 [facility] RANDOM COMPREHENSIVE METABOLIC 2022-01-30 14:44:00 [facility] PANEL CYCLOSPORINE LEVEL, 2022-01-30 14:44:00 [facility] RANDOM ESTIMATED GFR 2022-01-30 14:44:00 [facility] URINE CULTURE 2021-09-05 14:13:00 [facility] HC COMPLETE BLD COUNT 2021-09-05 14:13:00 [facility] W/AUTO DIFF MAGNESIUM LEVEL 2021-09-05 14:13:00 [facility] PHOSPHORUS LEVEL 2021-09-05 14:13:00 [facility] URIC ACID LEVEL 2021-09-05 14:13:00 [facility] LDH 2021-09-05 14:13:00 [facility] URINALYSIS SCREEN AND 2021-09-05 14:13:00 [facility] MICROSCOPY, WITH REFLEX TO CULTURE PROTEIN, URINE, RANDOM 2021-09-05 14:13:00 [facility] CREATININE LEVEL, URINE, 2021-09-05 14:13:00 [facility] RANDOM COMPREHENSIVE METABOLIC 2021-09-05 14:13:00 [facility] PANEL CYCLOSPORINE LEVEL, 2021-09-05 14:13:00 [facility] RANDOM ESTIMATED GFR 2021-09-05 14:13:00 [facility] URINE CULTURE 2021-04-15 14:00:00 [facility] HC COMPLETE BLD COUNT 2021-04-15 14:00:00 [facility] W/AUTO DIFF MAGNESIUM LEVEL 2021-04-15 14:00:00 [facility] PHOSPHORUS LEVEL 2021-04-15 14:00:00 [facility] URIC ACID LEVEL 2021-04-15 14:00:00 [facility] LDH 2021-04-15 14:00:00 [facility] URINALYSIS SCREEN AND 2021-04-15 14:00:00 [facility] MICROSCOPY, WITH REFLEX TO CULTURE PROTEIN, URINE, RANDOM 2021-04-15 14:00:00 [facility] CREATININE LEVEL, URINE, 2021-04-15 14:00:00 [facility] RANDOM CYCLOSPORINE LEVEL, 2021-04-15 14:00:00 [facility] RANDOM COMPREHENSIVE METABOLIC 2021-04-15 14:00:00 [facility] PANEL ESTIMATED GFR 2021-04-15 14:00:00 [facility] URINE CULTURE 2021-03-18 14:23:00 [facility] HC COMPLETE BLD COUNT 2021-03-18 14:23:00 [facility] W/AUTO DIFF MAGNESIUM LEVEL 2021-03-18 14:23:00 [facility] PHOSPHORUS LEVEL 2021-03-18 14:23:00 [facility] URIC ACID LEVEL 2021-03-18 14:23:00 [facility] LDH 2021-03-18 14:23:00 [facility] CREATININE LEVEL, URINE, 2021-03-18 14:23:00 [facility] RANDOM URINALYSIS SCREEN AND 2021-03-18 14:23:00 [facility] MICROSCOPY, WITH REFLEX TO CULTURE PROTEIN, URINE, RANDOM 2021-03-18 14:23:00 [facility] COMPREHENSIVE METABOLIC 2021-03-18 14:23:00 [facility] PANEL CYCLOSPORINE LEVEL, 2021-03-18 14:23:00 [facility] RANDOM ESTIMATED GFR 2021-03-18 14:23:00 [facility] HC COMPLETE BLD COUNT 2021-03-11 15:30:00 Ernie [facility] W/AUTO DIFF MAGNESIUM LEVEL 2021-03-11 15:30:00 [facility] 2021-03-11 15:30:00 Juan Klein [facility] URIC ACID LEVEL 2021-03-11 15:30:[address] [facility] LDH 2021-03-11 15:30:00 [facility] 2021-03-11 15:30:00 Juan Klein [facility] PANEL CYCLOSPORINE LEVEL, 2021-03-11 15:30:00 Juan Klein [facility] RANDOM ESTIMATED GFR 2021-03-11 15:30:00 [facility] 2021-03-11 15:15:00 Juan Klein [facility] URINALYSIS SCREEN AND 2021-03-11 15:15:00 [facility], WITH REFLEX TO CULTURE PROTEIN, URINE, RANDOM 2021-03-11 15:15:00 Ernie [facility] CREATININE LEVEL, URINE, 2021-03-11 15:15:00 Ernie [facility] RANDOM URINE CULTURE 2021-02-28 15:08:00 [facility] HC COMPLETE BLD COUNT 2021-02-28 15:08:00 [facility] W/AUTO DIFF MAGNESIUM LEVEL 2021-02-28 15:08:00 [facility] PHOSPHORUS LEVEL 2021-02-28 15:08:00 [facility] URIC ACID LEVEL 2021-02-28 15:08:00 [facility] LDH 2021-02-28 15:08:00 [facility] URINALYSIS SCREEN AND 2021-02-28 15:08:00 [facility] MICROSCOPY, WITH REFLEX TO CULTURE PROTEIN, URINE, RANDOM 2021-02-28 15:08:00 [facility] CREATININE LEVEL, URINE, 2021-02-28 15:08:00 LeanneMicheal power [facility] RANDOM COMPREHENSIVE METABOLIC 2021-02-28 15:08:00 Leanne, [facility] PANEL [id number] TACROLIMUS LEVEL, 2021-02-28 15:08:00 LeanneMicheal power Georgina [facility] RANDOM CYCLOSPORINE LEVEL, 2021-02-28 15:08:00 [facility] ESTIM[facility] GFR 2021-02-28 15:08:00 [facility] URINE CULTURE 2020-11-26 14:11:00 [facility] COMPLETE BLD [facility] 2020-11-26 14:11:00 [place] [facility] W/AUTO DIFF MAGNESIUM LEVEL 2020-11-26 14:11:00 [facility] PHOS[facility]ORUS [facility]EL 2020-11-26 14:11:00 [facility] 2020-11-26 14:11:00 Juan Klein [facility] LDH 2020-11-26 14:11:00 [facility]IN[facility]EN AND 2020-11-26 14:11:00 [facility] MICROSCOPY, WITH REFLEX TO CULTURE CREATININE LEVEL, URINE, 2020-11-26 14:11:00 [place] [facility] RANDOM PROTEIN, URINE, RANDOM 2020-11-26 14:11:00 [facility] CYCLOSPORINE LEVEL, 2020-11-26 14:11[facility] PARATHYROID HORMONE 2020-11-26 14:11:00 [facility] VITAMIN D 25 HYDROXY 2020-11-26 14:11:00 Juan Klein [facility] LEVEL COMPREHENSIVE METABOLIC 2020-11-26 14:11:00 Juan Klein [facility] PANEL ESTIMATED GFR 2020-11-26 14:11:00 Ernie [facility] URINE CULTURE 2020-09-13 15:29:00 Juan Klein [facility] HC COMPLETE BLD COUNT 2020-09-13 15:29:00 Ernie [facility] W/AUTO DIFF MAGNESIUM LEVEL 2020-09-13 15:29:00 Juan Klein [facility] PHOSPHORUS LEVEL 2020-09-13 15:29:00 [facility] 2020-09-13 15:29:00 [facility] 2020-09-13 15:29:00 Juan Klein [facility] URINALYSIS SCREEN AND 2020-09-13 15:29:00 Ernie [facility] MICROSCOPY, WITH REFLEX TO CULTURE CREATININE LEVEL, URINE, 2020-09-13 15:29:00 Ernie [facility] RANDOM PROTEIN, URINE, RANDOM 2020-09-13 15:29:00 Ernie [facility] COMPREHENSIVE METABOLIC 2020-09-13 15:29:00 Juan Klein [facility] PANEL CYCLOSPORINE LEVEL, 2020-09-13 15:29:00 Juan Klein [facility] RANDOM PARATHYROID HORMONE 2020-09-13 15:29:00 Juan Klein [facility] VITAMIN D 25 HYDROXY 2020-09-13 15:29:00 Juan Klein [facility] LEVEL ESTIMATED GFR 2020-09-13 15:29:00 Juan Klein [facility] SMEAR REVIEW 2020-09-13 15:29:00 Juan Klein [facility] URINE CULTURE 2020-09-03 13:21:00 Juan Klein [facility] HC COMPLETE BLD COUNT 2020-09-03 13:21:00 Ernie [facility] W/AUTO DIFF MAGNESIUM LEVEL 2020-09-03 13:21:00 Juan Klein [facility] PHOSPHORUS LEVEL 2020-09-03 13:21:00 Juan Klein [facility] URIC ACID LEVEL 2020-09-03 13:21:00 [facility] 2020-09-03 13:21:00 Ernie, [facility] URINALYSIS SCREEN AND 2020-09-03 13:21:00 [facility] MICROSCOPY, WITH REFLEX TO CULTURE CREATININE LEVEL, URINE, 2020-09-03 13:21:00 [facility] RANDOM PROTEIN, URINE, RANDOM 2020-09-03 13:21:00 [facility] COMPREHENSIVE METABOLIC 2020-09-03 13:21:00 [facility] PANEL CYCLOSPORINE LEVEL, 2020-09-03 13:21:00 [facility] RANDOM PARATHYROID HORMONE 2020-09-03 13:21:00 [facility] VITAMIN D 25 HYDROXY 2020-09-03 13:21:00 [facility] LEVEL ESTIMATED GFR 2020-09-03 13:21:00 [facility] URINE CULTURE 2020-06-06 15:13:00 [facility] COMPREHENSIVE METABOLIC 2020-06-06 15:13:00 [facility] PANEL HC COMPLETE BLD COUNT 2020-06-06 15:13:00 [facility] W/AUTO DIFF MAGNESIUM LEVEL 2020-06-06 15:13:00 [facility] PHOSPHORUS LEVEL 2020-06-06 15:13:00 [facility] URIC ACID LEVEL 2020-06-06 15:13:00 [facility] LDH 2020-06-06 15:13:00 [facility] URINALYSIS SCREEN AND 2020-06-06 15:13:00 [facility] MICROSCOPY, WITH REFLEX TO CULTURE CREATININE LEVEL, URINE, 2020-06-06 15:13:00 [facility] RANDOM CYCLOSPORINE LEVEL, 2020-06-06 15:13:00 [facility] RANDOM PROTEIN, URINE, RANDOM 2020-06-06 15:13:00 [facility] ESTIMATED GFR 2020-06-06 15:13:00 [facility] 2020-01-30 12:52:[address] [facility] COMPREHENSIVE METABOLIC 2020-01-30 12:52:00 Juan Klein [facility] PANEL HC COMPLETE BLD COUNT 2020-01-30 12:52:00 Juan Klein MGeorgina [facility] W/AUTO DIFF MAGNESIUM LEVEL 2020-01-30 12:52:00 Juan Klein MGeorgina [facility] PHOSPHORUS LEVEL 2020-01-30 12:52:00 [facility]IC ACID LEVEL 2020-01-30 12:52:00 [facility] 2020-01-30 12:52:00 [facility] URINALYSIS SCREEN AND 2020-01-30 12:52:00 Juan Klein [facility] MICROSCOPY, WITH REFLEX TO CULTURE CREATININE LEVEL, URINE, 2020-01-30 12:52:00 Juan Klein [facility] RANDOM PROTEIN, URINE, RANDOM 2020-01-30 12:52:00 Juan Klein [facility] CYCLOSPORINE LEVEL, 2020-01-30 12:52:[address] [facility] RANDOM ESTIMATED GFR 2020-01-30 12:52:[address] [facility] Plan of Care Planned Activity Planned Date Details Comments Source Future Scheduled 2022-03-26 COLONOSCOPY SCREENING [facility] Test 23:31:27 [code = COLONOSCOPY SCREENING] Future Scheduled 2022-03-26 SHINGLES VACCINES (1 Met [facility] Test 23:31:27 of 2) [code = SHINGLES VACCINES (1 of 2)] Future Scheduled 2022-03-26 COVID-19 VACCINE (2 - [facility] Test 23:31:27 Moderna series) [code = COVID-19 VACCINE (2 - Moderna series)] Future Scheduled 2022-03-26 INFLUENZA VACCINE Method [facility] Test 23:31:27 [code = INFLUENZA VACCINE] Future Scheduled 2022-02-07 HEPATITIS B VACCINES Met [facility] Test 08:46:41 (1 of 3 - 3-dose series) [code = HEPATITIS B VACCINES (1 of 3 - 3-dose series)] Future Scheduled 2022-02-07 Pneumococcal Vaccine: [facility] Test 08:46:41 Pediatrics (0 to 5 Years) and At-Risk Patients (6 to 64 Years) (1 - PCV) [code = Pneumococcal Vaccine: Pediatrics (0 to 5 Years) and At-Risk Patients (6 to 64 Years) (1 - PCV)] Future Scheduled 2022-02-07 Hepatitis C screening [facility] Test 08:46:41 (procedure) [code = 268235015] Future Scheduled 2022-02-07 SHINGLES VACCINES (1 Met [facility] Test 08:46:41 of 2) [code = SHINGLES VACCINES (1 of 2)] Future Scheduled 2022-02-07 COLONOSCOPY SCREENING [facility] Test 08:46:41 [code = COLONOSCOPY SCREENING] Future Scheduled 2022-02-07 COVID-19 VACCINE (2 - [facility] Test 08:46:41 Moderna risk series) [code = COVID-19 VACCINE (2 - Moderna risk series)] Future Scheduled 2022-02-07 INFLUENZA VACCINE Method [facility] Test 08:46:41 [code = INFLUENZA VACCINE] Future Scheduled 2021-04-15 Hepatitis C screening [facility] Test 08:27:26 (procedure) [code = 710555207] Future Scheduled 2021-04-15 COLONOSCOPY SCREENING [facility] Test 08:27:26 [code = COLONOSCOPY SCREENING] Future Scheduled 2021-04-15 SHINGLES VACCINES (#1) [facility] Test 08:27:26 [code = SHINGLES VACCINES (#1)] Future Scheduled 2021-04-15 COVID-19 VACCINE (2 - [facility] Test 08:27:26 Moderna risk 4-dose series) [code = COVID-19 VACCINE (2 - Moderna risk 4-dose series)] Future Scheduled 2021-04-15 INFLUENZA VACCINE Method [facility] Test 08:27:26 [code = INFLUENZA VACCINE] Future Scheduled COVID-19 VACCINE (1) Met [facility] Test [code = COVID-19 VACCINE (1)] Future Scheduled Hepatitis C screening [facility] Test (procedure) [code = 331735629] Future Scheduled COLONOSCOPY SCREENING [facility] Test [code = COLONOSCOPY SCREENING] Future Scheduled SHINGLES VACCINES (#1) [facility] Test [code = SHINGLES VACCINES (#1)] Future Scheduled INFLUENZA VACCINE [facility] Test [code = INFLUENZA VACCINE] Encounters Start End Encounter Admission Attending Care Care Encounter Source Date/Time Date/Time Type Type Clinicians Facility Department ID [address] [facility] [id number] [facility] 00:00:00 00:00:00 [id number] Medica l Group 2022-01-30 2022-01-30 Lab Ernie, 1.2.840.1 [id number] 2099 [id number] Methodi 07:00:00 07:05:00 Juan Dominguez [address]396.1.[address] 3.430.2.7 Hospit a .3.531700 l .8 2022-01-30 2022-01-30 Lab Ernie, 1.2.840.1 [id number] 2099 [id number] Methodi 07:00:00 07:05:00 Juan Dominguez 70077.1.[address] 3.430.2.7 Hospit a .3.913311 l .8 2022-01-30 2022-01-30 Lab Ernie, 1.2.840.1 [id number] 2100 [id number] Methodi 06:00:00 06:05:[address] 3.430.2.7 Hospit a .3.828750 l .8 2022-01-30 2022-01-30 Lab Ernie, 1.2.840.1 [id number] 2100 [id number] Methodi 06:00:00 06:05:[address] 3.430.2.7 Hospit a .3.839124 l .8 2022-01-30 2022-01-30 Travel 1.2.840.1 1.2.182.335 0395 [id number] Methodi 00:00:00 00:00:[address] 3.430.2.7 0.2.7.3.698 Ho spita .3.778107 084.8 l .8 2022-01-30 2022-01-30 Travel 1.2.840.1 1.2.103.708 2905 [id number] Methodi 00:00:00 00:00:[address] 3.430.2.7 0.2.7.3.698 Ho spita .3.927972 084.8 l .8 2021-09-05 2021-09-05 Lab Ernie, 1.2.840.1 [id number] Methodi 06:25:00 06:30:00 Juan Dominguez 61323.1.[address] 3.430.2.7 Hospit a .3.817837 l .8 2021-09-05 2021-09-05 Lab Ernie, 1.2.840.1 [id number] Methodi 06:25:00 06:30:00 Juan Dominguez 05850.1.[address] 3.430.2.7 Hospit a .3.605673 l .8 2021-09-05 2021-09-05 Travel 1.2.840.1 1.2.686.537 4688 [id number] Methodi 00:00:00 00:00:[address] 3.430.2.7 0.2.7.3.698 Ho spita .3.153116 084.8 l .8 2021-09-05 2021-09-05 Travel 1.2.840.1 1.2.694.573 8012 012512 Methodi 00:00:00 00:00:[address] 3.430.2.7 0.2.7.3.698 Ho spita .3.937627 084.8 l .8 2021-04-15 2021-04-15 Sol Klein, 1.2.840.1 [id number] 2099 [id number] Methodi 06:10:00 06:15:00 Juan Dominguez 19351.1.[address] 3.430.2.7 Hospit a .3.907888 l .8 2021-04-15 2021-04-15 Travel 1.2.840.1 1.2.566.687 9451 [id number] Methodi 00:00:00 00:00:[address] 3.430.2.7 0.2.7.3.698 Ho spita .3.092760 084.8 l .8 2021-03-18 2021-03-18 Lab Ernie, 1.2.840.1 [id number] Methodi 06:20:00 06:25:00 Juan Dominguez 64391.1.[address] 3.430.2.7 Hospit a .3.224718 l .8 2021-03-18 2021-03-18 Travel 1.2.840.1 1.2.711.880 9054 [id number] Methodi 00:00:00 00:00:[address] 3.430.2.7 0.2.7.3.698 Ho spita .3.434654 084.8 l .8 2021-03-11 2021-03-11 Lab Ernie, 1.2.840.1 [id number] 2099 [id number] Methodi 09:00:00 09:05:00 Juan Dominguez 54539.1.[address] 3.430.2.7 Hospit a .3.928220 l .8 2021-03-11 2021-03-11 Travel 1.2.840.1 1.2.710.141 8298 [id number] Methodi 00:00:00 00:00:[address] 3.430.2.7 0.2.7.3.698 Ho spita .3.182306 084.8 l .8 2021-02-28 2021-02-28 Lab Leanne, 1.2.840.1 [id number] 0678 Methodi 08:20:00 08:25:00 Micheal Covarrubias [address]1241.1.[address] 3.430.2.7 Hospit a .3.131327 l .8 2021-02-28 2021-02-28 Travel 1.2.840.1 1.2.179.838 9479 [id number] Methodi 00:00:00 00:00:[address] 3.430.2.7 0.2.7.3.698 Ho spita .3.377013 084.8 l .8 2021-02-25 2021-02-25 Travel 1.2.840.1 1.2.839.456 3163 [id number] Methodi 00:00:00 00:00:[address] 3.430.2.7 0.2.7.3.698 Ho spita .3.510809 084.8 l .8 2020-11-26 2020-11-26 Lab Ernie, 1.2.840.1 [id number] 2099 [id number] Methodi 08:48:26 08:53:[address] 3.430.2.7 Hospit a .3.075479 l .8 2020-11-26 2020-11-26 Travel 1.2.840.1 1.2.826.845 3875 [id number] Methodi 00:00:00 00:00:[address] 3.430.2.7 0.2.7.3.698 Ho spita .3.855289 084.8 l .8 2020-11-15 2020-11-15 Travel 1.2.840.1 1.2.186.214 5347 274356 Methodi 00:00:00 00:00:[address] 3.430.2.7 0.2.7.3.698 Ho spita .3.664405 084.8 l .8 2020-09-13 2020-09-13 Lab Ernie, 1.2.840.1 [id number] 2099 [id number] Methodi 10:07:34 10:12:[address] 3.430.2.7 Hospit a .3.451255 l .8 2020-09-13 2020-09-13 Travel 1.2.840.1 1.2.552.619 8477 [id number] Methodi 00:00:00 00:00:[address] 3.430.2.7 0.2.7.3.698 Ho spita .3.435436 084.8 l .8 2020-09-03 2020-09-03 Lab Ernie, 1.2.840.1 [id number] Methodi 07:58:11 08:03:11 Juan Dominguez 82843.1.[address] 3.430.2.7 Hospit a .3.381247 l .8 2020-09-03 2020-09-03 Travel 1.2.840.1 1.2.074.337 6936 [id number] Methodi 00:00:00 00:00:[address] 3.430.2.7 0.2.7.3.698 Ho spita .3.369782 084.8 l .8 2020-08-29 2020-08-29 Travel 1.2.840.1 1.2.572.098 7244 346028 Methodi 00:00:00 00:00:[address] 3.430.2.7 0.2.7.3.698 Ho spita .3.757158 084.8 l .8 2020-08-13 2020-08-13 Travel 1.2.840.1 1.2.298.840 9297 818680 Methodi 00:00:00 00:00:[address] 3.430.2.7 0.2.7.3.698 Ho spita .3.256405 084.8 l .8 2020-07-30 2020-07-30 Travel 1.2.840.1 1.2.331.393 6426 726271 Methodi 00:00:00 00:00:[address] 3.430.2.7 0.2.7.3.698 Ho spita .3.645966 084.8 l .8 2020-06-07 2020-06-07 Lab Leanne, 1.2.840.1 [id number] Methodi 07:23:50 07:28:50 Micheal Covarrubias [address]5480.1.[address] 3.430.2.7 Hospit a .3.844405 l .8 2020-06-06 2020-06-06 Travel 1.2.840.1 1.2.867.125 2340 398018 Methodi 00:00:00 00:00:[address] 3.430.2.7 0.2.7.3.698 Ho spita .3.449905 084.8 l .8 2020-03-18 2020-03-18 Telephone WINSTON Heard 1.2.292.046 0337 8754 [facility] 00:00:00 00:00:00 Gabriela TARIQ 350.1.13.10 [facility] 4.2.7.2.686 [place] [phone] [place] [address] [address] 2020-03-18 2020-03-18 Telephone Félix WINSTON 1.2.123.437 [id number] 00:00:00 00:00:00 Gabriela TARIQ 350.1.13.10 [facility] 4.2.7.2.686 [id number] [facility] 2020-03-16 2020-03-16 Laboratory Only, [facility] Test [facility] 1.2.840. 114 [id number] [facility] 15:00:29 15:15:29 Only Tay [facility] 350.1.13.10 [facility] 4.2.7.2.686 [facility] [id number] [facility] [address] 2020-03-16 2020-03-16 Laboratory Only, Ad[facility] 1.2.840.114 [id number] 15:00:29 15:15:29 Only Test [place] 350.1.13.10 [place] 4.2.7.2.686 [place] [id number] 353 2020-03-16 2020-03-16 Chani [facility], [facility] [id number] [id number] [facility] 15:15:00 15:15:00 TAY gant [facility] 2020-01-30 2020-01-30 Lab Ernie, 1.2.840.1 [id number] [id number] Methodi 04:42:28 04:47:28 Juan Covarrubias [address]38.1.[address] 3.430.2.7 Hospit a .3.150553 l .8 2020-01-30 2020-01-30 Travel 1.2.840.1 1.2.646.654 8223 [id number] Methodi 00:00:00 00:00:[address] 3.430.2.7 0.2.7.3.698 Ho spita .3.075056 084.8 l .8 2020-01-23 2020-01-23 Lab Ernie, 1.2.840.1 [id number] 2100 [id number] Methodi 04:55:00 05:00:00 Juan Covarrubias [address]49.1.[address] 3.430.2.7 Hospit a .3.741545 l .8 2020-01-23 2020-01-23 Travel 1.2.840.1 1.2.941.364 1353 145060 Methodi 00:00:00 00:00:[address] 3.430.2.7 0.2.7.3.698 Ho spita .[id number] 084.8 l .8 2020-01-09 2020-01-09 Lab Ernie, 1.2.840.1 [id number] Methodi 05:05:00 05:10:00 Juan Covarrubias [address]58.[address] 3.430.2.7 Hospit a .3.245655 l .8 2020-01-09 2020-01-09 Travel 1.2.840.1 1.2.938.617 [id number] Methodi 00:00:00 00:00:[address] 3.430.2.7 0.2.7.3.698 rafaelta .[id number] 084.8 l .8 2019-07-04 2019-07-04 Outpatient Usha FABIAN [facility] 902 [id number] [place] 00:00:00 00:00:[address] Results Test Description Test Time Test Comments Results Result Comments Source Creatinine level, urine, random 2022-01-30 15:44:00 Test Item Value Reference Range Interpretation Comme nts Creatinine, urine (mg/dL) (test code = 72318-3) 110 [facility] [id number] 15:44:00 Test Item Value Reference Range Interpretation Comments Protein, urine random (test code = 67 mg/dL 2888-6) [facility] [id number] 15:44:00 Test Item Value Reference Range Interpretation Comments Creatinine, urine (mg/dL) (test 110 mg/dL code = 37965-3) [facility], [id number] 15:44:00 Test Item Value Reference Range Interpretation Comments Protein, urine random (test code = 67 mg/dL 2888-6) [facility] microscopy, with reflex to culture 2022-01-30 15:43:00 Test Item Value Reference Range Interpretation Comments Specimen site (test Clean catch code = 9001002) Color, UA (test code = Yellow 5778-6) Appearance, UA (test Clear code = 5767-9) Specific gravity, UA 1.001-1.035 (test code = 5811-5) pH, UA (test code = 5.0-8.5 5803-2) Protein, UA (test code 2+ Negative A = 16807-5) Glucose, UA (test code 3+ Negative A = 63876-0) Ketones, UA (test code Negative Negative = 2514-8) Bilirubin, UA (test Negative Negative code = 5770-3) Blood, UA (test code = Small Negative A 5794-3) Nitrite, UA (test code Negative Negative = 5802-4) Urobilinogen, UA (test <2.0 See_Comment [Aut omated code = 93067-7) message] The system which generated this result transmitted reference range : <=2.0. The reference range was not used to interpret this result as normal/abnormal . Leukocyte esterase, UA Negative Negative (test code = 5799-2) WBC, UA (test code = None seen See_Comment [Autom ated 5821-4) message] The sy stem which generated this result transmitted reference range : 0 - 1 /HPF. The reference range was not used to interpret this result as normal/abnormal . RBC, UA (test code = <1 See_Comment [Autom ated 14106-8) message] The sy stem which generated this result transmitted reference range : 0 - 5 /HPF. The reference range was not used to interpret this result as normal/abnormal . Bacteria, UA (test code None seen None seen = 99900-9) Yeast, UA (test code = None seen 33870-9) Yeast with None seen pseudohyphae, UA (test code = 08641-7) Lab Interpretation Abnormal (test code = 97507-5) [facility], with reflex to culture 2022-01-30 15:43:00 Test Item Value Reference Range Interpretation Comments Specimen site (test Clean catch code = 5231752) Color, UA (test code = Yellow 5778-6) Appearance, UA (test Clear code = 5767-9) Specific gravity, UA 1.001-1.035 (test code = 5811-5) pH, UA (test code = 5.0-8.5 5803-2) Protein, UA (test code 2+ Negative A = 08733-2) Glucose, UA (test code 3+ Negative A = 66591-4) Ketones, UA (test code Negative Negative = 2514-8) Bilirubin, UA (test Negative Negative code = 5770-3) Blood, UA (test code = Small Negative A 5794-3) Nitrite, UA (test code Negative Negative = 5802-4) Urobilinogen, UA (test <2.0 See_Comment [Aut omated code = 23894-7) message] The system which generated this result transmitted reference range : <=2.0. The reference range was not used to interpret this result as normal/abnormal . Leukocyte esterase, UA Negative Negative (test code = 5799-2) WBC, UA (test code = None seen See_Comment [Autom ated 5821-4) message] The sy stem which generated this result transmitted reference range : 0 - 1 /HPF. The reference range was not used to interpret this result as normal/abnormal . RBC, UA (test code = <1 See_Comment [Autom ated 84845-3) message] The sy stem which generated this result transmitted reference range : 0 - 5 /HPF. The reference range was not used to interpret this result as normal/abnormal . Bacteria, UA (test code None seen None seen = 03169-9) Yeast, UA (test code = None seen 86574-8) Yeast with None seen pseudohyphae, UA (test code = 92747-9) Lab Interpretation Abnormal (test code = 83992-3) [facility] [id number] 15:35:00 Test Item Value Reference Range Interpretation Comments Urine culture (test SEE COMMENT Bacteriu deandre screen code = 4208520) negative. [facility] [id number] 15:35:00 Test Item Value Reference Range Interpretation Comments Urine culture (test SEE COMMENT Bacteriu deandre screen code = 6651749) negative. [facility], [facility], [id number] 17:11:47 Test Item Value Reference Range Interpretation Comments Creatinine, urine (mg/dL) (test 121 mg/dL code = 77253-7) [facility], [id number] 17:11:47 Test Item Value Reference Range Interpretation Comments Protein, urine random (test code = 161 mg/dL 2888-6) [facility] [id number] 15:53:04 Test Item Value Reference Range Interpretation Comments Urine culture (test SEE COMMENT Bacteriu deandre screen code = 9198103) negative. [facility] microscopy, with reflex to culture 2021-04-15 15:53:03 Test Item Value Reference Range Interpretation Comments Specimen site (test Clean catch code = 8703231) Color, UA (test code = Straw 5778-6) Appearance, UA (test Clear code = 5767-9) Specific gravity, UA 1.001-1.035 (test code = 5811-5) pH, UA (test code = 5.0-8.5 5803-2) Protein, UA (test code 2+ Negative A = 80051-8) Glucose, UA (test code 3+ Negative A = 46474-0) Ketones, UA (test code Negative Negative = 2514-8) Bilirubin, UA (test Negative Negative code = 5770-3) Blood, UA (test code = Moderate Negative A 5794-3) Nitrite, UA (test code Negative Negative = 5802-4) Urobilinogen, UA (test <2.0 <2.0 code = 37368-8) Leukocyte esterase, UA Negative Negative (test code = 5799-2) WBC, UA (test code = See_Comment [Autom ated 5821-4) message] The sy stem which generated this result transmitted reference range : 0 - 1 /HPF. The reference range was not used to interpret this result as normal/abnormal . RBC, UA (test code = See_Comment [Autom ated 72271-1) message] The sy stem which generated this result transmitted reference range : 0 - 5 /HPF. The reference range was not used to interpret this result as normal/abnormal . Bacteria, UA (test code None seen None seen = 15455-2) Yeast, UA (test code = None seen 14313-9) Yeast with None seen pseudohyphae, UA (test code = 91093-5) Lab Interpretation Abnormal (test code = 97475-5) [facility], [id number] 21:24:19 Test Item Value Reference Range Interpretation Comments Protein, urine random (test code = 484 mg/dL 2888-6) [facility], urine, [id number] 16:47:21 Test Item Value Reference Range Interpretation Comments Creatinine, urine, random (test 201 mg/dL code = 19750-5) [facility] microscopy, with reflex to culture 2020-11-26 15:18:17 Test Item Value Reference Range Interpretation Comments Specimen site (test Clean catch code = 6893289) Color, UA (test code = Yellow 5778-6) Appearance, UA (test Clear code = 5767-9) Specific gravity, UA 1.001-1.035 (test code = 5811-5) pH, UA (test code = 5.0-8.5 5803-2) Protein, UA (test code 3+ Negative A = 97421-6) Glucose, UA (test code 1+ Negative A = 20801-7) Ketones, UA (test code Negative Negative = 2514-8) Bilirubin, UA (test Negative Negative code = 5770-3) Blood, UA (test code = Moderate Negative A 5794-3) Nitrite, UA (test code Negative Negative = 5802-4) Urobilinogen, UA (test <2.0 <2.0 code = 32033-7) Leukocyte esterase, UA Negative Negative (test code = 5799-2) WBC, UA (test code = See_Comment [Autom ated 5821-4) message] The sy stem which generated this result transmitted reference range : 0 - 1 /HPF. The reference range was not used to interpret this result as normal/abnormal . RBC, UA (test code = See_Comment H [Autom ated 88580-8) message] The sy stem which generated this result transmitted reference range : 0 - 5 /HPF. The reference range was not used to interpret this result as normal/abnormal . Bacteria, UA (test code None seen None seen = 99055-3) Yeast, UA (test code = None seen 07812-5) Yeast with None seen pseudohyphae, UA (test code = 31833-8) Hyaline casts, UA (test See_Comment [Au tomated code = 5796-8) message] The system which generated this result transmitted reference range : /LPF. The refer ence range was not u sed to interpret th is result as normal/abnormal . Lab Interpretation Abnormal (test code = 76518-4) [facility] [id number] 14:41:27 Test Item Value Reference Range Interpretation Comments Urine culture (test SEE COMMENT Bacteriu deandre screen code = 4253640) negative. [facility])2019-09-17 04:32:00 Test Item Value Reference Range Interpretation Comments SARS-COV2/RT-PCR (test Not Detected Not Detected, Negative code = 0506776) [facility]COV-2 [facility] [place] ([place] code = 6510543) Negative results do not preclude SARS-CoV-2 infection [...] of the Act.Fact Sheet for Healthcare Pro viders:https://www.[employer].com.[employer]/Documents/Xpert%20Xpress%20SARS%20CoV-2/Fact%20Sh eets/3023802%75ZGVL-MYR-2%20HEALTHCARE%20PROVIDERS%20FACT%20SHEET.pdfFact Sheet for Healthcare Patients:https://www.[employer]Documents/Xpert%20Xpress%20SARS%20CoV-2/Fact%20Sheets/3023801%20SARS-COV -2%20PATIENT%20FACT%20SHEET.pdfPerforming Laboratory:[facility] [place] [address]
[2022-04-23] MEDS ORDERED: CLINDAMYCIN 900MG/D5W 900 MG/50 ML IVPB IV ONE (02:04)
[2022-04-23] MEDS ORDERED: MORPHINE 4 MG/ML SYR ONE (02:04)
[2022-04-23 02:10] LABS: Absolute Lymphocytes (CBC) 0.9 K/uL (0.7-4.9); Hematocrit 40.9 % (39.6-49.0); Lymphocytes % 9.3 % (15.3-44.8); MCV 98.3 fL (80-100); MPV 7.6 fL (7.6-11.3); RBC Red Blood Cell Count 4.16 M/uL (4.33-5.43)
[2022-04-23 02:17] LABS: Potassium 3.7 mmol/L (3.5-5.1)
--- NOTE | 2022-04-23 04:49 | EDPHYS ---
Physician Documentation [facility] Name: Shoaib Freitas Jr Age: 57 yrs Sex: Male : 1965 Arrival Date: 04/22/2022 Time: 23:40 Bed 17 Private MD: ED Physician Lencho Amanda HPI: 04/23 00:45 This 57 yrs old Black Male presents to ER via Ambulatory with complaints of Facial cp Swelling. 00:45 The patient presents with pain, right side facial swelling. The problem is located in cp the right upper jaw. 00:45 Onset: The symptoms/episode began/occurred yesterday. Duration: The symptoms are cp continuous, and are steadily getting worse. 00:45 Associated signs and symptoms: Pertinent positives: right upper jaw pain, Pertinent cp negatives: chills, fever, inability to eat, vomiting. Severity of symptoms: in the emergency department the symptoms are unchanged, despite home interventions. The patient has been recently seen by a physician: a dentist, yesterday, with similar presenting complaints, was given a prescription for antibiotics, Amoxicillin. Historical: - Allergies: 01:41 No Known Allergies; vc1 - PMHx: 01:41 Gall Stones; history of dialysis; Hypertension; kidney transplant; Pancreatitis; vc1 Diabetes mellitus; - PSHx: 01:41 kidney transplant; vc1 - Immunization history:: Client reports receiving the 2nd dose of the Covid vaccine. - Social history:: Smoking status: Patient reports the use of cigarette tobacco products, cigars. ROS: 00:50 Constitutional: Negative for body aches, chills, fever, poor PO intake. cp 00:50 Eyes: Negative for injury, pain, redness, and discharge. cp 00:50 ENT: Positive for dental pain, Teeth pain Negative for drainage from ear(s), ear pain, sore throat, difficulty swallowing, difficulty handling secretions. 00:50 Cardiovascular: Negative for chest pain, edema, palpitations. 00:50 Respiratory: Negative for cough, shortness of breath, wheezing. 00:50 Abdomen/GI: Negative for abdominal pain, nausea, vomiting, and diarrhea. 00:50 Skin: Positive for swelling, of the right facial cheek. 00:50 Neuro: Negative for altered mental status, dizziness, headache, weakness. 00:50 All other systems are negative. Exam: 00:55 Constitutional: The patient appears in no acute distress, alert, awake, non-toxic, well cp developed, well nourished, uncomfortable. 00:55 Head/face: Noted is swelling, that is moderate, of the right cheek and below right eye.cp 00:55 Eyes: Pupils: equal, round, and reactive to light and accomodation, Extraocular movements: intact throughout, Conjunctiva: normal, no exudate, no injection, Sclera: no appreciated abnormality, Lids and lashes: appear normal, bilaterally. 00:55 ENT: External ear(s): are unremarkable, Nose: is normal, Mouth: Lips: moist, Oral mucosa: moist, Posterior pharynx: Airway: no evidence of obstruction, patent, erythema, is not appreciated, exudate, is not appreciated, Dental exam: abscess, is not appreciated, dental caries, that is severe, diffusely, gum swelling, that is moderate, specifically in the right upper jaw, pain, that is moderate, specifically in the upper right second molar (#2), upper right first molar (#3) and upper right second bicuspid (#4), Voice: is normal. 00:55 Neck: ROM/movement: is normal, is supple, without pain, no range of motions limitations, no nuchal rigidity. 00:55 Chest/axilla: Inspection: normal. 00:55 Cardiovascular: Rate: normal, Rhythm: regular. 00:55 Respiratory: the patient does not display signs of respiratory distress, Respirations: normal, no use of accessory muscles, no retractions, labored breathing, is not present, Breath sounds: are clear throughout, no decreased breath sounds, no stridor, no wheezing. 00:55 Abdomen/GI: Exam negative for discomfort, distension, guarding, Inspection: abdomen appears normal. 03:00 ECG was reviewed by the Attending Physician. cp Vital Signs: 00:40 BP 135 / 80; Pulse 87; Resp 18; Temp 97.9; Pulse Ox 95% ; Weight 104.33 kg; Height 5 vc1 ft. 11 in. (180.34 cm); Pain 5/10; 02:45 BP 119 / 77; Pulse 84; Resp 17; Pulse Ox 97% ; Pain 2/10; jj7 03:45 BP 121 / 76; Pulse 81; Resp 16; Pulse Ox 96% ; Pain 0/10; jj7 04:45 BP 120 / 82; Pulse 76; Resp 17; Pulse Ox 98% ; Pain 0/10; jj7 00:40 Body Mass Index 32.08 (104.33 kg, 180.34 cm) vc1 MDM: 00:25 Patient medically screened. cp 04/23 00:35 Order name: Basic Metabolic Panel; Complete Time: 02:41 cp 04/23 02:41 Interpretation: Normal except: BUN 21; CRE 1.87; GFR 42. cp 04/23 00:35 Order name: CBC with Diff; Complete Time: 02:41 cp 04/23 02:41 Interpretation: Normal except: RBC 4.16; MCH 38.2; MCHC 38.9; VIVIAN% 83.8; LYM% 9.3; NEUT cp A 8.5. 04/23 00:35 Order name: Magnesium; Complete Time: 02:41 cp 04/23 00:35 Order name: Lactate w/ 2H reflex if indic.; Complete Time: 02:41 04/23 00:35 Order name: Blood Culture Adult (2) cp 04/23 00:35 Order name: EKG; Complete Time: 00:35 cp 04/23 00:35 Order name: Cardiac monitoring; Complete Time: 03:01 04/23 00:35 Order name: EKG - Nurse/Tech; Complete Time: 03:01 04/23 00:35 Order name: IV Saline Lock; Complete Time: 03:01 04/23 02:43 Order name: CT Facial Bones W/O Con cp 04/23 00:35 Order name: Labs collected and sent; Complete Time: 03:01 04/23 00:35 Order name: O2 Per Protocol; Complete Time: 03:02 04/23 00:35 Order name: O2 Sat Monitoring; Complete Time: 03:02 EC:00 Rate is 84 beats/min. Rhythm is regular. IA interval is normal. QRS interval is normal. cp QT interval is normal. T waves are Inverted in lead aVR. Interpreted by me. Reviewed by me. Administered Medications: 02:05 Drug: Clindamycin 900 mg Route: IVPB; Infused Over: 30 mins; Site: right upper arm; jj7 02:37 Follow up: IV Status: Completed infusion j7 02:05 Drug: morphine 4 mg Route: IVP; Infused Over: 4 mins; Site: right upper arm; jj7 02:15 Follow up: Response: Pain is decreased jj7 04:59 Drug: Zofran (Ondansetron) 4 mg Route: IVP; Site: right upper arm; jj7 05:03 Follow up: Response: No adverse reaction 7 Disposition: 04:49 Co-signature as Attending Physician, Vidal SALOMON I reviewed the patient's care rt provided by Advanced Practice Provider \T\ agree w/ the diagnosis \T\ care plan. I personally saw the pt \T\ performed a substantive portion of the visit, incldng all aspects of the (History/Exam/Medical Decision Making). I waited the patient, patient has cellulitis, extensive soft tissue swelling seen on CT scan, no drainable abscess, no signs of sepsis, Cecilia's angina. Will start patient on clindamycin, patient to follow-up with a dentist as an outpatient.. Disposition Summary: 04/23/22 04:48 Discharge Ordered Location: Home rt Problem: an ongoing problem rt Symptoms: are unchanged rt Condition: Stable rt Diagnosis - Facial cellulitis rt Followup: rt - With: Private Physician - When: 2 - 3 days - Reason: Discharge Instructions: - Discharge Summary Sheet rt - Dental Caries, Adult rt Forms: - Medication Reconciliation Form rt - Thank You Letter rt - Work release form jj7 - Antibiotic Education rt - Prescription Opioid Use rt Prescriptions: - Clindamycin HCl 300 mg Oral Capsule - take 1 capsule by ORAL route every 6 hours for 10 days; 40 capsule; Refills: 0, rt Product Selection Permitted Signatures: Dispatcher [employer] EDMS Vidal Dejesus PA PA cp Calcote, Vanessa RN RN vc1 Bernadette Posey RN RN jj7 Lencho Amanda MD MD rt
--- NOTE | 2022-04-23 04:49 | ER ---
Nurse's Notes [facility] Name: Shoaib Freitas Jr Age: 57 yrs Sex: Male : 1965 Arrival Date: 04/22/2022 Time: 23:40 Bed 17 Private MD: Diagnosis: Facial cellulitis Presentation: 04/23 00:40 Chief complaint: Patient states: "I went to the dentist with a toothache and he started vc1 me on antibiotics, now my face is really swollen.". Coronavirus screen: Vaccine status: Patient reports receiving the 2nd dose of the covid vaccine. Moderna. Ebola Screen: No symptoms or risks identified at this time. Initial Sepsis Screen: Does the patient meet any 2 criteria? No. Patient's initial sepsis screen is negative. Does the patient have a suspected source of infection? No. Patient's initial sepsis screen is negative. Risk Assessment: Do you want to hurt yourself or someone else? Patient reports no desire to harm self or others. Onset of symptoms was April 22, 2022. 00:40 Method Of Arrival: Ambulatory vc1 00:40 Acuity: COBY 3 vc1 Triage Assessment: 01:42 General: Appears in no apparent distress. uncomfortable, Behavior is calm, cooperative, vc1 appropriate for age. Pain: Complains of pain in right side of face Pain currently is 5 out of 10 on a pain scale. EENT: Eyes swollen. Neuro: Level of Consciousness is awake, alert, obeys commands, Oriented to person, place, time, situation, Appropriate for age. Cardiovascular: No deficits noted. Respiratory: Airway is patent Respiratory effort is even, unlabored, Respiratory pattern is regular, symmetrical. GI: No deficits noted. No signs and/or symptoms were reported involving the gastrointestinal system. : No deficits noted. No signs and/or symptoms were reported regarding the genitourinary system. Derm: swelling to right side of face. Historical: - Allergies: :41 No Known Allergies; vc1 - PMHx: :41 Gall Stones; history of dialysis; Hypertension; kidney transplant; Pancreatitis; vc1 Diabetes mellitus; - PSHx: 01:41 kidney transplant; vc1 - Immunization history:: Client reports receiving the 2nd dose of the Covid vaccine. - Social history:: Smoking status: Patient reports the use of cigarette tobacco products, cigars. Screenin:42 [facility] ED Fall Risk Assessment (Adult) History of falling in the last 3 months, vc1 including since admission No falls in past 3 months (0 pts) Confusion or Disorientation No (0 pts) Intoxicated or Sedated No (0 pts) Impaired Gait No (0 pts) Mobility Assist Device Used No (0 pt) Altered Elimination No (0 pt) Score/Fall Risk Level 0 - 2 = Low Risk Oriented to surroundings, Maintained a safe environment, Educated pt \\T\\ family on fall prevention, incl call for assistance when getting out of bed. Abuse screen: Denies threats or abuse. Nutritional screening: No deficits noted. Tuberculosis screening: No symptoms or risk factors identified. Assessment: 01:50 General: Appears in no apparent distress. uncomfortable, Behavior is calm, cooperative, jj7 appropriate for age. EENT: Reports pain in right cheek and right jaw RIGHT SIDED DENTAL PAIN AND FACIAL SWELLING DUE TO DENTAL PAIN. Vital Signs: 00:40 BP 135 / 80; Pulse 87; Resp 18; Temp 97.9; Pulse Ox 95% ; Weight 104.33 kg; Height 5 vc1 ft. 11 in. (180.34 cm); Pain 5/10; 02:45 BP 119 / 77; Pulse 84; Resp 17; Pulse Ox 97% ; Pain 2/10; jj7 03:45 BP 121 / 76; Pulse 81; Resp 16; Pulse Ox 96% ; Pain 0/10; jj7 04:45 BP 120 / 82; Pulse 76; Resp 17; Pulse Ox 98% ; Pain 0/10; jj7 00:40 Body Mass Index 32.08 (104.33 kg, 180.34 cm) vc1 ED Course: 04/22 23:40 Patient arrived in ED. ja2 04/23 00:18 Vidal Dejesus PA is PHCP. cp 00:19 Lencho Amanda MD is Attending Physician. cp 00:37 Bernadette Posey RN is Primary Nurse. jj7 00:42 Triage completed. vc1 01:45 Arm band placed on right wrist. vc1 01:49 Initial lab(s) drawn, by me, sent to lab. Accessed peripheral vein via ultrasound, bb utilizing dynamic ultrasound technique Powerglide midline 20g 10cm to right upper arm using hospital protocol with good blood return and flushes easily pt tolerated well. 01:50 Patient has correct armband on for positive identification. Placed in gown. Bed in low jj7 position. Call light in reach. Side rails up X2. Adult w/ patient. 03:36 CT Facial Bones W/O Con In Process Unspecified. EDMS 05:03 IV discontinued, intact, bleeding controlled, No redness/swelling at site. Pressure jj7 dressing applied. 05:03 No provider procedures requiring assistance completed. jj7 Administered Medications: 02:05 Drug: Clindamycin 900 mg Route: IVPB; Infused Over: 30 mins; Site: right upper arm; jj7 02:37 Follow up: IV Status: Completed infusion jj7 02:05 Drug: morphine 4 mg Route: IVP; Infused Over: 4 mins; Site: right upper arm; jj7 02:15 Follow up: Response: Pain is decreased jj7 04:59 Drug: Zofran (Ondansetron) 4 mg Route: IVP; Site: right upper arm; jj7 05:03 Follow up: Response: No adverse reaction jj7 Medication: 01:50 VIS not applicable for this client. jj7 Outcome: 04:48 Discharge ordered by . rt 05:03 Discharged to home ambulatory. jj7 05:03 Condition: improved 05:03 Discharge instructions given to patient, Instructed on discharge instructions, follow up and referral plans. medication usage, Demonstrated understanding of instructions, follow-up care, medications, Prescriptions given X 1. 05:05 Patient left the ED. jj7 Signatures: Dispatcher [employer] EDMS Shikha Young RN RN Vidal Geuvara PA PA cp Alexander, Jessica ja2 Calcote, Vanessa, RN RN vc1 Bernadette Posey RN RN jj7 Lencho Amanda MD MD rt Corrections: (The following items were deleted from the chart) 01:58 00:40 BP 135 / 80; Pulse 87bpm; Resp 18bpm; Pulse Ox 95%; 104.33 kg; Height 5 ft. 11 vc1 in.; BMI: 32.0; Pain 5/10; vc1
[2022-04-23] MEDS ORDERED: ONDANSETRON 4 MG/2 ML VIAL ONE (04:54)
[2022-04-23 05:10] VITALS: TEMP 97.9
[2022-04-23 05:14] VITALS: BP 120/82; O2SAT 98
--- NOTE | 2022-04-23 13:25 | RAD REPORT ---
EXAM DESCRIPTION: CT Maxillofacial Without Intravenous Contrast CLINICAL HISTORY: The patient is 57 years old and is Male; right side facial swelling, right upper t eeth pain TECHNIQUE: Axial computed tomography images of the face without intravenous contrast. Sagittal and coronal reformatted images were created and reviewed. This CT exam was performed using one or more of the following dose reduction techniques: automated exposure control, adjustment of the mA and/o r kV according to patient size, and/or use of iterative reconstruction technique. COMPARISON: No relevant prior studies available. FINDINGS: BONES/JOINTS: The bones of the face are intact. There is no acute fracture. SOFT TISSUES: Right periorbital and facial soft tissue swelling is present. ORBITS: Unremarkable. SINUSES: Mucoperiosteal thickening of the right maxillary sinus is present. DENTAL: There is poor dentition with innumerable dental caries and periapical lucencies involvin g the mandibular maxillary teeth. IMPRESSION: 1. Right periorbital and facial soft tissue swelling without underlying acute fracture . 2. Extensive poor dentition. Electronically signed by: Mila Sumner MD 04/23/2022 4:14 AM MARKETING PROPOSAL COORDINATOR Due to temporary technical issues with the PACS/Fluency reporting system, reports are being signed by the in house radiologists without review as a courtesy to insure prompt reporting. The interpreting radiologist is fully responsible for the content of the report.
--- NOTE | 2022-04-23 14:52 | EKG ---
Test Date: 2022-04-23 Test Time: 02:53:44 Immigration Officer: MEASUREMENT RESULTS: Intervals: Rate: 84 WA: 152 QRSD: 96 QT: 380 QTc: 449 [place]: P: 25 WA: 152 QRS: -4 T: 30 INTERPRETIVE STATEMENTS: Sinus rhythm with occasional premature ventricular complexes Otherwise normal ECG Compared to ECG 09/22/2021 17:45:02 Ventricular premature complex(es) now present Myocardial infarct finding no longer present Electronically Signed On 04-23-22 14:51:28 MEASURING MACHINE TENDER by Sumit Arroyo
== END 2022-04-23 05:05 | disposition home or self-care (01) ==
LOC: ER 23:37
DX: L03.211 Cellulitis of face (principal); I10 Essential (primary) hypertension; Z72.0 Tobacco use; Z94.0 Kidney transplant status
CPT/HCPCS: 93005; 87040 ×2; 85025; 80048; 36415; 83735; 83605; 70486; 76377; J2405

== ENCOUNTER 2022-06-20 08:24 | Emergency (ER) | payer MEDICARE ==
--- OUTSIDE RECORDS SUMMARY | 2022-06-20 08:29 | XMS REPORT | Continuity of Care Document ---
:1965 Author Organization [facility] t Address [address] [place] [address] Care Team Providers Name Role Phone Peter ALVAREZ, Terrence Gerardo Primary Care Physician [phone] Juan Klein MD Attending Clinician Micheal Perdomo MD Attending Clinician Félix SÁNCHEZ, Gabriela Magdaleno Attending Clinician Unavailable Only, Adc Test Attending Clinician Unavailable Tay Hsu MD Attending Clinician TAY HSU Attending Clinician Unavailable Usha FABIAN Attending Clinician Unavailable Payers Payer Name Policy Type Policy Number Effective Date Expiration Date [facility] [id number] 2022 (MEDICARE 00:00:00 REPLACEMENT HMO) Problems [...] Date Date Clinician NO KNOWN Drug Active [facility] ALLERGIE Class it[facility] of [facility] Family History Family Member Diagnosis Comments Start Date Stop Date Source Natural father Hypertension [facility] Natural mother Heart disease [facility] Natural mother Hypertension [facility] Natural sister Diabetes [facility] Social History Social Habit Start Date Stop Date Quantity Comments Source History of Current smoker [facility] use [facility] Exposure to Not sure [facility]2 [facility] (event) Alcohol intake 2018-01-18 2018-01-18 Current [facility] 00:00:00 00:00:00 non-drinker of Hospital alcohol (finding) Tobacco use and 2018-01-15 2018-01-15 Smokeless tobacco [facility] exposure 00:00:00 00:00:00 non-user Hospital Tobacco Comment 2018-01-15 2018-01-15 "Quit 2-3 months [facility] 00:[facility] 00:00:00 ago" Hospital Sex Assigned At [birth year] [facility] 00:00:00 00:00:00 Hospital Smoking Status Start Date Stop Date Source Unknown if ever smoked [facility] Ex-smoker 2018-01-15 00:00:00 2018-01-15 00:00:00 [facility] Current some 2016-03-26 00:00:00 [facility] smoker Center Medications Ordered Filled Start [...] Date / Time Performing Clinician Source Performed MAGNESIUM LEVEL 2022-06-05 15:44:00 [facility] CBC WITH PLATELET AND 2022-06-05 15:44:00 [facility] DIFFERENTIAL COMPREHENSIVE METABOLIC 2022-06-05 15:44:[address] [facility] PANEL PROTEIN, URINE, RANDOM 2022-06-05 15:44:00 [facility] CREATININE LEVEL, URINE, 2022-06-05 15:44:00 Carole [facility] RANDOM PHOSPHORUS LEVEL 2022-06-05 15:44:00 [facility] URINALYSIS, AUTOMATED 2022-06-05 15:44:00 [facility] WITH MICROSCOPY LDH 2022-06-05 15:44:00 [facility] PARATHYROID HORMONE 2022-06-05 15:44[facility]00 [facility] 25 HYDROXY 2022-06-05 15:44:00 [facility] LEVEL LIPID PANEL 2022-06-05 15:44:00 [facility] CYCLOSPORINE LEVEL, 2022-06-05 15:44:00 [facility] TROUGH ESTIMATED GFR 2022-06-05 15:44:00 [facility] URINE CULTURE 2022-01-30 14:44:00 Carole [facility] CBC WITH PLATELET AND 2022-01-30 14:44:00 [facility] DIFFERENTIAL MAGNESIUM LEVEL 2022-01-30 14:44:00 [facility] PHOSPHORUS LEVEL 2022-01-30 14:44:00 [facility] URIC ACID LEVEL 2022-01-30 14:44:00 [facility] LDH 2022-01-30 14:44:00 [facility] URINALYSIS SCREEN AND 2022-01-30 14:44:00 [facility] MICROSCOPY, WITH REFLEX TO CULTURE PROTEIN, URINE, RANDOM 2022-01-30 14:44:00 [facility] CREATININE LEVEL, URINE, 2022-01-30 14:44:00 [facility] RANDOM COMPREHENSIVE METABOLIC 2022-01-30 14:44:00 [facility] PANEL CYCLOSPORINE LEVEL, 2022-01-30 14:44:00 [facility] RANDOM ESTIMATED GFR 2022-01-30 14:44:00 [facility] URINE CULTURE 2021-09-05 14:13:00 [facility] CBC WITH PLATELET AND 2021-09-05 14:13:00 [facility] DIFFERENTIAL MAGNESIUM LEVEL 2021-09-05 14:13:00 [facility] PHOSPHORUS LEVEL 2021-09-05 14:13:00 [facility] URIC ACID LEVEL 2021-09-05 14:13:00 [facility] LDH 2021-09-05 14:13:00 [facility] URINALYSIS SCREEN AND 2021-09-05 14:13:00 [facility] MICROSCOPY, WITH REFLEX TO CULTURE PROTEIN, URINE, RANDOM 2021-09-05 14:13:00 [facility] CREATININE LEVEL, URINE, 2021-09-05 14:13:00 [facility] RANDOM COMPREHENSIVE METABOLIC 2021-09-05 14:13:00 [facility] PANEL CYCLOSPORINE LEVEL, 2021-09-05 14:13:00 [facility] RANDOM ESTIMATED GFR 2021-09-05 14:13:00 [facility] URINE CULTURE 2021-04-15 14:00:00 [facility] HC COMPLETE BLD COUNT 2021-04-15 14:00:00 [facility] W/AUTO DIFF MAGNESIUM LEVEL 2021-04-15 14:00:00 [facility] PHOSPHORUS LEVEL 2021-04-15 14:00:00 [facility] URIC ACID LEVEL 2021-04-15 14:00:00 [facility] LDH 2021-04-15 14:00:00 [facility] URINALYSIS SCREEN AND 2021-04-15 14:00:00 [facility] MICROSCOPY, WITH REFLEX TO CULTURE PROTEIN, URINE, RANDOM 2021-04-15 14:00:00 [facility] CREATININE LEVEL, URINE, 2021-04-15 14:00:00 [facility] RANDOM CYCLOSPORINE LEVEL, 2021-04-15 14:00:00 Juan Klein [facility] RANDOM COMPREHENSIVE METABOLIC 2021-04-15 14:00:[address] [facility] PANEL ESTIMATED GFR 2021-04-15 14:00:00 [facility] URINE CULTURE 2021-03-18 14:23:00 [facility] HC COMPLETE BLD COUNT 2021-03-18 14:23:00 [facility] W/AUTO DIFF MAGNESIUM LEVEL 2021-03-18 14:23:00 [facility] PHOSPHORUS LEVEL 2021-03-18 14:23:00 [facility] URIC ACID LEVEL 2021-03-18 14:23:00 Juan [facility] LDH 2021-03-18 14:23:00 [facility] CREATININE LEVEL, URINE, 2021-03-18 14:23:00 [facility] RANDOM URINALYSIS SCREEN AND 2021-03-18 14:23:00 [facility] MICROSCOPY, WITH REFLEX TO CULTURE PROTEIN, URINE, RANDOM 2021-03-18 14:23:00 [facility] COMPREHENSIVE METABOLIC 2021-03-18 14:23:00 [facility] PANEL CYCLOSPORINE LEVEL, 2021-03-18 14:23:00 [facility] RANDOM ESTIMATED GFR 2021-03-18 14:23:00 [place] [facility] HC COMPLETE BLD COUNT 2021-03-11 15:30:00 [facility] W/AUTO DIFF MAGNESIUM LEVEL 2021-03-11 15:30:00 [facility] PHOSPHORUS LEVEL 2021-03-11 15:30:00 [facility] URIC ACID LEVEL 2021-03-11 15:30:00 Juan [facility] LDH 2021-03-11 15:30:00 [facility] COMPREHENSIVE METABOLIC 2021-03-11 15:30:[address] [facility] PANEL CYCLOSPORINE LEVEL, 2021-03-11 15:30:00 Carole [facility] RANDOM ESTIMATED GFR 2021-03-11 15:30:00 [place] [facility] URINE CULTURE 2021-03-11 15:15:00 [facility] URINALYSIS SCREEN AND 2021-03-11 15:15:00 [facility] MICROSCOPY, WITH REFLEX TO CULTURE PROTEIN, URINE, RANDOM 2021-03-11 15:15:00 [facility] CREATININE LEVEL, URINE, 2021-03-11 15:15:00 [facility] RANDOM URINE CULTURE 2021-02-28 15:08:00 [facility] HC COMPLETE BLD COUNT 2021-02-28 15:08:00 [facility] W/AUTO DIFF MAGNESIUM LEVEL 2021-02-28 15:08:00 [facility] PHOSPHORUS LEVEL 2021-02-28 15:08:00 [facility] URIC ACID LEVEL 2021-02-28 15:08:00 [facility] LDH 2021-02-28 15:08:00 [facility] URINALYSIS SCREEN AND 2021-02-28 15:08:00 [facility] MICROSCOPY, WITH REFLEX TO CULTURE PROTEIN, URINE, RANDOM 2021-02-28 15:08:[address] [facility] CREATININE LEVEL, URINE, 2021-02-28 15:08:00 Leanne, [facility] RANDOM COMPREHENSIVE METABOLIC 2021-02-28 15:08:00 [facility] PANEL [id number] TACROLIMUS LEVEL, 2021-02-28 15:08:00 [facility] RANDOM CYCLOSPORINE LEVEL, 2021-02-28 15:08:00 [facility] RANDOM ESTIMATED GFR 2021-02-28 15:08:00 [facility] URINE CULTURE 2020-11-26 14:11:00 [facility] HC COMPLETE BLD COUNT 2020-11-26 14:11:00 [facility] W/AUTO DIFF MAGNESIUM LEVEL 2020-11-26 14:11:00 [facility] PHOSPHORUS LEVEL 2020-11-26 14:11:00 [facility] URIC ACID LEVEL 2020-11-26 14:11:00 [facility] LDH 2020-11-26 14:11:00 [facility] URINALYSIS SCREEN AND 2020-11-26 14:11:00 [facility] MICROSCOPY, WITH REFLEX TO CULTURE CREATININE LEVEL, URINE, 2020-11-26 14:11:00 [facility] RANDOM PROTEIN, URINE, RANDOM 2020-11-26 14:11:00 [facility] CYCLOSPORINE LEVEL, 2020-11-26 14:11:00 [facility] RANDOM PARATHYROID HORMONE 2020-11-26 14:11:00 [facility] VITAMIN D 25 HYDROXY 2020-11-26 14:11:00 [facility] LEVEL COMPREHENSIVE METABOLIC 2020-11-26 14:11:[address] [facility] PANEL ESTIMATED GFR 2020-11-26 14:11:00 [facility] URINE CULTURE 2020-09-13 15:29:00 [facility] HC COMPLETE BLD COUNT 2020-09-13 15:29:00 [facility] W/AUTO DIFF MAGNESIUM LEVEL 2020-09-13 15:29:00 Juan [facility] PHOSPHORUS LEVEL 2020-09-13 15:29:00 Carole [facility] URIC ACID LEVEL 2020-09-13 15:29:00 Juan [facility] LDH 2020-09-13 15:29:00 [facility] URINALYSIS SCREEN AND 2020-09-13 15:29[facility] WITH REFLEX TO CULTURE CREATININE LEVEL, URINE, 2020-09-13 15:29:00 [facility] RANDOM PROTEIN, URINE, RANDOM 2020-09-13 15:29:00 Carole [facility] COMPREHENSIVE METABOLIC 2020-09-13 15:29:00 [facility] PANEL CYCLOSPORINE LEVEL, 2020-09-13 15:29:00 Juan Klein [facility] RANDOM PARATHYROID HORMONE 2020-09-13 15:29:00 Juan Klein [facility] VITAMIN D 25 HYDROXY 2020-09-13 15:29:00 Juan Klein [facility] LEVEL ESTIMATED GFR 2020-09-13 15:29:00 [facility] SMEAR REVIEW 2020-09-13 15:29:00 [facility] URINE CULTURE 2020-09-03 13:21:00 [facility] HC COMPLETE BLD COUNT 2020-09-03 13:21:00 Carole [facility] W/AUTO DIFF MAGNESIUM LEVEL 2020-09-03 13:21:00 [facility] PHOSPHORUS LEVEL 2020-09-03 13:21:00 [facility] URIC ACID LEVEL 2020-09-03 13:21:00 [facility] LDH 2020-09-03 13:21:00 [facility] URINALYSIS SCREEN AND 2020-09-03 13:21:00 [facility] MICROSCOPY, WITH REFLEX TO CULTURE CREATININE LEVEL, URINE, 2020-09-03 13:21:00 [facility] RANDOM PROTEIN, URINE, RANDOM 2020-09-03 13:21:00 [facility] COMPREHENSIVE METABOLIC 2020-09-03 13:21:00 [facility] PANEL CYCLOSPORINE LEVEL, 2020-09-03 13:21:00 [facility] RANDOM PARATHYROID HORMONE 2020-09-03 13:21:00 [facility] VITAMIN D 25 HYDROXY 2020-09-03 13:21:00 [facility] LEVEL ESTIMATED GFR 2020-09-03 13:21:00 [facility] URINE CULTURE 2020-06-06 15:13:00 [facility] COMPREHENSIVE METABOLIC 2020-06-06 15:13:00 [facility] PANEL HC COMPLETE BLD COUNT 2020-06-06 15:13:00 [facility] W/AUTO DIFF MAGNESIUM LEVEL 2020-06-06 15:13:00 [facility] PHOSPHORUS LEVEL 2020-06-06 15:13:00 [facility] URIC ACID LEVEL 2020-06-06 15:13:00 [facility] LDH 2020-06-06 15:13:00 [facility] URINALYSIS SCREEN AND 2020-06-06 15:13:00 [facility] MICROSCOPY, WITH REFLEX TO CULTURE CREATININE LEVEL, URINE, 2020-06-06 15:13:00 [facility] RANDOM CYCLOSPORINE LEVEL, 2020-06-06 15:13:00 [facility] RANDOM PROTEIN, URINE, RANDOM 2020-06-06 15:13:00 [facility] 2020-06-06 15:13:00 LeanneMicheal power [facility] URINE CULTURE 2020-01-30 12:52:00 [place] [facility] COMPREHENSIVE METABOLIC 2020-01-30 12:52:00 Juan Klein [facility] PANEL HC COMPLETE BLD COUNT 2020-01-30 12:52:00 CaroleJuan [facility] W/AUTO DIFF MAGNESIUM LEVEL 2020-01-30 12:52:00 [facility] PHOSPHORUS LEVEL 2020-01-30 12:52:00 [place] [facility] URIC ACID LEVEL 2020-01-30 12:52:00 [place] [facility] LDH 2020-01-30 12:52:00 [place] [facility] URINALYSIS SCREEN AND 2020-01-30 12:52:00 [place] [facility] MICROSCOPY, WITH REFLEX TO CULTURE CREATININE LEVEL, URINE, 2020-01-30 12:52:00 [place]Juan [facility] RANDOM PROTEIN, URINE, RANDOM 2020-01-30 12:52:00 Juan Klein [facility] CYCLOSPORINE LEVEL, 2020-01-30 12:52:00 CaroleJuan [facility] RANDOM ESTIMATED GFR 2020-01-30 12:52:00 [place] [facility] Plan of Care Planned Activity Planned Date Details Comments Source Future Scheduled 2022-06-18 COLONOSCOPY SCREENING [facility] Test 14:06:44 [code = COLONOSCOPY SCREENING] Future Scheduled 2022-06-18 SHINGLES VACCINES (1 [facility] Test 14:06:44 of 2) [code = SHINGLES VACCINES (1 of 2)] Future Scheduled 2022-06-18 COVID-19 VACCINE (2 - [facility] Test 14:06:44 Moderna series) [code = COVID-19 VACCINE (2 - Moderna series)] Future Scheduled 2022-06-18 INFLUENZA VACCINE Method [facility] Test 14:06:44 [code = INFLUENZA VACCINE] Future Scheduled 2022-03-26 COLONOSCOPY SCREENING [facility] Test 23:31:27 [code = COLONOSCOPY SCREENING] Future Scheduled 2022-03-26 SHINGLES VACCINES (1 Met [facility] Test 23:31:27 of 2) [code = SHINGLES VACCINES (1 of 2)] Future Scheduled 2022-03-26 COVID-19 VACCINE (2 - [facility] Test 23:31:27 Moderna series) [code = COVID-19 VACCINE (2 - Moderna series)] Future Scheduled 2022-03-26 INFLUENZA VACCINE Method [facility] Hospital Test 23:31:27 [code = INFLUENZA VACCINE] Future Scheduled 2022-02-07 HEPATITIS B VACCINES Met [facility] Test 08:46:41 (1 of 3 - 3-dose series) [code = HEPATITIS B VACCINES (1 of 3 - 3-dose series)] Future Scheduled 2022-02-07 Pneumococcal Vaccine: [facility] Test 08:46:41 Pediatrics (0 to 5 Years) and At-Risk Patients (6 to 64 Years) (1 - PCV) [code = Pneumococcal Vaccine: Pediatrics (0 to 5 Years) and At-Risk Patients (6 to 64 Years) (1 - PCV)] Future Scheduled 2022-02-07 Hepatitis C screening [facility] Test 08:46:41 (procedure) [code = 452504550] Future Scheduled 2022-02-07 SHINGLES VACCINES (1 Met [facility] Test 08:46:41 of 2) [code = SHINGLES VACCINES (1 of 2)] Future Scheduled 2022-02-07 COLONOSCOPY SCREENING [facility] Test 08:46:41 [code = COLONOSCOPY SCREENING] Future Scheduled 2022-02-07 COVID-19 VACCINE (2 - [facility] Test 08:46:41 Moderna risk series) [code = COVID-19 VACCINE (2 - Moderna risk series)] Future Scheduled 2022-02-07 INFLUENZA VACCINE Method [facility] Test 08:46:41 [code = INFLUENZA VACCINE] Future Scheduled 2021-04-15 Hepatitis C screening [facility] Test 08:27:26 (procedure) [code = 863944892] Future Scheduled 2021-04-15 COLONOSCOPY SCREENING [facility] Test 08:27:26 [code = COLONOSCOPY SCREENING] Future Scheduled 2021-04-15 SHINGLES VACCINES (#1) M [facility] Test 08:27:26 [code = SHINGLES VACCINES (#1)] Future Scheduled 2021-04-15 COVID-19 VACCINE (2 - Me [facility] Test 08:27:26 Moderna risk 4-dose series) [code = COVID-19 VACCINE (2 - Moderna risk 4-dose series)] Future Scheduled 2021-04-15 INFLUENZA VACCINE Method [facility] Test 08:27:26 [code = INFLUENZA VACCINE] Future Scheduled COVID-19 VACCINE (1) Met [facility] Test [code = COVID-19 VACCINE (1)] Future Scheduled Hepatitis C screening [facility] Test (procedure) [code = 221056582] Future Scheduled COLONOSCOPY SCREENING [facility] Test [code = COLONOSCOPY SCREENING] Future Scheduled SHINGLES VACCINES (#1) M [facility] Test [code = SHINGLES VACCINES (#1)] Future Scheduled INFLUENZA VACCINE Method [facility] Test [code = INFLUENZA VACCINE] Encounters Start End Encounter Admission Attending Care Care Encounter Source Date/Time Date/Time Type Type Clinicians Facility Department ID 2022-06-05 2022-06-05 Lab Carole, 1.2.840.1 [id number] 2099 [id number] [facility]i 09:25:00 09:30:00 Juan Dominguez 30946.1.[address] 3.430.2.7 Hospit a .3.075254 l .8 2022-06-05 2022-06-05 [facility] [id number] [place] 00:00:00 00:00:[address] 2022-06-05 2022-06-05 Travel 1.2.840.1 1.2.211.768 [id number] Methodi 00:00:00 00:00:[address] 3.430.2.7 0.2.7.3.698 Ho spita .3.296560 084.8 l .8 2022 2022 Outpatient [facility] [id number] [facility] 00:00:00 00:00:00 [id number] [facility] 2022-01-30 2022-01-30 Lab Carole, 1.2.840.1 [id number] 2099 [id number] Methodi 07:00:00 07:05:00 Juan Dominguez 94255.1.[address] 3.430.2.7 Hospit a .3.447587 l .8 2022-01-30 2022-01-30 Lab Carole, 1.2.840.1 [id number] 2099 [id number] Methodi 07:00:00 07:05:00 Juan Dominguez 14564.1.[address] 3.430.2.7 Hospit a .3.251499 l .8 2022-01-30 2022-01-30 Lab Carole, 1.2.840.1 [id number] 2100 [id number] Methodi 06:00:00 06:05:00 Juan Dominguez 71549.1.[address] 3.430.2.7 Hospit a .3.446353 l .8 2022-01-30 2022-01-30 Lab Carole, 1.2.840.1 [id number] 2100 [id number] Methodi 06:00:00 06:05:00 Juan Dominguez 50138.1.[address] 3.430.2.7 Hospit a .3.904010 l .8 2022-01-30 2022-01-30 Travel 1.2.840.1 1.2.750.631 0855 [id number] Methodi 00:00:00 00:00:[address] 3.430.2.7 0.2.7.3.698 Ho spita .3.750364 084.8 l .8 2022-01-30 2022-01-30 Travel 1.2.840.1 1.2.164.428 3912 [id number] Methodi 00:00:00 00:00:[address] 3.430.2.7 0.2.7.3.698 Ho spita .3.234101 084.8 l .8 2021-09-05 2021-09-05 Lab Carole, 1.2.840.1 [id number] Methodi 06:25:00 06:30:00 Juan Dominguez 55748.1.[address] 3.430.2.7 Hospit a .3.387082 l .8 2021-09-05 2021-09-05 Lab Carole, 1.2.840.1 [id number] 2099 [id number] Methodi 06:25:00 06:30:00 Juan Dominguez 02421.1.[address] 3.430.2.7 Hospit a .3.936333 l .8 2021-09-05 2021-09-05 Travel 1.2.840.1 1.2.429.830 0348 [id number] Methodi 00:00:00 00:00:[address] 3.430.2.7 0.2.7.3.698 Ho spita .3.278368 084.8 l .8 2021-09-05 2021-09-05 Travel 1.2.840.1 1.2.156.176 1345 [id number] Methodi 00:00:00 00:00:[address] 3.430.2.7 0.2.7.3.698 Ho spita .3.161422 084.8 l .8 2021-04-15 2021-04-15 Lab Carole, 1.2.840.1 [id number] 2099 [id number] Methodi 06:10:00 06:15:00 Juan Dominguez 75179.1.[address] 3.430.2.7 Hospit a .3.184409 l .8 2021-04-15 2021-04-15 Travel 1.2.840.1 1.2.025.150 1803 [id number] Methodi 00:00:00 00:00:[address] 3.430.2.7 0.2.7.3.698 Ho spita .3.714098 084.8 l .8 2021-03-18 2021-03-18 Sol Klein, 1.2.840.1 [id number] 2099 [id number] Methodi 06:20:00 06:25:00 Juan Dominguez [address]878.1.[address] 3.430.2.7 Hospit a .3.782750 l .8 2021-03-18 2021-03-18 Travel 1.2.840.1 1.2.829.211 5652 [id number] Methodi 00:00:00 00:00:[address] 3.430.2.7 0.2.7.3.698 Ho spita .3.924266 084.8 l .8 2021-03-11 2021-03-11 Lab Carole, 1.2.840.1 [id number] 2099 [id number] Methodi 09:00:00 09:05:00 Juan Dominguez [address]3875.1.[address] 3.430.2.7 Hospit a .3.788149 l .8 2021-03-11 2021-03-11 Travel 1.2.840.1 1.2.567.909 7754 [id number] Methodi 00:00:00 00:00:[address] 3.430.2.7 0.2.7.3.698 Ho spita .3.376201 084.8 l .8 2021-02-28 2021-02-28 Lab Leanne, 1.2.840.1 [id number] Methodi 08:20:00 08:25:00 Miche[address] Covarrubias [address] 3.430.2.7 Hospit a .3.728587 l .8 2021-02-28 2021-02-28 Travel 1.2.840.1 1.2.914.804 5457 [id number] Methodi 00:00:00 00:00:[address] 3.430.2.7 0.2.7.3.698 Ho spita .3.590179 084.8 l .8 2021-02-25 2021-02-25 Travel 1.2.840.1 1.2.883.832 8547 [id number] Methodi 00:00:00 00:00:[address] 3.430.2.7 0.2.7.3.698 Ho spita .3.929366 084.8 l .8 2020-11-26 2020-11-26 Lab Carole, 1.2.840.1 [id number] Methodi 08:48:26 08:53:26 Juan Dominguez 17507.1.[address] 3.430.2.7 Hospit a .3.015653 l .8 2020-11-26 2020-11-26 Travel 1.2.840.1 1.2.833.333 4604 [id number] Methodi 00:00:00 00:00:[address] 3.430.2.7 0.2.7.3.698 Ho spita .3.578360 084.8 l .8 2020-11-15 2020-11-15 Travel 1.2.840.1 1.2.143.515 5984 [id number] Methodi 00:00:00 00:00:[address] 3.430.2.7 0.2.7.3.698 Ho spita .3.793693 084.8 l .8 2020-09-13 2020-09-13 Sol Klein, 1.2.840.1 [id number] Methodi 10:07:34 10:12:34 Juan Dominguez 03837.1.[address] 3.430.2.7 Hospit a .3.127106 l .8 2020-09-13 2020-09-13 Travel 1.2.840.1 1.2.372.835 9919 [id number] Methodi 00:00:00 00:00:[address] 3.430.2.7 0.2.7.3.698 Ho spita .3.995871 084.8 l .8 2020-09-03 2020-09-03 Lab Carole, 1.2.840.1 [id number] 2099 [id number] Methodi 07:58:11 08:03:11 Juan Dominguez [address].1.[address] 3.430.2.7 Hospit a .3.650218 l .8 2020-09-03 2020-09-03 Travel 1.2.840.1 1.2.803.311 7458 112403 Methodi 00:00:00 00:00:[address] 3.430.2.7 0.2.7.3.698 Ho spita .3.532550 084.8 l .8 2020-08-29 2020-08-29 Travel 1.2.840.1 1.2.266.763 5410 466797 Methodi 00:00:00 00:00:[address] 3.430.2.7 0.2.7.3.698 Ho spita .3.780030 084.8 l .8 2020-08-13 2020-08-13 Travel 1.2.840.1 1.2.241.431 5113 584322 Methodi 00:00:00 00:00:[address] 3.430.2.7 0.2.7.3.698 Ho spita .3.865199 084.8 l .8 2020-07-30 2020-07-30 Travel 1.2.840.1 1.2.429.077 9580 829487 Methodi 00:00:00 00:00:[address] 3.430.2.7 0.2.7.3.698 Ho spita .3.097364 084.8 l .8 2020-06-07 2020-06-07 Lab Leanne, 1.2.840.1 [id number] 1573 Methodi 07:23:50 07:28:50 Micheal Covarrubias [address] 3.430.2.7 Hospit a .3.954857 l .8 2020-06-06 2020-06-06 Travel 1.2.840.1 1.2.468.862 [id number] Methodi 00:00:00 00:00:[address] 3.430.2.7 0.2.7.3.698 Ho spita .3.548753 084.8 l .8 2020-03-18 2020-03-18 Telephone WINSTON Heard 1.2.150.237 [id number] Univers 00:00:00 00:00:00 Gabriela TARIQ 350.1.13.10 i [facility] 4.2.7.2.686 [place] [phone] [address] 2020-03-18 2020-03-18 Telephone WINSTON Heard 1.2.704.958 [id number] 00:00:00 00:00:00 Gabriela TARIQ 350.1.13.[address]686 [id number] 019 2020-03-16 2020-03-16 Laboratory Only, [facility] Test [facility] 1.2.840. 114 [id number] Univers 15:00:29 15:15:29 Only Tay Hsu 350.1.13.10 [facility] 4.2.7.2.686 [facility] [id number] [address] 2020-03-16 2020-03-16 Laboratory Only, [facility] 1.2.840.114 [id number] 15:00:29 15:15:29 Only Test [place] 350.1.13.10 [place] 4.2.7.2.686 [place] [id number] [facility] 2020-03-16 2020-03-16 Outpatient R JAZLYN [facility] [id number] Univers 15:15:00 15:15:00 TAY gant [facility] 2020-01-30 2020-01-30 Lab Carole 1.2.840.1 [id number] Methodi 04:42:28 04:47:28 Juan Covarrubias [address]38.1.[address] 3.430.2.7 Hospit a .3.936712 l .8 2020-01-30 2020-01-30 Travel 1.2.840.1 1.2.726.850 [id number] Methodi 00:00:00 00:00:[address] 3.430.2.7 0.2.7.3.698 Ho spita .3.613759 084.8 l .8 2020-01-23 2020-01-23 Lab Carole, 1.2.840.1 [id number] 2099 [id number] Methodi 04:55:00 05:00:00 Juan Covarrubias [address]3247.1.[address] 3.430.2.7 Hospit a .3.751821 l .8 2020-01-23 2020-01-23 Travel 1.2.840.1 1.2.674.831 [id number] [id number] Methodi 00:00:00 00:00:[address] 3.430.2.7 0.2.7.3.698 Ho spita .3.709969 084.8 l .8 2020-01-09 2020-01-09 Lab Carole, 1.2.840.1 [id number] 2099 [id number] Methodi 05:05:00 05:10:00 Juan Covarrubias 03223.1.[address] 3.430.2.7 Hospit a .3.114560 l .8 2020-01-09 2020-01-09 Travel 1.2.840.1 1.2.349.414 [id number] [id number] Methodi 00:00:00 00:00:[address] 3.430.2.7 0.2.7.3.698 Ho spita .3.194868 084.8 l .8 2019-07-04 2019-07-04 Usha Bean [facility] [id number] [place] 00:00:00 00:00:[address] Results Test Description Test Time Test Comments Results Result Comments Source Creatinine level, urine, random 2022-06-05 17:00:00 Test Item Value Reference Range Interpretation Comme nts Creatinine, urine (mg/dL) (test code = 13176-0) 179 mg/dL [facility], [id number] 17:00:00 Test Item Value Reference Range Interpretation Comments Protein, urine random (test code = 90 mg/dL 2888-6) [facility] automated with [id number] 16:47:00 Test Item Value Reference Range Interpretation Comments Color, UA (test code = Yellow 5778-6) Appearance, UA (test Clear code = 5767-9) Specific gravity, UA 1.025 1.001-1.035 (test code = 5811-5) pH, UA (test code = 6.0 5.0-8.5 5803-2) Protein, UA (test code = 2+ Negative A 25174-6) Glucose, UA (test code = 3+ Negative A 20491-9) Ketones, UA (test code = Negative Negative 2514-8) Bilirubin, UA (test code Negative Negative = 5770-3) Blood, UA (test code = Moderate Negative A 5794-3) Nitrite, UA (test code = Negative Negative 5802-4) Urobilinogen, UA (test <2.0 <=2.0 code = 46411-1) Leukocyte esterase, UA Negative Negative (test code = 5799-2) WBC, UA (test code = See_Comment [Autom ated message] 5821-4) The system [employer] generated this result transmit dirk reference range : 0 - 1 /HPF. The reference range was not used to interpret this result as normal/abnormal . RBC, UA (test code = 3 See_Comment [Autom ated message] 28178-3) The system [employer] generated this result transmit dirk reference range : 0 - 5 /HPF. The reference range was not used to interpret this result as normal/abnormal . Bacteria, UA (test code None seen None seen = 57261-7) Yeast, UA (test code = None seen 79514-9) Yeast with pseudohyphae, None seen UA (test code = 35775-1) Lab Interpretation (test Abnormal code = 95187-6) [facility], [id number] 15:44:00 Test Item Value Reference Range Interpretation Comments Creatinine, urine (mg/dL) (test 110 mg/dL code = 58336-0) [facility] [id number] 15:44:00 Test Item Value Reference Range Interpretation Comments Protein, urine random (test code = 67 mg/dL 2888-6) [facility], urine, [id number] 15:44:00 Test Item Value Reference Range Interpretation Comments Creatinine, urine (mg/dL) (test 110 mg/dL code = 74083-1) [facility], [id number] 15:44:00 Test Item Value Reference Range Interpretation Comments Protein, urine random (test code = 67 mg/dL 2888-6) [facility] and microscopy, with reflex to culture 2022-01-30 15:43:00 Test Item Value Reference Range Interpretation Comments Specimen site (test Clean catch code = 8073636) Color, UA (test code = Yellow 5778-6) Appearance, UA (test Clear code = 5767-9) Specific gravity, UA 1.001-1.035 (test code = 5811-5) pH, UA (test code = 5.0-8.5 5803-2) Protein, UA (test code 2+ Negative A = 00554-7) Glucose, UA (test code 3+ Negative A = 18774-7) Ketones, UA (test code Negative Negative = 2514-8) Bilirubin, UA (test Negative Negative code = 5770-3) Blood, UA (test code = Small Negative A 5794-3) Nitrite, UA (test code Negative Negative = 5802-4) Urobilinogen, UA (test <2.0 See_Comment [Aut omated code = 18570-5) message] The system which generated this result [...] (test code = <1 See_Comment [Autom ated 07318-3) message] The sy stem which generated this result transmitted reference range : 0 - 5 /HPF. The reference range was not used to interpret this result as normal/abnormal . Bacteria, UA (test code None seen None seen = 37022-5) Yeast, UA (test code = None seen 84662-5) Yeast with None seen pseudohyphae, UA (test code = 88976-6) Lab Interpretation Abnormal (test code = 58336-5) [facility], with reflex to culture 2022-01-30 15:43:00 Test Item Value Reference Range Interpretation Comments Specimen site (test Clean catch code = 7263343) Color, UA (test code = Yellow 5778-6) Appearance, UA (test Clear code = 5767-9) Specific gravity, UA 1.001-1.035 (test code = 5811-5) pH, UA (test code = 5.0-8.5 5803-2) Protein, UA (test code 2+ Negative A = 90654-2) Glucose, UA (test code 3+ Negative A = 06071-5) Ketones, UA (test code Negative Negative = 2514-8) Bilirubin, UA (test Negative Negative code = 5770-3) Blood, UA (test code = Small Negative A 5794-3) Nitrite, UA (test code Negative Negative = 5802-4) Urobilinogen, UA (test <2.0 See_Comment [Aut omated code = 33087-9) message] The system which generated this result [...] (test code = <1 See_Comment [Autom ated 71770-7) message] The sy stem which generated this result transmitted reference range : 0 - 5 /HPF. The reference range was not used to interpret this result as normal/abnormal . Bacteria, UA (test code None seen None seen = 98533-8) Yeast, UA (test code = None seen 33669-7) Yeast with None seen pseudohyphae, UA (test code = 41315-7) Lab Interpretation Abnormal (test code = 26606-5) [facility], with reflex to culture 2022-01-30 15:43:00 Test Item Value Reference Range Interpretation Comments Specimen site (test Clean catch code = 4600466) Color, UA (test code = Yellow 5778-6) Appearance, UA (test Clear code = 5767-9) Specific gravity, UA 1.020 1.001-1.035 (test code = 5811-5) pH, UA (test code = 6.0 5.0-8.5 5803-2) Protein, UA (test code 2+ Negative A = 14669-7) Glucose, UA (test code 3+ Negative A = 57135-8) Ketones, UA (test code Negative Negative = 2514-8) Bilirubin, UA (test Negative Negative code = 5770-3) Blood, UA (test code = Small Negative A 5794-3) Nitrite, UA (test code Negative Negative = 5802-4) Urobilinogen, UA (test <2.0 <=2.0 code = 13338-6) Leukocyte esterase, UA Negative Negative (test code = 5799-2) WBC, UA (test code = None seen See_Comment [Autom ated 5821-4) message] The sy stem which generated this result transmitted reference range : 0 - 1 /HPF. The reference range was not used to interpret this result as normal/abnormal . RBC, UA (test code = <1 See_Comment [Autom ated 45696-0) message] The sy stem which generated this result transmitted reference range : 0 - 5 /HPF. The reference range was not used to interpret this result as normal/abnormal . Bacteria, UA (test code None seen None seen = 74044-3) Yeast, UA (test code = None seen 69347-5) Yeast with None seen pseudohyphae, UA (test code = 57104-5) Lab Interpretation Abnormal (test code = 94615-3) [facility] [id number] 15:35:00 Test Item Value Reference Range Interpretation Comments Urine culture (test SEE COMMENT Bacteriu deandre screen code = 7039144) negative. [facility] [id number] 15:35:00 Test Item Value Reference Range Interpretation Comments Urine culture (test SEE COMMENT Bacteriu deandre screen code = 5192560) negative. [facility] [id number] 15:35:00 Test Item Value Reference Range Interpretation Comments Urine culture (test SEE COMMENT Bacteriu deandre screen code = 8861084) negative. [facility], urine, [id number] 17:11:47 Test Item Value Reference Range Interpretation Comments Creatinine, urine (mg/dL) (test 121 mg/dL code = 15723-0) [facility], [id number] 17:11:47 Test Item Value Reference Range Interpretation Comments Protein, urine random (test code = 161 mg/dL 2888-6) [facility] [id number] 15:53:04 Test Item Value Reference Range Interpretation Comments Urine culture (test SEE COMMENT Bacteriu deandre screen code = 1253377) negative. [facility] and microscopy, with reflex to culture 2021-04-15 15:53:03 Test Item Value Reference Range Interpretation Comments Specimen site (test Clean catch code = 4099605) Color, UA (test code = Straw 5778-6) Appearance, UA (test Clear code = 5767-9) Specific gravity, UA 1.001-1.035 (test code = 5811-5) pH, UA (test code = 5.0-8.5 5803-2) Protein, UA (test code 2+ Negative A = 27509-1) Glucose, UA (test code 3+ Negative A = 91551-1) Ketones, UA (test code Negative Negative = 2514-8) Bilirubin, UA (test Negative Negative code = 5770-3) Blood, UA (test code = Moderate Negative A 5794-3) Nitrite, UA (test code Negative Negative = 5802-4) Urobilinogen, UA (test <2.0 <2.0 code = 33495-4) Leukocyte esterase, UA Negative Negative (test code = 5799-2) WBC, UA (test code = See_Comment [Autom ated 5821-4) message] The sy stem which generated this result transmitted reference range : 0 - 1 /HPF. The reference range was not used to interpret this result as normal/abnormal . RBC, UA (test code = See_Comment [Autom ated 12295-1) message] The sy stem which generated this result transmitted reference range : 0 - 5 /HPF. The reference range was not used to interpret this result as normal/abnormal . Bacteria, UA (test code None seen None seen = 45857-1) Yeast, UA (test code = None seen 21879-2) Yeast with None seen pseudohyphae, UA (test code = 60490-6) Lab Interpretation Abnormal (test code = 12891-4) [facility], [id number] 21:24:19 Test Item Value Reference Range Interpretation Comments Protein, urine random (test code = 484 mg/dL 2888-6) [facility]Creat[facility], urine, [id number] 16:47:21 Test Item Value Reference Range Interpretation Comments Creatinine, urine, random (test 201 mg/dL code = 28873-2) [facility]Urinal[facility] screen and microscopy, with reflex to culture 2020-11-26 15:18:17 Test Item Value Reference Range Interpretation Comments Specimen site (test Clean catch code = 0543365) Color, UA (test code = Yellow 5778-6) Appearance, UA (test Clear code = 5767-9) Specific gravity, UA 1.001-1.035 (test code = 5811-5) pH, UA (test code = 5.0-8.5 5803-2) Protein, UA (test code 3+ Negative A = 89703-7) Glucose, UA (test code 1+ Negative A = 49151-3) Ketones, UA (test code Negative Negative = 2514-8) Bilirubin, UA (test Negative Negative code = 5770-3) Blood, UA (test code = Moderate Negative A 5794-3) Nitrite, UA (test code Negative Negative = 5802-4) Urobilinogen, UA (test <2.0 <2.0 code = 47726-6) Leukocyte esterase, UA Negative Negative (test code = 5799-2) WBC, UA (test code = See_Comment [Autom ated 5821-4) message] The sy stem which generated this result transmitted reference range : 0 - 1 /HPF. The reference range was not used to interpret this result as normal/abnormal . RBC, UA (test code = See_Comment H [Autom ated 13804-3) message] The sy stem which generated this result transmitted reference range : 0 - 5 /HPF. The reference range was not used to interpret this result as normal/abnormal . Bacteria, UA (test code None seen None seen = 41189-3) Yeast, UA (test code = None seen 27504-6) Yeast with None seen pseudohyphae, UA (test code = 84670-1) Hyaline casts, UA (test See_Comment [Au tomated code = 5796-8) message] The system which generated this result transmitted reference range : /LPF. The refer ence range was not u sed to interpret th is result as normal/abnormal . Lab Interpretation Abnormal (test code = 75126-1) [facility] CenterUrine [id number] 14:41:27 Test Item Value Reference Range Interpretation Comments Urine culture (test SEE COMMENT Bacteriu deandre screen code = 5308441) negative. [facility])2019-09-17 04:32:00 Test Item Value Reference Range Interpretation Comments SARS-COV2/RT-PCR (test Not Detected Not Detected, Negative code = 0025068) SARS-COV-2 PERFORMING LAB [facility] (test code = 6722265) Negative results do not preclude SARS-CoV-2 infection [...] of the Act.Fact Sheet for Healthcare Pro viders:https://www.Epos/Documents/Xpert%20Xpress%20SARS%20CoV-2/Fact%20Sh eets/3023802%20VZAN-TVM-7%20HEALTHCARE%20PROVIDERS%20FACT%20SHEET.pdfFact Sheet for Healthcare Patients:https://www.Karaz/Documents/Xpert%20Xpress%20SARS%20CoV-2/Fact%20Sheets/3023801%20SARS-COV -2%20PATIENT%20FACT%20SHEET.pdfPerforming Laboratory:[facility] [place] [address]
--- NOTE | 2022-06-20 11:04 | RAD REPORT ---
EXAM DESCRIPTION: US - Extremity Venous Uni Ltd - 06/20/2022 10:42 am CLINICAL HISTORY: Pain swell COMPARISON: 03/13/2021 TECHNIQUE: Real-time sonographic evaluation of the left lower extremity deep venous system was perfo rmed. FINDINGS: Color Doppler, grayscale, and spectral analysis was performed. The left popliteal vein is partially compressible. There is still some echogenic material within the lumen of the popliteal vein along the wall. The left common femoral vein, greater saphenous vein, femoral vein, and posterior tibial veins are co mpressible and demonstrate flow on color and grayscale. IMPRESSION: Chronic left popliteal vein thrombus.
[2022-06-20 12:52] VITALS: BP 145/89; TEMP 97.8; O2SAT 99
--- NOTE | 2022-07-04 16:20 | EDPHYS ---
Physician Documentation [facility] Name: Shoaib Freitas Jr Age: 57 yrs Sex: Male : 1965 Arrival Date: 06/20/2022 Time: 08:27 Bed 13 Private MD: ED Physician Sebas Stephenson HPI: 06/20 08:36 This 57 yrs old Black Male presents to ER via Unassigned with complaints of Leg jmm Swelling, Leg Pain. 08:36 The patient presents with pain, swelling. Onset: The symptoms/episode began/occurred jmm gradually. Modifying factors: The symptoms are alleviated by nothing. the symptoms are aggravated by nothing. Associated signs and symptoms: Pertinent negatives chest pain, shortness of breath, fever. The patient has experienced similar episodes in the past. Historical: - Allergies: 08:37 No Known Allergies; ph - Home Meds: 08:37 CellCept Oral [Active]; valsartan 40 mg Oral tab 1 tab once daily for Hypertension ph [Active]; prednisone 5 mg Oral tab once daily [Active]; diltiazem HCl 240 mg Oral cpER 1 cap once daily for Hypertension [Active]; - PMHx: 08:37 diabetes mellitus; Gall Stones; Hypertension; kidney transplant; Pancreatitis; history ph of dialysis; - PSHx: 08:37 kidney transplant; ph - Immunization history:: Adult Immunizations unknown. - Social history:: Smoking status: Patient denies any tobacco usage or history of. ROS: 08:36 Constitutional: Negative for fever, chills, and weight loss, Cardiovascular: Negative jmm for chest pain, palpitations, and edema, Respiratory: Negative for shortness of breath, cough, wheezing, and pleuritic chest pain. 08:36 MS/extremity: Positive for pain, swelling. 08:36 All other systems are negative. Exam: 08:36 Constitutional: This is a well developed, well nourished patient who is awake, alert, jmm and in no acute distress. Head/Face: atraumatic. Eyes: EOMI, no conjunctival erythema appreciated ENT: Moist Mucus Membranes Neck: Trachea midline, Supple Chest/axilla: Normal chest wall appearance and motion. Cardiovascular: Regular rate and rhythm. No edema appreciated Respiratory: Normal respirations, no respiratory distress appreciated Abdomen/GI: Non distended Back: Normal ROM Skin: General appearance color normal 08:36 Musculoskeletal/extremity: mild swelling noted to the left calf, full dorsalis pulse, compartments are soft, NVI. 08:36 Skin: Appearance: Color: normal in color. 08:36 Neuro: Motor: is normal. 08:36 Psych: Behavior/mood is pleasant, cooperative. Vital Signs: 08:35 BP 145 / 89; Pulse 82; Resp 18; Temp 97.8; Pulse Ox 99% ; Weight 104.33 kg; Height 5 ph ft. 11 in. ; 08:35 Body Mass Index 32.08 (104.33 kg, 180.34 cm) ph MDM: 08:31 Patient medically screened. [facility] 11:10 Data reviewed: vital signs, nurses notes. Historians other than the Patient: . [facility] 11:15 Differential diagnosis: strain, dvt, cellulitis. Counseling: I had a detailed [facility] discussion with the patient and/or guardian regarding: the historical points, exam findings, and any diagnostic results supporting the discharge/admit diagnosis, radiology results, the need for outpatient follow up, to return to the emergency department if symptoms worsen or persist or if there are any questions or concerns that arise at home. ED course: Patient is alert and non toxic in appearance in the ED. US does reveal old dvt. Patient encouraged to continue to take xarelto. Patient denies fever, chills, chest pain, sob. Encouraged to f/u with pcp and otherwise given strict return precautions. patient understood and agrees with the plan of care. . 03 08:35 Order name: US Extremity Venous Unilateral Ltd; Complete Time: 11:05 [facility] Administered Medications: No medications were administered Disposition: 16:03 Co-signature as Attending Physician, Sebas Stephenson MD I reviewed the patient's care rn provided by the Advanced Practice Provider and agree with the diagnosis and treatment plan. Disposition Summary: 06/20/22 11:19 Discharge Ordered Location: Home [facility] Condition: Stable [facility] Diagnosis - Pain in left lower leg [facility] Followup: jm - With: Private Physician - When: 2 - 3 days - Reason: Recheck today's complaints, Continuance of care, Re-evaluation by your physician Discharge Instructions: - Discharge Summary Sheet jm - Musculoskeletal Pain jm Forms: - Medication Reconciliation Form [facility] - Thank You Letter jm - Antibiotic Education jmm - Prescription Opioid Use jm Prescriptions: - orphenadrine citrate 100 mg Oral Tablet Sustained Release - take 1 tablet by ORAL route 2 times per day As needed; 20 tablet; Refills: 0, [facility] Product Selection Permitted Signatures: Dispatcher [employer] Nestor Aguilera PA PA Sebas Berry MD MD rn DumontSara RN RN
--- NOTE | 2022-07-04 16:20 | ER ---
Nurse's Notes [facility] Name: Shoaib Freitas Jr Age: 57 yrs Sex: Male : 1965 Arrival Date: 06/20/2022 Time: 08:27 Bed 13 Private MD: Diagnosis: Pain in left lower leg Presentation: 06/20 08:35 Chief complaint: Patient states: Swelling to L leg and ankle that he noticed a few days ph ago, denies injury or trauma, also denies fever. Coronavirus screen: Vaccine status: Patient reports receiving the 2nd dose of the covid vaccine. Ebola Screen: No symptoms or risks identified at this time. Initial Sepsis Screen: Does the patient meet any 2 criteria? No. Patient's initial sepsis screen is negative. Does the patient have a suspected source of infection? No. Patient's initial sepsis screen is negative. Risk Assessment: Do you want to hurt yourself or someone else? Patient reports no desire to harm self or others. Onset of symptoms was June 20, 2022. 08:35 Method Of Arrival: Ambulatory ph 08:35 Acuity: COBY 3 ph Historical: - Allergies: 08:37 No Known Allergies; ph - Home Meds: 08:37 CellCept Oral [Active]; valsartan 40 mg Oral tab 1 tab once daily for Hypertension ph [Active]; prednisone 5 mg Oral tab once daily [Active]; diltiazem HCl 240 mg Oral cpER 1 cap once daily for Hypertension [Active]; - PMHx: 08:37 diabetes mellitus; Gall Stones; Hypertension; kidney transplant; Pancreatitis; history ph of dialysis; - PSHx: 08:37 kidney transplant; ph - Immunization history:: Adult Immunizations unknown. - Social history:: Smoking status: Patient denies any tobacco usage or history of. Screenin:05 [facility] ED Fall Risk Assessment (Adult) Score/Fall Risk Level 0 - 2 = Low Risk hb Oriented to surroundings, Maintained a safe environment, Educated pt \T\ family on fall prevention, incl call for assistance when getting out of bed. Abuse screen: Denies threats or abuse. Denies injuries from another. Nutritional screening: No deficits noted. Tuberculosis screening: No symptoms or risk factors identified. Assessment: 09:05 General: Appears in no apparent distress. Behavior is calm, cooperative. Neuro: Level hb of Consciousness is awake, alert, obeys commands, Oriented to person, place, time, situation. Cardiovascular: Patient's skin is warm and dry. Respiratory: Respiratory effort is even, unlabored, Respiratory pattern is regular, symmetrical. GI: No signs and/or symptoms were reported involving the gastrointestinal system. : No signs and/or symptoms were reported regarding the genitourinary system. EENT: No signs and/or symptoms were reported regarding the EENT system. Derm: Skin is pink, warm \T\ dry. Musculoskeletal: Reports left leg pain and swelling. 10:41 Reassessment: Patient appears in no apparent distress at this time. Patient and/or hb family updated on plan of care and expected duration. Pain level reassessed. Patient is alert, oriented x 3, equal unlabored respirations, skin warm/dry/pink. Vital Signs: 08:35 BP 145 / 89; Pulse 82; Resp 18; Temp 97.8; Pulse Ox 99% ; Weight 104.33 kg; Height 5 ph ft. 11 in. ; 08:35 Body Mass Index 32.08 (104.33 kg, 180.34 cm) ph ED Course: 08:27 Patient arrived in ED. [id number] 08:28 Nestor Hilliard PA is PHCP. [facility] 08:28 Sebas Stephenson MD is Attending Physician. jm 08:37 Triage completed. ph 08:38 Arm band placed on Patient placed in an exam room. ph 09:05 Patient has correct armband on for positive identification. hb 09:16 Annie Mcintyre, RN is Primary Nurse. hb 10:43 US Extremity Venous Unilateral Ltd In Process Unspecified. EDMS Administered Medications: No medications were administered Medication: 09:05 VIS not applicable for this client. hb Outcome: 11:19 Discharge ordered by . jmm 11:42 Patient left the ED. hb Signatures: Dispatcher [employer] EDMS Nestor Hilliard PA PA jmm Hall, Patricia, RN RN Annie Mcintyre, RN RN Elis Hatch [email or web address]
== END 2022-06-20 11:42 | disposition home or self-care (01) ==
LOC: ER 08:24
DX: M79.662 Pain in left lower leg (principal); Z94.0 Kidney transplant status
CPT/HCPCS: 93971; 99282

== ENCOUNTER 2022-08-25 14:51 | Emergency (ER) | payer MEDICARE ==
--- OUTSIDE RECORDS SUMMARY | 2022-08-25 14:56 | XMS REPORT | Continuity of Care Document ---
:1965 Author Organization [facility] t Address [address] [facility] [address] [place] [address] Care Team Providers Name Role Phone Peter ALVAREZ, Terrence Gerardo Primary Care Physician [phone] Ogbechie_L Attending Clinician Unavailable Genesis Watts Attending Clinician Ernie ALVAREZ, Juan Dominguez Attending Clinician Mellissa ALVAREZ, Guzman Lim Attending Clinician [phone] Micheal Perdomo MD Attending Clinician Félix SÁNCHEZ, Gabriela Magdaleno Attending Clinician Unavailable Only, Adc Test Attending Clinician Unavailable Tay Hsu MD Attending Clinician TAY HSU Attending Clinician Unavailable Usha FABIAN Attending Clinician Unavailable Ogbechie_Vanessa Admitting Clinician Unavailable Payers Payer Name Policy Type Policy Number Effective Date Expiration Date S [facility] [id number] 2022 (MEDICARE 00:00:00 REPLACEMENT HMO) [...] 2017-04 [facility] 00[facility] Hosp[facility] 00 l Cholelithi Cholelithi Disease Active 2017-04 M roger asikassidy asis 0 st 00:00: Hospita 00 l Allergies, Adverse Reactions, Alerts Allergy Allergy Status Severity Reaction(s) Onset Inactive Treating Comm ents Source Name Type Date Date Clinician NO KNOWN Drug Active Univers ALLERGIE Class ity of [facility] Family History Family Member Diagnosis Comments Start Date Stop Date Source Natural father Hypertension [facility] Natural mother Heart disease [facility] Natural mother Hypertension [facility] Natural sister Diabetes [facility] Social History Social Habit Start Date Stop Date Quantity Comments Source History of tobacco Current smoker [facility] Exposure to Not sure [facility]ec[facility] SARS-CoV-2 (event) Hospit al Gender identity Pentecostal [facility] Sexual orientation [facility] History of Social 2018-11-28 2018-11-[address] function 00:00:00 00:00:00 Hospital Alcohol intake 2018-01-18 2018-01-18 Current [employer]ecostal 00:00:00 00:00:00 non-drinker of Hospital alcohol (finding) Tobacco use and 2018-01-15 2018-01-15 Smokeless Pent[employer]al exposure 00:00:00 00:00:00 tobacco non-user Hospital Tobacco Comment 2018-01-15 2018-01-15 "Quit 2-3 months [facility] 00:00:00 00:00:00 ago" Hospital Sex Assigned At [birth year] [facility]al 00:00:00 00:00:00 Hospital Smoking Status Start Date Stop Date Source Unknown if ever smoked [facility] Ex-smoker 2018-01-15 00:00:00 2018-01-15 00:00:[facility] Current some 2016-03-26 00:00:00 [facility] sm[facility] Center Medications Ordered Filled Start [...] Clinician Source Performed MAGNESIUM LEVEL 2022-06-05 15:44:00 [facility] CBC WITH PLATELET AND 2022-06-05 15:44:00 [facility] DIFFERENTIAL COMPREHENSIVE METABOLIC 2022-06-05 15:44:00 [facility] PANEL PROTEIN, URINE, RANDOM 2022-06-05 15:44:00 [facility] CREATININE LEVEL, URINE, 2022-06-05 15:44:00 [facility] RANDOM PHOSPHORUS LEVEL 2022-06-05 15:44:00 Ernie [facility] URINALYSIS, AUTOMATED 2022-06-05 15:44:00 [facility] LDH 2022-06-05 15:44:[address] [facility] PARATHYROID HORMONE 2022-06-05 15:44:00 Juan Klein [facility] VITAMIN D 25 HYDROXY 2022-06-05 15:44:00 Juan Klein [facility] LEVEL LIPID PANEL 2022-06-05 15:44:[address] [facility] CYCLOSPORINE LEVEL, 2022-06-05 15:44:00 Juan Klein [facility] TROUGH ESTIMATED GFR 2022-06-05 15:44:[address] [facility] URINE CULTURE 2022-01-30 14:44:[address] [facility] CBC WITH PLATELET AND 2022-01-30 14:44:00 [facility] DIFFERENTIAL MAGNESIUM LEVEL 2022-01-30 14:44:00 Ernie [facility] PHOSPHORUS LEVEL 2022-01-30 14:44:00 Ernie [facility] URIC ACID LEVEL 2022-01-30 14:44:[address] [facility] LDH 2022-01-30 14:44:[address] [facility] URINALYSIS SCREEN AND 2022-01-30 14:44:00 Juan Klein [facility] MICROSCOPY, WITH REFLEX TO CULTURE PROTEIN, URINE, RANDOM 2022-01-30 14:44:00 Ernie [facility] CREATININE LEVEL, URINE, 2022-01-30 14:44:00 [facility] RANDOM COMPREHENSIVE METABOLIC 2022-01-30 14:44:00 Juan Klein [facility] PANEL CYCLOSPORINE LEVEL, 2022-01-30 14:44:00 [facility]FR 2022-01-30 14:44:[address] [facility] URINE CULTURE 2021-09-05 14:13:00 [facility] CBC WITH PLATELET AND 2021-09-05 14:13:00 [facility] DIFFERENTIAL MAGNESIUM LEVEL 2021-09-05 14:13:00 [facility] PHOSPHORUS LEVEL 2021-09-05 14:13:00 [facility] URIC ACID LEVEL 2021-09-05 14:13:00 [facility] LDH 2021-09-05 14:13:00 [facility] URINALYSIS SCREEN AND 2021-09-05 14:13:00 [facility] MICROSCOPY, WITH REFLEX TO CULTURE PROTEIN, URINE, RANDOM 2021-09-05 14:13:00 [facility] CREATININE LEVEL, URINE, 2021-09-05 14:13:00 [facility] RANDOM COMPREHENSIVE METABOLIC 2021-09-05 14:13:00 [facility] PANEL CYCLOSPORINE LEVEL, 2021-09-05 14:13:00 [facility] RANDOM ESTIMATED GFR 2021-09-05 14:13:00 [facility] URINE CULTURE 2021-04-15 14:00:00 [facility] HC COMPLETE BLD COUNT 2021-04-15 14:00:00 [facility] W/AUTO DIFF MAGNESIUM LEVEL 2021-04-15 14:00:00 [facility] PHOSPHORUS LEVEL 2021-04-15 14:00:00 [facility] URIC ACID LEVEL 2021-04-15 14:00:00 [facility] LDH 2021-04-15 14:00:00 [facility] URINALYSIS SCREEN AND 2021-04-15 14:00:00 [facility] MICROSCOPY, WITH REFLEX TO CULTURE PROTEIN, URINE, RANDOM 2021-04-15 14:00:00 [facility] CREATININE LEVEL, URINE, 2021-04-15 14:00:00 [facility] RANDOM CYCLOSPORINE LEVEL, 2021-04-15 14:00:00 [facility] RANDOM COMPREHENSIVE METABOLIC 2021-04-15 14:00:00 [facility] PANEL ESTIMATED GFR 2021-04-15 14:00:[address] [facility] 2021-03-18 14:23:[address] [facility] HC COMPLETE BLD COUNT 2021-03-18 14:23:00 [facility] W/AUTO DIFF MAGNESIUM LEVEL 2021-03-18 14:23:00 [facility] PHOSPHORUS LEVEL 2021-03-18 14:23:00 Ernie [facility] URIC ACID LEVEL 2021-03-18 14:23:[address] [facility] LDH 2021-03-18 14:23:[address] [facility] CREATININE LEVEL, URINE, 2021-03-18 14:23:00 [facility] RANDOM URINALYSIS SCREEN AND 2021-03-18 14:23:00 [facility] MICROSCOPY, WITH REFLEX TO CULTURE PROTEIN, URINE, RANDOM 2021-03-18 14:23:00 [facility] COMPREHENSIVE METABOLIC 2021-03-18 14:23:00 Ernie [facility] PANEL CYCLOSPORINE LEVEL, 2021-03-18 14:23:00 Juan Klein [facility] RANDOM ESTIMATED GFR 2021-03-18 14:23:[address] [facility] HC COMPLETE BLD COUNT 2021-03-11 15:30:00 [facility] W/AUTO DIFF MAGNESIUM LEVEL 2021-03-11 15:30:[address] [facility] PHOS[facility]US LEVEL 2021-03-11 15:30:00 [facility] URIC ACID LEVEL 2021-03-11 15:30:[address] [facility] LDH 2021-03-11 15:30:00 [facility] COMPREHENSIVE METABOLIC 2021-03-11 15:30:00 [facility] PANEL CYCLOSPORINE LEVEL, 2021-03-11 15:30:00 [facility] RANDOM ESTIMATED GFR 2021-03-11 15:30:00 [facility] URINE CULTURE 2021-03-11 15:15:00 [facility] URINALYSIS SCREEN AND 2021-03-11 15:15:00 [facility] MICROSCOPY, WITH REFLEX TO CULTURE PROTEIN, URINE, RANDOM 2021-03-11 15:15:00 [facility] CREATININE LEVEL, URINE, 2021-03-11 15:15:00 [facility] RANDOM URINE CULTURE 2021-02-28 15:08:00 [facility] HC COMPLETE BLD COUNT 2021-02-28 15:08:00 [facility] W/AUTO DIFF MAGNESIUM LEVEL 2021-02-28 15:08:00 [facility] PHOSPHORUS LEVEL 2021-02-28 15:08:00 [facility] URIC ACID LEVEL 2021-02-28 15:08:00 [facility] LDH 2021-02-28 15:08:00 [facility] URINALYSIS SCREEN AND 2021-02-28 15:08:00 [facility] MICROSCOPY, WITH REFLEX TO CULTURE PROTEIN, URINE, RANDOM 2021-02-28 15:08:00 [facility] CREATININE LEVEL, URINE, 2021-02-28 15:08:00 [facility] RANDOM COMPREHENSIVE METABOLIC 2021-02-28 15:08:00 [facility] PANEL [id number] TACROLIMUS LEVEL, 2021-02-28 15:08:00 [facility] RANDOM CYCLOSPORINE LEVEL, 2021-02-28 15:08:00 [facility] RANDOM ESTIMATED GFR 2021-02-28 15:08:00 Micheal Perdomo [facility] URINE CULTURE 2020-11-26 14:11:00 [place] [facility] HC COMPLETE BLD COUNT 2020-11-26 14:11:00 [facility] W/AUTO DIFF MAGNESIUM LEVEL 2020-11-26 14:11:[address] [place] [address] [facility] PHOSPHORUS LEVEL 2020-11-26 14:11:00 [facility] URIC ACID LEVEL 2020-11-26 14:11:[address] [facility] LDH 2020-11-26 14:11:00 [facility] URINALYSIS SCREEN AND 2020-11-26 14:11:00 [facility] MICROSCOPY, WITH REFLEX TO CULTURE CREATININE LEVEL, URINE, 2020-11-26 14:11:00 [facility] RANDOM PROTEIN, URINE, RANDOM 2020-11-26 14:11:00 [facility] CYCLOSPORINE LEVEL, 2020-11-26 14:11:00 [facility] RANDOM PARATHYROID HORMONE 2020-11-26 14:11:00 [facility] VITAMIN D 25 HYDROXY 2020-11-26 14:11:00 Juan Klein [facility] LEVEL COMPREHENSIVE METABOLIC 2020-11-26 14:11:00 ErnieJuan [facility] PANEL ESTIMATED GFR 2020-11-26 14:11:[address] [facility] URINE CULTURE 2020-09-13 15:29:[address] [facility] HC COMPLETE BLD COUNT 2020-09-13 15:29:00 [facility] W/AUTO DIFF MAGNESIUM LEVEL 2020-09-13 15:29:[address] [facility] PHOSPHORUS LEVEL 2020-09-13 15:29:00 [facility] URIC ACID LEVEL 2020-09-13 15:29:[address] [facility] LDH 2020-09-13 15:29:[address] [facility] URINALYSIS SCREEN AND 2020-09-13 15:29:00 Juan Klein [facility] MICROSCOPY, WITH REFLEX TO CULTURE CREATININE LEVEL, URINE, 2020-09-13 15:29:00 [facility] RANDOM PROTEIN, URINE, RANDOM 2020-09-13 15:29:00 [facility] COMPREHENSIVE METABOLIC 2020-09-13 15:29:00 Juan Klein [facility] PANEL CYCLOSPORINE LEVEL, 2020-09-13 15:29:00 Juan Klein [facility] RANDOM PARATHYROID HORMONE 2020-09-13 15:29:00 [facility] VIT[facility] D 25 HYDROXY 2020-09-13 15:29:00 Juan Klein [facility] LEVEL ESTIMATED GFR 2020-09-13 15:29:[address] [facility] SMEAR REVIEW 2020-09-13 15:29:[address] [facility] URINE CULTURE 2020-09-03 13:21:[address] [facility] HC COMPLETE BLD COUNT 2020-09-03 13:21:00 Ernie [facility] W/AUTO DIFF MAGNESIUM LEVEL 2020-09-03 13:21:[address] [facility] PHOSPHORUS LEVEL 2020-09-03 13:21:00 Juan Klein [facility] URIC ACID LEVEL 2020-09-03 13:21:[address] [facility] LDH 2020-09-03 13:21:[address] [facility] URINALYSIS SCREEN AND 2020-09-03 13:21:00 Ernie [facility] MICROSCOPY, WITH REFLEX TO CULTURE CREATININE LEVEL, URINE, 2020-09-03 13:21:00 [facility] RANDOM PROTEIN, URINE, RANDOM 2020-09-03 13:21:00 Ernie [facility] COMPREHENSIVE METABOLIC 2020-09-03 13:21:00 Juan Klein [facility] PANEL CYCLOSPORINE LEVEL, 2020-09-03 13:21:00 [facility] RANDOM PARATHYROID HORMONE 2020-09-03 13:21:00 [facility] VITAMIN D 25 HYDROXY 2020-09-03 13:21:00 [facility] LEVEL ESTIMATED GFR 2020-09-03 13:21:00 [facility] URINE CULTURE 2020-06-06 15:13:00 [facility] COMPREHENSIVE METABOLIC 2020-06-06 15:13:00 [facility] PANEL HC COMPLETE BLD COUNT 2020-06-06 15:13:00 [facility] W/AUTO DIFF MAGNESIUM LEVEL 2020-06-06 15:13:00 [facility] PHOSPHORUS LEVEL 2020-06-06 15:13:00 [facility] URIC ACID LEVEL 2020-06-06 15:13:00 [facility] LDH 2020-06-06 15:13:00 [facility] URINALYSIS SCREEN AND 2020-06-06 15:13:00 [facility] MICROSCOPY, WITH REFLEX TO CULTURE CREATININE LEVEL, URINE, 2020-06-06 15:13:00 [facility] RANDOM CYCLOSPORINE LEVEL, 2020-06-06 15:13:00 [facility] RANDOM PROTEIN, URINE, RANDOM 2020-06-06 15:13:00 [facility] ESTIMATED GFR 2020-06-06 15:13:00 [facility] URINE CULTURE 2020-01-30 12:52:00 [facility] COMPREHENSIVE METABOLIC 2020-01-30 12:52:00 [facility] PANEL HC COMPLETE BLD COUNT 2020-01-30 12:52:00 [facility] W/AUTO DIFF MAGNESIUM LEVEL 2020-01-30 12:52:00 [facility] PHOSPHORUS LEVEL 2020-01-30 12:52:00 [facility]IC [facility]ID LEVEL 2020-01-30 12:52:00 [facility] LDH 2020-01-30 12:52:00 Juan Klein [facility] URINALYSIS SCREEN AND 2020-01-30 12:52:00 Juan Klein [facility] MICROSCOPY, WITH REFLEX TO CULTURE CREATININE LEVEL, URINE, 2020-01-30 12:52:00 Juan Klein [facility] RANDOM PROTEIN, URINE, RANDOM 2020-01-30 12:52:00 Juan Klein [facility] CYCLOSPORINE LEVEL, 2020-01-30 12:52:00 Juan Klein [facility] RANDOM ESTIMATED GFR 2020-01-30 12:52:00 Juan [facility] Plan of Care Planned Activity Planned Date Details Comments Source Future Scheduled 2022-07-17 COLONOSCOPY SCREENING [facility] Test 02:57:42 [code = COLONOSCOPY SCREENING] Future Scheduled 2022-07-17 SHINGLES VACCINES (1 Met [facility] Test 02:57:42 of 2) [code = SHINGLES VACCINES (1 of 2)] Future Scheduled 2022-07-17 COVID-19 VACCINE (2 - [facility] Test 02:57:42 Moderna series) [code = COVID-19 VACCINE (2 - Moderna series)] Future Scheduled 2022-07-17 INFLUENZA VACCINE [facility] Test 02:57:42 [code = INFLUENZA VACCINE] Future Scheduled 2022-06-18 COLONOSCOPY SCREENING [facility] Test 14:06:44 [code = COLONOSCOPY SCREENING] Future Scheduled 2022-06-18 SHINGLES VACCINES (1 [facility] Test 14:06:44 of 2) [code = SHINGLES VACCINES (1 of 2)] Future Scheduled 2022-06-18 COVID-19 VACCINE (2 - [facility] Test 14:06:44 Moderna series) [code = COVID-19 VACCINE (2 - Moderna series)] Future Scheduled 2022-06-18 INFLUENZA VACCINE [facility] Test 14:06:44 [code = INFLUENZA VACCINE] Future Scheduled 2022-03-26 [facility]ING [facility] Test 23:31:27 [code = COLONOSCOPY SCREENING] Future Scheduled 2022-03-26 SHINGLES VACCINES (1 Met [facility] Test 23:31:27 of 2) [code = SHINGLES VACCINES (1 of 2)] Future Scheduled 2022-03-26 COVID-19 VACCINE (2 - [facility] Test 23:31:27 Moderna series) [code = COVID-19 VACCINE (2 - Moderna series)] Future Scheduled 2022-03-26 INFLUENZA VACCINE Method [facility] Test 23:31:27 [code = INFLUENZA VACCINE] Future Scheduled 2022-02-07 HEPATITIS B VACCINES Met [facility] Test 08:46:41 (1 of 3 - 3-dose series) [code = HEPATITIS B VACCINES (1 of 3 - 3-dose series)] Future Scheduled 2022-02-07 Pneumococcal Vaccine: [facility] Test 08:46:41 Pediatrics (0 to 5 Years) and At-Risk Patients (6 to 64 Years) (1 - PCV) [code = Pneumococcal Vaccine: Pediatrics (0 to 5 Years) and At-Risk Patients (6 to 64 Years) (1 - PCV)] Future Scheduled 2022-02-07 Hepatitis C screening [facility] Test 08:46:41 (procedure) [code = 766680847] Future Scheduled 2022-02-07 SHINGLES VACCINES (1 Met [facility] Test 08:46:41 of 2) [code = SHINGLES VACCINES (1 of 2)] Future Scheduled 2022-02-07 COLONOSCOPY SCREENING [facility] Test 08:46:41 [code = COLONOSCOPY SCREENING] Future Scheduled 2022-02-07 COVID-19 VACCINE (2 - [facility] Test 08:46:41 Moderna risk series) [code = COVID-19 VACCINE (2 - Moderna risk series)] Future Scheduled 2022-02-07 INFLUENZA VACCINE Method [facility] Test 08:46:41 [code = INFLUENZA VACCINE] Future Scheduled 2021-04-15 Hepatitis C screening [facility] Test 08:27:26 (procedure) [code = 371575863] Future Scheduled 2021-04-15 COLONOSCOPY SCREENING [facility] Test 08:27:26 [code = COLONOSCOPY SCREENING] Future Scheduled 2021-04-15 SHINGLES VACCINES (#1) M [facility] Test 08:27:26 [code = SHINGLES VACCINES (#1)] Future Scheduled 2021-04-15 COVID-19 VACCINE (2 - [facility] Test 08:27:26 Moderna risk 4-dose series) [code = COVID-19 VACCINE (2 - Moderna risk 4-dose series)] Future Scheduled 2021-04-15 INFLUENZA VACCINE [facility] Test 08:27:26 [code = INFLUENZA VACCINE] Future Scheduled COVID-19 VACCINE (1) Met [facility] Test [code = COVID-19 VACCINE (1)] Future Scheduled Hepatitis C screening [facility] Test (procedure) [code = 111264982] Future Scheduled COLONOSCOPY SCREENING [facility] Test [code = COLONOSCOPY SCREENING] Future Scheduled SHINGLES VACCINES (#1) [facility] Test [code = SHINGLES VACCINES (#1)] Future Scheduled INFLUENZA VACCINE [facility] Test [code = INFLUENZA VACCINE] Encounters Start End Encounter Admission Attending Care Care Encounter Source Date/Time Date/Time Type Type Clinicians Facility Department ID 2022-08-15 2022-08-15 [id number] [facility] 00:00:00 00:00:00 [id number] Medica l Group 2022-08-15 2022-08-15 Outpatient Ogbechie_L [facility] [id number] Devoted 00:00:00 00:00:00 [id number] Medica l Group 2022-08-15 2022-08-15 Outpatient Ogbechie_L [facility] [id number] Devoted 00:00:00 00:00:00 [id number] Medica l Group 2022-07-11 2022-07-11 CAV [facility] [id number]. 2.16.840.1. CLAC [id number] [facility]oted 20:00:00 21:00:00 Ogbechie [id number]. [id number] Medical [id number] 2022-06-24 2022-06-24 Outpatient Ogbechie_L [facility] [id number] Devoted 00:00:00 00:00:00 [id number] Medica l Group 2022-06-05 2022-06-05 Lab Ernie, 1.2.840.1 [id number] 2099 [id number] Methodi 09:25:00 09:30:[address] 3.430.2.7 Hospit a .3.942175 l .8 2022-06-05 2022-06-05 Lab Juan Klein Manuel 1.2.840.1 [id number] Methodi 09:25:00 09:30:00 [address]Guzman Raphael [address] 3.430.2.7 Hospit a .3.999896 l .8 2022-06-05 2022-06-05 Travel 1.2.840.1 1.2.076.313 1005 [id number] Methodi 00:00:00 00:00:[address] 3.430.2.7 0.2.7.3.698 Ho spita .3.462276 084.8 l .8 2022-06-05 2022-06-05 Travel 1.2.840.1 1.2.410.301 2245 [id number] Methodi 00:00:00 00:00:[address] 3.430.2.7 0.2.7.3.698 Ho spita .3.163322 084.8 l .8 2022 2022 Outpatient [facility] [id number] Devoted 00:00:00 00:00:00 [id number] Medica l Group 2022-01-30 2022-01-30 Lab Ernie, 1.2.840.1 [id number] 2099 [id number] Methodi 07:00:00 07:05:00 Juan Dominguez 99909.1.[address] 3.430.2.7 Hospit a .3.382716 l .8 2022-01-30 2022-01-30 Lab Ernie, 1.2.840.1 [id number] 2099 [id number] Methodi 07:00:00 07:05:00 Juan Dominguez 81344.1.[address] 3.430.2.7 Hospit a .3.733820 l .8 2022-01-30 2022-01-30 Lab Ernie, 1.2.840.1 [id number] 2099 [id number] Methodi 06:00:00 06:05:00 Juan Dominguez [address]76.1.[address] 3.430.2.7 Hospit a .3.061600 l .8 2022-01-30 2022-01-30 Lab Ernie, 1.2.840.1 [id number] 2100 [id number] Methodi 06:00:00 06:05:00 Juan Dominguez 61411.1.[address] 3.430.2.7 Hospit a .3.209385 l .8 2022-01-30 2022-01-30 Travel 1.2.840.1 1.2.194.484 7736 [id number] Methodi 00:00:00 00:00:[address] 3.430.2.7 0.2.7.3.698 Ho spita .3.225951 084.8 l .8 2022-01-30 2022-01-30 Travel 1.2.840.1 1.2.641.252 6354 [id number] Methodi 00:00:00 00:00:[address] 3.430.2.7 0.2.7.3.698 Ho spita .3.227517 084.8 l .8 2021-09-05 2021-09-05 Lab Ernie, 1.2.840.1 [id number] Methodi 06:25:00 06:30:00 Juan Dominguez 70666.1.[address] 3.430.2.7 Hospit a .3.295430 l .8 2021-09-05 2021-09-05 Lab Ernie, 1.2.840.1 [id number] 2099 [id number] Methodi 06:25:00 06:30:[address] 3.430.2.7 Hospit a .3.968163 l .8 2021-09-05 2021-09-05 Travel 1.2.840.1 1.2.331.259 9503 [id number] Methodi 00:00:00 00:00:[address] 3.430.2.7 0.2.7.3.698 Ho spita .3.563876 084.8 l .8 2021-09-05 2021-09-05 Travel 1.2.840.1 1.2.985.996 1033 [id number] Methodi 00:00:00 00:00:[address] 3.430.2.7 0.2.7.3.698 Ho spita .3.295492 084.8 l .8 2021-04-15 2021-04-15 Lab Ernie, 1.2.840.1 [id number] 2099 [id number] Methodi 06:10:00 06:15:[address] 3.430.2.7 Hospit a .3.929016 l .8 2021-04-15 2021-04-15 Travel 1.2.840.1 1.2.867.093 0385 [id number] Methodi 00:00:00 00:00:[address] 3.430.2.7 0.2.7.3.698 Ho spita .3.380911 084.8 l .8 2021-03-18 2021-03-18 Lab Ernie, 1.2.840.1 [id number] 2099 [id number] Methodi 06:20:00 06:25:[address] 3.430.2.7 Hospit a .3.467233 l .8 2021-03-18 2021-03-18 Travel 1.2.840.1 1.2.142.853 9683 [id number] Methodi 00:00:00 00:00:[address] 3.430.2.7 0.2.7.3.698 Ho spita .3.445296 084.8 l .8 2021-03-11 2021-03-11 Lab Ernie, 1.2.840.1 [id number] 2099 [id number] Methodi 09:00:00 09:05:00 Juan Dominguez 53984.1.[address] 3.430.2.7 Hospit a .3.485175 l .8 2021-03-11 2021-03-11 Travel 1.2.840.1 1.2.698.076 9891 [id number] Methodi 00:00:00 00:00:[address] 3.430.2.7 0.2.7.3.698 Ho spita .3.844708 084.8 l .8 2021-02-28 2021-02-28 Lab Leanne, 1.2.840.1 [id number] Methodi 08:20:00 08:25:00 Micheal Covarrubias [address]69.1.[address] 3.430.2.7 Hospit a .3.432097 l .8 2021-02-28 2021-02-28 Travel 1.2.840.1 1.2.897.582 2087 [id number] Methodi 00:00:00 00:00:[address] 3.430.2.7 0.2.7.3.698 Ho spita .3.052968 084.8 l .8 2021-02-25 2021-02-25 Travel 1.2.840.1 1.2.033.789 0319 [id number] Methodi 00:00:00 00:00:[address] 3.430.2.7 0.2.7.3.698 Ho spita .3.987800 084.8 l .8 2020-11-26 2020-11-26 Lab Ernie, 1.2.840.1 [id number] 2099 [id number] Methodi 08:48:26 08:53:26 Juan Dominguez 93865.1.[address] 3.430.2.7 Hospit a .3.453074 l .8 2020-11-26 2020-11-26 Travel 1.2.840.1 1.2.536.127 7001 232148 Methodi 00:00:00 00:00:[address] 3.430.2.7 0.2.7.3.698 Ho spita .3.794150 084.8 l .8 2020-11-15 2020-11-15 Travel 1.2.840.1 1.2.236.387 4161 [id number] Methodi 00:00:00 00:00:[address] 3.430.2.7 0.2.7.3.698 Ho spita .3.349733 084.8 l .8 2020-09-13 2020-09-13 Lab Ernie, 1.2.840.1 [id number] Methodi 10:07:34 10:12:34 Juan Dominguez 34816.1.[address] 3.430.2.7 Hospit a .3.898994 l .8 2020-09-13 2020-09-13 Travel 1.2.840.1 1.2.124.284 4058 140350 Methodi 00:00:00 00:00:[address] 3.430.2.7 0.2.7.3.698 Ho spita .3.607187 084.8 l .8 2020-09-03 2020-09-03 Lab Ernie, 1.2.840.1 [id number] Methodi 07:58:11 08:03:11 Juan Dominguez 77000.1.[address] 3.430.2.7 Hospit a .3.994757 l .8 2020-09-03 2020-09-03 Travel 1.2.840.1 1.2.284.188 5520 101169 Methodi 00:00:00 00:00:[address] 3.430.2.7 0.2.7.3.698 Ho spita .3.388930 084.8 l .8 2020-08-29 2020-08-29 Travel 1.2.840.1 1.2.126.419 5759 044094 Methodi 00:00:00 00:00:[address] 3.430.2.7 0.2.7.3.698 Ho spita .3.480622 084.8 l .8 2020-08-13 2020-08-13 Travel 1.2.840.1 1.2.270.850 7119 635761 Methodi 00:00:00 00:00:[address] 3.430.2.7 0.2.7.3.698 Ho spita .3.414307 084.8 l .8 2020-07-30 2020-07-30 Travel 1.2.840.1 1.2.127.261 7747 916953 Methodi 00:00:00 00:00:[address] 3.430.2.7 0.2.7.3.698 Ho spita .3.327886 084.8 l .8 2020-06-07 2020-06-07 Lab Leanne, 1.2.840.1 [id number] 9451 Methodi 07:23:50 07:28:50 Micheal Covarrubias [address]354.1.[address] 3.430.2.7 Hospit a .3.207608 l .8 2020-06-06 2020-06-06 Travel 1.2.840.1 1.2.610.278 2507 178381 Methodi 00:00:00 00:00:[address] 3.430.2.7 0.2.7.3.698 Ho spita .3.711428 084.8 l .8 2020-03-18 2020-03-18 Telephone WINSTON Heard 1.2.466.801 0056 8754 00:00:00 00:00:00 Gabriela TARIQ 350.1.13.10 [facility] 4.2.7.2.686 [id number] 019 2020-03-18 2020-03-18 Telephone WINSTON Heard 1.2.849.472 8361 8754 Univers 00:00:00 00:00:00 Gabriela TARIQ 350.1.13.10 i ty [facility] 4.2.7.2.686 [place] [id number] [address] 2020-03-16 2020-03-16 Laboratory Only, [facility] 1.2.840.114 [id number] 15:00:29 15:15:29 Only Test [place] 350.1.13.10 [place] 4.2.7.2.686 [place] 142.3757031 353 2020-03-16 2020-03-16 Laboratory Only, [facility] Test [facility] 1.2.840. 114 [id number] Univers 15:00:29 15:15:29 Only [facility]686 [facility] [id number] [address] 2020-03-16 2020-03-16 Outpatient R JAZLYN [facility] [id number] Univers 15:15:00 15:15:00 TAY gant [facility] 2020-01-30 2020-01-30 Lab Ernie 1.2.840.1 [id number] 2100 [id number] Methodi 04:42:28 04:47:28 Juan Covarrubias 89298.1.[address] 3.430.2.7 Hospit a .3.783370 l .8 2020-01-30 2020-01-30 Travel 1.2.840.1 1.2.936.905 5855 [id number] Methodi 00:00:00 00:00:[address] 3.430.2.7 0.2.7.3.698 Ho spita .3.326212 084.8 l .8 2020-01-23 2020-01-23 Lab Ernie, 1.2.840.1 [id number] 2099 [id number] Methodi 04:55:00 05:00:00 Juan Covarrubias 80569.1.[address] 3.430.2.7 Hospit a .3.199896 l .8 2020-01-23 2020-01-23 Travel 1.2.840.1 1.2.608.862 9268 [id number] Methodi 00:00:00 00:00:[address] 3.430.2.7 0.2.7.3.698 Ho spita .3.910858 084.8 l .8 2020-01-09 2020-01-09 Lab Ernie, 1.2.840.1 [id number] 2099 [id number] Methodi 05:05:00 05:10:00 Juan Covarrubias 35006.1.[address] 3.430.2.7 Hospit a .3.063624 l .8 2020-01-09 2020-01-09 Travel 1.2.840.1 1.2.024.234 4682 [id number] Methodi 00:00:00 00:00:[address] 3.430.2.7 0.2.7.3.698 Ho spita .3.099377 084.8 l .8 2019-07-04 2019-07-04 Outpatient Usha FABIAN [facility] [id number] [place] 00:00:00 00:00:[address] Results Test Description Test Time Test Comments Results Result Comments Source Creatinine level, urine, random 2022-06-05 17:00:00 Test Item Value Reference Range Interpretation Comme nts Creatinine, urine (mg/dL) (test code = 44731-6) 179 [facility]dL [facility], [id number] 17:00:00 Test Item Value Reference Range Interpretation Comments Protein, urine random (test code = 90 mg/dL 2888-6) [facility], [id number] 17:00:00 Test Item Value Reference Range Interpretation Comments Creatinine, urine (mg/dL) (test 179 mg/dL code = 97972-1) [facility], [id number] 17:00:00 Test Item Value Reference Range Interpretation Comments Protein, urine random (test code = 90 mg/dL 2888-6) [facility], automated with [id number] 16:47:00 Test Item Value Reference Range Interpretation Comments Color, UA (test code = Yellow 5778-6) Appearance, UA (test Clear code = 5767-9) Specific gravity, UA 1.025 1.001-1.035 (test code = 5811-5) pH, UA (test code = 6.0 5.0-8.5 5803-2) Protein, UA (test code = 2+ Negative A 80064-8) Glucose, UA (test code = 3+ Negative A 73929-6) Ketones, UA (test code = Negative Negative 2514-8) Bilirubin, UA (test code Negative Negative = 5770-3) Blood, UA (test code = Moderate Negative A 5794-3) Nitrite, UA (test code = Negative Negative 5802-4) Urobilinogen, UA (test <2.0 <=2.0 code = 88263-0) Leukocyte esterase, UA Negative Negative (test code = 5799-2) WBC, UA (test code = See_Comment [Autom ated message] 5821-4) The system [employer] generated this result transmit dirk reference range : 0 - 1 /HPF. The reference range was not used to interpret this result as normal/abnormal . RBC, UA (test code = 3 See_Comment [Autom ated message] 68681-6) The system [employer] generated this result transmit dirk reference range : 0 - 5 /HPF. The reference range was not used to interpret this result as normal/abnormal . Bacteria, UA (test code None seen None seen = 12271-9) Yeast, UA (test code = None seen 10325-1) Yeast with pseudohyphae, None seen UA (test code = 92507-9) Lab Interpretation (test Abnormal code = 21848-5) [facility] with [id number] 16:47:00 Test Item Value Reference Range Interpretation Comments Color, UA (test code = Yellow 5778-6) Appearance, UA (test Clear code = 5767-9) Specific gravity, UA 1.025 1.001-1.035 (test code = 5811-5) pH, UA (test code = 6.0 5.0-8.5 5803-2) Protein, UA (test code = 2+ Negative A 36574-9) Glucose, UA (test code = 3+ Negative A 56612-1) Ketones, UA (test code = Negative Negative 2514-8) Bilirubin, UA (test code Negative Negative = 5770-3) Blood, UA (test code = Moderate Negative A 5794-3) Nitrite, UA (test code = Negative Negative 5802-4) Urobilinogen, UA (test <2.0 <=2.0 code = 79917-1) Leukocyte esterase, UA Negative Negative (test code = 5799-2) WBC, UA (test code = See_Comment [Autom ated message] 5821-4) The system [employer] generated this result transmit dirk reference range : 0 - 1 /HPF. The reference range was not used to interpret this result as normal/abnormal . RBC, UA (test code = 3 See_Comment [Autom ated message] 46798-3) The system [employer] generated this result transmit dirk reference range : 0 - 5 /HPF. The reference range was not used to interpret this result as normal/abnormal . Bacteria, UA (test code None seen None seen = 48637-5) Yeast, UA (test code = None seen 71483-6) Yeast with pseudohyphae, None seen UA (test code = 99991-3) Lab Interpretation (test Abnormal code = 88773-0) [facility], [id number] 15:44:00 Test Item Value Reference Range Interpretation Comments Creatinine, urine (mg/dL) (test 110 mg/dL code = 30929-0) [facility] [id number] 15:44:00 Test Item Value Reference Range Interpretation Comments Protein, urine random (test code = 67 mg/dL 2888-6) [facility], [id number] 15:44:00 Test Item Value Reference Range Interpretation Comments Creatinine, urine (mg/dL) (test 110 mg/dL code = 67205-6) [facility], [id number] 15:44:00 Test Item Value Reference Range Interpretation Comments Protein, urine random (test code = 67 mg/dL 2888-6) [facility], with reflex to culture 2022-01-30 15:43:00 Test Item Value Reference Range Interpretation Comments Specimen site (test Clean catch code = 2315819) Color, UA (test code = Yellow 5778-6) Appearance, UA (test Clear code = 5767-9) Specific gravity, UA 1.001-1.035 (test code = 5811-5) pH, UA (test code = 5.0-8.5 5803-2) Protein, UA (test code 2+ Negative A = 09564-5) Glucose, UA (test code 3+ Negative A = 84708-3) Ketones, UA (test code Negative Negative = 2514-8) Bilirubin, UA (test Negative Negative code = 5770-3) Blood, UA (test code = Small Negative A 5794-3) Nitrite, UA (test code Negative Negative = 5802-4) Urobilinogen, UA (test <2.0 See_Comment [Aut omated code = 07946-7) message] The system which generated this result [...] (test code = <1 See_Comment [Autom ated 04640-5) message] The sy stem which generated this result transmitted reference range : 0 - 5 /HPF. The reference range was not used to interpret this result as normal/abnormal . Bacteria, UA (test code None seen None seen = 92012-0) Yeast, UA (test code = None seen 93000-4) Yeast with None seen pseudohyphae, UA (test code = 17557-5) Lab Interpretation Abnormal (test code = 44151-2) [facility], [facility] reflex to culture 2022-01-30 15:43:00 Test Item Value Reference Range Interpretation Comments Specimen site (test Clean catch code = 3569269) Color, UA (test code = Yellow 5778-6) Appearance, UA (test Clear code = 5767-9) Specific gravity, UA 1.001-1.035 (test code = 5811-5) pH, UA (test code = 5.0-8.5 5803-2) Protein, UA (test code 2+ Negative A = 31727-6) Glucose, UA (test code 3+ Negative A = 77720-6) Ketones, UA (test code Negative Negative = 2514-8) Bilirubin, UA (test Negative Negative code = 5770-3) Blood, UA (test code = Small Negative A 5794-3) Nitrite, UA (test code Negative Negative = 5802-4) Urobilinogen, UA (test <2.0 See_Comment [Aut omated code = 80423-4) message] The system which generated this result [...] (test code = <1 See_Comment [Autom ated 72846-4) message] The sy stem which generated this result transmitted reference range : 0 - 5 /HPF. The reference range was not used to interpret this result as normal/abnormal . Bacteria, UA (test code None seen None seen = 85958-7) Yeast, UA (test code = None seen 73960-8) Yeast with None seen pseudohyphae, UA (test code = 40270-5) Lab Interpretation Abnormal (test code = 65929-0) [facility], with reflex to culture 2022-01-30 15:43:00 Test Item Value Reference Range Interpretation Comments Specimen site (test Clean catch code = 6040076) Color, UA (test code = Yellow 5778-6) Appearance, UA (test Clear code = 5767-9) Specific gravity, UA 1.020 1.001-1.035 (test code = 5811-5) pH, UA (test code = 6.0 5.0-8.5 5803-2) Protein, UA (test code 2+ Negative A = 27276-5) Glucose, UA (test code 3+ Negative A = 84066-0) Ketones, UA (test code Negative Negative = 2514-8) Bilirubin, UA (test Negative Negative code = 5770-3) Blood, UA (test code = Small Negative A 5794-3) Nitrite, UA (test code Negative Negative = 5802-4) Urobilinogen, UA (test <2.0 <=2.0 code = 78708-7) Leukocyte esterase, UA Negative Negative (test code = 5799-2) WBC, UA (test code = None seen See_Comment [Autom ated 5821-4) message] The sy stem which generated this result transmitted reference range : 0 - 1 /HPF. The reference range was not used to interpret this result as normal/abnormal . RBC, UA (test code = <1 See_Comment [Autom ated 56418-0) message] The sy stem which generated this result transmitted reference range : 0 - 5 /HPF. The reference range was not used to interpret this result as normal/abnormal . Bacteria, UA (test code None seen None seen = 49421-4) Yeast, UA (test code = None seen 48358-7) Yeast with None seen pseudohyphae, UA (test code = 77873-6) Lab Interpretation Abnormal (test code = 06784-8) [facility] with reflex to culture 2022-01-30 15:43:00 Test Item Value Reference Range Interpretation Comments Specimen site (test Clean catch code = 3460372) Color, UA (test code = Yellow 5778-6) Appearance, UA (test Clear code = 5767-9) Specific gravity, UA 1.020 1.001-1.035 (test code = 5811-5) pH, UA (test code = 6.0 5.0-8.5 5803-2) Protein, UA (test code 2+ Negative A = 62614-2) Glucose, UA (test code 3+ Negative A = 96547-9) Ketones, UA (test code Negative Negative = 2514-8) Bilirubin, UA (test Negative Negative code = 5770-3) Blood, UA (test code = Small Negative A 5794-3) Nitrite, UA (test code Negative Negative = 5802-4) Urobilinogen, UA (test <2.0 <=2.0 code = 09602-3) Leukocyte esterase, UA Negative Negative (test code = 5799-2) WBC, UA (test code = None seen See_Comment [Autom ated 5821-4) message] The sy stem which generated this result transmitted reference range : 0 - 1 /HPF. The reference range was not used to interpret this result as normal/abnormal . RBC, UA (test code = <1 See_Comment [Autom ated 83373-9) message] The sy stem which generated this result transmitted reference range : 0 - 5 /HPF. The reference range was not used to interpret this result as normal/abnormal . Bacteria, UA (test code None seen None seen = 94259-4) Yeast, UA (test code = None seen 73569-4) Yeast with None seen pseudohyphae, UA (test code = 64437-1) Lab Interpretation Abnormal (test code = 74924-6) [facility] [id number] 15:35:00 Test Item Value Reference Range Interpretation Comments Urine culture (test SEE COMMENT Bacteriu deandre screen code = 2839123) negative. [facility] [id number] 15:35:00 Test Item Value Reference Range Interpretation Comments Urine culture (test SEE COMMENT Bacteriu deandre screen code = 9542149) negative. [facility] [id number] 15:35:00 Test Item Value Reference Range Interpretation Comments Urine culture (test SEE COMMENT Bacteriu deandre screen code = 5914702) negative. [facility] [id number] 15:35:00 Test Item Value Reference Range Interpretation Comments Urine culture (test SEE COMMENT Bacteriu deandre screen code = 6358497) negative. [facility], [id number] 17:11:47 Test Item Value Reference Range Interpretation Comments Creatinine, urine (mg/dL) (test 121 mg/dL code = 04226-5) [facility], [id number] 17:11:47 Test Item Value Reference Range Interpretation Comments Protein, urine random (test code = 161 mg/dL 2888-6) [facility] [id number] 15:53:04 Test Item Value Reference Range Interpretation Comments Urine culture (test SEE COMMENT Bacteriu deandre screen code = 5575224) negative. [facility], with reflex to culture 2021-04-15 15:53:03 Test Item Value Reference Range Interpretation Comments Specimen site (test Clean catch code = 0083781) Color, UA (test code = Straw 5778-6) Appearance, UA (test Clear code = 5767-9) Specific gravity, UA 1.001-1.035 (test code = 5811-5) pH, UA (test code = 5.0-8.5 5803-2) Protein, UA (test code 2+ Negative A = 57607-4) Glucose, UA (test code 3+ Negative A = 63312-7) Ketones, UA (test code Negative Negative = 2514-8) Bilirubin, UA (test Negative Negative code = 5770-3) Blood, UA (test code = Moderate Negative A 5794-3) Nitrite, UA (test code Negative Negative = 5802-4) Urobilinogen, UA (test <2.0 <2.0 code = 20240-4) Leukocyte esterase, UA Negative Negative (test code = 5799-2) WBC, UA (test code = See_Comment [Autom ated 5821-4) message] The sy stem which generated this result transmitted reference range : 0 - 1 /HPF. The reference range was not used to interpret this result as normal/abnormal . RBC, UA (test code = See_Comment [Autom ated 34085-9) message] The sy stem which generated this result transmitted reference range : 0 - 5 /HPF. The reference range was not used to interpret this result as normal/abnormal . Bacteria, UA (test code None seen None seen = 66219-5) Yeast, UA (test code = None seen 86610-5) Yeast with None seen pseudohyphae, UA (test code = 88586-8) Lab Interpretation Abnormal (test code = 84966-2) [facility], [id number] 21:24:19 Test Item Value Reference Range Interpretation Comments Protein, urine random (test code = 484 mg/dL 2888-6) [facility], [id number] 16:47:21 Test Item Value Reference Range Interpretation Comments Creatinine, urine, random (test 201 mg/dL code = 80246-0) [facility], with reflex to culture 2020-11-26 15:18:17 Test Item Value Reference Range Interpretation Comments Specimen site (test Clean catch code = 6964997) Color, UA (test code = Yellow 5778-6) Appearance, UA (test Clear code = 5767-9) Specific gravity, UA 1.001-1.035 (test code = 5811-5) pH, UA (test code = 5.0-8.5 5803-2) Protein, UA (test code 3+ Negative A = 24078-8) Glucose, UA (test code 1+ Negative A = 63849-8) Ketones, UA (test code Negative Negative = 2514-8) Bilirubin, UA (test Negative Negative code = 5770-3) Blood, UA (test code = Moderate Negative A 5794-3) Nitrite, UA (test code Negative Negative = 5802-4) Urobilinogen, UA (test <2.0 <2.0 code = 72010-4) Leukocyte esterase, UA Negative Negative (test code = 5799-2) WBC, UA (test code = See_Comment [Autom ated 5821-4) message] The sy stem which generated this result transmitted reference range : 0 - 1 /HPF. The reference range was not used to interpret this result as normal/abnormal . RBC, UA (test code = See_Comment H [Autom ated 83621-1) message] The sy stem which generated this result transmitted reference range : 0 - 5 /HPF. The reference range was not used to interpret this result as normal/abnormal . Bacteria, UA (test code None seen None seen = 91196-8) Yeast, UA (test code = None seen 31099-3) Yeast with None seen pseudohyphae, UA (test code = 63841-4) Hyaline casts, UA (test See_Comment [Au tomated code = 5796-8) message] The system which generated this result transmitted reference range : /LPF. The refer ence range was not u sed to interpret th is result as normal/abnormal . Lab Interpretation Abnormal (test code = 88176-1) [facility] [id number] 14:41:27 Test Item Value Reference Range Interpretation Comments Urine culture (test SEE COMMENT Bacteriu deandre screen code = 1415426) negative. [facility])2019-09-17 04:32:00 Test Item Value Reference Range Interpretation Comments SARS-COV2/RT-PCR (test Not Detected Not Detected, Negative code = 7889931) SARS-COV-[address] [facility] (test code = 2937060) Negative results do not preclude SARS-CoV-2 infection [...] of the Act.Fact Sheet for Healthcare Pro viders:https://www.[employer].com/Documents/Xpert%20Xpress%20SARS%20CoV-2/Fact%20Sh eets/302-1972%31QXZD-NYG-0%20HEALTHCARE%20PROVIDERS%20FACT%20SHEET.pdfFact Sheet for Healthcare Patients:https://www.[employer]/Documents/Xpert%20Xpress%20SARS%20CoV-2/Fact%20Sheets/3023801%20SARS-COV -2%20PATIENT%20FACT%20SHEET.pdfPerforming Laboratory:[facility] [place] [address]
--- NOTE | 2022-08-25 16:02 | RAD REPORT ---
EXAM DESCRIPTION: US - Extremity Venous Uni Ltd - 08/25/2022 3:42 pm CLINICAL HISTORY: Pain;Swelling Leg swelling and edema. COMPARISON: Extremity Venous Uni Ltd dated 06/20/2022 FINDINGS: Left lower extremity venous system was interrogated with Doppler technique. Mild chronic t hrombus in the popliteal vein. Elsewhere, no DVT evident. IMPRESSION: Mild chronic thrombus left popliteal vein. No DVT elsewhere identified.
[2022-08-25] MEDS ORDERED: MORPHINE 2 MG/ML SYR ONE (16:28)
[2022-08-25] MEDS ORDERED: KETOROLAC 30 MG/ML INJ ONE (16:29)
[2022-08-25] MEDS ORDERED: MORPHINE 4 MG/ML SYR ONE (16:29)
--- NOTE | 2022-08-25 17:00 | ER ---
Nurse's Notes [facility] Name: Shoaib Freitas Jr Age: 57 yrs Sex: Male : 1965 Arrival Date: 08/25/2022 Time: 14:51 Bed 17 Private MD: Diagnosis: Chronic embolism and thrombosis of unspecified deep veins of left lower extremity;Pain in left lower leg Presentation: 08/25 15:48 Chief complaint: Patient states: swelling and pain to left leg, ankle and foot for past ko1 two days. Coronavirus screen: At this time, the client does not indicate any symptoms associated with coronavirus-19. Ebola Screen: No symptoms or risks identified at this time. Initial Sepsis Screen: Does the patient meet any 2 criteria? No. Patient's initial sepsis screen is negative. Does the patient have a suspected source of infection? No. Patient's initial sepsis screen is negative. Risk Assessment: Do you want to hurt yourself or someone else? Patient reports no desire to harm self or others. Onset of symptoms was August 23, 2022 at 07:00. 15:48 Method Of Arrival: Ambulatory ko1 15:48 Acuity: COBY 3 ko1 Triage Assessment: 15:51 General: Appears in no apparent distress. comfortable, Behavior is calm, cooperative, ko1 appropriate for age. Pain: Complains of pain in left leg. Historical: - Allergies: 15:51 No Known Allergies; ko1 - Home Meds: 15:51 CellCept Oral [Active]; diltiazem HCl 240 mg Oral cpER 1 cap once daily for ko1 Hypertension [Active]; prednisone 5 mg Oral tab once daily [Active]; valsartan 40 mg Oral tab 1 tab once daily for Hypertension [Active]; 16:55 Xarelto 20 mg oral tablet once [Active]; db - PMHx: 15:51 diabetes mellitus; history of dialysis; Gall Stones; Hypertension; kidney transplant; ko1 Pancreatitis; - PSHx: 15:51 kidney transplant; ko1 - Immunization history:: Adult Immunizations up to date. - Social history:: Smoking status: Patient denies any tobacco usage or history of. Screenin:33 [facility] ED Fall Risk Assessment (Adult) History of falling in the last 3 months, db including since admission No falls in past 3 months (0 pts) Confusion or Disorientation No (0 pts) Intoxicated or Sedated No (0 pts) Impaired Gait No (0 pts) Mobility Assist Device Used No (0 pt) Altered Elimination No (0 pt) Score/Fall Risk Level 0 - 2 = Low Risk Oriented to surroundings, Maintained a safe environment. Abuse screen: Denies threats or abuse. Denies injuries from another. Nutritional screening: No deficits noted. Tuberculosis screening: No symptoms or risk factors identified. Assessment: 16:32 Reassessment: Patient appears in no apparent distress at this time. Patient and/or db family updated on plan of care and expected duration. Pain level reassessed. Patient is alert, oriented x 3, equal unlabored respirations, skin warm/dry/pink. left leg pain and swelling. General: Appears in no apparent distress. comfortable, Behavior is calm, cooperative. Neuro: Level of Consciousness is awake, alert, obeys commands, Oriented to person, place, time, situation. Respiratory: Airway is patent Respiratory effort is even, unlabored, Respiratory pattern is regular, symmetrical. Musculoskeletal: Reports pain in left leg. 17:05 Reassessment: Patient appears in no apparent distress at this time. Patient and/or db family updated on plan of care and expected duration. Pain level reassessed. Patient is alert, oriented x 3, equal unlabored respirations, skin warm/dry/pink. Vital Signs: 15:51 BP 160 / 96; Pulse 88; Resp 18; Temp 97.5; Pulse Ox 99% ; Height 5 ft. 11 in. ; ko1 16:23 BP 167 / 97; Pulse 78; Resp 16; Pulse Ox 99% ; db ED Course: 14:52 Patient arrived in ED. rg4 15:09 Vidal Dejesus PA is PHCP. cp 15:09 James Carlin DO is Attending Physician. cp 15:10 Sebas Stephenson MD is Attending Physician. cp 15:43 US Extremity Venous Unilateral Ltd In Process Unspecified. EDMS 15:51 Triage completed. ko1 15:51 Arm band placed on right wrist. Patient placed in an exam room, Patient notified of ko1 wait time. 16:31 Martita Major, RN is Primary Nurse. db 17:05 Patient has correct armband on for positive identification. Bed in low position. Call db light in reach. Side rails up X 1. Pulse ox on. NIBP on. 17:05 No provider procedures requiring assistance completed. Patient did not have IV access db during this emergency room visit. Administered Medications: 16:25 Drug: Ketorolac IM 30 mg Route: IM; Site: right deltoid; db 16:54 Follow up: Response: No adverse reaction db 16:25 Drug: morphine IM 6 mg Route: IM; Site: left deltoid; db 16:54 Follow up: Response: No adverse reaction db Medication: 17:05 VIS not applicable for this client. db Outcome: 17:00 Discharge ordered by . arnaldo 17:17 Discharged to home ambulatory. db 17:17 Condition: stable 17:17 Discharge instructions given to patient, Instructed on discharge instructions, follow up and referral plans. Prescriptions given X 2. 17:25 Patient left the ED. db Signatures: Dispatcher [employer] EDMS Vidal Dejesus PA PA cp Garcia, Rubi rg4 Janey Fonseac, RN RN ko1 Martita Major RN RN db
--- NOTE | 2022-08-25 17:00 | EDPHYS ---
Physician Documentation [facility] Name: Shoaib Freitas Jr Age: 57 yrs Sex: Male : 1965 Arrival Date: 08/25/2022 Time: 14:51 Bed 17 Private MD: ED Physician Sebas Stephenson HPI: 08/25 16:00 This 57 yrs old Black Male presents to ER via Ambulatory with complaints of Leg cp Swelling, Foot Pain. 16:00 The patient presents with pain, that is acute, swelling, tenderness. The complaints cp affect the left lower leg. Context: resulted from an unknown cause, the patient can fully bear weight, the patient is able to ambulate, with moderate difficulty. Onset: The symptoms/episode began/occurred 2 day(s) ago. 16:00 Associated signs and symptoms: Pertinent positives: calf tenderness, swelling, cp Pertinent negatives fever, numbness, warmth, shortness of breath. 16:00 Treatment prior to arrival includes: no previous treatment. cp Historical: - Allergies: 15:51 No Known Allergies; ko1 - Home Meds: 15:51 CellCept Oral [Active]; diltiazem HCl 240 mg Oral cpER 1 cap once daily for ko1 Hypertension [Active]; prednisone 5 mg Oral tab once daily [Active]; valsartan 40 mg Oral tab 1 tab once daily for Hypertension [Active]; 16:55 Xarelto 20 mg oral tablet once [Active]; db - PMHx: 15:51 diabetes mellitus; history of dialysis; Gall Stones; Hypertension; kidney transplant; ko1 Pancreatitis; - PSHx: 15:51 kidney transplant; ko1 - Immunization history:: Adult Immunizations up to date. - Social history:: Smoking status: Patient denies any tobacco usage or history of. ROS: 16:05 Constitutional: Negative for body aches, chills, fever, poor PO intake. cp 16:05 Eyes: Negative for injury, pain, redness, and discharge. cp 16:05 ENT: Negative for drainage from ear(s), ear pain, sore throat, difficulty swallowing, difficulty handling secretions. 16:05 Cardiovascular: Negative for chest pain, palpitations. 16:05 Respiratory: Negative for cough, shortness of breath, wheezing. 16:05 Abdomen/GI: Negative for abdominal pain, nausea, vomiting, and diarrhea. 16:05 Back: Negative for pain at rest, pain with movement. 16:05 MS/extremity: Positive for pain, swelling, tenderness, of the left lower leg, Negative for injury or acute deformity, decreased range of motion, paresthesias. 16:05 Skin: Negative for cellulitis, rash. 16:05 Neuro: Negative for altered mental status, dizziness, headache, syncope, weakness. 16:05 All other systems are negative. Exam: 16:10 Constitutional: The patient appears in no acute distress, alert, awake, cp non-diaphoretic, non-toxic, well developed, well nourished. 16:10 Head/Face: Normocephalic, atraumatic. cp 16:10 Eyes: Periorbital structures: appear normal, Conjunctiva: normal, no exudate, no injection, Sclera: no appreciated abnormality, Lids and lashes: appear normal, bilaterally. 16:10 ENT: External ear(s): are unremarkable, Nose: is normal, Mouth: Lips: moist, Oral mucosa: pink and intact, moist, Posterior pharynx: is normal, airway is patent, no erythema, no exudate. 16:10 Chest/axilla: Inspection: normal. 16:10 Cardiovascular: Rate: normal. 16:10 Respiratory: the patient does not display signs of respiratory distress, Respirations: normal, no use of accessory muscles, no retractions, labored breathing, is not present. 16:10 Abdomen/GI: Exam negative for discomfort, distension, guarding, Inspection: abdomen appears normal. 16:10 Musculoskeletal/extremity: Extremities: noted in the left lower leg: ecchymosis, pain, swelling, tenderness, There is no evidence of erythema, ROM: full active range of motion, in the left knee and left ankle, Perfusion: the extremity is normally perfused throughout, the left leg Sensation intact. Vital Signs: 15:51 BP 160 / 96; Pulse 88; Resp 18; Temp 97.5; Pulse Ox 99% ; Height 5 ft. 11 in. ; ko1 16:23 BP 167 / 97; Pulse 78; Resp 16; Pulse Ox 99% ; db MDM: 15:56 Patient medically screened. cp 16:00 Differential diagnosis: DVT, cellulitis, PAD. cp 17:00 Data reviewed: vital signs, nurses notes, radiologic studies, ultrasound. cp 17:00 Consideration of Admission/Observation Escalation of care including cp admission/observation considered. I considered the following discharge prescriptions or medication management in the emergency department Medications were administered in the Emergency Department. See MAR. Care significantly affected by the following chronic conditions: Diabetes, Hypertension. Counseling: I had a detailed discussion with the patient and/or guardian regarding: the historical points, exam findings, and any diagnostic results supporting the discharge/admit diagnosis, radiology results, to return to the emergency department if symptoms worsen or persist or if there are any questions or concerns that arise at home. Response to treatment: the patient's symptoms have markedly improved after treatment, and as a result, I will discharge patient. 08/25 16:52 Order name: Glucose, Ancillary Testing; Complete Time: 17:01 EDWV 08/25 15:23 Order name: US Extremity Venous Unilateral Ltd; Complete Time: 16:04 cp 08/25 16:04 Interpretation: Report reviewed. cp 08/25 16:38 Order name: Accucheck Blood Glucose; Complete Time: 16:54 cp Administered Medications: 16:25 Drug: Ketorolac IM 30 mg Route: IM; Site: right deltoid; db 16:54 Follow up: Response: No adverse reaction db 16:25 Drug: morphine IM 6 mg Route: IM; Site: left deltoid; db 16:54 Follow up: Response: No adverse reaction db Disposition: 08/26 07:03 Co-signature as Attending Physician, Sebas Stephenson MD I reviewed the patient's care rn provided by the Advanced Practice Provider and agree with the diagnosis and treatment plan. Disposition Summary: 08/25/22 17:00 Discharge Ordered Location: Home cp Problem: new cp Symptoms: have improved cp Condition: Stable cp Diagnosis - Chronic embolism and thrombosis of unspecified deep veins of left lower extremity cp - Pain in left lower leg cp Followup: cp - With: Private Physician - When: 1 - 2 days - Reason: Recheck today's complaints Discharge Instructions: - Discharge Summary Sheet cp - Deep Vein Thrombosis cp - Musculoskeletal Pain cp Forms: - Medication Reconciliation Form cp - Thank You Letter cp - Antibiotic Education cp - Prescription Opioid Use cp Prescriptions: - Diclofenac Sodium 75 mg Oral Tablet Sustained Release - take 1 tablet by ORAL route 2 times per day; 30 tablet; Refills: 0, Product cp Selection Permitted Signatures: Dispatcher [facility] Sebas Stephenson MD MD rn Page, Corey, PA PA cp Oliver, Janey, RN RN ko1 Martita Major, RN RN db
[2022-08-25 17:49] VITALS: TEMP 97.5; O2SAT 99
[2022-08-25 17:50] VITALS: BP 167/97
== END 2022-08-25 17:25 | disposition home or self-care (01) ==
LOC: ER 14:51
DX: I82.502 Chronic embolism and thrombosis of unspecified deep veins of left lower extremity (principal); I10 Essential (primary) hypertension; E11.9 Type 2 diabetes mellitus without complications; Z79.01 Long term (current) use of anticoagulants; Z79.899 Other long term (current) drug therapy; Z94.0 Kidney transplant status
CPT/HCPCS: 82947; 93971; 96372; 99284; J2270

== ENCOUNTER 2022-10-21 08:03 | Emergency (ER) | payer MEDICARE, OTHER ==
--- OUTSIDE RECORDS SUMMARY | 2022-10-21 08:09 | XMS REPORT | Continuity of Care Document ---
:1965 Author Organization [facility] t Address [address] [place] [address] Care Team Providers Name Role Phone Peter ALVAREZ, Terrence Gerardo Primary Care Physician [phone] Mellissa ALVAREZ, Guzman Lim Attending Clinician [phone] Ogbechie_L Attending Clinician Unavailable Genesis Watts Attending Clinician Ernie ALVAREZ, Juan Dominguez Attending Clinician Micheal Perdomo MD Attending Clinician Félix SÁNCHEZ, Gabriela Magdaleno Attending Clinician Unavailable Only, Adc Test Attending Clinician Unavailable Tay Hsu MD Attending Clinician TAY HSU Attending Clinician Unavailable Usha FABIAN Attending Clinician Unavailable Ogbechie_Vanessa Admitting Clinician Unavailable Payers Payer Name Policy Type Policy Number Effective Date Expiration Date [facility] [id number] 2022 (MEDICARE 00:00:00 REPLACEMENT HMO) Problems [...] Active [employer] ALLERGIE Class ity of S [facility] Family History Family Member Diagnosis Comments Start Date Stop Date Source Natural father Hypertension [facility] Natural mother Heart disease [facility] Natural mother Hypertension [facility] Natural sister Diabetes [facility] Social History Social Habit Start Date Stop Date Quantity Comments Source History of tobacco Current smoker [facility] Exposure to Not sure Christian SARS-CoV-2 (event) Hospit al Gender identity [facility] Sexual [facility] of Social 2018-11-28 2018-11-[address] function 00:00:00 00:00:00 Hospital Tobacco use and 2018-01-15 2018-01-15 Smokeless Christian exposure 00:00:00 00:00:00 tobacco non-user Hospital Tobacco Comment 2018-01-15 2018-01-15 "Quit 2-3 months [facility] 00:00:00 00:00:00 ago" Hospital Alcohol intake 2016-03-26 2016-03-26 Current [facility] 00:00:00 00:00:00 non-drinker of Medical Ce nter alcohol (finding) Sex Assigned At [address] [facility] 00:00:00 00:00:00 [facility] Center Smoking Status Start Date Stop Date Source Unknown if ever smoked [facility] Ex-smoker 2018-01-15 00:00:00 2018-01-15 [facility] 00[facility]:00 Occasional tobacco 2016-03-26 00:00:00 [facility] smoker Center Medications Ordered Filled Start Stop [...] Time Performing Clinician Source Performed URINE CULTURE 2022-09-18 13:15[facility] MAGNESI[facility] LEV[facility] 2022-09-18 13:15[facility] PHOSPHORUS L[facility]EL 2022-09-18 [facility] COMPREHENSIVE METABOLIC 2022-09-18 13:15:00 Mellissa [facility] PANEL Raphael CBC WITH PLATELET AND 2022-09-18 13:15:[address] [facility] DIFFERENTIAL Raphael PROTEIN, URINE, RANDOM 2022-09-18 13:15:00 Mellissa [facility] Raphael CREATININE LEVEL, URINE, 2022-09-18 13:15:00 Mellissa [facility] RANDOM Raphael URINALYSIS SCREEN AND 2022-09-18 13:15:[address] [facility] MICROSCOPY, WITH REFLEX Raphael TO CULTURE LDH 2022-09-18 13:15:00 [facility] URIC ACID LEVEL 2022-09-18 13:15:00 [facility] CYCLOSPORINE LEVEL, 2022-09-18 13:15:00 Mellissa [facility] TROUGH Raphael LIPID PANEL 2022-09-18 13:15:00 [facility] ESTIMATED GFR 2022-09-18 13:15:00 [facility] MAGNESIUM LEVEL 2022-06-05 15:44:00 [facility] WITH [facility]ATELET AND 2022-06-05 15:44:00 [facility] DIFFERENTIAL COMPREHENSIVE METABOLIC 2022-06-05 15:44:00 Ernie [facility] PANEL PROTEIN, URINE, RANDOM 2022-06-05 15:44:00 Ernie [facility] CREATININE LEVEL, URINE, 2022-06-05 15:44:00 Ernie [facility] RANDOM PHOSPHORUS LEVEL 2022-06-05 15:44:00 [facility]OMATED 2022-06-05 15:44:00 [facility] LDH 2022-06-05 15:44:00 [facility] PARATHYROID HORMONE 2022-06-05 15:44:00 [facility] D 25 HYDROXY 2022-06-05 15:44:00 Juan Klein [facility] LEVEL LIPID PANEL 2022-06-05 15:44:00 [facility] CYCLOSPORINE LEVEL, 2022-06-05 15:44:00 [facility] TROUGH ESTIMATED GFR 2022-06-05 15:44:00 [facility] URINE CULTURE 2022-01-30 14:44:00 Ernie [facility] CBC WITH PLATELET AND 2022-01-30 14:44:00 [facility] DIFFERENTIAL MAGNESIUM LEVEL 2022-01-30 14:44:00 [facility] PHOSPHORUS LEVEL 2022-01-30 14:44:00 [facility] URIC ACID LEVEL 2022-01-30 14:44:00 [place] [facility] LDH 2022-01-30 14:44:00 [facility] URINALYSIS SCREEN AND 2022-01-30 14:44:00 [facility] MICROSCOPY, WITH REFLEX TO CULTURE PROTEIN, URINE, RANDOM 2022-01-30 14:44:00 [facility] CREATININE LEVEL, URINE, 2022-01-30 14:44:00 [facility] RANDOM COMPREHENSIVE METABOLIC 2022-01-30 14:44:00 [facility] PANEL CYCLOSPORINE LEVEL, 2022-01-30 14:44:00 [facility] RANDOM ESTIMATED GFR 2022-01-30 14:44:00 [facility] URINE CULTURE 2021-09-05 14:13:00 [facility] CBC WITH PLATELET AND 2021-09-05 14:13:00 [facility] DIFFERENTIAL MAGNESIUM LEVEL 2021-09-05 14:13:00 [facility] PHOSPHORUS LEVEL 2021-09-05 14:13:00 [facility] URIC ACID LEVEL 2021-09-05 14:13:00 [facility] LDH 2021-09-05 14:13:00 [facility] URINALYSIS SCREEN AND 2021-09-05 14:13:00 [facility] MICROSCOPY, WITH REFLEX TO CULTURE PROTEIN, URINE, RANDOM 2021-09-05 14:13:00 [facility] CREATININE LEVEL, URINE, 2021-09-05 14:13:00 [facility] RANDOM COMPREHENSIVE METABOLIC 2021-09-05 14:13:00 [facility] PANEL CYCLOSPORINE LEVEL, 2021-09-05 14:13:00 [facility] RANDOM ESTIMATED GFR 2021-09-05 14:13:00 [facility] URINE CULTURE 2021-04-15 14:00:00 [facility] HC COMPLETE BLD COUNT 2021-04-15 14:00:00 [facility] W/AUTO DIFF MAGNESIUM LEVEL 2021-04-15 14:00:00 [facility] PHOSPHORUS LEVEL 2021-04-15 14:00:00 [facility] URIC ACID LEVEL 2021-04-15 14:00:00 [facility] LDH 2021-04-15 14:00:00 [facility] URINALYSIS SCREEN AND 2021-04-15 14:00:00 [facility] MICROSCOPY, WITH REFLEX TO CULTURE PROTEIN, URINE, RANDOM 2021-04-15 14:00:00 [facility] CREATININE LEVEL, URINE, 2021-04-15 14:00:00 [facility] RANDOM CYCLOSPORINE LEVEL, 2021-04-15 14:00:00 [facility] RANDOM COMPREHENSIVE METABOLIC 2021-04-15 14:00:00 [facility] PANEL ESTIMATED GFR 2021-04-15 14:00:00 [facility] URINE CULTURE 2021-03-18 14:23:00 [facility] HC COMPLETE BLD COUNT 2021-03-18 14:23:00 [facility] W/AUTO DIFF MAGNESIUM LEVEL 2021-03-18 14:23:00 [facility] PHOSPHORUS LEVEL 2021-03-18 14:23:00 [facility] URIC ACID LEVEL 2021-03-18 14:23:00 [facility] LDH 2021-03-18 14:23:00 [facility] CREATININE LEVEL, URINE, 2021-03-18 14:23:00 [facility] RANDOM URINALYSIS SCREEN AND 2021-03-18 14:23:00 [facility] MICROSCOPY, WITH REFLEX TO CULTURE PROTEIN, URINE, RANDOM 2021-03-18 14:23:00 [facility] COMPREHENSIVE METABOLIC 2021-03-18 14:23:00 [facility] PANEL CYCLOSPORINE LEVEL, 2021-03-18 14:23:00 [facility] RANDOM ESTIMATED GFR 2021-03-18 14:23:00 Juan Klein [facility] HC COMPLETE BLD COUNT 2021-03-11 15:30:00 Ernie [facility] W/AUTO DIFF MAGNESIUM LEVEL 2021-03-11 15:30:00 Ernie [facility] PHOSPHORUS LEVEL 2021-03-11 15:30:00 Juan Klein [facility] URIC ACID LEVEL 2021-03-11 15:30:00 Juan Klein [facility] LDH 2021-03-11 15:30:00 [facility] COMPREHENSIVE METABOLIC 2021-03-11 15:30:00 Juan Klein [facility] PANEL CYCLOSPORINE LEVEL, 2021-03-11 15:30:00 Juan Klein [facility] RANDOM ESTIMATED GFR 2021-03-11 15:30:00 [facility]URE 2021-03-11 15:15:00 Juan Klein [facility] URINALYSIS SCREEN AND 2021-03-11 15:15:00 [facility] MICROSCOPY, WITH REFLEX TO CULTURE PROTEIN, URINE, RANDOM 2021-03-11 15:15:00 [facility] CREATININE LEVEL, URINE, 2021-03-11 15:15:00 [facility] RANDOM URINE CULTURE 2021-02-28 15:08:00 [facility] HC COMPLETE BLD COUNT 2021-02-28 15:08:00 [facility] W/AUTO DIFF MAGNESIUM LEVEL 2021-02-28 15:08:00 [facility] PHOSPHORUS LEVEL 2021-02-28 15:08:00 [facility] URIC ACID LEVEL 2021-02-28 15:08:00 [facility] LDH 2021-02-28 15:08:00 [facility] URINALYSIS SCREEN AND 2021-02-28 15:08:00 [facility] MICROSCOPY, WITH REFLEX TO CULTURE PROTEIN, URINE, RANDOM 2021-02-28 15:08:00 Leanne, [facility] CREATININE LEVEL, URINE, 2021-02-28 15:08:00 Leanne, [facility] RANDOM COMPREHENSIVE METABOLIC 2021-02-28 15:08:00 [facility] PANEL FK506 TACROLIMUS LEVEL, 2021-02-28 15:08:00 Leanne, [facility] RANDOM CYCLOSPORINE LEVEL, 2021-02-28 15:08:00 [facility] RANDOM ESTIMATED GFR 2021-02-28 15:08:00 [facility] URINE CULTURE 2020-11-26 14:11:00 [facility] HC COMPLETE BLD COUNT 2020-11-26 14:11:00 [facility] W/AUTO DIFF MAGNESIUM LEVEL 2020-11-26 14:11:00 [facility] PHOSPHORUS LEVEL 2020-11-26 14:11:00 [facility] URIC ACID LEVEL 2020-11-26 14:11:00 [facility] LDH 2020-11-26 14:11:00 [facility] URINALYSIS SCREEN AND 2020-11-26 14:11:00 [facility] MICROSCOPY, WITH REFLEX TO CULTURE CREATININE LEVEL, URINE, 2020-11-26 14:11:00 [facility] RANDOM PROTEIN, URINE, RANDOM 2020-11-26 14:11:00 [facility] CYCLOSPORINE LEVEL, 2020-11-26 14:11:00 [facility] RANDOM PARATHYROID HORMONE 2020-11-26 14:11:00 [facility] VITAMIN D 25 HYDROXY 2020-11-26 14:11:00 [facility] LEVEL COMPREHENSIVE METABOLIC 2020-11-26 14:11:00 [facility] PANEL ESTIMATED GFR 2020-11-26 14:11:00 [facility] URINE CULTURE 2020-09-13 15:29:00 [facility] COMPLETE BLD COUNT 2020-09-13 15:29:00 Juan Klein [facility] W/AUTO DIFF MAGNESIUM LEVEL 2020-09-13 15:29:00 Juan Klein [facility] PHOSPHORUS LEVEL 2020-09-13 15:29:00 Juan Klein [facility] URIC ACID LEVEL 2020-09-13 15:29:00 [facility] L[facility] 2020-09-13 15:29:00 Juan Klein [facility] URINALYSIS SCREEN AND 2020-09-13 15:29:00 Ernie [facility] MICROSCOPY, WITH REFLEX TO CULTURE CREATININE LEVEL, URINE, 2020-09-13 15:29:00 Ernie [facility] RANDOM PROTEIN, URINE, RANDOM 2020-09-13 15:29:00 Juan Klein [facility] COMPREHENSIVE METABOLIC 2020-09-13 15:29:00 Juan Klein Viviana [facility] PANEL CYCLOSPORINE LEVEL, 2020-09-13 15:29:[address] [facility] RANDOM PARATHYROID HORMONE 2020-09-13 15:29:00 Juan Klein Manuel [facility] VITAMIN D 25 HYDROXY 2020-09-13 15:29:00 Juan Klein [facility] LEVEL ESTIMATED GFR 2020-09-13 15:29:00 [facility] 2020-09-13 15:29:00 [facility] UR[facility]URE 2020-09-03 13:21:00 [facility] COMPLETE BLD COUNT 2020-09-03 13:21:00 [facility] W/AUTO DIFF MAGNESIUM LEVEL 2020-09-03 13:21:00 [facility] PHOSPHORUS LEVEL 2020-09-03 13:21:00 Juan Klein [facility] URIC ACID LEVEL 2020-09-03 13:21:00 [facility] LDH 2020-09-03 13:21:00 [facility] URINALYSIS SCREEN AND 2020-09-03 13:21:00 [facility] MICROSCOPY, WITH REFLEX TO CULTURE CREATININE LEVEL, URINE, 2020-09-03 13:21:00 [facility] RANDOM PROTEIN, URINE, RANDOM 2020-09-03 13:21:00 [facility] COMPREHENSIVE METABOLIC 2020-09-03 13:21:00 [facility] PANEL CYCLOSPORINE LEVEL, 2020-09-03 13:21:00 [facility] RANDOM PARATHYROID HORMONE 2020-09-03 13:21:00 [facility] VITAMIN D 25 HYDROXY 2020-09-03 13:21:00 [facility] LEVEL ESTIMATED GFR 2020-09-03 13:21:00 [facility] URINE CULTURE 2020-06-06 15:13:00 [facility] COMPREHENSIVE METABOLIC 2020-06-06 15:13:00 [facility] PANEL HC COMPLETE BLD COUNT 2020-06-06 15:13:00 [facility] W/AUTO DIFF MAGNESIUM LEVEL 2020-06-06 15:13:00 [facility] PHOSPHORUS LEVEL 2020-06-06 15:13:00 [facility] URIC ACID LEVEL 2020-06-06 15:13:00 [facility] LDH 2020-06-06 15:13:00 [facility] URINALYSIS SCREEN AND 2020-06-06 15:13:00 [facility] MICROSCOPY, WITH REFLEX TO CULTURE CREATININE LEVEL, URINE, 2020-06-06 15:13:00 [facility] RANDOM CYCLOSPORINE LEVEL, 2020-06-06 15:13:00 [facility] RANDOM PROTEIN, URINE, RANDOM 2020-06-06 15:13:00 [facility] ESTIMATED GFR 2020-06-06 15:13:00 [facility] URINE CULTURE 2020-01-30 12:52:00 [facility] COMPREHENSIVE METABOLIC 2020-01-30 12:52:00 Juan Klein [facility] PANEL HC COMPLETE BLD COUNT 2020-01-30 12:52:00 [facility] W/AUTO DIFF MAGNESIUM LEVEL 2020-01-30 12:52:00 [place] [facility] PHOSPHORUS LEVEL 2020-01-30 12:52:00 [facility] URIC ACID LEVEL 2020-01-30 12:52:00 [place] [facility] LDH 2020-01-30 12:52:00 [place] [facility] URINALYSIS SCREEN AND 2020-01-30 12:52:00 [place] [facility] MICROSCOPY, WITH REFLEX TO CULTURE CREATININE LEVEL, URINE, 2020-01-30 12:52:00 ErnieJuan [facility] RANDOM PROTEIN, URINE, RANDOM 2020-01-30 12:52:00 ErnieJuan [facility] CYCLOSPORINE LEVEL, 2020-01-30 12:52:00 Des AllemandsJuan [facility] RANDOM ESTIMATED GFR 2020-01-30 12:52:00 [facility] Plan of Care Planned Activity Planned Date Details Comments Source Future Scheduled 2022-10-07 Screening for [facility] Test 11:52:00 malignant neoplasm of colon (procedure) [code = 005456973] Future Scheduled 2022-10-07 Screening for [facility] Test 11:52:00 malignant neoplasm of colon (procedure) [code = 238236354] Future Scheduled 2022-10-07 Screening for [facility] Test 11:52:00 malignant neoplasm of colon (procedure) [code = 998414257] Future Scheduled 2022-10-07 Screening for [facility] Test 11:52:00 malignant neoplasm of colon (procedure) [code = 151363377] Future Scheduled 2022-10-07 Screening for [facility] Test 11:52:00 malignant neoplasm of colon (procedure) [code = 642603517] Future Scheduled 2022-10-07 SHINGLES VACCINES (1 [facility] Test 11:52:00 of 2) [code = SHINGLES VACCINES (1 of 2)] Future Scheduled 2022-10-07 COVID-19 VACCINE (2 - [facility] Test 11:52:00 Moderna series) [code = COVID-19 VACCINE (2 - Moderna series)] Future Scheduled 2022-10-07 INFLUENZA VACCINE [facility] 11:52:00 [code = INFLUENZA VACCINE] Future Scheduled 2022-07-17 COLONOSCOPY SCREENING [facility] Test 02:57:42 [code = COLONOSCOPY SCREENING] Future Scheduled 2022-07-17 SHINGLES VACCINES (1 Met [facility] Test 02:57:42 of 2) [code = SHINGLES VACCINES (1 of 2)] Future Scheduled 2022-07-17 COVID-19 VACCINE (2 - [facility] Test 02:57:42 Moderna series) [code = COVID-19 VACCINE (2 - Moderna series)] Future Scheduled 2022-07-17 INFLUENZA VACCINE [facility] Test 02:57:42 [code = INFLUENZA VACCINE] Future Scheduled 2022-06-18 COLONOSCOPY SCREENING [facility] Test 14:06:44 [code = COLONOSCOPY SCREENING] Future Scheduled 2022-06-18 SHINGLES VACCINES (1 Met [facility] Test 14:06:44 of 2) [code = SHINGLES VACCINES (1 of 2)] Future Scheduled 2022-06-18 COVID-19 VACCINE (2 - [facility] Test 14:06:44 Moderna series) [code = COVID-19 VACCINE (2 - Moderna series)] Future Scheduled 2022-06-18 INFLUENZA VACCINE [facility] Test 14:06:44 [code = INFLUENZA VACCINE] Future Scheduled 2022-03-26 COLONOSCOPY SCREENING [facility] Test 23:31:27 [code = COLONOSCOPY SCREENING] Future Scheduled 2022-03-26 SHINGLES VACCINES (1 Met [facility] Test 23:31:27 of 2) [code = SHINGLES VACCINES (1 of 2)] Future Scheduled 2022-03-26 COVID-19 VACCINE (2 - [facility] Test 23:31:27 Moderna series) [code = COVID-19 VACCINE (2 - Moderna series)] Future Scheduled 2022-03-26 INFLUENZA VACCINE [facility] Test 23:31:27 [code = INFLUENZA VACCINE] Future Scheduled 2022-02-07 HEPATITIS B VACCINES Met [facility] Test 08:46:41 (1 of 3 - 3-dose series) [code = HEPATITIS B VACCINES (1 of 3 - 3-dose series)] Future Scheduled 2022-02-07 Pneumococcal Vaccine: [facility] Test 08:46:41 Pediatrics (0 to 5 Years) and At-Risk Patients (6 to 64 Years) (1 - PCV) [code = Pneumococcal Vaccine: Pediatrics (0 to 5 Years) and At-Risk Patients (6 to 64 Years) (1 - PCV)] Future Scheduled 2022-02-07 Hepatitis C screening [facility] Test 08:46:41 (procedure) [code = 560715063] Future Scheduled 2022-02-07 SHINGLES VACCINES (1 [facility] Test 08:46:41 of 2) [code = SHINGLES VACCINES (1 of 2)] Future Scheduled 2022-02-07 COLONOSCOPY SCREENING [facility] Test 08:46:41 [code = COLONOSCOPY SCREENING] Future Scheduled 2022-02-07 COVID-19 VACCINE (2 - [facility] Test 08:46:41 Moderna risk series) [code = COVID-19 VACCINE (2 - Moderna risk series)] Future Scheduled 2022-02-07 INFLUENZA VACCINE [facility] Test 08:46:41 [code = INFLUENZA VACCINE] Future Scheduled 2021-04-15 Hepatitis C screening [facility] Test 08:27:26 (procedure) [code = 181550190] Future Scheduled 2021-04-15 COLONOSCOPY SCREENING [facility] Test 08:27:26 [code = COLONOSCOPY SCREENING] Future Scheduled 2021-04-15 SHINGLES VACCINES (#1) [facility] Test 08:27:26 [code = SHINGLES VACCINES (#1)] Future Scheduled 2021-04-15 COVID-19 VACCINE (2 - [facility] Test 08:27:26 Moderna risk 4-dose series) [code = COVID-19 VACCINE (2 - Moderna risk 4-dose series)] Future Scheduled 2021-04-15 INFLUENZA VACCINE [facility] Test 08:27:26 [code = INFLUENZA VACCINE] Future Scheduled COVID-19 VACCINE (1) [facility] Test [code = COVID-19 VACCINE (1)] Future Scheduled Hepatitis C screening [facility] Test (procedure) [code = 128302625] Future Scheduled COLONOSCOPY SCREENING [facility] Test [code = COLONOSCOPY SCREENING] Future Scheduled SHINGLES VACCINES (#1) [facility] Test [code = SHINGLES VACCINES (#1)] Future Scheduled INFLUENZA VACCINE [facility] Test [code = INFLUENZA VACCINE] Encounters Start End Encounter Admission Attending Care Care Encounter Source Date/Time Date/Time Type Type Clinicians Facility Department ID 2022-09-18 2022-09-18 Lab Mellissa, 1.2.840.1 [id number] Methodi 08:00:00 08:05:[address] [facility] 3.430.2.7 Hospit a .3.232356 l .8 2022-09-18 2022-09-18 Outpatient MELLISSA [facility] [id number] [address] [place] 00:00:00 00:00:00 LIZZETTE [address] 2022-09-18 2022-09-18 Travel 1.2.840.1 [id number] [id number] Methodi 00:00:00 00:00:[address] 3.430.2.7 0.2.7.3.698 spita .3.697761 084.8 l .8 2022-08-15 2022-08-15 Outpatient Ogbechie_L DMG DMG 1557 [facility] 00:00:00 00:00:00 [id number] Medica l Group 2022-08-15 2022-08-15 Outpatient Ogbechie_L DMG DMG 1557 [facility] 00:00:00 00:00:00 [id number] Medica l Group 2022-08-15 2022-08-15 Outpatient Ogbechie_L DMG DMG 1557 [facility] 00:00:00 00:00:00 [id number] Medica l Group 2022-07-11 2022-07-11 CAV [facility] 2.16.840. 2.16.840.1. [facility] [id number] [facility] 20:00:00 21:00:00 Ogjoãodaysie 1.193169. 682175.4.6. S9C Medical [id number] 2022-06-24 2022-06-24 Outpatient Ogbechie_L DM DM 1557 00:00:00 00:00:00 [id number] Medica l Group 2022-06-05 2022-06-05 Lab Juan Klein 1.2.840.1 10 [id number] Methodi 09:25:00 09:30:00 Tamara Malloybbar Raphael [address].1.[address] 3.430.2.7 Hospit a .3.452945 l .8 2022-06-05 2022-06-05 Lab Juan Klein 1.2.840.1 10 [id number] Methodi 09:25:00 09:30:00 Guzman Malloy Raphael [address]69.1.[address] 3.430.2.7 Hospit a .3.240229 l .8 2022-06-05 2022-06-05 Travel 1.2.840.1 1.2.166.313 [id number] Methodi 00:00:00 00:00:[address] 3.430.2.7 0.2.7.3.698 Ho spita .3.956131 084.8 l .8 2022-06-05 2022-06-05 Travel 1.2.840.1 1.2.467.216 [id number] Methodi 00:00:00 00:00:[address] 3.430.2.7 0.2.7.3.698 Ho spita .3.919917 084.8 l .8 2022 [id number] 00:00:00 00:00:00 [id number] Medica l Group 2022-01-30 2022-01-30 Lab Ernie, 1.2.840.1 [id number] Methodi 07:00:00 07:05:00 Juan [address]uez [address]85.1.[address] 3.430.2.7 Hospit a .3.621323 l .8 2022-01-30 2022-01-30 Lab Ernie, 1.2.840.1 [id number] Methodi 07:00:00 07:05:00 Juan Dominguez [address]66.1.[address] 3.430.2.7 Hospit a .3.420060 l .8 2022-01-30 2022-01-30 Lab Ernie, 1.2.840.1 [id number] [id number] Methodi 06:00:00 06:05:00 Juan Dominguez [address]806.1.[address] 3.430.2.7 Hospit a .3.013228 l .8 2022-01-30 2022-01-30 Lab Ernei, 1.2.840.1 [id number] [id number] Methodi 06:00:00 06:05:00 Juan Dominguez [address]223.1.[address] 3.430.2.7 Hospit a .3.208436 l .8 2022-01-30 2022-01-30 Travel 1.2.840.1 1.2.470.526 [id number] Methodi 00:00:00 00:00:[address] 3.430.2.7 0.2.7.3.698 Ho spita .3.630045 084.8 l .8 2022-01-30 2022-01-30 Travel 1.2.840.1 1.2.998.949 4768 [id number] Methodi 00:00:00 00:00:[address] 3.430.2.7 0.2.7.3.698 Ho spita .3.803667 084.8 l .8 2021-09-05 2021-09-05 Lab Ernie, 1.2.840.1 [id number] 2099 [id number] Methodi 06:25:00 06:30:00 Juan Dominguez 60905.1.[address] 3.430.2.7 Hospit a .3.790692 l .8 2021-09-05 2021-09-05 Travel 1.2.840.1 1.2.363.241 9320 [id number] Methodi 00:00:00 00:00:[address] 3.430.2.7 0.2.7.3.698 Ho spita .3.360987 084.8 l .8 2021-04-15 2021-04-15 Lab Ernie, 1.2.840.1 [id number] 2099 [id number] Methodi 06:10:00 06:15:00 Juan Dominguez 30055.1.[address] 3.430.2.7 Hospit a .3.943703 l .8 2021-04-15 2021-04-15 Travel 1.2.840.1 1.2.480.168 5349 976489 Methodi 00:00:00 00:00:[address] 3.430.2.7 0.2.7.3.698 Ho spita .3.952100 084.8 l .8 2021-03-18 2021-03-18 Lab Ernie, 1.2.840.1 [id number] Methodi 06:20:00 06:25:00 Juan Dom[address]uez [address]0587.1.[address] 3.430.2.7 Hospit a .3.166913 l .8 2021-03-18 2021-03-18 Travel 1.2.840.1 1.2.580.185 8930 [id number] Methodi 00:00:00 00:00:[address] 3.430.2.7 0.2.7.3.698 Ho spita .3.964642 084.8 l .8 2021-03-11 2021-03-11 Lab Ernie, 1.2.840.1 [id number] 2099 [id number] Methodi 09:00:00 09:05:00 Juan [address]uez [address]1297.1.[address] 3.430.2.7 Hospit a .3.898033 l .8 2021-03-11 2021-03-11 Travel 1.2.840.1 1.2.155.175 3536 431714 Methodi 00:00:00 00:00:[address] 3.430.2.7 0.2.7.3.698 Ho spita .3.133058 084.8 l .8 2021-02-28 2021-02-28 Lab Leanne, 1.2.840.1 [id number] 4202 Methodi 08:20:00 08:25:00 Micheal Covarrubias 21439.1.[address] 3.430.2.7 Hospit a .3.978333 l .8 2021-02-28 2021-02-28 Travel 1.2.840.1 1.2.772.022 5301 468854 Methodi 00:00:00 00:00:[address] 3.430.2.7 0.2.7.3.698 Ho spita .3.175136 084.8 l .8 2021-02-25 2021-02-25 Travel 1.2.840.1 1.2.006.645 4084 344739 Methodi 00:00:00 00:00:[address] 3.430.2.7 0.2.7.3.698 Ho spita .3.644437 084.8 l .8 2020-11-26 2020-11-26 Lab Ernie, 1.2.840.1 [id number] 2099 [id number] Methodi 08:48:26 08:53:26 Juan Dominguez 77621.1.[address] 3.430.2.7 Hospit a .3.858772 l .8 2020-11-26 2020-11-26 Travel 1.2.840.1 1.2.136.806 9680 101832 Methodi 00:00:00 00:00:[address] 3.430.2.7 0.2.7.3.698 Ho spita .3.729795 084.8 l .8 2020-11-15 2020-11-15 Travel 1.2.840.1 1.2.610.710 4687 696556 Methodi 00:00:00 00:00:[address] 3.430.2.7 0.2.7.3.698 Ho spita .3.347209 084.8 l .8 2020-09-13 2020-09-13 Lab Ernie, 1.2.840.1 [id number] 2099 365518 Methodi 10:07:34 10:12:34 Juan Dominguez 52257.1.[address] 3.430.2.7 Hospit a .3.042534 l .8 2020-09-13 2020-09-13 Travel 1.2.840.1 1.2.098.748 9464 274072 Methodi 00:00:00 00:00:[address] 3.430.2.7 0.2.7.3.698 Ho spita .3.108630 084.8 l .8 2020-09-03 2020-09-03 Lab Ernie, 1.2.840.1 [id number] Methodi 07:58:11 08:03:[address] 3.430.2.7 Hospit a .3.737900 l .8 2020-09-03 2020-09-03 Travel 1.2.840.1 1.2.572.630 4686 225245 Methodi 00:00:00 00:00:[address] 3.430.2.7 0.2.7.3.698 Ho spita .3.026815 084.8 l .8 2020-08-29 2020-08-29 Travel 1.2.840.1 1.2.433.457 2272 099788 Methodi 00:00:00 00:00:[address] 3.430.2.7 0.2.7.3.698 Ho spita .3.984436 084.8 l .8 2020-08-13 2020-08-13 Travel 1.2.840.1 1.2.643.928 6423 440500 Methodi 00:00:00 00:00:[address] 3.430.2.7 0.2.7.3.698 Ho spita .3.928264 084.8 l .8 2020-07-30 2020-07-30 Travel 1.2.840.1 1.2.758.501 0434 854156 Methodi 00:00:00 00:00:[address] 3.430.2.7 0.2.7.3.698 Ho spita .3.219021 084.8 l .8 2020-06-07 2020-06-07 Sol Perdomo 1.2.840.1 [id number] 146099 7823 Methodi 07:23:50 07:28:50 Micheal Covarrubias 67805.1.[address] 3.430.2.7 Hospit a .3.532863 l .8 2020-06-06 2020-06-06 Travel 1.2.840.1 1.2.115.050 0887 994530 Methodi 00:00:00 00:00:[address] 3.430.2.7 0.2.7.3.698 Ho spita .3.980183 084.8 l .8 2020-03-18 2020-03-18 WINSTON Salazar 1.2.632.895 4289 8754 [facility] 00:00:00 00:00:[address] [facility] 4.2.7.2.686 [place] [id number] [address] 2020-03-18 2020-03-18 Telephone WINSTON Heard 1.2.486.538 7699 8754 00:00:00 00:00:00 Gabriela TARIQ 350.1.13.10 [facility] 4.2.7.2.686 [id number] [facility] 2020-03-16 2020-03-16 Laboratory Only, [facility] Test [facility] 1.2.840. 114 [id number] Univers 15:00:29 15:15:29 Only Tay Hsu 350.1.13.10 [facility] 4.2.7.2.686 [facility] [id number] [address] 2020-03-16 2020-03-16 Laboratory Only, [facility] 1.2.840.114 7 [id number] 15:00:29 15:15:29 Only Test Karsten 350.1.13.10 [place] 4.2.7.2.686 [place] [id number] [facility] 2020-03-16 2020-03-16 Outpatient Livia HSU [facility] [id number] [id number] Univers 15:15:00 15:15:00 TAY [facility] 2020-01-30 2020-01-30 Sol Klein 1.2.840.1 [id number] 2100 [id number] Methodi 04:42:28 04:47:28 Juan Covarrubias 99308.1.[address] 3.430.2.7 Hospit a .3.855626 l .8 2020-01-30 2020-01-30 Travel 1.2.840.1 1.2.385.397 4329 [id number] Methodi 00:00:00 00:00:[address] 3.430.2.7 0.2.7.3.698 Ho spita .3.269446 084.8 l .8 2020-01-23 2020-01-23 Sol Klein 1.2.840.1 [id number] 2099 [id number] Methodi 04:55:00 05:00:00 Juan Covarrubias 16606.1.[address] 3.430.2.7 Hospit a .3.071413 l .8 2020-01-23 2020-01-23 Travel 1.2.840.1 1.2.974.989 9739 006620 Methodi 00:00:00 00:00:[address] 3.430.2.7 0.2.7.3.698 Ho spita .3.029474 084.8 l .8 2020-01-09 2020-01-09 Sol Klein, 1.2.840.1 [id number] 2099 [id number] Methodi 05:05:00 05:10:00 Juan Covarrubias 09503.1.[address] 3.430.2.7 Hospit a .3.443734 l .8 2020-01-09 2020-01-09 Travel 1.2.840.1 1.2.501.657 7676 986865 Methodi 00:00:00 00:00:[address] 3.430.2.7 0.2.7.3.698 Ho spita .3.997832 084.8 l .8 2019-07-04 2019-07-04 Outpatient Usha FABIAN [facility] 095 [id number] [place] 00:00:00 00:00:[address] Results Test Description Test Time Test Comments Results Result Comments Source Creatinine level, urine, random 2022-09-18 16:18:00 Test Item Value Reference Range Interpretation Comme nts Creatinine, urine (mg/dL) (test code = 72179-7) 82 [facility]dL [facility] to culture 2022-09-18 16:18:00 Test Item Value Reference Range Interpretation Comments Specimen site (test Clean catch code = 8733483) Color, UA (test code = Straw 5778-6) Appearance, UA (test Clear code = 5767-9) Specific gravity, UA 1.017 1.001-1.035 (test code = 5811-5) pH, UA (test code = 6.0 5.0-8.5 5803-2) Protein, UA (test code 2+ Negative A = 71299-7) Glucose, UA (test code 3+ Negative A = 37850-7) Ketones, UA (test code Negative Negative = 2514-8) Bilirubin, UA (test Negative Negative code = 5770-3) Blood, UA (test code = Small Negative A 5794-3) Nitrite, UA (test code Negative Negative = 5802-4) Urobilinogen, UA (test <2.0 <=2.0 code = 42725-6) Leukocyte esterase, UA Negative Negative (test code = 5799-2) Epithelial cells, UA <1 See_Comment [Autom ated (test code = 5787-7) message ] The system which generated this result transmitted reference range : /HPF. The refer ence range was not u sed to interpret th is result as normal/abnormal . WBC, UA (test code = 1 See_Comment [Autom ated 5821-4) message] The sy stem which generated this result transmitted reference range : 0 - 1 /HPF. The reference range was not used to interpret this result as normal/abnormal . RBC, UA (test code = 3 See_Comment [Autom ated 76972-7) message] The sy stem which generated this result transmitted reference range : 0 - 5 /HPF. The reference range was not used to interpret this result as normal/abnormal . Bacteria, UA (test code None seen None seen = 29061-1) Yeast, UA (test code = None seen 46341-9) Yeast with None seen pseudohyphae, UA (test code = 23660-5) Lab Interpretation Abnormal (test code = 61427-7) [facility] [id number] 16:17:00 Test Item Value Reference Range Interpretation Comments Protein, urine random (test code = 114 mg/dL 2888-6) [facility] [id number] 15:51:00 Test Item Value Reference Range Interpretation Comments Urine culture (test SEE COMMENT Bacteriu deandre screen code = 8438503) negative. [facility], [id number] 17:00:00 Test Item Value Reference Range Interpretation Comments Creatinine, urine (mg/dL) (test 179 mg/dL code = 78748-1) [facility], [id number] 17:00:00 Test Item Value Reference Range Interpretation Comments Protein, urine random (test code = 90 mg/dL 2888-6) [facility], [id number] 17:00:00 Test Item Value Reference Range Interpretation Comments Creatinine, urine (mg/dL) (test 179 mg/dL code = 15344-5) [facility], [id number] 17:00:00 Test Item Value Reference Range Interpretation Comments Protein, urine random (test code = 90 mg/dL 2888-6) [facility] automated with [id number] 16:47:00 Test Item Value Reference Range Interpretation Comments Color, UA (test code = Yellow 5778-6) Appearance, UA (test Clear code = 5767-9) Specific gravity, UA 1.025 1.001-1.035 (test code = 5811-5) pH, UA (test code = 6.0 5.0-8.5 5803-2) Protein, UA (test code = 2+ Negative A 51415-6) Glucose, UA (test code = 3+ Negative A 98359-2) Ketones, UA (test code = Negative Negative 2514-8) Bilirubin, UA (test code Negative Negative = 5770-3) Blood, UA (test code = Moderate Negative A 5794-3) Nitrite, UA (test code = Negative Negative 5802-4) Urobilinogen, UA (test <2.0 <=2.0 code = 32213-5) Leukocyte esterase, UA Negative Negative (test code = 5799-2) WBC, UA (test code = See_Comment [Autom ated message] 5821-4) The system [employer] generated this result transmit dirk reference range : 0 - 1 /HPF. The reference range was not used to interpret this result as normal/abnormal . RBC, UA (test code = 3 See_Comment [Autom ated message] 15684-7) The system [employer] generated this result transmit dirk reference range : 0 - 5 /HPF. The reference range was not used to interpret this result as normal/abnormal . Bacteria, UA (test code None seen None seen = 98892-5) Yeast, UA (test code = None seen 87178-9) Yeast with pseudohyphae, None seen UA (test code = 14327-4) Lab Interpretation (test Abnormal code = 11321-2) [facility] with [id number] 16:47:00 Test Item Value Reference Range Interpretation Comments Color, UA (test code = Yellow 5778-6) Appearance, UA (test Clear code = 5767-9) Specific gravity, UA 1.025 1.001-1.035 (test code = 5811-5) pH, UA (test code = 6.0 5.0-8.5 5803-2) Protein, UA (test code = 2+ Negative A 53681-1) Glucose, UA (test code = 3+ Negative A 34700-3) Ketones, UA (test code = Negative Negative 2514-8) Bilirubin, UA (test code Negative Negative = 5770-3) Blood, UA (test code = Moderate Negative A 5794-3) Nitrite, UA (test code = Negative Negative 5802-4) Urobilinogen, UA (test <2.0 <=2.0 code = 30767-1) Leukocyte esterase, UA Negative Negative (test code = 5799-2) WBC, UA (test code = See_Comment [Autom ated message] 5821-4) The system [employer] generated this result transmit dirk reference range : 0 - 1 /HPF. The reference range was not used to interpret this result as normal/abnormal . RBC, UA (test code = 3 See_Comment [Autom ated message] 66388-5) The system [employer] generated this result transmit dirk reference range : 0 - 5 /HPF. The reference range was not used to interpret this result as normal/abnormal . Bacteria, UA (test code None seen None seen = 21616-8) Yeast, UA (test code = None seen 00438-2) Yeast with pseudohyphae, None seen UA (test code = 41652-1) Lab Interpretation (test Abnormal code = 43237-8) [facility] with [id number] 16:47:00 Test Item Value Reference Range Interpretation Comments Color, UA (test code = Yellow 5778-6) Appearance, UA (test Clear code = 5767-9) Specific gravity, UA 1.025 1.001-1.035 (test code = 5811-5) pH, UA (test code = 6.0 5.0-8.5 5803-2) Protein, UA (test code = 2+ Negative A 55121-3) Glucose, UA (test code = 3+ Negative A 79935-2) Ketones, UA (test code = Negative Negative 2514-8) Bilirubin, UA (test code Negative Negative = 5770-3) Blood, UA (test code = Moderate Negative A 5794-3) Nitrite, UA (test code = Negative Negative 5802-4) Urobilinogen, UA (test <2.0 <=2.0 code = 57116-0) Leukocyte esterase, UA Negative Negative (test code = 5799-2) WBC, UA (test code = See_Comment [Autom ated message] 5821-4) The system [employer] generated this result transmit dirk reference range : 0 - 1 /HPF. The reference range was not used to interpret this result as normal/abnormal . RBC, UA (test code = 3 See_Comment [Autom ated message] 96188-2) The system [employer] generated this result transmit dirk reference range : 0 - 5 /HPF. The reference range was not used to interpret this result as normal/abnormal . Bacteria, UA (test code None seen None seen = 83202-7) Yeast, UA (test code = None seen 57619-3) Yeast with pseudohyphae, None seen UA (test code = 45272-7) Lab Interpretation (test Abnormal code = 67295-9) [facility], [id number] 15:44:00 Test Item Value Reference Range Interpretation Comments Creatinine, urine (mg/dL) (test 110 mg/dL code = 35576-0) [facility], [id number] 15:44:00 Test Item Value Reference Range Interpretation Comments Protein, urine random (test code = 67 mg/dL 2888-6) [facility], [id number] 15:44:00 Test Item Value Reference Range Interpretation Comments Creatinine, urine (mg/dL) (test 110 mg/dL code = 83206-5) [facility], [id number] 15:44:00 Test Item Value Reference Range Interpretation Comments Protein, urine random (test code = 67 mg/dL 2888-6) [facility], with reflex to culture 2022-01-30 15:43:00 Test Item Value Reference Range Interpretation Comments Specimen site (test Clean catch code = 0655821) Color, UA (test code = Yellow 5778-6) Appearance, UA (test Clear code = 5767-9) Specific gravity, UA 1.001-1.035 (test code = 5811-5) pH, UA (test code = 5.0-8.5 5803-2) Protein, UA (test code 2+ Negative A = 60182-8) Glucose, UA (test code 3+ Negative A = 52004-3) Ketones, UA (test code Negative Negative = 2514-8) Bilirubin, UA (test Negative Negative code = 5770-3) Blood, UA (test code = Small Negative A 5794-3) Nitrite, UA (test code Negative Negative = 5802-4) Urobilinogen, UA (test <2.0 See_Comment [Aut omated code = 88129-0) message] The system which generated this result [...] (test code = <1 See_Comment [Autom ated 82468-2) message] The sy stem which generated this result transmitted reference range : 0 - 5 /HPF. The reference range was not used to interpret this result as normal/abnormal . Bacteria, UA (test code None seen None seen = 86952-4) Yeast, UA (test code = None seen 10303-3) Yeast with None seen pseudohyphae, UA (test code = 05804-8) Lab Interpretation Abnormal (test code = 18681-6) [facility], with reflex to culture 2022-01-30 15:43:00 Test Item Value Reference Range Interpretation Comments Specimen site (test Clean catch code = 1830730) Color, UA (test code = Yellow 5778-6) Appearance, UA (test Clear code = 5767-9) Specific gravity, UA 1.001-1.035 (test code = 5811-5) pH, UA (test code = 5.0-8.5 5803-2) Protein, UA (test code 2+ Negative A = 02453-6) Glucose, UA (test code 3+ Negative A = 10972-4) Ketones, UA (test code Negative Negative = 2514-8) Bilirubin, UA (test Negative Negative code = 5770-3) Blood, UA (test code = Small Negative A 5794-3) Nitrite, UA (test code Negative Negative = 5802-4) Urobilinogen, UA (test <2.0 See_Comment [Aut omated code = 77237-0) message] The system which generated this result [...] (test code = <1 See_Comment [Autom ated 30743-8) message] The sy stem which generated this result transmitted reference range : 0 - 5 /HPF. The reference range was not used to interpret this result as normal/abnormal . Bacteria, UA (test code None seen None seen = 14498-7) Yeast, UA (test code = None seen 11357-5) Yeast with None seen pseudohyphae, UA (test code = 13590-3) Lab Interpretation Abnormal (test code = 27257-6) [facility] with reflex to culture 2022-01-30 15:43:00 Test Item Value Reference Range Interpretation Comments Specimen site (test Clean catch code = 1130468) Color, UA (test code = Yellow 5778-6) Appearance, UA (test Clear code = 5767-9) Specific gravity, UA 1.020 1.001-1.035 (test code = 5811-5) pH, UA (test code = 6.0 5.0-8.5 5803-2) Protein, UA (test code 2+ Negative A = 39801-0) Glucose, UA (test code 3+ Negative A = 54579-3) Ketones, UA (test code Negative Negative = 2514-8) Bilirubin, UA (test Negative Negative code = 5770-3) Blood, UA (test code = Small Negative A 5794-3) Nitrite, UA (test code Negative Negative = 5802-4) Urobilinogen, UA (test <2.0 <=2.0 code = 78513-0) Leukocyte esterase, UA Negative Negative (test code = 5799-2) WBC, UA (test code = None seen See_Comment [Autom ated 5821-4) message] The sy stem which generated this result transmitted reference range : 0 - 1 /HPF. The reference range was not used to interpret this result as normal/abnormal . RBC, UA (test code = <1 See_Comment [Autom ated 22568-3) message] The sy stem which generated this result transmitted reference range : 0 - 5 /HPF. The reference range was not used to interpret this result as normal/abnormal . Bacteria, UA (test code None seen None seen = 97945-3) Yeast, UA (test code = None seen 31020-6) Yeast with None seen pseudohyphae, UA (test code = 38693-0) Lab Interpretation Abnormal (test code = 41955-1) [facility] with reflex to culture 2022-01-30 15:43:00 Test Item Value Reference Range Interpretation Comments Specimen site (test Clean catch code = 5983415) Color, UA (test code = Yellow 5778-6) Appearance, UA (test Clear code = 5767-9) Specific gravity, UA 1.020 1.001-1.035 (test code = 5811-5) pH, UA (test code = 6.0 5.0-8.5 5803-2) Protein, UA (test code 2+ Negative A = 07798-9) Glucose, UA (test code 3+ Negative A = 02357-3) Ketones, UA (test code Negative Negative = 2514-8) Bilirubin, UA (test Negative Negative code = 5770-3) Blood, UA (test code = Small Negative A 5794-3) Nitrite, UA (test code Negative Negative = 5802-4) Urobilinogen, UA (test <2.0 <=2.0 code = 32336-1) Leukocyte esterase, UA Negative Negative (test code = 5799-2) WBC, UA (test code = None seen See_Comment [Autom ated 5821-4) message] The sy stem which generated this result transmitted reference range : 0 - 1 /HPF. The reference range was not used to interpret this result as normal/abnormal . RBC, UA (test code = <1 See_Comment [Autom ated 41290-2) message] The sy stem which generated this result transmitted reference range : 0 - 5 /HPF. The reference range was not used to interpret this result as normal/abnormal . Bacteria, UA (test code None seen None seen = 32651-9) Yeast, UA (test code = None seen 86200-7) Yeast with None seen pseudohyphae, UA (test code = 62479-4) Lab Interpretation Abnormal (test code = 85953-2) [facility] [id number] 15:35:00 Test Item Value Reference Range Interpretation Comments Urine culture (test SEE COMMENT Bacteriu deandre screen code = 9018556) negative. [facility] [id number] 15:35:00 Test Item Value Reference Range Interpretation Comments Urine culture (test SEE COMMENT Bacteriu deandre screen code = 4497477) negative. [facility] [id number] 15:35:00 Test Item Value Reference Range Interpretation Comments Urine culture (test SEE COMMENT Bacteriu deandre screen code = 2375167) negative. [facility] [id number] 15:35:00 Test Item Value Reference Range Interpretation Comments Urine culture (test SEE COMMENT Bacteriu deandre screen code = 1501357) negative. [facility], [id number] 17:11:47 Test Item Value Reference Range Interpretation Comments Creatinine, urine (mg/dL) (test 121 mg/dL code = 46420-2) [facility], [id number] 17:11:47 Test Item Value Reference Range Interpretation Comments Protein, urine random (test code = 161 mg/dL 2888-6) [facility] [id number] 15:53:04 Test Item Value Reference Range Interpretation Comments Urine culture (test SEE COMMENT Bacteriu deandre screen code = 4109809) negative. [facility], with reflex to culture 2021-04-15 15:53:03 Test Item Value Reference Range Interpretation Comments Specimen site (test Clean catch code = 5269400) Color, UA (test code = Straw 5778-6) Appearance, UA (test Clear code = 5767-9) Specific gravity, UA 1.001-1.035 (test code = 5811-5) pH, UA (test code = 5.0-8.5 5803-2) Protein, UA (test code 2+ Negative A = 54901-2) Glucose, UA (test code 3+ Negative A = 74555-7) Ketones, UA (test code Negative Negative = 2514-8) Bilirubin, UA (test Negative Negative code = 5770-3) Blood, UA (test code = Moderate Negative A 5794-3) Nitrite, UA (test code Negative Negative = 5802-4) Urobilinogen, UA (test <2.0 <2.0 code = 52866-0) Leukocyte esterase, UA Negative Negative (test code = 5799-2) WBC, UA (test code = See_Comment [Autom ated 5821-4) message] The sy stem which generated this result transmitted reference range : 0 - 1 /HPF. The reference range was not used to interpret this result as normal/abnormal . RBC, UA (test code = See_Comment [Autom ated 68537-5) message] The sy stem which generated this result transmitted reference range : 0 - 5 /HPF. The reference range was not used to interpret this result as normal/abnormal . Bacteria, UA (test code None seen None seen = 47481-2) Yeast, UA (test code = None seen 35023-2) Yeast with None seen pseudohyphae, UA (test code = 25279-1) Lab Interpretation Abnormal (test code = 35549-3) [facility], [id number] 21:24:19 Test Item Value Reference Range Interpretation Comments Protein, urine random (test code = 484 mg/dL 2888-6) [facility], urine, [id number] 16:47:21 Test Item Value Reference Range Interpretation Comments Creatinine, urine, random (test 201 mg/dL code = 70135-0) [facility], with reflex to culture 2020-11-26 15:18:17 Test Item Value Reference Range Interpretation Comments Specimen site (test Clean catch code = 5524119) Color, UA (test code = Yellow 5778-6) Appearance, UA (test Clear code = 5767-9) Specific gravity, UA 1.001-1.035 (test code = 5811-5) pH, UA (test code = 5.0-8.5 5803-2) Protein, UA (test code 3+ Negative A = 64760-9) Glucose, UA (test code 1+ Negative A = 30444-0) Ketones, UA (test code Negative Negative = 2514-8) Bilirubin, UA (test Negative Negative code = 5770-3) Blood, UA (test code = Moderate Negative A 5794-3) Nitrite, UA (test code Negative Negative = 5802-4) Urobilinogen, UA (test <2.0 <2.0 code = 28219-3) Leukocyte esterase, UA Negative Negative (test code = 5799-2) WBC, UA (test code = See_Comment [Autom ated 5821-4) message] The sy stem which generated this result transmitted reference range : 0 - 1 /HPF. The reference range was not used to interpret this result as normal/abnormal . RBC, UA (test code = See_Comment H [Autom ated 99896-0) message] The sy stem which generated this result transmitted reference range : 0 - 5 /HPF. The reference range was not used to interpret this result as normal/abnormal . Bacteria, UA (test code None seen None seen = 13786-4) Yeast, UA (test code = None seen 25182-0) Yeast with None seen pseudohyphae, UA (test code = 79094-6) Hyaline casts, UA (test See_Comment [Au tomated code = 5796-8) message] The system which generated this result transmitted reference range : /LPF. The refer ence range was not u sed to interpret th is result as normal/abnormal . Lab Interpretation Abnormal (test code = 59795-5) [id number] 14:41:27 Test Item Value Reference Range Interpretation Comments Urine culture (test SEE COMMENT Bacteriu deandre screen code = 4005508) negative. [facility])2019-09-17 04:32:00 Test Item Value Reference Range Interpretation Comments SARS-COV2/RT-PCR (test Not Detected Not Detected, Negative code = 7839413) SARS-COV-[address] [facility] (test code = 4255109) Negative results do not preclude SARS-CoV-2 infection [...] of the Act.Fact Sheet for Healthcare Pro viders:https://www.[employer] [employer].MobileTag/Documents/Xpert%20Xpress%20SARS%20CoV-2/Fact%20Sh eets/023-5792%02SHJM-WSL-2%20HEALTHCARE%20PROVIDERS%20FACT%20SHEET.pdfFact Sheet for Healthcare Patients:https://www.[employer].MobileTag/Documents/Xpert%20Xpress%20SARS%20CoV-2/Fact%20Sheets/3023801%20SARS-COV -2%20PATIENT%20FACT%20SHEET.pdfPerforming Laboratory:[place] [id number] [place] [address]
[2022-10-21 09:14] LABS: Absolute Lymphocytes (CBC) 1.1 K/uL (0.7-4.9); Hematocrit 47.9 % (39.6-49.0); Lymphocytes % 10.6 % (15.3-44.8); MCV 92.1 fL (80-100); MPV 7.1 fL (7.6-11.3)
[2022-10-21 09:24] LABS: Specific Gravity 1.023 (1.005-1.030); Urine Bacteria None Seen /HPF (<20); Urine Bilirubin NEGATIVE (Negative); Urine Blood 3+ (Negative); Urine Clarity Clear (Clear); Urine Color Yellow (Yellow); Urine Glucose 4+ (Over) (Negative); Urine Mucus Slight /HPF (None Seen); Urine Protein 3+ (Negative); Urine RBC <5 /HPF (None Seen); Urine Urobilinogen Normal (Normal); Urine pH 5.5 (5.0-7.0)
--- NOTE | 2022-10-21 09:34 | RAD REPORT ---
EXAM DESCRIPTION: RAD - Chest Single View - 10/21/2022 9:07 am CLINICAL HISTORY: ABDOMINAL DISTENTION Chest pain. COMPARISON: Chest Single View dated 07/07/2021; Chest Single View dated 03/13/2021; Chest Single View dated 10/25/2020; Chest Single View dated 06/23/2020 FINDINGS: Portable technique limits examination quality. The lungs are grossly clear. The heart is normal in size. No displaced fractures. IMPRESSION: No acute intrathoracic process suspected.
[2022-10-21 09:35] LABS: Bilirubin Direct 0.2 mg/dL (0-0.2); Bilirubin Indirect, Calculated 0.5 mg/dL (0.2-0.8); Bilirubin Total 0.7 mg/dL (0.2-1.0); Magnesium 2.4 mg/dL (1.6-2.4); Protein, Total 8.7 g/dL (6.4-8.2); Troponin High Sensitivity 15.5 pg/mL (<58.9)
[2022-10-21 09:46] LABS: Protime INR 1.25
[2022-10-21] MEDS ORDERED: NA CHLORIDE 0.9% 1,000 ML ONE (09:58)
--- NOTE | 2022-10-21 10:11 | RAD REPORT ---
EXAM DESCRIPTION: CTAbdomen Pelvis W Contrast - 10/21/2022 9:50 am CLINICAL HISTORY: Abdominal pain. ABDOMINAL DISTENTION COMPARISON: Abdomen Pelvis W Contrast dated 02/02/2020; Abdomen Pelvis W Contrast dated 0; Abdomen Pelvis W Contrast dated 05/31/2019 TECHNIQUE: Biphasic CT imaging of the abdomen and pelvis was performed with 100 ml non-ionic IV cont rast. All CT scans are performed using dose optimization technique as appropriate and may include automated exposure control or mA/KV adjustment according to patient size. FINDINGS: The lung bases are clear. The liver is diffusely fatty. Cholecystectomy clips. The spleen, pancreas, adrenal glands are within normal limits. Atrophic kidneys bilaterally. Left lower quadrant transplant kidney is present. No bowel obstruction, free air, free fluid or abscess. The appendix is normal. No evidence of signi ficant lymphadenopathy. Mild lumbar degenerative changes. IMPRESSION: No acute intra-abdominal or pelvic finding. Diffuse fatty liver. Atrophic [place] kidneys with left lower quadrant transplant kidney. No gross abnormality is seen invo lving the transplant kidney.
--- NOTE | 2022-10-21 10:34 | ER ---
Nurse's Notes [facility] Name: Shoaib Freitas Jr Age: 57 yrs Sex: Male : 1965 Arrival Date: 10/21/2022 Time: 08:03 Bed 15 Private MD: Diagnosis: Abdominal pain, unspecified;Nausea with vomiting, unspecified Presentation: 10/21 08:07 Chief complaint: EMS states: patient called for abdominal pain and distention worsening ko1 over the past 3 days. Also has nausea and vomiting. Patient took a zofran prior to EMS arrival. Coronavirus screen: At this time, the client does not indicate any symptoms associated with coronavirus-19. Ebola Screen: No symptoms or risks identified at this time. Initial Sepsis Screen: Does the patient meet any 2 criteria? No. Patient's initial sepsis screen is negative. Does the patient have a suspected source of infection? No. Patient's initial sepsis screen is negative. Risk Assessment: Do you want to hurt yourself or someone else? Patient reports no desire to harm self or others. Onset of symptoms was October 18, 2022. Care prior to arrival: Medication(s) given: zofran 4 mg, Glucose check: 84. 08:07 Method Of Arrival: EMS: [facility] ko1 08:07 Acuity: COBY 3 ko1 Triage Assessment: 08:09 General: Appears in no apparent distress. uncomfortable, Behavior is calm, cooperative, ko1 appropriate for age. Pain: Complains of pain in abdomen. Historical: - Home Meds: 08:09 Xarelto 20 mg Oral tablet once [Active]; valsartan 40 mg Oral tab 1 tab once daily for ko1 Hypertension [Active]; prednisone 5 mg Oral tab once daily [Active]; diltiazem HCl 240 mg Oral cpER 1 cap once daily for Hypertension [Active]; CellCept Oral [Active]; - PMHx: 08:09 diabetes mellitus; Gall Stones; history of dialysis; Hypertension; kidney transplant; ko1 Pancreatitis; - PSHx: 08:09 kidney transplant; ko1 - Immunization history:: Adult Immunizations up to date. - Social history:: Smoking status: Patient denies any tobacco usage or history of. Screenin:15 [facility] ED Fall Risk Assessment (Adult) History of falling in the last 3 months, ko1 including since admission No falls in past 3 months (0 pts) Confusion or Disorientation No (0 pts) Intoxicated or Sedated No (0 pts) Impaired Gait No (0 pts) Mobility Assist Device Used No (0 pt) Altered Elimination No (0 pt) Score/Fall Risk Level 0 - 2 = Low Risk Oriented to surroundings, Maintained a safe environment, Educated pt \T\ family on fall prevention, incl call for assistance when getting out of bed, Assessed \T\ reinforced patient's understanding of fall precautions, Provided non-skid footwear, Hourly rounding (assess needs \T\ fall precautionary measures) done, Used ambulatory aids as needed (educated on \T\ assisted with), Used gait belt as appropriate. Abuse screen: Denies threats or abuse. Denies injuries from another. Nutritional screening: No deficits noted. Tuberculosis screening: No symptoms or risk factors identified. Assessment: 09:15 Neuro: No deficits noted. Cardiovascular: No deficits noted. Respiratory: No deficits ko1 noted. GI: No deficits noted. : No deficits noted. EENT: No deficits noted. Derm: No deficits noted. Musculoskeletal: No deficits noted. Vital Signs: 08:07 BP 144 / 81; Pulse 70; Resp 18; Temp 98.8; Pulse Ox 98% on R/A; ko1 09:15 BP 138 / 72; Pulse 68; Resp 16; Pulse Ox 98% ; ko1 ED Course: 08:07 Patient arrived in ED. ko1 08:09 Triage completed. ko1 08:09 Arm band placed on right wrist. Patient placed in an exam room, on engraver apprentice decorative, on ko1 pulse oximetry, Patient notified of wait time. 08:10 Maeve Mccormack FNP-C is PHCP. snw 08:10 James Carlin DO is Attending Physician. snw 08:18 Janey Fonseca, PRINCESS is Primary Nurse. ko1 09:06 Inserted saline lock: 20 gauge in left upper arm, using aseptic technique. ,using ss aseptic technique. US GUIDED Blood collected. 09:07 Urine W/Microscopic (UAM) Sent. ko1 09:08 XRAY Chest (1 view) In Process Unspecified. EDMS 09:15 Patient has correct armband on for positive identification. Bed in low position. Call ko1 light in reach. Side rails up X 1. Provided Education on: meds. Pulse ox on. NIBP on. Door closed. Noise minimized. Lights dimmed. Warm blanket given. 09:15 No provider procedures requiring assistance completed. ko1 09:52 CT Abd/Pelvis - IV Contrast Only In Process Unspecified. EDMS 11:54 IV discontinued, intact, bleeding controlled, No redness/swelling at site. Pressure ko1 dressing applied. Administered Medications: 10:02 Drug: NS 0.9% IV 1000 ml Route: IV; Rate: 1 bolus; Site: left antecubital; ko1 10:40 Drug: Promethazine IVP 25 mg Route: IVP; Site: left antecubital; ko1 10:40 Drug: NS 0.9% IV 250 ml Route: IV; Rate: bolus; Site: left antecubital; ko1 10:40 Drug: Dicyclomine PO 20 mg Route: PO; ko1 11:47 Drug: Mucomyst - Acetylcysteine PO 600 mg Route: PO; ko1 Medication: 09:15 VIS not applicable for this client. ko1 Outcome: 10:33 Discharge ordered by . rodrigo 11:54 Discharged to home ambulatory, with family. ko1 11:54 Condition: stable 11:54 Discharge instructions given to patient, Instructed on discharge instructions, follow up and referral plans. medication usage, Demonstrated understanding of instructions, follow-up care, medications, Prescriptions given X 2. 12:03 Patient left the ED. ld1 Signatures: Dispatcher [employer] EDNM Maeve Mccormack, RESEARCH LABORATORY MANAGER-C RESEARCH LABORATORY MANAGER-Csnw Tere Mixon RN RN ss Sims, Lauren, RN RN ld1 Janey Fonseca RN RN ko1
--- NOTE | 2022-10-21 10:34 | EDPHYS ---
Physician Documentation [facility] Name: Shoaib Freitas Jr Age: 57 yrs Sex: Male : 1965 Arrival Date: 10/21/2022 Time: 08:03 Bed 15 Private MD: ED Physician James Carlin HPI: 10/21 08:37 This 57 yrs old Black Male presents to ER via EMS with complaints of abd snw pain/distention. 08:37 The patient presents with abdominal pain that is diffuse. Onset: The symptoms/episode snw began/occurred acutely, 3 day(s) ago, and became persistent. The symptoms do not radiate. Associated signs and symptoms: Pertinent positives: nausea and vomiting, distention. The symptoms are described as vague. Severity of pain: At its worst the pain was moderate in the emergency department the pain is unchanged. The patient has not experienced similar symptoms in the past. It is unknown whether or not the patient has recently seen a physician. pt with kidney transplant, pt believes his gallbladder has been removed. Historical: - Home Meds: 08:09 Xarelto 20 mg Oral tablet once [Active]; valsartan 40 mg Oral tab 1 tab once daily for ko1 Hypertension [Active]; prednisone 5 mg Oral tab once daily [Active]; diltiazem HCl 240 mg Oral cpER 1 cap once daily for Hypertension [Active]; CellCept Oral [Active]; - PMHx: 08:09 diabetes mellitus; Gall Stones; history of dialysis; Hypertension; kidney transplant; ko1 Pancreatitis; - PSHx: 08:09 kidney transplant; ko1 - Immunization history:: Adult Immunizations up to date. - Social history:: Smoking status: Patient denies any tobacco usage or history of. ROS: 08:37 Constitutional: Negative for fever, chills, and weight loss, Eyes: Negative for injury, snw pain, redness, and discharge, ENT: Negative for injury, pain, and discharge, Neck: Negative for injury, pain, and swelling, Cardiovascular: Negative for chest pain, palpitations, and edema, Respiratory: Negative for shortness of breath, cough, wheezing, and pleuritic chest pain, Back: Negative for injury and pain, : Negative for injury, bleeding, discharge, and swelling, MS/Extremity: Negative for injury and deformity, Skin: Negative for injury, rash, and discoloration, Neuro: Negative for headache, weakness, numbness, tingling, and seizure, Psych: Negative for depression, anxiety, suicide ideation, homicidal ideation, and hallucinations. 08:37 Abdomen/GI: Positive for abdominal pain, nausea and vomiting, abdominal distension. Exam: 08:37 Constitutional: This is a well developed, well nourished patient who is awake, alert, snw and in no acute distress. Head/Face: Normocephalic, atraumatic. Eyes: Pupils equal round and reactive to light, extra-ocular motions intact. Lids and lashes normal. Conjunctiva and sclera are non-icteric and not injected. Cornea within normal limits. Periorbital areas with no swelling, redness, or edema. 08:37 Neck: Trachea midline, no thyromegaly or masses palpated, and no cervical lymphadenopathy. Supple, full range of motion without nuchal rigidity, or vertebral point tenderness. No Meningismus. Chest/axilla: Normal chest wall appearance and motion. Nontender with no deformity. No lesions are appreciated. Cardiovascular: Regular rate and rhythm with a normal S1 and S2. No gallops, murmurs, or rubs. Normal PMI, no JVD. No pulse deficits. Respiratory: Lungs have equal breath sounds bilaterally, clear to auscultation and percussion. No rales, rhonchi or wheezes noted. No increased work of breathing, no retractions or nasal flaring. 08:37 Back: No spinal tenderness. No costovertebral tenderness. Full range of motion. Skin: Warm, dry with normal turgor. Normal color with no rashes, no lesions, and no evidence of cellulitis. MS/ Extremity: Pulses equal, no cyanosis. Neurovascular intact. Full, normal range of motion. Neuro: Awake and alert, GCS 15, oriented to person, place, time, and situation. Cranial nerves II-XII grossly intact. Motor strength 5/5 in all extremities. Sensory grossly intact. Cerebellar exam normal. Normal gait. Psych: Awake, alert, with orientation to person, place and time. Behavior, mood, and affect are within normal limits. 08:37 ENT: Dental exam: fractured teeth are noted, missing teeth, diffusely. 08:37 Abdomen/GI: Inspection: distension, that is mild, Bowel sounds: diminished, in all quadrants, absent, Palpation: mild abdominal tenderness, in all quadrants. Vital Signs: 08:07 BP 144 / 81; Pulse 70; Resp 18; Temp 98.8; Pulse Ox 98% on R/A; ko1 09:15 BP 138 / 72; Pulse 68; Resp 16; Pulse Ox 98% ; ko1 MDM: 08:10 Patient medically screened. snw 10:35 Differential diagnosis: diverticulitis, gastritis, gastroesophageal reflux disease, snw non-specific abd pain, pancreatitis. Data reviewed: vital signs, nurses notes. I considered the following discharge prescriptions or medication management in the emergency department Medications were administered in the Emergency Department. See MAR. Special discussion: Based on the patient's Hx, exam, and Dx evaluation, there is no indication for emergent surgery or inpatient Tx. It is understood by the patient/guardian that if the Sx's persist or worsen they need to return immediately for re-evaluation. I have referred the patient to see his PCP for further evaluation of high blood pressure. Based on the history and exam findings, there is no indication for further emergent testing or inpatient evaluation. I discussed with the patient/guardian the need to see the primary care provider for further evaluation of the symptoms. 10/21 08:19 Order name: Basic Metabolic Panel; Complete Time: 09:40 snw 10/21 08:19 Order name: CBC with Diff; Complete Time: 09:18 snw 10/21 08:19 Order name: LFT's; Complete Time: 09:40 snw 10/21 08:19 Order name: Magnesium; Complete Time: 09:40 snw 10/21 08:19 Order name: NT PRO-BNP; Complete Time: 09:40 snw 10/21 08:19 Order name: PT-INR; Complete Time: 09:49 snw 10/21 08:19 Order name: Troponin HS; Complete Time: 09:40 snw 10/21 08:19 Order name: Lipase; Complete Time: 09:40 snw 10/21 08:19 Order name: Urine W/Microscopic (UAM); Complete Time: 09:40 snw 10/21 08:19 Order name: Lactate w/ 2H reflex if indic.; Complete Time: 09:40 snw 10/21 08:19 Order name: Procalcitonin; Complete Time: 09:57 snw 10/21 08:19 Order name: XRAY Chest (1 view); Complete Time: 09:40 snw 10/21 08:24 Order name: CT Abd/Pelvis - IV Contrast Only; Complete Time: 10:14 snw 10/21 08:19 Order name: EKG; Complete Time: 08:20 snw 10/21 08:19 Order name: Cardiac monitoring; Complete Time: 08:40 snw 10/21 08:19 Order name: EKG - Nurse/Tech; Complete Time: 08:40 snw 10/21 08:19 Order name: IV Saline Lock; Complete Time: 09:01 snw 10/21 08:19 Order name: Labs collected and sent; Complete Time: 09:07 snw 10/21 08:19 Order name: O2 Per Protocol; Complete Time: 08:40 snw 10/21 08:19 Order name: O2 Sat Monitoring; Complete Time: 08:40 snw EC:38 Rate is 71 beats/min. Rhythm is regular. QRS [place] is Normal. PA interval is normal. QRS snw interval is normal. QT interval is normal. Q waves are Present in lead III. T waves are Inverted in lead aVR. Clinical impression: NSR w/ Non-specific ST/T Changes. Administered Medications: 10:02 Drug: NS 0.9% IV 1000 ml Route: IV; Rate: 1 bolus; Site: left antecubital; ko1 10:40 Drug: Promethazine IVP 25 mg Route: IVP; Site: left antecubital; ko1 10:40 Drug: NS 0.9% IV 250 ml Route: IV; Rate: bolus; Site: left antecubital; ko1 10:40 Drug: Dicyclomine PO 20 mg Route: PO; ko1 11:47 Drug: Mucomyst - Acetylcysteine PO 600 mg Route: PO; ko1 Disposition: 15:39 Co-signature as Attending Physician, James ESTES was immediately available on-site ms3 in the Emergency Department for consultation in the care of the patient. Disposition Summary: 10/21/22 10:33 Discharge Ordered Location: Home snw Condition: Stable snw Diagnosis - Abdominal pain, unspecified snw - Nausea with vomiting, unspecified snw Followup: snw - With: Private Physician - When: 1 - 2 days - Reason: Recheck today's complaints, Continuance of care, Re-evaluation by your physician Followup: snw - With: Emergency Department - When: As needed - Reason: Worsening of condition Discharge Instructions: - Discharge Summary Sheet snw - Abdominal Pain, Adult snw - Colic snw - Nausea and Vomiting, Adult snw - [place] Diet snw Forms: - Medication Reconciliation Form snw - Thank You Letter snw - Antibiotic Education snw - Prescription Opioid Use snw - Patient Portal Instructions.htm snw - Work release form ld1 Prescriptions: - promethazine 25 mg Oral Tablet - take 1 tablet by ORAL route every 6 hours As needed; 20 tablet; Refills: 0, snw Product Selection Permitted - dicyclomine 20 mg Oral Tablet - take 1 tablet by ORAL route 3 times per day; 21 tablet; Refills: 0, Product snw Selection Permitted Signatures: Dispatcher [employer] EDMaeve Gomez FNP-C HOOK AND EYE SEWING MACHINE OPERATOR-Rafaelw James Carlin DO DO ms3 Janey Fonseca, RN RN ko1
[2022-10-21] MEDS ORDERED: DICYCLOMINE HCL 10 MG CAP ONE (10:46)
[2022-10-21] MEDS ORDERED: PROMETHAZINE INJ 25 MG/ML AMP ONE (10:46)
[2022-10-21] MEDS ORDERED: ACETYLCYST 20% 800 MG/4 ML VIAL PO SCH ×2 (11:00)
[2022-10-21 12:23] VITALS: TEMP 98.8; O2SAT 98
[2022-10-21 12:25] VITALS: BP 138/72
--- NOTE | 2022-10-21 20:20 | EKG ---
Test Date: 2022-10-21 Test Time: 08:37:05 Breaker Off: ELEONORA MEASUREMENT RESULTS: Intervals: Rate: 71 OK: 132 QRSD: 112 QT: 392 QTc: 425 [place]: P: 37 OK: 132 QRS: 29 T: 29 INTERPRETIVE STATEMENTS: Normal sinus rhythm Normal ECG Compared to ECG 04/23/2022 02:53:44 Ventricular premature complex(es) no longer present Electronically Signed On 10-21-22 20:18:27 CDT by Sundar Roa
== END 2022-10-21 12:03 | disposition home or self-care (01) ==
LOC: ER 08:03
DX: R10.84 Generalized abdominal pain (principal); R11.2 Nausea with vomiting, unspecified; E11.9 Type 2 diabetes mellitus without complications; I10 Essential (primary) hypertension; Z99.2 Dependence on renal dialysis; Z94.0 Kidney transplant status; Z79.01 Long term (current) use of anticoagulants
CPT/HCPCS: 93005; 85025; 81001; 80048; 36415; 83735; 85610; 80076; 83605; 84484; 83690; 84145; 83880; 74177; 71045; 96374; 99285; Q9967; J2550; J7030

== ENCOUNTER → 2023-01-16 | Emergency (ER) | payer OTHER ==
--- OUTSIDE RECORDS SUMMARY | 2023-01-16 11:43 | XMS REPORT | Continuity of Care Document ---
:[address] [facility] [place], [place] t Address [address] [facility] [address] [facility] [address] [place] [address] Care Team Providers Name Role Phone Peter ALVAREZ, Terrence Gerardo Primary Care Physician [phone] Mellissa ALVAREZ, Guzman Lim Attending Clinician [phone] Ogbechie_L Attending Clinician Unavailable Genesis Watts Attending Clinician Ernie ALVAREZ, Juan Dominguez Attending Clinician Micheal Perdomo MD Attending Clinician Félix SÁNCHEZ, Gabriela Magdaleno Attending Clinician Unavailable Only, Adc Test Attending Clinician Unavailable Tay Hsu MD Attending Clinician TAY HSU Attending Clinician Unavailable Usha FABIAN Attending Clinician Unavailable Ogbechie_Vanessa Admitting Clinician Unavailable Payers Payer Name Policy Type Policy Number Effective Date Expiration Date [facility] [id number] 2022 (MEDICARE 00:00:00 REPLACEMENT [...] 2017-04 [facility] liver [address] [facility] 00:00: Hospita 00 l Cholelithi Cholelithi Disease Active 2017-04 M roger asikassidy asis 0 [facility] 00:00: Hospita 00 l Allergies, Adverse Reactions, Alerts Allergy Allergy Status Severity Reaction(s) Onset Inactive Treating Comm ents Source Name Type Date Date Clinician NO KNOWN Drug Active Univers ALLERGIE Class ity of S [facility] Family History Family Member Diagnosis Comments Start Date Stop Date Source Natural father Hypertension [facility] Natural mother Heart disease [facility] Natural mother Hypertension [facility] Natural sister Diabetes [facility] Social History Social Habit Start Date Stop Date Quantity Comments Source History of tobacco Current smoker [facility] identity [facility] Exposure to Not sure [facility] SARS-CoV-2 (event) Hospit al Sexual orientation [facility] History of Social 2018-11-28 2018-11-[address] function 00:00:00 00:00:00 Hospital Tobacco use and 2018-01-15 2018-01-15 Smokeless Islam exposure 00:00:00 00:00:00 tobacco non-user Hospital Tobacco Comment 2018-01-15 2018-01-15 "Quit 2-3 months Met [facility]odist 00:00:00 00:00:00 ago" Hospital Alcohol intake 2016-03-26 2016-03-26 Current [facility] 00:00:00 00:00:00 non-drinker of Medical Ce nter alcohol (finding) Sex Ass[birth year] At [birth year] [facility] 00:00:00 00:00:00 [facility] Center Smoking Status Start Date Stop Date Source Unknown if ever smoked [facility] Ex-smoker 2018-01-15 00:00:00 2018-01-15 [facility] 00:[facility]:00 Occasional tobacco 2016-03-26 00:00:00 [facility] smoker Center Medications Ordered Filled [...] Clinician Source Performed URINE CULTURE 2022-09-18 13:15:00 [facility] MAGNESIUM LEVEL 2022-09-18 13:15:00 Charles MalloyJethro [facility] PHOSPHORUS LEVEL 2022-09-18 13:15:00 [facility] METABOLIC 2022-09-18 13:15:00 Guzman Malloy [facility] PANEL [facility]hael CBC WITH PLATELET AND 2022-09-18 13:15:00 Malloy, [facility] DIFFERENTIAL Raphael PROTEIN, URINE, RANDOM 2022-09-18 13:15:00 Mellissa [facility] Raphael CREATININE LEVEL, URINE, 2022-09-18 13:15:00 [facility] RANDOM [facility] URINALYSIS SCREEN AND 2022-09-18 [facility] TO CULTURE LDH 2022-09-18 13:15[facility] URIC ACID LEVEL 2022-09-18 13:15:00 [facility] CYCLOSPORINE LEVEL, 2022-09-18 13:15:00 [facility] TROUGH Raphael LIPID PANEL 2022-09-18 13:15:00 [facility] Rahpael ESTIMATED GFR 2022-09-18 13:15:00 [facility] MAGNESIUM LEVEL 2022-06-05 15:44:00 [facility] CBC WITH PLATELET AND 2022-06-05 15:44:00 [facility] DIFFERENTIAL COMPREHENSIVE METABOLIC 2022-06-05 15:44:00 [facility] PANEL PROTEIN, URINE, RANDOM 2022-06-05 15:44:00 [facility] CREATININE LEVEL, URINE, 2022-06-05 15:44:00 [facility] RANDOM PHOSPHORUS LEVEL 2022-06-05 15:44:00 [facility] URINALYSIS, AUTOMATED 2022-06-05 15:44:00 [facility] WITH MICROSCOPY LDH 2022-06-05 15:44:00 [facility] PARATHYROID HORMONE 2022-06-05 15:44:00 [facility] VITAMIN D 25 HYDROXY 2022-06-05 15:44:00 [facility] L[facility] LIPID PANEL 2022-06-05 15:44:00 Juan Klein [facility] CYCLOSPORINE LEVEL, 2022-06-05 15:44:00 Juan Klein [facility] TROUGH ESTIMATED GFR 2022-06-05 15:44:00 Juan Klein [facility] URINE CULTURE 2022-01-30 14:44:00 Juan Klein [facility] CBC WITH PLATELET AND 2022-01-30 14:44:00 [facility] DIFFERENTIAL MAGNESIUM LEVEL 2022-01-30 14:44:00 Juan Klein [facility] PHOSPHORUS LEVEL 2022-01-30 14:44:00 Juan Klein [facility] URIC ACID LEVEL 2022-01-30 14:44:00 Juan Klein [facility] LDH 2022-01-30 14:44:00 Juan Klein [facility] URINALYSIS SCREEN AND 2022-01-30 14:44:00 Juan Klein [facility] MICROSCOPY, WITH REFLEX TO CULTURE PROTEIN, URINE, RANDOM 2022-01-30 14:44:00 [facility] CREATININE LEVEL, URINE, 2022-01-30 14:44:00 Ernie [facility] RANDOM COMPREHENSIVE METABOLIC 2022-01-30 14:44:00 Juan Klein Viviana [facility] PANEL CYCLOSPORINE LEVEL, 2022-01-30 14:44:00 Juan Klein [facility] RANDOM ESTIMATED GFR 2022-01-30 14:44:00 [facility] 2021-09-05 14:13:00 [facility] CBC WITH PLATELET AND 2021-09-05 14:13:00 [facility] DIFFERENTIAL MAGNESIUM LEVEL 2021-09-05 14:13:00 Juan Klein [facility] PHOSPHORUS LEVEL 2021-09-05 14:13:00 Ernie [facility] URIC ACID LEVEL 2021-09-05 14:13:00 Juan Klein [facility] LDH 2021-09-05 14:13:00 Ernie[facility] 2021-09-05 14:13:00 [facility] MICROSCOPY, WITH REFLEX TO CULTURE PROTEIN, URINE, RANDOM 2021-09-05 14:13:00 [facility] CREATININE LEVEL, URINE, 2021-09-05 14:13:00 [facility] RANDOM COMPREHENSIVE METABOLIC 2021-09-05 14:13:00 [facility] PANEL CYCLOSPORINE LEVEL, 2021-09-05 14:13:00 [facility] RANDOM ESTIMATED GFR 2021-09-05 14:13:00 [facility] URINE CULTURE 2021-04-15 14:00:00 [facility] HC COMPLETE BLD COUNT 2021-04-15 14:00:00 [facility] W/AUTO DIFF MAGNESIUM LEVEL 2021-04-15 14:00:00 [facility] PHOSPHORUS LEVEL 2021-04-15 14:00:00 [facility] URIC ACID LEVEL 2021-04-15 14:00:00 [facility] LDH 2021-04-15 14:00:00 [facility] URINALYSIS SCREEN AND 2021-04-15 14:00:00 [facility] MICROSCOPY, WITH REFLEX TO CULTURE PROTEIN, URINE, RANDOM 2021-04-15 14:00:00 [facility] CREATININE LEVEL, URINE, 2021-04-15 14:00:00 [facility] RANDOM CYCLOSPORINE LEVEL, 2021-04-15 14:00:00 [facility] RANDOM COMPREHENSIVE METABOLIC 2021-04-15 14:00:00 [facility] PANEL ESTIMATED GFR 2021-04-15 14:00:00 [facility] URINE CULTURE 2021-03-18 14:23:00 [facility] HC COMPLETE BLD COUNT 2021-03-18 14:23:00 [facility] W/AUTO DIFF MAGNESIUM LEVEL 2021-03-18 14:23:00 Juan Klein [facility] PHOSPHORUS LEVEL 2021-03-18 14:23:00 Juan Klein [facility] URIC ACID LEVEL 2021-03-18 14:23:00 Juan Klein [facility] LDH 2021-03-18 14:23:00 Juan Klein [facility] CREATININE LEVEL, URINE, 2021-03-18 14:23:00 Juan Klein [facility] RANDOM URINALYSIS SCREEN AND 2021-03-18 14:23:00 Ernie [facility] MICROSCOPY, WITH REFLEX TO CULTURE PROTEIN, URINE, RANDOM 2021-03-18 14:23:00 [facility] COMPREHENSIVE METABOLIC 2021-03-18 14:23:00 Juan Klein [facility] PANEL CYCLOSPORINE LEVEL, 2021-03-18 14:23:00 [facility] ESTIMATED GFR 2021-03-18 14:23:00 Juan Klein [facility] HC COMPLETE BLD COUNT 2021-03-11 15:30:00 Juan Klein [facility] W/AUTO DIFF MAGNESIUM LEVEL 2021-03-11 15:30:00 Juan Klein [facility] PHOSPHORUS LEVEL 2021-03-11 15:30:00 Juan Klein [facility] URIC ACID LEVEL 2021-03-11 15:30:00 [facility] 2021-03-11 15:30:00 Juan Klein [facility] COMPREHENSIVE METABOLIC 2021-03-11 15:30:00 Ernie [facility] PANEL CYCLOSPORINE LEVEL, 2021-03-11 15:30:00 Juan Klein [facility] RANDOM ESTIMATED GFR 2021-03-11 15:30:00 Juan Klein [facility] URINE CULTURE 2021-03-11 15:15:00 [facility] URINAL[facility] S[facility]EN AND 2021-03-11 15:15:00 Ernie [facility] MICROSCOPY, WITH REFLEX TO CULTURE PROTEIN, URINE, RANDOM 2021-03-11 15:15:00 [facility] CREATININE LEVEL, URINE, 2021-03-11 15:15:00 [facility] RANDOM URINE CULTURE 2021-02-28 15:08:00 [facility] HC COMPLETE BLD COUNT 2021-02-28 15:08:00 [facility] W/AUTO DIFF MAGNESIUM LEVEL 2021-02-28 15:08:00 [facility] PHOSPHORUS LEVEL 2021-02-28 15:08:00 [facility] URIC ACID LEVEL 2021-02-28 15:08:00 [facility] LDH 2021-02-28 15:08:00 [facility] URINALYSIS SCREEN AND 2021-02-28 15:08:00 [facility] MICROSCOPY, WITH REFLEX TO CULTURE PROTEIN, URINE, RANDOM 2021-02-28 15:08:00 [facility] CREATININE LEVEL, URINE, 2021-02-28 15:08:00 [facility] RANDOM COMPREHENSIVE METABOLIC 2021-02-28 15:08:00 [facility] PANEL [id number] TACROLIMUS LEVEL, 2021-02-28 15:08:00 [facility] RANDOM CYCLOSPORINE LEVEL, 2021-02-28 15:08:00 [facility] RANDOM ESTIMATED GFR 2021-02-28 15:08:00 [facility] URINE CULTURE 2020-11-26 14:11:00 [facility] COMPLETE BLD COUNT 2020-11-26 14:11:00 [facility] W/AUTO DIFF MAGNESIUM LEVEL 2020-11-26 14:11:00 [place] [facility] PHOSPHORUS LEVEL 2020-11-26 14:11:00 [place] [facility] ACID LEVEL 2020-11-26 14:11:00 Juan Klein [facility] LDH 2020-11-26 14:11:00 Juan Klein [facility] URINALYSIS SCREEN AND 2020-11-26 14:11:00 Ernie [facility] MICROSCOPY, WITH REFLEX TO CULTURE CREATININE LEVEL, URINE, 2020-11-26 14:11:00 Ernie [facility] RANDOM PROTEIN, URINE, RANDOM 2020-11-26 14:11[facility] CY[facility], 2020-11-26 14:11:00 Juan Klein [facility] RANDOM PARATHYROID HORMONE 2020-11-26 14:11[facility] 25 HYDROXY 2020-11-26 14:11:00 Juan Klein Manuel [facility] LEVEL COMPREHENSIVE METABOLIC 2020-11-26 14:11:00 Juan Klein [facility] PANEL ESTIMATED GFR 2020-11-26 14:11:00 Juan Klein [facility] URINE CULTURE 2020-09-13 15:29:00 Juan Klein [facility] HC COMPLETE BLD COUNT 2020-09-13 15:29:00 Ernie [facility] W/AUTO DIFF MAGNESIUM LEVEL 2020-09-13 15:29:00 [facility] PHOSPHORUS LEVEL 2020-09-13 15:29:00 Juan Klein [facility] URIC ACID LEVEL 2020-09-13 15:29:00 Juan Klein [facility] LDH 2020-09-13 15:29:00 Juan Klein [facility] URINALYSIS SCREEN AND 2020-09-13 15:29:00 Ernie [facility] MICROSCOPY, WITH REFLEX TO CULTURE CREATININE LEVEL, URINE, 2020-09-13 15:29:00 Ernie [facility] RANDOM PROTEIN, URINE, RANDOM 2020-09-13 15:29:00 [facility] COMPREHENSIVE METABOLIC 2020-09-13 15:29:00 Ernie [facility] PANEL CYCLOSPORINE LEVEL, 2020-09-13 15:29:00 Juan Klein [facility] RANDOM PARATHYROID HORMONE 2020-09-13 15:29:00 Juan Klein [facility] VITAMIN D 25 HYDROXY 2020-09-13 15:29:00 Juan Klein [facility] LEVEL ESTIMATED GFR 2020-09-13 15:29:00 Juan Klein [facility] SMEAR REVIEW 2020-09-13 15:29:00 Juan Klein [facility] URINE CULTURE 2020-09-03 13:21:00 Juan Klein [facility] HC COMPLETE BLD COUNT 2020-09-03 13:21:00 Ernie [facility] W/AUTO DIFF MAGNESIUM LEVEL 2020-09-03 13:21:00 Ernie [facility] PHOSPHORUS LEVEL 2020-09-03 13:21:00 Ernie [facility] URIC ACID LEVEL 2020-09-03 13:21:00 Juan Klein [facility] LDH 2020-09-03 13:21:00 Juan Klein [facility] URINALYSIS SCREEN AND 2020-09-03 13:21:00 [place] [facility] MICROSCOPY, WITH REFLEX TO CULTURE CREATININE LEVEL, URINE, 2020-09-03 13:21:00 [facility] RANDOM PROTEIN, URINE, RANDOM 2020-09-03 13:21:00 [facility] COMPREHENSIVE METABOLIC 2020-09-03 13:21:00 Juan Klein Viviana [facility] PANEL CYCLOSPORINE LEVEL, 2020-09-03 13:21:00 Juan Klein [facility] RANDOM PARATHYROID HORMONE 2020-09-03 13:21:00 Ernie [facility] VITAMIN D 25 HYDROXY 2020-09-03 13:21:00 Juan Klein [facility] LEVEL ESTIMATED GFR 2020-09-03 13:21:00 Ernie [facility] URINE CULTURE 2020-06-06 15:13:00 Micheal Perdomo [facility] METABOLIC 2020-06-06 15:13:00 [facility] PANEL HC COMPLETE BLD COUNT 2020-06-06 15:13:00 [facility] W/AUTO DIFF MAGNESIUM LEVEL 2020-06-06 15:13:00 [facility] PHOSPHORUS LEVEL 2020-06-06 15:13:00 [facility] URIC ACID LEVEL 2020-06-06 15:13:00 [facility] LDH 2020-06-06 15:13:00 [facility] URINALYSIS SCREEN AND 2020-06-06 15:13:00 [facility] MICROSCOPY, WITH REFLEX TO CULTURE CREATININE LEVEL, URINE, 2020-06-06 15:13:00 [facility] RANDOM CYCLOSPORINE LEVEL, 2020-06-06 15:13:00 [facility] RANDOM PROTEIN, URINE, RANDOM 2020-06-06 15:13:00 [facility] ESTIMATED GFR 2020-06-06 15:13:00 [facility] URINE CULTURE 2020-01-30 12:52:00 [facility] COMPREHENSIVE METABOLIC 2020-01-30 12:52:00 [facility] PANEL HC COMPLETE BLD COUNT 2020-01-30 12:52:00 [facility] W/AUTO DIFF MAGNESIUM LEVEL 2020-01-30 12:52:00 [facility] PHOSPHORUS LEVEL 2020-01-30 12:52:00 [facility] URIC ACID LEVEL 2020-01-30 12:52:00 [facility] LDH 2020-01-30 12:52:00 [facility] URINALYSIS SCREEN AND 2020-01-30 12:52:00 [facility] MICROSCOPY, WITH REFLEX TO CULTURE CREATININE LEVEL, URINE, 2020-01-30 12:52:00 [facility] RANDOM PROTEIN, URINE, RANDOM 2020-01-30 12:52:[address] [facility] CYCLOSPORINE LEVEL, 2020-01-30 12:52:00 Juan Klein [facility] RANDOM ESTIMATED GFR 2020-01-30 12:52:00 Juan Klein [facility] Plan of Care Planned Activity Planned Date Details Comments Source Future Scheduled 2022-12-13 Screening for [facility] Test 21:51:29 malignant neoplasm of colon (procedure) [code = 712970090] Future Scheduled 2022-12-13 Screening for [facility] Test 21:51:29 malignant neoplasm of colon (procedure) [code = 023505082] Future Scheduled 2022-12-13 Screening for [facility] Test 21:51:29 malignant neoplasm of colon (procedure) [code = 372299802] Future Scheduled 2022-12-13 Screening for [facility] Test 21:51:29 malignant neoplasm of colon (procedure) [code = 892724856] Future Scheduled 2022-12-13 Screening for [facility] Test 21:51:29 malignant neoplasm of colon (procedure) [code = 574227653] Future Scheduled 2022-12-13 SHINGLES VACCINES (1 [facility] Test 21:51:29 of 2) [code = SHINGLES VACCINES (1 of 2)] Future Scheduled 2022-12-13 COVID-19 VACCINE (2 - [facility] Test 21:51:29 Moderna series) [code = COVID-19 VACCINE (2 - Moderna series)] Future Scheduled 2022-12-13 INFLUENZA VACCINE (#1) [facility] Test 21:51:29 [code = INFLUENZA VACCINE (#1)] Future Scheduled 2022-10-07 Screening for [facility] Test 11:52:00 malignant neoplasm of colon (procedure) [code = 146393745] Future Scheduled 2022-10-07 Screening for [facility] Test 11:52:00 malignant neoplasm of colon (procedure) [code = 378563602] Future Scheduled 2022-10-07 Screening for [facility] Test 11:52:00 malignant neoplasm of colon (procedure) [code = 257389751] Future Scheduled 2022-10-07 Screening for [facility] Test 11:52:00 malignant neoplasm of colon (procedure) [code = 341370614] Future Scheduled 2022-10-07 [facility] Test 11:52:00 malignant neoplasm of colon (procedure) [code = 566742035] Future Scheduled 2022-10-07 SHINGLES VACCINES (1 Met [facility] Hospital Test 11:52:00 of 2) [code = SHINGLES VACCINES (1 of 2)] Future Scheduled 2022-10-07 COVID-19 VACCINE (2 - [facility] Test 11:52:00 Moderna series) [code = COVID-19 VACCINE (2 - Moderna series)] Future Scheduled 2022-10-[address] [facility] Hospital Test 11:52:00 [code = INFLUENZA VACCINE] Future Scheduled 2022-07-17 COLONOSCOPY SCREENING [facility] Test 02:57:42 [code = COLONOSCOPY SCREENING] Future Scheduled 2022-07-17 SHINGLES VACCINES (1 [facility] Test 02:57:42 of 2) [code = SHINGLES VACCINES (1 of 2)] Future Scheduled 2022-07-17 COVID-19 VACCINE (2 - [facility] Test 02:57:42 Moderna series) [code = COVID-19 VACCINE (2 - Moderna series)] Future Scheduled 2022-07-[address] [facility] Hospital Test 02:57:42 [code = INFLUENZA VACCINE] Future Scheduled 2022-06-18 COLONOSCOPY SCREENING [facility] Test 14:06:44 [code = COLONOSCOPY SCREENING] Future Scheduled 2022-06-18 SHINGLES VACCINES (1 Met [facility] Hospital Test 14:06:44 of 2) [code = SHINGLES VACCINES (1 of 2)] Future Scheduled 2022-06-18 COVID-19 VACCINE (2 - [facility] Test 14:06:44 Moderna series) [code = COVID-19 VACCINE (2 - Moderna series)] Future Scheduled 2022-06-[address] [facility] Hospital Test 14:06:44 [code = INFLUENZA VACCINE] Future Scheduled 2022-03-26 COLONOSCOPY SCREENING [facility] Test 23:31:27 [code = COLONOSCOPY SCREENING] Future Scheduled 2022-03-26 SHINGLES VACCINES (1 Met [facility] Hospital Test 23:31:27 of 2) [code = SHINGLES VACCINES (1 of 2)] Future Scheduled 2022-03-26 COVID-19 VACCINE ([facility] - [facility] Test 23:31:27 Moderna series) [code = COVID-19 VACCINE (2 - Moderna series)] Future Scheduled 2022-03-[address] [facility] Hospital Test 23:31:27 [code = INFLUENZA VACCINE] Future Scheduled 2022-02-07 HEPATITIS B VACCINES [facility] Test 08:46:41 (1 of 3 - 3-dose series) [code = HEPATITIS B VACCINES (1 of 3 - 3-dose series)] Future Scheduled 2022-02-07 Pneumococcal Vaccine: [facility] Test 08:46:41 Pediatrics (0 to 5 Years) and At-Risk Patients (6 to 64 Years) (1 - PCV) [code = Pneumococcal Vaccine: Pediatrics (0 to 5 Years) and At-Risk Patients (6 to 64 Years) (1 - PCV)] Future Scheduled 2022-02-07 Hepatitis C screening [facility] Test 08:46:41 (procedure) [code = 280842574] Future Scheduled 2022-02-07 SHINGLES VACCINES (1 [facility] Test 08:46:41 of 2) [code = SHINGLES VACCINES (1 of 2)] Future Scheduled 2022-02-07 COLONOSCOPY SCREENING [facility] Test 08:46:41 [code = COLONOSCOPY SCREENING] Future Scheduled 2022-02-07 COVID-19 VACCINE (2 - [facility] Test 08:46:41 Moderna risk series) [code = COVID-19 VACCINE (2 - Moderna risk series)] Future Scheduled 2022-02-[address] [facility] Hospital Test 08:46:41 [code = INFLUENZA VACCINE] Future Scheduled 2021-04-15 [facility] Test 08:27:26 (procedure) [code = 633226861] Future Scheduled 2021-04-15 [facility]ING [facility] Test 08:27:26 [code = COLONOSCOPY SCREENING] Future Scheduled 2021-04-15 SHINGLES VACCINES (#1) [facility] Test 08:27:26 [code = SHINGLES VACCINES (#1)] Future Scheduled 2021-04-15 COVID-19 VACCINE (2 - [facility] Test 08:27:26 Moderna risk 4-dose series) [code = COVID-19 VACCINE (2 - Moderna risk 4-dose series)] Future Scheduled 2021-04-15 INFLUENZA VACCINE [facility] Test 08:27:26 [code = INFLUENZA VACCINE] Future Scheduled COVID-19 VACCINE (1) [facility] Test [code = COVID-19 VACCINE (1)] Future Scheduled [facility] (procedure) [code = 351716775] Future Scheduled [facility] [code = COLONOSCOPY SCREENING] Future Scheduled [facility]IN[facility] [code = SHINGLES VACCINES (#1)] Future Scheduled INFLUENZA VACCINE Method [facility] Hospital Test [code = INFLUENZA VACCINE] Encounters Start End Encounter Admission Attending Care Care Encounter Source Date/Time Date/Time Type Type Clinicians Facility Department ID 2022-09-18 2022-09-18 Sol Malloy, [id number] Methodi 08:00:00 08:05:[id number] [facility] [id number] Hospit a .[id number] l .8 2022-09-18 2022-09-18 Lab Mellissa, [id number] Methodi 08:00:00 08:05:[id number] [facility] [id number] Hospit a .[id number] l .8 2022-09-18 2022-09-18 Travel 1.2.840.1 1.2.371.815 0455 [id number] Methodi 00:00:00 00:00:[address] 3.430.2.7 0.2.7.3.698 Ho spita .3.964341 084.8 l .8 2022-09-18 2022-09-18 Travel 1.2.840.1 1.2.328.860 4754 512709 Methodi 00:00:00 00:00:[address] 3.430.2.7 0.2.7.3.698 Ho spita .3.571500 084.8 l .8 2022-08-15 2022-08-15 Outpatient Ogbechie_L DMG DMG 1557 52-202 Devoted 00:00:00 00:00:00 74966 Medica l Group 2022-08-15 2022-08-15 Outpatient Ogbechie_L DMG DMG 1557 52202 Devoted 00:00:00 00:00:00 74310 Medica l Group 2022-08-15 2022-08-15 Outpatient Ogbechie_L DMG DMG 1557 52202 Devoted 00:00:00 00:00:00 66333 Medica l Group 2022-07-11 2022-07-11 TOMAS Hurtado 2.16.840. 2.16.840.1. [facility] [id number] Devoted 20:00:00 21:00:00 Ogbechie 1.868607. 693085.4.6. [facility] 4.6.58457 [id number] 2022-06-24 2022-06-24 Outpatient Ogbechie_L DMG DMG 1557 202 Devoted 00:00:00 00:00:00 10021 Medica l Group 2022-06-05 2022-06-05 Juan Zuniga 1.2.840.1 10 [id number] Methodi 09:25:00 09:30:00 Guzman Malloy Raphael 01635.1.[address] 3.430.2.7 Hospit a .3.821955 l .8 2022-06-05 2022-06-05 Juan Zuniga 1.2.840.1 10 [id number] Methodi 09:25:00 09:30:00 Guzman Malloy Raphael 83537.1.[address] 3.430.2.7 Hospit a .3.430654 l .8 2022-06-05 2022-06-05 Travel 1.2.840.1 1.2.191.031 8747 727394 Methodi 00:00:00 00:00:[address] 3.430.2.7 0.2.7.3.698 Ho spita .3.417619 084.8 l .8 2022-06-05 2022-06-05 Travel 1.2.840.1 1.2.882.733 3300 700295 Methodi 00:00:00 00:00:[address] 3.430.2.7 0.2.7.3.698 Ho spita .3.247571 084.8 l .8 2022 2022 [facility] [id number] Devoted 00:00:00 00:00:00 78505 Medica l Group 2022-01-30 2022-01-30 Lab Ernie, 1.2.840.1 [id number] 2099 795502 Methodi 07:00:00 07:05:00 Juan [address] 84158.1.[address] 3.430.2.7 Hospit a .3.756228 l .8 2022-01-30 2022-01-30 Lab Ernie, 1.2.840.1 [id number] 2099 051098 Methodi 07:00:00 07:05:00 Juan Dominguez [address]794.1.[address] 3.430.2.7 Hospit a .3.386390 l .8 2022-01-30 2022-01-30 Lab Ernie, 1.2.840.1 [id number] 2099 384913 Methodi 06:00:00 06:05:00 Juan Dominguez 24288.1.[address] 3.430.2.7 Hospit a .3.478119 l .8 2022-01-30 2022-01-30 Lab Ernie, 1.2.840.1 [id number] 2100 408958 Methodi 06:00:00 06:05:00 Juan Dominguez [address]252.1.[address] 3.430.2.7 Hospit a .3.015499 l .8 2022-01-30 2022-01-30 Travel 1.2.840.1 1.2.422.670 9115 686667 Methodi 00:00:00 00:00:[address] 3.430.2.7 0.2.7.3.698 Ho spita .3.061591 084.8 l .8 2022-01-30 2022-01-30 Travel 1.2.840.1 1.2.905.685 8069 882895 Methodi 00:00:00 00:00:[address] 3.430.2.7 0.2.7.3.698 Ho spita .3.703254 084.8 l .8 2021-09-05 2021-09-05 Lab Ernie, 1.2.840.1 [id number] 2099 522493 Methodi 06:25:00 06:30:[address] 3.430.2.7 Hospit a .3.353910 l .8 2021-09-05 2021-09-05 Travel 1.2.840.1 1.2.323.204 8849 469093 Methodi 00:00:00 00:00:[address] 3.430.2.7 0.2.7.3.698 Ho spita .3.647253 084.8 l .8 2021-04-15 2021-04-15 Sol Klein, 1.2.840.1 [id number] 2099 082340 Methodi 06:10:00 06:15:[address] 3.430.2.7 Hospit a .3.545271 l .8 2021-04-15 2021-04-15 Travel 1.2.840.1 1.2.457.389 8035 949033 Methodi 00:00:00 00:00:[address] 3.430.2.7 0.2.7.3.698 Ho spita .3.417859 084.8 l .8 2021-03-18 2021-03-18 Lab Ernie, 1.2.840.1 [id number] 2099 716103 Methodi 06:20:00 06:25:00 Juan Dominguez 21912.1.[address] 3.430.2.7 Hospit a .3.871822 l .8 2021-03-18 2021-03-18 Travel 1.2.840.1 1.2.928.936 2664 292756 Methodi 00:00:00 00:00:[address] 3.430.2.7 0.2.7.3.698 Ho spita .3.621553 084.8 l .8 2021-03-11 2021-03-11 Lab Ernie, 1.2.840.1 [id number] 2099 695237 Methodi 09:00:00 09:05:00 Juan Dominguez [address]8555.1.[address] 3.430.2.7 Hospit a .3.962283 l .8 2021-03-11 2021-03-11 Travel 1.2.840.1 1.2.526.868 1949 051889 Methodi 00:00:00 00:00:[address] 3.430.2.7 0.2.7.3.698 Ho spita .3.250165 084.8 l .8 2021-02-28 2021-02-28 Lab Leanne, 1.2.840.1 [id number] 6746 Methodi 08:20:00 08:25:00 Micehal Covarrubias 31921.1.[address] 3.430.2.7 Hospit a .3.620157 l .8 2021-02-28 2021-02-28 Travel 1.2.840.1 1.2.592.988 2361 364692 Methodi 00:00:00 00:00:[address] 3.430.2.7 0.2.7.3.698 Ho spita .3.012891 084.8 l .8 2021-02-25 2021-02-25 Travel 1.2.840.1 1.2.083.314 0686 074878 Methodi 00:00:00 00:00:[address] 3.430.2.7 0.2.7.3.698 Ho spita .3.813804 084.8 l .8 2020-11-26 2020-11-26 Lab Ernie, 1.2.840.1 [id number] Methodi 08:48:26 08:53:26 Juan Dominguez 11513.1.[address] 3.430.2.7 Hospit a .3.023209 l .8 2020-11-26 2020-11-26 Travel 1.2.840.1 1.2.514.175 2069 546131 Methodi 00:00:00 00:00:[address] 3.430.2.7 0.2.7.3.698 Ho spita .3.506465 084.8 l .8 2020-11-15 2020-11-15 Travel 1.2.840.1 1.2.114.776 0666 193044 Methodi 00:00:00 00:00:[address] 3.430.2.7 0.2.7.3.698 Ho spita .3.095049 084.8 l .8 2020-09-13 2020-09-13 Lab Ernie, 1.2.840.1 [id number] Methodi 10:07:34 10:12:34 Juan Dominguez 73148.1.[address] 3.430.2.7 Hospit a .3.829492 l .8 2020-09-13 2020-09-13 Travel 1.2.840.1 1.2.006.849 1465 712786 Methodi 00:00:00 00:00:[address] 3.430.2.7 0.2.7.3.698 Ho spita .3.361445 084.8 l .8 2020-09-03 2020-09-03 Lab Ernie, 1.2.840.1 [id number] Methodi 07:58:11 08:03:11 Juan Dominguez 08642.1.[address] 3.430.2.7 Hospit a .3.266511 l .8 2020-09-03 2020-09-03 Travel 1.2.840.1 1.2.160.431 8890 101169 Methodi 00:00:00 00:00:[address] 3.430.2.7 0.2.7.3.698 Ho spita .3.804899 084.8 l .8 2020-08-29 2020-08-29 Travel 1.2.840.1 1.2.641.514 6532 882398 Methodi 00:00:00 00:00:[address] 3.430.2.7 0.2.7.3.698 Ho spita .3.700877 084.8 l .8 2020-08-13 2020-08-13 Travel 1.2.840.1 1.2.455.207 3869 883524 Methodi 00:00:00 00:00:[address] 3.430.2.7 0.2.7.3.698 Ho spita .3.289842 084.8 l .8 2020-07-30 2020-07-30 Travel 1.2.840.1 1.2.183.306 9983 783841 Methodi 00:00:00 00:00:[address] 3.430.2.7 0.2.7.3.698 Ho spita .3.362221 084.8 l .8 2020-06-07 2020-06-07 Lab Leanne, 1.2.840.1 [id number] 056159 1117 Methodi 07:23:50 07:28:50 Micheal Covarrubias 65974.1.[address] 3.430.2.7 Hospit a .3.443381 l .8 2020-06-06 2020-06-06 Travel 1.2.840.1 1.2.285.348 8501 103541 Methodi 00:00:00 00:00:[address] 3.430.2.7 0.2.7.3.698 Ho spita .3.755450 084.8 l .8 2020-03-18 2020-03-18 Telephone WINSTON Heard 1.2.593.742 4094 8754 00:00:00 00:00:00 Gabriela TARIQ [address]686 233.3552482 019 2020-03-18 2020-03-18 Telephone WINSTON Heard 1.2.853.495 0074 8754 Univers 00:00:00 00:00:00 Gabriela TARIQ 350.1.13.10 i ty [facility] 4.2.7.2.686 [place] as [id number] [address] 2020-03-16 2020-03-16 Laboratory Only, [facility] 1.2.840.114 7 [id number] 15:00:29 15:15:29 Only Test [place] 350.1.13.10 [place] 4.2.7.2.686 [place] [id number] [facility] 2020-03-16 2020-03-16 Laboratory Only, [facility] Test [facility] 1.2.840. 114 [id number] Univers 15:00:29 15:15:29 Only Tay [place] 350.1.13.10 [facility] 4.2.7.2.686 [facility] [id number] [address] 2020-03-16 2020-03-16 Outpatient R JAZLYN [facility] [id number] 709 Univers 15:15:00 15:15:00 TAY gant [facility] 2020-01-30 2020-01-30 Lab Ernie 1.2.840.1 [id number] 2099 857502 Methodi 04:42:28 04:47:28 Juan Covarrubias [address]4500.1.[address] 3.430.2.7 Hospit a .3.323924 l .8 2020-01-30 2020-01-30 Travel 1.2.840.1 1.2.727.892 5711 393265 Methodi 00:00:00 00:00:[address] 3.430.2.7 0.2.7.3.698 Ho spita .3.803126 084.8 l .8 2020-01-23 2020-01-23 Lab Ernie, 1.2.840.1 [id number] 2099 817771 Methodi 04:55:00 05:00:00 Juan Covarrubias 23523.1.[address] 3.430.2.7 Hospit a .3.870266 l .8 2020-01-23 2020-01-23 Travel 1.2.840.1 1.2.365.324 3851 945459 Methodi 00:00:00 00:00:[address] 3.430.2.7 0.2.7.3.698 Ho spita .3.806487 084.8 l .8 2020-01-09 2020-01-09 Lab Ernie, 1.2.840.1 [id number] 2099 933864 Methodi 05:05:00 05:10:00 Juan Covarrubias 18368.1.[address] 3.430.2.7 Hospit a .3.719300 l .8 2020-01-09 2020-01-09 Travel 1.2.840.1 1.2.084.903 7424 256920 Methodi 00:00:00 00:00:[address] 3.430.2.7 0.2.7.3.698 Ho spita .3.136960 084.8 l .8 2019-07-04 2019-07-04 Usha Bean [facility] 732 [id number] [place] 00:00:00 00:00:[address] Results Test Description Test Time Test Comments Results Result Comments Source Creatinine level, urine, random 2022-09-18 16:18:00 Test Item Value Reference Range Interpretation Comme nts Creatinine, urine (mg/dL) (test code = 72648-1) 82 mg/dL [facility] with reflex to culture 2022-09-18 16:18:00 Test Item Value Reference Range Interpretation Comments Specimen site (test Clean catch code = 5048269) Color, UA (test code = Straw 5778-6) Appearance, UA (test Clear code = 5767-9) Specific gravity, UA 1.017 1.001-1.035 (test code = 5811-5) pH, UA (test code = 6.0 5.0-8.5 5803-2) Protein, UA (test code 2+ Negative A = 08065-2) Glucose, UA (test code 3+ Negative A = 32628-8) Ketones, UA (test code Negative Negative = 2514-8) Bilirubin, UA (test Negative Negative code = 5770-3) Blood, UA (test code = Small Negative A 5794-3) Nitrite, UA (test code Negative Negative = 5802-4) Urobilinogen, UA (test <2.0 <=2.0 code = 37495-9) Leukocyte esterase, UA Negative Negative (test code [...] (test code = 3 See_Comment [Autom ated 15421-3) message] The sy stem which generated this result transmitted reference range : 0 - 5 /HPF. The reference range was not used to interpret this result as normal/abnormal . Bacteria, UA (test code None seen None seen = 23685-7) Yeast, UA (test code = None seen 40333-0) Yeast with None seen pseudohyphae, UA (test code = 55381-0) Lab Interpretation Abnormal (test code = 43888-5) [facility], [id number] 16:18:00 Test Item Value Reference Range Interpretation Comments Creatinine, urine (mg/dL) (test code 82 mg/dL = 15711-8) [facility], with reflex to culture 2022-09-18 16:18:00 Test Item Value Reference Range Interpretation Comments Specimen site (test Clean catch code = 9323840) Color, UA (test code = Straw 5778-6) Appearance, UA (test Clear code = 5767-9) Specific gravity, UA 1.017 1.001-1.035 (test code = 5811-5) pH, UA (test code = 6.0 5.0-8.5 5803-2) Protein, UA (test code 2+ Negative A = 35485-9) Glucose, UA (test code 3+ Negative A = 91693-3) Ketones, UA (test code Negative Negative = 2514-8) Bilirubin, UA (test Negative Negative code = 5770-3) Blood, UA (test code = Small Negative A 5794-3) Nitrite, UA (test code Negative Negative = 5802-4) Urobilinogen, UA (test <2.0 <=2.0 code = 85687-6) Leukocyte esterase, UA Negative Negative (test code [...] (test code = 3 See_Comment [Autom ated 49431-0) message] The sy stem which generated this result transmitted reference range : 0 - 5 /HPF. The reference range was not used to interpret this result as normal/abnormal . Bacteria, UA (test code None seen None seen = 51777-8) Yeast, UA (test code = None seen 11370-6) Yeast with None seen pseudohyphae, UA (test code = 99118-3) Lab Interpretation Abnormal (test code = 81510-8) [facility], [id number] 16:17:00 Test Item Value Reference Range Interpretation Comments Protein, urine random (test code = 114 mg/dL 2888-6) [facility], [id number] 16:17:00 Test Item Value Reference Range Interpretation Comments Protein, urine random (test code = 114 mg/dL 2888-6) [facility] [id number] 15:51:00 Test Item Value Reference Range Interpretation Comments Urine culture (test SEE COMMENT Bacteriu deandre screen code = 7093431) negative. [facility] [id number] 15:51:00 Test Item Value Reference Range Interpretation Comments Urine culture (test SEE COMMENT Bacteriu deandre screen code = 1166416) negative. [facility], [id number] 17:00:00 Test Item Value Reference Range Interpretation Comments Creatinine, urine (mg/dL) (test 179 mg/dL code = 32309-1) [facility], [id number] 17:00:00 Test Item Value Reference Range Interpretation Comments Protein, urine random (test code = 90 mg/dL 2888-6) [facility] urine, [id number] 17:00:00 Test Item Value Reference Range Interpretation Comments Creatinine, urine (mg/dL) (test 179 mg/dL code = 12036-0) [facility], [id number] 17:00:00 Test Item Value Reference Range Interpretation Comments Protein, urine random (test code = 90 mg/dL 2888-6) [facility] automated with [id number] 16:47:00 Test Item Value Reference Range Interpretation Comments Color, UA (test code = Yellow 5778-6) Appearance, UA (test Clear code = 5767-9) Specific gravity, UA 1.025 1.001-1.035 (test code = 5811-5) pH, UA (test code = 6.0 5.0-8.5 5803-2) Protein, UA (test code = 2+ Negative A 75783-8) Glucose, UA (test code = 3+ Negative A 94002-9) Ketones, UA (test code = Negative Negative 2514-8) Bilirubin, UA (test code Negative Negative = 5770-3) Blood, UA (test code = Moderate Negative A 5794-3) Nitrite, UA (test code = Negative Negative 5802-4) Urobilinogen, UA (test <2.0 <=2.0 code = 34239-1) Leukocyte esterase, UA Negative Negative (test code = 5799-2) WBC, UA (test code = See_Comment [Autom ated message] 5821-4) The system im3D generated this result transmit dirk reference range : 0 - 1 /HPF. The reference range was not used to interpret this result as normal/abnormal . RBC, UA (test code = 3 See_Comment [Autom ated message] 94402-1) The system im3D generated this result transmit dirk reference range : 0 - 5 /HPF. The reference range was not used to interpret this result as normal/abnormal . Bacteria, UA (test code None seen None seen = 49034-4) Yeast, UA (test code = None seen 96759-2) Yeast with pseudohyphae, None seen UA (test code = 34604-0) Lab Interpretation (test Abnormal code = 41656-4) [facility] with [id number] 16:47:00 Test Item Value Reference Range Interpretation Comments Color, UA (test code = Yellow 5778-6) Appearance, UA (test Clear code = 5767-9) Specific gravity, UA 1.025 1.001-1.035 (test code = 5811-5) pH, UA (test code = 6.0 5.0-8.5 5803-2) Protein, UA (test code = 2+ Negative A 10858-8) Glucose, UA (test code = 3+ Negative A 51806-4) Ketones, UA (test code = Negative Negative 2514-8) Bilirubin, UA (test code Negative Negative = 5770-3) Blood, UA (test code = Moderate Negative A 5794-3) Nitrite, UA (test code = Negative Negative 5802-4) Urobilinogen, UA (test <2.0 <=2.0 code = 66463-8) Leukocyte esterase, UA Negative Negative (test code = 5799-2) WBC, UA (test code = See_Comment [Autom ated message] 5821-4) The system im3D generated this result transmit dirk reference range : 0 - 1 /HPF. The reference range was not used to interpret this result as normal/abnormal . RBC, UA (test code = 3 See_Comment [Autom ated message] 05097-5) The system im3D generated this result transmit dirk reference range : 0 - 5 /HPF. The reference range was not used to interpret this result as normal/abnormal . Bacteria, UA (test code None seen None seen = 15107-2) Yeast, UA (test code = None seen 70120-1) Yeast with pseudohyphae, None seen UA (test code = 93045-8) Lab Interpretation (test Abnormal code = 41957-9) [facility] automated with [id number] 16:47:00 Test Item Value Reference Range Interpretation Comments Color, UA (test code = Yellow 5778-6) Appearance, UA (test Clear code = 5767-9) Specific gravity, UA 1.025 1.001-1.035 (test code = 5811-5) pH, UA (test code = 6.0 5.0-8.5 5803-2) Protein, UA (test code = 2+ Negative A 49237-5) Glucose, UA (test code = 3+ Negative A 19443-4) Ketones, UA (test code = Negative Negative 2514-8) Bilirubin, UA (test code Negative Negative = 5770-3) Blood, UA (test code = Moderate Negative A 5794-3) Nitrite, UA (test code = Negative Negative 5802-4) Urobilinogen, UA (test <2.0 <=2.0 code = 18111-5) Leukocyte esterase, UA Negative Negative (test code = 5799-2) WBC, UA (test code = See_Comment [Autom ated message] 5821-4) The system im3D generated this result transmit dirk reference range : 0 - 1 /HPF. The reference range was not used to interpret this result as normal/abnormal . RBC, UA (test code = 3 See_Comment [Autom ated message] 09167-3) The system im3D generated this result transmit dirk reference range : 0 - 5 /HPF. The reference range was not used to interpret this result as normal/abnormal . Bacteria, UA (test code None seen None seen = 99059-8) Yeast, UA (test code = None seen 70245-2) Yeast with pseudohyphae, None seen UA (test code = 82712-6) Lab Interpretation (test Abnormal code = 69696-0) [facility] with [id number] 16:47:00 Test Item Value Reference Range Interpretation Comments Color, UA (test code = Yellow 5778-6) Appearance, UA (test Clear code = 5767-9) Specific gravity, UA 1.025 1.001-1.035 (test code = 5811-5) pH, UA (test code = 6.0 5.0-8.5 5803-2) Protein, UA (test code = 2+ Negative A 45438-0) Glucose, UA (test code = 3+ Negative A 39494-6) Ketones, UA (test code = Negative Negative 2514-8) Bilirubin, UA (test code Negative Negative = 5770-3) Blood, UA (test code = Moderate Negative A 5794-3) Nitrite, UA (test code = Negative Negative 5802-4) Urobilinogen, UA (test <2.0 <=2.0 code = 18163-9) Leukocyte esterase, UA Negative Negative (test code = 5799-2) WBC, UA (test code = See_Comment [Autom ated message] 5821-4) The system im3D generated this result transmit dirk reference range : 0 - 1 /HPF. The reference range was not used to interpret this result as normal/abnormal . RBC, UA (test code = 3 See_Comment [Autom ated message] 43887-1) The system im3D generated this result transmit dirk reference range : 0 - 5 /HPF. The reference range was not used to interpret this result as normal/abnormal . Bacteria, UA (test code None seen None seen = 58953-9) Yeast, UA (test code = None seen 09691-3) Yeast with pseudohyphae, None seen UA (test code = 50633-6) Lab Interpretation (test Abnormal code = 02942-4) [facility], [id number] 15:44:00 Test Item Value Reference Range Interpretation Comments Creatinine, urine (mg/dL) (test 110 mg/dL code = 09265-2) [facility], [id number] 15:44:00 Test Item Value Reference Range Interpretation Comments Protein, urine random (test code = 67 mg/dL 2888-6) [facility] urine, [id number] 15:44:00 Test Item Value Reference Range Interpretation Comments Creatinine, urine (mg/dL) (test 110 mg/dL code = 62888-4) [facility], [id number] 15:44:00 Test Item Value Reference Range Interpretation Comments Protein, urine random (test code = 67 mg/dL 2888-6) [facility], with reflex to culture 2022-01-30 15:43:00 Test Item Value Reference Range Interpretation Comments Specimen site (test Clean catch code = 9013547) Color, UA (test code = Yellow 5778-6) Appearance, UA (test Clear code = 5767-9) Specific gravity, UA 1.001-1.035 (test code = 5811-5) pH, UA (test code = 5.0-8.5 5803-2) Protein, UA (test code 2+ Negative A = 06343-0) Glucose, UA (test code 3+ Negative A = 42588-7) Ketones, UA (test code Negative Negative = 2514-8) Bilirubin, UA (test Negative Negative code = 5770-3) Blood, UA (test code = Small Negative A 5794-3) Nitrite, UA (test code Negative Negative = 5802-4) Urobilinogen, UA (test <2.0 See_Comment [Aut omated code = 48159-1) message] The system which generated this result [...] (test code = <1 See_Comment [Autom ated 91065-9) message] The sy stem which generated this result transmitted reference range : 0 - 5 /HPF. The reference range was not used to interpret this result as normal/abnormal . Bacteria, UA (test code None seen None seen = 22300-0) Yeast, UA (test code = None seen 55614-2) Yeast with None seen pseudohyphae, UA (test code = 10290-2) Lab Interpretation Abnormal (test code = 95873-9) [facility], with reflex to culture 2022-01-30 15:43:00 Test Item Value Reference Range Interpretation Comments Specimen site (test Clean catch code = 9563555) Color, UA (test code = Yellow 5778-6) Appearance, UA (test Clear code = 5767-9) Specific gravity, UA 1.001-1.035 (test code = 5811-5) pH, UA (test code = 5.0-8.5 5803-2) Protein, UA (test code 2+ Negative A = 35402-2) Glucose, UA (test code 3+ Negative A = 81185-8) Ketones, UA (test code Negative Negative = 2514-8) Bilirubin, UA (test Negative Negative code = 5770-3) Blood, UA (test code = Small Negative A 5794-3) Nitrite, UA (test code Negative Negative = 5802-4) Urobilinogen, UA (test <2.0 See_Comment [Aut omated code = 97089-2) message] The system which generated this result [...] (test code = <1 See_Comment [Autom ated 75073-8) message] The sy stem which generated this result transmitted reference range : 0 - 5 /HPF. The reference range was not used to interpret this result as normal/abnormal . Bacteria, UA (test code None seen None seen = 83520-5) Yeast, UA (test code = None seen 59322-1) Yeast with None seen pseudohyphae, UA (test code = 95964-5) Lab Interpretation Abnormal (test code = 45082-8) [facility], [facility]22-[facility]30 15:43:00 Test Item Value Reference Range Interpretation Comments Specimen site (test Clean catch code = 2818588) Color, UA (test code = Yellow 5778-6) Appearance, UA (test Clear code = 5767-9) Specific gravity, UA 1.020 1.001-1.035 (test code = 5811-5) pH, UA (test code = 6.0 5.0-8.5 5803-2) Protein, UA (test code 2+ Negative A = 87044-7) Glucose, UA (test code 3+ Negative A = 29599-2) Ketones, UA (test code Negative Negative = 2514-8) Bilirubin, UA (test Negative Negative code = 5770-3) Blood, UA (test code = Small Negative A 5794-3) Nitrite, UA (test code Negative Negative = 5802-4) Urobilinogen, UA (test <2.0 <=2.0 code = 31640-1) Leukocyte esterase, UA Negative Negative (test code = 5799-2) WBC, UA (test code = None seen See_Comment [Autom ated 5821-4) message] The sy stem which generated this result transmitted reference range : 0 - 1 /HPF. The reference range was not used to interpret this result as normal/abnormal . RBC, UA (test code = <1 See_Comment [Autom ated 90414-0) message] The sy stem which generated this result transmitted reference range : 0 - 5 /HPF. The reference range was not used to interpret this result as normal/abnormal . Bacteria, UA (test code None seen None seen = 62868-7) Yeast, UA (test code = None seen 57657-9) Yeast with None seen pseudohyphae, UA (test code = 69892-5) Lab Interpretation Abnormal (test code = 43151-3) [facility], [facility] culture 2022-01-30 15:43:00 Test Item Value Reference Range Interpretation Comments Specimen site (test Clean catch code = 6566926) Color, UA (test code = Yellow 5778-6) Appearance, UA (test Clear code = 5767-9) Specific gravity, UA 1.020 1.001-1.035 (test code = 5811-5) pH, UA (test code = 6.0 5.0-8.5 5803-2) Protein, UA (test code 2+ Negative A = 28012-9) Glucose, UA (test code 3+ Negative A = 55337-1) Ketones, UA (test code Negative Negative = 2514-8) Bilirubin, UA (test Negative Negative code = 5770-3) Blood, UA (test code = Small Negative A 5794-3) Nitrite, UA (test code Negative Negative = 5802-4) Urobilinogen, UA (test <2.0 <=2.0 code = 03394-0) Leukocyte esterase, UA Negative Negative (test code = 5799-2) WBC, UA (test code = None seen See_Comment [Autom ated 5821-4) message] The sy stem which generated this result transmitted reference range : 0 - 1 /HPF. The reference range was not used to interpret this result as normal/abnormal . RBC, UA (test code = <1 See_Comment [Autom ated 29466-1) message] The sy stem which generated this result transmitted reference range : 0 - 5 /HPF. The reference range was not used to interpret this result as normal/abnormal . Bacteria, UA (test code None seen None seen = 85104-2) Yeast, UA (test code = None seen 78001-2) Yeast with None seen pseudohyphae, UA (test code = 08779-8) Lab Interpretation Abnormal (test code = 46405-6) [facility]2022-10-20 15:35:00 Test Item Value Reference Range Interpretation Comments Urine culture (test SEE COMMENT Bacteriu deandre screen code = 3625009) negative. [facility]2022-10-20 15:35:00 Test Item Value Reference Range Interpretation Comments Urine culture (test SEE COMMENT Bacteriu deandre screen code = 8836262) negative. [facility]2022-10-20 15:35:00 Test Item Value Reference Range Interpretation Comments Urine culture (test SEE COMMENT Bacteriu deandre screen code = 5622725) negative. [facility] [id number] 15:35:00 Test Item Value Reference Range Interpretation Comments Urine culture (test SEE COMMENT Bacteriu deandre screen code = 9223809) negative. [facility], [id number] 17:11:47 Test Item Value Reference Range Interpretation Comments Creatinine, urine (mg/dL) (test 121 mg/dL code = 66604-9) [facility], [id number] 17:11:47 Test Item Value Reference Range Interpretation Comments Protein, urine random (test code = 161 mg/dL 2888-6) [facility] [id number] 15:53:04 Test Item Value Reference Range Interpretation Comments Urine culture (test SEE COMMENT Bacteriu deandre screen code = 3207599) negative. [facility], with reflex to culture 2021-04-15 15:53:03 Test Item Value Reference Range Interpretation Comments Specimen site (test Clean catch code = 9554850) Color, UA (test code = Straw 5778-6) Appearance, UA (test Clear code = 5767-9) Specific gravity, UA 1.001-1.035 (test code = 5811-5) pH, UA (test code = 5.0-8.5 5803-2) Protein, UA (test code 2+ Negative A = 85616-4) Glucose, UA (test code 3+ Negative A = 18640-2) Ketones, UA (test code Negative Negative = 2514-8) Bilirubin, UA (test Negative Negative code = 5770-3) Blood, UA (test code = Moderate Negative A 5794-3) Nitrite, UA (test code Negative Negative = 5802-4) Urobilinogen, UA (test <2.0 <2.0 code = 86271-6) Leukocyte esterase, UA Negative Negative (test code = 5799-2) WBC, UA (test code = See_Comment [Autom ated 5821-4) message] The sy stem which generated this result transmitted reference range : 0 - 1 /HPF. The reference range was not used to interpret this result as normal/abnormal . RBC, UA (test code = See_Comment [Autom ated 94129-7) message] The sy stem which generated this result transmitted reference range : 0 - 5 /HPF. The reference range was not used to interpret this result as normal/abnormal . Bacteria, UA (test code None seen None seen = 38288-8) Yeast, UA (test code = None seen 03449-4) Yeast with None seen pseudohyphae, UA (test code = 11031-3) Lab Interpretation Abnormal (test code = 62473-0) [facility], [id number] 21:24:19 Test Item Value Reference Range Interpretation Comments Protein, urine random (test code = 484 mg/dL 2888-6) [facility], [id number] 16:47:21 Test Item Value Reference Range Interpretation Comments Creatinine, urine, random (test 201 mg/dL code = 19705-0) [facility] with reflex to culture 2020-11-26 15:18:17 Test Item Value Reference Range Interpretation Comments Specimen site (test Clean catch code = 7746788) Color, UA (test code = Yellow 5778-6) Appearance, UA (test Clear code = 5767-9) Specific gravity, UA 1.001-1.035 (test code = 5811-5) pH, UA (test code = 5.0-8.5 5803-2) Protein, UA (test code 3+ Negative A = 39040-8) Glucose, UA (test code 1+ Negative A = 15562-1) Ketones, UA (test code Negative Negative = 2514-8) Bilirubin, UA (test Negative Negative code = 5770-3) Blood, UA (test code = Moderate Negative A 5794-3) Nitrite, UA (test code Negative Negative = 5802-4) Urobilinogen, UA (test <2.0 <2.0 code = 88162-8) Leukocyte esterase, UA Negative Negative (test code = 5799-2) WBC, UA (test code = See_Comment [Autom ated 5821-4) message] The sy stem which generated this result transmitted reference range : 0 - 1 /HPF. The reference range was not used to interpret this result as normal/abnormal . RBC, UA (test code = See_Comment H [Autom ated 02919-9) message] The sy stem which generated this result transmitted reference range : 0 - 5 /HPF. The reference range was not used to interpret this result as normal/abnormal . Bacteria, UA (test code None seen None seen = 03496-0) Yeast, UA (test code = None seen 35744-4) Yeast with None seen pseudohyphae, UA (test code = 19123-8) Hyaline casts, UA (test See_Comment [Au tomated code = 5796-8) message] The system which generated this result transmitted reference range : /LPF. The refer ence range was not u sed to interpret th is result as normal/abnormal . Lab Interpretation Abnormal (test code = 06219-9) [facility] [id number] 14:41:27 Test Item Value Reference Range Interpretation Comments Urine culture (test SEE COMMENT Bacteriu deandre screen code = 6490006) negative. [facility]2019-09-17 04:32:00 Test Item Value Reference Range Interpretation Comments SARS-COV2/RT-PCR (test Not Detected Not Detected, Negative code = 3445849) SARS-COV-2 [facility] [place] (test code = 7458318) Negative results do not preclude SARS-CoV-2 infection [...] of the Act.Fact Sheet for Healthcare Pro viders:https://www.[employer]/Documents/Xpert%20Xpress%20SARS%20CoV-2/Fact%20Sh eets/3023802%10BZMZ-CHN-5%20HEALTHCARE%20PROVIDERS%20FACT%20SHEET.pdfFact Sheet for Healthcare Patients:https://[email or web address].Gumiyo/Documents/Xpert%20Xpress%20SARS%20CoV-2/Fact%20Sheets/3023801%20SARS-COV -2%20PATIENT%20FACT%20SHEET.pdfPerforming Laboratory:[facility] [place] [address]
== END ==
LOC: ER 11:38
DX: Z02.9 Encounter for administrative examinations, unspecified (principal)

== ENCOUNTER 2023-01-22 11:11 | Observation (INO) | payer OTHER ==
--- OUTSIDE RECORDS SUMMARY | 2023-01-22 11:17 | XMS REPORT | Continuity of Care Document ---
:1965 Author Organization [facility] t Address [address] [facility] [address] [place] [address] Care Team Providers Name Role Phone Peter ALVAREZ, Terrence Gerardo Primary Care Physician [phone] Mellissa ALVAREZ, Guzman Lim Attending Clinician [phone] Ogbechie_L Attending Clinician Unavailable Genesis Watts Attending Clinician Ernie ALVAREZ, Juan Dominguez Attending Clinician Micheal Perdomo MD Attending Clinician Félix SÁNCHEZ, Gabriela Magdaleno Attending Clinician Unavailable Only, Adc Test Attending Clinician Unavailable Tay Hsu MD Attending Clinician TAY HSU Attending Clinician Unavailable Usha FABIAN Attending Clinician Unavailable Ogbechie_Vanessa Admitting Clinician Unavailable Payers Payer Name Policy Type Policy Number Effective Date Expiration Date [facility] [id number] 2022 (MEDICARE 00:00:00 REPLACEMENT HMO) Problems [...] ALLERGIE Class ity of S [facility] Family History Family Member Diagnosis Comments Start Date Stop Date Source Natural father Hypertension [facility] Natural mother Heart disease [facility] Natural mother Hypertension [facility] Natural sister Diabetes [facility] Social History Social Habit Start Date Stop Date Quantity Comments Source History of tobacco Current smoker [facility] Exposure to Not sure [facility] SARS-CoV-2 (event) Hospit al Sexual orientation [facility] History of Social 2018-11-28 2018-11-[address] function 00:00:00 00:00:00 Hospital Tobacco use and 2018-01-15 2018-01-15 Smokeless [facility] exposure 00:00:00 00:00:00 tobacco non-user Hospital Tobacco Comment 2018-01-15 2018-01-15 "Quit 2-3 months [facility] 00:[facility]:00 00:00:00 ago" Hospital Alcohol intake 2016-03-26 2016-03-26 Current [facility] 00:00:00 00:00:00 non-drinker of Medical Ce nter alcohol (finding) Sex Ass[birth year] At [birth year] [facility] 00:00:00 00:00:00 [facility] Smoking Status Start Date Stop Date Source Unknown if ever smoked [facility] Ex-smoker 2018-01-15 00:00:00 2018-01-15 [facility] 00:[facility]:00 Occasional tobacco 2016-03-26 00:00:00 [facility] Medications Ordered Filled Start Stop [...] Clinician Source Performed URINE CULTURE 2022-09-18 13:15:00 [facility] Raphael MAGNESIUM LEVEL 2022-09-18 13:15:00 [facility] PHOSPHORUS LEVEL 2022-09-18 13:15:00 [facility] COMPREHENSIVE METABOLIC 2022-09-18 13:15:00 [facility] PANEL Raphael CBC WITH PLATELET AND 2022-09-18 13:15:00 [facility] DIFFERENTIAL Raphael PROTEIN, URINE, RANDOM 2022-09-18 13:15:00 [facility] Raphael CREATININE LEVEL, URINE, 2022-09-18 13:15:00 [facility] RANDOM Raphael URINALYSIS SCREEN AND 2022-09-18 13:15:00 [facility] MICROSCOPY, WITH REFLEX Raphael TO CULTURE LDH 2022-09-18 13:15:00 [facility]hael URIC ACID LEVEL 2022-09-18 13:15:00 [facility] CYCLOSPORINE LEVEL, 2022-09-18 13:15:00 [facility] TROUGH Raphael LIPID PANEL 2022-09-18 13:15:00 [facility] [place]hael ESTIMATED GFR 2022-09-18 13:15:00 [facility] [place]hael MAGNESIUM LEVEL 2022-06-05 15:44:00 [facility] CBC WITH PLATELET AND 2022-06-05 15:44:00 [facility] DIFFERENTIAL COMPREHENSIVE METABOLIC 2022-06-05 15:44:00 Ernie [facility] PANEL PROTEIN, URINE, RANDOM 2022-06-05 15:44:00 [facility] CREATININE LEVEL, URINE, 2022-06-05 15:44:00 Ernie [facility] RANDOM PHOSPHORUS LEVEL 2022-06-05 15:44:00 [facility] URINALYSIS, AUTOMATED 2022-06-05 15:44:00 [facility] WITH MICROSCOPY LDH 2022-06-05 15:44:00 [facility] PARATHYROID HORMONE 2022-06-05 15:44:00 [facility] VITAMIN D 25 HYDROXY 2022-06-05 15:44:00 [facility] LIPID [facility]EL 2022-06-05 15:44[facility]00 [facility], 2022-06-05 15:44:00 [facility] TROUGH ESTIMATED GFR 2022-06-05 15:44:00 [facility] URINE CULTURE 2022-01-30 14:44:00 [facility] CBC WITH PLATELET AND 2022-01-30 14:44:00 [facility] DIFFERENTIAL MAGNESIUM LEVEL 2022-01-30 14:44:00 [facility] PHOSPHORUS LEVEL 2022-01-30 14:44:00 [facility] URIC ACID LEVEL 2022-01-30 14:44:00 [facility] LDH 2022-01-30 14:44:00 [facility] URINALYSIS SCREEN AND 2022-01-30 14:44:00 [facility] MICROSCOPY, WITH REFLEX TO CULTURE PROTEIN, URINE, RANDOM 2022-01-30 14:44:00 [facility] CREATININE LEVEL, URINE, 2022-01-30 14:44:00 [facility] RANDOM COMPREHENSIVE METABOLIC 2022-01-30 14:44:00 [facility] PANEL CYCLOSPORINE LEVEL, 2022-01-30 14:44:00 [facility] RANDOM ESTIMATED GFR 2022-01-30 14:44:00 [facility] URINE CULTURE 2021-09-05 14:13:00 [facility] CBC WITH PLATELET AND 2021-09-05 14:13:00 [facility] DIFFERENTIAL MAGNESIUM LEVEL 2021-09-05 14:13:00 [facility] PHOSPHORUS LEVEL 2021-09-05 14:13:00 [facility] URIC ACID LEVEL 2021-09-05 14:13:00 [facility] LDH 2021-09-05 14:13:00 [facility] URINALYSIS SCREEN AND 2021-09-05 14:13:00 [facility] MICROSCOPY, WITH REFLEX TO CULTURE PROTEIN, URINE, RANDOM 2021-09-05 14:13:00 [facility] CREATININE LEVEL, URINE, 2021-09-05 14:13:00 [facility] RANDOM COMPREHENSIVE METABOLIC 2021-09-05 14:13:00 [facility] PANEL CYCLOSPORINE LEVEL, 2021-09-05 14:13:00 [facility] RANDOM ESTIMATED GFR 2021-09-05 14:13:00 [facility] URINE CULTURE 2021-04-15 14:00:00 [facility] HC COMPLETE BLD COUNT 2021-04-15 14:00:00 [facility] W/AUTO DIFF MAGNESIUM LEVEL 2021-04-15 14:00:00 [facility] PHOSPHORUS LEVEL 2021-04-15 14:00:00 [facility] URIC ACID LEVEL 2021-04-15 14:00[facility] 2021-[facility]-15 14:00:00 [facility] URINALYSIS SCREEN AND 2021-04-15 14:00:00 [facility] MICROSCOPY, WITH REFLEX TO CULTURE PROTEIN, URINE, RANDOM 2021-04-15 14:00:00 [facility] CREATININE LEVEL, URINE, 2021-04-15 14:00:[address] RANDOM CYCLOSPORINE LEVEL, 2021-04-15 14:00:00 [facility] RANDOM COMPREHENSIVE METABOLIC 2021-04-15 14:00:00 [facility] PANEL ESTIMATED GFR 2021-04-15 14:00:00 [facility] URINE CULTURE 2021-03-18 14:23:00 [facility] HC COMPLETE BLD COUNT 2021-03-18 14:23:00 [facility] W/AUTO DIFF MAGNESIUM LEVEL 2021-03-18 14:23:00 [facility] PHOSPHORUS LEVEL 2021-03-18 14:23:00 [facility] URIC ACID LEVEL 2021-03-18 14:23:00 [facility] LDH 2021-03-18 14:23:00 [facility] CREATININE LEVEL, URINE, 2021-03-18 14:23:[address] [facility] RANDOM URINALYSIS SCREEN AND 2021-03-18 14:23:00 [facility] MICROSCOPY, WITH REFLEX TO CULTURE PROTEIN, URINE, RANDOM 2021-03-18 14:23:00 [facility] COMPREHENSIVE METABOLIC 2021-03-18 14:23:00 [facility] PANEL CYCLOSPORINE LEVEL, 2021-03-18 14:23:00 [facility] RANDOM ESTIMATED GFR 2021-03-18 14:23:00 [facility] HC COMPLETE BLD COUNT 2021-03-11 15:30:00 Ernie [facility] W/AUTO DIFF MAGNESIUM LEVEL 2021-03-11 15:30:00 Juan Klein [facility] PHOSPHORUS LEVEL 2021-03-11 15:30:00 [facility] URIC ACID LEVEL 2021-03-11 15:30:00 [facility] 2021-03-11 15:30:00 [facility] COMPREHENSIVE METABOLIC 2021-03-11 15:30:00 Juan Klein [facility] PANEL CYCLOSPORINE LEVEL, 2021-03-11 15:30:00 Juan Klein [facility] RANDOM ESTIMATED GFR 2021-03-11 15:30:00 Juan Klein [facility] URINE CULTURE 2021-03-11 15:15:00 Juan Klein [facility] URINALYSIS SCREEN AND 2021-03-11 15:15:00 Ernie [facility] MICROSCOPY, WITH REFLEX TO CULTURE PROTEIN, URINE, RANDOM 2021-03-11 15:15:00 [place] [facility] CREATININE LEVEL, URINE, 2021-03-11 15:15:00 [place] [facility] RANDOM URINE CULTURE 2021-02-28 15:08:00 [facility] HC COMPLETE BLD COUNT 2021-02-28 15:08:00 [facility] W/AUTO DIFF MAGNESIUM LEVEL 2021-02-28 15:08:00 [facility] PHOSPHORUS LEVEL 2021-02-28 15:08:00 [facility] URIC ACID LEVEL 2021-02-28 15:08:00 [facility] LDH 2021-02-28 15:08:00 [facility] URINALYSIS SCREEN AND 2021-02-28 15:08:00 [facility] MICROSCOPY, WITH REFLEX TO CULTURE PROTEIN, URINE, RANDOM 2021-02-28 15:08:00 [facility] CREATININE LEVEL, URINE, 2021-02-28 15:08:00 LeanneMicheal power [facility] RANDOM COMPREHENSIVE METABOLIC 2021-02-28 15:08:00 Leanne, [facility] PANEL [id number] TACROLIMUS LEVEL, 2021-02-28 15:08:00 LeanneMicheal power [facility] RANDOM CYCLOSPORINE LEVEL, 2021-02-28 15:08:00 LeanneMicheal power [facility] RANDOM ESTIMATED GFR 2021-02-28 15:08:00 [facility] URINE CULTURE 2020-11-26 14:11:00 [facility] HC COMPLETE BLD COUNT 2020-11-26 14:11:00 [facility] W/AUTO DIFF MAGNESIUM LEVEL 2020-11-26 14:11:00 [facility] PHOSPHORUS LEVEL 2020-11-26 14:11:00 [facility] URIC ACID LEVEL 2020-11-26 14:11:00 [facility] LDH 2020-11-26 14:11:00 [facility] URINALYSIS SCREEN AND 2020-11-26 14:11:00 [facility] MICROSCOPY, WITH REFLEX TO CULTURE CREATININE LEVEL, URINE, 2020-11-26 14:11:00 [facility] RANDOM PROTEIN, URINE, RANDOM 2020-11-26 14:11:00 [facility] CYCLOSPORINE LEVEL, 2020-11-26 14:11:00 [facility] RANDOM PARATHYROID HORMONE 2020-11-26 14:11:00 [facility] VITAMIN D 25 HYDROXY 2020-11-26 14:11:00 [place] [facility] LEVEL COMPREHENSIVE METABOLIC 2020-11-26 14:11:00 [facility] PANEL ESTIMATED GFR 2020-11-26 14:11:00 [facility] URINE CULTURE 2020-09-13 15:29:00 [facility] HC COMPLETE BLD COUNT 2020-09-13 15:29:00 Ernie [facility] W/AUTO DIFF MAGNESIUM LEVEL 2020-09-13 15:29:00 Juan Klein [facility] PHOSPHORUS LEVEL 2020-09-13 15:29:00 [facility] 2020-09-13 15:29:00 [facility] 2020-09-13 15:29:00 Juan Klein [facility] URINALYSIS SCREEN AND 2020-09-13 15:29:00 Ernie [facility] MICROSCOPY, WITH REFLEX TO CULTURE CREATININE LEVEL, URINE, 2020-09-13 15:29:00 Ernie [facility] RANDOM PROTEIN, URINE, RANDOM 2020-09-13 15:29:00 Ernie [facility] COMPREHENSIVE METABOLIC 2020-09-13 15:29:00 Juan Klein [facility] PANEL CYCLOSPORINE LEVEL, 2020-09-13 15:29:00 Juan Klein [facility] RANDOM PARATHYROID HORMONE 2020-09-13 15:29:00 Juan Klein [facility] VITAMIN D 25 HYDROXY 2020-09-13 15:29:00 Juan Klein [facility] LEVEL ESTIMATED GFR 2020-09-13 15:29:00 Juan Klein [facility] SMEAR REVIEW 2020-09-13 15:29:00 Juan Klein [facility] URINE CULTURE 2020-09-03 13:21:00 Juan Klein [facility] HC COMPLETE BLD COUNT 2020-09-03 13:21:00 Ernie [facility] W/AUTO DIFF MAGNESIUM LEVEL 2020-09-03 13:21:00 Juan Klein [facility] PHOSPHORUS LEVEL 2020-09-03 13:21:00 Ernie [facility] URIC ACID LEVEL 2020-09-03 13:21:00 Juan Klein [facility] LDH 2020-09-03 13:21:00 Juan Klein [facility] URINALYSIS SCREEN AND 2020-09-03 13:21:00 [facility] MICROSCOPY, WITH REFLEX TO CULTURE CREATININE LEVEL, URINE, 2020-09-03 13:21:00 [facility] RANDOM PROTEIN, URINE, RANDOM 2020-09-03 13:21:00 [facility] COMPREHENSIVE METABOLIC 2020-09-03 13:21:00 [facility] PANEL CYCLOSPORINE LEVEL, 2020-09-03 13:21:00 [facility] RANDOM PARATHYROID HORMONE 2020-09-03 13:21:00 [facility] VITAMIN D 25 HYDROXY 2020-09-03 13:21:00 [facility] LEVEL ESTIMATED GFR 2020-09-03 13:21:00 [facility] URINE CULTURE 2020-06-06 15:13:00 [facility] COMPREHENSIVE METABOLIC 2020-06-06 15:13:00 [facility] PANEL HC COMPLETE BLD COUNT 2020-06-06 15:13:00 [facility] W/AUTO DIFF MAGNESIUM LEVEL 2020-06-06 15:13:00 [facility] PHOSPHORUS LEVEL 2020-06-06 15:13:00 [facility] URIC ACID LEVEL 2020-06-06 15:13:00 [facility] LDH 2020-06-06 15:13:00 [facility] URINALYSIS SCREEN AND 2020-06-06 15:13:00 [facility] MICROSCOPY, WITH REFLEX TO CULTURE CREATININE LEVEL, URINE, 2020-06-06 15:13:00 [facility] RANDOM CYCLOSPORINE LEVEL, 2020-06-06 15:13:00 [facility] RANDOM PROTEIN, URINE, RANDOM 2020-06-06 15:13:00 [facility] ESTIMATED GFR 2020-06-06 15:13:00 [facility] 2020-01-30 12:52:00 Juan Klein [facility] COMPREHENSIVE METABOLIC 2020-01-30 12:52:00 Juan Klein [facility] PANEL HC COMPLETE BLD COUNT 2020-01-30 12:52:00 Juan Klein [facility] W/AUTO DIFF MAGNESIUM LEVEL 2020-01-30 12:52:00 Juan Klein [facility] PHOSPHORUS LEVEL 2020-01-30 12:52:00 Ernie [facility] URIC ACID LEVEL 2020-01-30 12:52:00 Juan Klein [facility] LDH 2020-01-30 12:52:00 Juan Klein [facility] URINALYSIS SCREEN AND 2020-01-30 12:52:00 ErnieJuan [facility] MICROSCOPY, WITH REFLEX TO CULTURE CREATININE LEVEL, URINE, 2020-01-30 12:52:00 Juan Klein [facility] RANDOM PROTEIN, URINE, RANDOM 2020-01-30 12:52:00 Juan Klein [facility] CYCLOSPORINE LEVEL, 2020-01-30 12:52:00 Juan Klein [facility] RANDOM ESTIMATED GFR 2020-01-30 12:52:00 Juan Klein [facility] Plan of Care Planned Activity Planned Date Details Comments Source Future Scheduled 2022-12-13 Screening for [facility] Test 21:51:29 malignant neoplasm of colon (procedure) [code = 243907027] Future Scheduled 2022-12-13 Screening for [facility] Test 21:51:29 malignant neoplasm of colon (procedure) [code = 010551207] Future Scheduled 2022-12-13 Screening for [facility] Test 21:51:29 malignant neoplasm of colon (procedure) [code = 473015373] Future Scheduled 2022-12-13 Screening for [facility] Test 21:51:29 malignant neoplasm of colon (procedure) [code = 770392582] Future Scheduled 2022-12-13 Screening for [facility] Test 21:51:29 malignant neoplasm of colon (procedure) [code = 994529159] Future Scheduled 2022-12-13 SHINGLES VACCINES (1 [facility] 21:51:29 of 2) [code = SHINGLES VACCINES (1 of 2)] Future Scheduled 2022-12-13 COVID-19 VACCINE (2 - [facility] Test 21:51:29 Moderna series) [code = COVID-19 VACCINE (2 - Moderna series)] Future Scheduled 2022-12-13 INFLUENZA VACCINE (#1) [facility] 21:51:29 [code = INFLUENZA VACCINE (#1)] Future Scheduled 2022-12-13 [facility] Test 21:51:29 malignant neoplasm of colon (procedure) [code = 029352553] Future Scheduled 2022-12-13 [facility] Test 21:51:29 malignant neoplasm of colon (procedure) [code = 607876900] Future Scheduled 2022-12-13 [facility] Test 21:51:29 malignant neoplasm of colon (procedure) [code = 031551142] Future Scheduled 2022-12-13 [facility] Test 21:51:29 malignant neoplasm of colon (procedure) [code = 447294260] Future Scheduled 2022-12-13 [facility] Test 21:51:29 malignant neoplasm of colon (procedure) [code = 714615243] Future Scheduled 2022-12-13 SHINGLES VACCINES (1 [facility] Test 21:51:29 of 2) [code = SHINGLES VACCINES (1 of 2)] Future Scheduled 2022-12-13 COVID-19 VACCINE (2 - [facility] Test 21:51:29 Moderna series) [code = COVID-19 VACCINE (2 - Moderna series)] Future Scheduled 2022-12-13 INFLUENZA VACCINE (#1) [facility] 21:51:29 [code = INFLUENZA VACCINE (#1)] Future Scheduled 2022-10-07 [facility] for [facility] Test 11:52:00 malignant neoplasm of colon (procedure) [code = 654384466] Future Scheduled 2022-10-07 [facility] for [facility] Test 11:52:00 malignant neoplasm of colon (procedure) [code = 453850470] Future Scheduled 2022-10-07 [facility] for [facility] Test 11:52:00 malignant neoplasm of colon (procedure) [code = 803257813] Future Scheduled 2022-10-07 [facility] for [facility] Test 11:52:00 malignant neoplasm of colon (procedure) [code = 572501173] Future Scheduled 2022-10-07 [facility] for [facility] Test 11:52:00 malignant neoplasm of colon (procedure) [code = 815702134] Future Scheduled 2022-10-07 SHINGLES VACCINES (1 Met [facility] Test 11:52:00 of 2) [code = SHINGLES VACCINES (1 of 2)] Future Scheduled 2022-10-07 COVID-19 VACCINE (2 - [facility] Hospital Test 11:52:00 Moderna series) [code = COVID-19 VACCINE (2 - Moderna series)] Future Scheduled 2022-10-07 INFLUENZA VACCINE [facility] Test 11:52:00 [code = INFLUENZA VACCINE] Future Scheduled 2022-07-17 COLONOSCOPY SCREENING [facility] Test 02:57:42 [code = COLONOSCOPY SCREENING] Future Scheduled 2022-07-17 SHINGLES VACCINES (1 Met [facility] Hospital Test 02:57:42 of 2) [code = SHINGLES VACCINES (1 of 2)] Future Scheduled 2022-07-17 COVID-19 VACCINE (2 - [facility] Test 02:57:42 Moderna series) [code = COVID-19 VACCINE (2 - Moderna series)] Future Scheduled 2022-07-17 INFLUENZA VACCINE [facility] Test 02:57:42 [code = INFLUENZA VACCINE] Future Scheduled 2022-06-18 COLONOSCOPY SCREENING [facility] Test 14:06:44 [code = COLONOSCOPY SCREENING] Future Scheduled 2022-06-18 SHINGLES VACCINES (1 Met [facility] Test 14:06:44 of 2) [code = SHINGLES VACCINES (1 of 2)] Future Scheduled 2022-06-18 COVID-19 VACCINE (2 - [facility] Test 14:06:44 Moderna series) [code = COVID-19 VACCINE (2 - Moderna series)] Future Scheduled 2022-06-18 INFLUENZA VACCINE [facility] Test 14:06:44 [code = INFLUENZA VACCINE] Future Scheduled 2022-03-26 COLONOSCOPY SCREENING [facility] Test 23:31:27 [code = COLONOSCOPY SCREENING] Future Scheduled 2022-03-26 SHINGLES VACCINES (1 Met [facility] Test 23:31:27 of 2) [code = SHINGLES VACCINES (1 of 2)] Future Scheduled 2022-03-26 COVID-19 VACCINE (2 - [facility] Test 23:31:27 Moderna series) [code = COVID-19 VACCINE (2 - Moderna series)] Future Scheduled 2022-03-26 INFLUENZA VACCINE [facility] Test 23:31:27 [code = INFLUENZA VACCINE] Future Scheduled 2022-02-07 HEPATITIS B VACCINES Met [facility] Test 08:46:41 (1 of 3 - 3-dose series) [code = HEPATITIS B VACCINES (1 of 3 - 3-dose series)] Future Scheduled 2022-02-07 Pneumococcal Vaccine: [facility] Test 08:46:41 Pediatrics (0 to 5 Years) and At-Risk Patients (6 to 64 Years) (1 - PCV) [code = Pneumococcal Vaccine: Pediatrics (0 to 5 Years) and At-Risk Patients (6 to 64 Years) (1 - PCV)] Future Scheduled 2022-02-07 Hepatitis C screening [facility] Test 08:46:41 (procedure) [code = 463400820] Future Scheduled 2022-02-07 SHINGLES VACCINES (1 Met [facility] Test 08:46:41 of 2) [code = SHINGLES VACCINES (1 of 2)] Future Scheduled 2022-02-07 COLONOSCOPY SCREENING [facility] Test 08:46:41 [code = COLONOSCOPY SCREENING] Future Scheduled 2022-02-07 COVID-19 VACCINE (2 - [facility] Test 08:46:41 Moderna risk series) [code = COVID-19 VACCINE (2 - Moderna risk series)] Future Scheduled 2022-02-07 INFLUENZA VACCINE [facility] Test 08:46:41 [code = INFLUENZA VACCINE] Future Scheduled 2021-04-15 Hepatitis C screening [facility] Test 08:27:26 (procedure) [code = 183774353] Future Scheduled 2021-04-15 COLONOSCOPY SCREENING [facility] Test 08:27:26 [code = COLONOSCOPY SCREENING] Future Scheduled 2021-04-15 SHINGLES VACCINES (#1) M [facility] Test 08:27:26 [code = SHINGLES VACCINES (#1)] Future Scheduled 2021-04-15 COVID-19 VACCINE (2 - Me [facility] Test 08:27:26 Moderna risk 4-dose series) [code = COVID-19 VACCINE (2 - Moderna risk 4-dose series)] Future Scheduled 2021-04-15 INFLUENZA VACCINE [facility] Test 08:27:26 [code = INFLUENZA VACCINE] Future Scheduled COVID-19 VACCINE (1) Met [facility] Test [code = COVID-19 VACCINE (1)] Future Scheduled Hepatitis C screening [facility] Test (procedure) [code = 036130378] Future Scheduled COLONOSCOPY SCREENING [facility] Test [code = COLONOSCOPY SCREENING] Future Scheduled SHINGLES [facility]ACCINES (#1) [facility] [code = SHINGLES VACCINES (#1)] Future Scheduled INFLUENZA VACCINE Method [facility] Hospital Test [code = INFLUENZA VACCINE] Encounters Start End Encounter Admission Attending Care Care Encounter Source Date/Time Date/Time Type Type Clinicians Facility Department ID 2022-09-18 2022-09-18 Sol Malloy, [id number] [facility] 08:00:00 08:05:00 [place] [id number] [address] Raphael 3.430.2.7 Hospit a .3.402839 l .8 2022-09-18 2022-09-18 Sol Malloy, 1.2.840.1 [id number] 948140 8042 Methodi 08:00:00 08:05:00 Charles-Lizette 25061.1.[address] Raphael 3.430.2.7 Hospit a .3.964759 l .8 2022-09-18 2022-09-18 Travel 1.2.840.1 1.2.883.922 1739 852011 Methodi 00:00:00 00:00:[address] 3.430.2.7 0.2.7.3.698 Ho spita .3.682727 084.8 l .8 2022-09-18 2022-09-18 Travel 1.2.840.1 1.2.273.542 9403 022576 Methodi 00:00:00 00:00:[address] 3.430.2.7 0.2.7.3.698 Ho spita .3.300161 084.8 l .8 2022-08-15 2022-08-15 Outpatient Ogbechie_L DMG DMG 1557 52202 [facility] 00:00:00 00:00:00 08276 Medica l Group 2022-08-15 2022-08-15 Outpatient Ogbechie_L DMG DMG 1557 52202 [facility] 00:00:00 00:00:00 86387 Medica l Group 2022-08-15 2022-08-15 Outpatient Ogbechie_L DMG DMG 1557 202 [facility]oted 00:00:00 00:00:00 81860 Medica l Group 2022-07-11 2022-07-11 CAV [facility] 2.16.840. 2.16.840.1. FORMERLY NAMED [facility] [id number] Devoted 20:00:00 21:00:00 Ogbechie 1.591573. 614015.4.6. S9C [facility] 4.6.76751 [id number] 07065 2022-06-24 2022-06-24 Outpatient Ogbechie_L DMG DMG 1557 Devoted 00:00:00 00:00:00 64356 Medica l Group 2022-06-05 2022-06-05 Lab Juan Klein 1.2.840.1 10 [id number] Methodi 09:25:00 09:30:00 Guzman Malloy Raphael 14480.1.[address] 3.430.2.7 Hospit a .3.389918 l .8 2022-06-05 2022-06-05 Lab Juan Klein 1.2.840.1 10 [id number] Methodi 09:25:00 09:30:00 Malloy CharlesTamra Raphael [address]302.[address] 3.430.2.7 Hospit a .3.905890 l .8 2022-06-05 2022-06-05 Travel 1.2.840.1 1.2.981.580 4738 059924 Methodi 00:00:00 00:00:[address] 3.430.2.7 0.2.7.3.698 Ho spita .3.058903 084.8 l .8 2022-06-05 2022-06-05 Travel 1.2.840.1 1.2.870.457 8487 372487 Methodi 00:00:00 00:00:[address] 3.430.2.7 0.2.7.3.698 Ho spita .3.408949 084.8 l .8 2022 2022 [facility] 735846- 202 [facility] 00:00:00 00:00:00 78204 Medica l Group 2022-01-30 2022-01-30 Lab Ernie, 1.2.840.1 [id number] 2099 [id number] Methodi 07:00:00 07:05:00 [address]54.1.[address] 3.430.2.7 Hospit a .3.808354 l .8 2022-01-30 2022-01-30 Lab Ernie, 1.2.840.1 [id number] 2099 176872 Methodi 07:00:00 07:05:00 Juan Dominguez 52460.1.[address] 3.430.2.7 Hospit a .3.643938 l .8 2022-01-30 2022-01-30 Lab Ernie, 1.2.840.1 [id number] 2099 942279 Methodi 06:00:00 06:05:[address] 3.430.2.7 Hospit a .3.545914 l .8 2022-01-30 2022-01-30 Lab Ernie, 1.2.840.1 [id number] 2099 459698 Methodi 06:00:00 06:05:[address] 3.430.2.7 Hospit a .3.364779 l .8 2022-01-30 2022-01-30 Travel 1.2.840.1 1.2.293.402 8409 233419 Methodi 00:00:00 00:00:[address] 3.430.2.7 0.2.7.3.698 Ho spita .3.866358 084.8 l .8 2022-01-30 2022-01-30 Travel 1.2.840.1 1.2.947.226 9618 113344 Methodi 00:00:00 00:00:[address] 3.430.2.7 0.2.7.3.698 Ho spita .3.342550 084.8 l .8 2021-09-05 2021-09-05 Lab Ernie, 1.2.840.1 [id number] 2099 149791 Methodi 06:25:00 06:30:[address] 3.430.2.7 Hospit a .3.485939 l .8 2021-09-05 2021-09-05 Travel 1.2.840.1 1.2.020.673 2012 701588 Methodi 00:00:00 00:00:[address] 3.430.2.7 0.2.7.3.698 Ho spita .3.508710 084.8 l .8 2021-04-15 2021-04-15 Slo Klein 1.2.840.1 [id number] 2099 639815 Methodi 06:10:00 06:15:[address] 3.430.2.7 Hospit a .3.903204 l .8 2021-04-15 2021-04-15 Travel 1.2.840.1 1.2.378.445 2694 826076 Methodi 00:00:00 00:00:[address] 3.430.2.7 0.2.7.3.698 Ho spita .3.995909 084.8 l .8 2021-03-18 2021-03-18 Lab Ernie, 1.2.840.1 [id number] 2099 [id number] Methodi 06:20:00 06:25:00 Juan [address] 46281.1.[address] 3.430.2.7 Hospit a .3.868375 l .8 2021-03-18 2021-03-18 Travel 1.2.840.1 1.2.988.691 2031 035945 Methodi 00:00:00 00:00:[address] 3.430.2.7 0.2.7.3.698 Ho spita .3.274127 084.8 l .8 2021-03-11 2021-03-11 Lab Ernie, 1.2.840.1 [id number] 2099 966342 Methodi 09:00:00 09:05:00 Juan Dom[address]uez [address]74.1.[address] 3.430.2.7 Hospit a .3.637757 l .8 2021-03-11 2021-03-11 Travel 1.2.840.1 1.2.492.121 5984 747132 Methodi 00:00:00 00:00:[address] 3.430.2.7 0.2.7.3.698 Ho spita .3.133495 084.8 l .8 2021-02-28 2021-02-28 Lab Leanne, 1.2.840.1 [id number] [id number] 8632 Methodi 08:20:00 08:25:00 Micheal Covarrubias [address]507.[address] 3.430.2.7 Hospit a .3.459566 l .8 2021-02-28 2021-02-28 Travel 1.2.840.1 1.2.521.712 3408 806062 Methodi 00:00:00 00:00:[address] 3.430.2.7 0.2.7.3.698 Ho spita .3.004579 084.8 l .8 2021-02-25 2021-02-25 Travel 1.2.840.1 1.2.236.758 0501 578029 Methodi 00:00:00 00:00:[address] 3.430.2.7 0.2.7.3.698 Ho spita .3.209135 084.8 l .8 2020-11-26 2020-11-26 Lab Ernie, 1.2.840.1 [id number] 2099 719390 Methodi 08:48:26 08:53:26 Juan Dominguez 43138.1.[address] 3.430.2.7 Hospit a .3.509056 l .8 2020-11-26 2020-11-26 Travel 1.2.840.1 1.2.107.294 3102 959430 Methodi 00:00:00 00:00:[address] 3.430.2.7 0.2.7.3.698 Ho spita .3.312085 084.8 l .8 2020-11-15 2020-11-15 Travel 1.2.840.1 1.2.879.933 2459 557557 Methodi 00:00:00 00:00:[address] 3.430.2.7 0.2.7.3.698 Ho spita .3.703656 084.8 l .8 2020-09-13 2020-09-13 Lab Ernie, 1.2.840.1 [id number] 2099817 Methodi 10:07:34 10:12:34 Juan Dominguez 90364.1.[address] 3.430.2.7 Hospit a .3.111472 l .8 2020-09-13 2020-09-13 Travel 1.2.840.1 1.2.210.774 2367 296495 Methodi 00:00:00 00:00:[address] 3.430.2.7 0.2.7.3.698 Ho spita .3.864364 084.8 l .8 2020-09-03 2020-09-03 Lab Ernie, 1.2.840.1 [id number] 2099169 Methodi 07:58:11 08:03:11 Juan Dominguez 53557.1.[address] 3.430.2.7 Hospit a .3.003513 l .8 2020-09-03 2020-09-03 Travel 1.2.840.1 1.2.086.996 7084 742626 Methodi 00:00:00 00:00:[address] 3.430.2.7 0.2.7.3.698 Ho spita .3.506903 084.8 l .8 2020-08-29 2020-08-29 Travel 1.2.840.1 1.2.108.300 8703 008097 Methodi 00:00:00 00:00:[address] 3.430.2.7 0.2.7.3.698 Ho spita .3.721827 084.8 l .8 2020-08-13 2020-08-13 Travel 1.2.840.1 1.2.136.971 4649 118304 Methodi 00:00:00 00:00:[address] 3.430.2.7 0.2.7.3.698 Ho spita .3.064675 084.8 l .8 2020-07-30 2020-07-30 Travel 1.2.840.1 1.2.472.860 3395 818004 Methodi 00:00:00 00:00:[address] 3.430.2.7 0.2.7.3.698 Ho spita .3.704091 084.8 l .8 2020-06-07 2020-06-07 Lab Leanne, 1.2.840.1 [id number] 085249 6454 Methodi 07:23:50 07:28:50 Micheal Covarrubias [address]82.[address] 3.430.2.7 Hospit a .3.315831 l .8 2020-06-06 2020-06-06 Travel 1.2.840.1 1.2.994.984 2653 634800 Methodi 00:00:00 00:00:[address] 3.430.2.7 0.2.7.3.698 Ho spita .3.768667 084.8 l .8 2020-03-18 2020-03-18 Telephone WINSTON Heard 1.2.257.596 3278 8754 00:00:00 00:00:00 Gabriela TARIQ [address]686 706.2204324 019 2020-03-18 2020-03-18 Telephone WINSTON Heard 1.2.277.930 5391 8754 [facility] 00:00:00 00:00:00 Gabriela TARIQ 350.1.13.10 i ty [facility] 4.2.7.2.686 [place] as [id number] [facility] [address] 2020-03-16 2020-03-16 Laboratory Only, [facility] 1.2.840.114 7 [id number] 15:00:29 15:15:29 Only Test Karsten 350.1.13.10 [place] 4.2.7.2.686 [place] 085.5387082 353 2020-03-16 2020-03-16 Laboratory Only, [facility] Test [facility] 1.2.840. 114 [id number] [facility] 15:00:29 15:15:29 Only Tay Hsu 350.1.13.10 ity [facility] 4.2.7.2.686 [facility] [id number] [place] [address] [address] 2020-03-16 2020-03-16 Outpatient R JAZLYN [facility] [id number] 709 Univers 15:15:00 15:15:00 TAY [facility] 2020-01-30 2020-01-30 Lab Ernie, 1.2.840.1 [id number] 2099 [id number] Methodi 04:42:28 04:47:28 Juan Covarrubias 32147.1.[address] 3.430.2.7 Hospit a .3.727745 l .8 2020-01-30 2020-01-30 Travel 1.2.840.1 1.2.343.183 2114 285460 Methodi 00:00:00 00:00:[address] 3.430.2.7 0.2.7.3.698 Ho spita .3.860276 084.8 l .8 2020-01-23 2020-01-23 Lab Ernie, 1.2.840.1 [id number] 2099 413045 Methodi 04:55:00 05:00:00 Juan Covarrubias 40176.1.[address] 3.430.2.7 Hospit a .3.781281 l .8 2020-01-23 2020-01-23 Travel 1.2.840.1 1.2.019.465 0253 598882 Methodi 00:00:00 00:00:[address] 3.430.2.7 0.2.7.3.698 Ho spita .3.126857 084.8 l .8 2020-01-09 2020-01-09 Lab Ernie, 1.2.840.1 [id number] 2099 418448 Methodi 05:05:00 05:10:00 Juan Covarrubias 61270.1.[address] 3.430.2.7 Hospit a .3.702319 l .8 2020-01-09 2020-01-09 Travel 1.2.840.1 1.2.162.933 6644 315351 Methodi 00:00:00 00:00:[address] 3.430.2.7 0.2.7.3.698 Ho spita .3.823307 084.8 l .8 2019-07-04 2019-07-04 Outpatient Usha FABIAN [facility] 958 [id number] [place] 00:00:00 00:00:[address] Results Test Description Test Time Test Comments Results Result Comments Source Creatinine level, urine, random 2022-09-18 16:18:00 Test Item Value Reference Range Interpretation Comme nts Creatinine, urine (mg/dL) (test code = 19697-0) 82 mg[facility] with reflex to culture 2022-09-18 16:18:00 Test Item Value Reference Range Interpretation Comments Specimen site (test Clean catch code = 7731901) Color, UA (test code = Straw 5778-6) Appearance, UA (test Clear code = 5767-9) Specific gravity, UA 1.017 1.001-1.035 (test code = 5811-5) pH, UA (test code = 6.0 5.0-8.5 5803-2) Protein, UA (test code 2+ Negative A = 40510-0) Glucose, UA (test code 3+ Negative A = 64427-1) Ketones, UA (test code Negative Negative = 2514-8) Bilirubin, UA (test Negative Negative code = 5770-3) Blood, UA (test code = Small Negative A 5794-3) Nitrite, UA (test code Negative Negative = 5802-4) Urobilinogen, UA (test <2.0 <=2.0 code = 50239-4) Leukocyte esterase, UA Negative Negative (test code [...] (test code = 3 See_Comment [Autom ated 55987-9) message] The sy stem which generated this result transmitted reference range : 0 - 5 /HPF. The reference range was not used to interpret this result as normal/abnormal . Bacteria, UA (test code None seen None seen = 36695-6) Yeast, UA (test code = None seen 59934-1) Yeast with None seen pseudohyphae, UA (test code = 06944-1) Lab Interpretation Abnormal (test code = 28129-9) [facility] [id number] 16:18:00 Test Item Value Reference Range Interpretation Comments Creatinine, urine (mg/dL) (test code 82 mg/dL = 25995-9) [facility], with reflex to culture 2022-09-18 16:18:00 Test Item Value Reference Range Interpretation Comments Specimen site (test Clean catch code = 4967975) Color, UA (test code = Straw 5778-6) Appearance, UA (test Clear code = 5767-9) Specific gravity, UA 1.017 1.001-1.035 (test code = 5811-5) pH, UA (test code = 6.0 5.0-8.5 5803-2) Protein, UA (test code 2+ Negative A = 90421-1) Glucose, UA (test code 3+ Negative A = 94880-0) Ketones, UA (test code Negative Negative = 2514-8) Bilirubin, UA (test Negative Negative code = 5770-3) Blood, UA (test code = Small Negative A 5794-3) Nitrite, UA (test code Negative Negative = 5802-4) Urobilinogen, UA (test <2.0 <=2.0 code = 44904-8) Leukocyte esterase, UA Negative Negative (test code [...] (test code = 3 See_Comment [Autom ated 69880-8) message] The sy stem which generated this result transmitted reference range : 0 - 5 /HPF. The reference range was not used to interpret this result as normal/abnormal . Bacteria, UA (test code None seen None seen = 23585-5) Yeast, UA (test code = None seen 05369-3) Yeast with None seen pseudohyphae, UA (test code = 11970-5) Lab Interpretation Abnormal (test code = 19784-6) [facility], [id number] 16:18:00 Test Item Value Reference Range Interpretation Comments Creatinine, urine (mg/dL) (test code 82 mg/dL = 18432-1) [facility] with reflex to culture 2022-09-18 16:18:00 Test Item Value Reference Range Interpretation Comments Specimen site (test Clean catch code = 5837574) Color, UA (test code = Straw 5778-6) Appearance, UA (test Clear code = 5767-9) Specific gravity, UA 1.017 1.001-1.035 (test code = 5811-5) pH, UA (test code = 6.0 5.0-8.5 5803-2) Protein, UA (test code 2+ Negative A = 93328-7) Glucose, UA (test code 3+ Negative A = 21118-6) Ketones, UA (test code Negative Negative = 2514-8) Bilirubin, UA (test Negative Negative code = 5770-3) Blood, UA (test code = Small Negative A 5794-3) Nitrite, UA (test code Negative Negative = 5802-4) Urobilinogen, UA (test <2.0 <=2.0 code = 71417-1) Leukocyte esterase, UA Negative Negative (test code [...] (test code = 3 See_Comment [Autom ated 30005-0) message] The sy stem which generated this result transmitted reference range : 0 - 5 /HPF. The reference range was not used to interpret this result as normal/abnormal . Bacteria, UA (test code None seen None seen = 90015-2) Yeast, UA (test code = None seen 69192-6) Yeast with None seen pseudohyphae, UA (test code = 34516-3) Lab Interpretation Abnormal (test code = 52546-8) [facility], [id number] 16:17:00 Test Item Value Reference Range Interpretation Comments Protein, urine random (test code = 114 mg/dL 2888-6) [facility], [id number] 16:17:00 Test Item Value Reference Range Interpretation Comments Protein, urine random (test code = 114 mg/dL 2888-6) [facility], [id number] 16:17:00 Test Item Value Reference Range Interpretation Comments Protein, urine random (test code = 114 mg/dL 2888-6) [facility] [id number] 15:51:00 Test Item Value Reference Range Interpretation Comments Urine culture (test SEE COMMENT Bacteriu deandre screen code = 7773134) negative. [facility] [id number] 15:51:00 Test Item Value Reference Range Interpretation Comments Urine culture (test SEE COMMENT Bacteriu deandre screen code = 6181835) negative. [facility] [id number] 15:51:00 Test Item Value Reference Range Interpretation Comments Urine culture (test SEE COMMENT Bacteriu deandre screen code = 6569980) negative. [facility], [id number] 17:00:00 Test Item Value Reference Range Interpretation Comments Creatinine, urine (mg/dL) (test 179 mg/dL code = 66101-6) [facility], [id number] 17:00:00 Test Item Value Reference Range Interpretation Comments Protein, urine random (test code = 90 mg/dL 2888-6) [facility], [id number] 17:00:00 Test Item Value Reference Range Interpretation Comments Creatinine, urine (mg/dL) (test 179 mg/dL code = 32910-5) [facility], [id number] 17:00:00 Test Item Value Reference Range Interpretation Comments Protein, urine random (test code = 90 mg/dL 2888-6) [facility], automated with [id number] 16:47:00 Test Item Value Reference Range Interpretation Comments Color, UA (test code = Yellow 5778-6) Appearance, UA (test Clear code = 5767-9) Specific gravity, UA 1.025 1.001-1.035 (test code = 5811-5) pH, UA (test code = 6.0 5.0-8.5 5803-2) Protein, UA (test code = 2+ Negative A 76741-1) Glucose, UA (test code = 3+ Negative A 10340-6) Ketones, UA (test code = Negative Negative 2514-8) Bilirubin, UA (test code Negative Negative = 5770-3) Blood, UA (test code = Moderate Negative A 5794-3) Nitrite, UA (test code = Negative Negative 5802-4) Urobilinogen, UA (test <2.0 <=2.0 code = 79222-9) Leukocyte esterase, UA Negative Negative (test code = 5799-2) WBC, UA (test code = See_Comment [Autom ated message] 5821-4) The system BO.LT generated this result transmit dirk reference range : 0 - 1 /HPF. The reference range was not used to interpret this result as normal/abnormal . RBC, UA (test code = 3 See_Comment [Autom ated message] 62158-0) The system BO.LT generated this result transmit dirk reference range : 0 - 5 /HPF. The reference range was not used to interpret this result as normal/abnormal . Bacteria, UA (test code None seen None seen = 29752-2) Yeast, UA (test code = None seen 82570-0) Yeast with pseudohyphae, None seen UA (test code = 19883-8) Lab Interpretation (test Abnormal code = 62318-1) [facility] with [id number] 16:47:00 Test Item Value Reference Range Interpretation Comments Color, UA (test code = Yellow 5778-6) Appearance, UA (test Clear code = 5767-9) Specific gravity, UA 1.025 1.001-1.035 (test code = 5811-5) pH, UA (test code = 6.0 5.0-8.5 5803-2) Protein, UA (test code = 2+ Negative A 72048-1) Glucose, UA (test code = 3+ Negative A 81668-7) Ketones, UA (test code = Negative Negative 2514-8) Bilirubin, UA (test code Negative Negative = 5770-3) Blood, UA (test code = Moderate Negative A 5794-3) Nitrite, UA (test code = Negative Negative 5802-4) Urobilinogen, UA (test <2.0 <=2.0 code = 52949-0) Leukocyte esterase, UA Negative Negative (test code = 5799-2) WBC, UA (test code = See_Comment [Autom ated message] 5821-4) The system BO.LT generated this result transmit dirk reference range : 0 - 1 /HPF. The reference range was not used to interpret this result as normal/abnormal . RBC, UA (test code = 3 See_Comment [Autom ated message] 54418-5) The system BO.LT generated this result transmit dirk reference range : 0 - 5 /HPF. The reference range was not used to interpret this result as normal/abnormal . Bacteria, UA (test code None seen None seen = 43668-2) Yeast, UA (test code = None seen 06822-7) Yeast with pseudohyphae, None seen UA (test code = 08461-3) Lab Interpretation (test Abnormal code = 32663-3) [facility] with [id number] 16:47:00 Test Item Value Reference Range Interpretation Comments Color, UA (test code = Yellow 5778-6) Appearance, UA (test Clear code = 5767-9) Specific gravity, UA 1.025 1.001-1.035 (test code = 5811-5) pH, UA (test code = 6.0 5.0-8.5 5803-2) Protein, UA (test code = 2+ Negative A 38678-3) Glucose, UA (test code = 3+ Negative A 04761-0) Ketones, UA (test code = Negative Negative 2514-8) Bilirubin, UA (test code Negative Negative = 5770-3) Blood, UA (test code = Moderate Negative A 5794-3) Nitrite, UA (test code = Negative Negative 5802-4) Urobilinogen, UA (test <2.0 <=2.0 code = 88747-7) Leukocyte esterase, UA Negative Negative (test code = 5799-2) WBC, UA (test code = See_Comment [Autom ated message] 5821-4) The system BO.LT generated this result transmit dirk reference range : 0 - 1 /HPF. The reference range was not used to interpret this result as normal/abnormal . RBC, UA (test code = 3 See_Comment [Autom ated message] 84610-4) The system BO.LT generated this result transmit dirk reference range : 0 - 5 /HPF. The reference range was not used to interpret this result as normal/abnormal . Bacteria, UA (test code None seen None seen = 11066-1) Yeast, UA (test code = None seen 22017-1) Yeast with pseudohyphae, None seen UA (test code = 63050-4) Lab Interpretation (test Abnormal code = 90764-0) [facility] with [id number] 16:47:00 Test Item Value Reference Range Interpretation Comments Color, UA (test code = Yellow 5778-6) Appearance, UA (test Clear code = 5767-9) Specific gravity, UA 1.025 1.001-1.035 (test code = 5811-5) pH, UA (test code = 6.0 5.0-8.5 5803-2) Protein, UA (test code = 2+ Negative A 90984-1) Glucose, UA (test code = 3+ Negative A 88239-8) Ketones, UA (test code = Negative Negative 2514-8) Bilirubin, UA (test code Negative Negative = 5770-3) Blood, UA (test code = Moderate Negative A 5794-3) Nitrite, UA (test code = Negative Negative 5802-4) Urobilinogen, UA (test <2.0 <=2.0 code = 06265-9) Leukocyte esterase, UA Negative Negative (test code = 5799-2) WBC, UA (test code = See_Comment [Autom ated message] 5821-4) The system BO.LT generated this result transmit dirk reference range : 0 - 1 /HPF. The reference range was not used to interpret this result as normal/abnormal . RBC, UA (test code = 3 See_Comment [Autom ated message] 79954-9) The system BO.LT generated this result transmit dirk reference range : 0 - 5 /HPF. The reference range was not used to interpret this result as normal/abnormal . Bacteria, UA (test code None seen None seen = 73660-6) Yeast, UA (test code = None seen 52595-1) Yeast with pseudohyphae, None seen UA (test code = 79026-8) Lab Interpretation (test Abnormal code = 94559-8) [facility] with [id number] 16:47:00 Test Item Value Reference Range Interpretation Comments Color, UA (test code = Yellow 5778-6) Appearance, UA (test Clear code = 5767-9) Specific gravity, UA 1.025 1.001-1.035 (test code = 5811-5) pH, UA (test code = 6.0 5.0-8.5 5803-2) Protein, UA (test code = 2+ Negative A 46333-9) Glucose, UA (test code = 3+ Negative A 94183-3) Ketones, UA (test code = Negative Negative 2514-8) Bilirubin, UA (test code Negative Negative = 5770-3) Blood, UA (test code = Moderate Negative A 5794-3) Nitrite, UA (test code = Negative Negative 5802-4) Urobilinogen, UA (test <2.0 <=2.0 code = 66062-2) Leukocyte esterase, UA Negative Negative (test code = 5799-2) WBC, UA (test code = See_Comment [Autom ated message] 5821-4) The system [employer] generated this result transmit dirk reference range : 0 - 1 /HPF. The reference range was not used to interpret this result as normal/abnormal . RBC, UA (test code = 3 See_Comment [Autom ated message] 48104-0) The system [employer] generated this result transmit dirk reference range : 0 - 5 /HPF. The reference range was not used to interpret this result as normal/abnormal . Bacteria, UA (test code None seen None seen = 31819-2) Yeast, UA (test code = None seen 27901-0) Yeast with pseudohyphae, None seen UA (test code = 23867-1) Lab Interpretation (test Abnormal code = 14446-0) [facility], [id number] 15:44:00 Test Item Value Reference Range Interpretation Comments Creatinine, urine (mg/dL) (test 110 mg/dL code = 02037-5) [facility], [id number] 15:44:00 Test Item Value Reference Range Interpretation Comments Protein, urine random (test code = 67 mg/dL 2888-6) [id number] 15:44:00 Test Item Value Reference Range Interpretation Comments Creatinine, urine (mg/dL) (test 110 mg/dL code = 69603-8) [facility], [id number] 15:44:00 Test Item Value Reference Range Interpretation Comments Protein, urine random (test code = 67 mg/dL 2888-6) [facility] with reflex to culture 2022-01-30 15:43:00 Test Item Value Reference Range Interpretation Comments Specimen site (test Clean catch code = 1326032) Color, UA (test code = Yellow 5778-6) Appearance, UA (test Clear code = 5767-9) Specific gravity, UA 1.001-1.035 (test code = 5811-5) pH, UA (test code = 5.0-8.5 5803-2) Protein, UA (test code 2+ Negative A = 71520-9) Glucose, UA (test code 3+ Negative A = 58842-9) Ketones, UA (test code Negative Negative = 2514-8) Bilirubin, UA (test Negative Negative code = 5770-3) Blood, UA (test code = Small Negative A 5794-3) Nitrite, UA (test code Negative Negative = 5802-4) Urobilinogen, UA (test <2.0 See_Comment [Aut omated code = 51321-6) message] The system which generated this result [...] (test code = <1 See_Comment [Autom ated 50113-9) message] The sy stem which generated this result transmitted reference range : 0 - 5 /HPF. The reference range was not used to interpret this result as normal/abnormal . Bacteria, UA (test code None seen None seen = 12558-5) Yeast, UA (test code = None seen 44118-7) Yeast with None seen pseudohyphae, UA (test code = 46749-4) Lab Interpretation Abnormal (test code = 56683-8) [facility], with reflex to culture 2022-01-30 15:43:00 Test Item Value Reference Range Interpretation Comments Specimen site (test Clean catch code = 2918575) Color, UA (test code = Yellow 5778-6) Appearance, UA (test Clear code = 5767-9) Specific gravity, UA 1.001-1.035 (test code = 5811-5) pH, UA (test code = 5.0-8.5 5803-2) Protein, UA (test code 2+ Negative A = 60534-8) Glucose, UA (test code 3+ Negative A = 88679-4) Ketones, UA (test code Negative Negative = 2514-8) Bilirubin, UA (test Negative Negative code = 5770-3) Blood, UA (test code = Small Negative A 5794-3) Nitrite, UA (test code Negative Negative = 5802-4) Urobilinogen, UA (test <2.0 See_Comment [Aut omated code = 20267-4) message] The system which generated this result [...] (test code = <1 See_Comment [Autom ated 90211-3) message] The sy stem which generated this result transmitted reference range : 0 - 5 /HPF. The reference range was not used to interpret this result as normal/abnormal . Bacteria, UA (test code None seen None seen = 98762-1) Yeast, UA (test code = None seen 72302-4) Yeast with None seen pseudohyphae, UA (test code = 91736-3) Lab Interpretation Abnormal (test code = 53910-2) [facility], [facility]22-[facility]30 15:43:00 Test Item Value Reference Range Interpretation Comments Specimen site (test Clean catch code = 6039131) Color, UA (test code = Yellow 5778-6) Appearance, UA (test Clear code = 5767-9) Specific gravity, UA 1.020 1.001-1.035 (test code = 5811-5) pH, UA (test code = 6.0 5.0-8.5 5803-2) Protein, UA (test code 2+ Negative A = 19066-7) Glucose, UA (test code 3+ Negative A = 45114-7) Ketones, UA (test code Negative Negative = 2514-8) Bilirubin, UA (test Negative Negative code = 5770-3) Blood, UA (test code = Small Negative A 5794-3) Nitrite, UA (test code Negative Negative = 5802-4) Urobilinogen, UA (test <2.0 <=2.0 code = 14099-0) Leukocyte esterase, UA Negative Negative (test code = 5799-2) WBC, UA (test code = None seen See_Comment [Autom ated 5821-4) message] The sy stem which generated this result transmitted reference range : 0 - 1 /HPF. The reference range was not used to interpret this result as normal/abnormal . RBC, UA (test code = <1 See_Comment [Autom ated 04153-9) message] The sy stem which generated this result transmitted reference range : 0 - 5 /HPF. The reference range was not used to interpret this result as normal/abnormal . Bacteria, UA (test code None seen None seen = 84126-5) Yeast, UA (test code = None seen 78707-9) Yeast with None seen pseudohyphae, UA (test code = 60189-4) Lab Interpretation Abnormal (test code = 47130-4) [facility], [facility] 2022-01-30 15:43:00 Test Item Value Reference Range Interpretation Comments Specimen site (test Clean catch code = 0724403) Color, UA (test code = Yellow 5778-6) Appearance, UA (test Clear code = 5767-9) Specific gravity, UA 1.020 1.001-1.035 (test code = 5811-5) pH, UA (test code = 6.0 5.0-8.5 5803-2) Protein, UA (test code 2+ Negative A = 48306-5) Glucose, UA (test code 3+ Negative A = 28834-3) Ketones, UA (test code Negative Negative = 2514-8) Bilirubin, UA (test Negative Negative code = 5770-3) Blood, UA (test code = Small Negative A 5794-3) Nitrite, UA (test code Negative Negative = 5802-4) Urobilinogen, UA (test <2.0 <=2.0 code = 42090-5) Leukocyte esterase, UA Negative Negative (test code = 5799-2) WBC, UA (test code = None seen See_Comment [Autom ated 5821-4) message] The sy stem which generated this result transmitted reference range : 0 - 1 /HPF. The reference range was not used to interpret this result as normal/abnormal . RBC, UA (test code = <1 See_Comment [Autom ated 59402-1) message] The sy stem which generated this result transmitted reference range : 0 - 5 /HPF. The reference range was not used to interpret this result as normal/abnormal . Bacteria, UA (test code None seen None seen = 82989-2) Yeast, UA (test code = None seen 46670-6) Yeast with None seen pseudohyphae, UA (test code = 73125-4) Lab Interpretation Abnormal (test code = 01482-8) [facility] [id number] 15:35:00 Test Item Value Reference Range Interpretation Comments Urine culture (test SEE COMMENT Bacteriu deandre screen code = 4528221) negative. [facility] [id number] 15:35:00 Test Item Value Reference Range Interpretation Comments Urine culture (test SEE COMMENT Bacteriu deandre screen code = 3467849) negative. [facility] [id number] 15:35:00 Test Item Value Reference Range Interpretation Comments Urine culture (test SEE COMMENT Bacteriu deandre screen code = 9787416) negative. [facility] [id number] 15:35:00 Test Item Value Reference Range Interpretation Comments Urine culture (test SEE COMMENT Bacteriu deandre screen code = 1497130) negative. [facility], [id number] 17:11:47 Test Item Value Reference Range Interpretation Comments Creatinine, urine (mg/dL) (test 121 mg/dL code = 61051-0) [facility], [id number] 17:11:47 Test Item Value Reference Range Interpretation Comments Protein, urine random (test code = 161 mg/dL 2888-6) [facility] [id number] 15:53:04 Test Item Value Reference Range Interpretation Comments Urine culture (test SEE COMMENT Bacteriu deandre screen code = 1870259) negative. [facility], with reflex to culture 2021-04-15 15:53:03 Test Item Value Reference Range Interpretation Comments Specimen site (test Clean catch code = 5672650) Color, UA (test code = Straw 5778-6) Appearance, UA (test Clear code = 5767-9) Specific gravity, UA 1.001-1.035 (test code = 5811-5) pH, UA (test code = 5.0-8.5 5803-2) Protein, UA (test code 2+ Negative A = 30557-8) Glucose, UA (test code 3+ Negative A = 87408-7) Ketones, UA (test code Negative Negative = 2514-8) Bilirubin, UA (test Negative Negative code = 5770-3) Blood, UA (test code = Moderate Negative A 5794-3) Nitrite, UA (test code Negative Negative = 5802-4) Urobilinogen, UA (test <2.0 <2.0 code = 87709-9) Leukocyte esterase, UA Negative Negative (test code = 5799-2) WBC, UA (test code = See_Comment [Autom ated 5821-4) message] The sy stem which generated this result transmitted reference range : 0 - 1 /HPF. The reference range was not used to interpret this result as normal/abnormal . RBC, UA (test code = See_Comment [Autom ated 76979-5) message] The sy stem which generated this result transmitted reference range : 0 - 5 /HPF. The reference range was not used to interpret this result as normal/abnormal . Bacteria, UA (test code None seen None seen = 16942-1) Yeast, UA (test code = None seen 66699-9) Yeast with None seen pseudohyphae, UA (test code = 11109-7) Lab Interpretation Abnormal (test code = 39290-5) [facility], [id number] 21:24:19 Test Item Value Reference Range Interpretation Comments Protein, urine random (test code = 484 mg/dL 2888-6) [facility], urine, [id number] 16:47:21 Test Item Value Reference Range Interpretation Comments Creatinine, urine, random (test 201 mg/dL code = 51661-7) [facility], with reflex to culture 2020-11-26 15:18:17 Test Item Value Reference Range Interpretation Comments Specimen site (test Clean catch code = 8197842) Color, UA (test code = Yellow 5778-6) Appearance, UA (test Clear code = 5767-9) Specific gravity, UA 1.001-1.035 (test code = 5811-5) pH, UA (test code = 5.0-8.5 5803-2) Protein, UA (test code 3+ Negative A = 87337-6) Glucose, UA (test code 1+ Negative A = 62855-3) Ketones, UA (test code Negative Negative = 2514-8) Bilirubin, UA (test Negative Negative code = 5770-3) Blood, UA (test code = Moderate Negative A 5794-3) Nitrite, UA (test code Negative Negative = 5802-4) Urobilinogen, UA (test <2.0 <2.0 code = 30496-5) Leukocyte esterase, UA Negative Negative (test code = 5799-2) WBC, UA (test code = See_Comment [Autom ated 5821-4) message] The sy stem which generated this result transmitted reference range : 0 - 1 /HPF. The reference range was not used to interpret this result as normal/abnormal . RBC, UA (test code = See_Comment H [Autom ated 68452-2) message] The sy stem which generated this result transmitted reference range : 0 - 5 /HPF. The reference range was not used to interpret this result as normal/abnormal . Bacteria, UA (test code None seen None seen = 72004-8) Yeast, UA (test code = None seen 82354-9) Yeast with None seen pseudohyphae, UA (test code = 66691-0) Hyaline casts, UA (test See_Comment [Au tomated code = 5796-8) message] The system which generated this result transmitted reference range : /LPF. The refer ence range was not u sed to interpret th is result as normal/abnormal . Lab Interpretation Abnormal (test code = 65307-5) [facility] [id number] 14:41:27 Test Item Value Reference Range Interpretation Comments Urine culture (test SEE COMMENT Bacteriu deandre screen code = 0676638) negative. [facility]2019-09-17 04:32:00 Test Item Value Reference Range Interpretation Comments SARS-COV2/RT-PCR (test Not Detected Not Detected, Negative code = 4271092) SARS-COV-2 [facility] (test code = 6635791) Negative results do not preclude SARS-CoV-2 infection [...] of the Act.Fact Sheet for Healthcare Pro viders:https://www.[employer]/Documents/Xpert%20Xpress%20SARS%20CoV-2/Fact%20Sh eets/3023802%06CHZV-CVA-0%20HEALTHCARE%20PROVIDERS%20FACT%20SHEET.pdfFact Sheet for Healthcare Patients:https://www.[employer]/Documents/Xpert%20Xpress%20SARS%20CoV-2/Fact%20Sheets/3023801%20SARS-COV -2%20PATIENT%20FACT%20SHEET.pdfPerforming Laboratory:[facility] [place] [address]
--- NOTE | 2023-01-22 12:03 | RAD REPORT ---
EXAM DESCRIPTION: CT - Chest Abd Pelvis Wo Con - 01/22/2023 11:46 am CLINICAL HISTORY: Chest pain;Abdominal distention COMPARISON: Chest Abd Pelvis Wo Con dated 10/25/2020; Chest Abd Pelvis Wo Con dated 12/21/2016; Abdome n Pelvis W Contrast dated 10/21/2022; Abdomen Pelvis Wo Contrast dated 08/07/2021 TECHNIQUE: Thin axial CT images of the chest, abdomen, and pelvis, performed without IV contrast. Mu ltiplanar reformats were generated and reviewed. All CT scans are performed using dose optimization technique as appropriate and may include automated exposure control or mA/KV adjustment according to patient size. FINDINGS: The lungs are clear.No pleural or pericardial effusion.No intrathoracic adenopathy. The liver, spleen, pancreas, and adrenal glands are within normal limits. Status post cholecystectom y. [place] kidneys are again atrophic. 1.4 cm exophytic hypoattenuating lesion arising from the lower pole of the left [place] kidney is stable over multiple prior studies, and favored to be benign. 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 No bowel obstruction, free air, free fluid or abscess. Normal appendix. No pathologic lymphadenopath y in the abdomen or pelvis. No worrisome osseous finding. IMPRESSION: No acute findings in the chest, abdomen, and pelvis. Stable chronic findings as above.
[2023-01-22] MEDS ORDERED: MORPHINE 4 MG/ML SYR ONE ×2 (12:34→14:43)
[2023-01-22] MEDS ORDERED: NA CHLORIDE 0.9% 500 ML ONE (12:34)
[2023-01-22] MEDS ORDERED: ONDANSETRON 4 MG/2 ML VIAL ONE ×2 (12:34→14:43)
[2023-01-22] MEDS ORDERED: FAMOTIDINE 20 MG/2 ML VIAL IV ONE (12:34)
[2023-01-22] MEDS ORDERED: NA CHLORIDE 0.9% 1,000 ML ONE (12:34)
[2023-01-22 12:36] LABS: Absolute Lymphocytes (CBC) 1.2 K/uL (0.7-4.9); Hematocrit 46.7 % (39.6-49.0); Lymphocytes % 12.1 % (15.3-44.8); MCV 93.3 fL (80-100); MPV 7.4 fL (7.6-11.3); Platelets 269 thou/uL (152-406)
[2023-01-22 12:38] LABS: Specific Gravity 1.026 (1.005-1.030); Urine Bacteria None Seen /HPF (<20); Urine Bilirubin NEGATIVE (Negative); Urine Blood 2+ (Negative); Urine Clarity Clear (Clear); Urine Color Yellow (Yellow); Urine Glucose 4+ (Over) (Negative); Urine Mucus Slight /HPF (None Seen); Urine Protein 2+ (Negative); Urine RBC <5 /HPF (None Seen); Urine Urobilinogen Normal (Normal); Urine pH 5.5 (5.0-7.0)
[2023-01-22 12:57] LABS: Bilirubin Direct 0.3 mg/dL (0-0.2); Bilirubin Indirect, Calculated 0.5 mg/dL (0.2-0.8); Bilirubin Total 0.8 mg/dL (0.2-1.0); Magnesium 2.4 mg/dL (1.6-2.4); Potassium 4.3 mEq/L (3.5-5.1); Protein, Total 8.8 g/dL (6.4-8.2); Troponin High Sensitivity 14.1 pg/mL (<58.9)
--- NOTE | 2023-01-22 13:09 | RAD REPORT ---
EXAM DESCRIPTION: RAD - Chest Single View - 01/22/2023 1:03 pm CLINICAL HISTORY: ABDOMINAL DISTENTION Chest pain. COMPARISON: <Comparisons> FINDINGS: Portable technique limits examination quality. The lungs are emphysematous but grossly clear. The heart is upper limit normal in size. No displaced fractures. IMPRESSION: No acute intrathoracic process suspected. Mild COPD.
--- NOTE | 2023-01-22 14:06 | ER ---
Nurse's Notes [facility] Name: Shoaib Freitas Jr Age: 57 yrs Sex: Male : 1965 Arrival Date: 01/22/2023 Time: 11:11 Bed 8 Private MD: Diagnosis: Chest pain, unspecified;Type 2 diabetes mellitus with hyperglycemia;Epigastric abdominal tenderness;Vomiting;Kidney transplant status Presentation: 01/22 11:21 Chief complaint: EMS states: toned out to patient home for Epigastric pain and chest ld1 pain X 1 day. Coronavirus screen: At this time, the client does not indicate any symptoms associated with coronavirus-19. Ebola Screen: No symptoms or risks identified at this time. Initial Sepsis Screen: Does the patient meet any 2 criteria? No. Patient's initial sepsis screen is negative. Does the patient have a suspected source of infection? No. Patient's initial sepsis screen is negative. Risk Assessment: Do you want to hurt yourself or someone else? Patient reports no desire to harm self or others. Onset of symptoms was January 22, 2023. 11:21 Method Of Arrival: EMS: [facility] ld1 11:21 Acuity: COBY 3 ld1 Triage Assessment: 11:21 General: Appears in no apparent distress. uncomfortable, Behavior is calm, cooperative, ld1 appropriate for age. Pain: Complains of pain in chest and epigastric area Pain does not radiate. Pain currently is 8 out of 10 on a pain scale. Quality of pain is described as throbbing, Pain began 1 day ago. Is continuous. EENT: No signs and/or symptoms were reported regarding the EENT system. Neuro: Level of Consciousness is awake, alert, obeys commands, Oriented to person, place, time, situation. Cardiovascular: Capillary refill < 3 seconds Patient's skin is warm and dry. Respiratory: Airway is patent Respiratory effort is even, unlabored. GI: Abdomen is round non-distended, Reports upper abdominal pain, nausea. : No signs and/or symptoms were reported regarding the genitourinary system. Derm: No signs and/or symptoms reported regarding the dermatologic system. Musculoskeletal: No signs and/or symptoms reported regarding the musculoskeletal system. Historical: - Allergies: : No Known Allergies; ld1 - PMHx: 11:21 diabetes mellitus; Gall Stones; history of dialysis; Hypertension; kidney transplant; ld1 Pancreatitis; - PSHx: 11:21 kidney transplant; Cholecystectomy; ld1 - Immunization history:: Adult Immunizations up to date. - Social history:: Smoking status: Patient/guardian denies using tobacco, Stopped _ months ago 1 Patient/guardian denies using alcohol. - Family history:: not pertinent. Screenin:23 [facility] ED Fall Risk Assessment (Adult) History of falling in the last 3 months, ld1 including since admission No falls in past 3 months (0 pts). Abuse screen: Denies threats or abuse. Denies injuries from another. Nutritional screening: No deficits noted. Tuberculosis screening: No symptoms or risk factors identified. Assessment: 11:23 Reassessment: See triage assessment. ld1 13:41 Reassessment: Patient appears in no apparent distress at this time. Patient and/or iw family updated on plan of care and expected duration. Pain level reassessed. EJ in place, pt medicated for pain and nausea. 13:45 GI: Bowel sounds present X 4 quads. Abd is soft X 4 quads. iw 15:21 Reassessment: Patient appears in no apparent distress at this time. Patient and/or iw family updated on plan of care and expected duration. Pain level reassessed. Patient is alert, oriented x 3, equal unlabored respirations, skin warm/dry/pink. attempt to call report. Vital Signs: 11:21 BP 141 / 72; Pulse 81; Resp 18; Temp 98.2(O); Pulse Ox 100% on R/A; Weight 106.59 kg; ld1 Height 5 ft. 11 in. ; Pain 8/10; 13:42 BP 133 / 84; Pulse 75; Resp 16; Pulse Ox 100% on R/A; Pain 8/10; iw 11:21 Body Mass Index 32.78 (106.59 kg, 180.34 cm) ld1 11:21 Pain Scale: Adult ld1 13:42 Pain Scale: Adult ED Course: 11:21 Patient arrived in ED. ld1 11:21 Arm band placed on right wrist. ld1 11:22 Triage completed. ld1 11:23 Patient has correct armband on for positive identification. Placed in gown. Bed in low ld1 position. Call light in reach. Side rails up X2. cardiac monitor technician on. Pulse ox on. NIBP on. Door closed. Noise minimized. Warm blanket given. 11:23 No provider procedures requiring assistance completed. ld1 11:31 Vidal Sandra MD is Attending Physician. zachery 11:47 CT Chest Abdomen Pelvis W/O Contrast In Process Unspecified. EDMS 12:19 Xiomara Quintanilla, RN is Primary Nurse. me1 12:26 Urinalysis w/ reflexes Sent. me1 12:49 EKG done, by ED staff, reviewed by Vidal Sandra MD. em1 13:05 XRAY Chest (1 view) In Process Unspecified. EDMS 13:42 Primary Nurse role handed off by Xiomara Quintanilla, RN iw 13:42 Arely Borrego RN is Primary Nurse. iw 14:02 David Neely MD is Hospitalizing Provider. zachery 14:31 Morgan Stephenson MD is Hospitalizing Provider. zachery 14:40 Darek Alexander MD is Hospitalizing Provider. zachery 16:10 Patient admitted, IV remains in place. iw Administered Medications: 13:41 Drug: NS 0.9% IV 500 ml IV at bolus once Route: IV; Rate: bolus; Site: right jugular; iw 14:40 Follow up: IV Status: Completed infusion iw 13:41 Drug: morphine IVP or IV 4 mg IVP once over 4 mins Route: IVP; Infused Over: 4 mins; iw Site: right jugular; 14:35 Follow up: Response: No adverse reaction; Pain is decreased me1 13:41 Drug: Ondansetron IVP 4 mg IVP once; over 2 minutes Route: IVP; Site: right jugular; iw 14:35 Follow up: Response: No adverse reaction; Nausea unchanged me1 13:41 Drug: Famotidine IVP 20 mg IVP once; dilute with 10 mL 0.9% NaCl; give over 2 minutes iw Route: IVP; Site: right jugular; 14:34 Follow up: Response: No adverse reaction me1 14:13 Drug: Xarelto PO 20 mg PO once Route: PO; me1 14:34 Follow up: Response: No adverse reaction me1 14:13 Not Given (Patient Refused): aspirinchewable tablet 81 mg PO once me1 14:33 Drug: Ondansetron IVP 4 mg IVP once; over 2 minutes Route: IVP; Site: right jugular; me1 15:09 Follow up: Response: No adverse reaction; Nausea is decreased me1 14:34 Drug: morphine IVP or IV 4 mg IVP once over 4 mins Route: IVP; Infused Over: 4 mins; me1 Site: right jugular; 15:11 Follow up: Response: No adverse reaction; Pain is decreased me1 20:10 Not Given (Patient Refused): ns 0.9% 1000 ml IV at 125 ml/hr continuous iw Medication: 15:01 VIS not applicable for this client. iw Outcome: 14:05 Decision to Hospitalize by Provider. zachery 16:13 Admitted to Med/surg accompanied by tech, iw 16:13 Condition: good 16:13 Discharge instructions given to patient, Instructed on the need for admit, Demonstrated understanding of instructions, 16:14 Patient left the ED. iw Signatures: Dispatcher [employer] EDVidal Mclean MD MD cha Williams, Irene, RN RN iw Tico Cramer Shante Nuñez RN RN 1 Xiomara Quintanilla RN RN me1 Corrections: (The following items were deleted from the chart) 14:35 14:35 Response: No adverse reaction; Nausea unchanged me1 me1
--- NOTE | 2023-01-22 14:06 | EDPHYS ---
Physician Documentation [facility] Name: Shoaib Freitas Jr Age: 57 yrs Sex: Male : 1965 Arrival Date: 01/22/2023 Time: 11:11 Bed 8 Private MD: ED Physician Vidal Sandra HPI: 01/22 14:00 This 57 yrs old Black Male presents to ER via EMS with complaints of Abdominal Pain, zachery Chest Pain. 14:00 The patient or guardian reports chest pain that is located primarily in the substernal zachery area. Onset: 2 day(s) ago. The pain does not radiate. Associated signs and symptoms: Pertinent positives: nausea, vomiting. The chest pain is described as a pressure. Modifying factors: The symptoms are alleviated by nothing. the symptoms are aggravated by nothing. Severity of pain: At its worst the pain was moderate. The patient has experienced similar episodes in the past, a few times. Historical: - Allergies: 11:21 No Known Allergies; ld1 - PMHx: 11:21 diabetes mellitus; Gall Stones; history of dialysis; Hypertension; kidney transplant; ld1 Pancreatitis; - PSHx: 11:21 kidney transplant; Cholecystectomy; ld1 - Immunization history:: Adult Immunizations up to date. - Social history:: Smoking status: Patient/guardian denies using tobacco, Stopped _ months ago 1 Patient/guardian denies using alcohol. - Family history:: not pertinent. ROS: 14:00 Constitutional: Negative for fever, chills, and weight loss, Eyes: Negative for injury, zachery pain, redness, and discharge, ENT: Negative for injury, pain, and discharge, Neck: Negative for injury, pain, and swelling, Respiratory: Negative for shortness of breath, cough, wheezing, and pleuritic chest pain, Back: Negative for injury and pain, : Negative for injury, bleeding, discharge, and swelling, MS/Extremity: Negative for injury and deformity, Skin: Negative for injury, rash, and discoloration, Neuro: Negative for headache, weakness, numbness, tingling, and seizure, Psych: Negative for depression, anxiety, suicide ideation, homicidal ideation, and hallucinations, Allergy/Immunology: Negative for hives, rash, and allergies, Endocrine: Negative for neck swelling, polydipsia, polyuria, polyphagia, and marked weight changes, Hematologic/Lymphatic: Negative for swollen nodes, abnormal bleeding, and unusual bruising, 14:00 Cardiovascular: Positive for chest pain, 14:00 Abdomen/GI: Positive for abdominal pain, of the epigastric area, right upper quadrant and left upper quadrant, Exam: 14:00 Constitutional: This is a well developed, well nourished patient who is awake, alert, zachery and in no acute distress. Head/Face: Normocephalic, atraumatic. Eyes: Pupils equal round and reactive to light, extra-ocular motions intact. Lids and lashes normal. Conjunctiva and sclera are non-icteric and not injected. Cornea within normal limits. Periorbital areas with no swelling, redness, or edema. ENT: Nares patent. No nasal discharge, no septal abnormalities noted. Tympanic membranes are normal and external auditory canals are clear. Oropharynx with no redness, swelling, or masses, exudates, or evidence of obstruction, uvula midline. Mucous membranes moist. Neck: Trachea midline, no thyromegaly or masses palpated, and no cervical lymphadenopathy. Supple, full range of motion without nuchal rigidity, or vertebral point tenderness. No Meningismus. Chest/axilla: Normal chest wall appearance and motion. Nontender with no deformity. No lesions are appreciated. Cardiovascular: Regular rate and rhythm with a normal S1 and S2. No gallops, murmurs, or rubs. Normal PMI, no JVD. No pulse deficits. Respiratory: Lungs have equal breath sounds bilaterally, clear to auscultation and percussion. No rales, rhonchi or wheezes noted. No increased work of breathing, no retractions or nasal flaring. Back: No spinal tenderness. No costovertebral tenderness. Full range of motion. Male : Normal genitalia with no discharge or lesions. Skin: Warm, dry with normal turgor. Normal color with no rashes, no lesions, and no evidence of cellulitis. MS/ Extremity: Pulses equal, no cyanosis. Neurovascular intact. Full, normal range of motion. Neuro: Awake and alert, GCS 15, oriented to person, place, time, and situation. Cranial nerves II-XII grossly intact. Motor strength 5/5 in all extremities. Sensory grossly intact. Cerebellar exam normal. Normal gait. Psych: Awake, alert, with orientation to person, place and time. Behavior, mood, and affect are within normal limits. 14:00 Abdomen/GI: Inspection: distension, Bowel sounds: normal, Palpation: mild abdominal tenderness, in the epigastric area, Liver: no appreciated palpable abnormalities, Hernia: not appreciated, Vital Signs: 11:21 BP 141 / 72; Pulse 81; Resp 18; Temp 98.2(O); Pulse Ox 100% on R/A; Weight 106.59 kg; ld1 Height 5 ft. 11 in. ; Pain 8/10; 13:42 BP 133 / 84; Pulse 75; Resp 16; Pulse Ox 100% on R/A; Pain 8/10; iw 11:21 Body Mass Index 32.78 (106.59 kg, 180.34 cm) ld1 11:21 Pain Scale: Adult ld1 13:42 Pain Scale: Adult iw Procedures: 13:34 Peripheral line: by aseptic technique a peripheral line was placed in the right zachery external jugular vein. MDM: 11:31 Patient medically screened. [facility] 14:23 Differential diagnosis: abnormal EKG, acute myocardial infarction, acute pericarditis, zachery anxiety, chest wall pain, cholecystitis, costochondritis, esophagitis, hiatal hernia, pancreatitis, peptic ulcer disease, pericarditis, pneumonia, pulmonary embolus, stable angina, thoracic aortic disection, unstable angina. HEART Score: History: Moderately Suspicious (1), ECG: Non specific repolarization disturbance / LBTB / PM (1), Age: > 45 and < 65 years (1), Risk Factors: > or = 3 Risk factors for atherosclerotic disease (2), [Hypercholesterolemia] [Hypertension] [DM] [+ Family HX] [Obesity] Troponin: < or = 1 x Normal Limit (0). The patient was given aspirin in the Emergency Department. SHELLIE Risk Score: 1 - Three or more CAD risk factors, 1- Known CAD, 1 - ASA use in past 7 days, TOTAL SCORE = 3. Data reviewed: vital signs, nurses notes, lab test result(s), EKG, radiologic studies, CT scan, plain films. Consideration of Admission/Observation Escalation of care including admission/observation considered. I considered the following discharge prescriptions or medication management in the emergency department Medications were administered in the Emergency Department. See MAR. Independent interpretation of the following test(s) in the Emergency Department EKG: See my EKG interpretation above. Test considered but Not performed: Ultrasound no abd usg. Care significantly affected by the following chronic conditions: Diabetes, Hypertension, Obesity, Chronic Kidney Disease. Counseling: I had a detailed discussion with the patient and/or guardian regarding the historical points, exam findings, and any diagnostic results supporting the discharge/admit diagnosis, the presence of at least one elevated blood pressure reading (>120/80) during this emergency department visit, lab results, radiology results, the need for further work-up and treatment in the hospital. 01/22 11:38 Order name: Basic Metabolic Panel; Complete Time: 13:49 [facility] 01/22 11:38 Order name: CBC with Diff; Complete Time: 13:49 [facility] 01/22 11:38 Order name: LFT's; Complete Time: 13:49 [facility] 01/22 11:38 Order name: Magnesium; Complete Time: 13:49 [facility] 01/22 11:38 Order name: NT PRO-BNP; Complete Time: 13:49 [facility] 01/22 11:38 Order name: PT-INR; Complete Time: 13:49 [facility] 01/22 11:38 Order name: Troponin HS; Complete Time: 13:49 [facility] 01/22 11:38 Order name: Lipase; Complete Time: 13:49 [facility] 01/22 11:38 Order name: Urinalysis w/ reflexes; Complete Time: 13:49 [facility] 01/22 11:38 Order name: XRAY Chest (1 view); Complete Time: 13:49 [facility] 01/22 11:38 Order name: CT Chest Abdomen Pelvis W/O Contrast; Complete Time: 12:06 [facility] 01/22 13:59 Order name: US Extremity Venous W Compression Last [facility] 01/22 13:59 Order name: VQ scan (Nuclear Medicine) [facility] 01/22 15:11 Order name: US EDME 01/22 11:38 Order name: EKG; Complete Time: 11:39 [facility] 01/22 14:18 Order name: CONS Physician Consult [facility] 01/22 14:18 Order name: CONS Physician Consult [facility] 01/22 11:38 Order name: Cardiac monitoring; Complete Time: 13:41 [facility] 01/22 11:38 Order name: EKG - Nurse/Tech; Complete Time: 12:49 [facility] 01/22 11:38 Order name: IV Saline Lock; Complete Time: 13:41 [facility] 01/22 11:38 Order name: Labs collected and sent; Complete Time: 13:41 zachery 01/22 11:38 Order name: O2 Per Protocol; Complete Time: 13:41 zachery 01/22 11:38 Order name: O2 Sat Monitoring; Complete Time: 13:41 zachery Administered Medications: 13:41 Drug: NS 0.9% IV 500 ml IV at bolus once Route: IV; Rate: bolus; Site: right jugular; iw 14:40 Follow up: IV Status: Completed infusion iw 13:41 Drug: morphine IVP or IV 4 mg IVP once over 4 mins Route: IVP; Infused Over: 4 mins; iw Site: right jugular; 14:35 Follow up: Response: No adverse reaction; Pain is decreased me1 13:41 Drug: Ondansetron IVP 4 mg IVP once; over 2 minutes Route: IVP; Site: right jugular; iw 14:35 Follow up: Response: No adverse reaction; Nausea unchanged me1 13:41 Drug: Famotidine IVP 20 mg IVP once; dilute with 10 mL 0.9% NaCl; give over 2 minutes iw Route: IVP; Site: right jugular; 14:34 Follow up: Response: No adverse reaction me1 14:13 Drug: Xarelto PO 20 mg PO once Route: PO; me1 14:34 Follow up: Response: No adverse reaction me1 14:13 Not Given (Patient Refused): aspirinchewable tablet 81 mg PO once me1 14:33 Drug: Ondansetron IVP 4 mg IVP once; over 2 minutes Route: IVP; Site: right jugular; me1 15:09 Follow up: Response: No adverse reaction; Nausea is decreased me1 14:34 Drug: morphine IVP or IV 4 mg IVP once over 4 mins Route: IVP; Infused Over: 4 mins; me1 Site: right jugular; 15:11 Follow up: Response: No adverse reaction; Pain is decreased me1 20:10 Not Given (Patient Refused): ns 0.9% 1000 ml IV at 125 ml/hr continuous iw Disposition Summary: 01/22/23 14:05 Hospitalization Ordered Notes: Hospitalization Status: Observation zachery Location: Telemetry/MedSurg (observation) zachery Condition: Stable zachery Problem: new zachery Symptoms: have improved zachery Bed/Room Type: Standard zachery Provider: Darek Alexander(01/22/23 14:40) zachery Room Assignment: 406(01/22/23 15:09) ll1 Diagnosis - Chest pain, unspecified zachery - Type 2 diabetes mellitus with hyperglycemia zachery - Epigastric abdominal tenderness zachery - Vomiting zachery - Kidney transplant status zachery Forms: - Medication Reconciliation Form zachery - SBAR form zachery - Leadership Thank You Letter [facility] Signatures: Dispatcher [employer] EDVidal Mclean MD MD cha Williams, Irene, RN RN iw Paxton Ruiz RN RN ll1 Shante Carlin RN RN 1 Xiomara Quintanilla RN RN me1 Corrections: (The following items were deleted from the chart) 14:31 14:05 David Neely cha [facility] 14:40 14:31 Morgan Stephenson cha [facility] 15:09 14:05 zachery [facility]
[2023-01-22] MEDS ORDERED: RIVAROXABAN 20 MG TABLET PO ONE (14:24)
[2023-01-22] MEDS ORDERED: ASPIRIN 81 MG CHEWABLE TABLET ONE (14:24)
--- NOTE | 2023-01-22 15:10 | RAD REPORT ---
EXAM DESCRIPTION: US - Extrem Venous W Compress Last - 01/22/2023 3:00 pm CLINICAL HISTORY: PAIN Bilateral leg edema and swelling. COMPARISON: Extremity Venous Uni Ltd dated 08/25/2022 TECHNIQUE: Real-time sonographic interrogation of the left and right lower extremity deep venous sys tems was performed. FINDINGS: Normal compressibility, flow augmentation, phasic flow and spontaneous flow is identified in both the left and right lower extremity deep venous systems. Small amount of chronic thrombus left popliteal vein. IMPRESSION: No sonographic evidence of left or right lower extremity acute deep venous thrombosis. S mall volume of chronic thrombus left popliteal vein.
[2023-01-22] MEDS ORDERED: ACETAMINOPHEN 500 MG TAB PO PRN (15:30)
--- NOTE | 2023-01-22 15:55 | P.HP ---
Patient History Date of Service: 01/22/23 Reason for admission: Chest pain, abdominal pain, nausea vomiting History of Present Illness: . 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 Patient family member states his chest pain is located in the substernal area onset 2 days ago, did not radiate, associated with nausea vomiting. Chest pain feels like pressure do not alleviate with rest. Patient has experienced similar episodes in the past. Patient report patient has abdominal distention along with abdominal pain associated with the nausea and vomiting, unable to eat for the last 3 days. Patient denies shortness of breath but not able to lay down because of the abdominal distention as per the patient. Patient denies fever chills or weight loss, negative for any fall or any change in medication last few days. Patient denies constipation, ER course vital signs blood pressure 141/72, heart rate 81, temperature 98.2, pulse ox 100% on room air. Pain 8 out of 10 morphine 4 mg IV push x1 given over 4 minutes, famotidine IV 20 mg IV push given over 2 minutes, and Zofran 4 mg IV push given over 2 minutes. Laboratory findings significant for BUN 24 creatinine 1.76 GFR 45 calcium 10.4. Admitting the patient for chest pain unspecified, type 2 diabetes mellitus with hyperglycemia, epigastric abdominal tenderness, vomiting, and kidney transplant status. Allergies No Known Allergies Allergy (Verified 09/09/19 21:27) Home medications list reviewed: Yes Home Medications: mycophenolate mofetiL [Mycophenolate Mofetil] 1,000 mg PO BID 03/13/21 predniSONE [Prednisone*] 5 mg PO DAILY 03/13/21 Valsartan 40 mg PO DAILY 07/07/21 Cyclosporine 100 mg PO BID 07/08/21 Empagliflozin [Jardiance] 25 mg PO DAILY 01/22/23 Rivaroxaban [Xarelto] 20 mg PO DAILY 01/22/23 - Past Medical/Surgical History Diabetic: Yes -: History of renal transplant-17 years ago -: Hypertension -: Tobacco abuse -: pancreatitis -: History of DVT left lower extremity -: kidney transplant 17 yrs ago -: cholecystectomy Psychosocial/ Personal History: He is engaged, has 2 children, 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 - Family History Sister -: Hypertension, Diabetes, Cancer Father -: Hypertension, Diabetes Mother -: Hypertension, Diabetes - Social History Smoking Status: Former smoker Counseled patient to stop smoking for: less than 10 minutes Smoking therapy provided: Yes Patient receptive to therapy: Yes Alcohol use: Yes CD- Drugs: No Caffeine use: Yes Place of Residence: Home Review of Systems 10-point ROS is otherwise unremarkable General: Weakness Eyes: Unremarkable ENT: Unremarkable Respiratory: Unremarkable Cardiovascular: Chest Pain (Chest pain 2 days ago) Gastrointestinal: Nausea, Vomiting, Abdominal Pain, Distention (Abdomen pain 3 ) Genitourinary: Unremarkable (days) Musculoskeletal: Unremarkable Integumentary: Unremarkable Neurological: Unremarkable Physical Examination - Physical Exam General: Alert, Oriented x3, Cooperative HEENT: Atraumatic, Normocephalic, PERRLA, Mucous membr. moist/pink Neck: Supple, 2+ carotid pulse no bruit Respiratory: Clear to auscultation bilaterally, Diminished, Crackles/rales Cardiovascular: No edema, Normal pulses, Regular rate/rhythm, Normal S1 S2 Capillary refill: <2 Seconds Gastrointestinal: Normal bowel sounds, No ascites, No tenderness, No masses, No rebound, No guarding, Distended Musculoskeletal: No swelling, No contractures, No erythema, No tenderness, No warmth Integumentary: No rashes, No breakdown, No significant lesion, No tenderness/sw elling, No erythema, No warmth, No cyanosis Neurological: Normal gait, Normal speech, Normal strength at 5/5 x4 extr, Sensation intact, Cranial nerves 3-12 intact, Normal reflexes 2+, Normal affect - Studies Laboratory Data (last 24 hrs) 01/22/23 01/22/23 01/22/23 12:25 12:25 12:25 WBC 9.80 Hgb 15.9 Hct 46.7 Plt Count 269 PT 11.0 INR 1.00 Sodium 138 Potassium 4.3 BUN 24 H Creatinine 1.76 H Glucose 106 Magnesium 2.4 Total Bilirubin 0.8 AST 15 ALT 32 Alkaline Phosphatase 66 Lipase 48 Assessment and Plan - Plan Assessment and plan Assessment - Chest pain, unspecified - Type 2 diabetes mellitus with hyperglycemia - Epigastric abdominal tenderness - Vomiting - Kidney transplant status Plan - Chest pain, unspecified : Acute, chest pain days ago, negative cardiac enzymes, normal EKG Denies chest pain now, we will admit the patient to telemetry monitoring for close monitoring Trend cardiac enzyme Consulted hospice care sales consultant Dr. Arroyo - Type 2 diabetes mellitus with hyperglycemia Chronic type 2 diabetes controlled on current medications Patient did not eat for 2 to 3 days due to nausea Reported episode of hypoglycemia x1 blood sugar of 70 Ordered blood sugar check before meals and at bedtime with more l regular insulin sliding scale Monitor for hypoglycemia - Epigastric abdominal tenderness - Vomiting Acute, abdominal pain for 2 to 3 days associated with nausea and vomiting unable to eat CT abdomen pelvis negative for any acute finding We will start IV fluid Upper GI series with KUB ordered Zofran 4 mg every 6 hours as needed for vomiting - Kidney transplant status Patient reports that she he had a kidney transplant 25 years ago. He is seeing his transplant doctor every few months and everything was being going okay with his kidney transplant status. BUN 24, creatinine 1.76, GFR 45 today We will continue to monitor Electrolyte replacement as per hospital protocol Consulted with roustabout crew Dr. eD La Rosa, discussed the plan of care with the [employer]about crew. Ordered ultrasound renal transplant, PTH, CK, uric acid to the order Discussed plan of care with Dr. Benjamin Oswald hospitalist. CODE STATUS Full Diet diabetic renal DVT prophylaxis Heparin Discharge Plan: Home Plan to discharge in: 48 Hours - Advance Directives Does patient have a Living Will: No Does patient have a Durable POA for Healthcare: No - Code Status/Comfort Care Code Status Assessed: Yes (Full code) Code Status: Full Code (Full code) Physician Review: Patient Assessed, Agree with Above Assessment and Plan Critical Care: No Time Spent Managing Pts Care (In Minutes): 55 (Minute)
[2023-01-22] MEDS: INSULIN REGULAR (HUMAN) 100 UNIT/ML SQ SCH ×2 (16:16→20:18)
[2023-01-22 16:17] VITALS: BMI 33.5
[2023-01-22] MEDS ORDERED: SODIUM CHLORIDE 0.9% 10ML INJ IV PRN (16:30)
[2023-01-22] MEDS ORDERED: MORPHINE 4 MG/ML SYR IV PRN (16:30)
[2023-01-22] MEDS ORDERED: ONDANSETRON 4 MG/2 ML VIAL IV PRN (16:30)
[2023-01-22] MEDS ORDERED: ACETAMINOPHEN 325 MG TABLET PO PRN (16:42)
[2023-01-22] MEDS ORDERED: HEPARIN 5000 UNIT/ML 1 ML VIAL SQ SCH (17:00)
[2023-01-22] MEDS: NA CHLORIDE 0.9% 1,000 ML IV SCH (17:20)
--- NOTE | 2023-01-22 19:10 | RAD REPORT ---
EXAM DESCRIPTION: US - Renal Ultrasound-Complete - 01/22/2023 6:48 pm CLINICAL HISTORY: renal Ultrasound Flank pain COMPARISON: Abdomen Exam Limited dated 12/04/2017 FINDINGS: Both [place] [facility] nonvisualized. Left sided transplant kidney appears normal measuring 13.0 x 7.3 x 6.1 cm. No hydronephrosis or perin ephric fluid. The urinary bladder is incompletely distended without gross abnormality seen. IMPRESSION: Normal appearance to left transplant kidney. Nonvisualized [place] [facility].
[2023-01-22] MEDS: Mycophenolate Mofetil [Mycophenolate Mofetil] 500 MG Tablet PO SCH (20:20)
[2023-01-22] MEDS: ONDANSETRON 4 MG/2 ML VIAL IV PRN (20:20)
[2023-01-22] MEDS: CYCLOSPORINE 100 MG PO SCH (20:20)
[2023-01-22 21:43] VITALS: O2SAT 99
[2023-01-23] MEDS: ONDANSETRON 4 MG/2 ML VIAL IV PRN (05:04)
[2023-01-23 07:23] LABS: Absolute Lymphocytes (CBC) 2.2 K/uL (0.7-4.9); Lymphocytes % 28.8 % (15.3-44.8); MCV 92.9 fL (80-100); MPV 7.3 fL (7.6-11.3); Platelets 228 thou/uL (152-406); RBC Red Blood Cell Count 4.41 M/uL (4.33-5.43)
[2023-01-23] MEDS: INSULIN REGULAR (HUMAN) 100 UNIT/ML SQ SCH ×2 (07:30→11:30)
[2023-01-23 07:37] LABS: Magnesium 2.3 mg/dL (1.6-2.4); Potassium 3.9 mEq/L (3.5-5.1)
--- NOTE | 2023-01-23 07:43 | RAD REPORT ---
EXAM DESCRIPTION: NM - Vent Perfusion VQ Scan - 01/23/2023 7:13 am CLINICAL HISTORY: Chest pain, dyspnea COMPARISON: 01/10/2020 TECHNIQUE: The patient was administered 21.4 Xenon 133 gas with posterior projection inspiration, eq uilibrium, and washout views obtained. The patient was then administered 6.8 Tc-99m SC labeled RBCs f ollowed by standard 8 view protocol. FINDINGS: There is good distribution of the Xenon with no ventilation defects identified. Air trappi ng is present. Perfusion images show no defects suspicious for pulmonary emboli. IMPRESSION: Very low probability for pulmonary embolus. Air trapping present.
[2023-01-23 08:47] VITALS: TEMP 97.3
[2023-01-23] MEDS: CYCLOSPORINE 100 MG PO SCH (08:48)
[2023-01-23] MEDS: Mycophenolate Mofetil [Mycophenolate Mofetil] 500 MG Tablet PO SCH (08:48)
[2023-01-23] MEDS ORDERED: predniSONE 5 MG TAB PO SCH (09:00)
[2023-01-23] MEDS ORDERED: ASPIRIN EC 81 MG TAB PO SCH (09:00)
[2023-01-23] MEDS ORDERED: PANTOPRAZOLE 40 MG INJ IVP SCH (09:00)
[2023-01-23] MEDS ORDERED: VALSARTAN 40 MG TAB PO SCH (09:00)
--- NOTE | 2023-01-23 12:34 | P.DS ---
Admission Date: 01/22/23 Discharge Date: 01/23/23 Disposition: ROUTINE DISCHARGE Discharge Condition: GOOD Reason for Admission: Chest pain, abdominal pain, nausea vomiting Consultations: 1. Cardiology 2. Nephrology Hospital Course: DIAGNOSES: # Chest Pain - suspect due to Severe Gastroesophageal Reflux Disease # History of Renal Transplant, now progressed to Chronic Kidney Disease Stage III # Type II Diabetes Mellitus # Hypertension # History of Deep Venous Thrombosis on Rivaroxaban # Left [place] Kidney Exophytic Lesion (1.4 cm) HOSPITAL COURSE: Mr. 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 He was admitted to the Medicine service. Upon further evaluation, his EKG was without STEMI criteria. His serial troponin trend was 14.1 -> 13.7 -> 18.9 -> 16.3. His chest x-ray revealed, "no acute intrathoracic process suspected." His V/Q scan revealed, "very low probability for pulmonary embolus." His CT chest/abdomen/pelvis revealed, "no acute findings in the chest, abdomen, and pelvis." Over the course of his hospitalization, his symptoms improved significantly and he requested to be discharged home. Cardiology was consulted and he was evaluated by Dr. Arroyo. From a cardiac standpoint, he has cleared him for discharge with an outpatient stress test. In regards to his renal history, Nephrology was consulted and his case was reviewed by Dr. Silveira. Since his creatinine is near baseline, he has cleared him for discharge with outpatient follow-up. On 01/23/2023, he was seen on rounds and deemed medically stable for discharge. He was discharged with instructions to schedule follow-up appointments with his PCP (Dr. Hernández), with Nephrology (Dr. Silveira), and with Cardiology (Dr. Arroyo). He was given the opportunity to ask questions and reported no further questions. Furthermore, all questions were answered to the best of my ability. A copy of this discharge summary will be sent to the above providers to facilitate continuity of care. Today, I personally spent 25 minutes on his case, of which greater than 50% of the time was spent in patient education, counseling, and coordination of care as described above. Vital Signs/Physical Exam: Temp Pulse Resp BP Pulse Ox 97.3 F 67 17 132/72 94 01/23/23 08:00 01/23/23 08:00 01/23/23 08:00 01/23/23 08:00 01/23/23 08:00 General: Alert, In no apparent distress, Oriented x3 HEENT: Atraumatic, Mucous membr. moist/pink, Sclerae nonicteric Neck: JVD not distended Respiratory: Clear to auscultation bilaterally, Normal air movement Cardiovascular: No edema, Regular rate/rhythm, Normal S1 S2, No gallops, No rubs, No murmurs Gastrointestinal: Normal bowel sounds, Soft and benign, Non-distended, No tenderness, No rebound, No guarding Musculoskeletal: No clubbing Integumentary: No rashes Neurological: Normal speech, Normal affect Laboratory Data at Discharge: WBC 7.70 thou/uL (4.3-10.9) 01/23/23 07:10 Hgb 14.3 g/dL (13.6-17.9) D 01/23/23 07:10 Hct 41.0 % (39.6-49.0) 01/23/23 07:10 Plt Count 228 thou/uL (152-406) 01/23/23 07:10 PT 11.0 SECONDS (9.5-12.5) 01/22/23 12:25 INR 1.00 01/22/23 12:25 Sodium 138 mEq/L (136-145) 01/23/23 07:10 Potassium 3.9 mEq/L (3.5-5.1) 01/23/23 07:10 BUN 27 mg/dL (7-18) H 01/23/23 07:10 Creatinine 1.80 mg/dL (0.70-1.30) H 01/23/23 07:10 Glucose 115 mg/dL (74-106) H 01/23/23 07:10 Phosphorus 3.0 mg/dL (2.5-4.9) 01/23/23 07:10 Magnesium 2.3 mg/dL (1.6-2.4) 01/23/23 07:10 Total Bilirubin 0.8 mg/dL (0.2-1.0) 01/22/23 12:25 AST 15 U/L (15-37) 01/22/23 12:25 ALT 32 U/L (16-61) 01/22/23 12:25 Alkaline Phosphatase 66 U/L (45-117) 01/22/23 12:25 Triglycerides 360 mg/dL (<150) H 01/23/23 07:10 Cholesterol 202 mg/dL (<200) H 01/23/23 07:10 HDL Cholesterol 31 mg/dL (40-60) L 01/23/23 07:10 Cholesterol/HDL Ratio 6.52 01/23/23 07:10 Lipase 48 U/L (13-75) 01/22/23 12:25 Home Medications: mycophenolate mofetiL [Mycophenolate Mofetil] 1,000 mg PO BID 03/13/21 predniSONE [Prednisone*] 5 mg PO DAILY 03/13/21 Valsartan 40 mg PO DAILY 07/07/21 Cyclosporine 100 mg PO BID 07/08/21 Empagliflozin [Jardiance] 25 mg PO DAILY 01/22/23 Rivaroxaban [Xarelto*] 20 mg PO DAILY 01/22/23 Physician Discharge Instructions: 1. Please call and schedule a follow-up appointment with your PCP (Dr. Hernández) in 3-5 days - Your CT scan showed a small spot on your left kidney. Please discuss with PCP for further evaluation. 2. Please call and schedule a follow-up appointment with Cardiology (Dr. Arroyo) in 5-7 days - He will schedule you for an outpatient cardiac stress test 3. Please call and schedule a follow-up appointment with Nephrology (Dr. Silveira) in 5-7 days - Please follow-up with your PCP for medication refills/adjustments Diet: Renal Activity: Ad miguel angel Followup: Sumit Arroyo MD [ACTIVE - CAN ADMIT] - SUMANTH HERNÁNDEZ MD [OUTSIDE PHYSICIAN] - Rodger Silveira [ACTIVE - CAN ADMIT] - Time spent managing pt's care (in minutes): 25
[2023-01-23 12:39] VITALS: BP 133/74
[2023-01-23] MEDS: NA CHLORIDE 0.9% 1,000 ML IV SCH (13:00)
--- NOTE | 2023-01-23 13:54 | EKG ---
Test Date: 2023-01-22 Test Time: 12:44:45 Wing Coverer: TERRELL MEASUREMENT RESULTS: Intervals: Rate: 78 MA: 136 QRSD: 98 QT: 380 QTc: 433 [place]: P: 37 MA: 136 QRS: 25 T: 36 INTERPRETIVE STATEMENTS: Sinus rhythm with occasional premature ventricular complexes Otherwise normal ECG Compared to ECG 10/21/2022 08:37:05 Ventricular premature complex(es) now present Electronically Signed On 01-23-23 13:51:02 CDT by Sumit Aroryo
[2023-01-23] MEDS ORDERED: RIVAROXABAN 20 MG TABLET PO SCH (17:00)
--- NOTE | 2023-01-23 19:10 | CON ---
Date of Consultation: 01/23/2023 Reason For Consultation: Chest pain. History Of Present Illness: A 57-year-old male with history of diabetes, hypertension, presented wit h chest pain, pressure like, left-sided, no radiation, not related to exertion, but sometimes it can be. Denies having any cardiac history. No chest pain since admission. He is feeling well. No shor tness of breath. Past Medical History: As outlined above in the HPI. Medications: Refer reconciliation sheet for detailed list. Allergies: NO KNOWN DRUG ALLERGIES. Family History: No mature coronary artery disease or cancer. Social History: Does not smoke or drink. Does not use any drugs. Review of Systems: All systems reviewed and they are negative except as mentioned in HPI. Physical Examination: Vital Signs: Reviewed. Head and Neck: Pupils are equal, reactive to light. Intact eye movements. No JVD. No cervical lym phadenopathy. Neck is supple. Thyroid is not enlarged. Lungs: Clear to auscultation bilaterally. No rhonchi, wheezing, or crackles. No accessory muscle u se. Heart: Regular rate and rhythm. No extra sounds. Abdomen: Soft, nontender. Bowel sounds positive. No organomegaly. No masses or hernia. No rigidi ty or rebound. Extremities: No edema, clubbing, cyanosis. Intact pulses. Skin: No rash. Neurologic: Alert, awake, oriented x3. No acute focal deficits appreciated. Investigations: Cardiac enzymes are negative. BUN 27, creatinine 1.8. LDL cholesterol is 99. Hemo globin is 14.3. Assessment/recommendations: 1.Chest pain. Cardiac enzymes are negative and he has been chest pain free. He can be released. I will plan for a stress test as an outpatient. 2.Hypertension. Blood pressure is controlled. Continue current management. 3.Dyslipidemia. Recommend atorvastatin 40 mg at bedtime. [facility] Follow up with me in the office next week for stress test. /ASHLEY Voice ID: [id number] Report ID: [id number]
== END 2023-01-23 15:20 | disposition home or self-care (01) ==
LOC: ER 11:11 → ERHOLD 14:12 → 4TH 15:56
PROVIDERS: ADMIT Internal Medicine; ATTEND Internal Medicine
DX: R07.9 Chest pain, unspecified (principal); R10.13 Epigastric pain; R11.2 Nausea with vomiting, unspecified; K80.20 Calculus of gallbladder without cholecystitis without obstruction; I10 Essential (primary) hypertension; E11.65 Type 2 diabetes mellitus with hyperglycemia; N28.9 Disorder of kidney and ureter, unspecified; E78.5 Hyperlipidemia, unspecified; I82.503 Chronic embolism and thrombosis of unspecified deep veins of lower extremity, bilateral; Z79.01 Long term (current) use of anticoagulants; Z94.0 Kidney transplant status; K85.90 Acute pancreatitis without necrosis or infection, unspecified
CPT/HCPCS: 96361; 93005; 85025 ×2; 81001; 80048 ×2; 36415 ×2; 83735 ×2; 82550; 84100; 85610; 80061; 82947 ×4; 80076; 84443; 84484 ×4; 83690; 83880; 71250; 74176; 71045; 93970; 76770; 78582; 96375; 96374; 99285; J1815; J1644; J7512; C9113; J2405 ×4; J7040; J7030 ×2; A9558; A9540; G0378 ×4

== ENCOUNTER → 2023-04-07 | Emergency (ER) | payer OTHER ==
[~2023-04-07] MED LIST: HYDROCODONE/APAP 10/325 TAB ONE
--- NOTE | 2023-04-07 16:26 | RAD REPORT ---
EXAM DESCRIPTION: RAD - Thoracic Spine Ap/Lat - 04/07/2023 4:15 pm CLINICAL HISTORY: PAIN COMPARISON: Thoracic Spine Ap/Lat dated 10/11/2015 FINDINGS/IMPRESSION: No acute fracture. Mild thoracolumbar curvature. Bridging osteophytes in the mi dthoracic spine.
--- NOTE | 2023-04-07 16:26 | RAD REPORT ---
EXAM DESCRIPTION: RAD - Chest Single View - 04/07/2023 4:15 pm CLINICAL HISTORY: COUGH COMPARISON: Chest Single View dated 01/22/2023; Chest Single View dated 10/21/2022; Chest Single View dated 07/07/2021; Chest Single View dated 03/13/2021 FINDINGS: Lines: None. Lungs: No evidence of edema or pneumonia. Pleural: No significant pleural effusions or pneumothorax. Cardiac: The heart size is within normal limits. Mediastinum: Within normal limits. Bones: No acute fractures. Other: None IMPRESSION: No acute cardiopulmonary disease.
[2023-04-07 17:42] LABS: Absolute Lymphocytes (CBC) 2.5 K/uL (0.7-4.9); Lymphocytes % 21.2 % (15.3-44.8); MCV 93.3 fL (80-100); Platelets 250 thou/uL (152-406); RBC Red Blood Cell Count 4.29 M/uL (4.33-5.43)
[2023-04-07 17:54] LABS: Potassium 3.5 mEq/L (3.5-5.1)
--- NOTE | 2023-04-07 18:25 | ER ---
Nurse's Notes [facility] Name: Shoaib Freitas Jr Age: 58 yrs Sex: Male : 1965 Arrival Date: 04/07/2023 Time: 14:50 Bed 7 Private MD: Diagnosis: Acute upper respiratory infection, unspecified Presentation: 04/07 14:53 Ebola Screen: Patient denies travel to an Ebola-affected area in the 21 days before ll1 illness onset. Initial Sepsis Screen: Does the patient meet any 2 criteria? No. Patient's initial sepsis screen is negative. Does the patient have a suspected source of infection? Yes: Productive cough/pneumonia. Risk Assessment: Do you want to hurt yourself or someone else? Patient reports no desire to harm self or others. 14:53 Method Of Arrival: Ambulatory ll1 15:09 Chief complaint: Patient states: Cough, body aches for 10 days. No fever. Coronavirus ll1 screen: Client denies travel out of the [place] in the last 14 days. cough unrelated to allergies, fatigue, muscle pain. Onset of symptoms was March 28, 2023. 15:09 Acuity: COBY 4 ll1 Triage Assessment: 15:10 General: Appears uncomfortable, Behavior is calm, cooperative, appropriate for age. ll1 Pain: Complains of pain in back Quality of pain is described as aching. EENT: Reports nasal congestion. Respiratory: Reports cough that is. Musculoskeletal: Reports pain in back. Historical: - Allergies: 14:53 No Known Allergies; ll1 - PMHx: 14:53 diabetes mellitus; Gall Stones; history of dialysis; Hypertension; kidney transplant; ll1 Pancreatitis; - PSHx: 14:53 Cholecystectomy; kidney transplant; ll1 - Immunization history:: Adult Immunizations up to date. - Social history:: Smoking status: Patient denies any tobacco usage or history of. Screenin:08 [facility] ED Fall Risk Assessment (Adult) History of falling in the last 3 months, tl4 including since admission No falls in past 3 months (0 pts) Confusion or Disorientation No (0 pts) Intoxicated or Sedated No (0 pts) Impaired Gait No (0 pts) Mobility Assist Device Used No (0 pt) Altered Elimination No (0 pt) Score/Fall Risk Level 0 - 2 = Low Risk. Abuse screen: Denies threats or abuse. Denies injuries from another. Nutritional screening: No deficits noted. Tuberculosis screening: No symptoms or risk factors identified. Assessment: 17:08 Reassessment: No changes from previously documented assessment. Patient and/or family tl4 updated on plan of care and expected duration. Pain level reassessed. Patient is alert, oriented x 3, equal unlabored respirations, skin warm/dry/pink. 17:35 Reassessment: LABS OBTAINED BY PHLEBOTOMY. PROVIDER AWARE. tl4 Vital Signs: 15:09 BP 146 / 99; Pulse 84; Resp 18; Temp 98.4; Pulse Ox 99% ; Weight 104.33 kg; Height 5 ll1 ft. 11 in. ; Pain 8/10; 15:09 Body Mass Index 32.08 (104.33 kg, 180.34 cm) ll1 15:09 Pain Scale: Adult ll1 ED Course: 14:52 Patient arrived in ED. mr 14:53 Arm band placed on. ll1 14:55 Latesha [facility]C [facility] kb 14:55 Sebas Stephenson MD is Attending Physician. kb 15:10 Triage completed. ll1 16:17 Chest Single View XRAY In Process Unspecified. EDMS 16:17 XRAY Thoracic Spine (Ap/lat) In Process Unspecified. EDMS 17:08 Patient has correct armband on for positive identification. Bed in low position. Call tl4 light in reach. Side rails up X 1. Provided Education on: ED process. 17:08 No provider procedures requiring assistance completed. tl4 18:35 Patient did not have IV access during this emergency room visit. iw Administered Medications: 15:56 Drug: [place] PO 10 mg-325 mg 1 tabs PO once Route: PO; tl4 Medication: 17:09 VIS not applicable for this client. tl4 Outcome: 18:24 Discharge ordered by . kb 18:35 Discharged to home ambulatory, iw 18:35 Condition: good 18:35 Discharge instructions given to patient, Instructed on discharge instructions, follow up and referral plans. medication usage, Demonstrated understanding of instructions, follow-up care, medications, Prescriptions given X 2, 18:35 Patient left the ED. iw Signatures: Dispatcher [employer] EDMS Latesha Zhao FNP-C FNP-Eufemia Merritt, Reg Reg mr Arely Borrego, RN RN iw Paxton Ruiz RN RN ll1 Aron Cassidy tl4 Corrections: (The following items were deleted from the chart) 15:11 15:09 Pulse 84bpm; Resp 18bpm; Pulse Ox 99%; Temp 98.4F; 104.33 kg; Height 5 ft. 11 ll1 in.; BMI: 32.0; Pain 8/10, Adult; ll1
--- NOTE | 2023-04-07 18:25 | EDPHYS ---
Physician Documentation [facility] Name: Shoaib Freitas Jr Age: 58 yrs Sex: Male : 1965 Arrival Date: 04/07/2023 Time: 14:50 Bed 7 Private MD: ED Physician Sebas Stephenson HPI: 04/07 20:56 This 58 yrs old Black Male presents to ER via Ambulatory with complaints of Cough, Body kb aches. 20:57 Patient is a 58-year-old male who presents for cough, congestion and bodyaches started kb 10 days ago. Denies fever or chills. States he was also playing with the great-grandchildren over the last few days and has had some pain to the mid back.. Historical: - Allergies: 14:53 No Known Allergies; ll1 - PMHx: 14:53 diabetes mellitus; Gall Stones; history of dialysis; Hypertension; kidney transplant; ll1 Pancreatitis; - PSHx: 14:53 Cholecystectomy; kidney transplant; ll1 - Immunization history:: Adult Immunizations up to date. - Social history:: Smoking status: Patient denies any tobacco usage or history of. ROS: 20:55 Abdomen/GI: Negative for abdominal pain, nausea, vomiting, diarrhea, and constipation, kb 20:55 Constitutional: Positive for body aches, 20:55 Respiratory: Positive for cough, 20:55 Back: Positive for pain at rest, pain with movement, of the thoracic area, 20:55 All other systems are negative, Exam: 20:55 Constitutional: This is a well developed, well nourished patient who is awake, alert, kb and in no acute distress. Head/Face: Normocephalic, atraumatic. ENT: Moist Mucous membranes Cardiovascular: Regular rate Respiratory: Respirations even and unlabored. No increased work of breathing. Talking in full sentences Abdomen/GI: Soft, non-tender. No distention Skin: Warm, dry with normal turgor. Normal color. MS/ Extremity: Pulses equal, no cyanosis. Neurovascular intact. Full, normal range of motion. Neuro: Awake and alert, GCS 15, oriented to person, place, time, and situation. Moves all extremities. Normal gait. 20:55 Back: pain, that is mild, of the thoracic area, ROM is painful, CVA tenderness, is absent, Vital Signs: 15:09 BP 146 / 99; Pulse 84; Resp 18; Temp 98.4; Pulse Ox 99% ; Weight 104.33 kg; Height 5 ll1 ft. 11 in. ; Pain 8/10; 15:09 Body Mass Index 32.08 (104.33 kg, 180.34 cm) ll1 15:09 Pain Scale: Adult ll1 MDM: 14:55 Patient medically screened. kb 20:56 Differential Diagnosis: Influenza Upper Respiratory Infection Viral Syndrome Pneumonia kb Other COVID. Data reviewed: vital signs, nurses notes. I considered the following discharge prescriptions or medication management in the emergency department I discussed and recommended Over The Counter medications, Antibiotics: At this time antibiotics are not recommended, Antivirals: At this time, antivirals are not recommended. Counseling: I had a detailed discussion with the patient and/or guardian regarding the historical points, exam findings, and any diagnostic results supporting the discharge/admit diagnosis, lab results, radiology results, the need for outpatient follow up, a family practitioner, to return to the emergency department if symptoms worsen or persist or if there are any questions or concerns that arise at home. 04/07 15:12 Order name: CBC with Diff; Complete Time: 18:06 kb 04/07 15:12 Order name: Basic Metabolic Panel; Complete Time: 18:06 kb 04/07 15:12 Order name: Flu; Complete Time: 16:55 kb 04/07 15:12 Order name: COVID-19 SARS RT PCR; Complete Time: 16:55 kb 04/07 16:58 Order name: Glucose, Ancillary Testing; Complete Time: 17:01 EDMS 04/07 15:12 Order name: Chest Single View XRAY; Complete Time: 16:27 kb 04/07 15:12 Order name: XRAY Thoracic Spine (Ap/lat); Complete Time: 16:27 kb 04/07 15:12 Order name: IV Start; Complete Time: 15:57 kb 04/07 16:13 Order name: Labs - recollect needed: all labs hemolyzed; Complete Time: 17:30 mc5 Administered Medications: 15:56 Drug: [place] PO 10 mg-325 mg 1 tabs PO once Route: PO; tl4 Disposition: 04/08 06:59 Co-signature as Attending Physician, Sebas Stephenson MD I reviewed the patient's care rn provided by the Advanced Practice Provider and agree with the diagnosis and treatment plan. Disposition Summary: 04/07/23 18:24 Discharge Ordered Notes: Location: Home kb Condition: Stable kb Diagnosis - Acute upper respiratory infection, unspecified kb Followup: kb - With: Emergency Department - When: As needed - Reason: Worsening of condition Followup: kb - With: Private Physician - When: 2 - 3 days - Reason: Recheck today's complaints, Continuance of care, Re-evaluation by your physician Discharge Instructions: - Discharge Summary Sheet kb - Upper Respiratory Infection, Adult, [id number] kb - Viral Respiratory Infection, [id number] kb Forms: - Medication Reconciliation Form kb - Thank You Letter kb - Antibiotic Education kb - Prescription Opioid Use kb - Patient Portal Instructions kb - Leadership Thank You Letter kb Prescriptions: - Tessalon Perles 100 mg Oral Capsule - take 1 capsule ORAL route every 8 hours As needed; 15 capsule; Refills: 0, kb Product Selection Permitted - Cyclobenzaprine 5 mg Oral Tablet - take 1 tablet ORAL route 3 times per day As needed; 15 tablet; Refills: 0, kb Product Selection Permitted Signatures: Dispatcher [employer] Latesha Cid, NAVIGATION OFFICER-C NAVIGATION OFFICER-Ckb Sebas Stephenson MD MD rn Lewis, Lynsay, RN RN 1 Chrissy Asif 5 Aron Cassidy4
[2023-04-07 21:53] VITALS: BP 146/99; TEMP 98.4; O2SAT 99
== END ==
LOC: ER 14:50
DX: J06.9 Acute upper respiratory infection, unspecified (principal); Z11.52 Encounter for screening for COVID-19; Z94.0 Kidney transplant status
CPT/HCPCS: 36415; 71045; 72070; 80048; 82947; 85025; 87635; 87804; 99283

== ENCOUNTER → 2023-04-29 | Emergency (ER) | payer OTHER ==
[~2023-04-29] MED LIST changes: +FAMOTIDINE 20 MG/2 ML VIAL IV ONE; -HYDROCODONE/APAP 10/325 TAB ONE; +MORPHINE 4 MG/ML SYR ONE; +NA CHLORIDE 0.9% 1,000 ML ONE; +ONDANSETRON 4 MG/2 ML VIAL ONE; +SULFAMETH/TRIMETHOPRIM 200 MG/5 ML UDBOT ONE
--- NOTE | 2023-04-29 16:13 | RAD REPORT ---
EXAM DESCRIPTION: US - Extrem Venous W Compress Last - 04/29/2023 3:53 pm CLINICAL HISTORY: bilateral leg pain, hx of dvt;Pain Bilateral leg edema and swelling. COMPARISON: <Comparisons> TECHNIQUE: Real-time sonographic interrogation of the left and right lower extremity deep venous sys tems was performed. FINDINGS: Normal compressibility, flow augmentation, phasic flow and spontaneous flow is identified in both the left and right lower extremity deep venous systems. IMPRESSION: No sonographic evidence of left or right lower extremity deep venous thrombosis.
--- NOTE | 2023-04-29 16:13 | RAD REPORT ---
EXAM DESCRIPTION: US - UPPER EXTREMITY VENOUS UNILATE - 04/29/2023 4:08 pm CLINICAL HISTORY: Pain;Swelling Arm swelling and edema. COMPARISON: <Comparisons> FINDINGS: Right upper extremity venous system was interrogated with Doppler technique. Normal flow, compressibility and augmentation was noted. There is no DVT present. IMPRESSION: No evidence of right upper extremity deep venous thrombosis.
--- NOTE | 2023-04-29 16:20 | RAD REPORT ---
EXAM DESCRIPTION: CT - Abdomen Pelvis Wo Contrast - 04/29/2023 4:14 pm CLINICAL HISTORY: Abdominal pain. NAUSEA / VOMITING COMPARISON: Abdomen Pelvis W Contrast dated 10/21/2022; Abdomen Pelvis Wo Contrast dated ; Stone Protocol dated 07/07/2021 TECHNIQUE: CT imaging of the abdomen and pelvis was performed without contrast. Solid organ, bowel a nd vascular assessment is limited due to lack of IV and oral contrast. All CT scans are performed using dose optimization technique as appropriate and may include automated exposure control or mA/KV adjustment according to patient size. FINDINGS: The lower lung [place] are clear.Cholecystectomy clips. The liver, spleen, pancreas, adrenal glands are within normal limits for a limited non-contrast exami nation.Atrophic [place] kidneys. Left lower quadrant transplant kidney without gross abnormal finding. No bowel obstruction, free air, free fluid or abscess. The appendix is normal. The osseous structures are within normal limits. IMPRESSION: No acute intra-abdominal or pelvic findings. A limited non-contrast examination was performed as detailed.
--- NOTE | 2023-04-29 17:11 | EDPHYS ---
Physician Documentation [facility] Name: Shoaib Freitas Jr Age: 58 yrs Sex: Male : 1965 Arrival Date: 04/29/2023 Time: 14:38 Bed 18 Private MD: ED Physician Sebas Stephenson HPI: 04/29 14:53 This 58 yrs old Black Male presents to ER via Ambulatory with complaints of Abdominal rn Pain, Arm Pain. 14:53 This 58 yrs old Black Male presents to ER via Ambulatory with complaints of Abdominal rn Pain, Arm Pain. 14:53 The patient presents to the emergency department with nausea, vomiting, diarrhea, rn abdominal pain. Onset: The symptoms/episode began/occurred 3 day(s) ago. Possible causes: unknown. The symptoms are aggravated by nothing. The symptoms are alleviated by nothing. Severity of symptoms: At their worst the symptoms were moderate in the emergency department the symptoms have improved. The patient has not experienced similar symptoms in the past. Patient reports 3 days of nausea/vomiting/diarrhea. Still having nonbloody diarrhea but no vomiting stopped as of today. Patient also reports not checking glucose recently. Also reports right arm pain and recently ran out of his Eliquis. No trauma to right upper extremity. Patient would also like the legs evaluated because of history of DVT and no longer taking his blood thinner. Denies fever or GI bleeding. No chest pain or shortness of breath.. Historical: - Allergies: 14:49 No Known Allergies; cm10 - PMHx: 14:49 diabetes mellitus; Gall Stones; history of dialysis; Hypertension; kidney transplant; cm10 Pancreatitis; Deep vein thrombosis; - PSHx: 14:49 Cholecystectomy; kidney transplant; cm10 - Immunization history:: Adult Immunizations up to date. - Social history:: Smoking status: Patient/guardian denies using tobacco, but has a distant history of tobacco abuse. - Family history:: not pertinent. - Hospitalizations: : No recent hospitalization is reported. ROS: 14:53 Constitutional: Negative for fever, chills, and weight loss, Cardiovascular: Negative rn for chest pain, palpitations, and edema, Respiratory: Negative for shortness of breath, cough, wheezing, and pleuritic chest pain, Abdomen/GI: Positive for abdominal cramping/nausea/vomiting/diarrhea Back: Negative for injury and pain, MS/Extremity: Positive for right upper extremity swelling and pain, denies injury Skin: Negative for injury, rash, and discoloration, Neuro: Negative for headache, weakness, numbness, tingling, and seizure, Exam: 14:53 Constitutional: This is a well developed, well nourished patient who is awake, alert, rn and in no acute distress. Ambulatory to triage without difficulty or assistance, was playing games on his phone and jokes about having to stop Head/Face: Normocephalic, atraumatic. ENT: Dry mucous membranes Cardiovascular: Regular rate and rhythm. No pulse deficits. Respiratory: No increased work of breathing, no retractions or nasal flaring. Abdomen/GI: Soft, no focal tenderness or guarding. No rebound. No masses. Skin: Warm, dry. No rash or discoloration. MS/ Extremity: Pulses equal, no cyanosis. Neurovascular intact. Mild swelling right forearm without skin changes. No evidence of compartment syndrome. Compartments soft. Neuro: Awake and alert, GCS 15 Vital Signs: 14:47 BP 150 / 91; Pulse 86; Resp 18 S; Temp 98.4; Pulse Ox 100% on R/A; Weight 112.04 kg; cm10 Height 5 ft. 11 in. ; Pain 9/10; 17:25 BP 163 / 95; ld1 17:25 Pulse 84; Resp 18; Pulse Ox 99% on R/A; ld1 14:47 Body Mass Index 34.45 (112.04 kg, 180.34 cm) cm10 14:47 Pain Scale: Adult cm10 MDM: 14:43 Patient medically screened. rn 16:49 Differential diagnosis: Nonspecific abd pain, gastritis, pancreatitis, viral rn gastroenteritis, gastroenteritis, Viral syndrome. Data reviewed: vital signs, nurses notes, lab test result(s), radiologic studies, CT scan, ultrasound, and as a result, I will discharge patient. Counseling: I had a detailed discussion with the patient and/or guardian regarding the historical points, exam findings, and any diagnostic results supporting the discharge/admit diagnosis, radiology results, the need for outpatient follow up, to return to the emergency department if symptoms worsen or persist or if there are any questions or concerns that arise at home. Response to treatment: the patient's symptoms have markedly improved after treatment, and as a result, I will discharge patient. Special discussion: Based on the patient's Hx, exam, and Dx evaluation, there is no indication for emergent surgery or inpatient Tx. It is understood by the patient/guardian that if the Sx's persist or worsen they need to return immediately for re-evaluation. I discussed with the patient/guardian in detail that at this point there is no indication for admission to the hospital. It is understood, however, that if the symptoms persist or worsen the patient needs to return immediately for re-evaluation. ED course: CT abdomen pelvis without acute findings. Ultrasound of all 3 extremities negative for DVT. Will send home with antibiotics for right arm swelling given no signs of trauma or complaint of trauma. Patient afebrile. Nursing unable to get blood draw but imaging already back. Will discharge home with antibiotics and pain medication with as needed Zofran.. 04/29 15:05 Order name: Glucose, Ancillary Testing; Complete Time: 15:33 EDMS 04/29 14:50 Order name: Extrem Venous W Compression Last US; Complete Time: 16:18 rn 04/29 14:51 Order name: CT Abd/Pelvis - Without Contrast; Complete Time: 16:27 rn 04/29 14:54 Order name: UPPER EXTREMITY VENOUS UNILATE; Complete Time: 16:18 EDMS 04/29 14:51 Order name: IV Saline Lock; Complete Time: 17:09 rn Administered Medications: 17:09 Drug: NS 0.9% IV 1000 ml IV at 1 bolus Per protocol; 1000 mL bolus Route: IV; Rate: 1 me1 bolus; Site: left antecubital; 17:09 Drug: Famotidine IVP 20 mg IVP once; dilute with 10 mL 0.9% NaCl; give over 2 minutes me1 Route: IVP; Site: left antecubital; 17:09 Drug: Ondansetron IVP 4 mg IVP once; over 2 minutes Route: IVP; Site: left antecubital; me1 17:09 Drug: morphine IVP or IV 4 mg IVP once over 4 mins Route: IVP; Infused Over: 4 mins; me1 Site: left antecubital; 17:36 Drug: Trimethoprim-Sulfamethoxazole PO (160 mg-800 mg (DS) 1 tablet PO once Route: PO; ld1 Point of Care Testing: Blood Glucose: 14:54 Blood Glucose: 95 mg/dL; cm10 Ranges: Critical Glucose Levels:Adult <50 mg/dl or >400 mg/dl <40 mg/dl or >180 mg/dl Disposition Summary: 04/29/23 17:11 Discharge Ordered Notes: Location: Home rn Problem: new rn Symptoms: have improved rn Condition: Stable rn Diagnosis - Vomiting, unspecified rn - Diarrhea, unspecified rn - Pain in right forearm rn Followup: rn - With: Private Physician - When: As needed - Reason: Recheck today's complaints, Re-evaluation by your physician Discharge Instructions: - Discharge Summary Sheet rn - Diarrhea, Adult rn - Nausea and Vomiting, Adult rn Forms: - Medication Reconciliation Form rn - Thank You Letter rn - Antibiotic corn popper - Prescription Opioid Use rn - Patient Portal Instructions rn - Leadership Thank You Letter rn Prescriptions: - ondansetron 4 mg Oral Tablet,disintegrating - take 1 tablet ORAL route every 8-12 hours As needed; 12 tablet; Refills: 0, rn Product Selection Permitted - Tramadol 50 mg Oral Tablet - take 1 tablet ORAL route every 8 hours as needed; 12 tablet; Refills: 0, rn Product Selection Permitted - Bactrim DS 800-160 mg Oral Tablet - take 1 tablet ORAL route every 12 hours for 10 days; 20 tablet; Refills: 0, rn Product Selection Permitted Signatures: Dispatcher [employer] EDMS Sebas Stephenson MD MD rn Sims, Lauren RN RN ld1 Rachael Cramer RN RN cm10 Xiomara Quintanilla RN RN me1 Corrections: (The following items were deleted from the chart) 14:52 14:50 Extremity Venous Uni Ltd+US.RAD.BRZ ordered. EDMS EDMS 16:54 14:51 CBC+H.LAB.BRZ ordered. EDMS EDMS 16:54 14:51 COMPREHENSIVE METABOLIC PANEL+C.LAB.BRZ ordered. EDMS EDMS 16:54 14:51 LIPASE+C.LAB.BRZ ordered. EDMS EDMS 17:29 14:51 Labs collected and sent ordered. rn ld1
--- NOTE | 2023-04-29 17:11 | ER ---
Nurse's Notes [facility] Name: Shoaib Freitas Jr Age: 58 yrs Sex: Male : 1965 Arrival Date: 04/29/2023 Time: 14:38 Bed 18 Private MD: Diagnosis: Vomiting, unspecified;Diarrhea, unspecified;Pain in right forearm Presentation: 04/29 14:47 Chief complaint: Patient states: Abdominal pain, vomiting and diarrhea X2 days. Pt also cm10 reports having right lower arm pain and swelling X1 week. Coronavirus screen: Vaccine status: Patient reports receiving the 2nd dose of the covid vaccine. Client denies travel out of the [place] in the last 14 days. Ebola Screen: Patient denies travel to an Ebola-affected area in the 21 days before illness onset. No symptoms or risks identified at this time. Initial Sepsis Screen: Does the patient meet any 2 criteria? No. Patient's initial sepsis screen is negative. Does the patient have a suspected source of infection? No. Patient's initial sepsis screen is negative. Risk Assessment: Do you want to hurt yourself or someone else? Patient reports no desire to harm self or others. Onset of symptoms was April 29, 2023. 14:47 Method Of Arrival: Ambulatory cm10 14:47 Acuity: COBY 3 cm10 Historical: - Allergies: 14:49 No Known Allergies; cm10 - PMHx: 14:49 diabetes mellitus; Gall Stones; history of dialysis; Hypertension; kidney transplant; cm10 Pancreatitis; Deep vein thrombosis; - PSHx: 14:49 Cholecystectomy; kidney transplant; cm10 - Immunization history:: Adult Immunizations up to date. - Social history:: Smoking status: Patient/guardian denies using tobacco, but has a distant history of tobacco abuse. - Family history:: not pertinent. - Hospitalizations: : No recent hospitalization is reported. Screenin:14 [facility] ED Fall Risk Assessment (Adult) History of falling in the last 3 months, me1 including since admission No falls in past 3 months (0 pts) Confusion or Disorientation No (0 pts) Intoxicated or Sedated No (0 pts) Impaired Gait No (0 pts) Mobility Assist Device Used No (0 pt) Altered Elimination No (0 pt) Score/Fall Risk Level 0 - 2 = Low Risk Maintained a safe environment, Provided non-skid footwear, Hourly rounding (assess needs \T\ fall precautionary measures) done. Abuse screen: Denies threats or abuse. Nutritional screening: No deficits noted. Tuberculosis screening: No symptoms or risk factors identified. Assessment: 17:14 General: Appears uncomfortable, ill, well groomed, well developed, well nourished, me1 Behavior is calm, cooperative, appropriate for age, Reports Abdominal pain, vomiting and diarrhea X2 days. Pt also reports having right lower arm pain and swelling X1 week. Pain: Complains of pain in dorsal aspect of right forearm Pain does not radiate. Pain currently is 9 out of 10 on a pain scale. Quality of pain is described as tender, Pain began 1 day ago. Is continuous. Neuro: Level of Consciousness is awake, alert, obeys commands, Oriented to person, place, time, situation, Appropriate for age. Cardiovascular: Capillary refill < 3 seconds Patient's skin is warm and dry. Respiratory: Airway is patent Respiratory effort is even, unlabored, Respiratory pattern is regular, symmetrical. GI: Bowel sounds present X 4 quads. Abd is soft and non tender X 4 quads. Reports diarrhea, nausea, vomiting, since 2 days. Vital Signs: 14:47 BP 150 / 91; Pulse 86; Resp 18 S; Temp 98.4; Pulse Ox 100% on R/A; Weight 112.04 kg; cm10 Height 5 ft. 11 in. ; Pain 9/10; 17:25 BP 163 / 95; ld1 17:25 Pulse 84; Resp 18; Pulse Ox 99% on R/A; ld1 14:47 Body Mass Index 34.45 (112.04 kg, 180.34 cm) cm10 14:47 Pain Scale: Adult cm10 ED Course: 14:40 Patient arrived in ED. mr 14:43 Sebas Stephenson MD is Attending Physician. rn 14:49 Triage completed. cm10 14:50 Arm band placed on Patient placed in waiting room. cm10 15:10 Xiomara Quintanilla, PRINCESS is Primary Nurse. me1 15:55 Extrem Venous W Compression Last US In Process Unspecified. EDMS 16:08 UPPER EXTREMITY VENOUS UNILATE In Process Unspecified. EDMS 16:14 CT Abd/Pelvis - Without Contrast In Process Unspecified. EDMS 17:14 Patient has correct armband on for positive identification. Bed in low position. Call me1 light in reach. Side rails up X2. Provided Education on: POC. Verbalized understanding . 17:14 No provider procedures requiring assistance completed. Inserted saline lock: 24 gauge me1 in left antecubital area, using aseptic technique. 17:37 IV discontinued, intact, bleeding controlled, No redness/swelling at site. ld1 Administered Medications: 17:09 Drug: NS 0.9% IV 1000 ml IV at 1 bolus Per protocol; 1000 mL bolus Route: IV; Rate: 1 me1 bolus; Site: left antecubital; 17:09 Drug: Famotidine IVP 20 mg IVP once; dilute with 10 mL 0.9% NaCl; give over 2 minutes me1 Route: IVP; Site: left antecubital; 17:09 Drug: Ondansetron IVP 4 mg IVP once; over 2 minutes Route: IVP; Site: left antecubital; me1 17:09 Drug: morphine IVP or IV 4 mg IVP once over 4 mins Route: IVP; Infused Over: 4 mins; me1 Site: left antecubital; 17:36 Drug: Trimethoprim-Sulfamethoxazole PO (160 mg-800 mg (DS) 1 tablet PO once Route: PO; ld1 Medication: 17:14 VIS not applicable for this client. me1 Point of Care Testing: Blood Glucose: 14:54 Blood Glucose: 95 mg/dL; cm10 Ranges: Outcome: 17:11 Discharge ordered by . rn 17:37 Discharged to home ambulatory, with family, ld1 17:37 Condition: stable 17:37 Discharge instructions given to patient, family, Instructed on discharge instructions, follow up and referral plans. medication usage, Demonstrated understanding of instructions, follow-up care, medications, Prescriptions given X 3, 17:37 Patient left the ED. ld1 Signatures: Dispatcher [employer] EDUT Eufemia Pires, Reg Reg Sebas Dorantes MD MD rn Sims, Lauren, RN RN ld1 Rachael Cramer RN RN cm10 Xiomara Quintanilla RN RN me1 Corrections: (The following items were deleted from the chart) 17:14 14:47 Chief complaint: Patient states: Abdominal pain, vomiting and diarrhea X2 days. me1 Pt also reports having right lower arm pain and swelling X1 week. cm10
[2023-04-29 18:25] VITALS: BP 163/95; TEMP 98.4; O2SAT 99
== END ==
LOC: ER 14:38
DX: R11.10 Vomiting, unspecified (principal); R19.7 Diarrhea, unspecified; M79.631 Pain in right forearm; Z94.0 Kidney transplant status
CPT/HCPCS: 82947; 74176; 93971; 93970; J2405; J7030

== ENCOUNTER → 2023-07-01 | Emergency (ER) | payer OTHER ==
[~2023-07-01] MED LIST changes: +CLINDAMYCIN 600MG/D5W 50 ML IV ONE; -FAMOTIDINE 20 MG/2 ML VIAL IV ONE; -NA CHLORIDE 0.9% 1,000 ML ONE; -SULFAMETH/TRIMETHOPRIM 200 MG/5 ML UDBOT ONE
--- NOTE | 2023-07-01 12:12 | RAD REPORT ---
EXAM DESCRIPTION: US - Extremity Venous Uni Ltd - 07/01/2023 11:58 am CLINICAL HISTORY: Swelling COMPARISON: None. TECHNIQUE: Real-time sonographic evaluation of the right lower extremity deep venous system was perf ormed. FINDINGS: Normal compressibility, flow augmentation, phasic flow and spontaneous flow is identified in the right lower extremity deep venous system. No intraluminal filling defects seen. IMPRESSION: No DVT in the right lower extremity.
[2023-07-01 13:13] LABS: Absolute Basophils 0.1 K/uL (0-0.5); Absolute Eosinophils 0.1 K/uL (0-0.5); Absolute Lymphocytes (CBC) 1.4 K/uL (0.7-4.9); Absolute Monocytes 0.6 K/uL (0.1-1.3); Absolute Neutrophil 6.4 K/uL (1.8-8.0); Basophils % 0.6 % (0-1.3); Eosinophils % 1.6 % (0-4.4); Hemoglobin 12.8 g/dL (13.6-17.9); Lymphocytes % 16.6 % (15.3-44.8); MCH 34.8 pg (27.0-35.0); MCHC 35.5 g/dL (32.0-36.0); MPV 7.1 fL (7.6-11.3); Neutrophils % 74.2 % (41.7-73.7); Nucleated Red Blood Cells % 0.1 % (0-0); Platelets 309 thou/uL (152-406); RBC Red Blood Cell Count 3.67 M/uL (4.33-5.43); Red Cell Distribution Width 12.5 % (12.1-15.2)
[2023-07-01 13:29] LABS: Albumin 3.3 g/dL (3.4-5.0); Albumin/Globulin Ratio 0.7 (1.1-1.8); Anion Gap 9.5 mEq/L (5.0-15.0); Bilirubin Total 0.2 mg/dL (0.2-1.0); Globulin 4.5 g/dL (2.3-3.5); Potassium 3.5 mEq/L (3.5-5.1); Protein, Total 7.8 g/dL (6.4-8.2)
--- NOTE | 2023-07-01 13:47 | ER ---
Nurse's Notes [facility] Name: Shoaib Freitas Jr Age: 58 yrs Sex: Male : 1965 Arrival Date: 07/01/2023 Time: 10:59 Bed 18 Private MD: Diagnosis: Cellulitis right lower extremity Presentation: 06/30 11:20 Chief complaint: Patient states: Pain to right lower leg. Redness, swelling, warm to ld1 touch X 3 days. Coronavirus screen: At this time, the client does not indicate any symptoms associated with coronavirus-19. Ebola Screen: No symptoms or risks identified at this time. Initial Sepsis Screen: Does the patient meet any 2 criteria? No. Patient's initial sepsis screen is negative. Does the patient have a suspected source of infection? No. Patient's initial sepsis screen is negative. Risk Assessment: Do you want to hurt yourself or someone else? Patient reports no desire to harm self or others. Onset of symptoms was July 01, 2023. 11:20 Method Of Arrival: Ambulatory ld1 11:20 Acuity: COBY 3 ld1 Triage Assessment: :22 General: Appears in no apparent distress. comfortable, Behavior is calm, cooperative, ld1 appropriate for age. Pain: Complains of pain in right leg Pain does not radiate. Pain currently is 7 out of 10 on a pain scale. Quality of pain is described as throbbing, Pain began suddenly, Is continuous. EENT: No signs and/or symptoms were reported regarding the EENT system. Neuro: Level of Consciousness is awake, alert, obeys commands, Oriented to person, place, time, situation. Cardiovascular: Capillary refill < 3 seconds Patient's skin is warm and dry. Respiratory: Airway is patent Respiratory effort is even, unlabored. GI: Abdomen is round non-distended. : No signs and/or symptoms were reported regarding the genitourinary system. Derm: Skin is red, Skin temperature is warm Wound noted right leg. Musculoskeletal: No signs and/or symptoms reported regarding the musculoskeletal system. Historical: - Allergies: : No Known Allergies; ld1 - PMHx: : Deep vein thrombosis; diabetes mellitus; Gall Stones; history of dialysis; ld1 Hypertension; kidney transplant; Pancreatitis; - PSHx: :22 Cholecystectomy; kidney transplant; ld1 - Immunization history:: Adult Immunizations up to date. - Social history:: Smoking status: Patient denies any tobacco usage or history of. Patient/guardian denies using alcohol. Screenin:45 [facility] ED Fall Risk Assessment (Adult) History of falling in the last 3 months, nj1 including since admission No falls in past 3 months (0 pts) Confusion or Disorientation No (0 pts) Intoxicated or Sedated No (0 pts) Impaired Gait No (0 pts) Mobility Assist Device Used No (0 pt) Altered Elimination No (0 pt) Score/Fall Risk Level 0 - 2 = Low Risk Oriented to surroundings, Maintained a safe environment, Hourly rounding (assess needs \T\ fall precautionary measures) done. Abuse screen: Denies threats or abuse. Denies injuries from another. Nutritional screening: No deficits noted. Tuberculosis screening: No symptoms or risk factors identified. Assessment: 11:43 General: Appears in no apparent distress. comfortable, Behavior is calm, cooperative, nj1 appropriate for age. Pain: Complains of pain in right leg Pain currently is 8 out of 10 on a pain scale. Neuro: Level of Consciousness is awake, alert, obeys commands, Oriented to person, place, time, situation. Cardiovascular: Patient's skin is warm and dry. Respiratory: Airway is patent Respiratory effort is even, unlabored. Musculoskeletal: Swelling present in right leg erythema noted to lower leg Reports pain in right leg. 13:17 Reassessment: Patient appears in no apparent distress at this time. Patient and/or nj1 family updated on plan of care and expected duration. Pain level reassessed. Patient is alert, oriented x 3, equal unlabored respirations, skin warm/dry/pink. 14:17 Reassessment: Patient appears in no apparent distress at this time. Reassessment: nj1 Patient is alert, oriented x 3, equal unlabored respirations, skin warm/dry/pink. Vital Signs: 11:20 BP 163 / 95; Pulse 97; Resp 18; Temp 98.3(TE); Pulse Ox 96% on R/A; Weight 68.04 kg; ld1 Height 5 ft. 11 in. ; Pain 8/10; 13:17 BP 128 / 97; Pulse 86; Resp 18; Pulse Ox 100% on R/A; Pain 8/10; nj1 14:16 BP 146 / 52; Pulse 89; Resp 18; Temp 98(TE); Pulse Ox 98% on R/A; Pain 7/10; nj1 11:20 Body Mass Index 20.92 (68.04 kg, 180.34 cm) ld1 11:20 Pain Scale: Adult ld1 13:17 Pain Scale: Adult nj1 14:16 Pain Scale: Adult nj1 ED Course: 11:04 Patient arrived in ED. im 11:04 Raghav Hsu MD is Attending Physician. sp3 11:22 Triage completed. ld1 11:22 Arm band placed on right wrist. ld1 11:43 Sarah Richards, PRINCESS is Primary Nurse. nj1 11:45 Patient has correct armband on for positive identification. Bed in low position. Call nj1 light in reach. Side rails up X 1. 11:45 Provided Education on: call light, fall precautions. nj1 12:00 US Extremity Venous Unilateral Ltd In Process Unspecified. EDMS 12:50 Inserted saline lock: 20 gauge in right antecubital area, using aseptic technique. nj1 ,using aseptic technique. Ultrasound guided. Catheter tip well visualized within vasculature during placement. Blood collected. 14:19 No provider procedures requiring assistance completed. IV discontinued, intact, nj1 bleeding controlled, Pressure dressing applied. Administered Medications: 13:10 Drug: Ondansetron IVP 4 mg IVP once; over 2 minutes Route: IVP; Site: right antecubital;nj1 13:51 Follow up: Response: No adverse reaction nj1 13:12 Drug: morphine IVP or IV 4 mg IVP once over 4 mins Route: IVP; Infused Over: 4 mins; nj1 Site: right antecubital; 13:51 Follow up: Response: No adverse reaction; Pain is decreased nj1 13:16 Drug: Clindamycin IVPB 600 mg IVPB once over 30 mins; (mix in 50 mL) Route: IVPB; nj1 Infused Over: 30 mins; Site: right antecubital; 13:45 Follow up: Response: No adverse reaction; IV Status: Completed infusion; IV Intake: [id number] Medication: 14:20 VIS not applicable for this client. nj1 Intake: 13:45 IV: 50ml; Total: 50ml. nj1 Outcome: 13:46 Discharge ordered by . sp3 14:19 Discharged to home ambulatory, nj1 14:19 Condition: stable 14:19 Discharge instructions given to patient, Instructed on discharge instructions, follow up and referral plans. medication usage, Demonstrated understanding of instructions, follow-up care, medications, Prescriptions given X 1, 14:20 Patient left the ED. nj1 Signatures: Dispatcher [employer] EDMS Shante Carlin RN RN ld1 Raghav Hsu MD MD sp3 Sarah Richards RN RN nj1 Sherita Lamas Corrections: (The following items were deleted from the chart) 13:36 11:43 Cardiovascular: Patient's skin is warm and dry. nj1 nj1 13:36 11:43 Musculoskeletal: Reports pain in right leg nj nj1
--- NOTE | 2023-07-01 13:47 | EDPHYS ---
Physician Documentation [facility] Name: Shoaib Freitas Jr Age: 58 yrs Sex: Male : 1965 Arrival Date: 07/01/2023 Time: 10:59 Bed 18 Private MD: ED Physician Raghav Hsu HPI: 06/30 13:00 This 58 yrs old Black Male presents to ER via Ambulatory with complaints of Leg sp3 Swelling. 13:00 58-year-old male with history of diabetes, prior DVTs and bilateral lower extremities, sp3 hypertension, dialysis in the past now presents to the ED with chief complaint right lower extremity swelling and erythema. Patient is concerned about DVT versus infection. He denies any other symptoms including fever, URI symptoms, chest pain, shortness of breath, abdominal pain, nausea, vomiting, diarrhea, syncope, near syncope, focal neurological deficit, known sick contacts, travel history or any other signs or symptoms on ROS at this time.. Historical: - Allergies: 11:22 No Known Allergies; ld1 - PMHx: 11:22 Deep vein thrombosis; diabetes mellitus; Gall Stones; history of dialysis; ld1 Hypertension; kidney transplant; Pancreatitis; - PSHx: 11:22 Cholecystectomy; kidney transplant; ld1 - Immunization history:: Adult Immunizations up to date. - Social history:: Smoking status: Patient denies any tobacco usage or history of. Patient/guardian denies using alcohol. ROS: 13:01 Constitutional: Negative for fever, chills, and weight loss, Eyes: Negative for injury, sp3 pain, redness, and discharge, ENT: Negative for injury, pain, and discharge, Neck: Negative for injury, pain, and swelling, Cardiovascular: Negative for chest pain, palpitations, and edema, Respiratory: Negative for shortness of breath, cough, wheezing, and pleuritic chest pain, Abdomen/GI: Negative for abdominal pain, nausea, vomiting, diarrhea, and constipation, Back: Negative for injury and pain, Neuro: Negative for headache, weakness, numbness, tingling, and seizure, Psych: Negative for depression, anxiety, suicide ideation, homicidal ideation, and hallucinations, Allergy/Immunology: Negative for hives, rash, and allergies, Endocrine: Negative for neck swelling, polydipsia, polyuria, polyphagia, and marked weight changes, 13:01 All other systems are negative, Exam: 13:01 Constitutional: This is a well developed, well nourished patient who is awake, alert, sp3 and in no acute distress. Head/Face: Normocephalic, atraumatic. Eyes: Pupils equal round and reactive to light, extra-ocular motions intact. Lids and lashes normal. Conjunctiva and sclera are non-icteric and not injected. Cornea within normal limits. Periorbital areas with no swelling, redness, or edema. Neck: Trachea midline, no thyromegaly or masses palpated, and no cervical lymphadenopathy. Supple, full range of motion without nuchal rigidity, or vertebral point tenderness. No Meningismus. Chest/axilla: Normal chest wall appearance and motion. Nontender with no deformity. No lesions are appreciated. Cardiovascular: Regular rate and rhythm with a normal S1 and S2. No gallops, murmurs, or rubs. Normal PMI, no JVD. No pulse deficits. Respiratory: Lungs have equal breath sounds bilaterally, clear to auscultation and percussion. No rales, rhonchi or wheezes noted. No increased work of breathing, no retractions or nasal flaring. Abdomen/GI: Soft, non-tender, with normal bowel sounds. No distension or tympany. No guarding or rebound. No evidence of tenderness throughout. Back: No spinal tenderness. No costovertebral tenderness. Full range of motion. Neuro: Awake and alert, GCS 15, oriented to person, place, time, and situation. Cranial nerves II-XII grossly intact. Motor strength 5/5 in all extremities. Sensory grossly intact. Cerebellar exam normal. Normal gait. Psych: Awake, alert, with orientation to person, place and time. Behavior, mood, and affect are within normal limits. 13:01 Musculoskeletal/extremity: Right lower extremity circumferential swelling and anterior erythema consistent with probable cellulitis.. Vital Signs: 11:20 BP 163 / 95; Pulse 97; Resp 18; Temp 98.3(TE); Pulse Ox 96% on R/A; Weight 68.04 kg; ld1 Height 5 ft. 11 in. ; Pain 8/10; 13:17 BP 128 / 97; Pulse 86; Resp 18; Pulse Ox 100% on R/A; Pain 8/10; nj1 14:16 BP 146 / 52; Pulse 89; Resp 18; Temp 98(TE); Pulse Ox 98% on R/A; Pain 7/10; nj1 11:20 Body Mass Index 20.92 (68.04 kg, 180.34 cm) ld1 11:20 Pain Scale: Adult ld1 13:17 Pain Scale: Adult nj1 14:16 Pain Scale: Adult nj1 MDM: 11:34 Patient medically screened. sp3 13:02 Data reviewed: vital signs, nurses notes, lab test result(s), radiologic studies. ED sp3 course: 58-year-old male with probable cellulitis in the right lower extremity. Ultrasound is negative for DVT. Will assess laboratory values and administer clindamycin 600 mg IV and then make a decision on outpatient versus inpatient care depending on workup. I am not highly suspicious for sepsis, vascular pathology arterial in nature or venous given the negative ultrasound.. 13:45 ED course: Laboratory values reviewed and vital signs are also continued to be normal. sp3 Outpatient therapy we will opt for outpatient treatment with clindamycin and follow-up to PCP.. 06/30 12:24 Order name: CBC with Diff; Complete Time: 13:40 sp3 06/30 12:24 Order name: CMP; Complete Time: 13:40 sp3 06/30 12:24 Order name: Blood Culture Adult (2) sp3 06/30 11:34 Order name: US Extremity Venous Unilateral Ltd; Complete Time: 12:13 sp3 06/30 12:24 Order name: IV Saline Lock; Complete Time: 13:00 sp3 06/30 12:24 Order name: Labs collected and sent; Complete Time: 13:00 sp3 Administered Medications: 13:10 Drug: Ondansetron IVP 4 mg IVP once; over 2 minutes Route: IVP; Site: right antecubital;nj1 13:51 Follow up: Response: No adverse reaction nj1 13:12 Drug: morphine IVP or IV 4 mg IVP once over 4 mins Route: IVP; Infused Over: 4 mins; nj1 Site: right antecubital; 13:51 Follow up: Response: No adverse reaction; Pain is decreased nj1 13:16 Drug: Clindamycin IVPB 600 mg IVPB once over 30 mins; (mix in 50 mL) Route: IVPB; nj1 Infused Over: 30 mins; Site: right antecubital; 13:45 Follow up: Response: No adverse reaction; IV Status: Completed infusion; IV Intake: [id number] Disposition Summary: 07/01/23 13:46 Discharge Ordered Notes: Location: Home sp3 Condition: Stable sp3 Diagnosis - Cellulitis right lower extremity sp3 Followup: sp3 - With: Private Physician - When: Upon discharge from the Emergency Department - Reason: Continuance of care Discharge Instructions: - Discharge Summary Sheet sp3 - Cellulitis, Adult sp3 Forms: - Medication Reconciliation Form sp3 - Thank You Letter sp3 - Antibiotic Education sp3 - Prescription Opioid Use sp3 - Patient Portal Instructions sp3 - Leadership Thank You Letter sp3 Prescriptions: - Clindamycin HCl 300 mg Oral Capsule - take 1 capsule ORAL route every 6 hours for 10 days; 40 capsule; Refills: 0, sp3 Product Selection Permitted Signatures: Dispatcher [employer] Shante Jansen RN RN ld1 Raghav Hsu MD MD sp3 Sarah Richards RN RN nj1
[2023-07-01 15:00] VITALS: BP 146/52; TEMP 98; O2SAT 98
== END ==
LOC: ER 10:59
DX: L03.115 Cellulitis of right lower limb (principal); Z86.718 Personal history of other venous thrombosis and embolism; Z94.0 Kidney transplant status
CPT/HCPCS: 87040 ×2; 85025; 36415; 80053; 93971; J2405

== ENCOUNTER 2024-05-11 08:17 | Emergency (ER) | payer OTHER ==
--- NOTE | 2024-05-11 09:30 | RAD REPORT ---
Extremity Venous Uni Ltd CLINICAL INDICATION: Male, 59 years old.discoloration;Pain RIGHT TECHNIQUE: Complete duplex sonography of the lower extremity veins was performed of the affected limb . The examination included compression For vein patency, color Doppler imaging and flow augmentation in response to distal compression of the distal external iliac, common femoral, femoral, popliteal, peroneal, tibial and great saphenous veins. [id number]. COMPARISON: No prior exams FINDINGS: Duplex sonography imaging demonstrates noncompressible popliteal and posterior tibial veins with echo genic. The remaining veins in the right lower extremity were compressible and patent. IMPRESSION: Positive for deep venous thrombosis in the right popliteal and posterior tibial veins. THIS REPORT CONTAINS FINDINGS THAT MAY BE CRITICAL TO PATIENT CARE. The emergent findings regarding D VT were communicated to Dr. Lucy Stephenson on 05/11/2024 9:28 AM.
--- NOTE | 2024-05-11 09:31 | RAD REPORT ---
EXAM: Chest Single View HISTORY: CHEST PAIN COMPARISON: 04/07/2023 FINDINGS: LUNGS/PLEURA: The lungs are clear. No pleural effusions or pneumothorax. No pulmonary edema. MEDIASTINUM: The mediastinal silhouette is within normal limits. CARDIAC: The cardiac silhouette is within normal limits. UPPER ABDOMEN: No significant abnormality. BONES: No acute abnormality. LINES/TUBES/OTHER: N/A IMPRESSION: No evidence of acute cardiopulmonary disease.
--- NOTE | 2024-05-11 09:32 | RAD REPORT ---
EXAMINATION: US LOWER EXTREMITIES ARTERIAL DOPPLER RIGHT CLINICAL INDICATION: Male, 59 years old. discoloration;Pain RIGHT TECHNIQUE: Arterial duplex ultrasound was performed of the right leg with real-time and Doppler evalu ation. [id number]. COMPARISON: No prior exam. FINDINGS: Right leg Doppler: Grayscale: No plaque. Common femoral: Waveform: Triphasic Peak systolic velocity (cm/sec): 68 Superficial femoral: Waveform: Triphasic Peak systolic velocity (cm/sec): 73 Popliteal Waveform: Triphasic Peak systolic velocity (cm/sec): 60 Tibial: Waveform: Triphasic Peak systolic velocity (cm/sec): 63 Dorsalis pedis: Waveform: Triphasic Peak systolic velocity (cm/sec): 94 IMPRESSION: No flow-limiting arterial stenosis identified in the right lower extremity.
[2024-05-11] MEDS ORDERED: APIXABAN 5 MG TABLET ONE (09:45)
[2024-05-11 10:24] LABS: Absolute Basophils 0.1 K/uL (0-0.5); Absolute Eosinophils 0.1 K/uL (0-0.5); Absolute Lymphocytes (CBC) 1.2 K/uL (0.7-4.9); Absolute Monocytes 0.5 K/uL (0.1-1.3); Absolute Neutrophil 4.5 K/uL (1.8-8.0); Basophils % 0.8 % (0-1.3); Eosinophils % 1.1 % (0-4.4); Hemoglobin 12.9 g/dL (13.6-17.9); Lymphocytes % 19.1 % (15.3-44.8); MCH 31.6 pg (27.0-35.0); MCHC 34.1 g/dL (32.0-36.0); MCV 92.9 fL (80-100); MPV 7.3 fL (7.6-11.3); Monocytes % 7.5 % (3.3-12.3); Neutrophils % 71.5 % (41.7-73.7); Platelets 272 thou/uL (152-406); RBC Red Blood Cell Count 4.09 M/uL (4.33-5.43); Red Cell Distribution Width 13.2 % (12.1-15.2)
[2024-05-11 10:36] LABS: Anion Gap 8.1 mEq/L (5.0-15.0); Potassium 4.1 mEq/L (3.5-5.1); Troponin High Sensitivity 22.6 pg/mL (<58.9)
[2024-05-11 11:35] LABS: PT Prothrombin Time 11.8 SECONDS (9.4-12.5); Protime INR 1.13
--- NOTE | 2024-05-11 11:40 | ER ---
Nurse's Notes [facility] Name: Shoaib Freitas Jr Age: 59 yrs Sex: Male : 1965 Arrival Date: 05/11/2024 Time: 08:17 Bed 25 Private MD: Diagnosis: Acute embolism and thrombosis of unspecified deep veins of right lower extremity Presentation: 05/11 08:42 Chief complaint: Patient states: Right leg darker than left, unknown time frame, pain jl7 to right groin. Coronavirus screen: At this time, the client does not indicate any symptoms associated with coronavirus-19. Ebola Screen: No symptoms or risks identified at this time. Initial Sepsis Screen: Does the patient meet any 2 criteria? No. Patient's initial sepsis screen is negative. Does the patient have a suspected source of infection? No. Patient's initial sepsis screen is negative. Risk Assessment: Do you want to hurt yourself or someone else? Patient reports no desire to harm self or others. Onset of symptoms is unknown. 08:42 Method Of Arrival: Ambulatory jl7 08:42 Acuity: COBY 3 jl7 Triage Assessment: 08:44 General: Appears in no apparent distress. uncomfortable, Behavior is calm, cooperative, jl7 appropriate for age. Pain: Complains of pain in right leg Pain currently is 8 out of 10 on a pain scale. Neuro: No deficits noted. Cardiovascular: Patient's skin is warm and dry. Respiratory: Airway is patent Respiratory effort is even, unlabored, Respiratory pattern is regular, symmetrical. Derm: Skin is pink, warm \T\ dry. Musculoskeletal: slight discoloration to right leg. Historical: - Allergies: 08:44 No Known Allergies; jl7 - PMHx: 08:44 Deep vein thrombosis; diabetes mellitus; Gall Stones; history of dialysis; jl7 Hypertension; kidney transplant; Pancreatitis; - PSHx: 08:44 Cholecystectomy; kidney transplant; jl7 - Immunization history:: Adult Immunizations unknown. - Infectious Disease History:: Denies. - Family history:: not pertinent. - Hospitalizations: : No recent hospitalization is reported. - Social history:: Smoking status: unknown. Screenin:00 [facility] ED Fall Risk Assessment (Adult) History of falling in the last 3 months, bp including since admission No falls in past 3 months (0 pts) Confusion or Disorientation No (0 pts) Intoxicated or Sedated No (0 pts) Impaired Gait No (0 pts) Mobility Assist Device Used No (0 pt) Altered Elimination No (0 pt) Score/Fall Risk Level 0 - 2 = Low Risk Oriented to surroundings. Abuse screen: Denies threats or abuse. Denies injuries from another. Nutritional screening: No deficits noted. Tuberculosis screening: No symptoms or risk factors identified. Assessment: 08:45 General: Appears in no apparent distress. comfortable, Behavior is calm, cooperative, bp appropriate for age. 10:00 Reassessment: Patient appears in no apparent distress at this time. Patient is alert, bp oriented x 3, equal unlabored respirations, skin warm/dry/pink. 12:00 Reassessment: Patient appears in no apparent distress at this time. Patient is alert, bp oriented x 3, equal unlabored respirations, skin warm/dry/pink. Vital Signs: 08:42 BP 135 / 96; Pulse 81; Resp 17; Temp 98.2; Pulse Ox 100% ; Weight 90.72 kg; Height 5 jl7 ft. 11 in. ; Pain 8/10; 12:00 BP 127 / 85; Pulse 85; Resp 18; Pulse Ox 100% ; bp 08:42 Body Mass Index 27.89 (90.72 kg, 180.34 cm) jl7 08:42 Pain Scale: Adult jl7 ED Course: 08:19 Patient arrived in ED. mr 08:25 Sebas Stephenson MD is Attending Physician. rn 08:44 Triage completed. jl7 08:44 Arm band placed on right wrist. jl7 09:05 Mic Cardozo, RN is Primary Nurse. bp 09:24 Extremity Venous Uni Ltd US In Process Unspecified. EDMS 09:24 Lower Extremity Artery Uni Ltd US In Process Unspecified. EDMS 09:29 XRAY Chest (1 view) In Process Unspecified. EDMS 10:00 Inserted saline lock: 24 gauge in right hand, using aseptic technique. Blood collected. bp Flushed with 10 mL NS. 12:00 Patient has correct armband on for positive identification. bp 12:00 No provider procedures requiring assistance completed. IV discontinued, intact, bp bleeding controlled, No redness/swelling at site. Pressure dressing applied. Administered Medications: 10:00 Drug: Eliquis PO 10 mg PO once Route: PO; bp 11:26 Follow up: Response: No adverse reaction bp Medication: 12:00 VIS not applicable for this client. bp Point of Care Testing: Blood Glucose: 08:47 Blood Glucose: 375 mg/dL; jl7 Ranges: Outcome: 11:39 Discharge ordered by . rn 12:00 Discharged to home ambulatory, bp 12:00 Condition: stable 12:00 Discharge instructions given to patient, Instructed on discharge instructions, follow up and referral plans. medication usage, Demonstrated understanding of instructions, follow-up care, medications, 12:16 Patient left the ED. bp Signatures: Dispatcher [employer] EDMS Eufemia Pires, Reg Reg mr Sebas Stephenson MD MD rn Leal, Jahala, RN RN jl7 Mic Cardozo RN RN bp
--- NOTE | 2024-05-11 11:40 | EDPHYS ---
Physician Documentation [facility] Name: Shoaib Freitas Jr Age: 59 yrs Sex: Male : 1965 Arrival Date: 05/11/2024 Time: 08:17 Bed 25 Private MD: ED Physician Sebas Stephenson HPI: 05/11 09:41 This 59 yrs old Black Male presents to ER via Ambulatory with complaints of Leg problem.rn 09:41 The patient presents with pain. The complaints affect the posterior aspect of right rn knee and right quadriceps. Onset: The symptoms/episode began/occurred at an unknown time. Severity of symptoms: At their worst the symptoms were mild, in the emergency department the symptoms are unchanged. The patient has experienced similar episodes in the past. Patient reports right lower extremity pain and has noted some discoloration, unknown onset but states at least a week. No trauma. No fever or chills. No signs of infection. Has history of DVT and stopped taking his Eliquis for unknown reason. Denies any shortness of breath.. Historical: - Allergies: 08:44 No Known Allergies; jl7 - PMHx: 08:44 Deep vein thrombosis; diabetes mellitus; Gall Stones; history of dialysis; jl7 Hypertension; kidney transplant; Pancreatitis; - PSHx: 08:44 Cholecystectomy; kidney transplant; jl7 - Immunization history:: Adult Immunizations unknown. - Infectious Disease History:: Denies. - Family history:: not pertinent. - Hospitalizations: : No recent hospitalization is reported. - Social history:: Smoking status: unknown. ROS: 09:42 Constitutional: Negative for fever, chills, and weight loss, Neck: Negative for injury, rn pain, and swelling, Cardiovascular: Negative for palpitations, and edema, Respiratory: Negative for shortness of breath Abdomen/GI: Negative for abdominal pain, nausea, vomiting, diarrhea, and constipation, MS/Extremity: Positive for right lower extremity pain Neuro: Negative for weakness or numbness Exam: 09:42 Constitutional: This is a well developed, well nourished patient who is awake, alert, rn and in no acute distress. Ambulatory to triage without assistance or difficulty Head/Face: Normocephalic, atraumatic. Cardiovascular: Regular rate and rhythm. No pulse deficits. Respiratory: Speaking full sentences, unlabored. No increased work of breathing, no retractions or nasal flaring. Abdomen/GI: Soft, nontender MS/ Extremity: Pulses equal, no cyanosis. Neurovascular intact. Full, normal range of motion. No discoloration appreciated. No focal tenderness along venous system Neuro: Awake and alert, GCS 15 10:19 ECG was reviewed by the Attending Physician. rn Vital Signs: 08:42 BP 135 / 96; Pulse 81; Resp 17; Temp 98.2; Pulse Ox 100% ; Weight 90.72 kg; Height 5 jl7 ft. 11 in. ; Pain 8/10; 12:00 BP 127 / 85; Pulse 85; Resp 18; Pulse Ox 100% ; bp 08:42 Body Mass Index 27.89 (90.72 kg, 180.34 cm) 7 08:42 Pain Scale: Adult jl7 MDM: 08:25 Medical Screening Exam initiated rn 11:38 Differential diagnosis: DVT, arterial insufficiency. Data reviewed: vital signs, nurses rn notes, lab test result(s), radiologic studies, plain films, ultrasound, and as a result, I will discharge patient. Counseling: I had a detailed discussion with the patient and/or guardian regarding the historical points, exam findings, and any diagnostic results supporting the discharge/admit diagnosis, lab results, radiology results, the need for outpatient follow up, to return to the emergency department if symptoms worsen or persist or if there are any questions or concerns that arise at home. Special discussion: I discussed with the patient/guardian in detail that at this point there is no indication for admission to the hospital. It is understood, however, that if the symptoms persist or worsen the patient needs to return immediately for re-evaluation. Based on the history and exam findings, there is no indication for further emergent testing or inpatient evaluation. I discussed with the patient/guardian the need to see the primary care provider for further evaluation of the symptoms. ED course: Ultrasound right lower extremity positive for DVT. Patient is supposed to be on Eliquis and ran out. Will discharge on Eliquis. Oxygen is 100% and patient denies respiratory issues. Troponin negative.. 05/11 08:48 Order name: Basic Metabolic Panel; Complete Time: 11:37 rn 05/11 08:48 Order name: CBC with Diff; Complete Time: 11:37 rn 05/11 08:48 Order name: NT PRO-BNP; Complete Time: 11: rn 05/11 08:48 Order name: PT-INR; Complete Time: 11:37 rn 05/11 08:48 Order name: Troponin HS; Complete Time: 11:37 rn 05/11 08:59 Order name: Glucose, Ancillary Testing; Complete Time: 09:40 EDMS 05/11 08:48 Order name: XRAY Chest (1 view); Complete Time: 09:40 rn 05/11 08:48 Order name: Extremity Venous Uni Ltd US; Complete Time: 09:40 rn 05/11 08:48 Order name: Lower Extremity Artery Uni Ltd US; Complete Time: 09:40 rn 05/11 08:48 Order name: EKG; Complete Time: 08:48 rn 05/11 08:48 Order name: Cardiac monitoring; Complete Time: rn 05/11 08:48 Order name: EKG - Nurse/Tech; Complete Time: rn 05/11 08:48 Order name: IV Saline Lock; Complete Time: : rn 05/11 08:48 Order name: Labs collected and sent; Complete Time: rn 05/11 08:48 Order name: O2 Per Protocol; Complete Time: rn 05/11 08:48 Order name: O2 Sat Monitoring; Complete Time: rn 05/11 08:48 Order name: Glucose Level; Complete Time: rn 05/11 10:35 Order name: Labs - recollect needed: recollect blue top; Complete Time: 11:26 bd EC:19 Rate is 72 beats/min. Rhythm is regular. QRS [place] is Normal. LA interval is normal. QRS rn interval is normal. QT interval is normal. No Q waves. T waves are Normal. No ST changes noted. Clinical impression: Normal ECG. Interpreted by me. Reviewed by me. Administered Medications: 10:00 Drug: Eliquis PO 10 mg PO once Route: PO; bp 11:26 Follow up: Response: No adverse reaction bp Point of Care Testing: Blood Glucose: 08:47 Blood Glucose: 375 mg/dL; jl7 Ranges: Critical Glucose Levels:Adult <50 mg/dl or >400 mg/dl <40 mg/dl or >180 mg/dl Disposition Summary: 05/11/24 11:39 Discharge Ordered Notes: Location: Home rn Problem: new rn Symptoms: have improved rn Condition: Stable rn Diagnosis - Acute embolism and thrombosis of unspecified deep veins of right lower extremity rn Followup: rn - With: Private Physician - When: As needed - Reason: Recheck today's complaints, Re-evaluation by your physician Discharge Instructions: - Discharge Summary Sheet rn - Deep Vein Thrombosis rn Forms: - Medication Reconciliation Form rn - Antibiotic hospital internship - Prescription Opioid Use rn - Patient Portal Instructions rn - Leadership Thank You Letter rn Prescriptions: - Eliquis 5 mg Oral tablet - take 1 tablet ORAL route 2 times per day Start this prescription after you have rn completed the loading prescription; 120 tablet; Refills: 0, Product Selection Permitted - Eliquis 5 mg Oral tablet - take 2 tablet ORAL route every 12 hours for 7 days This is loading rn prescription, to be completed then switch to 2nd prescription.; 28 tablet; Refills: 0, Product Selection Permitted Signatures: Dispatcher [employer] Simona Elizabeth Roman, MD MD rn Leal, Jahala RN RN jl7 Mic Cardozo RN RN bp
[2024-05-11 17:15] VITALS: TEMP 98.2; O2SAT 100
[2024-05-11 17:16] VITALS: BP 127/85
== END 2024-05-11 12:16 | disposition home or self-care (01) ==
LOC: ER 08:17
DX: I82.401 Acute embolism and thrombosis of unspecified deep veins of right lower extremity (principal); Z86.718 Personal history of other venous thrombosis and embolism; Z79.01 Long term (current) use of anticoagulants; Z94.0 Kidney transplant status
CPT/HCPCS: 36415; 71045; 80048; 82947; 83880; 84484; 85025; 85610; 93926; 93971

== ENCOUNTER 2024-12-29 11:19 | Emergency (ER) | payer OTHER ==
[2024-12-29] MEDS ORDERED: NA CHLORIDE 0.9% 1,000 ML ONE ×2 (13:32→14:54)
[2024-12-29 14:03] LABS: Absolute Lymphocytes (CBC) 1.7 K/uL (0.7-4.9); Hematocrit 39.4 % (39.6-49.0); Hemoglobin 14.0 g/dL (13.6-17.9); MCH 33.0 pg (27.0-35.0); MCHC 35.6 g/dL (32.0-36.0); MCV 92.8 fL (80-100); MPV 7.9 fL (7.6-11.3); Nucleated RBC Absolute Count 0.0 (0-0); Nucleated Red Blood Cells % 0.0 % (0-0); RBC Red Blood Cell Count 4.25 M/uL (4.33-5.43); White Blood Count 6.70 thou/uL (4.3-10.9)
[2024-12-29 14:13] LABS: PT Prothrombin Time 11.7 SECONDS (10-13.0); PTT, Activated Partial Thromb 31.4 SECONDS (27.2-37.4); Protime INR 1.04
[2024-12-29 14:24] LABS: ALT/SGPT 26.0 U/L (16-61); AST/SGOT 17.0 U/L (15-37); Albumin 3.3 g/dL (3.4-5.0); Albumin/Globulin Ratio 0.7 (1.1-1.8); Alkaline Phosphatase 108.0 U/L (45-117); Anion Gap 9.9 mEq/L (5.0-15.0); BUN Blood Urea Nitrogen 23.0 mg/dL (7-18); Globulin 4.7 g/dL (2.3-3.5); Glucose Level 310.0 mg/dL (74-106); NT PRO-BNP 158.0 pg/mL (<125); Potassium 3.9 mEq/L (3.5-5.1); Troponin High Sensitivity 20.6 pg/mL (<58.9)
--- NOTE | 2024-12-29 14:44 | RAD REPORT ---
Extremity Venous Uni Ltd CLINICAL INDICATION: Male, 59 years old.Pain;Swelling RIGHT TECHNIQUE: Complete duplex sonography of the lower extremity veins was performed of the affected limb . The examination included compression for vein patency, color Doppler imaging and flow augmentation in response to distal compression of the distal external iliac, common femoral, femoral, popliteal, peroneal, tibial and great saphenous veins. [id number]. COMPARISON: 05/11/2024 FINDINGS: Residual clot remains present in the popliteal vein and posterior tibial vein which is nearly occlusi ve. The remaining veins are compressible and demonstrate patency by color Doppler. IMPRESSION: Residual nearly occlusive thrombus in the right popliteal vein and posterior tibial vein present.
[2024-12-29] MEDS ORDERED: ONDANSETRON 4 MG/2 ML VIAL ONE (15:19)
[2024-12-29] MEDS ORDERED: MORPHINE 4 MG/ML SYR ONE (15:20)
[2024-12-29] MEDS ORDERED: APIXABAN 5 MG TABLET ONE (15:20)
--- NOTE | 2024-12-29 17:00 | RAD REPORT ---
EXAMINATION: CTA CHEST PE CLINICAL INDICATION: Male, 59 years old. CHEST PAIN TECHNIQUE: This examination was performed according to an angiographic protocol with 3D post-processi ng. This involves 3D reconstructions, MIPs, volume rendered images and/or shaded surface rendering. One or more of the following dose reduction techniques were used: Automated exposure control, adjustm ent of the mA and/or kV according to patient size, and/or iterative reconstruction. Unless otherwise specified, incidental findings do not require dedicated imaging follow-up. [id number]. COMPARISON: 01/22/2023 FINDINGS: LOWER NECK: Visualized thyroid gland and soft tissues are normal. Prominent upper chest wall venous c ollaterals MEDIASTINUM AND LYMPH NODES: No mediastinal mass or fluid collection. Normal size mediastinal, hilar, and axillary lymph nodes. THORACIC AORTA: No thoracic aortic aneurysm. PULMONARY ARTERIES: Caliber is within normal limits. HEART: Normal heart size. No coronary calcifications.No significant pericardial effusion. LUNGS AND AIRWAYS: No evidence of airspace or interstitial process. No suspicious and/or stable pulmo nary nodules. PLEURA: No pleural effusions. No pneumothorax. OSSEOUS STRUCTURES AND CHEST WALL: Multilevel degenerative changes. No acute fracture. UPPER ABDOMEN: No acute abnormalities. Hepatic steatosis. IMPRESSION: Negative for pulmonary embolism. No other acute process identified in the chest.
--- NOTE | 2024-12-29 17:03 | EDPHYS ---
Physician Documentation [facility] Name: Shoaib Freitas Jr Age: 59 yrs Sex: Male : 1965 Arrival Date: 12/29/2024 Time: 11:19 Bed 20 Private MD: ED Physician Ida Johnson HPI: 12/29 19:14 This 59 yrs old Black Male presents to ER via Ambulatory with complaints of Leg dr5 Swelling - RT, Leg Pain - RT. 19:14 Onset: The symptoms/episode began/occurred 1 week(s) ago. Patient is a 59-year-old male dr5 with history of DVT to right leg, diabetes, hypertension coming in with right lower extremity pain and swelling for the past month. Patient reports that he is on Eliquis and has ran out a week ago. Patient denies chest pain, shortness of breath, abdominal pain, nausea, vomiting, diarrhea. Patient states he needs a refill of his medications.. Historical: - Allergies: 11:50 No Known Allergies; ss - PMHx: 11:50 Deep vein thrombosis; diabetes mellitus; Gall Stones; history of dialysis; ss Hypertension; Pancreatitis; - PSHx: 11:50 Cholecystectomy; kidney transplant; ss - Immunization history:: Adult Immunizations unknown. - Infectious Disease History:: Denies. - Social history:: Smoking status: unknown. ROS: 19:14 Constitutional: as per hpi dr5 Exam: 19:14 Constitutional: This is a well developed, well nourished patient who is awake, alert, dr5 and in no acute distress. Head/Face: Normocephalic, atraumatic. Eyes: Pupils equal round and reactive to light, extra-ocular motions intact. Lids and lashes normal. Conjunctiva and sclera are non-icteric and not injected. Cornea within normal limits. Periorbital areas with no swelling, redness, or edema. ENT: Nares patent. No nasal discharge, no septal abnormalities noted. Tympanic membranes are normal and external auditory canals are clear. Oropharynx with no redness, swelling, or masses, exudates, or evidence of obstruction, uvula midline. Mucous membranes moist. Chest/axilla: Normal chest wall appearance and motion. Nontender with no deformity. No lesions are appreciated. Cardiovascular: Regular rate and rhythm with a normal S1 and S2. Normal PMI, no JVD. No pulse deficits. Respiratory: Lungs have equal breath sounds bilaterally, clear to auscultation. No rales, rhonchi or wheezes noted. No increased work of breathing, no retractions or nasal flaring. Abdomen/GI: Soft, non-tender, non-distended Back: No spinal tenderness. No costovertebral tenderness. Full range of motion. Skin: Warm, dry with normal turgor. Normal color with no rashes, no lesions, and no evidence of cellulitis. Neuro: Awake and alert, GCS 15, oriented to person, place, time, and situation. Cranial nerves II-XII grossly intact. Motor strength 5/5 in all extremities. Sensory grossly intact. Cerebellar exam normal. Normal gait. 19:14 Musculoskeletal/extremity: Extremities: grossly normal except: noted in the medial aspect of right calf and right macias: swelling, tenderness, ROM: no acute changes, intact in all extremities, Circulation is intact in all extremities. Pulses: Sensation intact. Vital Signs: 11:47 Pulse 88; Resp 16; Temp 98.7; Pulse Ox 97% on R/A; Weight 105.69 kg; Height 5 ft. 11 ss in. ; Pain 8/10; 11:50 BP 136 / 104; ss 13:30 BP 147 / 91; Pulse 81; Resp 18; Pulse Ox 100% on R/A; kj2 14:30 BP 157 / 90; Pulse 77; Resp 18; Pulse Ox 100% on R/A; kj2 15:30 BP 160 / 97; Pulse 79; Resp 20; Pulse Ox 98% on R/A; kj2 16:31 BP 146 / 78; Pulse 78; Resp 18; Pulse Ox 100% on R/A; kj2 17:09 BP 153 / 83; Pulse 80; Resp 20; Temp 98; Pulse Ox 100% on R/A; kj2 11:47 Body Mass Index 32.50 (105.69 kg, 180.34 cm) ss 11:47 Pain Scale: Adult ss MDM: 11:27 Medical Screening Exam initiated dr5 19:14 Differential diagnosis: DVT, PE, elevated troponin, NSTEMI, lactic acidosis, anemia. dr5 Data reviewed: vital signs, nurses notes, lab test result(s), cardiac enzymes, troponin i, CBC, white blood cell count, hemoglobin, hematocrit, platelets, electrolytes, sodium, potassium, chloride, serum bicarbonate, BUN, creatinine, serum glucose, Lactate, PTT, PT, EKG, radiologic studies, CT scan, plain films. Consideration of Admission/Observation Escalation of care including admission/observation considered. Admission considered if patient found to have PE and/or right heart strain. I considered the following discharge prescriptions or medication management in the emergency department I discussed and recommended Over The Counter medications, Medications were administered in the Emergency Department. See MAR. Independent interpretation of the following test(s) in the Emergency Department X-Ray: My interpretation is Independent interpretation of x-ray does not reveal pneumonia.. Care significantly affected by the following chronic conditions: DVT, diabetes, hypertension. Care significantly affected by the following Social Determinants of Health: Poor access to healthcare and/or lack of insurance, Poor access to transportation, Problems related to employment. Scoring Tools HEART Score: History: ECG: Age: Risk Factors: 1 or 2 risk factors (1), Troponin: Total Score = 2. Counseling: I had a detailed discussion with the patient and/or guardian regarding the historical points, exam findings, and any diagnostic results supporting the discharge/admit diagnosis, the presence of at least one elevated blood pressure reading (>120/80) during this emergency department visit, lab results, radiology results, the need for outpatient follow up, for definitive care, a family practitioner, to return to the emergency department if symptoms worsen or persist or if there are any questions or concerns that arise at home. Medication response: Morphine, Zofran, Eliquis. Response to treatment: the patient's symptoms have resolved after treatment, the patient is now symptom free. Special discussion: Based on the patient's history, exam, and Dx evaluation, there is no indication for emergent intervention or inpatient Tx. It is understood by the patient/guardian that if the Sx's persist or worsen they need to return immediately for re-evaluation. I discussed with the patient/guardian in detail that at this point there is no indication for admission to the hospital. It is understood, however, that if the symptoms persist or worsen the patient needs to return immediately for re-evaluation. Based on the history and exam findings, there is no indication for further emergent testing or inpatient evaluation. I discussed with the patient/guardian the need to see the primary care provider for further evaluation of the symptoms. ED course: All labs and CT scan results and chest x-ray results were printed and given to patient to take with him to primary care doctor. Will give patient Eliquis here as well as refill. No PE noted on CT PE. All questions answered. Patient is agreeable to plan. Strict ER precautions given for sudden chest pain, shortness of breath, or any other concerns.. 12/29 11:58 Order name: BNP; Complete Time: 14:36 [facility] 12/29 11:58 Order name: Blood Culture Adult (2) dr5 12/29 11:58 Order name: CBC with Diff; Complete Time: 14:36 [facility] 12/29 11:58 Order name: CMP; Complete Time: 14:36 [facility] 12/29 11:58 Order name: Lactate w/ 2H reflex if indic.; Complete Time: 14:36 [facility] 12/29 11:58 Order name: Protime (+inr); Complete Time: 14:36 dr5 12/29 11:58 Order name: Ptt, Activated; Complete Time: 14:36 [facility] 12/29 11:58 Order name: Troponin HS; Complete Time: 14:36 [facility] 12/29 13:46 Order name: Glucose, Ancillary Testing; Complete Time: 13:49 [facility] 12/29 11:58 Order name: US Extremity Venous Unilateral Ltd; Complete Time: 15:09 [facility] 12/29 15:14 Order name: CT Chest For PE Angio; Complete Time: 17:02 [facility] 12/29 11:58 Order name: EKG; Complete Time: 11:58 dr5 12/29 11:58 Order name: Accucheck; Complete Time: 13:36 [facility] 12/29 11:58 Order name: Cardiac monitoring; Complete Time: 13:31 [facility] 12/29 11:58 Order name: EKG - Nurse/Tech; Complete Time: 13:31 [facility] 12/29 11:58 Order name: IV Saline Lock - Large Bore; Complete Time: 13:49 [facility] 12/29 11:58 Order name: Labs collected and sent; Complete Time: 13:51 [facility] 12/29 11:58 Order name: O2 Per Protocol; Complete Time: 13:31 dr5 12/29 11:58 Order name: O2 Sat Monitoring; Complete Time: 13:31 [facility] 12/29 11:58 Order name: Vital Signs; Complete Time: 13:31 dr5 EC:25 Rate is 81 beats/min. Rhythm is regular. QRS [place] is Normal. RI interval is normal at dr5 154 msec. QRS interval is normal at 98 msec. QT interval is normal at 376 msec. Clinical impression: Normal ECG and No evidence of ischemia. Administered Medications: 14:17 Drug: NS 0.9% IV 1000 ml IV at 1000 ml once; to be given as a bolus over 60 minutes kj2 Route: IV; Rate: 1000 ml; Site: right antecubital; 17:11 Follow up: IV Status: Completed infusion; IV Intake: 1000ml kj2 15:28 Drug: Ondansetron IVP 4 mg IVP once; over 2 minutes Route: IVP; Site: right antecubital;kj2 17:11 Follow up: Response: No adverse reaction kj2 15:28 Drug: Eliquis PO 5 mg PO once Route: PO; kj2 17:10 Follow up: Response: No adverse reaction kj2 15:29 Drug: NS 0.9% IV 1000 ml IV at 1000 ml once; to be given as a bolus over 60 minutes kj2 Route: IV; Rate: 1000 ml; Site: right antecubital; 17:11 Follow up: IV Status: Completed infusion kj2 15:29 Drug: morphine IVP or IV 4 mg IVP once over 4 mins Route: IVP; Infused Over: 4 mins; kj2 Site: right antecubital; 16:15 Follow up: Response: No adverse reaction kj2 Disposition: 19:16 Co-signature as Attending Physician, Ida Johnson MD I reviewed the patient's care gb1 provided by the Advanced Practice Provider and agree with the diagnosis and treatment plan. Disposition Summary: 12/29/24 17:02 Discharge Ordered Notes: Location: Home dr5 Condition: Stable dr5 Diagnosis - Acute embolism and thrombosis of deep veins of lower extremity dr5 Followup: dr5 - With: Emergency Department - When: As needed - Reason: Worsening of condition Followup: dr5 - With: Private Physician - When: 1 - 2 days - Reason: Recheck today's complaints, Continuance of care, Re-evaluation by your physician Discharge Instructions: - Discharge Summary Sheet dr5 - Cellulitis, Adult dr5 - Deep Vein Thrombosis dr5 Forms: - Medication Reconciliation Form dr5 - Antibiotic Education dr5 - Prescription Opioid Use dr5 - Patient Portal Instructions dr5 - Leadership Thank You Letter dr5 - Work release form ar8 Prescriptions: - Eliquis 5 mg Oral tablet - take 1 tablet ORAL route 2 times per day for 30 days; 60 tablet; Refills: 0, dr5 Product Selection Permitted - Cephalexin 500 mg Oral Capsule - take 1 capsule ORAL route every 12 hours for 10 days; 20 capsule; Refills: 0, dr5 Product Selection Permitted - Tramadol 50 mg Oral Tablet - take 1 tablet ORAL route every 8 hours as needed; 12 tablet; Refills: 0, dr5 Product Selection Permitted Signatures: Dispatcher [employer] Tere De RN RN ss Ida Johnson MD MD gb1 Landy Simons RN RN kj2 [facility], SE[employer]C [employer]ER-Cdr5 Corrections: (The following items were deleted from the chart) 11:50 11:50 PMHx: kidney transplant; ss
--- NOTE | 2024-12-29 17:03 | ER ---
Nurse's Notes [facility] Name: Shoaib Freitas Jr Age: 59 yrs Sex: Male : 1965 Arrival Date: 12/29/2024 Time: 11:19 Bed 20 Private MD: Diagnosis: Acute embolism and thrombosis of deep veins of lower extremity Presentation: 12/29 11:47 Chief complaint: Patient states: Out of blood Xarelto x 1 week. Pt reports increased ss swelling to R leg x 1 month. Diagnosed with DVT to RLE in April. Coronavirus screen: Client denies travel out of the [place] in the last 14 days. Ebola Screen: Patient denies exposure to infectious person. Patient denies travel to an Ebola-affected area in the 21 days before illness onset. Initial Sepsis Screen: Does the patient meet any 2 criteria? No. Patient's initial sepsis screen is negative. Does the patient have a suspected source of infection? No. Patient's initial sepsis screen is negative. Risk Assessment: Do you want to hurt yourself or someone else? Patient reports no desire to harm self or others. Onset of symptoms was November 2024. 11:47 Method Of Arrival: Ambulatory ss 11:47 Acuity: COBY 3 ss Historical: - Allergies: 11:50 No Known Allergies; ss - PMHx: 11:50 Deep vein thrombosis; diabetes mellitus; Gall Stones; history of dialysis; ss Hypertension; Pancreatitis; - PSHx: 11:50 Cholecystectomy; kidney transplant; ss - Immunization history:: Adult Immunizations unknown. - Infectious Disease History:: Denies. - Social history:: Smoking status: unknown. Screenin:15 [facility] ED Fall Risk Assessment (Adult) History of falling in the last 3 months, kj2 including since admission No falls in past 3 months (0 pts) Confusion or Disorientation No (0 pts) Intoxicated or Sedated No (0 pts) Impaired Gait No (0 pts) Mobility Assist Device Used No (0 pt) Altered Elimination No (0 pt) Score/Fall Risk Level 0 - 2 = Low Risk Maintained a safe environment, Hourly rounding (assess needs \\T\\ fall precautionary measures) done. Abuse screen: Denies threats or abuse. Denies injuries from another. Nutritional screening: No deficits noted. Tuberculosis screening: No symptoms or risk factors identified. Assessment: 13:15 General: Appears in no apparent distress. Behavior is cooperative. Pain: Complains of kj2 pain in right leg. Neuro: Level of Consciousness is awake, alert, Oriented to person, place, time, situation. Cardiovascular: Patient's skin is warm and dry. Respiratory: Airway is patent Respiratory effort is even, unlabored. GI: No signs and/or symptoms were reported involving the gastrointestinal system. : No signs and/or symptoms were reported regarding the genitourinary system. 13:36 Reassessment: blood glucose 284. kj2 13:46 Reassessment: Patient appears in no apparent distress at this time. Patient and/or kj2 family updated on plan of care and expected duration. Pain level reassessed. Patient is alert, oriented x 3, equal unlabored respirations, skin warm/dry/pink. 15:00 Reassessment: Patient appears in no apparent distress at this time. Patient and/or kj2 family updated on plan of care and expected duration. Pain level reassessed. Patient is alert, oriented x 3, equal unlabored respirations, skin warm/dry/pink. 16:00 Reassessment: Patient appears in no apparent distress at this time. Patient and/or kj2 family updated on plan of care and expected duration. Pain level reassessed. Patient is alert, oriented x 3, equal unlabored respirations, skin warm/dry/pink. 17:09 Reassessment: Patient appears in no apparent distress at this time. Patient and/or kj2 family updated on plan of care and expected duration. Pain level reassessed. Patient is alert, oriented x 3, equal unlabored respirations, skin warm/dry/pink. Vital Signs: 11:47 Pulse 88; Resp 16; Temp 98.7; Pulse Ox 97% on R/A; Weight 105.69 kg; Height 5 ft. 11 ss in. ; Pain 8/10; 11:50 BP 136 / 104; ss 13:30 BP 147 / 91; Pulse 81; Resp 18; Pulse Ox 100% on R/A; kj2 14:30 BP 157 / 90; Pulse 77; Resp 18; Pulse Ox 100% on R/A; kj2 15:30 BP 160 / 97; Pulse 79; Resp 20; Pulse Ox 98% on R/A; kj2 16:31 BP 146 / 78; Pulse 78; Resp 18; Pulse Ox 100% on R/A; kj2 17:09 BP 153 / 83; Pulse 80; Resp 20; Temp 98; Pulse Ox 100% on R/A; kj2 11:47 Body Mass Index 32.50 (105.69 kg, 180.34 cm) ss 11:47 Pain Scale: Adult ss ED Course: 11:23 Patient arrived in ED. cj3 11:26 [facility] FNP-C is [facility]. dr5 11:26 Ida Johnson MD is Attending Physician. dr5 11:50 Triage completed. ss 11:50 Arm band placed on left wrist. ss 12:30 Missed attempt(s): 22 gauge in right forearm. Bleeding controlled, band aid applied, bc6 catheter tip intact. 12:34 Missed attempt(s): 20 gauge in left antecubital area. Bleeding controlled, band aid bc6 applied, catheter tip intact. 13:13 Landy Simons, RN is Primary Nurse. kj2 13:15 Patient has correct armband on for positive identification. Bed in low position. Call kj2 light in reach. Provided Education on: call light. 13:32 EKG done, by survey data technician. reviewed by [facility]. ts3 13:39 Accessed peripheral vein via ultrasound, utilizing dynamic ultrasound technique using ss 20G Nexia IV catheter ,sterile technique, per hospital protocol. Clean \\T\\ dry. Dressing intact. Good blood return. Flushes easily. 20 gauge 1.75". 14:16 US Extremity Venous Unilateral Ltd In Process Unspecified. EDMS 16:41 CT Chest For PE Angio In Process Unspecified. EDMS 17:10 No provider procedures requiring assistance completed. IV discontinued, intact, kj2 bleeding controlled, No redness/swelling at site. Pressure dressing applied. Administered Medications: 14:17 Drug: NS 0.9% IV 1000 ml IV at 1000 ml once; to be given as a bolus over 60 minutes kj2 Route: IV; Rate: 1000 ml; Site: right antecubital; 17:11 Follow up: IV Status: Completed infusion; IV Intake: 1000ml kj2 15:28 Drug: Ondansetron IVP 4 mg IVP once; over 2 minutes Route: IVP; Site: right antecubital;kj2 17:11 Follow up: Response: No adverse reaction kj2 15:28 Drug: Eliquis PO 5 mg PO once Route: PO; kj2 17:10 Follow up: Response: No adverse reaction kj2 15:29 Drug: NS 0.9% IV 1000 ml IV at 1000 ml once; to be given as a bolus over 60 minutes kj2 Route: IV; Rate: 1000 ml; Site: right antecubital; 17:11 Follow up: IV Status: Completed infusion kj2 15:29 Drug: morphine IVP or IV 4 mg IVP once over 4 mins Route: IVP; Infused Over: 4 mins; kj2 Site: right antecubital; 16:15 Follow up: Response: No adverse reaction kj2 Medication: 17:10 VIS not applicable for this client. kj2 Intake: 17:11 IV: 1000ml; Total: 1000ml. kj2 Outcome: 17:02 Discharge ordered by . vivi 17:10 Discharged to home ambulatory, kj2 17:10 Condition: stable 17:10 Discharge instructions given to patient, Instructed on discharge instructions, follow up and referral plans. Demonstrated understanding of instructions, follow-up care, 17:21 Patient left the ED. kj2 Signatures: Dispatcher [employer] EDMS Tere Mixon RN RN Charleen Quiles bc6 Landy Simons RN RN kj2 [facility], BURN TABLE OPERATOR-C BURN TABLE OPERATOR-5 Jemima Posey3 Karla Akhtar ts3 Corrections: (The following items were deleted from the chart) 11:50 11:50 PMHx: kidney transplant; [facility]
[2024-12-29 17:57] VITALS: O2SAT 100
[2024-12-29 17:58] VITALS: BP 153/83; TEMP 98
== END 2024-12-29 17:21 | disposition home or self-care (01) ==
LOC: ER 11:19
DX: I82.401 Acute embolism and thrombosis of unspecified deep veins of right lower extremity (principal); Z86.718 Personal history of other venous thrombosis and embolism; Z79.01 Long term (current) use of anticoagulants
CPT/HCPCS: 96361; 93005; 87040 ×2; 85025; 36415; 85610; 82947; 83605; 85730; 84484; 80053; 83880; 71275; 93971; 96375; 96374; 99285; Q9967; J2405; J7030 ×2